=== PATIENT | female | born 1940 | race Caucasian/White ===

== ENCOUNTER 2017-05-27 09:51 | Outpatient (RCR) | payer MEDICARE, SELFPAY ==
[2017-05-27 10:50] LABS: Prothrombin Time (Protime)PT. 21.6 SECONDS (11.7-14.9)
== END 2017-05-27 09:52 | disposition home or self-care (01) ==
LOC: LAB 09:51
DX: Z79.01 Long term (current) use of anticoagulants (principal)
CPT/HCPCS: 36415; 85610

== ENCOUNTER 2017-06-16 11:47 | Outpatient (RCR) | payer MEDICARE, SELFPAY ==
[2017-06-16 12:47] LABS: International Normalized Ratio 1.9; Prothrombin Time (Protime)PT. 20.9 SECONDS (11.7-14.9)
== END 2017-06-16 15:00 | disposition home or self-care (01) ==
LOC: LAB 11:47
DX: Z79.01 Long term (current) use of anticoagulants (principal)
CPT/HCPCS: 36415; 85610

== ENCOUNTER → 2017-08-03 08:29 | Outpatient (CLI) | payer MEDICARE, SELFPAY ==
[2017-08-03 08:45] VITALS: BP 152/79; PULSE 92; RESP 16; TEMP 36.2; O2SAT 95; BMI 32.3
[2017-08-03] MEDS: Cosyntropin 0.25 MG Vial IV (08:55)
[2017-08-03 09:07] LABS: Hematocrit 39.6 % (37-47); Hemoglobin 12.1 g/dl (12.0-15.0); Mean Corp Hgb Conc 30.6 g/gl (32-36); Mean Corpuscular Hgb 30.3 pg (27.0-32.0); Mean Corpuscular Volume 99.2 fL (81-99); Mean Platelet Vol. 9.7 fl (6.2-12.0); Platelet Count 325 K/mm3 (150-450); RBC Distribution Width CV 14.8 % (11.6-14.6); RBC Distribution Width SD 52.5 fl (35.1-43.9); Red Blood Count 3.99 M/mm3 (4.2-5.4); White Blood Count 6.9 K/mm3 (4.4-11.0)
[2017-08-03 09:08] LABS: Scan Indicated on CBC? Y/N NO
[2017-08-03 09:31] LABS: Albumin, Serum 2.9 g/dL (3.2-5.0); BUN 25 mg/dL (7-18); BUN/Creat Ratio 15.8 RATIO (10-20); Calcium,Total 8.7 mg/dL (8.5-10.1); Chloride 102 mmol/L (98-107); Creatinine, Serum 1.58 mg/dL (0.55-1.02); EST Glomerular Filtration Rate 34 mL/min (>60); Est Glom Filt Rate - Afr Amer 41 mL/min (>60); Estimated Creatinine Clearance 33.62 ml/min; Glucose 102 mg/dL (74-106); Phosphorus 2.3 mg/dL (2.5-4.9); Potassium 3.6 mmol/L (3.5-5.1); Sodium Level 142 mmol/L (136-145)
[2017-08-03 09:56] LABS: Vitamin D,25 Hydroxy 61.7 ng/mL (29.95-100.01)
[2017-08-03 10:56] LABS: Protein, Urine (Random) 30.7 mg/dL (<11.9); Protein:Creat Ratio 98 mg/g CRE (0-200)
== END ==
PROVIDERS: Internal Medicine Nephrology; Visit Provider Internal Medicine Endocrinology, Diabetes & Metabolism
DX: E27.40 Unspecified adrenocortical insufficiency (principal); N18.3 Chronic kidney disease, stage 3 (moderate); E55.9 Vitamin D deficiency, unspecified
CPT/HCPCS: 96374; 80069; 82306; 82533; 82570; 83970; 84156; 85027; A4216; J0834

== ENCOUNTER 2017-08-24 07:53 | Emergency (ER) | payer MEDICARE, SELFPAY ==
[2017-08-24] VITALS (7 sets, daily range): BP systolic 130–167; BP diastolic 64–91; PULSE 128–134; RESP 17–30; TEMP 37.3–37.9; O2SAT 94–97; BMI 31.8
--- NOTE | 2017-08-24 08:22 | CT_ITS ---
STUDY: CT ABDOMEN AND PELVIS WITH CONTRAST REASON FOR EXAM: Female, 77 years old. Diffuse abdominal pain. RADIATION DOSAGE (If Supplied By Facility): CTDIvol = ( 11.92 ) mGy, DLP = ( 889.99 ) mGycm TECHNIQUE: Transaxial images were obtained from the dome of the diaphragm to the symphysis pubis without oral contrast. 80ML ml of Isovue 300 contrast was administered. Sagittal and coronal images were reconstructed. Individualized dose optimization techniques were used for this CT. COMPARISON: Comparison is made with prior study dated December 29, 2016. FINDINGS: Mild degree of increased markings at the lung bases suggestive of a bibasilar atelectasis. Coronary artery calcification. Normal liver. Normal gallbladder and extrahepatic biliary system. Normal spleen. 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 Normal pancreas. Normal bilateral adrenal glands. 3 mm nonobstructive calculus in the lower pole calyx of the right kidney. Normal left kidney. Normal visualized stomach. Normal small intestine. There is evidence of sigmoid diverticulosis. Small amount of free intraperitoneal air. There is also evidence of air in the subcutaneous tissues along the lower anterior abdominal wall. There is evidence of a 8 cm x 6.9 cm x 8 cm inhomogeneous collection of soft tissue density and air in the central pelvis. This is adjacent to the sigmoid colon. Perforated diverticulitis or carcinoma should be ruled out. The small amount of air is also seen within the anterior aspect of the urinary bladder. A colovesical fistula should be ruled out. The appendix is visualized and appears normal. There is diffuse atherosclerotic calcification of the abdominal aorta and its major visceral branches, without a demonstrated aneurysm. Normal inferior vena cava. Normal retroperitoneum. Normal urinary bladder. Normal abdominal wall. Prior right total hip replacement. Prior fusion at the L4-L5 level with multilevel disc space narrowing and degeneration. There is straightening of the normal lumbar lordosis. CT/Abdomen/Pelvis WITH Contrast IMPRESSION: Small amount of free air in the peritoneal cavity as well as within the deep subcutaneous tissues overlying the lower anterior abdominal wall. 8 cm x 6.9 cm x 8 cm inhomogeneous collection of soft tissue air in the central pelvis. Abscess from locally bowel perforation should be ruled out. A small amount of air is seen in the anterior aspect of the urinary bladder suggestive of a colovesical fistula. Electronically Signed: Adin Lara MD at 10:44 EDT Tel [phone], Service support ,
--- NOTE | 2017-08-24 08:24 | RAD_ITS ---
STUDY: X-RAY - LEFT FOOT CLINICAL: Female, 77 years old. Pain. TECHNIQUE: view(s) of the foot. COMPARISON: None. FINDINGS: There is an enthesophyte involving the posterior superior calcaneus at the site of insertion of the Achilles tendon. Small plantar spur. Normal visualized subtalar, talonavicular, calcaneocuboid, tarsal and tarsometatarsal articulations. Normal metatarsi. There is degenerative arthrosis of the metatarsophalangeal joint of the hallux with a hallux valgus deformity. There is a bipartite tibial sesamoid. Normal interphalangeal joint of the great toe. Normal phalanges of the great toe. Normal second through fifth metatarsophalangeal joints. Normal interphalangeal joints and phalanges of the lesser toes. The soft tissue structures are unremarkable. RAD/Foot min 3 Views IMPRESSION: Hallux valgus deformity. Electronically Signed: Adin Lara MD at 10:45 EDT Tel [phone], Service support ,
--- NOTE | 2017-08-24 08:24 | EKG12_ITS ---
Test Reason : ABD PAIN Blood Pressure : / mmHG Vent. Rate : 127 BPM Atrial Rate : 127 BPM P-R Int : 128 ms QRS Dur : 080 ms QT Int : 312 ms P-R-T Axes : 050 -43 061 degrees QTc Int : 453 ms Sinus tachycardia with occasional Premature ventricular complexes Left axis deviation Abnormal ECG Confirmed by CLAIRE MIN, JAYESH ([id number]), associate editor BALJINDER DAMON ([id number] on 08/26/2017 11:31:51 AM Referred By: DORIS Confirmed By:JAYESH RANGEL MD
--- NOTE | 2017-08-24 08:28 | ED.DCSUM_ITS ---
- ER Visit Summary Date of Service: 08/24/17 Chief Complaint: Multiple complaints History of Present Illness: The patient is a 77 F who presents with multiple complaints. She states she began with gout 5 days ago. She states that she also has a history of rheumatoid arthritis. She states that she had a sharp pain in the top of her left foot which radiated up her left leg. She began to have chills late that night. She then had a fever of 101 on Tuesday, 4 days ago. She also developed diffuse nonfocal abdominal pain. She reports nausea without vomiting. She denies diarrhea. She also complains of congestion and cough. She denies chest pain or shortness of breath. She has been taking Anacin for pain. She is also on warfarin. She is very concerned that she has internal bleeding. However she denies any hematemesis hematochezia bright red blood per rectum or melena. She is just concerned that this may be the cause of her pain given that she is on anticoagulation. She has a history of a hernia repair but no other abdominal surgeries. Physical Examination: Temperature 99.2 heart rate 128 afebrile Patient resting comfortably in no distress Moist mucous membranes Heart regular rhythm tachycardia I do not appreciate murmur gallop or rub Lungs are clear I do not appreciate rales rhonchi or wheezes The abdomen is soft nondistended but she does have diffuse abdominal tenderness no guarding no rebound Patient has tenderness of the left foot I do not appreciate any erythema there is no soft tissue swelling no physical findings suggestive of gout her calf is soft and nontender she has an easily palpable dorsalis pedis pulse with brisk capillary refill and normal sensation to light touch Test Results: KG shows sinus rhythm at a rate of 127. Laboratory studies notable for white blood cell count 15.9. Lactic acid is normal. Chest x-ray shows no acute process. Foot x-ray shows a hallux valgus deformity no acute abnormality. CT the abdomen and pelvis does show free air with subcutaneous air in the lower anterior abdominal wall as well as an 8 x 6.9 x 8 cm soft tissue collection with air possible abscess from local bowel perforation. There is also a small amount of air in the bladder which is concerning for possible colovesicular fistula. Emergency Department Course and Treatment: Was treated with IV fluids. She was given IV Phenergan. She did not want any opiate analgesics. On recheck she was having chills and repeat temperature was 100.3. The Zosyn was ordered. Although she reports Augmentin allergy her reaction was just nausea. She never had any rash breathing difficulty or waxes. She requested transfer to [place]. I spoke to [facility] transfer line and the patient will be transferred to that facility ER to ER for surgical evaluation Treatment Plan: [] Disposition: Transfer Impression: Intra-abdominal free air Possible intra-abdominal abscess Systemic inflammatory response syndrome This note was generated with [employer] dictation software. It may contain incorrect words, spelling, and punctuation that were not noted in review of the chart prior to signing ED Disposition - Plan for ED Patient: Chief Complaint: Abd Pain Referrals: [facility] Doctor,Out of [Primary Care Provider] -
[2017-08-24 08:32] LABS: Absolute Lymphocyte Count 1.23 X10^3/ul (0.83-4.51); Absolute Neutrophil Count 13.7 X10^3/uL (2.0-7.7); Basophil# 0.01 X10^3/uL; Basophil% 0.1 % (0-1); Eosinophil# 0.07 X10^3/uL; Eosinophils% 0.4 % (0-5); Hematocrit 36.8 % (37-47); Hemoglobin 11.2 g/dl (12.0-15.0); Lymphocyte # 1.23 X10^3/ul (4.0); Lymphocyte % 7.7 % (19-41); Mean Corp Hgb Conc 30.4 g/gl (32-36); Mean Corpuscular Volume 95.3 fL (81-99); Mean Platelet Vol. 9.3 fl (6.2-12.0); Monocyte% 5.6 % (0-10); Neutrophil # 13.69 X10^3/uL (2.7-7.7); POSITIVE COUNT NO; POSITIVE DIFFERENTIAL NO; POSITIVE MORPHOLOGY NO; Platelet Count 372 K/mm3 (150-450); RBC Distribution Width CV 15.3 % (11.6-14.6); RBC Distribution Width SD 53.3 fl (35.1-43.9); Red Blood Count 3.86 M/mm3 (4.2-5.4); White Blood Count 15.9 K/mm3 (4.4-11.0)
[2017-08-24 08:47] LABS: ALB/GLOB Ratio 0.4 RATIO (0.9-2.4); AST(SGOT) 31 U/L (15-37); Alanine Aminotransfer ALT/SGPT 49 U/L (13-56); Alkaline Phosphatase 173 U/L (45-117); Anion Gap 8 (5-15); BUN 34 mg/dL (7-18); BUN/Creat Ratio 23.6 RATIO (10-20); Calcium,Total 8.3 mg/dL (8.5-10.1); Chloride 106 mmol/L (98-107); Creatinine, Serum 1.44 mg/dL (0.55-1.02); EST Glomerular Filtration Rate 37 mL/min (>60); Est Glom Filt Rate - Afr Amer 45 mL/min (>60); Estimated Creatinine Clearance 36.43 ml/min; Globulin 4.6 g/dL (2.2-4.2); Glucose 91 mg/dL (74-106); Lipase 105 U/L (73-393); Potassium 3.3 mmol/L (3.5-5.1); Protein, Total 6.6 g/dL (6.4-8.2); Sodium Level 142 mmol/L (136-145)
[2017-08-24] MEDS: 0.9% Normal Saline 1,000 ML 1000 ML IV (09:10)
[2017-08-24] MEDS: proMETHazine 25 MG/ML Syringe 6.25 MG IV (09:11)
[2017-08-24 09:17] LABS: Lactic Acid 1.6 mmol/L (0.4-2.0)
--- NOTE | 2017-08-24 10:06 | CASEMGMT ---
Social Work Note SW in to complete initial assessment with the pt as she is a probable admission. Introduced self and role at [facility]. The pt reports to live alone in a one-story home with 1 step for entry out front and a ramp for entry from the garage. Denies access issues and DME consists of a walker, cane and wheel chair. Pt is independent with her ADL's and still drives. Denies having HHC. Denies substance abuse or mental health hx. States she does have a living will and HCPOA and that her son is her HCPOA. Son lives in [place]. Unable to bring in LW or HCPOA at this time. Denies anticipated needs at discharge. Pt made aware that RN CM will follow on floor if admitted. Jodi Mehta, MUSICAL STRING MAKER, SAP BW CONSULTANT
--- NOTE | 2017-08-24 10:26 | RAD_ITS ---
STUDY: X-RAY CHEST REASON FOR EXAM: Female, 77 years old. Cough. Abdominal pain. TECHNIQUE: AP and lateral views of the chest. COMPARISON: Comparison is made with prior study dated March 08, 2014. FINDINGS: Scattered calcified granulomas. There is no demonstrated pleural abnormality. Normal size heart. Normal mediastinum and kina. Normal visualized pulmonary arteries. There is atherosclerotic tortuosity of the aortic arch and descending thoracic aorta. Normal visualized thoracic spine. There is degenerative osteoarthritis of the bilateral shoulders. There is no demonstrated abnormality of the visualized soft tissue structures of the upper abdomen. RAD/Chest PA and Lateral IMPRESSION: No acute abnormality is seen. Electronically Signed: Adin Lara MD at 10:46 EDT Tel [phone], Service support ,
--- NOTE | 2017-08-24 11:06 | NURSING ---
CALLED [facility]
--- NOTE | 2017-08-24 11:18 | NURSING ---
[facility] ER REPORT [phone] CARMONA, SURGEON
[2017-08-24 11:21] LABS: International Normalized Ratio 2.3; Prothrombin Time (Protime)PT. 25.7 SECONDS (11.7-14.9)
[2017-08-24] MEDS: Ondansetron 4 MG/2 ML Vial IV (12:09)
--- NOTE | 2017-08-24 12:11 | NURSING ---
CALLED [facility] FOR TRANSORT
--- NOTE | 2017-08-24 12:38 | ED.RN ---
1230[facility] care here for transport to [facility]. Report given. Saran completed and care transferred to crew. NO change in patient status.
== END 2017-08-24 12:42 | disposition short-term general hospital (02) ==
PROVIDERS: Emergency Provider Emergency Medicine
DX: K66.8 Other specified disorders of peritoneum (principal); R65.10 Systemic inflammatory response syndrome (SIRS) of non-infectious origin without acute organ dysfunction; M06.9 Rheumatoid arthritis, unspecified; E27.40 Unspecified adrenocortical insufficiency; M20.12 Hallux valgus (acquired), left foot; R05 Cough; K21.9 Gastro-esophageal reflux disease without esophagitis; Z86.718 Personal history of other venous thrombosis and embolism; Z79.01 Long term (current) use of anticoagulants; Z79.899 Other long term (current) drug therapy
CPT/HCPCS: 36415; 71046; 73630; 74177; 80053; 83605; 83690; 85025; 85610; 87040; 93005; 96361; 96365; 96375; 99284; J7050; Q9967; A4216; J2405

== ENCOUNTER 2017-09-04 22:32 | Emergency (ER) | payer MEDICARE, SELFPAY ==
[2017-09-04 22:34] VITALS: BP 113/74; PULSE 144; RESP 14; TEMP 37; O2SAT 98; BMI 31.8
[2017-09-05] MEDS: 0.9% Normal Saline 1,000 ML 1000 ML IV (00:12)
[2017-09-05 00:13] LABS: Prothrombin Time (Protime)PT. 57.3 SECONDS (11.7-14.9)
[2017-09-05 00:15] LABS: Absolute Lymphocyte Count 1.54 X10^3/ul (0.83-4.51); Absolute Neutrophil Count 16.9 X10^3/uL (2.0-7.7); Basophil% 0.2 % (0-1); Eosinophil# 0.04 X10^3/uL; Eosinophils% 0.2 % (0-5); Hematocrit 30.3 % (37-47); Hemoglobin 9.5 g/dl (12.0-15.0); Lymphocyte # 1.54 X10^3/ul (4.0); Lymphocyte % 7.7 % (19-41); Mean Corp Hgb Conc 31.4 g/gl (32-36); Mean Corpuscular Hgb 30.1 pg (27.0-32.0); Mean Corpuscular Volume 95.9 fL (81-99); Mean Platelet Vol. 9.4 fl (6.2-12.0); Monocyte# 1.24 X10^3/uL; Monocyte% 6.2 % (0-10); Neutrophil # 16.92 X10^3/uL (2.7-7.7); Neutrophil % 85.1 % (47-70); POSITIVE COUNT NO; POSITIVE DIFFERENTIAL NO; POSITIVE MORPHOLOGY NO; Platelet Count 462 K/mm3 (150-450); RBC Distribution Width SD 52.8 fl (35.1-43.9); Red Blood Count 3.16 M/mm3 (4.2-5.4); White Blood Count 19.9 K/mm3 (4.4-11.0)
[2017-09-05 00:16] LABS: Basophil# 0.03 X10^3/uL
[2017-09-05] MEDS: morphine (oral solution) 10MG/0.5ML Syringe 10 MG PO ×2 (00:17→02:33)
[2017-09-05 00:18] LABS: International Normalized Ratio 6.5
--- NOTE | 2017-09-05 00:26 | ED.RN ---
Addendum entered by Cailin Hare 09/05/17 00:28: dr. garcia made aware. Original Note: lab called to report INR 6.5, Dr. Garcia.
[2017-09-05 00:29] LABS: ALB/GLOB Ratio 0.6 RATIO (0.9-2.4); AST(SGOT) 12 U/L (15-37); Alanine Aminotransfer ALT/SGPT 11 U/L (13-56); Albumin, Serum 1.8 g/dL (3.2-5.0); Alkaline Phosphatase 43 U/L (45-117); Anion Gap 11 (5-15); BUN 40 mg/dL (7-18); BUN/Creat Ratio 27.8 RATIO (10-20); Calcium,Total 7.8 mg/dL (8.5-10.1); Chloride 104 mmol/L (98-107); Creatinine, Serum 1.44 mg/dL (0.55-1.02); EST Glomerular Filtration Rate 37 mL/min (>60); Est Glom Filt Rate - Afr Amer 45 mL/min (>60); Estimated Creatinine Clearance 36.38 ml/min; Globulin 3.1 g/dL (2.2-4.2); Glucose 133 mg/dL (74-106); Protein, Total 4.9 g/dL (6.4-8.2); Sodium Level 142 mmol/L (136-145)
--- NOTE | 2017-09-05 00:45 | ED.VISSUMM ---
- ER Visit Summary Date of Service: 09/05/17 Chief Complaint: [] Upper and lower GI bleed History of Present Illness: The patient is a 77 F [] is a hospice patient who presents with upper and lower GI bleed. Hospice PLATE SHEAR OPERATOR is at the bedside reports that she was at the patient's residence when she had a significant bout of hematemesis measuring several 100 cc. This nurse also reports some lower GI bleeding. Patient reportedly had a bowel perforation approximately 10 days ago and patient refused surgery and was subsequently placed on hospice. She also reports at that time she was septic. Patient reportedly continues to take Coumadin despite previous suggestion from physicians to discontinue this. She was previously taking this for a history of CVA. She is refusing medical treatment other than vitamin K and analgesia. She is requesting vitamin K to reverse her Coumadin and she reports she wishes to discontinue Coumadin at this point in her life. She denies chest pain, shortness of breath, abdominal pain. Reports mild abdominal cramping. Physical Examination: [] She is hypotensive in the 90s systolic upon arrival. Heart rate was in the 140s. 77-year-old female no acute distress. Cardiovascular exam is tachycardic with regular rhythm. Lungs are clear to auscultation. Abdomen is soft and nontender. No lower extremity edema. Test Results: [] White blood cell count elevated 19.9. Hemoglobin 9.5. INR measured 6.5. BUN and creatinine measured 40 and 1.49, respectively. Patient refused further testing. Emergency Department Course and Treatment: [] Patient given a 1 L normal saline bolus which improved the heart rate from the 140s to the low 100s. Patient on serial exam did request oral morphine for which she takes at home and was provided 10 mg orally. With her INR measuring 6.5 and her desire to discontinue Coumadin indefinitely, I provided 10 mg of vitamin K intravenously. On final serial exam patient had improvement of symptoms and was requesting discharge and to remain under the care of hospice. Treatment Plan: [] Reverse elevated INR and discharge in the care of hospice. Disposition: [] Discharge, stable. Impression: [] Elevated INR Upper GI bleed Lower GI bleed Vomiting DNR-POSTPARTUM RN This note was generated with [employer] dictation software. It may contain incorrect words, spelling, and punctuation that were not noted in review of the chart prior to signing ED Disposition - Plan for ED Patient: Chief Complaint: GI Bleed Referrals: [facility] Doctor,Out of [Primary Care Provider] -
--- NOTE | 2017-09-05 00:50 | ED.DCSUM_ITS ---
- ER Visit Summary Date of Service: 09/05/17 Chief Complaint: [] Upper and lower GI bleed History of Present Illness: The patient is a 77 F [] is a hospice patient who presents with upper and lower GI bleed. Hospice FLUID DESIGNER is at the bedside reports that she was at the patient's residence when she had a significant bout of hematemesis measuring several 100 cc. This nurse also reports some lower GI bleeding. Patient reportedly had a bowel perforation approximately 10 days ago and patient refused surgery and was subsequently placed on hospice. She also reports at that time she was septic. Patient reportedly continues to take Coumadin despite previous suggestion from physicians to discontinue this. She was previously taking this for a history of CVA. She is refusing medical treatment other than vitamin K and analgesia. She is requesting vitamin K to reverse her Coumadin and she reports she wishes to discontinue Coumadin at this point in her life. She denies chest pain, shortness of breath, abdominal pain. Reports mild abdominal cramping. Physical Examination: [] She is hypotensive in the 90s systolic upon arrival. Heart rate was in the 140s. 77-year-old female no acute distress. Cardiovascular exam is tachycardic with regular rhythm. Lungs are clear to auscultation. Abdomen is soft and nontender. No lower extremity edema. Test Results: [] White blood cell count elevated 19.9. Hemoglobin 9.5. INR measured 6.5. BUN and creatinine measured 40 and 1.49, respectively. Patient refused further testing. Emergency Department Course and Treatment: [] Patient given a 1 L normal saline bolus which improved the heart rate from the 140s to the low 100s. Patient on serial exam did request oral morphine for which she takes at home and was provided 10 mg orally. With her INR measuring 6.5 and her desire to discontinue Coumadin indefinitely, I provided 10 mg of vitamin K intravenously. On final serial exam patient had improvement of symptoms and was requesting discharge and to remain under the care of hospice. Treatment Plan: [] Reverse elevated INR and discharge in the care of hospice. Disposition: [] Discharge, stable. Impression: [] Elevated INR Upper GI bleed Lower GI bleed Vomiting DNR-ENVIRONMENTAL PROTECTION SPECIALIST This note was generated with [employer] dictation software. It may contain incorrect words, spelling, and punctuation that were not noted in review of the chart prior to signing ED Disposition - Plan for ED Patient: Chief Complaint: GI Bleed Referrals: [facility] Doctor,Out of [Primary Care Provider] -
--- NOTE | 2017-09-05 01:43 | ED.DEP ---
ED Disposition - Plan for ED Patient: Disposition: Home or Assisted Living Chief Complaint: GI Bleed Instructions: ED Bleed UGI Stable, Taking?Coumadin Referrals: [facility] Doctor,Out of [Primary Care Provider] -
[2017-09-05 02:37] VITALS: BP 103/62; PULSE 120; RESP 17; O2SAT 95
--- NOTE | 2017-09-05 02:38 | ED.RN ---
DISCHARGE INSTRUCTIONS GIVEN TO AMBULANCE CREW. PT TO INPATIENT HOSPICE FACILITY VIA STRETCHER, IV LEFT INTACT PER NURSES REQUEST.
== END 2017-09-05 02:38 | disposition home or self-care (01) ==
PROVIDERS: Emergency Provider Emergency Medicine
DX: R79.1 Abnormal coagulation profile (principal); K92.2 Gastrointestinal hemorrhage, unspecified; K92.0 Hematemesis; K92.1 Melena; I95.9 Hypotension, unspecified; R19.7 Diarrhea, unspecified; I10 Essential (primary) hypertension; Z51.5 Encounter for palliative care; Z79.899 Other long term (current) drug therapy; Z79.01 Long term (current) use of anticoagulants; Z86.711 Personal history of pulmonary embolism; Z86.718 Personal history of other venous thrombosis and embolism; Z86.73 Personal history of transient ischemic attack (TIA), and cerebral infarction without residual deficits
CPT/HCPCS: 80053; 85025; 85610; 96361; 96365; 99285; J2405; J3490

== ENCOUNTER 2017-09-17 09:18 | Outpatient (CLI) | payer MEDICARE, SELFPAY ==
[2017-09-17] VITALS (7 sets, daily range): BP systolic 127–156; BP diastolic 69–86; PULSE 98–106; RESP 16–18; TEMP 36.6–37.2; O2SAT 98–100; BMI 31.8
[2017-09-17] MEDS: 0.9% NaCl Peripheral Flush Adult/Peds IV ×2 (11:26→13:41)
[2017-09-17] MEDS: Furosemide 20 MG/2 ML VIAL IV (13:41)
== END 2017-09-17 17:10 | disposition skilled nursing facility (03) ==
LOC: MEDOUTP 09:20 → PCU 09:20
PROVIDERS: Visit Provider Nurse Practitioner Adult Health
DX: D64.9 Anemia, unspecified (principal)
CPT/HCPCS: 86850; 86900; 86920; 86922; P9016; A4216; J1940

== ENCOUNTER 2017-09-18 17:33 | Inpatient (IN) | payer MEDICARE, SELFPAY ==
[2017-09-18] VITALS (9 sets, daily range): BP systolic 132–153; BP diastolic 78–92; PULSE 104–116; RESP 16–22; TEMP 36.9–37.1; O2SAT 97–99; BMI 31.8; BMI 30.6; BMI 31.9
--- NOTE | 2017-09-18 18:19 | EKG12_ITS ---
Test Reason : GENERALILLNESS Blood Pressure : / mmHG Vent. Rate : 109 BPM Atrial Rate : 109 BPM P-R Int : 116 ms QRS Dur : 076 ms QT Int : 334 ms P-R-T Axes : 001 -37 034 degrees QTc Int : 449 ms Sinus tachycardia Left axis deviation Abnormal ECG Confirmed by RICKY MIN, MARCK ([id number]), film and video editor BALJINDER DAMON ([id number]) on 09/21/2017 1:30:15 PM Referred By: MAXI Confirmed By:MARCK GARCÍA MD
--- NOTE | 2017-09-18 18:23 | ED.DCSUM_ITS ---
- ER Visit Summary Date of Service: 09/18/17 Chief Complaint: Bilateral lower extremity DVT History of Present Illness: The patient is a 77 F presented with bilateral lower extremity DVT. This was found on outpatient ultrasound today. She currently lives in assisted living in the nurse practitioner there ordered an ultrasound of her legs due to leg pain. She denies chest pain or shortness of breath. Ultrasound shows acute left lower extremity DVT involving the left common femoral through calf veins, acute right lower extremity DVT involving the right common, distal and profunda femoral, and popliteal veins. Patient has a history of previous DVT with PE. She was previously on Coumadin. On August 24 she sustained a perforated bowel and was septic. She was at [facility] at the time. She declined surgery and went home. 2 weeks later she developed an upper GI bleed. At that time she was in hospice and her Coumadin was stopped. She has been doing well and was discharged and is no longer in hospice. She received 2 units of blood yesterday secondary to generalized weakness. Physical Examination: Vitals are stable. Patient is afebrile. Alert no acute distress. HEENT exam is unremarkable. Neck is supple. Lungs are clear and equal bilaterally. Heart is regular and tachycardic Abdomen is soft nontender nondistended. Extremities symmetric edema, normal distal pulses Skin is warm and dry. No focal neurologic deficit. Remainder of exam is unremarkable. Emergency Department Course and Treatment: EKG is sinus tachycardia rate of 109. CBC shows a hemoglobin of 10.2. Chemistries show creatinine 1.28. INR is 1.2. Troponin is negative. She is given IV fluids. CTA chest shows acute segmental pulmonary emboli in the right upper and lower lobes. Acute subsegmental pulmonary emboli in the lingula and left lower lobe. She was started on a heparin drip. Discussed with the hospitalist for admission. Disposition: Admission Impression: Bilateral pulmonary embolism, bilateral lower extremity DVT This note was generated with [employer] dictation software. It may contain incorrect words, spelling, and punctuation that were not noted in review of the chart prior to signing ED Disposition - Plan for ED Patient: Chief Complaint: General Illness Referrals: [facility] Doctor,Out of [Primary Care Provider] -
[2017-09-18 18:54] LABS: Prothrombin Time (Protime)PT. 14.9 SECONDS (11.7-14.9)
[2017-09-18 19:03] LABS: Absolute Lymphocyte Count 0.58 X10^3/ul (0.83-4.51); Hematocrit 32.7 % (37-47); Hemoglobin 10.2 g/dl (12.0-15.0); Lymphocyte # 0.58 X10^3/ul (4.0); Lymphocyte % 6.2 % (19-41); Mean Corp Hgb Conc 31.2 g/gl (32-36); Mean Corpuscular Hgb 29.5 pg (27.0-32.0); Mean Corpuscular Volume 94.5 fL (81-99); Mean Platelet Vol. 8.8 fl (6.2-12.0); Monocyte# 0.71 X10^3/uL; Monocyte% 7.6 % (0-10); Neutrophil # 8.01 X10^3/uL (2.7-7.7); Neutrophil % 85.9 % (47-70); Platelet Count 230 K/mm3 (150-450); RBC Distribution Width CV 18.2 % (11.6-14.6); RBC Distribution Width SD 60.6 fl (35.1-43.9); Red Blood Count 3.46 M/mm3 (4.2-5.4); White Blood Count 9.3 K/mm3 (4.4-11.0)
[2017-09-18 19:13] LABS: Differential Indicated SCAN CRITERIA MET; POSITIVE COUNT NO; POSITIVE DIFFERENTIAL YES; POSITIVE MORPHOLOGY NO
[2017-09-18 19:14] LABS: Anion Gap 8 (5-15); BUN 15 mg/dL (7-18); BUN/Creat Ratio 11.7 RATIO (10-20); Calcium,Total 8.5 mg/dL (8.5-10.1); Chloride 107 mmol/L (98-107); Creatinine, Serum 1.28 mg/dL (0.55-1.02); EST Glomerular Filtration Rate 43 mL/min (>60); Est Glom Filt Rate - Afr Amer 52 mL/min (>60); Estimated Creatinine Clearance 40.98 ml/min; Glucose 116 mg/dL (74-106); Potassium 4.6 mmol/L (3.5-5.1); Sodium Level 143 mmol/L (136-145)
[2017-09-18 19:15] LABS: International Normalized Ratio 1.2
[2017-09-18 19:16] LABS: Partial Thromboplast Time 20.3 Seconds (24.1-36.2)
[2017-09-18 19:35] LABS: Differential Comment SCANNED
--- NOTE | 2017-09-18 19:40 | CT_ITS ---
STUDY: CTA CHEST REASON FOR EXAM: Female, 77 years old. DVT. Evaluate for pulmonary embolus. RADIATION DOSAGE (If Supplied By Facility): CTDIvol = ( 5.63 ) mGy, DLP = ( 194.22 ) mGycm TECHNIQUE: The examination was performed with the intravenous administration of 100 ml of Isovue 370 contrast material. Post-processing of the angiographic images was performed, with multiplanar reformation and 3D reconstruction. Individualized dose optimization techniques were used for this CT. COMPARISON: 01/05/2014 FINDINGS: There are no pulmonary infiltrates or pleural effusions. There is no pneumothorax. There are acute segmental pulmonary emboli in the right upper and lower lobes. There are subsegmental pulmonary emboli in the lingula and left lower lobe. There is no evidence of thoracic aortic aneurysm or dissection. The heart and pericardium are within normal limits. There is no thoracic lymphadenopathy. There are no destructive osseous lesions. CT/CTA Chest W/WO Contrast IMPRESSION: Acute segmental pulmonary emboli in the right upper and lower lobes Acute subsegmental pulmonary emboli in the lingula and left lower lobe. Clear lungs. N.B. : The above information has been verbally conveyed by Obey Davenport to Dr. Meme Echevarria, Referring Physician, on 09/18/2017 20:37:55 (ET). Electronically Signed: Obey Davenport, at 20:30 EDT Tel , Service support , N.B. : The above information has been verbally conveyed by Obey Davenport to Dr. Meme Echevarria, Referring Physician, on 09/18/2017 20:37:55 (ET).
[2017-09-18] MEDS: 0.9% Normal Saline 1,000 ML 999 ML IV (21:09)
[2017-09-18] MEDS: Enoxaparin 80 MG/0.8 ML Syringe 70 MG SC (21:36)
--- NOTE | 2017-09-18 21:40 | HP.PCM_ITS ---
Problem List (1) History of bowel perforation Status: Chronic (2) History of GI bleed Status: Chronic (3) History of pulmonary embolism Status: Chronic (4) Chronic anemia Status: Chronic (5) Stage III chronic kidney disease Status: Chronic (6) Addisons disease Status: Chronic History of Present Illness Date of Admission: 09/18/17 Chief Complaint: Bilateral leg pain/ache, dry cough. The patient is a 77 year old F with past medical history as mentioned above presented to the emergency room from the assisted living because she was found to have acute bilateral lower extremity DVT on venous Doppler that was done today for bilateral leg pain and ache. The patient mentioned that she has been having bilateral leg pain that has been going on for few days, described as constant ache, 3-4 out of 10 in severity, more on the right leg behind right knee, no aggravating or relieving factors and no associated symptoms. The patient is bedridden for the last month because she had recent history of bowel perforation for which she was sent to [facility] and she refused to go for surgery. During that admission, she had upper and lower GI bleed as she has been on Coumadin which was discontinued. Since that time, she has been bedridden most of her time and not ambulating. She had a history of pulmonary embolism 2 and half years ago and she has been on Coumadin since that time which was discontinued with few weeks ago because of upper and lower GI bleed. She never had upper endoscopy or colonoscopy for the GI bleed. Yesterday, she received blood transfusion 2 units and she felt better in terms of her strength and ambulation and she was able to ambulate with assistance. 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 She has history of arthritis and chronic back pain and she has been using diclofenac for arthritic pain. In the emergency department, she was tachycardic , afebrile, blood pressure was slightly elevated and her pulse ox was maintained on room air. Routine blood work is remarkable for hemoglobin of 10.2 g/dL, creatinine of 1.28. Her troponin is negative. Pro time and INR were normal. EKG revealed normal sinus rhythm without evidence of acute ischemic changes. CTA chest revealed right upper and lower lobe segmental pulmonary emboli, left lower lobe and lingula segmental luminary emboli as well. She is being admitted for acute bilateral lower extremity DVT and acute bilateral pulmonary emboli. Past Medical History Past Medical History (Chronic Problems): Chronic Problems History of bowel perforation (Chronic) History of GI bleed (Chronic) History of pulmonary embolism (Chronic) Chronic anemia (Chronic) Stage III chronic kidney disease (Chronic) Addisons disease (Chronic) Allergies amoxicillin trihydrate [From Augmentin] Adverse Reaction (Verified 08/24/17 07: 55) Upset Stomach diclofenac sodium [From Arthrotec] Adverse Reaction (Verified 08/24/17 07:55) Upset Stomach doxycycline Adverse Reaction (Verified 08/24/17 07:55) Upset Stomach erythromycin base Adverse Reaction (Verified 08/24/17 07:55) Upset Stomach etodolac [From Lodine] Adverse Reaction (Verified 08/24/17 07:55) Upset Stomach flurbiprofen [From Ansaid] Adverse Reaction (Verified 08/24/17 07:55) Upset Stomach misoprostol [From Arthrotec] Adverse Reaction (Verified 08/24/17 07:55) Upset Stomach NSAIDS (Non-Steroidal Anti-Inflamma Adverse Reaction (Verified 09/18/17 17:35) Other potassium clavulanate [From Augmentin] Adverse Reaction (Verified 08/24/17 07:55 ) Upset Stomach rofecoxib [From Vioxx] Adverse Reaction (Verified 08/24/17 07:55) Upset Stomach Home Medications: Ambulatory Orders Medication Instructions Recorded Fluticasone 0.05% [Flonase Nasal 1 spray NASAL DAILY 09/18/17 [place]] Loratadine [Claritin] 10 mg PO DAILY 09/18/17 Lorazepam [Ativan] 0.5 mg PO QHS 09/18/17 Omeprazole [Prilosec] 20 mg PO DAILY 09/18/17 Prednisone 5 mg PO BID 09/18/17 Surgical History: total knee arthroplasty, - - Back surgery. 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 Smoking Status: Never smoker Alcohol: None Drugs: None - *Family History Maternal History Items: No pertinent history Paternal History Items: No pertinent history Review of Systems Constitutional: Denies: Anorexia, Chills, Fever, Weakness Eyes: Denies: Blurred vision, Double vision, Drainage, Pain HEENT: Denies: Difficulty Hearing, Ear Pain, Eye Pain, Nasal Congestion, Sore Throat Cardiovascular: Reports: Edema. Denies: Chest Pain, Chest Pressure, Chest Tightness, Heaviness, Light Headedness, Orthopnea, Syncope Respiratory: Reports: Cough. Denies: Pleuritic Pain, Shortness of Breath, Sputum production, Wheezing Gastrointestinal: Denies: Abdominal Pain, Constipation, Diarrhea, Nausea, Vomiting Genitourinary: Denies: Dysuria, Frequency, Hematuria Musculoskeletal: Reports: Leg Pain. Denies: Arm Pain, Back Pain, Foot Pain Skin: Denies: Dryness, Rash Neurological: Denies: Balance problems, Double vision, Change in Speech, Slurred speech, Confusion, Focal weakness, Incoordination, Tingling Psychiatric: Denies: Anxiety, Depression Endocrine: Denies: Change in Body Habitus, Polydipsia VTE Information - Inpt Only VTE Present on Admission: No VTE Mechan Device Prophylaxis: None VTE Pharm Prophylaxis ordered?: No - Physical Exam General: Alert, Oriented x3, Cooperative, No apparent distress HEENT: Atraumatic, PERRLA, EOMI Oral: Moist Mucosa, No Gingival or Mucosal Lesions/ Ulcerations Neck: Supple, No JVD, Negative Carotid Bruits, Trachea Midline, Thyroid Normal Size and Texture Lungs: Clear to auscultation, No rhonchi, No wheeze, No rales, Diminished Cardiovascular: Regular rate, Regular Rhythm, Normal S1, Normal S2, No murmurs, PMI Normal, Tachycardic Abdomen: Bowel Sounds Present, Soft, Non Tender, Non-Distended, No Hepato- splenomegaly Extremities: No clubbing, No cyanosis, Edema - Nonpitting edema, stasis dermatitis. Skin: No rashes, No breakdown Lymphatic: No Cervical, Supraclavicular, or Inguinal Adenopathy Neurological: Cranial nerves II-XII grossly intact, Motor Exam 5/5 strength throughout Psych/Mental Status: Normal Affect, Appropriate, Alert and oriented to time, place, person, mood and affect Vital Signs Temp Pulse Resp BP Pulse Ox 98.8 F 110 H 22 H 153/81 H 98 09/18/17 17:36 09/18/17 21:21 09/18/17 21:21 09/18/17 21:21 09/18/17 21:21 Oxygen Delivery Method Room Air Weight: 158 lb Body Mass Index (BMI) 31.8 Laboratory Tests Past 24 Hrs 09/18/17 09/18/17 09/18/17 18:40 18:40 18:40 WBC 9.3 RBC 3.46 L Hgb 10.2 L Hct 32.7 L MCV 94.5 MCH 29.5 MCHC 31.2 L RDW 18.2 H RDW Differential 60.6 H Plt Count 230 MPV 8.8 Immature Gran % (Auto) 0.300 Neut % (Auto) 85.9 H Lymph % (Auto) 6.2 L [place] % (Auto) 7.6 Eos % (Auto) 0.0 Baso % (Auto) 0.0 Absolute Neuts (auto) 8.0 H Absolute Lymphs (auto) 0.58 L Total Counted Not Reportable Differential Comment SCANNED PT 14.9 INR 1.2 APTT 20.3 L Sodium 143 Potassium 4.6 Chloride 107 Carbon Dioxide 28.0 Anion Gap 8 BUN 15 Creatinine 1.28 H Estim Creat Clear Calc 40.98 Est GFR (MDRD) Af Amer 52 L Est GFR (MDRD) Non-Af 43 L BUN/Creatinine Ratio 11.7 Glucose 116 H Calcium 8.5 Troponin I < 0.02 Clinical Impression(s) from Imaging Studies Chest CTA 09/18/17 19:40 IMPRESSION: Acute segmental pulmonary emboli in the right upper and lower lobes Acute subsegmental pulmonary emboli in the lingula and left lower lobe. Clear lungs. N.B. : The above information has been verbally conveyed by Obey Davenport to Dr. Meme Echevarria, Referring Physician, on 09/18/2017 20:37:55 (ET). Electronically Signed: Obey Davenport, at 20:30 EDT Tel , Service support , N.B. : The above information has been verbally conveyed by Obey Davenport to Dr. Meme Echevarria, Referring Physician, on 09/18/2017 20:37:55 (ET). Assessment/Plan This is a 77 years old female patient who lives at the assisted living, found to have acute bilateral lower extremity DVT on venous Doppler that was done for bilateral leg pain and ache and also she was found to have acute bilateral pulmonary emboli on CTA chest that was done in the emergency department and she is being admitted for treatment. #1 acute bilateral lower extremity DVT: Venous Doppler that was done at the [facility] revealed extensive bilateral DVTs as reported by ER physician. Patient was on Coumadin for history of PE but was discontinued a few weeks ago because of recent history of upper and lower GI bleed. Her INR is 1.2. This is considered provoked DVT and PE secondary to sedentary life, patient has been nonambulatory for the last month. Plan: Admit to PCU, cardiac monitoring, start therapeutic Lovenox twice daily, IV fluids, Tylenol as needed, repeat CBC and BMP tomorrow morning. At this time, I think patient should continue on Lovenox treatment for PE and DVT rather started her back on Coumadin or starting her on the new anticoagulants such as Eliquis or Xarelto because of recent history of significant GI bleed. #2 acute bilateral segmental pulmonary emboli: CTA chest revealed acute segmental PEs in the right upper and lower lobes as well as acute subsegmental PEs in the lingula and left lower lobe. Plan to start her on Lovenox twice daily as above. She did have a history of PE 2 years ago and she was on Coumadin that was discontinued as mentioned above. #3 recent history of bowel perforation: This is happened 3 weeks ago, was sent to [facility] but patient refused surgery. She did follow some kind of Polish trial for spontaneous healing of bone perforation that she red on the Internet. She remained bedridden for the last 30 days with very minimal ambulation and she remained on clear liquids and later on soft mechanical diet. She started eating some amount of solid diet on the 2 days ago and today, she had normal brown bowel movement. She has no more abdominal pain, no nausea or vomiting. Abdominal examination is benign. #4 recent history of lower and upper GI bleed: According to the patient and her daughter, she had hematemesis and hematochezia which was attributed to Coumadin and her INR was elevated. Coumadin discontinued since that time. His INR is 1.2. She has been on prednisone for more than 20 years and also she has been using diclofenac for arthritis. This would make him at risk for peptic ulcer disease gastritis. Plan to avoid NSAIDs, Protonix twice daily. #5 Toombs's disease: Continue prednisone, she follows up with endocrinology as outpatient. #6 chronic anemia: She received 2 units of packed RBCs at the assisted living today. After transfusion, she feels better in terms of her strength and ambulation. Admission hemoglobin is 10.2 g/dL. No evidence of active bleeding. Plan to repeat CBC tomorrow morning. #7 stage III chronic kidney disease: Baseline creatinine is around 1.1 up to 1.5 mg. Admission creatinine is 1.28, stable at baseline. #8 history of PE: She will be on Lovenox twice daily as above. #9 DVT prophylaxis: She will be on therapeutic Lovenox twice daily. This note was generated with [employer] dictation software. It may contain incorrect words, spelling, and punctuation that were not noted in checking the note before signing. Code Visit Inpatient E&M: 22841 Init Hosp L3
[2017-09-18] MEDS: 0.9% Normal Saline 1,000 ML 75 ML IV (22:08)
[2017-09-18] MEDS: Pantoprazole Sodium 40 MG Tablet PO (22:39)
[2017-09-18] MEDS: LORazepam 0.5 MG Tablet PO (22:39)
[2017-09-19] VITALS (12 sets, daily range): BP systolic 137–159; BP diastolic 66–99; PULSE 100–126; RESP 18; TEMP 36.7–37.2; O2SAT 95–100
[2017-09-19] MEDS: Acetaminophen 325 MG Tablet 650 MG PO ×2 (01:56→23:42)
[2017-09-19] MEDS: BENZOCAINE/MENTHOL 1 LOZENGE 2 LOZENGE MUCOUS MEM ×2 (04:14→21:17)
[2017-09-19 06:04] LABS: Absolute Lymphocyte Count 1.43 X10^3/ul (0.83-4.51); Absolute Neutrophil Count 5.8 X10^3/uL (2.0-7.7); Basophil# 0.01 X10^3/uL; Basophil% 0.1 % (0-1); Eosinophil# 0.05 X10^3/uL; Eosinophils% 0.6 % (0-5); Hematocrit 28.7 % (37-47); Hemoglobin 8.9 g/dl (12.0-15.0); International Normalized Ratio 1.3; Lymphocyte # 1.43 X10^3/ul (4.0); Lymphocyte % 17.1 % (19-41); Mean Corpuscular Hgb 29.4 pg (27.0-32.0); Mean Corpuscular Volume 94.7 fL (81-99); Mean Platelet Vol. 8.9 fl (6.2-12.0); Monocyte# 0.96 X10^3/uL; Monocyte% 11.5 % (0-10); Neutrophil # 5.84 X10^3/uL (2.7-7.7); Neutrophil % 69.9 % (47-70); Platelet Count 219 K/mm3 (150-450); Prothrombin Time (Protime)PT. 15.7 SECONDS (11.7-14.9); RBC Distribution Width CV 18.4 % (11.6-14.6); RBC Distribution Width SD 60.6 fl (35.1-43.9); Red Blood Count 3.03 M/mm3 (4.2-5.4); White Blood Count 8.4 K/mm3 (4.4-11.0)
[2017-09-19 06:11] LABS: POSITIVE COUNT NO; POSITIVE DIFFERENTIAL NO; POSITIVE MORPHOLOGY NO
[2017-09-19 06:19] LABS: Anion Gap 10 (5-15); BUN 11 mg/dL (7-18); BUN/Creat Ratio 9.9 RATIO (10-20); Calcium,Total 7.5 mg/dL (8.5-10.1); Chloride 111 mmol/L (98-107); Creatinine, Serum 1.11 mg/dL (0.55-1.02); EST Glomerular Filtration Rate 51 mL/min (>60); Est Glom Filt Rate - Afr Amer 61 mL/min (>60); Glucose 82 mg/dL (74-106); Potassium 3.2 mmol/L (3.5-5.1); Sodium Level 146 mmol/L (136-145)
[2017-09-19] MEDS: predniSONE 5 MG Tablet PO ×2 (09:09→17:45)
[2017-09-19] MEDS: Loratadine 10 MG Tablet PO (09:09)
[2017-09-19] MEDS: Fluticasone 0.05% 1 SPRAY NASAL.SRY NASAL (09:09)
[2017-09-19] MEDS: Pantoprazole Sodium 40 MG Tablet PO ×2 (09:10→21:13)
[2017-09-19] MEDS: Enoxaparin 80 MG/0.8 ML Syringe 70 MG SC ×2 (09:10→21:13)
--- NOTE | 2017-09-19 10:40 | PCM.PN.HOSP ---
Subjective: Patient has mild sinus tachycardia, heart rate 100 215/min. No fever. Bilateral lower extremity edema, worse in the left lower extremity with diffuse DVT. Patient opted scare when she was discharged after a bowel perforation but now she is moving her bowel. Denies abdominal pain. No abdominal tenderness. Vitals/I&O's: Vital Signs Temp Pulse Resp BP Pulse Ox 98.1 F 108 H 18 137/66 H 100 09/19/17 09:00 09/19/17 09:00 09/19/17 09:00 09/19/17 09:00 09/19/17 09:00 Oxygen Delivery Method Room Air Weight: 151 lb 7.321 oz Body Mass Index (BMI) 30.6 Intake and Output for Last 24 Hours 09/17/17 09/18/17 09/19/17 23:59 23:59 23:59 Intake Total 885 / 885 Output Total 400 / 400 Balance 485 / 485 General: Alert, Oriented x3, Cooperative HEENT: Atraumatic, PERRLA, EOMI, Normocephalic Neck: Supple, No JVD, Negative Carotid Bruits Lungs: No rhonchi, No wheeze, Diminished Cardiovascular: Regular rate, Normal S1, Normal S2, No murmurs, Tachycardic Abdomen: Bowel Sounds Present, Soft, Non Tender, Non-Distended Extremities: Capillary Refill Less than 3 Seconds, Edema Skin: No rashes, No breakdown, - - Multiple scar of healed skin wounds both legs. Musculoskeletal: No Tenderness to Palpation of Joints or Extremities Neurological: Cranial nerves II-XII grossly intact Psych/Mental Status: Normal Affect, Appropriate Laboratory Results 09/19/17 05:05: Sodium 146 H, Potassium 3.2 L, Chloride 111 H, Carbon Dioxide 25.0, Anion Gap 10, BUN 11, Creatinine 1.11 H, Estim Creat Clear Calc 45.30, Est GFR (MDRD) Af Amer 61, Est GFR (MDRD) Non-Af 51 L, BUN/Creatinine Ratio 9.9 L, Glucose 82, Calcium 7.5 L 09/19/17 05:05: WBC 8.4, RBC 3.03 L, Hgb 8.9 L, Hct 28.7 L, MCV 94.7, MCH 29.4, MCHC 31.0 L, RDW 18.4 H, RDW Differential 60.6 H, Plt Count 219, MPV 8.9, Immature Gran % (Auto) 0.800, Neut % (Auto) 69.9, Lymph % (Auto) 17.1 L, [place] % (Auto) 11.5 H, Eos % (Auto) 0.6, Baso % (Auto) 0.1, Absolute Neuts (auto) 5.8, Absolute Lymphs (auto) 1.43, Total Counted Not Reportable 09/19/17 05:05: PT 15.7 H, INR 1.3 Current Medications Acetaminophen (Tylenol) 650 mg PO Q6H PRN PRN PRN Reason: Mild Pain (scale 0-3)/T>100.7 Last Admin: 09/19/17 01:56 Dose: 650 mg Enoxaparin Sodium (Lovenox) 70 mg 1 mg/kg (70 mg) SC Q12 [facility] Last Admin: 09/19/17 09:10 Dose: 70 mg Fluticasone Propionate (Flonase Nasal [place]) 1 spray NASAL DAILY [facility] Last Admin: 09/19/17 09:09 Dose: 1 spray Guaifenesin/Codeine Phosphate (Robitussin Ac) 10 ml PO Q6H PRN PRN PRN Reason: COUGH Sodium Chloride () 250 mls @ 15 mls/hr IV .[id number] PRN PRN Reason: SALINE FLUSH Sodium Chloride () 1,000 mls @ 75 mls/hr IV .[id number] [facility] Last Admin: 09/18/17 22:08 Dose: 75 mls/hr Loratadine (Claritin) 10 mg PO DAILY [facility] Last Admin: 09/19/17 09:09 Dose: 10 mg Lorazepam (Ativan) 0.5 mg PO QHS [facility] Last Admin: 09/18/17 22:39 Dose: 0.5 mg Magnesium Hydroxide (Milk Of Magnesia) 30 ml PO DAILY PRN PRN Reason: Constipation Nutritional Formula (Lactose Free) (Ensure Enlive) 120 ml PO 4X/DAY [facility] Last Admin: 09/19/17 09:09 Dose: 120 ml Ondansetron HCl (Zofran) 4 mg IV Q8H PRN PRN PRN Reason: Nausea Pantoprazole Sodium (Protonix) 40 mg PO BID [facility] Last Admin: 09/19/17 09:10 Dose: 40 mg Potassium Chloride (K-Dur) 40 meq PO BIDCM [facility] Stop: 09/20/17 08:01 [facility] () [facility] Last Admin: 09/19/17 09:09 Dose: 5 mg Sodium Chloride () 5 - 30 ml IV UD PRN PRN Reason: SALINE FLUSH Throat Lozenges (Cepacol Sore Throat Lozenge) 2 lozenge MUCOUS MEM Q4H PRN PRN PRN Reason: COUGH Last Admin: 09/19/17 04:14 Dose: 2 lozenge Medical Necessity - Tobacco Use Smoking Status: Never smoker Assessment/Plan This is a 77 years old female patient who lives at the assisted living, found to have acute bilateral lower extremity DVT on venous Doppler that was done for bilateral leg pain and ache and also she was found to have acute bilateral pulmonary emboli on CTA chest that was done in the emergency department and she is being admitted for treatment. #1 acute bilateral lower extremity DVT: Venous Doppler that was done at the [facility] revealed extensive bilateral DVTs as reported by ER physician. Patient was on Coumadin for history of PE but was discontinued a few weeks ago because of recent history of upper and lower GI bleed. Her INR was 1.2. This is considered provoked DVT and PE secondary to sedentary life and probably varicose vein and nonfunctioning or valvular incompetence of the deep veins, patient has been nonambulatory for the last month. The patient was admitted on the PCU. Started on therapeutic Lovenox. In the past, she was not able to tolerate Coumadin, Eliquis or Xarelto because of history of significant GI bleed. #2 acute bilateral segmental pulmonary emboli: CTA chest revealed acute segmental PEs in the right upper and lower lobes as well as acute subsegmental PEs in the lingula and left lower lobe. She did have a history of PE 2 years ago and she was on Coumadin that was discontinued as mentioned above. #3 recent history of bowel perforation: This is happened 3 weeks ago, was sent to [facility] but patient refused surgery. Abdominal examination is benign. I think, her bowel perforation had spontaneously and is moving her bowel. #4 recent history of lower and upper GI bleed: According to the patient and her daughter, she had hematemesis and hematochezia which was attributed to Coumadin and her INR was elevated. Coumadin discontinued since that time. She has been on prednisone for more than 20 years and also she has been using diclofenac for arthritis. Plan to avoid NSAIDs, Protonix twice daily. #5 Picher's disease: Continue prednisone, she follows up with endocrinology as outpatient. #6 chronic anemia: She received 2 units of packed RBCs at the assisted living today. After transfusion, she feels better in terms of her strength and ambulation. Admission hemoglobin is 10.2 g/dL. No evidence of active bleeding. Hemoglobin is 8.9 g percent. Monitor H&H daily. Denies any obvious external bleeding. #7 stage III chronic kidney disease: Baseline creatinine is around 1.1 up to 1.5 mg. Admission creatinine is 1.28, stable at baseline. #8 DVT prophylaxis: She will be on therapeutic Lovenox twice daily. Code Visit Inpatient E&M: 64102 [facility] Hosp L3
[2017-09-19] MEDS: 0.9% Normal Saline 1,000 ML 75 ML IV ×2 (10:52→23:40)
--- NOTE | 2017-09-19 12:34 | CASEMGMT ---
Reviewed chart and noted patient is from [facility]. RYAN spoke with Jessenia at [facility] and she said patient has only been there since . She is there self pay, intermediate level of care, as they are not yet contracted with [facility] for skilled care. RYAN spoke with patient per her request. She said she needs to go somewhere for rehab. She was asking if TCU would have a bed. She said her plan is to move into a 1 bedroom apt after rehab. She said her son is helping her apply for Medicaid. He has been working with a Medicaid energy attorney and he was told she was approved. RYAN told her RYAN will check with TCU to see if there are any beds and will let her know. RYAN called Dorothy in TCU and left her a message inquiring if they would have any available beds. Miya BAKER MSW
[2017-09-19 20:30] LABS: Hematocrit 29.6 % (37-47); Hemoglobin 9.1 g/dl (12.0-15.0)
[2017-09-19] MEDS: LORazepam 0.5 MG Tablet PO (21:13)
[2017-09-20] VITALS (11 sets, daily range): BP systolic 126–167; BP diastolic 80–91; PULSE 104–125; RESP 16–18; TEMP 36.9–37.1; O2SAT 95–98
[2017-09-20 06:08] LABS: Absolute Lymphocyte Count 0.98 X10^3/ul (0.83-4.51); Absolute Neutrophil Count 5.3 X10^3/uL (2.0-7.7); Basophil# 0.02 X10^3/uL; Basophil% 0.3 % (0-1); Eosinophil# 0.02 X10^3/uL; Eosinophils% 0.3 % (0-5); Hematocrit 28.2 % (37-47); Hemoglobin 8.7 g/dl (12.0-15.0); Lymphocyte # 0.98 X10^3/ul (4.0); Lymphocyte % 14.1 % (19-41); Mean Corp Hgb Conc 30.9 g/gl (32-36); Mean Corpuscular Hgb 30.4 pg (27.0-32.0); Mean Corpuscular Volume 98.6 fL (81-99); Monocyte# 0.57 X10^3/uL; Monocyte% 8.2 % (0-10); Neutrophil # 5.32 X10^3/uL (2.7-7.7); Neutrophil % 76.4 % (47-70); POSITIVE COUNT NO; POSITIVE DIFFERENTIAL NO; POSITIVE MORPHOLOGY NO; Platelet Count 256 K/mm3 (150-450); RBC Distribution Width CV 18.4 % (11.6-14.6); RBC Distribution Width SD 60.9 fl (35.1-43.9); Red Blood Count 2.86 M/mm3 (4.2-5.4)
[2017-09-20 06:09] LABS: Anion Gap 5 (5-15); BUN 10 mg/dL (7-18); BUN/Creat Ratio 8.8 RATIO (10-20); Calcium,Total 7.6 mg/dL (8.5-10.1); Chloride 117 mmol/L (98-107); Creatinine, Serum 1.13 mg/dL (0.55-1.02); EST Glomerular Filtration Rate 50 mL/min (>60); Est Glom Filt Rate - Afr Amer 60 mL/min (>60); Glucose 102 mg/dL (74-106); Potassium 5.2 mmol/L (3.5-5.1); Sodium Level 149 mmol/L (136-145)
[2017-09-20] MEDS: predniSONE 5 MG Tablet PO ×2 (07:33→17:09)
[2017-09-20] MEDS: Fluticasone 0.05% 1 SPRAY NASAL.SRY NASAL (09:11)
[2017-09-20] MEDS: Loratadine 10 MG Tablet PO (09:12)
[2017-09-20] MEDS: Enoxaparin 80 MG/0.8 ML Syringe 70 MG SC ×2 (09:12→21:03)
[2017-09-20] MEDS: Pantoprazole Sodium 40 MG Tablet PO ×2 (09:12→21:03)
--- NOTE | 2017-09-20 10:09 | CASEMGMT ---
RYAN spoke with Dorothy in TCU and she can take patient. She will start the pre-cert. RYAN told patient that TCU will have a bed for her and we will have to wait on insurance to give the approval. Plan: [facility] TCU Miya QUIÑONES
--- NOTE | 2017-09-20 12:58 | PCM.PROGNOTE ---
<Philippe Alfaro - Last Filed: 09/20/17 12:58> Subjective: Pt continues to have intermittent dry cough. No chest pain, she denies any shortness of breath. She has not been able to be completely weaned off oxygen yet. She is improving however. Swelling of her lower extremities still significant and unchanged. She had a bowel movement this morning and did not see anything black or bloody. She is watching carefully. She is requesting stool softeners. - Physical Exam General: Alert, Oriented x3, Cooperative HEENT: Atraumatic, PERRLA, EOMI, Normocephalic Neck: Supple, No JVD, Negative Carotid Bruits Lungs: Clear to auscultation, Normal air movement Cardiovascular: Regular rate, No murmurs Abdomen: Bowel Sounds Present, Soft, Non Tender Extremities: No edema, Capillary Refill Less than 3 Seconds Skin: No rashes, No breakdown Musculoskeletal: No Tenderness to Palpation of Joints or Extremities Neurological: Cranial nerves II-XII grossly intact Psych/Mental Status: Normal Affect, Appropriate, Alert and oriented to time, place, person, mood and affect Vital Signs Temp Pulse Resp BP Pulse Ox 98.4 F 125 H 16 126/80 H 98 09/20/17 09:09 09/20/17 11:03 09/20/17 09:09 09/20/17 09:09 09/20/17 09:09 Oxygen Delivery Method Room Air Weight: 68.7 kg Body Mass Index (BMI) 30.6 Intake and Output for Last 24 Hours 09/18/17 09/19/17 09/20/17 23:59 23:59 23:59 Intake Total 3165 / 3165 588 / 588 Output Total 1900 / 1900 400 / 400 Balance 1265 / 1265 188 / 188 Laboratory Tests Past 24 Hrs 09/19/17 09/20/17 09/20/17 20:04 05:10 05:10 WBC 7.0 RBC 2.86 L Hgb 9.1 L 8.7 L Hct 29.6 L 28.2 L MCV 98.6 MCH 30.4 MCHC 30.9 L RDW 18.4 H RDW Differential 60.9 H Plt Count 256 MPV 9.0 Immature Gran % (Auto) 0.700 Neut % (Auto) 76.4 H Lymph % (Auto) 14.1 L Fleming % (Auto) 8.2 Eos % (Auto) 0.3 Baso % (Auto) 0.3 Absolute Neuts (auto) 5.3 Absolute Lymphs (auto) 0.98 Total Counted Not Reportable Sodium 149 H Potassium 5.2 H Chloride 117 H Carbon Dioxide 27.0 Anion Gap 5 BUN 10 Creatinine 1.13 H Estim Creat Clear Calc 44.50 Est GFR (MDRD) Af Amer 60 Est GFR (MDRD) Non-Af 50 L BUN/Creatinine Ratio 8.8 L Glucose 102 Calcium 7.6 L Medical Necessity - Tobacco Use Smoking Status: Never smoker Assessment/Plan 1. Provoked DVT/Bilateral PEs - maintain on therapeutic lovenox. Had bleeding with warfarin in the past. Trop neg. See CTA. Still somewhat tachycardic. 2. Chronic Normocytic anemia with iron deficiency - will receive venofer today. Recheck in AM. Had 2 units PRBC at assisted living. 3. Hyperkalemia - mild. Will recheck in AM. Was low yesterday. 4. Hx Bowel perforation. Having normal BMs without bleeding and no abdominal pain. 5. CKD stage 3 - improved. DVT ppx: Therapeutic Lovenox DC planning: Patient will be discharged to halfway when accepted-TCU. This patient was seen by Philippe Alfaro PA-C under the supervision of Doctor Farhad. <Mansoor Llamas - Last Filed: 09/20/17 17:53> Subjective: Seen and examined. Patient did not had obvious external bleeding. She has history of iron deficiency anemia and required iron transfusion in the past. She might have slow oozing from GI tract on Lovenox. H&H did not show major drop. - Physical Exam Lungs: No rhonchi, No wheeze, No rales, Diminished Cardiovascular: Regular Rhythm, Normal S2 Extremities: Edema - Edema of both lower extremity left more than right Musculoskeletal: Arthritic Changes Vital Signs Temp Pulse Resp BP Pulse Ox 98.5 F 112 H 16 139/89 H 98 09/20/17 15:09 09/20/17 15:12 09/20/17 15:09 09/20/17 15:09 09/20/17 15:09 Oxygen Delivery Method Room Air Weight: 151 lb 7.321 oz Body Mass Index (BMI) 30.6 Intake and Output for Last 24 Hours 09/18/17 09/19/17 09/20/17 23:59 23:59 23:59 Intake Total 3165 / 3165 1284 / 1284 Output Total 1900 / 1900 400 / 400 Balance 1265 / 1265 884 / 884 Laboratory Tests Past 24 Hrs 09/19/17 09/20/17 09/20/17 20:04 05:10 05:10 WBC 7.0 RBC 2.86 L Hgb 9.1 L 8.7 L Hct 29.6 L 28.2 L MCV 98.6 MCH 30.4 MCHC 30.9 L RDW 18.4 H RDW Differential 60.9 H Plt Count 256 MPV 9.0 Immature Gran % (Auto) 0.700 Neut % (Auto) 76.4 H Lymph % (Auto) 14.1 L Fleming % (Auto) 8.2 Eos % (Auto) 0.3 Baso % (Auto) 0.3 Absolute Neuts (auto) 5.3 Absolute Lymphs (auto) 0.98 Total Counted Not Reportable Sodium 149 H Potassium 5.2 H Chloride 117 H Carbon Dioxide 27.0 Anion Gap 5 BUN 10 Creatinine 1.13 H Estim Creat Clear Calc 44.50 Est GFR (MDRD) Af Amer 60 Est GFR (MDRD) Non-Af 50 L BUN/Creatinine Ratio 8.8 L Glucose 102 Calcium 7.6 L Assessment/Plan This patient was seen in conjunction with Philippe DUNCAN. I have independently interviewed and examined the patient and reviewed pertinent history, examination findings, laboratory and plan of management. I have reviewed the note and agree with the documented findings with the few additional points. 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 On Lovenox. Patient is moving her bowel and most rarely had a spontaneous healing of bowel perforation about 3 weeks ago for which she was managed conservatively in [facility] and patient refused surgery I have discussed my assessment with Philippe DUNCAN and orders have been reviewed. Laboratory Results 09/19/17 20:04: Hgb 9.1 L, Hct 29.6 L 09/20/17 05:10: WBC 7.0, RBC 2.86 L, Hgb 8.7 L, Hct 28.2 L, MCV 98.6, MCH 30.4, MCHC 30.9 L, RDW 18.4 H, RDW Differential 60.9 H, Plt Count 256, MPV 9.0, Immature Gran % (Auto) 0.700, Neut % (Auto) 76.4 H, Lymph % (Auto) 14.1 L, Fleming % (Auto) 8.2, Eos % (Auto) 0.3, Baso % (Auto) 0.3, Absolute Neuts (auto) 5.3, Absolute Lymphs (auto) 0.98, Total Counted Not Reportable 09/20/17 05:10: Sodium 149 H, Potassium 5.2 H, Chloride 117 H, Carbon Dioxide 27.0, Anion Gap 5, BUN 10, Creatinine 1.13 H, Estim Creat Clear Calc 44.50, Est GFR (MDRD) Af Amer 60, Est GFR (MDRD) Non-Af 50 L, BUN/Creatinine Ratio 8.8 L, Glucose 102, Calcium 7.6 L Code Visit Inpatient E&M: 30508 Subs Hosp L3
[2017-09-20] MEDS: LORazepam 1 MG Tablet PO (21:03)
[2017-09-20] MEDS: 0.9% NaCl Peripheral Flush Adult/Peds IV (21:11)
[2017-09-20 21:17] LABS: Hematocrit 29.6 % (37-47)
[2017-09-20] MEDS: Acetaminophen 325 MG Tablet 650 MG PO (21:56)
[2017-09-20] MEDS: BENZOCAINE/MENTHOL 1 LOZENGE 2 LOZENGE MUCOUS MEM (22:05)
[2017-09-21] VITALS (9 sets, daily range): BP systolic 146–158; BP diastolic 74–87; PULSE 99–125; RESP 16–18; TEMP 36.7–37; O2SAT 95–97
[2017-09-21] MEDS: Acetaminophen 325 MG Tablet 650 MG PO (04:02)
[2017-09-21 06:05] LABS: Absolute Lymphocyte Count 1.32 X10^3/ul (0.83-4.51); Absolute Neutrophil Count 5.5 X10^3/uL (2.0-7.7); Basophil# 0.03 X10^3/uL; Basophil% 0.4 % (0-1); Eosinophil# 0.05 X10^3/uL; Eosinophils% 0.6 % (0-5); Lymphocyte # 1.32 X10^3/ul (4.0); Lymphocyte % 17.1 % (19-41); Mean Corpuscular Hgb 29.6 pg (27.0-32.0); Mean Corpuscular Volume 98.7 fL (81-99); Mean Platelet Vol. 8.9 fl (6.2-12.0); Monocyte# 0.66 X10^3/uL; Monocyte% 8.5 % (0-10); Neutrophil # 5.54 X10^3/uL (2.7-7.7); Neutrophil % 71.7 % (47-70); Platelet Count 266 K/mm3 (150-450); RBC Distribution Width CV 18.6 % (11.6-14.6); RBC Distribution Width SD 61.1 fl (35.1-43.9); Red Blood Count 3.04 M/mm3 (4.2-5.4); White Blood Count 7.7 K/mm3 (4.4-11.0)
[2017-09-21 06:10] LABS: Anion Gap 8 (5-15); BUN 10 mg/dL (7-18); BUN/Creat Ratio 10.2 RATIO (10-20); Calcium,Total 8.1 mg/dL (8.5-10.1); Chloride 113 mmol/L (98-107); Creatinine, Serum 0.98 mg/dL (0.55-1.02); EST Glomerular Filtration Rate 59 mL/min (>60); Est Glom Filt Rate - Afr Amer 71 mL/min (>60); Estimated Creatinine Clearance 51.31 ml/min; Glucose 90 mg/dL (74-106); Potassium 4.1 mmol/L (3.5-5.1); Sodium Level 148 mmol/L (136-145)
[2017-09-21 06:17] LABS: POSITIVE COUNT NO; POSITIVE DIFFERENTIAL NO; POSITIVE MORPHOLOGY NO
[2017-09-21] MEDS: Pantoprazole Sodium 40 MG Tablet PO (09:14)
[2017-09-21] MEDS: predniSONE 5 MG Tablet PO ×2 (09:14→16:31)
[2017-09-21] MEDS: Docusate Sodium 100 MG Capsule PO (09:14)
[2017-09-21] MEDS: Fluticasone 0.05% 1 SPRAY NASAL.SRY NASAL (09:14)
[2017-09-21] MEDS: Loratadine 10 MG Tablet PO (09:14)
[2017-09-21] MEDS: Enoxaparin 80 MG/0.8 ML Syringe 70 MG SC (09:15)
[2017-09-21] MEDS: Metoprolol Tartrate 25 MG Tablet 12.5 MG PO (09:52)
--- NOTE | 2017-09-21 14:23 | PN_ITS ---
<Philippe Alfaro - Last Filed: 09/21/17 14:20> Subjective: Patient resting comfortably in chair bedside. She still complains of feeling overall tired. She has no chest pain, shortness of breath. She has a mild dry cough. She continues have swelling of her lower extremities notes she has not been having compression on while she has been here. Agreed to order EMILIANO hoses for while she is here. She is waiting for preauth to go to TCU. - Physical Exam General: Alert, Oriented x3, Cooperative HEENT: Atraumatic, PERRLA, EOMI, Normocephalic Neck: Supple, No JVD, Negative Carotid Bruits Lungs: Clear to auscultation, Normal air movement Cardiovascular: Regular rate, No murmurs Abdomen: Bowel Sounds Present, Soft, Non Tender Extremities: Capillary Refill Less than 3 Seconds, Edema - 3+ bilateral lower extremity pitting edema. Skin: No rashes, No breakdown Musculoskeletal: No Tenderness to Palpation of Joints or Extremities Neurological: Cranial nerves II-XII grossly intact Psych/Mental Status: Normal Affect, Appropriate, Alert and oriented to time, place, person, mood and affect Vital Signs Temp Pulse Resp BP Pulse Ox 98.1 F 120 H 16 146/80 H 95 09/21/17 09:10 09/21/17 10:59 09/21/17 09:10 09/21/17 09:10 09/21/17 09:10 Oxygen Delivery Method Room Air Weight: 68.7 kg Body Mass Index (BMI) 30.6 Intake and Output for Last 24 Hours 09/19/17 09/20/17 09/21/17 23:59 23:59 23:59 Intake Total 3165 / 3165 1878 / 1878 600 / 600 Output Total 1900 / 1900 400 / 400 625 / 625 Balance 1265 / 1265 1478 / 1478 -25 / -25 Laboratory Tests Past 24 Hrs 09/20/17 09/20/17 09/21/17 20:50 20:50 05:30 WBC 7.7 RBC 3.04 L Hgb 9.0 L 9.0 L Hct 29.6 L 30.0 L MCV 98.7 MCH 29.6 MCHC 30.0 L RDW 18.6 H RDW Differential 61.1 H Plt Count 266 MPV 8.9 Immature Gran % (Auto) 1.700 H Neut % (Auto) 71.7 H Lymph % (Auto) 17.1 L Storey % (Auto) 8.5 Eos % (Auto) 0.6 Baso % (Auto) 0.4 Absolute Neuts (auto) 5.5 Absolute Lymphs (auto) 1.32 Total Counted Not Reportable Sodium Potassium Chloride Carbon Dioxide Anion Gap BUN Creatinine Estim Creat Clear Calc Est GFR (MDRD) Af Amer Est GFR (MDRD) Non-Af BUN/Creatinine Ratio Glucose Calcium Blood Type A POSITIVE Antibody Screen NEGATIVE Crossmatch See Detail 09/21/17 05:30 WBC RBC Hgb Hct MCV MCH MCHC RDW RDW Differential Plt Count MPV Immature Gran % (Auto) Neut % (Auto) Lymph % (Auto) Storey % (Auto) Eos % (Auto) Baso % (Auto) Absolute Neuts (auto) Absolute Lymphs (auto) Total Counted Sodium 148 H Potassium 4.1 Chloride 113 H Carbon Dioxide 27.0 Anion Gap 8 BUN 10 Creatinine 0.98 Estim Creat Clear Calc 51.31 Est GFR (MDRD) Af Amer 71 Est GFR (MDRD) Non-Af 59 L BUN/Creatinine Ratio 10.2 Glucose 90 Calcium 8.1 L Blood Type Antibody Screen Crossmatch Medical Necessity - Tobacco Use Smoking Status: Never smoker Assessment/Plan 1. Provoked DVT/Bilateral PEs - maintain on therapeutic lovenox. Had bleeding with warfarin in the past. Trop neg. See CTA. Still somewhat tachycardic. 2. Chronic Normocytic anemia with iron deficiency -stable. One more dose Venofer today. 3. Hyperkalemia -resolved.. 4. Hx Bowel perforation. Having normal BMs without bleeding and no abdominal pain. 5. CKD stage 3 - improved. DVT ppx: Therapeutic Lovenox DC planning: Patient will be discharged to group home when accepted-TCU. This patient was seen by Philippe Alfaro PA-C under the supervision of Doctor Farhad. <Mansoor Llamas - Last Filed: 09/21/17 14:47> Subjective: Seen and examined. Patient denies obvious external bleeding. H&H is stable on Lovenox therapeutic dose. Patient had iron infusion for acute on chronic iron deficiency anemia. Baseline H&H 11-12 g percent; currently 9 g percent - Physical Exam Lungs: Clear to auscultation, Normal air movement, Diminished Cardiovascular: Regular rate, Normal S1, Normal S2, No murmurs Extremities: Edema Musculoskeletal: Arthritic Changes, Muscle Wasting Neurological: Cranial nerves II-XII grossly intact, Neuro grossly intact Vital Signs Temp Pulse Resp BP Pulse Ox 98.1 F 120 H 16 146/80 H 95 09/21/17 09:10 09/21/17 10:59 09/21/17 09:10 09/21/17 09:10 09/21/17 09:10 Oxygen Delivery Method Room Air Weight: 151 lb 7.321 oz Body Mass Index (BMI) 30.6 Intake and Output for Last 24 Hours 09/19/17 09/20/17 09/21/17 23:59 23:59 23:59 Intake Total 3165 / 3165 1878 / 1878 600 / 600 Output Total 1900 / 1900 400 / 400 625 / 625 Balance 1265 / 1265 1478 / 1478 -25 / -25 Laboratory Tests Past 24 Hrs 09/20/17 09/20/17 09/21/17 20:50 20:50 05:30 WBC 7.7 RBC 3.04 L Hgb 9.0 L 9.0 L Hct 29.6 L 30.0 L MCV 98.7 MCH 29.6 MCHC 30.0 L RDW 18.6 H RDW Differential 61.1 H Plt Count 266 MPV 8.9 Immature Gran % (Auto) 1.700 H Neut % (Auto) 71.7 H Lymph % (Auto) 17.1 L Storey % (Auto) 8.5 Eos % (Auto) 0.6 Baso % (Auto) 0.4 Absolute Neuts (auto) 5.5 Absolute Lymphs (auto) 1.32 Total Counted Not Reportable Sodium Potassium Chloride Carbon Dioxide Anion Gap BUN Creatinine Estim Creat Clear Calc Est GFR (MDRD) Af Amer Est GFR (MDRD) Non-Af BUN/Creatinine Ratio Glucose Calcium Blood Type A POSITIVE Antibody Screen NEGATIVE Crossmatch See Detail 09/21/17 05:30 WBC RBC Hgb Hct MCV MCH MCHC RDW RDW Differential Plt Count MPV Immature Gran % (Auto) Neut % (Auto) Lymph % (Auto) Storey % (Auto) Eos % (Auto) Baso % (Auto) Absolute Neuts (auto) Absolute Lymphs (auto) Total Counted Sodium 148 H Potassium 4.1 Chloride 113 H Carbon Dioxide 27.0 Anion Gap 8 BUN 10 Creatinine 0.98 Estim Creat Clear Calc 51.31 Est GFR (MDRD) Af Amer 71 Est GFR (MDRD) Non-Af 59 L BUN/Creatinine Ratio 10.2 Glucose 90 Calcium 8.1 L Blood Type Antibody Screen Crossmatch Assessment/Plan This patient was seen in conjunction with Philippe DUNCAN. I have independently interviewed and examined the patient and reviewed pertinent history, examination findings, laboratory and plan of management. I have reviewed the note and agree with the documented findings with the few additional points. 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 On Lovenox. Patient is moving her bowel and most probably had a spontaneous healing of bowel perforation about 3 weeks ago for which she was managed conservatively in [facility] and patient refused surgery I have discussed my assessment with Philippe DUNCAN and orders have been reviewed. On Lovenox. Patient had iron infusion yesterday and 1 today for acute on chronic iron deficiency anemia; mainly from anticoagulant treatment. Baseline H&H 11- 12 g percent; currently 9 g percent Patient is moving her bowel and most rarely had a spontaneous healing of bowel perforation about 3 weeks ago for which she was managed conservatively in [facility] and patient refused surgery I have discussed my assessment with Philippe DUNCAN and orders have been reviewed. Code Visit Inpatient E&M: 82695 Subs Hosp L2
--- NOTE | 2017-09-21 15:23 | TREXTCAR_ITS ---
<Philippe Alfaro - Last Filed: 09/21/17 15:21> - Diet 09/18/17 21:10 Diet: Regular Diet Food consistency:: Regular Liquid Consistency:: Regular/Thin - Routine Orders/Code Status Suppository Type: Dulcolax 10mg Suppository Frequency: Daily PRN O2 Frequency: PRN Routine Lab Work: CBC, BMP Code Status: Full Code - Wound(s) RFA Skin tear Wound Type: Skin Tear - Therapies Physical Therapy: Eval and Treat Occupational Therapy: Eval and Treat - Problem/Diagnosis (1) Pulmonary emboli Status: Acute Current Visit: Yes (2) DVT (deep venous thrombosis) Status: Acute Current Visit: Yes (3) History of bowel perforation Status: Chronic Current Visit: Yes (4) History of GI bleed Status: Chronic Current Visit: Yes (5) History of pulmonary embolism Status: Chronic Current Visit: Yes (6) Chronic anemia Status: Chronic Current Visit: Yes (7) Stage III chronic kidney disease Status: Chronic Current Visit: Yes (8) Addisons disease Status: Chronic Current Visit: Yes - Allergies/Procedures Done in Hospital Allergies/Adverse Reactions: Allergies amoxicillin trihydrate [From Augmentin] Adverse Reaction (Verified 09/18/17 22: 10) Upset Stomach diclofenac sodium [From Arthrotec] Adverse Reaction (Verified 09/18/17 22:10) Upset Stomach doxycycline Adverse Reaction (Verified 09/18/17 22:10) Upset Stomach erythromycin base Adverse Reaction (Verified 09/18/17 22:10) Upset Stomach etodolac [From Lodine] Adverse Reaction (Verified 09/18/17 22:10) Upset Stomach flurbiprofen [From Ansaid] Adverse Reaction (Verified 09/18/17 22:10) Upset Stomach misoprostol [From Arthrotec] Adverse Reaction (Verified 09/18/17 22:10) Upset Stomach NSAIDS (Non-Steroidal Anti-Inflamma Adverse Reaction (Verified 09/18/17 22:10) Other potassium clavulanate [From Augmentin] Adverse Reaction (Verified 09/18/17 22:10 ) Upset Stomach rofecoxib [From Vioxx] Adverse Reaction (Verified 09/18/17 22:10) Upset Stomach Procedures: None - Type of Care/Length of Stay Estimated LOS: Convalescent Care Less Than 30 days Type of Care Needed: Skilled Rehab Potential: Fair Prognosis: Fair - Additional Orders/Day of Discharge Additional Orders: Apply compression stocking daily Day of Discharge: 09/21/17 - Dietary and Speech Recommendations Dietitian Recommendations/Changes: Recommend regular diet, low residue/low gastric stimulant. - Follow Up Care Primary Care Physician: Moreno Hook,Out of [Primary Care Provider] - Please follow up with your Primary Care Physician in: 2 weeks <Mansoor Llamas - Last Filed: 09/21/17 15:51> - Diet 09/18/17 21:10 Diet: Regular Diet Food consistency:: Regular Liquid Consistency:: Regular/Thin - Routine Orders/Code Status Suppository Type: Dulcolax 10mg Suppository Frequency: Daily PRN
--- NOTE | 2017-09-21 15:23 | PCM.DC.SUM ---
Discharge Date and Diagnosis - Problem List Patient Problems: Active and Suspected Problems Pulmonary emboli (Acute) DVT (deep venous thrombosis) (Acute) Date of Admission: 09/18/17 Date of Discharge: 09/21/17 - Primary Discharge Diagnosis Active and Suspected Problems Pulmonary emboli (Acute), bilateral, provoked DVT (deep venous thrombosis) (Acute) Chronic venous stasis Dooly Disease CKDIII Hx Bowel perforation and GI bleeding. - Secondary Discharge Diagnosis Chronic Problems History of bowel perforation (Chronic) History of GI bleed (Chronic) History of pulmonary embolism (Chronic) Chronic anemia (Chronic) Stage III chronic kidney disease (Chronic) Addisons disease (Chronic) Hospital Course and Treatment Imaging Results: CT/CTA Chest W/WO Contrast IMPRESSION: Acute segmental pulmonary emboli in the right upper and lower lobes Acute subsegmental pulmonary emboli in the lingula and left lower lobe. Clear lungs. Operations: None Procedures: None Summary of Care Provided: Physical exam on day of discharge: See daily progress note Hospital course: The patient is a 77 year old F with a history of PEs, history of GI bleed, bowel perforation, CKD stage III, Dooly's disease, chronic venous insufficiency, who presented to the emergency room with bilateral leg pain, and a dry cough. She had been bedridden for about a month because she had a recent bowel perforation and prior GI bleed. She used to be on Coumadin for PEs however was taken off of this because of the GI bleed. She reportedly had nearly in August however had recovered despite poor odds. She was found in the ER to have bilateral PEs and DVTs on imaging. She was tachycardic and required oxygen supplementation. She was admitted to the telemetry unit and started on therapeutic Lovenox. She did have significant anemia however this remained stable while she was here. She was given several doses of Venofer. Her symptoms improved and she was able to be weaned off of oxygen prior to discharge. She did remain somewhat tachycardic intermittently. The patient was physically debilitated as noted on presentation she basically immobile at home. He was advised that she go to senior living at this time. The patient remained in stable condition and was discharged to TCU when approved. She will continue therapeutic Lovenox as an outpatient. This patient was seen by Philippe Alfaro PA-C under the supervision of Doctor Llamas. [] Discharge Diet: No Restrictions Discharge Activity: Return to Normal Activity Home Medications: Medications to take at Discharge Fluticasone 0.05% [Flonase Nasal [place]] 1 spray NASAL PRN PRN 09/18/17 Omeprazole [Prilosec] 20 mg PO DAILY 09/18/17 Prednisone 5 mg PO BID 09/18/17 Acetaminophen [Tylenol Tablet] 650 mg PO Q6H PRN PRN tablet 09/21/17 Docusate Sodium [Colace] 100 mg PO DAILY capsule 09/21/17 Enoxaparin [Lovenox] 70 mg SC Q12 syringe 09/21/17 Ensure Enlive 120 ml PO 4X/DAY liquid 09/21/17 Loratadine [Claritin] 10 mg PO DAILY tablet 09/21/17 Lorazepam [Ativan] 0.5 mg PO QHS #5 tab 09/21/17 Magnesium Hydroxide [Milk Of Magnesia] 30 ml PO DAILY PRN udc 09/21/17 Metoprolol Tartrate [Lopressor (beta ab)] 12.5 mg PO BID tablet 09/21/17 Following Prescrptions Were Given to Patient: Lorazepam [Ativan] 0.5 mg PO QHS #5 tab Primary Care Physician: [facility] Doctor,Out of [Primary Care Provider] - Please follow up with your Primary Care Physician in: 2 weeks Additional Instructions: Apply compression socks BL daily. Disposition: Senior Care facility Minutes spent on discharge:: 35 Patient Condition:: Stable Medical Necessity - Tobacco Use Smoking Status: Never smoker Meaningful Use Info Meaningful Use Diagnoses (Choose all that apply): VTE - VTE Anticoag overlap given w/in hospital stay or rx'd at sd?: Yes Pt receive overlap for 5 days?: No Reason overlap not ordered, prescribed, or given for 5 days: Procedure Not Indicated
--- NOTE | 2017-09-21 15:25 | CASEMGMT ---
Received insurance approval for patient to go to TCU. SW notified patient. She became tearful. SW listened and provided emotional support. Patient is motivated and ready to start rehab. Plan: d/c to [facility] TCU under skilled level of care. Miya BAKER MSW
--- NOTE | 2017-09-21 15:29 | DS.PCM_ITS ---
Discharge Date and Diagnosis - Problem List Patient Problems: Active and Suspected Problems Pulmonary emboli (Acute) DVT (deep venous thrombosis) (Acute) Date of Admission: 09/18/17 Date of Discharge: 09/21/17 - Primary Discharge Diagnosis Active and Suspected Problems Pulmonary emboli (Acute), bilateral, provoked DVT (deep venous thrombosis) (Acute) Chronic venous stasis Adams Disease CKDIII Hx Bowel perforation and GI bleeding. - Secondary Discharge Diagnosis Chronic Problems History of bowel perforation (Chronic) History of GI bleed (Chronic) History of pulmonary embolism (Chronic) Chronic anemia (Chronic) Stage III chronic kidney disease (Chronic) Addisons disease (Chronic) Hospital Course and Treatment Imaging Results: CT/CTA Chest W/WO Contrast IMPRESSION: Acute segmental pulmonary emboli in the right upper and lower lobes Acute subsegmental pulmonary emboli in the lingula and left lower lobe. Clear lungs. Operations: None Procedures: None Summary of Care Provided: Physical exam on day of discharge: See daily progress note Hospital course: The patient is a 77 year old F with a history of PEs, history of GI bleed, bowel perforation, CKD stage III, Adams's disease, chronic venous insufficiency, who presented to the emergency room with bilateral leg pain, and a dry cough. She had been bedridden for about a month because she had a recent bowel perforation and prior GI bleed. She used to be on Coumadin for PEs however was taken off of this because of the GI bleed. She reportedly had nearly in August however had recovered despite poor odds. She was found in the ER to have bilateral PEs and DVTs on imaging. She was tachycardic and required oxygen supplementation. She was admitted to the telemetry unit and started on therapeutic Lovenox. She did have significant anemia however this remained stable while she was here. She was given several doses of Venofer. Her symptoms improved and she was able to be weaned off of oxygen prior to discharge. She did remain somewhat tachycardic intermittently. The patient was physically debilitated as noted on presentation she basically immobile at home. He was advised that she go to correction at this time. The patient remained in stable condition and was discharged to TCU when approved. She will continue therapeutic Lovenox as an outpatient. This patient was seen by Philippe Alfaro PA-C under the supervision of Doctor Llamas. [] Discharge Diet: No Restrictions Discharge Activity: Return to Normal Activity Home Medications: Medications to take at Discharge Fluticasone 0.05% [Flonase Nasal [place]] 1 spray NASAL PRN PRN 09/18/17 Omeprazole [Prilosec] 20 mg PO DAILY 09/18/17 Prednisone 5 mg PO BID 09/18/17 Acetaminophen [Tylenol Tablet] 650 mg PO Q6H PRN PRN tablet 09/21/17 Docusate Sodium [Colace] 100 mg PO DAILY capsule 09/21/17 Enoxaparin [Lovenox] 70 mg SC Q12 syringe 09/21/17 Ensure Enlive 120 ml PO 4X/DAY liquid 09/21/17 Loratadine [Claritin] 10 mg PO DAILY tablet 09/21/17 Lorazepam [Ativan] 0.5 mg PO QHS #5 tab 09/21/17 Magnesium Hydroxide [Milk Of Magnesia] 30 ml PO DAILY PRN udc 09/21/17 Metoprolol Tartrate [Lopressor (beta ab)] 12.5 mg PO BID tablet 09/21/17 Following Prescrptions Were Given to Patient: Lorazepam [Ativan] 0.5 mg PO QHS #5 tab Primary Care Physician: [facility] Doctor,Out of [Primary Care Provider] - Please follow up with your Primary Care Physician in: 2 weeks Additional Instructions: Apply compression socks BL daily. Disposition: Jail facility Minutes spent on discharge:: 35 Patient Condition:: Stable Medical Necessity - Tobacco Use Smoking Status: Never smoker Meaningful Use Info Meaningful Use Diagnoses (Choose all that apply): VTE - VTE Anticoag overlap given w/in hospital stay or rx'd at fl?: Yes Pt receive overlap for 5 days?: No Reason overlap not ordered, prescribed, or given for 5 days: Procedure Not Indicated
--- NOTE | 2017-09-21 15:56 | NURSING ---
Called report to Theodora GONZALES on TCU
== END 2017-09-21 16:49 | disposition skilled nursing facility (03) | DRG 299 ==
LOC: ED 18:24 → PCU 21:24
PROVIDERS: Admitting Provider Hospitalist; Emergency Provider Emergency Medicine; Visit Provider Internal Medicine
DX: I82.413 Acute embolism and thrombosis of femoral vein, bilateral (principal); I26.99 Other pulmonary embolism without acute cor pulmonale; E27.1 Primary adrenocortical insufficiency; I82.431 Acute embolism and thrombosis of right popliteal vein; N18.3 Chronic kidney disease, stage 3 (moderate); D50.9 Iron deficiency anemia, unspecified; E87.5 Hyperkalemia; M19.90 Unspecified osteoarthritis, unspecified site; M54.9 Dorsalgia, unspecified; G89.29 Other chronic pain; Z74.01 Bed confinement status; Z79.01 Long term (current) use of anticoagulants; Z79.52 Long term (current) use of systemic steroids; Z79.899 Other long term (current) drug therapy; Z86.718 Personal history of other venous thrombosis and embolism; Z86.711 Personal history of pulmonary embolism; Z87.19 Personal history of other diseases of the digestive system
CPT/HCPCS: 36415; 71275; 80048; 84484; 85014; 85018; 85025; 85610; 85730; 86850; 86900; 86920; 86922; 93005; 97162; 97166; 97530; 97535; 97802; 99285; J1756; J7030; P9016; Q9967; A4216; J1940

== ENCOUNTER 2017-09-21 16:55 | Inpatient (IN) | payer MEDICARE, SELFPAY ==
[2017-09-21 17:14] VITALS: BP 160/85; PULSE 108; RESP 20; TEMP 37.1; O2SAT 98; BMI 30.6; BMI 31.8
--- NOTE | 2017-09-21 17:14 | NURSING ---
PT ARRIVED FROM [facility] VIA AT [id number]
--- NOTE | 2017-09-21 20:56 | PCM.HP.STD ---
Problem List (1) Debility Status: Acute (2) Osteoarthritis Status: Chronic (3) Low back pain Status: Chronic (4) Allergic rhinitis Status: Chronic (5) Anxiety Status: Chronic (6) GERD (gastroesophageal reflux disease) Status: Chronic (7) Pulmonary emboli Status: Acute (8) DVT (deep venous thrombosis) Status: Acute (9) History of bowel perforation Status: Chronic (10) History of GI bleed Status: Chronic (11) Chronic anemia Status: Chronic (12) Stage III chronic kidney disease Status: Chronic (13) Addisons disease Status: Chronic History of Present Illness Date of Admission: 09/21/17 Chief Complaint: Here for rehabilitation, strengthening, prior to discharge home. The patient is a 77 year old Female with below past medical history presented to [facility] Emergency Department 09/18/2017 with bilateral lower extremity DVT. 09/18/2017 EKG sinus tachycardia, left axis deviation. Resident at [facility], CLAIM TECHNICIAN ordered doppler ultrasound of legs positive for bilateral lower extremity DVT. History of DVT, PE. Previously on coumadin, stopped 08/24/2017 due to bowel perforation, sepsis. Resident was at [facility] and refused surgery, she was referred to hospice. Patient graduated hospice when she did not of GI bleed. Transfused 2 units PRBC 1 day prior to [facility] Emergency Department, felt better after transfusion. Hemoglobin 10.2, Cr 1.28, INR 1.2, Troponin negative. IV fluids given. CTA chest showed multiple bilateral pulmonary emboli. Heparin drip started. 09/18/2017 Admit to Hospital. Lovenox twice daily for DVT/PE. Coumadin, NOAC avoided due to recent GI bleed. Protonix twice daily for GI bleed. IV venofer given for iron deficiency anemia. Oxygen weaned off. 09/21/2017 Admit to TCU for rehabilitation, strengthening, prior to discharge home. Past Medical History Past Medical History (Chronic Problems): Chronic Problems Osteoarthritis (Chronic) Low back pain (Chronic) Allergic rhinitis (Chronic) Anxiety (Chronic) GERD (gastroesophageal reflux disease) (Chronic) History of bowel perforation (Chronic) History of GI bleed (Chronic) History of pulmonary embolism (Chronic) Chronic anemia (Chronic) Stage III chronic kidney disease (Chronic) Addisons disease (Chronic) Allergies amoxicillin trihydrate [From Augmentin] Adverse Reaction (Verified 09/18/17 22:10) Upset Stomach diclofenac sodium [From Arthrotec] Adverse Reaction (Verified 09/18/17 22:10) Upset Stomach doxycycline Adverse Reaction (Verified 09/18/17 22:10) Upset Stomach erythromycin base Adverse Reaction (Verified 09/18/17 22:10) Upset Stomach etodolac [From Lodine] Adverse Reaction (Verified 09/18/17 22:10) Upset Stomach flurbiprofen [From Ansaid] Adverse Reaction (Verified 09/18/17 22:10) Upset Stomach misoprostol [From Arthrotec] Adverse Reaction (Verified 09/18/17 22:10) Upset Stomach NSAIDS (Non-Steroidal Anti-Inflamma Adverse Reaction (Verified 09/18/17 22:10) Other potassium clavulanate [From Augmentin] Adverse Reaction (Verified 09/18/17 22:10) Upset Stomach rofecoxib [From Vioxx] Adverse Reaction (Verified 09/18/17 22:10) Upset Stomach Home Medications: Ambulatory Orders Medication Instructions Recorded Fluticasone 0.05% [Flonase Nasal 1 spray NASAL PRN PRN 09/18/17 [place]] Omeprazole [Prilosec] 20 mg PO DAILY 09/18/17 Prednisone 5 mg PO BID 09/18/17 Acetaminophen [Tylenol Tablet] 650 mg PO Q6H PRN PRN tablet 09/21/17 Docusate Sodium [Colace] 100 mg PO DAILY 09/21/17 Enoxaparin [Lovenox] 70 mg SC Q12 09/21/17 Ensure Enlive 120 ml PO 4X/DAY 09/21/17 Loratadine [Claritin] 10 mg PO DAILY 09/21/17 Lorazepam [Ativan] 0.5 mg PO QHS #5 tab 09/21/17 Magnesium Hydroxide [Milk Of 30 ml PO DAILY PRN udc 09/21/17 Magnesia] Metoprolol Tartrate [Lopressor 12.5 mg PO BID 09/21/17 (beta ab)] Surgical History: total knee arthroplasty, - - Back surgery. Psychiatric History: No pertinent psych hx PARAPROFESSIONAL AIDE History: No pertinent PARAPROFESSIONAL AIDE history Lives: [facility] Smoking Status: Never smoker Tobacco Use: Non-smoker Alcohol: None Drugs: None - *Family History Maternal History Items: No pertinent history Paternal History Items: No pertinent history Review of Systems Constitutional: Reports: Weakness. Denies: Chills, Fever, Weight Change HEENT: Denies: Head Aches, Sinus Congestion, Sinus Drainage Cardiovascular: Denies: Chest Pain, Palpitations Respiratory: Denies: Cough, Shortness of breath at rest, Sputum production Gastrointestinal: Denies: Abdominal Pain, Nausea, Vomiting Genitourinary: Denies: Dysuria Musculoskeletal: Denies: Joint Pain, Joint Tenderness Skin: Denies: Rash, Wounds Neurological: Denies: Numbness, Tingling, Focal weakness Psychiatric: Denies: Anxiety, Depression, Homicidal Ideations, Suicidal Ideations Hematologic/ Lymphatic: Denies: Easy Bruising, Easy Bleeding VTE Information - Inpt Only VTE Present on Admission: No VTE Mechan Device Prophylaxis: Knee High EMILIANO Hose VTE Pharm Prophylaxis ordered?: No Reason prophylaxis not ordered:: Treatment Not Indicated Patient Problems: Active and Suspected Problems Debility (Acute) - Physical Exam General: Alert, Oriented x3, Cooperative HEENT: Atraumatic, PERRLA, EOMI, Normocephalic Neck: Supple, No JVD, Negative Carotid Bruits Lungs: Clear to auscultation, Normal air movement Cardiovascular: Regular rate, No murmurs Abdomen: Bowel Sounds Present, Soft, Non Tender Extremities: No edema, Capillary Refill Less than 3 Seconds Skin: No rashes, No breakdown Musculoskeletal: No Tenderness to Palpation of Joints or Extremities Neurological: Cranial nerves II-XII grossly intact Psych/Mental Status: Normal Affect, Appropriate Vital Signs Temp Pulse Resp BP Pulse Ox 98.7 F 108 H 20 H 160/85 H 98 09/21/17 17:14 09/21/17 17:14 09/21/17 17:14 09/21/17 17:14 09/21/17 17:14 Oxygen Delivery Method Room Air Weight: 71.5 kg Body Mass Index (BMI) 31.8 Intake and Output for Last 24 Hours 09/19/17 09/20/17 09/21/17 23:59 23:59 23:59 Intake Total 120 / 120 Balance 120 / 120 Assessment/Plan Active and Suspected Problems Debility (Acute) 77 year old female with below past medical history hospitalized for bilateral lower extremity DVT, bilateral pulmonary embolism, treated with LMWH, NOAC avoided due to recent GI bleed, Venofer given for iron deficiency anemia, admitted to TCU with debility, here for rehabilitation, strengthening, prior to discharge home. Debility - PT/OT. Pain - Tylenol 1000MG Q8H PRN mild pain. Bowel - Miralax 17GM daily, Senna/colace 1 tablet BID, Dulcolax 10MG [place] daily PRN. Pneumonia vaccination - Administer Prevnar 13 and/or Pneumovax 23 as necessary. DVT prophylaxis - Not necessary, already on Lovenox. Skin irritation - Eucerin BID bilateral lower extremities, Calmoseptine BID coccyx. DVT/PE - Lovenox 70MG SC Q12H indefinitely, change to NOAC once GI bleed resolved, she should be anticoagulated indefinitely. Nutrition - Ensure Enlive 120ML 4x/day. Allergic rhinitis - Loratadine 10MG daily, Flonase 1 spray PRN. Anxiety - Lorazepam 0.5MG QHS(Beer's List drug due to chronic [facility] use). Hypertension - Metoprolol 12.5MG BID. GERD - Pantoprazole 20MG daily. [place] - Prednisone 5MG BID.
--- NOTE | 2017-09-21 21:10 | HP.PCM_ITS ---
Problem List (1) Debility Status: Acute (2) Osteoarthritis Status: Chronic (3) Low back pain Status: Chronic (4) Allergic rhinitis Status: Chronic (5) Anxiety Status: Chronic (6) GERD (gastroesophageal reflux disease) Status: Chronic (7) Pulmonary emboli Status: Acute (8) DVT (deep venous thrombosis) Status: Acute (9) History of bowel perforation Status: Chronic (10) History of GI bleed Status: Chronic (11) Chronic anemia Status: Chronic (12) Stage III chronic kidney disease Status: Chronic (13) Addisons disease Status: Chronic History of Present Illness Date of Admission: 09/21/17 Chief Complaint: Here for rehabilitation, strengthening, prior to discharge home. The patient is a 77 year old Female with below past medical history presented to [facility] Emergency Department 09/18/2017 with bilateral lower extremity DVT. 09/18/2017 EKG sinus tachycardia, left axis deviation. Resident at [facility], PIE CUTTER ordered doppler ultrasound of legs positive for bilateral lower extremity DVT. History of DVT, PE. Previously on coumadin, stopped 08/24/2017 due to bowel perforation, sepsis. Resident was at [facility] and refused surgery, she was referred to hospice. Patient graduated hospice when she did not of GI bleed. Transfused 2 units PRBC 1 day prior to [facility] Emergency Department, felt better after transfusion. Hemoglobin 10.2, Cr 1.28, INR 1.2, Troponin negative. IV fluids given. CTA chest showed multiple bilateral pulmonary emboli. Heparin drip started. 09/18/2017 Admit to Hospital. Lovenox twice daily for DVT/PE. Coumadin, NOAC avoided due to recent GI bleed. Protonix twice daily for GI bleed. IV venofer given for iron deficiency anemia. Oxygen weaned off. 09/21/2017 Admit to TCU for rehabilitation, strengthening, prior to discharge home. Past Medical History Past Medical History (Chronic Problems): Chronic Problems Osteoarthritis (Chronic) Low back pain (Chronic) Allergic rhinitis (Chronic) Anxiety (Chronic) GERD (gastroesophageal reflux disease) (Chronic) History of bowel perforation (Chronic) History of GI bleed (Chronic) History of pulmonary embolism (Chronic) Chronic anemia (Chronic) Stage III chronic kidney disease (Chronic) Addisons disease (Chronic) Allergies amoxicillin trihydrate [From Augmentin] Adverse Reaction (Verified 09/18/17 22: 10) Upset Stomach diclofenac sodium [From Arthrotec] Adverse Reaction (Verified 09/18/17 22:10) Upset Stomach doxycycline Adverse Reaction (Verified 09/18/17 22:10) Upset Stomach erythromycin base Adverse Reaction (Verified 09/18/17 22:10) Upset Stomach etodolac [From Lodine] Adverse Reaction (Verified 09/18/17 22:10) Upset Stomach flurbiprofen [From Ansaid] Adverse Reaction (Verified 09/18/17 22:10) Upset Stomach misoprostol [From Arthrotec] Adverse Reaction (Verified 09/18/17 22:10) Upset Stomach NSAIDS (Non-Steroidal Anti-Inflamma Adverse Reaction (Verified 09/18/17 22:10) Other potassium clavulanate [From Augmentin] Adverse Reaction (Verified 09/18/17 22:10 ) Upset Stomach rofecoxib [From Vioxx] Adverse Reaction (Verified 09/18/17 22:10) Upset Stomach Home Medications: Ambulatory Orders Medication Instructions Recorded Fluticasone 0.05% [Flonase Nasal 1 spray NASAL PRN PRN 09/18/17 [place]] Omeprazole [Prilosec] 20 mg PO DAILY 09/18/17 Prednisone 5 mg PO BID 09/18/17 Acetaminophen [Tylenol Tablet] 650 mg PO Q6H PRN PRN tablet 09/21/17 Docusate Sodium [Colace] 100 mg PO DAILY 09/21/17 Enoxaparin [Lovenox] 70 mg SC Q12 09/21/17 Ensure Enlive 120 ml PO 4X/DAY 09/21/17 Loratadine [Claritin] 10 mg PO DAILY 09/21/17 Lorazepam [Ativan] 0.5 mg PO QHS #5 tab 09/21/17 Magnesium Hydroxide [Milk Of 30 ml PO DAILY PRN udc 09/21/17 Magnesia] Metoprolol Tartrate [Lopressor 12.5 mg PO BID 09/21/17 (beta ab)] Surgical History: total knee arthroplasty, - - Back surgery. 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 Denies: Chills, Fever, Weight Change HEENT: Denies: Head Aches, Sinus Congestion, Sinus Drainage Cardiovascular: Denies: Chest Pain, Palpitations Respiratory: Denies: Cough, Shortness of breath at rest, Sputum production Gastrointestinal: Denies: Abdominal Pain, Nausea, Vomiting Genitourinary: Denies: Dysuria Musculoskeletal: Denies: Joint Pain, Joint Tenderness Skin: Denies: Rash, Wounds Neurological: Denies: Numbness, Tingling, Focal weakness Psychiatric: Denies: Anxiety, Depression, Homicidal Ideations, Suicidal Ideations Hematologic/ Lymphatic: Denies: Easy Bruising, Easy Bleeding VTE Information - Inpt Only VTE Present on Admission: No VTE Mechan Device Prophylaxis: Knee High EMILIANO Hose VTE Pharm Prophylaxis ordered?: No Reason prophylaxis not ordered:: Treatment Not Indicated Patient Problems: Active and Suspected Problems Debility (Acute) - Physical Exam General: Alert, Oriented x3, Cooperative HEENT: Atraumatic, PERRLA, EOMI, Normocephalic Neck: Supple, No JVD, Negative Carotid Bruits Lungs: Clear to auscultation, Normal air movement Cardiovascular: Regular rate, No murmurs Abdomen: Bowel Sounds Present, Soft, Non Tender Extremities: No edema, Capillary Refill Less than 3 Seconds Skin: No rashes, No breakdown Musculoskeletal: No Tenderness to Palpation of Joints or Extremities Neurological: Cranial nerves II-XII grossly intact Psych/Mental Status: Normal Affect, Appropriate Vital Signs Temp Pulse Resp BP Pulse Ox 98.7 F 108 H 20 H 160/85 H 98 09/21/17 17:14 09/21/17 17:14 09/21/17 17:14 09/21/17 17:14 09/21/17 17:14 Oxygen Delivery Method Room Air Weight: 71.5 kg Body Mass Index (BMI) 31.8 Intake and Output for Last 24 Hours 09/19/17 09/20/17 09/21/17 23:59 23:59 23:59 Intake Total 120 / 120 Balance 120 / 120 Assessment/Plan Active and Suspected Problems Debility (Acute) 77 year old female with below past medical history hospitalized for bilateral lower extremity DVT, bilateral pulmonary embolism, treated with LMWH, NOAC avoided due to recent GI bleed, Venofer given for iron deficiency anemia, admitted to TCU with debility, here for rehabilitation, strengthening, prior to discharge home. * Debility - PT/OT. * Pain - Tylenol 1000MG Q8H PRN mild pain. * Bowel - Miralax 17GM daily, Senna/colace 1 tablet BID, Dulcolax 10MG [place] daily PRN. * Pneumonia vaccination - Administer Prevnar 13 and/or Pneumovax 23 as necessary. * DVT prophylaxis - Not necessary, already on Lovenox. * Skin irritation - Eucerin BID bilateral lower extremities, Calmoseptine BID coccyx. * DVT/PE - Lovenox 70MG SC Q12H indefinitely, change to NOAC once GI bleed resolved, she should be anticoagulated indefinitely. * Nutrition - Ensure Enlive 120ML 4x/day. * Allergic rhinitis - Loratadine 10MG daily, Flonase 1 spray PRN. * Anxiety - Lorazepam 0.5MG QHS(Beer's List drug due to chronic residential use). * Hypertension - Metoprolol 12.5MG BID. * GERD - Pantoprazole 20MG daily. * [place] - Prednisone 5MG BID.
[2017-09-21] MEDS: Enoxaparin 80 MG/0.8 ML Syringe 70 MG SC (21:15)
[2017-09-21] MEDS: LORazepam 0.5 MG Tablet PO (21:16)
[2017-09-21 21:17] VITALS: BP 160/85; PULSE 108
[2017-09-21] MEDS: Metoprolol Tartrate 25 MG Tablet 12.5 MG PO (21:17)
[2017-09-21] MEDS: Acetaminophen 325 MG Tablet 650 MG PO (21:21)
[2017-09-21] MEDS: Menthol/Lanolin/Calamine/Znox 113 GM Tube 1 APPLIC TOPICAL (21:23)
--- NOTE | 2017-09-21 23:10 | NURSING ---
Addendum entered by Kelsi Mix 09/22/17 06:43: Pt refusing spike wraps and/or compression hose. Original Note: Per Dr Ortega, pt can wear spike wraps while on TCU.
[2017-09-22] MEDS: predniSONE 5 MG Tablet PO ×2 (06:07→11:27)
[2017-09-22] MEDS: Menthol/Lanolin/Calamine/Znox 113 GM Tube 1 APPLIC TOPICAL ×2 (06:09→19:52)
[2017-09-22] MEDS: Polyethylene Glycol 3350 17 GM PACKET PO (06:09)
[2017-09-22] MEDS: Pantoprazole Sodium 20 MG Tablet PO (06:09)
[2017-09-22] MEDS: Loratadine 10 MG Tablet PO (06:09)
[2017-09-22] MEDS: Senna/Docusate Sodium 1 Tablet PO ×2 (06:09→17:42)
[2017-09-22 06:10] VITALS: BP 146/81; PULSE 102
[2017-09-22] MEDS: Enoxaparin 80 MG/0.8 ML Syringe 70 MG SC ×2 (06:10→17:42)
[2017-09-22] MEDS: Metoprolol Tartrate 25 MG Tablet 12.5 MG PO ×2 (06:10→17:41)
[2017-09-22 06:25] LABS: Differential Indicated MANUAL DIFF; Hematocrit 30.8 % (37-47); Hemoglobin 9.4 g/dl (12.0-15.0); Mean Corp Hgb Conc 30.5 g/gl (32-36); Mean Corpuscular Volume 98.4 fL (81-99); Mean Platelet Vol. 9.2 fl (6.2-12.0); POSITIVE COUNT YES; POSITIVE DIFFERENTIAL NO; POSITIVE MORPHOLOGY YES; Platelet Count 299 K/mm3 (150-450); RBC Distribution Width CV 18.7 % (11.6-14.6); Red Blood Count 3.13 M/mm3 (4.2-5.4); White Blood Count 8.4 K/mm3 (4.4-11.0)
[2017-09-22 06:28] LABS: Anion Gap 7 (5-15); BUN 12 mg/dL (7-18); Calcium,Total 8.1 mg/dL (8.5-10.1); Chloride 112 mmol/L (98-107); EST Glomerular Filtration Rate 57 mL/min (>60); Est Glom Filt Rate - Afr Amer 69 mL/min (>60); Estimated Creatinine Clearance 52.33 ml/min; Glucose 83 mg/dL (74-106); Potassium 3.5 mmol/L (3.5-5.1); Sodium Level 146 mmol/L (136-145)
--- NOTE | 2017-09-22 06:50 | NURSING ---
Discussed code status with patient, patient wishes to be a DNRCC-A.
[2017-09-22 07:20] LABS: Eosinophil 1 % (0-5); Lymphocyte 15 % (19-41); Metamyelocyte 1 % (0-1); Monocyte 4 % (0-10); Neutrophil-Band 1 % (0-5); Neutrophil-Segmented 78 % (47-70); Nucleated Red Bld Cells,Manual 1 % (0-5); Total Cells Counted 100 (MANUAL DIFF)
[2017-09-22 07:21] LABS: Anisocytosis 1+; Hypochromasia 1+; Platelet Estimate ADEQUATE (ADEQ); Polychromasia 1+
[2017-09-22 07:24] LABS: Absolute Lymphocyte Count 1.26 X10^3/ul (0.83-4.51); Absolute Neutrophil Count 6.6 X10^3/uL (2.0-7.7)
--- NOTE | 2017-09-22 10:50 | NURSING ---
Pt requesting prednisone be changed to home regimen, Dr. Ortega made aware, okay to change to home dose. Prednison 5mg BID at 0600 and 1200 and prednisone 2.5mg PO daily at 1700.
[2017-09-22] MEDS: Tuberculin,Purif.prot.deriv. 50 TU/ML Vial 5 ML ID (11:36)
--- NOTE | 2017-09-22 12:11 | NURSING ---
Patient had first TB test done at [place] on 09/16/17 with a negative result.
--- NOTE | 2017-09-22 12:19 | PCM.PN.RX ---
<Leighton Cantrell Samantha - Last Filed: 09/22/17 12:19> Progress Note - Pharmacy Subjective: TCU Admission Objective: Allergies amoxicillin trihydrate [From Augmentin] Adverse Reaction (Verified 09/18/17 22:10) Upset Stomach diclofenac sodium [From Arthrotec] Adverse Reaction (Verified 09/18/17 22:10) Upset Stomach doxycycline Adverse Reaction (Verified 09/18/17 22:10) Upset Stomach erythromycin base Adverse Reaction (Verified 09/18/17 22:10) Upset Stomach etodolac [From Lodine] Adverse Reaction (Verified 09/18/17 22:10) Upset Stomach flurbiprofen [From Ansaid] Adverse Reaction (Verified 09/18/17 22:10) Upset Stomach misoprostol [From Arthrotec] Adverse Reaction (Verified 09/18/17 22:10) Upset Stomach NSAIDS (Non-Steroidal Anti-Inflamma Adverse Reaction (Verified 09/18/17 22:10) Other potassium clavulanate [From Augmentin] Adverse Reaction (Verified 09/18/17 22:10) Upset Stomach rofecoxib [From Vioxx] Adverse Reaction (Verified 09/18/17 22:10) Upset Stomach Home Medications Medication Instructions Recorded Fluticasone 0.05% [Flonase Nasal 1 spray NASAL PRN PRN 09/18/17 [place]] Omeprazole [Prilosec] 20 mg PO DAILY 09/18/17 Prednisone 5 mg PO BID 09/18/17 Acetaminophen [Tylenol Tablet] 650 mg PO Q6H PRN PRN tablet 09/21/17 Docusate Sodium [Colace] 100 mg PO DAILY 09/21/17 Enoxaparin [Lovenox] 70 mg SC Q12 09/21/17 Ensure Enlive 120 ml PO 4X/DAY 09/21/17 Loratadine [Claritin] 10 mg PO DAILY 09/21/17 Lorazepam [Ativan] 0.5 mg PO QHS #5 tab 09/21/17 Magnesium Hydroxide [Milk Of 30 ml PO DAILY PRN udc 09/21/17 Magnesia] Metoprolol Tartrate [Lopressor 12.5 mg PO BID 09/21/17 (beta janny)] Current Medications Generic Name Dose Route Start Last Admin Trade Name Freq PRN Reason Stop Dose Admin Acetaminophen 1,000 mg 09/21/17 21:21 Tylenol PO Q8H PRN PRN MILD PAIN (1-3/10) Bisacodyl 10 mg 09/21/17 17:43 Dulcolax RECTAL DAILY PRN Constipation Calamine/Phenol 1 applic 09/21/17 22:00 09/22/17 06:09 Calmoseptine Ointment TOPICAL 1 applicatio 0600,2200 [facility] Administration Protocol Emollient Ointment 1 applic 09/21/17 22:00 09/22/17 06:10 Eucerin Intensive Repair TOPICAL 1 applicatio 0600,2200 [facility] Administration Protocol Enoxaparin Sodium 70 mg 09/21/17 21:00 09/22/17 06:10 Lovenox SC 70 mg Q12 DINO Administration Fluticasone Propionate 1 spray 09/21/17 17:52 Flonase Nasal [place] NASAL DAILY PRN PRN addisons Loratadine 10 mg 09/22/17 06:00 09/22/17 06:09 Claritin PO 10 mg DAILY DINO Administration Lorazepam 0.5 mg 09/21/17 22:00 09/21/17 21:16 Ativan PO 0.5 mg QHS DINO Administration Metoprolol Tartrate 12.5 mg 09/21/17 18:00 09/22/17 06:10 Lopressor (Beta Janny) PO 12.5 mg BID DINO Administration Nutritional Formula (Lactose Free) 120 ml 09/21/17 22:00 09/22/17 11:25 Ensure Enlive PO Not Given 4X/DAY [facility] Pantoprazole Sodium 20 mg 09/22/17 06:00 09/22/17 06:09 Protonix PO 20 mg DAILY DINO Administration Polyethylene Glycol 17 gm 09/22/17 06:00 09/22/17 06:09 Miralax PO 17 gm DAILY DINO Administration Polysaccharide Iron Complex 150 mg 09/22/17 09:30 09/22/17 11:26 Ferrex 150 PO Not Given DAILYCM [facility] Prednisone 5 mg 09/22/17 12:00 09/22/17 11:27 PO 5 mg 0800,1200 [facility] Administration Prednisone 2.5 mg 09/22/17 17:00 PO DAILY@1700 [facility] Senna/Docusate Sodium 1 tablet 09/22/17 06:00 09/22/17 06:09 Senokot-S, Zakiya-Colace PO 1 tablet BID DINO Administration Tuberculin PPD 5 tu 09/29/17 10:00 Tubersol, Aplisol, Ppd ID 09/29/17 10:01 X1 ONE Problem List Debility (Acute) Osteoarthritis (Chronic) Low back pain (Chronic) Allergic rhinitis (Chronic) Anxiety (Chronic) GERD (gastroesophageal reflux disease) (Chronic) Vital Signs Temp Pulse Resp BP Pulse Ox 98.7 F 102 H 20 H 146/81 H 98 09/21/17 17:14 09/22/17 06:10 09/21/17 17:14 09/22/17 06:10 09/21/17 17:14 Oxygen Delivery Method Room Air Weight: 71.5 kg Body Mass Index (BMI) 31.8 Sodium 146 mmol/L (136-145) H 09/22/17 05:10 Potassium 3.5 mmol/L (3.5-5.1) 09/22/17 05:10 Chloride 112 mmol/L (98-107) H 09/22/17 05:10 Carbon Dioxide 27.0 mmol/L (21.0-32.0) 09/22/17 05:10 Anion Gap 7 (5-15) 09/22/17 05:10 BUN 12 mg/dL (7-18) 09/22/17 05:10 Creatinine 1.00 mg/dL (0.55-1.02) 09/22/17 05:10 Est GFR (MDRD) Af Amer 69 mL/min (>60) 09/22/17 05:10 Est GFR (MDRD) Non-Af 57 mL/min (>60) L 09/22/17 05:10 BUN/Creatinine Ratio 12.0 RATIO (10-20) 09/22/17 05:10 Glucose 83 mg/dL (74-106) 09/22/17 05:10 Assessment/Plan: 1) Pain APAP for mild pain. Continue to monitor prn medication use, daily pain scores. 2) HTN Metoprolol twice daily. Avg BP/HR not at goal at this time. Continue to monitor BP/HR. 3) [place] Prednisone 3x daily. Continue to monitor clinically. 4) DVT Enoxaparin weight-based twice daily. CrCl > 30 mL/min. Hgb/Hct stable. Continue to monitor renal function, s/s bleeding/clot. 5) GI Pantoprazole daily. Continue to monitor s/s GI distress. 6) Nutrition Ensure, Fe. Continue to monitor clinically. 7) Derm Calmoseptine, emollient topically. Continue to monitor clinically. 8) Allergic Rhinitis Loratadine daily, prn fluticasone spray. Continue to monitor prn medication use, for allergy symptoms. Psychotropic Medications: 9) Anxiety Lorazepam at HS. care home use. Continue to monitor for anxiety. Unnecessary Medications: None Bowel Regimen: 10) Senna/s, PEG, prn bisacodyl. Continue to monitor prn medication use, constipation/diarrhea. Date of Note:: 09/22/17 - Provider Comments Provider responsibility: Provider responsible to enter orders to implement recommendations <Alejo Ortega Chi - Last Filed: 09/22/17 17:55> Progress Note - Pharmacy Subjective: [] Objective: Allergies amoxicillin trihydrate [From Augmentin] Adverse Reaction (Verified 09/18/17 22:10) Upset Stomach diclofenac sodium [From Arthrotec] Adverse Reaction (Verified 09/18/17 22:10) Upset Stomach doxycycline Adverse Reaction (Verified 09/18/17 22:10) Upset Stomach erythromycin base Adverse Reaction (Verified 09/18/17 22:10) Upset Stomach etodolac [From Lodine] Adverse Reaction (Verified 09/18/17 22:10) Upset Stomach flurbiprofen [From Ansaid] Adverse Reaction (Verified 09/18/17 22:10) Upset Stomach misoprostol [From Arthrotec] Adverse Reaction (Verified 09/18/17 22:10) Upset Stomach NSAIDS (Non-Steroidal Anti-Inflamma Adverse Reaction (Verified 09/18/17 22:10) Other potassium clavulanate [From Augmentin] Adverse Reaction (Verified 09/18/17 22:10) Upset Stomach rofecoxib [From Vioxx] Adverse Reaction (Verified 09/18/17 22:10) Upset Stomach Home Medications Medication Instructions Recorded Fluticasone 0.05% [Flonase Nasal 1 spray NASAL PRN PRN 09/18/17 [place]] Omeprazole [Prilosec] 20 mg PO DAILY 09/18/17 Prednisone 5 mg PO BID 09/18/17 Acetaminophen [Tylenol Tablet] 650 mg PO Q6H PRN PRN tablet 09/21/17 Docusate Sodium [Colace] 100 mg PO DAILY 09/21/17 Enoxaparin [Lovenox] 70 mg SC Q12 09/21/17 Ensure Enlive 120 ml PO 4X/DAY 09/21/17 Loratadine [Claritin] 10 mg PO DAILY 09/21/17 Lorazepam [Ativan] 0.5 mg PO QHS #5 tab 09/21/17 Magnesium Hydroxide [Milk Of 30 ml PO DAILY PRN udc 09/21/17 Magnesia] Metoprolol Tartrate [Lopressor 12.5 mg PO BID 09/21/17 (beta janny)] Current Medications Generic Name Dose Route Start Last Admin Trade Name Freq PRN Reason Stop Dose Admin Acetaminophen 1,000 mg 09/21/17 21:21 Tylenol PO Q8H PRN PRN MILD PAIN (1-3/10) Bisacodyl 10 mg 09/21/17 17:43 Dulcolax RECTAL DAILY PRN Constipation Calamine/Phenol 1 applic 09/21/17 22:00 09/22/17 06:09 Calmoseptine Ointment TOPICAL 1 applicatio 0600,2200 [facility] Administration Protocol Emollient Ointment 1 applic 09/21/17 22:00 09/22/17 06:10 Eucerin Intensive Repair TOPICAL 1 applicatio 0600,2200 [facility] Administration Protocol Enoxaparin Sodium 70 mg 09/21/17 21:00 09/22/17 17:42 Lovenox SC 70 mg Q12 DINO Administration Fluticasone Propionate 1 spray 09/21/17 17:52 Flonase Nasal [place] NASAL DAILY PRN PRN addisons Loratadine 10 mg 09/22/17 06:00 09/22/17 06:09 Claritin PO 10 mg DAILY DINO Administration Lorazepam 0.5 mg 09/21/17 22:00 09/21/17 21:16 Ativan PO 0.5 mg QHS DINO Administration Metoprolol Tartrate 12.5 mg 09/21/17 18:00 09/22/17 17:41 Lopressor (Beta Janny) PO 12.5 mg BID DINO Administration Pantoprazole Sodium 20 mg 09/22/17 06:00 09/22/17 06:09 Protonix PO 20 mg DAILY DINO Administration Polyethylene Glycol 17 gm 09/22/17 06:00 09/22/17 06:09 Miralax PO 17 gm DAILY DINO Administration Polysaccharide Iron Complex 150 mg 09/22/17 09:30 09/22/17 11:26 Ferrex 150 PO Not Given DAILYCM DINO Prednisone 5 mg 09/22/17 12:00 09/22/17 11:27 PO 5 mg 0800,1200 DINO Administration Prednisone 2.5 mg 09/22/17 17:00 09/22/17 17:41 PO 2.5 mg DAILY@1700 DINO Administration Senna/Docusate Sodium 1 tablet 09/22/17 06:00 09/22/17 17:42 Senokot-S, Zakiya-Colace PO 1 tablet BID DINO Administration Tuberculin PPD 5 tu 09/29/17 10:00 Tubersol, Aplisol, Ppd ID 09/29/17 10:01 X1 ONE Problem List Debility (Acute) Osteoarthritis (Chronic) Low back pain (Chronic) Allergic rhinitis (Chronic) Anxiety (Chronic) GERD (gastroesophageal reflux disease) (Chronic) Vital Signs Temp Pulse Resp BP Pulse Ox 97.9 F 114 H 18 138/82 H 95 09/22/17 15:11 09/22/17 17:41 09/22/17 15:11 09/22/17 17:41 09/22/17 15:11 Oxygen Delivery Method Room Air Weight: 71.5 kg Body Mass Index (BMI) 31.8 Sodium 146 mmol/L (136-145) H 09/22/17 05:10 Potassium 3.5 mmol/L (3.5-5.1) 09/22/17 05:10 Chloride 112 mmol/L (98-107) H 09/22/17 05:10 Carbon Dioxide 27.0 mmol/L (21.0-32.0) 09/22/17 05:10 Anion Gap 7 (5-15) 09/22/17 05:10 BUN 12 mg/dL (7-18) 09/22/17 05:10 Creatinine 1.00 mg/dL (0.55-1.02) 09/22/17 05:10 Est GFR (MDRD) Af Amer 69 mL/min (>60) 09/22/17 05:10 Est GFR (MDRD) Non-Af 57 mL/min (>60) L 09/22/17 05:10 BUN/Creatinine Ratio 12.0 RATIO (10-20) 09/22/17 05:10 Glucose 83 mg/dL (74-106) 09/22/17 05:10 Assessment/Plan: Psychotropic Medications: Unnecessary Medications: Bowel Regimen: - Provider Comments Provider responsibility: Provider responsible to enter orders to implement recommendations Provider Comments to Recommendations by Pharmacy: Agree
--- NOTE | 2017-09-22 12:25 | PHA.CONS_ITS ---
<Leighton Cantrell Samantha - Last Filed: 09/22/17 12:19> Progress Note - Pharmacy Subjective: TCU Admission Objective: Allergies amoxicillin trihydrate [From Augmentin] Adverse Reaction (Verified 09/18/17 22: 10) Upset Stomach diclofenac sodium [From Arthrotec] Adverse Reaction (Verified 09/18/17 22:10) Upset Stomach doxycycline Adverse Reaction (Verified 09/18/17 22:10) Upset Stomach erythromycin base Adverse Reaction (Verified 09/18/17 22:10) Upset Stomach etodolac [From Lodine] Adverse Reaction (Verified 09/18/17 22:10) Upset Stomach flurbiprofen [From Ansaid] Adverse Reaction (Verified 09/18/17 22:10) Upset Stomach misoprostol [From Arthrotec] Adverse Reaction (Verified 09/18/17 22:10) Upset Stomach NSAIDS (Non-Steroidal Anti-Inflamma Adverse Reaction (Verified 09/18/17 22:10) Other potassium clavulanate [From Augmentin] Adverse Reaction (Verified 09/18/17 22:10 ) Upset Stomach rofecoxib [From Vioxx] Adverse Reaction (Verified 09/18/17 22:10) Upset Stomach Home Medications Medication Instructions Recorded Fluticasone 0.05% [Flonase Nasal 1 spray NASAL PRN PRN 09/18/17 [place]] Omeprazole [Prilosec] 20 mg PO DAILY 09/18/17 Prednisone 5 mg PO BID 09/18/17 Acetaminophen [Tylenol Tablet] 650 mg PO Q6H PRN PRN tablet 09/21/17 Docusate Sodium [Colace] 100 mg PO DAILY 09/21/17 Enoxaparin [Lovenox] 70 mg SC Q12 09/21/17 Ensure Enlive 120 ml PO 4X/DAY 09/21/17 Loratadine [Claritin] 10 mg PO DAILY 09/21/17 Lorazepam [Ativan] 0.5 mg PO QHS #5 tab 09/21/17 Magnesium Hydroxide [Milk Of 30 ml PO DAILY PRN udc 09/21/17 Magnesia] Metoprolol Tartrate [Lopressor 12.5 mg PO BID 09/21/17 (beta janny)] Current Medications Generic Name Dose Route Start Last Admin Trade Name Freq PRN Reason Stop Dose Admin Acetaminophen 1,000 mg 09/21/17 21:21 Tylenol PO Q8H PRN PRN MILD PAIN (1-3/10) Bisacodyl 10 mg 09/21/17 17:43 Dulcolax RECTAL DAILY PRN Constipation Calamine/Phenol 1 applic 09/21/17 22:00 09/22/17 06:09 Calmoseptine Ointment TOPICAL 1 applicatio 0600,2200 [facility] Administration Protocol Emollient Ointment 1 applic 09/21/17 22:00 09/22/17 06:10 Eucerin Intensive Repair TOPICAL 1 applicatio 0600,2200 [facility] Administration Protocol Enoxaparin Sodium 70 mg 09/21/17 21:00 09/22/17 06:10 Lovenox SC 70 mg Q12 DINO Administration Fluticasone Propionate 1 spray 09/21/17 17:52 Flonase Nasal [place] NASAL DAILY PRN PRN addisons Loratadine 10 mg 09/22/17 06:00 09/22/17 06:09 Claritin PO 10 mg DAILY DINO Administration Lorazepam 0.5 mg 09/21/17 22:00 09/21/17 21:16 Ativan PO 0.5 mg QHS DINO Administration Metoprolol Tartrate 12.5 mg 09/21/17 18:00 09/22/17 06:10 Lopressor (Beta Janny) PO 12.5 mg BID DINO Administration Nutritional Formula (Lactose Free) 120 ml 09/21/17 22:00 09/22/17 11:25 Ensure Enlive PO Not Given 4X/DAY [facility] Pantoprazole Sodium 20 mg 09/22/17 06:00 09/22/17 06:09 Protonix PO 20 mg DAILY DINO Administration Polyethylene Glycol 17 gm 09/22/17 06:00 09/22/17 06:09 Miralax PO 17 gm DAILY DINO Administration Polysaccharide Iron Complex 150 mg 09/22/17 09:30 09/22/17 11:26 Ferrex 150 PO Not Given DAILYCM [facility] Prednisone 5 mg 09/22/17 12:00 09/22/17 11:27 PO 5 mg 0800,1200 [facility] Administration Prednisone 2.5 mg 09/22/17 17:00 PO DAILY@1700 [facility] Senna/Docusate Sodium 1 tablet 09/22/17 06:00 09/22/17 06:09 Senokot-S, [place]-Colace PO 1 tablet BID DINO Administration Tuberculin PPD 5 tu 09/29/17 10:00 Tubersol, Aplisol, Ppd ID 09/29/17 10:01 X1 ONE Problem List Debility (Acute) Osteoarthritis (Chronic) Low back pain (Chronic) Allergic rhinitis (Chronic) Anxiety (Chronic) GERD (gastroesophageal reflux disease) (Chronic) Vital Signs Temp Pulse Resp BP Pulse Ox 98.7 F 102 H 20 H 146/81 H 98 09/21/17 17:14 09/22/17 06:10 09/21/17 17:14 09/22/17 06:10 09/21/17 17:14 Oxygen Delivery Method Room Air Weight: 71.5 kg Body Mass Index (BMI) 31.8 Sodium 146 mmol/L (136-145) H 09/22/17 05:10 Potassium 3.5 mmol/L (3.5-5.1) 09/22/17 05:10 Chloride 112 mmol/L (98-107) H 09/22/17 05:10 Carbon Dioxide 27.0 mmol/L (21.0-32.0) 09/22/17 05:10 Anion Gap 7 (5-15) 09/22/17 05:10 BUN 12 mg/dL (7-18) 09/22/17 05:10 Creatinine 1.00 mg/dL (0.55-1.02) 09/22/17 05:10 Est GFR (MDRD) Af Amer 69 mL/min (>60) 09/22/17 05:10 Est GFR (MDRD) Non-Af 57 mL/min (>60) L 09/22/17 05:10 BUN/Creatinine Ratio 12.0 RATIO (10-20) 09/22/17 05:10 Glucose 83 mg/dL (74-106) 09/22/17 05:10 Assessment/Plan: 1) Pain APAP for mild pain. Continue to monitor prn medication use, daily pain scores. 2) HTN Metoprolol twice daily. Avg BP/HR not at goal at this time. Continue to monitor BP/HR. 3) [place] Prednisone 3x daily. Continue to monitor clinically. 4) DVT Enoxaparin weight-based twice daily. CrCl > 30 mL/min. Hgb/Hct stable. Continue to monitor renal function, s/s bleeding/clot. 5) GI Pantoprazole daily. Continue to monitor s/s GI distress. 6) Nutrition Ensure, Fe. Continue to monitor clinically. 7) Derm Calmoseptine, emollient topically. Continue to monitor clinically. 8) Allergic Rhinitis Loratadine daily, prn fluticasone spray. Continue to monitor prn medication use, for allergy symptoms. Psychotropic Medications: 9) Anxiety Lorazepam at HS. bed bug exterminator use. Continue to monitor for anxiety. Unnecessary Medications: None Bowel Regimen: 10) Senna/s, PEG, prn bisacodyl. Continue to monitor prn medication use, constipation/diarrhea. Date of Note:: 09/22/17 - Provider Comments Provider responsibility: Provider responsible to enter orders to implement recommendations <Alejo Ortega Chi - Last Filed: 09/22/17 17:55> Progress Note - Pharmacy Subjective: [] Objective: Allergies amoxicillin trihydrate [From Augmentin] Adverse Reaction (Verified 09/18/17 22: 10) Upset Stomach diclofenac sodium [From Arthrotec] Adverse Reaction (Verified 09/18/17 22:10) Upset Stomach doxycycline Adverse Reaction (Verified 09/18/17 22:10) Upset Stomach erythromycin base Adverse Reaction (Verified 09/18/17 22:10) Upset Stomach etodolac [From [place]] Adverse Reaction (Verified 09/18/17 22:10) Upset Stomach flurbiprofen [From Ansaid] Adverse Reaction (Verified 09/18/17 22:10) Upset Stomach misoprostol [From Arthrotec] Adverse Reaction (Verified 09/18/17 22:10) Upset Stomach NSAIDS (Non-Steroidal Anti-Inflamma Adverse Reaction (Verified 09/18/17 22:10) Other potassium clavulanate [From Augmentin] Adverse Reaction (Verified 09/18/17 22:10 ) Upset Stomach rofecoxib [From Vioxx] Adverse Reaction (Verified 09/18/17 22:10) Upset Stomach Home Medications Medication Instructions Recorded Fluticasone 0.05% [Flonase Nasal 1 spray NASAL PRN PRN 09/18/17 [place]] Omeprazole [Prilosec] 20 mg PO DAILY 09/18/17 Prednisone 5 mg PO BID 09/18/17 Acetaminophen [Tylenol Tablet] 650 mg PO Q6H PRN PRN tablet 09/21/17 Docusate Sodium [Colace] 100 mg PO DAILY 09/21/17 Enoxaparin [Lovenox] 70 mg SC Q12 09/21/17 Ensure Enlive 120 ml PO 4X/DAY 09/21/17 Loratadine [Claritin] 10 mg PO DAILY 09/21/17 Lorazepam [Ativan] 0.5 mg PO QHS #5 tab 09/21/17 Magnesium Hydroxide [Milk Of 30 ml PO DAILY PRN udc 09/21/17 [place]] Metoprolol Tartrate [Lopressor 12.5 mg PO BID 09/21/17 (beta janny)] Current Medications Generic Name Dose Route Start Last Admin Trade Name Freq PRN Reason Stop Dose Admin Acetaminophen 1,000 mg 09/21/17 21:21 Tylenol PO Q8H PRN PRN MILD PAIN (1-3/10) Bisacodyl 10 mg 09/21/17 17:43 Dulcolax RECTAL DAILY PRN Constipation Calamine/Phenol 1 applic 09/21/17 22:00 09/22/17 06:09 Calmoseptine Ointment TOPICAL 1 applicatio 0600,2200 [facility] Administration Protocol Emollient Ointment 1 applic 09/21/17 22:00 09/22/17 06:10 Eucerin Intensive Repair TOPICAL 1 applicatio 0600,2200 [facility] Administration Protocol Enoxaparin Sodium 70 mg 09/21/17 21:00 09/22/17 17:42 Lovenox SC 70 mg Q12 DINO Administration Fluticasone Propionate 1 spray 09/21/17 17:52 Flonase Nasal [place] NASAL DAILY PRN PRN addisons Loratadine 10 mg 09/22/17 06:00 09/22/17 06:09 Claritin PO 10 mg DAILY [facility]INO Administration Lorazepam 0.5 mg 09/21/17 22:00 09/21/17 21:16 Ativan PO 0.5 mg QHS DINO Administration Metoprolol Tartrate 12.5 mg 09/21/17 18:00 09/22/17 17:41 Lopressor (Beta Janny) PO 12.5 mg BID DINO Administration Pantoprazole Sodium 20 mg 09/22/17 06:00 09/22/17 06:09 Protonix PO 20 mg DAILY DINO Administration Polyethylene Glycol 17 gm 09/22/17 06:00 09/22/17 06:09 Miralax PO 17 gm DAILY DINO Administration Polysaccharide Iron Complex 150 mg 09/22/17 09:30 09/22/17 11:26 Ferrex 150 PO Not Given DAILYCM [facility] Prednisone 5 mg 09/22/17 12:00 09/22/17 11:27 PO 5 mg 0800,1200 [facility] Administration Prednisone 2.5 mg 09/22/17 17:00 09/22/17 17:41 PO 2.5 mg DAILY@1700 [facility] Administration Senna/Docusate Sodium 1 tablet 09/22/17 06:00 09/22/17 17:42 Senokot-S, Zakiya-Colace PO 1 tablet BID DINO Administration Tuberculin PPD 5 tu 09/29/17 10:00 Tubersol, Aplisol, Ppd ID 09/29/17 10:01 X1 ONE Problem List Debility (Acute) Osteoarthritis (Chronic) Low back pain (Chronic) Allergic rhinitis (Chronic) Anxiety (Chronic) GERD (gastroesophageal reflux disease) (Chronic) Vital Signs Temp Pulse Resp BP Pulse Ox 97.9 F 114 H 18 138/82 H 95 09/22/17 15:11 09/22/17 17:41 09/22/17 15:11 09/22/17 17:41 09/22/17 15:11 Oxygen Delivery Method Room Air Weight: 71.5 kg Body Mass Index (BMI) 31.8 Sodium 146 mmol/L (136-145) H 09/22/17 05:10 Potassium 3.5 mmol/L (3.5-5.1) 09/22/17 05:10 Chloride 112 mmol/L (98-107) H 09/22/17 05:10 Carbon Dioxide 27.0 mmol/L (21.0-32.0) 09/22/17 05:10 Anion Gap 7 (5-15) 09/22/17 05:10 BUN 12 mg/dL (7-18) 09/22/17 05:10 Creatinine 1.00 mg/dL (0.55-1.02) 09/22/17 05:10 Est GFR (MDRD) Af Amer 69 mL/min (>60) 09/22/17 05:10 Est GFR (MDRD) Non-Af 57 mL/min (>60) L 09/22/17 05:10 BUN/Creatinine Ratio 12.0 RATIO (10-20) 09/22/17 05:10 Glucose 83 mg/dL (74-106) 09/22/17 05:10 Assessment/Plan: Psychotropic Medications: Unnecessary Medications: Bowel Regimen: - Provider Comments Provider responsibility: Provider responsible to enter orders to implement recommendations Provider Comments to Recommendations by Pharmacy: Agree
[2017-09-22 12:39] LABS: Pathologist Review Reviewed
[2017-09-22 15:11] VITALS: BP 138/82; PULSE 114; RESP 18; TEMP 36.6; O2SAT 95
--- NOTE | 2017-09-22 16:05 | CHAPLAIN ---
Type of Pastoral Visit _x__ Initial Visit ___ Follow-up Visit ___ On-call Visit ___ General Patient Visit ___ Spiritual Assessment ___ Family Conference ___ Bereavement ___ Rapid Response ___ Code Blue ___ Other (describe below) Pastoral Care Referral From ___ Patient ___ Family ___ Nurse ___ Physician _x__ Loading Machine Operator ___ Cellophane Tester ___ Other (describe below) Sacrament/Intervention ___ Active listening ___ Anointing ___ Latter Day ___ Bereavement ___ Communion ___ Tatum exploration ___ ___ Life review ___ Prayer ___ Reconciliation ___ Sacrament of Sick _x__ Supportive presence ___ Wedding ___ Other (describe below) Pastoral Comments patient was introduced to library consultant services; pt said that she has had many visitors and people in room today; that along with therapy has left her tired and really wanting to rest/nap; offered to return at another time and pt agreed that would be better
[2017-09-22 17:41] VITALS: BP 138/82; PULSE 114
[2017-09-22] MEDS: predniSONE 5 MG Tablet 2.5 MG PO (17:41)
--- NOTE | 2017-09-22 17:47 | NURSING ---
Assisting pt to restroom, this nurse pulled table away and cell phone fell on the floor. This nurse apologized to pt, she stated, it's ok, no cracks or damage to phone noted. Pt attempted to use phone and stated it is working fine.
[2017-09-22] MEDS: LORazepam 0.5 MG Tablet PO (19:52)
[2017-09-22] MEDS: Acetaminophen 500 MG Tablet 1000 MG PO (19:54)
[2017-09-23] MEDS: Enoxaparin 80 MG/0.8 ML Syringe 70 MG SC ×2 (05:28→17:53)
[2017-09-23 05:29] VITALS: BP 145/78; PULSE 101; RESP 16; O2SAT 96
[2017-09-23] MEDS: Metoprolol Tartrate 25 MG Tablet 12.5 MG PO ×2 (05:29→17:55)
[2017-09-23] MEDS: Loratadine 10 MG Tablet PO (05:29)
[2017-09-23] MEDS: Pantoprazole Sodium 20 MG Tablet PO (05:30)
[2017-09-23] MEDS: Menthol/Lanolin/Calamine/Znox 113 GM Tube 1 APPLIC TOPICAL ×2 (05:30→21:02)
[2017-09-23] MEDS: predniSONE 5 MG Tablet PO ×2 (05:30→11:40)
[2017-09-23] MEDS: Iron Polysaccharide Complex 150 MG CAPSULE PO (08:22)
[2017-09-23 15:38] VITALS: BP 126/87; PULSE 113; RESP 20; TEMP 36.8; O2SAT 94
[2017-09-23 17:55] VITALS: BP 126/87; PULSE 113
[2017-09-23] MEDS: predniSONE 5 MG Tablet 2.5 MG PO (17:56)
[2017-09-23 21:00] VITALS: PULSE 88; RESP 18; O2SAT 96
[2017-09-23] MEDS: Acetaminophen 500 MG Tablet 1000 MG PO (21:01)
[2017-09-24] MEDS: Menthol/Lanolin/Calamine/Znox 113 GM Tube 1 APPLIC TOPICAL ×2 (05:41→20:24)
[2017-09-24] MEDS: Enoxaparin 80 MG/0.8 ML Syringe 70 MG SC ×2 (05:43→17:54)
[2017-09-24] MEDS: predniSONE 5 MG Tablet PO ×2 (05:43→11:22)
[2017-09-24] MEDS: Pantoprazole Sodium 20 MG Tablet PO (05:43)
[2017-09-24 05:44] VITALS: BP 145/92; PULSE 88
[2017-09-24] MEDS: Metoprolol Tartrate 25 MG Tablet 12.5 MG PO ×2 (05:44→17:52)
[2017-09-24] MEDS: Loratadine 10 MG Tablet PO (05:45)
[2017-09-24] MEDS: Senna/Docusate Sodium 1 Tablet PO (05:50)
--- NOTE | 2017-09-24 06:04 | NURSING ---
After sleeping with trend of bed up/legs elevated above head, pt said pain decreased and swelling was visibly improved. Pt had several questions regarding blood pressure/medications. Blood pressure reading high from monitor, pulse 100 taken apically. Pt stated I have never had high blood pressure or high pulse in my life could the toprol be causing the pain in my legs? Reviewed documented vitals after pt denied having history of 'ever' being tachycardic stating 'my heart is perfect' All documented pulse above 100. Explained action of toprol on heart rate/blood pressure and how everyone's baseline/normal is different. Pulse rate was normal rhythm, not bounding or thready. Explained vitals would be checked again later this morning, and that it was okay for pt to lie with legs elevated if it helped with pain and swelling, but reminded her to sit for a few moments prior to standing up, which she stated she understood. Pt was very appreciative of information reviewed and said several times thank you so much for taking the time to explain this to me' Repositioned for comfort, encouraged to call for staff assist when needed, agreeable to this. RN aware, continuing to monitor.
[2017-09-24 15:26] VITALS: BP 132/75; PULSE 108; RESP 18; TEMP 36.9; O2SAT 95
[2017-09-24 17:52] VITALS: BP 135/75; PULSE 108
[2017-09-24] MEDS: predniSONE 5 MG Tablet 2.5 MG PO (17:53)
[2017-09-24] MEDS: Acetaminophen 500 MG Tablet 1000 MG PO (20:29)
[2017-09-25] MEDS: Menthol/Lanolin/Calamine/Znox 113 GM Tube 1 APPLIC TOPICAL ×2 (06:47→20:18)
[2017-09-25 06:48] VITALS: BP 165/83; PULSE 84
[2017-09-25] MEDS: Metoprolol Tartrate 25 MG Tablet 12.5 MG PO ×2 (06:48→17:30)
[2017-09-25] MEDS: Pantoprazole Sodium 20 MG Tablet PO (06:48)
[2017-09-25] MEDS: Enoxaparin 80 MG/0.8 ML Syringe 70 MG SC ×2 (06:49→17:31)
[2017-09-25] MEDS: Loratadine 10 MG Tablet PO (06:49)
[2017-09-25] MEDS: predniSONE 5 MG Tablet PO ×2 (06:50→11:29)
[2017-09-25] MEDS: Senna/Docusate Sodium 1 Tablet PO ×2 (06:55→17:29)
[2017-09-25] MEDS: Iron Polysaccharide Complex 150 MG CAPSULE PO (08:02)
[2017-09-25 12:35] VITALS: PULSE 108; RESP 18; O2SAT 95
[2017-09-25 15:31] VITALS: BP 136/66; PULSE 109; RESP 18; TEMP 36.7; O2SAT 97
[2017-09-25 17:30] VITALS: BP 136/66; PULSE 109
--- NOTE | 2017-09-25 19:06 | NURSING ---
Pt refusing Ativan at HS at times. Order made PRN.
[2017-09-26] MEDS: Acetaminophen 500 MG Tablet 1000 MG PO (02:06)
[2017-09-26] MEDS: Menthol/Lanolin/Calamine/Znox 113 GM Tube 1 APPLIC TOPICAL ×2 (06:44→19:46)
[2017-09-26] MEDS: predniSONE 5 MG Tablet PO ×2 (06:45→11:32)
[2017-09-26] MEDS: Pantoprazole Sodium 20 MG Tablet PO (06:45)
[2017-09-26] MEDS: Loratadine 10 MG Tablet PO (06:45)
[2017-09-26 06:46] VITALS: BP 156/82; PULSE 72
[2017-09-26] MEDS: Senna/Docusate Sodium 1 Tablet PO ×2 (06:46→17:08)
[2017-09-26] MEDS: Enoxaparin 80 MG/0.8 ML Syringe 70 MG SC ×2 (06:47→17:06)
[2017-09-26] MEDS: Iron Polysaccharide Complex 150 MG CAPSULE PO (08:22)
[2017-09-26] MEDS: HYDROCHLOROTHIAZIDE 12.5 MG CAPSULE PO (09:58)
[2017-09-26 10:30] VITALS: BP 131/77; PULSE 137; RESP 24; TEMP 36.2; O2SAT 96
--- NOTE | 2017-09-26 10:34 | NURSING ---
Addendum entered by Jodi Balbuena 09/26/17 11:16: Vitals reassessed, WNL, pt resting in bed, states I feel much better. Original Note: PT CAME BACK FROM THERAPY AND STATED SHE FELT SICK TO STOMACH AND SWEATY . VITALS DONE, PT RESTING. REPORTED TO JANET MAIER
[2017-09-26 11:20] VITALS: BP 125/80; PULSE 102
[2017-09-26 15:42] VITALS: BP 141/94; PULSE 118; RESP 20; TEMP 36.7; O2SAT 97
--- NOTE | 2017-09-26 17:21 | NURSING ---
Dr. Ortega reviewed vitals, aware pt refused all cardiac meds today, educated on importance of medications. Updated on meds being discontinued.
[2017-09-26] MEDS: predniSONE 5 MG Tablet 2.5 MG PO (19:46)
[2017-09-26 21:12] VITALS: PULSE 104; RESP 20; O2SAT 96
--- NOTE | 2017-09-26 22:33 | NURSING ---
Pt very upset, tearful, working on ipad in room emailing someone regarding her dogs her family gave away upon admission to hospital. 1:1 effective at redirecting thoughts, assured pt she was not out of line for wanting to know what happened to her dogs, as her family has told her. Offered pt prn ativan, she refused saying it makes her hyper. Asked pt about insomnia or sleep issues before she was in the hospital d/t pt barely sleeping at all, stating it is causing her to be even more emotional/distressed. She said she has always had trouble sleeping at would take two benadryl when needed and it always helped. Explained benadryl is not a narcotic like ativan, it is over the counter and sometimes used as a sleep aid. Explained I would let the RN know, and we could ask the doctor for prn order. Pt very pleased with this, and very appreciative and thankful to staff for 1:1/listening to her. Assured her staff would do whatever they could that might help, reminded her to use call light. Agreeable to this. Given natalie carrillo per request. Continuing to monitor.
[2017-09-27] MEDS: Enoxaparin 80 MG/0.8 ML Syringe 70 MG SC ×2 (06:28→17:53)
[2017-09-27] MEDS: Loratadine 10 MG Tablet PO (06:28)
[2017-09-27] MEDS: Menthol/Lanolin/Calamine/Znox 113 GM Tube 1 APPLIC TOPICAL ×2 (06:28→20:49)
[2017-09-27] MEDS: Pantoprazole Sodium 20 MG Tablet PO (06:29)
[2017-09-27] MEDS: predniSONE 5 MG Tablet PO ×2 (06:29→12:45)
[2017-09-27] MEDS: Senna/Docusate Sodium 1 Tablet PO (06:30)
--- NOTE | 2017-09-27 10:30 | CASEMGMT ---
Insurance Clinical information faxed. Pending continued stay approval at this time. Auth#[id number] Joycelyn GARCIA, RAILROAD DISPATCHER
--- NOTE | 2017-09-27 11:19 | NURSING ---
Patient has c/o insomnia, Dr. Ortega made aware NO for melatonin 10mg QHS PRN. Patient aware.
--- NOTE | 2017-09-27 13:44 | CASEMGMT ---
Insurance Continued stay denied with last cover day being 09/29/17 and resident to discharge or financial responsibility to begin on 09/30/17. Auth#[id number] Joycelyn GARCIA, SENIOR STAFF PSYCHOLOGIST
--- NOTE | 2017-09-27 13:45 | CASEMGMT ---
Social Work Spoke with resident in room. This social insurance adviser communicating that continued stay has been denied by insurance with a last cover day of 09/29/17 and resident to discharge on or financial responsibility to begin on 09/30/17. Resident issued NOMNOC. Resident signing NOMNOC and agreeable to discharge on 09/30/17. Resident unsure of discharge location as resident home was sold while resident was under hospice care. Now resident is doing better and planning to discharge to the community. Resident reporting to have had an apartment set up for this weekend but the apartment has fallen through now. Resident looking into other apartment options and exploring possible stay in a hotel for a bit until resident is able to find an apartment. Resident family reporting to want to see resident discharge to a halfway. Resident is not open to halfway placement and therapy is not recommending halfway placement or even 24hr care. Resident family reporting to not be willing to assist resident in transportation to a hotel but plan to keep working with resident on finding an apartment. Resident also has a friend that is assisting. Will continue to follow. Proposed discharge date: 09/30/17 PLAN: Discharge disposition undetermined at this time. Joycelyn GARCIA, CARGOMAN
--- NOTE | 2017-09-27 14:01 | CASEMGMT ---
Brief interview for mental status (BIMS) and resident mood interview (PHQ-9) completed on this day. BIMS score 15. PHQ-9 score 06/11
--- NOTE | 2017-09-27 15:31 | CASEMGMT ---
Social Work Collaborating further with resident and team. Broached topic of respite stay at an assisted living facility. Resident open to option and requesting for this social sciences research scientist to make a referral to [facility] [facility]. Resident son, Luis not open to assisted living option at this time but aware that resident is able to make own choices. Resident reporting that daughter, Nayeli is agreeable to assisted living option. Support given. Telephone call to Dia at [facility]. Dia reporting to have openings and to be able come and meet with resident on this day. Telephone call from Becca at [facility]. Becca reporting that resident pending medicaid number is [id number], in the event that resident discharges to an extended care facility. Proposed discharge date: 09/30/17 PLAN: Possible discharge to assisted living under respite stay vs an extended care facility. - No finalized plan at this time. Will continue to follow. Joycelyn GARCIA, PARKING TECHNICIAN
[2017-09-27 19:06] VITALS: BP 139/81; PULSE 112; RESP 18; TEMP 36.6; O2SAT 95
[2017-09-27] MEDS: predniSONE 5 MG Tablet 2.5 MG PO (20:48)
[2017-09-27] MEDS: MELATONIN 10 MG TABLET PO (20:50)
--- NOTE | 2017-09-27 20:53 | NURSING ---
Pt in much better spirits this evening, said son called and told her she could move into [place], a newer neighborhood and she does not have to go to a prison which she is very grateful for. Accepted melatonin without issue, repositioned for comfort. Pt voiced she is hopeful for sleep tonight. Continuing to monitor.
--- NOTE | 2017-09-27 21:22 | PCM.DC ---
- Discharge Diagnoses Current Active Problems: Current Active and Chronic Problems Debility (Acute) Osteoarthritis (Chronic) Low back pain (Chronic) Allergic rhinitis (Chronic) Anxiety (Chronic) GERD (gastroesophageal reflux disease) (Chronic) You will use the following diet at home:: No restrictions, Regular Your food should be the consistency of: Regular Your liquids should be the consistency of: Regular/Thin Discharge Activity: Return to Normal Activity, May Shower, Use Walker Weight Bearing Status: Weight bearing as tolerated Call your doctor if you observe: Fever of 101 or Higher, Inability to urinate, Inability to have a bowel movement, Shortness of breath, Chest pain, Uncontrolled pain Allergies/Adverse Reactions: Allergies amoxicillin trihydrate [From Augmentin] Adverse Reaction (Verified 09/18/17 22:10) Upset Stomach diclofenac sodium [From Arthrotec] Adverse Reaction (Verified 09/18/17 22:10) Upset Stomach doxycycline Adverse Reaction (Verified 09/18/17 22:10) Upset Stomach erythromycin base Adverse Reaction (Verified 09/18/17 22:10) Upset Stomach etodolac [From Lodine] Adverse Reaction (Verified 09/18/17 22:10) Upset Stomach flurbiprofen [From Ansaid] Adverse Reaction (Verified 09/18/17 22:10) Upset Stomach misoprostol [From Arthrotec] Adverse Reaction (Verified 09/18/17 22:10) Upset Stomach NSAIDS (Non-Steroidal Anti-Inflamma Adverse Reaction (Verified 09/18/17 22:10) Other potassium clavulanate [From Augmentin] Adverse Reaction (Verified 09/18/17 22:10) Upset Stomach rofecoxib [From Vioxx] Adverse Reaction (Verified 09/18/17 22:10) Upset Stomach Medications to take at Discharge Fluticasone 0.05% [Flonase Nasal [place]] 1 spray NASAL PRN PRN 09/18/17 Omeprazole [Prilosec] 20 mg PO DAILY 09/18/17 Prednisone 5 mg PO BID 09/18/17 Loratadine [Claritin] 10 mg PO DAILY 09/21/17 Lorazepam [Ativan] 0.5 mg PO QHS #5 tab 09/21/17 Acetaminophen [Tylenol] 1,000 mg PO Q8H PRN PRN tablet 09/27/17 Enoxaparin [Lovenox] 70 mg SC Q12 #60 syringe 09/27/17 Guaifenesin Dm [Robitussin Dm] 10 ml PO Q6H PRN PRN udc 09/27/17 Iron Polysaccharide Complex [Ferrex 150] 150 mg PO DAILYCM #30 cap 09/27/17 Melatonin 10 mg PO QHS tablet 09/27/17 Menthol/Lanolin/Calamine/Znox [Calmoseptine Ointment] 1 applic TOPICAL 0600,2200 tube 09/27/17 The following prescriptions were given: Enoxaparin [Lovenox] 70 mg SC Q12 #60 syringe Iron Polysaccharide Complex [Ferrex 150] 150 mg PO DAILYCM #30 cap Primary Care Physician: Moreno Doctor,Out of [Primary Care Provider] - Please follow up with your Primary Care Physician in: 1 week. Proposed Discharge Date: 09/30/17
--- NOTE | 2017-09-27 21:25 | DCINST_ITS ---
- Discharge Diagnoses Current Active Problems: Current Active and Chronic Problems Debility (Acute) Osteoarthritis (Chronic) Low back pain (Chronic) Allergic rhinitis (Chronic) Anxiety (Chronic) GERD (gastroesophageal reflux disease) (Chronic) You will use the following diet at home:: No restrictions, Regular Your food should be the consistency of: Regular Your liquids should be the consistency of: Regular/Thin Discharge Activity: Return to Normal Activity, May Shower, Use Walker Weight Bearing Status: Weight bearing as tolerated Call your doctor if you observe: Fever of 101 or Higher, Inability to urinate, Inability to have a bowel movement, Shortness of breath, Chest pain, Uncontrolled pain Allergies/Adverse Reactions: Allergies amoxicillin trihydrate [From Augmentin] Adverse Reaction (Verified 09/18/17 22: 10) Upset Stomach diclofenac sodium [From Arthrotec] Adverse Reaction (Verified 09/18/17 22:10) Upset Stomach doxycycline Adverse Reaction (Verified 09/18/17 22:10) Upset Stomach erythromycin base Adverse Reaction (Verified 09/18/17 22:10) Upset Stomach etodolac [From Lodine] Adverse Reaction (Verified 09/18/17 22:10) Upset Stomach flurbiprofen [From Ansaid] Adverse Reaction (Verified 09/18/17 22:10) Upset Stomach misoprostol [From Arthrotec] Adverse Reaction (Verified 09/18/17 22:10) Upset Stomach NSAIDS (Non-Steroidal Anti-Inflamma Adverse Reaction (Verified 09/18/17 22:10) Other potassium clavulanate [From Augmentin] Adverse Reaction (Verified 09/18/17 22:10 ) Upset Stomach rofecoxib [From Vioxx] Adverse Reaction (Verified 09/18/17 22:10) Upset Stomach Medications to take at Discharge Fluticasone 0.05% [Flonase Nasal [place]] 1 spray NASAL PRN PRN 09/18/17 Omeprazole [Prilosec] 20 mg PO DAILY 09/18/17 Prednisone 5 mg PO BID 09/18/17 Loratadine [Claritin] 10 mg PO DAILY 09/21/17 Lorazepam [Ativan] 0.5 mg PO QHS #5 tab 09/21/17 Acetaminophen [Tylenol] 1,000 mg PO Q8H PRN PRN tablet 09/27/17 Enoxaparin [Lovenox] 70 mg SC Q12 #60 syringe 09/27/17 Guaifenesin Dm [Robitussin Dm] 10 ml PO Q6H PRN PRN udc 09/27/17 Iron Polysaccharide Complex [Ferrex 150] 150 mg PO DAILYCM #30 cap 09/27/17 Melatonin 10 mg PO QHS tablet 09/27/17 Menthol/Lanolin/Calamine/Znox [Calmoseptine Ointment] 1 applic TOPICAL 0600, 2200 tube 09/27/17 The following prescriptions were given: Enoxaparin [Lovenox] 70 mg SC Q12 #60 syringe Iron Polysaccharide Complex [Ferrex 150] 150 mg PO DAILYCM #30 cap Primary Care Physician: Moreno Doctor,Out of [Primary Care Provider] - Please follow up with your Primary Care Physician in: 1 week. Proposed Discharge Date: 09/30/17
--- NOTE | 2017-09-27 21:27 | DS.PCM_ITS ---
Discharge Date and Diagnosis - Problem List Patient Problems: Active and Suspected Problems Debility (Acute) Date of Admission: 09/21/17 Date of Discharge: 09/30/17 - Primary Discharge Diagnosis Active and Suspected Problems Debility (Acute) - Secondary Discharge Diagnosis Chronic Problems Osteoarthritis (Chronic) Low back pain (Chronic) Allergic rhinitis (Chronic) Anxiety (Chronic) GERD (gastroesophageal reflux disease) (Chronic) History of bowel perforation (Chronic) History of GI bleed (Chronic) History of pulmonary embolism (Chronic) Chronic anemia (Chronic) Stage III chronic kidney disease (Chronic) Addisons disease (Chronic) Hospital Course and Treatment Imaging Results: 09/22/17 06:17 Diet: Regular Diet Is pt able to select menu?: Yes Operations: None Procedures: None Summary of Care Provided: The patient is a 77 year old Female with below past medical history hospitalized for bilateral lower extremity DVT, bilateral pulmonary embolism, treated with LMWH, NOAC avoided due to recent GI bleed, Venofer given for iron deficiency anemia, admitted to TCU with debility, here for rehabilitation, strengthening, prior to discharge home. Discharge to [facility] living for respite stay, resident looking for an apartment to move to to live independently. Discharge Diet: No Restrictions Discharge Activity: Return to Normal Activity, May Shower, Use Walker Weight Bearing Status: Weight bearing as tolerated Call your doctor if you observe: Fever of 101 or Higher, Inability to urinate, Inability to have a bowel movement, Shortness of breath, Chest pain, Uncontrolled pain Home Medications: Medications to take at Discharge Fluticasone 0.05% [Flonase Nasal [place]] 1 spray NASAL PRN PRN 09/18/17 Omeprazole [Prilosec] 20 mg PO DAILY 09/18/17 Prednisone 5 mg PO BID 09/18/17 Loratadine [Claritin] 10 mg PO DAILY 09/21/17 Lorazepam [Ativan] 0.5 mg PO QHS #5 tab 09/21/17 Acetaminophen [Tylenol] 1,000 mg PO Q8H PRN PRN tablet 09/27/17 Enoxaparin [Lovenox] 70 mg SC Q12 #60 syringe 09/27/17 Guaifenesin Dm [Robitussin Dm] 10 ml PO Q6H PRN PRN udc 09/27/17 Iron Polysaccharide Complex [Ferrex 150] 150 mg PO DAILYCM #30 cap 09/27/17 Melatonin 10 mg PO QHS tablet 09/27/17 Menthol/Lanolin/Calamine/Znox [Calmoseptine Ointment] 1 applic TOPICAL 0600, 2200 tube 09/27/17 Following Prescrptions Were Given to Patient: Enoxaparin [Lovenox] 70 mg SC Q12 #60 syringe Iron Polysaccharide Complex [Ferrex 150] 150 mg PO DAILYCM #30 cap Primary Care Physician: Moreno Hook,Out of [Primary Care Provider] - Please follow up with your Primary Care Physician in: 1 week. Disposition: Asstd Living/Non-[facility]ill [facility] Minutes spent on discharge:: 30 Patient Condition:: Stable Medical Necessity - Tobacco Use Smoking Status: Never smoker Tobacco Use: Non-smoker Meaningful Use Info Meaningful Use Diagnoses (Choose all that apply): VTE - VTE Anticoag overlap given w/in hospital stay or rx'd at dc?: No Reason overlap not ordered, prescribed, or given for 5 days: Treatment Not Indicated
--- NOTE | 2017-09-27 21:50 | NURSING ---
Dressing to right upper arm changed, nothing on arm which was scabbed over, pt requested arm dressed and wrapped. Repositioned for comfort afterwards and encouraged sleep. Continuing to monitor.
[2017-09-28] MEDS: Senna/Docusate Sodium 1 Tablet PO ×2 (06:36→17:56)
[2017-09-28] MEDS: Menthol/Lanolin/Calamine/Znox 113 GM Tube 1 APPLIC TOPICAL (06:36)
[2017-09-28] MEDS: Enoxaparin 80 MG/0.8 ML Syringe 70 MG SC ×2 (06:37→17:56)
[2017-09-28] MEDS: Pantoprazole Sodium 20 MG Tablet PO (06:37)
[2017-09-28] MEDS: predniSONE 5 MG Tablet PO ×2 (06:37→11:44)
[2017-09-28] MEDS: Loratadine 10 MG Tablet PO (06:38)
--- NOTE | 2017-09-28 06:40 | NURSING ---
Pt stated she slept from 'about 12:30 on' until this nurse woke for biomedical manager at 0640. Pt pleased with this and stated she feels rested.
--- NOTE | 2017-09-28 13:10 | CASEMGMT ---
Plan of care meeting held. Resident present as well as resident daughter, Nayeli. Resident now reporting to be planning to discharge to an apartment and to want to cancel the referral with [facility]. Physical therapy recommending for resident to discharge home with continued therapy through outpatient services. Resident agreeable to recommendation and requesting for outpatient physical therapy to be set up through [facility]. Resident reporting to also need transportation set up through [facility]. Resident also voicing to need a walker at time of discharge. Resident does not have a preference of [facility], [facility] to be utilized. Resident daughter to provide transportation home for resident at time of discharge. Will contact [facility], when order obtained for walker. Will contact [facility] when order is obtained for outpatient physical therapy. Telephone call to Dia [place]. This case management social worker canceling referral. Proposed discharge date: 09/30/17 PLAN: Discharge to apartment at [place] with outpatient physical therapy. Joycelyn GARCIA, TOWN CLERK
[2017-09-28 15:28] VITALS: BP 121/77; PULSE 121; RESP 20; TEMP 36.7; O2SAT 97
--- NOTE | 2017-09-28 16:08 | CASEMGMT ---
Social Work Order for outpatient physical therapy faxed to [facility]. [facility] to contact this health social work professor with appointment time and date along with transportation information. Order for walker faxed to [facility]. [facility] to have walker delivered to resident room prior to resident discharge. Proposed discharge date: 09/30/17 PLAN: Discharge home alone with outpatient physical therapy. Joycelyn GARCIA, NON PROFIT DIRECTOR
[2017-09-28] MEDS: MELATONIN 10 MG TABLET PO (20:38)
[2017-09-28] MEDS: predniSONE 5 MG Tablet 2.5 MG PO (20:38)
[2017-09-28 22:14] VITALS: PULSE 72; RESP 16
[2017-09-28] MEDS: Acetaminophen 500 MG Tablet 1000 MG PO (23:05)
[2017-09-29 06:10] LABS: Absolute Lymphocyte Count 1.38 X10^3/ul (0.83-4.51); Basophil# 0.02 X10^3/uL; Basophil% 0.2 % (0-1); Eosinophil# 0.11 X10^3/uL; Eosinophils% 1.3 % (0-5); Hematocrit 32.9 % (37-47); Hemoglobin 9.8 g/dl (12.0-15.0); Lymphocyte # 1.38 X10^3/ul (4.0); Lymphocyte % 16.6 % (19-41); Mean Corp Hgb Conc 29.8 g/gl (32-36); Mean Corpuscular Hgb 30.3 pg (27.0-32.0); Mean Corpuscular Volume 101.9 fL (81-99); Mean Platelet Vol. 9.4 fl (6.2-12.0); Monocyte% 9.6 % (0-10); Neutrophil # 5.96 X10^3/uL (2.7-7.7); Neutrophil % 71.7 % (47-70); Platelet Count 378 K/mm3 (150-450); RBC Distribution Width CV 20.6 % (11.6-14.6); Red Blood Count 3.23 M/mm3 (4.2-5.4); White Blood Count 8.3 K/mm3 (4.4-11.0)
[2017-09-29 06:12] LABS: Differential Indicated SCAN CRITERIA MET; POSITIVE COUNT NO; POSITIVE DIFFERENTIAL NO; POSITIVE MORPHOLOGY YES
[2017-09-29] MEDS: Enoxaparin 80 MG/0.8 ML Syringe 70 MG SC ×2 (06:15→18:48)
[2017-09-29] MEDS: Pantoprazole Sodium 20 MG Tablet PO (06:16)
[2017-09-29] MEDS: predniSONE 5 MG Tablet PO ×2 (06:16→11:28)
[2017-09-29 06:20] LABS: Anion Gap 8 (5-15); BUN 23 mg/dL (7-18); BUN/Creat Ratio 20.4 RATIO (10-20); Calcium,Total 8.6 mg/dL (8.5-10.1); Chloride 109 mmol/L (98-107); Creatinine, Serum 1.13 mg/dL (0.55-1.02); EST Glomerular Filtration Rate 50 mL/min (>60); Est Glom Filt Rate - Afr Amer 60 mL/min (>60); Estimated Creatinine Clearance 43.19 ml/min; Glucose 89 mg/dL (74-106); Potassium 4.2 mmol/L (3.5-5.1); Sodium Level 144 mmol/L (136-145)
[2017-09-29 06:52] LABS: Anisocytosis 3+; Differential Comment SCANNED; Macrocytosis 2+
[2017-09-29 09:41] VITALS: PULSE 110; O2SAT 96
[2017-09-29 16:00] VITALS: BP 125/74; PULSE 110; RESP 18; TEMP 36.8; O2SAT 98
[2017-09-29] MEDS: Senna/Docusate Sodium 1 Tablet PO (19:45)
[2017-09-29] MEDS: predniSONE 5 MG Tablet 2.5 MG PO (19:45)
[2017-09-30] MEDS: Menthol/Lanolin/Calamine/Znox 113 GM Tube 1 APPLIC TOPICAL (06:48)
[2017-09-30] MEDS: Enoxaparin 80 MG/0.8 ML Syringe 70 MG SC (06:49)
[2017-09-30] MEDS: predniSONE 5 MG Tablet PO ×2 (06:49→12:03)
[2017-09-30] MEDS: Pantoprazole Sodium 20 MG Tablet PO (06:50)
[2017-09-30 15:16] VITALS: BP 131/80; PULSE 108; RESP 18; TEMP 36.4; O2SAT 97
[2017-09-30 17:41] VITALS: BP 138/75; PULSE 68; RESP 16; TEMP 36.9; O2SAT 95
--- NOTE | 2017-10-03 15:04 | CASEMGMT ---
Insurance Updated insurance taht pt was d/c on 09/30/17 with outpt therapy. Auth # [id number] RADHA Gibson
--- NOTE | 2017-10-04 09:39 | MDS.RN ---
Information for the mds was obtained from review of the clinical record, interview of resident, staff, and direct observation of resident's care.
== END 2017-09-30 17:30 | disposition home or self-care (01) | DRG 947 ==
PROVIDERS: Admitting Provider Family Medicine Geriatric Medicine; Visit Provider Family Medicine Geriatric Medicine
DX: R53.81 Other malaise (principal); I26.99 Other pulmonary embolism without acute cor pulmonale; E27.1 Primary adrenocortical insufficiency; I82.403 Acute embolism and thrombosis of unspecified deep veins of lower extremity, bilateral; K21.9 Gastro-esophageal reflux disease without esophagitis; F41.9 Anxiety disorder, unspecified; I12.9 Hypertensive chronic kidney disease with stage 1 through stage 4 chronic kidney disease, or unspecified chronic kidney disease; N18.3 Chronic kidney disease, stage 3 (moderate); M19.90 Unspecified osteoarthritis, unspecified site; Z79.899 Other long term (current) drug therapy; Z86.711 Personal history of pulmonary embolism; D50.9 Iron deficiency anemia, unspecified; Z86.718 Personal history of other venous thrombosis and embolism
CPT/HCPCS: 36415; 80048; 85025; 97110; 97116; 97162; 97166; 97530; 97535; 97802

== ENCOUNTER 2017-10-05 13:43 | Outpatient (RCR) | payer MEDICARE, SELFPAY ==
--- NOTE | 2017-10-05 14:49 | HP.PTEVAL_ITS ---
Patient's Visit Information SIDNEY MCCULLOUGH is a 77 year old F referred to Physical Therapy by Alejo Ortega with a diagnosis of weakness, debility. Date of Evaluation: 10/05/17 Physical Therapist: ANRDY RojasT, OC - Visit Plan Frequency: 3x /Week Duration: 4-6 Weeks Plan: 3x/week for 6 weeks:(Pt with clots in legs and lungs, frequent rests may be needed). 1. gastroc stretches. 2. LE, trunk, UE and functional strength, start HEP and work to gym,. 3. gait progression without AD adn balance. - Subjective Subjective: Perforated bowel August 24, ER sent to [facility]. Needed surgery and refused. Gave her three hours to live and was sent home to try to heal. Then had episode of dumping blood and went to ER and released to hospice Around august. Got better in hospice and went to [place]. Found clots in the legs and the lungs, sent to hospital on the 09/21 TCU and got out last Tuesday after about a week. Clots till there so she feels weak in the gut, legs and arms feel strong. Doctor sent her here to get stronger b/c she now has to use a walker and she did not need to prior. Worked out at in [place] prior to this incident. Live alone in one story house. Get in and out of bed shower and toilet I. Tires easily and has to lie down throughout day. Showers and meals wear her out. Watches TV all day and that is abnormal for her. 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 - Objective Pt walks slowly with wh walker 150 feet x 2 back to [facility] for rehab medicine room, tired but not SOB today. 12 bpm HR after walking.Legs are swollen and dark. can walk without AD but unsteady and slow with avoids heel strike and toe off and walks flat foot avoiding weight shift. Transfers are I with and without UE although confidence is low. Steps not tried today. LE aROM WFL except DF limited to -5 B adn very tight gastroc and soleus. Inv and ev WFL and 3+ strength. Knee aROM wFL and strength 3+. Hip AROM ext 0 degrees, abd 24, flexion 100, wekaness obvious in hips at 3/5. UE AROM WFL and 4- strength. reflexes 2/3 patella and achilels. Sensation LE WNL to gross light touch. - Balance Scores Functional Gait Assessment Score: 13 % Disability: 56.6700 - Goals Goal 1:: FGA to diminish fall risk. Goal Time Frame: 4-6 Weeks Goal 2:: Walk community without need AD Goal Time Frame: 4-6 Weeks Goal 3:: pt feel back 90% better adn redy to wrokout at [facility] I. Goal Time Frame: 4-6 Weeks Goal 4:: Patient have plan to get back out in garden Goal Time Frame: 4-6 Weeks - Rehabilitation Potential Physical Therapy Diagnosis: weakness and debility Rehabilitation Potential: Fair - Anticipated Interventions Patient/Client Instruction: Educate patient on: Condition, Plan of Care For the Purpose of:: To improve nutrient delivery to tissue, To increase oxygenation perfusion, To improve muscle performance and motor function Therapeutic Exercise to Include: Strength training, Balance training, Flexibilty training, Gait and locomotor training, Active ROM For the Purpose of:: To improve nutrient delivery to tissue, To increase oxygenation perfusion, To improve muscle performance and motor function, To improve ability to perform ADL's, To improve ability of physical actions for home/community/work/leisure Thank you for the opportunity to evaluate your patient. For Medicare and Medicare HMO plans, please review the plan of care and approve it. It will need to be FAXED BACK to us at [phone] for Medicare purposes. Please let me know if there are questions or concerns regarding this plan of care. Physician Signature: Date:
--- NOTE | 2017-12-22 12:38 | HP.PT.NRP ---
HP - Discharge Summary (1) - Patient Information SIDNEY MCCULLOUGH was seen in my office for initial evaluation on 10/05/17. The following Plan of Care was established for this patient: Initial Frequency: 3x /Week Initial Duration: 4-6 Weeks - Anticipated Interventions Patient/Client Instruction: Educate patient on: Condition, Plan of Care For the Purpose of:: To improve nutrient delivery to tissue, To increase oxygenation perfusion, To improve muscle performance and motor function Therapeutic Exercise to Include: Strength training, Balance training, Flexibilty training, Gait and locomotor training, Active ROM For the Purpose of:: To improve nutrient delivery to tissue, To increase oxygenation perfusion, To improve muscle performance and motor function, To improve ability to perform ADL's, To improve ability of physical actions for home/community/work/leisure This patient was last seen in our office 10/05/17. Pertinent comments regarding their Physical therapy will appear below: Pt seen one visit and plan of care established but patient never returned. Will disocntinue at this time due to nonattendance. At this point I will be discontinuing this patient from physical therapy. I would be happy to see this patient again in the future if found appropriate by the physician. Thank you! Al Cornell, DPT, OC
== END 2017-10-05 19:00 | disposition home or self-care (01) ==
LOC: PT 13:43
PROVIDERS: Family Provider Family Medicine; PCP Family Medicine; Visit Provider Family Medicine Geriatric Medicine
DX: M62.81 Muscle weakness (generalized) (principal); R26.2 Difficulty in walking, not elsewhere classified; R53.81 Other malaise
CPT/HCPCS: 97162

== ENCOUNTER 2017-10-08 03:12 | Emergency (ER) | payer MEDICARE, SELFPAY ==
[2017-10-08 03:13] VITALS: BP 165/100; PULSE 120; RESP 20; TEMP 36.4; O2SAT 98; BMI 33.5
[2017-10-08 03:35] LABS: International Normalized Ratio 1.1; Prothrombin Time (Protime)PT. 14.2 SECONDS (11.7-14.9)
[2017-10-08 03:36] LABS: Partial Thromboplast Time 37.8 Seconds (24.1-36.2)
[2017-10-08] MEDS: Ondansetron 4 MG/2 ML Vial IV (03:37)
[2017-10-08] MEDS: Morphine 4 MG/ML Syringe IV (03:37)
[2017-10-08 03:40] LABS: Absolute Lymphocyte Count 1.79 X10^3/ul (0.83-4.51); Absolute Neutrophil Count 9.4 X10^3/uL (2.0-7.7); Basophil# 0.04 X10^3/uL; Basophil% 0.3 % (0-1); Eosinophil# 0.03 X10^3/uL; Eosinophils% 0.2 % (0-5); Hematocrit 37.3 % (37-47); Hemoglobin 11.6 g/dl (12.0-15.0); Lymphocyte # 1.79 X10^3/ul (4.0); Lymphocyte % 14.5 % (19-41); Mean Corp Hgb Conc 31.1 g/gl (32-36); Mean Corpuscular Volume 102.8 fL (81-99); Mean Platelet Vol. 9.3 fl (6.2-12.0); Monocyte# 0.88 X10^3/uL; Monocyte% 7.1 % (0-10); Neutrophil # 9.42 X10^3/uL (2.7-7.7); Neutrophil % 76.4 % (47-70); Platelet Count 396 K/mm3 (150-450); RBC Distribution Width SD 72.8 fl (35.1-43.9); Red Blood Count 3.63 M/mm3 (4.2-5.4); White Blood Count 12.3 K/mm3 (4.4-11.0)
[2017-10-08 03:41] LABS: Differential Indicated SCAN CRITERIA MET; POSITIVE COUNT NO; POSITIVE DIFFERENTIAL NO; POSITIVE MORPHOLOGY YES
[2017-10-08 03:47] LABS: Anion Gap 9 (5-15); BUN 23 mg/dL (7-18); BUN/Creat Ratio 16.2 RATIO (10-20); Calcium,Total 8.8 mg/dL (8.5-10.1); Chloride 108 mmol/L (98-107); Creatinine, Serum 1.42 mg/dL (0.55-1.02); EST Glomerular Filtration Rate 38 mL/min (>60); Est Glom Filt Rate - Afr Amer 46 mL/min (>60); Estimated Creatinine Clearance 23.45 ml/min; Glucose 123 mg/dL (74-106); Sodium Level 143 mmol/L (136-145)
[2017-10-08 04:06] LABS: Anisocytosis 1+; Differential Comment SCAN; Macrocytosis 1+; Polychromasia 1+
--- NOTE | 2017-10-08 04:18 | ED.VISSUMM ---
- ER Visit Summary Date of Service: 10/08/17 Chief Complaint: Left lower extremity with large hematoma History of Present Illness: The patient is a 77 F who presents because of pain and large hematoma distal medial left leg. She states 4-5 hours prior to presentation a small black hematoma. It has grown significantly in size. She is presently administering 70 mg of Lovenox twice a day. She was diagnosed earlier this month with bilateral pulmonary medicine bilateral DVT. She denies fever, chills night sweats. She denies a ocular, auditory or visual symptoms. She denies any cardiac or respiratory symptoms. She denies hematemesis, black or maroon stool. She denies blood in her urine. She does report bruising easily. Per old records he has a history of end-stage renal disease. There is also past medical history of GI bleed, bowel perforation and Indianola's disease. Physical Examination: Patient appears uncomfortable. Blood pressure is elevated 165/100. Heart rate is 120. In my opinion her elevated blood pressure heart rate are in all likelihood secondary to pain. Head is atraumatic normocephalic. Pupils are equal round reactive. Extraocular muscles are intact. TMs are pearly white with landmarks noted. Nares patent with no drainage. Posterior pharynx without erythema or exudate. Uvula is midline. There is no dysphonia or dysphasia. Trachea is midline. There is no stridor with auscultation of the neck. Heart is regular without murmur, gallop or rub. Lungs clear to auscultation. Examination lower extremity reveals a large hematoma distal medial left leg. DP and PT pulses are palpable. Passive plantar and dorsiflexion of toes and foot does not cause pain. The hematoma is not taut and firm. Test Results: H&H 11.6 and 37.3. White count slightly elevated 12.3. BUN/creatinine 23 with creatinine 1.4 to a GFR of 38. INR is 1.1 and PTT is elevated 37.8. Patient's creatinine has increased since earlier this month. Emergency Department Course and Treatment: The hematoma spontaneously ruptured and drained itself. Consult with pharmacy regarding Lovenox dosing. In light of age GFR Lovenox dose should be 70 units once a day and not twice a day. Patient was informed she needs to decrease her dose and follow-up with her release specialist. Treatment Plan: Decrease dose of Lovenox, follow-up with PCP for wound check in 2 days and follow-up with release specialist. Disposition: Discharged to home in stable condition Impression: 1. Spontaneous hematoma left lower extremity with multiple bruises secondary to Lovenox induced coagulopathy secondary to renal insufficiency, acute 2. Chronic anemia 3. Acute renal insufficiency 4. Recent diagnosis of bilateral PE and DVT 5. History of Indianola's disease This note was generated with [employer] Insight[employer] software. It may contain incorrect words, spelling, and punctuation that were not noted in review of the chart prior to signing ED Disposition - Plan for ED Patient: Disposition: Home or Assisted Living Chief Complaint: Lower Extremity Injury Instructions: ED Hematoma Referrals: Jared Romero MD [Primary Care Provider] - 2 Days for wound check Additional Instructions: Decrease Lovenox to 1 injection a day. Follow-up with your primary care doctor for evaluation of hematoma in 2 days. Follow-up with your release specialist because of worsening kidney function, GFR
--- NOTE | 2017-10-08 04:25 | ED.DCSUM_ITS ---
- ER Visit Summary Date of Service: 10/08/17 Chief Complaint: Left lower extremity with large hematoma History of Present Illness: The patient is a 77 F who presents because of pain and large hematoma distal medial left leg. She states 4-5 hours prior to presentation a small black hematoma. It has grown significantly in size. She is presently administering 70 mg of Lovenox twice a day. She was diagnosed earlier this month with bilateral pulmonary medicine bilateral DVT. She denies fever, chills night sweats. She denies a ocular, auditory or visual symptoms. She denies any cardiac or respiratory symptoms. She denies hematemesis, black or maroon stool. She denies blood in her urine. She does report bruising easily. Per old records he has a history of end-stage renal disease. There is also past medical history of GI bleed, bowel perforation and Tippah's disease. Physical Examination: Patient appears uncomfortable. Blood pressure is elevated 165/100. Heart rate is 120. In my opinion her elevated blood pressure heart rate are in all likelihood secondary to pain. Head is atraumatic normocephalic. Pupils are equal round reactive. Extraocular muscles are intact. TMs are pearly white with landmarks noted. Nares patent with no drainage. Posterior pharynx without erythema or exudate. Uvula is midline. There is no dysphonia or dysphasia. Trachea is midline. There is no stridor with auscultation of the neck. Heart is regular without murmur, gallop or rub. Lungs clear to auscultation. Examination lower extremity reveals a large hematoma distal medial left leg. DP and PT pulses are palpable. Passive plantar and dorsiflexion of toes and foot does not cause pain. The hematoma is not taut and firm. Test Results: H&H 11.6 and 37.3. White count slightly elevated 12.3. BUN/ creatinine 23 with creatinine 1.4 to a GFR of 38. INR is 1.1 and PTT is elevated 37.8. Patient's creatinine has increased since earlier this month. Emergency Department Course and Treatment: The hematoma spontaneously ruptured and drained itself. Consult with pharmacy regarding Lovenox dosing. In light of age GFR Lovenox dose should be 70 units once a day and not twice a day. Patient was informed she needs to decrease her dose and follow-up with her electrical line mechanic. Treatment Plan: Decrease dose of Lovenox, follow-up with PCP for wound check in 2 days and follow-up with electrical line mechanic. Disposition: Discharged to home in stable condition Impression: 1. Spontaneous hematoma left lower extremity with multiple bruises secondary to Lovenox induced coagulopathy secondary to renal insufficiency, acute 2. Chronic anemia 3. Acute renal insufficiency 4. Recent diagnosis of bilateral PE and DVT 5. History of Tippah's disease This note was generated with [employer]iva[employer] software. It may contain incorrect words, spelling, and punctuation that were not noted in review of the chart prior to signing ED Disposition - Plan for ED Patient: Disposition: Home or Assisted Living Chief Complaint: Lower Extremity Injury Instructions: ED Hematoma Referrals: Jared Romero MD [Primary Care Provider] - 2 Days for wound check Additional Instructions: Decrease Lovenox to 1 injection a day. Follow-up with your primary care doctor for evaluation of hematoma in 2 days. Follow-up with your electrical line mechanic because of worsening kidney function, GFR
[2017-10-08 04:40] VITALS: BP 138/100; PULSE 110; RESP 18; O2SAT 99
== END 2017-10-08 04:41 | disposition home or self-care (01) ==
PROVIDERS: Emergency Provider Emergency Medicine; Family Provider Family Medicine; PCP Family Medicine
DX: D68.32 Hemorrhagic disorder due to extrinsic circulating anticoagulants (principal); R23.3 Spontaneous ecchymoses; T45.515A Adverse effect of anticoagulants, initial encounter; Y92.9 Unspecified place or not applicable; N18.6 End stage renal disease; D64.9 Anemia, unspecified; R03.0 Elevated blood-pressure reading, without diagnosis of hypertension; Z79.01 Long term (current) use of anticoagulants; Z79.52 Long term (current) use of systemic steroids; Z79.899 Other long term (current) drug therapy; Z86.718 Personal history of other venous thrombosis and embolism; Z86.711 Personal history of pulmonary embolism; Z87.19 Personal history of other diseases of the digestive system; Z87.891 Personal history of nicotine dependence
CPT/HCPCS: 80048; 85025; 85610; 85730; 96374; 96375; 99284; A4216; J2405

== ENCOUNTER 2017-10-08 13:31 | Emergency (ER) | payer MEDICARE, SELFPAY ==
[2017-10-08 13:36] VITALS: BP 112/79; PULSE 123; RESP 20; TEMP 36.8; O2SAT 100; BMI 29.3
--- NOTE | 2017-10-08 13:46 | PCA ---
OLD EKG GOTTEN
--- NOTE | 2017-10-08 13:55 | CT_ITS ---
STUDY: CT ABDOMEN AND PELVIS WITHOUT CONTRAST REASON FOR EXAM: Female, 77 years old. Abdominal pain. Bowel perforation RADIATION DOSAGE (If Supplied By Facility): CTDIvol = ( 7.83 ) mGy, DLP = ( 387.50 ) mGycm TECHNIQUE: Transaxial images were obtained from the dome of the diaphragm to the symphysis pubis without oral contrast, and without intravenous contrast. Sagittal and coronal images were reconstructed. Individualized dose optimization techniques were used for this CT. COMPARISON: August 24, 2017 CT abdomen pelvis FINDINGS: Lung bases demonstrate no evidence for consolidative process. Gallbladder slightly distended. Liver and pancreas are within normal limits of size. The spleen appears unremarkable. Adrenal glands appear unremarkable Bowel gas pattern is nonobstructive. Duodenal diverticulum seen along the third segment of the duodenum. Kidneys demonstrate no evidence for hydronephrosis Vascular calcifications of the abdominal aorta. Subcutaneous emphysema in the abdominal wall Significant interval decrease in free intraperitoneal air. Colonic diverticulosis with adjacent phlegmonous changes in the distal sigmoid colon noted with a ill-defined pockets of gas and fluid in the presacral region measuring approximately 4.4 cm x 5 cm likely an ill-defined fluid collection/abscess. Study lacks intravenous contrast for complete assessment. Urinary bladder is slightly distended. Degenerative changes in the sacroiliac joints as well as the lumbar spine. Diffuse osteopenia. Postsurgical changes in the lumbar spine also seen. Right-sided hip prosthesis IMPRESSION: Sigmoid colonic diverticulosis with adjacent inflammatory stranding likely related with sigmoid colonic diverticulitis with previously seen perforation and likely 5 cm x 4.4 cm ill-defined fluid collection with pockets of gas likely an abscess in the presacral space. Study lacks intravenous contrast for complete assessment. Colonic fistulas are not excluded. Subcutaneous emphysema in the abdominal wall Significant interval decrease in previously noted free air Electronically Signed: Mckay Faulkner, at 15:03 EDT Tel , Service support , CT/Abdomen/Pelvis without Cont
[2017-10-08] MEDS: Ondansetron 4 MG/2 ML Vial IV (14:18)
--- NOTE | 2017-10-08 14:21 | ED.DCSUM_ITS ---
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 the left leg she was seen in the emergency department labs were drawn they were unremarkable see those reports, she basically had resolution of the bleeding and the pain and felt stable and she felt stable and improved for discharge when she got home she noticed that the bleeding in the hematoma seemed to enlarged further bleeding she could not control she bled through the bandage and she was brought back for evaluation She and her son is with her now he indicates she is continued complaint of vague nonspecific abdominal discomfort and he wants her evaluated for that he further indicates she lives at home alone and she cannot manage a slight hematoma bleeding and feel she requires admission Physical Examination: [] Sitting comfortably in the bed her only complaint is the left leg head neck chest unremarkable the abdomen soft nontender, the left lower leg there is a large hematoma that basically involves most of the anterior soni region, it is oozing blood from a 2 cm break in the skin, there is no signs of active infection and there is no signs of pulsatile bleeding, she has a strong dorsalis pedis pulse she is able dorsi and plantarflex her foot the foot exams unremarkable the posterior calf exams unremarkable hematoma involves the anterior soni region her knee and thigh are unremarkable her backs unremarkable upper lower extremities are otherwise unremarkable, the son is concerned about her abdomen but her abdomen soft and nontender and she has no complaints of any abdominal issues The patient is quite adamant that she wants nothing done for the abdominal condition perforation abscess she will not consent to surgery in fact last time she actually went to hospice but improved with antibiotic therapy at this time she states she is eating well drinking well having normal bowel bladder habits and is only here for her leg Test Results: [] Emergency Department Course and Treatment: [] She had labs earlier in the day prior ER visit there unremarkable I have added some screening labs I have added based on son's concerns abdominal CT, and I have asked the hospital see her for admission given all the above and the fact she cannot be managed at home The white count is 20,[address] shows signs of an abscess in the left lower quadrant related to the prior sigmoid diverticulitis rupture In all this the patient her son the patient wants nothing done for that she is agreeing to have antibiotics only again she is only concerned about her leg she wants the leg managed I have explained all the above to the hospitalist came down and spoke with the patient her son he recommended that she be transferred to facility where she could have an interventional radiology drainage of the abscess which reportedly cannot be done at [facility], the son and daughter agreed to be transferred to [facility] where she had been admitted for to be evaluated for this possibility Start the patient on Rocephin, I did speak with [facility] transfer service and they are discussing the issue with their physicians and will arrange for transfer Treatment Plan: [] Disposition: [] Admit pending hospitalist evaluation versus transfer to [facility] Impression: [] Left lower extremity hematoma with bleeding, intermittent abdominal pain, left lower quadrant abscess related to prior sigmoid diverticular rupture which patient does not wish to have any surgical or aggressive therapy for, reported history for recent bowel perforation, history of DVT PE on Lovenox This note was generated with [employer] dictation software. It may contain incorrect words, spelling, and punctuation that were not noted in review of the chart prior to signing ED Disposition - Plan for ED Patient: Chief Complaint: Wound Referrals: Jared Romero MD [Primary Care Provider] -
[2017-10-08 14:27] LABS: Absolute Lymphocyte Count 1.03 X10^3/ul (0.83-4.51); Absolute Neutrophil Count 18.5 X10^3/uL (2.0-7.7); Basophil# 0.03 X10^3/uL; Basophil% 0.1 % (0-1); Hematocrit 32.2 % (37-47); Hemoglobin 9.8 g/dl (12.0-15.0); Lymphocyte # 1.03 X10^3/ul (4.0); Mean Corp Hgb Conc 30.4 g/gl (32-36); Mean Corpuscular Hgb 31.8 pg (27.0-32.0); Mean Corpuscular Volume 104.5 fL (81-99); Mean Platelet Vol. 9.7 fl (6.2-12.0); Monocyte# 0.87 X10^3/uL; Monocyte% 4.2 % (0-10); Neutrophil # 18.46 X10^3/uL (2.7-7.7); Neutrophil % 89.3 % (47-70); Platelet Count 371 K/mm3 (150-450); RBC Distribution Width CV 19.9 % (11.6-14.6); RBC Distribution Width SD 73.1 fl (35.1-43.9); Red Blood Count 3.08 M/mm3 (4.2-5.4); White Blood Count 20.7 K/mm3 (4.4-11.0)
[2017-10-08 14:28] LABS: Differential Indicated SCAN CRITERIA MET; POSITIVE COUNT NO; POSITIVE DIFFERENTIAL NO; POSITIVE MORPHOLOGY YES
[2017-10-08 14:30] LABS: International Normalized Ratio 1.1; Prothrombin Time (Protime)PT. 14.6 SECONDS (11.7-14.9)
[2017-10-08 14:40] LABS: AST(SGOT) 6 U/L (15-37); Alanine Aminotransfer ALT/SGPT 17 U/L (13-56); Albumin, Serum 2.7 g/dL (3.2-5.0); Alkaline Phosphatase 57 U/L (45-117); Anion Gap 11 (5-15); BUN 28 mg/dL (7-18); BUN/Creat Ratio 17.5 RATIO (10-20); Bilirubin, Direct 0.12 mg/dL (0.00-0.30); Calcium,Total 8.7 mg/dL (8.5-10.1); Chloride 106 mmol/L (98-107); EST Glomerular Filtration Rate 33 mL/min (>60); Est Glom Filt Rate - Afr Amer 40 mL/min (>60); Estimated Creatinine Clearance 20.81 ml/min; Globulin 3.4 g/dL (2.2-4.2); Glucose 158 mg/dL (74-106); Lipase 79 U/L (73-393); Potassium 4.2 mmol/L (3.5-5.1); Protein, Total 6.1 g/dL (6.4-8.2); Sodium Level 140 mmol/L (136-145)
[2017-10-08 14:57] LABS: Anisocytosis 1+; Hypochromasia 2+; Macrocytosis 1+
[2017-10-08 15:42] VITALS: BP 142/88; PULSE 118; RESP 161; O2SAT 100
--- NOTE | 2017-10-08 16:13 | CCHN_ITS ---
Hospitalist Note Patient was seen in the ED earlier for hematoma and bleeding from left lower leg from anticoagulation, which was started recently for pulmonary emboli. She was treated, but apparently bleeding was not controlled, returned to hospital. She was accompanied by her son, states that they would like to be evaluated for abdominal pain. She was seen on 08/24/17 in ED, found to have perforation of bowel. She was sent to [facility], however, had refused to have any surgery. She presents to hospital on 09/18, found to have bilateral DVT and PE. At that time, she was started on Lovenox. Per family request, CT of abd/pelvis was done with finding below. She has 5 cm fluid collection, consistent with abscess. This has to be treated with percutaneous drain. If she needs surgery, she may need IVC filter placement prior to procedure. We cannot consciously treat just hematoma and bleeding knowing she has fatal infection that can compromise her in any moment. She is afebrile, but WBC had increased to 20.7 which was just marginally elevated at 12.3 this morning. Blood pressure is normal, and she is awake, alert, and oriented. I discussed her current condition, prognosis, and possible treatment plan with her son and the patient. Apparently, they were declined to do any surgical intervention, but agreeable now after explaining her condition in detail. Unfortunately, we are unable to provide necessary care at this facility, recommended to transfer to tertiary care hospital. She is afebrile, and vss are stable, suitable for transfer at this time. STUDY: CT ABDOMEN AND PELVIS WITHOUT CONTRAST REASON FOR EXAM: Female, 77 years old. Abdominal pain. Bowel perforation RADIATION DOSAGE (If Supplied By Facility): CTDIvol = ( 7.83 ) mGy, DLP = ( 387.50 ) mGycm TECHNIQUE: Transaxial images were obtained from the dome of the diaphragm to the symphysis pubis without oral contrast, and without intravenous contrast. Sagittal and coronal images were reconstructed. Individualized dose optimization techniques were used for this CT. COMPARISON: August 24, 2017 CT abdomen pelvis FINDINGS: Lung bases demonstrate no evidence for consolidative process. Gallbladder slightly distended. Liver and pancreas are within normal limits of size. The spleen appears unremarkable. Adrenal glands appear unremarkable Bowel gas pattern is nonobstructive. Duodenal diverticulum seen along the third segment of the duodenum. Kidneys demonstrate no evidence for hydronephrosis Vascular calcifications of the abdominal aorta. Subcutaneous emphysema in the abdominal wall Significant interval decrease in free intraperitoneal air. Colonic diverticulosis with adjacent phlegmonous changes in the distal sigmoid colon noted with a ill-defined pockets of gas and fluid in the presacral region measuring approximately 4.4 cm x 5 cm likely an ill-defined fluid collection/abscess. Study lacks intravenous contrast for complete assessment. Urinary bladder is slightly distended. Degenerative changes in the sacroiliac joints as well as the lumbar spine. Diffuse osteopenia. Postsurgical changes in the lumbar spine also seen. Right-sided hip prosthesis IMPRESSION: Sigmoid colonic diverticulosis with adjacent inflammatory stranding likely related with sigmoid colonic diverticulitis with previously seen perforation and likely 5 cm x 4.4 cm ill-defined fluid collection with pockets of gas likely an abscess in the presacral space. Study lacks intravenous contrast for complete assessment. Colonic fistulas are not excluded. Subcutaneous emphysema in the abdominal wall Significant interval decrease in previously noted free air
--- NOTE | 2017-10-08 16:47 | ED.RN ---
DR GEORGE NOTIFIED PT PAIN RETURNING IN LEG
[2017-10-08] MEDS: Morphine 4 MG/ML Syringe IV (17:00)
[2017-10-08 17:05] VITALS: BP 133/76; PULSE 127; RESP 22; O2SAT 100
[2017-10-08 17:08] VITALS: BP 133/76; PULSE 127; RESP 22; O2SAT 100
[2017-10-08 17:26] VITALS: BP 133/76; PULSE 127; RESP 22; O2SAT 100
== END 2017-10-08 18:01 | disposition short-term general hospital (02) ==
PROVIDERS: Emergency Provider Emergency Medicine; Family Provider Family Medicine; PCP Family Medicine
DX: K57.20 Diverticulitis of large intestine with perforation and abscess without bleeding (principal); D68.32 Hemorrhagic disorder due to extrinsic circulating anticoagulants; R23.3 Spontaneous ecchymoses; T45.515A Adverse effect of anticoagulants, initial encounter; Y92.9 Unspecified place or not applicable; N18.6 End stage renal disease; D64.9 Anemia, unspecified; R03.0 Elevated blood-pressure reading, without diagnosis of hypertension; Z79.01 Long term (current) use of anticoagulants; Z79.52 Long term (current) use of systemic steroids; Z79.899 Other long term (current) drug therapy; Z86.718 Personal history of other venous thrombosis and embolism; Z86.711 Personal history of pulmonary embolism; Z87.19 Personal history of other diseases of the digestive system; Z87.891 Personal history of nicotine dependence
CPT/HCPCS: 74176; 80048; 80076; 83690; 85025; 85610; 85730; 96361; 96365; 96374; 96375; 99284; 99285; J7040; A4216; J0696; J2405

== ENCOUNTER 2017-10-18 14:30 | Inpatient (IN) | payer MEDICARE, SELFPAY ==
--- NOTE | 2017-10-18 14:30 | DT_ITS ---
This patient was seen during an EMR downtime October 17, 2017 - October 24, 2017. This patient may have a combination of paper and electronic documentation or all paper documentation. All documentation is viewable within the e-chart portion of [employer] for each patient visit.
[2017-10-18 17:00] VITALS: BMI 28.2
--- NOTE | 2017-10-21 00:34 | PCM.PN.RX ---
<Leighton Cantrell - Last Filed: 10/21/17 00:34> Progress Note - Pharmacy Subjective: [] Objective: Allergies amoxicillin trihydrate [From Augmentin] Adverse Reaction (Verified 10/08/17 03:17) Upset Stomach diclofenac sodium [From Arthrotec] Adverse Reaction (Verified 10/08/17 03:17) Upset Stomach doxycycline Adverse Reaction (Verified 10/08/17 03:17) Upset Stomach erythromycin base Adverse Reaction (Verified 10/08/17 03:17) Upset Stomach etodolac [From Lodine] Adverse Reaction (Verified 10/08/17 03:17) Upset Stomach flurbiprofen [From Ansaid] Adverse Reaction (Verified 10/08/17 03:17) Upset Stomach misoprostol [From Arthrotec] Adverse Reaction (Verified 10/08/17 03:17) Upset Stomach NSAIDS (Non-Steroidal Anti-Inflamma Adverse Reaction (Verified 10/08/17 03:17) Other potassium clavulanate [From Augmentin] Adverse Reaction (Verified 10/08/17 03:17) Upset Stomach rofecoxib [From Vioxx] Adverse Reaction (Verified 10/08/17 03:17) Upset Stomach Current Medications Generic Name Dose Route Start Last Admin Trade Name Freq PRN Reason Stop Dose Admin Acetaminophen 1,000 mg 10/18/17 16:11 Tylenol PO Q8H PRN PRN Hydrocodone Bitart/Acetaminophen 1 tablet 10/18/17 16:04 Simla 5mg-325mg PO 10/23/17 22:00 Q4H PRN PRN SEVERE PAIN (6-10/10) Amoxicillin/Clavulanate Potassium 875 mg 10/18/17 18:00 Augmentin Tablet PO BID [facility] Calamine/Phenol 1 applic 10/18/17 22:00 Calmoseptine Ointment TOPICAL BID@0600,2200 [facility] Ciprofloxacin HCl 500 mg 10/19/17 06:00 Cipro PO DAILY [facility] Enoxaparin Sodium 70 mg 10/19/17 06:00 Lovenox SC DAILY DINO Fluconazole 200 mg 10/19/17 06:00 Diflucan PO DAILY [facility] Guaifenesin 1,200 mg 10/19/17 06:00 Mucinex PO BID [facility] Magnesium Hydroxide 30 ml 10/18/17 16:19 Milk Of Magnesia PO DAILY PRN CONSTIPATION Metoprolol Tartrate 25 mg 10/18/17 18:00 Lopressor (Beta Janny) PO BID [facility] Ondansetron HCl 4 mg 10/18/17 16:06 Zofran Odt PO Q6H PRN PRN NAUSEA/VOMITING Pantoprazole Sodium 40 mg 10/19/17 06:00 Protonix PO DAILY [facility] Polyethylene Glycol 17 gm 10/19/17 06:00 Miralax PO DAILY [facility] Prednisone 5 mg 10/19/17 08:00 PO BID@0800,1200 [facility] Prednisone 2.5 mg 10/18/17 17:00 PO DAILY@1700 [facility] Tuberculin PPD 5 tu 10/26/17 10:00 Tubersol, Aplisol, Ppd ID 10/26/17 10:01 X1 ONE Warfarin Sodium 2.5 mg 10/21/17 17:00 Coumadin (Pbkc) PO DAILY@1700 [facility] Assessment/Plan: 1) Pain APAP prn for mild pain, hydrocodone/APAP for severe pain. Continue to monitor daily pain scores, prn medication use. 2) ID Amoxicillin/clavulanate, ciprofloxacin, fluconazole. Continue to monitor s/s infection. 3) Cardiac Metoprolol twice daily. Continue to monitor BP/HR. 4) GI Pantoprazole daily, ondansetron prn. Continue to monitor prn medication use, s/s GI distress. 5) Endocrine Prednisone 3x daily. Continue to monitor clinically. 6) Pulm Guaifenesin twice daily. Continue to monitor clinically. 7) Clot Enoxaparin daily, warfarin daily. Continue to monitor PT/INR until within range. 8) Derm Calmoseptine topically. Continue to monitor clinically. Psychotropic Medications: None Unnecessary Medications: None Bowel Regimen: 9) PEG daily, MgOH prn. Continue to monitor for constipation/diarrhea, prn medication use. Date of Note:: 10/21/17 - Provider Comments Provider responsibility: Provider responsible to enter orders to implement recommendations <Alejo Ortega Chi - Last Filed: 10/24/17 18:19> Progress Note - Pharmacy Subjective: [] Objective: Allergies amoxicillin trihydrate [From Augmentin] Adverse Reaction (Verified 10/08/17 03:17) Upset Stomach diclofenac sodium [From Arthrotec] Adverse Reaction (Verified 10/08/17 03:17) Upset Stomach doxycycline Adverse Reaction (Verified 10/08/17 03:17) Upset Stomach erythromycin base Adverse Reaction (Verified 10/08/17 03:17) Upset Stomach etodolac [From Lodine] Adverse Reaction (Verified 10/08/17 03:17) Upset Stomach flurbiprofen [From Ansaid] Adverse Reaction (Verified 10/08/17 03:17) Upset Stomach misoprostol [From Arthrotec] Adverse Reaction (Verified 10/08/17 03:17) Upset Stomach NSAIDS (Non-Steroidal Anti-Inflamma Adverse Reaction (Verified 10/08/17 03:17) Other potassium clavulanate [From Augmentin] Adverse Reaction (Verified 10/08/17 03:17) Upset Stomach rofecoxib [From Vioxx] Adverse Reaction (Verified 10/08/17 03:17) Upset Stomach Current Medications Generic Name Dose Route Start Last Admin Trade Name Freq PRN Reason Stop Dose Admin Acetaminophen 1,000 mg 10/18/17 16:11 Tylenol PO Q8H PRN PRN Amoxicillin/Clavulanate Potassium 875 mg 10/18/17 18:00 10/24/17 18:09 Augmentin Tablet PO 875 mg BID [facility] Administration Calamine/Phenol 1 applic 10/18/17 22:00 10/24/17 06:00 Calmoseptine Ointment TOPICAL 1 applicatio BID@0600,2200 DINO Administration Ciprofloxacin HCl 500 mg 10/19/17 06:00 10/24/17 09:00 Cipro PO 500 mg DAILY DINO Administration Fluconazole 200 mg 10/19/17 06:00 10/24/17 06:00 Diflucan PO 200 mg DAILY DINO Administration Guaifenesin 1,200 mg 10/19/17 06:00 10/24/17 18:10 Mucinex PO Not Given BID [facility] Magnesium Hydroxide 30 ml 10/18/17 16:19 Milk Of Magnesia PO DAILY PRN CONSTIPATION Metoprolol Tartrate 25 mg 10/18/17 18:00 10/24/17 18:11 Lopressor (Beta Janny) PO 25 mg BID DINO Administration Ondansetron HCl 4 mg 10/18/17 16:06 Zofran Odt PO Q6H PRN PRN NAUSEA/VOMITING Pantoprazole Sodium 40 mg 10/19/17 06:00 10/24/17 06:00 Protonix PO 40 mg DAILY [facility] Administration Polyethylene Glycol 17 gm 10/19/17 06:00 10/24/17 06:00 Miralax PO Not Given DAILY [facility] Polysaccharide Iron Complex 150 mg 10/25/17 08:00 Ferrex 150 PO DAILYCM [facility] Prednisone 5 mg 10/19/17 08:00 10/24/17 12:45 PO 5 mg BID@0800,1200 [facility] Administration Prednisone 2.5 mg 10/25/17 21:00 PO DAILY@2100 [facility] Tuberculin PPD 5 tu 10/26/17 10:00 Tubersol, Aplisol, Ppd ID 10/26/17 10:01 X1 ONE Warfarin Sodium 2 mg 10/22/17 17:00 10/24/17 18:10 Coumadin (Pbkc) PO 2 mg DAILY@1700 [facility] Administration Vital Signs Temp Pulse Resp BP Pulse Ox 97.2 F L 85 18 124/69 H 99 10/24/17 16:00 10/24/17 18:11 10/24/17 16:00 10/24/17 18:11 10/24/17 16:00 Oxygen Delivery Method Room Air Weight: 65.5 kg Body Mass Index (BMI) 28.2 Sodium 142 mmol/L (136-145) 10/19/17 Unknown Potassium 4.3 mmol/L (3.5-5.1) 10/19/17 Unknown Chloride 110 mmol/L (98-107) H 10/19/17 Unknown Carbon Dioxide 23.0 mmol/L (21.0-32.0) 10/19/17 Unknown Anion Gap 9 (5-15) 10/19/17 Unknown BUN 30 mg/dL (7-18) H 10/19/17 Unknown Creatinine 1.18 mg/dL (0.55-1.02) H 10/19/17 Unknown Est GFR (MDRD) Af Amer 57 mL/min (>60) L 10/19/17 Unknown Est GFR (MDRD) Non-Af 47 mL/min (>60) L 10/19/17 Unknown BUN/Creatinine Ratio 25.4 RATIO (10-20) H 10/19/17 Unknown Glucose 95 mg/dL (74-106) 10/19/17 Unknown Assessment/Plan: Psychotropic Medications: Unnecessary Medications: Bowel Regimen: - Provider Comments Provider responsibility: Provider responsible to enter orders to implement recommendations Provider Comments to Recommendations by Pharmacy: Agree
--- NOTE | 2017-10-21 00:40 | PHA.CONS_ITS ---
<Leighton Cantrell - Last Filed: 10/21/17 00:34> Progress Note - Pharmacy Subjective: [] Objective: Allergies amoxicillin trihydrate [From Augmentin] Adverse Reaction (Verified 10/08/17 03: 17) Upset Stomach diclofenac sodium [From Arthrotec] Adverse Reaction (Verified 10/08/17 03:17) Upset Stomach doxycycline Adverse Reaction (Verified 10/08/17 03:17) Upset Stomach erythromycin base Adverse Reaction (Verified 10/08/17 03:17) Upset Stomach etodolac [From Lodine] Adverse Reaction (Verified 10/08/17 03:17) Upset Stomach flurbiprofen [From Ansaid] Adverse Reaction (Verified 10/08/17 03:17) Upset Stomach misoprostol [From Arthrotec] Adverse Reaction (Verified 10/08/17 03:17) Upset Stomach NSAIDS (Non-Steroidal Anti-Inflamma Adverse Reaction (Verified 10/08/17 03:17) Other potassium clavulanate [From Augmentin] Adverse Reaction (Verified 10/08/17 03:17 ) Upset Stomach rofecoxib [From Vioxx] Adverse Reaction (Verified 10/08/17 03:17) Upset Stomach Current Medications Generic Name Dose Route Start Last Admin Trade Name Freq PRN Reason Stop Dose Admin Acetaminophen 1,000 mg 10/18/17 16:11 Tylenol PO Q8H PRN PRN Hydrocodone Bitart/Acetaminophen 1 tablet 10/18/17 16:04 Boody 5mg-325mg PO 10/23/17 22:00 Q4H PRN PRN SEVERE PAIN (6-10/10) Amoxicillin/Clavulanate Potassium 875 mg 10/18/17 18:00 Augmentin Tablet PO BID [facility] Calamine/Phenol 1 applic 10/18/17 22:00 Calmoseptine Ointment TOPICAL BID@0600,2200 [facility] Ciprofloxacin HCl 500 mg 10/19/17 06:00 Cipro PO DAILY [facility] Enoxaparin Sodium 70 mg 10/19/17 06:00 Lovenox SC DAILY DINO Fluconazole 200 mg 10/19/17 06:00 Diflucan PO DAILY [facility] Guaifenesin 1,200 mg 10/19/17 06:00 Mucinex PO BID [facility] Magnesium Hydroxide 30 ml 10/18/17 16:19 Milk Of Magnesia PO DAILY PRN CONSTIPATION Metoprolol Tartrate 25 mg 10/18/17 18:00 Lopressor (Beta Janny) PO BID [facility] Ondansetron HCl 4 mg 10/18/17 16:06 Zofran Odt PO Q6H PRN PRN NAUSEA/VOMITING Pantoprazole Sodium 40 mg 10/19/17 06:00 Protonix PO DAILY [facility] Polyethylene Glycol 17 gm 10/19/17 06:00 Miralax PO DAILY [facility] Prednisone 5 mg 10/19/17 08:00 PO BID@0800,1200 [facility] Prednisone 2.5 mg 10/18/17 17:00 PO DAILY@1700 [facility] Tuberculin PPD 5 tu 10/26/17 10:00 Tubersol, Aplisol, Ppd ID 10/26/17 10:01 X1 ONE Warfarin Sodium 2.5 mg 10/21/17 17:00 Coumadin (Pbkc) PO DAILY@1700 [facility] Assessment/Plan: 1) Pain APAP prn for mild pain, hydrocodone/APAP for severe pain. Continue to monitor daily pain scores, prn medication use. 2) ID Amoxicillin/clavulanate, ciprofloxacin, fluconazole. Continue to monitor s/s infection. 3) Cardiac Metoprolol twice daily. Continue to monitor BP/HR. 4) GI Pantoprazole daily, ondansetron prn. Continue to monitor prn medication use, s/s GI distress. 5) Endocrine Prednisone 3x daily. Continue to monitor clinically. 6) Pulm Guaifenesin twice daily. Continue to monitor clinically. 7) Clot Enoxaparin daily, warfarin daily. Continue to monitor PT/INR until within range. 8) Derm Calmoseptine topically. Continue to monitor clinically. Psychotropic Medications: None Unnecessary Medications: None Bowel Regimen: 9) PEG daily, MgOH prn. Continue to monitor for constipation/diarrhea, prn medication use. Date of Note:: 10/21/17 - Provider Comments Provider responsibility: Provider responsible to enter orders to implement recommendations <Alejo Ortega Chi - Last Filed: 10/24/17 18:19> Progress Note - Pharmacy Subjective: [] Objective: Allergies amoxicillin trihydrate [From Augmentin] Adverse Reaction (Verified 10/08/17 03: 17) Upset Stomach diclofenac sodium [From Arthrotec] Adverse Reaction (Verified 10/08/17 03:17) Upset Stomach doxycycline Adverse Reaction (Verified 10/08/17 03:17) Upset Stomach erythromycin base Adverse Reaction (Verified 10/08/17 03:17) Upset Stomach etodolac [From Lodine] Adverse Reaction (Verified 10/08/17 03:17) Upset Stomach flurbiprofen [From Ansaid] Adverse Reaction (Verified 10/08/17 03:17) Upset Stomach misoprostol [From Arthrotec] Adverse Reaction (Verified 10/08/17 03:17) Upset Stomach NSAIDS (Non-Steroidal Anti-Inflamma Adverse Reaction (Verified 10/08/17 03:17) Other potassium clavulanate [From Augmentin] Adverse Reaction (Verified 10/08/17 03:17 ) Upset Stomach rofecoxib [From Vioxx] Adverse Reaction (Verified 10/08/17 03:17) Upset Stomach Current Medications Generic Name Dose Route Start Last Admin Trade Name Freq PRN Reason Stop Dose Admin Acetaminophen 1,000 mg 10/18/17 16:11 Tylenol PO Q8H PRN PRN Amoxicillin/Clavulanate Potassium 875 mg 10/18/17 18:00 10/24/17 18:09 Augmentin Tablet PO 875 mg BID [facility] Administration Calamine/Phenol 1 applic 10/18/17 22:00 10/24/17 06:00 Calmoseptine Ointment TOPICAL 1 applicatio BID@0600,2200 DINO Administration Ciprofloxacin HCl 500 mg 10/19/17 06:00 10/24/17 09:00 Cipro PO 500 mg DAILY DINO Administration Fluconazole 200 mg 10/19/17 06:00 10/24/17 06:00 Diflucan PO 200 mg DAILY DINO Administration Guaifenesin 1,200 mg 10/19/17 06:00 10/24/17 18:10 Mucinex PO Not Given BID [facility] Magnesium Hydroxide 30 ml 10/18/17 16:19 Milk Of Magnesia PO DAILY PRN CONSTIPATION Metoprolol Tartrate 25 mg 10/18/17 18:00 10/24/17 18:11 Lopressor (Beta Janny) PO 25 mg BID DINO Administration Ondansetron HCl 4 mg 10/18/17 16:06 Zofran Odt PO Q6H PRN PRN NAUSEA/VOMITING Pantoprazole Sodium 40 mg 10/19/17 06:00 10/24/17 06:00 Protonix PO 40 mg DAILY [facility] Administration Polyethylene Glycol 17 gm 10/19/17 06:00 10/24/17 06:00 Miralax PO Not Given DAILY [facility] Polysaccharide Iron Complex 150 mg 10/25/17 08:00 Ferrex 150 PO DAILYCM [facility] Prednisone 5 mg 10/19/17 08:00 10/24/17 12:45 PO 5 mg BID@0800,1200 [facility] Administration Prednisone 2.5 mg 10/25/17 21:00 PO DAILY@2100 [facility] Tuberculin PPD 5 tu 10/26/17 10:00 Tubersol, Aplisol, Ppd ID 10/26/17 10:01 X1 ONE Warfarin Sodium 2 mg 10/22/17 17:00 10/24/17 18:10 Coumadin (Pbkc) PO 2 mg DAILY@1700 [facility] Administration Vital Signs Temp Pulse Resp BP Pulse Ox 97.2 F L 85 18 124/69 H 99 10/24/17 16:00 10/24/17 18:11 10/24/17 16:00 10/24/17 18:11 10/24/17 16:00 Oxygen Delivery Method Room Air Weight: 65.5 kg Body Mass Index (BMI) 28.2 Sodium 142 mmol/L (136-145) 10/19/17 Unknown Potassium 4.3 mmol/L (3.5-5.1) 10/19/17 Unknown Chloride 110 mmol/L (98-107) H 10/19/17 Unknown Carbon Dioxide 23.0 mmol/L (21.0-32.0) 10/19/17 Unknown Anion Gap 9 (5-15) 10/19/17 Unknown BUN 30 mg/dL (7-18) H 10/19/17 Unknown Creatinine 1.18 mg/dL (0.55-1.02) H 10/19/17 Unknown Est GFR (MDRD) Af Amer 57 mL/min (>60) L 10/19/17 Unknown Est GFR (MDRD) Non-Af 47 mL/min (>60) L 10/19/17 Unknown BUN/Creatinine Ratio 25.4 RATIO (10-20) H 10/19/17 Unknown Glucose 95 mg/dL (74-106) 10/19/17 Unknown Assessment/Plan: Psychotropic Medications: Unnecessary Medications: Bowel Regimen: - Provider Comments Provider responsibility: Provider responsible to enter orders to implement recommendations Provider Comments to Recommendations by Pharmacy: Agree
[2017-10-22 07:04] LABS: International Normalized Ratio 1.2; Prothrombin Time (Protime)PT. 15.2 SECONDS (11.7-14.9)
[2017-10-22 07:05] LABS: Absolute Lymphocyte Count 1.61 X10^3/ul (0.83-4.51); Absolute Neutrophil Count 8.4 X10^3/uL (2.0-7.7); Basophil% 0.1 % (0-1); Differential Indicated SCAN CRITERIA MET; Eosinophils% 0.6 % (0-5); Hematocrit 29.9 % (37-47); Hemoglobin 9.2 g/dl (12.0-15.0); Lymphocyte # 1.61 X10^3/ul (4.0); Lymphocyte % 14.8 % (19-41); Mean Corp Hgb Conc 30.8 g/gl (32-36); Mean Corpuscular Hgb 31.1 pg (27.0-32.0); Mean Platelet Vol. 9.3 fl (6.2-12.0); Monocyte# 0.74 X10^3/uL; Monocyte% 6.8 % (0-10); Neutrophil # 8.36 X10^3/uL (2.7-7.7); Neutrophil % 76.6 % (47-70); POSITIVE COUNT NO; POSITIVE DIFFERENTIAL NO; POSITIVE MORPHOLOGY YES; Platelet Count 440 K/mm3 (150-450); RBC Distribution Width CV 20.4 % (11.6-14.6); RBC Distribution Width SD 74.7 fl (35.1-43.9); Red Blood Count 2.96 M/mm3 (4.2-5.4); White Blood Count 10.9 K/mm3 (4.4-11.0)
[2017-10-22 07:06] LABS: Basophil# 0.01 X10^3/uL; Differential Comment SCANNED; Eosinophil# 0.06 X10^3/uL
[2017-10-22 07:34] LABS: Anion Gap 9 (5-15); BUN 30 mg/dL (7-18); BUN/Creat Ratio 25.4 RATIO (10-20); Calcium,Total 8.8 mg/dL (8.5-10.1); Chloride 110 mmol/L (98-107); Creatinine, Serum 1.18 mg/dL (0.55-1.02); EST Glomerular Filtration Rate 47 mL/min (>60); Est Glom Filt Rate - Afr Amer 57 mL/min (>60); Glucose 95 mg/dL (74-106); Potassium 4.3 mmol/L (3.5-5.1); Sodium Level 142 mmol/L (136-145)
[2017-10-22 15:20] LABS: International Normalized Ratio 1.3; Prothrombin Time (Protime)PT. 16.1 SECONDS (11.7-14.9)
[2017-10-24 06:00] VITALS: PULSE 86
[2017-10-24] MEDS: Pantoprazole Sodium 40 MG Tablet PO (06:00)
[2017-10-24] MEDS: Fluconazole 100 MG Tablet 200 MG PO (06:00)
[2017-10-24] MEDS: Metoprolol Tartrate 25 MG Tablet PO ×2 (06:00→18:11)
[2017-10-24] MEDS: Menthol/Lanolin/Calamine/Znox 113 GM Tube 1 APPLIC TOPICAL ×3 (06:00→20:05)
[2017-10-24 06:30] LABS: International Normalized Ratio 2.4; Prothrombin Time (Protime)PT. 26.2 SECONDS (11.7-14.9)
[2017-10-24] MEDS: predniSONE 5 MG Tablet PO ×2 (08:00→12:45)
[2017-10-24] MEDS: Ciprofloxacin 500 MG Tablet PO (09:00)
[2017-10-24] MEDS: Amox/Clavulanate 875 MG Tablet PO ×2 (09:00→18:09)
[2017-10-24 12:06] LABS: International Normalized Ratio 1.3; Prothrombin Time (Protime)PT. 16.1 SECONDS (11.7-14.9)
--- NOTE | 2017-10-24 15:26 | CHAPLAIN ---
Type of Pastoral Visit _x__ Initial Visit ___ Follow-up Visit ___ On-call Visit ___ General Patient Visit ___ Spiritual Assessment ___ Family Conference ___ Bereavement ___ Rapid Response ___ Code Blue ___ Other (describe below) Pastoral Care Referral From _x__ Patient ___ Family ___ Nurse ___ Physician ___ Nutritional Chemist ___ Tar Roofer ___ Other (describe below) Sacrament/Intervention _x__ Active listening ___ Anointing ___ Synagogue ___ Bereavement ___ Communion ___ Tatum exploration ___ ___ Life review ___ Prayer ___ Reconciliation ___ Sacrament of Sick _x__ Supportive presence ___ Wedding ___ Other (describe below) Pastoral Comments patient is watching TV and in bed; pt mentions that this has been a hard day; when asked about this statement, pt says that it is from the memories; pt becomes tearful; asking pt to talk about the memories, the pt says that she does not want to talk about them because it makes her sad and I have to not think about it and push on; this agent spa desk asked pt to consider that expressing herself may be helpful, pt says my daughter has lectured me about just moving on and I have to keep my focus and not think about it; offered support in future if she would like that; pt said that she hopes to have communion today but no one has come yet; offered to check on this if pt has been overlooked for communion from [employer] [facility]
[2017-10-24 16:00] VITALS: BP 124/69; PULSE 85; RESP 18; TEMP 36.2; O2SAT 99
--- NOTE | 2017-10-24 16:17 | CASEMGMT ---
Insurance Continued stay approved with next update due on 10/27/17 Auth#[id number] Joycelyn GARCIA, ENVIRONMENTAL ASSISTANT
[2017-10-24] MEDS: predniSONE 5 MG Tablet 2.5 MG PO (18:10)
[2017-10-24 18:11] VITALS: BP 124/69; PULSE 85
[2017-10-25 03:52] LABS: International Normalized Ratio 2.3
[2017-10-25 05:47] VITALS: PULSE 83
[2017-10-25] MEDS: Metoprolol Tartrate 25 MG Tablet PO ×2 (05:47→17:58)
[2017-10-25] MEDS: Pantoprazole Sodium 40 MG Tablet PO (05:47)
[2017-10-25] MEDS: Fluconazole 100 MG Tablet 200 MG PO (05:48)
[2017-10-25] MEDS: Menthol/Lanolin/Calamine/Znox 113 GM Tube 1 APPLIC TOPICAL ×2 (05:49→20:49)
[2017-10-25 06:13] LABS: Absolute Lymphocyte Count 1.65 X10^3/ul (0.83-4.51); Absolute Neutrophil Count 6.3 X10^3/uL (2.0-7.7); Basophil# 0.04 X10^3/uL; Basophil% 0.5 % (0-1); Eosinophil# 0.08 X10^3/uL; Eosinophils% 0.9 % (0-5); Hematocrit 33.2 % (37-47); Hemoglobin 10.1 g/dl (12.0-15.0); Lymphocyte # 1.65 X10^3/ul (4.0); Lymphocyte % 18.8 % (19-41); Mean Corp Hgb Conc 30.4 g/gl (32-36); Mean Corpuscular Hgb 31.3 pg (27.0-32.0); Mean Corpuscular Volume 102.8 fL (81-99); Mean Platelet Vol. 9.2 fl (6.2-12.0); Neutrophil # 6.25 X10^3/uL (2.7-7.7); Neutrophil % 71.3 % (47-70); Platelet Count 436 K/mm3 (150-450); RBC Distribution Width CV 18.8 % (11.6-14.6); RBC Distribution Width SD 68.4 fl (35.1-43.9); Red Blood Count 3.23 M/mm3 (4.2-5.4); White Blood Count 8.8 K/mm3 (4.4-11.0)
[2017-10-25 06:20] LABS: International Normalized Ratio 3.1; Prothrombin Time (Protime)PT. 31.9 SECONDS (11.7-14.9)
[2017-10-25 06:51] LABS: Differential Indicated SCAN CRITERIA MET; POSITIVE COUNT NO; POSITIVE DIFFERENTIAL NO; POSITIVE MORPHOLOGY YES
[2017-10-25 06:53] LABS: Anisocytosis 3+; Differential Comment SCANNED; Macrocytosis 2+; Target Cells 2+
[2017-10-25 07:05] LABS: Anion Gap 8 (5-15); BUN 20 mg/dL (7-18); BUN/Creat Ratio 20.1 RATIO (10-20); Calcium,Total 8.6 mg/dL (8.5-10.1); Chloride 109 mmol/L (98-107); Creatinine, Serum 0.99 mg/dL (0.55-1.02); EST Glomerular Filtration Rate 57 mL/min (>60); Est Glom Filt Rate - Afr Amer 69 mL/min (>60); Glucose 82 mg/dL (74-106); Potassium 4.5 mmol/L (3.5-5.1); Sodium Level 141 mmol/L (136-145)
[2017-10-25] MEDS: Amox/Clavulanate 875 MG Tablet PO ×2 (10:03→20:49)
[2017-10-25] MEDS: Iron Polysaccharide Complex 150 MG CAPSULE PO (10:03)
[2017-10-25] MEDS: Ciprofloxacin 500 MG Tablet PO (10:03)
[2017-10-25] MEDS: predniSONE 5 MG Tablet PO ×2 (10:03→12:08)
--- NOTE | 2017-10-25 10:36 | CASEMGMT ---
Brief interview for mental status (BIMS) and resident mood interview (PHQ-9) completed on this day. BIMS score 15. PHQ-9 score 07/12.
--- NOTE | 2017-10-25 11:21 | NURSING ---
Per ana Tena to d/c RUDI r/t hematoma of LLE.
--- NOTE | 2017-10-25 14:23 | NURSING ---
Nayeli Lock, to transport patient to Appt on , will arrive at 0830.
[2017-10-25 15:10] LABS: International Normalized Ratio 2.3
[2017-10-25 15:30] VITALS: BP 123/68; PULSE 100; RESP 18; TEMP 36.6; O2SAT 98
[2017-10-25 17:15] LABS: Prothrombin Time (Protime)PT. 22.8 SECONDS (11.7-14.9)
[2017-10-25 17:58] VITALS: BP 123/68; PULSE 100
--- NOTE | 2017-10-25 18:37 | NURSING ---
Pt requesting celexa be d/c'd, NO to DC per Dr. Ortega.
[2017-10-25] MEDS: predniSONE 5 MG Tablet 2.5 MG PO (20:49)
[2017-10-26 05:27] VITALS: BP 151/93; PULSE 86
[2017-10-26] MEDS: Fluconazole 100 MG Tablet 200 MG PO (05:27)
[2017-10-26] MEDS: Metoprolol Tartrate 25 MG Tablet PO ×2 (05:27→16:58)
[2017-10-26] MEDS: Pantoprazole Sodium 40 MG Tablet PO (05:28)
[2017-10-26] MEDS: Menthol/Lanolin/Calamine/Znox 113 GM Tube 1 APPLIC TOPICAL ×2 (05:30→20:44)
[2017-10-26 06:24] LABS: International Normalized Ratio 3.4; Prothrombin Time (Protime)PT. 34.6 SECONDS (11.7-14.9)
[2017-10-26] MEDS: Ciprofloxacin 500 MG Tablet PO (09:09)
[2017-10-26] MEDS: Iron Polysaccharide Complex 150 MG CAPSULE PO (09:09)
[2017-10-26] MEDS: Amox/Clavulanate 875 MG Tablet PO ×2 (09:09→20:49)
[2017-10-26] MEDS: predniSONE 5 MG Tablet PO ×2 (09:09→11:48)
--- NOTE | 2017-10-26 10:00 | CASEMGMT ---
Plan of care meeting held. Resident present as well as resident family. No discharge date set at this time. Resident with an insurance update due on 10/27/17, resident and resident family aware that continued stay approval is not guaranteed. Resident plans to discharge home alone at time of discharge. Resident to continue with further care and treatment on the Transitional Care Unit at this time. Support given. Will continue to follow. Joycelyn GARCIA, SUGAR PRESSER
[2017-10-26] MEDS: Tuberculin,Purif.prot.deriv. 50 TU/ML Vial 5 ML ID (11:14)
[2017-10-26 15:37] VITALS: PULSE 100
[2017-10-26] MEDS: 0.9% Saline Lock 10 ML Syringe IV ×2 (15:37→20:53)
[2017-10-26 15:56] VITALS: BP 124/74; PULSE 99; RESP 24; TEMP 36.7; O2SAT 99
[2017-10-26 16:58] VITALS: PULSE 99
--- NOTE | 2017-10-26 17:57 | NURSING ---
Resident refusing Mucinex. Orders from Dr ortega to stop medication. Resident requesting to stop Mirilax and try Senokot-S. Dr Ortega aware and orders new stool softener.
[2017-10-26] MEDS: Senna/Docusate Sodium 1 Tablet PO (18:34)
[2017-10-26] MEDS: predniSONE 5 MG Tablet 2.5 MG PO (20:50)
[2017-10-27] MEDS: Menthol/Lanolin/Calamine/Znox 113 GM Tube 1 APPLIC TOPICAL ×2 (05:11→20:03)
[2017-10-27] MEDS: Fluconazole 100 MG Tablet 200 MG PO (05:13)
[2017-10-27 05:14] VITALS: BP 142/77; PULSE 86
[2017-10-27] MEDS: Metoprolol Tartrate 25 MG Tablet PO ×2 (05:14→17:44)
[2017-10-27] MEDS: Pantoprazole Sodium 40 MG Tablet PO (05:14)
[2017-10-27] MEDS: Senna/Docusate Sodium 1 Tablet PO ×2 (05:17→17:44)
[2017-10-27 06:17] LABS: Prothrombin Time (Protime)PT. 36.2 SECONDS (11.7-14.9)
[2017-10-27 06:36] LABS: International Normalized Ratio 3.6
--- NOTE | 2017-10-27 07:02 | NURSING ---
Dr Ortega aware of INR 3.6 this AM. Order to hold Coumadin and recheck in AM. Will continue to monitor and asses.
[2017-10-27] MEDS: Ciprofloxacin 500 MG Tablet PO (08:04)
[2017-10-27] MEDS: predniSONE 5 MG Tablet PO ×3 (08:04→20:01)
[2017-10-27] MEDS: Amox/Clavulanate 875 MG Tablet PO ×2 (08:04→20:01)
--- NOTE | 2017-10-27 09:56 | NURSING ---
pt left unit 0820 via w/c for scheduled appt w/dr ford
--- NOTE | 2017-10-27 11:03 | CASEMGMT ---
Insurance Clinical information sent. Pending continued stay approval at this time. Auth#[id number] Joycelyn GARCIA, RUG MEASURER
--- NOTE | 2017-10-27 13:50 | NURSING ---
Pt returned from Dr. padgett, alert and oriented. New orders recieved.
[2017-10-27 15:28] VITALS: BP 114/64; PULSE 108; RESP 20; TEMP 36.8; O2SAT 98
[2017-10-27 17:44] VITALS: BP 114/64; PULSE 108
[2017-10-27 20:24] VITALS: PULSE 96; RESP 16; O2SAT 95
[2017-10-27] MEDS: predniSONE 5 MG Tablet 2.5 MG PO (21:54)
[2017-10-28 05:21] VITALS: BP 144/75; PULSE 84
[2017-10-28] MEDS: Metoprolol Tartrate 25 MG Tablet PO ×2 (05:21→17:00)
[2017-10-28] MEDS: Menthol/Lanolin/Calamine/Znox 113 GM Tube 1 APPLIC TOPICAL ×2 (05:21→21:00)
[2017-10-28] MEDS: Pantoprazole Sodium 40 MG Tablet PO (05:21)
[2017-10-28] MEDS: Fluconazole 100 MG Tablet 200 MG PO (05:22)
[2017-10-28] MEDS: Senna/Docusate Sodium 1 Tablet PO ×2 (05:23→17:00)
[2017-10-28 06:01] LABS: International Normalized Ratio 3.4; Prothrombin Time (Protime)PT. 34.5 SECONDS (11.7-14.9)
[2017-10-28] MEDS: Amox/Clavulanate 875 MG Tablet PO ×2 (08:53→20:58)
[2017-10-28] MEDS: Ciprofloxacin 500 MG Tablet PO (08:53)
[2017-10-28] MEDS: predniSONE 5 MG Tablet PO ×2 (08:54→12:00)
--- NOTE | 2017-10-28 10:28 | CASEMGMT ---
Insurance Continued stay denied with last cover day begin 10/30/17 with resident to discharge or financial responsibility to begin on 10/31/17. Auth#[id number] Joycelyn GARCIA, TILE MOLDER HAND
--- NOTE | 2017-10-28 10:29 | CASEMGMT ---
Social Work Spoke with resident in room. This drug abuse social worker communicating that continued stay has been denied by insurance with a last cover day of 10/30/17 and resident to discharge or financial responsibility to begin on 10/31/17. Resident choosing to discharge on 10/31/17 to home alone. This drug abuse social worker communicating to resident that physical and occupational therapy as well as nursing are recommending for resident to have continued services within the home. Resident is agreeable to recommendation and requesting for home health services to be set up through [facility] ([facility]). Nursing staff to also begin wound care teaching with resident. Resident is agreeable to teaching and planning to be able to manage wound within the home alone with [facility] through [facility]. Resident agreeable to this drug abuse social worker contacting resident daughter, Nayeli in regards to discharge date/information. Telephone call to Nayeli Tyler agreeable to all discharge planning and date. Nayeli plans to provide transportation home for resident at time of discharge. Support given. [facility] This drug abuse social worker making referral for physical and occupational therapy as well as [facility]. Order to be completed. Proposed discharge date: 10/31/17 PLAN: Discharge home alone with home health services. Joycelyn GARCIA, RECOVERY SPECIALIST
[2017-10-28 11:24] LABS: International Normalized Ratio 3.2; Prothrombin Time (Protime)PT. 33.2 SECONDS (11.7-14.9)
--- NOTE | 2017-10-28 13:48 | DCINST_ITS ---
You will use the following diet at home:: No restrictions, Regular Your food should be the consistency of: Regular Your liquids should be the consistency of: Regular/Thin Discharge Activity: Return to Normal Activity, May Shower, Use Walker Weight Bearing Status: Weight bearing as tolerated Call your doctor if you observe: Fever of 101 or Higher, Inability to urinate, Inability to have a bowel movement, Shortness of breath, Chest pain, Uncontrolled pain Allergies/Adverse Reactions: Allergies amoxicillin trihydrate [From Augmentin] Adverse Reaction (Verified 10/08/17 03: 17) Upset Stomach diclofenac sodium [From Arthrotec] Adverse Reaction (Verified 10/08/17 03:17) Upset Stomach doxycycline Adverse Reaction (Verified 10/08/17 03:17) Upset Stomach erythromycin base Adverse Reaction (Verified 10/08/17 03:17) Upset Stomach etodolac [From Lodine] Adverse Reaction (Verified 10/08/17 03:17) Upset Stomach flurbiprofen [From Ansaid] Adverse Reaction (Verified 10/08/17 03:17) Upset Stomach misoprostol [From Arthrotec] Adverse Reaction (Verified 10/08/17 03:17) Upset Stomach NSAIDS (Non-Steroidal Anti-Inflamma Adverse Reaction (Verified 10/08/17 03:17) Other potassium clavulanate [From Augmentin] Adverse Reaction (Verified 10/08/17 03:17 ) Upset Stomach rofecoxib [From Vioxx] Adverse Reaction (Verified 10/08/17 03:17) Upset Stomach Medications to take at Discharge Prednisone 5 mg PO DAILY 09/18/17 Acetaminophen [Tylenol] 1,000 mg PO Q8H PRN PRN tablet 10/28/17 Iron Polysaccharide Complex [Ferrex 150] 150 mg PO DAILYCM capsule 10/28/17 Menthol/Lanolin/Calamine/Znox [Calmoseptine Ointment] 1 applic TOPICAL BID@0600, 2200 tube 10/28/17 Metoprolol Tartrate [Lopressor (beta ab)] 25 mg PO BID #60 tab 10/28/17 Pantoprazole Sodium [Protonix] 40 mg PO DAILY #30 tab 10/28/17 The following prescriptions were given: Pantoprazole Sodium [Protonix] 40 mg PO DAILY #30 tab Metoprolol Tartrate [Lopressor (beta ab)] 25 mg PO BID #60 tab Orders to be completed after discharge: Prothrombin Time w/INR Time Frame: 1 Day, Location: Laboratory Primary Care Physician: Jared Romero MD [Primary Care Provider] - Please follow up with your Primary Care Physician in: 1 week. Please Follow Up With: Dr Ferro Please Follow Up With: Dr Islas When: 2 weeks. Proposed Discharge Date: 10/31/17
--- NOTE | 2017-10-28 13:48 | PCM.DC.SUM ---
Discharge Date and Diagnosis Date of Admission: 09/21/17 Date of Discharge: 10/31/17 - Secondary Discharge Diagnosis Chronic Problems Osteoarthritis (Chronic) Low back pain (Chronic) Allergic rhinitis (Chronic) Anxiety (Chronic) GERD (gastroesophageal reflux disease) (Chronic) History of bowel perforation (Chronic) History of GI bleed (Chronic) History of pulmonary embolism (Chronic) Chronic anemia (Chronic) Stage III chronic kidney disease (Chronic) Addisons disease (Chronic) Hospital Course and Treatment Imaging Results: 10/24/17 16:51 Diet: Regular Diet Food consistency:: Regular Liquid Consistency:: Regular/Thin Is pt able to select menu?: Yes Diet Comments: Cardiac, Low Sodium Labs (Last 48 Hours) 10/27/17 10/28/17 10/28/17 05:20 05:20 11:10 PT 36.2 H 34.5 H 33.2 H INR 3.6 H* 3.4 3.2 Consultations 10/24/17 Consult: Onc/Wound/hearing consultant Routine Comment: Reason for Consult:: lle hematoma Operations: None Procedures: None Summary of Care Provided: The patient is a 77 year old Female with below past medical history hospitalized for bilateral lower extremity DVT, bilateral pulmonary embolism, treated with LMWH, NOAC avoided due to recent GI bleed, Venofer given for iron deficiency anemia, then intrabdominal abscess, admitted to TCU with debility, here for rehabilitation, strengthening, prior to discharge home. On TCU, resident was on triple antibiotics for intraabdominal abscess, INR supratherapeutic, warfarin held, will defer to primary care doctor to resume warfarin for treatment of deep vein thrombosis, pulmonary embolism. Discharge home alone, with Home Health Services. Discharge Diet: No Restrictions Discharge Activity: Return to Normal Activity, May Shower, Use Walker Weight Bearing Status: Weight bearing as tolerated Call your doctor if you observe: Fever of 101 or Higher, Inability to urinate, Inability to have a bowel movement, Shortness of breath, Chest pain, Uncontrolled pain Home Medications: Medications to take at Discharge Prednisone 5 mg PO DAILY 09/18/17 Acetaminophen [Tylenol] 1,000 mg PO Q8H PRN PRN tablet 10/28/17 Iron Polysaccharide Complex [Ferrex 150] 150 mg PO DAILYCM capsule 10/28/17 Menthol/Lanolin/Calamine/Znox [Calmoseptine Ointment] 1 applic TOPICAL BID@0600,2200 tube 10/28/17 Metoprolol Tartrate [Lopressor (beta ab)] 25 mg PO BID #60 tab 10/28/17 Pantoprazole Sodium [Protonix] 40 mg PO DAILY #30 tab 10/28/17 Following Prescrptions Were Given to Patient: Pantoprazole Sodium [Protonix] 40 mg PO DAILY #30 tab Metoprolol Tartrate [Lopressor (beta ab)] 25 mg PO BID #60 tab Other Amb Orders: Prothrombin Time w/INR Time Frame: 1 Day, Location: Laboratory Primary Care Physician: Jared Romero MD [Primary Care Provider] - Please follow up with your Primary Care Physician in: 1 week. Please Follow Up With: Dr Ferro Please Follow Up With: Dr Islas When: 2 weeks. Disposition: Home with Home Health Minutes spent on discharge:: 35 Patient Condition:: Stable Medical Necessity - Tobacco Use Smoking Status: Never smoker Meaningful Use Info Meaningful Use Diagnoses (Choose all that apply): None applicable
--- NOTE | 2017-10-28 13:53 | DS.PCM_ITS ---
Discharge Date and Diagnosis Date of Admission: 09/21/17 Date of Discharge: 10/31/17 - Secondary Discharge Diagnosis Chronic Problems Osteoarthritis (Chronic) Low back pain (Chronic) Allergic rhinitis (Chronic) Anxiety (Chronic) GERD (gastroesophageal reflux disease) (Chronic) History of bowel perforation (Chronic) History of GI bleed (Chronic) History of pulmonary embolism (Chronic) Chronic anemia (Chronic) Stage III chronic kidney disease (Chronic) Addisons disease (Chronic) Hospital Course and Treatment Imaging Results: 10/24/17 16:51 Diet: Regular Diet Food consistency:: Regular Liquid Consistency:: Regular/Thin Is pt able to select menu?: Yes Diet Comments: Cardiac, Low Sodium Labs (Last 48 Hours) 10/27/17 10/28/17 10/28/17 05:20 05:20 11:10 PT 36.2 H 34.5 H 33.2 H INR 3.6 H* 3.4 3.2 Consultations 10/24/17 Consult: Onc/Wound/transportation security screener Routine Comment: Reason for Consult:: lle hematoma Operations: None Procedures: None Summary of Care Provided: The patient is a 77 year old Female with below past medical history hospitalized for bilateral lower extremity DVT, bilateral pulmonary embolism, treated with LMWH, NOAC avoided due to recent GI bleed, Venofer given for iron deficiency anemia, then intrabdominal abscess, admitted to TCU with debility, here for rehabilitation, strengthening, prior to discharge home. On TCU, resident was on triple antibiotics for intraabdominal abscess, INR supratherapeutic, warfarin held, will defer to primary care doctor to resume warfarin for treatment of deep vein thrombosis, pulmonary embolism. Discharge home alone, with Home Health Services. Discharge Diet: No Restrictions Discharge Activity: Return to Normal Activity, May Shower, Use Walker Weight Bearing Status: Weight bearing as tolerated Call your doctor if you observe: Fever of 101 or Higher, Inability to urinate, Inability to have a bowel movement, Shortness of breath, Chest pain, Uncontrolled pain Home Medications: Medications to take at Discharge Prednisone 5 mg PO DAILY 09/18/17 Acetaminophen [Tylenol] 1,000 mg PO Q8H PRN PRN tablet 10/28/17 Iron Polysaccharide Complex [Ferrex 150] 150 mg PO DAILYCM capsule 10/28/17 Menthol/Lanolin/Calamine/Znox [Calmoseptine Ointment] 1 applic TOPICAL BID@0600, 2200 tube 10/28/17 Metoprolol Tartrate [Lopressor (beta ab)] 25 mg PO BID #60 tab 10/28/17 Pantoprazole Sodium [Protonix] 40 mg PO DAILY #30 tab 10/28/17 Following Prescrptions Were Given to Patient: Pantoprazole Sodium [Protonix] 40 mg PO DAILY #30 tab Metoprolol Tartrate [Lopressor (beta ab)] 25 mg PO BID #60 tab Other Amb Orders: Prothrombin Time w/INR Time Frame: 1 Day, Location: Laboratory Primary Care Physician: Jared Romero MD [Primary Care Provider] - Please follow up with your Primary Care Physician in: 1 week. Please Follow Up With: Dr Ferro Please Follow Up With: Dr Islas When: 2 weeks. Disposition: Home with Home Health Minutes spent on discharge:: 35 Patient Condition:: Stable Medical Necessity - Tobacco Use Smoking Status: Never smoker Meaningful Use Info Meaningful Use Diagnoses (Choose all that apply): None applicable
--- NOTE | 2017-10-28 13:54 | HHNOTE_ITS ---
Home Health Note - Plan Overview of reason of hospitalization: The patient is a 77 year old Female with below past medical history hospitalized for bilateral lower extremity DVT, bilateral pulmonary embolism, treated with LMWH, NOAC avoided due to recent GI bleed, Venofer given for iron deficiency anemia, then intrabdominal abscess, admitted to TCU with debility, here for rehabilitation, strengthening, prior to discharge home. On TCU, resident was on triple antibiotics for intraabdominal abscess, INR supratherapeutic, warfarin held, will defer to primary care doctor to resume warfarin for treatment of deep vein thrombosis, pulmonary embolism. Discharge home alone, with Home Health Services. Problems: Complete List of Medical Problems Pulmonary emboli (Acute) DVT (deep venous thrombosis) (Acute) Debility (Acute) Osteoarthritis (Chronic) Low back pain (Chronic) Allergic rhinitis (Chronic) Anxiety (Chronic) GERD (gastroesophageal reflux disease) (Chronic) History of bowel perforation (Chronic) History of GI bleed (Chronic) History of pulmonary embolism (Chronic) Chronic anemia (Chronic) Stage III chronic kidney disease (Chronic) Addisons disease (Chronic) - Requirements and Reasons Disciplines Needed/Ordered: Alf, Physical Therapy Reason for Disciplines: Disease Specific Monitoring/education, Medication Management/Knowledge Deficit, Wound Care, Gait Training, Stair Training, Fall Prevention, Home Safety/Equipment Instruction, Balance and/or Posture Training, Transfer Training Related To: Limited/Poor Endurance, Shortness of Breath with Activity, Physical Impairments, Unsteady Gait/Balance, Fall Risk Patient is unable to leave the home: Without Aid of Supportive Devices (crutches , cane, wheelchair, walker), Without the assistance of another person - Additional Disciplines Additional Disciplines Needed/Ordered: Occupational Therapy
[2017-10-28 15:39] VITALS: BP 126/89; PULSE 62; RESP 16; TEMP 36.7; O2SAT 94
[2017-10-28 17:00] VITALS: PULSE 62
[2017-10-28] MEDS: predniSONE 5 MG Tablet 2.5 MG PO (20:59)
[2017-10-29 06:18] VITALS: BP 149/84; PULSE 83
[2017-10-29] MEDS: Senna/Docusate Sodium 1 Tablet PO ×2 (06:18→17:35)
[2017-10-29] MEDS: Fluconazole 100 MG Tablet 200 MG PO (06:18)
[2017-10-29] MEDS: Metoprolol Tartrate 25 MG Tablet PO ×2 (06:18→17:34)
[2017-10-29] MEDS: Pantoprazole Sodium 40 MG Tablet PO (06:18)
[2017-10-29] MEDS: Menthol/Lanolin/Calamine/Znox 113 GM Tube 1 APPLIC TOPICAL (06:19)
[2017-10-29 08:28] LABS: International Normalized Ratio 3.1; Prothrombin Time (Protime)PT. 32.4 SECONDS (11.7-14.9)
[2017-10-29] MEDS: predniSONE 5 MG Tablet PO ×2 (08:43→12:18)
[2017-10-29] MEDS: Ciprofloxacin 500 MG Tablet PO (08:43)
[2017-10-29] MEDS: Amox/Clavulanate 875 MG Tablet PO ×2 (08:43→21:03)
[2017-10-29 15:40] VITALS: BP 164/82; PULSE 87; RESP 18; TEMP 36.2; O2SAT 91
[2017-10-29 15:54] VITALS: BP 118/80; PULSE 97; RESP 18; TEMP 36.7; O2SAT 97
[2017-10-29 17:34] VITALS: PULSE 102
[2017-10-29] MEDS: predniSONE 5 MG Tablet 2.5 MG PO (21:03)
[2017-10-30 05:53] VITALS: BP 137/79; PULSE 90
[2017-10-30 05:55] VITALS: PULSE 90
[2017-10-30] MEDS: Metoprolol Tartrate 25 MG Tablet PO ×2 (05:55→17:13)
[2017-10-30] MEDS: Fluconazole 100 MG Tablet 200 MG PO (05:55)
[2017-10-30] MEDS: Pantoprazole Sodium 40 MG Tablet PO (05:56)
[2017-10-30] MEDS: Senna/Docusate Sodium 1 Tablet PO ×2 (05:56→17:15)
[2017-10-30 07:06] LABS: International Normalized Ratio 2.6; Prothrombin Time (Protime)PT. 27.6 SECONDS (11.7-14.9)
[2017-10-30] MEDS: Amox/Clavulanate 875 MG Tablet PO ×2 (07:53→19:41)
[2017-10-30] MEDS: Ciprofloxacin 500 MG Tablet PO (07:54)
[2017-10-30] MEDS: predniSONE 5 MG Tablet PO ×2 (07:54→11:48)
[2017-10-30 15:09] VITALS: BP 128/74; PULSE 100; RESP 18; TEMP 37.2; O2SAT 97
[2017-10-30 17:13] VITALS: BP 128/74; PULSE 100
[2017-10-30] MEDS: predniSONE 5 MG Tablet 2.5 MG PO (19:41)
[2017-10-31 06:15] LABS: International Normalized Ratio 2.2; Prothrombin Time (Protime)PT. 24.2 SECONDS (11.7-14.9)
[2017-10-31] MEDS: Fluconazole 100 MG Tablet 200 MG PO (06:25)
[2017-10-31] MEDS: Pantoprazole Sodium 40 MG Tablet PO (06:25)
[2017-10-31 06:26] VITALS: BP 136/76; PULSE 84
[2017-10-31] MEDS: Senna/Docusate Sodium 1 Tablet PO (06:26)
[2017-10-31] MEDS: Metoprolol Tartrate 25 MG Tablet PO (06:26)
[2017-10-31] MEDS: Amox/Clavulanate 875 MG Tablet PO (08:08)
[2017-10-31] MEDS: predniSONE 5 MG Tablet PO ×2 (08:08→11:09)
[2017-10-31] MEDS: Ciprofloxacin 500 MG Tablet PO (08:08)
--- NOTE | 2017-10-31 08:09 | NURSING ---
PT REFUSING FERREX, STATES IT CAUSING CONSTIPATION.
[2017-10-31 09:11] VITALS: BP 126/83; PULSE 71; RESP 18; TEMP 36.7; O2SAT 95
--- NOTE | 2017-10-31 09:27 | NURSING ---
Addendum entered by Theodora Hawk 10/31/17 11:14: PCP CALLED IN COUMADIN, DR VENCES DICTIONARY EDITOR, FAXED ORDER FOR PT TO CONTINUE ALL ATB'S CIPRO, AUGMENTIN, & DIFLUCAN FOR 10 MORE DAYS UNTIL 11/06/17. DR MEANS AWARE AND IS ESCRIPTING THEM TO [facility]NA ALLAN Original Note: Addendum entered by Theodora Hawk 10/31/17 10:31: SPOKE WITH DR DRAKE, PCP NURSE, THEY ARE AWARE PT GOING HOME W/OUT COUMADIN TONIGHT. THEY ARE AWARE THAT SHE IS GOING HOME WITH HOME HEALTH AND THEY WILL DRAW HER LAB TOMORROW. Original Note: PT STATES SHE HAS NO COUMADIN AT HOME THAT ALL MEDS WERE THROWN AWAY, DR MEANS NOTIFIED, WANTS PT TO F/U WITH ANOTHER INR AT HOME AND HAVE HER PCP ORDER HER COUMADIN DOSING D/T SUPRATHERAPUETIC INR FEW DAYS AGO. PT INR 2.2 TODAY. PT UPDATED ON ALL. PT DID PERFORM OWN DRSG CHANGE TO LLE. NO ISSUES OR CONCERNS. PT WRAPPED DARCY LIGHTLY OVER DRESSING ORDERED.
--- NOTE | 2017-10-31 15:26 | CASEMGMT ---
Insurance Notified insurance of resident discharge on 10/31/17 to home alone with home health services. Auth#[id number] Joycelyn GARCIA, BEET TOPPER
--- NOTE | 2017-11-04 19:49 | PCM.HP.STD ---
History of Present Illness Date of Admission: 10/24/17 PLEASE SEE H+P SCANNED UNDER OTHER FACILITY INFORMATION 11/02/2017. Past Medical History Past Medical History (Chronic Problems): Chronic Problems Osteoarthritis (Chronic) Low back pain (Chronic) Allergic rhinitis (Chronic) Anxiety (Chronic) GERD (gastroesophageal reflux disease) (Chronic) History of bowel perforation (Chronic) History of GI bleed (Chronic) History of pulmonary embolism (Chronic) Chronic anemia (Chronic) Stage III chronic kidney disease (Chronic) Addisons disease (Chronic) Allergies amoxicillin trihydrate [From Augmentin] Adverse Reaction (Verified 10/08/17 03:17) Upset Stomach diclofenac sodium [From Arthrotec] Adverse Reaction (Verified 10/08/17 03:17) Upset Stomach doxycycline Adverse Reaction (Verified 10/08/17 03:17) Upset Stomach erythromycin base Adverse Reaction (Verified 10/08/17 03:17) Upset Stomach etodolac [From Lodine] Adverse Reaction (Verified 10/08/17 03:17) Upset Stomach flurbiprofen [From Ansaid] Adverse Reaction (Verified 10/08/17 03:17) Upset Stomach misoprostol [From Arthrotec] Adverse Reaction (Verified 10/08/17 03:17) Upset Stomach NSAIDS (Non-Steroidal Anti-Inflamma Adverse Reaction (Verified 10/08/17 03:17) Other potassium clavulanate [From Augmentin] Adverse Reaction (Verified 10/08/17 03:17) Upset Stomach rofecoxib [From Vioxx] Adverse Reaction (Verified 10/08/17 03:17) Upset Stomach Home Medications: Ambulatory Orders Medication Instructions Recorded Prednisone 5 mg PO DAILY 09/18/17 Acetaminophen [Tylenol] 1,000 mg PO Q8H PRN PRN tablet 10/28/17 Iron Polysaccharide Complex 150 mg PO DAILYCM capsule 10/28/17 [Ferrex 150] Menthol/Lanolin/Calamine/Znox 1 applic TOPICAL BID@0600,2200 10/28/17 [Calmoseptine Ointment] tube Metoprolol Tartrate [Lopressor 25 mg PO BID #60 tab 10/28/17 (beta ab)] Pantoprazole Sodium [Protonix] 40 mg PO DAILY #30 tab 10/28/17 Surgical History: total knee arthroplasty, - - Back surgery. 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
--- NOTE | 2017-11-04 19:52 | HP.PCM_ITS ---
History of Present Illness Date of Admission: 10/24/17 PLEASE SEE H+P SCANNED UNDER OTHER FACILITY INFORMATION 11/02/2017. Past Medical History Past Medical History (Chronic Problems): Chronic Problems Osteoarthritis (Chronic) Low back pain (Chronic) Allergic rhinitis (Chronic) Anxiety (Chronic) GERD (gastroesophageal reflux disease) (Chronic) History of bowel perforation (Chronic) History of GI bleed (Chronic) History of pulmonary embolism (Chronic) Chronic anemia (Chronic) Stage III chronic kidney disease (Chronic) Addisons disease (Chronic) Allergies amoxicillin trihydrate [From Augmentin] Adverse Reaction (Verified 10/08/17 03: 17) Upset Stomach diclofenac sodium [From Arthrotec] Adverse Reaction (Verified 10/08/17 03:17) Upset Stomach doxycycline Adverse Reaction (Verified 10/08/17 03:17) Upset Stomach erythromycin base Adverse Reaction (Verified 10/08/17 03:17) Upset Stomach etodolac [From Lodine] Adverse Reaction (Verified 10/08/17 03:17) Upset Stomach flurbiprofen [From Ansaid] Adverse Reaction (Verified 10/08/17 03:17) Upset Stomach misoprostol [From Arthrotec] Adverse Reaction (Verified 10/08/17 03:17) Upset Stomach NSAIDS (Non-Steroidal Anti-Inflamma Adverse Reaction (Verified 10/08/17 03:17) Other potassium clavulanate [From Augmentin] Adverse Reaction (Verified 10/08/17 03:17 ) Upset Stomach rofecoxib [From Vioxx] Adverse Reaction (Verified 10/08/17 03:17) Upset Stomach Home Medications: Ambulatory Orders Medication Instructions Recorded Prednisone 5 mg PO DAILY 09/18/17 Acetaminophen [Tylenol] 1,000 mg PO Q8H PRN PRN tablet 10/28/17 Iron Polysaccharide Complex 150 mg PO DAILYCM capsule 10/28/17 [Ferrex 150] Menthol/Lanolin/Calamine/Znox 1 applic TOPICAL BID@0600,2200 10/28/17 [Calmoseptine Ointment] tube Metoprolol Tartrate [Lopressor 25 mg PO BID #60 tab 10/28/17 (beta ab)] Pantoprazole Sodium [Protonix] 40 mg PO DAILY #30 tab 10/28/17 Surgical History: total knee arthroplasty, - - Back surgery. 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
== END 2017-10-31 11:30 | disposition home health service (06) | DRG 947 ==
PROVIDERS: Nurse Practitioner Family; Admitting Provider Family Medicine Geriatric Medicine; Family Provider Family Medicine; PCP Family Medicine; Visit Provider Family Medicine Geriatric Medicine
DX: R53.81 Other malaise (principal); K65.1 Peritoneal abscess; I26.99 Other pulmonary embolism without acute cor pulmonale; E27.1 Primary adrenocortical insufficiency; I82.409 Acute embolism and thrombosis of unspecified deep veins of unspecified lower extremity; Z66 Do not resuscitate; I73.9 Peripheral vascular disease, unspecified; I12.9 Hypertensive chronic kidney disease with stage 1 through stage 4 chronic kidney disease, or unspecified chronic kidney disease; M19.90 Unspecified osteoarthritis, unspecified site; K21.9 Gastro-esophageal reflux disease without esophagitis; Z86.711 Personal history of pulmonary embolism; N18.3 Chronic kidney disease, stage 3 (moderate); F41.9 Anxiety disorder, unspecified; D50.9 Iron deficiency anemia, unspecified; Z86.718 Personal history of other venous thrombosis and embolism
CPT/HCPCS: 36415; 80048; 85025; 85610; 97110; 97116; 97162; 97166; 97530; 97535; A4216

== ENCOUNTER 2017-11-09 12:17 | Outpatient (RCR) | payer MEDICARE, SELFPAY ==
[2017-11-09 12:47] LABS: International Normalized Ratio 3.6; Prothrombin Time (Protime)PT. 36.1 SECONDS (11.7-14.9)
== END 2017-11-12 23:59 ==
LOC: HHLAB 12:17
PROVIDERS: Family Provider Family Medicine; PCP Family Medicine; Visit Provider Family Medicine
DX: M79.81 Nontraumatic hematoma of soft tissue (principal); I26.99 Other pulmonary embolism without acute cor pulmonale; I82.403 Acute embolism and thrombosis of unspecified deep veins of lower extremity, bilateral
CPT/HCPCS: 85610

== ENCOUNTER 2017-11-17 10:01 | Outpatient (RCR) | payer MEDICARE, SELFPAY | END 2017-12-13 23:59 | LOC: WC 10:01 | PROVIDERS: Family Provider Family Medicine; PCP Family Medicine; Visit Provider Internal Medicine | DX: Z09 Encounter for follow-up examination after completed treatment for conditions other than malignant neoplasm (principal) ==

== ENCOUNTER → 2017-11-24 11:12 | Outpatient (CLI) | payer MEDICARE, SELFPAY ==
[2017-11-24 12:22] LABS: Hematocrit 36.4 % (37-47); Hemoglobin 10.9 g/dl (12.0-15.0); Mean Corp Hgb Conc 29.9 g/gl (32-36); Mean Corpuscular Hgb 29.5 pg (27.0-32.0); Mean Corpuscular Volume 98.4 fL (81-99); Mean Platelet Vol. 8.9 fl (6.2-12.0); Platelet Count 412 K/mm3 (150-450); RBC Distribution Width CV 16.6 % (11.6-14.6); White Blood Count 11.5 K/mm3 (4.4-11.0)
[2017-11-24 12:29] LABS: Scan Indicated on CBC? Y/N NO
[2017-11-24 12:30] LABS: Albumin, Serum 2.9 g/dL (3.2-5.0); BUN 23 mg/dL (7-18); BUN/Creat Ratio 19.8 RATIO (10-20); Calcium,Total 8.9 mg/dL (8.5-10.1); Chloride 106 mmol/L (98-107); Creatinine, Serum 1.16 mg/dL (0.55-1.02); EST Glomerular Filtration Rate 48 mL/min (>60); Est Glom Filt Rate - Afr Amer 58 mL/min (>60); Glucose 92 mg/dL (74-106); Phosphorus 2.6 mg/dL (2.5-4.9); Potassium 3.1 mmol/L (3.5-5.1); Sodium Level 145 mmol/L (136-145)
[2017-11-24 12:47] LABS: Microalbumin,Random Urine 8.1 mg/L (NO RANGE EST.)
[2017-11-25 09:01] LABS: Vitamin D,25 Hydroxy 53.3 ng/mL (29.95-100.01)
[2017-11-25 09:04] LABS: PTHIN 47.6 pg/mL (18.4-80.1)
== END ==
PROVIDERS: Family Provider Family Medicine; PCP Family Medicine; Visit Provider Internal Medicine Nephrology
DX: N18.3 Chronic kidney disease, stage 3 (moderate) (principal); D64.9 Anemia, unspecified; E55.9 Vitamin D deficiency, unspecified
CPT/HCPCS: 36415; 80069; 82043; 82306; 82570; 83970; 85027

== ENCOUNTER → 2018-01-12 16:32 | Outpatient (CLI) | payer MEDICARE, SELFPAY ==
[2018-01-12 17:27] LABS: Absolute Lymphocyte Count 0.73 X10^3/ul (0.83-4.51); Absolute Neutrophil Count 8.1 X10^3/uL (2.0-7.7); Basophil# 0.01 X10^3/uL; Basophil% 0.1 % (0-1); Eosinophil# 0.03 X10^3/uL; Eosinophils% 0.3 % (0-5); Hemoglobin 10.5 g/dl (12.0-15.0); Lymphocyte # 0.73 X10^3/ul (4.0); Lymphocyte % 7.7 % (19-41); Mean Corp Hgb Conc 29.2 g/gl (32-36); Mean Platelet Vol. 9.3 fl (6.2-12.0); Monocyte# 0.57 X10^3/uL; Monocyte% 6.1 % (0-10); Neutrophil # 8.07 X10^3/uL (2.7-7.7); Neutrophil % 85.7 % (47-70); POSITIVE COUNT NO; POSITIVE DIFFERENTIAL NO; POSITIVE MORPHOLOGY NO; Platelet Count 388 K/mm3 (150-450); RBC Distribution Width CV 15.6 % (11.6-14.6); RBC Distribution Width SD 54.4 fl (35.1-43.9); Red Blood Count 3.75 M/mm3 (4.2-5.4); White Blood Count 9.4 K/mm3 (4.4-11.0)
[2018-01-12 18:10] LABS: Homocysteine 9.1 umol/L (3.2-10.7)
[2018-01-12 18:37] LABS: Anion Gap 11 (5-15); BUN 30 mg/dL (7-18); BUN/Creat Ratio 18.9 RATIO (10-20); Chloride 107 mmol/L (98-107); Creatinine, Serum 1.59 mg/dL (0.55-1.02); EST Glomerular Filtration Rate 33 mL/min (>60); Est Glom Filt Rate - Afr Amer 40 mL/min (>60); Ferritin 39 ng/mL (8-252); Glucose 133 mg/dL (74-106); Iron 26 ug/dL (50-170); Iron Binding Capacity,Total 362 ug/dL (250-450); Potassium 3.3 mmol/L (3.5-5.1); Sodium Level 145 mmol/L (136-145)
[2018-01-13 09:23] LABS: Vitamin B12 497 pg/mL (211-911)
== END ==
PROVIDERS: Family Provider Family Medicine; PCP Family Medicine; Visit Provider Family Medicine
DX: N18.3 Chronic kidney disease, stage 3 (moderate) (principal); D64.9 Anemia, unspecified; E72.11 Homocystinuria
CPT/HCPCS: 80048; 82607; 82728; 82746; 83090; 83540; 83550; 85025

== ENCOUNTER → 2018-01-20 14:39 | Outpatient (CLI) | payer MEDICARE, SELFPAY ==
[2018-01-20 16:11] LABS: Anion Gap 10 (5-15); BUN 29 mg/dL (7-18); BUN/Creat Ratio 21.5 RATIO (10-20); Calcium,Total 8.9 mg/dL (8.5-10.1); Chloride 107 mmol/L (98-107); Creatinine, Serum 1.35 mg/dL (0.55-1.02); EST Glomerular Filtration Rate 40 mL/min (>60); Est Glom Filt Rate - Afr Amer 49 mL/min (>60); Glucose 135 mg/dL (74-106); Sodium Level 142 mmol/L (136-145)
== END ==
PROVIDERS: Family Provider Family Medicine; PCP Family Medicine; Visit Provider Family Medicine
DX: E61.1 Iron deficiency (principal)
CPT/HCPCS: 36415; 80048

== ENCOUNTER → 2018-01-26 12:05 | Outpatient (CLI) | payer MEDICARE, SELFPAY ==
[2018-01-26 13:12] LABS: Absolute Lymphocyte Count 0.88 X10^3/ul (0.83-4.51); Absolute Neutrophil Count 8.9 X10^3/uL (2.0-7.7); Basophil# 0.04 X10^3/uL; Basophil% 0.4 % (0-1); Eosinophil# 0.03 X10^3/uL; Eosinophils% 0.3 % (0-5); Hemoglobin 11.4 g/dl (12.0-15.0); Lymphocyte # 0.88 X10^3/ul (4.0); Lymphocyte % 8.3 % (19-41); Mean Corp Hgb Conc 29.2 g/gl (32-36); Mean Corpuscular Hgb 27.9 pg (27.0-32.0); Mean Corpuscular Volume 95.4 fL (81-99); Mean Platelet Vol. 9.6 fl (6.2-12.0); Monocyte# 0.75 X10^3/uL; Monocyte% 7.1 % (0-10); Neutrophil # 8.85 X10^3/uL (2.7-7.7); Neutrophil % 83.5 % (47-70); Platelet Count 386 K/mm3 (150-450); RBC Distribution Width CV 16.1 % (11.6-14.6); RBC Distribution Width SD 55.6 fl (35.1-43.9); Red Blood Count 4.09 M/mm3 (4.2-5.4); White Blood Count 10.6 K/mm3 (4.4-11.0)
[2018-01-26 13:15] LABS: POSITIVE COUNT NO; POSITIVE DIFFERENTIAL NO; POSITIVE MORPHOLOGY NO
[2018-01-26 13:23] LABS: ALB/GLOB Ratio 0.6 RATIO (0.9-2.4); AST(SGOT) 8 U/L (15-37); Alanine Aminotransfer ALT/SGPT 23 U/L (13-56); Albumin, Serum 2.8 g/dL (3.2-5.0); Alkaline Phosphatase 60 U/L (45-117); Anion Gap 11 (5-15); BUN 25 mg/dL (7-18); BUN/Creat Ratio 17.9 RATIO (10-20); Calcium,Total 8.8 mg/dL (8.5-10.1); Chloride 108 mmol/L (98-107); EST Glomerular Filtration Rate 39 mL/min (>60); Est Glom Filt Rate - Afr Amer 47 mL/min (>60); Globulin 4.5 g/dL (2.2-4.2); Glucose 109 mg/dL (74-106); Potassium 3.9 mmol/L (3.5-5.1); Protein, Total 7.3 g/dL (6.4-8.2); Sodium Level 142 mmol/L (136-145)
== END ==
PROVIDERS: Family Provider Family Medicine; PCP Family Medicine; Visit Provider Family Medicine
DX: R82.90 Unspecified abnormal findings in urine (principal); R10.9 Unspecified abdominal pain
CPT/HCPCS: 36415; 80053; 85025; 87077; 87086; 87088; 87186

== ENCOUNTER → 2018-01-26 13:16 | Outpatient (CLI) | payer MEDICARE, SELFPAY ==
--- NOTE | 2018-01-26 13:30 | CT_ITS ---
STUDY: CT ABDOMEN AND PELVIS WITH CONTRAST REASON FOR EXAM: Female, 77 years old. Abdominal pain and nausea. History of bowel perforation and abscess. Prior lumbar surgery and umbilical hernia repair. RADIATION DOSAGE (If Supplied By Facility): CTDIvol = ( 10.98 ) mGy, DLP = ( 907.65 ) mGycm TECHNIQUE: Transaxial images were obtained from the dome of the diaphragm to the symphysis pubis with oral contrast. 100 ml of Isovue 300 contrast was administered. Sagittal and coronal images were reconstructed. Individualized dose optimization techniques were used for this CT. COMPARISON: Prior abdomen and pelvic CT exam of October 08, 2017 FINDINGS: Mild posterior bibasilar atelectatic changes. The visualized portions of the heart are within normal limits. Normal liver. Normal gallbladder and extrahepatic biliary system. Normal spleen. Normal pancreas. Normal bilateral adrenal glands. 5 mm nonobstructing stone in the lower pole of the right kidney without hydronephrosis or ureteral stones. Multiple subcentimeter cysts of the left kidney without hydronephrosis or stones. Normal visualized stomach. Large duodenal diverticulum of the third duodenum. Normal small intestine. The proximal colon through the proximal sigmoid colon is unremarkable other than occasional diverticulosis. There continues to be an irregular multiloculated appearing presacral collection appearing directly connected to the distal sigmoid/rectosigmoid junction reduced in size but still containing extraluminal air. To the right of midline there is a well defined air-filled fistula to a distal small bowel loop, possibly 2 loops. The overall size of the main chronic abscess is 5.8 x 2.5 x 4.6 cm. The appendix is visualized and appears normal. There is diffuse atherosclerotic calcification of the abdominal aorta, without a demonstrated aneurysm. Normal inferior vena cava. Normal retroperitoneum. Nondistended urinary bladder. Normal abdominal wall. There are diffuse degenerative changes of the visualized lumbar spine with a mild dextroscoliosis. Status post posterior spinal fusion of L3 and L4 with stable appearance of the hardware. Status post right hip replacement. 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 Otherwise normal proximal colon and appendix. Otherwise unremarkable small bowel and stomach. Large duodenal diverticulum. No additional acute findings or changes. 5 mm nonobstructing stone in the lower pole of the right kidney. Subcentimeter cysts of the left kidney. Atherosclerotic changes of the aorta. Electronically Signed: Kanwal Gutierrez MD at 16:39 EDT , Service support ,
== END ==
PROVIDERS: Family Provider Family Medicine; PCP Family Medicine; Visit Provider Family Medicine
DX: K65.1 Peritoneal abscess (principal); R11.10 Vomiting, unspecified; R82.90 Unspecified abnormal findings in urine
CPT/HCPCS: 74177; Q9967

== ENCOUNTER → 2018-02-22 13:44 | Outpatient (CLI) | payer MEDICARE, SELFPAY ==
--- NOTE | 2018-02-22 13:45 | ECHOD_ITS ---
Procedure This was a 2D Doppler, Color Flow transthoracic echocardiogram. Exam performed in department. Left Ventricle Normal LV size. Left ventricular systolic function is normal. The estimated ejection fraction is 55 %. Stage 1 diastolic dysfunction. No regional wall motion abnormalities noted. Right Ventricle Normal RV size. Normal systolic function. Atria Normal left atrium. Normal right atrium. Mitral Valve Normal mitral valve. Tricuspid Valve Normal tricuspid valve. Mild (1+) tricuspid valve insufficiency. Pulmonary artery systolic pressure is 25 mmHg. Aortic Valve Trisinus/trileaflet aortic valve. Mild focal aortic valve calcification. Mild aortic stenosis. Pulmonic Valve Normal pulmonic valve. Great Vessels Normal aortic root. The pulmonary artery is normal size. Normal inferior vena cava. Pericardium/Pleural No pericardial effusion. MMode/2D Measurements & Calculations LVIDd: 4.2 cm IVSd: 1.0 cm LVOT diam: 2.0 cm LVIDs: 2.7 cm LVPWd: 1.0 cm LVOT area: 3.0 cm2 RVDd: 2.6 cm FS: 34.1 % Ao root diam: 2.5 cm LAV(MOD-bp): 43.6 ml LA A4 area: 16.4 cm2 LA dimension: 3.3 cm LAV(MOD-bp) Indexed: 25.9 ml/m2 LAV(MOD-sp2): 36.9 ml LAV(MOD-sp4): 41.5 ml RA A4 area: 8.8 cm2 Doppler Measurements & Calculations MV E max ruben: 97.7 cm/sec Lat Peak E' Ruben: 5.9 cm/sec Med Peak E' Ruben: 3.8 cm/sec MV A max ruben: 131.5 cm/sec E/E' lat: 16.5 E/E' med: 25.7 MV E/A: 0.74 Ao V2 max: 256.2 cm/sec AI max ruben: 366.8 cm/sec LV V1 max: 113.1 cm/sec Ao max P.3 mmHg AI max P.8 mmHg LV V1 max P.1 mmHg Ao V2 mean: 183.5 cm/sec AI dec slope: 317.4 cm/sec2 LV V1 mean P.9 mmHg Ao mean P.6 mmHg AI P1/2t: 338.5 msec LV V1 mean: 81.7 cm/sec Ao V2 VTI: 52.7 cm LV V1 VTI: 23.6 cm LISBETH(I,D): 1.3 cm2 LISBETH(V,D): 1.3 cm2 SV(LVOT): 70.8 ml PA V2 max: 103.9 cm/sec TR max ruben: 231.9 cm/sec TR max P.7 mmHg Interpretation Summary Normal LV size. Left ventricular systolic function is normal. The estimated ejection fraction is 55 %. Stage 1 diastolic dysfunction. Mild aortic stenosis. Ordering Physician: Jackson Uriostegui Referring Physician: Jared Romero Performed By: Roxana Mckeon RDCS, RVT
== END ==
PROVIDERS: Family Provider Family Medicine; PCP Family Medicine; Referring Provider Internal Medicine Cardiovascular Disease; Visit Provider Internal Medicine Cardiovascular Disease
DX: I25.10 Atherosclerotic heart disease of native coronary artery without angina pectoris (principal)
CPT/HCPCS: 93306

== ENCOUNTER → 2018-03-02 12:14 | Outpatient (CLI) | payer MEDICARE, SELFPAY ==
--- NOTE | 2018-03-02 12:19 | RAD_ITS ---
STUDY: X-RAY CHEST REASON FOR EXAM: Female, 77 years old. Recent fall, chest pain TECHNIQUE: PA and lateral views of the chest. COMPARISON: 08/24/2017 FINDINGS: The lungs are clear and expanded. There is no demonstrated pleural abnormality. There is mild cardiac enlargement. Normal mediastinum and kina. Normal visualized pulmonary arteries. Normal visualized aortic arch and descending thoracic aorta. There are diffuse degenerative changes of the visualized thoracic spine. There is degenerative osteoarthritis of the bilateral shoulders. There is no demonstrated abnormality of the visualized soft tissue structures of the upper abdomen. RAD/Chest PA and Lateral IMPRESSION: No acute cardiopulmonary disease Electronically Signed: Derrell Burciaga DO at 12:55 EDT Tel , Service support ,
--- NOTE | 2018-03-02 12:19 | RAD_ITS ---
STUDY: X-RAY - THORACIC SPINE REASON FOR EXAM: Female, 77 years old. recent fall, chest pain TECHNIQUE: 2 view(s) of the thoracic spine were obtained. COMPARISON: January 26, 2018 FINDINGS: Normal kyphosis of the thoracic spine. There is no substantial scoliosis. There is multilevel endplate spondylosis of the thoracic vertebrae. There is multilevel disc space narrowing of the thoracic spine. There is a new fracture at 12. The soft tissue structures are unremarkable. RAD/Thoracic Spine 2 Views IMPRESSION: Acute T12 fracture. Further evaluation with CT can be obtained. Electronically Signed: Mike Heard MD at 12:54 EDT Tel , Service support ,
--- NOTE | 2018-03-02 12:19 | RAD_ITS ---
STUDY: X-RAY - LUMBAR SPINE REASON FOR EXAM: Female, 77 years old. recent fall, back pain TECHNIQUE: 5 view(s) of the lumbar spine were obtained. COMPARISON: None FINDINGS: There is straightening of the normal lumbar lordosis. There is a new compression at T12. Again noted is a posterior fusion at L3/L4. There is multilevel endplate spondylosis of the lumbar vertebrae. There is multi-level degenerative disc disease with multi-level disc space narrowing. There is atherosclerotic calcification of the abdominal aorta. RAD/L/S Spine Min 4 Views IMPRESSION: Acute T12 fracture. Degenerative changes of the spine. Electronically Signed: Mike Heard MD at 12:59 EDT Tel , Service support ,
== END ==
PROVIDERS: Family Provider Family Medicine; PCP Family Medicine; Referring Provider Family Medicine; Visit Provider Family Medicine
DX: R07.9 Chest pain, unspecified (principal); M54.9 Dorsalgia, unspecified; W01.0XXA Fall on same level from slipping, tripping and stumbling without subsequent striking against object, initial encounter
CPT/HCPCS: 71046; 72070; 72110

== ENCOUNTER → 2018-03-15 13:44 | Outpatient (CLI) | payer MEDICARE, SELFPAY ==
[2018-03-15 15:54] LABS: Albumin, Serum 2.4 g/dL (3.2-5.0); BUN 32 mg/dL (7-18); BUN/Creat Ratio 18.5 RATIO (10-20); Calcium,Total 8.8 mg/dL (8.5-10.1); Chloride 105 mmol/L (98-107); Creatinine, Serum 1.73 mg/dL (0.55-1.02); EST Glomerular Filtration Rate 30 mL/min (>60); Est Glom Filt Rate - Afr Amer 37 mL/min (>60); Glucose 97 mg/dL (74-106); Phosphorus 2.6 mg/dL (2.5-4.9); Potassium 3.8 mmol/L (3.5-5.1); Sodium Level 144 mmol/L (136-145)
[2018-03-15 15:56] LABS: Hemoglobin 8.5 g/dl (12.0-15.0); Mean Corp Hgb Conc 28.3 g/gl (32-36); Mean Corpuscular Hgb 27.5 pg (27.0-32.0); Mean Corpuscular Volume 97.1 fL (81-99); Mean Platelet Vol. 9.2 fl (6.2-12.0); Platelet Count 393 K/mm3 (150-450); RBC Distribution Width CV 18.1 % (11.6-14.6); RBC Distribution Width SD 64.1 fl (35.1-43.9); Red Blood Count 3.09 M/mm3 (4.2-5.4); White Blood Count 11.2 K/mm3 (4.4-11.0)
[2018-03-15 15:58] LABS: Scan Indicated on CBC? Y/N NO
[2018-03-15 15:59] LABS: Protein, Urine (Random) 18.4 mg/dL (<11.9); Protein:Creat Ratio 143 mg/g CRE (0-200)
[2018-03-15 16:03] LABS: Vitamin D,25 Hydroxy 44.4 ng/mL (29.95-100.01)
[2018-03-15 16:25] LABS: PTHIN 60.2 pg/mL (18.4-80.1)
== END ==
PROVIDERS: Family Provider Family Medicine; PCP Family Medicine; Visit Provider Internal Medicine Nephrology
DX: N18.3 Chronic kidney disease, stage 3 (moderate) (principal); D64.9 Anemia, unspecified; E55.9 Vitamin D deficiency, unspecified
CPT/HCPCS: 36415; 80069; 82306; 82570; 83970; 84156; 85027

== ENCOUNTER → 2018-03-28 14:30 | Outpatient (CLI) | payer MEDICARE, SELFPAY ==
[2018-03-28 16:00] LABS: Anion Gap 10 (5-15); BUN 34 mg/dL (7-18); BUN/Creat Ratio 18.2 RATIO (10-20); Calcium,Total 8.7 mg/dL (8.5-10.1); Chloride 103 mmol/L (98-107); Creatinine, Serum 1.87 mg/dL (0.55-1.02); EST Glomerular Filtration Rate 28 mL/min (>60); Est Glom Filt Rate - Afr Amer 33 mL/min (>60); Ferritin 32 ng/mL (8-252); Glucose 106 mg/dL (74-106); Iron 30 ug/dL (50-170); Iron Binding Capacity,Total 311 ug/dL (250-450); Potassium 3.9 mmol/L (3.5-5.1); Sodium Level 144 mmol/L (136-145)
[2018-03-28 16:15] LABS: Absolute Lymphocyte Count 0.53 X10^3/ul (0.83-4.51); Absolute Neutrophil Count 9.8 X10^3/uL (2.0-7.7); Basophil# 0.01 X10^3/uL; Basophil% 0.1 % (0-1); Eosinophil# 0.07 X10^3/uL; Eosinophils% 0.6 % (0-5); Hemoglobin 8.4 g/dl (12.0-15.0); Lymphocyte # 0.53 X10^3/ul (4.0); Lymphocyte % 4.8 % (19-41); Mean Corpuscular Hgb 27.4 pg (27.0-32.0); Mean Corpuscular Volume 97.7 fL (81-99); Monocyte# 0.46 X10^3/uL; Monocyte% 4.2 % (0-10); Neutrophil # 9.82 X10^3/uL (2.7-7.7); Neutrophil % 89.9 % (47-70); Platelet Count 490 K/mm3 (150-450); RBC Distribution Width CV 17.6 % (11.6-14.6); RBC Distribution Width SD 60.1 fl (35.1-43.9); Red Blood Count 3.07 M/mm3 (4.2-5.4); White Blood Count 10.9 K/mm3 (4.4-11.0)
[2018-03-28 16:18] LABS: Differential Indicated SCAN CRITERIA MET; POSITIVE COUNT NO; POSITIVE DIFFERENTIAL YES; POSITIVE MORPHOLOGY NO
[2018-03-28 16:38] LABS: Platelet Estimate SLT INC (ADEQ)
[2018-03-28 16:39] LABS: Anisocytosis RARE; Hypochromasia 1+; Macrocytosis RARE
[2018-03-31 10:01] LABS: Pathologist Review Reviewed
== END ==
PROVIDERS: Family Provider Family Medicine; PCP Family Medicine; Visit Provider Family Medicine
DX: N18.3 Chronic kidney disease, stage 3 (moderate) (principal); D64.9 Anemia, unspecified; E61.1 Iron deficiency
CPT/HCPCS: 36415; 80048; 82728; 83540; 83550; 85025

== ENCOUNTER → 2018-04-07 13:28 | Outpatient (CLI) | payer MEDICARE, SELFPAY ==
[2018-04-07 13:35] VITALS: BP 120/71; PULSE 107; RESP 18; TEMP 36; O2SAT 99; BMI 30.8
== END ==
PROVIDERS: Family Provider Family Medicine; PCP Family Medicine; Referring Provider Internal Medicine Nephrology; Visit Provider Internal Medicine Nephrology
DX: N18.3 Chronic kidney disease, stage 3 (moderate) (principal); D50.9 Iron deficiency anemia, unspecified
CPT/HCPCS: 96365; J1756; A4216

== ENCOUNTER → 2018-04-10 13:03 | Outpatient (CLI) | payer MEDICARE, SELFPAY ==
[2018-04-07 13:35] VITALS: BMI 30.8
[2018-04-10 13:29] VITALS: BP 123/59; PULSE 88; RESP 18; TEMP 36.7; O2SAT 99; BMI 30.8
== END ==
PROVIDERS: Family Provider Family Medicine; PCP Family Medicine; Referring Provider Internal Medicine Nephrology; Visit Provider Internal Medicine Nephrology
DX: N18.3 Chronic kidney disease, stage 3 (moderate) (principal); D50.9 Iron deficiency anemia, unspecified
CPT/HCPCS: 96365; J1756; J7050; A4216

== ENCOUNTER → 2018-04-13 10:54 | Outpatient (CLI) | payer MEDICARE, SELFPAY ==
[2018-04-07 13:35] VITALS: BMI 30.8
[2018-04-10 13:29] VITALS: BMI 30.8
[2018-04-13 11:03] VITALS: BP 148/77; PULSE 100; RESP 16; TEMP 37.3; O2SAT 100; BMI 30.8
--- OUTSIDE RECORDS SUMMARY | 2018-06-08 13:13 | XMS RPT_ITS ---
:1940 Author Organization [facility] Support Name Relationship Address Phone MATTER (POA), ROSELYN Unavailable [address] + [place] [address] LUIS MCCULLOUGH Unavailable Unavailable + R Unavailable Unavailable Unavailable MATTER (POA), ROSELYN Unavailable [address] + [place] [address] LUIS MCCULLOUGH Unavailable Unavailable + R Unavailable Unavailable Unavailable MATTER (POA), ROSELYN Unavailable [address] + [place] [address] LUIS MCCULLOUGH Unavailable Unavailable + R Unavailable Unavailable Unavailable MATTER (POA), ROSELYN Unavailable [address] + [place] [address] LUIS MCCULLOUGH Unavailable Unavailable + R Unavailable Unavailable Unavailable MATTER (POA), ROSELYN Unavailable [address] + [place] [address] LUIS MCCULLOUGH Unavailable Unavailable + R Unavailable Unavailable Unavailable MATTER (POA), ROSELYN Unavailable [address] + [place] [address] LUIS MCCULLOUGH Unavailable Unavailable + R Unavailable Unavailable Unavailable MATTER (POA), ROSELYN Unavailable [address] + [place] [address] LUIS MCCULLOUGH Unavailable Unavailable + R Unavailable Unavailable Unavailable MATTER (POA), ROSELYN Unavailable [address] + [place] [address] LUIS MCCULLOUGH Unavailable Unavailable + R Unavailable Unavailable Unavailable LUIS MCCULLOUGH Unavailable Unavailable + R Unavailable Unavailable Unavailable JAMEL, LUIS Unavailable Unavailable + R Unavailable Unavailable Unavailable JAMEL, LUIS Unavailable 1 + [place] [address] R Unavailable Unavailable Unavailable JAMEL, LUIS Unavailable 1 + [place] [address] R Unavailable Unavailable Unavailable R Unavailable Unavailable Unavailable GERHARD, MARIE Unavailable [address] + [place] [address] JAMEL, LUIS Unavailable [address] + [address] [place], [place] R Unavailable Unavailable Unavailable GERHARD, MARIE Unavailable [address] + [place] [address] JAMEL, LUIS Unavailable [address] + [address] [place], [place] R Unavailable Unavailable Unavailable GERHARD, MARIE Unavailable [address] + [place] [address] JAMEL, LUIS Unavailable [address] + [address] [place], [place] R Unavailable Unavailable Unavailable GERHARD, MARIE Unavailable [address] + [place] [address] JAMEL, LUIS Unavailable [address] + [address] [place], [place] R Unavailable Unavailable Unavailable GERHARD, MARIE Unavailable [address] + [place] [address] JAMEL, LUIS Unavailable [address] + [address] [place], [place] R Unavailable Unavailable Unavailable GERHARD, MARIE Unavailable [address] + [place] [address] JAMEL, LUIS Unavailable [address] + [address] [place] R Unavailable Unavailable Unavailable GERHARD, MARIE Unavailable [address] + [place] [address] JAMEL, LUIS Unavailable [address] + [address] [place] R Unavailable Unavailable Unavailable GERHARD, MARIE Unavailable [address] + [place] [address] JAMEL, LUIS Unavailable [address] + [address] [place], [place] R Unavailable Unavailable Unavailable GERHARD, MARIE Unavailable [address] + [place] [address] JAMEL, LUIS Unavailable [address] + [address] [place] R Unavailable Unavailable Unavailable GERHARD, MARIE Unavailable [address] + [place] [address] JAMEL, LUIS Unavailable [address] + [address] [place], [place] R Unavailable Unavailable Unavailable GERHARD, MARIE Unavailable [address] + [place] [address] JAMEL, LUIS Unavailable [address] + [address] [place], [place] R Unavailable Unavailable Unavailable GERHARD, MARIE Unavailable [address] + [place] [address] JAMEL, LUIS Unavailable [address] + [address] [place] R Unavailable Unavailable Unavailable GERHARD, MARIE Unavailable [address] + [place] [address] JAMEL, LUIS Unavailable [address] + [address] [place] R Unavailable Unavailable Unavailable GERHARD, MARIE Unavailable [address] + [place] [address] JAMEL, LUIS Unavailable [address] + [address] [place] R Unavailable Unavailable Unavailable GERHARD, MARIE Unavailable [address] + [place] [address] JAMEL, LUIS Unavailable [address] + [address] [place] R Unavailable Unavailable Unavailable GERHARD, MARIE Unavailable [address] + [place] [address] JAMEL, LUIS Unavailable [address] + [address] [place] R Unavailable Unavailable Unavailable GERHARD, MARIE Unavailable [address] + [place] [address] JAMEL, LUIS Unavailable [address] + [address] [place] R Unavailable Unavailable Unavailable RICHIE HENNESSYLIE Unavailable [address] + [place] [address] JAMEL, LUIS Unavailable [address] + [address] [place] R Unavailable Unavailable Unavailable LUIS, JAMEL Unavailable [address] + [address] samir VEGA LESLIE Unavailable [address] + [place] [address] R Unavailable Unavailable Unavailable LUIS, JAMEL Unavailable [address] + [address] sam[place] VEGA LESLIE Unavailable [address] + [place] [address] R Unavailable Unavailable Unavailable LUIS, JAMEL Unavailable [address] + [address] sam[place] VEGA LESLIE Unavailable [address] + [place] [address] R Unavailable Unavailable Unavailable LUIS, JAMEL Unavailable [address] + [address] samir VEGA LESLIE Unavailable [address] + [place] [address] R Unavailable Unavailable Unavailable LUIS, JAMEL Unavailable [address] + [address] samir VEGA LESLIE Unavailable [address] + [place] [address] R Unavailable Unavailable Unavailable LUIS, JAMEL Unavailable [address] + [address] sam[place] VEGA MARIE Unavailable [address] + [place] [address] R Unavailable Unavailable Unavailable GERHARD, MARIE Unavailable [address] + [place] [address] JAMEL, LUIS Unavailable [address] + [address] [place] R Unavailable Unavailable Unavailable LUIS, JAMEL Unavailable [address] + [address] [place] ALMANZAR MARIE Unavailable [address] + [place] [address] R Unavailable Unavailable Unavailable LUIS, JAMEL Unavailable [address] + [address] [place], RICHIE PerezLIE Unavailable [address] + [place] [address] R Unavailable Unavailable Unavailable JamelLuisDamion Unavailable Unavailable + Luis, Jamel Unavailable [address] + [address] [place], [place] GERHARD MARIE Unavailable [address] + [place] [address] R Unavailable Unavailable Unavailable Luis, Jamel Unavailable [address] + [address] [place] al[place]zar LESLIE Unavailable [address] + [place] [address] R Unavailable Unavailable Unavailable GERHARD MARIE Unavailable [address] + [place] [address] JAMEL, LUIS Unavailable [address] + [address] [place], [place] R Unavailable Unavailable Unavailable RICHIE HENNESSYLIE Unavailable [address] + [place] [address] JAMEL, LUIS Unavailable [address] + [place], [place] R Unavailable Unavailable Unavailable Care Team Providers Name Role Phone Candy Rivas Attending Unavailable PROVIDER, UNKNOWN Referring Unavailable MALLORIE WHEELER Primary Care Unavailable ADELA ETIENNE Referring Unavailable ADELA ETIENNE Primary Care Unavailable ADELA ETIENNE Attending Unavailable ADELA ETIENNE Attending Unavailable ADELA ETIENNE Primary Care Unavailable ADELA ETIENNE Referring Unavailable ADELA ETIENNE Attending Unavailable ADELA ETIENNE Primary Care Unavailable ADELA ETIENNE Attending Unavailable ADELA ETIENEN Primary Care Unavailable CANDY RIVAS Attending Unavailable CANDY RIVAS Referring Unavailable ADELA ETIENNE Primary Care Unavailable ADELA ETIENNE Primary Care Unavailable Artur Flores Attending Unavailable ADELA ETIENNE Primary Care Unavailable Julieth Garcia Attending Unavailable Zoraida Friend Attending Unavailable Ronna Zoraida Referring Unavailable ADELA ETIENNE Primary Care Unavailable ADELA ETIENNE Primary Care Unavailable Ashelfah, Ghasem Admitting Unavailable Farhad, Mansoor Attending Unavailable Ashelfah, Ghasem Admitting Unavailable Ashelfah, Ghasem Attending Unavailable ADELA ETIENNE Primary Care Unavailable Ashelfah, Ghasem Consulting Unavailable Ashelfah, Ghasem Admitting Unavailable Farhad, Mansoor Attending Unavailable ADELA ETIENNE Primary Care Unavailable Farhad, Mansoor Consulting Unavailable Ashelfah, Ghasem Admitting Unavailable ADELA ETIENNE Primary Care Unavailable Farhad, Mansoor Consulting Unavailable Farhad, Mansoor Attending Unavailable Ashelfah, Ghasem Admitting Unavailable ADELA ETIENNE Primary Care Unavailable Farhad, Mansoor Consulting Unavailable Farhad, Mansoor Attending Unavailable Jordan, Alejo Chi Admitting Unavailable Jordan, Alejo Chi Attending Unavailable Jordan, Alejo Chi Referring Unavailable ADELA ETIENNE Primary Care Unavailable Jordan, Alejo Chi Attending Unavailable Jordan, Alejo Chi Referring Unavailable SchJared valdez E Primary Care Unavailable SchJared valdez E Primary Care Unavailable Cali Bucio Attending Unavailable Jared Romero Primary Care Unavailable Ronn Marrero Attending Unavailable Jared Romero E Primary Care Unavailable Paloma Ansted Attending Unavailable Jordan, Alejo Chi Admitting Unavailable Jordan, Alejo Chi Attending Unavailable Jared Romero E Primary Care Unavailable Akira Cruz [employer] Consulting Unavailable Jared Romero Attending Unavailable Jared Romero E Referring Unavailable SchJared valdez E Primary Care Unavailable Jared Romero Attending Unavailable SchJared valdez E Referring Unavailable SchJared valdez E Primary Care Unavailable Garrett Jordan Attending Unavailable SchinJared tamayo E Primary Care Unavailable Nathalie Early Attending Unavailable SchinnerJared E Primary Care Unavailable Garrett Jordan Attending Unavailable SchinJared tamayo E Primary Care Unavailable Julieth Garcia Attending Unavailable SchinnerJared E Primary Care Unavailable SchinJared tamayo E Attending Unavailable SchinJared tamayo E Primary Care Unavailable SchinJared tamayo E Attending Unavailable SchinnerJared E Primary Care Unavailable SchJared valdez E Attending Unavailable SchinJared tamayo E Primary Care Unavailable SchJared valdez E Attending Unavailable SchJared valdez E Referring Unavailable SchinJared tamayo E Primary Care Unavailable Brianna Sidhu Attending Unavailable Brianna Sidhu Attending Unavailable Moody, Jackson Attending Unavailable Schinner, Jared E Referring Unavailable Obey Webb Attending Unavailable Schinner, Jared E Referring Unavailable Moody, Bethel Attending Unavailable Moody, Jackson Referring Unavailable Schinner, Jared E Primary Care Unavailable Moody, Bethel Attending Unavailable Moody, Jackson Referring Unavailable Schinner, Jared E Primary Care Unavailable Moody, [place] Consulting Unavailable Schinner, Jared E Attending Unavailable Schinner, Jared E Referring Unavailable Schinner, Jared E Primary Care Unavailable Sharath, Jayaprakash Attending Unavailable Schinner, Jared E Primary Care Unavailable Schinner, Jared E Attending Unavailable Schinner, Jared E Primary Care Unavailable Sharath, Jayaprakash Attending Unavailable Sharath, Jayaprakash Referring Unavailable Schinner, Jared E Primary Care Unavailable Sharath, Jayaprakash Attending Unavailable Sharath, Jayaprakash Referring Unavailable Schinner, Jared E Primary Care Unavailable Sharath, Jayaprakash Attending Unavailable Sharath, Jayaprakash Referring Unavailable Schinner, Jared E Primary Care Unavailable Sharath, Jayaprakash Attending Unavailable Sharath, Jayaprakash Referring Unavailable Schinner, Jared E Primary Care Unavailable Sharath, Jayaprakash Attending Unavailable Sharath, Jayaprakash Referring Unavailable Schinner, Jared E Primary Care Unavailable KENDRICK MARK Attending Unavailable ARCHINAL, MALLORIE Referring Unavailable KRISTINE ANTUNEZ Consulting Unavailable DENIS REYNA Attending Unavailable MANOHAR GALAN Admitting Unavailable ERIKA MCKEON Attending Unavailable JJ HOWELL Consulting Unavailable PHONG RUSH Referring Unavailable PHONG RUSH Admitting Unavailable PHONG RUSH Attending Unavailable LORY GARCES Referring Unavailable ELEUTERIO BRAY Attending Unavailable PHONG RUSH Admitting Unavailable PHONG RUSH Attending Unavailable PHONG RUSH Admitting Unavailable PHONG RUSH Attending Unavailable PHONG RUSH Admitting Unavailable PHONG RUSH Attending Unavailable ARCHINAL, KHRIS Referring Unavailable ARCHINAL, KHRIS Primary Care Unavailable KENDRICK MARK Attending Unavailable ARCHINAL, KHRIS Referring Unavailable ARCHINAL, KHRIS Primary Care Unavailable KENDRICK MARK Attending Unavailable ARCHINAL, KHRIS Primary Care Unavailable PHONG RUSH Attending Unavailable PHONG RUSH Admitting Unavailable ARCHINAL, KHRIS Primary Care Unavailable VICTOR MANUEL, PHONG R Admitting Unavailable VICTOR MANUEL, PHONG R Attending Unavailable ARCHINAL, KHRIS Primary Care Unavailable VICTOR MANUEL, PHONG R Admitting Unavailable VICTOR MANUEL, PHONG R Attending Unavailable ARCHINAL, KHRIS Primary Care Unavailable VICTOR MANUEL, PHONG R Admitting Unavailable VICTOR MANUEL, PHONG R Attending Unavailable ARCHINAL, KHRIS Primary Care Unavailable LORY GARCES Referring Unavailable ARCHINAL, KHRIS Primary Care Unavailable VICTOR MANUEL, PHONG R Referring Unavailable ERIKA MCKEON Attending Unavailable ARCHINAL, KHRIS Primary Care Unavailable MANOHAR GALAN Admitting Unavailable DAR SORENSEN Consulting Unavailable DUMFORD III, ZHANE Consulting Unavailable EDIE, ANTIONE Consulting Unavailable JJ HOWELL Consulting Unavailable ARCHINAL, KHRIS Primary Care Unavailable ARCHINAL, KHRIS Referring Unavailable KENDRICK MARK Attending Unavailable ANTIONE IRIZARRY Attending Unavailable ANTIONE IRIZARRY Referring Unavailable ANTIONE IRIZARRY Referring Unavailable ANTIONE IRIZARRY Attending Unavailable ARCHINAL, KHRIS Primary Care Unavailable ARCHINAL, KHRIS Referring Unavailable ARCHINAL, KHRIS Primary Care Unavailable KENDRICK MARK Attending Unavailable EDNIS REYNA Admitting Unavailable DENIS REYNA Attending Unavailable KRISTINE ANTUNEZ Consulting Unavailable ARCHINAL, KHRIS Primary Care Unavailable PROBLEMS PROBLEMS DATE TYPE CONDITION / CODE ATTENDING STATUS SOURCE Unknown W01.0XXA - Fall on same Jared Romero Active [place] 8 level from [facility] without subsequent Repository striking against object, initial encounter / W01.0XXA(ICD-10) Unknown 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, 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 / Repository I25.10(ICD-10) Unknown I26.99 - Other pulmonary Moody, Jackson Active [place] 8 embolism without acute Community cor pulmonale / Hospital I26.99(ICD-10) Repository Unknown E78.00 - Pure Moody, Jackson Active [place] 8 hypercholesterolemia, Community unspecified / Hospital E78.00(ICD-10) Repository Unknown E78.0 - Pure Moody, Bethel Active [place] 8 hypercholesterolemia / Community E78.0(ICD-10) Hospital Repository Active Abscess of intestine / PHONG RUSH Active [place] 8 K63.0(ICD-10) Clinic Other [place] Repository Unknown N18.3 - Chronic kidney Sharath, Active [place] 8 disease, stage 3 [facility] (moderate) / Hospital N18.3(ICD-10) Repository Unknown E55.9 - Vitamin D Sharath, Active [place] 8 deficiency, unspecified [facility] / E55.9(ICD-10) Hospital Repository Unknown D64.9 - Anemia, Sharath, Active [place] 8 unspecified / [facility] D64.9(ICD-10) Hospital Repository Unknown M79.81 - Nontraumatic Jared Romero Active [place] 8 hematoma of soft tissue E Community / M79.81(ICD-10) Hospital Repository Active Female pelvic PHONG RUSH Active [place] 8 inflammatory disease, Clinic Other unspecified / [place] N73.9(ICD-10) Repository Active Contusion of left lower ERIKA MCKEON Active [place] 8 leg, initial encounter / Clinic Other S80.12XA(ICD-10) [place] Repository Active Peritoneal abscess / ERIKA MCKEON [facility] 8 K65.1(ICD-10) Clinic Other [place] Repository Active Acute embolism and ERIKA MCKEON Active [place] [address] thrombosis of Clinic Other unspecified deep veins [place] of unspecified lower Repository extremity / I82.409(ICD-10) Active Other pulmonary embolism ERIKA MCKEON Active [place] [address] without acute cor Clinic Other pulmonale / [place] I26.99(ICD-10) Repository Admitting Unknown / UNK(Unknown) ERIKA MCKEON Active [address] [facility] Repository Unknown S80.12XA - Contusion of Jwayyed, Active [place] 8 left lower leg, initial [facility] encounter / Hospital S80.12XA(ICD-10) Repository Unknown M62.81 - Muscle weakness Jordan, Alejo Chi Active [place] 8 (generalized) / Community M62.81(ICD-10) Hospital Repository Unknown R53.81 - Other malaise / Jordan, Alejo Chi Active [place] 8 R53.81(ICD-10) [facility] Repository Unknown I82.4Z2 - Acute embolism Mansoor Llamas Active [place] 8 and thrombosis of Community unspecified deep veins Hospital of left distal lower Repository extremity / I82.4Z2(ICD-10) Active Perforation of intestine DENIS REYNA Active [place] 8 (nontraumatic) / Clinic Other K63.1(ICD-10) [place] Repository Active Unknown / UNK(Unknown) KENDRICK MARK Active [place] 8 [facility] Other [place] Repository Unknown Z79.01 - snf ADELA ETIENNE Active [place] 8 (current) use of [facility] anticoagulants / Hospital Z79.01(ICD-10) Repository Unknown E78.5 - Hyperlipidemia, ADELA ETIENNE Active [place] 7 unspecified / Community E78.5(ICD-10) Hospital Repository Unknown R73.03 - Prediabetes / ADELA ETIENNE Active [place] 7 R73.03(ICD-10) [facility] Repository PROCEDURES PROCEDURES No Procedure Records FoundRESULTS RESULTS BASIC METABOLIC Collected: 03/28/2018 Status: F Source: [place] PROFILE (BMP) 2:31 PM [facility] REPOSITORY TYPE CODE TESTS RESULT OUT OF RANGE REFERENCE UNITS LAB L501.0100 74-106 mg/dL Normal GLU 106 Result Comment: Fasting Glucose result from 100 to 125 mg/dL suggests IMPAIRED HOMEOSTASIS per A.D.A. criteria. Please note revised GLUCOSE reference range effective 2017. LAB L501.1000 7-18 mg/dL High BUN 34 LAB L501.1100 0.55-1.02 mg/dL High CREAT,SERUM 1.87 Result Comment: The validity of the calculated GFR AND GFRAA in patients over 70 years has not been determined. Clinical correlation is essential. LAB L501.1110 >60 mL/min Low EST GFR 28 Result Comment: Non- GFR Calc LAB L501.1115 >60 mL/min Low EST GFR - AA 33 Result Comment: GFR Calc LAB L501.1300 10-20 RATIO Normal BUN/CRE 18.2 LAB L501.2200 8.5-10.1 mg/dL CA Normal 8.7 LAB L501.5300 136-145 mmol/L NA Normal 144 LAB L501.5600 3.5-5.1 mmol/L K Normal 3.9 LAB L501.5900 98-107 mmol/L CL Normal 103 LAB L501.6100 21.0-32.0 mmol/L Normal CO2 31.0 LAB L501.6200 5-15 Normal GAP 10 Performed By: #### L500.2500, L503.6075, L503.6150, L503.6550, L100.0100 #### [facility] [address] [place], [address] IRON BINDING Collected: 03/28/2018 Status: F Source: [facility],TOTAL 2:31 PM [facility] REPOSITORY TYPE CODE TESTS RESULT OUT OF RANGE REFERENCE UNITS LAB L503.6075 250-450 ug/dL Normal TIBC 311 Performed By: #### L500.2500, L503.6075, L503.6150, L503.6550, L100.0100 #### [facility] [address] [place], [address] IRON Collected: 03/28/2018 Status: F Source: HOOD 2:31 PM [facility] REPOSITORY TYPE CODE TESTS RESULT OUT OF RANGE REFERENCE UNITS LAB L503.6150 50-170 ug/dL Low IRON 30 Performed By: #### L500.2500, L503.6075, L503.6150, L503.6550, L100.0100 #### [facility] [address] [place], [address] FERRITIN Collected: 03/28/2018 Status: F Source: [place] 2:31 PM [facility] REPOSITORY TYPE CODE TESTS RESULT OUT OF RANGE REFERENCE UNITS LAB L503.6550 8-252 ng/mL Normal FERRITIN 32 Performed By: #### L500.2500, L503.6075, L503.6150, L503.6550, L100.0100 #### [facility] [address] [place], [address] CBC W/DIFF, AUTOMATED Collected: 03/28/2018 Status: C Source: HOOD 2:31 PM [facility] REPOSITORY Order Comment: PLEASE DO A SMEAR FOR PATH REVIEW USE SPECIMEN NUMBER [id number] 03/28/18 PER TYPE CODE TESTS RESULT OUT OF RANGE REFERENCE UNITS LAB L100.1000 4.4-11.0 K/mm3 Normal WBC 10.9 LAB L100.1200 4.2-5.4 M/mm3 Low RBC 3.07 LAB L100.1300 12.0-15.0 g/dl Low HGB 8.4 LAB L100.1400 37-47 % Low HCT 30.0 LAB L100.1500 81-99 fL Normal MCV 97.7 LAB L100.1600 27.0-32.0 pg Normal MCH 27.4 LAB L100.1700 32-36 g/gl Low MCHC 28.0 LAB L100.1810 11.6-14.6 % High RDW CV 17.6 LAB L100.1820 35.1-43.9 fl High RDW SD 60.1 LAB L100.1900 150-450 K/mm3 High PLT 490 LAB L100.2000 6.2-12.0 fl Normal MPV 9.0 LAB L100.2100 47-70 % High NEUT% 89.9 LAB L100.2200 19-41 % Low LY% 4.8 LAB L100.2300 0-10 % Normal MONO% 4.2 LAB L100.2400 0-5 % Normal EO% 0.6 LAB L100.2500 0-1 % Normal BASO% 0.1 LAB L100.2550 0.0-0.9 % Normal IM GRAN % 0.400 Result Comment: IG% - Immature Granulocytes (promyelocytes, myelocytes and metamyelocytes) > 1% indicates that a LEFT SHIFT is Present. LAB L100.2620 2.0-7.7 X10 3/uL High Absolute Neut 9.8 LAB L100.2720 0.83-4.51 X10 3/ul Low Absolute Lymph 0.53 LAB L100.4500 Normal SMEAR COMMENT SEE COMMENT Result Comment: LYMPHOPENIA NOTED LAB L100.5500 ADEQ PLT EST Normal SLT INC LAB L100.7300 ANISO Normal RARE LAB L100.7600 HYPOCHROMASIA 1+ Normal LAB L100.7800 MACROCYTE Normal RARE LAB L100.9900 PATH REV Normal Reviewed Result Comment: Normocytic anemia. Thrombocytosis. Clinical correlation necessary. Sam Serrato M.D. 03/31/18 Pathologist comment added AMENDED REPORT 03/31/18 1000 PATH REV previously reported as: September alta Performed By: #### L500.2500, L503.6075, L503.6150, L503.6550, L100.0100 #### [facility] [address] [place], [place], [address] RENAL PROFILE Collected: 03/15/2018 Status: F Source: [place] 1:45 PM [facility] REPOSITORY TYPE CODE TESTS RESULT OUT OF RANGE REFERENCE UNITS LAB L501.0100 74-106 mg/dL Normal GLU 97 Result Comment: Please note revised GLUCOSE reference range effective 2017. LAB L501.1000 7-18 mg/dL High BUN 32 LAB L501.1100 0.55-1.02 mg/dL High CREAT,SERUM 1.73 Result Comment: The validity of the calculated GFR AND GFRAA in patients over 70 years has not been determined. Clinical correlation is essential. LAB L501.1110 >60 mL/min Low EST GFR 30 Result Comment: Non- GFR Calc LAB L501.1115 >60 mL/min Low EST GFR - AA 37 Result Comment: GFR Calc LAB L501.1300 10-20 RATIO Normal BUN/CRE 18.5 LAB L501.1800 3.2-5.0 g/dL Low ALB 2.4 LAB L501.2200 8.5-10.1 mg/dL CA Normal 8.8 LAB L501.2300 2.5-4.9 mg/dL Normal PHOS 2.6 LAB L501.5300 136-145 mmol/L NA Normal 144 LAB L501.5600 3.5-5.1 mmol/L K Normal 3.8 LAB L501.5900 98-107 mmol/L CL Normal 105 LAB L501.6100 21.0-32.0 mmol/L Normal CO2 26.0 Performed By: #### L500.3600 #### [facility] [address] [place], [address] CBC-COMPLETE BLOOD CNT Collected: 03/15/2018 Status: F Source: [place] NO DIFF 1:45 PM [facility] REPOSITORY TYPE CODE TESTS RESULT OUT OF RANGE REFERENCE UNITS LAB L100.1000 4.4-11.0 K/mm3 High WBC 11.2 LAB L100.1200 4.2-5.4 M/mm3 Low RBC 3.09 LAB L100.1300 12.0-15.0 g/dl Low HGB 8.5 LAB L100.1400 37-47 % Low HCT 30.0 LAB L100.1500 81-99 fL Normal MCV 97.1 LAB L100.1600 27.0-32.0 pg Normal MCH 27.5 LAB L100.1700 32-36 g/gl Low MCHC 28.3 LAB L100.1810 11.6-14.6 % High RDW CV 18.1 LAB L100.1820 35.1-43.9 fl High RDW SD 64.1 LAB L100.1900 150-450 K/mm3 Normal PLT 393 LAB L100.2000 6.2-12.0 fl Normal MPV 9.2 Performed By: #### L100.0500 #### [facility] [address] [place], [place], [address] PROTEIN+CREATININE Collected: Status: F Source: [place] RATIO,URINE 03/15/2018 1:45 PM [facility] REPOSITORY TYPE CODE TESTS RESULT OUT OF RANGE REFERENCE UNITS LAB L501.1200 NO RANGE EST. mg/dL Normal UR CREAT 129.00 LAB L501.1930 <11.9 mg/dL High 18.4 PROTEIN,UR.R AN. LAB L501.1940 0-200 mg/g CRE Normal PROT:CRE 143 RATIO Performed By: #### L501.0900 #### [facility] [address] [place], [place], [id number] VITAMIN D,25 HYDROXY Collected: 03/15/2018 Status: F Source: ANNMARIE 1:45 PM [facility] REPOSITORY TYPE CODE TESTS RESULT OUT OF RANGE REFERENCE UNITS LAB L506.1000 29.95-100.01 ng/mL Normal Vitamin D 44.4 25-OH Result Comment: Vitamin D 25(OH) Status Range Deficiency <20 ng/mL (50nmol/L) Insuffciency 20 - 30 ng/mL (50 - 75 nmol/L) Sufficiency 30 - 100 ng/mL (75 - 250 nmol/L) Toxicity >100 ng/mL (>250 nmol/L) Performed By: #### L506.1000 #### [facility] [address] [place], [address] PTHIN Collected: 03/15/2018 Status: F Source: HOOD 1:45 PM [facility] REPOSITORY TYPE CODE TESTS RESULT OUT OF RANGE REFERENCE UNITS LAB L509.1000 18.4-80.1 pg/mL Normal PTHIN 60.2 Performed By: #### L509.1000 #### [facility] [address] [place] [place], [address] CNCO Observed: 03/03/2018 Status: COMPLETED Source: ARVIN 12:00 AM CLINIC OTHER CAMPUS REPOSITORY Letter Text Kendrick Mark MD Cardiac, Thoracic [facility] [place], [place] [address] [email or web address] Dia Mccullough Page 1 of March 03, 2018 Dia Mccullough [address] [facility] [address] [facility] [id number] 1940 Dear Dia Mccullough, We missed seeing you for your scheduled appointment with Dr. Mark on 02/24/18. Our goal is to offer the best possible care to our patients, so we are concerned when you are unable to keep a scheduled appointment. Please call us at [phone] so that we can reschedule your appointment for a day and time that will work for you. If you find it difficult to keep your appointment, please notify our office at least 24 hours in advance so that we may reschedule your appointment. We are glad that you have chosen [facility] for your cardiovascular needs and hope to continue serving you in the future. Sincerely, Kendrick Mark MD (Signed electronically to expedite mailing) THORACIC SPINE 2 Observed: 03/02/2018 Status: F Source: ANNMARIE VIEWS 12:21 PM [facility] REPOSITORY [facility] Imaging Services [address] [place] [address] Thoracic Spine 2 Views MR#: [id number] Acct: [id number] Name: DIA MCCULLOUGH #: [id number] : 1940 F 77 From: Mike Heard PCP: Jared Romero MD Status: REG CLI Study: Thoracic Spine 2 Views Date of Exam: 03/02/18 Exam# [id number] Ordering Dr: Jared Romero MD STUDY: X-RAY - THORACIC SPINE REASON FOR EXAM: Female, 77 years old. recent fall, chest pain TECHNIQUE: 2 view(s) of the thoracic spine were obtained. COMPARISON: January 26, 2018 FINDINGS: Normal kyphosis of the thoracic spine. There is no substantial scoliosis. There is multilevel endplate spondylosis of the thoracic vertebrae. There is multilevel disc space narrowing of the thoracic spine. There is a new fracture at 12. The soft tissue structures are unremarkable. RAD/Thoracic Spine 2 Views IMPRESSION: Acute T12 fracture. Further evaluation with CT can be obtained. Electronically Signed: Mike Heard MD at 12:54 EDT Tel , Service support , CC: Jared Romero MD Fruit Pitter: Signed CHEST PA AND LATERAL Observed: 03/02/2018 Status: F Source: HOOD 12:21 PM [facility] REPOSITORY [facility] Imaging Services [address] [place] [address] Chest PA and Lateral MR#: [id number] Acct: [id number] Name: DIA MCCULLOUGH Rep #: [id number] : 1940 F 77 From: Derrell Burciaga DO PCP: Jared Romero MD Status: REG CLI Study: Chest PA and Lateral Date of Exam: 03/02/18 Exam# [id number] Ordering Dr: Jared Romero MD STUDY: X-RAY CHEST REASON FOR EXAM: Female, 77 years old. Recent fall, chest pain TECHNIQUE: PA and lateral views of the chest. COMPARISON: 08/24/2017 FINDINGS: The lungs are clear and expanded. There is no demonstrated pleural abnormality. There is mild cardiac enlargement. Normal mediastinum and kina. Normal visualized pulmonary arteries. Normal visualized aortic arch and descending thoracic aorta. There are diffuse degenerative changes of the visualized thoracic spine. There is degenerative osteoarthritis of the bilateral shoulders. There is no demonstrated abnormality of the visualized soft tissue structures of the upper abdomen. RAD/Chest PA and Lateral IMPRESSION: No acute cardiopulmonary disease Electronically Signed: Derrell Burciaga DO at 12:55 EDT Tel , Service support , CC: Jared Romero MD Fruit Pitter: Signed L/S SPINE MIN 4 Observed: 03/02/2018 Status: F Source: HOOD VIEWS 12:21 PM [facility] REPOSITORY [facility] Imaging Services [address] [place] [address] L/S Spine Min 4 Views MR#: [id number] Acct: [id number] Name: DIA MCCULLOUGH Rep #: [id number] : 1940 F 77 From: Mike Heard PCP: Jared Romero MD Status: REG CLI Study: L/S Spine Min 4 Views Date of Exam: 03/02/18 Exam# [id number] Ordering Dr: Jared Romero MD STUDY: X-RAY - LUMBAR SPINE REASON FOR EXAM: Female, 77 years old. recent fall, back pain TECHNIQUE: 5 view(s) of the lumbar spine were obtained. COMPARISON: None FINDINGS: There is straightening of the normal lumbar lordosis. There is a new compression at T12. Again noted is a posterior fusion at L3/L4. There is multilevel endplate spondylosis of the lumbar vertebrae. There is multi-level degenerative disc disease with multi-level disc space narrowing. There is atherosclerotic calcification of the abdominal aorta. RAD/L/S Spine Min 4 Views IMPRESSION: Acute T12 fracture. Degenerative changes of the spine. Electronically Signed: Mike Heard MD at 12:59 EDT Tel , Service support , CC: Jared Romero MD Fruit Pitter: Signed ECHOCARDIOGRAM COMPLETE Observed: 02/23/2018 Status: F Source: HOOD 7:22 AM [facility] REPOSITORY [facility] Cardiovascular Services [address] [place] [address] Echo Complete 02/22/18 1406 MR#: [id number] Acct: [id number] Name: DIA MCCULLOUGH Rep #: [id number] : 1940 77 From: Jackson Uriostegui MD Attending Dr: Jackson Uriostegui MD Status: REG CLI Ordering Dr: Jackson Uriostegui MD Date: 02/22/18 Location: [facility] Sex: F C Admitted: Procedure This was a 2D Doppler, Color Flow transthoracic echocardiogram. Exam performed in department. Left Ventricle Normal LV size. Left ventricular systolic function is normal. The estimated ejection fraction is 55 %. Stage 1 diastolic dysfunction. No regional wall motion abnormalities noted. Right Ventricle Normal RV size. Normal systolic function. Atria Normal left atrium. Normal right atrium. Mitral Valve Normal mitral valve. Tricuspid Valve Normal tricuspid valve. Mild (1+) tricuspid valve insufficiency. Pulmonary artery systolic pressure is 25 mmHg. Aortic Valve Trisinus/trileaflet aortic valve. Mild focal aortic valve calcification. Mild aortic stenosis. Pulmonic Valve Normal pulmonic valve. Great Vessels Normal aortic root. The pulmonary artery is normal size. Normal inferior vena cava. Pericardium/Pleural No pericardial effusion. MMode/2D Measurements AND Calculations LVIDd: 4.2 cm IVSd: 1.0 cm LVOT diam: 2.0 cm LVIDs: 2.7 cm LVPWd: 1.0 cm LVOT area: 3.0 cm2 RVDd: 2.6 cm FS: 34.1 % Ao root diam: 2.5 cm LAV(MOD-bp): 43.6 ml LA A4 area: 16.4 cm2 LA dimension: 3.3 cm LAV(MOD-bp) Indexed: 25.9 ml/m2 LAV(MOD-sp2): 36.9 ml LAV(MOD-sp4): 41.5 ml RA A4 area: 8.8 cm2 Doppler Measurements AND Calculations MV E max wilfredo: 97.7 cm/sec Lat Peak E' Wilfredo: 5.9 cm/sec Med Peak E' Wilfredo: 3.8 cm/sec MV A max wilfredo: 131.5 cm/sec E/E' lat: 16.5 E/E' med: 25.7 MV E/A: 0.74 Ao V2 max: 256.2 cm/sec AI max wilfredo: 366.8 cm/sec LV V1 max: 113.1 cm/sec Ao max P.3 mmHg AI max P.8 mmHg LV V1 max P.1 mmHg Ao V2 mean: 183.5 cm/sec AI dec slope: 317.4 cm/sec2 LV V1 mean P.9 mmHg Ao mean P.6 mmHg AI P1/2t: 338.5 msec LV V1 mean: 81.7 cm/sec Ao V2 VTI: 52.7 cm LV V1 VTI: 23.6 cm LISBETH(I,D): 1.3 cm2 LISBETH(V,D): 1.3 cm2 SV(LVOT): 70.8 ml PA V2 max: 103.9 cm/sec TR max wilfredo: 231.9 cm/sec TR max P.7 mmHg Interpretation Summary Normal LV size. Left ventricular systolic function is normal. The estimated ejection fraction is 55 %. Stage 1 diastolic dysfunction. Mild aortic stenosis. Ordering Physician: Jackson Uriostegui Referring Physician: Jared Romero Performed By: Roxana Mckeon, RDCS, RVT 02/23/18 0722 Date Jackson Uriostegui MD CC: Jackson Uriostegui MD; Jared Romero MD Date Dictated: 02/22/18 1406 Date Transcribed: 02/23/18 0722 Fruit Pitter: Signed URGENT CARE VISIT Observed: 02/16/2018 Status: F Source: ANNMARIE REPORT 6:00 PM [facility] REPOSITORY [facility] [address] [place] [address] 6 [place] [address] OFFICE VISIT Date of Service: 02/16/18 MR#: [id number] Acct: [id number] Name: DIA MCCULLOUGH Rep #: [id number] : 1940 Provider: Obey DUNCAN Age/Sex: 77/F Location: [facility] Status: Signed Intake Vital Signs02/16/18 Height 5 ft 02/16/18 Weight: 156 lb 02/16/18 Body Mass Index (BMI) 30.4 02/16/18 Blood Pressure 114/72 Intake Visit Reasons: LACERATION ON LEG Chief Complaint: Initial visit. Allergies Iodine and Iodide Containing Produc Allergy (Verified 02/16/18 17:48) Unknown amoxicillin trihydrate [From Augmentin] Adverse Reaction (Verified 02/16/18 17:48) Upset Stomach diclofenac sodium [From Arthrotec] Adverse Reaction (Verified 02/16/18 17:48) Upset Stomach doxycycline Adverse Reaction (Verified 02/16/18 17:48) Upset Stomach erythromycin base Adverse Reaction (Verified 02/16/18 17:48) Upset Stomach etodolac [From Lodine] Adverse Reaction (Verified 02/16/18 17:48) Upset Stomach flurbiprofen [From Ansaid] Adverse Reaction (Verified 02/16/18 17:48) Upset Stomach misoprostol [From Arthrotec] Adverse Reaction (Verified 02/16/18 17:48) Upset Stomach NSAIDS (Non-Steroidal Anti-Inflamma Adverse Reaction (Verified 02/16/18 17:48) Other potassium clavulanate [From Augmentin] Adverse Reaction (Verified 02/16/18 17:48) Upset Stomach rofecoxib [From Vioxx] Adverse Reaction (Verified 02/16/18 17:48) Upset Stomach Medications Prednisone 5 mg PO DAILY 09/18/17 [History Confirmed 02/16/18] Acetaminophen [Tylenol] 1,000 mg PO Q8H PRN PRN tab 10/28/17 [Rx Confirmed 02/16/18] apixaban 5 mg tablet 2.5 mg PO BID tab 02/14/18 [History Confirmed 02/16/18] hydrochlorothiazide 25 mg tablet 25 mg PO DAILY 02/14/18 [History Confirmed 02/16/18] metoprolol tartrate 25 mg tablet 12.5 mg PO BID tab 02/14/18 [History Confirmed 02/16/18] potassium chloride ER 10 mEq tablet,extended release 10 meq PO DAILY 02/14/18 [History Confirmed 02/16/18] ranitidine 150 mg tablet 150 mg PO DAILY 02/14/18 [History Confirmed 02/16/18] ciprofloxacin 500 mg tablet 500 mg PO BID 02/15/18 [History Confirmed 02/16/18] diclofenac sodium 50 mg tablet,delayed release 50 mg PO BID 02/15/18 [History Confirmed 02/16/18] [facility] Medical History Hypokalemia (Chronic) High blood pressure with chronic kidney disease (Chronic) Hypertensive nephropathy (Chronic) Hyperlipidemia (Chronic) Atherosclerosis of coronary artery of [place] heart without angina pectoris (Chronic) Bilateral pulmonary embolism (Chronic) DVT (deep venous thrombosis) (Chronic) Stage III chronic kidney disease (Chronic) Addisons disease (Chronic) Hematoma of left lower extremity (Acute) Allergic rhinitis (Chronic) Anxiety (Chronic) Chronic anemia (Chronic) Chronic back pain (Chronic) GERD (gastroesophageal reflux disease) (Chronic) Gout (Chronic) Hypothyroidism (Chronic) Obesity (Chronic) Osteoarthritis (Chronic) Polymyalgia rheumatica (Chronic) GI bleed (Resolved) Intra-abdominal abscess (Resolved) Perforated bowel (Resolved) Surgical History History of back surgery (Resolved) History of cataract surgery (Resolved) History of repair of hiatal hernia (Resolved) History of right hip replacement (Resolved) Family History Father Heart disease Mother CVA (cerebral vascular accident) Other CAD (coronary artery disease) Myocardial infarction Social History Smoking Status: Never smoker HPI HPI Chief Complaint: Initial visit. Details: DIA MCCULLOUGH, is a 77 F who presents to the office today for initial evaluation right lower extremity laceration. Patient states while at home her dog jumped up and with her nails tore the outer part of her skin along the lateral aspect of her right lower leg. She noted immediate pain bleeding and drainage from the same. She has a long-standing history of bilateral lower extremity extensive pitting edema. Immediately after the incident occurred patient put ABD dressing and Spike wrap to the same then reported to the [facility] approximately 2 hours later as she noticed the drainage would not stop. She notes no loss of sensation strength or function distal to the site. She notes no other complaints at this time. Incidentally, patient notes she has a follow-up with circular shear operator for a or bilateral lower extremity ultrasounds scheduled for February 22, 2018. ROS Const Constitutional: Positive for other (As noted above) Exam Const General: cooperative, healthy appearing, in distress (Due to right lower extremity discomfort), comfortable Nutritional Appearance: average body habitus Orientation: alert, awake, oriented x3 HENMT Head: normal to inspection Chest Chest palpation AND inspection: normal inspection of the chest Resp Effort AND Inspection: normal respiratory effort, able to speak in complete sentences, symmetric chest movement, no cough Cardio Rate: regular rate Pulses: posterior tibial pulses present, dorsalis pedis pulses present, radial pulses present GI Inspection: normal to inspection Musc Musculoskeletal: No joint tenderness, joint redness, joint warmth or decreased ROM Skin General: no rashes or lesions noted Trauma: laceration (See other below) Other: Skin tear approximately 15 cm in length C shaped and displaced through the epidermal and dermal layers no active bleeding no matter him a moderate amount of transudate drainage appreciated. Slight of skin tear was cleansed then realigned in appropriate anatomical positioning then bacitracin ointment applied and Adaptic over open sites then dressing was and Spike wrap applied thereafter. Patient noted tolerating procedure well. Neuro General: alert, awake, oriented x3, gait normal Cognition: normal cognition Speech: speech normal Gait: normal gait Motor: muscle tone normal throughout Sensory Exam: no sensory deficits noted Extrem General: full ROM, normal capillary refill, no joint enlargement, normal exam except as noted (+3 pitting edema bilateral lower extremities.) Other: Left lower extremity wound from approximately 2 weeks ago with appropriate granulation without compromise otherwise appreciated upon inspection Psych Appearance: grossly normal Mental Status: mental status grossly normal Mood: congruent mood Affect: normal affect Speech and Movement: speech and movement normal Attitude: cooperative Thought Process: normal Thought Content: normal Judgment: judgment good Assessment AND Plan Problems 1. Laceration of right lower extremity S81.811A Plan 2-3 times daily wound care as instructed today. Follow-up with PCP in 3-5 days should symptoms not improve, sooner should symptoms worsen or any other concerns develop. Continue Cipro as previously prescribed by private physician for other nonrelated health issue. Keep follow-up appointment with cardiology as previously scheduled for February 22, 2018. Patient states acknowledging understanding all the above. This note was generated with [employer]otokiation software. It may contain incorrect words, spelling, and punctuation that were not noted in checking the note before signing. Coding Level of Care Code Off vis,est,level 3 Diagnoses Laceration of right lower extremity S81.811A 02/16/18 1800 <Electronically signed by Obey DUNCAN> Date Obey DUNCAN Cosigner Signature: Date (if applicable) CC: CARDIOLOGY VISIT Observed: 02/15/2018 Status: F Source: HOOD REPORT 1:47 PM [facility] REPOSITORY [facility] [address] [place] [address]. [address] [place] [address] OFFICE VISIT Date of Service: 02/15/18 MR#: [id number] Acct: [id number] Name: DIA MCCULLOUGH Rep #: [id number] : 1940 Provider: Jackson Uriostegui MD Age/Sex: 77/F [place] [facility]: Signed HPI HPI Chief Complaint: Initial visit. Details: DIA MCCULLOUGH, is a 77 F who presents to the office today for an initial visit. She is a lady with a history of adrenal insufficiency hyperlipidemia previous deep vein thrombosis and pulmonary embolism in September 2017 as well as chronic kidney disease. She says that she was in the hospital in [place] a number of months ago and had complained of some dizziness and was noted to have some irregular heartbeat and they felt that she needed to see a circular shear operator. She has not had any sustained palpitations. She previously was treated for hypertension with a beta-ab which was increased. She has been compliant with all her medications. She apparently had an echocardiogram done in 2015 the results of which are not immediately available to us. She had been in [place] with sepsis secondary to bowel perforation was treated with antibiotics and has done well since. She has had no neck arm or jaw discomfort suggest angina. Her previous electrocardiogram from September of this year demonstrated normal sinus rhythm with no acute changes. Her physical exam today demonstrates clear lung perez regular rate and rhythm normal blood pressure and bilateral 3+ pitting and nonpitting edema. Intake Vital Signs02/15/18 Height 5 ft 02/15/18 Weight: 156 lb 02/15/18 Body Mass Index (BMI) 30.4 02/15/18 Blood Pressure 104/60 02/15/18 Respiratory Rate 18 02/15/18 Pulse Rate 98 Intake Visit Reasons: Dr Justin ref'd for HTN, edema Allergies Iodine and Iodide Containing Produc Allergy (Verified 02/15/18 12:28) Unknown amoxicillin trihydrate [From Augmentin] Adverse Reaction (Verified 02/15/18 12:28) Upset Stomach diclofenac sodium [From Arthrotec] Adverse Reaction (Verified 02/15/18 12:28) Upset Stomach doxycycline Adverse Reaction (Verified 02/15/18 12:28) Upset Stomach erythromycin base Adverse Reaction (Verified 02/15/18 12:28) Upset Stomach etodolac [From Lodine] Adverse Reaction (Verified 02/15/18 12:28) Upset Stomach flurbiprofen [From Ansaid] Adverse Reaction (Verified 02/15/18 12:28) Upset Stomach misoprostol [From Arthrotec] Adverse Reaction (Verified 02/15/18 12:28) Upset Stomach NSAIDS (Non-Steroidal Anti-Inflamma Adverse Reaction (Verified 02/15/18 12:28) Other potassium clavulanate [From Augmentin] Adverse Reaction (Verified 02/15/18 12:28) Upset Stomach rofecoxib [From Vioxx] Adverse Reaction (Verified 02/15/18 12:28) Upset Stomach Medications Prednisone 5 mg PO DAILY 09/18/17 [History Confirmed 02/15/18] Acetaminophen [Tylenol] 1,000 mg PO Q8H PRN PRN tab 10/28/17 [Rx Confirmed 02/15/18] apixaban 5 mg tablet 2.5 mg PO BID tab 02/14/18 [History Confirmed 02/15/18] hydrochlorothiazide 25 mg tablet 25 mg PO DAILY 02/14/18 [History Confirmed 02/15/18] metoprolol tartrate 25 mg tablet 12.5 mg PO BID tab 02/14/18 [History Confirmed 02/15/18] potassium chloride ER 10 mEq tablet,extended release 10 meq PO DAILY 02/14/18 [History Confirmed 02/15/18] ranitidine 150 mg tablet 150 mg PO DAILY 02/14/18 [History Confirmed 02/14/18] ciprofloxacin 500 mg tablet 500 mg PO BID 02/15/18 [History Confirmed 02/15/18] diclofenac sodium 50 mg tablet,delayed release 50 mg PO BID 02/15/18 [History Confirmed 02/15/18] [facility] Medical History Hypokalemia (Chronic) High blood pressure with chronic kidney disease (Chronic) Hypertensive nephropathy (Chronic) Hyperlipidemia (Chronic) Atherosclerosis of coronary artery of [place] heart without angina pectoris (Chronic) Bilateral pulmonary embolism (Chronic) DVT (deep venous thrombosis) (Chronic) Stage III chronic kidney disease (Chronic) Addisons disease (Chronic) Hematoma of left lower extremity (Acute) Allergic rhinitis (Chronic) Anxiety (Chronic) Chronic anemia (Chronic) Chronic back pain (Chronic) GERD (gastroesophageal reflux disease) (Chronic) Gout (Chronic) Hypothyroidism (Chronic) Obesity (Chronic) Osteoarthritis (Chronic) Polymyalgia rheumatica (Chronic) GI bleed (Resolved) Intra-abdominal abscess (Resolved) Perforated bowel (Resolved) Surgical History History of back surgery (Resolved) History of cataract surgery (Resolved) History of repair of hiatal hernia (Resolved) History of right hip replacement (Resolved) Family History Father Heart disease Mother CVA (cerebral vascular accident) Other CAD (coronary artery disease) Myocardial infarction Social History Smoking Status: Never smoker ROS Const Const: Negative for fatigue, weakness, difficulty sleeping, frequent falls, excessive sweating or headache(s) Eyes Eyes: Negative for loss of peripheral vision, transient loss of vision, blurry vision, tunnel vision or double vision ENT ENT: Negative for headache(s), dizziness, Nosebleed/epistaxis or balance problems Cardio Chest Pain: No Palpitations: No Edema: Bilateral (BLE edema for past 2 months. LLE hematoma resolved.) Muscle aches with walking: None Resp Respiratory: Negative for SOB with activity, SOB at rest, SOB orthopnea\SOB lying down, paroxysmal nocturnal dyspnea or Cough GI GI: Positive for other (Abdominal pain and tachycardia resolved with voltaren per patient); negative nausea, heartburn, black,tarry stools or vomiting : Negative for hematuria Musc Musc: Negative for balance problems, muscle aches/ myalgia, muscle weakness or joint pain Skin Skin: Negative non-healing lesions, unusual bruising or rash Neuro Neuro: Negative for weakness, frequent falls, headache(s), blurry vision, double vision, dizziness, lightheadedness, orthostatic symptoms, near syncope, syncope or lack of coordination [place] Hematologic/Lymphatic: Negative for easy bruising or easy bleeding Endo Endo: Negative for fatigue, excessive sweating or increased thirst/drinking Psych Psych: Negative for anxiety or depression Allergy Allergy/Immunology: Negative for hives, Negative for rash Cardiology Exam Const Appearance: cooperative, healthy appearing, well developed, well groomed and no acute distress Nutritional Appearance: well nourished and average body habitus Orientation: alert, awake and oriented x3 Head Head: normal to inspection, normocephalic and atraumatic Ears: hearing grossly normal bilaterally and external ears normal Nose: external nose normal, nasal mucous membranes and turbinates normal, nares normal, septum normal, no nasal discharge Face and Sinus: face symmetric Mouth: oral mucosae normal, tongue normal, oropharynx normal and moist mucous membranes Teeth and gingiva: dentition normal Throat: posterior oropharynx normal, tonsils normal and uvula midline Eyes General: appearance normal, both eyes and all related structures Eyelids: eyelids normal Conjunctivae: conjunctivae normal Pupils: PERRL, normal by confrontation and accommodation normal EOM: EOM intact bilaterally Neck Neck: normal visual inspection, trachea midline and no JVD JVD: +5 Carotids: normal carotid upstroke and bounding pulses Chest Chest inspection: normal inspection of the chest, symmetric chest movement and normal respiratory effort Auscultation: Bilateral: Clear to Auscultation Cardio Palpation: normal PMI Rate: regular rate Rhythm: regular rhythm Heart sounds: S1 normal, S2 normal and normal, physiologic split S2; negative rub, gallop or murmur GI GI: normal to inspection, soft, no hepatosplenomegaly and bowel sounds present Neuro General: alert, awake, oriented x3, no focal sensory deficit, gait normal and moves all extremities Skin Skin: no rashes or lesions noted Extremities Lower Extremity Edema: +3: Bilateral, Weeping: Bilateral Musculoskel Musculoskeletal: No joint tenderness Psych Psychological: normal affect Assessment AND Plan 1. Essential hypertension I10 Plan She does have a history of hypertension which appears to be well controlled on the current medical therapy she does have stage III kidney disease. She has not had a recent echocardiogram and my recommendation at this time will be for us to proceed with an echocardiogram to assess her left ventricular function and wall thickness. She will continue on her beta-ab at this time. Orders Orders: 2. Pure hypercholesterolemia E78.00; E78.0 Plan She does have a history of hyperlipidemia and will continue to observe the above carefully with diet. 3. Bilateral pulmonary embolism I26.99 Plan She has a history of bilateral pulmonary embolism and is on apixaban. An echocardiogram would be helpful to see what her pulmonary pressures are. This may be responsible for why some of her pedal edema occurs. Thank you for allowing me to participate in the care of your patient. Please don't hesitate to call if any issues arise Plan Detail Other Orders Orders: Follow Up 6 Months ([facility]) Coding Level of Care Code Off vis,new,level 4 Diagnoses Essential hypertension I10 Hypertension type: essential hypertension Pure hypercholesterolemia E78.00; E78.0 Hyperlipidemia type: pure hypercholesterolemia Bilateral pulmonary embolism I26.99 Coding Level of Care Code Off vis,new,level 4 Diagnoses Essential hypertension I10 Hypertension type: essential hypertension Pure hypercholesterolemia E78.00; E78.0 Hyperlipidemia type: pure hypercholesterolemia Bilateral pulmonary embolism I26.99 02/15/18 1347 <Electronically signed by Jackson Uriostegui MD> Date Jackson Uriostegui MD Cosigner Signature: Date (if applicable) CC: Nathalie Early M.D.; Jared Romero MD CT PELVIS W/O Observed: 02/09/2018 Status: F Source: [facility] CONTRAST 1:46 PM [facility] REPOSITORY Performed at [facility] APPROVED BY: Phong Rush MD EXAMINATION: CT PELVIS WITHOUT IV CONTRAST CLINICAL HISTORY: The patient is a 77-year-old female with previous pelvic diverticular abscess which was drained percutaneously. 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 And then on the last abscessogram with resolution of the connection. The abscess cavity was decompressed and the catheter was removed on November 10, 2017. The patient had a period of no abdominal symptoms but now recently has developed pelvic pain. White blood cell count is minimally elevated and shifted. The patient underwent outside CT scan on January 26, 2018 and this revealed some fluid and gas in the presacral space with some surrounding inflammation. TECHNIQUE: Non-IV contrast imaging of the pelvis was performed using standard technique, scanning from just above the dome of the diaphragm to the symphysis pubis. Unenhanced imaging is limited for the evaluation of some pelvic pathology. M: [id number] CT Radiation dose: Integrated Dose-length product (DLP) for this visit = 355.13 mGy*cm. CT Dose Reduction Employed: Automated exposure control (AEC) was used. COMPARISON: Outside CT scan from January 26, [address] scan from October 27, 2017. RESULT: GI Tract: No bowel dilation. There still are some scattered sigmoid diverticula. At the site of previous abscess drain there is a small amount of presacral soft tissue thickening. There appears to be less extraluminal gas and less fibrofatty inflammatory change in the adjacent fat. The gas is collecting just underneath the aortic bifurcation against the presacral region and between the common margaret c arteries. The rest of the visualized bowel is normal. An appendix is not identified. Lymph Nodes: No lymphadenopathy. Mesentery/peritoneum: No ascites. Retroperitoneum: No mass. Vasculature: No iliac artery aneurysm. Pelvis: No mass or ascites. The uterus is slightly eccentric to the left. Bones/Soft Tissues: There is a right total hip prosthesis. No other bony or soft tissue abnormalities are identified. IMPRESSION: Since January 26, 2018 there is decrease in the overall volume of soft tissue and inflammatory changes in the presacral region with some residual soft tissue present. There is reduction in pockets of gas that resides in the presacral region. An abscess drainage catheter was not placed. NURSING PROG Observed: 02/09/2018 Status: COMPLETED Source: ARVIN 12:17 PM [facility] REPOSITORY HNO ID: [id number] Author: Katia (Rn) JANET Miller Service: ASSESSMENT Author Type: Registered Nurse Type: Nursing Progress Note Filed: 02/09/2018 1:48 PM Note Text: 1 1215 patient admitted to [facility], pre procedure teaching at bedside. VSS Review of medications and moderate sedation with patient. 1350 patient return to [facility], procedure cancel No fluid to remove. HOSP Observed: 02/06/2018 Status: COMPLETED Source: ARVIN 12:00 AM [facility] REPOSITORY Patient:Dia Mccullough MRN: <[id number]> Height:4' 11(1.499 m) Weight:150 lb (68.04 kg) Outpatient Medications as of 02/09/18: folic acid-B6-B12 (FOLCAPS) 2.2-25-0.5 mg tab warfarin (COUMADIN) 2 mg tablet metoprolol tartrate, short acting, (LOPRESSOR) 25 mg tablet polyethylene glycol 3350 (MIRALAX, GLYCOLAX) 17 gram packet predniSONE (DELTASONE) 2.5 mg tablet Omeprazole 40 mg capsule predniSONE (DELTASONE) 5 mg tablet ondansetron orally disintegrating (ZOFRAN ODT) 4 mg disintegrating tablet Admission/Clinic Administered Medications as of 02/09/18: 0.9% NaCl 2-10 mL 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.4] Asthma [J45.909] Vitamin D deficiency [E55.9] Osteoarthrosis, unspecified whether generalized or localized, hand [M19.049] Osteoarthrosis, unspecified whether generalized or localized, ankle and foot [M19.079] Fibromyalgia [M79.7] Sicca 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.00] Acute thromboembolism of deep veins of lower extremity (HCC) [I82.409] Inflammatory polyarthritis (HCC) [M06.4] DVT (deep venous thrombosis) (HCC) [I82.409] Pulmonary embolism, bilateral (HCC) [I26.99] Pulmonary emboli (HCC) [I26.99] PMR (polymyalgia rheumatica) (HCC) [M35.3] Generalized osteoarthritis [M15.9] CKD (chronic kidney disease) stage 3, GFR 30-59 ml/min (HCC) [N18.3] Venous insufficiency (chronic) (peripheral) [I87.2] 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] Perforated bowel (HCC) [K63.1] 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] Intra-abdominal abscess (HCC) [K65.1] Traumatic hematoma of left lower leg [S80.12XA] Leg hematoma, left, initial encounter [S80.12XA] Pelvis, female abscess [N73.9] Allergies: Ansaid [Flurbiprofen] Arthrotec 50 [Diclofenac-Misoprostol] Augmentin [Amoxicillin-Pot Clavulanate] Doxycycline Erythromycin Grass Pollen Lodine [Etodolac] Nsaids (Non-Steroidal Anti-Inflammatory Drug) Poison Lisa Vioxx [Rofecoxib] Date Verified: 02/09/18 Lab Values No results within the last 30 days for the following basenames: K,HCT Progress Notes ([facility]OL[facility] AG AKYOHAN NEELY): Katarzynaamy Szymanski Sec 01/25/2018 11:35 AM Signed Patient called for refill of folic acid. She has been off since discharge. Her PCP ordered a homocysteine level. It was 9.1 on 01/19/18, but not fasting. Will you want the level repeated? She is still not feeling well, when do you want an office visit? ABDOMEN/PELVIS WITH Observed: 01/26/2018 Status: F Source: [facility] CONTRAST 1:30 PM [facility] Imaging Services [address] [place] [address] Abdomen/Pelvis WITH Contrast MR#: [id number] Acct: [id number] Name: DIA MCCULLOUGH Rep #: [id number] : 1940 F 77 From: Kanwal Gutierrez MD PCP: Jared Romero MD Status: REG CLI Study: Abdomen/Pelvis WITH Contrast Date of Exam: 01/26/18 Exam# [id number] Ordering Dr: Jared Romero MD STUDY: CT ABDOMEN AND PELVIS WITH CONTRAST REASON FOR EXAM: Female, 77 years old. Abdominal pain and nausea. History of bowel perforation and abscess. Prior lumbar surgery and umbilical hernia repair. RADIATION DOSAGE (If Supplied By Facility): CTDIvol = ( 10.98 ) mGy, DLP = ( 907.65 ) mGycm TECHNIQUE: Transaxial images were obtained from the dome of the diaphragm to the symphysis pubis with oral contrast. 100 ml of Isovue 300 contrast was administered. Sagittal and coronal images were reconstructed. Individualized dose optimization techniques were used for this CT. COMPARISON: Prior abdomen and pelvic CT exam of October 08, 2017 FINDINGS: Mild posterior bibasilar atelectatic changes. The visualized portions of the heart are within normal limits. Normal liver. Normal gallbladder and extrahepatic biliary system. Normal spleen. Normal pancreas. Normal bilateral adrenal glands. 5 mm nonobstructing stone in the lower pole of the right kidney without hydronephrosis or ureteral stones. Multiple subcentimeter cysts of the left kidney without hydronephrosis or stones. Normal visualized stomach. Large duodenal diverticulum of the third duodenum. Normal small intestine. The proximal colon through the proximal sigmoid colon is unremarkable other than occasional diverticulosis. There continues to be an irregular multiloculated appearing presacral collection appearing directly connected to the distal sigmoid/rectosigmoid junction reduced in size but still containing extraluminal air. To the right of midline there is a well defined air-filled fistula to a distal small bowel loop, possibly 2 loops. The overall size of the main chronic abscess is 5.8 x 2.5 x 4.6 cm. The appendix is visualized and appears normal. There is diffuse atherosclerotic calcification of the abdominal aorta, without a demonstrated aneurysm. Normal inferior vena cava. Normal retroperitoneum. Nondistended urinary bladder. Normal abdominal wall. There are diffuse degenerative changes of the visualized lumbar spine with a mild dextroscoliosis. Status post posterior spinal fusion of L3 and L4 with stable appearance of the hardware. Status post right hip replacement. 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 Otherwise normal proximal colon and appendix. Otherwise unremarkable small bowel and stomach. Large duodenal diverticulum. No additional acute findings or changes. 5 mm nonobstructing stone in the lower pole of the right kidney. Subcentimeter cysts of the left kidney. Atherosclerotic changes of the aorta. Electronically Signed: Kanwal Gutierrez MD at 16:39 EDT , Service support , CC: Jared Romero MD Fruit Pitter: Signed CBC W/DIFF, AUTOMATED Collected: 01/26/2018 Status: F Source: HOOD 12:06 PM [facility] REPOSITORY TYPE CODE TESTS RESULT OUT OF RANGE REFERENCE UNITS LAB L100.1000 4.4-11.0 K/mm3 Normal WBC 10.6 LAB L100.1200 4.2-5.4 M/mm3 Low RBC 4.09 LAB L100.1300 12.0-15.0 g/dl Low HGB 11.4 LAB L100.1400 37-47 % Normal HCT 39.0 LAB L100.1500 81-99 fL Normal MCV 95.4 LAB L100.1600 27.0-32.0 pg Normal MCH 27.9 LAB L100.1700 32-36 g/gl Low MCHC 29.2 LAB L100.1810 11.6-14.6 % High RDW CV 16.1 LAB L100.1820 35.1-43.9 fl High RDW SD 55.6 LAB L100.1900 150-450 K/mm3 Normal PLT 386 LAB L100.2000 6.2-12.0 fl Normal MPV 9.6 LAB L100.2100 47-70 % High NEUT% 83.5 LAB L100.2200 19-41 % Low LY% 8.3 LAB L100.2300 0-10 % Normal MONO% 7.1 LAB L100.2400 0-5 % Normal EO% 0.3 LAB L100.2500 0-1 % Normal BASO% 0.4 LAB L100.2550 0.0-0.9 % Normal IM GRAN % 0.400 Result Comment: IG% - Immature Granulocytes (promyelocytes, myelocytes and metamyelocytes) > 1% indicates that a LEFT SHIFT is Present. LAB L100.2620 2.0-7.7 X10 3/uL High Absolute Neut 8.9 LAB L100.2720 0.83-4.51 X10 3/ul Normal Absolute Lymph 0.88 Performed By: #### L100.0100 #### [facility] [address] [place], [place], [address] COMPREHENSIVE METABOLIC Collected: 01/26/2018 Status: F Source: [facility] 12:06 PM [facility] REPOSITORY TYPE CODE TESTS RESULT OUT OF RANGE REFERENCE UNITS LAB L501.0100 74-106 mg/dL High GLU 109 Result Comment: Fasting Glucose result from 100 to 125 mg/dL suggests IMPAIRED HOMEOSTASIS per A.D.A. criteria. Please note revised GLUCOSE reference range effective 2017. LAB L501.1000 7-18 mg/dL High BUN 25 LAB L501.1100 0.55-1.02 mg/dL High CREAT,SERUM 1.40 Result Comment: The validity of the calculated GFR AND GFRAA in patients over 70 years has not been determined. Clinical correlation is essential. LAB L501.1110 >60 mL/min Low EST GFR 39 Result Comment: Non- GFR Calc LAB L501.1115 >60 mL/min Low EST GFR - AA 47 Result Comment: GFR Calc LAB L501.1300 10-20 RATIO Normal BUN/CRE 17.9 LAB L501.1500 6.4-8.2 g/dL T Normal PROT 7.3 LAB L501.1800 3.2-5.0 g/dL Low ALB 2.8 LAB L501.1950 2.2-4.2 g/dL High GLOB 4.5 LAB L501.2000 0.9-2.4 RATIO Low A/G 0.6 LAB L501.2200 8.5-10.1 mg/dL CA Normal 8.8 LAB L501.4100 15-37 U/L Low AST 8 LAB L501.4305 45-117 U/L Normal ALK P 60 LAB L501.4405 13-56 U/L Normal ALT 23 LAB L501.4600 0.20-1.00 mg/dL T Normal BILI 0.30 LAB L501.5300 136-145 mmol/L NA Normal 142 LAB L501.5600 3.5-5.1 mmol/L K Normal 3.9 LAB L501.5900 98-107 mmol/L High CL 108 LAB L501.6100 21.0-32.0 mmol/L Normal CO2 23.0 LAB L501.6200 5-15 Normal GAP 11 Performed By: #### L500.4050 #### [facility] [place], [address] Observed: 01/26/2018 Status: F Source: [place] CULTURE, URINE 12:00 AM [facility] REPOSITORY Urine Culture ORGANISM 1: Klebsiella pneumoniae sp pneum [place] Count 25,000-50,000 ORGANISM 2: Proteus mirabilis [place] Count 50,000-80,000 Klebsiella pneumoniae sp pneum: REACTION Amoxacillin/Clavulanic Acid $ <=2 S Ampicillin $ 16 R Ampicillin/Sulbactam $ 4 S Cefazolin $ <=4 S Cefepime $ <=1 S Ceftriaxone $ <=1 S Ciprofloxacin $ <=0.25 S ESBL - Ertapenim $$$ <=0.5 S Gentamicin $ <=1 S Imipenem *NF <=0.25 S Levofloxacin $ <=0.12 S Nitrofurantoin $ <=16 S Piperacillin/Tazobactam $$ <=4 S Tobramycin $ <=1 S Trimethoprim/Sulfametho $ <=20 S (NF) indicates non-formulary drug at [facility]. Approval by Infectious Disease Specialist required before non-formulary drugs may be ordered and/or dispensed. Proteus mirabilis: REACTION Amoxacillin/Clavulanic Acid $ <=2 S Ampicillin $ <=2 S Ampicillin/Sulbactam $ <=2 S Cefazolin $ <=4 S Cefepime $ <=1 S Ceftriaxone $ <=1 S Ciprofloxacin $ <=0.25 S Ertapenim $$$ <=0.5 S Gentamicin $ <=1 S Levofloxacin $ <=0.12 S Nitrofurantoin $ 128 R Piperacillin/Tazobactam $$ <=4 S Tobramycin $ <=1 S Trimethoprim/Sulfametho $ <=20 S (NF) indicates non-formulary drug at [facility]. Approval by Infectious Disease Specialist required before non-formulary drugs may be ordered and/or dispensed. Performed By: #### M100.0650 #### [facility] [address] [place], [address] OBSOLETE Observed: 01/25/2018 Status: COMPLETED Source: ARVIN 12:00 AM CLINIC OTHER [facility]AMP[facility] REPOSITORY Refill (HEMAPOB) DIA MCCULLOUGH ([id number]) 1940 F DILIA Date Time Provider Department 01/25/18 ANTIONE IRIZARRY HEMAPOB During your visit today, we recorded the following information about you: Katarzynaamy Baumanman Sec 01/25/2018 11:35 AM Signed Patient called for refill of folic acid. She has been off since discharge. Her PCP ordered a homocysteine level. It was 9.1 on 01/19/18, but not fasting. Will you want the level repeated? She is still not feeling well, when do you want an office visit? Allergies As of Date: 01/25/2018 Noted Allergy Reaction ANSAID (FLURBIPROFEN) 12/22/2010 8 - GI Upset Comments: Ulcer ARTHROTEC 50 (DICLOFENAC-MISOPROS*06/24/2011 8 - GI Upset Comments: Cytotec upset stomach more than just the voltaren by itself AUGMENTIN (AMOXICILLIN-POT CLAVUL*08/31/2008 8 - GI Upset Comments: tolerates cephalexin DOXYCYCLINE 03/17/2005 8 - GI Upset ERYTHROMYCIN 03/17/2005 8 - GI Upset GRASS POLLEN 02/17/2006 LODINE (ETODOLAC) 03/17/2005 NSAIDS (NON-STEROIDAL ANTI-INFLAM*03/11/2017 16 - Unknown POISON LISA 03/17/2005 VIOXX (ROFECOXIB) 03/17/2005 8 - GI Upset Date Reviewed: 11/10/2017 Reviewed by: Phong Rush - Fully Assessed Reason for Visit: Refill Request [94] Order(s):folic acid-B6-B12 (FOLCAPS) 2.2-25-0.5 mg tabTake 1 tablet by mouth once daily.Disp: 90 tabletRfl: 3 Prescriptions as of 01/25/2018 Sig: FOLIC ACID-VIT B6-VIT B12 2.2* Take 1 tablet by mouth once d* WARFARIN 2 MG TABLET Take 2 mg by mouth daily as d* METOPROLOL TARTRATE 25 MG TAB* Take 1 tablet by mouth every * POLYETHYLENE GLYCOL 3350 17 G* Take 1 Packet by mouth once d* PREDNISONE 2.5 MG TABLET Take 2.5 mg by mouth daily be* OMEPRAZOLE 40 MG CAPSULE,CHRISTIANO* Take 40 mg by mouth once norma* PREDNISONE 5 MG TABLET Take 5 mg by mouth twice norma* ONDANSETRON 4 MG DISINTEGRATI* Take 1 tablet by mouth every * Problem List As Of Date 01/25/2018 Noted Resolved PURE HYPERCHOLESTEROLEM [E78.00] DERMATITIS NOS [L25.9] ENTHESOPATHY OF HIP [M76.899] GASTRITIS/DUODEN NOS W/O HEMORRH [K29.70, K29.9* Essential hypertension [I10] ADHESIVE CAPSULIT SHLDER [M75.00] INVALID FOR* ALLERGIC RHINITIS NOS [J30.9] INVALID FOR* Inflammatory Polyarthropathy [M06.4] INVALID FOR* Asthma [J45.909] Vitamin D deficiency [E55.9] INVALID FOR* Osteoarthrosis, unspecified whether generalized*INVALID FOR* Osteoarthrosis, unspecified whether generalized*INVALID FOR* Fibromyalgia [M79.7] INVALID FOR* 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 More... DVT (deep venous thrombosis) (HCC) [I82.409] INVALID FOR* More... Pulmonary embolism, bilateral (HCC) [I26.99] INVALID FOR* More... Pulmonary emboli (HCC) [I26.99] INVALID FOR* More... 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 Medications Discontinued During This Encounter folic acid-B6-B12 (FOLCAPS) 2.2-25-0* 90 t* 3 01/17/2018 01/25/2018 Sig: take 1 tablet by mouth once daily Disc: Reason for discontinue is not on file. Encounter Status:Closed by ANTIONE IRIZARRY MD on 01/25/18 BASIC METABOLIC Collected: 01/20/2018 Status: F Source: ANNMARIE PROFILE (BMP) 2:40 PM [facility] REPOSITORY Order Comment: Order Date: 01/17/18 Order Info: [id number] - BMP TYPE CODE TESTS RESULT OUT OF RANGE REFERENCE UNITS LAB L501.0100 74-106 mg/dL High GLU 135 Result Comment: Fasting Glucose result greater than or equal to 126 mg/dL suggests DIABETES MELLITUS per A.D.A. criteria. Please note revised GLUCOSE reference range effective 2017. LAB L501.1000 7-18 mg/dL High BUN 29 LAB L501.1100 0.55-1.02 mg/dL High CREAT,SERUM 1.35 Result Comment: The validity of the calculated GFR AND GFRAA in patients over 70 years has not been determined. Clinical correlation is essential. LAB L501.1110 >60 mL/min Low EST GFR 40 Result Comment: Non- GFR Calc LAB L501.1115 >60 mL/min Low EST GFR - AA 49 Result Comment: GFR Calc LAB L501.1300 10-20 RATIO High BUN/CRE 21.5 LAB L501.2200 8.5-10.1 mg/dL CA Normal 8.9 LAB L501.5300 136-145 mmol/L NA Normal 142 LAB L501.5600 3.5-5.1 mmol/L K Normal 4.0 LAB L501.5900 98-107 mmol/L CL Normal 107 LAB L501.6100 21.0-32.0 mmol/L Normal CO2 25.0 LAB L501.6200 5-15 Normal GAP 10 Performed By: #### L500.2500 #### [facility] [address] [place], [address] OBSOLETE Observed: 01/17/2018 Status: COMPLETED Source: [facility] 12:00 AM [facility] [place] REPOSITORY Refill (HEMAPOB) DIA MCCULLOUGH ([id number]) 1940 F DILIA Date Time Provider Department 01/17/18 ANTIONE IRIZARRY HEMAPOB During your visit today, we recorded the following information about you: Allergies As of Date: 01/17/2018 Noted Allergy Reaction ANSAID (FLURBIPROFEN) 12/22/2010 8 - GI Upset Comments: Ulcer ARTHROTEC 50 (DICLOFENAC-MISOPROS*06/24/2011 8 - GI Upset Comments: Cytotec upset stomach more than just the voltaren by itself AUGMENTIN (AMOXICILLIN-POT CLAVUL*08/31/2008 8 - GI Upset Comments: tolerates cephalexin DOXYCYCLINE 03/17/2005 8 - GI Upset ERYTHROMYCIN 03/17/2005 8 - GI Upset GRASS POLLEN 02/17/2006 LODINE (ETODOLAC) 03/17/2005 NSAIDS (NON-STEROIDAL ANTI-INFLAM*03/11/2017 16 - Unknown POISON LISA 03/17/2005 VIOXX (ROFECOXIB) 03/17/2005 8 - GI Upset Date Reviewed: 11/10/2017 Reviewed by: Phong Rush - Fully Assessed Reason for Visit: Refill Request [94] Order(s):folic acid-B6-B12 (FOLCAPS) 2.2-25-0.5 mg tabtake 1 tablet by mouth once dailyDisp: 90 tabletRfl: 3 Prescriptions as of 01/17/2018 Sig: FOLIC ACID-VIT B6-VIT B12 2.2* take 1 tablet by mouth once d* WARFARIN 2 MG TABLET Take 2 mg by mouth daily as d* METOPROLOL TARTRATE 25 MG TAB* Take 1 tablet by mouth every * POLYETHYLENE GLYCOL 3350 17 G* Take 1 Packet by mouth once d* PREDNISONE 2.5 MG TABLET Take 2.5 mg by mouth daily be* OMEPRAZOLE 40 MG CAPSULE,CHRISTIANO* Take 40 mg by mouth once norma* PREDNISONE 5 MG TABLET Take 5 mg by mouth twice norma* ONDANSETRON 4 MG DISINTEGRATI* Take 1 tablet by mouth every * Problem List As Of Date 01/17/2018 Noted Resolved PURE HYPERCHOLESTEROLEM [E78.00] DERMATITIS NOS [L25.9] ENTHESOPATHY OF HIP [M76.899] GASTRITIS/DUODEN NOS W/O HEMORRH [K29.70, K29.9* Essential hypertension [I10] ADHESIVE CAPSULIT SHLDER [M75.00] INVALID FOR* ALLERGIC RHINITIS NOS [J30.9] INVALID FOR* Inflammatory Polyarthropathy [M06.4] INVALID FOR* Asthma [J45.909] Vitamin D deficiency [E55.9] INVALID FOR* Osteoarthrosis, unspecified whether generalized*INVALID FOR* Osteoarthrosis, unspecified whether generalized*INVALID FOR* Fibromyalgia [M79.7] INVALID FOR* 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 More... DVT (deep venous thrombosis) (HCC) [I82.409] INVALID FOR* More... Pulmonary embolism, bilateral (HCC) [I26.99] INVALID FOR* More... Pulmonary emboli (HCC) [I26.99] INVALID FOR* More... 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] Intra-abdominal abscess (HCC) [K65.1] INVALID FOR* Traumatic hematoma of left lower leg [S80.12XA] INVALID FOR* Leg hematoma, left, initial encounter [S80.12XA]INVALID FOR* Pelvis, female abscess [N73.9] INVALID FOR* Prescriptions ordered this encounter Disp Refills Start End FOLIC ACID-VIT B6-VIT B12 2.2 MG-25 * 90 t* 3 01/17/2018 Sig: take 1 tablet by mouth once daily Encounter Status:Closed by ANTIONE IRIZARRY MD on 01/17/18 CBC W/DIFF, AUTOMATED Collected: 01/12/2018 Status: F Source: ANNMAIRE 4:34 PM [facility] REPOSITORY Order Comment: Order Date: 01/12/18 Order Info: [id number] - CBCD TYPE CODE TESTS RESULT OUT OF RANGE REFERENCE UNITS LAB L100.1000 4.4-11.0 K/mm3 Normal WBC 9.4 LAB L100.1200 4.2-5.4 M/mm3 Low RBC 3.75 LAB L100.1300 12.0-15.0 g/dl Low HGB 10.5 LAB L100.1400 37-47 % Low HCT 36.0 LAB L100.1500 81-99 fL Normal MCV 96.0 LAB L100.1600 27.0-32.0 pg Normal MCH 28.0 LAB L100.1700 32-36 g/gl Low MCHC 29.2 LAB L100.1810 11.6-14.6 % High RDW CV 15.6 LAB L100.1820 35.1-43.9 fl High RDW SD 54.4 LAB L100.1900 150-450 K/mm3 Normal PLT 388 LAB L100.2000 6.2-12.0 fl Normal MPV 9.3 LAB L100.2100 47-70 % High NEUT% 85.7 LAB L100.2200 19-41 % Low LY% 7.7 LAB L100.2300 0-10 % Normal MONO% 6.1 LAB L100.2400 0-5 % Normal EO% 0.3 LAB L100.2500 0-1 % Normal BASO% 0.1 LAB L100.2550 0.0-0.9 % Normal IM GRAN % 0.100 Result Comment: IG% - Immature Granulocytes (promyelocytes, myelocytes and metamyelocytes) > 1% indicates that a LEFT SHIFT is Present. LAB L100.2620 2.0-7.7 X10 3/uL High Absolute Neut 8.1 LAB L100.2720 0.83-4.51 X10 3/ul Low Absolute Lymph 0.73 Performed By: #### L100.0100, L500.2500, L503.6075, L503.6150, L503.6550, L506.0250, L503.0105 #### [facility] [address] [place], [address] BASIC METABOLIC Collected: 01/12/2018 Status: F Source: [place] PROFILE (BMP) 4:34 PM [facility] REPOSITORY Order Comment: Order Date: 01/12/18 Order Info: 0667-1 - BMP Order Info: 2500-7 - TIBC Order Info: 2498-4 - FE Order Info: 2276-4 - RITO Order Info: 2284-8 - FOLS Comments: homocysteine Is Patient Taking Vitamins or Folic Acid Supplements? Y TYPE CODE TESTS RESULT OUT OF RANGE REFERENCE UNITS LAB L501.0100 74-106 mg/dL High GLU 133 Result Comment: Fasting Glucose result greater than or equal to 126 mg/dL suggests DIABETES MELLITUS per A.D.A. criteria. Please note revised GLUCOSE reference range effective 2017. LAB L501.1000 7-18 mg/dL High BUN 30 LAB L501.1100 0.55-1.02 mg/dL High CREAT,SERUM 1.59 Result Comment: The validity of the calculated GFR AND GFRAA in patients over 70 years has not been determined. Clinical correlation is essential. LAB L501.1110 >60 mL/min Low EST GFR 33 Result Comment: Non- GFR Calc LAB L501.1115 >60 mL/min Low EST GFR - AA 40 Result Comment: GFR Calc LAB L501.1300 10-20 RATIO Normal BUN/CRE 18.9 LAB L501.2200 8.5-10.1 mg/dL CA Normal 9.0 LAB L501.5300 136-145 mmol/L NA Normal 145 LAB L501.5600 3.5-5.1 mmol/L Low K 3.3 LAB L501.5900 98-107 mmol/L CL Normal 107 LAB L501.6100 21.0-32.0 mmol/L Normal CO2 27.0 LAB L501.6200 5-15 Normal GAP 11 Performed By: #### L100.0100, L500.2500, L503.6075, L503.6150, L503.6550, L506.0250, L503.0105 #### [facility] [address] [place], [place], [address] IRON BINDING Collected: 01/12/2018 Status: F Source: [facility],TOTAL 4:34 PM [facility] REPOSITORY Order Comment: Order Date: 01/12/18 Order Info: 0667-1 - BMP Order Info: 2500-7 - TIBC Order Info: 2498-4 - FE Order Info: 2276-4 - RITO Order Info: 2284-8 - FOLS Comments: homocysteine Is Patient Taking Vitamins or Folic Acid Supplements? Y TYPE CODE TESTS RESULT OUT OF RANGE REFERENCE UNITS LAB L503.6075 250-450 ug/dL Normal TIBC 362 Performed By: #### L100.0100, L500.2500, L503.6075, L503.6150, L503.6550, L506.0250, L503.0105 #### [facility] [address] [place], [place], [address] (367) IRON Collected: 01/12/2018 Status: F Source: [place] 4:34 PM [facility] REPOSITORY Order Comment: Order Date: 01/12/18 Order Info: 666-05 - BMP Order Info: 7 - TIBC Order Info: 2497-08 - FE Order Info: 2275-08 - RITO Order Info: 2288 - FOLS Comments: homocysteine Is Patient Taking Vitamins or Folic Acid Supplements? Y TYPE CODE TESTS RESULT OUT OF RANGE REFERENCE UNITS LAB L503.6150 50-170 ug/dL Low IRON 26 Performed By: #### L100.0100, L500.2500, L503.6075, L503.6150, L503.6550, L506.0250, L503.0105 #### [facility] [address] [place], [place], [address] (832) FERRITIN Collected: 01/12/2018 Status: F Source: HOOD 4:34 PM [facility] REPOSITORY Order Comment: Order Date: 01/12/18 Order Info: 666-05 - BMP Order Info: 2499-11 - TIBC Order Info: 2497-08 - FE Order Info: 2275-08 - RITO Order Info: 2283-12 - FOLS Comments: homocysteine Is Patient Taking Vitamins or Folic Acid Supplements? Y TYPE CODE TESTS RESULT OUT OF RANGE REFERENCE UNITS LAB L503.6550 8-252 ng/mL Normal FERRITIN 39 Performed By: #### L100.0100, L500.2500, L503.6075, L503.6150, L503.6550, L506.0250, L503.0105 #### [facility] [address] [place], [place], [address] (863) FOLATES, (FOLIC ACID) Collected: 01/12/2018 Status: F Source: HOOD 4:34 PM [facility] REPOSITORY Order Comment: Order Date: 01/12/18 Order Info: 666-05 - BMP Order Info: 2499-11 - TIBC Order Info: 2497-08 - FE Order Info: 2275-08 - RITO Order Info: 2284-8 - FOLS Comments: homocysteine Is Patient Taking Vitamins or Folic Acid Supplements? Y TYPE CODE TESTS RESULT OUT OF RANGE REFERENCE UNITS LAB L506.0250 3.1-55.4 ng/mL Normal FOLATES 32.10 Performed By: #### L100.0100, L500.2500, L503.6075, L503.6150, L503.6550, L506.0250, L503.0105 #### [facility] [address] [place], [address] VITAMIN B12 Collected: 01/12/2018 Status: F Source: HOOD 4:34 PM [facility] REPOSITORY Order Comment: Order Date: 01/12/18 Order Info: 2132-9 - B12 TYPE CODE TESTS RESULT OUT OF RANGE REFERENCE UNITS LAB L503.0105 211-911 pg/mL Normal Vitamin B12 497 Performed By: #### L100.0100, L500.2500, L503.6075, L503.6150, L503.6550, L506.0250, L503.0105 #### [facility] [address] [place], [place], [address] HOMOCYSTEINE Collected: 01/12/2018 Status: F Source: [place] 4:34 PM [facility] REPOSITORY TYPE CODE TESTS RESULT OUT OF REFERENCE UNITS RANGE LAB L503.8001 3.2-10.7 umol/L HOMOCYSTEINE Normal 9.1 Performed By: #### L503.8001 #### [facility] [address] [place], [address] PROGRESS Observed: 12/09/2017 Status: COMPLETED Source: [place] 1:37 PM CLINIC OTHER CAMPUS REPOSITORY O ID: [id number] Author: Elizabeth Mixon Service: (none) Author Type: (none) Type: Progress Notes Filed: 12/09/2017 1:37 PM Note Text: The appointment was cancelled for this patient. Elizabeth Mixon CBC-COMPLETE BLOOD CNT Collected: 11/24/2017 Status: F Source: [place] NO DIFF 11:13 AM [facility] REPOSITORY TYPE CODE TESTS RESULT OUT OF RANGE REFERENCE UNITS LAB L100.1000 4.4-11.0 K/mm3 High WBC 11.5 LAB L100.1200 4.2-5.4 M/mm3 Low RBC 3.70 LAB L100.1300 12.0-15.0 g/dl Low HGB 10.9 LAB L100.1400 37-47 % Low HCT 36.4 LAB L100.1500 81-99 fL Normal MCV 98.4 LAB L100.1600 27.0-32.0 pg Normal MCH 29.5 LAB L100.1700 32-36 g/gl Low MCHC 29.9 LAB L100.1810 11.6-14.6 % High RDW CV 16.6 LAB L100.1820 35.1-43.9 fl High RDW SD 60.0 LAB L100.1900 150-450 K/mm3 Normal PLT 412 LAB L100.2000 6.2-12.0 fl Normal MPV 8.9 Performed By: #### L100.0500 #### [facility] [address] [place], [place], [address] RENAL PROFILE Collected: 11/24/2017 Status: F Source: HOOD 11:13 AM [facility] REPOSITORY TYPE CODE TESTS RESULT OUT OF RANGE REFERENCE UNITS LAB L501.0100 74-106 mg/dL Normal GLU 92 Result Comment: Please note revised GLUCOSE reference range effective 2017. LAB L501.1000 7-18 mg/dL High BUN 23 LAB L501.1100 0.55-1.02 mg/dL High CREAT,SERUM 1.16 Result Comment: The validity of the calculated GFR AND GFRAA in patients over 70 years has not been determined. Clinical correlation is essential. LAB L501.1110 >60 mL/min Low EST GFR 48 Result Comment: Non- GFR Calc LAB L501.1115 >60 mL/min Low EST GFR - AA 58 Result Comment: GFR Calc LAB L501.1300 10-20 RATIO Normal BUN/CRE 19.8 LAB L501.1800 3.2-5.0 g/dL Low ALB 2.9 LAB L501.2200 8.5-10.1 mg/dL CA Normal 8.9 LAB L501.2300 2.5-4.9 mg/dL Normal PHOS 2.6 LAB L501.5300 136-145 mmol/L NA Normal 145 LAB L501.5600 3.5-5.1 mmol/L Low K 3.1 LAB L501.5900 98-107 mmol/L CL Normal 106 LAB L501.6100 21.0-32.0 mmol/L Normal CO2 31.0 Performed By: #### L500.3600 #### [facility] [address] [place], [address] MICROALB:CREAT Collected: 11/24/2017 Status: F Source: [place]IE RATIO,RANDOM UR 11:13 AM [facility] REPOSITORY TYPE CODE TESTS RESULT OUT OF RANGE REFERENCE UNITS LAB L501.1200 NO RANGE EST. mg/dL Normal UR CREAT 80.70 LAB L502.0500 NO RANGE EST. mg/L Normal 8.1 MICROALBUMIN ,UR LAB L502.0600 <30 mg/g CRE mg/g CRE Normal 10.0 MALB:CREAT Performed By: #### L502.0250 #### [facility] [address] [place], [address] VITAMIN D,25 HYDROXY Collected: 11/24/2017 Status: F Source: [place] 11:13 AM [facility] REPOSITORY TYPE CODE TESTS RESULT OUT OF RANGE REFERENCE UNITS LAB L506.1000 29.95-100.01 ng/mL Normal Vitamin D 53.3 25-OH Result Comment: Vitamin D 25(OH) Status Range Deficiency <20 ng/mL (50nmol/L) Insuffciency 20 - 30 ng/mL (50 - 75 nmol/L) Sufficiency 30 - 100 ng/mL (75 - 250 nmol/L) Toxicity >100 ng/mL (>250 nmol/L) Performed By: #### L506.1000 #### [facility] [address] [place], [address] PTHIN Collected: 11/24/2017 Status: F Source: [place]ARIE 11:13 AM [facility] REPOSITORY TYPE CODE TESTS RESULT OUT OF RANGE REFERENCE UNITS LAB L509.1000 18.4-80.1 pg/mL Normal PTHIN 47.6 Performed By: #### L509.1000 #### [facility] [address] [place], [address] INJECTION FOR Observed: 11/10/2017 Status: F Source: [facility] [address] CATH 3:31 PM [facility] [address] REPOSITORY Performed at [facility] APPROVED BY: Phong Rush MD EXAM TITLE: ABSCESSOGRAM WITH REMOVAL OF DRAINAGE CATHETER DATE: 11/10/2017 15:17 COMPARISON: Previous abscessogram was from November 03 and 2017 CLINICAL INDICATION/HISTORY: The patient has a history of diverticulitis. The patient developed a diverticular abscess. The patient previously underwent CT-guided placement of a drainage catheter. The patient presents for evaluation of progress in resolution of the abscess. TECHNIQUE: Under fluoroscopic guidance contrast was injected through the abscess drain and after spot imaging as much of the contrast was removed as was possible. The catheter was cut and removed and a pressure dressing was applied to the skin entrance site. 0 minutes and 24 seconds of fluoroscopy time was utilized for the procedure. Cine fluoroscopic images were obtained. 1 cc of Omnipaque 300 was utilized for the study. Fluoroscopy Radiation dose: Integrated dose-area product (DAP) for this visit = 10 mGy*cm. FINDINGS: The abscess cavity is contracted around the pigtail of the catheter. With further injection contrast backs up along the catheter tract. There is no evidence of any communication with bowel. IMPRESSION: Successful decompression of abscess cavity. Technically successful removal of drainage catheter. BRIEF OP NOT Observed: 11/10/2017 Status: COMPLETED Source: [place] 3:20 PM [facility] OTHER CAMPUS REPOSITORY HNO ID: [id number] Author: Phong Rush Service: Radiology Author Type: Physician Type: Brief Op Note Filed: 11/10/2017 3:21 PM Note Text: INTERVENTIONAL RADIOLOGY POST PROCEDURE NOTE DATE: 11/10/17 NAME: Dia Mccullough LOG ID: [id number] Pre-Procedure Diagnosis: Pelvic abscess with fistula Cooker Meal: Surgeon(s) and Role: * Phong Rush - Primary Procedure: Abscessogram and drainage catheter removal Anesthesia: None Findings: No residual abscess cavity or fistulous connection to bowel. Estimated Blood Loss: 0 ml Specimen: None Complications: None Post-Op/Post-Procedure Diagnosis: Pelvic abscess with fistula PROTHROMBIN TIME W/INR Collected: 11/09/2017 Status: F Source: HOOD 11:30 AM [facility] REPOSITORY TYPE CODE TESTS RESULT OUT OF REFERENCE UNITS RANGE LAB L300.4150 11.7-14.9 SECONDS High PROTIME 36.1 LAB L300.4200 High alert INR 3.6 Performed By: #### L300.3900 #### [facility] [address] [place], [address] HISTORY AND PHYSICAL Observed: 11/04/2017 Status: F Source: HOOD EXAM 7:52 PM [facility] REPOSITORY [facility] Medical Records Department [address] [place] [address] History and Physical 11/04/171948 MR#: [id number] Acct: [id number] Name: DIA MCCULLOUGH Rep #: [id number] : 1940 77 From: Alejo Ortega MD PCP: Jared Romero MD Status: DIS IN Y Location: [place] [address] History of Present Illness Date of Admission: 10/24/17 PLEASE SEE H+P SCANNED UNDER OTHER FACILITY INFORMATION 11/02/2017. Past Medical History Past Medical History (Chronic Problems): Chronic Problems Osteoarthritis (Chronic) Low back pain (Chronic) Allergic rhinitis (Chronic) Anxiety (Chronic) GERD (gastroesophageal reflux disease) (Chronic) History of bowel perforation (Chronic) History of GI bleed (Chronic) History of pulmonary embolism (Chronic) Chronic anemia (Chronic) Stage III chronic kidney disease (Chronic) Addisons disease (Chronic) Allergies amoxicillin trihydrate [From Augmentin] Adverse Reaction (Verified 10/08/17 03:17) Upset Stomach diclofenac sodium [From Arthrotec] Adverse Reaction (Verified 10/08/17 03:17) Upset Stomach doxycycline Adverse Reaction (Verified 10/08/17 03:17) Upset Stomach erythromycin base Adverse Reaction (Verified 10/08/17 03:17) Upset Stomach etodolac [From Lodine] Adverse Reaction (Verified 10/08/17 03:17) Upset Stomach flurbiprofen [From Ansaid] Adverse Reaction (Verified 10/08/17 03:17) Upset Stomach misoprostol [From Arthrotec] Adverse Reaction (Verified 10/08/17 03:17) Upset Stomach NSAIDS (Non-Steroidal Anti-Inflamma Adverse Reaction (Verified 10/08/17 03:17) Other potassium clavulanate [From Augmentin] Adverse Reaction (Verified 10/08/17 03:17) Upset Stomach rofecoxib [From Vioxx] Adverse Reaction (Verified 10/08/17 03:17) Upset Stomach Home Medications: Ambulatory Orders Medication Instructions Recorded Prednisone 5 mg PO DAILY 09/18/17 Surgical History: total knee arthroplasty, - - Back surgery. 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 Smoking Status: Never smoker - *Family History Maternal History Items: No pertinent history Paternal History Items: No pertinent history VTE Information - Inpt Only VTE Present on Admission: No - Physical Exam Vital Signs Temp Pulse Resp BP Pulse Ox 98.1 F 71 18 126/83 H 95 10/31/17 09:11 10/31/17 09:11 10/31/17 09:11 10/31/17 09:11 10/31/17 09:11 Oxygen Delivery Method Room Air Weight: 65.09 kg Body Mass Index (BMI) 28.2 Assessment/Plan All Active Problems Pulmonary emboli (Acute) DVT (deep venous thrombosis) (Acute) Debility (Acute) 11/04/171951 <Electronically signed by Alejo Ortega MD> Date Alejo Ortega MD Cosigner Signature: Date (if applicable) CC: Jared Romero MD; Alejo Ortega MD Signed INJECTION FOR Observed: 11/03/2017 Status: F Source: [facility] 12:24 PM [facility] [address] REPOSITORY Performed at [facility] APPROVED BY: Nathaniel Betancur MD EXAM TITLE: ABSCESSOGRAM DATE: 11/03/2017 11:29 COMPARISON: ] 10/27/2017, 10/17/2017. CT of the pelvis dated 10/27/[address] of the abdomen and pelvis dated 10/08/2017. CLINICAL INDICATION/HISTORY: The patient has a history of diverticulitis. The patient developed a diverticular abscess. The patient previously underwent CT-guided placement of a drainage catheter. T he patient presents for evaluation of progress in resolution of the abscess. FINDINGS: The patient was placed in the supine position. The patient's catheter has been capped since there is evaluation. The patient has not been flushing the catheter. The patient denies any drainage around the catheter. Contrast was instilled through the indwelling catheter under fluoroscopic observation. This demonstrated a small residual abscess cavity adjacent to the distal tip of the catheter. This is slightly de creased in size. There appears to be a thin threadlike fistula from the inferior aspect of the residual abscess cavity to the adjacent bowel. Aspiration of fluid from the abscess yielded opaque cloudy yellowish fluid. Approximately 4 to 5 cc was obtained. The abscess was then irrigated with 30 cc of sterile normal saline. The catheter was then returned to grenade suction drainage. The site was dressed in a sterile manner. The patient tolerated the procedure well. No immediate complications were noted. Due to the presence of somewhat purulent fluid the drainage catheter was returned to grenade suction drainage. The pat ient is to continue to not flush the catheter. The patient is to have a follow- up abscessogram in approximately one week. IMPRESSION: 1. Slight interval decrease in the size of the abscess cavity. 2. The previously noted fistula is decreased to a threadlike fistula. 3. There appears to be some persistent purulent fluid within the abscess cavity. The catheter was returned to grenade suction drainage. Fluoroscopic Time: 1 minutes 0 seconds Radiation Exposure: 8 mGy Volume of Contrast: 10 cc of Omnipaque 300 Number of Images: 6 BRIEF OP NOT Observed: 11/03/2017 Status: COMPLETED Source: [place] 12:15 PM CLINIC OTHER CAMPUS REPOSITORY HNO ID: [id number] Author: Nathaniel Betancur Service: Interventional Radiology Author Type: Physician Type: Brief Op Note Filed: 11/03/2017 6:40 PM Note Text: BRIEF OPERATIVE / PROCEDURE NOTE LOG ID: [id number] Surgery/Procedure Date: 11/03/2017 Incision/Procedure Start Time: Incision Close/Procedure End Time: Surgeon(s)/Proceduralist(s) and Business Planner(s): Surgeon(s) and Role: * Phong Rush - Primary No Additional Staff Procedure(s): Abscessogram Anesthesia: None Findings: The patient's abscess drainage catheter has been capped. The patient denies leakage around the catheter. Abscessogram shows further interval decrease in size of the abscess cavity. There is a faint thread-like fistula wit the adjacent colon present. Aspiration of the abscess fluid yields opaque cloudy yellowish fluid. The abscess was irrigated with 30 cc of sterile normal saline. Rather than capping the catheter, the catheter was returned to grenade suction. The patient is instructed to not flush the catheter. The patient is to have a follow up abscessogram in 1 week. Estimated Blood Loss: 0 ml Specimens: None Complications: None Pre-Op/Pre-Procedure Diagnosis: diverticulitis with abscess Post-Op/Post-Procedure Diagnosis: same The full report is located under Imaging in the Radiology report for the procedure. SIGNATURE: Nathaniel Betancur MD PATIENT NAME: Dia Mccullough DATE: November 03, 2017 TIME: 6:21 PM PAGER/CONTACT #: [phone] HOSP Observed: 11/03/2017 Status: COMPLETED Source: [place] 12:00 AM CLINIC OTHER CAMPUS REPOSITORY Patient:Dia Mccullough MRN: <[id number]> Height:5' 0(1.524 m) Weight:No patient weight recorded within the last 30 days. Outpatient Medications as of 11/10/17: warfarin (COUMADIN) 2 mg tablet metoprolol tartrate, short acting, (LOPRESSOR) 25 mg tablet polyethylene glycol 3350 (MIRALAX, GLYCOLAX) 17 gram packet predniSONE (DELTASONE) 2.5 mg tablet Omeprazole 40 mg capsule predniSONE (DELTASONE) 5 mg tablet ondansetron orally disintegrating (ZOFRAN ODT) 4 mg disintegrating tablet Admission/Clinic Administered Medications as of 11/10/17: Patient has no admission medications. 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.4] Asthma [J45.909] Vitamin D deficiency [E55.9] Osteoarthrosis, unspecified whether generalized or localized, hand [M19.049] Osteoarthrosis, unspecified whether generalized or localized, ankle and foot [M19.079] Fibromyalgia [M79.7] Sicca 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.00] Acute thromboembolism of deep veins of lower extremity (HCC) [I82.409] Inflammatory polyarthritis (HCC) [M06.4] DVT (deep venous thrombosis) (HCC) [I82.409] Pulmonary embolism, bilateral (HCC) [I26.99] Pulmonary emboli (HCC) [I26.99] PMR (polymyalgia rheumatica) (HCC) [M35.3] Generalized osteoarthritis [M15.9] CKD (chronic kidney disease) stage 3, GFR 30-59 ml/min [N18.3] Venous insufficiency (chronic) (peripheral) [I87.2] 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] Perforated bowel (HCC) [K63.1] 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] Intra-abdominal abscess (HCC) [K65.1] Traumatic hematoma of left lower leg [S80.12XA] Leg hematoma, left, initial encounter [S80.12XA] Pelvis, female abscess [N73.9] Allergies: Ansaid [Flurbiprofen] Arthrotec 50 [Diclofenac-Misoprostol] Augmentin [Amoxicillin-Pot Clavulanate] Doxycycline Erythromycin Grass Pollen Lodine [Etodolac] Nsaids (Non-Steroidal Anti-Inflammatory Drug) Poison Lisa Vioxx [Rofecoxib] Date Verified: 11/10/17 Lab Values Lab Value Units Date High Low POTA* 4.3 mEq/L 10/17/2017 5.1 3.5 MOLINA* 29.3 % 10/17/2017 44.9 34.1 Progress Notes ([facility]): [place] 10/31/2017 9:21 AM [address] Mrs. Mccullough called to change her appointment from 11/15 to 11/23 due to transportation issues. She also says she is at rehab and they are telling her she can stop her antibiotics. She wanted to know how long she should be on these antibiotics. There is not a stop date that I can see on Dr. Wei's notes. She says the radiologist told her last week that the abscess was gone but there is a fissure and he left a drain in for another week. Advised her will check with one of the other physicians since Dr. Wei is out of the office and call her back. [place]. Gold Ramos MD 10/31/2017 10:21 AM Signed I wrote a prescription to continue all 3 oral antibiotics meaning the Augmentin Cipro and fluconazole through November 06, 2017. We tend to go 10 days beyond radiographic resolution of an abscess because they can only image so far down and is still can be microscopic foci of bacteria and he just. She decided to stop the antibiotic before this venue will have to handle any repercussions if this recurs to early. He can also check the next abscessogram when it comes out this week as well. [place] 10/31/2017 11:15 AM Signed Faxed written RX to transitional care unit at [facility] at [phone] and spoke to Alisa regarding this. Advised her to call back if any questions. Will scan written RX into [employer]. [place]. DOWNTIME REPORT Observed: 11/02/2017 Status: F Source: HOOD 1:47 PM [facility] Medical Records Department [address] [place] [address] Downtime Report MR#: [id number] Acct: [id number] Name: DIA MCCULLOUGH Rep #: [id number] : 1940 77 From: Philip Damon MD PCP: Jared Romero MD Status: DIS IN This patient was seen during an EMR downtime October 17, 2017 - October 24, 2017. This patient may have a combination of paper and electronic documentation or all paper documentation. All documentation is viewable within the e-chart portion of [facility] for each patient visit. HOME HEALTH PROGRESS Observed: 10/31/2017 Status: F Source: HOOD NOTE 7:54 AM [facility] Medical Records Department [address] [place] [address] Home Health Progress Note Qqvt-wi-Smic Encounter Encounter Date: 10/28/17 1353 MR#: [id number] Acct: [id number] Name: DIA MCCULLOUGH Rep #: [id number] : 1940 77 From: Alejo Ortega MD PCP: Jared Romero MD Status: ADM IN Location: [place] [id number] ADDENDUM by Alejo Ortega MD on 10/31/17 at 0753 Home Care Nurse to perform INR testing, send results to Dr. Jared Romero. 10/31/17 0754 <Electronically signed by Alejo Ortega MD> Date Alejo Ortega MD cc: * Signed Home Health Note - Plan Overview of reason of hospitalization: The patient is a 77 year old Female with below past medical history hospitalized for bilateral lower extremity DVT, bilateral pulmonary embolism, treated with LMWH, NOAC avoided due to recent GI bleed, Venofer given for iron deficiency anemia, then intrabdominal abscess, admitted to TCU with debility, here for rehabilitation, strengthening, prior to discharge home. On TCU, resident was on triple antibiotics for intraabdominal abscess, INR supratherapeutic, warfarin held, will defer to primary care doctor to resume warfarin for treatment of deep vein thrombosis, pulmonary embolism. Discharge home alone, with Home Health Services. Problems: Complete List of Medical Problems Pulmonary emboli (Acute) DVT (deep venous thrombosis) (Acute) Debility (Acute) Osteoarthritis (Chronic) Low back pain (Chronic) Allergic rhinitis (Chronic) Anxiety (Chronic) GERD (gastroesophageal reflux disease) (Chronic) History of bowel perforation (Chronic) History of GI bleed (Chronic) History of pulmonary embolism (Chronic) Chronic anemia (Chronic) Stage III chronic kidney disease (Chronic) Addisons disease (Chronic) - Requirements and Reasons Disciplines Needed/Ordered: Correction, Physical Therapy Reason for Disciplines: Disease Specific Monitoring/education, Medication Management/Knowledge Deficit, Wound Care, Gait Training, Stair Training, Fall Prevention, Home Safety/Equipment Instruction, Balance and/or Posture Training, Transfer Training Related To: Limited/Poor Endurance, Shortness of Breath with Activity, Physical Impairments, Unsteady Gait/Balance, Fall Risk Patient is unable to leave the home: Without Aid of Supportive Devices (crutches, cane, wheelchair, walker), Without the assistance of another person - Additional Disciplines Additional Disciplines Needed/Ordered: Occupational Therapy 10/28/17 1354 <Electronically signed by Alejo Ortega MD> Date Alejo Ortega MD Cosigner Signature (if indicated): Date CC: Signed PROTHROMBIN TIME W/INR Collected: 10/31/2017 Status: F Source: [place] 5:20 AM [facility] REPOSITORY TYPE CODE TESTS RESULT OUT OF RANGE REFERENCE UNITS LAB L300.4150 11.7-14.9 SECONDS High PROTIME 24.2 LAB L300.4200 Normal INR 2.2 Performed By: #### L300.3900 #### [facility] [address] [place], [place], [address] PROTHROMBIN TIME W/INR Collected: 10/30/2017 Status: F Source: HOOD 6:20 AM [facility] REPOSITORY TYPE CODE TESTS RESULT OUT OF RANGE REFERENCE UNITS LAB L300.4150 11.7-14.9 SECONDS High PROTIME 27.6 LAB L300.4200 Normal INR 2.6 Performed By: #### L300.3900 #### [facility] [address] [place], [address] PROTHROMBIN TIME W/INR Collected: 10/29/2017 Status: F Source: [place] 7:50 AM [facility] REPOSITORY TYPE CODE TESTS RESULT OUT OF RANGE REFERENCE UNITS LAB L300.4150 11.7-14.9 SECONDS High PROTIME 32.4 LAB L300.4200 Normal INR 3.1 Performed By: #### L300.3900 #### [facility] [address] [place], [address] DISCHARGE SUMMARY Observed: 10/28/2017 Status: F Source: HOOD 1:53 PM [facility] REPOSITORY [facility] Medical Records Department [address] [place] [address] Discharge Summary 10/28/17 1348 MR#: [id number] Acct: [id number] Name: DIA MCCULLOUGH Rep #: [id number] : 1940 77 From: Alejo Ortega MD PCP: Jared Romero MD Status: ADM IN Y Location: [place] [address] Discharge Date and Diagnosis Date of Admission: 09/21/17 Date of Discharge: 10/31/17 - Secondary Discharge Diagnosis Chronic Problems Osteoarthritis (Chronic) Low back pain (Chronic) Allergic rhinitis (Chronic) Anxiety (Chronic) GERD (gastroesophageal reflux disease) (Chronic) History of bowel perforation (Chronic) History of GI bleed (Chronic) History of pulmonary embolism (Chronic) Chronic anemia (Chronic) Stage III chronic kidney disease (Chronic) Addisons disease (Chronic) Hospital Course and Treatment Imaging Results: 10/24/17 16:51 Diet: Regular Diet Food consistency:: Regular Liquid Consistency:: Regular/Thin Is pt able to select menu?: Yes Diet Comments: Cardiac, Low Sodium Labs (Last 48 Hours) PT 36.2 H 34.5 H 33.2 H INR 3.6 H* 3.4 3.2 Consultations 10/24/17 Consult: Onc/Wound/video game engineer Routine Comment: Reason for Consult:: lle hematoma Operations: None Procedures: None Summary of Care Provided: The patient is a 77 year old Female with below past medical history hospitalized for bilateral lower extremity DVT, bilateral pulmonary embolism, treated with LMWH, NOAC avoided due to recent GI bleed, Venofer given for iron deficiency anemia, then intrabdominal abscess, admitted to TCU with debility, here for rehabilitation, strengthening, prior to discharge home. On TCU, resident was on triple antibiotics for intraabdominal abscess, INR supratherapeutic, warfarin held, will defer to primary care doctor to resume warfarin for treatment of deep vein thrombosis, pulmonary embolism. Discharge home alone, with Home Health Services. Discharge Diet: No Restrictions Discharge Activity: Return to Normal Activity, May Shower, Use Walker Weight Bearing Status: Weight bearing as tolerated Call your doctor if you observe: Fever of 101 or Higher, Inability to urinate, Inability to have a bowel movement, Shortness of breath, Chest pain, Uncontrolled pain Home Medications: Medications to take at Discharge Prednisone 5 mg PO DAILY 09/18/17 Acetaminophen [Tylenol] 1,000 mg PO Q8H PRN PRN tablet 10/28/17 Iron Polysaccharide Complex [Ferrex 150] 150 mg PO DAILYCM capsule 10/28/17 Menthol/Lanolin/Calamine/Znox [Calmoseptine Ointment] 1 applic TOPICAL BID@0600,2200 tube 10/28/17 Metoprolol Tartrate [Lopressor (beta ab)] 25 mg PO BID #60 tab 10/28/17 Pantoprazole Sodium [Protonix] 40 mg PO DAILY #30 tab 10/28/17 Following Prescrptions Were Given to Patient: Pantoprazole Sodium [Protonix] 40 mg PO DAILY #30 tab Metoprolol Tartrate [Lopressor (beta ab)] 25 mg PO BID #60 tab Other Amb Orders: Prothrombin Time w/INR Time Frame: 1 Day, Location: Laboratory Primary Care Physician: Jared Romero MD [Primary Care Provider] - Please follow up with your Primary Care Physician in: 1 week. Please Follow Up With: Dr Ferro Please Follow Up With: Dr Islas When: 2 weeks. Disposition: Home with Home Health Minutes spent on discharge:: 35 Patient Condition:: Stable Medical Necessity - Tobacco Use Smoking Status: Never smoker Meaningful Use Info Meaningful Use Diagnoses (Choose all that apply): None applicable 10/28/17 1353 <Electronically signed by Alejo Ortega MD> Date Alejo Ortega MD Cosigner Signature (if applicable): Date CC: Jared Romero MD; Alejo Ortega MD Signed DISCHARGE INSTRUCTION Observed: 10/28/2017 Status: F Source: ANNMARIE 1:48 PM [facility] REPOSITORY [facility] Medical Records Department [address] [place] [address] Instructions for Home/Discharge Instructions 10/28/17 1347 MR#: [id number] Acct: [id number] Name: DIA MCCULLOUGH Rep #: [id number] : 1940 77 From: Alejo Ortega MD PCP: Jared Romero MD Status: ADM IN You will use the following diet at home:: No restrictions, Regular Your food should be the consistency of: Regular Your liquids should be the consistency of: Regular/Thin Discharge Activity: Return to Normal Activity, May Shower, Use Walker Weight Bearing Status: Weight bearing as tolerated Call your doctor if you observe: Fever of 101 or Higher, Inability to urinate, Inability to have a bowel movement, Shortness of breath, Chest pain, Uncontrolled pain Allergies/Adverse Reactions: Allergies amoxicillin trihydrate [From Augmentin] Adverse Reaction (Verified 10/08/17 03:17) Upset Stomach diclofenac sodium [From Arthrotec] Adverse Reaction (Verified 10/08/17 03:17) Upset Stomach doxycycline Adverse Reaction (Verified 10/08/17 03:17) Upset Stomach erythromycin base Adverse Reaction (Verified 10/08/17 03:17) Upset Stomach etodolac [From Lodine] Adverse Reaction (Verified 10/08/17 03:17) Upset Stomach flurbiprofen [From Ansaid] Adverse Reaction (Verified 10/08/17 03:17) Upset Stomach misoprostol [From Arthrotec] Adverse Reaction (Verified 10/08/17 03:17) Upset Stomach NSAIDS (Non-Steroidal Anti-Inflamma Adverse Reaction (Verified 10/08/17 03:17) Other potassium clavulanate [From Augmentin] Adverse Reaction (Verified 10/08/17 03:17) Upset Stomach rofecoxib [From Vioxx] Adverse Reaction (Verified 10/08/17 03:17) Upset Stomach Medications to take at Discharge Prednisone 5 mg PO DAILY 09/18/17 Acetaminophen [Tylenol] 1,000 mg PO Q8H PRN PRN tablet 10/28/17 Iron Polysaccharide Complex [Ferrex 150] 150 mg PO DAILYCM capsule 10/28/17 Menthol/Lanolin/Calamine/Znox [Calmoseptine Ointment] 1 applic TOPICAL BID@0600,2200 tube 10/28/17 Metoprolol Tartrate [Lopressor (beta ab)] 25 mg PO BID #60 tab 10/28/17 Pantoprazole Sodium [Protonix] 40 mg PO DAILY #30 tab 10/28/17 The following prescriptions were given: Pantoprazole Sodium [Protonix] 40 mg PO DAILY #30 tab Metoprolol Tartrate [Lopressor (beta ab)] 25 mg PO BID #60 tab Orders to be completed after discharge: Prothrombin Time w/INR Time Frame: 1 Day, Location: Laboratory Primary Care Physician: Jared Romero MD [Primary Care Provider] - Please follow up with your Primary Care Physician in: 1 week. Please Follow Up With: Dr Frero Please Follow Up With: Dr Islas When: 2 weeks. Proposed Discharge Date: 10/31/17 10/28/17 1348 <Electronically signed by Alejo Ortega MD> Date Alejo Ortega MD CC: Jared Romero MD; Akira Cruz NP PROTHROMBIN TIME W/INR Collected: 10/28/2017 Status: F Source: HOOD 11:10 AM [facility] REPOSITORY Order Comment: MARLEY PABLO PT WAS IN THERAPY. TYPE CODE TESTS RESULT OUT OF RANGE REFERENCE UNITS LAB L300.4150 11.7-14.9 SECONDS High PROTIME 33.2 LAB L300.4200 Normal INR 3.2 Performed By: #### L300.3900 #### [facility] [address] [place], [address] PROTHROMBIN TIME W/INR Collected: 10/28/2017 Status: F Source: HOOD 5:20 AM [facility] REPOSITORY TYPE CODE TESTS RESULT OUT OF RANGE REFERENCE UNITS LAB L300.4150 11.7-14.9 SECONDS High PROTIME 34.5 LAB L300.4200 Normal INR 3.4 Performed By: #### L300.3900 #### [facility] [address] [place], [address] INJECTION FOR Observed: 10/27/2017 Status: F Source: [facility] DR[facility] CATH 12:59 PM [facility] [id number] REPOSITORY Performed at [facility] APPROVED BY: Phong Rush MD EXAM TITLE: ABSCESSOGRAM DATE: 10/27/2017 11:43 COMPARISON: CT scan of the pelvis earlier the same day and abscessogram from October 17, 2017 CLINICAL INDICATION/HISTORY: The patient is a 77-year-old female with diverticulitis and abscess formation who has been treated with percutaneous drainage catheter placement. Drainage has significantl y reduced with the patient only returning volumes equal to that of the flush. The patient is flushing twice a day. The patient's recent CT scan of the pelvis demonstrates complete decompression of the pelvic abscess. Fluoroscopy Radiation dose: Integrated dose-area product (DAP) for this visit = 22.5 mGy*cm. TECHNIQUE: Under fluoroscopic guidance contrast was injected through the abscess drain and after spot imaging as much of the contrast was removed as was possible. 5 cc of Omnipaque 300 was utilized fo r the study. 0 minutes and 36 seconds of fluoroscopy time was utilized for the procedure. Cine fluoroscopic images were obtained. FINDINGS: The abscess cavity is decompressed around the pigtail. There is a persistent fistulous communication directly to the sigmoid colon. IMPRESSION: There is further decompression of the pelvic abscess. There is a persistent fistulous connection to the sigmoid colon. The patient will stop flushing the catheter and continue to Toby- Sherwood suction bulb for one week and return for repeat abscessogram. BRIEF OP NOT Observed: 10/27/2017 Status: COMPLETED Source: [place] 12:01 PM [facility] OTHER [facility]AMPUS REPOSITORY HNO ID: [id number] Author: Phong Rush Service: Radiology Author Type: Physician Type: Brief Op Note Filed: 10/27/2017 12:05 PM Note Text: INTERVENTIONAL RADIOLOGY POST PROCEDURE NOTE DATE: 10/27/17 NAME: Dia Mccullough LOG ID: [id number] Pre-Procedure Diagnosis: Diverticular abscess Cooker Meal: Surgeon(s) and Role: * Phong Rush - Primary Procedure: Abscessogram Anesthesia: None Findings: Abscess decompressed. Fistulous connection to sigmoid colon. 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 Plan: Stop flushing. Repeat abscessogram in [address] PELVIS WITH Observed: 10/27/2017 Status: F Source: [facility] 10:46 AM [facility] REPOSITORY Performed at [facility] APPROVED BY: Phong Rush MD EXAM TITLE: CT PELVIS WITH CONTRAST DATE: 10/27/2017 10:30 CLINICAL HISTORY: The patient is a 77-year-old female with diverticular abscess treated with percutaneous drainage. TECHNIQUE: CT of the pelvis was performed using standard technique, scanning from just above the dome of the diaphragm to the iliac crest. MQ: [id number] Contrast: IV: 150 ml of Omnipaque 300 Oral: None CT Radiation dose: Integrated dose-length product (DLP) for this visit = 392.98 mGy*cm. CT Dose Reduction Employed: Automated exposure control (AEC) was used. COMPARISON: Outside CT scan from October 10, 2017 FINDINGS: The percutaneous drain is in place with the pigtail at the site of the previous bed of the abscess. The abscess cavity appears to be decompressed. It is in direct continuity with the sigmoi d colon. There is no significant fibrofatty inflammatory changes. The visualized bowel is normal. The uterus is slightly retroverted and slightly to the left of midline. There is no free fluid in th e cul-de-sac. There is a right total hip replacement and some posterior fixation hardware and decompressive laminectomy in the lower lumbar spine. No other abnormalities are identified. IMPRESSION: There is decompression of the pelvic abscess. No new abnormalities have developed in the pelvis. PROTHROMBIN TIME W/INR Collected: 10/27/2017 Status: F Source: [place] 5:20 AM [facility] REPOSITORY TYPE CODE TESTS RESULT OUT OF REFERENCE UNITS RANGE LAB L300.4150 11.7-14.9 SECONDS High PROTIME 36.2 LAB L300.4200 High alert INR 3.6 Result Comment: CRITICAL VALUE VERIFIED. CALLED TO ADELA MEYER 10/27/17 0636 Kristen Heredia. RESULTS READ BACK BY SAME . Performed By: #### L300.3900 #### [facility] [address] [place], [address] HOSP Observed: 10/27/2017 Status: COMPLETED Source: [place] 12:00 AM [facility]INIC OTHER CAMPUS REPOSITORY Patient:Dia Mccullough MRN: <[id number]> Height:5' 0(1.524 m) Weight:155 lb 13.8 oz (70.7 kg) Outpatient Medications as of 11/03/17: warfarin (COUMADIN) 2 mg tablet fluconazole (DIFLUCAN) 200 mg tablet metoprolol tartrate, short acting, (LOPRESSOR) 25 mg tablet polyethylene glycol 3350 (MIRALAX, GLYCOLAX) 17 gram packet amoxicillin-clavulanic acid (AUGMENTIN) 875-125 mg per tablet ciprofloxacin HCl (CIPRO) 500 mg tablet predniSONE (DELTASONE) 2.5 mg tablet Omeprazole 40 mg capsule predniSONE (DELTASONE) 5 mg tablet ondansetron orally disintegrating (ZOFRAN ODT) 4 mg disintegrating tablet Admission/Clinic Administered Medications as of 11/03/17: Patient has no admission medications. 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.4] Asthma [J45.909] Vitamin D deficiency [E55.9] Osteoarthrosis, unspecified whether generalized or localized, hand [M19.049] Osteoarthrosis, unspecified whether generalized or localized, ankle and foot [M19.079] Fibromyalgia [M79.7] Sicca 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.00] Acute thromboembolism of deep veins of lower extremity (HCC) [I82.409] Inflammatory polyarthritis (HCC) [M06.4] DVT (deep venous thrombosis) (HCC) [I82.409] Pulmonary embolism, bilateral (HCC) [I26.99] Pulmonary emboli (HCC) [I26.99] PMR (polymyalgia rheumatica) (HCC) [M35.3] Generalized osteoarthritis [M15.9] CKD (chronic kidney disease) stage 3, GFR 30-59 ml/min [N18.3] Venous insufficiency (chronic) (peripheral) [I87.2] 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] Perforated bowel (HCC) [K63.1] 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] Intra-abdominal abscess (HCC) [K65.1] Traumatic hematoma of left lower leg [S80.12XA] Leg hematoma, left, initial encounter [S80.12XA] Pelvis, female abscess [N73.9] Allergies: Ansaid [Flurbiprofen] Arthrotec 50 [Diclofenac-Misoprostol] Augmentin [Amoxicillin-Pot Clavulanate] Doxycycline Erythromycin Grass Pollen Lodine [Etodolac] Nsaids (Non-Steroidal Anti-Inflammatory Drug) Poison Lisa Vioxx [Rofecoxib] Date Verified: 11/03/17 Lab Values Lab Value Units Date High Low POTA* 4.3 mEq/L 10/17/2017 5.1 3.5 MOLINA* 29.3 % 10/17/2017 44.9 34.1 Progress Notes ([facility]): [place] 10/31/2017 9:21 AM Signed Mrs. Mccullough called to change her appointment from 11/15 to 11/23 due to transportation issues. She also says she is at rehab and they are telling her she can stop her antibiotics. She wanted to know how long she should be on these antibiotics. There is not a stop date that I can see on Dr. Wei's notes. She says the radiologist told her last week that the abscess was gone but there is a fissure and he left a drain in for another week. Advised her will check with one of the other physicians since Dr. Wei is out of the office and call her back. [place]. Gold Ramos MD 10/31/2017 10:21 AM Signed I wrote a prescription to continue all 3 oral antibiotics meaning the Augmentin Cipro and fluconazole through November 06, 2017. We tend to go 10 days beyond radiographic resolution of an abscess because they can only image so far down and is still can be microscopic foci of bacteria and he just. She decided to stop the antibiotic before this venue will have to handle any repercussions if this recurs to early. He can also check the next abscessogram when it comes out this week as well. [place] 10/31/2017 11:15 AM Signed Faxed written RX to transitional care unit at [facility] at [phone] and spoke to Alisa regarding this. Advised her to call back if any questions. Will scan written RX into EPIC. [place]. Progress Notes (): Gold Clemens MD 10/08/2017 11:51 PM Signed [facility]PARTMENT OF HOSPITAL MEDICINE [facility] HISTORY AND PHYSICAL EXAMINATION SERVICE DATE: 10/08/2017 10:57 PM PRIMARY CARE PHYSICIAN: Mallorie Wheeler MD Subjective CHIEF COMPLAINT: Left leg hematoma HPI: This is a 77 year old female who has a complicated recent medical history starting August 24 when she was diagnosed with diverticular abscess/perforation and septic shock. She was brought here for surgical eval from [place], but declined operative intervention and requested to go home with hospice on PO antibiotics. She took 2 weeks of antibiotics, had stabilization and improvement of her symptoms, but subsequently developed hematemesis due to anticoagulation and presumed PUD. She was admitted to inpatient hospice residence, but with stopping her anticoagulation, hematemesis stopped and she was discharged from inpatient hospice. She then had new DVT and PE developing off anticoagulation and was re-hospitalized, with initiation of Lovenox at full dose. She spent some time in the transitional care unit and was sent home 1 week ago on Lovenox. Yesterday she noted an area on her left foot/pretibial area of bruise/oozing blood, but it worsened and progressed to cover much of the pretibial area with more bleeding, and she went to the [place] ED this morning. She was discharged back home after wound evaluation and no finding of circulatory compromise. Her son then brought her back to the ED with a concern over abdominal pain and insistent on hospitalization per [place] ED notes. Eval included CT abdomen which showed a 5 cm abscess/phlegmon in the same area as the original perforation, and she was recommended to be transferred to have IR evaluation of percutaneous drainage. Patient denies any abdominal pain at any time recently, and has no fever/chills/nausea/vomiting. She is eating and drinking without difficulty and having relatively formed stools. Mild pain left leg. 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 - Inflammatory polyarthropathy - Normocytic anemia - PE (pulmonary thromboembolism) ([facility]) 01/05/14 Bilat, extensive - Pulmonary embolism without acute cor pulmonale - Pure hypercholesterolemia - Sicca syndrome - Unspecified essential hypertension - Unspecified gastritis and gastroduodenitis without mention of hemorrhage - Urinary tract infection, site not specified - Venous insufficiency (chronic) (peripheral) - Vitamin D deficiency PAST SURGICAL HISTORY Procedure Laterality Date - CATARACT EXTRACTION HX Right - PARTIAL HIP REPLACEMENT Right 04/2013 - PAST SURGICAL HISTORY OF hernia repair - PAST SURGICAL HISTORY OF 11/2012 L3-L4 laminectomy and fusion - PAST SURGICAL HISTORY OF 11/2012 Back fusion surgery - TOTAL HIP REPLACEMENT 05/10/2013 right hip replacement - VENOUS DUPLEX BOTH LOWER EXTREMITIES 05/12/2016 FAMILY HISTORY Problem Relation Age of Onset - Diabetes Mother - Heart Mother - Heart Father - Denies family history of malignancy or thromboembolism. [OTHER] Other Social History Substance Use Topics - Smoking status: Never Smoker - Smokeless tobacco: Never Used - Alcohol use No MEDICATIONS Please see reconciled medication list in [employer] for details on home medications. ALLERGIES Allergen Reactions - Ansaid [Flurbiprofe* GI Upset Ulcer - Arthrotec 50 [Diclo* GI Upset Cytotec upset stomach more than just the voltaren by itself - Augmentin [Amoxicil* GI Upset tolerates cephalexin - Doxycycline GI Upset - Erythromycin GI Upset - Grass Pollen - Lodine [Etodolac] - Nsaids (Non-Steroid* Unknown - Poison Lisa - Vioxx [Rofecoxib] GI Upset COMPLETE REVIEW OF SYSTEMS: PAIN ASSESSMENT: CURRENTLY HAVING PAIN; Left leg mild pain GENERAL: Fatigue HEENT: Negative for frequent or significant headaches, No changes in hearing or vision, no nose bleeds or other nasal problems NECK: Negative for lumps, goiter, pain and significant neck swelling RESPIRATORY: Negative for cough, hemoptysis, wheezing, COPD, dyspnea or shortness of breath CARDIOVASCULAR: Negative for chest pain, leg swelling, hypertension, CHF or palpitations GI: No nausea, vomiting, or diarrhea and Negative for abdominal discomfort, blood in stools or black stools, change in bowel habit, heart burn : No history of dysuria, frequency or incontinence MUSCULOSKELETAL: see HPI SKIN: See HPI PSYCH: Negative for sleep disturbance, mood disorder and recent psychosocial stressors HEMATOLOGY/LYMPHOLOGY: Positive for bruises easily ENDOCRINE: Negative for cold or heat intolerance, polyuria, polydipsia and goiter NEURO: No history of headaches, syncope, paralysis, seizures or tremors Objective PHYSICAL EXAM: GENERAL: Alert, no distress, cooperative SKIN: left leg dressing from knee to midfoot not disturbed at this time, no blood on bandages HEAD/SINUSES: No significant findings EYES: PERRLA, EOMI OROPHARYNX: Lips, mucosa, and tongue normal. Teeth and gums normal. Oropharynx normal. NECK: No jugulovenous distention, No carotid bruits, Carotid pulse normal contour, Supple LUNGS: Lungs clear to auscultation, Good diaphragmatic excursion CARDIAC: Normal S1 and S2; no rubs, murmurs, or gallops ABDOMEN: Abdomen soft, non-tender, BS normal, No masses or organomegaly EXTREMITIES: chronic lymphedema changes both legs NEURO: Grossly normal cognition, motor function, and cranial nerves III-XII PULSES: 2+ radial, 2+ dorsalis pedis, 2+ carotid, good cap refill in left foot Patient Vitals for the past 24 hrs: BP Temp Temp src Pulse Resp SpO2 Height Weight 10/08/171958 - - - 114 - - - - 10/08/171950 113/71 36.7 ?C (98.1 ?F) Temporal Art (!) 137 18 97 % 152.4 cm (5') 68 kg (150 lb) Body mass index is 29.29 kg/m?. Assessment/Plan Principal Problem: Intra-abdominal abscess (HCC) POA: Yes Assessment AND Plan: Patient survived sepsis from perforation with only oral antibiotics, finished course 4 weeks ago and has not had symptoms of sepsis/fever/chills or abdominal pain since then. The findings on CT scan are likely residual fluid collection but the clinical scenario does not suggest active infection, nor do I think that percutaneous drainage would offer any improvement to her situation since she is nontender to exam and is not having pain. No need for intervention Active Problems: DVT (deep venous thrombosis) (HCC) POA: Yes Assessment AND Plan: Currently on Lovenox and will continue but at a lower dose since having bleeding complications with left leg hematoma Pulmonary emboli (HCC) POA: Yes Assessment AND Plan: On lovenox, but will reduce dose as above CKD (chronic kidney disease) stage 3, GFR 30-59 ml/min POA: Yes Assessment AND Plan: stable Cr compared to previous values. Will continue IVF and check labs again in AM Venous insufficiency (chronic) (peripheral) POA: Yes Assessment AND Plan: chronic and stable Curry disease POA: Yes Assessment AND Plan: continue home prednisone routine TID dosing. Traumatic hematoma of left lower leg POA: Yes Assessment AND Plan: will have wound evaluation, but no signs compartment syndrome and not suspicious of infection at this time. Resolved Problems: * No resolved hospital problems. * Advanced Care Planning Purpose of Encounter: Advanced care planning in light of Intra-abdominal abscess (HCC) Parties in Attendance: Patient, Dr. Gold Clemens MD, Decisional Capacity: full Code Status: DNR-CCA Time Spent on Advance Care Plannin minutes Total time 50 minutes during this encounter, including chart review, discussion with nursing staff and/or other providers, documentation, work order detailer, and [id number] time with patient. Of this time, greater than 50% was spent counseling and coordinating care. Counseling elements include educating the patient about diagnosis, further testing, and care related to Intra-abdominal abscess (HCC). Plan of care discussed with: Patient and RN VTE Prophylaxis: Patient is already anti-coagulated. Diagnostic tests reviewed for today's visit: Most recent labs and imaging results. Most recent EKG TELEMETRY: [facility] Imaging Services [address] [place] [address] Abdomen/Pelvis without Cont MR#: [id number] Acct: [id number] Name: DIA MCCULLOUGH Rep #: [id number] : [id number] From: Mckay Faulkner MD PCP: Jared Romero MD Status: REG ER Study: Abdomen/Pelvis without Cont Date of Exam: 10/08/17 Exam# [id number] Ordering Dr: Ronn Marrero MD STUDY: CT ABDOMEN AND PELVIS WITHOUT CONTRAST REASON FOR EXAM: Female, 77 years old. Abdominal pain. Bowel perforation RADIATION DOSAGE (If Supplied By Facility): CTDIvol = ( 7.83 ) mGy, DLP = ( 387.50 ) mGycm TECHNIQUE: Transaxial images were obtained from the dome of the diaphragm to the symphysis pubis without oral contrast, and without intravenous contrast. Sagittal and coronal images were reconstructed. Individualized dose optimization techniques were used for this CT. COMPARISON: August 24, 2017 CT abdomen pelvis FINDINGS: Lung bases demonstrate no evidence for consolidative process. Gallbladder slightly distended. Liver and pancreas are within normal limits of size. The spleen appears unremarkable. Adrenal glands appear unremarkable Bowel gas pattern is nonobstructive. Duodenal diverticulum seen along the third segment of the duodenum. Kidneys demonstrate no evidence for hydronephrosis Vascular calcifications of the abdominal aorta. Subcutaneous emphysema in the abdominal wall Significant interval decrease in free intraperitoneal air. Colonic diverticulosis with adjacent phlegmonous changes in the distal sigmoid colon noted with a ill-defined pockets of gas and fluid in the presacral region measuring approximately 4.4 cm x 5 cm likely an ill-defined fluid collection/abscess. Study lacks intravenous contrast for complete assessment. Urinary bladder is slightly distended. Degenerative changes in the sacroiliac joints as well as the lumbar spine. Diffuse osteopenia. Postsurgical changes in the lumbar spine also seen. Right-sided hip prosthesis IMPRESSION: Sigmoid colonic diverticulosis with adjacent inflammatory stranding likely related with sigmoid colonic diverticulitis with previously seen perforation and likely 5 cm x 4.4 cm ill-defined fluid collection with pockets of gas likely an abscess in the presacral space. Study lacks intravenous contrast for complete assessment. Colonic fistulas are not excluded. Subcutaneous emphysema in the abdominal wall Significant interval decrease in previously noted free air SIGNATURE: Gold Clemens MD PATIENT NAME: Dia Mccullough DATE: October 08, 2017 TIME: 10:57 PM PAGER/CONTACT #: [phone] NIGHT AND WEEKEND COVERAGE: After 7pm please page [phone] Gold Clemens MD 10/09/2017 6:45 AM Signed Pulse > 150, tele showed SVT, EKG confirmed. Metoprolol PO given, will monitor response. No IV access at this time. Javier Wiley MD 10/17/2017 9:24 PM Signed CONSULT: General Surgery SERVICE SERVICE DATE: 10/09/2017 SERVICE TIME: 9:42 AM REASON FOR CONSULT: Intraabdominal abscess REQUESTING PHYSICIAN: Dr. Damon PRIMARY CARE PHYSICIAN: Mallorie Wheeler MD Subjective Ms. Mccullough is a 77 year old female recently admitted 08/24/17 from [place] for diverticular abscess/perforation and septic shock. After multiple discussion (with patient/family) regarding recommendations for surgery, patient was discharged to hospice at patient's request on po antibiotics. 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 Readmitted yesterday for CT findings. Denies prior bouts of diverticulitis. No prior colonoscopies. Denies abdominal pain, nausea, or vomiting. Tolerating po. Patient states last BM was 2 days ago and wnl. Tm 37.4 o/n. Tachycardic to 150s this am. No recent weight loss. Denies FMH of IBD or GI malignancy. CT A/P: subcutaneous emphysema in the abdominal wall. Significant decrease in free intraperitoneal air. Colonic diverticulosis wih adjacent phlegmonous changes in the distal sigmoid colon noted with an ill defined pocket of gas and fluid in the presacral region measuring approximately 4.4 x5 cm (likely an ill defined fluid collection/abscess). Colonic fistulas not excluded. 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 - Inflammatory polyarthropathy - Normocytic anemia - PE (pulmonary thromboembolism) (HCC) 01/05/14 Bilat, extensive - Pulmonary embolism without acute cor pulmonale - Pure hypercholesterolemia - Sicca syndrome - Unspecified essential hypertension - Unspecified gastritis and gastroduodenitis without mention of hemorrhage - Urinary tract infection, site not specified - Venous insufficiency (chronic) (peripheral) - Vitamin D deficiency PAST SURGICAL HISTORY Procedure Laterality Date - CATARACT EXTRACTION HX Right - PARTIAL HIP REPLACEMENT Right 04/2013 - PAST SURGICAL HISTORY OF hernia repair - PAST SURGICAL HISTORY OF 11/2012 L3-L4 laminectomy and fusion - PAST SURGICAL HISTORY OF 11/2012 Back fusion surgery - TOTAL HIP REPLACEMENT 05/10/2013 right hip replacement - VENOUS DUPLEX BOTH LOWER EXTREMITIES 05/12/2016 FAMILY HISTORY Problem Relation Age of Onset - Diabetes Mother - Heart Mother - Heart Father - Denies family history of malignancy or thromboembolism. [OTHER] Other Social History Substance Use Topics - Smoking status: Never Smoker - Smokeless tobacco: Never Used - Alcohol use No Prescriptions Prior to Admission: predniSONE (DELTASONE) 2.5 mg tablet Take 2.5 mg by mouth daily before dinner. Disp: Rfl: enoxaparin (LOVENOX) 80 mg/0.8 mL syrg Inject 80 mg subcutaneously q 12 HR. Disp: Rfl: Omeprazole 40 mg capsule Take 40 mg by mouth once daily. Disp: Rfl: predniSONE (DELTASONE) 5 mg tablet Take 5 mg by mouth twice daily. Disp: Rfl: ondansetron orally disintegrating (ZOFRAN ODT) 4 mg disintegrating tablet Take 1 tablet by mouth every 6 hours as needed for Nausea/Vomiting. Disp: 24 tablet Rfl: 0 Past Week at Unknown time hydrochlorothiazide (HYDRODIURIL, ESIDRIX) 25 mg tablet Take 1 tablet by mouth once daily. 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) Disp: Rfl: 10/07/2017 at Unknown time Current hospital medications: enoxaparin 70 mg injection (LOVENOX) 1 mg/kg/dose SUBCUTANEOUS DAILY metoprolol tartrate (short acting) 75 mg tab(s) (LOPRESSOR) 75 mg ORAL q 12 H magnesium sulfate in water 2 g in sterile water 50 ml 2 g INTRAVENOUS ONCE hydroCHLOROthiazide 25 mg tab(s) (HYDRODIURIL, ESIDRIX) 25 mg ORAL DAILY ondansetron orally disintegrating 4 mg tab(s) (ZOFRAN ODT) 4 mg ORAL q 6 H PRN predniSONE 5 mg tab(s) (DELTASONE) 5 mg ORAL BID PC predniSONE 2.5 mg tab(s) (DELTASONE) 2.5 mg ORAL DAILY wDINNER pantoprazole DR 40 mg tab(s) (PROTONIX) 40 mg ORAL DAILY (6 AM) saliva substitute combo no.9 15 mL (BIOTENE mouthwash) 15 mL MUCOUS MEMBRANE (TOPICAL MOUTH AND THROAT) 5X/DAY benzocaine-menthol 1 Lozenge (CEPACOL) 1 Lozenge MUCOUS MEMBRANE (TOPICAL MOUTH AND THROAT) q 2 H PRN 0.9% NaCl 3-5 mL 3-5 mL INTRAVENOUS q 12 H lactated ringers infusion 100 mL/hr INTRAVENOUS CONTINUOUS morphine 1-2 mg injection 1-2 mg INTRAVENOUS q 4 H PRN guaiFENesin 200 mg oral liquid (ROBITUSSIN) 200 mg ORAL QID Allergies As of Date: 10/08/2017 Allergen Noted Reaction ANSAID [FLURBIPROFEN] 12/22/2010 GI Upset ARTHROTEC 50 [DICLOFENAC-MISOPROS*06/24/2011 GI Upset AUGMENTIN [AMOXICILLIN-POT CLAVUL*08/31/2008 GI Upset DOXYCYCLINE 03/17/2005 GI Upset ERYTHROMYCIN 03/17/2005 GI Upset GRASS POLLEN 02/17/2006 LODINE [ETODOLAC] 03/17/2005 NSAIDS (NON-STEROIDAL ANTI-INFLAM*03/11/2017 Unknown POISON LISA 03/17/2005 VIOXX [ROFECOXIB] 03/17/2005 GI Upset Fully Assessed 10/08/2017 COMPLETE REVIEW OF SYSTEMS: See HPI for pertinent ROS Objective PHYSICAL EXAM: Physical Exam Performed: GENERAL: Alert, no distress, cooperative SKIN: Skin color, texture, turgor normal. No rashes or lesions. HEAD/SINUSES: No significant findings LUNGS: no respiratory distress on RA CARDIAC: tachycardic ABDOMEN: Soft, ND, NT, No R/G/BS, ecchymosis noted over LLQ BP 125/68 Pulse 150 Temp (Src) 99.3 (Temporal Artery) Resp 18 Ht 5' 0 (1.52m) Wt 150 lb (68.0kg) SpO2 96% BMI 29.30 kg/(m2). DATA: Diagnostic tests reviewed for today's visit: Most recent labs and imaging results. CBC, Coags, BMP, Mg, Phos Recent Labs 10/09/17 0630 WBC 15.73* HB 7.8* HCT 25.4* PLT 264 NA 138 K 3.5 CHLOR 105 CO2 24 BUN 32* CREAT 1.55* GLUC 116* CA 8.0* MG 1.4* P 3.6 10/08: WBC 20.7, HGB 9.8, Cr 1.6 Impression/Recommendations 77 yo F with diverticulitis c/b perforation/abscess -clinically benign exam, with improving leukocytosis (15.7 <- 20); abscess/phlegmon ill defined on current imaging -d/w transplant surgeon radiologist, developing abscess is located in a region that would be technically very difficult to drain percutaneously -given benign/improved exam, recommend continuing antibiotics per primary, no current plans for surgical intervention -will monitor exam for surgical needs. If exam changes or patient develops signs of worsening infection, will likely need surgical drainage (transrectal vs laparoscopic drain placement) -d/w Dr. Wiley Emergency General Surgery Service Pager: For questions or concerns Mon-Fri 6a-5p please page [phone]. After 5pm and on Weekends and Holidays, please page [phone] if in ICU or [phone] if on RNF. SIGNATURE: Lina Damico MD PATIENT NAME: Dia Mccullough DATE: October 09, 2017 TIME: 8:59 AM PAGER: [phone] Attending Note I evaluated the patient and personally participated in the canales components. I agree with the resident's findings and plan as documented and have discussed the case and management of the patient's care with the resident. Difficult to access and poorly defined abscess. Patient is amenable to IR drainage or laparoscopic assisted drainage, but does not wish full colectomy. Will proceed with trial of IV abx and symptoms management at this time. Patient was tolerating diet without difficulty on my exam. Javier Wiley MD Department of General Surgery Section of Trauma, Surgery Critical Care, and Acute Care Surgery Delayed entry Previous Version Jose Maria Mittal MD 10/09/2017 2:02 PM Addendum DEPARTMENT OF HOSPITAL MEDICINE PROGRESS NOTE SERVICE DATE: 10/09/2017 SERVICE TIME: 1:33 PM Hospital Medicine/Primary Attending: Jose Maria Mittal MD NIGHT AND WEEKEND COVERAGE: After 7pm please page [phone] CHIEF COMPLAINT: bleeding in left leg SUBJECTIVE: 6 weeks ago she had bowel perforation and was brought in here. She decided not to have surgery and was sent home on 2 weeks of oral abx. 2 weeks later she has hematemesis while on coumadin. She was treated with vit k at [facility] and was sent to hospice [facility]. She stablized and sent home. Then she developed DVT/ PE and was started on sc lovenox 1mg/kg BID (has CKD 3-4). She then developed bleeding and hematoma in left leg. She denies any abdominal pain, nausea or vomiting or black stool. Denies any chest pain, dyspnea or palpitation. OBJECTIVE: PHYSICAL EXAM: BP 113/88 Pulse 99 Temp (Src) 97.3 (Temporal Artery) Resp 18 Ht 5' 0 (1.52m) Wt 150 lb (68.0kg) SpO2 93% BMI 29.30 kg/(m2). GENERAL: Alert, no distress, cooperative, SKIN: Skin color, texture, turgor normal. No rashes or lesions. OROPHARYNX: Lips, mucosa, and tongue normal. Teeth and gums normal. Oropharynx normal. LUNGS: Lungs clear to auscultation, Air entry good, Unlabored breathing. CARDIAC: Normal S1 and S2; no rubs, murmurs, or gallops ABDOMEN: Abdomen soft, non-tender, non-distended, BS normal. Bruise in her belly EXTREMITIES: left leg: wrapped in dressing and Spike wrap. Foot warm with intact sensation. Right foot non bleeding echymosis NEURO: Grossly normal cognition, motor function, and cranial nerves III-XII MEDICATIONS: Current hospital medications: enoxaparin 70 mg injection (LOVENOX) 1 mg/kg/dose SUBCUTANEOUS DAILY metoprolol tartrate (short acting) 75 mg tab(s) (LOPRESSOR) 75 mg ORAL q 12 H hydroCHLOROthiazide 25 mg tab(s) (HYDRODIURIL, ESIDRIX) 25 mg ORAL DAILY ondansetron orally disintegrating 4 mg tab(s) (ZOFRAN ODT) 4 mg ORAL q 6 H PRN predniSONE 5 mg tab(s) (DELTASONE) 5 mg ORAL BID PC predniSONE 2.5 mg tab(s) (DELTASONE) 2.5 mg ORAL DAILY wDINNER pantoprazole DR 40 mg tab(s) (PROTONIX) 40 mg ORAL DAILY (6 AM) saliva substitute combo no.9 15 mL (BIOTENE mouthwash) 15 mL MUCOUS MEMBRANE (TOPICAL MOUTH AND THROAT) 5X/DAY benzocaine-menthol 1 Lozenge (CEPACOL) 1 Lozenge MUCOUS MEMBRANE (TOPICAL MOUTH AND THROAT) q 2 H PRN 0.9% NaCl 3-5 mL 3-5 mL INTRAVENOUS q 12 H lactated ringers infusion 100 mL/hr INTRAVENOUS CONTINUOUS morphine 1-2 mg injection 1-2 mg INTRAVENOUS q 4 H PRN guaiFENesin 200 mg oral liquid (ROBITUSSIN) 200 mg ORAL QID DATA: Diagnostic tests reviewed for today's visit: CBC, Coags, BMP, Mg, Phos Recent Labs 10/09/17 0630 WBC 15.73* HB 7.8* HCT 25.4* PLT 264 NA 138 K 3.5 CHLOR 105 CO2 24 BUN 32* CREAT 1.55* GLUC 116* CA 8.0* MG 1.4* P 3.6 Liver Function, Amylase, AND Lipase Cardiac Enzymes Heme: Recent Labs 10/09/17 0825 10/09/17 0630 ABSRETIC -- 0.095 RITO -- 181.50 FE 29* -- TIBC 186* -- Albumin/Creat Ratio (mg/g) Date Value 11/03/2013 3 Assessment/Plan Patient Active Hospital Problem List: Intra-abdominal abscess (HCC) (10/08/2017) DVT (deep venous thrombosis) (HCC) (01/08/2014) Pulmonary emboli (HCC) (01/30/2014) CKD (chronic kidney disease) stage 3, GFR 30-59 ml/min (11/28/2014) Venous insufficiency (chronic) (peripheral) () Curry disease () Traumatic hematoma of left lower leg (10/08/2017) Leg hematoma, left, initial encounter (10/08/2017) ASSESSMENT: 1. Sigmoid diverticulitis with pervious perforation with 5cm pelvic abscess: minimal symptoms. 2. Bowel perforation 08/24/17: she refused surgery at that time and was treated with abx. Survived. 3. 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 Used to be on coumadin which was stopped when she developed hematemesis. Since her last PE/PE, was placed on lovenox 1mg/kg BID 4. Left leg bleeding/ hematoma: probably due to higher dose of lovenox for CKD 3-4 Currently wrapped with dressing and SPIKE 5. Episode of hematemesis 5 weeks ago while on coumadin- managed with vitk. No scope done. 6. SVT this am: better with metoprolol. 7. Anemia: most likely due to bleed.? CKD and recent conditions contributing. 8. Addision's disease: 9. CKD3 PLAN: She is willing to get abx and drain for intraabdominal abscess. Still does not want surgery. Start meropenem. Consult ID and general surgery. Will need drainage of abscess. Continue to apply spike wrap pressure dressing to left leg. Continue lovenox at 1mg/kg daily dose. Consider eventual transition to coumadin (NOAC too expensive per patient) or IVC filter. Will get opinion of furrier apprentice- has seen Dr Irizarry in the past. Check ferritin, retic, vitamin b12 and folate. This was discussed with patient and later with son on the phone She is DNRCCA and no mechanical ventilation for respiratory distress either. VTE Prophylaxis: Patient is already anti-coagulated. Disposition: Home with [facility] Plan of care discussed with: Patient, Family/Other: son and RN SIGNATURE: Jose Maria Mittal MD PATIENT NAME: Dia Mccullough DATE: October 09, 2017 TIME: 1:33 PM PAGER/CONTACT #: [phone] Previous Version Shawna Henning MD 10/09/2017 2:43 PM Signed Patient seen and Heme issues discussed with patient and son. Consult dictated. 1. Patient doing well on Lovenox. 2. Keep current dose. 70 mg daily. 3. Hemostatic decisions will be based on surgeons decision in regard to surgery. Will facilitate the surgeons decision. Will follow. MD Philip Cody CHAPLAIN, Chaplain 10/09/2017 2:59 PM Signed SPIRITUALCARE Spiritual Care Visit- Brief Note Name: Dia Mccullough Date: October 09, 2017 Notes: As pile driving setter, made intro visit with pt. Listened empathetically to pt's concerns. Reminded pt of 06/12 SC. Paint Line Production Supervisor Signature: CHAPLAIN Wilbert To contact the [facility] Care Department: Please call [phone] or Page the On-Call Paint Line Production Supervisor at pager [phone] Thank you for the opportunity to be of service. This is an electronically created document. IF PRINTED, PLEASE DO NOT REMOVE FROM THE CHART OR MODIFY PRINTED COPY. Zhane Mcgovern III, MD 10/09/2017 8:19 PM Signed CONSULT: INFECTIOUS DISEASE SERVICE SERVICE DATE: 10/09/2017 SERVICE TIME: 4:02PM REASON FOR CONSULT: Abdominal abscess REQUESTING PHYSICIAN: Dr. Damon PRIMARY CARE PHYSICIAN: Mallorie Wheeler MD Subjective . 77 year old female who was in [facility] in August for perforated bowel Had refused surgery and actually went home on hospice and on oral antibiotics. Has been receiving blood thinner. Recently had hematoma of the left leg. Per HANDP, she was brought back to [place] ED for abdominal pain. There, it was found that she had a 5cm intra-abdominal abscess. She was transferred here for evaluaton for percutaneous drain which has been ordered. She actually denies any abdominal pain to me. Denies any fevers or chills. Currently on meropenem ALLERGIES Allergen Reactions - Ansaid [Flurbiprofe* GI Upset Ulcer - Arthrotec 50 [Diclo* GI Upset Cytotec upset stomach more than just the voltaren by itself - Augmentin [Amoxicil* GI Upset tolerates cephalexin - Doxycycline GI Upset - Erythromycin GI Upset - Grass Pollen - Lodine [Etodolac] - Nsaids (Non-Steroid* Unknown - Poison Lisa - Vioxx [Rofecoxib] GI Upset She also reports intolerance to flagyl. 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 - Inflammatory polyarthropathy - Normocytic anemia - PE (pulmonary thromboembolism) (HCC) 01/05/14 Bilat, extensive - Pulmonary embolism without acute cor pulmonale - Pure hypercholesterolemia - Sicca syndrome - Unspecified essential hypertension - Unspecified gastritis and gastroduodenitis without mention of hemorrhage - Urinary tract infection, site not specified - Venous insufficiency (chronic) (peripheral) - Vitamin D deficiency PAST SURGICAL HISTORY Procedure Laterality Date - CATARACT EXTRACTION HX Right - PARTIAL HIP REPLACEMENT Right 04/2013 - PAST SURGICAL HISTORY OF hernia repair - PAST SURGICAL HISTORY OF 11/2012 L3-L4 laminectomy and fusion - PAST SURGICAL HISTORY OF 11/2012 Back fusion surgery - TOTAL HIP REPLACEMENT 05/10/2013 right hip replacement - VENOUS DUPLEX BOTH LOWER EXTREMITIES 05/12/2016 FAMILY HISTORY Problem Relation Age of Onset - Diabetes Mother - Heart Mother - Heart Father - Denies family history of malignancy or thromboembolism. [OTHER] Other Social History Substance Use Topics - Smoking status: Never Smoker - Smokeless tobacco: Never Used - Alcohol use No Prescriptions Prior to Admission: predniSONE (DELTASONE) 2.5 mg tablet Take 2.5 mg by mouth daily before dinner. Disp: Rfl: enoxaparin (LOVENOX) 80 mg/0.8 mL syrg Inject 80 mg subcutaneously q 12 HR. Disp: Rfl: Omeprazole 40 mg capsule Take 40 mg by mouth once daily. Disp: Rfl: predniSONE (DELTASONE) 5 mg tablet Take 5 mg by mouth twice daily. Disp: Rfl: ondansetron orally disintegrating (ZOFRAN ODT) 4 mg disintegrating tablet Take 1 tablet by mouth every 6 hours as needed for Nausea/Vomiting. Disp: 24 tablet Rfl: 0 Past Week at Unknown time hydrochlorothiazide (HYDRODIURIL, ESIDRIX) 25 mg tablet Take 1 tablet by mouth once daily. 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) Disp: Rfl: 10/07/2017 at Unknown time Current hospital medications: enoxaparin 70 mg injection (LOVENOX) 1 mg/kg/dose SUBCUTANEOUS DAILY metoprolol tartrate (short acting) 75 mg tab(s) (LOPRESSOR) 75 mg ORAL q 12 H meropenem 1 g in NaCl 0.9% 100 mL MB+ (MERREM) 1 g INTRAVENOUS q 12 H hydroCHLOROthiazide 25 mg tab(s) (HYDRODIURIL, ESIDRIX) 25 mg ORAL DAILY ondansetron orally disintegrating 4 mg tab(s) (ZOFRAN ODT) 4 mg ORAL q 6 H PRN predniSONE 5 mg tab(s) (DELTASONE) 5 mg ORAL BID PC predniSONE 2.5 mg tab(s) (DELTASONE) 2.5 mg ORAL DAILY wDINNER pantoprazole DR 40 mg tab(s) (PROTONIX) 40 mg ORAL DAILY (6 AM) saliva substitute combo no.9 15 mL (BIOTENE mouthwash) 15 mL MUCOUS MEMBRANE (TOPICAL MOUTH AND THROAT) 5X/DAY benzocaine-menthol 1 Lozenge (CEPACOL) 1 Lozenge MUCOUS MEMBRANE (TOPICAL MOUTH AND THROAT) q 2 H PRN 0.9% NaCl 3-5 mL 3-5 mL INTRAVENOUS q 12 H lactated ringers infusion 100 mL/hr INTRAVENOUS CONTINUOUS morphine 1-2 mg injection 1-2 mg INTRAVENOUS q 4 H PRN guaiFENesin 200 mg oral liquid (ROBITUSSIN) 200 mg ORAL QID Allergies As of Date: 10/08/2017 Allergen Noted Reaction ANSAID [FLURBIPROFEN] 12/22/2010 GI Upset ARTHROTEC 50 [DICLOFENAC-MISOPROS*06/24/2011 GI Upset AUGMENTIN [AMOXICILLIN-POT CLAVUL*08/31/2008 GI Upset DOXYCYCLINE 03/17/2005 GI Upset ERYTHROMYCIN 03/17/2005 GI Upset GRASS POLLEN 02/17/2006 LODINE [ETODOLAC] 03/17/2005 NSAIDS (NON-STEROIDAL ANTI-INFLAM*03/11/2017 Unknown POISON LISA 03/17/2005 VIOXX [ROFECOXIB] 03/17/2005 GI Upset Fully Assessed 10/08/2017 COMPLETE REVIEW OF SYSTEMS: GENERAL: No weight loss, malaise or fevers HEENT: Negative for frequent or significant headaches, No changes in hearing or vision, no nose bleeds or other nasal problems RESPIRATORY: Negative for cough, hemoptysis, wheezing, COPD, dyspnea or shortness of breath CARDIOVASCULAR: no chest pain or palpitations GI: No nausea, vomiting, or diarrhea and denies any abdominal pain MUSCULOSKELETAL: Negative for joint pain or swelling, back pain or muscle pain SKIN: Negative for lesions, rash, and itching HEMATOLOGY/LYMPHOLOGY: Bruising/hematoma of left leg. NEURO: No focal weakness or numbness Objective PHYSICAL EXAM: Physical Exam Performed: GENERAL: Alert, no distress, cooperative SKIN: Skin color, texture, turgor normal. No rashes or lesions. OROPHARYNX: Lips, mucosa, and tongue normal. Teeth and gums normal. Oropharynx normal. LUNGS: Lungs clear to auscultation, Good diaphragmatic excursion CARDIAC: Normal S1 and S2; no rubs, murmurs, or gallops ABDOMEN: bowel sounds active. Abdomen soft. Very mild tenderness in right lower quadrant. EXTREMITIES: Left leg hematoma site bandaged. LYMPH: No cervical or axillary adenopathy BP 113/58 Pulse 87 Temp (Src) 97 (Temporal Artery) Resp 18 Ht 5' 0 (1.52m) Wt 150 lb (68.0kg) SpO2 98% BMI 29.30 kg/(m2). DATA: Diagnostic tests reviewed for today's visit: CT report from outside hospital reviewed Hemoglobin (g/dL) Date Value 08/05/2015 12.4 HGB (g/dL) Date Value 10/09/2017 7.8 Hematocrit (%) Date Value 10/09/2017 25.4 WBC (thou/cmm) Date Value 10/09/2017 15.73 Estimated Creatinine Clearance: 25.7 mL/min (A) (based on SCr of 1.55 mg/dL (H)). Impression/Recommendations 1) Intra-abdominal abscess 2) Sepsis with leukocytosis and prior tachycardia PLAN: 1) Continue meropenem 2) F/u surgical recommendations SIGNATURE: Zhane Mcgovern III, MD PATIENT NAME: Dia Mccullough DATE: October 09, 2017 TIME: 4:02 PM PAGER: [phone] Philip Koenig MD 10/10/2017 7:10 AM Attested Attestation signed by Khai Lira at 10/10/2017 12:36 PM I personally saw and examined the patient. I reviewed the resident's note. I agree with the resident's assessment and plan unless otherwise noted below. We will review imaging with interventional radiology to see if this is amenable to percutaneous or transrectal drainage to progress her forward. Currently looks nontoxic and very comfortable. She does not want to pursue surgery. Emergency General Surgery Progress Note SERVICE DATE: 10/10/2017 SUBJECTIVE: No acute events. Abdominal pain has nearly improved completely. She is having bowel function. She was started on regular diet last night. Tolerating diet DIET REGULAR OBJECTIVE: Vitals: Temp (24hrs), Av.2 ?C (97.2 ?F), Min:36.1 ?C (97 ?F), Max:36.3 ?C (97.3 ?F) BP 93/54 Pulse 89 Temp 36.2 ?C (97.2 ?F) (Temporal Artery) Resp 18 Ht 152.4 cm (5') Wt 68 kg (150 lb) SpO2 99% BMI 29.29 kg/m? O2 Therapy: Room Air IANDO: Date 10/09/17699 - 10/10/1765810/10/17699 - 10/11/17658 Shift 8807-6327 1525-1705 0249-3542 24 Hour Total 1933-8480 7848-4268 5765-7861 24 Hour Total I N T A K E PO 240 240 480 PO 240 240 480 IV 1000 1000 LR 1000 1000 Shift Total 1699 107 4181 O U T P U T Urine 4 2 6 Urine Not Saved 4 2 6 Shift Total 4 2 6 Weight (kg) 68 68 68 68 68 68 68 68 MEDICATIONS Current Facility-Administered Medications: HYDROcodone 5 mg - acetaminophen 325 mg tablet (NORCO) 1 tablet ORAL q 4 H PRN enoxaparin 70 mg injection (LOVENOX) 1 mg/kg/dose SUBCUTANEOUS DAILY metoprolol tartrate (short acting) 75 mg tab(s) (LOPRESSOR) 75 mg ORAL q 12 H meropenem 1 g in NaCl 0.9% 100 mL MB+ (MERREM) 1 g INTRAVENOUS q 12 H hydroCHLOROthiazide 25 mg tab(s) (HYDRODIURIL, ESIDRIX) 25 mg ORAL DAILY ondansetron orally disintegrating 4 mg tab(s) (ZOFRAN ODT) 4 mg ORAL q 6 H PRN predniSONE 5 mg tab(s) (DELTASONE) 5 mg ORAL BID PC predniSONE 2.5 mg tab(s) (DELTASONE) 2.5 mg ORAL DAILY wDINNER pantoprazole DR 40 mg tab(s) (PROTONIX) 40 mg ORAL DAILY (6 AM) saliva substitute combo no.9 15 mL (BIOTENE mouthwash) 15 mL MUCOUS MEMBRANE (TOPICAL MOUTH AND THROAT) 5X/DAY benzocaine-menthol 1 Lozenge (CEPACOL) 1 Lozenge MUCOUS MEMBRANE (TOPICAL MOUTH AND THROAT) q 2 H PRN 0.9% NaCl 3-5 mL 3-5 mL INTRAVENOUS q 12 H lactated ringers infusion 100 mL/hr INTRAVENOUS CONTINUOUS guaiFENesin 200 mg oral liquid (ROBITUSSIN) 200 mg ORAL QID Labs: Recent Labs 10/10/17 0357 10/09/17 0630 NA 142 138 K 3.3* 3.5 CHLOR 108* 105 CO2 28 24 BUN 34* 32* CREAT 1.63* 1.55* GLUC 97 116* ANION 9 13 CA 7.6* 8.0* MG -- 1.4* P -- 3.6 ALB 1.7* -- AST 5* -- ALT 12 -- ALKPHOS 40* -- TBILI 0.2 -- WBC -- 15.73* HB -- 7.8* HCT -- 25.4* PLT -- 264 Exam: GENERAL: No distress, Alert NEURO: AANDOx3, CN II-XII grossly intact HEENT: normocephalic, atraumatic LUNGS: Unlabored breathing CARDIAC: Regular rate and rhythm as above ABDOMEN: Soft, minimally tender LLQ, non-distended. No rebound or guarding. EXTREMITIES: MONGE, No deformities, No edema SKIN: Skin color, texture, turgor normal, No rashes or lesions ASSESSMENT AND PLAN: Active Hospital Problems Diagnosis Date Noted - Intra-abdominal abscess (HCC) 10/08/2017 - Traumatic hematoma of left lower leg 10/08/2017 - Leg hematoma, left, initial encounter 10/08/2017 - Curry disease Chronic - Venous insufficiency (chronic) (peripheral) - CKD (chronic kidney disease) stage 3, GFR 30-59 ml/min 11/28/2014 - Pulmonary emboli (HCC) 01/30/2014 Overview Note: clinically resolved - DVT (deep venous thrombosis) ([facility]) 01/08/2014 Overview Note: recurrent 77 year old female with diverticulitis and presacral fluid/gas collection. - diet as tolerated. Recommend holding diet if having pain. - WBC pending this AM. 15 yesterday. Has been downtrending. - On meropenem per primary. - fluid collection would be difficult to drain per radiology. - if she worsens, she may need to have a drain placed in fluid collection. - She is improving with conservative management. There is no indication for surgical intervention at this time. - she will need to have an outpatient colonoscopy in 6-8 weeks after discharge. SIGNATURE: Philip Koenig MD PATIENT NAME: Dia Mccullough DATE: October 10, 2017 TIME: 7:05 AM Pager: [phone] Jose Maria Mittal MD 10/10/2017 11:50 AM Signed DEPARTMENT OF HOSPITAL MEDICINE PROGRESS NOTE SERVICE DATE: 10/10/2017 SERVICE TIME: 11:27 AM Hospital Medicine/Primary Attending: Jose Maria Mittal MD NIGHT AND WEEKEND COVERAGE: After 7pm please page [phone] CHIEF COMPLAINT: left leg hematoma. SUBJECTIVE: No pain in abdomen. No nausea or vomiting. Eating well. No pain in left leg OBJECTIVE: PHYSICAL EXAM: BP 98/56 Pulse 87 Temp (Src) 97.5 (Temporal Artery) Resp 18 Ht 5' 0 (1.52m) Wt 150 lb (68.0kg) SpO2 100% BMI 29.30 kg/(m2). GENERAL: Alert, no distress, cooperative, SKIN: Skin color, texture, turgor normal. No rashes or lesions. OROPHARYNX: Lips, mucosa, and tongue normal. Teeth and gums normal. Oropharynx normal. LUNGS: Lungs clear to auscultation, Air entry good, Unlabored breathing. CARDIAC: Normal S1 and S2; no rubs, murmurs, or gallops ABDOMEN: Abdomen soft, non-tender, non-distended, BS normal EXTREMITIES: left leg- dressing opened. Large hematoma in left lower leg- no active bleed. No evidence of infection. Foot warm with intact sensation. NEURO: Grossly normal cognition, motor function, and cranial nerves III-XII MEDICATIONS: Current hospital medications: HYDROcodone 5 mg - acetaminophen 325 mg tablet (NORCO) 1 tablet ORAL q 4 H PRN polyethylene glycol 3350 17 g packet (MIRALAX, GLYCOLAX) 17 g ORAL DAILY enoxaparin 70 mg injection (LOVENOX) 1 mg/kg/dose SUBCUTANEOUS DAILY metoprolol tartrate (short acting) 75 mg tab(s) (LOPRESSOR) 75 mg ORAL q 12 H meropenem 1 g in NaCl 0.9% 100 mL MB+ (MERREM) 1 g INTRAVENOUS q 12 H hydroCHLOROthiazide 25 mg tab(s) (HYDRODIURIL, ESIDRIX) 25 mg ORAL DAILY ondansetron orally disintegrating 4 mg tab(s) (ZOFRAN ODT) 4 mg ORAL q 6 H PRN predniSONE 5 mg tab(s) (DELTASONE) 5 mg ORAL BID PC predniSONE 2.5 mg tab(s) (DELTASONE) 2.5 mg ORAL DAILY wDINNER pantoprazole DR 40 mg tab(s) (PROTONIX) 40 mg ORAL DAILY (6 AM) saliva substitute combo no.9 15 mL (BIOTENE mouthwash) 15 mL MUCOUS MEMBRANE (TOPICAL MOUTH AND THROAT) 5X/DAY benzocaine-menthol 1 Lozenge (CEPACOL) 1 Lozenge MUCOUS MEMBRANE (TOPICAL MOUTH AND THROAT) q 2 H PRN 0.9% NaCl 3-5 mL 3-5 mL INTRAVENOUS q 12 H lactated ringers infusion 100 mL/hr INTRAVENOUS CONTINUOUS guaiFENesin 200 mg oral liquid (ROBITUSSIN) 200 mg ORAL QID DATA: Diagnostic tests reviewed for today's visit: CBC, Coags, BMP, Mg, Phos Recent Labs 10/10/17 0830 10/10/17 0357 10/09/17 0630 WBC 8.61 -- 15.73* HB 6.1* -- 7.8* HCT 19.6* -- 25.4* PLT 195 -- 264 NA -- 142 138 K -- 3.3* 3.5 CHLOR -- 108* 105 CO2 -- 28 24 BUN -- 34* 32* CREAT -- 1.63* 1.55* GLUC -- 97 116* CA -- 7.6* 8.0* MG -- -- 1.4* P -- -- 3.6 Liver Function, Amylase, AND Lipase Recent Labs 10/10/17 0357 TPROT 4.3* ALB 1.7* ALT 12 AST 5* ALKPHOS 40* TBILI 0.2 Cardiac Enzymes Heme: Recent Labs 10/09/17 1530 ABSRETIC 0.081 RITO 176.00 FE 14* TIBC 182* Albumin/Creat Ratio (mg/g) Date Value 11/03/2013 3 Assessment/Plan Patient Active Hospital Problem List: Intra-abdominal abscess (HCC) (10/08/2017) DVT (deep venous thrombosis) (HCC) (01/08/2014) Pulmonary emboli (HCC) (01/30/2014) CKD (chronic kidney disease) stage 3, GFR 30-59 ml/min (11/28/2014) Venous insufficiency (chronic) (peripheral) () Curry disease () Traumatic hematoma of left lower leg (10/08/2017) Leg hematoma, left, initial encounter (10/08/2017) ASSESSMENT: 1. Sigmoid diverticulitis with with 5cm pelvic abscess: minimal symptoms. On Abx. Per surgeon who spoke with IR, difficult to drain percutaneously. Plan is to continue abx for now. If worse, drain surgically -transrectal or laparoscopically placed drain (if patient agrees). ? 2. Bowel perforation 08/24/17: she refused surgery at that time and was treated with abx. Survived. ? 3. 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 Used to be on coumadin which was stopped when she developed hematemesis. Since her last PE/PE, was placed on lovenox 1mg/kg BID- dose decreased to 1mg/kg daily. ? 4. Left leg bleeding/ hematoma: probably due to higher dose of lovenox for CKD 3-4 Currently wrapped with dressing and SPIKE. ? 5. Episode of hematemesis 5 weeks ago while on coumadin- managed with vitk. No scope done. ? 6. SVT this am: better with metoprolol. ? 7. Severe Anemia: due to bleed.? CKD and recent conditions contributing. No evidence of iron def. ? 8. Addision's disease: ? 9. CKD3 PLAN: Continue abx. Monitor Transfuse 1 unit of PRBC. Monitor hb Elevate left leg. Discussed with ortho regarding hematoma- mild compression dressing, leg elevation and NO evacuation. VTE Prophylaxis: Patient is already anti-coagulated. Disposition: Home Plan of care discussed with: Patient SIGNATURE: Jose Maria Mittal MD PATIENT NAME: Dia Mccullough DATE: October 10, 2017 TIME: 11:27 AM PAGER/CONTACT #: [phone] Zhane Mcgovern III, MD 10/10/2017 2:52 PM Signed CONSULT PROGRESS NOTE SERVICE DATE: 10/10/2017 SERVICE TIME: 1:30PM CONSULTING SERVICE: INFECTIOUS DISEASE Subjective INTERVAL HPI: F/u presacral abscess Surgery notes reviewed. Per son and RN- plan updated so that now patient will be getting CT in am and reassessing if drain possible. She feels ok. Has some pressure in the abdomen but she thinks that this is because she has to move her bowels No fevers or chills. Current hospital medications: HYDROcodone 5 mg - acetaminophen 325 mg tablet (NORCO) 1 tablet ORAL q 4 H PRN polyethylene glycol 3350 17 g packet (MIRALAX, GLYCOLAX) 17 g ORAL DAILY metoprolol tartrate (short acting) 25 mg tab(s) (LOPRESSOR) 25 mg ORAL q 12 H acetaminophen 650 mg tab(s) (TYLENOL) 650 mg ORAL q 6 H PRN enoxaparin 70 mg injection (LOVENOX) 1 mg/kg/dose SUBCUTANEOUS DAILY meropenem 1 g in NaCl 0.9% 100 mL MB+ (MERREM) 1 g INTRAVENOUS q 12 H ondansetron orally disintegrating 4 mg tab(s) (ZOFRAN ODT) 4 mg ORAL q 6 H PRN predniSONE 5 mg tab(s) (DELTASONE) 5 mg ORAL BID PC predniSONE 2.5 mg tab(s) (DELTASONE) 2.5 mg ORAL DAILY wDINNER pantoprazole DR 40 mg tab(s) (PROTONIX) 40 mg ORAL DAILY (6 AM) saliva substitute combo no.9 15 mL (BIOTENE mouthwash) 15 mL MUCOUS MEMBRANE (TOPICAL MOUTH AND THROAT) 5X/DAY benzocaine-menthol 1 Lozenge (CEPACOL) 1 Lozenge MUCOUS MEMBRANE (TOPICAL MOUTH AND THROAT) q 2 H PRN 0.9% NaCl 3-5 mL 3-5 mL INTRAVENOUS q 12 H lactated ringers infusion 100 mL/hr INTRAVENOUS CONTINUOUS guaiFENesin 200 mg oral liquid (ROBITUSSIN) 200 mg ORAL QID Objective PHYSICAL EXAM: Physical Exam Performed: General: NAD Abdomen: soft, nontender. Bowel sounds active Extremities: Left leg hematoma bandaged. BP 101/57 Pulse 101 Temp (Src) 98.2 (Temporal Artery) Resp 16 Ht 5' 0 (1.52m) Wt 150 lb (68.0kg) SpO2 100% BMI 29.30 kg/(m2). DATA: Diagnostic tests reviewed for today's visit: WBC Date Value Ref Range Status 10/10/2017 8.61 3.98 - 10.04 thou/cmm Final Impression/Recommendations 1) Intra-abdominal abscess- leukocytosis resolved with meropenem. Continue meropenem. Will follow-up tomorrow morning's CT scan- if drain placed then continue meropenem and narrow based on culture. If no drain placed then would change to oral cefdinir plus clindamycin with plan to treat for 2-3 weeks. SIGNATURE: Zhane Mcgovern III, MD PATIENT NAME: Dia Mccullough DATE: October 10, 2017 TIME: 2:48 PM PAGER: [phone] Teetee Mendez, RN, RN 10/10/2017 10:04 PM Addendum [facility] paged to notify that the patient is requesting something for anxiety. Ativan 0.25 mg ordered once by AMMY Figueroa. AMMY Figueroa of [facility] notified that the patient received half of the dose of meropenem and then refused the other half related to GI upset. Previous Version Kaycee Carolina, LANGUAGE ASST.ANESTHESIOLOGIST PHYSICIAN 10/11/2017 4:00 AM Signed [facility] NIGHT TEAM Called by general surgery resident regarding possible per drain in AM after ct complete. She discussed discontinuing lovenox and adding heparin gtt instead overnight. After procedure patient can be placed back on therapeutic lovenox. Discussed change with RN. Kaycee Figueroa ANESTHESIOLOGIST PHYSICIAN [phone] Shauna Pulido MD 10/11/2017 6:43 AM Attested Attestation signed by Khai Lira at 10/11/2017 1:39 PM I personally saw and examined the patient. I reviewed the resident's note. I agree with the resident's assessment and plan unless otherwise noted below. Discussed at length today the utility of again trying to have radiology assess for possible IR drainage as this may help progress her healing along. She did have several reservations but I went over all the details with her and her family member. They do want to proceed with at least repeat imaging and possible drainage today. Emergency General Surgery Progress Note SERVICE DATE: 10/11/2017 SUBJECTIVE: Patient denies abdominal pain, nausea and vomiting. Her main complaint is her LLE. She states that she has a Hematoma and that she cannot walk. She denies fevers, chills, chest pain, and shortness of breath. Tolerating diet DIET NPO OBJECTIVE: Vitals: Temp (24hrs), Av.6 ?C (97.8 ?F), Min:36.1 ?C (97 ?F), Max:36.8 ?C (98.2 ?F) BP 136/75 Pulse 92 Temp 36.8 ?C (98.2 ?F) (Oral) Resp 18 Ht 152.4 cm (5') Wt 70.7 kg (155 lb 13.8 oz) SpO2 99% BMI 30.44 kg/m? O2 Therapy: Room Air IANDO: Date 10/10/17 07 - 10/11/17 0659 10/11/17 07 - 10/12/17 0659 Shift 5045-9253 4868-6811 2503-1514 24 Hour Total 9281-8156 0105-2748 9264-3968 24 Hour Total I N T A K E PO 240 240 PO 240 240 IV 1000 1000 LR 1000 1000 Blood Products 301 301 PRBC Intake (mL) 300 300 Packed Red Blood Cells Number of Units 1 1 Shift Total 301 1240 1541 O U T P U T Urine 1 2 3 Urine Not Saved 1 2 3 # of BMs Number of BMs 2 x 1 x 3 x Shift Total 1 2 3 Weight (kg) 68 68 70.7 70.7 70.7 70.7 70.7 70.7 MEDICATIONS Current Facility-Administered Medications: heparin iv infusion (STANDARD NOMOGRAM) 25,000 units in NaCl 0.45% 250 mL PREMIX 0-3,000 Units/hr INTRAVENOUS CONTINUOUS And heparin RATE CHANGE bolus 1,000-10,000 Units for subtherapeutic aptt results 1,000-10,000 Units INTRAVENOUS PRN heparin nomogram - NO INITIAL BOLUS OTHER ONCE (heparin bolus) HYDROcodone 5 mg - acetaminophen 325 mg tablet (NORCO) 1 tablet ORAL q 4 H PRN polyethylene glycol 3350 17 g packet (MIRALAX, GLYCOLAX) 17 g ORAL DAILY metoprolol tartrate (short acting) 25 mg tab(s) (LOPRESSOR) 25 mg ORAL q 12 H acetaminophen 650 mg tab(s) (TYLENOL) 650 mg ORAL q 6 H PRN meropenem 1 g in NaCl 0.9% 100 mL MB+ (MERREM) 1 g INTRAVENOUS q 12 H ondansetron orally disintegrating 4 mg tab(s) (ZOFRAN ODT) 4 mg ORAL q 6 H PRN predniSONE 5 mg tab(s) (DELTASONE) 5 mg ORAL BID PC predniSONE 2.5 mg tab(s) (DELTASONE) 2.5 mg ORAL DAILY wDINNER pantoprazole DR 40 mg tab(s) (PROTONIX) 40 mg ORAL DAILY (6 AM) saliva substitute combo no.9 15 mL (BIOTENE mouthwash) 15 mL MUCOUS MEMBRANE (TOPICAL MOUTH AND THROAT) 5X/DAY benzocaine-menthol 1 Lozenge (CEPACOL) 1 Lozenge MUCOUS MEMBRANE (TOPICAL MOUTH AND THROAT) q 2 H PRN 0.9% NaCl 3-5 mL 3-5 mL INTRAVENOUS q 12 H lactated ringers infusion 100 mL/hr INTRAVENOUS CONTINUOUS guaiFENesin 200 mg oral liquid (ROBITUSSIN) 200 mg ORAL QID Labs: Recent Labs 10/11/17 0431 10/10/17 0830 10/10/17 0357 10/09/17 0630 NA 142 -- 142 138 K 4.1 -- 3.3* 3.5 CHLOR 109* -- 108* 105 CO2 29 -- 28 24 BUN 20* -- 34* 32* CREAT 0.94 -- 1.63* 1.55* GLUC 90 -- 97 116* ANION 8 -- 9 13 CA 8.0* -- 7.6* 8.0* MG -- -- -- 1.4* P -- -- -- 3.6 ALB -- -- 1.7* -- AST -- -- 5* -- ALT -- -- 12 -- ALKPHOS -- -- 40* -- TBILI -- -- 0.2 -- WBC 7.98 8.18 8.61 -- 15.73* HB 7.4* 7.4* 6.1* -- 7.8* HCT 23.4* 23.4* 19.6* -- 25.4* PLT 207 211 195 -- 264 INR 0.93 -- -- -- Exam: GENERAL: No distress, Alert NEURO: AANDOx3, CN II-XII grossly intact HEENT: normocephalic, atraumatic LUNGS: Unlabored breathing CARDIAC: Regular rate and rhythm as above ABDOMEN: Soft, Non-tendet, non-distended. No rebound or guarding. EXTREMITIES: LLE with chronic venous skin changes wrapped. Motion and sensation intact SKIN: Skin color, texture, turgor normal, No rashes or lesions ASSESSMENT AND PLAN: Active Hospital Problems Diagnosis Date Noted - Intra-abdominal abscess (HCC) 10/08/2017 - Traumatic hematoma of left lower leg 10/08/2017 - Leg hematoma, left, initial encounter 10/08/2017 - Curry disease Chronic - Venous insufficiency (chronic) (peripheral) - CKD (chronic kidney disease) stage 3, GFR 30-59 ml/min 11/28/2014 - Pulmonary emboli (HCC) 01/30/2014 Overview Note: clinically resolved - DVT (deep venous thrombosis) ([facility]) 01/08/2014 Overview Note: recurrent 77 year old female with diverticulitis and presacral fluid/gas collection. - Patient is currently NPO for possible drain placement. - Patient does not think that she wishes to proceed with placement of a drain into the pre-sacral collection. She would like to move forward with a repeat CT scan though so she can make an informed decision. - Leukocytosis improved - On meropenem per ID. Received only half of last dose. Patient requested to stop based on GI upset. - She is improving with conservative management. - she will need to have an outpatient colonoscopy in 6-8 weeks after discharge. Shauna Pulido MD General Surgery PGY-4 October 11, 2017 6:41 AM [facility] #: Pager: [phone] Previous Version Antione Irizarry MD 10/11/2017 11:43 AM Signed CONSULT PROGRESS NOTE SERVICE DATE: 10/11/2017 SERVICE TIME: 8 AM CONSULTING SERVICE: HemOnc Subjective INTERVAL HPI: Patient denies abdominal pain. No dyspnea. Some pain in left leg while standing. On heparin drip Current hospital medications: heparin iv infusion (STANDARD NOMOGRAM) 25,000 units in NaCl 0.45% 250 mL PREMIX 0-3,000 Units/hr INTRAVENOUS CONTINUOUS heparin RATE CHANGE bolus 1,000-10,000 Units for subtherapeutic aptt results 1,000-10,000 Units INTRAVENOUS PRN HYDROcodone 5 mg - acetaminophen 325 mg tablet (NORCO) 1 tablet ORAL q 4 H PRN polyethylene glycol 3350 17 g packet (MIRALAX, GLYCOLAX) 17 g ORAL DAILY metoprolol tartrate (short acting) 25 mg tab(s) (LOPRESSOR) 25 mg ORAL q 12 H acetaminophen 650 mg tab(s) (TYLENOL) 650 mg ORAL q 6 H PRN meropenem 1 g in NaCl 0.9% 100 mL MB+ (MERREM) 1 g INTRAVENOUS q 12 H ondansetron orally disintegrating 4 mg tab(s) (ZOFRAN ODT) 4 mg ORAL q 6 H PRN predniSONE 5 mg tab(s) (DELTASONE) 5 mg ORAL BID PC predniSONE 2.5 mg tab(s) (DELTASONE) 2.5 mg ORAL DAILY wDINNER pantoprazole DR 40 mg tab(s) (PROTONIX) 40 mg ORAL DAILY (6 AM) saliva substitute combo no.9 15 mL (BIOTENE mouthwash) 15 mL MUCOUS MEMBRANE (TOPICAL MOUTH AND THROAT) 5X/DAY benzocaine-menthol 1 Lozenge (CEPACOL) 1 Lozenge MUCOUS MEMBRANE (TOPICAL MOUTH AND THROAT) q 2 H PRN 0.9% NaCl 3-5 mL 3-5 mL INTRAVENOUS q 12 H lactated ringers infusion 100 mL/hr INTRAVENOUS CONTINUOUS guaiFENesin 200 mg oral liquid (ROBITUSSIN) 200 mg ORAL QID Objective PHYSICAL EXAM: Physical Exam Performed: BP 138/63 Pulse 96 Temp (Src) 98.2 (Temporal Artery) Resp 18 Ht 5' 0 (1.52m) Wt 155 lb 13.8 oz (70.7kg) SpO2 99% BMI 30.44 kg/(m2). GENERAL: Alert, no distress, cooperative, SKIN: Scattered bruising. HEENT: Anicteric. LUNGS: Lungs clear to auscultation. Unlabored breathing. CARDIAC: Normal S1 and S2; no rubs, murmurs, or gallops ABDOMEN: Abdomen soft, non-tender, non-distended, BS normal EXTREMITIES: left leg- wrapped in spike. + hematoma. NEURO: No focal deficit. DATA: Diagnostic tests reviewed for today's visit: CBC: Recent Labs 10/11/17 0431 10/10/17 0830 10/09/17 0630 WBC 7.98 8.18 8.61 15.73* HB 7.4* 7.4* 6.1* 7.8* HCT 23.4* 23.4* 19.6* 25.4* PLT 207 211 195 264 MCV 100.0* 99.6* 104.3* 105.4* COAG: Recent Labs 10/11/17 043 APTT 23.4 INR 0.93 BMP: Recent Labs 10/11/17 0431 10/10/17 0357 10/09/17 0630 GLUC 90 97 116* NA 142 142 138 K 4.1 3.3* 3.5 CHLOR 109* 108* 105 CO2 29 28 24 ANION 8 9 13 BUN 20* 34* 32* CREAT 0.94 1.63* 1.55* CHEM: Recent Labs 10/11/17 0431 10/10/17 0357 10/09/17 0630 ALB -- 1.7* -- TPROT -- 4.3* -- CA 8.0* 7.6* 8.0* MG -- -- 1.4* Impression/Recommendations 1. Sigmoid diverticulitis with 5cm pelvic abscess: - possible drain placement? Await a repeat CT scan to make further decision. - Continue ABX. ? 2. Bowel perforation 08/24/17:?she refused surgery at that time and was treated with ABX. ? 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 Used to be on coumadin which was stopped when she developed hematemesis in 08/2017. Developed DVT/PE while off Coumadin. Was placed on lovenox 1mg/kg BID- dose decreased to 1mg/kg daily. Now on iv heparin for possible procedure. - Antiphospholipid ab pending. - Once patient is stable, consider switching back to Coumadin. She is followed by PCP. She could not afford NOAC. ? 4. Severe Anemia: likey due to bleed. Stable now. SIGNATURE: Antione Irizarry MD PATIENT NAME: Dia Mccullough DATE: October 11, 2017 TIME: 8 AM PAGER: [phone] Jose Maria Mittal MD 10/11/2017 9:44 AM Addendum DEPARTMENT OF HOSPITAL MEDICINE PROGRESS NOTE SERVICE DATE: 10/11/2017 SERVICE TIME: 9:22 AM Hospital Medicine/Primary Attending: Jose Maria Mittal MD NIGHT AND WEEKEND COVERAGE: After 7pm please page [phone] CHIEF COMPLAINT: left leg hematoma. Intraabdominal abscess. SUBJECTIVE: no abdominal pain. Had 3 soft BM. No nausea. Pain in left leg when standing otherwise none while laying down. OBJECTIVE: PHYSICAL EXAM: BP 138/63 Pulse 96 Temp (Src) 98.2 (Temporal Artery) Resp 18 Ht 5' 0 (1.52m) Wt 155 lb 13.8 oz (70.7kg) SpO2 99% BMI 30.44 kg/(m2). GENERAL: Alert, no distress, cooperative, SKIN: Skin color, texture, turgor normal. No rashes or lesions. OROPHARYNX: Lips, mucosa, and tongue normal. Teeth and gums normal. Oropharynx normal. LUNGS: Lungs clear to auscultation, Air entry good, Unlabored breathing. CARDIAC: Normal S1 and S2; no rubs, murmurs, or gallops ABDOMEN: Abdomen soft, non-tender, non-distended, BS normal EXTREMITIES: left leg- wrapped in spike. Opened and examined yesterday- has large hematoma in lower leg anteriorly. Small tearing of skin over the hematoma- no active bleeding. Today foot warm. DP present. NEURO: Grossly normal cognition, motor function, and cranial nerves III-XII MEDICATIONS: Current hospital medications: heparin iv infusion (STANDARD NOMOGRAM) 25,000 units in NaCl 0.45% 250 mL PREMIX 0-3,000 Units/hr INTRAVENOUS CONTINUOUS heparin RATE CHANGE bolus 1,000-10,000 Units for subtherapeutic aptt results 1,000-10,000 Units INTRAVENOUS PRN HYDROcodone 5 mg - acetaminophen 325 mg tablet (NORCO) 1 tablet ORAL q 4 H PRN polyethylene glycol 3350 17 g packet (MIRALAX, GLYCOLAX) 17 g ORAL DAILY metoprolol tartrate (short acting) 25 mg tab(s) (LOPRESSOR) 25 mg ORAL q 12 H acetaminophen 650 mg tab(s) (TYLENOL) 650 mg ORAL q 6 H PRN meropenem 1 g in NaCl 0.9% 100 mL MB+ (MERREM) 1 g INTRAVENOUS q 12 H ondansetron orally disintegrating 4 mg tab(s) (ZOFRAN ODT) 4 mg ORAL q 6 H PRN predniSONE 5 mg tab(s) (DELTASONE) 5 mg ORAL BID PC predniSONE 2.5 mg tab(s) (DELTASONE) 2.5 mg ORAL DAILY wDINNER pantoprazole DR 40 mg tab(s) (PROTONIX) 40 mg ORAL DAILY (6 AM) saliva substitute combo no.9 15 mL (BIOTENE mouthwash) 15 mL MUCOUS MEMBRANE (TOPICAL MOUTH AND THROAT) 5X/DAY benzocaine-menthol 1 Lozenge (CEPACOL) 1 Lozenge MUCOUS MEMBRANE (TOPICAL MOUTH AND THROAT) q 2 H PRN 0.9% NaCl 3-5 mL 3-5 mL INTRAVENOUS q 12 H lactated ringers infusion 100 mL/hr INTRAVENOUS CONTINUOUS guaiFENesin 200 mg oral liquid (ROBITUSSIN) 200 mg ORAL QID DATA: Diagnostic tests reviewed for today's visit: CBC, Coags, BMP, Mg, Phos Recent Labs 10/11/17 0431 10/10/17 0830 10/10/17 0357 10/09/17 0630 WBC 7.98 8.18 8.61 -- 15.73* HB 7.4* 7.4* 6.1* -- 7.8* HCT 23.4* 23.4* 19.6* -- 25.4* PLT 207 211 195 -- 264 INR 0.93 -- -- -- APTT 23.4 -- -- -- NA 142 -- 142 138 K 4.1 -- 3.3* 3.5 CHLOR 109* -- 108* 105 CO2 29 -- 28 24 BUN 20* -- 34* 32* CREAT 0.94 -- 1.63* 1.55* GLUC 90 -- 97 116* CA 8.0* -- 7.6* 8.0* MG -- -- -- 1.4* P -- -- -- 3.6 Liver Function, Amylase, AND Lipase Recent Labs 10/10/17 0357 TPROT 4.3* ALB 1.7* ALT 12 AST 5* ALKPHOS 40* TBILI 0.2 Cardiac Enzymes Heme: No results for input(s): RETICP, ABSRETIC, LD, RITO, FE, TIBC, TRANSFERSAT in the last 24 hours. Albumin/Creat Ratio (mg/g) Date Value 11/03/2013 3 Assessment/Plan Patient Active Hospital Problem List: Intra-abdominal abscess (HCC) (10/08/2017) DVT (deep venous thrombosis) (HCC) (01/08/2014) Pulmonary emboli (HCC) (01/30/2014) CKD (chronic kidney disease) stage 3, GFR 30-59 ml/min (11/28/2014) Venous insufficiency (chronic) (peripheral) () Curry disease () Traumatic hematoma of left lower leg (10/08/2017) Leg hematoma, left, initial encounter (10/08/2017) ASSESSMENT: 1. Sigmoid diverticulitis with with 5cm pelvic abscess: minimal symptoms. On Abx- meropenem. Per surgeon who spoke with IR, difficult to drain percutaneously. Surgery team has considered to place drain surgically - ?transrectal or laparoscopically placed drain today. But patient is reluctant. I believe plan at this time would be to continue abx for now and follow up with imaging unless she becomes symptomatic- await surgery and ID to round. ? 2. Bowel perforation 08/24/17:?she refused surgery at that time and was treated with abx. Survived. ? 3. 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 Used to be on coumadin which was stopped when she developed hematemesis. Since her last PE/PE few weeks, was placed on lovenox 1mg/kg BID- dose decreased to 1mg/kg daily. Overnight lovenox was switched to iv heparin for possible procedure. Antiphospholipid ab pending. ? 4. Left leg bleeding/ hematoma: probably due to higher dose of lovenox for?CKD 3-4 Currently wrapped with dressing and SPIKE. ? 5. Episode of hematemesis 5 weeks ago while on coumadin-?managed with vitk. No scope done. ? 6. SVT this am: better with metoprolol. ? 7. Severe Anemia: due to bleed.? CKD and recent conditions contributing. No evidence of iron def. ? 8. Addision's disease: ? 9. CKD3 PLAN: Continue abx. Monitor for symptoms- nausea. Await further input from Surgery and ID. May switch back to lovenox if no procedure. Antiphospholipid ab pending- Hem/onc to decide on final anticoagulation treatment (coumadin). Cannot afford NOAC. VTE Prophylaxis: Patient is already anti-coagulated. Disposition: Home Plan of care discussed with: Patient SIGNATURE: Jose Maria Mittal MD PATIENT NAME: Dia Mccullough DATE: October 11, 2017 TIME: 9:22 AM PAGER/CONTACT #: [phone] Previous Version Chaplain Daley Chaplain 10/11/2017 12:05 PM Signed SPIRITUALCARE Spiritual Care Visit- Brief Note Name: Dia Mccullough Date: October 11, 2017 Notes: Per PT has multiple health issues and was scheduled for a test. She looked to be calm, took a prayer and was thankful for the [place] support. Paint Line Production Supervisor Signature: Chaplain Thuy To contact the Spiritual Care Department: Please call [phone] or Page the On-Call Paint Line Production Supervisor at pager [phone] Thank you for the opportunity to be of service. This is an electronically created document. IF PRINTED, PLEASE DO NOT REMOVE FROM THE CHART OR MODIFY PRINTED COPY. Chaplain Daley Chaplain 10/11/2017 12:06 PM Signed Spiritual Care Record ? Anointing/[place] PATIENT NAME: Dia Mccullough DATE: October 11, 2017 NOTE: Patient was anointed by Fr. ireland from [facility] on (date): 10/11/17. Signature: Chaplain Thuy Question? Please contact the Spiritual Care Department for assistance. This is an electronically created document. IF PRINTED, PLEASE DO NOT REMOVE FROM THE CHART OR MODIFY PRINTED COPY. Estrella Gómez RN, RN 10/11/2017 1:39 PM Signed [facility]O NURSE PROGRESS NOTE SERVICE DATE: 10/11/2017 SERVICE TIME: 12:55 PM REFERRED BY: Solange/Krista GONZALES VISIT WITH: Patient REASON FOR VISIT: Coping issues, Grief and loss, Lonliness, New diagnosis and Serious illness/trauma CONDITION: Surgical INTERVENTIONS: Emotional support, Prayer with patient, Stress booklets and Therapeutic listening TIME SPENT (minutes): 30 Patient receptive to visit. Patient talked freely about her past and present health issues. Patient states that she is just tired of it all and wished she could go home. Offered encouragement and reassurance. Offered some items to help with stress. Had prayer with patient. SIGNATURE: Estrella Gómez RN PATIENT NAME: Dia Mccullough DATE: October 11, 2017 TIME: 1:32 PM Laly Justice RN, RN 10/11/2017 3:18 PM Signed WOUND CARE NURSE CONSULT NOTE SERVICE DATE: 10/11/2017 SERVICE TIME: 1450 REASON FOR VISIT: Wound TIME SPENT (minutes): 30 Documentation from Wound Expert can be found in scanned documents. Patient seen by Carol Neal BUSINESS ADMINISTRATION PROGRAM CHAIR and lacey RN. Left lower leg hematoma with area of congealed blood and distal fluid filled area. Xeroform, dry gauze dressing, and SPIKE wrap daily. Plastic Surgery consulted for hematoma evacuation. Wound care to follow. SIGNATURE: Laly Justice RN PATIENT NAME: Dia Mccullough DATE: October 11, 2017 TIME: 3:13 PM CONTACT#: [id number] Misael Wei MD 10/11/2017 3:38 PM Signed INFECTIOUS DISEASE CONSULT PROGRESS NOTE SERVICE DATE: 10/11/2017 SERVICE TIME: 3:22 PM Subjective INTERVAL HISTORY / PERTINENT Review of Systems Constitutional: Negative for fever. Gastrointestinal: Negative for abdominal pain. Was constipated, given miralax, now having increased stool output but not watery and only 2 so far today. Pt thinks from antibiotic and refused it earlier. Going for repeat CT abd and possible drain placement. Current Facility-Administered Medications: heparin iv infusion (STANDARD NOMOGRAM) 25,000 units in NaCl 0.45% 250 mL PREMIX 0-3,000 Units/hr INTRAVENOUS CONTINUOUS And heparin RATE CHANGE bolus 1,000-10,000 Units for subtherapeutic aptt results 1,000-10,000 Units INTRAVENOUS PRN HYDROcodone 5 mg - acetaminophen 325 mg tablet (NORCO) 1 tablet ORAL q 4 H PRN polyethylene glycol 3350 17 g packet (MIRALAX, GLYCOLAX) 17 g ORAL DAILY metoprolol tartrate (short acting) 25 mg tab(s) (LOPRESSOR) 25 mg ORAL q 12 H acetaminophen 650 mg tab(s) (TYLENOL) 650 mg ORAL q 6 H PRN meropenem 1 g in NaCl 0.9% 100 mL MB+ (MERREM) 1 g INTRAVENOUS q 12 H ondansetron orally disintegrating 4 mg tab(s) (ZOFRAN ODT) 4 mg ORAL q 6 H PRN predniSONE 5 mg tab(s) (DELTASONE) 5 mg ORAL BID PC predniSONE 2.5 mg tab(s) (DELTASONE) 2.5 mg ORAL DAILY wDINNER pantoprazole DR 40 mg tab(s) (PROTONIX) 40 mg ORAL DAILY (6 AM) saliva substitute combo no.9 15 mL (BIOTENE mouthwash) 15 mL MUCOUS MEMBRANE (TOPICAL MOUTH AND THROAT) 5X/DAY benzocaine-menthol 1 Lozenge (CEPACOL) 1 Lozenge MUCOUS MEMBRANE (TOPICAL MOUTH AND THROAT) q 2 H PRN 0.9% NaCl 3-5 mL 3-5 mL INTRAVENOUS q 12 H lactated ringers infusion 100 mL/hr INTRAVENOUS CONTINUOUS guaiFENesin 200 mg oral liquid (ROBITUSSIN) 200 mg ORAL QID Objective PHYSICAL EXAM: Vital Signs: BP 138/63 Pulse 96 Temp 36.8 ?C (98.2 ?F) (Temporal Artery) Resp 18 Ht 152.4 cm (5') Wt 70.7 kg (155 lb 13.8 oz) SpO2 99% BMI 30.44 kg/m? Physical Exam Abdominal: Soft. She exhibits no distension. There is no tenderness. Musculoskeletal: Left leg dressing in place. Reviewed Wound Center photo- has subcu fluid collection, hematoma. Plastics to be consulted. Vitals reviewed. DATA: Diagnostic Tests Reviewed for Today's Visit: Most recent labs Micro: No data Recent Labs 10/11/17 0431 10/10/17 0830 10/10/17 0357 10/09/17 0630 WBC 7.98 8.18 8.61 -- 15.73* HB 7.4* 7.4* 6.1* -- 7.8* HCT 23.4* 23.4* 19.6* -- 25.4* PLT 207 211 195 -- 264 NEUTNUM 6.20* 6.63* -- 14.06* CREAT 0.94 -- 1.63* 1.55* No results found for: VANCORA Impression/Recommendations Principal Problem: Intra-abdominal abscess (HCC) POA: Yes Assessment AND Plan: await repeat ct, possible percutaneous drain. Sepsis- improving Traumatic hematoma of left lower leg POA: Yes Assessment AND Plan: watch for sign of infection. If debrided per Plastics, send culture. Loose stools likely related to miralax, possibly meropenem, but she needs to continue the antibiotic. I have discussed with her. Alternative therapy eg a cephalosporin would require addition of anaerobic coverage, since she is allergic to flagyl would need to give clindamycin or tigecycline, each of which have their own issues. Resolved Problems: * No resolved hospital problems. * SIGNATURE: Misael Wei MD PATIENT NAME: Dia Mccullough DATE: October 11, 2017 TIME: 3:22 PM PAGER/CONTACT #: [phone] Phong Rush MD 10/11/2017 3:56 PM Signed UPDATED HISTORY AND PHYSICAL EXAMINATION Date: 10/11/17 Name: Dia Mccullough PHYSICAL EXAM MUST BE COMPLETED ON ADMISSION The History and Physical (completed in the past 30 days) has been reviewed and the patient has been examined. The contents accurately reflect the patient's condition with the following additions or revisions since the HANDP was completed. Examination indicates no changes. This HANDP can be found in the Electronic Medical Record dated 10/08/2017 @ 11:51 PM. Phong Rush MD 10/11/2017 4:31 PM Signed INTERVENTIONAL RADIOLOGY POST PROCEDURE NOTE DATE: 10/11/17 NAME: Dia Mccullough LOG ID: [id number] Pre-Procedure Diagnosis: Pelvic abscess Cooker Meal: Surgeon(s) and Role: * Phong Rush - Primary Procedure: CT guided placement of abscess drainage catheter Anesthesia: Moderate sedation Findings: ~ 25 cc pus. 8 Fr 35 cm Skater APDL drain placed. Estimated Blood Loss: 0 ml Specimen: To microbiology Complications: None Post-Op/Post-Procedure Diagnosis: Pelvic abscess Plan: CT scan of pelvis and abscessogram in one week. Antione Irizarry MD 10/12/2017 8:33 AM Signed CONSULT PROGRESS NOTE SERVICE DATE: 10/12/2017 SERVICE TIME: 8 AM CONSULTING SERVICE: HemOnc Subjective INTERVAL HPI: CT guided placement of abscess drainage catheter on 10/11/17. Patient denies abdominal pain. No dyspnea. Some pain in left leg while standing. On Lovenox. Current hospital medications: acetaminophen 650 mg tab(s) (TYLENOL) 650 mg ORAL q 4 H PRN iv contrast (radiology procedure) INTRAVENOUS DIRECTED PRN enteric contrast (radiology procedure) ORAL DIRECTED PRN enoxaparin 70 mg injection (LOVENOX) 1 mg/kg/dose SUBCUTANEOUS q 24 HR HYDROcodone 5 mg - acetaminophen 325 mg tablet (NORCO) 1 tablet ORAL q 4 H PRN polyethylene glycol 3350 17 g packet (MIRALAX, GLYCOLAX) 17 g ORAL DAILY metoprolol tartrate (short acting) 25 mg tab(s) (LOPRESSOR) 25 mg ORAL q 12 H acetaminophen 650 mg tab(s) (TYLENOL) 650 mg ORAL q 6 H PRN meropenem 1 g in NaCl 0.9% 100 mL MB+ (MERREM) 1 g INTRAVENOUS q 12 H ondansetron orally disintegrating 4 mg tab(s) (ZOFRAN ODT) 4 mg ORAL q 6 H PRN predniSONE 5 mg tab(s) (DELTASONE) 5 mg ORAL BID PC predniSONE 2.5 mg tab(s) (DELTASONE) 2.5 mg ORAL DAILY wDINNER pantoprazole DR 40 mg tab(s) (PROTONIX) 40 mg ORAL DAILY (6 AM) saliva substitute combo no.9 15 mL (BIOTENE mouthwash) 15 mL MUCOUS MEMBRANE (TOPICAL MOUTH AND THROAT) 5X/DAY benzocaine-menthol 1 Lozenge (CEPACOL) 1 Lozenge MUCOUS MEMBRANE (TOPICAL MOUTH AND THROAT) q 2 H PRN 0.9% NaCl 3-5 mL 3-5 mL INTRAVENOUS q 12 H lactated ringers infusion 100 mL/hr INTRAVENOUS CONTINUOUS guaiFENesin 200 mg oral liquid (ROBITUSSIN) 200 mg ORAL QID Objective PHYSICAL EXAM: Physical Exam Performed: BP 150/77 Pulse 89 Temp (Src) 99 (Oral) Resp 18 Ht 5' 0 (1.52m) Wt 155 lb 13.8 oz (70.7kg) SpO2 99% BMI 30.44 kg/(m2). GENERAL: Alert, no distress, cooperative, SKIN: Scattered bruising. HEENT: Anicteric. LUNGS: Lungs clear to auscultation. Unlabored breathing. CARDIAC: Normal S1 and S2; no rubs, murmurs, or gallops ABDOMEN: Abdomen soft, non-tender, non-distended, BS normal EXTREMITIES: left leg- wrapped in spike. + hematoma. NEURO: No focal deficit. DATA: Diagnostic tests reviewed for today's visit: CBC: Recent Labs 10/12/17 0635 10/11/17 0431 10/10/17 0830 10/09/17 0630 WBC 7.81 8.18 7.98 8.61 15.73* HB 7.4* 7.4* 7.4* 6.1* 7.8* HCT 24.3* 23.4* 23.4* 19.6* 25.4* PLT 224 211 207 195 264 MCV 102.5* 99.6* 100.0* 104.3* 105.4* COAG: Recent Labs 10/11/17 1235 10/11/17430 APTT 73.5* 23.4 INR -- 0.93 BMP: Recent Labs 10/11/17 0431 10/10/17 0357 10/09/17 0630 GLUC 90 97 116* NA 142 142 138 K 4.1 3.3* 3.5 CHLOR 109* 108* 105 CO2 29 28 24 ANION 8 9 13 BUN 20* 34* 32* CREAT 0.94 1.63* 1.55* CHEM: Recent Labs 10/11/1743010/10/17 0357 10/09/17 0630 ALB -- 1.7* -- TPROT -- 4.3* -- CA 8.0* 7.6* 8.0* MG -- -- 1.4* Impression/Recommendations 1. Sigmoid diverticulitis with 5cm pelvic abscess: - s/p CT guided placement of abscess drainage catheter on 10/11/17 - Continue ABX. ? 2. Bowel perforation 08/24/17:?she refused surgery at that time and was treated with ABX. ? 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 Used to be on coumadin which was stopped when she developed hematemesis in 08/2017. Developed DVT/PE while off Coumadin. Was placed on lovenox 1mg/kg BID- dose decreased to 1mg/kg daily due to hematoma. - Antiphospholipid ab pending. - Once patient is stable, consider switching back to Coumadin. She is followed by PCP for INR monitoring. She could not afford NOAC. ? 4. Severe Anemia: likey secondary to bleed and myelosuppression from antibiotics. Stable now. SIGNATURE: Antione Irizarry MD PATIENT NAME: Dia Mccullough DATE: October 12, 2017 TIME: 8 AM PAGER: [phone] Shauna Pulido MD 10/12/2017 9:21 AM Attested Attestation signed by Khai Lira at 10/12/2017 1:22 PM I personally saw and examined the patient. I reviewed the resident's note. I agree with the resident's assessment and plan unless otherwise noted below. Emergency General Surgery Progress Note SERVICE DATE: 10/12/2017 SUBJECTIVE: Drain placed into pre-sacral fluid collection by IR yesterday. Patient complains of some tenderness at the drain entry site. Denies intra-abdominal pain. +BM. Denies nausea and vomiting. Tolerating diet DIET REGULAR OBJECTIVE: Vitals: Temp (24hrs), Av.8 ?C (98.2 ?F), Min:36.2 ?C (97.2 ?F), Max:37.2 ?C (99 ?F) BP 150/77 Pulse 89 Temp 37.2 ?C (99 ?F) (Oral) Resp 18 Ht 152.4 cm (5') Wt 70.7 kg (155 lb 13.8 oz) SpO2 99% BMI 30.44 kg/m? O2 Therapy: Room Air IANDO: Date 10/11/17699 - 10/12/1765810/12/17699 - 10/13/17 0659 Shift 7929-4737 5469-1955 8718-2438 24 Hour Total 3614-0870 8686-0868 0111-2442 24 Hour Total I N T A K E PO 360 120 480 PO 360 120 480 IV 1100 1100 1000 1000 LR 1000 1000 1000 1000 Meropenem (Merrem) 100 100 Irrigants 5 5 Irrigant/Flush Amount In (Drain/Tube 10/11/17 [facility] Left Lower Quadrant Abdomen Drain #1) 5 5 Shift Total 6010 317 3970 1000 1000 O U T P U T Urine 2 3 5 Urine Not Saved 2 3 5 Tubes 14 12.5 26.5 Drain/Tube Output (Drain/Tube 10/11/17 [facility]y Sherwood Left Lower Quadrant Abdomen Drain #1) 14 12.5 26.5 # of BMs Number of BMs 1 x 1 x Shift Total 16 15.5 31.5 Weight (kg) 70.7 70.7 70.7 70.7 70.7 70.7 70.7 70.7 MEDICATIONS Current Facility-Administered Medications: acetaminophen 650 mg tab(s) (TYLENOL) 650 mg ORAL q 4 H PRN iv contrast (radiology procedure) INTRAVENOUS DIRECTED PRN enteric contrast (radiology procedure) ORAL DIRECTED PRN enoxaparin 70 mg injection (LOVENOX) 1 mg/kg/dose SUBCUTANEOUS q 24 HR HYDROcodone 5 mg - acetaminophen 325 mg tablet (NORCO) 1 tablet ORAL q 4 H PRN polyethylene glycol 3350 17 g packet (MIRALAX, GLYCOLAX) 17 g ORAL DAILY metoprolol tartrate (short acting) 25 mg tab(s) (LOPRESSOR) 25 mg ORAL q 12 H acetaminophen 650 mg tab(s) (TYLENOL) 650 mg ORAL q 6 H PRN meropenem 1 g in NaCl 0.9% 100 mL MB+ (MERREM) 1 g INTRAVENOUS q 12 H ondansetron orally disintegrating 4 mg tab(s) (ZOFRAN ODT) 4 mg ORAL q 6 H PRN predniSONE 5 mg tab(s) (DELTASONE) 5 mg ORAL BID PC predniSONE 2.5 mg tab(s) (DELTASONE) 2.5 mg ORAL DAILY wDINNER pantoprazole DR 40 mg tab(s) (PROTONIX) 40 mg ORAL DAILY (6 AM) saliva substitute combo no.9 15 mL (BIOTENE mouthwash) 15 mL MUCOUS MEMBRANE (TOPICAL MOUTH AND THROAT) 5X/DAY benzocaine-menthol 1 Lozenge (CEPACOL) 1 Lozenge MUCOUS MEMBRANE (TOPICAL MOUTH AND THROAT) q 2 H PRN 0.9% NaCl 3-5 mL 3-5 mL INTRAVENOUS q 12 H lactated ringers infusion 100 mL/hr INTRAVENOUS CONTINUOUS guaiFENesin 200 mg oral liquid (ROBITUSSIN) 200 mg ORAL QID Labs: Recent Labs 10/12/17 0635 10/11/17 0431 10/10/17 0357 NA -- 142 -- 142 K -- 4.1 -- 3.3* CHLOR -- 109* -- 108* CO2 -- 29 -- 28 BUN -- 20* -- 34* CREAT -- 0.94 -- 1.63* GLUC -- 90 -- 97 ANION -- 8 -- 9 CA -- 8.0* -- 7.6* ALB -- -- -- 1.7* AST -- -- -- 5* ALT -- -- -- 12 ALKPHOS -- -- -- 40* TBILI -- -- -- 0.2 WBC 7.81 8.18 7.98 < > -- HB 7.4* 7.4* 7.4* < > -- HCT 24.3* 23.4* 23.4* < > -- PLT 224 211 207 < > -- INR -- 0.93 -- -- < > = values in this interval not displayed. Exam: GENERAL: No distress, Alert NEURO: AANDOx3, CN II-XII grossly intact HEENT: normocephalic, atraumatic LUNGS: Unlabored breathing CARDIAC: Regular rate and rhythm as above ABDOMEN: Soft, Non-tendet, non-distended. No rebound or guarding. TTP at LLQ drain site. EXTREMITIES: LLE with chronic venous skin changes wrapped. Motion and sensation intact SKIN: Skin color, texture, turgor normal, No rashes or lesions ASSESSMENT AND PLAN: Active Hospital Problems Diagnosis Date Noted - Intra-abdominal abscess (HCC) 10/08/2017 - Traumatic hematoma of left lower leg 10/08/2017 - Leg hematoma, left, initial encounter 10/08/2017 - Curry disease Chronic - Venous insufficiency (chronic) (peripheral) - CKD (chronic kidney disease) stage 3, GFR 30-59 ml/min 11/28/2014 - Pulmonary emboli (HCC) 01/30/2014 Overview Note: clinically resolved - DVT (deep venous thrombosis) ([facility]) 01/08/2014 Overview Note: recurrent 77 year old female with diverticulitis and presacral fluid/gas collection. -Regular diet - Continue ADRIÁN drain - Abx per ID - IR plans CT pelvis with abscessogram in 1 week. - Therapeutic lovenox per hematology - she will need to have an outpatient colonoscopy in 6-8 weeks after discharge. Shauna Puldio MD General Surgery PGY-4 October 12, 2017 9:21 AM [facility] #: Pager: [phone] Joan Masters, RN, RN 10/12/2017 10:02 AM Signed CARE MANAGEMENT: ASSESSMENT AND DISCHARGE PLAN SERVICE DATE: 10/12/2017 SERVICE TIME: 955 PRIMARY CARE PHYSICIAN: Mallorie Wheeler MD ADMISSION STATUS: Inpatient Needs Prior to Discharge: Wound Care;Home Care Order;OT/PT Evaluation MEDICAL: Patient/Charrer Stated Goals: To improve my functional status Health Insurance: [employer] MEDICARE PPO [employer] Medicare Health Issues Impacting Discharge Plan: None Last Admission Date: Previous admit date: 08/24/2017 Is this Within the Past 30 days? No Advance Directive: Health Literacy: 1. How often do you need to have someone help you when you read instructions, pamphlets, or other written material from your doctor or pharmacy? Never - 1 2. How confident are you filling out medical forms by yourself? Extremely - 1 If Patient scores > 3 on either question, the following interventions were put into place: Patient did not score > 3 FUNCTIONAL AND COGNITIVE/BEHAVIORAL PRIOR TO ADMISSION: Baseline Mental Status: Alert AND Oriented, Person, Place , Time and Situation Functional Status: Independent Does Patient Currently Receive Any Community Services or Home Care? None Equipment Prior to Admission: Walker Wheelchair Has the Patient Been in a Correction Facility in the Past 30 days? No SOCIAL: Living Arrangement: Home Lives With: Alone Financial Resources: Retired Primary Contact: Extended Emergency Contact Information Primary Emergency Contact: Luis Mccullough Relation: Son Supportive: Yes Other Important Patient Contacts: None Caregiver Assessment: Caregiver is ready, willing and able to meet the patient's needs as recommended by the inter-professional team? Yes Patient's transition needs and plan for meeting these needs: Family available to help as needed. Does the patient have an acute stroke diagnosis, or has the patient had a stroke during this admission? No Medication Adherence: I am convinced of the importance of my prescription medication: Agree completely - 0 I worry that my prescription medication will do more harm than good to me Disagree completely - 0 I feel financially burdened by my [id number] expenses for my prescription medication: Disagree mostly -0 Patient is categorized as low risk < 2 Are you interested in bedside delivery of your medications? Yes Food Concerns: In the Last Month, Have You had Trouble Getting Food? No trouble getting food During the Last Month, Have You Worried Whether Your Food Would Run Out Before You Had Enough Money to Buy More? No Is the Patient Psychosocially Complex? No ASSESSMENT AND PLAN: Medical Needs: Fall risk or frequent falls and Wound Care - active or potential Psychosocial Needs: None FREEDOM OF CHOICE EXPLAINED: Yes HHC POTENTIAL TRANSITION PLANS Home Home [facility]dc OT/PT Chart reviewed, spoke with RN. Spoke with pt at bedside who reports she is from a single story home alone, but has family support. Would like [facility] for wound care and would be agreeable to home PT/OT if needed. Await PT/OT eval (ordered) for further planning. SIGNATURE: Joan Masters RN PATIENT NAME: Dia Mccullough DATE: October 12, 2017 TIME: 9:56 AM PAGER/CONTACT #: [phone] Lacy Valdez MD 10/12/2017 8:12 PM Signed Plastic Surgery Consult Note: HPI: 77 y/o F who was admitted 10/11/17 for abdominal abscess/phlegmon found on CT at OSH. Patient has a complicated hospital course after being diagnosed with diverticulitis approx 4-5 weeks ago. She had spent some time in Hospice facility after declining operative intervention. She also has a history of DVT/PE with history of oral anticoagulation use. This was stopped and then subsequently restarted after a diagnosis of a new DVT of her lower extremities recently. Patient states that a couple of days ago she noticed bleeding and oozing from her LLE. She doesn't recall injuring it. It did begin draining and since then the pain has significantly reduced. Plastic surgery was evaluated for possible debridement of a LLE hematoma. 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 - Inflammatory polyarthropathy - Normocytic anemia - PE (pulmonary thromboembolism) (HCC) 01/05/14 Bilat, extensive - Pulmonary embolism without acute cor pulmonale - Pure hypercholesterolemia - Sicca syndrome - Unspecified essential hypertension - Unspecified gastritis and gastroduodenitis without mention of hemorrhage - Urinary tract infection, site not specified - Venous insufficiency (chronic) (peripheral) - Vitamin D deficiency PAST SURGICAL HISTORY Procedure Laterality Date - CATARACT EXTRACTION HX Right - PARTIAL HIP REPLACEMENT Right 04/2013 - PAST SURGICAL HISTORY OF hernia repair - PAST SURGICAL HISTORY OF 11/2012 L3-L4 laminectomy and fusion - PAST SURGICAL HISTORY OF 11/2012 Back fusion surgery - TOTAL HIP REPLACEMENT 05/10/2013 right hip replacement - VENOUS DUPLEX BOTH LOWER EXTREMITIES 05/12/2016 No current facility-administered medications on file prior to encounter. Current Outpatient Prescriptions on File Prior to Encounter: predniSONE (DELTASONE) 5 mg tablet Take 5 mg by mouth twice daily. ondansetron orally disintegrating (ZOFRAN ODT) 4 mg disintegrating tablet Take 1 tablet by mouth every 6 hours as needed for Nausea/Vomiting. hydrochlorothiazide (HYDRODIURIL, ESIDRIX) 25 mg tablet Take 1 tablet by mouth once daily. 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 [OTHER] Other PE: 10/12/17 0346 10/12/17 0755 10/12/17 1602 10/12/17 1943 BP: 160/87 150/77 140/66 147/74 Pulse: 98 89 102 107 Resp: Temp: 36.2 ?C (97.2 ?F) 37.2 ?C (99 ?F) 37 ?C (98.6 ?F) 36.7 ?C (98.1 ?F) TempSrc: Temporal Artery Oral Oral Oral SpO2: 99% 99% 100% 99% Weight: Height: Gen: Awake, alert, coherent. Lower extremities: Bilateral edema with signs of chronic venous insufficiency. LLE: ~15X20 cm area of hemorrhagic blister-partially open with extruding clot over pretibial area. No active bleeding. Surrounding skin with ecchymosis extending up midshaft and down through dorsum and plantar aspect of heel. Signs of chronic venous insufficiency and swelling. No signs of infection or erythema. A/P: 77 y/o F with LLE hematoma on anticoagulation -We discussed the options of both surgical and nonsurgical intervention for this wound. Patient has a large LLE hematoma that would possibly benefit from debridement in the OR. She would likely be left with a large LE wound/defect that would require wound care and possible skin grafting in the future. This would require holding her anticoagulation for the perioperative period. She also has poor donor site availability given her thin skin and steroid use. The benefit of debridement would be evacuation of clot, faster clot resorption, and excision of necrotic skin that could potentially be a nidus for infection. -At this time patient would like to proceed with nonsurgical treatment. She feels that debridement in the OR with plans for skin grafting in the future would still leave her with an open wound and a new donor site wound. Nonsurgical care would involve continued local wound care with planned follow up with the wound care center in [place] for close follow up. She understands this will likely take months to heal and she does run the risk of developing an infection of this leg. -Discussed with Dr. Casey. MD Misael Mireles MD 10/12/2017 1:50 PM Signed INFECTIOUS DISEASE CONSULT PROGRESS NOTE SERVICE DATE: 10/12/2017 SERVICE TIME: 1:46 PM Subjective INTERVAL HISTORY / PERTINENT Review of Systems Constitutional: Negative for fever (emp 37.2). Gastrointestinal: Positive for abdominal pain (after drain placed). Pt taking and tolerating meropenem. Current Facility-Administered Medications: acetaminophen 650 mg tab(s) (TYLENOL) 650 mg ORAL q 4 H PRN iv contrast (radiology procedure) INTRAVENOUS DIRECTED PRN enteric contrast (radiology procedure) ORAL DIRECTED PRN enoxaparin 70 mg injection (LOVENOX) 1 mg/kg/dose SUBCUTANEOUS q 24 HR HYDROcodone 5 mg - acetaminophen 325 mg tablet (NORCO) 1 tablet ORAL q 4 H PRN polyethylene glycol 3350 17 g packet (MIRALAX, GLYCOLAX) 17 g ORAL DAILY metoprolol tartrate (short acting) 25 mg tab(s) (LOPRESSOR) 25 mg ORAL q 12 H acetaminophen 650 mg tab(s) (TYLENOL) 650 mg ORAL q 6 H PRN meropenem 1 g in NaCl 0.9% 100 mL MB+ (MERREM) 1 g INTRAVENOUS q 12 H ondansetron orally disintegrating 4 mg tab(s) (ZOFRAN ODT) 4 mg ORAL q 6 H PRN predniSONE 5 mg tab(s) (DELTASONE) 5 mg ORAL BID PC predniSONE 2.5 mg tab(s) (DELTASONE) 2.5 mg ORAL DAILY wDINNER pantoprazole DR 40 mg tab(s) (PROTONIX) 40 mg ORAL DAILY (6 AM) saliva substitute combo no.9 15 mL (BIOTENE mouthwash) 15 mL MUCOUS MEMBRANE (TOPICAL MOUTH AND THROAT) 5X/DAY benzocaine-menthol 1 Lozenge (CEPACOL) 1 Lozenge MUCOUS MEMBRANE (TOPICAL MOUTH AND THROAT) q 2 H PRN 0.9% NaCl 3-5 mL 3-5 mL INTRAVENOUS q 12 H lactated ringers infusion 100 mL/hr INTRAVENOUS CONTINUOUS guaiFENesin 200 mg oral liquid (ROBITUSSIN) 200 mg ORAL QID Objective PHYSICAL EXAM: Vital Signs: BP 150/77 Pulse 89 Temp 37.2 ?C (99 ?F) (Oral) Resp 18 Ht 152.4 cm (5') Wt 70.7 kg (155 lb 13.8 oz) SpO2 99% BMI 30.44 kg/m? Physical Exam Abdominal: Soft. There is tenderness (around site of drain). Bloody purulent fluid in drain. Vitals reviewed. DATA: Diagnostic Tests Reviewed for Today's Visit: Most recent labs and imaging results. Micro: Abscess fluid cult pending, has GPC and GNB on gm stain Recent Labs 10/12/17 0635 10/11/17 0431 10/10/17 0830 10/10/17 0357 WBC 7.81 8.18 7.98 8.61 -- HB 7.4* 7.4* 7.4* 6.1* -- HCT 24.3* 23.4* 23.4* 19.6* -- PLT 224 211 207 195 -- NEUTNUM 5.87 6.20* 6.63* -- CREAT -- 0.94 -- 1.63* No results found for: VANCORA Impression/Recommendations Principal Problem: Intra-abdominal abscess (HCC) POA: Yes Assessment AND Plan: continue iv meropenem, await culture. CKD (chronic kidney disease) stage 3, GFR 30-59 ml/min POA: Yes Assessment AND Plan: Resolved Problems: * No resolved hospital problems. * SIGNATURE: Miasel Wei MD PATIENT NAME: Dia Mccullough DATE: October 12, 2017 TIME: 1:46 PM PAGER/CONTACT #: [phone] ROLDAN Medina/Marina 10/12/2017 2:52 PM Signed Occupational Therapy Evaluation SERVICE DATE: 10/12/2017 SERVICE TIME: 1336 to 1406 ROOM: [place] [address] Recommended Discharge Disposition: Subacute/SNF Recommended Discharge Disposition Comments: Pt is limited with her mobility and ADL participation due to the L LE hematoma and abdominal pain from her abdominal abcess/drain placement. Pt has been to [place] [facility] in the past and had a very good experince Justification For Post Acute Needs: Anticipate that patient will require daily (5x/wk) skilled therapy in a post-acute facility setting at the time of acute hospital discharge;Medically complex;Motivated;Willing to participate;Living the community premorbidly OT Recommendations to Nursing: With assist of 2 people;Transfer to Chair;ADL?s in chair;OOB for meals;Bedside Commode for Toileting Equipment: Wheeled Walker OT 6 Clicks Score: 14 Precautions/Activity Restrictions: Fall Risk Isolation Type: None ASSESSMENT: OT Evaluation Moderate Complexity: Occupational Profile - Extended review of patient's medical record completed including patient's physical, cognitive, and psycho-social history (please see current hospital course of evaluation). Occupational Performance - Pt presents with deficits in feeding, grooming, UE bathing/dressing, LE bathing/dressing, functional transfers, functional mobility, decreased safety awareness, decreased insight into deficits Complexity in Clinical Decision Making - The extent of clinical reasoning was moderate, several treatment options present for the patient, need for modification during the evaluation was minimal/moderate, comorbidities affecting occupational performance: Curry's, CKD, DVT/PE, fibromyalgia, HTN, R hip endo 2013 back sx Patient Disposition at Start of Session: Supine in Bed Patient Disposition at End of Session: OOB in Chair;Call Suggs in Reach Tolerance Limited By Pain (throbbing with L LE down) Occupational Therapy Problem List: Education Deficit;Safety Deficits;Impaired Self Care;Decreased Activity Tolerance;Decreased Strength;Functional Mobility Impairment;Balance Impaired Patient /Caregiver Goals: Go To Rehab Goals for Plan of Care: Grooming with: Minimal Assistance Upper Body Bathing with: Minimal Assistance Upper Body Dressing with: Minimal Assistance Lower Body Bathing with: Moderate Assistance Lower Body Dressing with: Moderate Assistance Toilet Hygiene with: Minimal Assistance Toilet Transfer with: Minimal Assistance (BSC) Tolerate (minutes of functional activity): 25 Functional Activity with: Minimal Assistance Additional Goal 1: Pt to demo static stand ADL for at least 4 min A Additional Goal 2: Pt to demo good safety with OOB ADLs Transfer: bed mobility with min A Rehab Potential: Good PLAN: Treatment Frequency (times per week): 3 (1-3) Current admission Treatment Interventions: Education;Self Care / Home Management;Functional Mobility Training;Strengthening Plan of Care developed with: Patient TREATMENT INTERVENTIONS: Therapy Diagnosis: Reduced mobility-other;Decreased activities of daily living (ADL);Muscle Weakness (generalized);Unsteadiness on feet Interventions Provided: Evaluation;Self Fdc Management (10130) $ Evaluation-Moderate (36927) Billed Units: 1 unit Self Fdc Management (15322) Treatment Minutes: 14 1 unit Skilled Intervention(s): Facilitated edge of bed ADLs of oral and facial hygiene at edge of bed with L LE propped up to increase ADL participation, increase activity tolerance in unsupported sitting. Provided assistance, cues, fall guarding assist, sequencing to safely complete ADLs. Facilitated safe transfer to chair using wheeled walker and pivoting on R LE/hopping on R LE. Elevated L LE with pillows/blankets due to pain/increased throbbing after movement. Edu pt and communicated on whiteboard mobility level 2 with 2 assist. Left wheeled walker in room due to floor not having any walkers available. Total Timed Code Treatment Minutes: 14 Total Treatment Time (minutes): 30 FUNCTIONAL G CODE: OT 6 Clicks Score: 14 (10/12/171335) Self Care Current Status (G8987): CK (10/12/171335) Self Care Goal Status (G8988): CJ (10/12/171335) Based on clinical assessment and the score on the 6 Clicks Functional Assessment Tool, the G code and corresponding severity modifiers are documented above. SUBJECTIVE: Current Hospital Course: Chart reviewed; This is a 77 year old female who has a complicated recent medical history starting August 24 when she was diagnosed with diverticular abscess/perforation and septic shock. She was brought here for surgical eval from [place], but declined operative intervention and requested to go home with hospice on PO antibiotics. She took 2 weeks of antibiotics, had stabilization and improvement of her symptoms, but subsequently developed hematemesis due to anticoagulation and presumed PUD. She was admitted to inpatient hospice residence, but with stopping her anticoagulation, hematemesis stopped and she was discharged from inpatient hospice. She then had new DVT and PE developing off anticoagulation and was re-hospitalized, with initiation of Lovenox at full dose. She spent some time in the transitional care unit and was sent home 1 week ago on Lovenox. Yesterday she noted an area on her left foot/pretibial area of bruise/oozing blood, but it worsened and progressed to cover much of the pretibial area with more bleeding, and she went to the [place] ED this morning. She was discharged back home after wound evaluation and no finding of circulatory compromise. Her son then brought her back to the ED with a concern over abdominal pain and insistent on hospitalization per [place] ED notes. Eval included CT abdomen which showed a 5 cm abscess/phlegmon in the same area as the original perforation, and she was recommended to be transferred to have IR evaluation of percutaneous drainage. 10/11 Procedure: CT guided placement of abscess drainage catheter 77 year old female with diverticulitis and presacral fluid/gas collection. 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 aHnsen - Inflammatory polyarthropathy - Normocytic anemia - PE (pulmonary thromboembolism) ([facility]) 01/05/14 Bilat, extensive - Pulmonary embolism without acute cor pulmonale - Pure hypercholesterolemia - Sicca syndrome - Unspecified essential hypertension - Unspecified gastritis and gastroduodenitis without mention of hemorrhage - Urinary tract infection, site not specified - Venous insufficiency (chronic) (peripheral) - Vitamin D deficiency PAST SURGICAL HISTORY Procedure Laterality Date - CATARACT EXTRACTION HX Right - PARTIAL HIP REPLACEMENT Right 04/2013 - PAST SURGICAL HISTORY OF hernia repair - PAST SURGICAL HISTORY OF 11/2012 L3-L4 laminectomy and fusion - PAST SURGICAL HISTORY OF 11/2012 Back fusion surgery - TOTAL HIP REPLACEMENT 05/10/2013 right hip replacement - VENOUS DUPLEX BOTH LOWER EXTREMITIES 05/12/2016 Reason for Occupational Therapy Consult: Post acute placement Relevant Past Medical History: Curry's, CKD, DVT/PE, fibromyalgia, HTN, R hip endo 2013 back sx, Patient Report: Pt in room cooperative and asking to get out of bed. Pain: 8/10 L LE after movement Home Environment Patient Lives With: Self/Alone Assistance Available: time study statistician (Dtr nearby) Entry To Home: No Stairs Tub/Shower Type: walk in shower with seat Laundry: on main floor Equipment Owned: Grab Bars-Shower;Wheeled Walker;Cane;Shower Chair (transport W/C?) Prior Functional Level: Required Assistance Assistance Required With: Laundry;Cleaning;Shopping;Transportation (Dtr assists with IADLs since return home for about 1 week) Prior Functional Level Comments: Pt was at hospice, get better, went to rehab and has been at home for a week. Now developed L LE hematoma. OBJECTIVE: Responsiveness: Alert;Awake Follows Commands: 2-step Commands Memory Deficits: Short Term (3/3 recall) Executive Function Deficits: Judgement;Safety Awareness Safety Awareness Deficit: Minimal impairment Judgement Deficit: Minimal impairment CURRENT FUNCTIONAL STATUS: Current Activities of Daily Living Assist Level Feeding Set Up Grooming Moderate Assistance Bathing Upper Body Moderate Assistance Bathing Lower Body Maximal Assistance Dressing Upper Body Moderate Assistance Dressing Lower Body Maximal Assistance Toileting Maximal Assistance Functional Mobility Assist Level Rolling Supine to Sit Moderate Assistance Sit to Supine Scooting Sit to Stand Moderate Assistance Stand to Sit Minimal Assistance Bed to Chair Moderate Assistance Wheeled Walker;Gait Belt Toilet/Commode Moderate Assistance (not formally assessed, sim to chair) Functional Mobility Hand Dominance: Right Range Of Motion: Within Functional Limits Strength: Within Functional Limits Except Location Strength Not WFL: Upper Extremity Left Upper Extremity Strength: 4/5 Right Upper Extremity Strength: 4/5 Edu pt on fall prevention / up with assistance. Pt left in room in chair with calllight within reach. Please see discipline specific clinical documentation flowsheet for complete details for this therapy evaluation/treatment. SIGNATURE: ROLDAN Medina/Marina PATIENT NAME: Dia Mccullough DATE: October 12, 2017 TIME: 2:45 PM PAGER: [phone] Karin Dow MD 10/12/2017 6:00 PM Signed DEPARTMENT OF HOSPITAL MEDICINE PROGRESS NOTE SERVICE DATE: 10/12/2017 SERVICE TIME: 3:16 PM Hospital Medicine/Primary Attending: Karin Dow MD NIGHT AND WEEKEND COVERAGE: From 7am - 7pm, please call [phone] After 7pm, please call cross cover pager #[phone] Subjective INTERVAL HPI: Patient seen and examined. Complains of pain in the ;left leg. Denies fever or chils or SOB. MEDICATIONS: Reviewed Objective PHYSICAL EXAM: BP 150/77 Pulse 89 Temp (Src) 99 (Oral) Resp 18 Ht 5' 0 (1.52m) Wt 155 lb 13.8 oz (70.7kg) SpO2 99% BMI 30.44 kg/(m2). Physical Exam Performed GENERAL: Alert, no distress, cooperative, SKIN: Skin color, texture, turgor normal. No rashes or lesions. OROPHARYNX: Lips, mucosa, and tongue normal. Teeth and gums normal. Oropharynx normal. LUNGS: Lungs clear to auscultation, Air entry good, Unlabored breathing. CARDIAC: Normal S1 and S2; 3/6 systolic murmurs ABDOMEN: Abdomen soft, non-tender, non-distended, BS normal EXTREMITIES: left leg- wrapped in spike. Opened and examined yesterday- has large hematoma in lower leg anteriorly. Small tearing of skin over the hematoma- serosanginous discharge, DP present Lines, Drains, and Airways Line Peripheral 10/09/17 0644 Left Wrist 22 Gauge 3 days Peripheral 10/11/17 0430 Short Left Antecubital 22 Gauge 1 day Drain Drain/Tube 10/11/17 Toby Sherwood Left Lower Quadrant Abdomen Drain #1 1 day Reviewed lines, drains, AND airways. Need to be continued peripheral lines DATA: Diagnostic tests reviewed for today's visit: Most recent labs and imaging results. Assessment/Plan 1. Sigmoid diverticulitis with pelvic abscess, improved, s/p abdominal drain with seropurulent discharge, on meropenem, ID following, H/o bowel perforation 08/24/17 ? 2. Recurrent DVT/PE, MTHFR heterozygous. Used to be on coumadin which was stopped when she developed hematemesis, remains on lovenox, Antiphospholipid ab negative 3. Left leg bleeding/ hematoma, s/p trauma, secondary to higher dose of lovenox for?CKD 3-4, continue with dressing and SPIKE. ? 5. Episode of hematemesis 5 weeks ago while on coumadin, managed with vitk. No scope done. ? 6. SVT, resolved ? 7. Severe Anemia, multifactorial, stable, Hb is 7.4. ? Medication and Non-Pharmacologic VTE Prophylaxis/Anticoagulants Anticoagulant AND Antiplatelet Medications Start Dose Route Frequency Ordered Stop 10/11/17 1800 enoxaparin 70 mg injection (LOVENOX) 1 mg/kg/dose SUBCUTANEOUS EVERY 24 HOURS 10/11/17 1736 -- 10/08/17 2300 vte non-pharmacologic prophylaxis - none indicated ([place]) 10/08/17 2300 vte current anticoag therapy ([place]) VTE Prophylaxis: VTE prophylaxis appropriate Disposition: SNF Plan of care discussed with: Patient SIGNATURE: Karin Dow MD PATIENT NAME: Dia Mccullough DATE: October 12, 2017 TIME: 3:16 PM PAGER/CONTACT #: [phone] [phone] Joan Masters RN, RN 10/12/2017 3:22 PM Signed CARE MANAGEMENT PROGRESS NOTE SERVICE DATE: 10/12/2017 SERVICE TIME: 1521 LOS: 1 day Needs Prior to Discharge: Accepting Facility;Bed Availability;Precertification;Discharge Transportation Spoke with Pt after PT/OT evwaldemar, pt agreeable to SNF at [facility]. Would like [facility] as first choice. Will need precert. SIGNATURE: Joan Masters RN PATIENT NAME: Dia Mccullough DATE: October 12, 2017 TIME: 3:21 PM PAGER/CONTACT #: [phone] Radha Aceves PT 10/12/2017 3:38 PM Signed Physical Therapy Evaluation SERVICE DATE: 10/12/2017 SERVICE TIME: 1455 to 1520 ROOM: [place] [address] Recommended Discharge Disposition: Subacute/SNF Justification For Post Acute Needs: Anticipate that patient will require daily (5x/wk) skilled therapy in a post-acute facility setting at the time of acute hospital discharge PT Recommendations to Nursing: Ambulate with device;Transfer to/from chair;OOB for Meals;With assist of 1 person Device: Wheeled Walker PT 6 Clicks Score: 17 Precautions/Activity Restrictions: Fall Risk Isolation Type: None ASSESSMENT : Patient presents with a medically stable condition with limited functional impairments which minimally impact safe mobility. The patient will require skilled therapy for PT problems that may include balance, gait safety with or without an assitive device and home safety education. Patient Disposition at Start of Session: OOB in Chair Patient Disposition at End of Session: Supine in Bed;Call Suggs in Reach Tolerance Limited By Pain Physical Therapy Problem List: Education Deficit;Safety Deficits;Decreased Activity Tolerance;Decreased Strength;Functional Mobility Impairment;Balance Impaired Patient /Caregiver Goals: Go Home Goals for Plan of Care: Transfer supine to/from sit with: Stand By Assistance Transfer sit to/from stand with: Stand By Assistance Ambulate with: Stand By Assistance Distance: 40 ft intervals Device: Wheeled Walker Goal: Complete 15x2 general LE strength exercises Rehab Potential: Good PLAN: Treatment Frequency (times per week): 5 (1-5) Current admission Treatment Interventions: Education;Strengthening;Functional Mobility Training;Balance Training Plan of Care developed with: Patient TREATMENT INTERVENTIONS: Therapy Diagnosis: Reduced mobility-other;Muscle Weakness (generalized);Unsteadiness on feet;Abnormalities of gait and mobility-other Interventions Provided: Evaluation;Therapeutic Activity (80100) $ Evaluation-Low (28419) Billed Units: 1 unit Therapeutic Activity (78022) Treatment Minutes: 9 1 unit Skilled Intervention(s): Instructed patient in sit to supine using safe, effective technique Instruction in sit to stand technique with proper hand placement and body positioning at edge of bed/chair Instruction in stand to sit technique with lower extremities touching chair/bed and reaching back for surface Education on hand and foot placement for stand pivot. Patient maintains NWB L lower extremity due to pain Education with safe wheeled walker usage including pacing, upright posture, sequencing, gait pattern and proper foot/body placement within the frame of the wheeled walker Education regarding importance of OOB, to chair, ambulate in room to regulate BP, improve lung function and overall blood flow, and to aid with bodily functions somewhat dependent on gravity. Total Timed Code Treatment Minutes: 9 Total Treatment Time (minutes): 25 FUNCTIONAL G CODE: PT 6 Clicks Score: 17 (10/12/17 1455) Mobility: Walking and Moving Around Current Status (G8978): CK (10/12/17 1455) Mobility: Walking and Moving Around Goal Status (G8979): CJ (10/12/17 1455) Based on clinical assessment and the score on the 6 Clicks Functional Assessment Tool, the G code and corresponding severity modifiers are documented above. SUBJECTIVE: Current Hospital Course: Chart reviewed; ? This is a 77 year old female who has a complicated recent medical history starting August 24 when she was diagnosed with diverticular abscess/perforation and septic shock. ?She was brought here for surgical eval from [place], but declined operative intervention and requested to go home with hospice on PO antibiotics. ?She took 2 weeks of antibiotics, had stabilization and improvement of her symptoms, but subsequently developed hematemesis due to anticoagulation and presumed PUD. ?She was admitted to inpatient hospice residence, but with stopping her anticoagulation, hematemesis stopped and she was discharged from inpatient hospice. ?She then had new DVT and PE developing off anticoagulation and was re-hospitalized, with initiation of Lovenox at full dose. ?She spent some time in the transitional care unit and was sent home 1 week ago on Lovenox. On 10/11 she noted an area on her left foot/pretibial area of bruise/oozing blood, but it worsened and progressed to cover much of the pretibial area with more bleeding, and she went to the [place] ED this morning. ?She was discharged back home after wound evaluation and no finding of circulatory compromise. ?Her son then brought her back to the ED with a concern over abdominal pain and insistent on hospitalization per [place] ED notes. ?Eval included CT abdomen which showed a 5 cm abscess/phlegmon in the same area as the original perforation, and she was recommended to be transferred to have IR evaluation of percutaneous drainage.??? 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 - Inflammatory polyarthropathy - Normocytic anemia - PE (pulmonary thromboembolism) ([facility]) 01/05/14 Bilat, extensive - Pulmonary embolism without acute cor pulmonale - Pure hypercholesterolemia - Sicca syndrome - Unspecified essential hypertension - Unspecified gastritis and gastroduodenitis without mention of hemorrhage - Urinary tract infection, site not specified - Venous insufficiency (chronic) (peripheral) - Vitamin D deficiency PAST SURGICAL HISTORY Procedure Laterality Date - CATARACT EXTRACTION HX Right - PARTIAL HIP REPLACEMENT Right 04/2013 - PAST SURGICAL HISTORY OF hernia repair - PAST SURGICAL HISTORY OF 11/2012 L3-L4 laminectomy and fusion - PAST SURGICAL HISTORY OF 11/2012 Back fusion surgery - TOTAL HIP REPLACEMENT 05/10/2013 right hip replacement - VENOUS DUPLEX BOTH LOWER EXTREMITIES 05/12/2016 Patient Report: 12/23 pain L lower extremity. Agreeable to PT. I know I cannot go back home like this Home Environment Patient Lives With: Self/Alone Assistance Available: time study statistician (Dtr nearby) Entry To Home: No Stairs Tub/Shower Type: walk in shower with seat Laundry: on main floor Equipment Owned: Grab Bars-Shower;Wheeled Walker;Cane;Shower Chair (transport W/C?) Prior Functional Level: Required Assistance Assistance Required With: Laundry;Cleaning;Shopping;Transportation (Dtr assists with IADLs since return home for about 1 week) Prior Functional Level Comments: Pt was at hospice, get better, went to rehab and has been at home for a week. Now developed L LE hematoma. OBJECTIVE: CURRENT FUNCTIONAL STATUS: Current Functional Mobility Assist Level Additional Information Rolling Supine to Sit Sit to Supine Minimal Assistance Scooting Sit to Stand Minimal Assistance Stand to Sit Minimal Assistance Bed to Chair Toilet/Commode Minimal Assistance Gait Minimal Assistance Gait Device: Wheeled Walker Gait Distance (feet): 4x2 Stairs Curb Step Car Transfer Gait Deviations Left Lower Extremity: Weight bearing decreased General Gait Deviations: Lauryn decreased;Flexed trunk posture;Shuffling Gait;Non-functional gait speed Range Of Motion: Within Functional Limits Strength: Within Functional Limits Except Location Strength Not WFL: Lower Extremity;Upper Extremity Left Upper Extremity Strength: 3+ Right Upper Extremity Strength: 3+ Left Lower Extremity Strength: 4- Right Lower Extremity Strength: 4- Please see discipline specific clinical documentation flowsheet for complete details for this therapy evaluation/treatment. SIGNATURE: Radha Aceves PT PATIENT NAME: Dia Mccullough DATE: October 12, 2017 TIME: 3:33 PM PAGER/CONTACT #: [phone] Summer Farias, Front Office Help 10/12/2017 3:45 PM Signed SNF referral sent to [facility] Debbie Hilton RN, RN 10/13/2017 11:09 AM Signed Received message through Joan Masters, Patient Access that [facility] will be able to accept pt at d/c Pt informaed. Lory Garces MD 10/13/2017 11:18 AM Signed INPATIENT PROGRESS NOTE SERVICE DATE: 10/13/2017 SERVICE TIME: 11:11 AM PRIMARY SERVICE: Sound Subjective CHIEF COMPLAINT: Intra-abdominal Abscess INTERVAL HPI: 3-4 loose BM. No CP/SOB/CALZADA Current hospital medications: acetaminophen 650 mg tab(s) (TYLENOL) 650 mg ORAL q 4 H PRN iv contrast (radiology procedure) INTRAVENOUS DIRECTED PRN enoxaparin 70 mg injection (LOVENOX) 1 mg/kg/dose SUBCUTANEOUS q 24 HR HYDROcodone 5 mg - acetaminophen 325 mg tablet (NORCO) 1 tablet ORAL q 4 H PRN polyethylene glycol 3350 17 g packet (MIRALAX, GLYCOLAX) 17 g ORAL DAILY metoprolol tartrate (short acting) 25 mg tab(s) (LOPRESSOR) 25 mg ORAL q 12 H acetaminophen 650 mg tab(s) (TYLENOL) 650 mg ORAL q 6 H PRN meropenem 1 g in NaCl 0.9% 100 mL MB+ (MERREM) 1 g INTRAVENOUS q 12 H ondansetron orally disintegrating 4 mg tab(s) (ZOFRAN ODT) 4 mg ORAL q 6 H PRN predniSONE 5 mg tab(s) (DELTASONE) 5 mg ORAL BID PC predniSONE 2.5 mg tab(s) (DELTASONE) 2.5 mg ORAL DAILY wDINNER pantoprazole DR 40 mg tab(s) (PROTONIX) 40 mg ORAL DAILY (6 AM) saliva substitute combo no.9 15 mL (BIOTENE mouthwash) 15 mL MUCOUS MEMBRANE (TOPICAL MOUTH AND THROAT) 5X/DAY benzocaine-menthol 1 Lozenge (CEPACOL) 1 Lozenge MUCOUS MEMBRANE (TOPICAL MOUTH AND THROAT) q 2 H PRN 0.9% NaCl 3-5 mL 3-5 mL INTRAVENOUS q 12 H lactated ringers infusion 100 mL/hr INTRAVENOUS CONTINUOUS guaiFENesin 200 mg oral liquid (ROBITUSSIN) 200 mg ORAL QID Objective PHYSICAL EXAM: BP 165/82 Pulse 89 Temp (Src) 98.2 (Oral) Resp 18 Ht 5' 0 (1.52m) Wt 155 lb 13.8 oz (70.7kg) SpO2 100% BMI 30.44 kg/(m2). Physical Exam Performed GENERAL: Alert, no distress, cooperative SKIN: Skin color, texture, turgor normal. Multiple ecchymoses. EYES: EOMI NECK: No jugulovenous distention, Supple LUNGS: Lungs clear to auscultation, Good diaphragmatic excursion CARDIAC: Normal S1 and S2; no rubs, murmurs, or gallops ABDOMEN: Abdomen soft, non-tender, BS normal, No masses or organomegaly. ADRIÁN drain c/d/i EXTREMITIES: Extensive bruising, LLE wrapped NEURO: Grossly normal cognition, motor function, and cranial nerves III-XII DATA: Diagnostic tests reviewed for today's visit: Most recent labs and imaging results. Assessment/Plan 1. Intra-abdominal Abscess 2/2 Complicated Diverticulitis - await ID/Sens, currently with ADRIÁN drain and on meropenem. Abscessogram next week per IR. 2. Acute LLE hematoma - large, evaluated by Plastics and non-operative mgmt being pursued. 3. Hypercoag State with Mult DVT/PE - currently on once daily therapeutic Lovenox 4. A/C Blood Loss Anemia - 2/2 #2. Stable H/H, follow. 5. CKF S3 6. Curry's Dz - prednisone 7. PMR/Inflammatory Polyarthritis Medication and Non-Pharmacologic VTE Prophylaxis/Anticoagulants Anticoagulant AND Antiplatelet Medications Start Dose Route Frequency Ordered Stop 10/11/17 1800 enoxaparin 70 mg injection (LOVENOX) 1 mg/kg/dose SUBCUTANEOUS EVERY 24 HOURS 10/11/17 1736 -- 10/08/17 2300 vte non-pharmacologic prophylaxis - none indicated (va,mo) 10/08/17 2300 vte current anticoag therapy (va,mo) VTE Prophylaxis: VTE prophylaxis appropriate SIGNATURE: Lory Garces MD PATIENT NAME: Dia Mccullough DATE: October 13, 2017 TIME: 11:11 AM PAGER: Vincent Hilton, RN, RN 10/13/2017 2:45 PM Signed Spoke with Allie Mcallister at [facility]. She will start precert for pt for transfer to her facillity. Misael Wei MD 10/13/2017 5:38 PM Signed October 13, 2017 5:37 PM Infectious Disease Afebrile, denies abdominal pain. Abscess cult- KE group GNB, Clostridium, Khadijah Recent Labs 10/12/17 0635 10/11/17 0431 WBC 7.81 8.18 7.98 HB 7.4* 7.4* 7.4* HCT 24.3* 23.4* 23.4* PLT 224 211 207 CREAT -- 0.94 NEUTNUM 5.87 6.20* LYMPHNUM 1.21 1.13* MONOCYT 0.52 0.46 EOSIN 0.02 0.01 Imp:Abdominal abscess Rec:Continue meropenem Add fluconazole. MD Misael Lyons MD 10/14/2017 12:25 PM Addendum INFECTIOUS DISEASE CONSULT PROGRESS NOTE SERVICE DATE: 10/14/2017 SERVICE TIME: 12:15 PM Subjective INTERVAL HISTORY / PERTINENT Review of Systems Constitutional: Negative for chills and fever. Gastrointestinal: Positive for abdominal pain (improving per pt, still mainly around drain). Current Facility-Administered Medications: fluconazole 400 mg in NaCl (iso-osmotic) 200 mL (DIFLUCAN) 400 mg INTRAVENOUS DAILY acetaminophen 650 mg tab(s) (TYLENOL) 650 mg ORAL q 4 H PRN iv contrast (radiology procedure) INTRAVENOUS DIRECTED PRN enoxaparin 70 mg injection (LOVENOX) 1 mg/kg/dose SUBCUTANEOUS q 24 HR HYDROcodone 5 mg - acetaminophen 325 mg tablet (NORCO) 1 tablet ORAL q 4 H PRN polyethylene glycol 3350 17 g packet (MIRALAX, GLYCOLAX) 17 g ORAL DAILY metoprolol tartrate (short acting) 25 mg tab(s) (LOPRESSOR) 25 mg ORAL q 12 H acetaminophen 650 mg tab(s) (TYLENOL) 650 mg ORAL q 6 H PRN meropenem 1 g in NaCl 0.9% 100 mL MB+ (MERREM) 1 g INTRAVENOUS q 12 H ondansetron orally disintegrating 4 mg tab(s) (ZOFRAN ODT) 4 mg ORAL q 6 H PRN predniSONE 5 mg tab(s) (DELTASONE) 5 mg ORAL BID PC predniSONE 2.5 mg tab(s) (DELTASONE) 2.5 mg ORAL DAILY wDINNER pantoprazole DR 40 mg tab(s) (PROTONIX) 40 mg ORAL DAILY (6 AM) saliva substitute combo no.9 15 mL (BIOTENE mouthwash) 15 mL MUCOUS MEMBRANE (TOPICAL MOUTH AND THROAT) 5X/DAY benzocaine-menthol 1 Lozenge (CEPACOL) 1 Lozenge MUCOUS MEMBRANE (TOPICAL MOUTH AND THROAT) q 2 H PRN 0.9% NaCl 3-5 mL 3-5 mL INTRAVENOUS q 12 H lactated ringers infusion 100 mL/hr INTRAVENOUS CONTINUOUS guaiFENesin 200 mg oral liquid (ROBITUSSIN) 200 mg ORAL QID Objective PHYSICAL EXAM: Vital Signs: BP 153/89 Pulse 98 Temp 37 ?C (98.6 ?F) (Oral) Resp 18 Ht 152.4 cm (5') Wt 70.7 kg (155 lb 13.8 oz) SpO2 99% BMI 30.44 kg/m? Physical Exam Abdominal: There is tenderness (left side). Dark doyle purulent fluid in abscess drain. DATA: Diagnostic Tests Reviewed for Today's Visit: Most recent labs Micro: Abscess culture- Klebsiella pneumoniae, C perfringens, and C albicans. Gm stain also shows GPC. Recent Labs 10/14/17 0510 10/12/17 0635 WBC 10.24* 7.81 HB 7.8* 7.4* HCT 25.3* 24.3* PLT 268 224 NEUTNUM 7.81* 5.87 CREAT 0.95 -- No results found for: VANCORA Impression/Recommendations Principal Problem: Intra-abdominal abscess (HCC) POA: Yes Assessment AND Plan: I recommend continued iv antibiotic therapy at ecf at least initially. Pt declines, wants to be treated with oral atbs. Discussed at length with her including risk of treatment failure. She understands. Will change to po augmentin, cipro, and fluconazole. Her augmentin reaction was upset stomach, no other allergic symptoms. Could go to ecf on these. Has follow up abscessogram in Radiology scheduled for 1 week per her report. Will need to stay on atbs until abscess resolved. If discharged, should have FU appt with me in about 4 weeks. D/W Sound IM. Resolved Problems: * No resolved hospital problems. * SIGNATURE: Misael Wei MD PATIENT NAME: Dia Mccullough DATE: October 14, 2017 TIME: 12:15 PM PAGER/CONTACT #: [phone] Previous Version Lory Garces MD 10/14/2017 12:52 PM Signed INPATIENT PROGRESS NOTE SERVICE DATE: 10/14/2017 SERVICE TIME: 12:49 PM PRIMARY SERVICE: Sound Subjective CHIEF COMPLAINT: Abd Pain INTERVAL HPI: No CALZADA/CP/SOB/Abd pain Current hospital medications: amoxicillin-clavulanic acid 875 mg tab(s) (AUGMENTIN) 875 mg ORAL q 12 H ciprofloxacin HCl 500 mg tab(s) (CIPRO) 500 mg ORAL q 12 H fluconazole 400 mg tab(s) (DIFLUCAN) 400 mg ORAL DAILY acetaminophen 650 mg tab(s) (TYLENOL) 650 mg ORAL q 4 H PRN iv contrast (radiology procedure) INTRAVENOUS DIRECTED PRN enoxaparin 70 mg injection (LOVENOX) 1 mg/kg/dose SUBCUTANEOUS q 24 HR HYDROcodone 5 mg - acetaminophen 325 mg tablet (NORCO) 1 tablet ORAL q 4 H PRN polyethylene glycol 3350 17 g packet (MIRALAX, GLYCOLAX) 17 g ORAL DAILY metoprolol tartrate (short acting) 25 mg tab(s) (LOPRESSOR) 25 mg ORAL q 12 H acetaminophen 650 mg tab(s) (TYLENOL) 650 mg ORAL q 6 H PRN ondansetron orally disintegrating 4 mg tab(s) (ZOFRAN ODT) 4 mg ORAL q 6 H PRN predniSONE 5 mg tab(s) (DELTASONE) 5 mg ORAL BID PC predniSONE 2.5 mg tab(s) (DELTASONE) 2.5 mg ORAL DAILY wDINNER pantoprazole DR 40 mg tab(s) (PROTONIX) 40 mg ORAL DAILY (6 AM) saliva substitute combo no.9 15 mL (BIOTENE mouthwash) 15 mL MUCOUS MEMBRANE (TOPICAL MOUTH AND THROAT) 5X/DAY benzocaine-menthol 1 Lozenge (CEPACOL) 1 Lozenge MUCOUS MEMBRANE (TOPICAL MOUTH AND THROAT) q 2 H PRN 0.9% NaCl 3-5 mL 3-5 mL INTRAVENOUS q 12 H lactated ringers infusion 100 mL/hr INTRAVENOUS CONTINUOUS guaiFENesin 200 mg oral liquid (ROBITUSSIN) 200 mg ORAL QID Objective PHYSICAL EXAM: BP 153/89 Pulse 98 Temp (Src) 98.6 (Oral) Resp 18 Ht 5' 0 (1.52m) Wt 155 lb 13.8 oz (70.7kg) SpO2 99% BMI 30.44 kg/(m2). Physical Exam Performed GENERAL: Alert, no distress, cooperative SKIN: Skin color, texture, turgor normal. Multiple ecchymoses. EYES: EOMI NECK: No jugulovenous distention, Supple LUNGS: Lungs clear to auscultation, Good diaphragmatic excursion CARDIAC: Normal S1 and S2; no rubs, murmurs, or gallops ABDOMEN: Abdomen soft, non-tender, BS normal, No masses or organomegaly. ADRIÁN drain c/d/i EXTREMITIES: Extensive bruising, LLE wrapped NEURO: Grossly normal cognition, motor function, and cranial nerves III-XII DATA: Diagnostic tests reviewed for today's visit: Most recent labs and imaging results. Assessment/Plan 1. Intra-abdominal Abscess 2/2 Complicated Diverticulitis - Rx with ADRIÁN drain and on meropenem in-house. Patient refuses PICC line and IV anti-biotics despite d/w me and ID. Cx growing Klebsiella, Clostridium, Yeast, and unknown GPC, and ID changed abx to Augmentin, Cipro, and Fluconazole. Rx for at least 4 weeks and through resolution of abscess. Abscessogram next week per IR. F/U with ID one month. ? 2. Acute LLE hematoma - large, evaluated by Plastics and non-operative mgmt being pursued. ? 3. Hypercoag State with Mult DVT/PE - currently on once daily therapeutic Lovenox ? 4. A/C Blood Loss Anemia - 2/2 #2. Stable H/H, follow. ? 5. CKF S3 ? 6. Baltazar's Dz - prednisone ? 7. PMR/Inflammatory Polyarthritis Medication and Non-Pharmacologic VTE Prophylaxis/Anticoagulants Anticoagulant AND Antiplatelet Medications Start Dose Route Frequency Ordered Stop 10/11/17 1800 enoxaparin 70 mg injection (LOVENOX) 1 mg/kg/dose SUBCUTANEOUS EVERY 24 HOURS 10/11/17 1736 -- 10/08/17 230 vte non-pharmacologic prophylaxis - none indicated (va,mo) 10/08/17 230 vte current anticoag therapy (va,mo) VTE Prophylaxis: VTE prophylaxis appropriate SIGNATURE: Lory Garces MD PATIENT NAME: Dia Mccullough DATE: October 14, 2017 TIME: 12:49 PM PAGER: Vincent Hilton RN, RN 10/14/2017 2:41 PM Signed Spoke with Allie Mcfadden [facility]. They cancelled precert for this patient thinking she would not come until next week. Asked that they get new precert. Lory Garces MD 10/14/2017 2:45 PM Signed DISCHARGE SUMMARY PATIENT NAME: Dia Mccullough Admission Information Admission Information ADMIT DATE: 10/08/2017 DISCHARGE DATE: 10/14/2017 MY DOCTORS AND MEDICAL TEAM: My Main Hospital Doctor: Lory Garces Primary Care Provider: Mallorie Wheeler MD My Medical Team Members: Treatment Team: Attending Provider: Lory Garces Primary Service: Julien Castano Consulting: Dar Sorensen Consulting: Zhane Mcgovern III Consulting: Antione Irizarry Consulting: Jj Howell MY CONDITION AT DISCHARGE: Stable REASON I WAS IN THE HOSPITAL: Abd Pain SUMMARY OF WHAT HAPPENED WHILE I WAS IN THE HOSPITAL: You were admitted for abdominal pain and an intra-abdominal abscess. A drain was placed and will stay until the abscess is resolved. Continue anti-biotics until told to stop by Infectious Disease. OTHER PROBLEMS/DIAGNOSIS: Principal Problem: Intra-abdominal abscess (HCC) Active Problems: DVT (deep venous thrombosis) (HCC) Pulmonary emboli (HCC) CKD (chronic kidney disease) stage 3, GFR 30-59 ml/min Venous insufficiency (chronic) (peripheral) Curry disease Traumatic hematoma of left lower leg Leg hematoma, left, initial encounter Resolved Problems: * No resolved hospital problems. * OPERATIONS PERFORMED WHILE IN THE HOSPITAL: None IMPORTANT TEST/PROCEDURES: No procedures performed TEST RESULTS NOT AVAILABLE AT THIS TIME: No pending results Discharge Disposition Discharge Disposition: Correction Facility - Greater than 30 Days Activity When You Leave the Hospital Resume pre-hospital activity Diet Instructions Resume your pre-hospital diet Follow Up Appointments Follow-Up Appointment When: In 4 weeks Misael Wei [phone] [facility] [id number] PCP Requested Referral Follow-Up Appointment When: In 1 week Mallorie Wheeler [phone] [id number] [facility] [id number] PCP Requested Referral Additional Provider to Provider Information: 1. ?Intra-abdominal Abscess 2/2 Complicated Diverticulitis - Rx with ADRIÁN drain and on meropenem in-house. ?Patient refuses PICC line and IV anti-biotics despite d/w me and ID. Cx growing Klebsiella, Clostridium, Yeast, and unknown GPC, and ID changed abx to Augmentin, Cipro, and Fluconazole. Rx for at least 4 weeks and through resolution of abscess. Abscessogram not able to be performed due to insurance reasons at [place], d/w patient, and she would prefer to still go to [place] and get CT scan only even though the study is not as good. F/U with ID one month. ? 2. ?Acute LLE hematoma - large, evaluated by Plastics and non-operative mgmt being pursued. ? 3. ?Hypercoag State with Mult DVT/PE - currently on once daily therapeutic Lovenox ? 4. ?A/C Blood Loss Anemia - / #2. ?Stable H/H, follow. ? 5. ?CKF S3 ? 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 7. ?PMR/Inflammatory Polyarthritis FOLLOW-UP APPOINTMENTS ALREADY SCHEDULED WITH A [facility] PROVIDER: No future appointments. DISCHARGE MEDICATION: Current Discharge Medication List START taking these medications fluconazole (DIFLUCAN) 400 mg Take 400 mg by mouth once daily. metoprolol tartrate (short acting) (LOPRESSOR) 25 mg Take 25 mg by mouth every 12 hours. polyethylene glycol 3350 (MIRALAX, GLYCOLAX) 17 g Take 17 g by mouth once daily. HYDROcodone-acetaminophen (NORCO) 1 tablet Take 1 tablet by mouth every 4 hours as needed. Earliest Fill Date: 10/14/17 Refills: 0 Associated Diagnoses:Leg hematoma, left, initial encounter; Intra-abdominal abscess (HCC) amoxicillin-clavulanic acid (AUGMENTIN) 875 mg Take 875 mg by mouth twice daily. ciprofloxacin HCl (CIPRO) 500 mg Take 500 mg by mouth twice daily. CONTINUE these medications which have CHANGED enoxaparin (LOVENOX) 70 mg Inject 70 mg subcutaneously q 24 HR. CONTINUE these medications which have NOT CHANGED !! predniSONE (DELTASONE) 2.5 mg Take 2.5 mg by mouth daily before dinner. Omeprazole 40 mg Take 40 mg by mouth once daily. !! predniSONE (DELTASONE) 5 mg Take 5 mg by mouth twice daily. ondansetron orally disintegrating (ZOFRAN ODT) 4 mg Take 4 mg by mouth every 6 hours as needed for Nausea/Vomiting. Qty: 24 tablet Refills: 0 !! - Potential duplicate medications found. Please discuss with provider. STOP taking these medications hydroCHLOROthiazide (HYDRODIURIL, ESIDRIX) 25 mg Comments: Reason for Stopping: TIME OF CARE: Discharge Management: I personally spent greater than 30 minutes involved in the discharge management of this patient. SIGNATURE: Lory Garces MD PAGER/CONTACT #: DATE: October 14, 2017 TIME: 2:43 PM Maty Aceves RN, RN 10/14/2017 6:23 PM Addendum 1822- [facility] has not called back stating if the patient has received precert. RN spoke with Joan body care manager and she states she has not heard anything back from [place]. Patient updated. 1630-Per body care manager Debbie Hilton patients precert is no longer active and states that [facility] is working towards new precert for later today. RN and body care manager updated patient on discharge situation. Previous Version Keya Robles RN, RN 10/15/2017 9:52 AM Signed CARE MANAGEMENT PROGRESS NOTE SERVICE DATE: 10/15/2017 SERVICE TIME:9:49 A.M. Spoke with Allie, staff member at [facility]. They do not have pre-cert at this time so patient is unable to come to them this weekend. The earliest would be Tuesday, if they can obtain if at that time. LOS: 4 days SIGNATURE: Keya Robles RN PATIENT NAME: Dia Mccullough DATE: October 15, 2017 TIME: 9:49 AM PAGER/CONTACT #: [phone] Patsy Kirby MD, 10/16/2017 5:52 AM Signed DEPARTMENT OF HOSPITAL MEDICINE PROGRESS NOTE SERVICE DATE: 10/15/2017 SERVICE TIME: 8:18 PM Hospital Medicine/Primary Attending: Patsy Kirby MD Subjective INTERVAL HPI: Pt doing fine, no fever,nausea or vomiting,abdominal pain better.looking forward to therapy at SNF. MEDICATIONS: Reviewed Current Facility-Administered Medications: amoxicillin-clavulanic acid 875 mg tab(s) (AUGMENTIN) 875 mg ORAL q 12 H Misael E Bollin 875 mg at 10/15/172007 ciprofloxacin HCl 500 mg tab(s) (CIPRO) 500 mg ORAL q 12 H Misael E Bollin 500 mg at 10/15/172007 fluconazole 400 mg tab(s) (DIFLUCAN) 400 mg ORAL DAILY Misael E Bollin 400 mg at 10/15/17 0859 acetaminophen 650 mg tab(s) (TYLENOL) 650 mg ORAL q 4 H PRN Phong Rush iv contrast (radiology procedure) INTRAVENOUS DIRECTED PRN Phong Rush enoxaparin 70 mg injection (LOVENOX) 1 mg/kg/dose SUBCUTANEOUS q 24 HR Jose Maria Kyrie 70 mg at 10/15/17 1810 HYDROcodone 5 mg - acetaminophen 325 mg tablet (NORCO) 1 tablet ORAL q 4 H PRN Kaycee (Forming Department Supervisor) [place] 1 tablet at 10/15/17 0857 polyethylene glycol 3350 17 g packet (MIRALAX, GLYCOLAX) 17 g ORAL DAILY Jose Maria Kyrie 17 g at 10/13/17 0828 metoprolol tartrate (short acting) 25 mg tab(s) (LOPRESSOR) 25 mg ORAL q 12 H Jose Maria Kyrie 25 mg at 10/15/172007 acetaminophen 650 mg tab(s) (TYLENOL) 650 mg ORAL q 6 H PRN Callie Castle ondansetron orally disintegrating 4 mg tab(s) (ZOFRAN ODT) 4 mg ORAL q 6 H PRN Gold Clemens predniSONE 5 mg tab(s) (DELTASONE) 5 mg ORAL BID PC Gold Clemens 5 mg at 10/15/17 1241 predniSONE 2.5 mg tab(s) (DELTASONE) 2.5 mg ORAL DAILY wDINNER Gold Clemens 2.5 mg at 10/15/[address] 40 mg tab(s) (PROTONIX) 40 mg ORAL DAILY (6 AM) Gold Clemens 40 mg at 10/15/17 0528 saliva substitute combo no.9 15 mL (BIOTENE mouthwash) 15 mL MUCOUS MEMBRANE (TOPICAL MOUTH AND THROAT) 5X/DAY Gold Clemens 15 mL at 10/14/17 0817 benzocaine-menthol 1 Lozenge (CEPACOL) 1 Lozenge MUCOUS MEMBRANE (TOPICAL MOUTH AND THROAT) q 2 H PRN Gold Clemens 0.9% NaCl 3-5 mL 3-5 mL INTRAVENOUS q 12 H Gold Clemens 3 mL at 10/15/172007 lactated ringers infusion 100 mL/hr INTRAVENOUS CONTINUOUS Gold Clemens Last Rate: 100 mL/hr at 10/15/17 0045 100 mL/hr at 10/15/17 0045 guaiFENesin 200 mg oral liquid (ROBITUSSIN) 200 mg ORAL QID Gold Richardsonnerson 200 mg at 10/15/17 0858 Objective PHYSICAL EXAM: BP 138/80 Pulse 108 Temp (Src) 98.4 (Oral) Resp 18 Ht 5' 0 (1.52m) Wt 155 lb 13.8 oz (70.7kg) SpO2 98% BMI 30.44 kg/(m2). Physical Exam Performed GENERAL: Alert, no acute distress, cooperative SKIN: Skin color, texture, turgor normal. Multiple ecchymoses over upper arms bilaterally noted EYES: EOMI NECK: No jugulovenous distention, Supple LUNGS: Lungs clear to auscultation, symmetrical expansion CARDIAC: Normal S1 and S2; no murmurs heard. ABDOMEN: Abdomen soft, non-tender, BS normal, No masses palpable ?ADRIÁN drain c/d/i EXTREMITIES: Extensive bruising, LLE wrapped NEURO: Grossly normal cognition, motor function, DATA: Diagnostic tests reviewed for today's visit: Most recent labs and imaging results. CBC, Coags, BMP, Mg, Phos Recent Labs 10/15/17 2236 10/14/17 0510 WBC 12.59* 10.24* HB 8.2* 7.8* HCT 27.0* 25.3* PLT 284 268 NA 139 139 K 5.0 4.3 CHLOR 107 108* CO2 29 27 BUN 21* 17 CREAT 1.36* 0.95 GLUC 132* 97 CA 8.7 8.5 Active Hospital Problems Diagnosis Date Noted - Intra-abdominal abscess (HCC) 10/08/2017 - Traumatic hematoma of left lower leg 10/08/2017 - Leg hematoma, left, initial encounter 10/08/2017 - Baltazar disease Chronic - Venous insufficiency (chronic) (peripheral) - CKD (chronic kidney disease) stage 3, GFR 30-59 ml/min 11/28/2014 - Pulmonary emboli (HCC) 01/30/2014 Overview Note: clinically resolved - DVT (deep venous thrombosis) (HCC) 01/08/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 ?Intra-abdominal Abscess 2/2 Complicated Diverticulitis - Rx?with ADRIÁN drain and on meropenem in-house. ?Patient refuses PICC line and IV anti-biotics despite d/w me and ID. ?Cx growing Klebsiella, Clostridium, Yeast, and unknown GPC, and ?ID changed abx to Augmentin, Cipro, and Fluconazole. ?Rx for at least 4 weeks and through resolution of abscess. ?Abscessogram not able to be performed due to insurance reasons at [place], d/w patient, and she would prefer to still go to [place] and get CT scan only even though the study is not as good. ?F/U with ID one month. ? 2. ?Acute LLE hematoma - large, evaluated by Plastics and non-operative mgmt being pursued. ? 3. ?Hypercoag State with Mult DVT/PE - currently on once daily therapeutic Lovenox ? 4. ?A/C Blood Loss Anemia - 2/ #2. ?Stable H/H, follow. ? 5. ?CKF S3 ? 6. ?Baltazar's Dz - prednisone ? ? 7. ?PMR/Inflammatory Polyarthritis Medication and Non-Pharmacologic VTE Prophylaxis/Anticoagulants Anticoagulant AND Antiplatelet Medications Start Dose Route Frequency Ordered Stop 10/14/17 0000 enoxaparin (LOVENOX) 80 mg/0.8 mL syrg 1 mg/kg/dose SUBCUTANEOUS EVERY 24 HOURS 10/14/17 1443 -- 10/11/17 1800 enoxaparin 70 mg injection (LOVENOX) 1 mg/kg/dose SUBCUTANEOUS EVERY 24 HOURS 10/11/17 1736 -- 10/08/17 2300 vte non-pharmacologic prophylaxis - none indicated (va,mo) 10/08/17 2300 vte current anticoag therapy ([place], [place]) Disposition: SNF,pending precert Plan of care discussed with: Patient and RN SIGNATURE: Patsy Kirby MD PATIENT NAME: Dia Mccullough DATE: October 15, 2017 TIME: 8:18 PM PAGER/CONTACT #: monica [email or web address] etx [phone] Patsy Kirby MD, MD 10/17/2017 3:57 AM Signed DEPARTMENT OF HOSPITAL MEDICINE PROGRESS NOTE SERVICE DATE: 10/16/2017 SERVICE TIME: 10:00 PM Hospital Medicine/Primary Attending: Patsy Kirby MD Subjective INTERVAL HPI: Doing fine, abdominal pain and leg pain is better,pt eager to participate in PT,no fever,chills,chest pain,sob MEDICATIONS: Reviewed Current Facility-Administered Medications: melatonin 3 mg tab(s) 3 mg ORAL AT BEDTIME Kaycee (Ammy) Carolina amoxicillin-clavulanic acid 875 mg tab(s) (AUGMENTIN) 875 mg ORAL q 12 H Misael E Bollin 875 mg at 10/16/172116 ciprofloxacin HCl 500 mg tab(s) (CIPRO) 500 mg ORAL q 12 H Misael E Bollin 500 mg at 10/16/172116 fluconazole 400 mg tab(s) (DIFLUCAN) 400 mg ORAL DAILY Misael E Bollin 400 mg at 10/16/17 0849 acetaminophen 650 mg tab(s) (TYLENOL) 650 mg ORAL q 4 H PRN Phong Rush iv contrast (radiology procedure) INTRAVENOUS DIRECTED PRN Phong Rush enoxaparin 70 mg injection (LOVENOX) 1 mg/kg/dose SUBCUTANEOUS q 24 HR Jose Maria Kyrie 70 mg at 10/16/17 1710 HYDROcodone 5 mg - acetaminophen 325 mg tablet (NORCO) 1 tablet ORAL q 4 H PRN Kaycee (Ammy) Carolina 1 tablet at 10/15/17 0857 polyethylene glycol 3350 17 g packet (MIRALAX, GLYCOLAX) 17 g ORAL DAILY Jose Maria Kyrie 17 g at 10/13/17 0828 metoprolol tartrate (short acting) 25 mg tab(s) (LOPRESSOR) 25 mg ORAL q 12 H Jose Maria Kyrie 25 mg at 10/16/17 2117 acetaminophen 650 mg tab(s) (TYLENOL) 650 mg ORAL q 6 H PRN Callie Castle ondansetron orally disintegrating 4 mg tab(s) (ZOFRAN ODT) 4 mg ORAL q 6 H PRN Gold Clemens predniSONE 5 mg tab(s) (DELTASONE) 5 mg ORAL BID SHELBIE Clemens 5 mg at 10/16/17 1235 predniSONE 2.5 mg tab(s) (DELTASONE) 2.5 mg ORAL DAILY wDINNER Gold Clemens 2.5 mg at 10/16/[address] 40 mg tab(s) (PROTONIX) 40 mg ORAL DAILY (6 AM) Gold Lyonon 40 mg at 10/16/17 0546 saliva substitute combo no.9 15 mL (BIOTENE mouthwash) 15 mL MUCOUS MEMBRANE (TOPICAL MOUTH AND THROAT) 5X/DAY Gold Lyonon 15 mL at 10/14/17 0817 benzocaine-menthol 1 Lozenge (CEPACOL) 1 Lozenge MUCOUS MEMBRANE (TOPICAL MOUTH AND THROAT) q 2 H PRN Gold Clemens 0.9% NaCl 3-5 mL 3-5 mL INTRAVENOUS q 12 H Gold Lyonon 3 mL at 10/16/17 2118 lactated ringers infusion 100 mL/hr INTRAVENOUS CONTINUOUS Gold Clemens Last Rate: 100 mL/hr at 10/15/17 0045 100 mL/hr at 10/15/17 0045 guaiFENesin 200 mg oral liquid (ROBITUSSIN) 200 mg ORAL QID Gold Clemens 200 mg at 10/16/17 0849 Objective PHYSICAL EXAM: BP 139/71 Pulse 113 Temp (Src) 98.1 (Oral) Resp 18 Ht 5' 0 (1.52m) Wt 155 lb 13.8 oz (70.7kg) SpO2 98% BMI 30.44 kg/(m2). Physical Exam Performed GENERAL: Alert, no acute distress, cooperative SKIN: Dry and normal. Multiple ecchymoses over upper arms bilaterally noted EYES: EOMI,anicteric sclerae NECK: No jugulovenous distention, Supple LUNGS: Lungs clear to auscultation, symmetrical expansion CARDIAC: Normal S1 and S2; no murmurs heard. ABDOMEN: Abdomen soft, non-tender, BS normal, No masses palpable ?ADRIÁN drain c/d/i EXTREMITIES: Extensive bruising, LLE wrapped NEURO: Grossly normal cognition, motor function, DATA: Diagnostic tests reviewed for today's visit: Most recent labs and imaging results. CBC, Coags, BMP, Mg, Phos Recent Labs 10/15/176 10/14/17 0510 WBC 12.59* 10.24* HB 8.2* 7.8* HCT 27.0* 25.3* PLT 284 268 NA 139 139 K 5.0 4.3 CHLOR 107 108* CO2 29 27 BUN 21* 17 CREAT 1.36* 0.95 GLUC 132* 97 CA 8.7 8.5 Assessment/Plan 1. ?Intra-abdominal Abscess 2/2 Complicated Diverticulitis - Rx?with ADRIÁN drain and on meropenem in-house. ?Patient refuses PICC line and IV anti-biotics despite d/w me and ID. ?Cx growing Klebsiella, Clostridium, Yeast, and unknown GPC, and ?ID changed abx to Augmentin, Cipro, and Fluconazole. ?Rx for at least 4 weeks and through resolution of abscess. ?Abscessogram not able to be performed due to insurance reasons at [place], d/w patient, and she would prefer to still go to [place] and get CT scan only even though the study is not as good. ?F/U with ID one month. ? 2. ?Acute LLE hematoma - large, evaluated by Plastics and non-operative mgmt being pursued. ? 3. ?Hypercoag State with Mult DVT/PE - currently on once daily therapeutic Lovenox ? 4. ?A/C Blood Loss Anemia - 2/2 #2. ?Stable H/H, follow. ? 5. ?CKD stage 3-stable 6.Deconditioning-PT,OT Medication and Non-Pharmacologic VTE Prophylaxis/Anticoagulants Anticoagulant AND Antiplatelet Medications Start Dose Route Frequency Ordered Stop 10/14/17 0000 enoxaparin (LOVENOX) 80 mg/0.8 mL syrg 1 mg/kg/dose SUBCUTANEOUS EVERY 24 HOURS 10/14/17 1443 -- 10/11/17 1800 enoxaparin 70 mg injection (LOVENOX) 1 mg/kg/dose SUBCUTANEOUS EVERY 24 HOURS 10/11/17 1736 -- 10/08/17 2300 vte non-pharmacologic prophylaxis - none indicated (va,mo) 10/08/17 2300 vte current anticoag therapy ([place], [place]) Disposition: SNF,pending precert Plan of care discussed with: Patient and RN SIGNATURE: Patsy Kirby MD PATIENT NAME: Dia Mccullough DATE: October 16, 2017 TIME: 10:00 PM PAGER/CONTACT #: monica castano etx [phone] Mal Zavala MD 10/17/2017 4:36 PM Signed INTERNAL MEDICINE PROGRESS NOTE SERVICE DATE: 10/17/2017 SERVICE TIME: 0957 Subjective Pt doing okay. Still has dry cough, since she was diagnosed with clots. Has been taking robitussin. Current Facility-Administered Medications: [JUL Hold due to Transfer] melatonin 3 mg tab(s) 3 mg ORAL AT BEDTIME [JUL Hold due to Transfer] amoxicillin-clavulanic acid 875 mg tab(s) (AUGMENTIN) 875 mg ORAL q 12 H [JUL Hold due to Transfer] ciprofloxacin HCl 500 mg tab(s) (CIPRO) 500 mg ORAL q 12 H [JUL Hold due to Transfer] fluconazole 400 mg tab(s) (DIFLUCAN) 400 mg ORAL DAILY [JUL Hold due to Transfer] acetaminophen 650 mg tab(s) (TYLENOL) 650 mg ORAL q 4 H PRN [JUL Hold due to Transfer] iv contrast (radiology procedure) INTRAVENOUS DIRECTED PRN [JUL Hold due to Transfer] enoxaparin 70 mg injection (LOVENOX) 1 mg/kg/dose SUBCUTANEOUS q 24 HR [JUL Hold due to Transfer] HYDROcodone 5 mg - acetaminophen 325 mg tablet (NORCO) 1 tablet ORAL q 4 H PRN [JUL Hold due to Transfer] polyethylene glycol 3350 17 g packet (MIRALAX, GLYCOLAX) 17 g ORAL DAILY [MAR Hold due to Transfer] metoprolol tartrate (short acting) 25 mg tab(s) (LOPRESSOR) 25 mg ORAL q 12 H [MAR Hold due to Transfer] acetaminophen 650 mg tab(s) (TYLENOL) 650 mg ORAL q 6 H PRN [JUL Hold due to Transfer] ondansetron orally disintegrating 4 mg tab(s) (ZOFRAN ODT) 4 mg ORAL q 6 H PRN [JUL Hold due to Transfer] predniSONE 5 mg tab(s) (DELTASONE) 5 mg ORAL BID PC [JUL Hold due to Transfer] predniSONE 2.5 mg tab(s) (DELTASONE) 2.5 mg ORAL DAILY wDINNER [JUL Hold due to Transfer] pantoprazole DR 40 mg tab(s) (PROTONIX) 40 mg ORAL DAILY (6 AM) [JUL Hold due to Transfer] saliva substitute combo no.9 15 mL (BIOTENE mouthwash) 15 mL MUCOUS MEMBRANE (TOPICAL MOUTH AND THROAT) 5X/DAY [JUL Hold due to Transfer] benzocaine-menthol 1 Lozenge (CEPACOL) 1 Lozenge MUCOUS MEMBRANE (TOPICAL MOUTH AND THROAT) q 2 H PRN [JUL Hold due to Transfer] 0.9% NaCl 3-5 mL 3-5 mL INTRAVENOUS q 12 H [MAR Hold due to Transfer] lactated ringers infusion 100 mL/hr INTRAVENOUS CONTINUOUS [MAR Hold due to Transfer] guaiFENesin 200 mg oral liquid (ROBITUSSIN) 200 mg ORAL QID Objective PHYSICAL EXAM: Patient Vitals for the past 24 hrs: BP Temp Temp src Pulse Resp SpO2 10/17/17 0813 147/81 36.9 ?C (98.4 ?F) Temporal Art 108 18 100 % 10/17/17 0324 160/77 36.3 ?C (97.3 ?F) Temporal Art 100 16 100 % 10/16/172004 139/71 36.7 ?C (98.1 ?F) Oral 113 18 98 % 10/16/17 1602 115/63 36.9 ?C (98.4 ?F) Oral 107 18 98 % Body mass index is 30.44 kg/m?. GENERAL: Alert, no distress, cooperative LUNGS: Lungs clear to auscultation. Good diaphragmatic excursion. CARDIAC: Normal S1 and S2; no rubs, murmurs, or gallops ABDOMEN: abd soft, adrián drain NEURO: Alert, oriented X 3 DATA: Diagnostic tests reviewed for today's visit: Component Latest Ref Rng AND Units 10/17/2017 WBC 3.98 - 10.04 thou/cmm 10.63 (H) RBC 3.93 - 5.22 mil/cmm 2.82 (L) HGB 11.2 - 15.7 g/dL 9.0 (L) Hematocrit 34.1 - 44.9 % 29.3 (L) MCV 79.4 - 94.8 fl 103.9 (H) MCH 25.6 - 32.2 pg 31.9 MCHC 31.6 - 34.8 % 30.7 (L) RDW 11.7 - 14.4 % 20.8 (H) RDW-SD 36.4 - 46.3 fl 78.7 (H) Platelet Count 182 - 369 thou/cmm 349 MPV 9.4 - 12.3 fl 9.3 (L) Seg Neutrophil % 76.8 Immature Grans % 2.60 Lymphocyte % 13.1 Monocyte % 6.5 Eosinophil % 0.8 Basophil % 0.2 Abs. Neut(Anc) 1.56 - 6.13 thou/cmm 8.16 (H) Immature Grans # 0.00 - 0.05 thou/cmm 0.28 (H) Abs. Lymph 1.18 - 3.74 thou/cmm 1.39 Abs. Greene 0.27 - 0.70 thou/cmm 0.69 Abs. Eosin 0.00 - 0.31 thou/cmm 0.09 Abs. Baso 0.01 - 0.08 thou/cmm 0.02 Sodium 136 - 145 mEq/L 140 Potassium 3.5 - 5.1 mEq/L 4.3 Chloride 98 - 107 mEq/L 108 (H) CO2 21 - 32 mEq/L 29 Glucose 70 - 99 mg/dL 114 (H) BUN 7 - 18 mg/dL 24 (H) Creatinine 0.51 - 0.95 mg/dL 1.23 (H) Calcium 8.5 - 10.1 mg/dL 8.8 Anion Gap 8 - 16 7 (L) eGFR >60mL/min/1.73m2 42.20 Culture smear 10/01/17 Component Performing Lab Cult AND Smr KATHLEEN AND AER (Abnormal) (Final) [facility] Moderate Mixed anaerobic lara. No further identification to follow. Plates will be held for 5 days. Smear Gram Stain (Final) [facility] Many WBC Few Gram negative bacilli Few Gram positive cocci Cult AND Smr KATHLEEN AND AER (Final) [facility] Klebsiella pneumoniae Few Cult AND Smr KATHLEEN AND AER (Final) [facility] Khadijah albicans Moderate Cult AND Smr KATHLEEN AND AER (Final) [facility] Clostridium perfringens Many Assessment/Plan Intra abd acess 2/2 complicated diverticulitis: -Pt refuses iv abx, picc -Per id recs: augmentin, cipo, fluconzole for 4 wk -s/p abscessogram this am with cathetor in place. Repeat in 1-2wk -Need outpt scope per surgery recs. 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 Will start today and inr check. Goal of 2--3. DIscussed can cause bleeeding. Pt is on 2mg at home, start at this dose. ANemia: -hgb stable, monitor CKD3: -stable, monitor Addisons: -cont prednisone [facility] [place] 4 wk of po abx. ID f/u in 4 wk. Cont to monitor cough, if fever or wbc check cxr. Consult: plastic, surgery, ID, heme onc, Mal Zavala MD October 17, 2017 4:36 PM SIGNATURE: Mal Zavala MD PATIENT NAME: Dia Mccullough DATE: October 17, 2017 TIME: 9:57 AM PAGER/CONTACT #: [phone] Rain Hung MD 10/17/2017 10:14 AM Signed INTERVENTIONAL RADIOLOGY POST PROCEDURE NOTE DATE: 10/17/17 NAME: Dia Mccullough LOG ID: [id number] Pre-Procedure Diagnosis: Pelvic abscess, likely 2/2 ruptured diverticulitis, s/p percutaneous drain placement Post Procedure Diagnosis: Same. Cooker Meal: Dr. Rain Hung Procedure: Fluoroscopic guided abscessogram Anesthesia: None Findings: Small residual abscess cavity with fistulous communication to sigmoid colon. Drainage catheter left in placed, plan for repeat abscessogram in 1-2 weeks. Estimated Blood Loss: Minimal (Less Than 25 mL). Specimen: None Complications: None Full report with procedural details to follow and will become available under Imaging Reports. Please contact for any questions or concerns. SIGNATURE: Rain Hung MD PATIENT NAME: Dia Mccullough DATE: October 17, 2017 TIME: 10:13 AM PAGER/CONTACT #: Becca Baptiste RN, RN 10/17/2017 11:00 AM Signed [facility] NURSE PROGRESS NOTE SERVICE DATE: 10/17/2017 SERVICE TIME: 10:58 AM REFERRED BY: Follow Up VISIT WITH: Patient REASON FOR VISIT: Coping issues and Serious illness/trauma CONDITION: Hematology/Oncology and Neuromuscular INTERVENTIONS: Emotional support and Therapeutic listening TIME SPENT (minutes): 30 Pt states she will go to ECF. Encouragement and reassurance Given. SIGNATURE: Becca Baptiste RN PATIENT NAME: Dia Mccullough DATE: October 17, 2017 TIME: 10:58 AM Kaelyn Hugo RN, RN 10/17/2017 11:06 AM Signed CARE MANAGEMENT PROGRESS NOTE SERVICE DATE: 10/17/2017 SERVICE TIME: 1105 LOS: 6 days Chart reviewed. [employer] requesting updated PT/OT evals for pre-cert approval. Paged PT - Khai, who states that Nadege will eval patient today. Anticipate d/c to [facility] once pre-cert approved. SIGNATURE: Kaelyn Hugo RN PATIENT NAME: Dia Mccullough DATE: October 17, 2017 TIME: 11:05 AM PAGER/CONTACT #: [phone] Kaelyn Hugo RN, RN 10/17/2017 11:21 AM Signed CARE MANAGEMENT PROGRESS NOTE SERVICE DATE: 10/17/2017 SERVICE TIME: 1118 LOS: 6 days Spoke with patient at bedside. Patient does not want to wait for insurance approval for long-term facility. She states that if insurance doesn't approve SNF today then she will just go home. Educated patient on importance of following physical therapy's recommendations for [facility] placement. Patient not agreeable to that plan. Requesting home physical therapy services. Referral sent to S. SIGNATURE: Kaelyn Hugo RN PATIENT NAME: Dia Mccullough DATE: October 17, 2017 TIME: 11:18 AM PAGER/CONTACT #: [phone] Misael Wei MD 10/17/2017 12:51 PM Signed INFECTIOUS DISEASE CONSULT PROGRESS NOTE SERVICE DATE: 10/17/2017 SERVICE TIME: 12:44 PM Subjective INTERVAL HISTORY / PERTINENT Review of Systems Constitutional: Negative for chills and fever. Gastrointestinal: Negative for abdominal pain, diarrhea and vomiting. Tolerating po atbs. Current Facility-Administered Medications: melatonin 3 mg tab(s) 3 mg ORAL AT BEDTIME HYDROcodone 5 mg - acetaminophen 325 mg tablet (NORCO) 1 tablet ORAL q 4 H PRN amoxicillin-clavulanic acid 875 mg tab(s) (AUGMENTIN) 875 mg ORAL q 12 H ciprofloxacin HCl 500 mg tab(s) (CIPRO) 500 mg ORAL q 12 H fluconazole 400 mg tab(s) (DIFLUCAN) 400 mg ORAL DAILY acetaminophen 650 mg tab(s) (TYLENOL) 650 mg ORAL q 4 H PRN iv contrast (radiology procedure) INTRAVENOUS DIRECTED PRN enoxaparin 70 mg injection (LOVENOX) 1 mg/kg/dose SUBCUTANEOUS q 24 HR polyethylene glycol 3350 17 g packet (MIRALAX, GLYCOLAX) 17 g ORAL DAILY metoprolol tartrate (short acting) 25 mg tab(s) (LOPRESSOR) 25 mg ORAL q 12 H ondansetron orally disintegrating 4 mg tab(s) (ZOFRAN ODT) 4 mg ORAL q 6 H PRN predniSONE 5 mg tab(s) (DELTASONE) 5 mg ORAL BID PC predniSONE 2.5 mg tab(s) (DELTASONE) 2.5 mg ORAL DAILY wDINNER pantoprazole DR 40 mg tab(s) (PROTONIX) 40 mg ORAL DAILY (6 AM) saliva substitute combo no.9 15 mL (BIOTENE mouthwash) 15 mL MUCOUS MEMBRANE (TOPICAL MOUTH AND THROAT) 5X/DAY benzocaine-menthol 1 Lozenge (CEPACOL) 1 Lozenge MUCOUS MEMBRANE (TOPICAL MOUTH AND THROAT) q 2 H PRN 0.9% NaCl 3-5 mL 3-5 mL INTRAVENOUS q 12 H lactated ringers infusion 100 mL/hr INTRAVENOUS CONTINUOUS guaiFENesin 200 mg oral liquid (ROBITUSSIN) 200 mg ORAL QID Objective PHYSICAL EXAM: Vital Signs: BP 147/81 Pulse 108 Temp 36.9 ?C (98.4 ?F) (Temporal Artery) Resp 18 Ht 152.4 cm (5') Wt 70.7 kg (155 lb 13.8 oz) SpO2 100% BMI 30.44 kg/m? Physical Exam Abdominal: There is tenderness (improving, now only mild around drain insertion site.). Doyle cloudy purulent fluid in drain. DATA: Diagnostic Tests Reviewed for Today's Visit: Most recent labs and imaging results. Abscessogram- size of abscess decreasing, communication with sigmoid colon identified. Micro: No new data Recent Labs 10/17/17 0336 10/15/17 2236 WBC 10.63* 12.59* HB 9.0* 8.2* HCT 29.3* 27.0* PLT 349 284 NEUTNUM 8.16* 10.40* CREAT 1.23* 1.36* No results found for: VANCORA Impression/Recommendations Principal Problem: Intra-abdominal abscess (HCC) POA: Yes Assessment AND Plan: Polymicrobial, from sigmoid perf. Informed pt, she was under the impression that communication with sigmoid is a good thing. I discussed potential complications of perforated sigmoid and ongoing leak with her. She is still not willing to discuss any surgical intervention. Continue current po atbs until abscess resolved. CKD (chronic kidney disease) stage 3, GFR 30-59 ml/min POA: Yes Assessment AND Plan: current atb doses ok. Resolved Problems: * No resolved hospital problems. * SIGNATURE: Misael Wei MD PATIENT NAME: Dia Mccullough DATE: October 17, 2017 TIME: 12:44 PM PAGER/CONTACT #: [phone] Nadege Hansen PTA 10/17/2017 3:33 PM Attested Attestation signed by Carlos Enrique SargentPt) Justin at 10/17/2017 3:59 PM I reviewed and agree with the documentation corresponding to this therapy visit. SIGNATURE: Carlos Enrique Anderson, PT DATE: October 17, 2017 TIME: 3:59 PM Physical Therapy Treatment SERVICE DATE: 10/17/2017 SERVICE TIME: 1445 to 1508 ROOM: [place] [address] Recommended Discharge Disposition: Subacute/SNF Justification For Post Acute Needs: Anticipate that patient will require daily (5x/wk) skilled therapy in a post-acute facility setting at the time of acute hospital discharge PT Recommendations to Nursing: Ambulate with device;Transfer to/from chair;OOB for Meals;With assist of 1 person Device: Wheeled Walker PT 6 Clicks Score: 16 Precautions/Activity Restrictions: Fall Risk Isolation Type: None ASSESSMENT :Patient Disposition at Start of Session: Supine in Bed Patient Disposition at End of Session: Supine in Bed;Call Suggs in Reach Tolerance Limited By Fatigue;Pain Patient making progress toward goals but still in need of assist to prevent fall risk with mobility. If adamant for discharge to home, will need assist with meals, bathing, and transfers. Physical Therapy Problem List: Education Deficit;Safety Deficits;Decreased Activity Tolerance;Decreased Strength;Functional Mobility Impairment;Balance Impaired Patient /Caregiver Goals: Go Home Goals for Plan of Care: Transfer supine to/from sit with: Stand By Assistance Transfer sit to/from stand with: Stand By Assistance Ambulate with: Stand By Assistance Distance: 40 ft intervals Device: Wheeled Walker Goal: Complete 15x2 general LE strength exercises Progress Toward Goals: Progressing as expected Rehab Potential: Good PLAN: Treatment Frequency (times per week): 5 (1-5) Current admission Treatment Interventions: Education;Strengthening;Functional Mobility Training;Balance Training Plan of Care developed with: Patient TREATMENT INTERVENTIONS: Therapy Diagnosis: Reduced mobility-other;Muscle Weakness (generalized);Unsteadiness on feet;Abnormalities of gait and mobility-other Interventions Provided: Therapeutic Exercise (05682);Therapeutic Activity (17253) Therapeutic Exercise (32304) Treatment Minutes: 13 1 unit Skilled Intervention(s): Instruction in General strenght program: ankle pump, quad set, glute set, adductor set, hip abduction/adduction, heel slide, short arc quad, long arc quad 2 x 10 reps with both legs. Verbal and tactile cuing provided for proper alignment and technique. Therapeutic Activity (96198) Treatment Minutes: 10 1 unit Skilled Intervention(s): Instructed patient in supine to and from sit pushing with upper extremities to sit up from flat bed. Patient using upper extremities to assist with legs. Instruction in sit to and from stand technique with proper hand placement and body positioning at edge of bed/chair. Patient completed 3 trials with cues for rocking method. Transfers, 1/2 stand pivot bed to/from bed side commode with min/contact guard assist. Stand pivot with wheel walker non weight bearing left leg with slow unsteady pace and decrease in foot clearance. Total Timed Code Treatment Minutes: 23 Total Treatment Time (minutes): 23 SUBJECTIVE: Current Hospital Course: Chart reviewed and no significant medical updates relevant to therapy were noted Reason for Physical Therapy Consult : weakness Relevant Past Medical History: Baltazar's, CKD, DVT/PE, fibromyalgia, HTN, R hip endo 2013 back sx, Patient Report: Has increase throbbing pain to left lower extremity when in dependent position. Home Environment Patient Lives With: Self/Alone Assistance Available: time study statistician (Dtr nearby) Entry To Home: No Stairs Tub/Shower Type: walk in shower with seat Laundry: on main floor Equipment Owned: [employer] Bars-Shower;Wheeled Walker;Cane;Shower Chair (transport W/C?) Prior Functional Level: Required Assistance Assistance Required With: Laundry;Cleaning;Shopping;Transportation (Dtr assists with IADLs since return home for about 1 week) Prior Functional Level Comments: Pt was at hospice, get better, went to rehab and has been at home for a week. Now developed L LE hematoma. OBJECTIVE: CURRENT FUNCTIONAL STATUS: Current Functional Mobility Assist Level Additional Information Rolling Supine to Sit Contact Guard Assistance Sit to Supine Contact Guard Assistance Scooting Contact Guard Assistance Sit to Stand Minimal Assistance Stand to Sit Minimal Assistance Bed to Chair Minimal Assistance Toilet/Commode Gait Minimal Assistance Gait Device: Wheeled Walker Gait Distance (feet): 2 x 3-4 Stairs Curb Step Car Transfer Gait Deviations Left Lower Extremity: Weight bearing decreased General Gait Deviations: Lauryn decreased;Step length decreased;Flexed trunk posture;Shuffling Gait Please see discipline specific clinical documentation flowsheet for complete details for this therapy evaluation/treatment. SIGNATURE: Nadege Hansen PTA PATIENT NAME: Dia Mccullough DATE: October 17, 2017 TIME: 3:16 PM PAGER/CONTACT #: [phone] Kaelyn Hugo RN, RN 10/17/2017 4:17 PM Signed CARE MANAGEMENT PROGRESS NOTE SERVICE DATE: 10/17/2017 SERVICE TIME: 1615 LOS: 6 days Spoke with patient and patient's son. Patient would now like to proceed with placement at SNF. Sent updated PT noted per [employer]'s request. Awaiting pre-cert approval. Anticipate approval tomorrow. SIGNATURE: Kaelyn Hugo RN PATIENT NAME: Dia Mccullough DATE: October 17, 2017 TIME: 4:16 PM PAGER/CONTACT #: [phone] Kaelyn Hugo RN, RN 10/18/2017 10:32 AM Signed CARE MANAGEMENT PROGRESS NOTE SERVICE DATE: 10/18/2017 SERVICE TIME: 1031 LOS: 7 days Chart reviewed. Received auth from [facility]. Transport arranged for 1 pm via [employer]. Patient and patient's son agreeable with plan. RN notified. SIGNATURE: Kaelyn Hugo RN PATIENT NAME: Dia Mccullough DATE: October 18, 2017 TIME: 10:31 AM PAGER/CONTACT #: [phone] Erika Mckeon MD, 10/18/2017 7:59 PM Signed DISCHARGE SUMMARY PATIENT NAME: Dia Mccullough ADMISSION DATE: 10/08/2017 DISCHARGE DATE: 10/18/2017 ATTENDING PHYSICIAN: No att. providers found REASON FOR HOSPITALIZATION: Intraabdominal abscess DISCHARGE DIAGNOSES 1. Intra abd abscess 2/2 complicated diverticulitis: 2. Sigmoid diverticulitis 3. Recent hx of DVT and PE 4. LLE Hematoma: ? 5. Anemia 6. CKD stage 3 7. Curry's disese CONSULTATION TEAMS DURING HOSPITALIZATION: ID, OPERATIONS DURING HOSPITALIZATION: None PROCEDURES DURING HOSPITALIZATION: No procedures performed HOSPITAL COURSE: 77 yrs old female who was admitted on 10/11/2017 for abd pain, N+/V+, she left leg hematoma, and intraabdominal abscess which is from acute sigmoid diverticulitis. She was started on broad spectrum antibiotics of Meropenum and ID, Surgery, Hemo/Oncology are consulted. She underwent abscessogram ADRIÁN catheter placed, her abdominal pain, nausea and vomiting symptoms are resolved, she refused PICC and iv antibiotics, so ID recommended po cipro+Augmentin; regarding DVT/PE, she used to be on coumadin,but developed hematoma, so she was switched to sq Lovenox; other chronic medical condition are stable, renal function at baseline. She will needs outpatient colonoscopy as per surgery recommendation. PT/OT evaluated her, she is to be discharged to SNF in stable improved condition. Discharge Physical Exam: VITAL SIGNS: BP 126/73 Pulse 98 Temp 36 ?C (96.8 ?F) (Temporal Artery) Resp 18 Ht 152.4 cm (5') Wt 70.7 kg (155 lb 13.8 oz) SpO2 99% BMI 30.44 kg/m? GENERAL: Alert, no distress, cooperative HEENT: PERRLA, EOMI LUNGS: Lungs clear to auscultation. Good diaphragmatic excursion. CARDIAC: Normal S1 and S2; no rubs, murmurs, or gallops ABDOMEN: abd soft, adrián drain NEURO: Alert, oriented X 3 ? PATIENT CONDITION @ Discharge: Fair DISCHARGE MEDICATIONS: Discharge Medication List as of 10/14/2017 2:43 PM START taking these medications fluconazole (DIFLUCAN) 200 mg tablet Take 2 tablets by mouth once daily.Med Update metoprolol tartrate, short acting, (LOPRESSOR) 25 mg tablet Take 1 tablet by mouth every 12 hours.Med Update, Long-term polyethylene glycol 3350 (MIRALAX, GLYCOLAX) 17 gram packet Take 1 Packet by mouth once daily.Med Update HYDROcodone-acetaminophen (NORCO) 5-325 mg per tablet Take 1 tablet by mouth every 4 hours as needed for up to 5 days.Med Update, R-0Dx: 1. Leg hematoma, left, initial encounter 2. Intra-abdominal abscess (HCC) amoxicillin-clavulanic acid (AUGMENTIN) 875-125 mg per tablet Take 1 tablet by mouth twice daily.Med Update ciprofloxacin HCl (CIPRO) 500 mg tablet Take 1 tablet by mouth twice daily.Med Update CONTINUE these medications which have CHANGED enoxaparin (LOVENOX) 80 mg/0.8 mL syrg Inject 0.7 mL subcutaneously q 24 HR.Med Update CONTINUE these medications which have NOT CHANGED !! predniSONE (DELTASONE) 2.5 mg tablet Take 2.5 mg by mouth daily before dinner.Historical Med Omeprazole 40 mg capsule Take 40 mg by mouth once daily.Historical Med !! predniSONE (DELTASONE) 5 mg tablet Take 5 mg by mouth twice daily. Historical Med ondansetron orally disintegrating (ZOFRAN ODT) 4 mg disintegrating tablet Take 1 tablet by mouth every 6 hours as needed for Nausea/Vomiting.Normal, Disp-24 tablet, R-0 !! - Potential duplicate medications found. Please discuss with provider. STOP taking these medications hydrochlorothiazide (HYDRODIURIL, ESIDRIX) 25 mg tablet Comments: Reason for Stopping: DISCHARGE DISPOSITION: [facility] FOLLOW-UP APPOINTMENTS ALREADY SCHEDULED WITH A [facility] PROVIDER No future appointments. TIME OF CARE: Discharge Management: I personally spent greater than 30 minutes involved in the discharge management of this patient. SIGNATURE: Erika Mckeon MD PAGER/CONTACT #: DATE: October 18, 2017 TIME: 7:36 PM PROTHROMBIN TIME W/INR Collected: 10/26/2017 Status: F Source: ANNMARIE 5:15 AM [facility] REPOSITORY TYPE CODE TESTS RESULT OUT OF RANGE REFERENCE UNITS LAB L300.4150 11.7-14.9 SECONDS High PROTIME 34.6 LAB L300.4200 Normal INR 3.4 Performed By: #### L300.3900 #### [facility] [address] [place], [address] PROTHROMBIN TIME W/INR Collected: 10/25/2017 Status: F Source: HOOD 5:50 AM [facility] REPOSITORY TYPE CODE TESTS RESULT OUT OF RANGE REFERENCE UNITS LAB L300.4150 11.7-14.9 SECONDS High PROTIME 31.9 LAB L300.4200 Normal INR 3.1 Performed By: #### L300.3900 #### [facility] [address] [place] [address] [place], [address] CBC W/DIFF, AUTOMATED Collected: 10/25/2017 Status: F Source: HOOD 5:50 AM [facility] REPOSITORY TYPE CODE TESTS RESULT OUT OF RANGE REFERENCE UNITS LAB L100.1000 4.4-11.0 K/mm3 Normal WBC 8.8 LAB L100.1200 4.2-5.4 M/mm3 Low RBC 3.23 LAB L100.1300 12.0-15.0 g/dl Low HGB 10.1 LAB L100.1400 37-47 % Low HCT 33.2 LAB L100.1500 81-99 fL High MCV 102.8 LAB L100.1600 27.0-32.0 pg Normal MCH 31.3 LAB L100.1700 32-36 g/gl Low MCHC 30.4 LAB L100.1810 11.6-14.6 % High RDW CV 18.8 LAB L100.1820 35.1-43.9 fl High RDW SD 68.4 LAB L100.1900 150-450 K/mm3 Normal PLT 436 LAB L100.2000 6.2-12.0 fl Normal MPV 9.2 LAB L100.2100 47-70 % High NEUT% 71.3 LAB L100.2200 19-41 % Low LY% 18.8 LAB L100.2300 0-10 % Normal MONO% 8.0 LAB L100.2400 0-5 % Normal EO% 0.9 LAB L100.2500 0-1 % Normal BASO% 0.5 LAB L100.2550 0.0-0.9 % Normal IM GRAN % 0.500 Result Comment: IG% - Immature Granulocytes (promyelocytes, myelocytes and metamyelocytes) > 1% indicates that a LEFT SHIFT is Present. LAB L100.2620 2.0-7.7 X10 3/uL Normal Absolute Neut 6.3 LAB L100.2720 0.83-4.51 X10 3/ul Normal Absolute Lymph 1.65 LAB L100.4500 SMEAR Normal COMMENT SCANNED LAB L100.7300 ANISO Normal 3+ LAB L100.7800 Normal MACROCYTE 2+ LAB L100.8600 Normal TARGET CELLS 2+ Performed By: #### L100.0100 #### [facility] [address] [place], [place], [address] BASIC METABOLIC Collected: 10/25/2017 Status: F Source: HOOD PROFILE (BMP) 5:50 AM [facility] REPOSITORY TYPE CODE TESTS RESULT OUT OF RANGE REFERENCE UNITS LAB L501.0100 74-106 mg/dL Normal GLU 82 Result Comment: Please note revised GLUCOSE reference range effective 2017. LAB L501.1000 7-18 mg/dL High BUN 20 LAB L501.1100 0.55-1.02 mg/dL Normal CREAT,SERUM 0.99 Result Comment: The validity of the calculated GFR AND GFRAA in patients over 70 years has not been determined. Clinical correlation is essential. LAB L501.1110 >60 mL/min Low EST GFR 57 Result Comment: Non- GFR Calc LAB L501.1115 >60 mL/min Normal EST GFR - AA 69 Result Comment: GFR Calc LAB L501.1300 10-20 RATIO High BUN/CRE 20.1 LAB L501.2200 8.5-10.1 mg/dL CA Normal 8.6 LAB L501.5300 136-145 mmol/L NA Normal 141 LAB L501.5600 3.5-5.1 mmol/L K Normal 4.5 LAB L501.5900 98-107 mmol/L High CL 109 LAB L501.6100 21.0-32.0 mmol/L Normal CO2 24.0 LAB L501.6200 5-15 Normal GAP 8 Performed By: #### L500.2500 #### [facility] [address] [place], [place], [address] PROTHROMBIN TIME W/INR Collected: 10/24/2017 Status: F Source: HOOD 5:10 AM [facility] REPOSITORY Order Comment: ORDERED FROM DT REQ TYPE CODE TESTS RESULT OUT OF RANGE REFERENCE UNITS LAB L300.4150 11.7-14.9 SECONDS High PROTIME 26.2 LAB L300.4200 Normal INR 2.4 Performed By: #### L300.3900 #### [facility] [address] [place], [place], [address] [phone] PROTHROMBIN TIME W/INR Collected: 10/23/2017 Status: F Source: HOOD 6:00 AM [facility] REPOSITORY Order Comment: ORDERED ON DOWNTIME TYPE CODE TESTS RESULT OUT OF RANGE REFERENCE UNITS LAB L300.4150 11.7-14.9 SECONDS High PROTIME 25.0 LAB L300.4200 Normal INR 2.3 Performed By: #### L300.3900 #### [facility] [address] [place], [place] [address]. [place], [address] PROTHROMBIN TIME W/INR Collected: 10/23/2017 Status: F Source: HOOD 5:55 AM [facility] REPOSITORY Order Comment: RESULT(S) PREVIOUSLY REPORTED ON MANUAL REQUISITION DURING DOWNTIME. TYPE CODE TESTS RESULT OUT OF RANGE REFERENCE UNITS LAB L300.4150 11.7-14.9 SECONDS High PROTIME 25.0 LAB L300.4200 Normal INR 2.3 Performed By: #### L300.3900 #### [facility] [address] [place] [address]. [place], [place], [address] PROTHROMBIN TIME W/INR Collected: 10/22/2017 Status: F Source: HOOD 12:00 AM [facility] REPOSITORY Order Comment: RESULT(S) PREVIOUSLY REPORTED ON MANUAL REQUISITION DURING DOWNTIME. TYPE CODE TESTS RESULT OUT OF RANGE REFERENCE UNITS LAB L300.4150 11.7-14.9 SECONDS High PROTIME 22.8 LAB L300.4200 Normal INR 2.0 Performed By: #### L300.3900 #### [facility] [place], [address] PROTHROMBIN TIME W/INR Collected: 10/21/2017 Status: F Source: HOOD 5:55 AM [facility] REPOSITORY Order Comment: RESULT(S) PREVIOUSLY REPORTED ON MANUAL REQUISITION DURING DOWNTIME. TYPE CODE TESTS RESULT OUT OF RANGE REFERENCE UNITS LAB L300.4150 11.7-14.9 SECONDS High PROTIME 16.1 LAB L300.4200 Normal INR 1.3 Performed By: #### L300.3900 #### [facility] [address] [place], [address] PROTHROMBIN TIME W/INR Collected: 10/20/2017 Status: F Source: HOOD 6:00 AM [facility] REPOSITORY Order Comment: RESULT(S) PREVIOUSLY REPORTED ON MANUAL REQUISITION DURING DOWNTIME. TYPE CODE TESTS RESULT OUT OF RANGE REFERENCE UNITS LAB L300.4150 11.7-14.9 SECONDS High PROTIME 16.1 LAB L300.4200 Normal INR 1.3 Performed By: #### L300.3900 #### [facility] [address] [place], [address] HOSP Observed: 10/20/2017 Status: COMPLETED Source: ARVIN 12:00 AM CLINIC OTHER CAMPUS REPOSITORY Patient:Dia Mccullough MRN: <[id number]> Height:5' 0(1.524 m) Weight:155 lb 13.8 oz (70.7 kg) Outpatient Medications as of 10/27/17: warfarin (COUMADIN) 2 mg tablet fluconazole (DIFLUCAN) 200 mg tablet metoprolol tartrate, short acting, (LOPRESSOR) 25 mg tablet polyethylene glycol 3350 (MIRALAX, GLYCOLAX) 17 gram packet amoxicillin-clavulanic acid (AUGMENTIN) 875-125 mg per tablet ciprofloxacin HCl (CIPRO) 500 mg tablet predniSONE (DELTASONE) 2.5 mg tablet Omeprazole 40 mg capsule predniSONE (DELTASONE) 5 mg tablet ondansetron orally disintegrating (ZOFRAN ODT) 4 mg disintegrating tablet Admission/Clinic Administered Medications as of 10/27/17: iv contrast (radiology procedure) 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.4] Asthma [J45.909] Vitamin D deficiency [E55.9] Osteoarthrosis, unspecified whether generalized or localized, hand [M19.049] Osteoarthrosis, unspecified whether generalized or localized, ankle and foot [M19.079] Fibromyalgia [M79.7] Sicca 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.00] Acute thromboembolism of deep veins of lower extremity (HCC) [I82.409] Inflammatory polyarthritis (HCC) [M06.4] DVT (deep venous thrombosis) (HCC) [I82.409] Pulmonary embolism, bilateral (HCC) [I26.99] Pulmonary emboli (HCC) [I26.99] PMR (polymyalgia rheumatica) (HCC) [M35.3] Generalized osteoarthritis [M15.9] CKD (chronic kidney disease) stage 3, GFR 30-59 ml/min [N18.3] Venous insufficiency (chronic) (peripheral) [I87.2] 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] Perforated bowel (HCC) [K63.1] 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] Intra-abdominal abscess (HCC) [K65.1] Traumatic hematoma of left lower leg [S80.12XA] Leg hematoma, left, initial encounter [S80.12XA] Pelvis, female abscess [N73.9] Allergies: Ansaid [Flurbiprofen] Arthrotec 50 [Diclofenac-Misoprostol] Augmentin [Amoxicillin-Pot Clavulanate] Doxycycline Erythromycin Grass Pollen Lodine [Etodolac] Nsaids (Non-Steroidal Anti-Inflammatory Drug) Poison Lisa Vioxx [Rofecoxib] Date Verified: 10/27/17 Lab Values Lab Value Units Date High Low POTA* 4.3 mEq/L 10/17/2017 5.1 3.5 MOLINA* 29.3 % 10/17/2017 44.9 34.1 Progress Notes (): Gold Clemens MD 10/08/2017 11:51 PM Signed [facility] HISTORY AND PHYSICAL EXAMINATION SERVICE DATE: 10/08/2017 10:57 PM PRIMARY CARE PHYSICIAN: Mallorie Wheeler MD Subjective CHIEF COMPLAINT: Left leg hematoma HPI: This is a 77 year old female who has a complicated recent medical history starting August 24 when she was diagnosed with diverticular abscess/perforation and septic shock. She was brought here for surgical eval from [place], but declined operative intervention and requested to go home with hospice on PO antibiotics. She took 2 weeks of antibiotics, had stabilization and improvement of her symptoms, but subsequently developed hematemesis due to anticoagulation and presumed PUD. She was admitted to inpatient hospice residence, but with stopping her anticoagulation, hematemesis stopped and she was discharged from inpatient hospice. She then had new DVT and PE developing off anticoagulation and was re-hospitalized, with initiation of Lovenox at full dose. She spent some time in the transitional care unit and was sent home 1 week ago on Lovenox. Yesterday she noted an area on her left foot/pretibial area of bruise/oozing blood, but it worsened and progressed to cover much of the pretibial area with more bleeding, and she went to the [place] ED this morning. She was discharged back home after wound evaluation and no finding of circulatory compromise. Her son then brought her back to the ED with a concern over abdominal pain and insistent on hospitalization per [place] ED notes. Eval included CT abdomen which showed a 5 cm abscess/phlegmon in the same area as the original perforation, and she was recommended to be transferred to have IR evaluation of percutaneous drainage. Patient denies any abdominal pain at any time recently, and has no fever/chills/nausea/vomiting. She is eating and drinking without difficulty and having relatively formed stools. Mild pain left leg. 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 - Inflammatory polyarthropathy - Normocytic anemia - PE (pulmonary thromboembolism) ([facility]) 01/05/14 Bilat, extensive - Pulmonary embolism without acute cor pulmonale - Pure hypercholesterolemia - Sicca syndrome - Unspecified essential hypertension - Unspecified gastritis and gastroduodenitis without mention of hemorrhage - Urinary tract infection, site not specified - Venous insufficiency (chronic) (peripheral) - Vitamin D deficiency PAST SURGICAL HISTORY Procedure Laterality Date - CATARACT EXTRACTION HX Right - PARTIAL HIP REPLACEMENT Right 04/2013 - PAST SURGICAL HISTORY OF hernia repair - PAST SURGICAL HISTORY OF 11/2012 L3-L4 laminectomy and fusion - PAST SURGICAL HISTORY OF 11/2012 Back fusion surgery - TOTAL HIP REPLACEMENT 05/10/2013 right hip replacement - VENOUS DUPLEX BOTH LOWER EXTREMITIES 05/12/2016 FAMILY HISTORY Problem Relation Age of Onset - Diabetes Mother - Heart Mother - Heart Father - Denies family history of malignancy or thromboembolism. [OTHER] Other Social History Substance Use Topics - Smoking status: Never Smoker - Smokeless tobacco: Never Used - Alcohol use No MEDICATIONS Please see reconciled medication list in Epic for details on home medications. ALLERGIES Allergen Reactions - Ansaid [Flurbiprofe* GI Upset Ulcer - Arthrotec 50 [Diclo* GI Upset Cytotec upset stomach more than just the voltaren by itself - Augmentin [Amoxicil* GI Upset tolerates cephalexin - Doxycycline GI Upset - Erythromycin GI Upset - Grass Pollen - Lodine [Etodolac] - Nsaids (Non-Steroid* Unknown - Poison Lisa - Vioxx [Rofecoxib] GI Upset COMPLETE REVIEW OF SYSTEMS: PAIN ASSESSMENT: CURRENTLY HAVING PAIN; Left leg mild pain GENERAL: Fatigue HEENT: Negative for frequent or significant headaches, No changes in hearing or vision, no nose bleeds or other nasal problems NECK: Negative for lumps, goiter, pain and significant neck swelling RESPIRATORY: Negative for cough, hemoptysis, wheezing, COPD, dyspnea or shortness of breath CARDIOVASCULAR: Negative for chest pain, leg swelling, hypertension, CHF or palpitations GI: No nausea, vomiting, or diarrhea and Negative for abdominal discomfort, blood in stools or black stools, change in bowel habit, heart burn : No history of dysuria, frequency or incontinence MUSCULOSKELETAL: see HPI SKIN: See HPI PSYCH: Negative for sleep disturbance, mood disorder and recent psychosocial stressors HEMATOLOGY/LYMPHOLOGY: Positive for bruises easily ENDOCRINE: Negative for cold or heat intolerance, polyuria, polydipsia and goiter NEURO: No history of headaches, syncope, paralysis, seizures or tremors Objective PHYSICAL EXAM: GENERAL: Alert, no distress, cooperative SKIN: left leg dressing from knee to midfoot not disturbed at this time, no blood on bandages HEAD/SINUSES: No significant findings EYES: PERRLA, EOMI OROPHARYNX: Lips, mucosa, and tongue normal. Teeth and gums normal. Oropharynx normal. NECK: No jugulovenous distention, No carotid bruits, Carotid pulse normal contour, Supple LUNGS: Lungs clear to auscultation, Good diaphragmatic excursion CARDIAC: Normal S1 and S2; no rubs, murmurs, or gallops ABDOMEN: Abdomen soft, non-tender, BS normal, No masses or organomegaly EXTREMITIES: chronic lymphedema changes both legs NEURO: Grossly normal cognition, motor function, and cranial nerves III-XII PULSES: 2+ radial, 2+ dorsalis pedis, 2+ carotid, good cap refill in left foot Patient Vitals for the past 24 hrs: BP Temp Temp src Pulse Resp SpO2 Height Weight 10/08/171958 - - - 114 - - - - 10/08/171950 113/71 36.7 ?C (98.1 ?F) Temporal Art (!) 137 18 97 % 152.4 cm (5') 68 kg (150 lb) Body mass index is 29.29 kg/m?. Assessment/Plan Principal Problem: Intra-abdominal abscess (HCC) POA: Yes Assessment AND Plan: Patient survived sepsis from perforation with only oral antibiotics, finished course 4 weeks ago and has not had symptoms of sepsis/fever/chills or abdominal pain since then. The findings on CT scan are likely residual fluid collection but the clinical scenario does not suggest active infection, nor do I think that percutaneous drainage would offer any improvement to her situation since she is nontender to exam and is not having pain. No need for intervention Active Problems: DVT (deep venous thrombosis) (HCC) POA: Yes Assessment AND Plan: Currently on Lovenox and will continue but at a lower dose since having bleeding complications with left leg hematoma Pulmonary emboli (HCC) POA: Yes Assessment AND Plan: On lovenox, but will reduce dose as above CKD (chronic kidney disease) stage 3, GFR 30-59 ml/min POA: Yes Assessment AND Plan: stable Cr compared to previous values. Will continue IVF and check labs again in AM Venous insufficiency (chronic) (peripheral) POA: Yes Assessment AND Plan: chronic and stable Curry disease POA: Yes Assessment AND Plan: continue home prednisone routine TID dosing. Traumatic hematoma of left lower leg POA: Yes Assessment AND Plan: will have wound evaluation, but no signs compartment syndrome and not suspicious of infection at this time. Resolved Problems: * No resolved hospital problems. * Advanced Care Planning Purpose of Encounter: Advanced care planning in light of Intra-abdominal abscess (HCC) Parties in Attendance: Patient, Dr. Gold Clemens MD, Decisional Capacity: full Code Status: DNR-CCA Time Spent on Advance Care Plannin minutes Total time 50 minutes during this encounter, including chart review, discussion with nursing staff and/or other providers, documentation, work order detailer, and [id number] time with patient. Of this time, greater than 50% was spent counseling and coordinating care. Counseling elements include educating the patient about diagnosis, further testing, and care related to Intra-abdominal abscess (HCC). Plan of care discussed with: Patient and RN VTE Prophylaxis: Patient is already anti-coagulated. Diagnostic tests reviewed for today's visit: Most recent labs and imaging results. Most recent EKG TELEMETRY: [facility] Imaging Services [address] [place] [address] Abdomen/Pelvis without Cont MR#: [id number] Acct: [id number] Name: DIA MCCULLOUGH Rep #: [id number] : [id number] F [id number] From: Mckay Faulkner MD PCP: Jared Romero MD Status: REG ER Study: Abdomen/Pelvis without Cont Date of Exam: 10/08/17 Exam# [id number] Ordering Dr: Ronn Marrero MD STUDY: CT ABDOMEN AND PELVIS WITHOUT CONTRAST REASON FOR EXAM: Female, 77 years old. Abdominal pain. Bowel perforation RADIATION DOSAGE (If Supplied By Facility): CTDIvol = ( 7.83 ) mGy, DLP = ( 387.50 ) mGycm TECHNIQUE: Transaxial images were obtained from the dome of the diaphragm to the symphysis pubis without oral contrast, and without intravenous contrast. Sagittal and coronal images were reconstructed. Individualized dose optimization techniques were used for this CT. COMPARISON: August 24, 2017 CT abdomen pelvis FINDINGS: Lung bases demonstrate no evidence for consolidative process. Gallbladder slightly distended. Liver and pancreas are within normal limits of size. The spleen appears unremarkable. Adrenal glands appear unremarkable Bowel gas pattern is nonobstructive. Duodenal diverticulum seen along the third segment of the duodenum. Kidneys demonstrate no evidence for hydronephrosis Vascular calcifications of the abdominal aorta. Subcutaneous emphysema in the abdominal wall Significant interval decrease in free intraperitoneal air. Colonic diverticulosis with adjacent phlegmonous changes in the distal sigmoid colon noted with a ill-defined pockets of gas and fluid in the presacral region measuring approximately 4.4 cm x 5 cm likely an ill-defined fluid collection/abscess. Study lacks intravenous contrast for complete assessment. Urinary bladder is slightly distended. Degenerative changes in the sacroiliac joints as well as the lumbar spine. Diffuse osteopenia. Postsurgical changes in the lumbar spine also seen. Right-sided hip prosthesis IMPRESSION: Sigmoid colonic diverticulosis with adjacent inflammatory stranding likely related with sigmoid colonic diverticulitis with previously seen perforation and likely 5 cm x 4.4 cm ill-defined fluid collection with pockets of gas likely an abscess in the presacral space. Study lacks intravenous contrast for complete assessment. Colonic fistulas are not excluded. Subcutaneous emphysema in the abdominal wall Significant interval decrease in previously noted free air SIGNATURE: Gold Clemens MD PATIENT NAME: Dia Mccullough DATE: October 08, 2017 TIME: 10:57 PM PAGER/CONTACT #: [phone] NIGHT AND WEEKEND COVERAGE: After 7pm please page [phone] Gold Clemens MD 10/09/2017 6:45 AM Signed Pulse > 150, tele showed SVT, EKG confirmed. Metoprolol PO given, will monitor response. No IV access at this time. Javier Wiley MD 10/17/2017 9:24 PM Signed CONSULT: General Surgery SERVICE SERVICE DATE: 10/09/2017 SERVICE TIME: 9:42 AM REASON FOR CONSULT: Intraabdominal abscess REQUESTING PHYSICIAN: Dr. Damon PRIMARY CARE PHYSICIAN: Mallorie Wheeler MD Subjective Ms. Mccullough is a 77 year old female recently admitted 08/24/17 from [place] for diverticular abscess/perforation and septic shock. After multiple discussion (with patient/family) regarding recommendations for surgery, patient was discharged to hospice at patient's request on po antibiotics. 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 Readmitted yesterday for CT findings. Denies prior bouts of diverticulitis. No prior colonoscopies. Denies abdominal pain, nausea, or vomiting. Tolerating po. Patient states last BM was 2 days ago and wnl. Tm 37.4 o/n. Tachycardic to 150s this am. No recent weight loss. Denies FMH of IBD or GI malignancy. CT A/P: subcutaneous emphysema in the abdominal wall. Significant decrease in free intraperitoneal air. Colonic diverticulosis wih adjacent phlegmonous changes in the distal sigmoid colon noted with an ill defined pocket of gas and fluid in the presacral region measuring approximately 4.4 x5 cm (likely an ill defined fluid collection/abscess). Colonic fistulas not excluded. 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 - Inflammatory polyarthropathy - Normocytic anemia - PE (pulmonary thromboembolism) (HCC) 01/05/14 Bilat, extensive - Pulmonary embolism without acute cor pulmonale - Pure hypercholesterolemia - Sicca syndrome - Unspecified essential hypertension - Unspecified gastritis and gastroduodenitis without mention of hemorrhage - Urinary tract infection, site not specified - Venous insufficiency (chronic) (peripheral) - Vitamin D deficiency PAST SURGICAL HISTORY Procedure Laterality Date - CATARACT EXTRACTION HX Right - PARTIAL HIP REPLACEMENT Right 04/2013 - PAST SURGICAL HISTORY OF hernia repair - PAST SURGICAL HISTORY OF 11/2012 L3-L4 laminectomy and fusion - PAST SURGICAL HISTORY OF 11/2012 Back fusion surgery - TOTAL HIP REPLACEMENT 05/10/2013 right hip replacement - VENOUS DUPLEX BOTH LOWER EXTREMITIES 05/12/2016 FAMILY HISTORY Problem Relation Age of Onset - Diabetes Mother - Heart Mother - Heart Father - Denies family history of malignancy or thromboembolism. [OTHER] Other Social History Substance Use Topics - Smoking status: Never Smoker - Smokeless tobacco: Never Used - Alcohol use No Prescriptions Prior to Admission: predniSONE (DELTASONE) 2.5 mg tablet Take 2.5 mg by mouth daily before dinner. Disp: Rfl: enoxaparin (LOVENOX) 80 mg/0.8 mL syrg Inject 80 mg subcutaneously q 12 HR. Disp: Rfl: Omeprazole 40 mg capsule Take 40 mg by mouth once daily. Disp: Rfl: predniSONE (DELTASONE) 5 mg tablet Take 5 mg by mouth twice daily. Disp: Rfl: ondansetron orally disintegrating (ZOFRAN ODT) 4 mg disintegrating tablet Take 1 tablet by mouth every 6 hours as needed for Nausea/Vomiting. Disp: 24 tablet Rfl: 0 Past Week at Unknown time hydrochlorothiazide (HYDRODIURIL, ESIDRIX) 25 mg tablet Take 1 tablet by mouth once daily. 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) Disp: Rfl: 10/07/2017 at Unknown time Current hospital medications: enoxaparin 70 mg injection (LOVENOX) 1 mg/kg/dose SUBCUTANEOUS DAILY metoprolol tartrate (short acting) 75 mg tab(s) (LOPRESSOR) 75 mg ORAL q 12 H magnesium sulfate in water 2 g in sterile water 50 ml 2 g INTRAVENOUS ONCE hydroCHLOROthiazide 25 mg tab(s) (HYDRODIURIL, ESIDRIX) 25 mg ORAL DAILY ondansetron orally disintegrating 4 mg tab(s) (ZOFRAN ODT) 4 mg ORAL q 6 H PRN predniSONE 5 mg tab(s) (DELTASONE) 5 mg ORAL BID PC predniSONE 2.5 mg tab(s) (DELTASONE) 2.5 mg ORAL DAILY wDINNER pantoprazole DR 40 mg tab(s) (PROTONIX) 40 mg ORAL DAILY (6 AM) saliva substitute combo no.9 15 mL (BIOTENE mouthwash) 15 mL MUCOUS MEMBRANE (TOPICAL MOUTH AND THROAT) 5X/DAY benzocaine-menthol 1 Lozenge (CEPACOL) 1 Lozenge MUCOUS MEMBRANE (TOPICAL MOUTH AND THROAT) q 2 H PRN 0.9% NaCl 3-5 mL 3-5 mL INTRAVENOUS q 12 H lactated ringers infusion 100 mL/hr INTRAVENOUS CONTINUOUS morphine 1-2 mg injection 1-2 mg INTRAVENOUS q 4 H PRN guaiFENesin 200 mg oral liquid (ROBITUSSIN) 200 mg ORAL QID Allergies As of Date: 10/08/2017 Allergen Noted Reaction ANSAID [FLURBIPROFEN] 12/22/2010 GI Upset ARTHROTEC 50 [DICLOFENAC-MISOPROS*06/24/2011 GI Upset AUGMENTIN [AMOXICILLIN-POT CLAVUL*08/31/2008 GI Upset DOXYCYCLINE 03/17/2005 GI Upset ERYTHROMYCIN 03/17/2005 GI Upset GRASS POLLEN 02/17/2006 LODINE [ETODOLAC] 03/17/2005 NSAIDS (NON-STEROIDAL ANTI-INFLAM*03/11/2017 Unknown POISON LISA 03/17/2005 VIOXX [ROFECOXIB] 03/17/2005 GI Upset Fully Assessed 10/08/2017 COMPLETE REVIEW OF SYSTEMS: See HPI for pertinent ROS Objective PHYSICAL EXAM: Physical Exam Performed: GENERAL: Alert, no distress, cooperative SKIN: Skin color, texture, turgor normal. No rashes or lesions. HEAD/SINUSES: No significant findings LUNGS: no respiratory distress on RA CARDIAC: tachycardic ABDOMEN: Soft, ND, NT, No R/G/BS, ecchymosis noted over LLQ BP 125/68 Pulse 150 Temp (Src) 99.3 (Temporal Artery) Resp 18 Ht 5' 0 (1.52m) Wt 150 lb (68.0kg) SpO2 96% BMI 29.30 kg/(m2). DATA: Diagnostic tests reviewed for today's visit: Most recent labs and imaging results. CBC, Coags, BMP, Mg, Phos Recent Labs 10/09/17 0630 WBC 15.73* HB 7.8* HCT 25.4* PLT 264 NA 138 K 3.5 CHLOR 105 CO2 24 BUN 32* CREAT 1.55* GLUC 116* CA 8.0* MG 1.4* P 3.6 10/08: WBC 20.7, HGB 9.8, Cr 1.6 Impression/Recommendations 77 yo F with diverticulitis c/b perforation/abscess -clinically benign exam, with improving leukocytosis (15.7 <- 20); abscess/phlegmon ill defined on current imaging -d/w transplant surgeon radiologist, developing abscess is located in a region that would be technically very difficult to drain percutaneously -given benign/improved exam, recommend continuing antibiotics per primary, no current plans for surgical intervention -will monitor exam for surgical needs. If exam changes or patient develops signs of worsening infection, will likely need surgical drainage (transrectal vs laparoscopic drain placement) -d/w Dr. Wiley Emergency General Surgery Service Pager: For questions or concerns Mon-Fri 6a-5p please page [phone]. After 5pm and on Weekends and Holidays, please page [phone] if in ICU or [phone] if on RNF. SIGNATURE: Lina Damico MD PATIENT NAME: Dia Mccullough DATE: October 09, 2017 TIME: 8:59 AM PAGER: [phone] Attending Note I evaluated the patient and personally participated in the canales components. I agree with the resident's findings and plan as documented and have discussed the case and management of the patient's care with the resident. Difficult to access and poorly defined abscess. Patient is amenable to IR drainage or laparoscopic assisted drainage, but does not wish full colectomy. Will proceed with trial of IV abx and symptoms management at this time. Patient was tolerating diet without difficulty on my exam. Javier Wiley MD Department of General Surgery Section of Trauma, Surgery Critical Care, and Acute Care Surgery Delayed entry Previous Version Jose Maria Mittal MD 10/09/2017 2:02 PM Addendum DEPARTMENT OF HOSPITAL MEDICINE PROGRESS NOTE SERVICE DATE: 10/09/2017 SERVICE TIME: 1:33 PM Hospital Medicine/Primary Attending: Jose Maria Mittal MD NIGHT AND WEEKEND COVERAGE: After 7pm please page [phone] CHIEF COMPLAINT: bleeding in left leg SUBJECTIVE: 6 weeks ago she had bowel perforation and was brought in here. She decided not to have surgery and was sent home on 2 weeks of oral abx. 2 weeks later she has hematemesis while on coumadin. She was treated with vit k at [facility] and was sent to hospice [facility]. She stablized and sent home. Then she developed DVT/ PE and was started on sc lovenox 1mg/kg BID (has CKD 3-4). She then developed bleeding and hematoma in left leg. She denies any abdominal pain, nausea or vomiting or black stool. Denies any chest pain, dyspnea or palpitation. OBJECTIVE: PHYSICAL EXAM: BP 113/88 Pulse 99 Temp (Src) 97.3 (Temporal Artery) Resp 18 Ht 5' 0 (1.52m) Wt 150 lb (68.0kg) SpO2 93% BMI 29.30 kg/(m2). GENERAL: Alert, no distress, cooperative, SKIN: Skin color, texture, turgor normal. No rashes or lesions. OROPHARYNX: Lips, mucosa, and tongue normal. Teeth and gums normal. Oropharynx normal. LUNGS: Lungs clear to auscultation, Air entry good, Unlabored breathing. CARDIAC: Normal S1 and S2; no rubs, murmurs, or gallops ABDOMEN: Abdomen soft, non-tender, non-distended, BS normal. Bruise in her belly EXTREMITIES: left leg: wrapped in dressing and Spike wrap. Foot warm with intact sensation. Right foot non bleeding echymosis NEURO: Grossly normal cognition, motor function, and cranial nerves III-XII MEDICATIONS: Current hospital medications: enoxaparin 70 mg injection (LOVENOX) 1 mg/kg/dose SUBCUTANEOUS DAILY metoprolol tartrate (short acting) 75 mg tab(s) (LOPRESSOR) 75 mg ORAL q 12 H hydroCHLOROthiazide 25 mg tab(s) (HYDRODIURIL, ESIDRIX) 25 mg ORAL DAILY ondansetron orally disintegrating 4 mg tab(s) (ZOFRAN ODT) 4 mg ORAL q 6 H PRN predniSONE 5 mg tab(s) (DELTASONE) 5 mg ORAL BID PC predniSONE 2.5 mg tab(s) (DELTASONE) 2.5 mg ORAL DAILY wDINNER pantoprazole DR 40 mg tab(s) (PROTONIX) 40 mg ORAL DAILY (6 AM) saliva substitute combo no.9 15 mL (BIOTENE mouthwash) 15 mL MUCOUS MEMBRANE (TOPICAL MOUTH AND THROAT) 5X/DAY benzocaine-menthol 1 Lozenge (CEPACOL) 1 Lozenge MUCOUS MEMBRANE (TOPICAL MOUTH AND THROAT) q 2 H PRN 0.9% NaCl 3-5 mL 3-5 mL INTRAVENOUS q 12 H lactated ringers infusion 100 mL/hr INTRAVENOUS CONTINUOUS morphine 1-2 mg injection 1-2 mg INTRAVENOUS q 4 H PRN guaiFENesin 200 mg oral liquid (ROBITUSSIN) 200 mg ORAL QID DATA: Diagnostic tests reviewed for today's visit: CBC, Coags, BMP, Mg, Phos Recent Labs 10/09/17 0630 WBC 15.73* HB 7.8* HCT 25.4* PLT 264 NA 138 K 3.5 CHLOR 105 CO2 24 BUN 32* CREAT 1.55* GLUC 116* CA 8.0* MG 1.4* P 3.6 Liver Function, Amylase, AND Lipase Cardiac Enzymes Heme: Recent Labs 10/09/17 0825 10/09/17 0630 ABSRETIC -- 0.095 RITO -- 181.50 FE 29* -- TIBC 186* -- Albumin/Creat Ratio (mg/g) Date Value 11/03/2013 3 Assessment/Plan Patient Active Hospital Problem List: Intra-abdominal abscess (HCC) (10/08/2017) DVT (deep venous thrombosis) (HCC) (01/08/2014) Pulmonary emboli (HCC) (01/30/2014) CKD (chronic kidney disease) stage 3, GFR 30-59 ml/min (11/28/2014) Venous insufficiency (chronic) (peripheral) () Curry disease () Traumatic hematoma of left lower leg (10/08/2017) Leg hematoma, left, initial encounter (10/08/2017) ASSESSMENT: 1. Sigmoid diverticulitis with pervious perforation with 5cm pelvic abscess: minimal symptoms. 2. Bowel perforation 08/24/17: she refused surgery at that time and was treated with abx. Survived. 3. 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 Used to be on coumadin which was stopped when she developed hematemesis. Since her last PE/PE, was placed on lovenox 1mg/kg BID 4. Left leg bleeding/ hematoma: probably due to higher dose of lovenox for CKD 3-4 Currently wrapped with dressing and SPIKE 5. Episode of hematemesis 5 weeks ago while on coumadin- managed with vitk. No scope done. 6. SVT this am: better with metoprolol. 7. Anemia: most likely due to bleed.? CKD and recent conditions contributing. 8. Addision's disease: 9. CKD3 PLAN: She is willing to get abx and drain for intraabdominal abscess. Still does not want surgery. Start meropenem. Consult ID and general surgery. Will need drainage of abscess. Continue to apply spike wrap pressure dressing to left leg. Continue lovenox at 1mg/kg daily dose. Consider eventual transition to coumadin (NOAC too expensive per patient) or IVC filter. Will get opinion of furrier apprentice- has seen Dr Irizarry in the past. Check ferritin, retic, vitamin b12 and folate. This was discussed with patient and later with son on the phone She is DNRCCA and no mechanical ventilation for respiratory distress either. VTE Prophylaxis: Patient is already anti-coagulated. Disposition: Home with [facility] Plan of care discussed with: Patient, Family/Other: son and RN SIGNATURE: Jose Maria Mittal MD PATIENT NAME: Dia Mccullough DATE: October 09, 2017 TIME: 1:33 PM PAGER/CONTACT #: [phone] Previous Version Shawna Henning MD 10/09/2017 2:43 PM Signed Patient seen and Heme issues discussed with patient and son. Consult dictated. 1. Patient doing well on Lovenox. 2. Keep current dose. 70 mg daily. 3. Hemostatic decisions will be based on surgeons decision in regard to surgery. Will facilitate the surgeons decision. Will follow. MD Philip Cody CHAPLAIN, Chaplain 10/09/2017 2:59 PM Signed SPIRITUALCARE Spiritual Care Visit- Brief Note Name: Dia Mccullough Date: October 09, 2017 Notes: As , made intro visit with pt. Listened empathetically to pt's concerns. Reminded pt of 06/12 SC. Paint Line Production Supervisor Signature: CHAPLAIN Wilbert To contact the [facility] Care Department: Please call [phone] or Page the On-Call Paint Line Production Supervisor at pager [phone] Thank you for the opportunity to be of service. This is an electronically created document. IF PRINTED, PLEASE DO NOT REMOVE FROM THE CHART OR MODIFY PRINTED COPY. Zhane Mcgovern III, MD 10/09/2017 8:19 PM Signed CONSULT: INFECTIOUS DISEASE SERVICE SERVICE DATE: 10/09/2017 SERVICE TIME: 4:02PM REASON FOR CONSULT: Abdominal abscess REQUESTING PHYSICIAN: Dr. Damon PRIMARY CARE PHYSICIAN: Mallorie Wheeler MD Subjective . 77 year old female who was in [facility] in August for perforated bowel Had refused surgery and actually went home on hospice and on oral antibiotics. Has been receiving blood thinner. Recently had hematoma of the left leg. Per HAND[facility], she was brought back to [place] ED for abdominal pain. There, it was found that she had a 5cm intra-abdominal abscess. She was transferred here for evaluaton for percutaneous drain which has been ordered. She actually denies any abdominal pain to me. Denies any fevers or chills. Currently on meropenem ALLERGIES Allergen Reactions - Ansaid [Flurbiprofe* GI Upset Ulcer - Arthrotec 50 [Diclo* GI Upset Cytotec upset stomach more than just the voltaren by itself - Augmentin [Amoxicil* GI Upset tolerates cephalexin - Doxycycline GI Upset - Erythromycin GI Upset - Grass Pollen - Lodine [Etodolac] - Nsaids (Non-Steroid* Unknown - Poison Lisa - Vioxx [Rofecoxib] GI Upset She also reports intolerance to flagyl. 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 - Inflammatory polyarthropathy - Normocytic anemia - PE (pulmonary thromboembolism) ([facility]) 01/05/14 Bilat, extensive - Pulmonary embolism without acute cor pulmonale - Pure hypercholesterolemia - Sicca syndrome - Unspecified essential hypertension - Unspecified gastritis and gastroduodenitis without mention of hemorrhage - Urinary tract infection, site not specified - Venous insufficiency (chronic) (peripheral) - Vitamin D deficiency PAST SURGICAL HISTORY Procedure Laterality Date - CATARACT EXTRACTION HX Right - PARTIAL HIP REPLACEMENT Right 04/2013 - PAST SURGICAL HISTORY OF hernia repair - PAST SURGICAL HISTORY OF 11/2012 L3-L4 laminectomy and fusion - PAST SURGICAL HISTORY OF 11/2012 Back fusion surgery - TOTAL HIP REPLACEMENT 05/10/2013 right hip replacement - VENOUS DUPLEX BOTH LOWER EXTREMITIES 05/12/2016 FAMILY HISTORY Problem Relation Age of Onset - Diabetes Mother - Heart Mother - Heart Father - Denies family history of malignancy or thromboembolism. [OTHER] Other Social History Substance Use Topics - Smoking status: Never Smoker - Smokeless tobacco: Never Used - Alcohol use No Prescriptions Prior to Admission: predniSONE (DELTASONE) 2.5 mg tablet Take 2.5 mg by mouth daily before dinner. Disp: Rfl: enoxaparin (LOVENOX) 80 mg/0.8 mL syrg Inject 80 mg subcutaneously q 12 HR. Disp: Rfl: Omeprazole 40 mg capsule Take 40 mg by mouth once daily. Disp: Rfl: predniSONE (DELTASONE) 5 mg tablet Take 5 mg by mouth twice daily. Disp: Rfl: ondansetron orally disintegrating (ZOFRAN ODT) 4 mg disintegrating tablet Take 1 tablet by mouth every 6 hours as needed for Nausea/Vomiting. Disp: 24 tablet Rfl: 0 Past Week at Unknown time hydrochlorothiazide (HYDRODIURIL, ESIDRIX) 25 mg tablet Take 1 tablet by mouth once daily. 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) Disp: Rfl: 10/07/2017 at Unknown time Current hospital medications: enoxaparin 70 mg injection (LOVENOX) 1 mg/kg/dose SUBCUTANEOUS DAILY metoprolol tartrate (short acting) 75 mg tab(s) (LOPRESSOR) 75 mg ORAL q 12 H meropenem 1 g in NaCl 0.9% 100 mL MB+ (MERREM) 1 g INTRAVENOUS q 12 H hydroCHLOROthiazide 25 mg tab(s) (HYDRODIURIL, ESIDRIX) 25 mg ORAL DAILY ondansetron orally disintegrating 4 mg tab(s) (ZOFRAN ODT) 4 mg ORAL q 6 H PRN predniSONE 5 mg tab(s) (DELTASONE) 5 mg ORAL BID PC predniSONE 2.5 mg tab(s) (DELTASONE) 2.5 mg ORAL DAILY wDINNER pantoprazole DR 40 mg tab(s) (PROTONIX) 40 mg ORAL DAILY (6 AM) saliva substitute combo no.9 15 mL (BIOTENE mouthwash) 15 mL MUCOUS MEMBRANE (TOPICAL MOUTH AND THROAT) 5X/DAY benzocaine-menthol 1 Lozenge (CEPACOL) 1 Lozenge MUCOUS MEMBRANE (TOPICAL MOUTH AND THROAT) q 2 H PRN 0.9% NaCl 3-5 mL 3-5 mL INTRAVENOUS q 12 H lactated ringers infusion 100 mL/hr INTRAVENOUS CONTINUOUS morphine 1-2 mg injection 1-2 mg INTRAVENOUS q 4 H PRN guaiFENesin 200 mg oral liquid (ROBITUSSIN) 200 mg ORAL QID Allergies As of Date: 10/08/2017 Allergen Noted Reaction ANSAID [FLURBIPROFEN] 12/22/2010 GI Upset ARTHROTEC 50 [DICLOFENAC-MISOPROS*06/24/2011 GI Upset AUGMENTIN [AMOXICILLIN-POT CLAVUL*08/31/2008 GI Upset DOXYCYCLINE 03/17/2005 GI Upset ERYTHROMYCIN 03/17/2005 GI Upset GRASS POLLEN 02/17/2006 LODINE [ETODOLAC] 03/17/2005 NSAIDS (NON-STEROIDAL ANTI-INFLAM*03/11/2017 Unknown POISON LISA 03/17/2005 VIOXX [ROFECOXIB] 03/17/2005 GI Upset Fully Assessed 10/08/2017 COMPLETE REVIEW OF SYSTEMS: GENERAL: No weight loss, malaise or fevers HEENT: Negative for frequent or significant headaches, No changes in hearing or vision, no nose bleeds or other nasal problems RESPIRATORY: Negative for cough, hemoptysis, wheezing, COPD, dyspnea or shortness of breath CARDIOVASCULAR: no chest pain or palpitations GI: No nausea, vomiting, or diarrhea and denies any abdominal pain MUSCULOSKELETAL: Negative for joint pain or swelling, back pain or muscle pain SKIN: Negative for lesions, rash, and itching HEMATOLOGY/LYMPHOLOGY: Bruising/hematoma of left leg. NEURO: No focal weakness or numbness Objective PHYSICAL EXAM: Physical Exam Performed: GENERAL: Alert, no distress, cooperative SKIN: Skin color, texture, turgor normal. No rashes or lesions. OROPHARYNX: Lips, mucosa, and tongue normal. Teeth and gums normal. Oropharynx normal. LUNGS: Lungs clear to auscultation, Good diaphragmatic excursion CARDIAC: Normal S1 and S2; no rubs, murmurs, or gallops ABDOMEN: bowel sounds active. Abdomen soft. Very mild tenderness in right lower quadrant. EXTREMITIES: Left leg hematoma site bandaged. LYMPH: No cervical or axillary adenopathy BP 113/58 Pulse 87 Temp (Src) 97 (Temporal Artery) Resp 18 Ht 5' 0 (1.52m) Wt 150 lb (68.0kg) SpO2 98% BMI 29.30 kg/(m2). DATA: Diagnostic tests reviewed for today's visit: CT report from outside hospital reviewed Hemoglobin (g/dL) Date Value 08/05/2015 12.4 HGB (g/dL) Date Value 10/09/2017 7.8 Hematocrit (%) Date Value 10/09/2017 25.4 WBC (thou/cmm) Date Value 10/09/2017 15.73 Estimated Creatinine Clearance: 25.7 mL/min (A) (based on SCr of 1.55 mg/dL (H)). Impression/Recommendations 1) Intra-abdominal abscess 2) Sepsis with leukocytosis and prior tachycardia PLAN: 1) Continue meropenem 2) F/u surgical recommendations SIGNATURE: Zhane Mcgovern III, MD PATIENT NAME: Dia Mccullough DATE: October 09, 2017 TIME: 4:02 PM PAGER: [phone] Philip Koenig MD 10/10/2017 7:10 AM Attested Attestation signed by Khai Lira at 10/10/2017 12:36 PM I personally saw and examined the patient. I reviewed the resident's note. I agree with the resident's assessment and plan unless otherwise noted below. We will review imaging with interventional radiology to see if this is amenable to percutaneous or transrectal drainage to progress her forward. Currently looks nontoxic and very comfortable. She does not want to pursue surgery. Emergency General Surgery Progress Note SERVICE DATE: 10/10/2017 SUBJECTIVE: No acute events. Abdominal pain has nearly improved completely. She is having bowel function. She was started on regular diet last night. Tolerating diet DIET REGULAR OBJECTIVE: Vitals: Temp (24hrs), Av.2 ?C (97.2 ?F), Min:36.1 ?C (97 ?F), Max:36.3 ?C (97.3 ?F) BP 93/54 Pulse 89 Temp 36.2 ?C (97.2 ?F) (Temporal Artery) Resp 18 Ht 152.4 cm (5') Wt 68 kg (150 lb) SpO2 99% BMI 29.29 kg/m? O2 Therapy: Room Air IANDO: Date 10/09/17 07 - 10/10/17 0659 10/10/17 07 - 10/11/17 0659 Shift 3212-8470 3802-9835 3550-5244 24 Hour Total 7266-1257 1676-6022 0498-0741 24 Hour Total I N T A K E PO 240 240 480 PO 240 240 480 IV 1000 1000 LR 1000 1000 Shift Total 2766 786 8232 O U T P U T Urine 4 2 6 Urine Not Saved 4 2 6 Shift Total 4 2 6 Weight (kg) 68 68 68 68 68 68 68 68 MEDICATIONS Current Facility-Administered Medications: HYDROcodone 5 mg - acetaminophen 325 mg tablet (NORCO) 1 tablet ORAL q 4 H PRN enoxaparin 70 mg injection (LOVENOX) 1 mg/kg/dose SUBCUTANEOUS DAILY metoprolol tartrate (short acting) 75 mg tab(s) (LOPRESSOR) 75 mg ORAL q 12 H meropenem 1 g in NaCl 0.9% 100 mL MB+ (MERREM) 1 g INTRAVENOUS q 12 H hydroCHLOROthiazide 25 mg tab(s) (HYDRODIURIL, ESIDRIX) 25 mg ORAL DAILY ondansetron orally disintegrating 4 mg tab(s) (ZOFRAN ODT) 4 mg ORAL q 6 H PRN predniSONE 5 mg tab(s) (DELTASONE) 5 mg ORAL BID PC predniSONE 2.5 mg tab(s) (DELTASONE) 2.5 mg ORAL DAILY wDINNER pantoprazole DR 40 mg tab(s) (PROTONIX) 40 mg ORAL DAILY (6 AM) saliva substitute combo no.9 15 mL (BIOTENE mouthwash) 15 mL MUCOUS MEMBRANE (TOPICAL MOUTH AND THROAT) 5X/DAY benzocaine-menthol 1 Lozenge (CEPACOL) 1 Lozenge MUCOUS MEMBRANE (TOPICAL MOUTH AND THROAT) q 2 H PRN 0.9% NaCl 3-5 mL 3-5 mL INTRAVENOUS q 12 H lactated ringers infusion 100 mL/hr INTRAVENOUS CONTINUOUS guaiFENesin 200 mg oral liquid (ROBITUSSIN) 200 mg ORAL QID Labs: Recent Labs 10/10/17 0357 10/09/17 0630 NA 142 138 K 3.3* 3.5 CHLOR 108* 105 CO2 28 24 BUN 34* 32* CREAT 1.63* 1.55* GLUC 97 116* ANION 9 13 CA 7.6* 8.0* MG -- 1.4* P -- 3.6 ALB 1.7* -- AST 5* -- ALT 12 -- ALKPHOS 40* -- TBILI 0.2 -- WBC -- 15.73* HB -- 7.8* HCT -- 25.4* PLT -- 264 Exam: GENERAL: No distress, Alert NEURO: AANDOx3, CN II-XII grossly intact HEENT: normocephalic, atraumatic LUNGS: Unlabored breathing CARDIAC: Regular rate and rhythm as above ABDOMEN: Soft, minimally tender LLQ, non-distended. No rebound or guarding. EXTREMITIES: MONGE, No deformities, No edema SKIN: Skin color, texture, turgor normal, No rashes or lesions ASSESSMENT AND PLAN: Active Hospital Problems Diagnosis Date Noted - Intra-abdominal abscess (HCC) 10/08/2017 - Traumatic hematoma of left lower leg 10/08/2017 - Leg hematoma, left, initial encounter 10/08/2017 - Baltazar disease Chronic - Venous insufficiency (chronic) (peripheral) - CKD (chronic kidney disease) stage 3, GFR 30-59 ml/min 11/28/2014 - Pulmonary emboli (HCC) 01/30/2014 Overview Note: clinically resolved - DVT (deep venous thrombosis) ([facility]) 01/08/2014 Overview Note: recurrent 77 year old female with diverticulitis and presacral fluid/gas collection. - diet as tolerated. Recommend holding diet if having pain. - WBC pending this AM. 15 yesterday. Has been downtrending. - On meropenem per primary. - fluid collection would be difficult to drain per radiology. - if she worsens, she may need to have a drain placed in fluid collection. - She is improving with conservative management. There is no indication for surgical intervention at this time. - she will need to have an outpatient colonoscopy in 6-8 weeks after discharge. SIGNATURE: Philip Koenig MD PATIENT NAME: Dia Mccullough DATE: October 10, 2017 TIME: 7:05 AM Pager: [phone] Jose Maria Mittal MD 10/10/2017 11:50 AM Signed DEPARTMENT OF HOSPITAL MEDICINE PROGRESS NOTE SERVICE DATE: 10/10/2017 SERVICE TIME: 11:27 AM Hospital Medicine/Primary Attending: Jose Maria Mittal MD NIGHT AND WEEKEND COVERAGE: After 7pm please page [phone] CHIEF COMPLAINT: left leg hematoma. SUBJECTIVE: No pain in abdomen. No nausea or vomiting. Eating well. No pain in left leg OBJECTIVE: PHYSICAL EXAM: BP 98/56 Pulse 87 Temp (Src) 97.5 (Temporal Artery) Resp 18 Ht 5' 0 (1.52m) Wt 150 lb (68.0kg) SpO2 100% BMI 29.30 kg/(m2). GENERAL: Alert, no distress, cooperative, SKIN: Skin color, texture, turgor normal. No rashes or lesions. OROPHARYNX: Lips, mucosa, and tongue normal. Teeth and gums normal. Oropharynx normal. LUNGS: Lungs clear to auscultation, Air entry good, Unlabored breathing. CARDIAC: Normal S1 and S2; no rubs, murmurs, or gallops ABDOMEN: Abdomen soft, non-tender, non-distended, BS normal EXTREMITIES: left leg- dressing opened. Large hematoma in left lower leg- no active bleed. No evidence of infection. Foot warm with intact sensation. NEURO: Grossly normal cognition, motor function, and cranial nerves III-XII MEDICATIONS: Current hospital medications: HYDROcodone 5 mg - acetaminophen 325 mg tablet (NORCO) 1 tablet ORAL q 4 H PRN polyethylene glycol 3350 17 g packet (MIRALAX, GLYCOLAX) 17 g ORAL DAILY enoxaparin 70 mg injection (LOVENOX) 1 mg/kg/dose SUBCUTANEOUS DAILY metoprolol tartrate (short acting) 75 mg tab(s) (LOPRESSOR) 75 mg ORAL q 12 H meropenem 1 g in NaCl 0.9% 100 mL MB+ (MERREM) 1 g INTRAVENOUS q 12 H hydroCHLOROthiazide 25 mg tab(s) (HYDRODIURIL, ESIDRIX) 25 mg ORAL DAILY ondansetron orally disintegrating 4 mg tab(s) (ZOFRAN ODT) 4 mg ORAL q 6 H PRN predniSONE 5 mg tab(s) (DELTASONE) 5 mg ORAL BID PC predniSONE 2.5 mg tab(s) (DELTASONE) 2.5 mg ORAL DAILY wDINNER pantoprazole DR 40 mg tab(s) (PROTONIX) 40 mg ORAL DAILY (6 AM) saliva substitute combo no.9 15 mL (BIOTENE mouthwash) 15 mL MUCOUS MEMBRANE (TOPICAL MOUTH AND THROAT) 5X/DAY benzocaine-menthol 1 Lozenge (CEPACOL) 1 Lozenge MUCOUS MEMBRANE (TOPICAL MOUTH AND THROAT) q 2 H PRN 0.9% NaCl 3-5 mL 3-5 mL INTRAVENOUS q 12 H lactated ringers infusion 100 mL/hr INTRAVENOUS CONTINUOUS guaiFENesin 200 mg oral liquid (ROBITUSSIN) 200 mg ORAL QID DATA: Diagnostic tests reviewed for today's visit: CBC, Coags, BMP, Mg, Phos Recent Labs 10/10/17 0830 10/10/17 0357 10/09/17 0630 WBC 8.61 -- 15.73* HB 6.1* -- 7.8* HCT 19.6* -- 25.4* PLT 195 -- 264 NA -- 142 138 K -- 3.3* 3.5 CHLOR -- 108* 105 CO2 -- 28 24 BUN -- 34* 32* CREAT -- 1.63* 1.55* GLUC -- 97 116* CA -- 7.6* 8.0* MG -- -- 1.4* P -- -- 3.6 Liver Function, Amylase, AND Lipase Recent Labs 10/10/17 0357 TPROT 4.3* ALB 1.7* ALT 12 AST 5* ALKPHOS 40* TBILI 0.2 Cardiac Enzymes Heme: Recent Labs 10/09/17 1530 ABSRETIC 0.081 RITO 176.00 FE 14* TIBC 182* Albumin/Creat Ratio (mg/g) Date Value 11/03/2013 3 Assessment/Plan Patient Active Hospital Problem List: Intra-abdominal abscess (HCC) (10/08/2017) DVT (deep venous thrombosis) (HCC) (01/08/2014) Pulmonary emboli (HCC) (01/30/2014) CKD (chronic kidney disease) stage 3, GFR 30-59 ml/min (11/28/2014) Venous insufficiency (chronic) (peripheral) () Curry disease () Traumatic hematoma of left lower leg (10/08/2017) Leg hematoma, left, initial encounter (10/08/2017) ASSESSMENT: 1. Sigmoid diverticulitis with with 5cm pelvic abscess: minimal symptoms. On Abx. Per surgeon who spoke with IR, difficult to drain percutaneously. Plan is to continue abx for now. If worse, drain surgically -transrectal or laparoscopically placed drain (if patient agrees). ? 2. Bowel perforation 08/24/17: she refused surgery at that time and was treated with abx. Survived. ? 3. 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 Used to be on coumadin which was stopped when she developed hematemesis. Since her last PE/PE, was placed on lovenox 1mg/kg BID- dose decreased to 1mg/kg daily. ? 4. Left leg bleeding/ hematoma: probably due to higher dose of lovenox for CKD 3-4 Currently wrapped with dressing and SPIKE. ? 5. Episode of hematemesis 5 weeks ago while on coumadin- managed with vitk. No scope done. ? 6. SVT this am: better with metoprolol. ? 7. Severe Anemia: due to bleed.? CKD and recent conditions contributing. No evidence of iron def. ? 8. Addision's disease: ? 9. CKD3 PLAN: Continue abx. Monitor Transfuse 1 unit of PRBC. Monitor hb Elevate left leg. Discussed with ortho regarding hematoma- mild compression dressing, leg elevation and NO evacuation. VTE Prophylaxis: Patient is already anti-coagulated. Disposition: Home Plan of care discussed with: Patient SIGNATURE: Jose Maria Mittal MD PATIENT NAME: Dia Mccullough DATE: October 10, 2017 TIME: 11:27 AM PAGER/CONTACT #: [phone] Zhane Mcgovern III, MD 10/10/2017 2:52 PM Signed CONSULT PROGRESS NOTE SERVICE DATE: 10/10/2017 SERVICE TIME: 1:30PM CONSULTING SERVICE: INFECTIOUS DISEASE Subjective INTERVAL HPI: F/u presacral abscess Surgery notes reviewed. Per son and RN- plan updated so that now patient will be getting CT in am and reassessing if drain possible. She feels ok. Has some pressure in the abdomen but she thinks that this is because she has to move her bowels No fevers or chills. Current hospital medications: HYDROcodone 5 mg - acetaminophen 325 mg tablet (NORCO) 1 tablet ORAL q 4 H PRN polyethylene glycol 3350 17 g packet (MIRALAX, GLYCOLAX) 17 g ORAL DAILY metoprolol tartrate (short acting) 25 mg tab(s) (LOPRESSOR) 25 mg ORAL q 12 H acetaminophen 650 mg tab(s) (TYLENOL) 650 mg ORAL q 6 H PRN enoxaparin 70 mg injection (LOVENOX) 1 mg/kg/dose SUBCUTANEOUS DAILY meropenem 1 g in NaCl 0.9% 100 mL MB+ (MERREM) 1 g INTRAVENOUS q 12 H ondansetron orally disintegrating 4 mg tab(s) (ZOFRAN ODT) 4 mg ORAL q 6 H PRN predniSONE 5 mg tab(s) (DELTASONE) 5 mg ORAL BID PC predniSONE 2.5 mg tab(s) (DELTASONE) 2.5 mg ORAL DAILY wDINNER pantoprazole DR 40 mg tab(s) (PROTONIX) 40 mg ORAL DAILY (6 AM) saliva substitute combo no.9 15 mL (BIOTENE mouthwash) 15 mL MUCOUS MEMBRANE (TOPICAL MOUTH AND THROAT) 5X/DAY benzocaine-menthol 1 Lozenge (CEPACOL) 1 Lozenge MUCOUS MEMBRANE (TOPICAL MOUTH AND THROAT) q 2 H PRN 0.9% NaCl 3-5 mL 3-5 mL INTRAVENOUS q 12 H lactated ringers infusion 100 mL/hr INTRAVENOUS CONTINUOUS guaiFENesin 200 mg oral liquid (ROBITUSSIN) 200 mg ORAL QID Objective PHYSICAL EXAM: Physical Exam Performed: General: NAD Abdomen: soft, nontender. Bowel sounds active Extremities: Left leg hematoma bandaged. BP 101/57 Pulse 101 Temp (Src) 98.2 (Temporal Artery) Resp 16 Ht 5' 0 (1.52m) Wt 150 lb (68.0kg) SpO2 100% BMI 29.30 kg/(m2). DATA: Diagnostic tests reviewed for today's visit: WBC Date Value Ref Range Status 10/10/2017 8.61 3.98 - 10.04 thou/cmm Final Impression/Recommendations 1) Intra-abdominal abscess- leukocytosis resolved with meropenem. Continue meropenem. Will follow-up tomorrow morning's CT scan- if drain placed then continue meropenem and narrow based on culture. If no drain placed then would change to oral cefdinir plus clindamycin with plan to treat for 2-3 weeks. SIGNATURE: Zhane Mcgovern III, MD PATIENT NAME: Dia Mccullough DATE: October 10, 2017 TIME: 2:48 PM PAGER: [phone] Teetee Mendez RN, RN 10/10/2017 10:04 PM Addendum Monica paged to notify that the patient is requesting something for anxiety. Ativan 0.25 mg ordered once by AMMY Figueroa. AMMY Figueroa of [facility] notified that the patient received half of the dose of meropenem and then refused the other half related to GI upset. Previous Version Kaycee Figueroa APRN.AMMY 10/11/2017 4:00 AM Signed IM [facility] NIGHT TEAM Called by general surgery resident regarding possible per drain in AM after ct complete. She discussed discontinuing lovenox and adding heparin gtt instead overnight. After procedure patient can be placed back on therapeutic lovenox. Discussed change with RN. Kaycee Figueroa ANESTHESIOLOGIST PHYSICIAN [id number] Shauna Pulido MD 10/11/2017 6:43 AM Attested Attestation signed by Khai Lira at 10/11/2017 1:39 PM I personally saw and examined the patient. I reviewed the resident's note. I agree with the resident's assessment and plan unless otherwise noted below. Discussed at length today the utility of again trying to have radiology assess for possible IR drainage as this may help progress her healing along. She did have several reservations but I went over all the details with her and her family member. They do want to proceed with at least repeat imaging and possible drainage today. Emergency General Surgery Progress Note SERVICE DATE: 10/11/2017 SUBJECTIVE: Patient denies abdominal pain, nausea and vomiting. Her main complaint is her LLE. She states that she has a Hematoma and that she cannot walk. She denies fevers, chills, chest pain, and shortness of breath. Tolerating diet DIET NPO OBJECTIVE: Vitals: Temp (24hrs), Av.6 ?C (97.8 ?F), Min:36.1 ?C (97 ?F), Max:36.8 ?C (98.2 ?F) BP 136/75 Pulse 92 Temp 36.8 ?C (98.2 ?F) (Oral) Resp 18 Ht 152.4 cm (5') Wt 70.7 kg (155 lb 13.8 oz) SpO2 99% BMI 30.44 kg/m? O2 Therapy: Room Air IANDO: Date 10/10/17699 - 10/11/17 0610/11/17699 - 10/12/17658 Shift 0010-7491 3090-8754 1328-4844 24 Hour Total 0714-6806 7908-5794 0042-0473 24 Hour Total I N T A K E PO 240 240 PO 240 240 IV 1000 1000 LR 1000 1000 Blood Products 301 301 PRBC Intake (mL) 300 300 Packed Red Blood Cells Number of Units 1 1 Shift Total 301 1240 1541 O U T P U T Urine 1 2 3 Urine Not Saved 1 2 3 # of BMs Number of BMs 2 x 1 x 3 x Shift Total 1 2 3 Weight (kg) 68 68 70.7 70.7 70.7 70.7 70.7 70.7 MEDICATIONS Current Facility-Administered Medications: heparin iv infusion (STANDARD NOMOGRAM) 25,000 units in NaCl 0.45% 250 mL PREMIX 0-3,000 Units/hr INTRAVENOUS CONTINUOUS And heparin RATE CHANGE bolus 1,000-10,000 Units for subtherapeutic aptt results 1,000-10,000 Units INTRAVENOUS PRN heparin nomogram - NO INITIAL BOLUS OTHER ONCE (heparin bolus) HYDROcodone 5 mg - acetaminophen 325 mg tablet (NORCO) 1 tablet ORAL q 4 H PRN polyethylene glycol 3350 17 g packet (MIRALAX, GLYCOLAX) 17 g ORAL DAILY metoprolol tartrate (short acting) 25 mg tab(s) (LOPRESSOR) 25 mg ORAL q 12 H acetaminophen 650 mg tab(s) (TYLENOL) 650 mg ORAL q 6 H PRN meropenem 1 g in NaCl 0.9% 100 mL MB+ (MERREM) 1 g INTRAVENOUS q 12 H ondansetron orally disintegrating 4 mg tab(s) (ZOFRAN ODT) 4 mg ORAL q 6 H PRN predniSONE 5 mg tab(s) (DELTASONE) 5 mg ORAL BID PC predniSONE 2.5 mg tab(s) (DELTASONE) 2.5 mg ORAL DAILY wDINNER pantoprazole DR 40 mg tab(s) (PROTONIX) 40 mg ORAL DAILY (6 AM) saliva substitute combo no.9 15 mL (BIOTENE mouthwash) 15 mL MUCOUS MEMBRANE (TOPICAL MOUTH AND THROAT) 5X/DAY benzocaine-menthol 1 Lozenge (CEPACOL) 1 Lozenge MUCOUS MEMBRANE (TOPICAL MOUTH AND THROAT) q 2 H PRN 0.9% NaCl 3-5 mL 3-5 mL INTRAVENOUS q 12 H lactated ringers infusion 100 mL/hr INTRAVENOUS CONTINUOUS guaiFENesin 200 mg oral liquid (ROBITUSSIN) 200 mg ORAL QID Labs: Recent Labs 10/11/17 0431 10/10/17 0830 10/10/17 0357 10/09/17 0630 NA 142 -- 142 138 K 4.1 -- 3.3* 3.5 CHLOR 109* -- 108* 105 CO2 29 -- 28 24 BUN 20* -- 34* 32* CREAT 0.94 -- 1.63* 1.55* GLUC 90 -- 97 116* ANION 8 -- 9 13 CA 8.0* -- 7.6* 8.0* MG -- -- -- 1.4* P -- -- -- 3.6 ALB -- -- 1.7* -- AST -- -- 5* -- ALT -- -- 12 -- ALKPHOS -- -- 40* -- TBILI -- -- 0.2 -- WBC 7.98 8.18 8.61 -- 15.73* HB 7.4* 7.4* 6.1* -- 7.8* HCT 23.4* 23.4* 19.6* -- 25.4* PLT 207 211 195 -- 264 INR 0.93 -- -- -- Exam: GENERAL: No distress, Alert NEURO: AANDOx3, CN II-XII grossly intact HEENT: normocephalic, atraumatic LUNGS: Unlabored breathing CARDIAC: Regular rate and rhythm as above ABDOMEN: Soft, Non-tendet, non-distended. No rebound or guarding. EXTREMITIES: LLE with chronic venous skin changes wrapped. Motion and sensation intact SKIN: Skin color, texture, turgor normal, No rashes or lesions ASSESSMENT AND PLAN: Active Hospital Problems Diagnosis Date Noted - Intra-abdominal abscess (HCC) 10/08/2017 - Traumatic hematoma of left lower leg 10/08/2017 - Leg hematoma, left, initial encounter 10/08/2017 - Curry disease Chronic - Venous insufficiency (chronic) (peripheral) - CKD (chronic kidney disease) stage 3, GFR 30-59 ml/min 11/28/2014 - Pulmonary emboli (HCC) 01/30/2014 Overview Note: clinically resolved - DVT (deep venous thrombosis) ([facility]) 01/08/2014 Overview Note: recurrent 77 year old female with diverticulitis and presacral fluid/gas collection. - Patient is currently NPO for possible drain placement. - Patient does not think that she wishes to proceed with placement of a drain into the pre-sacral collection. She would like to move forward with a repeat CT scan though so she can make an informed decision. - Leukocytosis improved - On meropenem per ID. Received only half of last dose. Patient requested to stop based on GI upset. - She is improving with conservative management. - she will need to have an outpatient colonoscopy in 6-8 weeks after discharge. Shauna Pulido MD General Surgery PGY-4 October 11, 2017 6:41 AM [facility] #: Pager: [phone] Previous Version Antione Irizarry MD 10/11/2017 11:43 AM Signed CONSULT PROGRESS NOTE SERVICE DATE: 10/11/2017 SERVICE TIME: 8 AM CONSULTING SERVICE: HemOnc Subjective INTERVAL HPI: Patient denies abdominal pain. No dyspnea. Some pain in left leg while standing. On heparin drip Current hospital medications: heparin iv infusion (STANDARD NOMOGRAM) 25,000 units in NaCl 0.45% 250 mL PREMIX 0-3,000 Units/hr INTRAVENOUS CONTINUOUS heparin RATE CHANGE bolus 1,000-10,000 Units for subtherapeutic aptt results 1,000-10,000 Units INTRAVENOUS PRN HYDROcodone 5 mg - acetaminophen 325 mg tablet (NORCO) 1 tablet ORAL q 4 H PRN polyethylene glycol 3350 17 g packet (MIRALAX, GLYCOLAX) 17 g ORAL DAILY metoprolol tartrate (short acting) 25 mg tab(s) (LOPRESSOR) 25 mg ORAL q 12 H acetaminophen 650 mg tab(s) (TYLENOL) 650 mg ORAL q 6 H PRN meropenem 1 g in NaCl 0.9% 100 mL MB+ (MERREM) 1 g INTRAVENOUS q 12 H ondansetron orally disintegrating 4 mg tab(s) (ZOFRAN ODT) 4 mg ORAL q 6 H PRN predniSONE 5 mg tab(s) (DELTASONE) 5 mg ORAL BID PC predniSONE 2.5 mg tab(s) (DELTASONE) 2.5 mg ORAL DAILY wDINNER pantoprazole DR 40 mg tab(s) (PROTONIX) 40 mg ORAL DAILY (6 AM) saliva substitute combo no.9 15 mL (BIOTENE mouthwash) 15 mL MUCOUS MEMBRANE (TOPICAL MOUTH AND THROAT) 5X/DAY benzocaine-menthol 1 Lozenge (CEPACOL) 1 Lozenge MUCOUS MEMBRANE (TOPICAL MOUTH AND THROAT) q 2 H PRN 0.9% NaCl 3-5 mL 3-5 mL INTRAVENOUS q 12 H lactated ringers infusion 100 mL/hr INTRAVENOUS CONTINUOUS guaiFENesin 200 mg oral liquid (ROBITUSSIN) 200 mg ORAL QID Objective PHYSICAL EXAM: Physical Exam Performed: BP 138/63 Pulse 96 Temp (Src) 98.2 (Temporal Artery) Resp 18 Ht 5' 0 (1.52m) Wt 155 lb 13.8 oz (70.7kg) SpO2 99% BMI 30.44 kg/(m2). GENERAL: Alert, no distress, cooperative, SKIN: Scattered bruising. HEENT: Anicteric. LUNGS: Lungs clear to auscultation. Unlabored breathing. CARDIAC: Normal S1 and S2; no rubs, murmurs, or gallops ABDOMEN: Abdomen soft, non-tender, non-distended, BS normal EXTREMITIES: left leg- wrapped in spike. + hematoma. NEURO: No focal deficit. DATA: Diagnostic tests reviewed for today's visit: CBC: Recent Labs 10/11/1743010/10/17 0830 10/09/17 0630 WBC 7.98 8.18 8.61 15.73* HB 7.4* 7.4* 6.1* 7.8* HCT 23.4* 23.4* 19.6* 25.4* PLT 207 211 195 264 MCV 100.0* 99.6* 104.3* 105.4* COAG: Recent Labs 10/11/17430 APTT 23.4 INR 0.93 BMP: Recent Labs 10/11/1743010/10/17 0357 10/09/17 0630 GLUC 90 97 116* NA 142 142 138 K 4.1 3.3* 3.5 CHLOR 109* 108* 105 CO2 29 28 24 ANION 8 9 13 BUN 20* 34* 32* CREAT 0.94 1.63* 1.55* CHEM: Recent Labs 10/11/1743010/10/17 0357 10/09/17 0630 ALB -- 1.7* -- TPROT -- 4.3* -- CA 8.0* 7.6* 8.0* MG -- -- 1.4* Impression/Recommendations 1. Sigmoid diverticulitis with 5cm pelvic abscess: - possible drain placement? Await a repeat CT scan to make further decision. - Continue ABX. ? 2. Bowel perforation 08/24/17:?she refused surgery at that time and was treated with ABX. ? 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 Used to be on coumadin which was stopped when she developed hematemesis in 08/2017. Developed DVT/PE while off Coumadin. Was placed on lovenox 1mg/kg BID- dose decreased to 1mg/kg daily. Now on iv heparin for possible procedure. - Antiphospholipid ab pending. - Once patient is stable, consider switching back to Coumadin. She is followed by PCP. She could not afford NOAC. ? 4. Severe Anemia: likey due to bleed. Stable now. SIGNATURE: Antione Irizarry MD PATIENT NAME: Dia Mccullough DATE: October 11, 2017 TIME: 8 AM PAGER: [phone] Jose Maria Mittal MD 10/11/2017 9:44 AM Addendum DEPARTMENT OF HOSPITAL MEDICINE PROGRESS NOTE SERVICE DATE: 10/11/2017 SERVICE TIME: 9:22 AM Hospital Medicine/Primary Attending: Jose Maria Mittal MD NIGHT AND WEEKEND COVERAGE: After 7pm please page [phone] CHIEF COMPLAINT: left leg hematoma. Intraabdominal abscess. SUBJECTIVE: no abdominal pain. Had 3 soft BM. No nausea. Pain in left leg when standing otherwise none while laying down. OBJECTIVE: PHYSICAL EXAM: BP 138/63 Pulse 96 Temp (Src) 98.2 (Temporal Artery) Resp 18 Ht 5' 0 (1.52m) Wt 155 lb 13.8 oz (70.7kg) SpO2 99% BMI 30.44 kg/(m2). GENERAL: Alert, no distress, cooperative, SKIN: Skin color, texture, turgor normal. No rashes or lesions. OROPHARYNX: Lips, mucosa, and tongue normal. Teeth and gums normal. Oropharynx normal. LUNGS: Lungs clear to auscultation, Air entry good, Unlabored breathing. CARDIAC: Normal S1 and S2; no rubs, murmurs, or gallops ABDOMEN: Abdomen soft, non-tender, non-distended, BS normal EXTREMITIES: left leg- wrapped in spike. Opened and examined yesterday- has large hematoma in lower leg anteriorly. Small tearing of skin over the hematoma- no active bleeding. Today foot warm. DP present. NEURO: Grossly normal cognition, motor function, and cranial nerves III-XII MEDICATIONS: Current hospital medications: heparin iv infusion (STANDARD NOMOGRAM) 25,000 units in NaCl 0.45% 250 mL PREMIX 0-3,000 Units/hr INTRAVENOUS CONTINUOUS heparin RATE CHANGE bolus 1,000-10,000 Units for subtherapeutic aptt results 1,000-10,000 Units INTRAVENOUS PRN HYDROcodone 5 mg - acetaminophen 325 mg tablet (NORCO) 1 tablet ORAL q 4 H PRN polyethylene glycol 3350 17 g packet (MIRALAX, GLYCOLAX) 17 g ORAL DAILY metoprolol tartrate (short acting) 25 mg tab(s) (LOPRESSOR) 25 mg ORAL q 12 H acetaminophen 650 mg tab(s) (TYLENOL) 650 mg ORAL q 6 H PRN meropenem 1 g in NaCl 0.9% 100 mL MB+ (MERREM) 1 g INTRAVENOUS q 12 H ondansetron orally disintegrating 4 mg tab(s) (ZOFRAN ODT) 4 mg ORAL q 6 H PRN predniSONE 5 mg tab(s) (DELTASONE) 5 mg ORAL BID PC predniSONE 2.5 mg tab(s) (DELTASONE) 2.5 mg ORAL DAILY wDINNER pantoprazole DR 40 mg tab(s) (PROTONIX) 40 mg ORAL DAILY (6 AM) saliva substitute combo no.9 15 mL (BIOTENE mouthwash) 15 mL MUCOUS MEMBRANE (TOPICAL MOUTH AND THROAT) 5X/DAY benzocaine-menthol 1 Lozenge (CEPACOL) 1 Lozenge MUCOUS MEMBRANE (TOPICAL MOUTH AND THROAT) q 2 H PRN 0.9% NaCl 3-5 mL 3-5 mL INTRAVENOUS q 12 H lactated ringers infusion 100 mL/hr INTRAVENOUS CONTINUOUS guaiFENesin 200 mg oral liquid (ROBITUSSIN) 200 mg ORAL QID DATA: Diagnostic tests reviewed for today's visit: CBC, Coags, BMP, Mg, Phos Recent Labs 10/11/17 0431 10/10/17 0830 10/10/17 0357 10/09/17 0630 WBC 7.98 8.18 8.61 -- 15.73* HB 7.4* 7.4* 6.1* -- 7.8* HCT 23.4* 23.4* 19.6* -- 25.4* PLT 207 211 195 -- 264 INR 0.93 -- -- -- APTT 23.4 -- -- -- NA 142 -- 142 138 K 4.1 -- 3.3* 3.5 CHLOR 109* -- 108* 105 CO2 29 -- 28 24 BUN 20* -- 34* 32* CREAT 0.94 -- 1.63* 1.55* GLUC 90 -- 97 116* CA 8.0* -- 7.6* 8.0* MG -- -- -- 1.4* P -- -- -- 3.6 Liver Function, Amylase, AND Lipase Recent Labs 10/10/17 0357 TPROT 4.3* ALB 1.7* ALT 12 AST 5* ALKPHOS 40* TBILI 0.2 Cardiac Enzymes Heme: No results for input(s): RETICP, ABSRETIC, LD, RITO, FE, TIBC, TRANSFERSAT in the last 24 hours. Albumin/Creat Ratio (mg/g) Date Value 11/03/2013 3 Assessment/Plan Patient Active Hospital Problem List: Intra-abdominal abscess (HCC) (10/08/2017) DVT (deep venous thrombosis) (HCC) (01/08/2014) Pulmonary emboli (HCC) (01/30/2014) CKD (chronic kidney disease) stage 3, GFR 30-59 ml/min (11/28/2014) Venous insufficiency (chronic) (peripheral) () Curry disease () Traumatic hematoma of left lower leg (10/08/2017) Leg hematoma, left, initial encounter (10/08/2017) ASSESSMENT: 1. Sigmoid diverticulitis with with 5cm pelvic abscess: minimal symptoms. On Abx- meropenem. Per surgeon who spoke with IR, difficult to drain percutaneously. Surgery team has considered to place drain surgically - ?transrectal or laparoscopically placed drain today. But patient is reluctant. I believe plan at this time would be to continue abx for now and follow up with imaging unless she becomes symptomatic- await surgery and ID to round. ? 2. Bowel perforation 08/24/17:?she refused surgery at that time and was treated with abx. Survived. ? 3. 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 Used to be on coumadin which was stopped when she developed hematemesis. Since her last PE/PE few weeks, was placed on lovenox 1mg/kg BID- dose decreased to 1mg/kg daily. Overnight lovenox was switched to iv heparin for possible procedure. Antiphospholipid ab pending. ? 4. Left leg bleeding/ hematoma: probably due to higher dose of lovenox for?CKD 3-4 Currently wrapped with dressing and SPIKE. ? 5. Episode of hematemesis 5 weeks ago while on coumadin-?managed with vitk. No scope done. ? 6. SVT this am: better with metoprolol. ? 7. Severe Anemia: due to bleed.? CKD and recent conditions contributing. No evidence of iron def. ? 8. Addision's disease: ? 9. CKD3 PLAN: Continue abx. Monitor for symptoms- nausea. Await further input from Surgery and ID. May switch back to lovenox if no procedure. Antiphospholipid ab pending- Hem/onc to decide on final anticoagulation treatment (coumadin). Cannot afford NOAC. VTE Prophylaxis: Patient is already anti-coagulated. Disposition: Home Plan of care discussed with: Patient SIGNATURE: Jose Maria Mittal MD PATIENT NAME: Dia Mccullough DATE: October 11, 2017 TIME: 9:22 AM PAGER/CONTACT #: [phone] Previous Version Chaplain Daley Chaplain 10/11/2017 12:05 PM Signed SPIRITUALCARE Spiritual Care Visit- Brief Note Name: Dia Mccullough Date: October 11, 2017 Notes: Per PT has multiple health issues and was scheduled for a test. She looked to be calm, took a prayer and was thankful for the [place] support. [employer] Line Production Supervisor Signature: Chaplain Thuy To contact the Spiritual Care Department: Please call [phone] or Page the On-Call Paint Line Production Supervisor at pager [phone] Thank you for the opportunity to be of service. This is an electronically created document. IF PRINTED, PLEASE DO NOT REMOVE FROM THE CHART OR MODIFY PRINTED COPY. Chaplain Daley Chaplain 10/11/2017 12:06 PM Signed Spiritual Care Record ? Anointing/[place] PATIENT NAME: Dia Mccullough DATE: October 11, 2017 NOTE: Patient was anointed by Fr. [place]land from [facility] on (date): 10/11/17. Signature: Chaplain Thuy Question? Please contact the Spiritual Care Department for assistance. This is an electronically created document. IF PRINTED, PLEASE DO NOT REMOVE FROM THE CHART OR MODIFY PRINTED COPY. Estrella Gómez RN, RN 10/11/2017 1:39 PM Signed [facility] NURSE PROGRESS NOTE SERVICE DATE: 10/11/2017 SERVICE TIME: 12:55 PM REFERRED BY: Solange/Krista GONZALES VISIT WITH: Patient REASON FOR VISIT: Coping issues, Grief and loss, Lonliness, New diagnosis and Serious illness/trauma CONDITION: Surgical INTERVENTIONS: Emotional support, Prayer with patient, Stress booklets and Therapeutic listening TIME SPENT (minutes): 30 Patient receptive to visit. Patient talked freely about her past and present health issues. Patient states that she is just tired of it all and wished she could go home. Offered encouragement and reassurance. Offered some items to help with stress. Had prayer with patient. SIGNATURE: Estrella Gómez RN PATIENT NAME: Dia Mccullough DATE: October 11, 2017 TIME: 1:32 PM Laly Justice RN, RN 10/11/2017 3:18 PM Signed WOUND CARE NURSE CONSULT NOTE SERVICE DATE: 10/11/2017 SERVICE TIME: 1450 REASON FOR VISIT: Wound TIME SPENT (minutes): 30 Documentation from Wound Expert can be found in scanned documents. Patient seen by Carol Neal BUSINESS ADMINISTRATION PROGRAM CHAIR and lacey RN. Left lower leg hematoma with area of congealed blood and distal fluid filled area. Xeroform, dry gauze dressing, and SPIKE wrap daily. Plastic Surgery consulted for hematoma evacuation. Wound care to follow. SIGNATURE: Laly Justice RN PATIENT NAME: Dia Mccullough DATE: October 11, 2017 TIME: 3:13 PM CONTACT#: [id number] Misael Wei MD 10/11/2017 3:38 PM Signed INFECTIOUS DISEASE CONSULT PROGRESS NOTE SERVICE DATE: 10/11/2017 SERVICE TIME: 3:22 PM Subjective INTERVAL HISTORY / PERTINENT Review of Systems Constitutional: Negative for fever. Gastrointestinal: Negative for abdominal pain. Was constipated, given miralax, now having increased stool output but not watery and only 2 so far today. Pt thinks from antibiotic and refused it earlier. Going for repeat CT abd and possible drain placement. Current Facility-Administered Medications: heparin iv infusion (STANDARD NOMOGRAM) 25,000 units in NaCl 0.45% 250 mL PREMIX 0-3,000 Units/hr INTRAVENOUS CONTINUOUS And heparin RATE CHANGE bolus 1,000-10,000 Units for subtherapeutic aptt results 1,000-10,000 Units INTRAVENOUS PRN HYDROcodone 5 mg - acetaminophen 325 mg tablet (NORCO) 1 tablet ORAL q 4 H PRN polyethylene glycol 3350 17 g packet (MIRALAX, GLYCOLAX) 17 g ORAL DAILY metoprolol tartrate (short acting) 25 mg tab(s) (LOPRESSOR) 25 mg ORAL q 12 H acetaminophen 650 mg tab(s) (TYLENOL) 650 mg ORAL q 6 H PRN meropenem 1 g in NaCl 0.9% 100 mL MB+ (MERREM) 1 g INTRAVENOUS q 12 H ondansetron orally disintegrating 4 mg tab(s) (ZOFRAN ODT) 4 mg ORAL q 6 H PRN predniSONE 5 mg tab(s) (DELTASONE) 5 mg ORAL BID PC predniSONE 2.5 mg tab(s) (DELTASONE) 2.5 mg ORAL DAILY wDINNER pantoprazole DR 40 mg tab(s) (PROTONIX) 40 mg ORAL DAILY (6 AM) saliva substitute combo no.9 15 mL (BIOTENE mouthwash) 15 mL MUCOUS MEMBRANE (TOPICAL MOUTH AND THROAT) 5X/DAY benzocaine-menthol 1 Lozenge (CEPACOL) 1 Lozenge MUCOUS MEMBRANE (TOPICAL MOUTH AND THROAT) q 2 H PRN 0.9% NaCl 3-5 mL 3-5 mL INTRAVENOUS q 12 H lactated ringers infusion 100 mL/hr INTRAVENOUS CONTINUOUS guaiFENesin 200 mg oral liquid (ROBITUSSIN) 200 mg ORAL QID Objective PHYSICAL EXAM: Vital Signs: BP 138/63 Pulse 96 Temp 36.8 ?C (98.2 ?F) (Temporal Artery) Resp 18 Ht 152.4 cm (5') Wt 70.7 kg (155 lb 13.8 oz) SpO2 99% BMI 30.44 kg/m? Physical Exam Abdominal: Soft. She exhibits no distension. There is no tenderness. Musculoskeletal: Left leg dressing in place. Reviewed Wound Center photo- has subcu fluid collection, hematoma. Plastics to be consulted. Vitals reviewed. DATA: Diagnostic Tests Reviewed for Today's Visit: Most recent labs Micro: No data Recent Labs 10/11/17 0431 10/10/17 0830 10/10/17 0357 10/09/17 0630 WBC 7.98 8.18 8.61 -- 15.73* HB 7.4* 7.4* 6.1* -- 7.8* HCT 23.4* 23.4* 19.6* -- 25.4* PLT 207 211 195 -- 264 NEUTNUM 6.20* 6.63* -- 14.06* CREAT 0.94 -- 1.63* 1.55* No results found for: VANCORA Impression/Recommendations Principal Problem: Intra-abdominal abscess (HCC) POA: Yes Assessment AND Plan: await repeat ct, possible percutaneous drain. Sepsis- improving Traumatic hematoma of left lower leg POA: Yes Assessment AND Plan: watch for sign of infection. If debrided per Plastics, send culture. Loose stools likely related to miralax, possibly meropenem, but she needs to continue the antibiotic. I have discussed with her. Alternative therapy eg a cephalosporin would require addition of anaerobic coverage, since she is allergic to flagyl would need to give clindamycin or tigecycline, each of which have their own issues. Resolved Problems: * No resolved hospital problems. * SIGNATURE: Misael Wei MD PATIENT NAME: Dia Mccullough DATE: October 11, 2017 TIME: 3:22 PM PAGER/CONTACT #: [phone] Phong Rush MD 10/11/2017 3:56 PM Signed UPDATED HISTORY AND PHYSICAL EXAMINATION Date: 10/11/17 Name: Dia Mccullough PHYSICAL EXAM MUST BE COMPLETED ON ADMISSION The History and Physical (completed in the past 30 days) has been reviewed and the patient has been examined. The contents accurately reflect the patient's condition with the following additions or revisions since the HANDP was completed. Examination indicates no changes. This HANDP can be found in the Electronic Medical Record dated 10/08/2017 @ 11:51 PM. Phong Rush MD 10/11/2017 4:31 PM Signed INTERVENTIONAL RADIOLOGY POST PROCEDURE NOTE DATE: 10/11/17 NAME: Dia Mccullough LOG ID: [id number] Pre-Procedure Diagnosis: Pelvic abscess Cooker Meal: Surgeon(s) and Role: * Phong Rush - Primary Procedure: CT guided placement of abscess drainage catheter Anesthesia: Moderate sedation Findings: ~ 25 cc pus. 8 Fr 35 cm Skater APDL drain placed. Estimated Blood Loss: 0 ml Specimen: To microbiology Complications: None Post-Op/Post-Procedure Diagnosis: Pelvic abscess Plan: CT scan of pelvis and abscessogram in one week. Antione Irizarry MD 10/12/2017 8:33 AM Signed CONSULT PROGRESS NOTE SERVICE DATE: 10/12/2017 SERVICE TIME: 8 AM CONSULTING SERVICE: HemOnc Subjective INTERVAL HPI: CT guided placement of abscess drainage catheter on 10/11/17. Patient denies abdominal pain. No dyspnea. Some pain in left leg while standing. On Lovenox. Current hospital medications: acetaminophen 650 mg tab(s) (TYLENOL) 650 mg ORAL q 4 H PRN iv contrast (radiology procedure) INTRAVENOUS DIRECTED PRN enteric contrast (radiology procedure) ORAL DIRECTED PRN enoxaparin 70 mg injection (LOVENOX) 1 mg/kg/dose SUBCUTANEOUS q 24 HR HYDROcodone 5 mg - acetaminophen 325 mg tablet (NORCO) 1 tablet ORAL q 4 H PRN polyethylene glycol 3350 17 g packet (MIRALAX, GLYCOLAX) 17 g ORAL DAILY metoprolol tartrate (short acting) 25 mg tab(s) (LOPRESSOR) 25 mg ORAL q 12 H acetaminophen 650 mg tab(s) (TYLENOL) 650 mg ORAL q 6 H PRN meropenem 1 g in NaCl 0.9% 100 mL MB+ (MERREM) 1 g INTRAVENOUS q 12 H ondansetron orally disintegrating 4 mg tab(s) (ZOFRAN ODT) 4 mg ORAL q 6 H PRN predniSONE 5 mg tab(s) (DELTASONE) 5 mg ORAL BID PC predniSONE 2.5 mg tab(s) (DELTASONE) 2.5 mg ORAL DAILY wDINNER pantoprazole DR 40 mg tab(s) (PROTONIX) 40 mg ORAL DAILY (6 AM) saliva substitute combo no.9 15 mL (BIOTENE mouthwash) 15 mL MUCOUS MEMBRANE (TOPICAL MOUTH AND THROAT) 5X/DAY benzocaine-menthol 1 Lozenge (CEPACOL) 1 Lozenge MUCOUS MEMBRANE (TOPICAL MOUTH AND THROAT) q 2 H PRN 0.9% NaCl 3-5 mL 3-5 mL INTRAVENOUS q 12 H lactated ringers infusion 100 mL/hr INTRAVENOUS CONTINUOUS guaiFENesin 200 mg oral liquid (ROBITUSSIN) 200 mg ORAL QID Objective PHYSICAL EXAM: Physical Exam Performed: BP 150/77 Pulse 89 Temp (Src) 99 (Oral) Resp 18 Ht 5' 0 (1.52m) Wt 155 lb 13.8 oz (70.7kg) SpO2 99% BMI 30.44 kg/(m2). GENERAL: Alert, no distress, cooperative, SKIN: Scattered bruising. HEENT: Anicteric. LUNGS: Lungs clear to auscultation. Unlabored breathing. CARDIAC: Normal S1 and S2; no rubs, murmurs, or gallops ABDOMEN: Abdomen soft, non-tender, non-distended, BS normal EXTREMITIES: left leg- wrapped in spike. + hematoma. NEURO: No focal deficit. DATA: Diagnostic tests reviewed for today's visit: CBC: Recent Labs 10/12/17 0635 10/11/17 0431 10/10/17 0830 10/09/17 0630 WBC 7.81 8.18 7.98 8.61 15.73* HB 7.4* 7.4* 7.4* 6.1* 7.8* HCT 24.3* 23.4* 23.4* 19.6* 25.4* PLT 224 211 207 195 264 MCV 102.5* 99.6* 100.0* 104.3* 105.4* COAG: Recent Labs 10/11/17 1235 10/11/17 0431 APTT 73.5* 23.4 INR -- 0.93 BMP: Recent Labs 10/11/17 0431 10/10/17 0357 10/09/17 0630 GLUC 90 97 116* NA 142 142 138 K 4.1 3.3* 3.5 CHLOR 109* 108* 105 CO2 29 28 24 ANION 8 9 13 BUN 20* 34* 32* CREAT 0.94 1.63* 1.55* CHEM: Recent Labs 10/11/17 0431 10/10/17 0357 10/09/17 0630 ALB -- 1.7* -- TPROT -- 4.3* -- CA 8.0* 7.6* 8.0* MG -- -- 1.4* Impression/Recommendations 1. Sigmoid diverticulitis with 5cm pelvic abscess: - s/p CT guided placement of abscess drainage catheter on 10/11/17 - Continue ABX. ? 2. Bowel perforation 08/24/17:?she refused surgery at that time and was treated with ABX. ? 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 Used to be on coumadin which was stopped when she developed hematemesis in 08/2017. Developed DVT/PE while off Coumadin. Was placed on lovenox 1mg/kg BID- dose decreased to 1mg/kg daily due to hematoma. - Antiphospholipid ab pending. - Once patient is stable, consider switching back to Coumadin. She is followed by PCP for INR monitoring. She could not afford NOAC. ? 4. Severe Anemia: likey secondary to bleed and myelosuppression from antibiotics. Stable now. SIGNATURE: Antione Irizarry MD PATIENT NAME: Dia Mccullough DATE: October 12, 2017 TIME: 8 AM PAGER: [phone] Shauna Pulido MD 10/12/2017 9:21 AM Attested Attestation signed by Khai Lira at 10/12/2017 1:22 PM I personally saw and examined the patient. I reviewed the resident's note. I agree with the resident's assessment and plan unless otherwise noted below. Emergency General Surgery Progress Note SERVICE DATE: 10/12/2017 SUBJECTIVE: Drain placed into pre-sacral fluid collection by IR yesterday. Patient complains of some tenderness at the drain entry site. Denies intra-abdominal pain. +BM. Denies nausea and vomiting. Tolerating diet DIET REGULAR OBJECTIVE: Vitals: Temp (24hrs), Av.8 ?C (98.2 ?F), Min:36.2 ?C (97.2 ?F), Max:37.2 ?C (99 ?F) BP 150/77 Pulse 89 Temp 37.2 ?C (99 ?F) (Oral) Resp 18 Ht 152.4 cm (5') Wt 70.7 kg (155 lb 13.8 oz) SpO2 99% BMI 30.44 kg/m? O2 Therapy: Room Air IANDO: Date 10/11/17699 - 10/12/1765810/12/17699 - 10/13/17 0659 Shift 7003-8065 3970-4229 3525-6936 24 Hour Total 3116-4077 4820-4817 5310-3096 24 Hour Total I N T A K E PO 360 120 480 PO 360 120 480 IV 1100 1100 1000 1000 LR 1000 1000 1000 1000 Meropenem (Merrem) 100 100 Irrigants 5 5 Irrigant/Flush Amount In (Drain/Tube 10/11/17 Toby Sherwood Left Lower Quadrant Abdomen Drain #1) 5 5 Shift Total 6179 029 9561 1000 1000 O U T P U T Urine 2 3 5 Urine Not Saved 2 3 5 Tubes 14 12.5 26.5 Drain/Tube Output (Drain/Tube 10/11/17 Toby Sherwood Left Lower Quadrant Abdomen Drain #1) 14 12.5 26.5 # of BMs Number of BMs 1 x 1 x Shift Total 16 15.5 31.5 Weight (kg) 70.7 70.7 70.7 70.7 70.7 70.7 70.7 70.7 MEDICATIONS Current Facility-Administered Medications: acetaminophen 650 mg tab(s) (TYLENOL) 650 mg ORAL q 4 H PRN iv contrast (radiology procedure) INTRAVENOUS DIRECTED PRN enteric contrast (radiology procedure) ORAL DIRECTED PRN enoxaparin 70 mg injection (LOVENOX) 1 mg/kg/dose SUBCUTANEOUS q 24 HR HYDROcodone 5 mg - acetaminophen 325 mg tablet (NORCO) 1 tablet ORAL q 4 H PRN polyethylene glycol 3350 17 g packet (MIRALAX, GLYCOLAX) 17 g ORAL DAILY metoprolol tartrate (short acting) 25 mg tab(s) (LOPRESSOR) 25 mg ORAL q 12 H acetaminophen 650 mg tab(s) (TYLENOL) 650 mg ORAL q 6 H PRN meropenem 1 g in NaCl 0.9% 100 mL MB+ (MERREM) 1 g INTRAVENOUS q 12 H ondansetron orally disintegrating 4 mg tab(s) (ZOFRAN ODT) 4 mg ORAL q 6 H PRN predniSONE 5 mg tab(s) (DELTASONE) 5 mg ORAL BID PC predniSONE 2.5 mg tab(s) (DELTASONE) 2.5 mg ORAL DAILY wDINNER pantoprazole DR 40 mg tab(s) (PROTONIX) 40 mg ORAL DAILY (6 AM) saliva substitute combo no.9 15 mL (BIOTENE mouthwash) 15 mL MUCOUS MEMBRANE (TOPICAL MOUTH AND THROAT) 5X/DAY benzocaine-menthol 1 Lozenge (CEPACOL) 1 Lozenge MUCOUS MEMBRANE (TOPICAL MOUTH AND THROAT) q 2 H PRN 0.9% NaCl 3-5 mL 3-5 mL INTRAVENOUS q 12 H lactated ringers infusion 100 mL/hr INTRAVENOUS CONTINUOUS guaiFENesin 200 mg oral liquid (ROBITUSSIN) 200 mg ORAL QID Labs: Recent Labs 10/12/17 0635 10/11/17 0431 10/10/17 0357 NA -- 142 -- 142 K -- 4.1 -- 3.3* CHLOR -- 109* -- 108* CO2 -- 29 -- 28 BUN -- 20* -- 34* CREAT -- 0.94 -- 1.63* GLUC -- 90 -- 97 ANION -- 8 -- 9 CA -- 8.0* -- 7.6* ALB -- -- -- 1.7* AST -- -- -- 5* ALT -- -- -- 12 ALKPHOS -- -- -- 40* TBILI -- -- -- 0.2 WBC 7.81 8.18 7.98 < > -- HB 7.4* 7.4* 7.4* < > -- HCT 24.3* 23.4* 23.4* < > -- PLT 224 211 207 < > -- INR -- 0.93 -- -- < > = values in this interval not displayed. Exam: GENERAL: No distress, Alert NEURO: AANDOx3, CN II-XII grossly intact HEENT: normocephalic, atraumatic LUNGS: Unlabored breathing CARDIAC: Regular rate and rhythm as above ABDOMEN: Soft, Non-tendet, non-distended. No rebound or guarding. TTP at LLQ drain site. EXTREMITIES: LLE with chronic venous skin changes wrapped. Motion and sensation intact SKIN: Skin color, texture, turgor normal, No rashes or lesions ASSESSMENT AND PLAN: Active Hospital Problems Diagnosis Date Noted - Intra-abdominal abscess (HCC) 10/08/2017 - Traumatic hematoma of left lower leg 10/08/2017 - Leg hematoma, left, initial encounter 10/08/2017 - Curry disease Chronic - Venous insufficiency (chronic) (peripheral) - CKD (chronic kidney disease) stage 3, GFR 30-59 ml/min 11/28/2014 - Pulmonary emboli (HCC) 01/30/2014 Overview Note: clinically resolved - DVT (deep venous thrombosis) ([facility]) 01/08/2014 Overview Note: recurrent 77 year old female with diverticulitis and presacral fluid/gas collection. -Regular diet - Continue ADRIÁN drain - Abx per ID - IR plans CT pelvis with abscessogram in 1 week. - Therapeutic lovenox per hematology - she will need to have an outpatient colonoscopy in 6-8 weeks after discharge. Shauna Pulido MD General Surgery PGY-4 October 12, 2017 9:21 AM [facility] #: Pager: [phone] Joan Masters, RN, RN 10/12/2017 10:02 AM Signed CARE MANAGEMENT: ASSESSMENT AND DISCHARGE PLAN SERVICE DATE: 10/12/2017 SERVICE TIME: 0956 PRIMARY CARE PHYSICIAN: Mallorie Wheeler MD ADMISSION STATUS: Inpatient Needs Prior to Discharge: Wound Care;Home Care Order;OT/PT Evaluation MEDICAL: Patient/Charrer Stated Goals: To improve my functional status Health Insurance: [employer] MEDICARE PPO A[employer]na Medicare Health Issues Impacting Discharge Plan: None Last Admission Date: Previous admit date: 08/24/2017 Is this Within the Past 30 days? No Advance Directive: Health Literacy: 1. How often do you need to have someone help you when you read instructions, pamphlets, or other written material from your doctor or pharmacy? Never - 1 2. How confident are you filling out medical forms by yourself? Extremely - 1 If Patient scores > 3 on either question, the following interventions were put into place: Patient did not score > 3 FUNCTIONAL AND COGNITIVE/BEHAVIORAL PRIOR TO ADMISSION: Baseline Mental Status: Alert AND Oriented, Person, Place , Time and Situation Functional Status: Independent Does Patient Currently Receive Any Community Services or Home Care? None Equipment Prior to Admission: Walker Wheelchair Has the Patient Been in a Correction Facility in the Past 30 days? No SOCIAL: Living Arrangement: Home Lives With: Alone Financial Resources: Retired Primary Contact: Extended Emergency Contact Information Primary Emergency Contact: Luis Mccullough Hi Relation: Son Supportive: Yes Other Important Patient Contacts: None Caregiver Assessment: Caregiver is ready, willing and able to meet the patient's needs as recommended by the inter-professional team? Yes Patient's transition needs and plan for meeting these needs: Family available to help as needed. Does the patient have an acute stroke diagnosis, or has the patient had a stroke during this admission? No Medication Adherence: I am convinced of the importance of my prescription medication: Agree completely - 0 I worry that my prescription medication will do more harm than good to me Disagree completely - 0 I feel financially burdened by my [id number] expenses for my prescription medication: Disagree mostly -0 Patient is categorized as low risk < 2 Are you interested in bedside delivery of your medications? Yes Food Concerns: In the Last Month, Have You had Trouble Getting Food? No trouble getting food During the Last Month, Have You Worried Whether Your Food Would Run Out Before You Had Enough Money to Buy More? No Is the Patient Psychosocially Complex? No ASSESSMENT AND PLAN: Medical Needs: Fall risk or frequent falls and Wound Care - active or potential Psychosocial Needs: None FREEDOM OF CHOICE EXPLAINED: Yes HHC POTENTIAL TRANSITION PLANS Home Home [facility]dc OT/PT Chart reviewed, spoke with RN. Spoke with pt at bedside who reports she is from a single story home alone, but has family support. Would like [facility] for wound care and would be agreeable to home PT/OT if needed. Await PT/OT eval (ordered) for further planning. SIGNATURE: Joan Masters RN PATIENT NAME: Dia Mccullough DATE: October 12, 2017 TIME: 9:56 AM PAGER/CONTACT #: [phone] Lacy Valdez MD 10/12/2017 8:12 PM Signed Plastic Surgery Consult Note: HPI: 77 y/o F who was admitted 10/11/17 for abdominal abscess/phlegmon found on CT at OSH. Patient has a complicated hospital course after being diagnosed with diverticulitis approx 4-5 weeks ago. She had spent some time in Hospice facility after declining operative intervention. She also has a history of DVT/PE with history of oral anticoagulation use. This was stopped and then subsequently restarted after a diagnosis of a new DVT of her lower extremities recently. Patient states that a couple of days ago she noticed bleeding and oozing from her LLE. She doesn't recall injuring it. It did begin draining and since then the pain has significantly reduced. Plastic surgery was evaluated for possible debridement of a LLE hematoma. 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 - Inflammatory polyarthropathy - Normocytic anemia - PE (pulmonary thromboembolism) (HCC) 01/05/14 Bilat, extensive - Pulmonary embolism without acute cor pulmonale - Pure hypercholesterolemia - Sicca syndrome - Unspecified essential hypertension - Unspecified gastritis and gastroduodenitis without mention of hemorrhage - Urinary tract infection, site not specified - Venous insufficiency (chronic) (peripheral) - Vitamin D deficiency PAST SURGICAL HISTORY Procedure Laterality Date - CATARACT EXTRACTION HX Right - PARTIAL HIP REPLACEMENT Right 04/2013 - PAST SURGICAL HISTORY OF hernia repair - PAST SURGICAL HISTORY OF 11/2012 L3-L4 laminectomy and fusion - PAST SURGICAL HISTORY OF 11/2012 Back fusion surgery - TOTAL HIP REPLACEMENT 05/10/2013 right hip replacement - VENOUS DUPLEX BOTH LOWER EXTREMITIES 05/12/2016 No current facility-administered medications on file prior to encounter. Current Outpatient Prescriptions on File Prior to Encounter: predniSONE (DELTASONE) 5 mg tablet Take 5 mg by mouth twice daily. ondansetron orally disintegrating (ZOFRAN ODT) 4 mg disintegrating tablet Take 1 tablet by mouth every 6 hours as needed for Nausea/Vomiting. hydrochlorothiazide (HYDRODIURIL, ESIDRIX) 25 mg tablet Take 1 tablet by mouth once daily. 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 [OTHER] Other PE: 10/12/17 0346 10/12/17 0755 10/12/17 1602 10/12/17 1943 BP: 160/87 150/77 140/66 147/74 Pulse: 98 89 102 107 Resp: Temp: 36.2 ?C (97.2 ?F) 37.2 ?C (99 ?F) 37 ?C (98.6 ?F) 36.7 ?C (98.1 ?F) TempSrc: Temporal Artery Oral Oral Oral SpO2: 99% 99% 100% 99% Weight: Height: Gen: Awake, alert, coherent. Lower extremities: Bilateral edema with signs of chronic venous insufficiency. LLE: ~15X20 cm area of hemorrhagic blister-partially open with extruding clot over pretibial area. No active bleeding. Surrounding skin with ecchymosis extending up midshaft and down through dorsum and plantar aspect of heel. Signs of chronic venous insufficiency and swelling. No signs of infection or erythema. A/P: 77 y/o F with LLE hematoma on anticoagulation -We discussed the options of both surgical and nonsurgical intervention for this wound. Patient has a large LLE hematoma that would possibly benefit from debridement in the OR. She would likely be left with a large LE wound/defect that would require wound care and possible skin grafting in the future. This would require holding her anticoagulation for the perioperative period. She also has poor donor site availability given her thin skin and steroid use. The benefit of debridement would be evacuation of clot, faster clot resorption, and excision of necrotic skin that could potentially be a nidus for infection. -At this time patient would like to proceed with nonsurgical treatment. She feels that debridement in the OR with plans for skin grafting in the future would still leave her with an open wound and a new donor site wound. Nonsurgical care would involve continued local wound care with planned follow up with the wound care center in [place] for close follow up. She understands this will likely take months to heal and she does run the risk of developing an infection of this leg. -Discussed with Dr. Casey. MD Misael Mireles MD 10/12/2017 1:50 PM Signed INFECTIOUS DISEASE CONSULT PROGRESS NOTE SERVICE DATE: 10/12/2017 SERVICE TIME: 1:46 PM Subjective INTERVAL HISTORY / PERTINENT Review of Systems Constitutional: Negative for fever (emp 37.2). Gastrointestinal: Positive for abdominal pain (after drain placed). Pt taking and tolerating meropenem. Current Facility-Administered Medications: acetaminophen 650 mg tab(s) (TYLENOL) 650 mg ORAL q 4 H PRN iv contrast (radiology procedure) INTRAVENOUS DIRECTED PRN enteric contrast (radiology procedure) ORAL DIRECTED PRN enoxaparin 70 mg injection (LOVENOX) 1 mg/kg/dose SUBCUTANEOUS q 24 HR HYDROcodone 5 mg - acetaminophen 325 mg tablet (NORCO) 1 tablet ORAL q 4 H PRN polyethylene glycol 3350 17 g packet (MIRALAX, GLYCOLAX) 17 g ORAL DAILY metoprolol tartrate (short acting) 25 mg tab(s) (LOPRESSOR) 25 mg ORAL q 12 H acetaminophen 650 mg tab(s) (TYLENOL) 650 mg ORAL q 6 H PRN meropenem 1 g in NaCl 0.9% 100 mL MB+ (MERREM) 1 g INTRAVENOUS q 12 H ondansetron orally disintegrating 4 mg tab(s) (ZOFRAN ODT) 4 mg ORAL q 6 H PRN predniSONE 5 mg tab(s) (DELTASONE) 5 mg ORAL BID PC predniSONE 2.5 mg tab(s) (DELTASONE) 2.5 mg ORAL DAILY wDINNER pantoprazole DR 40 mg tab(s) (PROTONIX) 40 mg ORAL DAILY (6 AM) saliva substitute combo no.9 15 mL (BIOTENE mouthwash) 15 mL MUCOUS MEMBRANE (TOPICAL MOUTH AND THROAT) 5X/DAY benzocaine-menthol 1 Lozenge (CEPACOL) 1 Lozenge MUCOUS MEMBRANE (TOPICAL MOUTH AND THROAT) q 2 H PRN 0.9% NaCl 3-5 mL 3-5 mL INTRAVENOUS q 12 H lactated ringers infusion 100 mL/hr INTRAVENOUS CONTINUOUS guaiFENesin 200 mg oral liquid (ROBITUSSIN) 200 mg ORAL QID Objective PHYSICAL EXAM: Vital Signs: BP 150/77 Pulse 89 Temp 37.2 ?C (99 ?F) (Oral) Resp 18 Ht 152.4 cm (5') Wt 70.7 kg (155 lb 13.8 oz) SpO2 99% BMI 30.44 kg/m? Physical Exam Abdominal: Soft. There is tenderness (around site of drain). Bloody purulent fluid in drain. Vitals reviewed. DATA: Diagnostic Tests Reviewed for Today's Visit: Most recent labs and imaging results. Micro: Abscess fluid cult pending, has GPC and GNB on gm stain Recent Labs 10/12/17 0635 10/11/17 0431 10/10/17 0830 10/10/17 0357 WBC 7.81 8.18 7.98 8.61 -- HB 7.4* 7.4* 7.4* 6.1* -- HCT 24.3* 23.4* 23.4* 19.6* -- PLT 224 211 207 195 -- NEUTNUM 5.87 6.20* 6.63* -- CREAT -- 0.94 -- 1.63* No results found for: VANCORA Impression/Recommendations Principal Problem: Intra-abdominal abscess (HCC) POA: Yes Assessment AND Plan: continue iv meropenem, await culture. CKD (chronic kidney disease) stage 3, GFR 30-59 ml/min POA: Yes Assessment AND Plan: Resolved Problems: * No resolved hospital problems. * SIGNATURE: Misael Wei MD PATIENT NAME: Dia Mccullough DATE: October 12, 2017 TIME: 1:46 PM PAGER/CONTACT #: [phone] [place] OTR/Marina 10/12/2017 2:52 PM Signed Occupational Therapy Evaluation SERVICE DATE: 10/12/2017 SERVICE TIME: 1336 to 1406 ROOM: [id number] Recommended Discharge Disposition: Subacute/SNF Recommended Discharge Disposition Comments: Pt is limited with her mobility and ADL participation due to the L LE hematoma and abdominal pain from her abdominal abcess/drain placement. Pt has been to [facility] in the past and had a very good experince Justification For Post Acute Needs: Anticipate that patient will require daily (5x/wk) skilled therapy in a post-acute facility setting at the time of acute hospital discharge;Medically complex;Motivated;Willing to participate;Living the community premorbidly OT Recommendations to Nursing: With assist of 2 people;Transfer to Chair;ADL?s in chair;OOB for meals;Bedside Commode for Toileting Equipment: Wheeled Walker OT 6 Clicks Score: 14 Precautions/Activity Restrictions: Fall Risk Isolation Type: None ASSESSMENT: OT Evaluation Moderate Complexity: Occupational Profile - Extended review of patient's medical record completed including patient's physical, cognitive, and psycho-social history (please see current hospital course of evaluation). Occupational Performance - Pt presents with deficits in feeding, grooming, UE bathing/dressing, LE bathing/dressing, functional transfers, functional mobility, decreased safety awareness, decreased insight into deficits Complexity in Clinical Decision Making - The extent of clinical reasoning was moderate, several treatment options present for the patient, need for modification during the evaluation was minimal/moderate, comorbidities affecting occupational performance: Curry's, CKD, DVT/PE, fibromyalgia, HTN, R hip endo 2013 back sx Patient Disposition at Start of Session: Supine in Bed Patient Disposition at End of Session: OOB in Chair;Call Suggs in Reach Tolerance Limited By Pain (throbbing with L LE down) Occupational Therapy Problem List: Education Deficit;Safety Deficits;Impaired Self Care;Decreased Activity Tolerance;Decreased Strength;Functional Mobility Impairment;Balance Impaired Patient /Caregiver Goals: Go To Rehab Goals for Plan of Care: Grooming with: Minimal Assistance Upper Body Bathing with: Minimal Assistance Upper Body Dressing with: Minimal Assistance Lower Body Bathing with: Moderate Assistance Lower Body Dressing with: Moderate Assistance Toilet Hygiene with: Minimal Assistance Toilet Transfer with: Minimal Assistance (BSC) Tolerate (minutes of functional activity): 25 Functional Activity with: Minimal Assistance Additional Goal 1: Pt to demo static stand ADL for at least 4 min A Additional Goal 2: Pt to demo good safety with OOB ADLs Transfer: bed mobility with min A Rehab Potential: Good PLAN: Treatment Frequency (times per week): 3 (1-3) Current admission Treatment Interventions: Education;Self Care / Home Management;Functional Mobility Training;Strengthening Plan of Care developed with: Patient TREATMENT INTERVENTIONS: Therapy Diagnosis: Reduced mobility-other;Decreased activities of daily living (ADL);Muscle Weakness (generalized);Unsteadiness on feet Interventions Provided: Evaluation;Self Fdc Management (25090) $ Evaluation-Moderate (75448) Billed Units: 1 unit Self Fdc Management (92031) Treatment Minutes: 14 1 unit Skilled Intervention(s): Facilitated edge of bed ADLs of oral and facial hygiene at edge of bed with L LE propped up to increase ADL participation, increase activity tolerance in unsupported sitting. Provided assistance, cues, fall guarding assist, sequencing to safely complete ADLs. Facilitated safe transfer to chair using wheeled walker and pivoting on R LE/hopping on R LE. Elevated L LE with pillows/blankets due to pain/increased throbbing after movement. Edu pt and communicated on whiteboard mobility level 2 with 2 assist. Left wheeled walker in room due to floor not having any walkers available. Total Timed Code Treatment Minutes: 14 Total Treatment Time (minutes): 30 FUNCTIONAL G CODE: OT 6 Clicks Score: 14 (10/12/171335) Self Care Current Status (G8987): CK (10/12/171335) Self Care Goal Status (G8988): CJ (10/12/171335) Based on clinical assessment and the score on the 6 Clicks Functional Assessment Tool, the G code and corresponding severity modifiers are documented above. SUBJECTIVE: Current Hospital Course: Chart reviewed; This is a 77 year old female who has a complicated recent medical history starting August 24 when she was diagnosed with diverticular abscess/perforation and septic shock. She was brought here for surgical eval from [place], but declined operative intervention and requested to go home with hospice on PO antibiotics. She took 2 weeks of antibiotics, had stabilization and improvement of her symptoms, but subsequently developed hematemesis due to anticoagulation and presumed PUD. She was admitted to inpatient hospice residence, but with stopping her anticoagulation, hematemesis stopped and she was discharged from inpatient hospice. She then had new DVT and PE developing off anticoagulation and was re-hospitalized, with initiation of Lovenox at full dose. She spent some time in the transitional care unit and was sent home 1 week ago on Lovenox. Yesterday she noted an area on her left foot/pretibial area of bruise/oozing blood, but it worsened and progressed to cover much of the pretibial area with more bleeding, and she went to the [place] ED this morning. She was discharged back home after wound evaluation and no finding of circulatory compromise. Her son then brought her back to the ED with a concern over abdominal pain and insistent on hospitalization per [place] ED notes. Eval included CT abdomen which showed a 5 cm abscess/phlegmon in the same area as the original perforation, and she was recommended to be transferred to have IR evaluation of percutaneous drainage. 10/11 Procedure: CT guided placement of abscess drainage catheter 77 year old female with diverticulitis and presacral fluid/gas collection. 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 Hansen - Inflammatory polyarthropathy - Normocytic anemia - PE (pulmonary thromboembolism) ([facility]) 01/05/14 Bilat, extensive - Pulmonary embolism without acute cor pulmonale - Pure hypercholesterolemia - Sicca syndrome - Unspecified essential hypertension - Unspecified gastritis and gastroduodenitis without mention of hemorrhage - Urinary tract infection, site not specified - Venous insufficiency (chronic) (peripheral) - Vitamin D deficiency PAST SURGICAL HISTORY Procedure Laterality Date - CATARACT EXTRACTION HX Right - PARTIAL HIP REPLACEMENT Right 04/2013 - PAST SURGICAL HISTORY OF hernia repair - PAST SURGICAL HISTORY OF 11/2012 L3-L4 laminectomy and fusion - PAST SURGICAL HISTORY OF 11/2012 Back fusion surgery - TOTAL HIP REPLACEMENT 05/10/2013 right hip replacement - VENOUS DUPLEX BOTH LOWER EXTREMITIES 05/12/2016 Reason for Occupational Therapy Consult: Post acute placement Relevant Past Medical History: Curry's, CKD, DVT/PE, fibromyalgia, HTN, R hip endo 2013 back sx, Patient Report: Pt in room cooperative and asking to get out of bed. Pain: 8/10 L LE after movement Home Environment Patient Lives With: Self/Alone Assistance Available: time study statistician (Dtr nearby) Entry To Home: No Stairs Tub/Shower Type: walk in shower with seat Laundry: on main floor Equipment Owned: Grab Bars-Shower;Wheeled Walker;Cane;Shower Chair (transport W/C?) Prior Functional Level: Required Assistance Assistance Required With: Laundry;Cleaning;Shopping;Transportation (Dtr assists with IADLs since return home for about 1 week) Prior Functional Level Comments: Pt was at hospice, get better, went to rehab and has been at home for a week. Now developed L LE hematoma. OBJECTIVE: Responsiveness: Alert;Awake Follows Commands: 2-step Commands Memory Deficits: Short Term (3/3 recall) Executive Function Deficits: Judgement;Safety Awareness Safety Awareness Deficit: Minimal impairment Judgement Deficit: Minimal impairment CURRENT FUNCTIONAL STATUS: Current Activities of Daily Living Assist Level Feeding Set Up Grooming Moderate Assistance Bathing Upper Body Moderate Assistance Bathing Lower Body Maximal Assistance Dressing Upper Body Moderate Assistance Dressing Lower Body Maximal Assistance Toileting Maximal Assistance Functional Mobility Assist Level Rolling Supine to Sit Moderate Assistance Sit to Supine Scooting Sit to Stand Moderate Assistance Stand to Sit Minimal Assistance Bed to Chair Moderate Assistance Wheeled Walker;Gait Belt Toilet/Commode Moderate Assistance (not formally assessed, sim to chair) Functional Mobility Hand Dominance: Right Range Of Motion: Within Functional Limits Strength: Within Functional Limits Except Location Strength Not WFL: Upper Extremity Left Upper Extremity Strength: 4/5 Right Upper Extremity Strength: 4/5 Edu pt on fall prevention / up with assistance. Pt left in room in chair with calllight within reach. Please see discipline specific clinical documentation flowsheet for complete details for this therapy evaluation/treatment. SIGNATURE: ROLDAN Medina/Marina PATIENT NAME: Dia Mccullough DATE: October 12, 2017 TIME: 2:45 PM PAGER: [phone] Karin Dow MD 10/12/2017 6:00 PM Signed DEPARTMENT OF HOSPITAL MEDICINE PROGRESS NOTE SERVICE DATE: 10/12/2017 SERVICE TIME: 3:16 PM Hospital Medicine/Primary Attending: Karin Dow MD NIGHT AND WEEKEND COVERAGE: From 7am - 7pm, please call [phone] After 7pm, please call cross cover pager #[phone] Subjective INTERVAL HPI: Patient seen and examined. Complains of pain in the ;left leg. Denies fever or chils or SOB. MEDICATIONS: Reviewed Objective PHYSICAL EXAM: BP 150/77 Pulse 89 Temp (Src) 99 (Oral) Resp 18 Ht 5' 0 (1.52m) Wt 155 lb 13.8 oz (70.7kg) SpO2 99% BMI 30.44 kg/(m2). Physical Exam Performed GENERAL: Alert, no distress, cooperative, SKIN: Skin color, texture, turgor normal. No rashes or lesions. OROPHARYNX: Lips, mucosa, and tongue normal. Teeth and gums normal. Oropharynx normal. LUNGS: Lungs clear to auscultation, Air entry good, Unlabored breathing. CARDIAC: Normal S1 and S2; 3/6 systolic murmurs ABDOMEN: Abdomen soft, non-tender, non-distended, BS normal EXTREMITIES: left leg- wrapped in spike. Opened and examined yesterday- has large hematoma in lower leg anteriorly. Small tearing of skin over the hematoma- serosanginous discharge, DP present Lines, Drains, and Airways Line Peripheral 10/09/17 0644 Left Wrist 22 Gauge 3 days Peripheral 10/11/17 0430 Short Left Antecubital 22 Gauge 1 day Drain Drain/Tube 10/11/17 Toby Sherwood Left Lower Quadrant Abdomen Drain #1 1 day Reviewed lines, drains, AND airways. Need to be continued peripheral lines DATA: Diagnostic tests reviewed for today's visit: Most recent labs and imaging results. Assessment/Plan 1. Sigmoid diverticulitis with pelvic abscess, improved, s/p abdominal drain with seropurulent discharge, on meropenem, ID following, H/o bowel perforation 08/24/17 ? 2. Recurrent DVT/PE, MTHFR heterozygous. Used to be on coumadin which was stopped when she developed hematemesis, remains on lovenox, Antiphospholipid ab negative 3. Left leg bleeding/ hematoma, s/p trauma, secondary to higher dose of lovenox for?CKD 3-4, continue with dressing and SPIKE. ? 5. Episode of hematemesis 5 weeks ago while on coumadin, managed with vitk. No scope done. ? 6. SVT, resolved ? 7. Severe Anemia, multifactorial, stable, Hb is 7.4. ? Medication and Non-Pharmacologic VTE Prophylaxis/Anticoagulants Anticoagulant AND Antiplatelet Medications Start Dose Route Frequency Ordered Stop 10/11/17 1800 enoxaparin 70 mg injection (LOVENOX) 1 mg/kg/dose SUBCUTANEOUS EVERY 24 HOURS 10/11/17 1736 -- 10/08/17 2300 vte non-pharmacologic prophylaxis - none indicated (va,mo) 10/08/17 230 vte current anticoag therapy (va,mo) VTE Prophylaxis: VTE prophylaxis appropriate Disposition: SNF Plan of care discussed with: Patient SIGNATURE: Karin Dow MD PATIENT NAME: Dia Mccullough DATE: October 12, 2017 TIME: 3:16 PM PAGER/CONTACT #: [phone] Joan Masters RN, RN 10/12/2017 3:22 PM Signed CARE MANAGEMENT PROGRESS NOTE SERVICE DATE: 10/12/2017 SERVICE TIME: 1521 LOS: 1 day Needs Prior to Discharge: Accepting Facility;Bed Availability;Precertification;Discharge Transportation Spoke with Pt after PT/OT eval, pt agreeable to SNF at [facility]. Would like [facility] as first choice. Will need precert. SIGNATURE: Joan Masters RN PATIENT NAME: Dia Mccullough DATE: October 12, 2017 TIME: 3:21 PM PAGER/CONTACT #: [phone] Radha Aceves, PT 10/12/2017 3:38 PM Signed Physical Therapy Evaluation SERVICE DATE: 10/12/2017 SERVICE TIME: 1455 to 1520 ROOM: [id number] Recommended Discharge Disposition: Subacute/SNF Justification For Post Acute Needs: Anticipate that patient will require daily (5x/wk) skilled therapy in a post-acute facility setting at the time of acute hospital discharge PT Recommendations to Nursing: Ambulate with device;Transfer to/from chair;OOB for Meals;With assist of 1 person Device: Wheeled Walker PT 6 Clicks Score: 17 Precautions/Activity Restrictions: Fall Risk Isolation Type: None ASSESSMENT : Patient presents with a medically stable condition with limited functional impairments which minimally impact safe mobility. The patient will require skilled therapy for PT problems that may include balance, gait safety with or without an assitive device and home safety education. Patient Disposition at Start of Session: OOB in Chair Patient Disposition at End of Session: Supine in Bed;Call Suggs in Reach Tolerance Limited By Pain Physical Therapy Problem List: Education Deficit;Safety Deficits;Decreased Activity Tolerance;Decreased Strength;Functional Mobility Impairment;Balance Impaired Patient /Caregiver Goals: Go Home Goals for Plan of Care: Transfer supine to/from sit with: Stand By Assistance Transfer sit to/from stand with: Stand By Assistance Ambulate with: Stand By Assistance Distance: 40 ft intervals Device: Wheeled Walker Goal: Complete 15x2 general LE strength exercises Rehab Potential: Good PLAN: Treatment Frequency (times per week): 5 (1-5) Current admission Treatment Interventions: Education;Strengthening;Functional Mobility Training;Balance Training Plan of Care developed with: Patient TREATMENT INTERVENTIONS: Therapy Diagnosis: Reduced mobility-other;Muscle Weakness (generalized);Unsteadiness on feet;Abnormalities of gait and mobility-other Interventions Provided: Evaluation;Therapeutic Activity (57631) $ Evaluation-Low (07642) Billed Units: 1 unit Therapeutic Activity (63820) Treatment Minutes: 9 1 unit Skilled Intervention(s): Instructed patient in sit to supine using safe, effective technique Instruction in sit to stand technique with proper hand placement and body positioning at edge of bed/chair Instruction in stand to sit technique with lower extremities touching chair/bed and reaching back for surface Education on hand and foot placement for stand pivot. Patient maintains NWB L lower extremity due to pain Education with safe wheeled walker usage including pacing, upright posture, sequencing, gait pattern and proper foot/body placement within the frame of the wheeled walker Education regarding importance of OOB, to chair, ambulate in room to regulate BP, improve lung function and overall blood flow, and to aid with bodily functions somewhat dependent on gravity. Total Timed Code Treatment Minutes: 9 Total Treatment Time (minutes): 25 FUNCTIONAL G CODE: PT 6 Clicks Score: 17 (10/12/17 145) Mobility: Walking and Moving Around Current Status (G8978): CK (10/12/17 145) Mobility: Walking and Moving Around Goal Status (G8979): CJ (10/12/171454) Based on clinical assessment and the score on the 6 Clicks Functional Assessment Tool, the G code and corresponding severity modifiers are documented above. SUBJECTIVE: Current Hospital Course: Chart reviewed; ? This is a 77 year old female who has a complicated recent medical history starting August 24 when she was diagnosed with diverticular abscess/perforation and septic shock. ?She was brought here for surgical eval from [place], but declined operative intervention and requested to go home with hospice on PO antibiotics. ?She took 2 weeks of antibiotics, had stabilization and improvement of her symptoms, but subsequently developed hematemesis due to anticoagulation and presumed PUD. ?She was admitted to inpatient hospice residence, but with stopping her anticoagulation, hematemesis stopped and she was discharged from inpatient hospice. ?She then had new DVT and PE developing off anticoagulation and was re-hospitalized, with initiation of Lovenox at full dose. ?She spent some time in the transitional care unit and was sent home 1 week ago on Lovenox. On 10/11 she noted an area on her left foot/pretibial area of bruise/oozing blood, but it worsened and progressed to cover much of the pretibial area with more bleeding, and she went to the [place] ED this morning. ?She was discharged back home after wound evaluation and no finding of circulatory compromise. ?Her son then brought her back to the ED with a concern over abdominal pain and insistent on hospitalization per [place] ED notes. ?Eval included CT abdomen which showed a 5 cm abscess/phlegmon in the same area as the original perforation, and she was recommended to be transferred to have IR evaluation of percutaneous drainage.??? 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 Hansen - Inflammatory polyarthropathy - Normocytic anemia - PE (pulmonary thromboembolism) ([facility]) 01/05/14 Bilat, extensive - Pulmonary embolism without acute cor pulmonale - Pure hypercholesterolemia - Sicca syndrome - Unspecified essential hypertension - Unspecified gastritis and gastroduodenitis without mention of hemorrhage - Urinary tract infection, site not specified - Venous insufficiency (chronic) (peripheral) - Vitamin D deficiency PAST SURGICAL HISTORY Procedure Laterality Date - CATARACT EXTRACTION HX Right - PARTIAL HIP REPLACEMENT Right 04/2013 - PAST SURGICAL HISTORY OF hernia repair - PAST SURGICAL HISTORY OF 11/2012 L3-L4 laminectomy and fusion - PAST SURGICAL HISTORY OF 11/2012 Back fusion surgery - TOTAL HIP REPLACEMENT 05/10/2013 right hip replacement - VENOUS DUPLEX BOTH LOWER EXTREMITIES 05/12/2016 Patient Report: 12/23 pain L lower extremity. Agreeable to PT. I know I cannot go back home like this Home Environment Patient Lives With: Self/Alone Assistance Available: time study statistician (Dtr nearby) Entry To Home: No Stairs Tub/Shower Type: walk in shower with seat Laundry: on main floor Equipment Owned: Grab Bars-Shower;Wheeled Walker;Cane;Shower Chair (transport W/C?) Prior Functional Level: Required Assistance Assistance Required With: Laundry;Cleaning;Shopping;Transportation (Dtr assists with IADLs since return home for about 1 week) Prior Functional Level Comments: Pt was at hospice, get better, went to rehab and has been at home for a week. Now developed L LE hematoma. OBJECTIVE: CURRENT FUNCTIONAL STATUS: Current Functional Mobility Assist Level Additional Information Rolling Supine to Sit Sit to Supine Minimal Assistance Scooting Sit to Stand Minimal Assistance Stand to Sit Minimal Assistance Bed to Chair Toilet/Commode Minimal Assistance Gait Minimal Assistance Gait Device: Wheeled Walker Gait Distance (feet): 4x2 Stairs Curb Step Car Transfer Gait Deviations Left Lower Extremity: Weight bearing decreased General Gait Deviations: Lauryn decreased;Flexed trunk posture;Shuffling Gait;Non-functional gait speed Range Of Motion: Within Functional Limits Strength: Within Functional Limits Except Location Strength Not WFL: Lower Extremity;Upper Extremity Left Upper Extremity Strength: 3+ Right Upper Extremity Strength: 3+ Left Lower Extremity Strength: 4- Right Lower Extremity Strength: 4- Please see discipline specific clinical documentation flowsheet for complete details for this therapy evaluation/treatment. SIGNATURE: Radha Aceves PT PATIENT NAME: Dia Mccullough DATE: October 12, 2017 TIME: 3:33 PM PAGER/CONTACT #: [phone] Summer Farias, Front Office Help 10/12/2017 3:45 PM Signed SNF referral sent to [facility] Debbie Hilton RN, RN 10/13/2017 11:09 AM Signed Received message through Joan Masters Patient Access that [facility] will be able to accept pt at d/c Pt informaed. Lory Garces MD 10/13/2017 11:18 AM Signed INPATIENT PROGRESS NOTE SERVICE DATE: 10/13/2017 SERVICE TIME: 11:11 AM PRIMARY SERVICE: Sound Subjective CHIEF COMPLAINT: Intra-abdominal Abscess INTERVAL HPI: 3-4 loose BM. No CP/SOB/CALZADA Current hospital medications: acetaminophen 650 mg tab(s) (TYLENOL) 650 mg ORAL q 4 H PRN iv contrast (radiology procedure) INTRAVENOUS DIRECTED PRN enoxaparin 70 mg injection (LOVENOX) 1 mg/kg/dose SUBCUTANEOUS q 24 HR HYDROcodone 5 mg - acetaminophen 325 mg tablet (NORCO) 1 tablet ORAL q 4 H PRN polyethylene glycol 3350 17 g packet (MIRALAX, GLYCOLAX) 17 g ORAL DAILY metoprolol tartrate (short acting) 25 mg tab(s) (LOPRESSOR) 25 mg ORAL q 12 H acetaminophen 650 mg tab(s) (TYLENOL) 650 mg ORAL q 6 H PRN meropenem 1 g in NaCl 0.9% 100 mL MB+ (MERREM) 1 g INTRAVENOUS q 12 H ondansetron orally disintegrating 4 mg tab(s) (ZOFRAN ODT) 4 mg ORAL q 6 H PRN predniSONE 5 mg tab(s) (DELTASONE) 5 mg ORAL BID PC predniSONE 2.5 mg tab(s) (DELTASONE) 2.5 mg ORAL DAILY wDINNER pantoprazole DR 40 mg tab(s) (PROTONIX) 40 mg ORAL DAILY (6 AM) saliva substitute combo no.9 15 mL (BIOTENE mouthwash) 15 mL MUCOUS MEMBRANE (TOPICAL MOUTH AND THROAT) 5X/DAY benzocaine-menthol 1 Lozenge (CEPACOL) 1 Lozenge MUCOUS MEMBRANE (TOPICAL MOUTH AND THROAT) q 2 H PRN 0.9% NaCl 3-5 mL 3-5 mL INTRAVENOUS q 12 H lactated ringers infusion 100 mL/hr INTRAVENOUS CONTINUOUS guaiFENesin 200 mg oral liquid (ROBITUSSIN) 200 mg ORAL QID Objective PHYSICAL EXAM: BP 165/82 Pulse 89 Temp (Src) 98.2 (Oral) Resp 18 Ht 5' 0 (1.52m) Wt 155 lb 13.8 oz (70.7kg) SpO2 100% BMI 30.44 kg/(m2). Physical Exam Performed GENERAL: Alert, no distress, cooperative SKIN: Skin color, texture, turgor normal. Multiple ecchymoses. EYES: EOMI NECK: No jugulovenous distention, Supple LUNGS: Lungs clear to auscultation, Good diaphragmatic excursion CARDIAC: Normal S1 and S2; no rubs, murmurs, or gallops ABDOMEN: Abdomen soft, non-tender, BS normal, No masses or organomegaly. ADRIÁN drain c/d/i EXTREMITIES: Extensive bruising, LLE wrapped NEURO: Grossly normal cognition, motor function, and cranial nerves III-XII DATA: Diagnostic tests reviewed for today's visit: Most recent labs and imaging results. Assessment/Plan 1. Intra-abdominal Abscess 2/2 Complicated Diverticulitis - await ID/Sens, currently with ADRIÁN drain and on meropenem. Abscessogram next week per IR. 2. Acute LLE hematoma - large, evaluated by Plastics and non-operative mgmt being pursued. 3. Hypercoag State with Mult DVT/PE - currently on once daily therapeutic Lovenox 4. A/C Blood Loss Anemia - 2/2 #2. Stable H/H, follow. 5. CKF S3 6. Curry's Dz - prednisone 7. PMR/Inflammatory Polyarthritis Medication and Non-Pharmacologic VTE Prophylaxis/Anticoagulants Anticoagulant AND Antiplatelet Medications Start Dose Route Frequency Ordered Stop 10/11/17 1800 enoxaparin 70 mg injection (LOVENOX) 1 mg/kg/dose SUBCUTANEOUS EVERY 24 HOURS 10/11/17 1736 -- 10/08/17 2300 vte non-pharmacologic prophylaxis - none indicated (va,mo) 10/08/17 230 vte current anticoag therapy ([place], [place]) VTE Prophylaxis: VTE prophylaxis appropriate SIGNATURE: Lory Garces MD PATIENT NAME: Dia Mccullough DATE: October 13, 2017 TIME: 11:11 AM PAGER: Vincent Hilton, RN, RN 10/13/2017 2:45 PM Signed Spoke with Allie Mcallister at [facility]. She will start precert for pt for transfer to her facillity. Misael Wei MD 10/13/2017 5:38 PM Signed October 13, 2017 5:37 PM Infectious Disease Afebrile, denies abdominal pain. Abscess cult- KE group GNB, Clostridium, Khadijah Recent Labs 10/12/17 0635 10/11/17 0431 WBC 7.81 8.18 7.98 HB 7.4* 7.4* 7.4* HCT 24.3* 23.4* 23.4* PLT 224 211 207 CREAT -- 0.94 NEUTNUM 5.87 6.20* LYMPHNUM 1.21 1.13* MONOCYT 0.52 0.46 EOSIN 0.02 0.01 Imp:Abdominal abscess Rec:Continue meropenem Add fluconazole. MD Misael Lyons MD 10/14/2017 12:25 PM Addendum INFECTIOUS DISEASE CONSULT PROGRESS NOTE SERVICE DATE: 10/14/2017 SERVICE TIME: 12:15 PM Subjective INTERVAL HISTORY / PERTINENT Review of Systems Constitutional: Negative for chills and fever. Gastrointestinal: Positive for abdominal pain (improving per pt, still mainly around drain). Current Facility-Administered Medications: fluconazole 400 mg in NaCl (iso-osmotic) 200 mL (DIFLUCAN) 400 mg INTRAVENOUS DAILY acetaminophen 650 mg tab(s) (TYLENOL) 650 mg ORAL q 4 H PRN iv contrast (radiology procedure) INTRAVENOUS DIRECTED PRN enoxaparin 70 mg injection (LOVENOX) 1 mg/kg/dose SUBCUTANEOUS q 24 HR HYDROcodone 5 mg - acetaminophen 325 mg tablet (NORCO) 1 tablet ORAL q 4 H PRN polyethylene glycol 3350 17 g packet (MIRALAX, GLYCOLAX) 17 g ORAL DAILY metoprolol tartrate (short acting) 25 mg tab(s) (LOPRESSOR) 25 mg ORAL q 12 H acetaminophen 650 mg tab(s) (TYLENOL) 650 mg ORAL q 6 H PRN meropenem 1 g in NaCl 0.9% 100 mL MB+ (MERREM) 1 g INTRAVENOUS q 12 H ondansetron orally disintegrating 4 mg tab(s) (ZOFRAN ODT) 4 mg ORAL q 6 H PRN predniSONE 5 mg tab(s) (DELTASONE) 5 mg ORAL BID PC predniSONE 2.5 mg tab(s) (DELTASONE) 2.5 mg ORAL DAILY wDINNER pantoprazole DR 40 mg tab(s) (PROTONIX) 40 mg ORAL DAILY (6 AM) saliva substitute combo no.9 15 mL (BIOTENE mouthwash) 15 mL MUCOUS MEMBRANE (TOPICAL MOUTH AND THROAT) 5X/DAY benzocaine-menthol 1 Lozenge (CEPACOL) 1 Lozenge MUCOUS MEMBRANE (TOPICAL MOUTH AND THROAT) q 2 H PRN 0.9% NaCl 3-5 mL 3-5 mL INTRAVENOUS q 12 H lactated ringers infusion 100 mL/hr INTRAVENOUS CONTINUOUS guaiFENesin 200 mg oral liquid (ROBITUSSIN) 200 mg ORAL QID Objective PHYSICAL EXAM: Vital Signs: BP 153/89 Pulse 98 Temp 37 ?C (98.6 ?F) (Oral) Resp 18 Ht 152.4 cm (5') Wt 70.7 kg (155 lb 13.8 oz) SpO2 99% BMI 30.44 kg/m? Physical Exam Abdominal: There is tenderness (left side). Dark doyle purulent fluid in abscess drain. DATA: Diagnostic Tests Reviewed for Today's Visit: Most recent labs Micro: Abscess culture- Klebsiella pneumoniae, C perfringens, and C albicans. Gm stain also shows GPC. Recent Labs 10/14/17 0510 10/12/17 0635 WBC 10.24* 7.81 HB 7.8* 7.4* HCT 25.3* 24.3* PLT 268 224 NEUTNUM 7.81* 5.87 CREAT 0.95 -- No results found for: VANCORA Impression/Recommendations Principal Problem: Intra-abdominal abscess (HCC) POA: Yes Assessment AND Plan: I recommend continued iv antibiotic therapy at [facility] at least initially. Pt declines, wants to be treated with oral atbs. Discussed at length with her including risk of treatment failure. She understands. Will change to po augmentin, cipro, and fluconazole. Her augmentin reaction was upset stomach, no other allergic symptoms. Could go to [facility] on these. Has follow up abscessogram in Radiology scheduled for 1 week per her report. Will need to stay on atbs until abscess resolved. If discharged, should have FU appt with me in about 4 weeks. D/W [facility] IM. Resolved Problems: * No resolved hospital problems. * SIGNATURE: Misael Wei MD PATIENT NAME: Dia Mccullough DATE: October 14, 2017 TIME: 12:15 PM PAGER/CONTACT #: [phone] Previous Version Lory Garces MD 10/14/2017 12:52 PM Signed INPATIENT PROGRESS NOTE SERVICE DATE: 10/14/2017 SERVICE TIME: 12:49 PM PRIMARY SERVICE: Sound Subjective CHIEF COMPLAINT: Abd Pain INTERVAL HPI: No CALZADA/CP/SOB/Abd pain Current hospital medications: amoxicillin-clavulanic acid 875 mg tab(s) (AUGMENTIN) 875 mg ORAL q 12 H ciprofloxacin HCl 500 mg tab(s) (CIPRO) 500 mg ORAL q 12 H fluconazole 400 mg tab(s) (DIFLUCAN) 400 mg ORAL DAILY acetaminophen 650 mg tab(s) (TYLENOL) 650 mg ORAL q 4 H PRN iv contrast (radiology procedure) INTRAVENOUS DIRECTED PRN enoxaparin 70 mg injection (LOVENOX) 1 mg/kg/dose SUBCUTANEOUS q 24 HR HYDROcodone 5 mg - acetaminophen 325 mg tablet (NORCO) 1 tablet ORAL q 4 H PRN polyethylene glycol 3350 17 g packet (MIRALAX, GLYCOLAX) 17 g ORAL DAILY metoprolol tartrate (short acting) 25 mg tab(s) (LOPRESSOR) 25 mg ORAL q 12 H acetaminophen 650 mg tab(s) (TYLENOL) 650 mg ORAL q 6 H PRN ondansetron orally disintegrating 4 mg tab(s) (ZOFRAN ODT) 4 mg ORAL q 6 H PRN predniSONE 5 mg tab(s) (DELTASONE) 5 mg ORAL BID PC predniSONE 2.5 mg tab(s) (DELTASONE) 2.5 mg ORAL DAILY wDINNER pantoprazole DR 40 mg tab(s) (PROTONIX) 40 mg ORAL DAILY (6 AM) saliva substitute combo no.9 15 mL (BIOTENE mouthwash) 15 mL MUCOUS MEMBRANE (TOPICAL MOUTH AND THROAT) 5X/DAY benzocaine-menthol 1 Lozenge (CEPACOL) 1 Lozenge MUCOUS MEMBRANE (TOPICAL MOUTH AND THROAT) q 2 H PRN 0.9% NaCl 3-5 mL 3-5 mL INTRAVENOUS q 12 H lactated ringers infusion 100 mL/hr INTRAVENOUS CONTINUOUS guaiFENesin 200 mg oral liquid (ROBITUSSIN) 200 mg ORAL QID Objective PHYSICAL EXAM: BP 153/89 Pulse 98 Temp (Src) 98.6 (Oral) Resp 18 Ht 5' 0 (1.52m) Wt 155 lb 13.8 oz (70.7kg) SpO2 99% BMI 30.44 kg/(m2). Physical Exam Performed GENERAL: Alert, no distress, cooperative SKIN: Skin color, texture, turgor normal. Multiple ecchymoses. EYES: EOMI NECK: No jugulovenous distention, Supple LUNGS: Lungs clear to auscultation, Good diaphragmatic excursion CARDIAC: Normal S1 and S2; no rubs, murmurs, or gallops ABDOMEN: Abdomen soft, non-tender, BS normal, No masses or organomegaly. ADRIÁN drain c/d/i EXTREMITIES: Extensive bruising, LLE wrapped NEURO: Grossly normal cognition, motor function, and cranial nerves III-XII DATA: Diagnostic tests reviewed for today's visit: Most recent labs and imaging results. Assessment/Plan 1. Intra-abdominal Abscess 2/2 Complicated Diverticulitis - Rx with ADRIÁN drain and on meropenem in-house. Patient refuses PICC line and IV anti-biotics despite d/w me and ID. Cx growing Klebsiella, Clostridium, Yeast, and unknown GPC, and ID changed abx to Augmentin, Cipro, and Fluconazole. Rx for at least 4 weeks and through resolution of abscess. Abscessogram next week per IR. F/U with ID one month. ? 2. Acute LLE hematoma - large, evaluated by Plastics and non-operative mgmt being pursued. ? 3. Hypercoag State with Mult DVT/PE - currently on once daily therapeutic Lovenox ? 4. A/C Blood Loss Anemia - 2/2 #2. Stable H/H, follow. ? 5. CKF S3 ? 6. Curry's Dz - prednisone ? 7. PMR/Inflammatory Polyarthritis Medication and Non-Pharmacologic VTE Prophylaxis/Anticoagulants Anticoagulant AND Antiplatelet Medications Start Dose Route Frequency Ordered Stop 10/11/17 1800 enoxaparin 70 mg injection (LOVENOX) 1 mg/kg/dose SUBCUTANEOUS EVERY 24 HOURS 10/11/17 1736 -- 10/08/17 2300 vte non-pharmacologic prophylaxis - none indicated (va,mo) 10/08/17 2300 vte current anticoag therapy ([place], [place]) VTE Prophylaxis: VTE prophylaxis appropriate SIGNATURE: Lory Garces MD PATIENT NAME: Dia Mccullough DATE: October 14, 2017 TIME: 12:49 PM PAGER: Vincent Hilton, RN, RN 10/14/2017 2:41 PM Signed Spoke with Allie @ [facility]. They cancelled precert for this patient thinking she would not come until next week. Asked that they get new precert. Lory Garces MD 10/14/2017 2:45 PM Signed DISCHARGE SUMMARY PATIENT NAME: Dia Mccullough Admission Information Admission Information ADMIT DATE: 10/08/2017 DISCHARGE DATE: 10/14/2017 MY DOCTORS AND MEDICAL TEAM: My Main Hospital Doctor: Lory Garces Primary Care Provider: Mallorie Wheeler MD My Medical Team Members: Treatment Team: Attending Provider: Lory Garces Primary Service: Julien Castano Consulting: Dar Sorensen Consulting: Zhane Mcgovern III Consulting: Antione Irizarry Consulting: Jj Howell MY CONDITION AT DISCHARGE: Stable REASON I WAS IN THE HOSPITAL: Abd Pain SUMMARY OF WHAT HAPPENED WHILE I WAS IN THE HOSPITAL: You were admitted for abdominal pain and an intra-abdominal abscess. A drain was placed and will stay until the abscess is resolved. Continue anti-biotics until told to stop by Infectious Disease. OTHER PROBLEMS/DIAGNOSIS: Principal Problem: Intra-abdominal abscess (HCC) Active Problems: DVT (deep venous thrombosis) (HCC) Pulmonary emboli (HCC) CKD (chronic kidney disease) stage 3, GFR 30-59 ml/min Venous insufficiency (chronic) (peripheral) Curry disease Traumatic hematoma of left lower leg Leg hematoma, left, initial encounter Resolved Problems: * No resolved hospital problems. * OPERATIONS PERFORMED WHILE IN THE HOSPITAL: None IMPORTANT TEST/PROCEDURES: No procedures performed TEST RESULTS NOT AVAILABLE AT THIS TIME: No pending results Discharge Disposition Discharge Disposition: Correction Facility - Greater than 30 Days Activity When You Leave the Hospital Resume pre-hospital activity Diet Instructions Resume your pre-hospital diet Follow Up Appointments Follow-Up Appointment When: In 4 weeks Misael Wei [phone] [facility] [address] [facility] [id number] PCP Requested Referral Follow-Up Appointment When: In 1 week Mallorie Wheeler [phone] [address] [facility] [address] PCP Requested Referral Additional Provider to Provider Information: 1. ?Intra-abdominal Abscess 2/2 Complicated Diverticulitis - Rx with ADRIÁN drain and on meropenem in-house. ?Patient refuses PICC line and IV anti-biotics despite d/w me and ID. Cx growing Klebsiella, Clostridium, Yeast, and unknown GPC, and ID changed abx to Augmentin, Cipro, and Fluconazole. Rx for at least 4 weeks and through resolution of abscess. Abscessogram not able to be performed due to insurance reasons at [place], d/w patient, and she would prefer to still go to [place] and get CT scan only even though the study is not as good. F/U with ID one month. ? 2. ?Acute LLE hematoma - large, evaluated by Plastics and non-operative mgmt being pursued. ? 3. ?Hypercoag State with Mult DVT/PE - currently on once daily therapeutic Lovenox ? 4. ?A/C Blood Loss Anemia - 2/ #2. ?Stable H/H, follow. ? 5. ?CKF S3 ? 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 7. ?PMR/Inflammatory Polyarthritis FOLLOW-UP APPOINTMENTS ALREADY SCHEDULED WITH A [facility] PROVIDER: No future appointments. DISCHARGE MEDICATION: Current Discharge Medication List START taking these medications fluconazole (DIFLUCAN) 400 mg Take 400 mg by mouth once daily. metoprolol tartrate (short acting) (LOPRESSOR) 25 mg Take 25 mg by mouth every 12 hours. polyethylene glycol 3350 (MIRALAX, GLYCOLAX) 17 g Take 17 g by mouth once daily. HYDROcodone-acetaminophen (NORCO) 1 tablet Take 1 tablet by mouth every 4 hours as needed. Earliest Fill Date: 10/14/17 Refills: 0 Associated Diagnoses:Leg hematoma, left, initial encounter; Intra-abdominal abscess (HCC) amoxicillin-clavulanic acid (AUGMENTIN) 875 mg Take 875 mg by mouth twice daily. ciprofloxacin HCl (CIPRO) 500 mg Take 500 mg by mouth twice daily. CONTINUE these medications which have CHANGED enoxaparin (LOVENOX) 70 mg Inject 70 mg subcutaneously q 24 HR. CONTINUE these medications which have NOT CHANGED !! predniSONE (DELTASONE) 2.5 mg Take 2.5 mg by mouth daily before dinner. Omeprazole 40 mg Take 40 mg by mouth once daily. !! predniSONE (DELTASONE) 5 mg Take 5 mg by mouth twice daily. ondansetron orally disintegrating (ZOFRAN ODT) 4 mg Take 4 mg by mouth every 6 hours as needed for Nausea/Vomiting. Qty: 24 tablet Refills: 0 !! - Potential duplicate medications found. Please discuss with provider. STOP taking these medications hydroCHLOROthiazide (HYDRODIURIL, ESIDRIX) 25 mg Comments: Reason for Stopping: TIME OF CARE: Discharge Management: I personally spent greater than 30 minutes involved in the discharge management of this patient. SIGNATURE: Lory Garces MD PAGER/CONTACT #: DATE: October 14, 2017 TIME: 2:43 PM Maty Aceves RN, RN 10/14/2017 6:23 PM Addendum 1822- [facility] has not called back stating if the patient has received precert. RN spoke with Joan body care manager and she states she has not heard anything back from [place]. Patient updated. 1630-Per body care manager Debbie Hilton patients precert is no longer active and states that [facility] is working towards new precert for later today. RN and body care manager updated patient on discharge situation. Previous Version Keya Robles RN, RN 10/15/2017 9:52 AM Signed CARE MANAGEMENT PROGRESS NOTE SERVICE DATE: 10/15/2017 SERVICE TIME:9:49 A.M. Spoke with Allie, staff member at [facility]. They do not have pre-cert at this time so patient is unable to come to them this weekend. The earliest would be Tuesday, if they can obtain if at that time. LOS: 4 days SIGNATURE: Keya Robles RN PATIENT NAME: Dia Mccullough DATE: October 15, 2017 TIME: 9:49 AM PAGER/CONTACT #: [phone] Patsy Kirby MD, MD 10/16/2017 5:52 AM Signed DEPARTMENT OF HOSPITAL MEDICINE PROGRESS NOTE SERVICE DATE: 10/15/2017 SERVICE TIME: 8:18 PM Hospital Medicine/Primary Attending: Patsy Kirby MD Subjective INTERVAL HPI: Pt doing fine, no fever,nausea or vomiting,abdominal pain better.looking forward to therapy at SNF. MEDICATIONS: Reviewed Current Facility-Administered Medications: amoxicillin-clavulanic acid 875 mg tab(s) (AUGMENTIN) 875 mg ORAL q 12 H Misael E Bollin 875 mg at 10/15/172007 ciprofloxacin HCl 500 mg tab(s) (CIPRO) 500 mg ORAL q 12 H Misael E Bollin 500 mg at 10/15/172007 fluconazole 400 mg tab(s) (DIFLUCAN) 400 mg ORAL DAILY Misael E Bollin 400 mg at 10/15/17 0859 acetaminophen 650 mg tab(s) (TYLENOL) 650 mg ORAL q 4 H PRN Phong Rush iv contrast (radiology procedure) INTRAVENOUS DIRECTED PRN Phong Rush enoxaparin 70 mg injection (LOVENOX) 1 mg/kg/dose SUBCUTANEOUS q 24 HR Jose Maria Kyrie 70 mg at 10/15/17 1810 HYDROcodone 5 mg - acetaminophen 325 mg tablet (NORCO) 1 tablet ORAL q 4 H PRN Kaycee (Shanel Figueroa 1 tablet at 10/15/17 0857 polyethylene glycol 3350 17 g packet (MIRALAX, GLYCOLAX) 17 g ORAL DAILY Jose Maria Kyrie 17 g at 10/13/17 0828 metoprolol tartrate (short acting) 25 mg tab(s) (LOPRESSOR) 25 mg ORAL q 12 H Jose Maria Kyrie 25 mg at 10/15/172007 acetaminophen 650 mg tab(s) (TYLENOL) 650 mg ORAL q 6 H PRN Callie Castle ondansetron orally disintegrating 4 mg tab(s) (ZOFRAN ODT) 4 mg ORAL q 6 H PRN Gold Clemens predniSONE 5 mg tab(s) (DELTASONE) 5 mg ORAL BID PC Gold Clemens 5 mg at 10/15/17 1241 predniSONE 2.5 mg tab(s) (DELTASONE) 2.5 mg ORAL DAILY wDINNER Gold Clemens 2.5 mg at 10/15/[address] 40 mg tab(s) (PROTONIX) 40 mg ORAL DAILY (6 AM) Gold Clemens 40 mg at 10/15/17 0528 saliva substitute combo no.9 15 mL (BIOTENE mouthwash) 15 mL MUCOUS MEMBRANE (TOPICAL MOUTH AND THROAT) 5X/DAY Gold Clemens 15 mL at 10/14/17 0817 benzocaine-menthol 1 Lozenge (CEPACOL) 1 Lozenge MUCOUS MEMBRANE (TOPICAL MOUTH AND THROAT) q 2 H PRN Gold Clemens 0.9% NaCl 3-5 mL 3-5 mL INTRAVENOUS q 12 H Gold Clemens 3 mL at 10/15/172007 lactated ringers infusion 100 mL/hr INTRAVENOUS CONTINUOUS Gold Clemens Last Rate: 100 mL/hr at 10/15/17 0045 100 mL/hr at 10/15/17 0045 guaiFENesin 200 mg oral liquid (ROBITUSSIN) 200 mg ORAL QID Gold Clemens 200 mg at 10/15/17 0858 Objective PHYSICAL EXAM: BP 138/80 Pulse 108 Temp (Src) 98.4 (Oral) Resp 18 Ht 5' 0 (1.52m) Wt 155 lb 13.8 oz (70.7kg) SpO2 98% BMI 30.44 kg/(m2). Physical Exam Performed GENERAL: Alert, no acute distress, cooperative SKIN: Skin color, texture, turgor normal. Multiple ecchymoses over upper arms bilaterally noted EYES: EOMI NECK: No jugulovenous distention, Supple LUNGS: Lungs clear to auscultation, symmetrical expansion CARDIAC: Normal S1 and S2; no murmurs heard. ABDOMEN: Abdomen soft, non-tender, BS normal, No masses palpable ?ADRIÁN drain c/d/i EXTREMITIES: Extensive bruising, LLE wrapped NEURO: Grossly normal cognition, motor function, DATA: Diagnostic tests reviewed for today's visit: Most recent labs and imaging results. CBC, Coags, BMP, Mg, Phos Recent Labs 10/15/17 2236 10/14/17 0510 WBC 12.59* 10.24* HB 8.2* 7.8* HCT 27.0* 25.3* PLT 284 268 NA 139 139 K 5.0 4.3 CHLOR 107 108* CO2 29 27 BUN 21* 17 CREAT 1.36* 0.95 GLUC 132* 97 CA 8.7 8.5 Active Hospital Problems Diagnosis Date Noted - Intra-abdominal abscess (HCC) 10/08/2017 - Traumatic hematoma of left lower leg 10/08/2017 - Leg hematoma, left, initial encounter 10/08/2017 - Baltazar disease Chronic - Venous insufficiency (chronic) (peripheral) - CKD (chronic kidney disease) stage 3, GFR 30-59 ml/min 11/28/2014 - Pulmonary emboli (HCC) 01/30/2014 Overview Note: clinically resolved - DVT (deep venous thrombosis) ([facility]) 01/08/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 ?Intra-abdominal Abscess 2/2 Complicated Diverticulitis - Rx?with ADRIÁN drain and on meropenem in-house. ?Patient refuses PICC line and IV anti-biotics despite d/w me and ID. ?Cx growing Klebsiella, Clostridium, Yeast, and unknown GPC, and ?ID changed abx to Augmentin, Cipro, and Fluconazole. ?Rx for at least 4 weeks and through resolution of abscess. ?Abscessogram not able to be performed due to insurance reasons at [place], d/w patient, and she would prefer to still go to [place] and get CT scan only even though the study is not as good. ?F/U with ID one month. ? 2. ?Acute LLE hematoma - large, evaluated by Plastics and non-operative mgmt being pursued. ? 3. ?Hypercoag State with Mult DVT/PE - currently on once daily therapeutic Lovenox ? 4. ?A/C Blood Loss Anemia - 2/2 #2. ?Stable H/H, follow. ? 5. ?CKF S3 ? 6. ?Baltazar's Dz - prednisone ? ? 7. ?PMR/Inflammatory Polyarthritis Medication and Non-Pharmacologic VTE Prophylaxis/Anticoagulants Anticoagulant AND Antiplatelet Medications Start Dose Route Frequency Ordered Stop 10/14/17 0000 enoxaparin (LOVENOX) 80 mg/0.8 mL syrg 1 mg/kg/dose SUBCUTANEOUS EVERY 24 HOURS 10/14/17 1443 -- 10/11/17 1800 enoxaparin 70 mg injection (LOVENOX) 1 mg/kg/dose SUBCUTANEOUS EVERY 24 HOURS 10/11/17 1736 -- 10/08/17 2300 vte non-pharmacologic prophylaxis - none indicated (va,oh) 10/08/17 2300 vte current anticoag therapy (va,mo) Disposition: SNF,pending precert Plan of care discussed with: Patient and RN SIGNATURE: Patsy Kirby MD PATIENT NAME: Dia Mccullough DATE: October 15, 2017 TIME: 8:18 PM PAGER/CONTACT #: monica castano etx [phone] Patsy Kirby MD, MD 10/17/2017 3:57 AM Signed DEPARTMENT OF HOSPITAL MEDICINE PROGRESS NOTE SERVICE DATE: 10/16/2017 SERVICE TIME: 10:00 PM Hospital Medicine/Primary Attending: Patsy Kirby MD Subjective INTERVAL HPI: Doing fine, abdominal pain and leg pain is better,pt eager to participate in PT,no fever,chills,chest pain,sob MEDICATIONS: Reviewed Current Facility-Administered Medications: melatonin 3 mg tab(s) 3 mg ORAL AT BEDTIME Kaycee Figueroa amoxicillin-clavulanic acid 875 mg tab(s) (AUGMENTIN) 875 mg ORAL q 12 H Misael Odell Bollin 875 mg at 10/16/172116 ciprofloxacin HCl 500 mg tab(s) (CIPRO) 500 mg ORAL q 12 H Misael E Bollin 500 mg at 10/16/172116 fluconazole 400 mg tab(s) (DIFLUCAN) 400 mg ORAL DAILY Misael E Bollin 400 mg at 10/16/17 0849 acetaminophen 650 mg tab(s) (TYLENOL) 650 mg ORAL q 4 H PRN Phong Rush iv contrast (radiology procedure) INTRAVENOUS DIRECTED PRN Phong Rush enoxaparin 70 mg injection (LOVENOX) 1 mg/kg/dose SUBCUTANEOUS q 24 HR Jose Maria Kyrie 70 mg at 10/16/17 1710 HYDROcodone 5 mg - acetaminophen 325 mg tablet (NORCO) 1 tablet ORAL q 4 H PRN Kaycee (Forming Department Supervisor) [place] 1 tablet at 10/15/17 0857 polyethylene glycol 3350 17 g packet (MIRALAX, GLYCOLAX) 17 g ORAL DAILY Jose Maria Kyrie 17 g at 10/13/17 0828 metoprolol tartrate (short acting) 25 mg tab(s) (LOPRESSOR) 25 mg ORAL q 12 H Jose Maria Kyrie 25 mg at 10/16/177 acetaminophen 650 mg tab(s) (TYLENOL) 650 mg ORAL q 6 H PRN Callie Castle ondansetron orally disintegrating 4 mg tab(s) (ZOFRAN ODT) 4 mg ORAL q 6 H PRN Gold Clemens predniSONE 5 mg tab(s) (DELTASONE) 5 mg ORAL BID SHELBIE Clemens 5 mg at 10/16/17 1235 predniSONE 2.5 mg tab(s) (DELTASONE) 2.5 mg ORAL DAILY wDINNER Gold Clemens 2.5 mg at 10/16/[address] 40 mg tab(s) (PROTONIX) 40 mg ORAL DAILY (6 AM) Gold Cleemns 40 mg at 10/16/17 0546 saliva substitute combo no.9 15 mL (BIOTENE mouthwash) 15 mL MUCOUS MEMBRANE (TOPICAL MOUTH AND THROAT) 5X/DAY Gold Clemens 15 mL at 10/14/17 0817 benzocaine-menthol 1 Lozenge (CEPACOL) 1 Lozenge MUCOUS MEMBRANE (TOPICAL MOUTH AND THROAT) q 2 H PRN Gold Clemens 0.9% NaCl 3-5 mL 3-5 mL INTRAVENOUS q 12 H Gold Lyonon 3 mL at 10/16/17 2118 lactated ringers infusion 100 mL/hr INTRAVENOUS CONTINUOUS Gold Clemens Last Rate: 100 mL/hr at 10/15/17 0045 100 mL/hr at 10/15/17 0045 guaiFENesin 200 mg oral liquid (ROBITUSSIN) 200 mg ORAL QID Gold Lyonon 200 mg at 10/16/17 0849 Objective PHYSICAL EXAM: BP 139/71 Pulse 113 Temp (Src) 98.1 (Oral) Resp 18 Ht 5' 0 (1.52m) Wt 155 lb 13.8 oz (70.7kg) SpO2 98% BMI 30.44 kg/(m2). Physical Exam Performed GENERAL: Alert, no acute distress, cooperative SKIN: Dry and normal. Multiple ecchymoses over upper arms bilaterally noted EYES: EOMI,anicteric sclerae NECK: No jugulovenous distention, Supple LUNGS: Lungs clear to auscultation, symmetrical expansion CARDIAC: Normal S1 and S2; no murmurs heard. ABDOMEN: Abdomen soft, non-tender, BS normal, No masses palpable ?ADRIÁN drain c/d/i EXTREMITIES: Extensive bruising, LLE wrapped NEURO: Grossly normal cognition, motor function, DATA: Diagnostic tests reviewed for today's visit: Most recent labs and imaging results. CBC, Coags, BMP, Mg, Phos Recent Labs 10/15/17 2236 10/14/17 0510 WBC 12.59* 10.24* HB 8.2* 7.8* HCT 27.0* 25.3* PLT 284 268 NA 139 139 K 5.0 4.3 CHLOR 107 108* CO2 29 27 BUN 21* 17 CREAT 1.36* 0.95 GLUC 132* 97 CA 8.7 8.5 Assessment/Plan 1. ?Intra-abdominal Abscess 2/2 Complicated Diverticulitis - Rx?with ADRIÁN drain and on meropenem in-house. ?Patient refuses PICC line and IV anti-biotics despite d/w me and ID. ?Cx growing Klebsiella, Clostridium, Yeast, and unknown GPC, and ?ID changed abx to Augmentin, Cipro, and Fluconazole. ?Rx for at least 4 weeks and through resolution of abscess. ?Abscessogram not able to be performed due to insurance reasons at [place], d/w patient, and she would prefer to still go to [place] and get CT scan only even though the study is not as good. ?F/U with ID one month. ? 2. ?Acute LLE hematoma - large, evaluated by Plastics and non-operative mgmt being pursued. ? 3. ?Hypercoag State with Mult DVT/PE - currently on once daily therapeutic Lovenox ? 4. ?A/C Blood Loss Anemia - 2/ #2. ?Stable H/H, follow. ? 5. ?CKD stage 3-stable 6.Deconditioning-PT,OT Medication and Non-Pharmacologic VTE Prophylaxis/Anticoagulants Anticoagulant AND Antiplatelet Medications Start Dose Route Frequency Ordered Stop 10/14/17 0000 enoxaparin (LOVENOX) 80 mg/0.8 mL syrg 1 mg/kg/dose SUBCUTANEOUS EVERY 24 HOURS 10/14/17 1443 -- 10/11/17 1800 enoxaparin 70 mg injection (LOVENOX) 1 mg/kg/dose SUBCUTANEOUS EVERY 24 HOURS 10/11/17 1736 -- 10/08/17 2300 vte non-pharmacologic prophylaxis - none indicated (va,mo) 10/08/17 2300 vte current anticoag therapy (va,mo) Disposition: SNF,pending precert Plan of care discussed with: Patient and RN SIGNATURE: Patsy Kirby MD PATIENT NAME: Dia Mccullough DATE: October 16, 2017 TIME: 10:00 PM PAGER/CONTACT #: monica castano [phone] Mal Zavala MD 10/17/2017 4:36 PM Signed INTERNAL MEDICINE PROGRESS NOTE SERVICE DATE: 10/17/2017 SERVICE TIME: 09 Subjective Pt doing okay. Still has dry cough, since she was diagnosed with clots. Has been taking robitussin. Current Facility-Administered Medications: [MAR Hold due to Transfer] melatonin 3 mg tab(s) 3 mg ORAL AT BEDTIME [MAR Hold due to Transfer] amoxicillin-clavulanic acid 875 mg tab(s) (AUGMENTIN) 875 mg ORAL q 12 H [MAR Hold due to Transfer] ciprofloxacin HCl 500 mg tab(s) (CIPRO) 500 mg ORAL q 12 H [MAR Hold due to Transfer] fluconazole 400 mg tab(s) (DIFLUCAN) 400 mg ORAL DAILY [MAR Hold due to Transfer] acetaminophen 650 mg tab(s) (TYLENOL) 650 mg ORAL q 4 H PRN [MAR Hold due to Transfer] iv contrast (radiology procedure) INTRAVENOUS DIRECTED PRN [JUL Hold due to Transfer] enoxaparin 70 mg injection (LOVENOX) 1 mg/kg/dose SUBCUTANEOUS q 24 HR [MAR Hold due to Transfer] HYDROcodone 5 mg - acetaminophen 325 mg tablet (NORCO) 1 tablet ORAL q 4 H PRN [MAR Hold due to Transfer] polyethylene glycol 3350 17 g packet (MIRALAX, GLYCOLAX) 17 g ORAL DAILY [MAR Hold due to Transfer] metoprolol tartrate (short acting) 25 mg tab(s) (LOPRESSOR) 25 mg ORAL q 12 H [MAR Hold due to Transfer] acetaminophen 650 mg tab(s) (TYLENOL) 650 mg ORAL q 6 H PRN [MAR Hold due to Transfer] ondansetron orally disintegrating 4 mg tab(s) (ZOFRAN ODT) 4 mg ORAL q 6 H PRN [MAR Hold due to Transfer] predniSONE 5 mg tab(s) (DELTASONE) 5 mg ORAL BID PC [MAR Hold due to Transfer] predniSONE 2.5 mg tab(s) (DELTASONE) 2.5 mg ORAL DAILY wDINNER [MAR Hold due to Transfer] pantoprazole DR 40 mg tab(s) (PROTONIX) 40 mg ORAL DAILY (6 AM) [MAR Hold due to Transfer] saliva substitute combo no.9 15 mL (BIOTENE mouthwash) 15 mL MUCOUS MEMBRANE (TOPICAL MOUTH AND THROAT) 5X/DAY [MAR Hold due to Transfer] benzocaine-menthol 1 Lozenge (CEPACOL) 1 Lozenge MUCOUS MEMBRANE (TOPICAL MOUTH AND THROAT) q 2 H PRN [MAR Hold due to Transfer] 0.9% NaCl 3-5 mL 3-5 mL INTRAVENOUS q 12 H [MAR Hold due to Transfer] lactated ringers infusion 100 mL/hr INTRAVENOUS CONTINUOUS [MAR Hold due to Transfer] guaiFENesin 200 mg oral liquid (ROBITUSSIN) 200 mg ORAL QID Objective PHYSICAL EXAM: Patient Vitals for the past 24 hrs: BP Temp Temp src Pulse Resp SpO2 10/17/17 0813 147/81 36.9 ?C (98.4 ?F) Temporal Art 108 18 100 % 10/17/17 0324 160/77 36.3 ?C (97.3 ?F) Temporal Art 100 16 100 % 10/16/172004 139/71 36.7 ?C (98.1 ?F) Oral 113 18 98 % 10/16/17 1602 115/63 36.9 ?C (98.4 ?F) Oral 107 18 98 % Body mass index is 30.44 kg/m?. GENERAL: Alert, no distress, cooperative LUNGS: Lungs clear to auscultation. Good diaphragmatic excursion. CARDIAC: Normal S1 and S2; no rubs, murmurs, or gallops ABDOMEN: abd soft, adrián drain NEURO: Alert, oriented X 3 DATA: Diagnostic tests reviewed for today's visit: Component Latest Ref Rng AND Units 10/17/2017 WBC 3.98 - 10.04 thou/cmm 10.63 (H) RBC 3.93 - 5.22 mil/cmm 2.82 (L) HGB 11.2 - 15.7 g/dL 9.0 (L) Hematocrit 34.1 - 44.9 % 29.3 (L) MCV 79.4 - 94.8 fl 103.9 (H) MCH 25.6 - 32.2 pg 31.9 MCHC 31.6 - 34.8 % 30.7 (L) RDW 11.7 - 14.4 % 20.8 (H) RDW-SD 36.4 - 46.3 fl 78.7 (H) Platelet Count 182 - 369 thou/cmm 349 MPV 9.4 - 12.3 fl 9.3 (L) Seg Neutrophil % 76.8 Immature Grans % 2.60 Lymphocyte % 13.1 Monocyte % 6.5 Eosinophil % 0.8 Basophil % 0.2 Abs. Neut(Anc) 1.56 - 6.13 thou/cmm 8.16 (H) Immature Grans # 0.00 - 0.05 thou/cmm 0.28 (H) Abs. Lymph 1.18 - 3.74 thou/cmm 1.39 Abs. Greene 0.27 - 0.70 thou/cmm 0.69 Abs. Eosin 0.00 - 0.31 thou/cmm 0.09 Abs. Baso 0.01 - 0.08 thou/cmm 0.02 Sodium 136 - 145 mEq/L 140 Potassium 3.5 - 5.1 mEq/L 4.3 Chloride 98 - 107 mEq/L 108 (H) CO2 21 - 32 mEq/L 29 Glucose 70 - 99 mg/dL 114 (H) BUN 7 - 18 mg/dL 24 (H) Creatinine 0.51 - 0.95 mg/dL 1.23 (H) Calcium 8.5 - 10.1 mg/dL 8.8 Anion Gap 8 - 16 7 (L) eGFR >60mL/min/1.73m2 42.20 Culture smear 10/01/17 Component Performing Lab Cult AND Smr KATHLEEN AND AER (Abnormal) (Final) [facility] Moderate Mixed anaerobic lara. No further identification to follow. Plates will be held for 5 days. Smear Gram Stain (Final) [facility] Many WBC Few Gram negative bacilli Few Gram positive cocci Cult AND Smr KAHTLEEN AND AER (Final) [facility] Klebsiella pneumoniae Few Cult AND Smr KATHLEEN AND AER (Final) [facility] Khadijah albicans Moderate Cult AND Smr KATHLEEN AND AER (Final) [facility] Clostridium perfringens Many Assessment/Plan Intra abd acess 2/2 complicated diverticulitis: -Pt refuses iv abx, picc -Per id recs: augmentin, cipo, fluconzole for 4 wk -s/p abscessogram this am with cathetor in place. Repeat in 1-2wk -Need outpt scope per surgery recs. 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 Will start today and inr check. Goal of 2--3. DIscussed can cause bleeeding. Pt is on 2mg at home, start at this dose. ANemia: -hgb stable, monitor CKD3: -stable, monitor Addisons: -cont prednisone To [facility] at [facility]. 4 wk of po abx. ID f/u in 4 wk. Cont to monitor cough, if fever or wbc check cxr. Consult: plastic, surgery, ID, heme onc, Mal Zavala MD October 17, 2017 4:36 PM SIGNATURE: Mal Zavala MD PATIENT NAME: Dia Mccullough DATE: October 17, 2017 TIME: 9:57 AM PAGER/CONTACT #: [phone] Rain Hung MD 10/17/2017 10:14 AM Signed INTERVENTIONAL RADIOLOGY POST PROCEDURE NOTE DATE: 10/17/17 NAME: Dia Mccullough LOG ID: [id number] Pre-Procedure Diagnosis: Pelvic abscess, likely 2/2 ruptured diverticulitis, s/p percutaneous drain placement Post Procedure Diagnosis: Same. Cooker Meal: Dr. Rain Hung Procedure: Fluoroscopic guided abscessogram Anesthesia: None Findings: Small residual abscess cavity with fistulous communication to sigmoid colon. Drainage catheter left in placed, plan for repeat abscessogram in 1-2 weeks. Estimated Blood Loss: Minimal (Less Than 25 mL). Specimen: None Complications: None Full report with procedural details to follow and will become available under Imaging Reports. Please contact for any questions or concerns. SIGNATURE: Rain Hung MD PATIENT NAME: Dia Mccullough DATE: October 17, 2017 TIME: 10:13 AM PAGER/CONTACT #: Becca Baptiste RN, RN 10/17/2017 11:00 AM Signed [facility] NURSE PROGRESS NOTE SERVICE DATE: 10/17/2017 SERVICE TIME: 10:58 AM REFERRED BY: Follow Up VISIT WITH: Patient REASON FOR VISIT: Coping issues and Serious illness/trauma CONDITION: Hematology/Oncology and Neuromuscular INTERVENTIONS: Emotional support and Therapeutic listening TIME SPENT (minutes): 30 Pt states she will go to ECF. Encouragement and reassurance Given. SIGNATURE: Becca Baptiste RN PATIENT NAME: Dia Mccullough DATE: October 17, 2017 TIME: 10:58 AM Kaelyn Hugo RN, RN 10/17/2017 11:06 AM Signed CARE MANAGEMENT PROGRESS NOTE SERVICE DATE: 10/17/2017 SERVICE TIME: 1105 LOS: 6 days Chart reviewed. [employer] requesting updated PT/OT evals for pre-cert approval. Paged PT - Khai who states that Nadege will eval patient today. Anticipate d/c to [facility] once pre-cert approved. SIGNATURE: Kaelyn Hugo RN PATIENT NAME: Dia Mccullough DATE: October 17, 2017 TIME: 11:05 AM PAGER/CONTACT #: [phone] Kaeyln Hugo RN, RN 10/17/2017 11:21 AM Signed CARE MANAGEMENT PROGRESS NOTE SERVICE DATE: 10/17/2017 SERVICE TIME: 1118 LOS: 6 days Spoke with patient at bedside. Patient does not want to wait for insurance approval for long-term facility. She states that if insurance doesn't approve SNF today then she will just go home. Educated patient on importance of following physical therapy's recommendations for [facility] placement. Patient not agreeable to that plan. Requesting home physical therapy services. Referral sent to S. SIGNATURE: Kaelyn Hugo RN PATIENT NAME: Dia Mccullough DATE: October 17, 2017 TIME: 11:18 AM PAGER/CONTACT #: [phone] Misael Wei MD 10/17/2017 12:51 PM Signed INFECTIOUS DISEASE CONSULT PROGRESS NOTE SERVICE DATE: 10/17/2017 SERVICE TIME: 12:44 PM Subjective INTERVAL HISTORY / PERTINENT Review of Systems Constitutional: Negative for chills and fever. Gastrointestinal: Negative for abdominal pain, diarrhea and vomiting. Tolerating po atbs. Current Facility-Administered Medications: melatonin 3 mg tab(s) 3 mg ORAL AT BEDTIME HYDROcodone 5 mg - acetaminophen 325 mg tablet (NORCO) 1 tablet ORAL q 4 H PRN amoxicillin-clavulanic acid 875 mg tab(s) (AUGMENTIN) 875 mg ORAL q 12 H ciprofloxacin HCl 500 mg tab(s) (CIPRO) 500 mg ORAL q 12 H fluconazole 400 mg tab(s) (DIFLUCAN) 400 mg ORAL DAILY acetaminophen 650 mg tab(s) (TYLENOL) 650 mg ORAL q 4 H PRN iv contrast (radiology procedure) INTRAVENOUS DIRECTED PRN enoxaparin 70 mg injection (LOVENOX) 1 mg/kg/dose SUBCUTANEOUS q 24 HR polyethylene glycol 3350 17 g packet (MIRALAX, GLYCOLAX) 17 g ORAL DAILY metoprolol tartrate (short acting) 25 mg tab(s) (LOPRESSOR) 25 mg ORAL q 12 H ondansetron orally disintegrating 4 mg tab(s) (ZOFRAN ODT) 4 mg ORAL q 6 H PRN predniSONE 5 mg tab(s) (DELTASONE) 5 mg ORAL BID PC predniSONE 2.5 mg tab(s) (DELTASONE) 2.5 mg ORAL DAILY wDINNER pantoprazole DR 40 mg tab(s) (PROTONIX) 40 mg ORAL DAILY (6 AM) saliva substitute combo no.9 15 mL (BIOTENE mouthwash) 15 mL MUCOUS MEMBRANE (TOPICAL MOUTH AND THROAT) 5X/DAY benzocaine-menthol 1 Lozenge (CEPACOL) 1 Lozenge MUCOUS MEMBRANE (TOPICAL MOUTH AND THROAT) q 2 H PRN 0.9% NaCl 3-5 mL 3-5 mL INTRAVENOUS q 12 H lactated ringers infusion 100 mL/hr INTRAVENOUS CONTINUOUS guaiFENesin 200 mg oral liquid (ROBITUSSIN) 200 mg ORAL QID Objective PHYSICAL EXAM: Vital Signs: BP 147/81 Pulse 108 Temp 36.9 ?C (98.4 ?F) (Temporal Artery) Resp 18 Ht 152.4 cm (5') Wt 70.7 kg (155 lb 13.8 oz) SpO2 100% BMI 30.44 kg/m? Physical Exam Abdominal: There is tenderness (improving, now only mild around drain insertion site.). Doyle cloudy purulent fluid in drain. DATA: Diagnostic Tests Reviewed for Today's Visit: Most recent labs and imaging results. Abscessogram- size of abscess decreasing, communication with sigmoid colon identified. Micro: No new data Recent Labs 10/17/17 0336 10/15/17 2236 WBC 10.63* 12.59* HB 9.0* 8.2* HCT 29.3* 27.0* PLT 349 284 NEUTNUM 8.16* 10.40* CREAT 1.23* 1.36* No results found for: GEOVANY Impression/Recommendations Principal Problem: Intra-abdominal abscess (HCC) POA: Yes Assessment AND Plan: Polymicrobial, from sigmoid perf. Informed pt, she was under the impression that communication with sigmoid is a good thing. I discussed potential complications of perforated sigmoid and ongoing leak with her. She is still not willing to discuss any surgical intervention. Continue current po atbs until abscess resolved. CKD (chronic kidney disease) stage 3, GFR 30-59 ml/min POA: Yes Assessment AND Plan: current atb doses ok. Resolved Problems: * No resolved hospital problems. * SIGNATURE: Misael Wei MD PATIENT NAME: Dia Mccullough DATE: October 17, 2017 TIME: 12:44 PM PAGER/CONTACT #: [phone] Nadege Hansen PTA 10/17/2017 3:33 PM Attested Attestation signed by Carlos Enrique (Pt) Justin at 10/17/2017 3:59 PM I reviewed and agree with the documentation corresponding to this therapy visit. SIGNATURE: Carlos Enrique Anderson, PT DATE: October 17, 2017 TIME: 3:59 PM Physical Therapy Treatment SERVICE DATE: 10/17/2017 SERVICE TIME: 1445 to 1508 ROOM: [id number] Recommended Discharge Disposition: Subacute/SNF Justification For Post Acute Needs: Anticipate that patient will require daily (5x/wk) skilled therapy in a post-acute facility setting at the time of acute hospital discharge PT Recommendations to Nursing: Ambulate with device;Transfer to/from chair;OOB for Meals;With assist of 1 person Device: Wheeled Walker PT 6 Clicks Score: 16 Precautions/Activity Restrictions: Fall Risk Isolation Type: None ASSESSMENT :Patient Disposition at Start of Session: Supine in Bed Patient Disposition at End of Session: Supine in Bed;Call Suggs in Reach Tolerance Limited By Fatigue;Pain Patient making progress toward goals but still in need of assist to prevent fall risk with mobility. If adamant for discharge to home, will need assist with meals, bathing, and transfers. Physical Therapy Problem List: Education Deficit;Safety Deficits;Decreased Activity Tolerance;Decreased Strength;Functional Mobility Impairment;Balance Impaired Patient /Caregiver Goals: Go Home Goals for Plan of Care: Transfer supine to/from sit with: Stand By Assistance Transfer sit to/from stand with: Stand By Assistance Ambulate with: Stand By Assistance Distance: 40 ft intervals Device: Wheeled Walker Goal: Complete 15x2 general LE strength exercises Progress Toward Goals: Progressing as expected Rehab Potential: Good PLAN: Treatment Frequency (times per week): 5 (1-5) Current admission Treatment Interventions: Education;Strengthening;Functional Mobility Training;Balance Training Plan of Care developed with: Patient TREATMENT INTERVENTIONS: Therapy Diagnosis: Reduced mobility-other;Muscle Weakness (generalized);Unsteadiness on feet;Abnormalities of gait and mobility-other Interventions Provided: Therapeutic Exercise (05437);Therapeutic Activity (37079) Therapeutic Exercise (42145) Treatment Minutes: 13 1 unit Skilled Intervention(s): Instruction in General strenght program: ankle pump, quad set, glute set, adductor set, hip abduction/adduction, heel slide, short arc quad, long arc quad 2 x 10 reps with both legs. Verbal and tactile cuing provided for proper alignment and technique. Therapeutic Activity (55104) Treatment Minutes: 10 1 unit Skilled Intervention(s): Instructed patient in supine to and from sit pushing with upper extremities to sit up from flat bed. Patient using upper extremities to assist with legs. Instruction in sit to and from stand technique with proper hand placement and body positioning at edge of bed/chair. Patient completed 3 trials with cues for rocking method. Transfers, 1/2 stand pivot bed to/from bed side commode with min/contact guard assist. Stand pivot with wheel walker non weight bearing left leg with slow unsteady pace and decrease in foot clearance. Total Timed Code Treatment Minutes: 23 Total Treatment Time (minutes): 23 SUBJECTIVE: Current Hospital Course: Chart reviewed and no significant medical updates relevant to therapy were noted Reason for Physical Therapy Consult : weakness Relevant Past Medical History: Curry's, CKD, DVT/PE, fibromyalgia, HTN, R hip endo 2013 back sx, Patient Report: Has increase throbbing pain to left lower extremity when in dependent position. Home Environment Patient Lives With: Self/Alone Assistance Available: time study statistician (Dtr nearby) Entry To Home: No Stairs Tub/Shower Type: walk in shower with seat Laundry: on main floor Equipment Owned: Grab Bars-Shower;Wheeled Walker;Cane;Shower Chair (transport W/C?) Prior Functional Level: Required Assistance Assistance Required With: Laundry;Cleaning;Shopping;Transportation (Dtr assists with IADLs since return home for about 1 week) Prior Functional Level Comments: Pt was at hospice, get better, went to rehab and has been at home for a week. Now developed L LE hematoma. OBJECTIVE: CURRENT FUNCTIONAL STATUS: Current Functional Mobility Assist Level Additional Information Rolling Supine to Sit Contact Guard Assistance Sit to Supine Contact Guard Assistance Scooting Contact Guard Assistance Sit to Stand Minimal Assistance Stand to Sit Minimal Assistance Bed to Chair Minimal Assistance Toilet/Commode Gait Minimal Assistance Gait Device: Wheeled Walker Gait Distance (feet): 2 x 3-4 Stairs Curb Step Car Transfer Gait Deviations Left Lower Extremity: Weight bearing decreased General Gait Deviations: Lauryn decreased;Step length decreased;Flexed trunk posture;Shuffling Gait Please see discipline specific clinical documentation flowsheet for complete details for this therapy evaluation/treatment. SIGNATURE: Nadege Hansen PTA PATIENT NAME: Dia Mccullough DATE: October 17, 2017 TIME: 3:16 PM PAGER/CONTACT #: [phone] Kaelny Hugo RN, RN 10/17/2017 4:17 PM Signed CARE MANAGEMENT PROGRESS NOTE SERVICE DATE: 10/17/2017 SERVICE TIME: 1615 LOS: 6 days Spoke with patient and patient's son. Patient would now like to proceed with placement at SNF. Sent updated PT noted per tna's request. Awaiting pre-cert approval. Anticipate approval tomorrow. SIGNATURE: Kaelyn Hugo RN PATIENT NAME: Dia Mccullough DATE: October 17, 2017 TIME: 4:16 PM PAGER/CONTACT #: [phone] Kaelyn Hugo RN, RN 10/18/2017 10:32 AM Signed CARE MANAGEMENT PROGRESS NOTE SERVICE DATE: 10/18/2017 SERVICE TIME: 1031 LOS: 7 days Chart reviewed. Received auth from [facility]. Transport arranged for 1 pm via [facility]. Patient and patient's son agreeable with plan. RN notified. SIGNATURE: Kaelyn Hugo RN PATIENT NAME: Dia Mccullough DATE: October 18, 2017 TIME: 10:31 AM PAGER/CONTACT #: [phone] Erika Mckeon MD, 10/18/2017 7:59 PM Signed DISCHARGE SUMMARY PATIENT NAME: Dia Mccullough ADMISSION DATE: 10/08/2017 DISCHARGE DATE: 10/18/2017 ATTENDING PHYSICIAN: No att. providers found REASON FOR HOSPITALIZATION: Intraabdominal abscess DISCHARGE DIAGNOSES 1. Intra abd abscess 2/2 complicated diverticulitis: 2. Sigmoid diverticulitis 3. Recent hx of DVT and PE 4. LLE Hematoma: ? 5. Anemia 6. CKD stage 3 7. Curry's disese CONSULTATION TEAMS DURING HOSPITALIZATION: ID, OPERATIONS DURING HOSPITALIZATION: None PROCEDURES DURING HOSPITALIZATION: No procedures performed HOSPITAL COURSE: 77 yrs old female who was admitted on 10/11/2017 for abd pain, N+/V+, she left leg hematoma, and intraabdominal abscess which is from acute sigmoid diverticulitis. She was started on broad spectrum antibiotics of Meropenum and ID, Surgery, Hemo/Oncology are consulted. She underwent abscessogram ADRIÁN catheter placed, her abdominal pain, nausea and vomiting symptoms are resolved, she refused PICC and iv antibiotics, so ID recommended po cipro+Augmentin; regarding DVT/PE, she used to be on coumadin,but developed hematoma, so she was switched to sq Lovenox; other chronic medical condition are stable, renal function at baseline. She will needs outpatient colonoscopy as per surgery recommendation. PT/OT evaluated her, she is to be discharged to SNF in stable improved condition. Discharge Physical Exam: VITAL SIGNS: BP 126/73 Pulse 98 Temp 36 ?C (96.8 ?F) (Temporal Artery) Resp 18 Ht 152.4 cm (5') Wt 70.7 kg (155 lb 13.8 oz) SpO2 99% BMI 30.44 kg/m? GENERAL: Alert, no distress, cooperative HEENT: PERRLA, EOMI LUNGS: Lungs clear to auscultation. Good diaphragmatic excursion. CARDIAC: Normal S1 and S2; no rubs, murmurs, or gallops ABDOMEN: abd soft, adrián drain NEURO: Alert, oriented X 3 ? PATIENT CONDITION @ Discharge: Fair DISCHARGE MEDICATIONS: Discharge Medication List as of 10/14/2017 2:43 PM START taking these medications fluconazole (DIFLUCAN) 200 mg tablet Take 2 tablets by mouth once daily.Med Update metoprolol tartrate, short acting, (LOPRESSOR) 25 mg tablet Take 1 tablet by mouth every 12 hours.Med Update, Long-term polyethylene glycol 3350 (MIRALAX, GLYCOLAX) 17 gram packet Take 1 Packet by mouth once daily.Med Update HYDROcodone-acetaminophen (NORCO) 5-325 mg per tablet Take 1 tablet by mouth every 4 hours as needed for up to 5 days.Med Update, R-0Dx: 1. Leg hematoma, left, initial encounter 2. Intra-abdominal abscess (HCC) amoxicillin-clavulanic acid (AUGMENTIN) 875-125 mg per tablet Take 1 tablet by mouth twice daily.Med Update ciprofloxacin HCl (CIPRO) 500 mg tablet Take 1 tablet by mouth twice daily.Med Update CONTINUE these medications which have CHANGED enoxaparin (LOVENOX) 80 mg/0.8 mL syrg Inject 0.7 mL subcutaneously q 24 HR.Med Update CONTINUE these medications which have NOT CHANGED !! predniSONE (DELTASONE) 2.5 mg tablet Take 2.5 mg by mouth daily before dinner.Historical Med Omeprazole 40 mg capsule Take 40 mg by mouth once daily.Historical Med !! predniSONE (DELTASONE) 5 mg tablet Take 5 mg by mouth twice daily. Historical Med ondansetron orally disintegrating (ZOFRAN ODT) 4 mg disintegrating tablet Take 1 tablet by mouth every 6 hours as needed for Nausea/Vomiting.Normal, Disp-24 tablet, R-0 !! - Potential duplicate medications found. Please discuss with provider. STOP taking these medications hydrochlorothiazide (HYDRODIURIL, ESIDRIX) 25 mg tablet Comments: Reason for Stopping: DISCHARGE DISPOSITION: [facility] FOLLOW-UP APPOINTMENTS ALREADY SCHEDULED WITH A [facility] PROVIDER No future appointments. TIME OF CARE: Discharge Management: I personally spent greater than 30 minutes involved in the discharge management of this patient. SIGNATURE: Erika Mckeon MD PAGER/CONTACT #: DATE: October 18, 2017 TIME: 7:36 PM CBC W/DIFF, AUTOMATED Collected: 10/19/2017 Status: F Source: [facility] 12:00 AM [facility] [place] REPOSITORY Order Comment: RESULT(S) PREVIOUSLY REPORTED ON MANUAL REQUISITION DURING DOWNTIME. TYPE CODE TESTS RESULT OUT OF RANGE REFERENCE UNITS LAB L100.1000 4.4-11.0 K/mm3 Normal WBC 10.9 LAB L100.1200 4.2-5.4 M/mm3 Low RBC 2.96 LAB L100.1300 12.0-15.0 g/dl Low HGB 9.2 LAB L100.1400 37-47 % Low HCT 29.9 LAB L100.1500 81-99 fL High MCV 101.0 LAB L100.1600 27.0-32.0 pg Normal MCH 31.1 LAB L100.1700 32-36 g/gl Low MCHC 30.8 LAB L100.1810 11.6-14.6 % High RDW CV 20.4 LAB L100.1820 35.1-43.9 fl High RDW SD 74.7 LAB L100.1900 150-450 K/mm3 Normal PLT 440 LAB L100.2000 6.2-12.0 fl Normal MPV 9.3 LAB L100.2100 47-70 % High NEUT% 76.6 LAB L100.2200 19-41 % Low LY% 14.8 LAB L100.2300 0-10 % Normal MONO% 6.8 LAB L100.2400 0-5 % Normal EO% 0.6 LAB L100.2500 0-1 % Normal BASO% 0.1 LAB L100.2550 0.0-0.9 % High IM GRAN % 1.100 Result Comment: IG% - Immature Granulocytes (promyelocytes, myelocytes and metamyelocytes) > 1% indicates that a LEFT SHIFT is Present. LAB L100.2620 2.0-7.7 X10 3/uL High Absolute Neut 8.4 LAB L100.2720 0.83-4.51 X10 3/ul Normal Absolute Lymph 1.61 LAB L100.4500 Normal SMEAR COMMENT SCANNED Result Comment: 1+ ANISOCYTOSIS RARE POLYCHROMASIA 1+ HYPOCHROMASIA Performed By: #### L100.0100 #### [facility] [address], [place], [id number] PROTHROMBIN TIME W/INR Collected: 10/19/2017 Status: F Source: ANNMARIE 12:00 AM [facility] REPOSITORY Order Comment: RESULT(S) PREVIOUSLY REPORTED ON MANUAL REQUISITION DURING DOWNTIME. TYPE CODE TESTS RESULT OUT OF RANGE REFERENCE UNITS LAB L300.4150 11.7-14.9 SECONDS High PROTIME 15.2 LAB L300.4200 Normal INR 1.2 Performed By: #### L300.3900 #### [facility] [address], [place], [address] BASIC METABOLIC Collected: 10/19/2017 Status: F Source: ANNMARIE PROFILE (BMP) 12:00 AM [facility] REPOSITORY Order Comment: RESULT(S) PREVIOUSLY REPORTED ON MANUAL REQUISITION DURING DOWNTIME. TYPE CODE TESTS RESULT OUT OF RANGE REFERENCE UNITS LAB L501.0100 74-106 mg/dL Normal GLU 95 Result Comment: Please note revised GLUCOSE reference range effective 2017. LAB L501.1000 7-18 mg/dL High BUN 30 LAB L501.1100 0.55-1.02 mg/dL High CREAT,SERUM 1.18 Result Comment: The validity of the calculated GFR AND GFRAA in patients over 70 years has not been determined. Clinical correlation is essential. LAB L501.1110 >60 mL/min Low EST GFR 47 LAB L501.1115 >60 mL/min Low EST GFR - AA 57 LAB L501.1300 10-20 RATIO High BUN/CRE 25.4 LAB L501.2200 8.5-10.1 mg/dL Normal CA 8.8 LAB L501.5300 136-145 mmol/L Normal NA 142 LAB L501.5600 3.5-5.1 mmol/L Normal K 4.3 LAB L501.5900 98-107 mmol/L High CL 110 LAB L501.6100 21.0-32.0 mmol/L Normal CO2 23.0 LAB L501.6200 5-15 Normal GAP 9 Performed By: #### L500.2500 #### [facility] [address] [place] [address]. [place], [place], [id number] CNDS Observed: 10/18/2017 Status: COMPLETED Source: ARVIN 1:30 PM CLINIC OTHER CAMPUS REPOSITORY HNO ID: [id number] Author: Erika Mckeon MD Service: Hospital Medicine Author Type: Physician Type: Discharge Summaries Filed: 10/18/2017 7:59 PM Note Text: DISCHARGE SUMMARY PATIENT NAME: Dia Mccullough ADMISSION DATE: 10/08/2017 DISCHARGE DATE: 10/18/2017 ATTENDING PHYSICIAN: No att. providers found REASON FOR HOSPITALIZATION: Intraabdominal abscess DISCHARGE DIAGNOSES 1. Intra abd abscess 2/2 complicated diverticulitis: 2. Sigmoid diverticulitis 3. Recent hx of DVT and PE 4. LLE Hematoma: ? 5. Anemia 6. CKD stage 3 7. Curry's disese CONSULTATION TEAMS DURING HOSPITALIZATION: ID, OPERATIONS DURING HOSPITALIZATION: None PROCEDURES DURING HOSPITALIZATION: No procedures performed HOSPITAL COURSE: 77 yrs old female who was admitted on 10/11/2017 for abd pain, N+/V+, she left leg hematoma, and intraabdominal abscess which is from acute sigmoid diverticulitis. She was started on broad spectrum antibiotics of Meropenum and ID, Surgery, Hemo/Oncology are consulted. She underwent abscessogram ADRIÁN catheter placed, her abdominal pain, nausea and vomiting symptoms are resolved, she refused PICC and iv antibiotics, so ID recommended po cipro+Augmentin; regarding DVT/PE, she used to be on coumadin,but developed hematoma, so she was switched to sq Lovenox; other chronic medical condition are stable, renal function at baseline. She will needs outpatient colonoscopy as per surgery recommendation. PT/OT evaluated her, she is to be discharged to SNF in stable improved condition. Discharge Physical Exam: VITAL SIGNS: BP 126/73 Pulse 98 Temp 36 ?C (96.8 ?F) (Temporal Artery) Resp 18 Ht 152.4 cm (5') Wt 70.7 kg (155 lb 13.8 oz) SpO2 99% BMI 30.44 kg/m? GENERAL: Alert, no distress, cooperative HEENT: PERRLA, EOMI LUNGS: Lungs clear to auscultation. Good diaphragmatic excursion. CARDIAC: Normal S1 and S2; no rubs, murmurs, or gallops ABDOMEN: abd soft, adrián drain NEURO: Alert, oriented X 3 ? PATIENT CONDITION @ Discharge: Fair DISCHARGE MEDICATIONS: Discharge Medication List as of 10/14/2017 2:43 PM START taking these medications fluconazole (DIFLUCAN) 200 mg tablet Take 2 tablets by mouth once daily.Med Update metoprolol tartrate, short acting, (LOPRESSOR) 25 mg tablet Take 1 tablet by mouth every 12 hours.Med Update, Long-term polyethylene glycol 3350 (MIRALAX, GLYCOLAX) 17 gram packet Take 1 Packet by mouth once daily.Med Update HYDROcodone-acetaminophen (NORCO) 5-325 mg per tablet Take 1 tablet by mouth every 4 hours as needed for up to 5 days.Med Update, R-0Dx: 1. Leg hematoma, left, initial encounter 2. Intra-abdominal abscess (HCC) amoxicillin-clavulanic acid (AUGMENTIN) 875-125 mg per tablet Take 1 tablet by mouth twice daily.Med Update ciprofloxacin HCl (CIPRO) 500 mg tablet Take 1 tablet by mouth twice daily.Med Update CONTINUE these medications which have CHANGED enoxaparin (LOVENOX) 80 mg/0.8 mL syrg Inject 0.7 mL subcutaneously q 24 HR.Med Update CONTINUE these medications which have NOT CHANGED !! predniSONE (DELTASONE) 2.5 mg tablet Take 2.5 mg by mouth daily before dinner.Historical Med Omeprazole 40 mg capsule Take 40 mg by mouth once daily.Historical Med !! predniSONE (DELTASONE) 5 mg tablet Take 5 mg by mouth twice daily. Historical Med ondansetron orally disintegrating (ZOFRAN ODT) 4 mg disintegrating tablet Take 1 tablet by mouth every 6 hours as needed for Nausea/Vomiting.Normal, Disp-24 tablet, R-0 !! - Potential duplicate medications found. Please discuss with provider. STOP taking these medications hydrochlorothiazide (HYDRODIURIL, ESIDRIX) 25 mg tablet Comments: Reason for Stopping: DISCHARGE DISPOSITION: [facility] FOLLOW-UP APPOINTMENTS ALREADY SCHEDULED WITH A [facility] PROVIDER No future appointments. TIME OF CARE: Discharge Management: I personally spent greater than 30 minutes involved in the discharge management of this patient. SIGNATURE: Erika Mckeon MD PAGER/CONTACT #: DATE: October 18, 2017 TIME: 7:36 PM CASE MANAGEM Observed: 10/18/2017 Status: COMPLETED Source: ARV[place] 10:31 AM CLINIC OTHER CAMPUS REPOSITORY HNO ID: [id number] Author: Kaelyn (Rn) JANET Hugo Service: Care Management Author Type: Registered Nurse Type: Care Mgt Progress Note Filed: 10/18/2017 10:32 AM Note Text: CARE MANAGEMENT PROGRESS NOTE SERVICE DATE: 10/18/2017 SERVICE TIME: 1031 LOS: 7 days Chart reviewed. Received auth from [facility]. Transport arranged for 1 pm via [facility]. Patient and patient's son agreeable with plan. RN notified. SIGNATURE: Kaelyn Hugo RN PATIENT NAME: Dia Mccullough DATE: October 18, 2017 TIME: 10:31 AM PAGER/CONTACT #: [phone] PROTIME Collected: 10/18/2017 Status: F Source: [facility] 6:20 AM HEALTH SYSTEM REPOSITORY TYPE CODE TESTS RESULT OUT OF REFERENCE UNITS RANGE LAB PTI(LOINC) 9.3-11.9 sec Prothrombin Time 10.4 LAB INR(LOINC) INR 0.98 Result Comment: Standard Therapy 2.0-3.0 High Dose 2.5-3.5 Performed By: #### PT #### [facility] [address] [address] CASE MANAGEM Observed: 10/17/2017 Status: COMPLETED Source: ARV[place] 4:16 PM [facility] REPOSITORY HNO ID: [id number] Author: Kaelyn Allen) JANET Hugo Service: Care Management Author Type: Registered Nurse Type: Care Mgt Progress Note Filed: 10/17/2017 4:17 PM Note Text: CARE MANAGEMENT PROGRESS NOTE SERVICE DATE: 10/17/2017 SERVICE TIME: 1615 LOS: 6 days Spoke with patient and patient's son. Patient would now like to proceed with placement at SNF. Sent updated PT noted per [employer]'s request. Awaiting pre-cert approval. Anticipate approval tomorrow. SIGNATURE: Kaelyn Hugo RN PATIENT NAME: Dia Mccullough DATE: October 17, 2017 TIME: 4:16 PM PAGER/CONTACT #: [phone] THERAPY NT Observed: 10/17/2017 Status: COMPLETED Source: [place] 3:15 PM [facility] REPOSITORY HNO ID: [id number] Author: Nadege Hansen Service: Physical Therapy Author Type: University Intern Type: Therapy (PT/OT/Speech/Resp) Filed: 10/17/2017 3:33 PM Note Text: Attestation signed by Carlos Enrique Briggs) Justin at 10/17/2017 3:59 PM I reviewed and agree with the documentation corresponding to this therapy visit. SIGNATURE: Carlos Enrique Anderson PT DATE: October 17, 2017 TIME: 3:59 PM Physical Therapy Treatment SERVICE DATE: 10/17/2017 SERVICE TIME: 1445 to 1508 ROOM: [id number] Recommended Discharge Disposition: Subacute/SNF Justification For Post Acute Needs: Anticipate that patient will require daily (5x/wk) skilled therapy in a post-acute facility setting at the time of acute hospital discharge PT Recommendations to Nursing: Ambulate with device;Transfer to/from chair;OOB for Meals;With assist of 1 person Device: Wheeled Walker PT 6 Clicks Score: 16 Precautions/Activity Restrictions: Fall Risk Isolation Type: None ASSESSMENT :Patient Disposition at Start of Session: Supine in Bed Patient Disposition at End of Session: Supine in Bed;Call Suggs in Reach Tolerance Limited By Fatigue;Pain Patient making progress toward goals but still in need of assist to prevent fall risk with mobility. If adamant for discharge to home, will need assist with meals, bathing, and transfers. Physical Therapy Problem List: Education Deficit;Safety Deficits;Decreased Activity Tolerance;Decreased Strength;Functional Mobility Impairment;Balance Impaired Patient /Caregiver Goals: Go Home Goals for Plan of Care: Transfer supine to/from sit with: Stand By Assistance Transfer sit to/from stand with: Stand By Assistance Ambulate with: Stand By Assistance Distance: 40 ft intervals Device: Wheeled Walker Goal: Complete 15x2 general LE strength exercises Progress Toward Goals: Progressing as expected Rehab Potential: Good PLAN: Treatment Frequency (times per week): 5 (1-5) Current admission Treatment Interventions: Education;Strengthening;Functional Mobility Training;Balance Training Plan of Care developed with: Patient TREATMENT INTERVENTIONS: Therapy Diagnosis: Reduced mobility-other;Muscle Weakness (generalized);Unsteadiness on feet;Abnormalities of gait and mobility-other Interventions Provided: Therapeutic Exercise (64556);Therapeutic Activity (42592) Therapeutic Exercise (53873) Treatment Minutes: 13 1 unit Skilled Intervention(s): Instruction in General strenght program: ankle pump, quad set, glute set, adductor set, hip abduction/adduction, heel slide, short arc quad, long arc quad 2 x 10 reps with both legs. Verbal and tactile cuing provided for proper alignment and technique. Therapeutic Activity (68348) Treatment Minutes: 10 1 unit Skilled Intervention(s): Instructed patient in supine to and from sit pushing with upper extremities to sit up from flat bed. Patient using upper extremities to assist with legs. Instruction in sit to and from stand technique with proper hand placement and body positioning at edge of bed/chair. Patient completed 3 trials with cues for rocking method. Transfers, 1/2 stand pivot bed to/from bed side commode with min/contact guard assist. Stand pivot with wheel walker non weight bearing left leg with slow unsteady pace and decrease in foot clearance. Total Timed Code Treatment Minutes: 23 Total Treatment Time (minutes): 23 SUBJECTIVE: Current Hospital Course: Chart reviewed and no significant medical updates relevant to therapy were noted Reason for Physical Therapy Consult : weakness Relevant Past Medical History: Curry's, CKD, DVT/PE, fibromyalgia, HTN, R hip endo 2013 back sx, Patient Report: Has increase throbbing pain to left lower extremity when in dependent position. Home Environment Patient Lives With: Self/Alone Assistance Available: time study statistician (Dtr nearby) Entry To Home: No Stairs Tub/Shower Type: walk in shower with seat Laundry: on main floor Equipment Owned: Grab Bars-Shower;Wheeled Walker;Cane;Shower Chair (transport W/C?) Prior Functional Level: Required Assistance Assistance Required With: Laundry;Cleaning;Shopping;Transportation (Dtr assists with IADLs since return home for about 1 week) Prior Functional Level Comments: Pt was at hospice, get better, went to rehab and has been at home for a week. Now developed L LE hematoma. OBJECTIVE: CURRENT FUNCTIONAL STATUS: Current Functional Mobility Assist Level Additional Information Rolling Supine to Sit Contact Guard Assistance Sit to Supine Contact Guard Assistance Scooting Contact Guard Assistance Sit to Stand Minimal Assistance Stand to Sit Minimal Assistance Bed to Chair Minimal Assistance Toilet/Commode Gait Minimal Assistance Gait Device: Wheeled Walker Gait Distance (feet): 2 x 3-4 Stairs Curb Step Car Transfer Gait Deviations Left Lower Extremity: Weight bearing decreased General Gait Deviations: Lauryn decreased;Step length decreased;Flexed trunk posture;Shuffling Gait Please see discipline specific clinical documentation flowsheet for complete details for this therapy evaluation/treatment. SIGNATURE: Nadege Hansen PTA PATIENT NAME: Dia Mccullough DATE: October 17, 2017 TIME: 3:16 PM PAGER/CONTACT #: [id number] CONSULT PROG Observed: 10/17/2017 Status: COMPLETED Source: ARV[place] 12:44 PM CLINIC OTHER CAMPUS REPOSITORY HNO ID: [id number] Author: Misael Wei Service: Infectious Disease Author Type: Physician Type: Consult Progress Note Filed: 10/17/2017 12:51 PM Note Text: INFECTIOUS DISEASE CONSULT PROGRESS NOTE SERVICE DATE: 10/17/2017 SERVICE TIME: 12:44 PM Subjective INTERVAL HISTORY / PERTINENT Review of Systems Constitutional: Negative for chills and fever. Gastrointestinal: Negative for abdominal pain, diarrhea and vomiting. Tolerating po atbs. Current Facility-Administered Medications: melatonin 3 mg tab(s) 3 mg ORAL AT BEDTIME HYDROcodone 5 mg - acetaminophen 325 mg tablet (NORCO) 1 tablet ORAL q 4 H PRN amoxicillin-clavulanic acid 875 mg tab(s) (AUGMENTIN) 875 mg ORAL q 12 H ciprofloxacin HCl 500 mg tab(s) (CIPRO) 500 mg ORAL q 12 H fluconazole 400 mg tab(s) (DIFLUCAN) 400 mg ORAL DAILY acetaminophen 650 mg tab(s) (TYLENOL) 650 mg ORAL q 4 H PRN iv contrast (radiology procedure) INTRAVENOUS DIRECTED PRN enoxaparin 70 mg injection (LOVENOX) 1 mg/kg/dose SUBCUTANEOUS q 24 HR polyethylene glycol 3350 17 g packet (MIRALAX, GLYCOLAX) 17 g ORAL DAILY metoprolol tartrate (short acting) 25 mg tab(s) (LOPRESSOR) 25 mg ORAL q 12 H ondansetron orally disintegrating 4 mg tab(s) (ZOFRAN ODT) 4 mg ORAL q 6 H PRN predniSONE 5 mg tab(s) (DELTASONE) 5 mg ORAL BID PC predniSONE 2.5 mg tab(s) (DELTASONE) 2.5 mg ORAL DAILY wDINNER pantoprazole DR 40 mg tab(s) (PROTONIX) 40 mg ORAL DAILY (6 AM) saliva substitute combo no.9 15 mL (BIOTENE mouthwash) 15 mL MUCOUS MEMBRANE (TOPICAL MOUTH AND THROAT) 5X/DAY benzocaine-menthol 1 Lozenge (CEPACOL) 1 Lozenge MUCOUS MEMBRANE (TOPICAL MOUTH AND THROAT) q 2 H PRN 0.9% NaCl 3-5 mL 3-5 mL INTRAVENOUS q 12 H lactated ringers infusion 100 mL/hr INTRAVENOUS CONTINUOUS guaiFENesin 200 mg oral liquid (ROBITUSSIN) 200 mg ORAL QID Objective PHYSICAL EXAM: Vital Signs: BP 147/81 Pulse 108 Temp 36.9 ?C (98.4 ?F) (Temporal Artery) Resp 18 Ht 152.4 cm (5') Wt 70.7 kg (155 lb 13.8 oz) SpO2 100% BMI 30.44 kg/m? Physical Exam Abdominal: There is tenderness (improving, now only mild around drain insertion site.). Doyle cloudy purulent fluid in drain. DATA: Diagnostic Tests Reviewed for Today's Visit: Most recent labs and imaging results. Abscessogram- size of abscess decreasing, communication with sigmoid colon identified. Micro: No new data Recent Labs 10/17/17 0336 10/15/17 2236 WBC 10.63* 12.59* HB 9.0* 8.2* HCT 29.3* 27.0* PLT 349 284 NEUTNUM 8.16* 10.40* CREAT 1.23* 1.36* No results found for: VANCORA Impression/Recommendations Principal Problem: Intra-abdominal abscess (HCC) POA: Yes Assessment AND Plan: Polymicrobial, from sigmoid perf. Informed pt, she was under the impression that communication with sigmoid is a good thing. I discussed potential complications of perforated sigmoid and ongoing leak with her. She is still not willing to discuss any surgical intervention. Continue current po atbs until abscess resolved. CKD (chronic kidney disease) stage 3, GFR 30-59 ml/min POA: Yes Assessment AND Plan: current atb doses ok. Resolved Problems: * No resolved hospital problems. * SIGNATURE: Misael Wei MD PATIENT NAME: Dia Mccullough DATE: October 17, 2017 TIME: 12:44 PM PAGER/CONTACT #: [phone] CASE MANAGEM Observed: 10/17/2017 Status: COMPLETED Source: [place] 11:18 AM CLINIC OTHER CAMPUS REPOSITORY HNO ID: [id number] Author: Kaelyn (Rn) JANET Hugo Service: Care Management Author Type: Registered Nurse Type: Care Mgt Progress Note Filed: 10/17/2017 11:21 AM Note Text: CARE MANAGEMENT PROGRESS NOTE SERVICE DATE: 10/17/2017 SERVICE TIME: 1118 LOS: 6 days Spoke with patient at bedside. Patient does not want to wait for insurance approval for long-term facility. She states that if insurance doesn't approve SNF today then she will just go home. Educated patient on importance of following physical therapy's recommendations for [facility] placement. Patient not agreeable to that plan. Requesting home physical therapy services. Referral sent to [facility]. SIGNATURE: Kaelyn Hugo RN PATIENT NAME: Dia Mccullough DATE: October 17, 2017 TIME: 11:18 AM PAGER/CONTACT #: [phone] CASE MANAGEM Observed: 10/17/2017 Status: COMPLETED Source: [place] 11:04 AM [facility] REPOSITORY HNO ID: [id number] Author: Kaelyn SargentRn) JANET Hugo Service: Care Management Author Type: Registered Nurse Type: Care Mgt Progress Note Filed: 10/17/2017 11:06 AM Note Text: CARE MANAGEMENT PROGRESS NOTE SERVICE DATE: 10/17/2017 SERVICE TIME: 1105 LOS: 6 days Chart reviewed. [employer] requesting updated PT/OT evals for pre-cert approval. Paged PT - Khai, who states that Nadege will eval patient today. Anticipate d/c to [facility] once pre-cert approved. SIGNATURE: Kaelyn Hugo RN PATIENT NAME: Dia Mccullough DATE: October 17, 2017 TIME: 11:05 AM PAGER/CONTACT #: [phone] ALLIED HEALTH Observed: 10/17/2017 Status: COMPLETED Source: [place] 10:57 AM [facility] REPOSITORY HNO ID: [id number] Author: Becca SargentRn) JANET Baptiste Service: Nursing Author Type: Registered Nurse Type: Allied Health Filed: 10/17/2017 11:00 AM Note Text: HALO NURSE PROGRESS NOTE SERVICE DATE: 10/17/2017 SERVICE TIME: 10:58 AM REFERRED BY: Follow Up VISIT WITH: Patient REASON FOR VISIT: Coping issues and Serious illness/trauma CONDITION: Hematology/Oncology and Neuromuscular INTERVENTIONS: Emotional support and Therapeutic listening TIME SPENT (minutes): 30 Pt states she will go to ECF. Encouragement and reassurance Given. SIGNATURE: Becca Baptiste RN PATIENT NAME: Dia Mccullough DATE: October 17, 2017 TIME: 10:58 AM BRIEF OP NOT Observed: 10/17/2017 Status: COMPLETED Source: [place] 10:13 AM [facility] REPOSITORY HNO ID: [id number] Author: Rain Hung Service: Radiology Author Type: Physician Type: Brief Op Note Filed: 10/17/2017 10:14 AM Note Text: INTERVENTIONAL RADIOLOGY POST PROCEDURE NOTE DATE: 10/17/17 NAME: Dia Mccullough LOG ID: [id number] Pre-Procedure Diagnosis: Pelvic abscess, likely 2/2 ruptured diverticulitis, s/p percutaneous drain placement Post Procedure Diagnosis: Same. Cooker Meal: Dr. Rain Hung Procedure: Fluoroscopic guided abscessogram Anesthesia: None Findings: Small residual abscess cavity with fistulous communication to sigmoid colon. Drainage catheter left in placed, plan for repeat abscessogram in 1-2 weeks. Estimated Blood Loss: Minimal (Less Than 25 mL). Specimen: None Complications: None Full report with procedural details to follow and will become available under Imaging Reports. Please contact for any questions or concerns. SIGNATURE: Rain Hung MD PATIENT NAME: Dia Mccullough DATE: October 17, 2017 TIME: 10:13 AM PAGER/CONTACT #: INJECTION FOR Observed: 10/17/2017 Status: F Source: [facility] CATH 10:02 AM [facility]ALTH [facility] [id number] REPOSITORY Performed at [facility] APPROVED BY: RAIN HUNG MD PROCEDURE: FLUOROSCOPIC GUIDED ABSCESSOGRAM DATE: 10/17/2017 09:54 INDICATION: Pelvic abscess, likely related to ruptured diverticulitis, requiring previous percutaneous drain placement. ENCOUNTER: Initial COMPARISON: Images from CT-guided percutaneous drain placement performed on 10/11/2017. TECHNIQUE: Patient was brought to the angiography suite and placed in supine position on the angiography table. The indwelling percutaneous drain was injected with water-soluble contrast and fluoroscopic images w ere saved and placed in the PACS system. No immediate complication was noted. Total Fluoroscopy Time: 24 seconds Fluoroscopy dose: 5 mGy FINDINGS: Small residual abscess cavity. There is narrow fistulous communication with the sigmoid colon. 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 Plan for follow-up abscessogram with possible drain removal in 1-2 weeks. PROGRESS Observed: 10/17/2017 Status: COMPLETED Source: [place] 9:57 AM CLINIC OTHER CAMPUS REPOSITORY HNO ID: [id number] Author: Mal Zavala Service: Hospital Medicine Author Type: Physician Type: Progress Notes Filed: 10/17/2017 4:36 PM Note Text: INTERNAL MEDICINE PROGRESS NOTE SERVICE DATE: 10/17/2017 SERVICE TIME: 0957 Subjective Pt doing okay. Still has dry cough, since she was diagnosed with clots. Has been taking robitussin. Current Facility-Administered Medications: [JUL Hold due to Transfer] melatonin 3 mg tab(s) 3 mg ORAL AT BEDTIME [JUL Hold due to Transfer] amoxicillin-clavulanic acid 875 mg tab(s) (AUGMENTIN) 875 mg ORAL q 12 H [JUL Hold due to Transfer] ciprofloxacin HCl 500 mg tab(s) (CIPRO) 500 mg ORAL q 12 H [JUL Hold due to Transfer] fluconazole 400 mg tab(s) (DIFLUCAN) 400 mg ORAL DAILY [JUL Hold due to Transfer] acetaminophen 650 mg tab(s) (TYLENOL) 650 mg ORAL q 4 H PRN [JUL Hold due to Transfer] iv contrast (radiology procedure) INTRAVENOUS DIRECTED PRN [JUL Hold due to Transfer] enoxaparin 70 mg injection (LOVENOX) 1 mg/kg/dose SUBCUTANEOUS q 24 HR [JUL Hold due to Transfer] HYDROcodone 5 mg - acetaminophen 325 mg tablet (NORCO) 1 tablet ORAL q 4 H PRN [MAR Hold due to Transfer] polyethylene glycol 3350 17 g packet (MIRALAX, GLYCOLAX) 17 g ORAL DAILY [JUL Hold due to Transfer] metoprolol tartrate (short acting) 25 mg tab(s) (LOPRESSOR) 25 mg ORAL q 12 H [JUL Hold due to Transfer] acetaminophen 650 mg tab(s) (TYLENOL) 650 mg ORAL q 6 H PRN [MAR Hold due to Transfer] ondansetron orally disintegrating 4 mg tab(s) (ZOFRAN ODT) 4 mg ORAL q 6 H PRN [MAR Hold due to Transfer] predniSONE 5 mg tab(s) (DELTASONE) 5 mg ORAL BID PC [MAR Hold due to Transfer] predniSONE 2.5 mg tab(s) (DELTASONE) 2.5 mg ORAL DAILY wDINNER [JUL Hold due to Transfer] pantoprazole DR 40 mg tab(s) (PROTONIX) 40 mg ORAL DAILY (6 AM) [JUL Hold due to Transfer] saliva substitute combo no.9 15 mL (BIOTENE mouthwash) 15 mL MUCOUS MEMBRANE (TOPICAL MOUTH AND THROAT) 5X/DAY [MAR Hold due to Transfer] benzocaine-menthol 1 Lozenge (CEPACOL) 1 Lozenge MUCOUS MEMBRANE (TOPICAL MOUTH AND THROAT) q 2 H PRN [MAR Hold due to Transfer] 0.9% NaCl 3-5 mL 3-5 mL INTRAVENOUS q 12 H [MAR Hold due to Transfer] lactated ringers infusion 100 mL/hr INTRAVENOUS CONTINUOUS [JUL Hold due to Transfer] guaiFENesin 200 mg oral liquid (ROBITUSSIN) 200 mg ORAL QID Objective PHYSICAL EXAM: Patient Vitals for the past 24 hrs: BP Temp Temp src Pulse Resp SpO2 10/17/17 0813 147/81 36.9 ?C (98.4 ?F) Temporal Art 108 18 100 % 10/17/17 0324 160/77 36.3 ?C (97.3 ?F) Temporal Art 100 16 100 % 10/16/172004 139/71 36.7 ?C (98.1 ?F) Oral 113 18 98 % 10/16/17 1602 115/63 36.9 ?C (98.4 ?F) Oral 107 18 98 % Body mass index is 30.44 kg/m?. GENERAL: Alert, no distress, cooperative LUNGS: Lungs clear to auscultation. Good diaphragmatic excursion. CARDIAC: Normal S1 and S2; no rubs, murmurs, or gallops ABDOMEN: abd soft, adrián drain NEURO: Alert, oriented X 3 DATA: Diagnostic tests reviewed for today's visit: Component Latest Ref Rng AND Units 10/17/2017 WBC 3.98 - 10.04 thou/cmm 10.63 (H) RBC 3.93 - 5.22 mil/cmm 2.82 (L) HGB 11.2 - 15.7 g/dL 9.0 (L) Hematocrit 34.1 - 44.9 % 29.3 (L) MCV 79.4 - 94.8 fl 103.9 (H) MCH 25.6 - 32.2 pg 31.9 MCHC 31.6 - 34.8 % 30.7 (L) RDW 11.7 - 14.4 % 20.8 (H) RDW-SD 36.4 - 46.3 fl 78.7 (H) Platelet Count 182 - 369 thou/cmm 349 MPV 9.4 - 12.3 fl 9.3 (L) Seg Neutrophil % 76.8 Immature Grans % 2.60 Lymphocyte % 13.1 Monocyte % 6.5 Eosinophil % 0.8 Basophil % 0.2 Abs. Neut(Anc) 1.56 - 6.13 thou/cmm 8.16 (H) Immature Grans # 0.00 - 0.05 thou/cmm 0.28 (H) Abs. Lymph 1.18 - 3.74 thou/cmm 1.39 Abs. Greene 0.27 - 0.70 thou/cmm 0.69 Abs. Eosin 0.00 - 0.31 thou/cmm 0.09 Abs. Baso 0.01 - 0.08 thou/cmm 0.02 Sodium 136 - 145 mEq/L 140 Potassium 3.5 - 5.1 mEq/L 4.3 Chloride 98 - 107 mEq/L 108 (H) CO2 21 - 32 mEq/L 29 Glucose 70 - 99 mg/dL 114 (H) BUN 7 - 18 mg/dL 24 (H) Creatinine 0.51 - 0.95 mg/dL 1.23 (H) Calcium 8.5 - 10.1 mg/dL 8.8 Anion Gap 8 - 16 7 (L) eGFR >60mL/min/1.73m2 42.20 Culture smear 10/01/17 Component Performing Lab Cult AND Smr KATHLEEN AND AER (Abnormal) (Final) [facility] Moderate Mixed anaerobic lara. No further identification to follow. Plates will be held for 5 days. Smear Gram Stain (Final) [facility] Many WBC Few Gram negative bacilli Few Gram positive cocci Cult AND Smr KATHLEEN AND AER (Final) [facility] Klebsiella pneumoniae Few Cult AND Smr KATHLEEN AND AER (Final) [facility] Khadijah albicans Moderate Cult AND Smr KATHLEEN AND AER (Final) [facility] Clostridium perfringens Many Assessment/Plan Intra abd acess 2/2 complicated diverticulitis: -Pt refuses iv abx, picc -Per id recs: augmentin, cipo, fluconzole for 4 wk -s/p abscessogram this am with cathetor in place. Repeat in 1-2wk -Need outpt scope per surgery recs. 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 Will start today and inr check. Goal of 2--3. DIscussed can cause bleeeding. Pt is on 2mg at home, start at this dose. ANemia: -hgb stable, monitor CKD3: -stable, monitor Addisons: -cont prednisone To [facility] at [place]. 4 wk of po abx. ID f/u in 4 wk. Cont to monitor cough, if fever or wbc check cxr. Consult: plastic, surgery, ID, heme onc, Mal Zavala MD October 17, 2017 4:36 PM SIGNATURE: Mal Zavala MD PATIENT NAME: Dia Mccullough DATE: October 17, 2017 TIME: 9:57 AM PAGER/CONTACT #: [phone] HEMOGRAM/DIFF Collected: 10/17/2017 Status: F Source: [facility] 3:36 AM HEALTH SYSTEM REPOSITORY TYPE CODE TESTS RESULT OUT OF REFERENCE UNITS RANGE LAB WBC(LOINC) 3.98-10.04 thou/cmm WBC High 10.63 LAB RBC(LOINC) 3.93-5.22 mil/cmm Low RBC 2.82 LAB HGB(LOINC) 11.2-15.7 g/dL Low Hgb 9.0 LAB HCT(LOINC) 34.1-44.9 % Low Hct 29.3 LAB MCV(LOINC) 79.4-94.8 fl MCV High 103.9 LAB MCH(LOINC) 25.6-32.2 pg MCH 31.9 LAB MCHC(LOINC 31.6-34.8 % ) Low MCHC 30.7 LAB RDW(LOINC) 11.7-14.4 % RDW High 20.8 LAB RDWSD(LOIN 36.4-46.3 fl C) RDW SD High 78.7 LAB PLT(LOINC) 182-369 thou/cmm Platelet 349 LAB MPV(LOINC) 9.4-12.3 fl Low MPV 9.3 LAB SEG(LOINC) % Seg Neutrophil 76.8 LAB IGRE(LOINC % ) Immature Grans 2.60 LAB LYMPH(LOIN % C) Lymphocyte 13.1 LAB MNO(LOINC) % Monocyte 6.5 LAB EOSIN(LOIN % C) Eosinophil 0.8 LAB BASO(LOINC % ) Basophil 0.2 LAB SEGN(LOINC 1.56-6.13 thou/cmm ) Abs. High Neut (ANC) 8.16 LAB IGAB(LOINC 0.00-0.05 thou/cmm ) Abs High Immature Grans 0.28 LAB LYMN(LOINC 1.18-3.74 thou/cmm ) Abs. Lymph 1.39 LAB MONON(LOIN 0.27-0.70 thou/cmm C) Abs. Greene 0.69 LAB EOSN(LOINC 0.00-0.31 thou/cmm ) Abs. Eosin 0.09 LAB BASON(LOIN 0.01-0.08 thou/cmm C) Abs. Baso 0.02 Performed By: #### CBCD1 #### [place] [address] BASIC PANEL Collected: 10/17/2017 Status: F Source: [facility] 3:36 AM HEALTH SYSTEM REPOSITORY TYPE CODE TESTS RESULT OUT OF REFERENCE UNITS RANGE LAB NA(LOINC) 136-145 mEq/L Sodium Blood 140 LAB K(LOINC) 3.5-5.1 mEq/L Potassium Blood 4.3 LAB CL(LOINC) 98-107 mEq/L Chloride High Blood 108 LAB CO2(LOINC) 21-32 mEq/L CO2 Blood 29 LAB GLU(LOINC) 70-99 mg/dL Glucose High Blood 114 LAB BUN(LOINC) 7-18 mg/dL BUN High Blood 24 LAB CREA(LOINC 0.51-0.95 mg/dL ) High Creatinine Blood 1.23 LAB CA(LOINC) 8.5-10.1 mg/dL Calcium Blood 8.8 LAB ANGAP(LOIN 8-16 C) Low Anion Gap 7 Performed By: #### P8 #### [place] [address] MDRD GFR Collected: 10/17/2017 Status: F Source: [facility] 3:36 AM HEALTH SYSTEM REPOSITORY TYPE CODE TESTS RESULT OUT OF RANGE REFERENCE UNITS LAB GFRFN(LOINC >60mL/min/1.73m ) 2 eGFR 42.20 Result Comment: If the patient is , multiply the result by 1.210. Performed By: #### GFR #### [place] [address] PROGRESS Observed: 10/16/2017 Status: COMPLETED Source: [facility] 9:57 PM CLINIC OTHER CAMPUS REPOSITORY HNO ID: [id number] Author: Patsy Kirby MD Service: Hospital Medicine Author Type: Physician Type: Progress Notes Filed: 10/17/2017 3:57 AM Note Text: DEPARTMENT OF HOSPITAL MEDICINE PROGRESS NOTE SERVICE DATE: 10/16/2017 SERVICE TIME: 10:00 PM Hospital Medicine/Primary Attending: Patsy Kirby MD Subjective INTERVAL HPI: Doing fine, abdominal pain and leg pain is better,pt eager to participate in PT,no fever,chills,chest pain,sob MEDICATIONS: Reviewed Current Facility-Administered Medications: melatonin 3 mg tab(s) 3 mg ORAL AT BEDTIME Kaycee (Ammy) Carolina amoxicillin-clavulanic acid 875 mg tab(s) (AUGMENTIN) 875 mg ORAL q 12 H Misael E Bollin 875 mg at 10/16/172116 ciprofloxacin HCl 500 mg tab(s) (CIPRO) 500 mg ORAL q 12 H Misael E Bollin 500 mg at 10/16/172116 fluconazole 400 mg tab(s) (DIFLUCAN) 400 mg ORAL DAILY Misael E Bollin 400 mg at 10/16/17 0849 acetaminophen 650 mg tab(s) (TYLENOL) 650 mg ORAL q 4 H PRN Phong Rush iv contrast (radiology procedure) INTRAVENOUS DIRECTED PRN Phong Rush enoxaparin 70 mg injection (LOVENOX) 1 mg/kg/dose SUBCUTANEOUS q 24 HR Jose Maria Kyrie 70 mg at 10/16/17 1710 HYDROcodone 5 mg - acetaminophen 325 mg tablet (NORCO) 1 tablet ORAL q 4 H PRN Kaycee Figueroa 1 tablet at 10/15/17 0857 polyethylene glycol 3350 17 g packet (MIRALAX, GLYCOLAX) 17 g ORAL DAILY Jose Maria Kyrie 17 g at 10/13/17 0828 metoprolol tartrate (short acting) 25 mg tab(s) (LOPRESSOR) 25 mg ORAL q 12 H Jose Maria Kyrie 25 mg at 10/16/17 2117 acetaminophen 650 mg tab(s) (TYLENOL) 650 mg ORAL q 6 H PRN Callie Castle ondansetron orally disintegrating 4 mg tab(s) (ZOFRAN ODT) 4 mg ORAL q 6 H PRN Gold Cleemns predniSONE 5 mg tab(s) (DELTASONE) 5 mg ORAL BID PC Gold Lyonon 5 mg at 10/16/17 1235 predniSONE 2.5 mg tab(s) (DELTASONE) 2.5 mg ORAL DAILY wDINNER Gold Lyonon 2.5 mg at 10/16/[address] 40 mg tab(s) (PROTONIX) 40 mg ORAL DAILY (6 AM) Gold Clemens 40 mg at 10/16/17 0546 saliva substitute combo no.9 15 mL (BIOTENE mouthwash) 15 mL MUCOUS MEMBRANE (TOPICAL MOUTH AND THROAT) 5X/DAY Gold Clemens 15 mL at 10/14/17 0817 benzocaine-menthol 1 Lozenge (CEPACOL) 1 Lozenge MUCOUS MEMBRANE (TOPICAL MOUTH AND THROAT) q 2 H PRN Gold Clemens 0.9% NaCl 3-5 mL 3-5 mL INTRAVENOUS q 12 H Gold Clemens 3 mL at 10/16/17 2118 lactated ringers infusion 100 mL/hr INTRAVENOUS CONTINUOUS Gold Clemens Last Rate: 100 mL/hr at 10/15/17 0045 100 mL/hr at 10/15/17 0045 guaiFENesin 200 mg oral liquid (ROBITUSSIN) 200 mg ORAL QID Gold Clemens 200 mg at 10/16/17 0849 Objective PHYSICAL EXAM: BP 139/71 Pulse 113 Temp (Src) 98.1 (Oral) Resp 18 Ht 5' 0 (1.52m) Wt 155 lb 13.8 oz (70.7kg) SpO2 98% BMI 30.44 kg/(m2). Physical Exam Performed GENERAL: Alert, no acute distress, cooperative SKIN: Dry and normal. Multiple ecchymoses over upper arms bilaterally noted EYES: EOMI,anicteric sclerae NECK: No jugulovenous distention, Supple LUNGS: Lungs clear to auscultation, symmetrical expansion CARDIAC: Normal S1 and S2; no murmurs heard. ABDOMEN: Abdomen soft, non-tender, BS normal, No masses palpable ?ADRIÁN drain c/d/i EXTREMITIES: Extensive bruising, LLE wrapped NEURO: Grossly normal cognition, motor function, DATA: Diagnostic tests reviewed for today's visit: Most recent labs and imaging results. CBC, Coags, BMP, Mg, Phos Recent Labs 10/15/17 2236 10/14/17 0510 WBC 12.59* 10.24* HB 8.2* 7.8* HCT 27.0* 25.3* PLT 284 268 NA 139 139 K 5.0 4.3 CHLOR 107 108* CO2 29 27 BUN 21* 17 CREAT 1.36* 0.95 GLUC 132* 97 CA 8.7 8.5 Assessment/Plan 1. ?Intra-abdominal Abscess 2/2 Complicated Diverticulitis - Rx?with ADRIÁN drain and on meropenem in-house. ?Patient refuses PICC line and IV anti-biotics despite d/w me and ID. ?Cx growing Klebsiella, Clostridium, Yeast, and unknown GPC, and ?ID changed abx to Augmentin, Cipro, and Fluconazole. ?Rx for at least 4 weeks and through resolution of abscess. ?Abscessogram not able to be performed due to insurance reasons at [place], d/w patient, and she would prefer to still go to [place] and get CT scan only even though the study is not as good. ?F/U with ID one month. ? 2. ?Acute LLE hematoma - large, evaluated by Plastics and non-operative mgmt being pursued. ? 3. ?Hypercoag State with Mult DVT/PE - currently on once daily therapeutic Lovenox ? 4. ?A/C Blood Loss Anemia - 2/2 #2. ?Stable H/H, follow. ? 5. ?CKD stage 3-stable 6.Deconditioning-PT,OT Medication and Non-Pharmacologic VTE Prophylaxis/Anticoagulants Anticoagulant AND Antiplatelet Medications Start Dose Route Frequency Ordered Stop 10/14/17 0000 enoxaparin (LOVENOX) 80 mg/0.8 mL syrg 1 mg/kg/dose SUBCUTANEOUS EVERY 24 HOURS 10/14/17 1443 -- 10/11/17 1800 enoxaparin 70 mg injection (LOVENOX) 1 mg/kg/dose SUBCUTANEOUS EVERY 24 HOURS 10/11/17 1736 -- 10/08/17 2300 vte non-pharmacologic prophylaxis - none indicated (va,oh) 10/08/17 2300 vte current anticoag therapy (va,mo) Disposition: SNF,pending precert Plan of care discussed with: Patient and RN SIGNATURE: Patsy Kirby MD PATIENT NAME: Dia Mccullough DATE: October 16, 2017 TIME: 10:00 PM PAGER/CONTACT #: monica castnao etx [phone] HEMOGRAM/DIFF Collected: 10/15/2017 Status: F Source: [facility] 10:36 PM HEALTH SYSTEM REPOSITORY TYPE CODE TESTS RESULT OUT OF REFERENCE UNITS RANGE LAB WBC(LOINC) 3.98-10.04 thou/cmm WBC High 12.59 LAB RBC(LOINC) 3.93-5.22 mil/cmm Low RBC 2.58 LAB HGB(LOINC) 11.2-15.7 g/dL Low Hgb 8.2 LAB HCT(LOINC) 34.1-44.9 % Low Hct 27.0 LAB MCV(LOINC) 79.4-94.8 fl MCV High 104.7 LAB MCH(LOINC) 25.6-32.2 pg MCH 31.8 LAB MCHC(LOINC 31.6-34.8 % ) Low MCHC 30.4 LAB RDW(LOINC) 11.7-14.4 % RDW High 20.9 LAB RDWSD(LOIN 36.4-46.3 fl C) RDW SD High 78.7 LAB PLT(LOINC) 182-369 thou/cmm Platelet 284 LAB MPV(LOINC) 9.4-12.3 fl MPV 9.5 LAB NRBCR(LOIN 0.0-0.2 % C) Nucleated RBC % 0.2 LAB NRBCA(LOIN 0.00-0.01 thou/cmm C) High Nucleated RBC 0.02 Absolute LAB SEG(LOINC) % Seg Neutrophil 82.6 LAB IGRE(LOINC % ) Immature Grans 3.40 LAB LYMPH(LOIN % C) Lymphocyte 8.4 LAB MNO(LOINC) % Monocyte 5.2 LAB EOSIN(LOIN % C) Eosinophil 0.2 LAB BASO(LOINC % ) Basophil 0.2 LAB SEGN(LOINC 1.56-6.13 thou/cmm ) Abs. High Neut (ANC) 10.40 LAB IGAB(LOINC 0.00-0.05 thou/cmm ) Abs High Immature Grans 0.43 LAB LYMN(LOINC 1.18-3.74 thou/cmm ) Low Abs. Lymph 1.06 LAB MONON(LOIN 0.27-0.70 thou/cmm C) Abs. Greene 0.65 LAB EOSN(LOINC 0.00-0.31 thou/cmm ) Abs. Eosin 0.03 LAB BASON(LOIN 0.01-0.08 thou/cmm C) Abs. Baso 0.03 Performed By: #### CBCD1 #### [facility] [address] [place] [address] BASIC PANEL Collected: 10/15/2017 Status: F Source: [facility] 10:36 PM HEALTH SYSTEM REPOSITORY TYPE CODE TESTS RESULT OUT OF REFERENCE UNITS RANGE LAB NA(LOINC) 136-145 mEq/L Sodium Blood 139 LAB K(LOINC) 3.5-5.1 mEq/L Potassium Blood 5.0 LAB CL(LOINC) 98-107 mEq/L Chloride Blood 107 LAB CO2(LOINC) 21-32 mEq/L CO2 Blood 29 LAB GLU(LOINC) 70-99 mg/dL Glucose High Blood 132 LAB BUN(LOINC) 7-18 mg/dL BUN High Blood 21 LAB CREA(LOINC 0.51-0.95 mg/dL ) High Creatinine Blood 1.36 LAB CA(LOINC) 8.5-10.1 mg/dL Calcium Blood 8.7 LAB ANGAP(LOIN 8-16 C) Anion Gap 8 Performed By: #### P8 #### [place] [address] MDRD GFR Collected: 10/15/2017 Status: F Source: [facility] 10:36 PM HEALTH SYSTEM REPOSITORY TYPE CODE TESTS RESULT OUT OF RANGE REFERENCE UNITS LAB GFRFN(LOINC >60mL/min/1.73m ) 2 eGFR 37.58 Result Comment: If the patient is , multiply the result by 1.210. Performed By: #### GFR #### [place] [address] PROGRESS Observed: 10/15/2017 Status: COMPLETED Source: [facility] 8:18 PM CLINIC OTHER CAMPUS REPOSITORY HNO ID: [id number] Author: Patsy Kirby MD Service: Hospital Medicine Author Type: Physician Type: Progress Notes Filed: 10/16/2017 5:52 AM Note Text: DEPARTMENT OF HOSPITAL MEDICINE PROGRESS NOTE SERVICE DATE: 10/15/2017 SERVICE TIME: 8:18 PM Hospital Medicine/Primary Attending: Patsy Kirby MD Subjective INTERVAL HPI: Pt doing fine, no fever,nausea or vomiting,abdominal pain better.looking forward to therapy at [facility]. MEDICATIONS: Reviewed Current Facility-Administered Medications: amoxicillin-clavulanic acid 875 mg tab(s) (AUGMENTIN) 875 mg ORAL q 12 H Misael E Bollin 875 mg at 10/15/172007 ciprofloxacin HCl 500 mg tab(s) (CIPRO) 500 mg ORAL q 12 H Misael E Bollin 500 mg at 10/15/172007 fluconazole 400 mg tab(s) (DIFLUCAN) 400 mg ORAL DAILY Misael E Bollin 400 mg at 10/15/17 0859 acetaminophen 650 mg tab(s) (TYLENOL) 650 mg ORAL q 4 H PRN Phong Rush iv contrast (radiology procedure) INTRAVENOUS DIRECTED PRN Phong Rush enoxaparin 70 mg injection (LOVENOX) 1 mg/kg/dose SUBCUTANEOUS q 24 HR Jose Maria Kyrie 70 mg at 10/15/17 1810 HYDROcodone 5 mg - acetaminophen 325 mg tablet (NORCO) 1 tablet ORAL q 4 H PRN Kaycee (Forming Department Supervisor) Carolina 1 tablet at 10/15/17 0857 polyethylene glycol 3350 17 g packet (MIRALAX, GLYCOLAX) 17 g ORAL DAILY Jose Maria Kyrie 17 g at 10/13/17 0828 metoprolol tartrate (short acting) 25 mg tab(s) (LOPRESSOR) 25 mg ORAL q 12 H Jose Maria Kyrie 25 mg at 10/15/172007 acetaminophen 650 mg tab(s) (TYLENOL) 650 mg ORAL q 6 H PRN Callie Castle ondansetron orally disintegrating 4 mg tab(s) (ZOFRAN ODT) 4 mg ORAL q 6 H PRN Gold Clemens predniSONE 5 mg tab(s) (DELTASONE) 5 mg ORAL BID PC Gold Clemens 5 mg at 10/15/17 1241 predniSONE 2.5 mg tab(s) (DELTASONE) 2.5 mg ORAL DAILY wDINNER Gold Clemens 2.5 mg at 10/15/[address] 40 mg tab(s) (PROTONIX) 40 mg ORAL DAILY (6 AM) Gold Lyonon 40 mg at 10/15/17 0528 saliva substitute combo no.9 15 mL (BIOTENE mouthwash) 15 mL MUCOUS MEMBRANE (TOPICAL MOUTH AND THROAT) 5X/DAY Gold Lyonon 15 mL at 10/14/17 0817 benzocaine-menthol 1 Lozenge (CEPACOL) 1 Lozenge MUCOUS MEMBRANE (TOPICAL MOUTH AND THROAT) q 2 H PRN Gold Clemens 0.9% NaCl 3-5 mL 3-5 mL INTRAVENOUS q 12 H Gold Lyonon 3 mL at 10/15/172007 lactated ringers infusion 100 mL/hr INTRAVENOUS CONTINUOUS Gold Clemens Last Rate: 100 mL/hr at 10/15/17 0045 100 mL/hr at 10/15/17 004 guaiFENesin 200 mg oral liquid (ROBITUSSIN) 200 mg ORAL QID Gold Clemens 200 mg at 10/15/17 0858 Objective PHYSICAL EXAM: BP 138/80 Pulse 108 Temp (Src) 98.4 (Oral) Resp 18 Ht 5' 0 (1.52m) Wt 155 lb 13.8 oz (70.7kg) SpO2 98% BMI 30.44 kg/(m2). Physical Exam Performed GENERAL: Alert, no acute distress, cooperative SKIN: Skin color, texture, turgor normal. Multiple ecchymoses over upper arms bilaterally noted EYES: EOMI NECK: No jugulovenous distention, Supple LUNGS: Lungs clear to auscultation, symmetrical expansion CARDIAC: Normal S1 and S2; no murmurs heard. ABDOMEN: Abdomen soft, non-tender, BS normal, No masses palpable ?ADRIÁN drain c/d/i EXTREMITIES: Extensive bruising, LLE wrapped NEURO: Grossly normal cognition, motor function, DATA: Diagnostic tests reviewed for today's visit: Most recent labs and imaging results. CBC, Coags, BMP, Mg, Phos Recent Labs 10/15/176 10/14/17 0510 WBC 12.59* 10.24* HB 8.2* 7.8* HCT 27.0* 25.3* PLT 284 268 NA 139 139 K 5.0 4.3 CHLOR 107 108* CO2 29 27 BUN 21* 17 CREAT 1.36* 0.95 GLUC 132* 97 CA 8.7 8.5 Active Hospital Problems Diagnosis Date Noted - Intra-abdominal abscess (HCC) 10/08/2017 - Traumatic hematoma of left lower leg 10/08/2017 - Leg hematoma, left, initial encounter 10/08/2017 - Baltazar disease Chronic - Venous insufficiency (chronic) (peripheral) - CKD (chronic kidney disease) stage 3, GFR 30-59 ml/min 11/28/2014 - Pulmonary emboli (HCC) 01/30/2014 Overview Note: clinically resolved - DVT (deep venous thrombosis) (HCC) 01/08/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 ?Intra-abdominal Abscess 2/2 Complicated Diverticulitis - Rx?with ADRIÁN drain and on meropenem in-house. ?Patient refuses PICC line and IV anti-biotics despite d/w me and ID. ?Cx growing Klebsiella, Clostridium, Yeast, and unknown GPC, and ?ID changed abx to Augmentin, Cipro, and Fluconazole. ?Rx for at least 4 weeks and through resolution of abscess. ?Abscessogram not able to be performed due to insurance reasons at [place], d/w patient, and she would prefer to still go to [place] and get CT scan only even though the study is not as good. ?F/U with ID one month. ? 2. ?Acute LLE hematoma - large, evaluated by Plastics and non-operative mgmt being pursued. ? 3. ?Hypercoag State with Mult DVT/PE - currently on once daily therapeutic Lovenox ? 4. ?A/C Blood Loss Anemia - 2/2 #2. ?Stable H/H, follow. ? 5. ?CKF S3 ? 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 ? 7. ?PMR/Inflammatory Polyarthritis Medication and Non-Pharmacologic VTE Prophylaxis/Anticoagulants Anticoagulant AND Antiplatelet Medications Start Dose Route Frequency Ordered Stop 10/14/17 0000 enoxaparin (LOVENOX) 80 mg/0.8 mL syrg 1 mg/kg/dose SUBCUTANEOUS EVERY 24 HOURS 10/14/17 1443 -- 10/11/17 1800 enoxaparin 70 mg injection (LOVENOX) 1 mg/kg/dose SUBCUTANEOUS EVERY 24 HOURS 10/11/17 1736 -- 10/08/17 2300 vte non-pharmacologic prophylaxis - none indicated (fl,oh) 10/08/17 2300 vte current anticoag therapy (va,oh) Disposition: SNF,pending precert Plan of care discussed with: Patient and RN SIGNATURE: Patsy Kirby MD PATIENT NAME: Dia Mccullough DATE: October 15, 2017 TIME: 8:18 PM PAGER/CONTACT #: sound red etx [phone] CASE MANAGEM Observed: 10/15/2017 Status: COMPLETED Source: [facility] 9:49 AM [facility] REPOSITORY HNO ID: [id number] Author: Keya (Rn) JANET Robles Service: Care Management Author Type: Registered Nurse Type: Care Mgt Progress Note Filed: 10/15/2017 9:52 AM Note Text: CARE MANAGEMENT PROGRESS NOTE SERVICE DATE: 10/15/2017 SERVICE TIME:9:49 A.M. Spoke with Allie, staff member at [facility]. They do not have pre-cert at this time so patient is unable to come to them this weekend. The earliest would be Tuesday, if they can obtain if at that time. LOS: 4 days SIGNATURE: Keya Robles RN PATIENT NAME: Dia Mccullough DATE: October 15, 2017 TIME: 9:49 AM PAGER/CONTACT #: [phone] NURSING PROG Observed: 10/14/2017 Status: COMPLETED Source: [place] 4:30 PM [facility] REPOSITORY HNO ID: [id number] Author: Maty SargentRn) JANET Aceves Service: Nursing Author Type: Registered Nurse Type: Nursing Progress Note Filed: 10/14/2017 6:23 PM Note Text: 2- [facility] has not called back stating if the patient has received precert. RN spoke with Joan body care manager and she states she has not heard anything back from [place]. Patient updated. 1630-Per body care manager Debbie Hilton patients precert is no longer active and states that [facility] is working towards new precert for later today. RN and body care manager updated patient on discharge situation. CNDS Observed: 10/14/2017 Status: COMPLETED Source: [facility] 2:43 PM [facility] REPOSITORY HNO ID: [id number] Author: Lory Garces Service: Hospital Medicine Author Type: Physician Type: Discharge Summaries Filed: 10/14/2017 2:45 PM Note Text: DISCHARGE SUMMARY PATIENT NAME: Dia Mccullough Admission Information Admission Information ADMIT DATE: 10/08/2017 DISCHARGE DATE: 10/14/2017 MY DOCTORS AND MEDICAL TEAM: My Main Hospital Doctor: Lory Garces Primary Care Provider: Mallorie Wheeler MD My Medical Team Members: Treatment Team: Attending Provider: Lory Garces Primary Service: Julien Castano Consulting: Dar Sorensen Consulting: Zhane Mcgovern III Consulting: Antione Irizarry Consulting: Jj Howell MY CONDITION AT DISCHARGE: Stable REASON I WAS IN THE HOSPITAL: Abd Pain SUMMARY OF WHAT HAPPENED WHILE I WAS IN THE HOSPITAL: You were admitted for abdominal pain and an intra-abdominal abscess. A drain was placed and will stay until the abscess is resolved. Continue anti-biotics until told to stop by Infectious Disease. OTHER PROBLEMS/DIAGNOSIS: Principal Problem: Intra-abdominal abscess (HCC) Active Problems: DVT (deep venous thrombosis) (HCC) Pulmonary emboli (HCC) CKD (chronic kidney disease) stage 3, GFR 30-59 ml/min Venous insufficiency (chronic) (peripheral) Curry disease Traumatic hematoma of left lower leg Leg hematoma, left, initial encounter Resolved Problems: * No resolved hospital problems. * OPERATIONS PERFORMED WHILE IN THE HOSPITAL: None IMPORTANT TEST/PROCEDURES: No procedures performed TEST RESULTS NOT AVAILABLE AT THIS TIME: No pending results Discharge Disposition Discharge Disposition: Correction Facility - Greater than 30 Days Activity When You Leave the Hospital Resume pre-hospital activity Diet Instructions Resume your pre-hospital diet Follow Up Appointments Follow-Up Appointment When: In 4 weeks Misael Wei [phone] [facility] [address] [facility] [id number] PCP Requested Referral Follow-Up Appointment When: In 1 week Mallorie Wheeler [phone] [address] [facility] [address] PCP Requested Referral Additional Provider to Provider Information: 1. ?Intra-abdominal Abscess 2/2 Complicated Diverticulitis - Rx with ADRIÁN drain and on meropenem in-house. ?Patient refuses PICC line and IV anti-biotics despite d/w me and ID. Cx growing Klebsiella, Clostridium, Yeast, and unknown GPC, and ID changed abx to Augmentin, Cipro, and Fluconazole. Rx for at least 4 weeks and through resolution of abscess. Abscessogram not able to be performed due to insurance reasons at [place], d/w patient, and she would prefer to still go to [place] and get CT scan only even though the study is not as good. F/U with ID one month. ? 2. ?Acute LLE hematoma - large, evaluated by Plastics and non-operative mgmt being pursued. ? 3. ?Hypercoag State with Mult DVT/PE - currently on once daily therapeutic Lovenox ? 4. ?A/C Blood Loss Anemia - 2/ #2. ?Stable H/H, follow. ? 5. ?CKF S3 ? 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 7. ?PMR/Inflammatory Polyarthritis FOLLOW-UP APPOINTMENTS ALREADY SCHEDULED WITH A [facility] PROVIDER: No future appointments. DISCHARGE MEDICATION: Current Discharge Medication List START taking these medications fluconazole (DIFLUCAN) 400 mg Take 400 mg by mouth once daily. metoprolol tartrate (short acting) (LOPRESSOR) 25 mg Take 25 mg by mouth every 12 hours. polyethylene glycol 3350 (MIRALAX, GLYCOLAX) 17 g Take 17 g by mouth once daily. HYDROcodone-acetaminophen (NORCO) 1 tablet Take 1 tablet by mouth every 4 hours as needed. Earliest Fill Date: 10/14/17 Refills: 0 Associated Diagnoses:Leg hematoma, left, initial encounter; Intra-abdominal abscess (HCC) amoxicillin-clavulanic acid (AUGMENTIN) 875 mg Take 875 mg by mouth twice daily. ciprofloxacin HCl (CIPRO) 500 mg Take 500 mg by mouth twice daily. CONTINUE these medications which have CHANGED enoxaparin (LOVENOX) 70 mg Inject 70 mg subcutaneously q 24 HR. CONTINUE these medications which have NOT CHANGED !! predniSONE (DELTASONE) 2.5 mg Take 2.5 mg by mouth daily before dinner. Omeprazole 40 mg Take 40 mg by mouth once daily. !! predniSONE (DELTASONE) 5 mg Take 5 mg by mouth twice daily. ondansetron orally disintegrating (ZOFRAN ODT) 4 mg Take 4 mg by mouth every 6 hours as needed for Nausea/Vomiting. Qty: 24 tablet Refills: 0 !! - Potential duplicate medications found. Please discuss with provider. STOP taking these medications hydroCHLOROthiazide (HYDRODIURIL, ESIDRIX) 25 mg Comments: Reason for Stopping: TIME OF CARE: Discharge Management: I personally spent greater than 30 minutes involved in the discharge management of this patient. SIGNATURE: Lory Garces MD PAGER/CONTACT #: DATE: October 14, 2017 TIME: 2:43 PM CASE MANAGEM Observed: 10/14/2017 Status: COMPLETED Source: [facility] 2:40 PM [facility]INIC OTHER [place] REPOSITORY HNO ID: [id number] Author: Debbie SargentRn) JANET Hilton Service: Care Management Author Type: Registered Nurse Type: Care Mgt Progress Note Filed: 10/14/2017 2:41 PM Note Text: Spoke with Allie @ [facility]. They cancelled precert for this patient thinking she would not come until next week. Asked that they get new precert. PROGRESS Observed: 10/14/2017 Status: COMPLETED Source: [facility] 12:49 PM [facility] REPOSITORY HNO ID: [id number] Author: Lory Garces Service: Hospital Medicine Author Type: Physician Type: Progress Notes Filed: 10/14/2017 12:52 PM Note Text: INPATIENT PROGRESS NOTE SERVICE DATE: 10/14/2017 SERVICE TIME: 12:49 PM PRIMARY SERVICE: Sound Subjective CHIEF COMPLAINT: Abd Pain INTERVAL HPI: No CALZADA/CP/SOB/Abd pain Current hospital medications: amoxicillin-clavulanic acid 875 mg tab(s) (AUGMENTIN) 875 mg ORAL q 12 H ciprofloxacin HCl 500 mg tab(s) (CIPRO) 500 mg ORAL q 12 H fluconazole 400 mg tab(s) (DIFLUCAN) 400 mg ORAL DAILY acetaminophen 650 mg tab(s) (TYLENOL) 650 mg ORAL q 4 H PRN iv contrast (radiology procedure) INTRAVENOUS DIRECTED PRN enoxaparin 70 mg injection (LOVENOX) 1 mg/kg/dose SUBCUTANEOUS q 24 HR HYDROcodone 5 mg - acetaminophen 325 mg tablet (NORCO) 1 tablet ORAL q 4 H PRN polyethylene glycol 3350 17 g packet (MIRALAX, GLYCOLAX) 17 g ORAL DAILY metoprolol tartrate (short acting) 25 mg tab(s) (LOPRESSOR) 25 mg ORAL q 12 H acetaminophen 650 mg tab(s) (TYLENOL) 650 mg ORAL q 6 H PRN ondansetron orally disintegrating 4 mg tab(s) (ZOFRAN ODT) 4 mg ORAL q 6 H PRN predniSONE 5 mg tab(s) (DELTASONE) 5 mg ORAL BID PC predniSONE 2.5 mg tab(s) (DELTASONE) 2.5 mg ORAL DAILY wDINNER pantoprazole DR 40 mg tab(s) (PROTONIX) 40 mg ORAL DAILY (6 AM) saliva substitute combo no.9 15 mL (BIOTENE mouthwash) 15 mL MUCOUS MEMBRANE (TOPICAL MOUTH AND THROAT) 5X/DAY benzocaine-menthol 1 Lozenge (CEPACOL) 1 Lozenge MUCOUS MEMBRANE (TOPICAL MOUTH AND THROAT) q 2 H PRN 0.9% NaCl 3-5 mL 3-5 mL INTRAVENOUS q 12 H lactated ringers infusion 100 mL/hr INTRAVENOUS CONTINUOUS guaiFENesin 200 mg oral liquid (ROBITUSSIN) 200 mg ORAL QID Objective PHYSICAL EXAM: BP 153/89 Pulse 98 Temp (Src) 98.6 (Oral) Resp 18 Ht 5' 0 (1.52m) Wt 155 lb 13.8 oz (70.7kg) SpO2 99% BMI 30.44 kg/(m2). Physical Exam Performed GENERAL: Alert, no distress, cooperative SKIN: Skin color, texture, turgor normal. Multiple ecchymoses. EYES: EOMI NECK: No jugulovenous distention, Supple LUNGS: Lungs clear to auscultation, Good diaphragmatic excursion CARDIAC: Normal S1 and S2; no rubs, murmurs, or gallops ABDOMEN: Abdomen soft, non-tender, BS normal, No masses or organomegaly. ADRIÁN drain c/d/i EXTREMITIES: Extensive bruising, LLE wrapped NEURO: Grossly normal cognition, motor function, and cranial nerves III-XII DATA: Diagnostic tests reviewed for today's visit: Most recent labs and imaging results. Assessment/Plan 1. Intra-abdominal Abscess 2/2 Complicated Diverticulitis - Rx with ADRIÁN drain and on meropenem in-house. Patient refuses PICC line and IV anti-biotics despite d/w me and ID. Cx growing Klebsiella, Clostridium, Yeast, and unknown GPC, and ID changed abx to Augmentin, Cipro, and Fluconazole. Rx for at least 4 weeks and through resolution of abscess. Abscessogram next week per IR. F/U with ID one month. ? 2. Acute LLE hematoma - large, evaluated by Plastics and non-operative mgmt being pursued. ? 3. Hypercoag State with Mult DVT/PE - currently on once daily therapeutic Lovenox ? 4. A/C Blood Loss Anemia - 2/2 #2. Stable H/H, follow. ? 5. CKF S3 ? 6. Baltazar's Dz - prednisone ? 7. PMR/Inflammatory Polyarthritis Medication and Non-Pharmacologic VTE Prophylaxis/Anticoagulants Anticoagulant AND Antiplatelet Medications Start Dose Route Frequency Ordered Stop 10/11/17 1800 enoxaparin 70 mg injection (LOVENOX) 1 mg/kg/dose SUBCUTANEOUS EVERY 24 HOURS 10/11/17 1736 -- 10/08/17 2300 vte non-pharmacologic prophylaxis - none indicated (va,mo) 10/08/17 2300 vte current anticoag therapy (va,mo) VTE Prophylaxis: VTE prophylaxis appropriate SIGNATURE: Lory Garces MD PATIENT NAME: Dia Mccullough DATE: October 14, 2017 TIME: 12:49 PM PAGER: Red CONSULT PROG Observed: 10/14/2017 Status: COMPLETED Source: [facility] 12:14 PM CLINIC OTHER CAMPUS REPOSITORY HNO ID: [id number] Author: Misael Wei Service: Infectious Disease Author Type: Physician Type: Consult Progress Note Filed: 10/14/2017 12:25 PM Note Text: INFECTIOUS DISEASE CONSULT PROGRESS NOTE SERVICE DATE: 10/14/2017 SERVICE TIME: 12:15 PM Subjective INTERVAL HISTORY / PERTINENT Review of Systems Constitutional: Negative for chills and fever. Gastrointestinal: Positive for abdominal pain (improving per pt, still mainly around drain). Current Facility-Administered Medications: fluconazole 400 mg in NaCl (iso-osmotic) 200 mL (DIFLUCAN) 400 mg INTRAVENOUS DAILY acetaminophen 650 mg tab(s) (TYLENOL) 650 mg ORAL q 4 H PRN iv contrast (radiology procedure) INTRAVENOUS DIRECTED PRN enoxaparin 70 mg injection (LOVENOX) 1 mg/kg/dose SUBCUTANEOUS q 24 HR HYDROcodone 5 mg - acetaminophen 325 mg tablet (NORCO) 1 tablet ORAL q 4 H PRN polyethylene glycol 3350 17 g packet (MIRALAX, GLYCOLAX) 17 g ORAL DAILY metoprolol tartrate (short acting) 25 mg tab(s) (LOPRESSOR) 25 mg ORAL q 12 H acetaminophen 650 mg tab(s) (TYLENOL) 650 mg ORAL q 6 H PRN meropenem 1 g in NaCl 0.9% 100 mL MB+ (MERREM) 1 g INTRAVENOUS q 12 H ondansetron orally disintegrating 4 mg tab(s) (ZOFRAN ODT) 4 mg ORAL q 6 H PRN predniSONE 5 mg tab(s) (DELTASONE) 5 mg ORAL BID PC predniSONE 2.5 mg tab(s) (DELTASONE) 2.5 mg ORAL DAILY wDINNER pantoprazole DR 40 mg tab(s) (PROTONIX) 40 mg ORAL DAILY (6 AM) saliva substitute combo no.9 15 mL (BIOTENE mouthwash) 15 mL MUCOUS MEMBRANE (TOPICAL MOUTH AND THROAT) 5X/DAY benzocaine-menthol 1 Lozenge (CEPACOL) 1 Lozenge MUCOUS MEMBRANE (TOPICAL MOUTH AND THROAT) q 2 H PRN 0.9% NaCl 3-5 mL 3-5 mL INTRAVENOUS q 12 H lactated ringers infusion 100 mL/hr INTRAVENOUS CONTINUOUS guaiFENesin 200 mg oral liquid (ROBITUSSIN) 200 mg ORAL QID Objective PHYSICAL EXAM: Vital Signs: BP 153/89 Pulse 98 Temp 37 ?C (98.6 ?F) (Oral) Resp 18 Ht 152.4 cm (5') Wt 70.7 kg (155 lb 13.8 oz) SpO2 99% BMI 30.44 kg/m? Physical Exam Abdominal: There is tenderness (left side). Dark doyle purulent fluid in abscess drain. DATA: Diagnostic Tests Reviewed for Today's Visit: Most recent labs Micro: Abscess culture- Klebsiella pneumoniae, C perfringens, and C albicans. Gm stain also shows GPC. Recent Labs 10/14/17 0510 10/12/17 0635 WBC 10.24* 7.81 HB 7.8* 7.4* HCT 25.3* 24.3* PLT 268 224 NEUTNUM 7.81* 5.87 CREAT 0.95 -- No results found for: VANCORA Impression/Recommendations Principal Problem: Intra-abdominal abscess (HCC) POA: Yes Assessment AND Plan: I recommend continued iv antibiotic therapy at [facility] at least initially. Pt declines, wants to be treated with oral atbs. Discussed at length with her including risk of treatment failure. She understands. Will change to po augmentin, cipro, and fluconazole. Her augmentin reaction was upset stomach, no other allergic symptoms. Could go to [facility] on these. Has follow up abscessogram in Radiology scheduled for 1 week per her report. Will need to stay on atbs until abscess resolved. If discharged, should have FU appt with me in about 4 weeks. D/W Sound IM. Resolved Problems: * No resolved hospital problems. * SIGNATURE: Misael Wei MD PATIENT NAME: Dia Mccullough DATE: October 14, 2017 TIME: 12:15 PM PAGER/CONTACT #: [phone] HEMOGRAM/DIFF Collected: 10/14/2017 Status: F Source: [facility] 5:10 AM HEALTH SYSTEM REPOSITORY TYPE CODE TESTS RESULT OUT OF REFERENCE UNITS RANGE LAB WBC(LOINC) 3.98-10.04 thou/cmm WBC High 10.24 LAB RBC(LOINC) 3.93-5.22 mil/cmm Low RBC 2.46 LAB HGB(LOINC) 11.2-15.7 g/dL Low Hgb 7.8 LAB HCT(LOINC) 34.1-44.9 % Low Hct 25.3 LAB MCV(LOINC) 79.4-94.8 fl MCV High 102.8 LAB MCH(LOINC) 25.6-32.2 pg MCH 31.7 LAB MCHC(LOINC 31.6-34.8 % ) Low MCHC 30.8 LAB RDW(LOINC) 11.7-14.4 % RDW High 21.1 LAB RDWSD(LOIN 36.4-46.3 fl C) RDW SD High 76.6 LAB PLT(LOINC) 182-369 thou/cmm Platelet 268 LAB MPV(LOINC) 9.4-12.3 fl MPV 9.6 LAB NRBCR(LOIN 0.0-0.2 % C) Nucleated RBC % 0.2 LAB NRBCA(LOIN 0.00-0.01 thou/cmm C) High Nucleated RBC 0.02 Absolute LAB SEG(LOINC) % Seg Neutrophil 76.3 LAB IGRE(LOINC % ) Immature Grans 2.60 LAB LYMPH(LOIN % C) Lymphocyte 14.4 LAB MNO(LOINC) % Monocyte 6.1 LAB EOSIN(LOIN % C) Eosinophil 0.4 LAB BASO(LOINC % ) Basophil 0.2 LAB SEGN(LOINC 1.56-6.13 thou/cmm ) Abs. High Neut (ANC) 7.81 LAB IGAB(LOINC 0.00-0.05 thou/cmm ) Abs High Immature Grans 0.27 LAB LYMN(LOINC 1.18-3.74 thou/cmm ) Abs. Lymph 1.47 LAB MONON(LOIN 0.27-0.70 thou/cmm C) Abs. Greene 0.62 LAB EOSN(LOINC 0.00-0.31 thou/cmm ) Abs. Eosin 0.04 LAB BASON(LOIN 0.01-0.08 thou/cmm C) Abs. Baso 0.02 Result Comment: Smear scanned; tech agrees with automated differential Performed By: #### [id number] #### [place] [address] BASIC PANEL Collected: 10/14/2017 Status: F Source: [facility] 5:10 AM HEALTH SYSTEM REPOSITORY TYPE CODE TESTS RESULT OUT OF REFERENCE UNITS RANGE LAB NA(LOINC) 136-145 mEq/L Sodium Blood 139 LAB K(LOINC) 3.5-5.1 mEq/L Potassium Blood 4.3 LAB CL(LOINC) 98-107 mEq/L Chloride High Blood 108 LAB CO2(LOINC) 21-32 mEq/L CO2 Blood 27 LAB GLU(LOINC) 70-99 mg/dL Glucose Blood 97 LAB BUN(LOINC) 7-18 mg/dL BUN Blood 17 LAB CREA(LOINC 0.51-0.95 mg/dL ) Creatinine Blood 0.95 LAB CA(LOINC) 8.5-10.1 mg/dL Calcium Blood 8.5 LAB ANGAP(LOIN 8-16 C) Anion Gap 8 Performed By: #### P8 #### [place] [address] MDRD GFR Collected: 10/14/2017 Status: F Source: [facility] 5:10 AM HEALTH SYSTEM REPOSITORY TYPE CODE TESTS RESULT OUT OF RANGE REFERENCE UNITS LAB GFRFN(LOINC >60mL/min/1.73m ) 2 eGFR 56.86 Result Comment: If the patient is , multiply the result by 1.210. Performed By: #### GFR #### [place] [address] CONSULT PROG Observed: 10/13/2017 Status: COMPLETED Source: [facility] 5:37 PM CLINIC OTHER CAMPUS REPOSITORY HNO ID: [id number] Author: Misael Wei Service: Infectious Disease Author Type: Physician Type: Consult Progress Note Filed: 10/13/2017 5:38 PM Note Text: October 13, 2017 5:37 PM Infectious Disease Afebrile, denies abdominal pain. Abscess cult- KE group GNB, Clostridium, Khadijah Recent Labs 10/12/17 0635 10/11/17 0431 WBC 7.81 8.18 7.98 HB 7.4* 7.4* 7.4* HCT 24.3* 23.4* 23.4* PLT 224 211 207 CREAT -- 0.94 NEUTNUM 5.87 6.20* LYMPHNUM 1.21 1.13* MONOCYT 0.52 0.46 EOSIN 0.02 0.01 Imp:Abdominal abscess Rec:Continue meropenem Add fluconazole. Misael Wei MD CASE MANAGEM Observed: 10/13/2017 Status: COMPLETED Source: [facility] 2:44 PM [facility] REPOSITORY HNO ID: [id number] Author: Debbie SargentRn) JANET Hilton Service: Care Management Author Type: Registered Nurse Type: Care Mgt Progress Note Filed: 10/13/2017 2:45 PM Note Text: Spoke with Allie Mcallister at [facility]. She will start precert for pt for transfer to her facillity. PROGRESS Observed: 10/13/2017 Status: COMPLETED Source: [facility] 11:11 AM [facility] REPOSITORY HNO ID: [id number] Author: Lory Garces Service: Hospital Medicine Author Type: Physician Type: Progress Notes Filed: 10/13/2017 11:18 AM Note Text: INPATIENT PROGRESS NOTE SERVICE DATE: 10/13/2017 SERVICE TIME: 11:11 AM PRIMARY SERVICE: Sound Subjective CHIEF COMPLAINT: Intra-abdominal Abscess INTERVAL HPI: 3-4 loose BM. No CP/SOB/CALZADA Current hospital medications: acetaminophen 650 mg tab(s) (TYLENOL) 650 mg ORAL q 4 H PRN iv contrast (radiology procedure) INTRAVENOUS DIRECTED PRN enoxaparin 70 mg injection (LOVENOX) 1 mg/kg/dose SUBCUTANEOUS q 24 HR HYDROcodone 5 mg - acetaminophen 325 mg tablet (NORCO) 1 tablet ORAL q 4 H PRN polyethylene glycol 3350 17 g packet (MIRALAX, GLYCOLAX) 17 g ORAL DAILY metoprolol tartrate (short acting) 25 mg tab(s) (LOPRESSOR) 25 mg ORAL q 12 H acetaminophen 650 mg tab(s) (TYLENOL) 650 mg ORAL q 6 H PRN meropenem 1 g in NaCl 0.9% 100 mL MB+ (MERREM) 1 g INTRAVENOUS q 12 H ondansetron orally disintegrating 4 mg tab(s) (ZOFRAN ODT) 4 mg ORAL q 6 H PRN predniSONE 5 mg tab(s) (DELTASONE) 5 mg ORAL BID PC predniSONE 2.5 mg tab(s) (DELTASONE) 2.5 mg ORAL DAILY wDINNER pantoprazole DR 40 mg tab(s) (PROTONIX) 40 mg ORAL DAILY (6 AM) saliva substitute combo no.9 15 mL (BIOTENE mouthwash) 15 mL MUCOUS MEMBRANE (TOPICAL MOUTH AND THROAT) 5X/DAY benzocaine-menthol 1 Lozenge (CEPACOL) 1 Lozenge MUCOUS MEMBRANE (TOPICAL MOUTH AND THROAT) q 2 H PRN 0.9% NaCl 3-5 mL 3-5 mL INTRAVENOUS q 12 H lactated ringers infusion 100 mL/hr INTRAVENOUS CONTINUOUS guaiFENesin 200 mg oral liquid (ROBITUSSIN) 200 mg ORAL QID Objective PHYSICAL EXAM: BP 165/82 Pulse 89 Temp (Src) 98.2 (Oral) Resp 18 Ht 5' 0 (1.52m) Wt 155 lb 13.8 oz (70.7kg) SpO2 100% BMI 30.44 kg/(m2). Physical Exam Performed GENERAL: Alert, no distress, cooperative SKIN: Skin color, texture, turgor normal. Multiple ecchymoses. EYES: EOMI NECK: No jugulovenous distention, Supple LUNGS: Lungs clear to auscultation, Good diaphragmatic excursion CARDIAC: Normal S1 and S2; no rubs, murmurs, or gallops ABDOMEN: Abdomen soft, non-tender, BS normal, No masses or organomegaly. ADRIÁN drain c/d/i EXTREMITIES: Extensive bruising, LLE wrapped NEURO: Grossly normal cognition, motor function, and cranial nerves III-XII DATA: Diagnostic tests reviewed for today's visit: Most recent labs and imaging results. Assessment/Plan 1. Intra-abdominal Abscess 2/2 Complicated Diverticulitis - await ID/Sens, currently with ADRIÁN drain and on meropenem. Abscessogram next week per IR. 2. Acute LLE hematoma - large, evaluated by Plastics and non-operative mgmt being pursued. 3. Hypercoag State with Mult DVT/PE - currently on once daily therapeutic Lovenox 4. A/C Blood Loss Anemia - 2/2 #2. Stable H/H, follow. 5. CKF S3 6. Curry's Dz - prednisone 7. PMR/Inflammatory Polyarthritis Medication and Non-Pharmacologic VTE Prophylaxis/Anticoagulants Anticoagulant AND Antiplatelet Medications Start Dose Route Frequency Ordered Stop 10/11/17 1800 enoxaparin 70 mg injection (LOVENOX) 1 mg/kg/dose SUBCUTANEOUS EVERY 24 HOURS 10/11/17 1736 -- 10/08/17 2300 vte non-pharmacologic prophylaxis - none indicated (va,mo) 10/08/17 230 vte current anticoag therapy ([place]) VTE Prophylaxis: VTE prophylaxis appropriate SIGNATURE: Lory Garces MD PATIENT NAME: Dia Mccullough DATE: October 13, 2017 TIME: 11:11 AM PAGER: Red CASE MANAGEM Observed: 10/13/2017 Status: COMPLETED Source: [facility] 11:08 AM [facility] REPOSITORY HNO ID: [id number] Author: Debbie SargentRn) JANET Hilton Service: Care Management Author Type: Registered Nurse Type: Care Mgt Progress Note Filed: 10/13/2017 11:09 AM Note Text: Received message through Joan Masters Patient Access that [facility] will be able to accept pt at d/c Pt informaed. CASE MANAGEM Observed: 10/12/2017 Status: COMPLETED Source: [facility] 3:45 PM [facility] REPOSITORY HNO ID: [id number] Author: Summer (Specialist) Dinora Service: (none) Author Type: (none) Type: Care Mgt Progress Note Filed: 10/12/2017 3:45 PM Note Text: SNF referral sent to [facility] THERAPY NT Observed: 10/12/2017 Status: COMPLETED Source: [facility] 3:33 PM [facility] REPOSITORY HNO ID: [id number] Author: Radha (Pt) Yola Service: Physical Therapy Author Type: Physical Therapist Type: Therapy (PT/OT/Speech/Resp) Filed: 10/12/2017 3:38 PM Note Text: Physical Therapy Evaluation SERVICE DATE: 10/12/2017 SERVICE TIME: 1455 to 1520 ROOM: [place] [address] Recommended Discharge Disposition: Subacute/SNF Justification For Post Acute Needs: Anticipate that patient will require daily (5x/wk) skilled therapy in a post-acute facility setting at the time of acute hospital discharge PT Recommendations to Nursing: Ambulate with device;Transfer to/from chair;OOB for Meals;With assist of 1 person Device: Wheeled Walker PT 6 Clicks Score: 17 Precautions/Activity Restrictions: Fall Risk Isolation Type: None ASSESSMENT : Patient presents with a medically stable condition with limited functional impairments which minimally impact safe mobility. The patient will require skilled therapy for PT problems that may include balance, gait safety with or without an assitive device and home safety education. Patient Disposition at Start of Session: OOB in Chair Patient Disposition at End of Session: Supine in Bed;Call Suggs in Reach Tolerance Limited By Pain Physical Therapy Problem List: Education Deficit;Safety Deficits;Decreased Activity Tolerance;Decreased Strength;Functional Mobility Impairment;Balance Impaired Patient /Caregiver Goals: Go Home Goals for Plan of Care: Transfer supine to/from sit with: Stand By Assistance Transfer sit to/from stand with: Stand By Assistance Ambulate with: Stand By Assistance Distance: 40 ft intervals Device: Wheeled Walker Goal: Complete 15x2 general LE strength exercises Rehab Potential: Good PLAN: Treatment Frequency (times per week): 5 (1-5) Current admission Treatment Interventions: Education;Strengthening;Functional Mobility Training;Balance Training Plan of Care developed with: Patient TREATMENT INTERVENTIONS: Therapy Diagnosis: Reduced mobility-other;Muscle Weakness (generalized);Unsteadiness on feet;Abnormalities of gait and mobility-other Interventions Provided: Evaluation;Therapeutic Activity (22212) $ Evaluation-Low (25872) Billed Units: 1 unit Therapeutic Activity (69672) Treatment Minutes: 9 1 unit Skilled Intervention(s): Instructed patient in sit to supine using safe, effective technique Instruction in sit to stand technique with proper hand placement and body positioning at edge of bed/chair Instruction in stand to sit technique with lower extremities touching chair/bed and reaching back for surface Education on hand and foot placement for stand pivot. Patient maintains NWB L lower extremity due to pain Education with safe wheeled walker usage including pacing, upright posture, sequencing, gait pattern and proper foot/body placement within the frame of the wheeled walker Education regarding importance of OOB, to chair, ambulate in room to regulate BP, improve lung function and overall blood flow, and to aid with bodily functions somewhat dependent on gravity. Total Timed Code Treatment Minutes: 9 Total Treatment Time (minutes): 25 FUNCTIONAL G CODE: PT 6 Clicks Score: 17 (10/12/17 145) Mobility: Walking and Moving Around Current Status (G8978): CK (10/12/17 145) Mobility: Walking and Moving Around Goal Status (G8979): CJ (10/12/171454) Based on clinical assessment and the score on the 6 Clicks Functional Assessment Tool, the G code and corresponding severity modifiers are documented above. SUBJECTIVE: Current Hospital Course: Chart reviewed; ? This is a 77 year old female who has a complicated recent medical history starting August 24 when she was diagnosed with diverticular abscess/perforation and septic shock. ?She was brought here for surgical eval from [place], but declined operative intervention and requested to go home with hospice on PO antibiotics. ?She took 2 weeks of antibiotics, had stabilization and improvement of her symptoms, but subsequently developed hematemesis due to anticoagulation and presumed PUD. ?She was admitted to inpatient hospice residence, but with stopping her anticoagulation, hematemesis stopped and she was discharged from inpatient hospice. ?She then had new DVT and PE developing off anticoagulation and was re-hospitalized, with initiation of Lovenox at full dose. ?She spent some time in the transitional care unit and was sent home 1 week ago on Lovenox. ? On 10/11 she noted an area on her left foot/pretibial area of bruise/oozing blood, but it worsened and progressed to cover much of the pretibial area with more bleeding, and she went to the [place] ED this morning. ?She was discharged back home after wound evaluation and no finding of circulatory compromise. ?Her son then brought her back to the ED with a concern over abdominal pain and insistent on hospitalization per [place] ED notes. ?Eval included CT abdomen which showed a 5 cm abscess/phlegmon in the same area as the original perforation, and she was recommended to be transferred to have IR evaluation of percutaneous drainage.??? 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 Hansen - Inflammatory polyarthropathy - Normocytic anemia - PE (pulmonary thromboembolism) ([facility]) 01/05/14 Bilat, extensive - Pulmonary embolism without acute cor pulmonale - Pure hypercholesterolemia - Sicca syndrome - Unspecified essential hypertension - Unspecified gastritis and gastroduodenitis without mention of hemorrhage - Urinary tract infection, site not specified - Venous insufficiency (chronic) (peripheral) - Vitamin D deficiency PAST SURGICAL HISTORY Procedure Laterality Date - CATARACT EXTRACTION HX Right - PARTIAL HIP REPLACEMENT Right 04/2013 - PAST SURGICAL HISTORY OF hernia repair - PAST SURGICAL HISTORY OF 11/2012 L3-L4 laminectomy and fusion - PAST SURGICAL HISTORY OF 11/2012 Back fusion surgery - TOTAL HIP REPLACEMENT 05/10/2013 right hip replacement - VENOUS DUPLEX BOTH LOWER EXTREMITIES 05/12/2016 Patient Report: 12/23 pain L lower extremity. Agreeable to PT. I know I cannot go back home like this Home Environment Patient Lives With: Self/Alone Assistance Available: time study statistician (Dtr nearby) Entry To Home: No Stairs Tub/Shower Type: walk in shower with seat Laundry: on main floor Equipment Owned: Grab Bars-Shower;Wheeled Walker;Cane;Shower Chair (transport W/C?) Prior Functional Level: Required Assistance Assistance Required With: Laundry;Cleaning;Shopping;Transportation (Dtr assists with IADLs since return home for about 1 week) Prior Functional Level Comments: Pt was at hospice, get better, went to rehab and has been at home for a week. Now developed L LE hematoma. OBJECTIVE: CURRENT FUNCTIONAL STATUS: Current Functional Mobility Assist Level Additional Information Rolling Supine to Sit Sit to Supine Minimal Assistance Scooting Sit to Stand Minimal Assistance Stand to Sit Minimal Assistance Bed to Chair Toilet/Commode Minimal Assistance Gait Minimal Assistance Gait Device: Wheeled Walker Gait Distance (feet): 4x2 Stairs Curb Step Car Transfer Gait Deviations Left Lower Extremity: Weight bearing decreased General Gait Deviations: Lauryn decreased;Flexed trunk posture;Shuffling Gait;Non-functional gait speed Range Of Motion: Within Functional Limits Strength: Within Functional Limits Except Location Strength Not WFL: Lower Extremity;Upper Extremity Left Upper Extremity Strength: 3+ Right Upper Extremity Strength: 3+ Left Lower Extremity Strength: 4- Right Lower Extremity Strength: 4- Please see discipline specific clinical documentation flowsheet for complete details for this therapy evaluation/treatment. SIGNATURE: Radha Aceves PT PATIENT NAME: Dia Mccullough DATE: October 12, 2017 TIME: 3:33 PM PAGER/CONTACT #: [phone] CASE MANAGEM Observed: 10/12/2017 Status: COMPLETED Source: [place] 3:21 PM [facility] OTHER [place] REPOSITORY HNO ID: [id number] Author: Joan (Rn) JANET Masters Service: Care Management Author Type: Registered Nurse Type: Care Mgt Progress Note Filed: 10/12/2017 3:22 PM Note Text: CARE MANAGEMENT PROGRESS NOTE SERVICE DATE: 10/12/2017 SERVICE TIME: 1521 LOS: 1 day Needs Prior to Discharge: Accepting Facility;Bed Availability;Precertification;Discharge Transportation Spoke with Pt after PT/OT eval, pt agreeable to SNF at [place]. Would like [facility] as first choice. Will need precert. SIGNATURE: Joan Masters RN PATIENT NAME: Dia Mccullough DATE: October 12, 2017 TIME: 3:21 PM PAGER/CONTACT #: [phone] PROGRESS Observed: 10/12/2017 Status: COMPLETED Source: [place] 3:16 PM [facility] OTHER [place] REPOSITORY HNO ID: [id number] Author: Krain Dow Service: Hospital Medicine Author Type: Physician Type: Progress Notes Filed: 10/12/2017 6:00 PM Note Text: DEPARTMENT OF HOSPITAL MEDICINE PROGRESS NOTE SERVICE DATE: 10/12/2017 SERVICE TIME: 3:16 PM Hospital Medicine/Primary Attending: Karin Dow MD NIGHT AND WEEKEND COVERAGE: From 7am - 7pm, please call [phone] After 7pm, please call cross cover pager #[phone] Subjective INTERVAL HPI: Patient seen and examined. Complains of pain in the ;left leg. Denies fever or chils or SOB. MEDICATIONS: Reviewed Objective PHYSICAL EXAM: BP 150/77 Pulse 89 Temp (Src) 99 (Oral) Resp 18 Ht 5' 0 (1.52m) Wt 155 lb 13.8 oz (70.7kg) SpO2 99% BMI 30.44 kg/(m2). Physical Exam Performed GENERAL: Alert, no distress, cooperative, SKIN: Skin color, texture, turgor normal. No rashes or lesions. OROPHARYNX: Lips, mucosa, and tongue normal. Teeth and gums normal. Oropharynx normal. LUNGS: Lungs clear to auscultation, Air entry good, Unlabored breathing. CARDIAC: Normal S1 and S2; 3/6 systolic murmurs ABDOMEN: Abdomen soft, non-tender, non-distended, BS normal EXTREMITIES: left leg- wrapped in spike. Opened and examined yesterday- has large hematoma in lower leg anteriorly. Small tearing of skin over the hematoma- serosanginous discharge, DP present Lines, Drains, and Airways Line Peripheral 10/09/17 0644 Left Wrist 22 Gauge 3 days Peripheral 10/11/17 0430 Short Left Antecubital 22 Gauge 1 day Drain Drain/Tube 10/11/17 Toby Sherwood Left Lower Quadrant Abdomen Drain #1 1 day Reviewed lines, drains, AND airways. Need to be continued peripheral lines DATA: Diagnostic tests reviewed for today's visit: Most recent labs and imaging results. Assessment/Plan 1. Sigmoid diverticulitis with pelvic abscess, improved, s/p abdominal drain with seropurulent discharge, on meropenem, ID following, H/o bowel perforation 08/24/17 ? 2. Recurrent DVT/PE, MTHFR heterozygous. Used to be on coumadin which was stopped when she developed hematemesis, remains on lovenox, Antiphospholipid ab negative 3. Left leg bleeding/ hematoma, s/p trauma, secondary to higher dose of lovenox for?CKD 3-4, continue with dressing and SPIKE. ? 5. Episode of hematemesis 5 weeks ago while on coumadin, managed with vitk. No scope done. ? 6. SVT, resolved ? 7. Severe Anemia, multifactorial, stable, Hb is 7.4. ? Medication and Non-Pharmacologic VTE Prophylaxis/Anticoagulants Anticoagulant AND Antiplatelet Medications Start Dose Route Frequency Ordered Stop 10/11/17 1800 enoxaparin 70 mg injection (LOVENOX) 1 mg/kg/dose SUBCUTANEOUS EVERY 24 HOURS 10/11/17 1736 -- 10/08/17 2300 vte non-pharmacologic prophylaxis - none indicated (va,mo) 10/08/17 230 vte current anticoag therapy ([place], [place]) VTE Prophylaxis: VTE prophylaxis appropriate Disposition: SNF Plan of care discussed with: Patient SIGNATURE: Karin Dow MD PATIENT NAME: Dia Mccullough DATE: October 12, 2017 TIME: 3:16 PM PAGER/CONTACT #: [phone] etx [phone] THERAPY NT Observed: 10/12/2017 Status: COMPLETED Source: [place] 2:45 PM CLINIC OTHER CAMPUS REPOSITORY HNO ID: [id number] Author: Hoa (Roldan/Emilie Paz Service: Occupational Therapy Author Type: Occupational Therapist Type: Therapy (PT/OT/Speech/Resp) Filed: 10/12/2017 2:52 PM Note Text: Occupational Therapy Evaluation SERVICE DATE: 10/12/2017 SERVICE TIME: 1336 to 1406 ROOM: [place] [address] Recommended Discharge Disposition: Subacute/SNF Recommended Discharge Disposition Comments: Pt is limited with her mobility and ADL participation due to the L LE hematoma and abdominal pain from her abdominal abcess/drain placement. Pt has been to [place] rehab in the past and had a very good experince Justification For Post Acute Needs: Anticipate that patient will require daily (5x/wk) skilled therapy in a post-acute facility setting at the time of acute hospital discharge;Medically complex;Motivated;Willing to participate;Living the community premorbidly OT Recommendations to Nursing: With assist of 2 people;Transfer to Chair;ADL?s in chair;OOB for meals;Bedside Commode for Toileting Equipment: Wheeled Walker OT 6 Clicks Score: 14 Precautions/Activity Restrictions: Fall Risk Isolation Type: None ASSESSMENT: OT Evaluation Moderate Complexity: Occupational Profile - Extended review of patient's medical record completed including patient's physical, cognitive, and psycho-social history (please see current hospital course of evaluation). Occupational Performance - Pt presents with deficits in feeding, grooming, UE bathing/dressing, LE bathing/dressing, functional transfers, functional mobility, decreased safety awareness, decreased insight into deficits Complexity in Clinical Decision Making - The extent of clinical reasoning was moderate, several treatment options present for the patient, need for modification during the evaluation was minimal/moderate, comorbidities affecting occupational performance: Curry's, CKD, DVT/PE, fibromyalgia, HTN, R hip endo 2013 back sx Patient Disposition at Start of Session: Supine in Bed Patient Disposition at End of Session: OOB in Chair;Call Suggs in Reach Tolerance Limited By Pain (throbbing with L LE down) Occupational Therapy Problem List: Education Deficit;Safety Deficits;Impaired Self Care;Decreased Activity Tolerance;Decreased Strength;Functional Mobility Impairment;Balance Impaired Patient /Caregiver Goals: Go To Rehab Goals for Plan of Care: Grooming with: Minimal Assistance Upper Body Bathing with: Minimal Assistance Upper Body Dressing with: Minimal Assistance Lower Body Bathing with: Moderate Assistance Lower Body Dressing with: Moderate Assistance Toilet Hygiene with: Minimal Assistance Toilet Transfer with: Minimal Assistance (BSC) Tolerate (minutes of functional activity): 25 Functional Activity with: Minimal Assistance Additional Goal 1: Pt to demo static stand ADL for at least 4 min A Additional Goal 2: Pt to demo good safety with OOB ADLs Transfer: bed mobility with min A Rehab Potential: Good PLAN: Treatment Frequency (times per week): 3 (1-3) Current admission Treatment Interventions: Education;Self Care / Home Management;Functional Mobility Training;Strengthening Plan of Care developed with: Patient TREATMENT INTERVENTIONS: Therapy Diagnosis: Reduced mobility-other;Decreased activities of daily living (ADL);Muscle Weakness (generalized);Unsteadiness on feet Interventions Provided: Evaluation;Self Fdc Management (63936) $ Evaluation-Moderate (66683) Billed Units: 1 unit Self Fdc Management (94575) Treatment Minutes: 14 1 unit Skilled Intervention(s): Facilitated edge of bed ADLs of oral and facial hygiene at edge of bed with L LE propped up to increase ADL participation, increase activity tolerance in unsupported sitting. Provided assistance, cues, fall guarding assist, sequencing to safely complete ADLs. Facilitated safe transfer to chair using wheeled walker and pivoting on R LE/hopping on R LE. Elevated L LE with pillows/blankets due to pain/increased throbbing after movement. Edu pt and communicated on whiteboard mobility level 2 with 2 assist. Left wheeled walker in room due to floor not having any walkers available. Total Timed Code Treatment Minutes: 14 Total Treatment Time (minutes): 30 FUNCTIONAL G CODE: OT 6 Clicks Score: 14 (10/12/171335) Self Care Current Status (G8987): CK (10/12/171335) Self Care Goal Status (G8988): CJ (10/12/171335) Based on clinical assessment and the score on the 6 Clicks Functional Assessment Tool, the G code and corresponding severity modifiers are documented above. SUBJECTIVE: Current Hospital Course: Chart reviewed; This is a 77 year old female who has a complicated recent medical history starting August 24 when she was diagnosed with diverticular abscess/perforation and septic shock. She was brought here for surgical eval from [place], but declined operative intervention and requested to go home with hospice on PO antibiotics. She took 2 weeks of antibiotics, had stabilization and improvement of her symptoms, but subsequently developed hematemesis due to anticoagulation and presumed PUD. She was admitted to inpatient hospice residence, but with stopping her anticoagulation, hematemesis stopped and she was discharged from inpatient hospice. She then had new DVT and PE developing off anticoagulation and was re-hospitalized, with initiation of Lovenox at full dose. She spent some time in the transitional care unit and was sent home 1 week ago on Lovenox. Yesterday she noted an area on her left foot/pretibial area of bruise/oozing blood, but it worsened and progressed to cover much of the pretibial area with more bleeding, and she went to the [place] ED this morning. She was discharged back home after wound evaluation and no finding of circulatory compromise. Her son then brought her back to the ED with a concern over abdominal pain and insistent on hospitalization per [facility] ED notes. Eval included CT abdomen which showed a 5 cm abscess/phlegmon in the same area as the original perforation, and she was recommended to be transferred to have IR evaluation of percutaneous drainage. 10/11 Procedure: CT guided placement of abscess drainage catheter 77 year old female with diverticulitis and presacral fluid/gas collection. 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 Hansen - Inflammatory polyarthropathy - Normocytic anemia - PE (pulmonary thromboembolism) ([facility]) 01/05/14 Bilat, extensive - Pulmonary embolism without acute cor pulmonale - Pure hypercholesterolemia - Sicca syndrome - Unspecified essential hypertension - Unspecified gastritis and gastroduodenitis without mention of hemorrhage - Urinary tract infection, site not specified - Venous insufficiency (chronic) (peripheral) - Vitamin D deficiency PAST SURGICAL HISTORY Procedure Laterality Date - CATARACT EXTRACTION HX Right - PARTIAL HIP REPLACEMENT Right 04/2013 - PAST SURGICAL HISTORY OF hernia repair - PAST SURGICAL HISTORY OF 11/2012 L3-L4 laminectomy and fusion - PAST SURGICAL HISTORY OF 11/2012 Back fusion surgery - TOTAL HIP REPLACEMENT 05/10/2013 right hip replacement - VENOUS DUPLEX BOTH LOWER EXTREMITIES 05/12/2016 Reason for Occupational Therapy Consult: Post acute placement Relevant Past Medical History: Curry's, CKD, DVT/PE, fibromyalgia, HTN, R hip endo 2013 back sx, Patient Report: Pt in room cooperative and asking to get out of bed. Pain: 8/10 L LE after movement Home Environment Patient Lives With: Self/Alone Assistance Available: time study statistician (Dtr nearby) Entry To Home: No Stairs Tub/Shower Type: walk in shower with seat Laundry: on main floor Equipment Owned: Grab Bars-Shower;Wheeled Walker;Cane;Shower Chair (transport W/C?) Prior Functional Level: Required Assistance Assistance Required With: Laundry;Cleaning;Shopping;Transportation (Dtr assists with IADLs since return home for about 1 week) Prior Functional Level Comments: Pt was at hospice, get better, went to rehab and has been at home for a week. Now developed L LE hematoma. OBJECTIVE: Responsiveness: Alert;Awake Follows Commands: 2-step Commands Memory Deficits: Short Term (3/3 recall) Executive Function Deficits: Judgement;Safety Awareness Safety Awareness Deficit: Minimal impairment Judgement Deficit: Minimal impairment CURRENT FUNCTIONAL STATUS: Current Activities of Daily Living Assist Level Feeding Set Up Grooming Moderate Assistance Bathing Upper Body Moderate Assistance Bathing Lower Body Maximal Assistance Dressing Upper Body Moderate Assistance Dressing Lower Body Maximal Assistance Toileting Maximal Assistance Functional Mobility Assist Level Rolling Supine to Sit Moderate Assistance Sit to Supine Scooting Sit to Stand Moderate Assistance Stand to Sit Minimal Assistance Bed to Chair Moderate Assistance Wheeled Walker;Gait Belt Toilet/Commode Moderate Assistance (not formally assessed, sim to chair) Functional Mobility Hand Dominance: Right Range Of Motion: Within Functional Limits Strength: Within Functional Limits Except Location Strength Not WFL: Upper Extremity Left Upper Extremity Strength: 4/5 Right Upper Extremity Strength: 4/5 Edu pt on fall prevention / up with assistance. Pt left in room in chair with calllight within reach. Please see discipline specific clinical documentation flowsheet for complete details for this therapy evaluation/treatment. SIGNATURE: ROLDAN Medina/Marina PATIENT NAME: Dia Mccullough DATE: October 12, 2017 TIME: 2:45 PM PAGER: [phone] CONSULT PROG Observed: 10/12/2017 Status: COMPLETED Source: [place] 1:46 PM CLINIC OTHER CAMPUS REPOSITORY HNO ID: [id number] Author: Misael Wei Service: Infectious Disease Author Type: Physician Type: Consult Progress Note Filed: 10/12/2017 1:50 PM Note Text: INFECTIOUS DISEASE CONSULT PROGRESS NOTE SERVICE DATE: 10/12/2017 SERVICE TIME: 1:46 PM Subjective INTERVAL HISTORY / PERTINENT Review of Systems Constitutional: Negative for fever (emp 37.2). Gastrointestinal: Positive for abdominal pain (after drain placed). Pt taking and tolerating meropenem. Current Facility-Administered Medications: acetaminophen 650 mg tab(s) (TYLENOL) 650 mg ORAL q 4 H PRN iv contrast (radiology procedure) INTRAVENOUS DIRECTED PRN enteric contrast (radiology procedure) ORAL DIRECTED PRN enoxaparin 70 mg injection (LOVENOX) 1 mg/kg/dose SUBCUTANEOUS q 24 HR HYDROcodone 5 mg - acetaminophen 325 mg tablet (NORCO) 1 tablet ORAL q 4 H PRN polyethylene glycol 3350 17 g packet (MIRALAX, GLYCOLAX) 17 g ORAL DAILY metoprolol tartrate (short acting) 25 mg tab(s) (LOPRESSOR) 25 mg ORAL q 12 H acetaminophen 650 mg tab(s) (TYLENOL) 650 mg ORAL q 6 H PRN meropenem 1 g in NaCl 0.9% 100 mL MB+ (MERREM) 1 g INTRAVENOUS q 12 H ondansetron orally disintegrating 4 mg tab(s) (ZOFRAN ODT) 4 mg ORAL q 6 H PRN predniSONE 5 mg tab(s) (DELTASONE) 5 mg ORAL BID PC predniSONE 2.5 mg tab(s) (DELTASONE) 2.5 mg ORAL DAILY wDINNER pantoprazole DR 40 mg tab(s) (PROTONIX) 40 mg ORAL DAILY (6 AM) saliva substitute combo no.9 15 mL (BIOTENE mouthwash) 15 mL MUCOUS MEMBRANE (TOPICAL MOUTH AND THROAT) 5X/DAY benzocaine-menthol 1 Lozenge (CEPACOL) 1 Lozenge MUCOUS MEMBRANE (TOPICAL MOUTH AND THROAT) q 2 H PRN 0.9% NaCl 3-5 mL 3-5 mL INTRAVENOUS q 12 H lactated ringers infusion 100 mL/hr INTRAVENOUS CONTINUOUS guaiFENesin 200 mg oral liquid (ROBITUSSIN) 200 mg ORAL QID Objective PHYSICAL EXAM: Vital Signs: BP 150/77 Pulse 89 Temp 37.2 ?C (99 ?F) (Oral) Resp 18 Ht 152.4 cm (5') Wt 70.7 kg (155 lb 13.8 oz) SpO2 99% BMI 30.44 kg/m? Physical Exam Abdominal: Soft. There is tenderness (around site of drain). Bloody purulent fluid in drain. Vitals reviewed. DATA: Diagnostic Tests Reviewed for Today's Visit: Most recent labs and imaging results. Micro: Abscess fluid cult pending, has GPC and GNB on gm stain Recent Labs 10/12/17 0635 10/11/17 0431 10/10/17 0830 10/10/17 0357 WBC 7.81 8.18 7.98 8.61 -- HB 7.4* 7.4* 7.4* 6.1* -- HCT 24.3* 23.4* 23.4* 19.6* -- PLT 224 211 207 195 -- NEUTNUM 5.87 6.20* 6.63* -- CREAT -- 0.94 -- 1.63* No results found for: VANCORA Impression/Recommendations Principal Problem: Intra-abdominal abscess (HCC) POA: Yes Assessment AND Plan: continue iv meropenem, await culture. CKD (chronic kidney disease) stage 3, GFR 30-59 ml/min POA: Yes Assessment AND Plan: Resolved Problems: * No resolved hospital problems. * SIGNATURE: Misael Wei MD PATIENT NAME: Dia Mccullough DATE: October 12, 2017 TIME: 1:46 PM PAGER/CONTACT #: [phone] CONSULT Observed: 10/12/2017 Status: COMPLETED Source: [place] 11:39 AM CLINIC OTHER CAMPUS REPOSITORY HNO ID: [id number] Author: Lacy Valdez Service: Plastic Surgery Author Type: Resident Type: Consults Filed: 10/12/2017 8:12 PM Note Text: Plastic Surgery Consult Note: HPI: 77 y/o F who was admitted 10/11/17 for abdominal abscess/phlegmon found on CT at OSH. Patient has a complicated hospital course after being diagnosed with diverticulitis approx 4-5 weeks ago. She had spent some time in Hospice facility after declining operative intervention. She also has a history of DVT/PE with history of oral anticoagulation use. This was stopped and then subsequently restarted after a diagnosis of a new DVT of her lower extremities recently. Patient states that a couple of days ago she noticed bleeding and oozing from her LLE. She doesn't recall injuring it. It did begin draining and since then the pain has significantly reduced. Plastic surgery was evaluated for possible debridement of a LLE hematoma. 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 Hansen - Inflammatory polyarthropathy - Normocytic anemia - PE (pulmonary thromboembolism) ([facility]) 01/05/14 Bilat, extensive - Pulmonary embolism without acute cor pulmonale - Pure hypercholesterolemia - Sicca syndrome - Unspecified essential hypertension - Unspecified gastritis and gastroduodenitis without mention of hemorrhage - Urinary tract infection, site not specified - Venous insufficiency (chronic) (peripheral) - Vitamin D deficiency PAST SURGICAL HISTORY Procedure Laterality Date - CATARACT EXTRACTION HX Right - PARTIAL HIP REPLACEMENT Right 04/2013 - PAST SURGICAL HISTORY OF hernia repair - PAST SURGICAL HISTORY OF 11/2012 L3-L4 laminectomy and fusion - PAST SURGICAL HISTORY OF 11/2012 Back fusion surgery - TOTAL HIP REPLACEMENT 05/10/2013 right hip replacement - VENOUS DUPLEX BOTH LOWER EXTREMITIES 05/12/2016 No current facility-administered medications on file prior to encounter. Current Outpatient Prescriptions on File Prior to Encounter: predniSONE (DELTASONE) 5 mg tablet Take 5 mg by mouth twice daily. ondansetron orally disintegrating (ZOFRAN ODT) 4 mg disintegrating tablet Take 1 tablet by mouth every 6 hours as needed for Nausea/Vomiting. hydrochlorothiazide (HYDRODIURIL, ESIDRIX) 25 mg tablet Take 1 tablet by mouth once daily. 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 [OTHER] Other PE: 10/12/17 0346 10/12/17 0755 10/12/17 1602 10/12/17 1943 BP: 160/87 150/77 140/66 147/74 Pulse: 98 89 102 107 Resp: Temp: 36.2 ?C (97.2 ?F) 37.2 ?C (99 ?F) 37 ?C (98.6 ?F) 36.7 ?C (98.1 ?F) TempSrc: Temporal Artery Oral Oral Oral SpO2: 99% 99% 100% 99% Weight: Height: Gen: Awake, alert, coherent. Lower extremities: Bilateral edema with signs of chronic venous insufficiency. LLE: ~15X20 cm area of hemorrhagic blister-partially open with extruding clot over pretibial area. No active bleeding. Surrounding skin with ecchymosis extending up midshaft and down through dorsum and plantar aspect of heel. Signs of chronic venous insufficiency and swelling. No signs of infection or erythema. A/P: 77 y/o F with LLE hematoma on anticoagulation -We discussed the options of both surgical and nonsurgical intervention for this wound. Patient has a large LLE hematoma that would possibly benefit from debridement in the OR. She would likely be left with a large LE wound/defect that would require wound care and possible skin grafting in the future. This would require holding her anticoagulation for the perioperative period. She also has poor donor site availability given her thin skin and steroid use. The benefit of debridement would be evacuation of clot, faster clot resorption, and excision of necrotic skin that could potentially be a nidus for infection. -At this time patient would like to proceed with nonsurgical treatment. She feels that debridement in the OR with plans for skin grafting in the future would still leave her with an open wound and a new donor site wound. Nonsurgical care would involve continued local wound care with planned follow up with the wound care center in [place] for close follow up. She understands this will likely take months to heal and she does run the risk of developing an infection of this leg. -Discussed with Dr. Casey. Lacy Valdez MD CASE MGT INIT Observed: 10/12/2017 Status: COMPLETED Source: [facility] 9:55 AM CLINIC OTHER CAMPUS REPOSITORY HNO ID: [id number] Author: Joan (Rn) JANET Masters Service: Care Management Author Type: Registered Nurse Type: Care Mgt Initial Assessment Filed: 10/12/2017 10:02 AM Note Text: CARE MANAGEMENT: ASSESSMENT AND DISCHARGE PLAN SERVICE DATE: 10/12/2017 SERVICE TIME: 955 PRIMARY CARE PHYSICIAN: Mallorie Wheeler MD ADMISSION STATUS: Inpatient Needs Prior to Discharge: Wound Care;Home Care Order;OT/PT Evaluation MEDICAL: Patient/Charrer Stated Goals: To improve my functional status Health Insurance: [employer] MEDICARE PPO A[employer]na Medicare Health Issues Impacting Discharge Plan: None Last Admission Date: Previous admit date: 08/24/2017 Is this Within the Past 30 days? No Advance Directive: Health Literacy: 1. How often do you need to have someone help you when you read instructions, pamphlets, or other written material from your doctor or pharmacy? Never - 1 2. How confident are you filling out medical forms by yourself? Extremely - 1 If Patient scores > 3 on either question, the following interventions were put into place: Patient did not score > 3 FUNCTIONAL AND COGNITIVE/BEHAVIORAL PRIOR TO ADMISSION: Baseline Mental Status: Alert AND Oriented, Person, Place , Time and Situation Functional Status: Independent Does Patient Currently Receive Any Community Services or Home Care? None Equipment Prior to Admission: Walker Wheelchair Has the Patient Been in a Correction Facility in the Past 30 days? No SOCIAL: Living Arrangement: Home Lives With: Alone Financial Resources: Retired Primary Contact: Extended Emergency Contact Information Primary Emergency Contact: Luis Mccullough Relation: Son Supportive: Yes Other Important Patient Contacts: None Caregiver Assessment: Caregiver is ready, willing and able to meet the patient's needs as recommended by the inter-professional team? Yes Patient's transition needs and plan for meeting these needs: Family available to help as needed. Does the patient have an acute stroke diagnosis, or has the patient had a stroke during this admission? No Medication Adherence: I am convinced of the importance of my prescription medication: Agree completely - 0 I worry that my prescription medication will do more harm than good to me Disagree completely - 0 I feel financially burdened by my [id number] expenses for my prescription medication: Disagree mostly -0 Patient is categorized as low risk < 2 Are you interested in bedside delivery of your medications? Yes Food Concerns: In the Last Month, Have You had Trouble Getting Food? No trouble getting food During the Last Month, Have You Worried Whether Your Food Would Run Out Before You Had Enough Money to Buy More? No Is the Patient Psychosocially Complex? No ASSESSMENT AND PLAN: Medical Needs: Fall risk or frequent falls and Wound Care - active or potential Psychosocial Needs: None FREEDOM OF CHOICE EXPLAINED: Yes HHC POTENTIAL TRANSITION PLANS Home Home [facility]dc OT/PT Chart reviewed, spoke with RN. Spoke with pt at bedside who reports she is from a single story home alone, but has family support. Would like [facility] for wound care and would be agreeable to home PT/OT if needed. Await PT/OT eval (ordered) for further planning. SIGNATURE: Joan Masters RN PATIENT NAME: Dia Mccullough DATE: October 12, 2017 TIME: 9:56 AM PAGER/CONTACT #: [phone] CONSULT PROG Observed: 10/12/2017 Status: COMPLETED Source: [place] 9:18 AM CLINIC OTHER CAMPUS REPOSITORY O ID: [id number] Author: Shauna Pulido Service: General Surgery Author Type: Resident Type: Consult Progress Note Filed: 10/12/2017 9:21 AM Note Text: Attestation signed by Khai Lria at 10/12/2017 1:22 PM I personally saw and examined the patient. I reviewed the resident's note. I agree with the resident's assessment and plan unless otherwise noted below. Emergency General Surgery Progress Note SERVICE DATE: 10/12/2017 SUBJECTIVE: Drain placed into pre-sacral fluid collection by IR yesterday. Patient complains of some tenderness at the drain entry site. Denies intra-abdominal pain. +BM. Denies nausea and vomiting. Tolerating diet DIET REGULAR OBJECTIVE: Vitals: Temp (24hrs), Av.8 ?C (98.2 ?F), Min:36.2 ?C (97.2 ?F), Max:37.2 ?C (99 ?F) BP 150/77 Pulse 89 Temp 37.2 ?C (99 ?F) (Oral) Resp 18 Ht 152.4 cm (5') Wt 70.7 kg (155 lb 13.8 oz) SpO2 99% BMI 30.44 kg/m? O2 Therapy: Room Air IANDO: Date 10/11/17 07 - 10/12/1759 10/12/17 07 - 10/13/17 0659 Shift 9087-8360 0121-8394 2887-7265 24 Hour Total 5057-2910 2164-5956 3654-1830 24 Hour Total I N T A K E PO 360 120 480 PO 360 120 480 IV 1100 1100 1000 1000 LR 1000 1000 1000 1000 Meropenem (Merrem) 100 100 Irrigants 5 5 Irrigant/Flush Amount In (Drain/Tube 10/11/17 Toby Sherwood Left Lower Quadrant Abdomen Drain #1) 5 5 Shift Total 1389 817 9489 1000 1000 O U T P U T Urine 2 3 5 Urine Not Saved 2 3 5 Tubes 14 12.5 26.5 Drain/Tube Output (Drain/Tube 10/11/17 Toby Sherwood Left Lower Quadrant Abdomen Drain #1) 14 12.5 26.5 # of BMs Number of BMs 1 x 1 x Shift Total 16 15.5 31.5 Weight (kg) 70.7 70.7 70.7 70.7 70.7 70.7 70.7 70.7 MEDICATIONS Current Facility-Administered Medications: acetaminophen 650 mg tab(s) (TYLENOL) 650 mg ORAL q 4 H PRN iv contrast (radiology procedure) INTRAVENOUS DIRECTED PRN enteric contrast (radiology procedure) ORAL DIRECTED PRN enoxaparin 70 mg injection (LOVENOX) 1 mg/kg/dose SUBCUTANEOUS q 24 HR HYDROcodone 5 mg - acetaminophen 325 mg tablet (NORCO) 1 tablet ORAL q 4 H PRN polyethylene glycol 3350 17 g packet (MIRALAX, GLYCOLAX) 17 g ORAL DAILY metoprolol tartrate (short acting) 25 mg tab(s) (LOPRESSOR) 25 mg ORAL q 12 H acetaminophen 650 mg tab(s) (TYLENOL) 650 mg ORAL q 6 H PRN meropenem 1 g in NaCl 0.9% 100 mL MB+ (MERREM) 1 g INTRAVENOUS q 12 H ondansetron orally disintegrating 4 mg tab(s) (ZOFRAN ODT) 4 mg ORAL q 6 H PRN predniSONE 5 mg tab(s) (DELTASONE) 5 mg ORAL BID PC predniSONE 2.5 mg tab(s) (DELTASONE) 2.5 mg ORAL DAILY wDINNER pantoprazole DR 40 mg tab(s) (PROTONIX) 40 mg ORAL DAILY (6 AM) saliva substitute combo no.9 15 mL (BIOTENE mouthwash) 15 mL MUCOUS MEMBRANE (TOPICAL MOUTH AND THROAT) 5X/DAY benzocaine-menthol 1 Lozenge (CEPACOL) 1 Lozenge MUCOUS MEMBRANE (TOPICAL MOUTH AND THROAT) q 2 H PRN 0.9% NaCl 3-5 mL 3-5 mL INTRAVENOUS q 12 H lactated ringers infusion 100 mL/hr INTRAVENOUS CONTINUOUS guaiFENesin 200 mg oral liquid (ROBITUSSIN) 200 mg ORAL QID Labs: Recent Labs 10/12/17 0635 10/11/17 0431 10/10/17 0357 NA -- 142 -- 142 K -- 4.1 -- 3.3* CHLOR -- 109* -- 108* CO2 -- 29 -- 28 BUN -- 20* -- 34* CREAT -- 0.94 -- 1.63* GLUC -- 90 -- 97 ANION -- 8 -- 9 CA -- 8.0* -- 7.6* ALB -- -- -- 1.7* AST -- -- -- 5* ALT -- -- -- 12 ALKPHOS -- -- -- 40* TBILI -- -- -- 0.2 WBC 7.81 8.18 7.98 < > -- HB 7.4* 7.4* 7.4* < > -- HCT 24.3* 23.4* 23.4* < > -- PLT 224 211 207 < > -- INR -- 0.93 -- -- < > = values in this interval not displayed. Exam: GENERAL: No distress, Alert NEURO: AANDOx3, CN II-XII grossly intact HEENT: normocephalic, atraumatic LUNGS: Unlabored breathing CARDIAC: Regular rate and rhythm as above ABDOMEN: Soft, Non-tendet, non-distended. No rebound or guarding. TTP at LLQ drain site. EXTREMITIES: LLE with chronic venous skin changes wrapped. Motion and sensation intact SKIN: Skin color, texture, turgor normal, No rashes or lesions ASSESSMENT AND PLAN: Active Hospital Problems Diagnosis Date Noted - Intra-abdominal abscess (HCC) 10/08/2017 - Traumatic hematoma of left lower leg 10/08/2017 - Leg hematoma, left, initial encounter 10/08/2017 - Curry disease Chronic - Venous insufficiency (chronic) (peripheral) - CKD (chronic kidney disease) stage 3, GFR 30-59 ml/min 11/28/2014 - Pulmonary emboli (HCC) 01/30/2014 Overview Note: clinically resolved - DVT (deep venous thrombosis) (HCC) 01/08/2014 Overview Note: recurrent 77 year old female with diverticulitis and presacral fluid/gas collection. -Regular diet - Continue ADRIÁN drain - Abx per ID - IR plans CT pelvis with abscessogram in 1 week. - Therapeutic lovenox per hematology - she will need to have an outpatient colonoscopy in 6-8 weeks after discharge. Shauna Pulido MD General Surgery PGY-4 October 12, 2017 9:21 AM [facility] #: Pager: [phone] CONSULT PROG Observed: 10/12/2017 Status: COMPLETED Source: [place] 8:00 AM [facility] OTHER CAMPUS REPOSITORY HNO ID: [id number] Author: Antione Irizarry Service: Hematology/Oncology Author Type: Physician Type: Consult Progress Note Filed: 10/12/2017 8:33 AM Note Text: CONSULT PROGRESS NOTE SERVICE DATE: 10/12/2017 SERVICE TIME: 8 AM CONSULTING SERVICE: HemOnc Subjective INTERVAL HPI: CT guided placement of abscess drainage catheter on 10/11/17. Patient denies abdominal pain. No dyspnea. Some pain in left leg while standing. On Lovenox. Current hospital medications: acetaminophen 650 mg tab(s) (TYLENOL) 650 mg ORAL q 4 H PRN iv contrast (radiology procedure) INTRAVENOUS DIRECTED PRN enteric contrast (radiology procedure) ORAL DIRECTED PRN enoxaparin 70 mg injection (LOVENOX) 1 mg/kg/dose SUBCUTANEOUS q 24 HR HYDROcodone 5 mg - acetaminophen 325 mg tablet (NORCO) 1 tablet ORAL q 4 H PRN polyethylene glycol 3350 17 g packet (MIRALAX, GLYCOLAX) 17 g ORAL DAILY metoprolol tartrate (short acting) 25 mg tab(s) (LOPRESSOR) 25 mg ORAL q 12 H acetaminophen 650 mg tab(s) (TYLENOL) 650 mg ORAL q 6 H PRN meropenem 1 g in NaCl 0.9% 100 mL MB+ (MERREM) 1 g INTRAVENOUS q 12 H ondansetron orally disintegrating 4 mg tab(s) (ZOFRAN ODT) 4 mg ORAL q 6 H PRN predniSONE 5 mg tab(s) (DELTASONE) 5 mg ORAL BID PC predniSONE 2.5 mg tab(s) (DELTASONE) 2.5 mg ORAL DAILY wDINNER pantoprazole DR 40 mg tab(s) (PROTONIX) 40 mg ORAL DAILY (6 AM) saliva substitute combo no.9 15 mL (BIOTENE mouthwash) 15 mL MUCOUS MEMBRANE (TOPICAL MOUTH AND THROAT) 5X/DAY benzocaine-menthol 1 Lozenge (CEPACOL) 1 Lozenge MUCOUS MEMBRANE (TOPICAL MOUTH AND THROAT) q 2 H PRN 0.9% NaCl 3-5 mL 3-5 mL INTRAVENOUS q 12 H lactated ringers infusion 100 mL/hr INTRAVENOUS CONTINUOUS guaiFENesin 200 mg oral liquid (ROBITUSSIN) 200 mg ORAL QID Objective PHYSICAL EXAM: Physical Exam Performed: BP 150/77 Pulse 89 Temp (Src) 99 (Oral) Resp 18 Ht 5' 0 (1.52m) Wt 155 lb 13.8 oz (70.7kg) SpO2 99% BMI 30.44 kg/(m2). GENERAL: Alert, no distress, cooperative, SKIN: Scattered bruising. HEENT: Anicteric. LUNGS: Lungs clear to auscultation. Unlabored breathing. CARDIAC: Normal S1 and S2; no rubs, murmurs, or gallops ABDOMEN: Abdomen soft, non-tender, non-distended, BS normal EXTREMITIES: left leg- wrapped in spike. + hematoma. NEURO: No focal deficit. DATA: Diagnostic tests reviewed for today's visit: CBC: Recent Labs 10/12/17 0635 10/11/17 0431 10/10/17 0830 10/09/17 0630 WBC 7.81 8.18 7.98 8.61 15.73* HB 7.4* 7.4* 7.4* 6.1* 7.8* HCT 24.3* 23.4* 23.4* 19.6* 25.4* PLT 224 211 207 195 264 MCV 102.5* 99.6* 100.0* 104.3* 105.4* COAG: Recent Labs 10/11/17 1235 10/11/17430 APTT 73.5* 23.4 INR -- 0.93 BMP: Recent Labs 10/11/17 04310/10/17 0357 10/09/17 0630 GLUC 90 97 116* NA 142 142 138 K 4.1 3.3* 3.5 CHLOR 109* 108* 105 CO2 29 28 24 ANION 8 9 13 BUN 20* 34* 32* CREAT 0.94 1.63* 1.55* CHEM: Recent Labs 10/11/17 04310/10/17 0357 10/09/17 0630 ALB -- 1.7* -- TPROT -- 4.3* -- CA 8.0* 7.6* 8.0* MG -- -- 1.4* Impression/Recommendations 1. Sigmoid diverticulitis with 5cm pelvic abscess: - s/p CT guided placement of abscess drainage catheter on 10/11/17 - Continue ABX. ? 2. Bowel perforation 08/24/17:?she refused surgery at that time and was treated with ABX. ? 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 Used to be on coumadin which was stopped when she developed hematemesis in 08/2017. Developed DVT/PE while off Coumadin. Was placed on lovenox 1mg/kg BID- dose decreased to 1mg/kg daily due to hematoma. - Antiphospholipid ab pending. - Once patient is stable, consider switching back to Coumadin. She is followed by PCP for INR monitoring. She could not afford NOAC. ? 4. Severe Anemia: likey secondary to bleed and myelosuppression from antibiotics. Stable now. SIGNATURE: Antione Irizarry MD PATIENT NAME: Dia Mccullough DATE: October 12, 2017 TIME: 8 AM PAGER: [phone] HEMOGRAM/DIFF Collected: 10/12/2017 Status: F Source: [facility] 6:35 AM HEALTH SYSTEM REPOSITORY TYPE CODE TESTS RESULT OUT OF REFERENCE UNITS RANGE LAB WBC(LOINC) 3.98-10.04 thou/cmm WBC 7.81 LAB RBC(LOINC) 3.93-5.22 mil/cmm Low RBC 2.37 LAB HGB(LOINC) 11.2-15.7 g/dL Low Hgb 7.4 LAB HCT(LOINC) 34.1-44.9 % Low Hct 24.3 LAB MCV(LOINC) 79.4-94.8 fl MCV High 102.5 LAB MCH(LOINC) 25.6-32.2 pg MCH 31.2 LAB MCHC(LOINC 31.6-34.8 % ) Low MCHC 30.5 LAB RDW(LOINC) 11.7-14.4 % RDW High 21.8 LAB RDWSD(LOIN 36.4-46.3 fl C) RDW SD High 79.5 LAB PLT(LOINC) 182-369 thou/cmm Platelet 224 LAB MPV(LOINC) 9.4-12.3 fl MPV 9.9 LAB SEG(LOINC) % Seg Neutrophil 75.2 LAB IGRE(LOINC % ) Immature Grans 2.00 LAB LYMPH(LOIN % C) Lymphocyte 15.5 LAB MNO(LOINC) % Monocyte 6.7 LAB EOSIN(LOIN % C) Eosinophil 0.3 LAB BASO(LOINC % ) Basophil 0.3 LAB SEGN(LOINC 1.56-6.13 thou/cmm ) Abs. Neut (ANC) 5.87 LAB IGAB(LOINC 0.00-0.05 thou/cmm ) Abs High Immature Grans 0.16 LAB LYMN(LOINC 1.18-3.74 thou/cmm ) Abs. Lymph 1.21 LAB MONON(LOIN 0.27-0.70 thou/cmm C) Abs. Greene 0.52 LAB EOSN(LOINC 0.00-0.31 thou/cmm ) Abs. Eosin 0.02 LAB BASON(LOIN 0.01-0.08 thou/cmm C) Abs. Baso 0.02 Performed By: #### [id number] #### [facility] [id number] IMAGE-GUIDED DRAINAGE Observed: 10/11/2017 Status: F Source: [facility] [place] [id number] 4:34 PM HEALTH SYSTEM REPOSITORY Performed at [facility] APPROVED BY: Phong Rush MD EXAM TITLE: CT GUIDED DRAINAGE OF PELVIC FLUID COLLECTION DATE: 10/11/2017 15:48 COMPARISON: Outside CT scan from October 08, 2017. CLINICAL INDICATION/HISTORY: The patient is a 77-year-old female with pelvic abscess adjacent to the sigmoid colon.. CT Radiation dose: Integrated dose-length product (DLP) for this visit = 382.83 mGy*cm. CT Dose Reduction Employed: Automated exposure control (AEC) was used. TECHNIQUE: Informed consent was obtained from the patient. The risks, benefits, and alternatives to the procedure were explained. The patient agrees to the procedure. The patient was evaluated for th e safety and appropriateness of conscious sedation and the Moderate Sedation Record was completed. The patient was sedated with intravenous Fentanyl and Versed administered by the trained independent radiology nurse observer. The patient's vital signs were monitored during the procedure by the trained independent radiology nurse observer. Total intra-service work encounter time was approximately 0 hours and 15 minutes. The patient was placed in a supine position and with CT guidance an appropriate skin entrance site was identified, prepped, and anesthetized. A trocar needle was passed into the lesion. A tiny amount of fluid was extracted from the fluid collection and then with guidewire exchange and Seldinger technique a 8-Sinhala Skater APDL drainage catheter was deployed and locked in place. Aspiration specimens were sent to microbiology. The drainage catheter was secured to the skin and hooked to a Toby-Sherwood suction bulb. There were no apparent complications. The patient was discharged from the radiology department and returned to the floor. FINDINGS: There is an abnormal fluid collection anterior to the sacrum and adjacent to the sigmoid colon. Approximately 25 cc of purulent material was aspirated. IMPRESSION: Technically successful CT-guided drainage of pelvic fluid collection as described in the body of the report. CT IMAGING GUIDANCE Observed: 10/11/2017 Status: F Source: [facility] 4:34 PM HEALTH SYSTEM PERITONEAL REPOSITORY Performed at [facility] APPROVED BY: Phong Rush MD EXAM TITLE: CT GUIDED DRAINAGE OF PELVIC FLUID COLLECTION DATE: 10/11/2017 15:48 COMPARISON: Outside CT scan from October 08, 2017. CLINICAL INDICATION/HISTORY: The patient is a 77-year-old female with pelvic abscess adjacent to the sigmoid colon.. CT Radiation dose: Integrated dose-length product (DLP) for this visit = 382.83 mGy*cm. CT Dose Reduction Employed: Automated exposure control (AEC) was used. TECHNIQUE: Informed consent was obtained from the patient. The risks, benefits, and alternatives to the procedure were explained. The patient agrees to the procedure. The patient was evaluated for th e safety and appropriateness of conscious sedation and the Moderate Sedation Record was completed. The patient was sedated with intravenous Fentanyl and Versed administered by the trained independent radiology nurse observer. The patient's vital signs were monitored during the procedure by the trained independent radiology nurse observer. Total intra-service work encounter time was approximately 0 hours and 15 minutes. The patient was placed in a supine position and with CT guidance an appropriate skin entrance site was identified, prepped, and anesthetized. A trocar needle was passed into the lesion. A tiny amount of fluid was extracted from the fluid collection and then with guidewire exchange and Seldinger technique a 8-Sinhala Skater APDL drainage catheter was deployed and locked in place. Aspiration specimens were sent to microbiology. The drainage catheter was secured to the skin and hooked to a Toby-Sherwood suction bulb. There were no apparent complications. The patient was discharged from the radiology department and returned to the floor. FINDINGS: There is an abnormal fluid collection anterior to the sacrum and adjacent to the sigmoid colon. Approximately 25 cc of purulent material was aspirated. IMPRESSION: Technically successful CT-guided drainage of pelvic fluid collection as described in the body of the report. BRIEF OP NOT Observed: 10/11/2017 Status: COMPLETED Source: [facility] 4:27 PM CLINIC OTHER CAMPUS REPOSITORY HNO ID: [id number] Author: Phong Rush Service: Radiology Author Type: Physician Type: Brief Op Note Filed: 10/11/2017 4:31 PM Note Text: INTERVENTIONAL RADIOLOGY POST PROCEDURE NOTE DATE: 10/11/17 NAME: Dia Mccullough LOG ID: [id number] Pre-Procedure Diagnosis: Pelvic abscess Cooker Meal: Surgeon(s) and Role: * Phong Rush - Primary Procedure: CT guided placement of abscess drainage catheter Anesthesia: Moderate sedation Findings: ~ 25 cc pus. 8 Fr 35 cm Skater APDL drain placed. Estimated Blood Loss: 0 ml Specimen: To microbiology Complications: None Post-Op/Post-Procedure Diagnosis: Pelvic abscess Plan: CT scan of pelvis and abscessogram in one week. Observed: 10/11/2017 Status: F Source: [facility] 4:10 PM HEALTH SYSTEM AND AER REPOSITORY Test performed at [facility] Moderate Mixed anaerobic lara. No further identification to follow. Plates will be held for 5 days. Many WBC Few Gram negative bacilli Few Gram positive cocci ORGANISM: Klebsiella pneumoniae (ID: 1) Few ORGANISM: Khadijah albicans (ID: 2) Moderate ORGANISM: Clostridium perfringens (ID: 3) Many Performed By: #### C_ANA #### [place] [address] HISTORY PHYSICAL Observed: 10/11/2017 Status: COMPLETED Source: [place] 3:55 PM [facility] OTHER [place] REPOSITORY HNO ID: [id number] Author: Phong Rush Service: Radiology Author Type: Physician Type: HANDP Filed: 10/11/2017 3:56 PM Note Text: UPDATED HISTORY AND PHYSICAL EXAMINATION Date: 10/11/17 Name: Dia Mccullough PHYSICAL EXAM MUST BE COMPLETED ON ADMISSION The History and Physical (completed in the past 30 days) has been reviewed and the patient has been examined. The contents accurately reflect the patient's condition with the following additions or revisions since the HANDP was completed. Examination indicates no changes. This HANDP can be found in the Electronic Medical Record dated 10/08/2017 @ 11:51 PM. CONSULT PROG Observed: 10/11/2017 Status: COMPLETED Source: [place] 3:22 PM [facility] OTHER CAMPUS REPOSITORY HNO ID: [id number] Author: Misael Wei Service: Infectious Disease Author Type: Physician Type: Consult Progress Note Filed: 10/11/2017 3:38 PM Note Text: INFECTIOUS DISEASE CONSULT PROGRESS NOTE SERVICE DATE: 10/11/2017 SERVICE TIME: 3:22 PM Subjective INTERVAL HISTORY / PERTINENT Review of Systems Constitutional: Negative for fever. Gastrointestinal: Negative for abdominal pain. Was constipated, given miralax, now having increased stool output but not watery and only 2 so far today. Pt thinks from antibiotic and refused it earlier. Going for repeat CT abd and possible drain placement. Current Facility-Administered Medications: heparin iv infusion (STANDARD NOMOGRAM) 25,000 units in NaCl 0.45% 250 mL PREMIX 0-3,000 Units/hr INTRAVENOUS CONTINUOUS And heparin RATE CHANGE bolus 1,000-10,000 Units for subtherapeutic aptt results 1,000-10,000 Units INTRAVENOUS PRN HYDROcodone 5 mg - acetaminophen 325 mg tablet (NORCO) 1 tablet ORAL q 4 H PRN polyethylene glycol 3350 17 g packet (MIRALAX, GLYCOLAX) 17 g ORAL DAILY metoprolol tartrate (short acting) 25 mg tab(s) (LOPRESSOR) 25 mg ORAL q 12 H acetaminophen 650 mg tab(s) (TYLENOL) 650 mg ORAL q 6 H PRN meropenem 1 g in NaCl 0.9% 100 mL MB+ (MERREM) 1 g INTRAVENOUS q 12 H ondansetron orally disintegrating 4 mg tab(s) (ZOFRAN ODT) 4 mg ORAL q 6 H PRN predniSONE 5 mg tab(s) (DELTASONE) 5 mg ORAL BID PC predniSONE 2.5 mg tab(s) (DELTASONE) 2.5 mg ORAL DAILY wDINNER pantoprazole DR 40 mg tab(s) (PROTONIX) 40 mg ORAL DAILY (6 AM) saliva substitute combo no.9 15 mL (BIOTENE mouthwash) 15 mL MUCOUS MEMBRANE (TOPICAL MOUTH AND THROAT) 5X/DAY benzocaine-menthol 1 Lozenge (CEPACOL) 1 Lozenge MUCOUS MEMBRANE (TOPICAL MOUTH AND THROAT) q 2 H PRN 0.9% NaCl 3-5 mL 3-5 mL INTRAVENOUS q 12 H lactated ringers infusion 100 mL/hr INTRAVENOUS CONTINUOUS guaiFENesin 200 mg oral liquid (ROBITUSSIN) 200 mg ORAL QID Objective PHYSICAL EXAM: Vital Signs: BP 138/63 Pulse 96 Temp 36.8 ?C (98.2 ?F) (Temporal Artery) Resp 18 Ht 152.4 cm (5') Wt 70.7 kg (155 lb 13.8 oz) SpO2 99% BMI 30.44 kg/m? Physical Exam Abdominal: Soft. She exhibits no distension. There is no tenderness. Musculoskeletal: Left leg dressing in place. Reviewed Wound Center photo- has subcu fluid collection, hematoma. Plastics to be consulted. Vitals reviewed. DATA: Diagnostic Tests Reviewed for Today's Visit: Most recent labs Micro: No data Recent Labs 10/11/17 0431 10/10/17 0830 10/10/17 0357 10/09/17 0630 WBC 7.98 8.18 8.61 -- 15.73* HB 7.4* 7.4* 6.1* -- 7.8* HCT 23.4* 23.4* 19.6* -- 25.4* PLT 207 211 195 -- 264 NEUTNUM 6.20* 6.63* -- 14.06* CREAT 0.94 -- 1.63* 1.55* No results found for: VANCORA Impression/Recommendations Principal Problem: Intra-abdominal abscess (HCC) POA: Yes Assessment AND Plan: await repeat ct, possible percutaneous drain. Sepsis- improving Traumatic hematoma of left lower leg POA: Yes Assessment AND Plan: watch for sign of infection. If debrided per Plastics, send culture. Loose stools likely related to miralax, possibly meropenem, but she needs to continue the antibiotic. I have discussed with her. Alternative therapy eg a cephalosporin would require addition of anaerobic coverage, since she is allergic to flagyl would need to give clindamycin or tigecycline, each of which have their own issues. Resolved Problems: * No resolved hospital problems. * SIGNATURE: Misael Wei MD PATIENT NAME: Dia Mccullough DATE: October 11, 2017 TIME: 3:22 PM PAGER/CONTACT #: [phone] CONSULT PROG Observed: 10/11/2017 Status: COMPLETED Source: [facility] 3:13 PM CLINIC OTHER CAMPUS REPOSITORY HNO ID: [id number] Author: Laly Allen) JANET Justice Service: Wound/Ostomy Author Type: Registered Nurse Type: Consult Progress Note Filed: 10/11/2017 3:18 PM Note Text: WOUND CARE NURSE CONSULT NOTE SERVICE DATE: 10/11/2017 SERVICE TIME: 1450 REASON FOR VISIT: Wound TIME SPENT (minutes): 30 Documentation from Wound Expert can be found in scanned documents. Patient seen by Carol Neal BUSINESS ADMINISTRATION PROGRAM CHAIR and lacey RN. Left lower leg hematoma with area of congealed blood and distal fluid filled area. Xeroform, dry gauze dressing, and SPIKE wrap daily. Plastic Surgery consulted for hematoma evacuation. Wound care to follow. SIGNATURE: Laly Justice RN PATIENT NAME: Dia Mccullough DATE: October 11, 2017 TIME: 3:13 PM CONTACT#: [id number] ACTIVATED PTT Collected: 10/11/2017 Status: F Source: [facility] 12:35 PM HEALTH SYSTEM REPOSITORY TYPE CODE TESTS RESULT OUT OF REFERENCE UNITS RANGE LAB APTT(LOINC 22.0-34.0 sec ) High Activated PTT 73.5 Performed By: #### APTT #### [place] [address] ALLIED HEALTH Observed: 10/11/2017 Status: COMPLETED Source: [place] 12:05 PM [facility] OTHER CAMPUS REPOSITORY HNO ID: [id number] Author: Chaplain Daley (Chaplain) Service: Spiritual Care Author Type: Paint Line Production Supervisor Type: Allied Health Filed: 10/11/2017 12:06 PM Note Text: Spiritual Care Record ? Anointing/[place] PATIENT NAME: Dia Mccullough DATE: October 11, 2017 NOTE: Patient was anointed by Fr. ireland from [facility] on (date): 10/11/17. Signature: Chaplain Thuy Question? Please contact the Spiritual Care Department for assistance. This is an electronically created document. IF PRINTED, PLEASE DO NOT REMOVE FROM THE CHART OR MODIFY PRINTED COPY. ALLIED HEALTH Observed: 10/11/2017 Status: COMPLETED Source: [place] 11:47 AM [facility] OTHER CAMPUS REPOSITORY HNO ID: [id number] Author: Chaplain Daley (Chaplain) Service: Spiritual Care Author Type: Paint Line Production Supervisor Type: Allied Health Filed: 10/11/2017 12:05 PM Note Text: SPIRITUALCARE Spiritual Care Visit- Brief Note Name: Dia Mccullough Date: October 11, 2017 Notes: Per PT has multiple health issues and was scheduled for a test. She looked to be calm, took a prayer and was thankful for the [place] support. Paint Line Production Supervisor Signature: Chaplain Thuy To contact the Spiritual Care Department: Please call [phone] or Page the On-Call Paint Line Production Supervisor at pager [phone] Thank you for the opportunity to be of service. This is an electronically created document. IF PRINTED, PLEASE DO NOT REMOVE FROM THE CHART OR MODIFY PRINTED COPY. PROGRESS Observed: 10/11/2017 Status: COMPLETED Source: [place] 9:22 AM [facility] OTHER CAMPUS REPOSITORY HNO ID: [id number] Author: Jose Maria Mittal Service: Hospital Medicine Author Type: Physician Type: Progress Notes Filed: 10/11/2017 9:44 AM Note Text: DEPARTMENT OF HOSPITAL MEDICINE PROGRESS NOTE SERVICE DATE: 10/11/2017 SERVICE TIME: 9:22 AM Hospital Medicine/Primary Attending: Jose Maria Mittal MD NIGHT AND WEEKEND COVERAGE: After 7pm please page [phone] CHIEF COMPLAINT: left leg hematoma. Intraabdominal abscess. SUBJECTIVE: no abdominal pain. Had 3 soft BM. No nausea. Pain in left leg when standing otherwise none while laying down. OBJECTIVE: PHYSICAL EXAM: BP 138/63 Pulse 96 Temp (Src) 98.2 (Temporal Artery) Resp 18 Ht 5' 0 (1.52m) Wt 155 lb 13.8 oz (70.7kg) SpO2 99% BMI 30.44 kg/(m2). GENERAL: Alert, no distress, cooperative, SKIN: Skin color, texture, turgor normal. No rashes or lesions. OROPHARYNX: Lips, mucosa, and tongue normal. Teeth and gums normal. Oropharynx normal. LUNGS: Lungs clear to auscultation, Air entry good, Unlabored breathing. CARDIAC: Normal S1 and S2; no rubs, murmurs, or gallops ABDOMEN: Abdomen soft, non-tender, non-distended, BS normal EXTREMITIES: left leg- wrapped in spike. Opened and examined yesterday- has large hematoma in lower leg anteriorly. Small tearing of skin over the hematoma- no active bleeding. Today foot warm. DP present. NEURO: Grossly normal cognition, motor function, and cranial nerves III-XII MEDICATIONS: Current hospital medications: heparin iv infusion (STANDARD NOMOGRAM) 25,000 units in NaCl 0.45% 250 mL PREMIX 0-3,000 Units/hr INTRAVENOUS CONTINUOUS heparin RATE CHANGE bolus 1,000-10,000 Units for subtherapeutic aptt results 1,000-10,000 Units INTRAVENOUS PRN HYDROcodone 5 mg - acetaminophen 325 mg tablet (NORCO) 1 tablet ORAL q 4 H PRN polyethylene glycol 3350 17 g packet (MIRALAX, GLYCOLAX) 17 g ORAL DAILY metoprolol tartrate (short acting) 25 mg tab(s) (LOPRESSOR) 25 mg ORAL q 12 H acetaminophen 650 mg tab(s) (TYLENOL) 650 mg ORAL q 6 H PRN meropenem 1 g in NaCl 0.9% 100 mL MB+ (MERREM) 1 g INTRAVENOUS q 12 H ondansetron orally disintegrating 4 mg tab(s) (ZOFRAN ODT) 4 mg ORAL q 6 H PRN predniSONE 5 mg tab(s) (DELTASONE) 5 mg ORAL BID PC predniSONE 2.5 mg tab(s) (DELTASONE) 2.5 mg ORAL DAILY wDINNER pantoprazole DR 40 mg tab(s) (PROTONIX) 40 mg ORAL DAILY (6 AM) saliva substitute combo no.9 15 mL (BIOTENE mouthwash) 15 mL MUCOUS MEMBRANE (TOPICAL MOUTH AND THROAT) 5X/DAY benzocaine-menthol 1 Lozenge (CEPACOL) 1 Lozenge MUCOUS MEMBRANE (TOPICAL MOUTH AND THROAT) q 2 H PRN 0.9% NaCl 3-5 mL 3-5 mL INTRAVENOUS q 12 H lactated ringers infusion 100 mL/hr INTRAVENOUS CONTINUOUS guaiFENesin 200 mg oral liquid (ROBITUSSIN) 200 mg ORAL QID DATA: Diagnostic tests reviewed for today's visit: CBC, Coags, BMP, Mg, Phos Recent Labs 10/11/17 0431 10/10/17 0830 10/10/17 0357 10/09/17 0630 WBC 7.98 8.18 8.61 -- 15.73* HB 7.4* 7.4* 6.1* -- 7.8* HCT 23.4* 23.4* 19.6* -- 25.4* PLT 207 211 195 -- 264 INR 0.93 -- -- -- APTT 23.4 -- -- -- NA 142 -- 142 138 K 4.1 -- 3.3* 3.5 CHLOR 109* -- 108* 105 CO2 29 -- 28 24 BUN 20* -- 34* 32* CREAT 0.94 -- 1.63* 1.55* GLUC 90 -- 97 116* CA 8.0* -- 7.6* 8.0* MG -- -- -- 1.4* P -- -- -- 3.6 Liver Function, Amylase, AND Lipase Recent Labs 10/10/17 0357 TPROT 4.3* ALB 1.7* ALT 12 AST 5* ALKPHOS 40* TBILI 0.2 Cardiac Enzymes Heme: No results for input(s): RETICP, ABSRETIC, LD, RITO, FE, TIBC, TRANSFERSAT in the last 24 hours. 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 Sigmoid diverticulitis with with 5cm pelvic abscess: minimal symptoms. On Abx- meropenem. Per surgeon who spoke with IR, difficult to drain percutaneously. Surgery team has considered to place drain surgically - ?transrectal or laparoscopically placed drain today. But patient is reluctant. I believe plan at this time would be to continue abx for now and follow up with imaging unless she becomes symptomatic- await surgery and ID to round. ? 2. Bowel perforation 08/24/17:?she refused surgery at that time and was treated with abx. Survived. ? 3. 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 Used to be on coumadin which was stopped when she developed hematemesis. Since her last PE/PE few weeks, was placed on lovenox 1mg/kg BID- dose decreased to 1mg/kg daily. Overnight lovenox was switched to iv heparin for possible procedure. Antiphospholipid ab pending. ? 4. Left leg bleeding/ hematoma: probably due to higher dose of lovenox for?CKD 3-4 Currently wrapped with dressing and SPIKE. ? 5. Episode of hematemesis 5 weeks ago while on coumadin-?managed with vitk. No scope done. ? 6. SVT this am: better with metoprolol. ? 7. Severe Anemia: due to bleed.? CKD and recent conditions contributing. No evidence of iron def. ? 8. Addision's disease: ? 9. CKD3 PLAN: Continue abx. Monitor for symptoms- nausea. Await further input from Surgery and ID. May switch back to lovenox if no procedure. Antiphospholipid ab pending- Hem/onc to decide on final anticoagulation treatment (coumadin). Cannot afford NOAC. VTE Prophylaxis: Patient is already anti-coagulated. Disposition: Home Plan of care discussed with: Patient SIGNATURE: Jose Maria Mittal MD PATIENT NAME: Dia Mccullough DATE: October 11, 2017 TIME: 9:22 AM PAGER/CONTACT #: [phone] INITAL EVALUATION (1) Observed: 10/11/2017 Status: F Source: [place] - PT 9:03 AM [facility] REPOSITORY [facility] Physical [facility] [address] [place], [place] [address] Fax REHABILITATION SERVICES INITIAL EVALUATION MR#: [id number] Acct: [id number] Name: DIA MCCULLOUGH Rep #: [id number] : 1940 77 From: Al WILDET, OCS, CSCS Referring Dr.: Alejo Ortega MD Status: REG RCR Insurance: [facility] [employer] Patient's Visit Information DIA MCCULLOUGH is a 77 year old F referred to Physical Therapy by Alejo Ortega with a diagnosis of weakness, debility. Date of Evaluation: 10/05/17 Physical Therapist: Al Cornell DPT, OC - Visit Plan Frequency: 3x /Week Duration: 4-6 Weeks Plan: 3x/week for 6 weeks:(Pt with clots in legs and lungs, frequent rests may be needed). 1. gastroc stretches. 2. LE, trunk, UE and functional strength, start HEP and work to gym,. 3. gait progression without AD adn balance. - Subjective Subjective: Perforated bowel August 24, ER sent to [facility]. Needed surgery and refused. Gave her three hours to live and was sent home to try to heal. Then had episode of dumping blood and went to ER and released to hospice Around august. Got better in hospice and went to [place]. Found clots in the legs and the lungs, sent to hospital on the 09/21 TCU and got out last Tuesday after about a week. Clots till there so she feels weak in the gut, legs and arms feel strong. Doctor sent her here to get stronger b/c she now has to use a walker and she did not need to prior. Worked out at in pool prior to this incident. Live alone in one story house. Get in and out of bed shower and toilet I. Tires easily and has to lie down throughout day. Showers and meals wear her out. Watches TV all day and that is abnormal for her. 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 - Objective Pt walks slowly with wh walker 150 feet x 2 [facility], tired but not SOB today. 12 bpm HR after walking.Legs are swollen and dark. can walk without AD but unsteady and slow with avoids heel strike and toe off and walks flat foot avoiding weight shift. Transfers are I with and without UE although confidence is low. Steps not tried today. LE aROM WFL except DF limited to -5 B adn very tight gastroc and soleus. Inv and ev WFL and 3+ strength. Knee aROM wFL and strength 3+. Hip AROM ext 0 degrees, abd 24, flexion 100, wekaness obvious in hips at 3/5. UE AROM WFL and 4- strength. reflexes 2/3 patella and achilels. Sensation LE WNL to gross light touch. - Balance Scores Functional Gait Assessment Score: 13 % Disability: 56.6700 - Goals Goal 1:: FGA to diminish fall risk. Goal Time Frame: 4-6 Weeks Goal 2:: Walk community without need AD Goal Time Frame: 4-6 Weeks Goal 3:: pt feel back 90% better adn redy to wrokout at [facility] I. Goal Time Frame: 4-6 Weeks Goal 4:: Patient have plan to get back out in garden Goal Time Frame: 4-6 Weeks - Rehabilitation Potential Physical Therapy Diagnosis: weakness and debility Rehabilitation Potential: Fair - Anticipated Interventions Patient/Client Instruction: Educate patient on: Condition, Plan of Care For the Purpose of:: To improve nutrient delivery to tissue, To increase oxygenation perfusion, To improve muscle performance and motor function Therapeutic Exercise to Include: Strength training, Balance training, Flexibilty training, Gait and locomotor training, Active ROM For the Purpose of:: To improve nutrient delivery to tissue, To increase oxygenation perfusion, To improve muscle performance and motor function, To improve ability to perform ADL's, To improve ability of physical actions for home/community/work/leisure Thank you for the opportunity to evaluate your patient. For Medicare and Medicare HMO plans, please review the plan of care and approve it. It will need to be FAXED BACK to us at [phone] for Medicare purposes. Please let me know if there are questions or concerns regarding this plan of care. Physician Signature: Date: <Electronically signed by Al Cornell DPT, OCS, CSCS> 10/11/17 0903 CC: Jared Romero MD; Alejo Ortega MD EBG Signed For Medicare only, by signing this I certify the plan of care. Physicians Signature Date CONSULT PROG Observed: 10/11/2017 Status: COMPLETED Source: [place] 8:30 AM CLINIC OTHER CAMPUS REPOSITORY HNO ID: [id number] Author: Antione Irizarry Service: Hematology/Oncology Author Type: Physician Type: Consult Progress Note Filed: 10/11/2017 11:43 AM Note Text: CONSULT PROGRESS NOTE SERVICE DATE: 10/11/2017 SERVICE TIME: 8 AM CONSULTING SERVICE: HemOnc Subjective INTERVAL HPI: Patient denies abdominal pain. No dyspnea. Some pain in left leg while standing. On heparin drip Current hospital medications: heparin iv infusion (STANDARD NOMOGRAM) 25,000 units in NaCl 0.45% 250 mL PREMIX 0-3,000 Units/hr INTRAVENOUS CONTINUOUS heparin RATE CHANGE bolus 1,000-10,000 Units for subtherapeutic aptt results 1,000-10,000 Units INTRAVENOUS PRN HYDROcodone 5 mg - acetaminophen 325 mg tablet (NORCO) 1 tablet ORAL q 4 H PRN polyethylene glycol 3350 17 g packet (MIRALAX, GLYCOLAX) 17 g ORAL DAILY metoprolol tartrate (short acting) 25 mg tab(s) (LOPRESSOR) 25 mg ORAL q 12 H acetaminophen 650 mg tab(s) (TYLENOL) 650 mg ORAL q 6 H PRN meropenem 1 g in NaCl 0.9% 100 mL MB+ (MERREM) 1 g INTRAVENOUS q 12 H ondansetron orally disintegrating 4 mg tab(s) (ZOFRAN ODT) 4 mg ORAL q 6 H PRN predniSONE 5 mg tab(s) (DELTASONE) 5 mg ORAL BID PC predniSONE 2.5 mg tab(s) (DELTASONE) 2.5 mg ORAL DAILY wDINNER pantoprazole DR 40 mg tab(s) (PROTONIX) 40 mg ORAL DAILY (6 AM) saliva substitute combo no.9 15 mL (BIOTENE mouthwash) 15 mL MUCOUS MEMBRANE (TOPICAL MOUTH AND THROAT) 5X/DAY benzocaine-menthol 1 Lozenge (CEPACOL) 1 Lozenge MUCOUS MEMBRANE (TOPICAL MOUTH AND THROAT) q 2 H PRN 0.9% NaCl 3-5 mL 3-5 mL INTRAVENOUS q 12 H lactated ringers infusion 100 mL/hr INTRAVENOUS CONTINUOUS guaiFENesin 200 mg oral liquid (ROBITUSSIN) 200 mg ORAL QID Objective PHYSICAL EXAM: Physical Exam Performed: BP 138/63 Pulse 96 Temp (Src) 98.2 (Temporal Artery) Resp 18 Ht 5' 0 (1.52m) Wt 155 lb 13.8 oz (70.7kg) SpO2 99% BMI 30.44 kg/(m2). GENERAL: Alert, no distress, cooperative, SKIN: Scattered bruising. HEENT: Anicteric. LUNGS: Lungs clear to auscultation. Unlabored breathing. CARDIAC: Normal S1 and S2; no rubs, murmurs, or gallops ABDOMEN: Abdomen soft, non-tender, non-distended, BS normal EXTREMITIES: left leg- wrapped in spike. + hematoma. NEURO: No focal deficit. DATA: Diagnostic tests reviewed for today's visit: CBC: Recent Labs 10/11/1743010/10/17 0830 10/09/17 0630 WBC 7.98 8.18 8.61 15.73* HB 7.4* 7.4* 6.1* 7.8* HCT 23.4* 23.4* 19.6* 25.4* PLT 207 211 195 264 MCV 100.0* 99.6* 104.3* 105.4* COAG: Recent Labs 10/11/17430 APTT 23.4 INR 0.93 BMP: Recent Labs 10/11/1743010/10/1735610/09/17 0630 GLUC 90 97 116* NA 142 142 138 K 4.1 3.3* 3.5 CHLOR 109* 108* 105 CO2 29 28 24 ANION 8 9 13 BUN 20* 34* 32* CREAT 0.94 1.63* 1.55* CHEM: Recent Labs 10/11/1743010/10/1735610/09/17 0630 ALB -- 1.7* -- TPROT -- 4.3* -- CA 8.0* 7.6* 8.0* MG -- -- 1.4* Impression/Recommendations 1. Sigmoid diverticulitis with 5cm pelvic abscess: - possible drain placement? Await a repeat CT scan to make further decision. - Continue ABX. ? 2. Bowel perforation 08/24/17:?she refused surgery at that time and was treated with ABX. ? 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 Used to be on coumadin which was stopped when she developed hematemesis in 08/2017. Developed DVT/PE while off Coumadin. Was placed on lovenox 1mg/kg BID- dose decreased to 1mg/kg daily. Now on iv heparin for possible procedure. - Antiphospholipid ab pending. - Once patient is stable, consider switching back to Coumadin. She is followed by PCP. She could not afford NOAC. ? 4. Severe Anemia: likey due to bleed. Stable now. SIGNATURE: Antione Irizarry MD PATIENT NAME: Dia Mccullough DATE: October 11, 2017 TIME: 8 AM PAGER: [phone] CONSULT PROG Observed: 10/11/2017 Status: COMPLETED Source: [place] 6:35 AM CLINIC OTHER CAMPUS REPOSITORY HNO ID: [id number] Author: Shauna Pulido Service: General Surgery Author Type: Resident Type: Consult Progress Note Filed: 10/11/2017 6:43 AM Note Text: Attestation signed by Khai Lira at 10/11/2017 1:39 PM I personally saw and examined the patient. I reviewed the resident's note. I agree with the resident's assessment and plan unless otherwise noted below. Discussed at length today the utility of again trying to have radiology assess for possible IR drainage as this may help progress her healing along. She did have several reservations but I went over all the details with her and her family member. They do want to proceed with at least repeat imaging and possible drainage today. Emergency General Surgery Progress Note SERVICE DATE: 10/11/2017 SUBJECTIVE: Patient denies abdominal pain, nausea and vomiting. Her main complaint is her LLE. She states that she has a Hematoma and that she cannot walk. She denies fevers, chills, chest pain, and shortness of breath. Tolerating diet DIET NPO OBJECTIVE: Vitals: Temp (24hrs), Av.6 ?C (97.8 ?F), Min:36.1 ?C (97 ?F), Max:36.8 ?C (98.2 ?F) BP 136/75 Pulse 92 Temp 36.8 ?C (98.2 ?F) (Oral) Resp 18 Ht 152.4 cm (5') Wt 70.7 kg (155 lb 13.8 oz) SpO2 99% BMI 30.44 kg/m? O2 Therapy: Room Air IANDO: Date 10/10/17 07 - 10/11/17 0659 10/11/17 07 - 10/12/17 0659 Shift 5173-6149 4605-1566 4472-9895 24 Hour Total 7235-9501 6551-4716 5650-8034 24 Hour Total I N T A K E PO 240 240 PO 240 240 IV 1000 1000 LR 1000 1000 Blood Products 301 301 PRBC Intake (mL) 300 300 Packed Red Blood Cells Number of Units 1 1 Shift Total 301 1240 1541 O U T P U T Urine 1 2 3 Urine Not Saved 1 2 3 # of BMs Number of BMs 2 x 1 x 3 x Shift Total 1 2 3 Weight (kg) 68 68 70.7 70.7 70.7 70.7 70.7 70.7 MEDICATIONS Current Facility-Administered Medications: heparin iv infusion (STANDARD NOMOGRAM) 25,000 units in NaCl 0.45% 250 mL PREMIX 0-3,000 Units/hr INTRAVENOUS CONTINUOUS And heparin RATE CHANGE bolus 1,000-10,000 Units for subtherapeutic aptt results 1,000-10,000 Units INTRAVENOUS PRN heparin nomogram - NO INITIAL BOLUS OTHER ONCE (heparin bolus) HYDROcodone 5 mg - acetaminophen 325 mg tablet (NORCO) 1 tablet ORAL q 4 H PRN polyethylene glycol 3350 17 g packet (MIRALAX, GLYCOLAX) 17 g ORAL DAILY metoprolol tartrate (short acting) 25 mg tab(s) (LOPRESSOR) 25 mg ORAL q 12 H acetaminophen 650 mg tab(s) (TYLENOL) 650 mg ORAL q 6 H PRN meropenem 1 g in NaCl 0.9% 100 mL MB+ (MERREM) 1 g INTRAVENOUS q 12 H ondansetron orally disintegrating 4 mg tab(s) (ZOFRAN ODT) 4 mg ORAL q 6 H PRN predniSONE 5 mg tab(s) (DELTASONE) 5 mg ORAL BID PC predniSONE 2.5 mg tab(s) (DELTASONE) 2.5 mg ORAL DAILY wDINNER pantoprazole DR 40 mg tab(s) (PROTONIX) 40 mg ORAL DAILY (6 AM) saliva substitute combo no.9 15 mL (BIOTENE mouthwash) 15 mL MUCOUS MEMBRANE (TOPICAL MOUTH AND THROAT) 5X/DAY benzocaine-menthol 1 Lozenge (CEPACOL) 1 Lozenge MUCOUS MEMBRANE (TOPICAL MOUTH AND THROAT) q 2 H PRN 0.9% NaCl 3-5 mL 3-5 mL INTRAVENOUS q 12 H lactated ringers infusion 100 mL/hr INTRAVENOUS CONTINUOUS guaiFENesin 200 mg oral liquid (ROBITUSSIN) 200 mg ORAL QID Labs: Recent Labs 10/11/17 0431 10/10/17 0830 10/10/17 0357 10/09/17 0630 NA 142 -- 142 138 K 4.1 -- 3.3* 3.5 CHLOR 109* -- 108* 105 CO2 29 -- 28 24 BUN 20* -- 34* 32* CREAT 0.94 -- 1.63* 1.55* GLUC 90 -- 97 116* ANION 8 -- 9 13 CA 8.0* -- 7.6* 8.0* MG -- -- -- 1.4* P -- -- -- 3.6 ALB -- -- 1.7* -- AST -- -- 5* -- ALT -- -- 12 -- ALKPHOS -- -- 40* -- TBILI -- -- 0.2 -- WBC 7.98 8.18 8.61 -- 15.73* HB 7.4* 7.4* 6.1* -- 7.8* HCT 23.4* 23.4* 19.6* -- 25.4* PLT 207 211 195 -- 264 INR 0.93 -- -- -- Exam: GENERAL: No distress, Alert NEURO: AANDOx3, CN II-XII grossly intact HEENT: normocephalic, atraumatic LUNGS: Unlabored breathing CARDIAC: Regular rate and rhythm as above ABDOMEN: Soft, Non-tendet, non-distended. No rebound or guarding. EXTREMITIES: LLE with chronic venous skin changes wrapped. Motion and sensation intact SKIN: Skin color, texture, turgor normal, No rashes or lesions ASSESSMENT AND PLAN: Active Hospital Problems Diagnosis Date Noted - Intra-abdominal abscess (HCC) 10/08/2017 - Traumatic hematoma of left lower leg 10/08/2017 - Leg hematoma, left, initial encounter 10/08/2017 - Curry disease Chronic - Venous insufficiency (chronic) (peripheral) - CKD (chronic kidney disease) stage 3, GFR 30-59 ml/min 11/28/2014 - Pulmonary emboli (HCC) 01/30/2014 Overview Note: clinically resolved - DVT (deep venous thrombosis) ([facility]) 01/08/2014 Overview Note: recurrent 77 year old female with diverticulitis and presacral fluid/gas collection. - Patient is currently NPO for possible drain placement. - Patient does not think that she wishes to proceed with placement of a drain into the pre-sacral collection. She would like to move forward with a repeat CT scan though so she can make an informed decision. - Leukocytosis improved - On meropenem per ID. Received only half of last dose. Patient requested to stop based on GI upset. - She is improving with conservative management. - she will need to have an outpatient colonoscopy in 6-8 weeks after discharge. Shauna Pulido MD General Surgery PGY-4 October 11, 2017 6:41 AM [facility] #: Pager: [phone] HEMOGRAM Collected: 10/11/2017 Status: F Source: [facility] 4:31 AM [facility] REPOSITORY TYPE CODE TESTS RESULT OUT OF REFERENCE UNITS RANGE LAB WBC(LOINC) 3.98-10.04 thou/cmm WBC 8.18 LAB RBC(LOINC) 3.93-5.22 mil/cmm Low RBC 2.35 LAB HGB(LOINC) 11.2-15.7 g/dL Low Hgb 7.4 LAB HCT(LOINC) 34.1-44.9 % Low Hct 23.4 LAB MCV(LOINC) 79.4-94.8 fl MCV High 99.6 LAB MCH(LOINC) 25.6-32.2 pg MCH 31.5 LAB MCHC(LOINC 31.6-34.8 % ) MCHC 31.6 LAB RDW(LOINC) 11.7-14.4 % RDW High 22.9 LAB RDWSD(LOIN 36.4-46.3 fl C) RDW High SD 80.6 LAB PLT(LOINC) 182-369 thou/cmm Platelet 211 LAB MPV(LOINC) 9.4-12.3 fl MPV 9.7 LAB NRBCR(LOIN 0.0-0.2 % C) High Nucleated RBC % 0.6 LAB NRBCA(LOIN 0.00-0.01 thou/cmm C) High Nucleated RBC 0.05 Absolute Performed By: #### CBC1 #### [facility] [address] [place] [address] ACTIVATED PTT Collected: 10/11/2017 Status: F Source: [address] SYSTEM REPOSITORY TYPE CODE TESTS RESULT OUT OF REFERENCE UNITS RANGE LAB APTT(LOINC 22.0-34.0 sec ) Activated PTT 23.4 Performed By: #### APTT #### [place] [address] PROTIME Collected: 10/11/2017 Status: F Source: [address] SYSTEM REPOSITORY TYPE CODE TESTS RESULT OUT OF REFERENCE UNITS RANGE LAB PTI(LOINC) 9.3-11.9 sec Prothrombin Time 10.0 LAB INR(LOINC) INR 0.93 Result Comment: Standard Therapy 2.0-3.0 High Dose 2.5-3.5 Performed By: #### PT #### [place] [address] HEMOGRAM/DIFF Collected: 10/11/2017 Status: F Source: [address] SYSTEM REPOSITORY TYPE CODE TESTS RESULT OUT OF REFERENCE UNITS RANGE LAB WBC(LOINC) 3.98-10.04 thou/cmm WBC 7.98 LAB RBC(LOINC) 3.93-5.22 mil/cmm Low RBC 2.34 LAB HGB(LOINC) 11.2-15.7 g/dL Low Hgb 7.4 LAB HCT(LOINC) 34.1-44.9 % Low Hct 23.4 LAB MCV(LOINC) 79.4-94.8 fl MCV High 100.0 LAB MCH(LOINC) 25.6-32.2 pg MCH 31.6 LAB MCHC(LOINC 31.6-34.8 % ) MCHC 31.6 LAB RDW(LOINC) 11.7-14.4 % RDW High 22.9 LAB RDWSD(LOIN 36.4-46.3 fl C) RDW SD High 80.7 LAB PLT(LOINC) 182-369 thou/cmm Platelet 207 LAB MPV(LOINC) 9.4-12.3 fl MPV 9.9 LAB NRBCR(LOIN 0.0-0.2 % C) High Nucleated RBC % 0.4 LAB NRBCA(LOIN 0.00-0.01 thou/cmm C) High Nucleated RBC 0.03 Absolute LAB SEG(LOINC) % Seg Neutrophil 77.7 LAB IGRE(LOINC % ) Immature Grans 2.10 LAB LYMPH(LOIN % C) Lymphocyte 14.2 LAB MNO(LOINC) % Monocyte 5.8 LAB EOSIN(LOIN % C) Eosinophil 0.1 LAB BASO(LOINC % ) Basophil 0.1 LAB SEGN(LOINC 1.56-6.13 thou/cmm ) Abs. High Neut (ANC) 6.20 LAB IGAB(LOINC 0.00-0.05 thou/cmm ) Abs High Immature Grans 0.17 LAB LYMN(LOINC 1.18-3.74 thou/cmm ) Low Abs. Lymph 1.13 LAB MONON(LOIN 0.27-0.70 thou/cmm C) Abs. Greene 0.46 LAB EOSN(LOINC 0.00-0.31 thou/cmm ) Abs. Eosin 0.01 LAB BASON(LOIN 0.01-0.08 thou/cmm C) Abs. Baso 0.01 Performed By: #### CBCD1 #### [facility] [address] [place] [id number] BASIC PANEL Collected: 10/11/2017 Status: F Source: [facility] 4:31 AM HEALTH SYSTEM REPOSITORY TYPE CODE TESTS RESULT OUT OF REFERENCE UNITS RANGE LAB NA(LOINC) 136-145 mEq/L Sodium Blood 142 LAB K(LOINC) 3.5-5.1 mEq/L Potassium Blood 4.1 LAB CL(LOINC) 98-107 mEq/L Chloride High Blood 109 LAB CO2(LOINC) 21-32 mEq/L CO2 Blood 29 LAB GLU(LOINC) 70-99 mg/dL Glucose Blood 90 LAB BUN(LOINC) 7-18 mg/dL BUN High Blood 20 LAB CREA(LOINC 0.51-0.95 mg/dL ) Creatinine Blood 0.94 LAB CA(LOINC) 8.5-10.1 mg/dL Low Calcium Blood 8.0 LAB ANGAP(LOIN 8-16 C) Anion Gap 8 Performed By: #### P8 #### [facility] [address] [place] [address] MDRD GFR Collected: 10/11/2017 Status: F Source: [facility] 4:31 AM HEALTH SYSTEM REPOSITORY TYPE CODE TESTS RESULT OUT OF RANGE REFERENCE UNITS LAB GFRFN(LOINC >60mL/min/1.73m ) 2 eGFR 57.56 Result Comment: If the patient is , multiply the result by 1.210. Performed By: #### GFR #### [place] [address] PROGRESS Observed: 10/11/2017 Status: COMPLETED Source: [place] 3:55 AM [facility] REPOSITORY HNO ID: [id number] Author: Kaycee Figueroa Service: Hospital Medicine Author Type: Nurse Practitioner Type: Progress Notes Filed: 10/11/2017 4:00 AM Note Text: MONICA NIGHT TEAM Called by general surgery resident regarding possible per drain in AM after ct complete. She discussed discontinuing lovenox and adding heparin gtt instead overnight. After procedure patient can be placed back on therapeutic lovenox. Discussed change with RN. Kaycee Figueroa [facility] 1871 NURSING PROG Observed: 10/10/2017 Status: COMPLETED Source: [place] 8:35 PM [facility] REPOSITORY HNO ID: [id number] Author: Teetee Allen) JANET Mendez Service: (none) Author Type: Registered Nurse Type: Nursing Progress Note Filed: 10/10/2017 10:04 PM Note Text: Sound paged to notify that the patient is requesting something for anxiety. Ativan 0.25 mg ordered once by AMMY Figueroa. AMMY Figueroa of [facility] notified that the patient received half of the dose of meropenem and then refused the other half related to GI upset. PROGRESS Observed: 10/10/2017 Status: COMPLETED Source: [facility] 2:48 PM CLINIC OTHER CAMPUS REPOSITORY O ID: [id number] Author: Zhane Mcgovern III Service: Infectious Disease Author Type: Physician Type: Progress Notes Filed: 10/10/2017 2:52 PM Note Text: CONSULT PROGRESS NOTE SERVICE DATE: 10/10/2017 SERVICE TIME: 1:30PM CONSULTING SERVICE: INFECTIOUS DISEASE Subjective INTERVAL HPI: F/u presacral abscess Surgery notes reviewed. Per son and RN- plan updated so that now patient will be getting CT in am and reassessing if drain possible. She feels ok. Has some pressure in the abdomen but she thinks that this is because she has to move her bowels No fevers or chills. Current hospital medications: HYDROcodone 5 mg - acetaminophen 325 mg tablet (NORCO) 1 tablet ORAL q 4 H PRN polyethylene glycol 3350 17 g packet (MIRALAX, GLYCOLAX) 17 g ORAL DAILY metoprolol tartrate (short acting) 25 mg tab(s) (LOPRESSOR) 25 mg ORAL q 12 H acetaminophen 650 mg tab(s) (TYLENOL) 650 mg ORAL q 6 H PRN enoxaparin 70 mg injection (LOVENOX) 1 mg/kg/dose SUBCUTANEOUS DAILY meropenem 1 g in NaCl 0.9% 100 mL MB+ (MERREM) 1 g INTRAVENOUS q 12 H ondansetron orally disintegrating 4 mg tab(s) (ZOFRAN ODT) 4 mg ORAL q 6 H PRN predniSONE 5 mg tab(s) (DELTASONE) 5 mg ORAL BID PC predniSONE 2.5 mg tab(s) (DELTASONE) 2.5 mg ORAL DAILY wDINNER pantoprazole DR 40 mg tab(s) (PROTONIX) 40 mg ORAL DAILY (6 AM) saliva substitute combo no.9 15 mL (BIOTENE mouthwash) 15 mL MUCOUS MEMBRANE (TOPICAL MOUTH AND THROAT) 5X/DAY benzocaine-menthol 1 Lozenge (CEPACOL) 1 Lozenge MUCOUS MEMBRANE (TOPICAL MOUTH AND THROAT) q 2 H PRN 0.9% NaCl 3-5 mL 3-5 mL INTRAVENOUS q 12 H lactated ringers infusion 100 mL/hr INTRAVENOUS CONTINUOUS guaiFENesin 200 mg oral liquid (ROBITUSSIN) 200 mg ORAL QID Objective PHYSICAL EXAM: Physical Exam Performed: General: NAD Abdomen: soft, nontender. Bowel sounds active Extremities: Left leg hematoma bandaged. BP 101/57 Pulse 101 Temp (Src) 98.2 (Temporal Artery) Resp 16 Ht 5' 0 (1.52m) Wt 150 lb (68.0kg) SpO2 100% BMI 29.30 kg/(m2). DATA: Diagnostic tests reviewed for today's visit: WBC Date Value Ref Range Status 10/10/2017 8.61 3.98 - 10.04 thou/cmm Final Impression/Recommendations 1) Intra-abdominal abscess- leukocytosis resolved with meropenem. Continue meropenem. Will follow-up tomorrow morning's CT scan- if drain placed then continue meropenem and narrow based on culture. If no drain placed then would change to oral cefdinir plus clindamycin with plan to treat for 2-3 weeks. SIGNATURE: Zhane Mcgovern III, MD PATIENT NAME: Dia Mccullough DATE: October 10, 2017 TIME: 2:48 PM PAGER: [phone] PROGRESS Observed: 10/10/2017 Status: COMPLETED Source: [facility] 11:27 AM CLINIC OTHER CAMPUS REPOSITORY O ID: [id number] Author: Jose Maria Mittal Service: Hospital Medicine Author Type: Physician Type: Progress Notes Filed: 10/10/2017 11:50 AM Note Text: DEPARTMENT OF HOSPITAL MEDICINE PROGRESS NOTE SERVICE DATE: 10/10/2017 SERVICE TIME: 11:27 AM Hospital Medicine/Primary Attending: Jose Maria Mittal MD NIGHT AND WEEKEND COVERAGE: After 7pm please page [phone] CHIEF COMPLAINT: left leg hematoma. SUBJECTIVE: No pain in abdomen. No nausea or vomiting. Eating well. No pain in left leg OBJECTIVE: PHYSICAL EXAM: BP 98/56 Pulse 87 Temp (Src) 97.5 (Temporal Artery) Resp 18 Ht 5' 0 (1.52m) Wt 150 lb (68.0kg) SpO2 100% BMI 29.30 kg/(m2). GENERAL: Alert, no distress, cooperative, SKIN: Skin color, texture, turgor normal. No rashes or lesions. OROPHARYNX: Lips, mucosa, and tongue normal. Teeth and gums normal. Oropharynx normal. LUNGS: Lungs clear to auscultation, Air entry good, Unlabored breathing. CARDIAC: Normal S1 and S2; no rubs, murmurs, or gallops ABDOMEN: Abdomen soft, non-tender, non-distended, BS normal EXTREMITIES: left leg- dressing opened. Large hematoma in left lower leg- no active bleed. No evidence of infection. Foot warm with intact sensation. NEURO: Grossly normal cognition, motor function, and cranial nerves III-XII MEDICATIONS: Current hospital medications: HYDROcodone 5 mg - acetaminophen 325 mg tablet (NORCO) 1 tablet ORAL q 4 H PRN polyethylene glycol 3350 17 g packet (MIRALAX, GLYCOLAX) 17 g ORAL DAILY enoxaparin 70 mg injection (LOVENOX) 1 mg/kg/dose SUBCUTANEOUS DAILY metoprolol tartrate (short acting) 75 mg tab(s) (LOPRESSOR) 75 mg ORAL q 12 H meropenem 1 g in NaCl 0.9% 100 mL MB+ (MERREM) 1 g INTRAVENOUS q 12 H hydroCHLOROthiazide 25 mg tab(s) (HYDRODIURIL, ESIDRIX) 25 mg ORAL DAILY ondansetron orally disintegrating 4 mg tab(s) (ZOFRAN ODT) 4 mg ORAL q 6 H PRN predniSONE 5 mg tab(s) (DELTASONE) 5 mg ORAL BID PC predniSONE 2.5 mg tab(s) (DELTASONE) 2.5 mg ORAL DAILY wDINNER pantoprazole DR 40 mg tab(s) (PROTONIX) 40 mg ORAL DAILY (6 AM) saliva substitute combo no.9 15 mL (BIOTENE mouthwash) 15 mL MUCOUS MEMBRANE (TOPICAL MOUTH AND THROAT) 5X/DAY benzocaine-menthol 1 Lozenge (CEPACOL) 1 Lozenge MUCOUS MEMBRANE (TOPICAL MOUTH AND THROAT) q 2 H PRN 0.9% NaCl 3-5 mL 3-5 mL INTRAVENOUS q 12 H lactated ringers infusion 100 mL/hr INTRAVENOUS CONTINUOUS guaiFENesin 200 mg oral liquid (ROBITUSSIN) 200 mg ORAL QID DATA: Diagnostic tests reviewed for today's visit: CBC, Coags, BMP, Mg, Phos Recent Labs 10/10/17 0830 10/10/17 0357 10/09/17 0630 WBC 8.61 -- 15.73* HB 6.1* -- 7.8* HCT 19.6* -- 25.4* PLT 195 -- 264 NA -- 142 138 K -- 3.3* 3.5 CHLOR -- 108* 105 CO2 -- 28 24 BUN -- 34* 32* CREAT -- 1.63* 1.55* GLUC -- 97 116* CA -- 7.6* 8.0* MG -- -- 1.4* P -- -- 3.6 Liver Function, Amylase, AND Lipase Recent Labs 10/10/17 0357 TPROT 4.3* ALB 1.7* ALT 12 AST 5* ALKPHOS 40* TBILI 0.2 Cardiac Enzymes Heme: Recent Labs 10/09/17 1530 ABSRETIC 0.081 RITO 176.00 FE 14* TIBC 182* Albumin/Creat Ratio (mg/g) Date Value 11/03/2013 3 Assessment/Plan Patient Active Hospital Problem List: Intra-abdominal abscess (HCC) (10/08/2017) DVT (deep venous thrombosis) (HCC) (01/08/2014) Pulmonary emboli (HCC) (01/30/2014) CKD (chronic kidney disease) stage 3, GFR 30-59 ml/min (11/28/2014) Venous insufficiency (chronic) (peripheral) () Curry disease () Traumatic hematoma of left lower leg (10/08/2017) Leg hematoma, left, initial encounter (10/08/2017) ASSESSMENT: 1. Sigmoid diverticulitis with with 5cm pelvic abscess: minimal symptoms. On Abx. Per surgeon who spoke with IR, difficult to drain percutaneously. Plan is to continue abx for now. If worse, drain surgically -transrectal or laparoscopically placed drain (if patient agrees). ? 2. Bowel perforation 08/24/17: she refused surgery at that time and was treated with abx. Survived. ? 3. 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 Used to be on coumadin which was stopped when she developed hematemesis. Since her last PE/PE, was placed on lovenox 1mg/kg BID- dose decreased to 1mg/kg daily. ? 4. Left leg bleeding/ hematoma: probably due to higher dose of lovenox for CKD 3-4 Currently wrapped with dressing and SPIKE. ? 5. Episode of hematemesis 5 weeks ago while on coumadin- managed with vitk. No scope done. ? 6. SVT this am: better with metoprolol. ? 7. Severe Anemia: due to bleed.? CKD and recent conditions contributing. No evidence of iron def. ? 8. Addision's disease: ? 9. CKD3 PLAN: Continue abx. Monitor Transfuse 1 unit of PRBC. Monitor hb Elevate left leg. Discussed with ortho regarding hematoma- mild compression dressing, leg elevation and NO evacuation. VTE Prophylaxis: Patient is already anti-coagulated. Disposition: Home Plan of care discussed with: Patient SIGNATURE: Jose Maria Mittal MD PATIENT NAME: Dia Mccullough DATE: October 10, 2017 TIME: 11:27 AM PAGER/CONTACT #: [phone] TYPE AND SCREEN Collected: 10/10/2017 Status: F Source: [facility] 10:20 AM HEALTH SYSTEM REPOSITORY TYPE CODE TESTS RESULT OUT OF REFERENCE UNITS RANGE LAB ABO(LOINC) A ABO Group LAB LEAD NEURODIAGNOSTIC TECHNOLOGIST(LOINC ) RH Type Positive LAB ABSCR(LOIN C) Antibody NEGATIVE Screen LAB BBCMT(LOIN C) Comment See Below Result Comment: Screen &/or Xmatch expires in 3 days at 12 midnight. Redraw patient at that time. Performed By: #### T&S #### [place] [address] RBC PRODUCTS Collected: 10/10/2017 Status: F Source: [facility] 10:20 AM HEALTH SYSTEM REPOSITORY TYPE CODE TESTS RESULT OUT OF REFERENCE UNITS RANGE LAB UNIT1(LOINC ) Xmatch Unit 1 see below Result Comment: Compatible Performed By: #### RBCPS #### [place] [address] HEMOGRAM/DIFF Collected: 10/10/2017 Status: F Source: [facility] 8:30 AM HEALTH SYSTEM REPOSITORY TYPE CODE TESTS RESULT OUT OF REFERENCE UNITS RANGE LAB WBC(LOINC) 3.98-10.04 thou/cmm WBC 8.61 LAB RBC(LOINC) 3.93-5.22 mil/cmm Low RBC 1.88 LAB HGB(LOINC) 11.2-15.7 g/dL Low Hgb alert 6.1 LAB HCT(LOINC) 34.1-44.9 % Low Hct alert 19.6 LAB MCV(LOINC) 79.4-94.8 fl MCV High 104.3 LAB MCH(LOINC) 25.6-32.2 pg MCH High 32.4 LAB MCHC(LOINC 31.6-34.8 % ) Low MCHC 31.1 LAB RDW(LOINC) 11.7-14.4 % RDW High 20.2 LAB RDWSD(LOIN 36.4-46.3 fl C) RDW SD High 76.3 LAB PLT(LOINC) 182-369 thou/cmm Platelet 195 LAB MPV(LOINC) 9.4-12.3 fl MPV 9.4 LAB NRBCR(LOIN 0.0-0.2 % C) High Nucleated RBC % 0.3 LAB SEG(LOINC) % Seg Neutrophil 77.0 LAB IGRE(LOINC % ) Immature Grans 1.20 LAB LYMPH(LOIN % C) Lymphocyte 17.8 LAB MNO(LOINC) % Monocyte 3.6 LAB EOSIN(LOIN % C) Eosinophil 0.3 LAB BASO(LOINC % ) Basophil 0.1 LAB NRBCA(LOIN 0.00-0.01 thou/cmm C) High Nucleated RBC 0.03 Absolute LAB SEGN(LOINC 1.56-6.13 thou/cmm ) Abs. High Neut (ANC) 6.63 LAB IGAB(LOINC 0.00-0.05 thou/cmm ) Abs High Immature Grans 0.10 LAB LYMN(LOINC 1.18-3.74 thou/cmm ) Abs. Lymph 1.53 LAB MONON(LOIN 0.27-0.70 thou/cmm C) Abs. Greene 0.31 LAB EOSN(LOINC 0.00-0.31 thou/cmm ) Abs. Eosin 0.03 LAB BASON(LOIN 0.01-0.08 thou/cmm C) Abs. Baso 0.01 Performed By: #### CBCD1 #### [place] [id number] CONSULT PROG Observed: 10/10/2017 Status: COMPLETED Source: [facility] 7:05 AM CLINIC OTHER CAMPUS REPOSITORY HNO ID: [id number] Author: Philip Ledbetter Service: General Surgery Author Type: Resident Type: Consult Progress Note Filed: 10/10/2017 7:10 AM Note Text: Attestation signed by Khai Lira at 10/10/2017 12:36 PM I personally saw and examined the patient. I reviewed the resident's note. I agree with the resident's assessment and plan unless otherwise noted below. We will review imaging with interventional radiology to see if this is amenable to percutaneous or transrectal drainage to progress her forward. Currently looks nontoxic and very comfortable. She does not want to pursue surgery. Emergency General Surgery Progress Note SERVICE DATE: 10/10/2017 SUBJECTIVE: No acute events. Abdominal pain has nearly improved completely. She is having bowel function. She was started on regular diet last night. Tolerating diet DIET REGULAR OBJECTIVE: Vitals: Temp (24hrs), Av.2 ?C (97.2 ?F), Min:36.1 ?C (97 ?F), Max:36.3 ?C (97.3 ?F) BP 93/54 Pulse 89 Temp 36.2 ?C (97.2 ?F) (Temporal Artery) Resp 18 Ht 152.4 cm (5') Wt 68 kg (150 lb) SpO2 99% BMI 29.29 kg/m? O2 Therapy: Room Air IANDO: Date 10/09/17 07 - 10/10/17 0659 10/10/17 07 - 10/11/17 0659 Shift 4442-8355 7349-3703 9060-4498 24 Hour Total 0077-1240 5547-8928 1829-0199 24 Hour Total I N T A K E PO 240 240 480 PO 240 240 480 IV 1000 1000 LR 1000 1000 Shift Total 3666 428 9250 O U T P U T Urine 4 2 6 Urine Not Saved 4 2 6 Shift Total 4 2 6 Weight (kg) 68 68 68 68 68 68 68 68 MEDICATIONS Current Facility-Administered Medications: HYDROcodone 5 mg - acetaminophen 325 mg tablet (NORCO) 1 tablet ORAL q 4 H PRN enoxaparin 70 mg injection (LOVENOX) 1 mg/kg/dose SUBCUTANEOUS DAILY metoprolol tartrate (short acting) 75 mg tab(s) (LOPRESSOR) 75 mg ORAL q 12 H meropenem 1 g in NaCl 0.9% 100 mL MB+ (MERREM) 1 g INTRAVENOUS q 12 H hydroCHLOROthiazide 25 mg tab(s) (HYDRODIURIL, ESIDRIX) 25 mg ORAL DAILY ondansetron orally disintegrating 4 mg tab(s) (ZOFRAN ODT) 4 mg ORAL q 6 H PRN predniSONE 5 mg tab(s) (DELTASONE) 5 mg ORAL BID PC predniSONE 2.5 mg tab(s) (DELTASONE) 2.5 mg ORAL DAILY wDINNER pantoprazole DR 40 mg tab(s) (PROTONIX) 40 mg ORAL DAILY (6 AM) saliva substitute combo no.9 15 mL (BIOTENE mouthwash) 15 mL MUCOUS MEMBRANE (TOPICAL MOUTH AND THROAT) 5X/DAY benzocaine-menthol 1 Lozenge (CEPACOL) 1 Lozenge MUCOUS MEMBRANE (TOPICAL MOUTH AND THROAT) q 2 H PRN 0.9% NaCl 3-5 mL 3-5 mL INTRAVENOUS q 12 H lactated ringers infusion 100 mL/hr INTRAVENOUS CONTINUOUS guaiFENesin 200 mg oral liquid (ROBITUSSIN) 200 mg ORAL QID Labs: Recent Labs 10/10/17 0357 10/09/17 0630 NA 142 138 K 3.3* 3.5 CHLOR 108* 105 CO2 28 24 BUN 34* 32* CREAT 1.63* 1.55* GLUC 97 116* ANION 9 13 CA 7.6* 8.0* MG -- 1.4* P -- 3.6 ALB 1.7* -- AST 5* -- ALT 12 -- ALKPHOS 40* -- TBILI 0.2 -- WBC -- 15.73* HB -- 7.8* HCT -- 25.4* PLT -- 264 Exam: GENERAL: No distress, Alert NEURO: AANDOx3, CN II-XII grossly intact HEENT: normocephalic, atraumatic LUNGS: Unlabored breathing CARDIAC: Regular rate and rhythm as above ABDOMEN: Soft, minimally tender LLQ, non-distended. No rebound or guarding. EXTREMITIES: MONGE, No deformities, No edema SKIN: Skin color, texture, turgor normal, No rashes or lesions ASSESSMENT AND PLAN: Active Hospital Problems Diagnosis Date Noted - Intra-abdominal abscess (HCC) 10/08/2017 - Traumatic hematoma of left lower leg 10/08/2017 - Leg hematoma, left, initial encounter 10/08/2017 - Curry disease Chronic - Venous insufficiency (chronic) (peripheral) - CKD (chronic kidney disease) stage 3, GFR 30-59 ml/min 11/28/2014 - Pulmonary emboli ([facility]) 01/30/2014 Overview Note: clinically resolved - DVT (deep venous thrombosis) ([facility]) 01/08/2014 Overview Note: recurrent 77 year old female with diverticulitis and presacral fluid/gas collection. - diet as tolerated. Recommend holding diet if having pain. - WBC pending this AM. 15 yesterday. Has been downtrending. - On meropenem per primary. - fluid collection would be difficult to drain per radiology. - if she worsens, she may need to have a drain placed in fluid collection. - She is improving with conservative management. There is no indication for surgical intervention at this time. - she will need to have an outpatient colonoscopy in 6-8 weeks after discharge. SIGNATURE: Philip Koenig MD PATIENT NAME: Dia Mccullough DATE: October 10, 2017 TIME: 7:05 AM Pager: [phone] COMPREHENSIVE PANEL Collected: 10/10/2017 Status: F Source: [facility] 3:57 AM HEALTH SYSTEM REPOSITORY TYPE CODE TESTS RESULT OUT OF REFERENCE UNITS RANGE LAB NA(LOINC) 136-145 mEq/L Sodium Blood 142 LAB K(LOINC) 3.5-5.1 mEq/L Low Potassium Blood 3.3 LAB CL(LOINC) 98-107 mEq/L Chloride High Blood 108 LAB CO2(LOINC) 21-32 mEq/L CO2 Blood 28 LAB GLU(LOINC) 70-99 mg/dL Glucose Blood 97 LAB BUN(LOINC) 7-18 mg/dL BUN Blood High 34 LAB CREA(LOINC 0.51-0.95 mg/dL ) Creatinine High Blood 1.63 LAB CA(LOINC) 8.5-10.1 mg/dL Low Calcium Blood 7.6 LAB ALB(LOINC) 3.4-5.0 g/dL Low Albumin Blood 1.7 LAB TP(LOINC) 6.4-8.2 g/dL Low Total Protein 4.3 LAB AST(LOINC) 9-37 U/L Low AST-SGOT Blood 5 LAB ALT(LOINC) 12-78 U/L ALT-SGPT Blood 12 LAB ALKP(LOINC 46-116 U/L ) Low Alk Phosphatase 40 LAB BILIT(LOIN 0.2-1.0 mg/dL C) Total Bilirubin 0.2 LAB ANGAP(LOIN 8-16 C) Anion Gap 9 Performed By: #### P14 #### [place] [address] MDRD GFR Collected: 10/10/2017 Status: F Source: [facility] 3:57 AM HEALTH SYSTEM REPOSITORY TYPE CODE TESTS RESULT OUT OF RANGE REFERENCE UNITS LAB GFRFN(LOINC >60mL/min/1.73m ) 2 eGFR 30.50 Result Comment: If the patient is , multiply the result by 1.210. Performed By: #### GFR #### [place] [address] CONSULT Observed: 10/09/2017 Status: COMPLETED Source: [facility] 4:02 PM CLINIC OTHER CAMPUS REPOSITORY HNO ID: [id number] Author: Zhane Mcgovern III Service: Infectious Disease Author Type: Physician Type: Consults Filed: 10/09/2017 8:19 PM Note Text: CONSULT: INFECTIOUS DISEASE SERVICE SERVICE DATE: 10/09/2017 SERVICE TIME: 4:02PM REASON FOR CONSULT: Abdominal abscess REQUESTING PHYSICIAN: Dr. Damon PRIMARY CARE PHYSICIAN: Mallorie Wheeler MD Subjective . 77 year old female who was in [facility] in August for perforated bowel Had refused surgery and actually went home on hospice and on oral antibiotics. Has been receiving blood thinner. Recently had hematoma of the left leg. Per [facility], she was brought back to [place] ED for abdominal pain. There, it was found that she had a 5cm intra-abdominal abscess. She was transferred here for evaluaton for percutaneous drain which has been ordered. She actually denies any abdominal pain to me. Denies any fevers or chills. Currently on meropenem ALLERGIES Allergen Reactions - Ansaid [Flurbiprofe* GI Upset Ulcer - Arthrotec 50 [Diclo* GI Upset Cytotec upset stomach more than just the voltaren by itself - Augmentin [Amoxicil* GI Upset tolerates cephalexin - Doxycycline GI Upset - Erythromycin GI Upset - Grass Pollen - Lodine [Etodolac] - Nsaids (Non-Steroid* Unknown - Poison Lisa - Vioxx [Rofecoxib] GI Upset She also reports intolerance to flagyl. 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 - Inflammatory polyarthropathy - Normocytic anemia - PE (pulmonary thromboembolism) ([facility]) 01/05/14 Bilat, extensive - Pulmonary embolism without acute cor pulmonale - Pure hypercholesterolemia - Sicca syndrome - Unspecified essential hypertension - Unspecified gastritis and gastroduodenitis without mention of hemorrhage - Urinary tract infection, site not specified - Venous insufficiency (chronic) (peripheral) - Vitamin D deficiency PAST SURGICAL HISTORY Procedure Laterality Date - CATARACT EXTRACTION HX Right - PARTIAL HIP REPLACEMENT Right 04/2013 - PAST SURGICAL HISTORY OF hernia repair - PAST SURGICAL HISTORY OF 11/2012 L3-L4 laminectomy and fusion - PAST SURGICAL HISTORY OF 11/2012 Back fusion surgery - TOTAL HIP REPLACEMENT 05/10/2013 right hip replacement - VENOUS DUPLEX BOTH LOWER EXTREMITIES 05/12/2016 FAMILY HISTORY Problem Relation Age of Onset - Diabetes Mother - Heart Mother - Heart Father - Denies family history of malignancy or thromboembolism. [OTHER] Other Social History Substance Use Topics - Smoking status: Never Smoker - Smokeless tobacco: Never Used - Alcohol use No Prescriptions Prior to Admission: predniSONE (DELTASONE) 2.5 mg tablet Take 2.5 mg by mouth daily before dinner. Disp: Rfl: enoxaparin (LOVENOX) 80 mg/0.8 mL syrg Inject 80 mg subcutaneously q 12 HR. Disp: Rfl: Omeprazole 40 mg capsule Take 40 mg by mouth once daily. Disp: Rfl: predniSONE (DELTASONE) 5 mg tablet Take 5 mg by mouth twice daily. Disp: Rfl: ondansetron orally disintegrating (ZOFRAN ODT) 4 mg disintegrating tablet Take 1 tablet by mouth every 6 hours as needed for Nausea/Vomiting. Disp: 24 tablet Rfl: 0 Past Week at Unknown time hydrochlorothiazide (HYDRODIURIL, ESIDRIX) 25 mg tablet Take 1 tablet by mouth once daily. 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) Disp: Rfl: 10/07/2017 at Unknown time Current hospital medications: enoxaparin 70 mg injection (LOVENOX) 1 mg/kg/dose SUBCUTANEOUS DAILY metoprolol tartrate (short acting) 75 mg tab(s) (LOPRESSOR) 75 mg ORAL q 12 H meropenem 1 g in NaCl 0.9% 100 mL MB+ (MERREM) 1 g INTRAVENOUS q 12 H hydroCHLOROthiazide 25 mg tab(s) (HYDRODIURIL, ESIDRIX) 25 mg ORAL DAILY ondansetron orally disintegrating 4 mg tab(s) (ZOFRAN ODT) 4 mg ORAL q 6 H PRN predniSONE 5 mg tab(s) (DELTASONE) 5 mg ORAL BID PC predniSONE 2.5 mg tab(s) (DELTASONE) 2.5 mg ORAL DAILY wDINNER pantoprazole DR 40 mg tab(s) (PROTONIX) 40 mg ORAL DAILY (6 AM) saliva substitute combo no.9 15 mL (BIOTENE mouthwash) 15 mL MUCOUS MEMBRANE (TOPICAL MOUTH AND THROAT) 5X/DAY benzocaine-menthol 1 Lozenge (CEPACOL) 1 Lozenge MUCOUS MEMBRANE (TOPICAL MOUTH AND THROAT) q 2 H PRN 0.9% NaCl 3-5 mL 3-5 mL INTRAVENOUS q 12 H lactated ringers infusion 100 mL/hr INTRAVENOUS CONTINUOUS morphine 1-2 mg injection 1-2 mg INTRAVENOUS q 4 H PRN guaiFENesin 200 mg oral liquid (ROBITUSSIN) 200 mg ORAL QID Allergies As of Date: 10/08/2017 Allergen Noted Reaction ANSAID [FLURBIPROFEN] 12/22/2010 GI Upset ARTHROTEC 50 [DICLOFENAC-MISOPROS*06/24/2011 GI Upset AUGMENTIN [AMOXICILLIN-POT CLAVUL*08/31/2008 GI Upset DOXYCYCLINE 03/17/2005 GI Upset ERYTHROMYCIN 03/17/2005 GI Upset GRASS POLLEN 02/17/2006 LODINE [ETODOLAC] 03/17/2005 NSAIDS (NON-STEROIDAL ANTI-INFLAM*03/11/2017 Unknown POISON LISA 03/17/2005 VIOXX [ROFECOXIB] 03/17/2005 GI Upset Fully Assessed 10/08/2017 COMPLETE REVIEW OF SYSTEMS: GENERAL: No weight loss, malaise or fevers HEENT: Negative for frequent or significant headaches, No changes in hearing or vision, no nose bleeds or other nasal problems RESPIRATORY: Negative for cough, hemoptysis, wheezing, COPD, dyspnea or shortness of breath CARDIOVASCULAR: no chest pain or palpitations GI: No nausea, vomiting, or diarrhea and denies any abdominal pain MUSCULOSKELETAL: Negative for joint pain or swelling, back pain or muscle pain SKIN: Negative for lesions, rash, and itching HEMATOLOGY/LYMPHOLOGY: Bruising/hematoma of left leg. NEURO: No focal weakness or numbness Objective PHYSICAL EXAM: Physical Exam Performed: GENERAL: Alert, no distress, cooperative SKIN: Skin color, texture, turgor normal. No rashes or lesions. OROPHARYNX: Lips, mucosa, and tongue normal. Teeth and gums normal. Oropharynx normal. LUNGS: Lungs clear to auscultation, Good diaphragmatic excursion CARDIAC: Normal S1 and S2; no rubs, murmurs, or gallops ABDOMEN: bowel sounds active. Abdomen soft. Very mild tenderness in right lower quadrant. EXTREMITIES: Left leg hematoma site bandaged. LYMPH: No cervical or axillary adenopathy BP 113/58 Pulse 87 Temp (Src) 97 (Temporal Artery) Resp 18 Ht 5' 0 (1.52m) Wt 150 lb (68.0kg) SpO2 98% BMI 29.30 kg/(m2). DATA: Diagnostic tests reviewed for today's visit: CT report from outside hospital reviewed Hemoglobin (g/dL) Date Value 08/05/2015 12.4 HGB (g/dL) Date Value 10/09/2017 7.8 Hematocrit (%) Date Value 10/09/2017 25.4 WBC (thou/cmm) Date Value 10/09/2017 15.73 Estimated Creatinine Clearance: 25.7 mL/min (A) (based on SCr of 1.55 mg/dL (H)). Impression/Recommendations 1) Intra-abdominal abscess 2) Sepsis with leukocytosis and prior tachycardia PLAN: 1) Continue meropenem 2) F/u surgical recommendations SIGNATURE: Zhane Mcgovern III, MD PATIENT NAME: Dia Mccullough DATE: October 09, 2017 TIME: 4:02 PM PAGER: [phone] RETICULOCYTE COUNT Collected: 10/09/2017 Status: F Source: [facility] 3:30 HEALTH SYSTEM REPOSITORY TYPE CODE TESTS RESULT OUT OF REFERENCE UNITS RANGE LAB RETCT(LOIN 1.0-2.1 % C) Reticulocyte High Ct 3.8 LAB RETAS(LOIN 0.038-0.095 mil/cmm C) Absolute Reticulocyte 0.081 LAB IRF(LOINC) 3.0-15.9 % Immature Retic High Fractions 32.5 LAB RETHE(LOIN 27.9-38.4 pg C) Retic Hemoglobin 35.6 Equivalent Performed By: #### RETC1 #### [address] [address] IRON % SATURATION Collected: 10/09/2017 Status: F Source: [facility] 3:30 HEALTH SYSTEM REPOSITORY TYPE CODE TESTS RESULT OUT OF REFERENCE UNITS RANGE LAB IRON(LOINC 50-170 ug/dL ) Low Iron Serum 14 LAB IBC(LOINC) 250-450 ug/dL Low Iron Binding Cap. 182 LAB IRON%(LOIN 20-55 % C) Low Iron % Saturation 8 Performed By: #### IRONS #### [address] [address] FERRITIN Collected: 10/09/2017 Status: F Source: [facility] 3:30 HEALTH SYSTEM REPOSITORY TYPE CODE TESTS RESULT OUT OF REFERENCE UNITS RANGE LAB FERR(LOINC) 8.00-252.00 ng/mL Ferritin 176.00 Performed By: #### FERR #### [facility] [address] [place] [address] VITAMIN B12 Collected: 10/09/2017 Status: F Source: [facility] 3:30 PM HEALTH SYSTEM REPOSITORY TYPE CODE TESTS RESULT OUT OF REFERENCE UNITS RANGE LAB B12(LOINC) 193-986 pg/mL Vitamin B12 682 Performed By: #### B12 #### [facility] [address] [place] [address] FOLATE Collected: 10/09/2017 Status: F Source: [facility] 3:30 PM [facility] SYSTEM REPOSITORY TYPE CODE TESTS RESULT OUT OF REFERENCE UNITS RANGE LAB FOL(LOINC) 3.10-17.50 ng/mL High Folate 19.80 Performed By: #### FOL #### [facility] [address] [place] [address] ANTIPHOSPHOLIPID EVAL PANEL Collected: 10/09/2017 Status: F Source: [place] 3:30 PM [facility] REPOSITORY TYPE CODE TESTS RESULT OUT OF RANGE REFERENCE UNITS LAB B2GX(LOINC) B 2 -GPI SEE BELOW IgG & IgM Result Comment: Beta2 Glycoprot IgG <9 <20 SGU < 20 SGU Negative 20-80 SGU Low Positive > 80 SGU High Positive These results were obtained with the [employer] QUANTA Lite B2 GPI IgG CRISSY. B2 GPI IgG values obtained with different manufacturers' assay methods may not be used interchangeably. The magnitude of the reported IgG levels cannot be correlated to an endpoint titer. Beta2 Glycoprot IgM <9 <20 SMU < 20 SMU Negative 20-80 SMU Low Positive > 80 SMU High Positive These results were obtained with the [employer] QUANTA Lite B2 GPI IgM CRISSY. B2 GPI IgM values obtained with different manufacturers' assay methods may not be used interchangeably. The magnitude of the reported IgM levels cannot be correlated to an endpoint titer. Performing Laboratory: [facility] [address] [place] [address] LAB CARDX(LOINC) Cardiolipin Antibody SEE BELOW Result Comment: IgG Cardiolipin Ab. <9 0-9 GPL <10 GPL Negative 10-40 GPL Equivocal >40 GPL Positive The following results were obtained with the [employer] QUANTA Lite MAX IgG III CRISSY. Cardiolipin IgG values obtained with the different manufacturers' assay methods may not be used interchangeably. The magnitude of the reported IgG levels cannot be correlated to an endpoint titer. IgM Cardiolipin Ab. <9 0-11 MPL <12 MPL Negative 12-40 MPL Equivocal >40 MPL Positive The following results were obtained with the [employer] QUANTA Lite MAX IgM III CRISSY. Cardiolipin IgM values obtained with different manufacturers' assay methods may not be used interchangeably. The magnitude of the reported IgM levels cannot be correlated to an endpoint titer. IgA Cardiolipin Ab. <9 0-11 APL <12 APL Negative 12-40 APL Equivocal >40 APL Positive The following results were obtained with an [employer] QUANTA Lite MAX IgA III CRISSY. Cardiolipin IgA values obtained with different manufacturers' assay methods may not be used interchangeably. The magnitude of the reported IgA levels cannot be correlated to an endpoint titer. Performing Laboratory: [facility] [employer] [place] [id number] LAB LUPUX(LOINC) Lupus Anticoag (DRVVT) SEE BELOW Result Comment: DRVVT Screen SEE BELOW 32.7-46.7 sec The heparin activity could not be neutralized completely. This can be seen with some types of low molecular weight heparin or fondaparinux therapy. Suggest repeating the lupus anticoagulant evaluation when the patient is no longer receiving heparin. Reviewed by Deirdre Malloy M.D.,Ph.D ([id number]) DRVVT Confirm Ratio SEE BELOW <1.21 The heparin activity could not be neutralized completely. This can be seen with some types of low molecular weight heparin or fondaparinux therapy. Suggest repeating the lupus anticoagulant evaluation when the patient is no longer receiving heparin. DRVVT 1:1 Mix SEE BELOW 32.7-46.7 sec The heparin activity could not be neutralized completely. This can be seen with some types of low molecular weight heparin or fondaparinux therapy. Suggest repeating the lupus anticoagulant evaluation when the patient is no longer receiving heparin. Performing Laboratory: [facility] [place] [address] Performed By: #### PHOX #### [place] [address] ALLIED HEALTH Observed: 10/09/2017 Status: COMPLETED Source: [place] 2:58 PM CLINIC OTHER CAMPUS REPOSITORY HNO ID: [id number] Author: Philip () Chaplain Adiel Service: Spiritual Care Author Type: Paint Line Production Supervisor Type: Allied Health Filed: 10/09/2017 2:59 PM Note Text: SPIRITUALCARE Spiritual Care Visit- Brief Note Name: Dia Mccullough Date: October 09, 2017 Notes: As pile driving setter, made intro visit with pt. Listened empathetically to pt's concerns. Reminded pt of 06/12 SC. Paint Line Production Supervisor Signature: CHAPLAIN Wilbert To contact the Spiritual Care Department: Please call [phone] or Page the On-Call Paint Line Production Supervisor at pager [phone] Thank you for the opportunity to be of service. This is an electronically created document. IF PRINTED, PLEASE DO NOT REMOVE FROM THE CHART OR MODIFY PRINTED COPY. CONSULT PROG Observed: 10/09/2017 Status: COMPLETED Source: [place] 2:39 PM [facility] REPOSITORY HNO ID: [id number] Author: Good Henning Service: Hematology/Oncology Author Type: Physician Type: Consult Progress Note Filed: 10/09/2017 2:43 PM Note Text: Patient seen and Heme issues discussed with patient and son. Consult dictated. 1. Patient doing well on Lovenox. 2. Keep current dose. 70 mg daily. 3. Hemostatic decisions will be based on surgeons decision in regard to surgery. Will facilitate the surgeons decision. Will follow. Shawna Henning MD PROGRESS Observed: 10/09/2017 Status: COMPLETED Source: [place] 1:32 PM [facility] OTHER [place] REPOSITORY HNO ID: [id number] Author: Jose Maria Mittal Service: Hospital Medicine Author Type: Physician Type: Progress Notes Filed: 10/09/2017 2:02 PM Note Text: DEPARTMENT OF HOSPITAL MEDICINE PROGRESS NOTE SERVICE DATE: 10/09/2017 SERVICE TIME: 1:33 PM Hospital Medicine/Primary Attending: Jose Maria Mittal MD NIGHT AND WEEKEND COVERAGE: After 7pm please page [phone] CHIEF COMPLAINT: bleeding in left leg SUBJECTIVE: 6 weeks ago she had bowel perforation and was brought in here. She decided not to have surgery and was sent home on 2 weeks of oral abx. 2 weeks later she has hematemesis while on coumadin. She was treated with vit k at [facility] and was sent to hospice [facility]. She stablized and sent home. Then she developed DVT/ PE and was started on sc lovenox 1mg/kg BID (has CKD 3-4). She then developed bleeding and hematoma in left leg. She denies any abdominal pain, nausea or vomiting or black stool. Denies any chest pain, dyspnea or palpitation. OBJECTIVE: PHYSICAL EXAM: BP 113/88 Pulse 99 Temp (Src) 97.3 (Temporal Artery) Resp 18 Ht 5' 0 (1.52m) Wt 150 lb (68.0kg) SpO2 93% BMI 29.30 kg/(m2). GENERAL: Alert, no distress, cooperative, SKIN: Skin color, texture, turgor normal. No rashes or lesions. OROPHARYNX: Lips, mucosa, and tongue normal. Teeth and gums normal. Oropharynx normal. LUNGS: Lungs clear to auscultation, Air entry good, Unlabored breathing. CARDIAC: Normal S1 and S2; no rubs, murmurs, or gallops ABDOMEN: Abdomen soft, non-tender, non-distended, BS normal. Bruise in her belly EXTREMITIES: left leg: wrapped in dressing and Spike wrap. Foot warm with intact sensation. Right foot non bleeding echymosis NEURO: Grossly normal cognition, motor function, and cranial nerves III-XII MEDICATIONS: Current hospital medications: enoxaparin 70 mg injection (LOVENOX) 1 mg/kg/dose SUBCUTANEOUS DAILY metoprolol tartrate (short acting) 75 mg tab(s) (LOPRESSOR) 75 mg ORAL q 12 H hydroCHLOROthiazide 25 mg tab(s) (HYDRODIURIL, ESIDRIX) 25 mg ORAL DAILY ondansetron orally disintegrating 4 mg tab(s) (ZOFRAN ODT) 4 mg ORAL q 6 H PRN predniSONE 5 mg tab(s) (DELTASONE) 5 mg ORAL BID PC predniSONE 2.5 mg tab(s) (DELTASONE) 2.5 mg ORAL DAILY wDINNER pantoprazole DR 40 mg tab(s) (PROTONIX) 40 mg ORAL DAILY (6 AM) saliva substitute combo no.9 15 mL (BIOTENE mouthwash) 15 mL MUCOUS MEMBRANE (TOPICAL MOUTH AND THROAT) 5X/DAY benzocaine-menthol 1 Lozenge (CEPACOL) 1 Lozenge MUCOUS MEMBRANE (TOPICAL MOUTH AND THROAT) q 2 H PRN 0.9% NaCl 3-5 mL 3-5 mL INTRAVENOUS q 12 H lactated ringers infusion 100 mL/hr INTRAVENOUS CONTINUOUS morphine 1-2 mg injection 1-2 mg INTRAVENOUS q 4 H PRN guaiFENesin 200 mg oral liquid (ROBITUSSIN) 200 mg ORAL QID DATA: Diagnostic tests reviewed for today's visit: CBC, Coags, BMP, Mg, Phos Recent Labs 10/09/17 0630 WBC 15.73* HB 7.8* HCT 25.4* PLT 264 NA 138 K 3.5 CHLOR 105 CO2 24 BUN 32* CREAT 1.55* GLUC 116* CA 8.0* MG 1.4* P 3.6 Liver Function, Amylase, AND Lipase Cardiac Enzymes Heme: Recent Labs 10/09/17 0825 10/09/17 0630 ABSRETIC -- 0.095 RITO -- 181.50 FE 29* -- TIBC 186* -- Albumin/Creat Ratio (mg/g) Date Value 11/03/2013 3 Assessment/Plan Patient Active Hospital Problem List: Intra-abdominal abscess (HCC) (10/08/2017) DVT (deep venous thrombosis) (HCC) (01/08/2014) Pulmonary emboli (HCC) (01/30/2014) CKD (chronic kidney disease) stage 3, GFR 30-59 ml/min (11/28/2014) Venous insufficiency (chronic) (peripheral) () Curry disease () Traumatic hematoma of left lower leg (10/08/2017) Leg hematoma, left, initial encounter (10/08/2017) ASSESSMENT: 1. Sigmoid diverticulitis with pervious perforation with 5cm pelvic abscess: minimal symptoms. 2. Bowel perforation 08/24/17: she refused surgery at that time and was treated with abx. Survived. 3. 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 Used to be on coumadin which was stopped when she developed hematemesis. Since her last PE/PE, was placed on lovenox 1mg/kg BID 4. Left leg bleeding/ hematoma: probably due to higher dose of lovenox for CKD 3-4 Currently wrapped with dressing and SPIKE 5. Episode of hematemesis 5 weeks ago while on coumadin- managed with vitk. No scope done. 6. SVT this am: better with metoprolol. 7. Anemia: most likely due to bleed.? CKD and recent conditions contributing. 8. Addision's disease: 9. CKD3 PLAN: She is willing to get abx and drain for intraabdominal abscess. Still does not want surgery. Start meropenem. Consult ID and general surgery. Will need drainage of abscess. Continue to apply spike wrap pressure dressing to left leg. Continue lovenox at 1mg/kg daily dose. Consider eventual transition to coumadin (NOAC too expensive per patient) or IVC filter. Will get opinion of furrier apprentice- has seen Dr Irizarry in the past. Check ferritin, retic, vitamin b12 and folate. This was discussed with patient and later with son on the phone She is DNRCCA and no mechanical ventilation for respiratory distress either. VTE Prophylaxis: Patient is already anti-coagulated. Disposition: Home with [facility] Plan of care discussed with: Patient, Family/Other: son and RN SIGNATURE: Jose Maria Mittal MD PATIENT NAME: Dia Mccullough DATE: October 09, 2017 TIME: 1:33 PM PAGER/CONTACT #: [phone] CONSULT Observed: 10/09/2017 Status: COMPLETED Source: [place] 8:57 AM CLINIC OTHER CAMPUS REPOSITORY O ID: [id number] Author: Javier Wiley Service: General Surgery Author Type: Physician Type: Consults Filed: 10/17/2017 9:24 PM Note Text: CONSULT: General Surgery SERVICE SERVICE DATE: 10/09/2017 SERVICE TIME: 9:42 AM REASON FOR CONSULT: Intraabdominal abscess REQUESTING PHYSICIAN: Dr. Damon PRIMARY CARE PHYSICIAN: Mallorie Wheeler MD Subjective Ms. Mccullough is a 77 year old female recently admitted 08/24/17 from [place] for diverticular abscess/perforation and septic shock. After multiple discussion (with patient/family) regarding recommendations for surgery, patient was discharged to hospice at patient's request on po antibiotics. 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 Readmitted yesterday for CT findings. Denies prior bouts of diverticulitis. No prior colonoscopies. Denies abdominal pain, nausea, or vomiting. Tolerating po. Patient states last BM was 2 days ago and wnl. Tm 37.4 o/n. Tachycardic to 150s this am. No recent weight loss. Denies FMH of IBD or GI malignancy. CT A/P: subcutaneous emphysema in the abdominal wall. Significant decrease in free intraperitoneal air. Colonic diverticulosis wih adjacent phlegmonous changes in the distal sigmoid colon noted with an ill defined pocket of gas and fluid in the presacral region measuring approximately 4.4 x5 cm (likely an ill defined fluid collection/abscess). Colonic fistulas not excluded. 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 - Inflammatory polyarthropathy - Normocytic anemia - PE (pulmonary thromboembolism) (HCC) 01/05/14 Bilat, extensive - Pulmonary embolism without acute cor pulmonale - Pure hypercholesterolemia - Sicca syndrome - Unspecified essential hypertension - Unspecified gastritis and gastroduodenitis without mention of hemorrhage - Urinary tract infection, site not specified - Venous insufficiency (chronic) (peripheral) - Vitamin D deficiency PAST SURGICAL HISTORY Procedure Laterality Date - CATARACT EXTRACTION HX Right - PARTIAL HIP REPLACEMENT Right 04/2013 - PAST SURGICAL HISTORY OF hernia repair - PAST SURGICAL HISTORY OF 11/2012 L3-L4 laminectomy and fusion - PAST SURGICAL HISTORY OF 11/2012 Back fusion surgery - TOTAL HIP REPLACEMENT 05/10/2013 right hip replacement - VENOUS DUPLEX BOTH LOWER EXTREMITIES 05/12/2016 FAMILY HISTORY Problem Relation Age of Onset - Diabetes Mother - Heart Mother - Heart Father - Denies family history of malignancy or thromboembolism. [OTHER] Other Social History Substance Use Topics - Smoking status: Never Smoker - Smokeless tobacco: Never Used - Alcohol use No Prescriptions Prior to Admission: predniSONE (DELTASONE) 2.5 mg tablet Take 2.5 mg by mouth daily before dinner. Disp: Rfl: enoxaparin (LOVENOX) 80 mg/0.8 mL syrg Inject 80 mg subcutaneously q 12 HR. Disp: Rfl: Omeprazole 40 mg capsule Take 40 mg by mouth once daily. Disp: Rfl: predniSONE (DELTASONE) 5 mg tablet Take 5 mg by mouth twice daily. Disp: Rfl: ondansetron orally disintegrating (ZOFRAN ODT) 4 mg disintegrating tablet Take 1 tablet by mouth every 6 hours as needed for Nausea/Vomiting. Disp: 24 tablet Rfl: 0 Past Week at Unknown time hydrochlorothiazide (HYDRODIURIL, ESIDRIX) 25 mg tablet Take 1 tablet by mouth once daily. 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) Disp: Rfl: 10/07/2017 at Unknown time Current hospital medications: enoxaparin 70 mg injection (LOVENOX) 1 mg/kg/dose SUBCUTANEOUS DAILY metoprolol tartrate (short acting) 75 mg tab(s) (LOPRESSOR) 75 mg ORAL q 12 H magnesium sulfate in water 2 g in sterile water 50 ml 2 g INTRAVENOUS ONCE hydroCHLOROthiazide 25 mg tab(s) (HYDRODIURIL, ESIDRIX) 25 mg ORAL DAILY ondansetron orally disintegrating 4 mg tab(s) (ZOFRAN ODT) 4 mg ORAL q 6 H PRN predniSONE 5 mg tab(s) (DELTASONE) 5 mg ORAL BID PC predniSONE 2.5 mg tab(s) (DELTASONE) 2.5 mg ORAL DAILY wDINNER pantoprazole DR 40 mg tab(s) (PROTONIX) 40 mg ORAL DAILY (6 AM) saliva substitute combo no.9 15 mL (BIOTENE mouthwash) 15 mL MUCOUS MEMBRANE (TOPICAL MOUTH AND THROAT) 5X/DAY benzocaine-menthol 1 Lozenge (CEPACOL) 1 Lozenge MUCOUS MEMBRANE (TOPICAL MOUTH AND THROAT) q 2 H PRN 0.9% NaCl 3-5 mL 3-5 mL INTRAVENOUS q 12 H lactated ringers infusion 100 mL/hr INTRAVENOUS CONTINUOUS morphine 1-2 mg injection 1-2 mg INTRAVENOUS q 4 H PRN guaiFENesin 200 mg oral liquid (ROBITUSSIN) 200 mg ORAL QID Allergies As of Date: 10/08/2017 Allergen Noted Reaction ANSAID [FLURBIPROFEN] 12/22/2010 GI Upset ARTHROTEC 50 [DICLOFENAC-MISOPROS*06/24/2011 GI Upset AUGMENTIN [AMOXICILLIN-POT CLAVUL*08/31/2008 GI Upset DOXYCYCLINE 03/17/2005 GI Upset ERYTHROMYCIN 03/17/2005 GI Upset GRASS POLLEN 02/17/2006 LODINE [ETODOLAC] 03/17/2005 NSAIDS (NON-STEROIDAL ANTI-INFLAM*03/11/2017 Unknown POISON LISA 03/17/2005 VIOXX [ROFECOXIB] 03/17/2005 GI Upset Fully Assessed 10/08/2017 COMPLETE REVIEW OF SYSTEMS: See HPI for pertinent ROS Objective PHYSICAL EXAM: Physical Exam Performed: GENERAL: Alert, no distress, cooperative SKIN: Skin color, texture, turgor normal. No rashes or lesions. HEAD/SINUSES: No significant findings LUNGS: no respiratory distress on RA CARDIAC: tachycardic ABDOMEN: Soft, ND, NT, No R/G/BS, ecchymosis noted over LLQ BP 125/68 Pulse 150 Temp (Src) 99.3 (Temporal Artery) Resp 18 Ht 5' 0 (1.52m) Wt 150 lb (68.0kg) SpO2 96% BMI 29.30 kg/(m2). DATA: Diagnostic tests reviewed for today's visit: Most recent labs and imaging results. CBC, Coags, BMP, Mg, Phos Recent Labs 10/09/17 0630 WBC 15.73* HB 7.8* HCT 25.4* PLT 264 NA 138 K 3.5 CHLOR 105 CO2 24 BUN 32* CREAT 1.55* GLUC 116* CA 8.0* MG 1.4* P 3.6 10/08: WBC 20.7, HGB 9.8, Cr 1.6 Impression/Recommendations 77 yo F with diverticulitis c/b perforation/abscess -clinically benign exam, with improving leukocytosis (15.7 <- 20); abscess/phlegmon ill defined on current imaging -d/w transplant surgeon radiologist, developing abscess is located in a region that would be technically very difficult to drain percutaneously -given benign/improved exam, recommend continuing antibiotics per primary, no current plans for surgical intervention -will monitor exam for surgical needs. If exam changes or patient develops signs of worsening infection, will likely need surgical drainage (transrectal vs laparoscopic drain placement) -d/w Dr. Wiley Emergency General Surgery Service Pager: For questions or concerns Mon-Fri 6a-5p please page [phone]. After 5pm and on Weekends and Holidays, please page [phone] if in ICU or [phone] if on RNF. SIGNATURE: Lina Damico MD PATIENT NAME: Dia Mccullough DATE: October 09, 2017 TIME: 8:59 AM PAGER: [phone] Attending Note I evaluated the patient and personally participated in the canales components. I agree with the resident's findings and plan as documented and have discussed the case and management of the patient's care with the resident. Difficult to access and poorly defined abscess. Patient is amenable to IR drainage or laparoscopic assisted drainage, but does not wish full colectomy. Will proceed with trial of IV abx and symptoms management at this time. Patient was tolerating diet without difficulty on my exam. Javier Wiley MD Department of General Surgery Section of Trauma, Surgery Critical Care, and Acute Care Surgery Delayed entry IRON % SATURATION Collected: 10/09/2017 Status: F Source: [employer] [facility] 8:25 AM [employer] SYSTEM REPOSITORY TYPE CODE TESTS RESULT OUT OF REFERENCE UNITS RANGE LAB IRON(LOINC 50-170 ug/dL ) Low Iron Serum 29 LAB IBC(LOINC) 250-450 ug/dL Low Iron Binding Cap. 186 LAB IRON%(LOIN 20-55 % C) Low Iron % Saturation 16 Performed By: #### IRONS #### [place] [address] PROGRESS Observed: 10/09/2017 Status: COMPLETED Source: [place] 6:44 AM CLINIC OTHER CAMPUS REPOSITORY HNO ID: [id number] Author: Gold Clemens Service: Hospital Medicine Author Type: Physician Type: Progress Notes Filed: 10/09/2017 6:45 AM Note Text: Pulse > 150, tele showed SVT, EKG confirmed. Metoprolol PO given, will monitor response. No IV access at this time. HEMOGRAM/DIFF Collected: 10/09/2017 Status: F Source: [employer] [facility] 6:30 AM HEALTH SYSTEM REPOSITORY TYPE CODE TESTS RESULT OUT OF REFERENCE UNITS RANGE LAB WBC(LOINC) 3.98-10.04 thou/cmm WBC High 15.73 LAB RBC(LOINC) 3.93-5.22 mil/cmm Low RBC 2.41 LAB HGB(LOINC) 11.2-15.7 g/dL Low Hgb 7.8 LAB HCT(LOINC) 34.1-44.9 % Low Hct 25.4 LAB MCV(LOINC) 79.4-94.8 fl MCV High 105.4 LAB MCH(LOINC) 25.6-32.2 pg MCH High 32.4 LAB MCHC(LOINC 31.6-34.8 % ) Low MCHC 30.7 LAB RDW(LOINC) 11.7-14.4 % RDW High 20.2 LAB RDWSD(LOIN 36.4-46.3 fl C) RDW SD High 77.7 LAB PLT(LOINC) 182-369 thou/cmm Platelet 264 LAB MPV(LOINC) 9.4-12.3 fl MPV 9.7 LAB NRBCR(LOIN 0.0-0.2 % C) Nucleated RBC % 0.2 LAB NRBCA(LOIN 0.00-0.01 thou/cmm C) High Nucleated RBC 0.03 Absolute LAB SEG(LOINC) % Seg Neutrophil 89.4 LAB IGRE(LOINC % ) Immature Grans 1.20 LAB LYMPH(LOIN % C) Lymphocyte 6.2 LAB MNO(LOINC) % Monocyte 2.8 LAB EOSIN(LOIN % C) Eosinophil 0.2 LAB BASO(LOINC % ) Basophil 0.2 LAB SEGN(LOINC 1.56-6.13 thou/cmm ) Abs. High Neut (ANC) 14.06 LAB IGAB(LOINC 0.00-0.05 thou/cmm ) Abs High Immature Grans 0.19 LAB LYMN(LOINC 1.18-3.74 thou/cmm ) Low Abs. Lymph 0.98 LAB MONON(LOIN 0.27-0.70 thou/cmm C) Abs. Greene 0.44 LAB EOSN(LOINC 0.00-0.31 thou/cmm ) Abs. Eosin 0.03 LAB BASON(LOIN 0.01-0.08 thou/cmm C) Abs. Baso 0.03 Result Comment: Smear scanned; tech agrees with automated differential Performed By: #### [id number] #### [place] [address] BASIC PANEL Collected: 10/09/2017 Status: F Source: [facility] 6:30 AM HEALTH SYSTEM REPOSITORY TYPE CODE TESTS RESULT OUT OF REFERENCE UNITS RANGE LAB NA(LOINC) 136-145 mEq/L Sodium Blood 138 LAB K(LOINC) 3.5-5.1 mEq/L Potassium Blood 3.5 LAB CL(LOINC) 98-107 mEq/L Chloride Blood 105 LAB CO2(LOINC) 21-32 mEq/L CO2 Blood 24 LAB GLU(LOINC) 70-99 mg/dL Glucose High Blood 116 LAB BUN(LOINC) 7-18 mg/dL BUN High Blood 32 LAB CREA(LOINC 0.51-0.95 mg/dL ) High Creatinine Blood 1.55 LAB CA(LOINC) 8.5-10.1 mg/dL Low Calcium Blood 8.0 LAB ANGAP(LOIN 8-16 C) Anion Gap 13 Performed By: #### P8 #### [place] [address] MAGNESIUM BLOOD Collected: 10/09/2017 Status: F Source: [facility] 6:30 [facility] SYSTEM REPOSITORY TYPE CODE TESTS RESULT OUT OF REFERENCE UNITS RANGE LAB MAG(LOINC) 1.6-2.6 mg/dL Low Magnesium Blood 1.4 Performed By: #### MAG #### [place] [address] PHOSPHORUS BLOOD Collected: 10/09/2017 Status: F Source: [facility] 6:30 [facility] SYSTEM REPOSITORY TYPE CODE TESTS RESULT OUT OF REFERENCE UNITS RANGE LAB PHOS(LOINC 2.5-4.9 mg/dL ) Phosphorus Blood 3.6 Performed By: #### PHOS #### [place] [address] TROPONIN I Collected: 10/09/2017 Status: F Source: [facility] 6:30 AM HEALTH SYSTEM REPOSITORY TYPE CODE TESTS RESULT OUT OF REFERENCE UNITS RANGE LAB TROP(LOINC) 0.015-0.045 ng/ml Troponin I < 0.015 Performed By: #### TROP #### [place] [address] MDRD GFR Collected: 10/09/2017 Status: F Source: [facility] 6:30 AM HEALTH SYSTEM REPOSITORY TYPE CODE TESTS RESULT OUT OF RANGE REFERENCE UNITS LAB GFRFN(LOINC >60mL/min/1.73m ) 2 eGFR 32.32 Result Comment: If the patient is , multiply the result by 1.210. Performed By: #### GFR #### [place] [address] RETICULOCYTE COUNT Collected: 10/09/2017 Status: F Source: [facility] 6:30 AM HEALTH SYSTEM REPOSITORY TYPE CODE TESTS RESULT OUT OF REFERENCE UNITS RANGE LAB RETCT(LOIN 1.0-2.1 % C) Reticulocyte High Ct 3.9 LAB RETAS(LOIN 0.038-0.095 mil/cmm C) Absolute Reticulocyte 0.095 LAB IRF(LOINC) 3.0-15.9 % Immature Retic High Fractions 40.9 LAB RETHE(LOIN 27.9-38.4 pg C) Retic Hemoglobin 37.3 Equivalent Performed By: #### RETC1 #### [place] [address] FERRITIN Collected: 10/09/2017 Status: F Source: [facility] 6:30 AM HEALTH SYSTEM REPOSITORY TYPE CODE TESTS RESULT OUT OF REFERENCE UNITS RANGE LAB FERR(LOINC) 8.00-252.00 ng/mL Ferritin 181.50 Performed By: #### FERR #### [place] [address] VITAMIN B12 Collected: 10/09/2017 Status: F Source: [facility] 6:30 AM HEALTH SYSTEM REPOSITORY TYPE CODE TESTS RESULT OUT OF REFERENCE UNITS RANGE LAB B12(LOINC) 193-986 pg/mL Vitamin B12 619 Performed By: #### B12 #### [place] [address] FOLATE Collected: 10/09/2017 Status: F Source: [facility] 6:30 AM [facility] SYSTEM REPOSITORY TYPE CODE TESTS RESULT OUT OF REFERENCE UNITS RANGE LAB FOL(LOINC) 3.10-17.50 ng/mL High Folate 20.80 Performed By: #### FOL #### [place] [address] EKG (AK,AV,EU,FV,HL,EDIE,MM,SP) Observed: Status: F Source: [place] 10/09/2017 6:17 AM CLINIC OTHER CAMPUS REPOSITORY NAME : DIA MCCULLOUGH PID : [id number] : 1940 Gender : Female Race : ORD : [id number] Procedure Date : Oct 09 2017 06:17 Edit Date : Oct 11 2017 08:10 Diagnosis: POOR DATA QUALITY, INTERPRETATION MAY BE ADVERSELY AFFECTED SUPRAVENTRICULAR TACHYCARDIA PROBABLE SINUS TACCHYCARDIA. LEFT ANTERIOR FASCICULAR BLOCK NONSPECIFIC ST AND T WAVE ABNORMALITY ABNORMAL ECG WHEN COMPARED WITH ECG OF 24-AUG-2017 13:40, NO SIGNIFICANT CHANGE WAS FOUND Confirmed by MD GRIFFITH G (2) on 10/11/2017 8:09:58 AM Ventricular Rate : 164 BPM Atrial Rate : 156 BPM QRS Duration : 70 ms Q-T Interval : 280 ms QTC Calculation(Bezet) : 462 ms R Acampo : -51 degrees T Acampo : 64 degrees Test Reason : Arrhythmia Location : 51 : 5100 510 Overread By : MD GRIFFITH G Editted By : MD GRIFFITH G Referred By : GOLD CLEMENS Acquired by : Renae Bartlett HISTORY PHYSICAL Observed: 10/08/2017 Status: COMPLETED Source: [place] 10:57 PM [facility] OTHER [place] REPOSITORY HNO ID: [id number] Author: Gold Clemens Service: Hospital Medicine Author Type: Physician Type: HANDP Filed: 10/08/2017 11:51 PM Note Text: DEPARTMENT OF HOSPITAL MEDICINE [facility] HISTORY AND PHYSICAL EXAMINATION SERVICE DATE: 10/08/2017 10:57 PM PRIMARY CARE PHYSICIAN: Mallorie Wheeler MD Subjective CHIEF COMPLAINT: Left leg hematoma HPI: This is a 77 year old female who has a complicated recent medical history starting August 24 when she was diagnosed with diverticular abscess/perforation and septic shock. She was brought here for surgical eval from [place], but declined operative intervention and requested to go home with hospice on PO antibiotics. She took 2 weeks of antibiotics, had stabilization and improvement of her symptoms, but subsequently developed hematemesis due to anticoagulation and presumed PUD. She was admitted to inpatient hospice residence, but with stopping her anticoagulation, hematemesis stopped and she was discharged from inpatient hospice. She then had new DVT and PE developing off anticoagulation and was re-hospitalized, with initiation of Lovenox at full dose. She spent some time in the transitional care unit and was sent home 1 week ago on Lovenox. Yesterday she noted an area on her left foot/pretibial area of bruise/oozing blood, but it worsened and progressed to cover much of the pretibial area with more bleeding, and she went to the [place] ED this morning. She was discharged back home after wound evaluation and no finding of circulatory compromise. Her son then brought her back to the ED with a concern over abdominal pain and insistent on hospitalization per [place] ED notes. Eval included CT abdomen which showed a 5 cm abscess/phlegmon in the same area as the original perforation, and she was recommended to be transferred to have IR evaluation of percutaneous drainage. Patient denies any abdominal pain at any time recently, and has no fever/chills/nausea/vomiting. She is eating and drinking without difficulty and having relatively formed stools. Mild pain left leg. 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 - Inflammatory polyarthropathy - Normocytic anemia - PE (pulmonary thromboembolism) ([facility]) 01/05/14 Bilat, extensive - Pulmonary embolism without acute cor pulmonale - Pure hypercholesterolemia - Sicca syndrome - Unspecified essential hypertension - Unspecified gastritis and gastroduodenitis without mention of hemorrhage - Urinary tract infection, site not specified - Venous insufficiency (chronic) (peripheral) - Vitamin D deficiency PAST SURGICAL HISTORY Procedure Laterality Date - CATARACT EXTRACTION HX Right - PARTIAL HIP REPLACEMENT Right 04/2013 - PAST SURGICAL HISTORY OF hernia repair - PAST SURGICAL HISTORY OF 11/2012 L3-L4 laminectomy and fusion - PAST SURGICAL HISTORY OF 11/2012 Back fusion surgery - TOTAL HIP REPLACEMENT 05/10/2013 right hip replacement - VENOUS DUPLEX BOTH LOWER EXTREMITIES 05/12/2016 FAMILY HISTORY Problem Relation Age of Onset - Diabetes Mother - Heart Mother - Heart Father - Denies family history of malignancy or thromboembolism. [OTHER] Other Social History Substance Use Topics - Smoking status: Never Smoker - Smokeless tobacco: Never Used - Alcohol use No MEDICATIONS Please see reconciled medication list in Epic for details on home medications. ALLERGIES Allergen Reactions - Ansaid [Flurbiprofe* GI Upset Ulcer - Arthrotec 50 [Diclo* GI Upset Cytotec upset stomach more than just the voltaren by itself - Augmentin [Amoxicil* GI Upset tolerates cephalexin - Doxycycline GI Upset - Erythromycin GI Upset - Grass Pollen - Lodine [Etodolac] - Nsaids (Non-Steroid* Unknown - Poison Lisa - Vioxx [Rofecoxib] GI Upset COMPLETE REVIEW OF SYSTEMS: PAIN ASSESSMENT: CURRENTLY HAVING PAIN; Left leg mild pain GENERAL: Fatigue HEENT: Negative for frequent or significant headaches, No changes in hearing or vision, no nose bleeds or other nasal problems NECK: Negative for lumps, goiter, pain and significant neck swelling RESPIRATORY: Negative for cough, hemoptysis, wheezing, COPD, dyspnea or shortness of breath CARDIOVASCULAR: Negative for chest pain, leg swelling, hypertension, CHF or palpitations GI: No nausea, vomiting, or diarrhea and Negative for abdominal discomfort, blood in stools or black stools, change in bowel habit, heart burn : No history of dysuria, frequency or incontinence MUSCULOSKELETAL: see HPI SKIN: See HPI PSYCH: Negative for sleep disturbance, mood disorder and recent psychosocial stressors HEMATOLOGY/LYMPHOLOGY: Positive for bruises easily ENDOCRINE: Negative for cold or heat intolerance, polyuria, polydipsia and goiter NEURO: No history of headaches, syncope, paralysis, seizures or tremors Objective PHYSICAL EXAM: GENERAL: Alert, no distress, cooperative SKIN: left leg dressing from knee to midfoot not disturbed at this time, no blood on bandages HEAD/SINUSES: No significant findings EYES: PERRLA, EOMI OROPHARYNX: Lips, mucosa, and tongue normal. Teeth and gums normal. Oropharynx normal. NECK: No jugulovenous distention, No carotid bruits, Carotid pulse normal contour, Supple LUNGS: Lungs clear to auscultation, Good diaphragmatic excursion CARDIAC: Normal S1 and S2; no rubs, murmurs, or gallops ABDOMEN: Abdomen soft, non-tender, BS normal, No masses or organomegaly EXTREMITIES: chronic lymphedema changes both legs NEURO: Grossly normal cognition, motor function, and cranial nerves III-XII PULSES: 2+ radial, 2+ dorsalis pedis, 2+ carotid, good cap refill in left foot Patient Vitals for the past 24 hrs: BP Temp Temp src Pulse Resp SpO2 Height Weight 10/08/171958 - - - 114 - - - - 10/08/171950 113/71 36.7 ?C (98.1 ?F) Temporal Art (!) 137 18 97 % 152.4 cm (5') 68 kg (150 lb) Body mass index is 29.29 kg/m?. Assessment/Plan Principal Problem: Intra-abdominal abscess (HCC) POA: Yes Assessment AND Plan: Patient survived sepsis from perforation with only oral antibiotics, finished course 4 weeks ago and has not had symptoms of sepsis/fever/chills or abdominal pain since then. The findings on CT scan are likely residual fluid collection but the clinical scenario does not suggest active infection, nor do I think that percutaneous drainage would offer any improvement to her situation since she is nontender to exam and is not having pain. No need for intervention Active Problems: DVT (deep venous thrombosis) (HCC) POA: Yes Assessment AND Plan: Currently on Lovenox and will continue but at a lower dose since having bleeding complications with left leg hematoma Pulmonary emboli (HCC) POA: Yes Assessment AND Plan: On lovenox, but will reduce dose as above CKD (chronic kidney disease) stage 3, GFR 30-59 ml/min POA: Yes Assessment AND Plan: stable Cr compared to previous values. Will continue IVF and check labs again in AM Venous insufficiency (chronic) (peripheral) POA: Yes Assessment AND Plan: chronic and stable Baltazar disease POA: Yes Assessment AND Plan: continue home prednisone routine TID dosing. Traumatic hematoma of left lower leg POA: Yes Assessment AND Plan: will have wound evaluation, but no signs compartment syndrome and not suspicious of infection at this time. Resolved Problems: * No resolved hospital problems. * Advanced Care Planning Purpose of Encounter: Advanced care planning in light of Intra-abdominal abscess (HCC) Parties in Attendance: Patient, Dr. Gold Clemens MD, Decisional Capacity: full Code Status: DNR-CCA Time Spent on Advance Care Plannin minutes Total time 50 minutes during this encounter, including chart review, discussion with nursing staff and/or other providers, documentation, work order detailer, and [id number] time with patient. Of this time, greater than 50% was spent counseling and coordinating care. Counseling elements include educating the patient about diagnosis, further testing, and care related to Intra-abdominal abscess (HCC). Plan of care discussed with: Patient and RN VTE Prophylaxis: Patient is already anti-coagulated. Diagnostic tests reviewed for today's visit: Most recent labs and imaging results. Most recent EKG TELEMETRY: [facility] Imaging Services [address] [place] [address] Abdomen/Pelvis without Cont MR#: [id number] Acct: [id number] Name: DIA MCCULLOUGH Rep #: [id number] : 1940 F 77 From: Mckay Faulkner MD PCP: Jared Romero MD Status: [facility] ER Study: Abdomen/Pelvis without Cont Date of Exam: 10/08/17 Exam# [id number] Ordering Dr: Ronn Marrero MD STUDY: CT ABDOMEN AND PELVIS WITHOUT CONTRAST REASON FOR EXAM: Female, 77 years old. Abdominal pain. Bowel perforation RADIATION DOSAGE (If Supplied By Facility): CTDIvol = ( 7.83 ) mGy, DLP = ( 387.50 ) mGycm TECHNIQUE: Transaxial images were obtained from the dome of the diaphragm to the symphysis pubis without oral contrast, and without intravenous contrast. Sagittal and coronal images were reconstructed. Individualized dose optimization techniques were used for this CT. COMPARISON: August 24, 2017 CT abdomen pelvis FINDINGS: Lung bases demonstrate no evidence for consolidative process. Gallbladder slightly distended. Liver and pancreas are within normal limits of size. The spleen appears unremarkable. Adrenal glands appear unremarkable Bowel gas pattern is nonobstructive. Duodenal diverticulum seen along the third segment of the duodenum. Kidneys demonstrate no evidence for hydronephrosis Vascular calcifications of the abdominal aorta. Subcutaneous emphysema in the abdominal wall Significant interval decrease in free intraperitoneal air. Colonic diverticulosis with adjacent phlegmonous changes in the distal sigmoid colon noted with a ill-defined pockets of gas and fluid in the presacral region measuring approximately 4.4 cm x 5 cm likely an ill-defined fluid collection/abscess. Study lacks intravenous contrast for complete assessment. Urinary bladder is slightly distended. Degenerative changes in the sacroiliac joints as well as the lumbar spine. Diffuse osteopenia. Postsurgical changes in the lumbar spine also seen. Right-sided hip prosthesis IMPRESSION: Sigmoid colonic diverticulosis with adjacent inflammatory stranding likely related with sigmoid colonic diverticulitis with previously seen perforation and likely 5 cm x 4.4 cm ill-defined fluid collection with pockets of gas likely an abscess in the presacral space. Study lacks intravenous contrast for complete assessment. Colonic fistulas are not excluded. Subcutaneous emphysema in the abdominal wall Significant interval decrease in previously noted free air SIGNATURE: Gold Clemens MD PATIENT NAME: Dia Mccullough DATE: October 08, 2017 TIME: 10:57 PM PAGER/CONTACT #: [phone] NIGHT AND WEEKEND COVERAGE: After 7pm please page [phone] EMERGENCY DEPARTMENT Observed: 10/08/2017 Status: F Source: HOOD SUMMARY 4:06 PM [facility] REPOSITORY [facility] Medical Records Department [address] [place] [address] Emergency Department Summary 10/08/17 1419 MR#: [id number] Acct: [id number] Name: DIA MCCULLOUGH Rep #: [id number] : 1940 77 From: Ronn Marrero MD PCP: Jared Romero MD Status: REG ER - ER Visit Summary Date of Service: 10/08/17 Chief Complaint: [] Bleeding from left lower leg hematoma History of Present Illness: The patient is a 77 F [] history of DVT and PEs diagnosed recently during apparently an admission per son for some type of bowel perforation for which the patient refused surgery she was treated nonsurgically, found to have the DVT PE is started on Lovenox, last night high scaler she developed what sounds like a small hematoma the left leg she was seen in the emergency department labs were drawn they were unremarkable see those reports, she basically had resolution of the bleeding and the pain and felt stable and she felt stable and improved for discharge when she got home she noticed that the bleeding in the hematoma seemed to enlarged further bleeding she could not control she bled through the bandage and she was brought back for evaluation She and her son is with her now he indicates she is continued complaint of vague nonspecific abdominal discomfort and he wants her evaluated for that he further indicates she lives at home alone and she cannot manage a slight hematoma bleeding and feel she requires admission Physical Examination: [] Sitting comfortably in the bed her only complaint is the left leg head neck chest unremarkable the abdomen soft nontender, the left lower leg there is a large hematoma that basically involves most of the anterior soni region, it is oozing blood from a 2 cm break in the skin, there is no signs of active infection and there is no signs of pulsatile bleeding, she has a strong dorsalis pedis pulse she is able dorsi and plantarflex her foot the foot exams unremarkable the posterior calf exams unremarkable hematoma involves the anterior soni region her knee and thigh are unremarkable her backs unremarkable upper lower extremities are otherwise unremarkable, the son is concerned about her abdomen but her abdomen soft and nontender and she has no complaints of any abdominal issues The patient is quite adamant that she wants nothing done for the abdominal condition perforation abscess she will not consent to surgery in fact last time she actually went to hospice but improved with antibiotic therapy at this time she states she is eating well drinking well having normal bowel bladder habits and is only here for her leg Test Results: [] Emergency Department Course and Treatment: [] She had labs earlier in the day prior ER visit there unremarkable I have added some screening labs I have added based on son's concerns abdominal CT, and I have asked the hospital see her for admission given all the above and the fact she cannot be managed at home The white count is 20,[address] shows signs of an abscess in the left lower quadrant related to the prior sigmoid diverticulitis rupture In all this the patient her son the patient wants nothing done for that she is agreeing to have antibiotics only again she is only concerned about her leg she wants the leg managed I have explained all the above to the hospitalist came down and spoke with the patient her son he recommended that she be transferred to facility where she could have an interventional radiology drainage of the abscess which reportedly cannot be done at [facility], the son and daughter agreed to be transferred to [facility] where she had been admitted for to be evaluated for this possibility Start the patient on Rocephin, I did speak with [facility] transfer service and they are discussing the issue with their physicians and will arrange for transfer Treatment Plan: [] Disposition: [] Admit pending hospitalist evaluation versus transfer to [facility] Impression: [] Left lower extremity hematoma with bleeding, intermittent abdominal pain, left lower quadrant abscess related to prior sigmoid diverticular rupture which patient does not wish to have any surgical or aggressive therapy for, reported history for recent bowel perforation, history of DVT PE on Lovenox This note was generated with Druidly dictation software. It may contain incorrect words, spelling, and punctuation that were not noted in review of the chart prior to signing ED Disposition - Plan for ED Patient: Chief Complaint: Wound Referrals: Jared Romero MD [Primary Care Provider] - What to do if you have Problems For any increased pain, shortness of breath, bleeding, nausea or vomiting, chest pain, or any unexpected problems, contact your Primary Care Provider. Call [facility] ([phone]) or report to the closest Emergency Room. Call 911 if necessary. 10/08/17 1606 <Electronically signed by Ronn Marrero MD> Date Ronn Marrero MD Cosigner Signature (If Indicated): Date CC: Jared Romero MD CBC W/DIFF, AUTOMATED Collected: 10/08/2017 Status: F Source: HOOD 2:15 PM [facility] REPOSITORY TYPE CODE TESTS RESULT OUT OF RANGE REFERENCE UNITS LAB L100.1000 4.4-11.0 K/mm3 High WBC 20.7 LAB L100.1200 4.2-5.4 M/mm3 Low RBC 3.08 LAB L100.1300 12.0-15.0 g/dl Low HGB 9.8 LAB L100.1400 37-47 % Low HCT 32.2 LAB L100.1500 81-99 fL High MCV 104.5 LAB L100.1600 27.0-32.0 pg Normal MCH 31.8 LAB L100.1700 32-36 g/gl Low MCHC 30.4 LAB L100.1810 11.6-14.6 % High RDW CV 19.9 LAB L100.1820 35.1-43.9 fl High RDW SD 73.1 LAB L100.1900 150-450 K/mm3 Normal PLT 371 LAB L100.2000 6.2-12.0 fl Normal MPV 9.7 LAB L100.2100 47-70 % High NEUT% 89.3 LAB L100.2200 19-41 % Low LY% 5.0 LAB L100.2300 0-10 % Normal MONO% 4.2 LAB L100.2400 0-5 % Normal EO% 0.0 LAB L100.2500 0-1 % Normal BASO% 0.1 LAB L100.2550 0.0-0.9 % High IM GRAN % 1.400 Result Comment: IG% - Immature Granulocytes (promyelocytes, myelocytes and metamyelocytes) > 1% indicates that a LEFT SHIFT is Present. LAB L100.2620 2.0-7.7 X10 3/uL Absolute Neut High 18.5 LAB L100.2720 0.83-4.51 X10 3/ul Absolute Lymph Normal 1.03 LAB L100.7300 ANISO Normal 1+ LAB L100.7600 HYPOCHROMASIA Normal 2+ LAB L100.7800 MACROCYTE Normal 1+ Performed By: #### L100.0100 #### [facility] [address] [place], [address] PROTHROMBIN TIME W/INR Collected: 10/08/2017 Status: F Source: HOOD 2:15 PM [facility] REPOSITORY TYPE CODE TESTS RESULT OUT OF RANGE REFERENCE UNITS LAB L300.4150 11.7-14.9 SECONDS Normal PROTIME 14.6 LAB L300.4200 Normal INR 1.1 Performed By: #### L300.3900 #### [facility] [address] [place], [place], [address] BASIC METABOLIC Collected: 10/08/2017 Status: F Source: ANNMARIE PROFILE (BMP) 2:15 PM [facility] REPOSITORY TYPE CODE TESTS RESULT OUT OF RANGE REFERENCE UNITS LAB L501.0100 74-106 mg/dL High GLU 158 Result Comment: Fasting Glucose result greater than or equal to 126 mg/dL suggests DIABETES MELLITUS per A.D.A. criteria. Please note revised GLUCOSE reference range effective 2017. LAB L501.1000 7-18 mg/dL High BUN 28 LAB L501.1100 0.55-1.02 mg/dL High CREAT,SERUM 1.60 Result Comment: The validity of the calculated GFR AND GFRAA in patients over 70 years has not been determined. Clinical correlation is essential. LAB L501.1110 >60 mL/min Low EST GFR 33 Result Comment: Non- GFR Calc LAB L501.1115 >60 mL/min Low EST GFR - AA 40 Result Comment: GFR Calc LAB L501.1255 ml/min Normal Estimated CRCL 20.81 LAB L501.1300 10-20 RATIO Normal BUN/CRE 17.5 LAB L501.2200 8.5-10 mg/dL Normal .1 CA 8.7 LAB L501.5300 136-14 mmol/L Normal 5 NA 140 LAB L501.5600 3.5-5. mmol/L Normal 1 K 4.2 LAB L501.5900 98-107 mmol/L Normal CL 106 LAB L501.6100 21.0-3 mmol/L Normal 2.0 CO2 23.0 LAB L501.6200 5-15 Normal GAP 11 Performed By: #### L500.2500, L500.3400, L501.2450 #### [facility] [address] [place], [place], [id number] LIVER PROFILE Collected: 10/08/2017 Status: F Source: HOOD 2:15 PM [facility] REPOSITORY TYPE CODE TESTS RESULT OUT OF RANGE REFERENCE UNITS LAB L501.1500 6.4-8.2 g/dL Low T PROT 6.1 LAB L501.1800 3.2-5.0 g/dL Low ALB 2.7 LAB L501.1950 2.2-4.2 g/dL Normal GLOB 3.4 LAB L501.4100 15-37 U/L Low AST 6 LAB L501.4305 45-117 U/L Normal ALK P 57 LAB L501.4405 13-56 U/L Normal ALT 17 LAB L501.4600 0.20-1.00 mg/dL Normal T BILI 0.40 LAB L501.4700 0.00-0.30 mg/dL Normal D BILI 0.12 Performed By: #### L500.2500, L500.3400, L501.2450 #### [facility] [address] [place], [address] LIPASE Collected: 10/08/2017 Status: F Source: HOOD 2:15 PM [facility] REPOSITORY TYPE CODE TESTS RESULT OUT OF RANGE REFERENCE UNITS LAB L501.2450 73-393 U/L Normal LIPASE 79 Performed By: #### L500.2500, L500.3400, L501.2450 #### [facility] [address] [place], [address] ABDOMEN/PELVIS WITHOUT Observed: 10/08/2017 Status: F Source: HOOD CONT 1:56 PM [facility] REPOSITORY [facility] Imaging Services [address] [address] Abdomen/Pelvis without Cont MR#: [id number] Acct: [id number] Name: DIA MCCULLOUGH Rep #: [id number] : 1940 F 77 From: Mckay Faulkner MD PCP: Jared Romero MD Status: REG ER Study: Abdomen/Pelvis without Cont Date of Exam: 10/08/17 Exam# [id number] Ordering Dr: Ronn Marrero MD STUDY: CT ABDOMEN AND PELVIS WITHOUT CONTRAST REASON FOR EXAM: Female, 77 years old. Abdominal pain. Bowel perforation RADIATION DOSAGE (If Supplied By Facility): CTDIvol = ( 7.83 ) mGy, DLP = ( 387.50 ) mGycm TECHNIQUE: Transaxial images were obtained from the dome of the diaphragm to the symphysis pubis without oral contrast, and without intravenous contrast. Sagittal and coronal images were reconstructed. Individualized dose optimization techniques were used for this CT. COMPARISON: August 24, 2017 CT abdomen pelvis FINDINGS: Lung bases demonstrate no evidence for consolidative process. Gallbladder slightly distended. Liver and pancreas are within normal limits of size. The spleen appears unremarkable. Adrenal glands appear unremarkable Bowel gas pattern is nonobstructive. Duodenal diverticulum seen along the third segment of the duodenum. Kidneys demonstrate no evidence for hydronephrosis Vascular calcifications of the abdominal aorta. Subcutaneous emphysema in the abdominal wall Significant interval decrease in free intraperitoneal air. Colonic diverticulosis with adjacent phlegmonous changes in the distal sigmoid colon noted with a ill-defined pockets of gas and fluid in the presacral region measuring approximately 4.4 cm x 5 cm likely an ill- defined fluid collection/abscess. Study lacks intravenous contrast for complete assessment. Urinary bladder is slightly distended. Degenerative changes in the sacroiliac joints as well as the lumbar spine. Diffuse osteopenia. Postsurgical changes in the lumbar spine also seen. Right-sided hip prosthesis IMPRESSION: Sigmoid colonic diverticulosis with adjacent inflammatory stranding likely related with sigmoid colonic diverticulitis with previously seen perforation and likely 5 cm x 4.4 cm ill-defined fluid collection with pockets of gas likely an abscess in the presacral space. Study lacks intravenous contrast for complete assessment. Colonic fistulas are not excluded. Subcutaneous emphysema in the abdominal wall Significant interval decrease in previously noted free air Electronically Signed: Mckay Faulkner, at 15:03 EDT Tel , Service support , CT/Abdomen/Pelvis without Cont CC: MD Brian Marrero; Jared Romero MD Fruit Pitter: Signed EMERGENCY DEPARTMENT Observed: 10/08/2017 Status: F Source: HOOD SUMMARY 4:25 AM [facility] REPOSITORY [facility] Medical Records Department [address] [place] [address] Emergency Department Summary 10/08/17 0418 MR#: [id number] Acct: [id number] Name: DIA MCCULLOUGH Rep #: [id number] : 1940 77 From: Cali Bucio MD PCP: Jared Romero MD Status: REG ER - ER Visit Summary Date of Service: 10/08/17 Chief Complaint: Left lower extremity with large hematoma History of Present Illness: The patient is a 77 F who presents because of pain and large hematoma distal medial left leg. She states 4-5 hours prior to presentation a small black hematoma. It has grown significantly in size. She is presently administering 70 mg of Lovenox twice a day. She was diagnosed earlier this month with bilateral pulmonary medicine bilateral DVT. She denies fever, chills night sweats. She denies a ocular, auditory or visual symptoms. She denies any cardiac or respiratory symptoms. She denies hematemesis, black or maroon stool. She denies blood in her urine. She does report bruising easily. Per old records he has a history of end-stage renal disease. There is also past medical history of GI bleed, bowel perforation and Curry's disease. Physical Examination: Patient appears uncomfortable. Blood pressure is elevated 165/100. Heart rate is 120. In my opinion her elevated blood pressure heart rate are in all likelihood secondary to pain. Head is atraumatic normocephalic. Pupils are equal round reactive. Extraocular muscles are intact. TMs are pearly white with landmarks noted. Nares patent with no drainage. Posterior pharynx without erythema or exudate. Uvula is midline. There is no dysphonia or dysphasia. Trachea is midline. There is no stridor with auscultation of the neck. Heart is regular without murmur, gallop or rub. Lungs clear to auscultation. Examination lower extremity reveals a large hematoma distal medial left leg. DP and PT pulses are palpable. Passive plantar and dorsiflexion of toes and foot does not cause pain. The hematoma is not taut and firm. Test Results: H AND H 11.6 and 37.3. White count slightly elevated 12.3. BUN/creatinine 23 with creatinine 1.4 to a GFR of 38. INR is 1.1 and PTT is elevated 37.8. Patient's creatinine has increased since earlier this month. Emergency Department Course and Treatment: The hematoma spontaneously ruptured and drained itself. Consult with pharmacy regarding Lovenox dosing. In light of age GFR Lovenox dose should be 70 units once a day and not twice a day. Patient was informed she needs to decrease her dose and follow-up with her cook mayonnaise. Treatment Plan: Decrease dose of Lovenox, follow-up with PCP for wound check in 2 days and follow-up with cook mayonnaise. Disposition: Discharged to home in stable condition Impression: 1. Spontaneous hematoma left lower extremity with multiple bruises secondary to Lovenox induced coagulopathy secondary to renal insufficiency, acute 2. Chronic anemia 3. Acute renal insufficiency 4. Recent diagnosis of bilateral PE and DVT 5. History of Curry's disease This note was generated with Robotok[employer] software. It may contain incorrect words, spelling, and punctuation that were not noted in review of the chart prior to signing ED Disposition - Plan for ED Patient: Disposition: Home or Assisted Living Chief Complaint: Lower Extremity Injury Instructions: ED Hematoma Referrals: Jared Romero MD [Primary Care Provider] - 2 Days for wound check Additional Instructions: Decrease Lovenox to 1 injection a day. Follow-up with your primary care doctor for evaluation of hematoma in 2 days. Follow-up with your cook mayonnaise because of worsening kidney function, GFR What to do if you have Problems For any increased pain, shortness of breath, bleeding, nausea or vomiting, chest pain, or any unexpected problems, contact your Primary Care Provider. Call [facility] ([phone]) or report to the closest Emergency Room. Call 911 if necessary. 10/08/17 0425 <Electronically signed by Cali Bucio MD> Date Cali Bucio MD Cosigner Signature (If Indicated): Date CC: Jared Romero MD CBC W/DIFF, AUTOMATED Collected: 10/08/2017 Status: F Source: HOOD 3:24 AM [facility] REPOSITORY TYPE CODE TESTS RESULT OUT OF RANGE REFERENCE UNITS LAB L100.1000 4.4-11.0 K/mm3 High WBC 12.3 LAB L100.1200 4.2-5.4 M/mm3 Low RBC 3.63 LAB L100.1300 12.0-15.0 g/dl Low HGB 11.6 LAB L100.1400 37-47 % Normal HCT 37.3 LAB L100.1500 81-99 fL High MCV 102.8 LAB L100.1600 27.0-32.0 pg Normal MCH 32.0 LAB L100.1700 32-36 g/gl Low MCHC 31.1 LAB L100.1810 11.6-14.6 % High RDW CV 20.0 LAB L100.1820 35.1-43.9 fl High RDW SD 72.8 LAB L100.1900 150-450 K/mm3 Normal PLT 396 LAB L100.2000 6.2-12.0 fl Normal MPV 9.3 LAB L100.2100 47-70 % High NEUT% 76.4 LAB L100.2200 19-41 % Low LY% 14.5 LAB L100.2300 0-10 % Normal MONO% 7.1 LAB L100.2400 0-5 % Normal EO% 0.2 LAB L100.2500 0-1 % Normal BASO% 0.3 LAB L100.2550 0.0-0.9 % High IM GRAN % 1.500 Result Comment: IG% - Immature Granulocytes (promyelocytes, myelocytes and metamyelocytes) > 1% indicates that a LEFT SHIFT is Present. LAB L100.2620 2.0-7.7 X10 3/uL Absolute Neut High 9.4 LAB L100.2720 0.83-4.51 X10 3/ul Absolute Lymph Normal 1.79 LAB L100.4500 SMEAR COMMENT Normal SCAN LAB L100.7300 ANISO Normal 1+ LAB L100.7500 POLYCHROMASIA Normal 1+ LAB L100.7800 MACROCYTE Normal 1+ Performed By: #### L100.0100 #### [facility] [address] [place], [address] BASIC METABOLIC Collected: 10/08/2017 Status: F Source: ANNMARIE PROFILE (BMP) 3:24 AM [facility] REPOSITORY TYPE CODE TESTS RESULT OUT OF RANGE REFERENCE UNITS LAB L501.0100 74-106 mg/dL High GLU 123 Result Comment: Fasting Glucose result from 100 to 125 mg/dL suggests IMPAIRED HOMEOSTASIS per A.D.A. criteria. Please note revised GLUCOSE reference range effective 2017. LAB L501.1000 7-18 mg/dL High BUN 23 LAB L501.1100 0.55-1.02 mg/dL High CREAT,SERUM 1.42 Result Comment: The validity of the calculated GFR AND GFRAA in patients over 70 years has not been determined. Clinical correlation is essential. LAB L501.1110 >60 mL/min Low EST GFR 38 Result Comment: Non- GFR Calc LAB L501.1115 >60 mL/min Low EST GFR - AA 46 Result Comment: GFR Calc LAB L501.1255 ml/min Normal Estimated CRCL 23.45 LAB L501.1300 10-20 RATIO Normal BUN/CRE 16.2 LAB L501.2200 8.5-10 mg/dL Normal .1 CA 8.8 LAB L501.5300 136-14 mmol/L Normal 5 NA 143 LAB L501.5600 3.5-5. mmol/L Normal 1 K 4.0 LAB L501.5900 98-107 mmol/L High CL 108 LAB L501.6100 21.0-3 mmol/L Normal 2.0 CO2 26.0 LAB L501.6200 5-15 Normal GAP 9 Performed By: #### L500.2500 #### [facility] [address] [place], [address] PROTHROMBIN TIME W/INR Collected: 10/08/2017 Status: F Source: ANNMARIE 3:24 AM [facility] REPOSITORY TYPE CODE TESTS RESULT OUT OF RANGE REFERENCE UNITS LAB L300.4150 11.7-14.9 SECONDS Normal PROTIME 14.2 LAB L300.4200 Normal INR 1.1 Performed By: #### L300.3900, L300.4310 #### [facility] [address] [place], [address] PARTIAL THROMBOPLAST Collected: 10/08/2017 Status: F Source: HOOD TIME 3:24 AM [facility] REPOSITORY TYPE CODE TESTS RESULT OUT OF REFERENCE UNITS RANGE LAB L300.4310 24.1-36.2 Seconds High PTT 37.8 Performed By: #### L300.3900, L300.4310 #### [place] [facility] [address] [place], [address] HOSP Observed: 10/08/2017 Status: COMPLETED Source: ARVIN 12:00 AM CLINIC OTHER CAMPUS REPOSITORY Patient:Dia Mccullough MRN: <[id number]> Height:5' 0(1.524 m) Weight:155 lb 13.8 oz (70.7 kg) Outpatient Medications as of 10/17/17: fluconazole (DIFLUCAN) 200 mg tablet metoprolol tartrate, short acting, (LOPRESSOR) 25 mg tablet enoxaparin (LOVENOX) 80 mg/0.8 mL syrg polyethylene glycol 3350 (MIRALAX, GLYCOLAX) 17 gram packet HYDROcodone-acetaminophen (NORCO) 5-325 mg per tablet amoxicillin-clavulanic acid (AUGMENTIN) 875-125 mg per tablet ciprofloxacin HCl (CIPRO) 500 mg tablet predniSONE (DELTASONE) 2.5 mg tablet Omeprazole 40 mg capsule predniSONE (DELTASONE) 5 mg tablet ondansetron orally disintegrating (ZOFRAN ODT) 4 mg disintegrating tablet Admission/Clinic Administered Medications as of 10/17/17: melatonin 3 mg tab(s) amoxicillin-clavulanic acid 875 mg tab(s) (AUGMENTIN) ciprofloxacin HCl 500 mg tab(s) (CIPRO) fluconazole 400 mg tab(s) (DIFLUCAN) acetaminophen 650 mg tab(s) (TYLENOL) iv contrast (radiology procedure) enoxaparin 70 mg injection (LOVENOX) HYDROcodone 5 mg - acetaminophen 325 mg tablet (NORCO) polyethylene glycol 3350 17 g packet (MIRALAX, GLYCOLAX) metoprolol tartrate (short acting) 25 mg tab(s) (LOPRESSOR) acetaminophen 650 mg tab(s) (TYLENOL) ondansetron orally disintegrating 4 mg tab(s) (ZOFRAN ODT) predniSONE 5 mg tab(s) (DELTASONE) predniSONE 2.5 mg tab(s) (DELTASONE) pantoprazole DR 40 mg tab(s) (PROTONIX) saliva substitute combo no.9 15 mL (BIOTENE mouthwash) benzocaine-menthol 1 Lozenge (CEPACOL) 0.9% NaCl 3-5 mL lactated ringers infusion guaiFENesin 200 mg oral liquid (ROBITUSSIN) 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.4] Asthma [J45.909] Vitamin D deficiency [E55.9] Osteoarthrosis, unspecified whether generalized or localized, hand [M19.049] Osteoarthrosis, unspecified whether generalized or localized, ankle and foot [M19.079] Fibromyalgia [M79.7] Sicca 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.00] Acute thromboembolism of deep veins of lower extremity (HCC) [I82.409] Inflammatory polyarthritis (HCC) [M06.4] DVT (deep venous thrombosis) (HCC) [I82.409] Pulmonary embolism, bilateral (HCC) [I26.99] Pulmonary emboli (HCC) [I26.99] PMR (polymyalgia rheumatica) (HCC) [M35.3] Generalized osteoarthritis [M15.9] CKD (chronic kidney disease) stage 3, GFR 30-59 ml/min [N18.3] Venous insufficiency (chronic) (peripheral) [I87.2] 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] Perforated bowel (HCC) [K63.1] 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] Intra-abdominal abscess (HCC) [K65.1] Traumatic hematoma of left lower leg [S80.12XA] Leg hematoma, left, initial encounter [S80.12XA] Allergies: Ansaid [Flurbiprofen] Arthrotec 50 [Diclofenac-Misoprostol] Augmentin [Amoxicillin-Pot Clavulanate] Doxycycline Erythromycin Grass Pollen Lodine [Etodolac] Nsaids (Non-Steroidal Anti-Inflammatory Drug) Poison Lisa Vioxx [Rofecoxib] Date Verified: 10/14/17 Lab Values Lab Value Units Date High Low POTA* 4.3 mEq/L 10/17/2017 5.1 3.5 MOLINA* 29.3 % 10/17/2017 44.9 34.1 Progress Notes (): Gold Clemens MD 10/08/2017 11:51 PM Signed DEPARTMENT OF HOSPITAL MEDICINE [facility] HISTORY AND PHYSICAL EXAMINATION SERVICE DATE: 10/08/2017 10:57 PM PRIMARY CARE PHYSICIAN: Mallorie Wheeler MD Subjective CHIEF COMPLAINT: Left leg hematoma HPI: This is a 77 year old female who has a complicated recent medical history starting August 24 when she was diagnosed with diverticular abscess/perforation and septic shock. She was brought here for surgical eval from [place], but declined operative intervention and requested to go home with hospice on PO antibiotics. She took 2 weeks of antibiotics, had stabilization and improvement of her symptoms, but subsequently developed hematemesis due to anticoagulation and presumed PUD. She was admitted to inpatient hospice residence, but with stopping her anticoagulation, hematemesis stopped and she was discharged from inpatient hospice. She then had new DVT and PE developing off anticoagulation and was re-hospitalized, with initiation of Lovenox at full dose. She spent some time in the transitional care unit and was sent home 1 week ago on Lovenox. Yesterday she noted an area on her left foot/pretibial area of bruise/oozing blood, but it worsened and progressed to cover much of the pretibial area with more bleeding, and she went to the [place] ED this morning. She was discharged back home after wound evaluation and no finding of circulatory compromise. Her son then brought her back to the ED with a concern over abdominal pain and insistent on hospitalization per [place] ED notes. Eval included CT abdomen which showed a 5 cm abscess/phlegmon in the same area as the original perforation, and she was recommended to be transferred to have IR evaluation of percutaneous drainage. Patient denies any abdominal pain at any time recently, and has no fever/chills/nausea/vomiting. She is eating and drinking without difficulty and having relatively formed stools. Mild pain left leg. 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 Hansen - Inflammatory polyarthropathy - Normocytic anemia - PE (pulmonary thromboembolism) ([facility]) 01/05/14 Bilat, extensive - Pulmonary embolism without acute cor pulmonale - Pure hypercholesterolemia - Sicca syndrome - Unspecified essential hypertension - Unspecified gastritis and gastroduodenitis without mention of hemorrhage - Urinary tract infection, site not specified - Venous insufficiency (chronic) (peripheral) - Vitamin D deficiency PAST SURGICAL HISTORY Procedure Laterality Date - CATARACT EXTRACTION HX Right - PARTIAL HIP REPLACEMENT Right 04/2013 - PAST SURGICAL HISTORY OF hernia repair - PAST SURGICAL HISTORY OF 11/2012 L3-L4 laminectomy and fusion - PAST SURGICAL HISTORY OF 11/2012 Back fusion surgery - TOTAL HIP REPLACEMENT 05/10/2013 right hip replacement - VENOUS DUPLEX BOTH LOWER EXTREMITIES 05/12/2016 FAMILY HISTORY Problem Relation Age of Onset - Diabetes Mother - Heart Mother - Heart Father - Denies family history of malignancy or thromboembolism. [OTHER] Other Social History Substance Use Topics - Smoking status: Never Smoker - Smokeless tobacco: Never Used - Alcohol use No MEDICATIONS Please see reconciled medication list in [facility] for details on home medications. ALLERGIES Allergen Reactions - Ansaid [Flurbiprofe* GI Upset Ulcer - Arthrotec 50 [Diclo* GI Upset Cytotec upset stomach more than just the voltaren by itself - Augmentin [Amoxicil* GI Upset tolerates cephalexin - Doxycycline GI Upset - Erythromycin GI Upset - Grass Pollen - Lodine [Etodolac] - Nsaids (Non-Steroid* Unknown - Poison Lisa - Vioxx [Rofecoxib] GI Upset COMPLETE REVIEW OF SYSTEMS: PAIN ASSESSMENT: CURRENTLY HAVING PAIN; Left leg mild pain GENERAL: Fatigue HEENT: Negative for frequent or significant headaches, No changes in hearing or vision, no nose bleeds or other nasal problems NECK: Negative for lumps, goiter, pain and significant neck swelling RESPIRATORY: Negative for cough, hemoptysis, wheezing, COPD, dyspnea or shortness of breath CARDIOVASCULAR: Negative for chest pain, leg swelling, hypertension, CHF or palpitations GI: No nausea, vomiting, or diarrhea and Negative for abdominal discomfort, blood in stools or black stools, change in bowel habit, heart burn : No history of dysuria, frequency or incontinence MUSCULOSKELETAL: see HPI SKIN: See HPI PSYCH: Negative for sleep disturbance, mood disorder and recent psychosocial stressors HEMATOLOGY/LYMPHOLOGY: Positive for bruises easily ENDOCRINE: Negative for cold or heat intolerance, polyuria, polydipsia and goiter NEURO: No history of headaches, syncope, paralysis, seizures or tremors Objective PHYSICAL EXAM: GENERAL: Alert, no distress, cooperative SKIN: left leg dressing from knee to midfoot not disturbed at this time, no blood on bandages HEAD/SINUSES: No significant findings EYES: PERRLA, EOMI OROPHARYNX: Lips, mucosa, and tongue normal. Teeth and gums normal. Oropharynx normal. NECK: No jugulovenous distention, No carotid bruits, Carotid pulse normal contour, Supple LUNGS: Lungs clear to auscultation, Good diaphragmatic excursion CARDIAC: Normal S1 and S2; no rubs, murmurs, or gallops ABDOMEN: Abdomen soft, non-tender, BS normal, No masses or organomegaly EXTREMITIES: chronic lymphedema changes both legs NEURO: Grossly normal cognition, motor function, and cranial nerves III-XII PULSES: 2+ radial, 2+ dorsalis pedis, 2+ carotid, good cap refill in left foot Patient Vitals for the past 24 hrs: BP Temp Temp src Pulse Resp SpO2 Height Weight 10/08/171958 - - - 114 - - - - 10/08/171950 113/71 36.7 ?C (98.1 ?F) Temporal Art (!) 137 18 97 % 152.4 cm (5') 68 kg (150 lb) Body mass index is 29.29 kg/m?. Assessment/Plan Principal Problem: Intra-abdominal abscess (HCC) POA: Yes Assessment AND Plan: Patient survived sepsis from perforation with only oral antibiotics, finished course 4 weeks ago and has not had symptoms of sepsis/fever/chills or abdominal pain since then. The findings on CT scan are likely residual fluid collection but the clinical scenario does not suggest active infection, nor do I think that percutaneous drainage would offer any improvement to her situation since she is nontender to exam and is not having pain. No need for intervention Active Problems: DVT (deep venous thrombosis) (HCC) POA: Yes Assessment AND Plan: Currently on Lovenox and will continue but at a lower dose since having bleeding complications with left leg hematoma Pulmonary emboli (HCC) POA: Yes Assessment AND Plan: On lovenox, but will reduce dose as above CKD (chronic kidney disease) stage 3, GFR 30-59 ml/min POA: Yes Assessment AND Plan: stable Cr compared to previous values. Will continue IVF and check labs again in AM Venous insufficiency (chronic) (peripheral) POA: Yes Assessment AND Plan: chronic and stable Baltazar disease POA: Yes Assessment AND Plan: continue home prednisone routine TID dosing. Traumatic hematoma of left lower leg POA: Yes Assessment AND Plan: will have wound evaluation, but no signs compartment syndrome and not suspicious of infection at this time. Resolved Problems: * No resolved hospital problems. * Advanced Care Planning Purpose of Encounter: Advanced care planning in light of Intra-abdominal abscess (HCC) Parties in Attendance: Patient, Dr. Gold Clemens MD, Decisional Capacity: full Code Status: DNR-CCA Time Spent on Advance Care Plannin minutes Total time 50 minutes during this encounter, including chart review, discussion with nursing staff and/or other providers, documentation, work order detailer, and [id number] time with patient. Of this time, greater than 50% was spent counseling and coordinating care. Counseling elements include educating the patient about diagnosis, further testing, and care related to Intra-abdominal abscess (HCC). Plan of care discussed with: Patient and RN VTE Prophylaxis: Patient is already anti-coagulated. Diagnostic tests reviewed for today's visit: Most recent labs and imaging results. Most recent EKG TELEMETRY: [facility] Imaging Services [address] [place] [address] Abdomen/Pelvis without Cont MR#: [id number] Acct: [id number] Name: DIA MCCULLOUGH Rep #: [id number] : [id number] F [id number] From: Mckay Faulkner MD PCP: Jared Romero MD Status: REG ER Study: Abdomen/Pelvis without Cont Date of Exam: 10/08/17 Exam# [id number] Ordering Dr: Ronn Marrero MD STUDY: CT ABDOMEN AND PELVIS WITHOUT CONTRAST REASON FOR EXAM: Female, 77 years old. Abdominal pain. Bowel perforation RADIATION DOSAGE (If Supplied By Facility): CTDIvol = ( 7.83 ) mGy, DLP = ( 387.50 ) mGycm TECHNIQUE: Transaxial images were obtained from the dome of the diaphragm to the symphysis pubis without oral contrast, and without intravenous contrast. Sagittal and coronal images were reconstructed. Individualized dose optimization techniques were used for this CT. COMPARISON: August 24, 2017 CT abdomen pelvis FINDINGS: Lung bases demonstrate no evidence for consolidative process. Gallbladder slightly distended. Liver and pancreas are within normal limits of size. The spleen appears unremarkable. Adrenal glands appear unremarkable Bowel gas pattern is nonobstructive. Duodenal diverticulum seen along the third segment of the duodenum. Kidneys demonstrate no evidence for hydronephrosis Vascular calcifications of the abdominal aorta. Subcutaneous emphysema in the abdominal wall Significant interval decrease in free intraperitoneal air. Colonic diverticulosis with adjacent phlegmonous changes in the distal sigmoid colon noted with a ill-defined pockets of gas and fluid in the presacral region measuring approximately 4.4 cm x 5 cm likely an ill-defined fluid collection/abscess. Study lacks intravenous contrast for complete assessment. Urinary bladder is slightly distended. Degenerative changes in the sacroiliac joints as well as the lumbar spine. Diffuse osteopenia. Postsurgical changes in the lumbar spine also seen. Right-sided hip prosthesis IMPRESSION: Sigmoid colonic diverticulosis with adjacent inflammatory stranding likely related with sigmoid colonic diverticulitis with previously seen perforation and likely 5 cm x 4.4 cm ill-defined fluid collection with pockets of gas likely an abscess in the presacral space. Study lacks intravenous contrast for complete assessment. Colonic fistulas are not excluded. Subcutaneous emphysema in the abdominal wall Significant interval decrease in previously noted free air SIGNATURE: Gold Clemens MD PATIENT NAME: Dia Mccullough DATE: October 08, 2017 TIME: 10:57 PM PAGER/CONTACT #: [phone] NIGHT AND WEEKEND COVERAGE: After 7pm please page [phone] Gold Clemens MD 10/09/2017 6:45 AM Signed Pulse > 150, tele showed SVT, EKG confirmed. Metoprolol PO given, will monitor response. No IV access at this time. Lina Damico MD 10/09/2017 5:33 PM Cosign Needed CONSULT: General Surgery SERVICE SERVICE DATE: 10/09/2017 SERVICE TIME: 9:42 AM REASON FOR CONSULT: Intraabdominal abscess REQUESTING PHYSICIAN: Dr. Damon PRIMARY CARE PHYSICIAN: Mallorie Wheeler MD Subjective Ms. Mccullough is a 77 year old female recently admitted 08/24/17 from [place] for diverticular abscess/perforation and septic shock. After multiple discussion (with patient/family) regarding recommendations for surgery, patient was discharged to hospice at patient's request on po antibiotics. 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 Readmitted yesterday for CT findings. Denies prior bouts of diverticulitis. No prior colonoscopies. Denies abdominal pain, nausea, or vomiting. Tolerating po. Patient states last BM was 2 days ago and wnl. Tm 37.4 o/n. Tachycardic to 150s this am. No recent weight loss. Denies FMH of IBD or GI malignancy. CT A/P: subcutaneous emphysema in the abdominal wall. Significant decrease in free intraperitoneal air. Colonic diverticulosis wih adjacent phlegmonous changes in the distal sigmoid colon noted with an ill defined pocket of gas and fluid in the presacral region measuring approximately 4.4 x5 cm (likely an ill defined fluid collection/abscess). Colonic fistulas not excluded. 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 Hansen - Inflammatory polyarthropathy - Normocytic anemia - PE (pulmonary thromboembolism) ([facility]) 01/05/14 Bilat, extensive - Pulmonary embolism without acute cor pulmonale - Pure hypercholesterolemia - Sicca syndrome - Unspecified essential hypertension - Unspecified gastritis and gastroduodenitis without mention of hemorrhage - Urinary tract infection, site not specified - Venous insufficiency (chronic) (peripheral) - Vitamin D deficiency PAST SURGICAL HISTORY Procedure Laterality Date - CATARACT EXTRACTION HX Right - PARTIAL HIP REPLACEMENT Right 04/2013 - PAST SURGICAL HISTORY OF hernia repair - PAST SURGICAL HISTORY OF 11/2012 L3-L4 laminectomy and fusion - PAST SURGICAL HISTORY OF 11/2012 Back fusion surgery - TOTAL HIP REPLACEMENT 05/10/2013 right hip replacement - VENOUS DUPLEX BOTH LOWER EXTREMITIES 05/12/2016 FAMILY HISTORY Problem Relation Age of Onset - Diabetes Mother - Heart Mother - Heart Father - Denies family history of malignancy or thromboembolism. [OTHER] Other Social History Substance Use Topics - Smoking status: Never Smoker - Smokeless tobacco: Never Used - Alcohol use No Prescriptions Prior to Admission: predniSONE (DELTASONE) 2.5 mg tablet Take 2.5 mg by mouth daily before dinner. Disp: Rfl: enoxaparin (LOVENOX) 80 mg/0.8 mL syrg Inject 80 mg subcutaneously q 12 HR. Disp: Rfl: Omeprazole 40 mg capsule Take 40 mg by mouth once daily. Disp: Rfl: predniSONE (DELTASONE) 5 mg tablet Take 5 mg by mouth twice daily. Disp: Rfl: ondansetron orally disintegrating (ZOFRAN ODT) 4 mg disintegrating tablet Take 1 tablet by mouth every 6 hours as needed for Nausea/Vomiting. Disp: 24 tablet Rfl: 0 Past Week at Unknown time hydrochlorothiazide (HYDRODIURIL, ESIDRIX) 25 mg tablet Take 1 tablet by mouth once daily. 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) Disp: Rfl: 10/07/2017 at Unknown time Current hospital medications: enoxaparin 70 mg injection (LOVENOX) 1 mg/kg/dose SUBCUTANEOUS DAILY metoprolol tartrate (short acting) 75 mg tab(s) (LOPRESSOR) 75 mg ORAL q 12 H magnesium sulfate in water 2 g in sterile water 50 ml 2 g INTRAVENOUS ONCE hydroCHLOROthiazide 25 mg tab(s) (HYDRODIURIL, ESIDRIX) 25 mg ORAL DAILY ondansetron orally disintegrating 4 mg tab(s) (ZOFRAN ODT) 4 mg ORAL q 6 H PRN predniSONE 5 mg tab(s) (DELTASONE) 5 mg ORAL BID PC predniSONE 2.5 mg tab(s) (DELTASONE) 2.5 mg ORAL DAILY wDINNER pantoprazole DR 40 mg tab(s) (PROTONIX) 40 mg ORAL DAILY (6 AM) saliva substitute combo no.9 15 mL (BIOTENE mouthwash) 15 mL MUCOUS MEMBRANE (TOPICAL MOUTH AND THROAT) 5X/DAY benzocaine-menthol 1 Lozenge (CEPACOL) 1 Lozenge MUCOUS MEMBRANE (TOPICAL MOUTH AND THROAT) q 2 H PRN 0.9% NaCl 3-5 mL 3-5 mL INTRAVENOUS q 12 H lactated ringers infusion 100 mL/hr INTRAVENOUS CONTINUOUS morphine 1-2 mg injection 1-2 mg INTRAVENOUS q 4 H PRN guaiFENesin 200 mg oral liquid (ROBITUSSIN) 200 mg ORAL QID Allergies As of Date: 10/08/2017 Allergen Noted Reaction ANSAID [FLURBIPROFEN] 12/22/2010 GI Upset ARTHROTEC 50 [DICLOFENAC-MISOPROS*06/24/2011 GI Upset AUGMENTIN [AMOXICILLIN-POT CLAVUL*08/31/2008 GI Upset DOXYCYCLINE 03/17/2005 GI Upset ERYTHROMYCIN 03/17/2005 GI Upset GRASS POLLEN 02/17/2006 LODINE [ETODOLAC] 03/17/2005 NSAIDS (NON-STEROIDAL ANTI-INFLAM*03/11/2017 Unknown POISON LISA 03/17/2005 VIOXX [ROFECOXIB] 03/17/2005 GI Upset Fully Assessed 10/08/2017 COMPLETE REVIEW OF SYSTEMS: See HPI for pertinent ROS Objective PHYSICAL EXAM: Physical Exam Performed: GENERAL: Alert, no distress, cooperative SKIN: Skin color, texture, turgor normal. No rashes or lesions. HEAD/SINUSES: No significant findings LUNGS: no respiratory distress on RA CARDIAC: tachycardic ABDOMEN: Soft, ND, NT, No R/G/BS, ecchymosis noted over LLQ BP 125/68 Pulse 150 Temp (Src) 99.3 (Temporal Artery) Resp 18 Ht 5' 0 (1.52m) Wt 150 lb (68.0kg) SpO2 96% BMI 29.30 kg/(m2). DATA: Diagnostic tests reviewed for today's visit: Most recent labs and imaging results. CBC, Coags, BMP, Mg, Phos Recent Labs 10/09/17 0630 WBC 15.73* HB 7.8* HCT 25.4* PLT 264 NA 138 K 3.5 CHLOR 105 CO2 24 BUN 32* CREAT 1.55* GLUC 116* CA 8.0* MG 1.4* P 3.6 10/08: WBC 20.7, HGB 9.8, Cr 1.6 Impression/Recommendations 77 yo F with diverticulitis c/b perforation/abscess -clinically benign exam, with improving leukocytosis (15.7 <- 20); abscess/phlegmon ill defined on current imaging -d/w transplant surgeon radiologist, developing abscess is located in a region that would be technically very difficult to drain percutaneously -given benign/improved exam, recommend continuing antibiotics per primary, no current plans for surgical intervention -will monitor exam for surgical needs. If exam changes or patient develops signs of worsening infection, will likely need surgical drainage (transrectal vs laparoscopic drain placement) -d/w Dr. Wiley Emergency General Surgery Service Pager: For questions or concerns Mon-Fri 6a-5p please page [phone]. After 5pm and on Weekends and Holidays, please page [phone] if in ICU or [phone] if on RNF. SIGNATURE: Lina Damico MD PATIENT NAME: Dia Mccullough DATE: October 09, 2017 TIME: 8:59 AM PAGER: [phone] Jose Maria Mittal MD 10/09/2017 2:02 PM Addendum DEPARTMENT OF HOSPITAL MEDICINE PROGRESS NOTE SERVICE DATE: 10/09/2017 SERVICE TIME: 1:33 PM Hospital Medicine/Primary Attending: Jose Maria Mittal MD NIGHT AND WEEKEND COVERAGE: After 7pm please page [phone] CHIEF COMPLAINT: bleeding in left leg SUBJECTIVE: 6 weeks ago she had bowel perforation and was brought in here. She decided not to have surgery and was sent home on 2 weeks of oral abx. 2 weeks later she has hematemesis while on coumadin. She was treated with vit k at [facility] and was sent to hospice [facility]. She stablized and sent home. Then she developed DVT/ PE and was started on sc lovenox 1mg/kg BID (has CKD 3-4). She then developed bleeding and hematoma in left leg. She denies any abdominal pain, nausea or vomiting or black stool. Denies any chest pain, dyspnea or palpitation. OBJECTIVE: PHYSICAL EXAM: BP 113/88 Pulse 99 Temp (Src) 97.3 (Temporal Artery) Resp 18 Ht 5' 0 (1.52m) Wt 150 lb (68.0kg) SpO2 93% BMI 29.30 kg/(m2). GENERAL: Alert, no distress, cooperative, SKIN: Skin color, texture, turgor normal. No rashes or lesions. OROPHARYNX: Lips, mucosa, and tongue normal. Teeth and gums normal. Oropharynx normal. LUNGS: Lungs clear to auscultation, Air entry good, Unlabored breathing. CARDIAC: Normal S1 and S2; no rubs, murmurs, or gallops ABDOMEN: Abdomen soft, non-tender, non-distended, BS normal. Bruise in her belly EXTREMITIES: left leg: wrapped in dressing and Spike wrap. Foot warm with intact sensation. Right foot non bleeding echymosis NEURO: Grossly normal cognition, motor function, and cranial nerves III-XII MEDICATIONS: Current hospital medications: enoxaparin 70 mg injection (LOVENOX) 1 mg/kg/dose SUBCUTANEOUS DAILY metoprolol tartrate (short acting) 75 mg tab(s) (LOPRESSOR) 75 mg ORAL q 12 H hydroCHLOROthiazide 25 mg tab(s) (HYDRODIURIL, ESIDRIX) 25 mg ORAL DAILY ondansetron orally disintegrating 4 mg tab(s) (ZOFRAN ODT) 4 mg ORAL q 6 H PRN predniSONE 5 mg tab(s) (DELTASONE) 5 mg ORAL BID PC predniSONE 2.5 mg tab(s) (DELTASONE) 2.5 mg ORAL DAILY wDINNER pantoprazole DR 40 mg tab(s) (PROTONIX) 40 mg ORAL DAILY (6 AM) saliva substitute combo no.9 15 mL (BIOTENE mouthwash) 15 mL MUCOUS MEMBRANE (TOPICAL MOUTH AND THROAT) 5X/DAY benzocaine-menthol 1 Lozenge (CEPACOL) 1 Lozenge MUCOUS MEMBRANE (TOPICAL MOUTH AND THROAT) q 2 H PRN 0.9% NaCl 3-5 mL 3-5 mL INTRAVENOUS q 12 H lactated ringers infusion 100 mL/hr INTRAVENOUS CONTINUOUS morphine 1-2 mg injection 1-2 mg INTRAVENOUS q 4 H PRN guaiFENesin 200 mg oral liquid (ROBITUSSIN) 200 mg ORAL QID DATA: Diagnostic tests reviewed for today's visit: CBC, Coags, BMP, Mg, Phos Recent Labs 10/09/17 0630 WBC 15.73* HB 7.8* HCT 25.4* PLT 264 NA 138 K 3.5 CHLOR 105 CO2 24 BUN 32* CREAT 1.55* GLUC 116* CA 8.0* MG 1.4* P 3.6 Liver Function, Amylase, AND Lipase Cardiac Enzymes Heme: Recent Labs 10/09/17 0825 10/09/17 0630 ABSRETIC -- 0.095 RITO -- 181.50 FE 29* -- TIBC 186* -- Albumin/Creat Ratio (mg/g) Date Value 11/03/2013 3 Assessment/Plan Patient Active Hospital Problem List: Intra-abdominal abscess (HCC) (10/08/2017) DVT (deep venous thrombosis) (HCC) (01/08/2014) Pulmonary emboli (HCC) (01/30/2014) CKD (chronic kidney disease) stage 3, GFR 30-59 ml/min (11/28/2014) Venous insufficiency (chronic) (peripheral) () Curry disease () Traumatic hematoma of left lower leg (10/08/2017) Leg hematoma, left, initial encounter (10/08/2017) ASSESSMENT: 1. Sigmoid diverticulitis with pervious perforation with 5cm pelvic abscess: minimal symptoms. 2. Bowel perforation 08/24/17: she refused surgery at that time and was treated with abx. Survived. 3. 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 Used to be on coumadin which was stopped when she developed hematemesis. Since her last PE/PE, was placed on lovenox 1mg/kg BID 4. Left leg bleeding/ hematoma: probably due to higher dose of lovenox for CKD 3-4 Currently wrapped with dressing and SPIKE 5. Episode of hematemesis 5 weeks ago while on coumadin- managed with vitk. No scope done. 6. SVT this am: better with metoprolol. 7. Anemia: most likely due to bleed.? CKD and recent conditions contributing. 8. Addision's disease: 9. CKD3 PLAN: She is willing to get abx and drain for intraabdominal abscess. Still does not want surgery. Start meropenem. Consult ID and general surgery. Will need drainage of abscess. Continue to apply spike wrap pressure dressing to left leg. Continue lovenox at 1mg/kg daily dose. Consider eventual transition to coumadin (NOAC too expensive per patient) or IVC filter. Will get opinion of furrier apprentice- has seen Dr Irizarry in the past. Check ferritin, retic, vitamin b12 and folate. This was discussed with patient and later with son on the phone She is DNRCCA and no mechanical ventilation for respiratory distress either. VTE Prophylaxis: Patient is already anti-coagulated. Disposition: Home with [facility] Plan of care discussed with: Patient, Family/Other: son and RN SIGNATURE: Jose Maria Mittal MD PATIENT NAME: Dia Mccullough DATE: October 09, 2017 TIME: 1:33 PM PAGER/CONTACT #: [phone] Previous Version Shawna Henning MD 10/09/2017 2:43 PM Signed Patient seen and Heme issues discussed with patient and son. Consult dictated. 1. Patient doing well on Lovenox. 2. Keep current dose. 70 mg daily. 3. Hemostatic decisions will be based on surgeons decision in regard to surgery. Will facilitate the surgeons decision. Will follow. MD Philip Cody CHAPLAIN, Chaplain 10/09/2017 2:59 PM Signed SPIRITUALCARE Spiritual Care Visit- Brief Note Name: Dia Mccullough Date: October 09, 2017 Notes: As pile driving setter, made intro visit with pt. Listened empathetically to pt's concerns. Reminded pt of 06/12 SC. Paint Line Production Supervisor Signature: CHAPLAIN Wilbert To contact the [facility] Care Department: Please call [phone] or Page the On-Call Paint Line Production Supervisor at pager [phone] Thank you for the opportunity to be of service. This is an electronically created document. IF PRINTED, PLEASE DO NOT REMOVE FROM THE CHART OR MODIFY PRINTED COPY. Zhane Mcgovern III, MD 10/09/2017 8:19 PM Signed CONSULT: INFECTIOUS DISEASE SERVICE SERVICE DATE: 10/09/2017 SERVICE TIME: 4:02PM REASON FOR CONSULT: Abdominal abscess REQUESTING PHYSICIAN: Dr. Damon PRIMARY CARE PHYSICIAN: Mlalorie Wheeler MD Subjective . 77 year old female who was in [facility] in August for perforated bowel Had refused surgery and actually went home on hospice and on oral antibiotics. Has been receiving blood thinner. Recently had hematoma of the left leg. Per [facility], she was brought back to [place] ED for abdominal pain. There, it was found that she had a 5cm intra-abdominal abscess. She was transferred here for evaluaton for percutaneous drain which has been ordered. She actually denies any abdominal pain to me. Denies any fevers or chills. Currently on meropenem ALLERGIES Allergen Reactions - Ansaid [Flurbiprofe* GI Upset Ulcer - Arthrotec 50 [Diclo* GI Upset Cytotec upset stomach more than just the voltaren by itself - Augmentin [Amoxicil* GI Upset tolerates cephalexin - Doxycycline GI Upset - Erythromycin GI Upset - Grass Pollen - Lodine [Etodolac] - Nsaids (Non-Steroid* Unknown - Poison Lisa - Vioxx [Rofecoxib] GI Upset She also reports intolerance to flagyl. 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 - Inflammatory polyarthropathy - Normocytic anemia - PE (pulmonary thromboembolism) (HCC) 01/05/14 Bilat, extensive - Pulmonary embolism without acute cor pulmonale - Pure hypercholesterolemia - Sicca syndrome - Unspecified essential hypertension - Unspecified gastritis and gastroduodenitis without mention of hemorrhage - Urinary tract infection, site not specified - Venous insufficiency (chronic) (peripheral) - Vitamin D deficiency PAST SURGICAL HISTORY Procedure Laterality Date - CATARACT EXTRACTION HX Right - PARTIAL HIP REPLACEMENT Right 04/2013 - PAST SURGICAL HISTORY OF hernia repair - PAST SURGICAL HISTORY OF 11/2012 L3-L4 laminectomy and fusion - PAST SURGICAL HISTORY OF 11/2012 Back fusion surgery - TOTAL HIP REPLACEMENT 05/10/2013 right hip replacement - VENOUS DUPLEX BOTH LOWER EXTREMITIES 05/12/2016 FAMILY HISTORY Problem Relation Age of Onset - Diabetes Mother - Heart Mother - Heart Father - Denies family history of malignancy or thromboembolism. [OTHER] Other Social History Substance Use Topics - Smoking status: Never Smoker - Smokeless tobacco: Never Used - Alcohol use No Prescriptions Prior to Admission: predniSONE (DELTASONE) 2.5 mg tablet Take 2.5 mg by mouth daily before dinner. Disp: Rfl: enoxaparin (LOVENOX) 80 mg/0.8 mL syrg Inject 80 mg subcutaneously q 12 HR. Disp: Rfl: Omeprazole 40 mg capsule Take 40 mg by mouth once daily. Disp: Rfl: predniSONE (DELTASONE) 5 mg tablet Take 5 mg by mouth twice daily. Disp: Rfl: ondansetron orally disintegrating (ZOFRAN ODT) 4 mg disintegrating tablet Take 1 tablet by mouth every 6 hours as needed for Nausea/Vomiting. Disp: 24 tablet Rfl: 0 Past Week at Unknown time hydrochlorothiazide (HYDRODIURIL, ESIDRIX) 25 mg tablet Take 1 tablet by mouth once daily. 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) Disp: Rfl: 10/07/2017 at Unknown time Current hospital medications: enoxaparin 70 mg injection (LOVENOX) 1 mg/kg/dose SUBCUTANEOUS DAILY metoprolol tartrate (short acting) 75 mg tab(s) (LOPRESSOR) 75 mg ORAL q 12 H meropenem 1 g in NaCl 0.9% 100 mL MB+ (MERREM) 1 g INTRAVENOUS q 12 H hydroCHLOROthiazide 25 mg tab(s) (HYDRODIURIL, ESIDRIX) 25 mg ORAL DAILY ondansetron orally disintegrating 4 mg tab(s) (ZOFRAN ODT) 4 mg ORAL q 6 H PRN predniSONE 5 mg tab(s) (DELTASONE) 5 mg ORAL BID PC predniSONE 2.5 mg tab(s) (DELTASONE) 2.5 mg ORAL DAILY wDINNER pantoprazole DR 40 mg tab(s) (PROTONIX) 40 mg ORAL DAILY (6 AM) saliva substitute combo no.9 15 mL (BIOTENE mouthwash) 15 mL MUCOUS MEMBRANE (TOPICAL MOUTH AND THROAT) 5X/DAY benzocaine-menthol 1 Lozenge (CEPACOL) 1 Lozenge MUCOUS MEMBRANE (TOPICAL MOUTH AND THROAT) q 2 H PRN 0.9% NaCl 3-5 mL 3-5 mL INTRAVENOUS q 12 H lactated ringers infusion 100 mL/hr INTRAVENOUS CONTINUOUS morphine 1-2 mg injection 1-2 mg INTRAVENOUS q 4 H PRN guaiFENesin 200 mg oral liquid (ROBITUSSIN) 200 mg ORAL QID Allergies As of Date: 10/08/2017 Allergen Noted Reaction ANSAID [FLURBIPROFEN] 12/22/2010 GI Upset ARTHROTEC 50 [DICLOFENAC-MISOPROS*06/24/2011 GI Upset AUGMENTIN [AMOXICILLIN-POT CLAVUL*08/31/2008 GI Upset DOXYCYCLINE 03/17/2005 GI Upset ERYTHROMYCIN 03/17/2005 GI Upset GRASS POLLEN 02/17/2006 LODINE [ETODOLAC] 03/17/2005 NSAIDS (NON-STEROIDAL ANTI-INFLAM*03/11/2017 Unknown POISON LISA 03/17/2005 VIOXX [ROFECOXIB] 03/17/2005 GI Upset Fully Assessed 10/08/2017 COMPLETE REVIEW OF SYSTEMS: GENERAL: No weight loss, malaise or fevers HEENT: Negative for frequent or significant headaches, No changes in hearing or vision, no nose bleeds or other nasal problems RESPIRATORY: Negative for cough, hemoptysis, wheezing, COPD, dyspnea or shortness of breath CARDIOVASCULAR: no chest pain or palpitations GI: No nausea, vomiting, or diarrhea and denies any abdominal pain MUSCULOSKELETAL: Negative for joint pain or swelling, back pain or muscle pain SKIN: Negative for lesions, rash, and itching HEMATOLOGY/LYMPHOLOGY: Bruising/hematoma of left leg. NEURO: No focal weakness or numbness Objective PHYSICAL EXAM: Physical Exam Performed: GENERAL: Alert, no distress, cooperative SKIN: Skin color, texture, turgor normal. No rashes or lesions. OROPHARYNX: Lips, mucosa, and tongue normal. Teeth and gums normal. Oropharynx normal. LUNGS: Lungs clear to auscultation, Good diaphragmatic excursion CARDIAC: Normal S1 and S2; no rubs, murmurs, or gallops ABDOMEN: bowel sounds active. Abdomen soft. Very mild tenderness in right lower quadrant. EXTREMITIES: Left leg hematoma site bandaged. LYMPH: No cervical or axillary adenopathy BP 113/58 Pulse 87 Temp (Src) 97 (Temporal Artery) Resp 18 Ht 5' 0 (1.52m) Wt 150 lb (68.0kg) SpO2 98% BMI 29.30 kg/(m2). DATA: Diagnostic tests reviewed for today's visit: CT report from outside hospital reviewed Hemoglobin (g/dL) Date Value 08/05/2015 12.4 HGB (g/dL) Date Value 10/09/2017 7.8 Hematocrit (%) Date Value 10/09/2017 25.4 WBC (thou/cmm) Date Value 10/09/2017 15.73 Estimated Creatinine Clearance: 25.7 mL/min (A) (based on SCr of 1.55 mg/dL (H)). Impression/Recommendations 1) Intra-abdominal abscess 2) Sepsis with leukocytosis and prior tachycardia PLAN: 1) Continue meropenem 2) F/u surgical recommendations SIGNATURE: Zhane Mcgovern III, MD PATIENT NAME: Dia Mccullough DATE: October 09, 2017 TIME: 4:02 PM PAGER: [phone] Philip Koenig MD 10/10/2017 7:10 AM Attested Attestation signed by Khai Lira at 10/10/2017 12:36 PM I personally saw and examined the patient. I reviewed the resident's note. I agree with the resident's assessment and plan unless otherwise noted below. We will review imaging with interventional radiology to see if this is amenable to percutaneous or transrectal drainage to progress her forward. Currently looks nontoxic and very comfortable. She does not want to pursue surgery. Emergency General Surgery Progress Note SERVICE DATE: 10/10/2017 SUBJECTIVE: No acute events. Abdominal pain has nearly improved completely. She is having bowel function. She was started on regular diet last night. Tolerating diet DIET REGULAR OBJECTIVE: Vitals: Temp (24hrs), Av.2 ?C (97.2 ?F), Min:36.1 ?C (97 ?F), Max:36.3 ?C (97.3 ?F) BP 93/54 Pulse 89 Temp 36.2 ?C (97.2 ?F) (Temporal Artery) Resp 18 Ht 152.4 cm (5') Wt 68 kg (150 lb) SpO2 99% BMI 29.29 kg/m? O2 Therapy: Room Air IANDO: Date 10/09/17699 - 10/10/1765810/10/17699 - 10/11/17 0659 Shift 1120-1305 6141-6588 3619-3961 24 Hour Total 6659-0919 3224-3536 6734-0585 24 Hour Total I N T A K E PO 240 240 480 PO 240 240 480 IV 1000 1000 LR 1000 1000 Shift Total 3635 789 8006 O U T P U T Urine 4 2 6 Urine Not Saved 4 2 6 Shift Total 4 2 6 Weight (kg) 68 68 68 68 68 68 68 68 MEDICATIONS Current Facility-Administered Medications: HYDROcodone 5 mg - acetaminophen 325 mg tablet (NORCO) 1 tablet ORAL q 4 H PRN enoxaparin 70 mg injection (LOVENOX) 1 mg/kg/dose SUBCUTANEOUS DAILY metoprolol tartrate (short acting) 75 mg tab(s) (LOPRESSOR) 75 mg ORAL q 12 H meropenem 1 g in NaCl 0.9% 100 mL MB+ (MERREM) 1 g INTRAVENOUS q 12 H hydroCHLOROthiazide 25 mg tab(s) (HYDRODIURIL, ESIDRIX) 25 mg ORAL DAILY ondansetron orally disintegrating 4 mg tab(s) (ZOFRAN ODT) 4 mg ORAL q 6 H PRN predniSONE 5 mg tab(s) (DELTASONE) 5 mg ORAL BID PC predniSONE 2.5 mg tab(s) (DELTASONE) 2.5 mg ORAL DAILY wDINNER pantoprazole DR 40 mg tab(s) (PROTONIX) 40 mg ORAL DAILY (6 AM) saliva substitute combo no.9 15 mL (BIOTENE mouthwash) 15 mL MUCOUS MEMBRANE (TOPICAL MOUTH AND THROAT) 5X/DAY benzocaine-menthol 1 Lozenge (CEPACOL) 1 Lozenge MUCOUS MEMBRANE (TOPICAL MOUTH AND THROAT) q 2 H PRN 0.9% NaCl 3-5 mL 3-5 mL INTRAVENOUS q 12 H lactated ringers infusion 100 mL/hr INTRAVENOUS CONTINUOUS guaiFENesin 200 mg oral liquid (ROBITUSSIN) 200 mg ORAL QID Labs: Recent Labs 10/10/17 0357 10/09/17 0630 NA 142 138 K 3.3* 3.5 CHLOR 108* 105 CO2 28 24 BUN 34* 32* CREAT 1.63* 1.55* GLUC 97 116* ANION 9 13 CA 7.6* 8.0* MG -- 1.4* P -- 3.6 ALB 1.7* -- AST 5* -- ALT 12 -- ALKPHOS 40* -- TBILI 0.2 -- WBC -- 15.73* HB -- 7.8* HCT -- 25.4* PLT -- 264 Exam: GENERAL: No distress, Alert NEURO: AANDOx3, CN II-XII grossly intact HEENT: normocephalic, atraumatic LUNGS: Unlabored breathing CARDIAC: Regular rate and rhythm as above ABDOMEN: Soft, minimally tender LLQ, non-distended. No rebound or guarding. EXTREMITIES: MONGE, No deformities, No edema SKIN: Skin color, texture, turgor normal, No rashes or lesions ASSESSMENT AND PLAN: Active Hospital Problems Diagnosis Date Noted - Intra-abdominal abscess (HCC) 10/08/2017 - Traumatic hematoma of left lower leg 10/08/2017 - Leg hematoma, left, initial encounter 10/08/2017 - Baltazar disease Chronic - Venous insufficiency (chronic) (peripheral) - CKD (chronic kidney disease) stage 3, GFR 30-59 ml/min 11/28/2014 - Pulmonary emboli (HCC) 01/30/2014 Overview Note: clinically resolved - DVT (deep venous thrombosis) ([facility]) 01/08/2014 Overview Note: recurrent 77 year old female with diverticulitis and presacral fluid/gas collection. - diet as tolerated. Recommend holding diet if having pain. - WBC pending this AM. 15 yesterday. Has been downtrending. - On meropenem per primary. - fluid collection would be difficult to drain per radiology. - if she worsens, she may need to have a drain placed in fluid collection. - She is improving with conservative management. There is no indication for surgical intervention at this time. - she will need to have an outpatient colonoscopy in 6-8 weeks after discharge. SIGNATURE: Philip Koenig MD PATIENT NAME: Dia Mccullough DATE: October 10, 2017 TIME: 7:05 AM Pager: [phone] Jose Maria Mittal MD 10/10/2017 11:50 AM Signed DEPARTMENT OF HOSPITAL MEDICINE PROGRESS NOTE SERVICE DATE: 10/10/2017 SERVICE TIME: 11:27 AM Hospital Medicine/Primary Attending: Jose Maria Mittal MD NIGHT AND WEEKEND COVERAGE: After 7pm please page [phone] CHIEF COMPLAINT: left leg hematoma. SUBJECTIVE: No pain in abdomen. No nausea or vomiting. Eating well. No pain in left leg OBJECTIVE: PHYSICAL EXAM: BP 98/56 Pulse 87 Temp (Src) 97.5 (Temporal Artery) Resp 18 Ht 5' 0 (1.52m) Wt 150 lb (68.0kg) SpO2 100% BMI 29.30 kg/(m2). GENERAL: Alert, no distress, cooperative, SKIN: Skin color, texture, turgor normal. No rashes or lesions. OROPHARYNX: Lips, mucosa, and tongue normal. Teeth and gums normal. Oropharynx normal. LUNGS: Lungs clear to auscultation, Air entry good, Unlabored breathing. CARDIAC: Normal S1 and S2; no rubs, murmurs, or gallops ABDOMEN: Abdomen soft, non-tender, non-distended, BS normal EXTREMITIES: left leg- dressing opened. Large hematoma in left lower leg- no active bleed. No evidence of infection. Foot warm with intact sensation. NEURO: Grossly normal cognition, motor function, and cranial nerves III-XII MEDICATIONS: Current hospital medications: HYDROcodone 5 mg - acetaminophen 325 mg tablet (NORCO) 1 tablet ORAL q 4 H PRN polyethylene glycol 3350 17 g packet (MIRALAX, GLYCOLAX) 17 g ORAL DAILY enoxaparin 70 mg injection (LOVENOX) 1 mg/kg/dose SUBCUTANEOUS DAILY metoprolol tartrate (short acting) 75 mg tab(s) (LOPRESSOR) 75 mg ORAL q 12 H meropenem 1 g in NaCl 0.9% 100 mL MB+ (MERREM) 1 g INTRAVENOUS q 12 H hydroCHLOROthiazide 25 mg tab(s) (HYDRODIURIL, ESIDRIX) 25 mg ORAL DAILY ondansetron orally disintegrating 4 mg tab(s) (ZOFRAN ODT) 4 mg ORAL q 6 H PRN predniSONE 5 mg tab(s) (DELTASONE) 5 mg ORAL BID PC predniSONE 2.5 mg tab(s) (DELTASONE) 2.5 mg ORAL DAILY wDINNER pantoprazole DR 40 mg tab(s) (PROTONIX) 40 mg ORAL DAILY (6 AM) saliva substitute combo no.9 15 mL (BIOTENE mouthwash) 15 mL MUCOUS MEMBRANE (TOPICAL MOUTH AND THROAT) 5X/DAY benzocaine-menthol 1 Lozenge (CEPACOL) 1 Lozenge MUCOUS MEMBRANE (TOPICAL MOUTH AND THROAT) q 2 H PRN 0.9% NaCl 3-5 mL 3-5 mL INTRAVENOUS q 12 H lactated ringers infusion 100 mL/hr INTRAVENOUS CONTINUOUS guaiFENesin 200 mg oral liquid (ROBITUSSIN) 200 mg ORAL QID DATA: Diagnostic tests reviewed for today's visit: CBC, Coags, BMP, Mg, Phos Recent Labs 10/10/17 0830 10/10/17 0357 10/09/17 0630 WBC 8.61 -- 15.73* HB 6.1* -- 7.8* HCT 19.6* -- 25.4* PLT 195 -- 264 NA -- 142 138 K -- 3.3* 3.5 CHLOR -- 108* 105 CO2 -- 28 24 BUN -- 34* 32* CREAT -- 1.63* 1.55* GLUC -- 97 116* CA -- 7.6* 8.0* MG -- -- 1.4* P -- -- 3.6 Liver Function, Amylase, AND Lipase Recent Labs 10/10/17 0357 TPROT 4.3* ALB 1.7* ALT 12 AST 5* ALKPHOS 40* TBILI 0.2 Cardiac Enzymes Heme: Recent Labs 10/09/17 1530 ABSRETIC 0.081 RITO 176.00 FE 14* TIBC 182* Albumin/Creat Ratio (mg/g) Date Value 11/03/2013 3 Assessment/Plan Patient Active Hospital Problem List: Intra-abdominal abscess (HCC) (10/08/2017) DVT (deep venous thrombosis) (HCC) (01/08/2014) Pulmonary emboli (HCC) (01/30/2014) CKD (chronic kidney disease) stage 3, GFR 30-59 ml/min (11/28/2014) Venous insufficiency (chronic) (peripheral) () Curry disease () Traumatic hematoma of left lower leg (10/08/2017) Leg hematoma, left, initial encounter (10/08/2017) ASSESSMENT: 1. Sigmoid diverticulitis with with 5cm pelvic abscess: minimal symptoms. On Abx. Per surgeon who spoke with IR, difficult to drain percutaneously. Plan is to continue abx for now. If worse, drain surgically -transrectal or laparoscopically placed drain (if patient agrees). ? 2. Bowel perforation 08/24/17: she refused surgery at that time and was treated with abx. Survived. ? 3. 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 Used to be on coumadin which was stopped when she developed hematemesis. Since her last PE/PE, was placed on lovenox 1mg/kg BID- dose decreased to 1mg/kg daily. ? 4. Left leg bleeding/ hematoma: probably due to higher dose of lovenox for CKD 3-4 Currently wrapped with dressing and SPIKE. ? 5. Episode of hematemesis 5 weeks ago while on coumadin- managed with vitk. No scope done. ? 6. SVT this am: better with metoprolol. ? 7. Severe Anemia: due to bleed.? CKD and recent conditions contributing. No evidence of iron def. ? 8. Addision's disease: ? 9. CKD3 PLAN: Continue abx. Monitor Transfuse 1 unit of PRBC. Monitor hb Elevate left leg. Discussed with ortho regarding hematoma- mild compression dressing, leg elevation and NO evacuation. VTE Prophylaxis: Patient is already anti-coagulated. Disposition: Home Plan of care discussed with: Patient SIGNATURE: Jose Maria Mittal MD PATIENT NAME: Dia Mccullough DATE: October 10, 2017 TIME: 11:27 AM PAGER/CONTACT #: [phone] Zhane Mcgovern III, MD 10/10/2017 2:52 PM Signed CONSULT PROGRESS NOTE SERVICE DATE: 10/10/2017 SERVICE TIME: 1:30PM CONSULTING SERVICE: INFECTIOUS DISEASE Subjective INTERVAL HPI: F/u presacral abscess Surgery notes reviewed. Per son and RN- plan updated so that now patient will be getting CT in am and reassessing if drain possible. She feels ok. Has some pressure in the abdomen but she thinks that this is because she has to move her bowels No fevers or chills. Current hospital medications: HYDROcodone 5 mg - acetaminophen 325 mg tablet (NORCO) 1 tablet ORAL q 4 H PRN polyethylene glycol 3350 17 g packet (MIRALAX, GLYCOLAX) 17 g ORAL DAILY metoprolol tartrate (short acting) 25 mg tab(s) (LOPRESSOR) 25 mg ORAL q 12 H acetaminophen 650 mg tab(s) (TYLENOL) 650 mg ORAL q 6 H PRN enoxaparin 70 mg injection (LOVENOX) 1 mg/kg/dose SUBCUTANEOUS DAILY meropenem 1 g in NaCl 0.9% 100 mL MB+ (MERREM) 1 g INTRAVENOUS q 12 H ondansetron orally disintegrating 4 mg tab(s) (ZOFRAN ODT) 4 mg ORAL q 6 H PRN predniSONE 5 mg tab(s) (DELTASONE) 5 mg ORAL BID PC predniSONE 2.5 mg tab(s) (DELTASONE) 2.5 mg ORAL DAILY wDINNER pantoprazole DR 40 mg tab(s) (PROTONIX) 40 mg ORAL DAILY (6 AM) saliva substitute combo no.9 15 mL (BIOTENE mouthwash) 15 mL MUCOUS MEMBRANE (TOPICAL MOUTH AND THROAT) 5X/DAY benzocaine-menthol 1 Lozenge (CEPACOL) 1 Lozenge MUCOUS MEMBRANE (TOPICAL MOUTH AND THROAT) q 2 H PRN 0.9% NaCl 3-5 mL 3-5 mL INTRAVENOUS q 12 H lactated ringers infusion 100 mL/hr INTRAVENOUS CONTINUOUS guaiFENesin 200 mg oral liquid (ROBITUSSIN) 200 mg ORAL QID Objective PHYSICAL EXAM: Physical Exam Performed: General: NAD Abdomen: soft, nontender. Bowel sounds active Extremities: Left leg hematoma bandaged. BP 101/57 Pulse 101 Temp (Src) 98.2 (Temporal Artery) Resp 16 Ht 5' 0 (1.52m) Wt 150 lb (68.0kg) SpO2 100% BMI 29.30 kg/(m2). DATA: Diagnostic tests reviewed for today's visit: WBC Date Value Ref Range Status 10/10/2017 8.61 3.98 - 10.04 thou/cmm Final Impression/Recommendations 1) Intra-abdominal abscess- leukocytosis resolved with meropenem. Continue meropenem. Will follow-up tomorrow morning's CT scan- if drain placed then continue meropenem and narrow based on culture. If no drain placed then would change to oral cefdinir plus clindamycin with plan to treat for 2-3 weeks. SIGNATURE: Zhane Mcgovern III, MD PATIENT NAME: Dia Mccullough DATE: October 10, 2017 TIME: 2:48 PM PAGER: [phone] Teetee Mendez, RN, RN 10/10/2017 10:04 PM Addendum [facility] paged to notify that the patient is requesting something for anxiety. Ativan 0.25 mg ordered once by AMMY Figueroa. AMMY Figueroa of [facility] notified that the patient received half of the dose of meropenem and then refused the other half related to GI upset. Previous Version Kaycee Figueroa APRN.AMMY 10/11/2017 4:00 AM Signed IM [facility] NIGHT TEAM Called by general surgery resident regarding possible per drain in AM after ct complete. She discussed discontinuing lovenox and adding heparin gtt instead overnight. After procedure patient can be placed back on therapeutic lovenox. Discussed change with JANET. Kaycee Figueroa ANESTHESIOLOGIST PHYSICIAN 187 Shauna Pulido MD 10/11/2017 6:43 AM Attested Attestation signed by Khai Lira at 10/11/2017 1:39 PM I personally saw and examined the patient. I reviewed the resident's note. I agree with the resident's assessment and plan unless otherwise noted below. Discussed at length today the utility of again trying to have radiology assess for possible IR drainage as this may help progress her healing along. She did have several reservations but I went over all the details with her and her family member. They do want to proceed with at least repeat imaging and possible drainage today. Emergency General Surgery Progress Note SERVICE DATE: 10/11/2017 SUBJECTIVE: Patient denies abdominal pain, nausea and vomiting. Her main complaint is her LLE. She states that she has a Hematoma and that she cannot walk. She denies fevers, chills, chest pain, and shortness of breath. Tolerating diet DIET NPO OBJECTIVE: Vitals: Temp (24hrs), Av.6 ?C (97.8 ?F), Min:36.1 ?C (97 ?F), Max:36.8 ?C (98.2 ?F) BP 136/75 Pulse 92 Temp 36.8 ?C (98.2 ?F) (Oral) Resp 18 Ht 152.4 cm (5') Wt 70.7 kg (155 lb 13.8 oz) SpO2 99% BMI 30.44 kg/m? O2 Therapy: Room Air IANDO: Date 10/10/17 07 - 10/11/17 0659 10/11/17 07 - 10/12/17 0659 Shift 4376-3503 8297-3757 8774-3778 24 Hour Total 8339-7169 3066-9133 8898-8463 24 Hour Total I N T A K E PO 240 240 PO 240 240 IV 1000 1000 LR 1000 1000 Blood Products 301 301 PRBC Intake (mL) 300 300 Packed Red Blood Cells Number of Units 1 1 Shift Total 301 1240 1541 O U T P U T Urine 1 2 3 Urine Not Saved 1 2 3 # of BMs Number of BMs 2 x 1 x 3 x Shift Total 1 2 3 Weight (kg) 68 68 70.7 70.7 70.7 70.7 70.7 70.7 MEDICATIONS Current Facility-Administered Medications: heparin iv infusion (STANDARD NOMOGRAM) 25,000 units in NaCl 0.45% 250 mL PREMIX 0-3,000 Units/hr INTRAVENOUS CONTINUOUS And heparin RATE CHANGE bolus 1,000-10,000 Units for subtherapeutic aptt results 1,000-10,000 Units INTRAVENOUS PRN heparin nomogram - NO INITIAL BOLUS OTHER ONCE (heparin bolus) HYDROcodone 5 mg - acetaminophen 325 mg tablet (NORCO) 1 tablet ORAL q 4 H PRN polyethylene glycol 3350 17 g packet (MIRALAX, GLYCOLAX) 17 g ORAL DAILY metoprolol tartrate (short acting) 25 mg tab(s) (LOPRESSOR) 25 mg ORAL q 12 H acetaminophen 650 mg tab(s) (TYLENOL) 650 mg ORAL q 6 H PRN meropenem 1 g in NaCl 0.9% 100 mL MB+ (MERREM) 1 g INTRAVENOUS q 12 H ondansetron orally disintegrating 4 mg tab(s) (ZOFRAN ODT) 4 mg ORAL q 6 H PRN predniSONE 5 mg tab(s) (DELTASONE) 5 mg ORAL BID PC predniSONE 2.5 mg tab(s) (DELTASONE) 2.5 mg ORAL DAILY wDINNER pantoprazole DR 40 mg tab(s) (PROTONIX) 40 mg ORAL DAILY (6 AM) saliva substitute combo no.9 15 mL (BIOTENE mouthwash) 15 mL MUCOUS MEMBRANE (TOPICAL MOUTH AND THROAT) 5X/DAY benzocaine-menthol 1 Lozenge (CEPACOL) 1 Lozenge MUCOUS MEMBRANE (TOPICAL MOUTH AND THROAT) q 2 H PRN 0.9% NaCl 3-5 mL 3-5 mL INTRAVENOUS q 12 H lactated ringers infusion 100 mL/hr INTRAVENOUS CONTINUOUS guaiFENesin 200 mg oral liquid (ROBITUSSIN) 200 mg ORAL QID Labs: Recent Labs 10/11/17 0431 10/10/17 0830 10/10/17 0357 10/09/17 0630 NA 142 -- 142 138 K 4.1 -- 3.3* 3.5 CHLOR 109* -- 108* 105 CO2 29 -- 28 24 BUN 20* -- 34* 32* CREAT 0.94 -- 1.63* 1.55* GLUC 90 -- 97 116* ANION 8 -- 9 13 CA 8.0* -- 7.6* 8.0* MG -- -- -- 1.4* P -- -- -- 3.6 ALB -- -- 1.7* -- AST -- -- 5* -- ALT -- -- 12 -- ALKPHOS -- -- 40* -- TBILI -- -- 0.2 -- WBC 7.98 8.18 8.61 -- 15.73* HB 7.4* 7.4* 6.1* -- 7.8* HCT 23.4* 23.4* 19.6* -- 25.4* PLT 207 211 195 -- 264 INR 0.93 -- -- -- Exam: GENERAL: No distress, Alert NEURO: AANDOx3, CN II-XII grossly intact HEENT: normocephalic, atraumatic LUNGS: Unlabored breathing CARDIAC: Regular rate and rhythm as above ABDOMEN: Soft, Non-tendet, non-distended. No rebound or guarding. EXTREMITIES: LLE with chronic venous skin changes wrapped. Motion and sensation intact SKIN: Skin color, texture, turgor normal, No rashes or lesions ASSESSMENT AND PLAN: Active Hospital Problems Diagnosis Date Noted - Intra-abdominal abscess (HCC) 10/08/2017 - Traumatic hematoma of left lower leg 10/08/2017 - Leg hematoma, left, initial encounter 10/08/2017 - Curry disease Chronic - Venous insufficiency (chronic) (peripheral) - CKD (chronic kidney disease) stage 3, GFR 30-59 ml/min 11/28/2014 - Pulmonary emboli (HCC) 01/30/2014 Overview Note: clinically resolved - DVT (deep venous thrombosis) ([facility]) 01/08/2014 Overview Note: recurrent 77 year old female with diverticulitis and presacral fluid/gas collection. - Patient is currently NPO for possible drain placement. - Patient does not think that she wishes to proceed with placement of a drain into the pre-sacral collection. She would like to move forward with a repeat CT scan though so she can make an informed decision. - Leukocytosis improved - On meropenem per ID. Received only half of last dose. Patient requested to stop based on GI upset. - She is improving with conservative management. - she will need to have an outpatient colonoscopy in 6-8 weeks after discharge. Shauna Pulido MD General Surgery PGY-4 October 11, 2017 6:41 AM [facility] #: Pager: [phone] Previous Version Antione Irizarry MD 10/11/2017 11:43 AM Signed CONSULT PROGRESS NOTE SERVICE DATE: 10/11/2017 SERVICE TIME: 8 AM CONSULTING SERVICE: HemOnc Subjective INTERVAL HPI: Patient denies abdominal pain. No dyspnea. Some pain in left leg while standing. On heparin drip Current hospital medications: heparin iv infusion (STANDARD NOMOGRAM) 25,000 units in NaCl 0.45% 250 mL PREMIX 0-3,000 Units/hr INTRAVENOUS CONTINUOUS heparin RATE CHANGE bolus 1,000-10,000 Units for subtherapeutic aptt results 1,000-10,000 Units INTRAVENOUS PRN HYDROcodone 5 mg - acetaminophen 325 mg tablet (NORCO) 1 tablet ORAL q 4 H PRN polyethylene glycol 3350 17 g packet (MIRALAX, GLYCOLAX) 17 g ORAL DAILY metoprolol tartrate (short acting) 25 mg tab(s) (LOPRESSOR) 25 mg ORAL q 12 H acetaminophen 650 mg tab(s) (TYLENOL) 650 mg ORAL q 6 H PRN meropenem 1 g in NaCl 0.9% 100 mL MB+ (MERREM) 1 g INTRAVENOUS q 12 H ondansetron orally disintegrating 4 mg tab(s) (ZOFRAN ODT) 4 mg ORAL q 6 H PRN predniSONE 5 mg tab(s) (DELTASONE) 5 mg ORAL BID PC predniSONE 2.5 mg tab(s) (DELTASONE) 2.5 mg ORAL DAILY wDINNER pantoprazole DR 40 mg tab(s) (PROTONIX) 40 mg ORAL DAILY (6 AM) saliva substitute combo no.9 15 mL (BIOTENE mouthwash) 15 mL MUCOUS MEMBRANE (TOPICAL MOUTH AND THROAT) 5X/DAY benzocaine-menthol 1 Lozenge (CEPACOL) 1 Lozenge MUCOUS MEMBRANE (TOPICAL MOUTH AND THROAT) q 2 H PRN 0.9% NaCl 3-5 mL 3-5 mL INTRAVENOUS q 12 H lactated ringers infusion 100 mL/hr INTRAVENOUS CONTINUOUS guaiFENesin 200 mg oral liquid (ROBITUSSIN) 200 mg ORAL QID Objective PHYSICAL EXAM: Physical Exam Performed: BP 138/63 Pulse 96 Temp (Src) 98.2 (Temporal Artery) Resp 18 Ht 5' 0 (1.52m) Wt 155 lb 13.8 oz (70.7kg) SpO2 99% BMI 30.44 kg/(m2). GENERAL: Alert, no distress, cooperative, SKIN: Scattered bruising. HEENT: Anicteric. LUNGS: Lungs clear to auscultation. Unlabored breathing. CARDIAC: Normal S1 and S2; no rubs, murmurs, or gallops ABDOMEN: Abdomen soft, non-tender, non-distended, BS normal EXTREMITIES: left leg- wrapped in spike. + hematoma. NEURO: No focal deficit. DATA: Diagnostic tests reviewed for today's visit: CBC: Recent Labs 10/11/1743010/10/17 0830 10/09/17 0630 WBC 7.98 8.18 8.61 15.73* HB 7.4* 7.4* 6.1* 7.8* HCT 23.4* 23.4* 19.6* 25.4* PLT 207 211 195 264 MCV 100.0* 99.6* 104.3* 105.4* COAG: Recent Labs 10/11/17430 APTT 23.4 INR 0.93 BMP: Recent Labs 10/11/171 10/10/17 0357 10/09/17 0630 GLUC 90 97 116* NA 142 142 138 K 4.1 3.3* 3.5 CHLOR 109* 108* 105 CO2 29 28 24 ANION 8 9 13 BUN 20* 34* 32* CREAT 0.94 1.63* 1.55* CHEM: Recent Labs 10/11/17 0431 10/10/17 0357 10/09/17 0630 ALB -- 1.7* -- TPROT -- 4.3* -- CA 8.0* 7.6* 8.0* MG -- -- 1.4* Impression/Recommendations 1. Sigmoid diverticulitis with 5cm pelvic abscess: - possible drain placement? Await a repeat CT scan to make further decision. - Continue ABX. ? 2. Bowel perforation 08/24/17:?she refused surgery at that time and was treated with ABX. ? 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 Used to be on coumadin which was stopped when she developed hematemesis in 08/2017. Developed DVT/PE while off Coumadin. Was placed on lovenox 1mg/kg BID- dose decreased to 1mg/kg daily. Now on iv heparin for possible procedure. - Antiphospholipid ab pending. - Once patient is stable, consider switching back to Coumadin. She is followed by PCP. She could not afford NOAC. ? 4. Severe Anemia: likey due to bleed. Stable now. SIGNATURE: Antione Irizarry MD PATIENT NAME: Dia Mccullough DATE: October 11, 2017 TIME: 8 AM PAGER: [phone] Jose Maria Mittal MD 10/11/2017 9:44 AM Addendum DEPARTMENT OF HOSPITAL MEDICINE PROGRESS NOTE SERVICE DATE: 10/11/2017 SERVICE TIME: 9:22 AM Hospital Medicine/Primary Attending: Jose Maria Mittal MD NIGHT AND WEEKEND COVERAGE: After 7pm please page [phone] CHIEF COMPLAINT: left leg hematoma. Intraabdominal abscess. SUBJECTIVE: no abdominal pain. Had 3 soft BM. No nausea. Pain in left leg when standing otherwise none while laying down. OBJECTIVE: PHYSICAL EXAM: BP 138/63 Pulse 96 Temp (Src) 98.2 (Temporal Artery) Resp 18 Ht 5' 0 (1.52m) Wt 155 lb 13.8 oz (70.7kg) SpO2 99% BMI 30.44 kg/(m2). GENERAL: Alert, no distress, cooperative, SKIN: Skin color, texture, turgor normal. No rashes or lesions. OROPHARYNX: Lips, mucosa, and tongue normal. Teeth and gums normal. Oropharynx normal. LUNGS: Lungs clear to auscultation, Air entry good, Unlabored breathing. CARDIAC: Normal S1 and S2; no rubs, murmurs, or gallops ABDOMEN: Abdomen soft, non-tender, non-distended, BS normal EXTREMITIES: left leg- wrapped in spike. Opened and examined yesterday- has large hematoma in lower leg anteriorly. Small tearing of skin over the hematoma- no active bleeding. Today foot warm. DP present. NEURO: Grossly normal cognition, motor function, and cranial nerves III-XII MEDICATIONS: Current hospital medications: heparin iv infusion (STANDARD NOMOGRAM) 25,000 units in NaCl 0.45% 250 mL PREMIX 0-3,000 Units/hr INTRAVENOUS CONTINUOUS heparin RATE CHANGE bolus 1,000-10,000 Units for subtherapeutic aptt results 1,000-10,000 Units INTRAVENOUS PRN HYDROcodone 5 mg - acetaminophen 325 mg tablet (NORCO) 1 tablet ORAL q 4 H PRN polyethylene glycol 3350 17 g packet (MIRALAX, GLYCOLAX) 17 g ORAL DAILY metoprolol tartrate (short acting) 25 mg tab(s) (LOPRESSOR) 25 mg ORAL q 12 H acetaminophen 650 mg tab(s) (TYLENOL) 650 mg ORAL q 6 H PRN meropenem 1 g in NaCl 0.9% 100 mL MB+ (MERREM) 1 g INTRAVENOUS q 12 H ondansetron orally disintegrating 4 mg tab(s) (ZOFRAN ODT) 4 mg ORAL q 6 H PRN predniSONE 5 mg tab(s) (DELTASONE) 5 mg ORAL BID PC predniSONE 2.5 mg tab(s) (DELTASONE) 2.5 mg ORAL DAILY wDINNER pantoprazole DR 40 mg tab(s) (PROTONIX) 40 mg ORAL DAILY (6 AM) saliva substitute combo no.9 15 mL (BIOTENE mouthwash) 15 mL MUCOUS MEMBRANE (TOPICAL MOUTH AND THROAT) 5X/DAY benzocaine-menthol 1 Lozenge (CEPACOL) 1 Lozenge MUCOUS MEMBRANE (TOPICAL MOUTH AND THROAT) q 2 H PRN 0.9% NaCl 3-5 mL 3-5 mL INTRAVENOUS q 12 H lactated ringers infusion 100 mL/hr INTRAVENOUS CONTINUOUS guaiFENesin 200 mg oral liquid (ROBITUSSIN) 200 mg ORAL QID DATA: Diagnostic tests reviewed for today's visit: CBC, Coags, BMP, Mg, Phos Recent Labs 10/11/17 0431 10/10/17 0830 10/10/17 0357 10/09/17 0630 WBC 7.98 8.18 8.61 -- 15.73* HB 7.4* 7.4* 6.1* -- 7.8* HCT 23.4* 23.4* 19.6* -- 25.4* PLT 207 211 195 -- 264 INR 0.93 -- -- -- APTT 23.4 -- -- -- NA 142 -- 142 138 K 4.1 -- 3.3* 3.5 CHLOR 109* -- 108* 105 CO2 29 -- 28 24 BUN 20* -- 34* 32* CREAT 0.94 -- 1.63* 1.55* GLUC 90 -- 97 116* CA 8.0* -- 7.6* 8.0* MG -- -- -- 1.4* P -- -- -- 3.6 Liver Function, Amylase, AND Lipase Recent Labs 10/10/17 0357 TPROT 4.3* ALB 1.7* ALT 12 AST 5* ALKPHOS 40* TBILI 0.2 Cardiac Enzymes Heme: No results for input(s): RETICP, ABSRETIC, LD, RITO, FE, TIBC, TRANSFERSAT in the last 24 hours. Albumin/Creat Ratio (mg/g) Date Value 11/03/2013 3 Assessment/Plan Patient Active Hospital Problem List: Intra-abdominal abscess (HCC) (10/08/2017) DVT (deep venous thrombosis) (HCC) (01/08/2014) Pulmonary emboli (HCC) (01/30/2014) CKD (chronic kidney disease) stage 3, GFR 30-59 ml/min (11/28/2014) Venous insufficiency (chronic) (peripheral) () Curry disease () Traumatic hematoma of left lower leg (10/08/2017) Leg hematoma, left, initial encounter (10/08/2017) ASSESSMENT: 1. Sigmoid diverticulitis with with 5cm pelvic abscess: minimal symptoms. On Abx- meropenem. Per surgeon who spoke with IR, difficult to drain percutaneously. Surgery team has considered to place drain surgically - ?transrectal or laparoscopically placed drain today. But patient is reluctant. I believe plan at this time would be to continue abx for now and follow up with imaging unless she becomes symptomatic- await surgery and ID to round. ? 2. Bowel perforation 08/24/17:?she refused surgery at that time and was treated with abx. Survived. ? 3. 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 Used to be on coumadin which was stopped when she developed hematemesis. Since her last PE/PE few weeks, was placed on lovenox 1mg/kg BID- dose decreased to 1mg/kg daily. Overnight lovenox was switched to iv heparin for possible procedure. Antiphospholipid ab pending. ? 4. Left leg bleeding/ hematoma: probably due to higher dose of lovenox for?CKD 3-4 Currently wrapped with dressing and SPIKE. ? 5. Episode of hematemesis 5 weeks ago while on coumadin-?managed with vitk. No scope done. ? 6. SVT this am: better with metoprolol. ? 7. Severe Anemia: due to bleed.? CKD and recent conditions contributing. No evidence of iron def. ? 8. Addision's disease: ? 9. CKD3 PLAN: Continue abx. Monitor for symptoms- nausea. Await further input from Surgery and ID. May switch back to lovenox if no procedure. Antiphospholipid ab pending- Hem/onc to decide on final anticoagulation treatment (coumadin). Cannot afford NOAC. VTE Prophylaxis: Patient is already anti-coagulated. Disposition: Home Plan of care discussed with: Patient SIGNATURE: Jose Maria Mittal MD PATIENT NAME: Dia Mccullough DATE: October 11, 2017 TIME: 9:22 AM PAGER/CONTACT #: [phone] Previous Version Chaplain Daley Chaplain 10/11/2017 12:05 PM Signed SPIRITUALCARE Spiritual Care Visit- Brief Note Name: Dia Mccullough Date: October 11, 2017 Notes: Per PT has multiple health issues and was scheduled for a test. She looked to be calm, took a prayer and was thankful for the [place] support. Paint Line Production Supervisor Signature: Chaplain Thuy To contact the Spiritual Care Department: Please call [phone] or Page the On-Call Paint Line Production Supervisor at pager [phone] Thank you for the opportunity to be of service. This is an electronically created document. IF PRINTED, PLEASE DO NOT REMOVE FROM THE CHART OR MODIFY PRINTED COPY. Chaplain Daley Chaplain 10/11/2017 12:06 PM Signed Spiritual Care Record ? Anointing/[place] PATIENT NAME: Dia Mccullough DATE: October 11, 2017 NOTE: Patient was anointed by Fr. ireland from [facility] on (date): 10/11/17. Signature: Chaplain Thuy Question? Please contact the Spiritual Care Department for assistance. This is an electronically created document. IF PRINTED, PLEASE DO NOT REMOVE FROM THE CHART OR MODIFY PRINTED COPY. Estrella Gómez RN, RN 10/11/2017 1:39 PM Signed [facility] NURSE PROGRESS NOTE SERVICE DATE: 10/11/2017 SERVICE TIME: 12:55 PM REFERRED BY: Solange/Krista GONZALES VISIT WITH: Patient REASON FOR VISIT: Coping issues, Grief and loss, Lonliness, New diagnosis and Serious illness/trauma CONDITION: Surgical INTERVENTIONS: Emotional support, Prayer with patient, Stress booklets and Therapeutic listening TIME SPENT (minutes): 30 Patient receptive to visit. Patient talked freely about her past and present health issues. Patient states that she is just tired of it all and wished she could go home. Offered encouragement and reassurance. Offered some items to help with stress. Had prayer with patient. SIGNATURE: Estrella Gómez RN PATIENT NAME: Dia Mccullough DATE: October 11, 2017 TIME: 1:32 PM Laly Justice RN, RN 10/11/2017 3:18 PM Signed WOUND CARE NURSE CONSULT NOTE SERVICE DATE: 10/11/2017 SERVICE TIME: 1450 REASON FOR VISIT: Wound TIME SPENT (minutes): 30 Documentation from Wound Expert can be found in scanned documents. Patient seen by Carol Neal BUSINESS ADMINISTRATION PROGRAM CHAIR and lacey RN. Left lower leg hematoma with area of congealed blood and distal fluid filled area. Xeroform, dry gauze dressing, and SPIKE wrap daily. Plastic Surgery consulted for hematoma evacuation. Wound care to follow. SIGNATURE: Laly Justice RN PATIENT NAME: Dia Mccullough DATE: October 11, 2017 TIME: 3:13 PM CONTACT#: [id number] Misael Wei MD 10/11/2017 3:38 PM Signed INFECTIOUS DISEASE CONSULT PROGRESS NOTE SERVICE DATE: 10/11/2017 SERVICE TIME: 3:22 PM Subjective INTERVAL HISTORY / PERTINENT Review of Systems Constitutional: Negative for fever. Gastrointestinal: Negative for abdominal pain. Was constipated, given miralax, now having increased stool output but not watery and only 2 so far today. Pt thinks from antibiotic and refused it earlier. Going for repeat CT abd and possible drain placement. Current Facility-Administered Medications: heparin iv infusion (STANDARD NOMOGRAM) 25,000 units in NaCl 0.45% 250 mL PREMIX 0-3,000 Units/hr INTRAVENOUS CONTINUOUS And heparin RATE CHANGE bolus 1,000-10,000 Units for subtherapeutic aptt results 1,000-10,000 Units INTRAVENOUS PRN HYDROcodone 5 mg - acetaminophen 325 mg tablet (NORCO) 1 tablet ORAL q 4 H PRN polyethylene glycol 3350 17 g packet (MIRALAX, GLYCOLAX) 17 g ORAL DAILY metoprolol tartrate (short acting) 25 mg tab(s) (LOPRESSOR) 25 mg ORAL q 12 H acetaminophen 650 mg tab(s) (TYLENOL) 650 mg ORAL q 6 H PRN meropenem 1 g in NaCl 0.9% 100 mL MB+ (MERREM) 1 g INTRAVENOUS q 12 H ondansetron orally disintegrating 4 mg tab(s) (ZOFRAN ODT) 4 mg ORAL q 6 H PRN predniSONE 5 mg tab(s) (DELTASONE) 5 mg ORAL BID PC predniSONE 2.5 mg tab(s) (DELTASONE) 2.5 mg ORAL DAILY wDINNER pantoprazole DR 40 mg tab(s) (PROTONIX) 40 mg ORAL DAILY (6 AM) saliva substitute combo no.9 15 mL (BIOTENE mouthwash) 15 mL MUCOUS MEMBRANE (TOPICAL MOUTH AND THROAT) 5X/DAY benzocaine-menthol 1 Lozenge (CEPACOL) 1 Lozenge MUCOUS MEMBRANE (TOPICAL MOUTH AND THROAT) q 2 H PRN 0.9% NaCl 3-5 mL 3-5 mL INTRAVENOUS q 12 H lactated ringers infusion 100 mL/hr INTRAVENOUS CONTINUOUS guaiFENesin 200 mg oral liquid (ROBITUSSIN) 200 mg ORAL QID Objective PHYSICAL EXAM: Vital Signs: BP 138/63 Pulse 96 Temp 36.8 ?C (98.2 ?F) (Temporal Artery) Resp 18 Ht 152.4 cm (5') Wt 70.7 kg (155 lb 13.8 oz) SpO2 99% BMI 30.44 kg/m? Physical Exam Abdominal: Soft. She exhibits no distension. There is no tenderness. Musculoskeletal: Left leg dressing in place. Reviewed [facility] photo- has subcu fluid collection, hematoma. Plastics to be consulted. Vitals reviewed. DATA: Diagnostic Tests Reviewed for Today's Visit: Most recent labs Micro: No data Recent Labs 10/11/17 0431 10/10/17 0830 10/10/17 0357 10/09/17 0630 WBC 7.98 8.18 8.61 -- 15.73* HB 7.4* 7.4* 6.1* -- 7.8* HCT 23.4* 23.4* 19.6* -- 25.4* PLT 207 211 195 -- 264 NEUTNUM 6.20* 6.63* -- 14.06* CREAT 0.94 -- 1.63* 1.55* No results found for: VANCORA Impression/Recommendations Principal Problem: Intra-abdominal abscess (HCC) POA: Yes Assessment AND Plan: await repeat ct, possible percutaneous drain. Sepsis- improving Traumatic hematoma of left lower leg POA: Yes Assessment AND Plan: watch for sign of infection. If debrided per Plastics, send culture. Loose stools likely related to miralax, possibly meropenem, but she needs to continue the antibiotic. I have discussed with her. Alternative therapy eg a cephalosporin would require addition of anaerobic coverage, since she is allergic to flagyl would need to give clindamycin or tigecycline, each of which have their own issues. Resolved Problems: * No resolved hospital problems. * SIGNATURE: Misael Wei MD PATIENT NAME: Dia Mccullough DATE: October 11, 2017 TIME: 3:22 PM PAGER/CONTACT #: [phone] Phong Rush MD 10/11/2017 3:56 PM Signed UPDATED HISTORY AND PHYSICAL EXAMINATION Date: 10/11/17 Name: Dia Mccullough PHYSICAL EXAM MUST BE COMPLETED ON ADMISSION The History and Physical (completed in the past 30 days) has been reviewed and the patient has been examined. The contents accurately reflect the patient's condition with the following additions or revisions since the HANDP was completed. Examination indicates no changes. This HANDP can be found in the Electronic Medical Record dated 10/08/2017 @ 11:51 PM. Phong Rush MD 10/11/2017 4:31 PM Signed INTERVENTIONAL RADIOLOGY POST PROCEDURE NOTE DATE: 10/11/17 NAME: Dia Mccullough LOG ID: [id number] Pre-Procedure Diagnosis: Pelvic abscess Cooker Meal: Surgeon(s) and Role: * Phong Rush - Primary Procedure: CT guided placement of abscess drainage catheter Anesthesia: Moderate sedation Findings: ~ 25 cc pus. 8 Fr 35 cm Skater APDL drain placed. Estimated Blood Loss: 0 ml Specimen: To microbiology Complications: None Post-Op/Post-Procedure Diagnosis: Pelvic abscess Plan: CT scan of pelvis and abscessogram in one week. Antione Irizarry MD 10/12/2017 8:33 AM Signed CONSULT PROGRESS NOTE SERVICE DATE: 10/12/2017 SERVICE TIME: 8 AM CONSULTING SERVICE: HemOnc Subjective INTERVAL HPI: CT guided placement of abscess drainage catheter on 10/11/17. Patient denies abdominal pain. No dyspnea. Some pain in left leg while standing. On Lovenox. Current hospital medications: acetaminophen 650 mg tab(s) (TYLENOL) 650 mg ORAL q 4 H PRN iv contrast (radiology procedure) INTRAVENOUS DIRECTED PRN enteric contrast (radiology procedure) ORAL DIRECTED PRN enoxaparin 70 mg injection (LOVENOX) 1 mg/kg/dose SUBCUTANEOUS q 24 HR HYDROcodone 5 mg - acetaminophen 325 mg tablet (NORCO) 1 tablet ORAL q 4 H PRN polyethylene glycol 3350 17 g packet (MIRALAX, GLYCOLAX) 17 g ORAL DAILY metoprolol tartrate (short acting) 25 mg tab(s) (LOPRESSOR) 25 mg ORAL q 12 H acetaminophen 650 mg tab(s) (TYLENOL) 650 mg ORAL q 6 H PRN meropenem 1 g in NaCl 0.9% 100 mL MB+ (MERREM) 1 g INTRAVENOUS q 12 H ondansetron orally disintegrating 4 mg tab(s) (ZOFRAN ODT) 4 mg ORAL q 6 H PRN predniSONE 5 mg tab(s) (DELTASONE) 5 mg ORAL BID PC predniSONE 2.5 mg tab(s) (DELTASONE) 2.5 mg ORAL DAILY wDINNER pantoprazole DR 40 mg tab(s) (PROTONIX) 40 mg ORAL DAILY (6 AM) saliva substitute combo no.9 15 mL (BIOTENE mouthwash) 15 mL MUCOUS MEMBRANE (TOPICAL MOUTH AND THROAT) 5X/DAY benzocaine-menthol 1 Lozenge (CEPACOL) 1 Lozenge MUCOUS MEMBRANE (TOPICAL MOUTH AND THROAT) q 2 H PRN 0.9% NaCl 3-5 mL 3-5 mL INTRAVENOUS q 12 H lactated ringers infusion 100 mL/hr INTRAVENOUS CONTINUOUS guaiFENesin 200 mg oral liquid (ROBITUSSIN) 200 mg ORAL QID Objective PHYSICAL EXAM: Physical Exam Performed: BP 150/77 Pulse 89 Temp (Src) 99 (Oral) Resp 18 Ht 5' 0 (1.52m) Wt 155 lb 13.8 oz (70.7kg) SpO2 99% BMI 30.44 kg/(m2). GENERAL: Alert, no distress, cooperative, SKIN: Scattered bruising. HEENT: Anicteric. LUNGS: Lungs clear to auscultation. Unlabored breathing. CARDIAC: Normal S1 and S2; no rubs, murmurs, or gallops ABDOMEN: Abdomen soft, non-tender, non-distended, BS normal EXTREMITIES: left leg- wrapped in spike. + hematoma. NEURO: No focal deficit. DATA: Diagnostic tests reviewed for today's visit: CBC: Recent Labs 10/12/17 0635 10/11/17 0431 10/10/17 0830 10/09/17 0630 WBC 7.81 8.18 7.98 8.61 15.73* HB 7.4* 7.4* 7.4* 6.1* 7.8* HCT 24.3* 23.4* 23.4* 19.6* 25.4* PLT 224 211 207 195 264 MCV 102.5* 99.6* 100.0* 104.3* 105.4* COAG: Recent Labs 10/11/17 1235 10/11/17 0431 APTT 73.5* 23.4 INR -- 0.93 BMP: Recent Labs 10/11/17 0431 10/10/17 0357 10/09/17 0630 GLUC 90 97 116* NA 142 142 138 K 4.1 3.3* 3.5 CHLOR 109* 108* 105 CO2 29 28 24 ANION 8 9 13 BUN 20* 34* 32* CREAT 0.94 1.63* 1.55* CHEM: Recent Labs 10/11/17 0431 10/10/17 0357 10/09/17 0630 ALB -- 1.7* -- TPROT -- 4.3* -- CA 8.0* 7.6* 8.0* MG -- -- 1.4* Impression/Recommendations 1. Sigmoid diverticulitis with 5cm pelvic abscess: - s/p CT guided placement of abscess drainage catheter on 10/11/17 - Continue ABX. ? 2. Bowel perforation 08/24/17:?she refused surgery at that time and was treated with ABX. ? 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 Used to be on coumadin which was stopped when she developed hematemesis in 08/2017. Developed DVT/PE while off Coumadin. Was placed on lovenox 1mg/kg BID- dose decreased to 1mg/kg daily due to hematoma. - Antiphospholipid ab pending. - Once patient is stable, consider switching back to Coumadin. She is followed by PCP for INR monitoring. She could not afford NOAC. ? 4. Severe Anemia: likey secondary to bleed and myelosuppression from antibiotics. Stable now. SIGNATURE: Antione Irizarry MD PATIENT NAME: Dia Mccullough DATE: October 12, 2017 TIME: 8 AM PAGER: [phone] Shauna Pulido MD 10/12/2017 9:21 AM Attested Attestation signed by Khai Lira at 10/12/2017 1:22 PM I personally saw and examined the patient. I reviewed the resident's note. I agree with the resident's assessment and plan unless otherwise noted below. Emergency General Surgery Progress Note SERVICE DATE: 10/12/2017 SUBJECTIVE: Drain placed into pre-sacral fluid collection by IR yesterday. Patient complains of some tenderness at the drain entry site. Denies intra-abdominal pain. +BM. Denies nausea and vomiting. Tolerating diet DIET REGULAR OBJECTIVE: Vitals: Temp (24hrs), Av.8 ?C (98.2 ?F), Min:36.2 ?C (97.2 ?F), Max:37.2 ?C (99 ?F) BP 150/77 Pulse 89 Temp 37.2 ?C (99 ?F) (Oral) Resp 18 Ht 152.4 cm (5') Wt 70.7 kg (155 lb 13.8 oz) SpO2 99% BMI 30.44 kg/m? O2 Therapy: Room Air IANDO: Date 10/11/17699 - 10/12/1765810/12/17699 - 10/13/17 0659 Shift 6247-1183 8854-8290 9849-1837 24 Hour Total 0522-6223 2402-2035 8171-3798 24 Hour Total I N T A K E PO 360 120 480 PO 360 120 480 IV 1100 1100 1000 1000 LR 1000 1000 1000 1000 Meropenem (Merrem) 100 100 Irrigants 5 5 Irrigant/Flush Amount In (Drain/Tube 10/11/17 Toby Sherwood Left Lower Quadrant Abdomen Drain #1) 5 5 Shift Total 2136 615 1867 1000 1000 O U T P U T Urine 2 3 5 Urine Not Saved 2 3 5 Tubes 14 12.5 26.5 Drain/Tube Output (Drain/Tube 10/11/17 Toby Sherwood Left Lower Quadrant Abdomen Drain #1) 14 12.5 26.5 # of BMs Number of BMs 1 x 1 x Shift Total 16 15.5 31.5 Weight (kg) 70.7 70.7 70.7 70.7 70.7 70.7 70.7 70.7 MEDICATIONS Current Facility-Administered Medications: acetaminophen 650 mg tab(s) (TYLENOL) 650 mg ORAL q 4 H PRN iv contrast (radiology procedure) INTRAVENOUS DIRECTED PRN enteric contrast (radiology procedure) ORAL DIRECTED PRN enoxaparin 70 mg injection (LOVENOX) 1 mg/kg/dose SUBCUTANEOUS q 24 HR HYDROcodone 5 mg - acetaminophen 325 mg tablet (NORCO) 1 tablet ORAL q 4 H PRN polyethylene glycol 3350 17 g packet (MIRALAX, GLYCOLAX) 17 g ORAL DAILY metoprolol tartrate (short acting) 25 mg tab(s) (LOPRESSOR) 25 mg ORAL q 12 H acetaminophen 650 mg tab(s) (TYLENOL) 650 mg ORAL q 6 H PRN meropenem 1 g in NaCl 0.9% 100 mL MB+ (MERREM) 1 g INTRAVENOUS q 12 H ondansetron orally disintegrating 4 mg tab(s) (ZOFRAN ODT) 4 mg ORAL q 6 H PRN predniSONE 5 mg tab(s) (DELTASONE) 5 mg ORAL BID PC predniSONE 2.5 mg tab(s) (DELTASONE) 2.5 mg ORAL DAILY wDINNER pantoprazole DR 40 mg tab(s) (PROTONIX) 40 mg ORAL DAILY (6 AM) saliva substitute combo no.9 15 mL (BIOTENE mouthwash) 15 mL MUCOUS MEMBRANE (TOPICAL MOUTH AND THROAT) 5X/DAY benzocaine-menthol 1 Lozenge (CEPACOL) 1 Lozenge MUCOUS MEMBRANE (TOPICAL MOUTH AND THROAT) q 2 H PRN 0.9% NaCl 3-5 mL 3-5 mL INTRAVENOUS q 12 H lactated ringers infusion 100 mL/hr INTRAVENOUS CONTINUOUS guaiFENesin 200 mg oral liquid (ROBITUSSIN) 200 mg ORAL QID Labs: Recent Labs 10/12/17 0635 10/11/17 0431 10/10/17 0357 NA -- 142 -- 142 K -- 4.1 -- 3.3* CHLOR -- 109* -- 108* CO2 -- 29 -- 28 BUN -- 20* -- 34* CREAT -- 0.94 -- 1.63* GLUC -- 90 -- 97 ANION -- 8 -- 9 CA -- 8.0* -- 7.6* ALB -- -- -- 1.7* AST -- -- -- 5* ALT -- -- -- 12 ALKPHOS -- -- -- 40* TBILI -- -- -- 0.2 WBC 7.81 8.18 7.98 < > -- HB 7.4* 7.4* 7.4* < > -- HCT 24.3* 23.4* 23.4* < > -- PLT 224 211 207 < > -- INR -- 0.93 -- -- < > = values in this interval not displayed. Exam: GENERAL: No distress, Alert NEURO: AANDOx3, CN II-XII grossly intact HEENT: normocephalic, atraumatic LUNGS: Unlabored breathing CARDIAC: Regular rate and rhythm as above ABDOMEN: Soft, Non-tendet, non-distended. No rebound or guarding. TTP at LLQ drain site. EXTREMITIES: LLE with chronic venous skin changes wrapped. Motion and sensation intact SKIN: Skin color, texture, turgor normal, No rashes or lesions ASSESSMENT AND PLAN: Active Hospital Problems Diagnosis Date Noted - Intra-abdominal abscess (HCC) 10/08/2017 - Traumatic hematoma of left lower leg 10/08/2017 - Leg hematoma, left, initial encounter 10/08/2017 - Baltazar disease Chronic - Venous insufficiency (chronic) (peripheral) - CKD (chronic kidney disease) stage 3, GFR 30-59 ml/min 11/28/2014 - Pulmonary emboli (HCC) 01/30/2014 Overview Note: clinically resolved - DVT (deep venous thrombosis) ([facility]) 01/08/2014 Overview Note: recurrent 77 year old female with diverticulitis and presacral fluid/gas collection. -Regular diet - Continue ADRIÁN drain - Abx per ID - IR plans CT pelvis with abscessogram in 1 week. - Therapeutic lovenox per hematology - she will need to have an outpatient colonoscopy in 6-8 weeks after discharge. Shauna Pulido MD General Surgery PGY-4 October 12, 2017 9:21 AM [facility] #: Pager: [phone] Joan Masters RN, RN 10/12/2017 10:02 AM Signed CARE MANAGEMENT: ASSESSMENT AND DISCHARGE PLAN SERVICE DATE: 10/12/2017 SERVICE TIME: 955 PRIMARY CARE PHYSICIAN: Mallorie Wheeler MD ADMISSION STATUS: Inpatient Needs Prior to Discharge: Wound Care;Home Care Order;OT/PT Evaluation MEDICAL: Patient/Charrer Stated Goals: To improve my functional status Health Insurance: AET MEDICARE PPO [employer] Medicare Health Issues Impacting Discharge Plan: None Last Admission Date: Previous admit date: 08/24/2017 Is this Within the Past 30 days? No Advance Directive: Health Literacy: 1. How often do you need to have someone help you when you read instructions, pamphlets, or other written material from your doctor or pharmacy? Never - 1 2. How confident are you filling out medical forms by yourself? Extremely - 1 If Patient scores > 3 on either question, the following interventions were put into place: Patient did not score > 3 FUNCTIONAL AND COGNITIVE/BEHAVIORAL PRIOR TO ADMISSION: Baseline Mental Status: Alert AND Oriented, Person, Place , Time and Situation Functional Status: Independent Does Patient Currently Receive Any Community Services or Home Care? None Equipment Prior to Admission: Walker Wheelchair Has the Patient Been in a Correction Facility in the Past 30 days? No SOCIAL: Living Arrangement: Home Lives With: Alone Financial Resources: Retired Primary Contact: Extended Emergency Contact Information Primary Emergency Contact: Luis Mccullough Hi Relation: Son Supportive: Yes Other Important Patient Contacts: None Caregiver Assessment: Caregiver is ready, willing and able to meet the patient's needs as recommended by the inter-professional team? Yes Patient's transition needs and plan for meeting these needs: Family available to help as needed. Does the patient have an acute stroke diagnosis, or has the patient had a stroke during this admission? No Medication Adherence: I am convinced of the importance of my prescription medication: Agree completely - 0 I worry that my prescription medication will do more harm than good to me Disagree completely - 0 I feel financially burdened by my [id number] expenses for my prescription medication: Disagree mostly -0 Patient is categorized as low risk < 2 Are you interested in bedside delivery of your medications? Yes Food Concerns: In the Last Month, Have You had Trouble Getting Food? No trouble getting food During the Last Month, Have You Worried Whether Your Food Would Run Out Before You Had Enough Money to Buy More? No Is the Patient Psychosocially Complex? No ASSESSMENT AND PLAN: Medical Needs: Fall risk or frequent falls and Wound Care - active or potential Psychosocial Needs: None FREEDOM OF CHOICE EXPLAINED: Yes HHC POTENTIAL TRANSITION PLANS Home Home Fdc OT/PT Chart reviewed, spoke with RN. Spoke with pt at bedside who reports she is from a single story home alone, but has family support. Would like [facility] for wound care and would be agreeable to home PT/OT if needed. Await PT/OT eval (ordered) for further planning. SIGNATURE: Joan Masters RN PATIENT NAME: Dia Mccullough DATE: October 12, 2017 TIME: 9:56 AM PAGER/CONTACT #: [phone] Lacy Valdez MD 10/12/2017 8:12 PM Cosign Needed Plastic Surgery Consult Note: HPI: 77 y/o F who was admitted 10/11/17 for abdominal abscess/phlegmon found on CT at OSH. Patient has a complicated hospital course after being diagnosed with diverticulitis approx 4-5 weeks ago. She had spent some time in Hospice facility after declining operative intervention. She also has a history of DVT/PE with history of oral anticoagulation use. This was stopped and then subsequently restarted after a diagnosis of a new DVT of her lower extremities recently. Patient states that a couple of days ago she noticed bleeding and oozing from her LLE. She doesn't recall injuring it. It did begin draining and since then the pain has significantly reduced. Plastic surgery was evaluated for possible debridement of a LLE hematoma. 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 - Inflammatory polyarthropathy - Normocytic anemia - PE (pulmonary thromboembolism) (HCC) 01/05/14 Bilat, extensive - Pulmonary embolism without acute cor pulmonale - Pure hypercholesterolemia - Sicca syndrome - Unspecified essential hypertension - Unspecified gastritis and gastroduodenitis without mention of hemorrhage - Urinary tract infection, site not specified - Venous insufficiency (chronic) (peripheral) - Vitamin D deficiency PAST SURGICAL HISTORY Procedure Laterality Date - CATARACT EXTRACTION HX Right - PARTIAL HIP REPLACEMENT Right 04/2013 - PAST SURGICAL HISTORY OF hernia repair - PAST SURGICAL HISTORY OF 11/2012 L3-L4 laminectomy and fusion - PAST SURGICAL HISTORY OF 11/2012 Back fusion surgery - TOTAL HIP REPLACEMENT 05/10/2013 right hip replacement - VENOUS DUPLEX BOTH LOWER EXTREMITIES 05/12/2016 No current facility-administered medications on file prior to encounter. Current Outpatient Prescriptions on File Prior to Encounter: predniSONE (DELTASONE) 5 mg tablet Take 5 mg by mouth twice daily. ondansetron orally disintegrating (ZOFRAN ODT) 4 mg disintegrating tablet Take 1 tablet by mouth every 6 hours as needed for Nausea/Vomiting. hydrochlorothiazide (HYDRODIURIL, ESIDRIX) 25 mg tablet Take 1 tablet by mouth once daily. 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 [OTHER] Other PE: 10/12/17 0346 10/12/17 0755 10/12/17 1602 10/12/17 1943 BP: 160/87 150/77 140/66 147/74 Pulse: 98 89 102 107 Resp: Temp: 36.2 ?C (97.2 ?F) 37.2 ?C (99 ?F) 37 ?C (98.6 ?F) 36.7 ?C (98.1 ?F) TempSrc: Temporal Artery Oral Oral Oral SpO2: 99% 99% 100% 99% Weight: Height: Gen: Awake, alert, coherent. Lower extremities: Bilateral edema with signs of chronic venous insufficiency. LLE: ~15X20 cm area of hemorrhagic blister-partially open with extruding clot over pretibial area. No active bleeding. Surrounding skin with ecchymosis extending up midshaft and down through dorsum and plantar aspect of heel. Signs of chronic venous insufficiency and swelling. No signs of infection or erythema. A/P: 77 y/o F with LLE hematoma on anticoagulation -We discussed the options of both surgical and nonsurgical intervention for this wound. Patient has a large LLE hematoma that would possibly benefit from debridement in the OR. She would likely be left with a large LE wound/defect that would require wound care and possible skin grafting in the future. This would require holding her anticoagulation for the perioperative period. She also has poor donor site availability given her thin skin and steroid use. The benefit of debridement would be evacuation of clot, faster clot resorption, and excision of necrotic skin that could potentially be a nidus for infection. -At this time patient would like to proceed with nonsurgical treatment. She feels that debridement in the OR with plans for skin grafting in the future would still leave her with an open wound and a new donor site wound. Nonsurgical care would involve continued local wound care with planned follow up with the wound care center in [place] for close follow up. She understands this will likely take months to heal and she does run the risk of developing an infection of this leg. -Discussed with Dr. Casey. MD Misael Mireles MD 10/12/2017 1:50 PM Signed INFECTIOUS DISEASE CONSULT PROGRESS NOTE SERVICE DATE: 10/12/2017 SERVICE TIME: 1:46 PM Subjective INTERVAL HISTORY / PERTINENT Review of Systems Constitutional: Negative for fever (emp 37.2). Gastrointestinal: Positive for abdominal pain (after drain placed). Pt taking and tolerating meropenem. Current Facility-Administered Medications: acetaminophen 650 mg tab(s) (TYLENOL) 650 mg ORAL q 4 H PRN iv contrast (radiology procedure) INTRAVENOUS DIRECTED PRN enteric contrast (radiology procedure) ORAL DIRECTED PRN enoxaparin 70 mg injection (LOVENOX) 1 mg/kg/dose SUBCUTANEOUS q 24 HR HYDROcodone 5 mg - acetaminophen 325 mg tablet (NORCO) 1 tablet ORAL q 4 H PRN polyethylene glycol 3350 17 g packet (MIRALAX, GLYCOLAX) 17 g ORAL DAILY metoprolol tartrate (short acting) 25 mg tab(s) (LOPRESSOR) 25 mg ORAL q 12 H acetaminophen 650 mg tab(s) (TYLENOL) 650 mg ORAL q 6 H PRN meropenem 1 g in NaCl 0.9% 100 mL MB+ (MERREM) 1 g INTRAVENOUS q 12 H ondansetron orally disintegrating 4 mg tab(s) (ZOFRAN ODT) 4 mg ORAL q 6 H PRN predniSONE 5 mg tab(s) (DELTASONE) 5 mg ORAL BID PC predniSONE 2.5 mg tab(s) (DELTASONE) 2.5 mg ORAL DAILY wDINNER pantoprazole DR 40 mg tab(s) (PROTONIX) 40 mg ORAL DAILY (6 AM) saliva substitute combo no.9 15 mL (BIOTENE mouthwash) 15 mL MUCOUS MEMBRANE (TOPICAL MOUTH AND THROAT) 5X/DAY benzocaine-menthol 1 Lozenge (CEPACOL) 1 Lozenge MUCOUS MEMBRANE (TOPICAL MOUTH AND THROAT) q 2 H PRN 0.9% NaCl 3-5 mL 3-5 mL INTRAVENOUS q 12 H lactated ringers infusion 100 mL/hr INTRAVENOUS CONTINUOUS guaiFENesin 200 mg oral liquid (ROBITUSSIN) 200 mg ORAL QID Objective PHYSICAL EXAM: Vital Signs: BP 150/77 Pulse 89 Temp 37.2 ?C (99 ?F) (Oral) Resp 18 Ht 152.4 cm (5') Wt 70.7 kg (155 lb 13.8 oz) SpO2 99% BMI 30.44 kg/m? Physical Exam Abdominal: Soft. There is tenderness (around site of drain). Bloody purulent fluid in drain. Vitals reviewed. DATA: Diagnostic Tests Reviewed for Today's Visit: Most recent labs and imaging results. Micro: Abscess fluid cult pending, has GPC and GNB on gm stain Recent Labs 10/12/17 0635 10/11/17 0431 10/10/17 0830 10/10/17 0357 WBC 7.81 8.18 7.98 8.61 -- HB 7.4* 7.4* 7.4* 6.1* -- HCT 24.3* 23.4* 23.4* 19.6* -- PLT 224 211 207 195 -- NEUTNUM 5.87 6.20* 6.63* -- CREAT -- 0.94 -- 1.63* No results found for: VANCORA Impression/Recommendations Principal Problem: Intra-abdominal abscess (HCC) POA: Yes Assessment AND Plan: continue iv meropenem, await culture. CKD (chronic kidney disease) stage 3, GFR 30-59 ml/min POA: Yes Assessment AND Plan: Resolved Problems: * No resolved hospital problems. * SIGNATURE: Misael Wei MD PATIENT NAME: Dia Mccullough DATE: October 12, 2017 TIME: 1:46 PM PAGER/CONTACT #: [phone] ROLDAN Medina/Marina 10/12/2017 2:52 PM Signed Occupational Therapy Evaluation SERVICE DATE: 10/12/2017 SERVICE TIME: 1336 to 1406 ROOM: [id number] Recommended Discharge Disposition: Subacute/SNF Recommended Discharge Disposition Comments: Pt is limited with her mobility and ADL participation due to the L LE hematoma and abdominal pain from her abdominal abcess/drain placement. Pt has been to [place] rehab in the past and had a very good experince Justification For Post Acute Needs: Anticipate that patient will require daily (5x/wk) skilled therapy in a post-acute facility setting at the time of acute hospital discharge;Medically complex;Motivated;Willing to participate;Living the community premorbidly OT Recommendations to Nursing: With assist of 2 people;Transfer to Chair;ADL?s in chair;OOB for meals;Bedside Commode for Toileting Equipment: Wheeled Walker OT 6 Clicks Score: 14 Precautions/Activity Restrictions: Fall Risk Isolation Type: None ASSESSMENT: OT Evaluation Moderate Complexity: Occupational Profile - Extended review of patient's medical record completed including patient's physical, cognitive, and psycho-social history (please see current hospital course of evaluation). Occupational Performance - Pt presents with deficits in feeding, grooming, UE bathing/dressing, LE bathing/dressing, functional transfers, functional mobility, decreased safety awareness, decreased insight into deficits Complexity in Clinical Decision Making - The extent of clinical reasoning was moderate, several treatment options present for the patient, need for modification during the evaluation was minimal/moderate, comorbidities affecting occupational performance: Baltazar's, CKD, DVT/PE, fibromyalgia, HTN, R hip endo 2013 back sx Patient Disposition at Start of Session: Supine in Bed Patient Disposition at End of Session: OOB in Chair;Call Suggs in Reach Tolerance Limited By Pain (throbbing with L LE down) Occupational Therapy Problem List: Education Deficit;Safety Deficits;Impaired Self Care;Decreased Activity Tolerance;Decreased Strength;Functional Mobility Impairment;Balance Impaired Patient /Caregiver Goals: Go To Rehab Goals for Plan of Care: Grooming with: Minimal Assistance Upper Body Bathing with: Minimal Assistance Upper Body Dressing with: Minimal Assistance Lower Body Bathing with: Moderate Assistance Lower Body Dressing with: Moderate Assistance Toilet Hygiene with: Minimal Assistance Toilet Transfer with: Minimal Assistance (BSC) Tolerate (minutes of functional activity): 25 Functional Activity with: Minimal Assistance Additional Goal 1: Pt to demo static stand ADL for at least 4 min A Additional Goal 2: Pt to demo good safety with OOB ADLs Transfer: bed mobility with min A Rehab Potential: Good PLAN: Treatment Frequency (times per week): 3 (1-3) Current admission Treatment Interventions: Education;Self Care / Home Management;Functional Mobility Training;Strengthening Plan of Care developed with: Patient TREATMENT INTERVENTIONS: Therapy Diagnosis: Reduced mobility-other;Decreased activities of daily living (ADL);Muscle Weakness (generalized);Unsteadiness on feet Interventions Provided: Evaluation;Self Fdc Management (19337) $ Evaluation-Moderate (06825) Billed Units: 1 unit Self Fdc Management (92733) Treatment Minutes: 14 1 unit Skilled Intervention(s): Facilitated edge of bed ADLs of oral and facial hygiene at edge of bed with L LE propped up to increase ADL participation, increase activity tolerance in unsupported sitting. Provided assistance, cues, fall guarding assist, sequencing to safely complete ADLs. Facilitated safe transfer to chair using wheeled walker and pivoting on R LE/hopping on R LE. Elevated L LE with pillows/blankets due to pain/increased throbbing after movement. Edu pt and communicated on whiteboard mobility level 2 with 2 assist. Left wheeled walker in room due to floor not having any walkers available. Total Timed Code Treatment Minutes: 14 Total Treatment Time (minutes): 30 FUNCTIONAL G CODE: OT 6 Clicks Score: 14 (10/12/17 133) Self Care Current Status (G8987): CK (10/12/171335) Self Care Goal Status (G8988): CJ (10/12/171335) Based on clinical assessment and the score on the 6 Clicks Functional Assessment Tool, the G code and corresponding severity modifiers are documented above. SUBJECTIVE: Current Hospital Course: Chart reviewed; This is a 77 year old female who has a complicated recent medical history starting August 24 when she was diagnosed with diverticular abscess/perforation and septic shock. She was brought here for surgical eval from [place], but declined operative intervention and requested to go home with hospice on PO antibiotics. She took 2 weeks of antibiotics, had stabilization and improvement of her symptoms, but subsequently developed hematemesis due to anticoagulation and presumed PUD. She was admitted to inpatient hospice residence, but with stopping her anticoagulation, hematemesis stopped and she was discharged from inpatient hospice. She then had new DVT and PE developing off anticoagulation and was re-hospitalized, with initiation of Lovenox at full dose. She spent some time in the transitional care unit and was sent home 1 week ago on Lovenox. Yesterday she noted an area on her left foot/pretibial area of bruise/oozing blood, but it worsened and progressed to cover much of the pretibial area with more bleeding, and she went to the [place] ED this morning. She was discharged back home after wound evaluation and no finding of circulatory compromise. Her son then brought her back to the ED with a concern over abdominal pain and insistent on hospitalization per [place] ED notes. Eval included CT abdomen which showed a 5 cm abscess/phlegmon in the same area as the original perforation, and she was recommended to be transferred to have IR evaluation of percutaneous drainage. 10/11 Procedure: CT guided placement of abscess drainage catheter 77 year old female with diverticulitis and presacral fluid/gas collection. 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 Hansen - Inflammatory polyarthropathy - Normocytic anemia - PE (pulmonary thromboembolism) ([facility]) 01/05/14 Bilat, extensive - Pulmonary embolism without acute cor pulmonale - Pure hypercholesterolemia - Sicca syndrome - Unspecified essential hypertension - Unspecified gastritis and gastroduodenitis without mention of hemorrhage - Urinary tract infection, site not specified - Venous insufficiency (chronic) (peripheral) - Vitamin D deficiency PAST SURGICAL HISTORY Procedure Laterality Date - CATARACT EXTRACTION HX Right - PARTIAL HIP REPLACEMENT Right 04/2013 - PAST SURGICAL HISTORY OF hernia repair - PAST SURGICAL HISTORY OF 11/2012 L3-L4 laminectomy and fusion - PAST SURGICAL HISTORY OF 11/2012 Back fusion surgery - TOTAL HIP REPLACEMENT 05/10/2013 right hip replacement - VENOUS DUPLEX BOTH LOWER EXTREMITIES 05/12/2016 Reason for Occupational Therapy Consult: Post acute placement Relevant Past Medical History: Curry's, CKD, DVT/PE, fibromyalgia, HTN, R hip endo 2013 back sx, Patient Report: Pt in room cooperative and asking to get out of bed. Pain: 8/10 L LE after movement Home Environment Patient Lives With: Self/Alone Assistance Available: time study statistician (Dtr nearby) Entry To Home: No Stairs Tub/Shower Type: walk in shower with seat Laundry: on main floor Equipment Owned: Grab Bars-Shower;Wheeled Walker;Cane;Shower Chair (transport W/C?) Prior Functional Level: Required Assistance Assistance Required With: Laundry;Cleaning;Shopping;Transportation (Dtr assists with IADLs since return home for about 1 week) Prior Functional Level Comments: Pt was at hospice, get better, went to rehab and has been at home for a week. Now developed L LE hematoma. OBJECTIVE: Responsiveness: Alert;Awake Follows Commands: 2-step Commands Memory Deficits: Short Term (3/3 recall) Executive Function Deficits: Judgement;Safety Awareness Safety Awareness Deficit: Minimal impairment Judgement Deficit: Minimal impairment CURRENT FUNCTIONAL STATUS: Current Activities of Daily Living Assist Level Feeding Set Up Grooming Moderate Assistance Bathing Upper Body Moderate Assistance Bathing Lower Body Maximal Assistance Dressing Upper Body Moderate Assistance Dressing Lower Body Maximal Assistance Toileting Maximal Assistance Functional Mobility Assist Level Rolling Supine to Sit Moderate Assistance Sit to Supine Scooting Sit to Stand Moderate Assistance Stand to Sit Minimal Assistance Bed to Chair Moderate Assistance Wheeled Walker;Gait Belt Toilet/Commode Moderate Assistance (not formally assessed, sim to chair) Functional Mobility Hand Dominance: Right Range Of Motion: Within Functional Limits Strength: Within Functional Limits Except Location Strength Not WFL: Upper Extremity Left Upper Extremity Strength: 4/5 Right Upper Extremity Strength: 4/5 Edu pt on fall prevention / up with assistance. Pt left in room in chair with calllight within reach. Please see discipline specific clinical documentation flowsheet for complete details for this therapy evaluation/treatment. SIGNATURE: ROLDAN Medina/Marina PATIENT NAME: Dia Mccullough DATE: October 12, 2017 TIME: 2:45 PM PAGER: [phone] Karin Dow MD 10/12/2017 6:00 PM Signed DEPARTMENT OF HOSPITAL MEDICINE PROGRESS NOTE SERVICE DATE: 10/12/2017 SERVICE TIME: 3:16 PM Hospital Medicine/Primary Attending: Karin Dow MD NIGHT AND WEEKEND COVERAGE: From 7am - 7pm, please call [phone] After 7pm, please call cross cover pager #[phone] Subjective INTERVAL HPI: Patient seen and examined. Complains of pain in the ;left leg. Denies fever or chils or SOB. MEDICATIONS: Reviewed Objective PHYSICAL EXAM: BP 150/77 Pulse 89 Temp (Src) 99 (Oral) Resp 18 Ht 5' 0 (1.52m) Wt 155 lb 13.8 oz (70.7kg) SpO2 99% BMI 30.44 kg/(m2). Physical Exam Performed GENERAL: Alert, no distress, cooperative, SKIN: Skin color, texture, turgor normal. No rashes or lesions. OROPHARYNX: Lips, mucosa, and tongue normal. Teeth and gums normal. Oropharynx normal. LUNGS: Lungs clear to auscultation, Air entry good, Unlabored breathing. CARDIAC: Normal S1 and S2; 3/6 systolic murmurs ABDOMEN: Abdomen soft, non-tender, non-distended, BS normal EXTREMITIES: left leg- wrapped in spike. Opened and examined yesterday- has large hematoma in lower leg anteriorly. Small tearing of skin over the hematoma- serosanginous discharge, DP present Lines, Drains, and Airways Line Peripheral 10/09/17 0644 Left Wrist 22 Gauge 3 days Peripheral 10/11/17 0430 Short Left Antecubital 22 Gauge 1 day Drain Drain/Tube 10/11/17 Toby Sherwood Left Lower Quadrant Abdomen Drain #1 1 day Reviewed lines, drains, AND airways. Need to be continued peripheral lines DATA: Diagnostic tests reviewed for today's visit: Most recent labs and imaging results. Assessment/Plan 1. Sigmoid diverticulitis with pelvic abscess, improved, s/p abdominal drain with seropurulent discharge, on meropenem, ID following, H/o bowel perforation 08/24/17 ? 2. Recurrent DVT/PE, MTHFR heterozygous. Used to be on coumadin which was stopped when she developed hematemesis, remains on lovenox, Antiphospholipid ab negative 3. Left leg bleeding/ hematoma, s/p trauma, secondary to higher dose of lovenox for?CKD 3-4, continue with dressing and SPIKE. ? 5. Episode of hematemesis 5 weeks ago while on coumadin, managed with vitk. No scope done. ? 6. SVT, resolved ? 7. Severe Anemia, multifactorial, stable, Hb is 7.4. ? Medication and Non-Pharmacologic VTE Prophylaxis/Anticoagulants Anticoagulant AND Antiplatelet Medications Start Dose Route Frequency Ordered Stop 10/11/17 1800 enoxaparin 70 mg injection (LOVENOX) 1 mg/kg/dose SUBCUTANEOUS EVERY 24 HOURS 10/11/17 1736 -- 10/08/172299 vte non-pharmacologic prophylaxis - none indicated (va,mo) 10/08/17 230 vte current anticoag therapy (va,mo) VTE Prophylaxis: VTE prophylaxis appropriate Disposition: SNF Plan of care discussed with: Patient SIGNATURE: Karin Dow MD PATIENT NAME: Dia Mccullough DATE: October 12, 2017 TIME: 3:16 PM PAGER/CONTACT #: [phone] etx [phone] Joan Masters RN, RN 10/12/2017 3:22 PM Signed CARE MANAGEMENT PROGRESS NOTE SERVICE DATE: 10/12/2017 SERVICE TIME: 1521 LOS: 1 day Needs Prior to Discharge: Accepting Facility;Bed Availability;Precertification;Discharge Transportation Spoke with Pt after PT/OT eval, pt agreeable to SNF at [facility]. Would like [facility] as first choice. Will need precert. SIGNATURE: Joan Masters RN PATIENT NAME: Dia Mccullough DATE: October 12, 2017 TIME: 3:21 PM PAGER/CONTACT #: [phone] Radha Aceves PT 10/12/2017 3:38 PM Signed Physical Therapy Evaluation SERVICE DATE: 10/12/2017 SERVICE TIME: 1455 to 1520 ROOM: [place] [address] Recommended Discharge Disposition: Subacute/SNF Justification For Post Acute Needs: Anticipate that patient will require daily (5x/wk) skilled therapy in a post-acute facility setting at the time of acute hospital discharge PT Recommendations to Nursing: Ambulate with device;Transfer to/from chair;OOB for Meals;With assist of 1 person Device: Wheeled Walker PT 6 Clicks Score: 17 Precautions/Activity Restrictions: Fall Risk Isolation Type: None ASSESSMENT : Patient presents with a medically stable condition with limited functional impairments which minimally impact safe mobility. The patient will require skilled therapy for PT problems that may include balance, gait safety with or without an assitive device and home safety education. Patient Disposition at Start of Session: OOB in Chair Patient Disposition at End of Session: Supine in Bed;Call Suggs in Reach Tolerance Limited By Pain Physical Therapy Problem List: Education Deficit;Safety Deficits;Decreased Activity Tolerance;Decreased Strength;Functional Mobility Impairment;Balance Impaired Patient /Caregiver Goals: Go Home Goals for Plan of Care: Transfer supine to/from sit with: Stand By Assistance Transfer sit to/from stand with: Stand By Assistance Ambulate with: Stand By Assistance Distance: 40 ft intervals Device: Wheeled Walker Goal: Complete 15x2 general LE strength exercises Rehab Potential: Good PLAN: Treatment Frequency (times per week): 5 (1-5) Current admission Treatment Interventions: Education;Strengthening;Functional Mobility Training;Balance Training Plan of Care developed with: Patient TREATMENT INTERVENTIONS: Therapy Diagnosis: Reduced mobility-other;Muscle Weakness (generalized);Unsteadiness on feet;Abnormalities of gait and mobility-other Interventions Provided: Evaluation;Therapeutic Activity (74623) $ Evaluation-Low (48829) Billed Units: 1 unit Therapeutic Activity (01591) Treatment Minutes: 9 1 unit Skilled Intervention(s): Instructed patient in sit to supine using safe, effective technique Instruction in sit to stand technique with proper hand placement and body positioning at edge of bed/chair Instruction in stand to sit technique with lower extremities touching chair/bed and reaching back for surface Education on hand and foot placement for stand pivot. Patient maintains NWB L lower extremity due to pain Education with safe wheeled walker usage including pacing, upright posture, sequencing, gait pattern and proper foot/body placement within the frame of the wheeled walker Education regarding importance of OOB, to chair, ambulate in room to regulate BP, improve lung function and overall blood flow, and to aid with bodily functions somewhat dependent on gravity. Total Timed Code Treatment Minutes: 9 Total Treatment Time (minutes): 25 FUNCTIONAL G CODE: PT 6 Clicks Score: 17 (10/12/17 145) Mobility: Walking and Moving Around Current Status (G8978): CK (10/12/17 1455) Mobility: Walking and Moving Around Goal Status (G8979): CJ (10/12/17 145) Based on clinical assessment and the score on the 6 Clicks Functional Assessment Tool, the G code and corresponding severity modifiers are documented above. SUBJECTIVE: Current Hospital Course: Chart reviewed; ? This is a 77 year old female who has a complicated recent medical history starting August 24 when she was diagnosed with diverticular abscess/perforation and septic shock. ?She was brought here for surgical eval from [place], but declined operative intervention and requested to go home with hospice on PO antibiotics. ?She took 2 weeks of antibiotics, had stabilization and improvement of her symptoms, but subsequently developed hematemesis due to anticoagulation and presumed PUD. ?She was admitted to inpatient hospice residence, but with stopping her anticoagulation, hematemesis stopped and she was discharged from inpatient hospice. ?She then had new DVT and PE developing off anticoagulation and was re-hospitalized, with initiation of Lovenox at full dose. ?She spent some time in the transitional care unit and was sent home 1 week ago on Lovenox. On 10/11 she noted an area on her left foot/pretibial area of bruise/oozing blood, but it worsened and progressed to cover much of the pretibial area with more bleeding, and she went to the [place] ED this morning. ?She was discharged back home after wound evaluation and no finding of circulatory compromise. ?Her son then brought her back to the ED with a concern over abdominal pain and insistent on hospitalization per [place] ED notes. ?Eval included CT abdomen which showed a 5 cm abscess/phlegmon in the same area as the original perforation, and she was recommended to be transferred to have IR evaluation of percutaneous drainage.??? Reason for Physical Therapy Consult : weakness Relevant Past Medical History: Curry's, CKD, DVT/PE, fibromyalgia, HTN, R hip endo 2012 back sx, Active Hospital Problems Diagnosis - Intra-abdominal abscess (HCC) - Traumatic hematoma of left lower leg - Leg hematoma, left, initial encounter - Curry disease - Venous insufficiency (chronic) (peripheral) - CKD (chronic kidney disease) stage 3, GFR 30-59 ml/min - Pulmonary emboli (HCC) clinically resolved - DVT (deep venous thrombosis) (HCC) recurrent 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 - Inflammatory polyarthropathy - Normocytic anemia - PE (pulmonary thromboembolism) (HCC) 01/05/14 Bilat, extensive - Pulmonary embolism without acute cor pulmonale - Pure hypercholesterolemia - Sicca syndrome - Unspecified essential hypertension - Unspecified gastritis and gastroduodenitis without mention of hemorrhage - Urinary tract infection, site not specified - Venous insufficiency (chronic) (peripheral) - Vitamin D deficiency PAST SURGICAL HISTORY Procedure Laterality Date - CATARACT EXTRACTION HX Right - PARTIAL HIP REPLACEMENT Right 04/2013 - PAST SURGICAL HISTORY OF hernia repair - PAST SURGICAL HISTORY OF 11/2012 L3-L4 laminectomy and fusion - PAST SURGICAL HISTORY OF 11/2012 Back fusion surgery - TOTAL HIP REPLACEMENT 05/10/2013 right hip replacement - VENOUS DUPLEX BOTH LOWER EXTREMITIES 05/12/2016 Patient Report: 12/23 pain L lower extremity. Agreeable to PT. I know I cannot go back home like this Home Environment Patient Lives With: Self/Alone Assistance Available: time study statistician (Dtr nearby) Entry To Home: No Stairs Tub/Shower Type: walk in shower with seat Laundry: on main floor Equipment Owned: Grab Bars-Shower;Wheeled Walker;Cane;Shower Chair (transport W/C?) Prior Functional Level: Required Assistance Assistance Required With: Laundry;Cleaning;Shopping;Transportation (Dtr assists with IADLs since return home for about 1 week) Prior Functional Level Comments: Pt was at hospice, get better, went to rehab and has been at home for a week. Now developed L LE hematoma. OBJECTIVE: CURRENT FUNCTIONAL STATUS: Current Functional Mobility Assist Level Additional Information Rolling Supine to Sit Sit to Supine Minimal Assistance Scooting Sit to Stand Minimal Assistance Stand to Sit Minimal Assistance Bed to Chair Toilet/Commode Minimal Assistance Gait Minimal Assistance Gait Device: Wheeled Walker Gait Distance (feet): 4x2 Stairs Curb Step Car Transfer Gait Deviations Left Lower Extremity: Weight bearing decreased General Gait Deviations: Lauryn decreased;Flexed trunk posture;Shuffling Gait;Non-functional gait speed Range Of Motion: Within Functional Limits Strength: Within Functional Limits Except Location Strength Not WFL: Lower Extremity;Upper Extremity Left Upper Extremity Strength: 3+ Right Upper Extremity Strength: 3+ Left Lower Extremity Strength: 4- Right Lower Extremity Strength: 4- Please see discipline specific clinical documentation flowsheet for complete details for this therapy evaluation/treatment. SIGNATURE: Radha Aceves PT PATIENT NAME: Dia Mccullough DATE: October 12, 2017 TIME: 3:33 PM PAGER/CONTACT #: [phone] Summer Farias, Front Office Help 10/12/2017 3:45 PM Signed SNF referral sent to [facility] Debbie Hilton, RN, RN 10/13/2017 11:09 AM Signed Received message through Joan Masters, Patient Access that [facility] will be able to accept pt at d/c Pt informaed. Lory Garces MD 10/13/2017 11:18 AM Signed INPATIENT PROGRESS NOTE SERVICE DATE: 10/13/2017 SERVICE TIME: 11:11 AM PRIMARY SERVICE: Sound Subjective CHIEF COMPLAINT: Intra-abdominal Abscess INTERVAL HPI: 3-4 loose BM. No CP/SOB/CALZADA Current hospital medications: acetaminophen 650 mg tab(s) (TYLENOL) 650 mg ORAL q 4 H PRN iv contrast (radiology procedure) INTRAVENOUS DIRECTED PRN enoxaparin 70 mg injection (LOVENOX) 1 mg/kg/dose SUBCUTANEOUS q 24 HR HYDROcodone 5 mg - acetaminophen 325 mg tablet (NORCO) 1 tablet ORAL q 4 H PRN polyethylene glycol 3350 17 g packet (MIRALAX, GLYCOLAX) 17 g ORAL DAILY metoprolol tartrate (short acting) 25 mg tab(s) (LOPRESSOR) 25 mg ORAL q 12 H acetaminophen 650 mg tab(s) (TYLENOL) 650 mg ORAL q 6 H PRN meropenem 1 g in NaCl 0.9% 100 mL MB+ (MERREM) 1 g INTRAVENOUS q 12 H ondansetron orally disintegrating 4 mg tab(s) (ZOFRAN ODT) 4 mg ORAL q 6 H PRN predniSONE 5 mg tab(s) (DELTASONE) 5 mg ORAL BID PC predniSONE 2.5 mg tab(s) (DELTASONE) 2.5 mg ORAL DAILY wDINNER pantoprazole DR 40 mg tab(s) (PROTONIX) 40 mg ORAL DAILY (6 AM) saliva substitute combo no.9 15 mL (BIOTENE mouthwash) 15 mL MUCOUS MEMBRANE (TOPICAL MOUTH AND THROAT) 5X/DAY benzocaine-menthol 1 Lozenge (CEPACOL) 1 Lozenge MUCOUS MEMBRANE (TOPICAL MOUTH AND THROAT) q 2 H PRN 0.9% NaCl 3-5 mL 3-5 mL INTRAVENOUS q 12 H lactated ringers infusion 100 mL/hr INTRAVENOUS CONTINUOUS guaiFENesin 200 mg oral liquid (ROBITUSSIN) 200 mg ORAL QID Objective PHYSICAL EXAM: BP 165/82 Pulse 89 Temp (Src) 98.2 (Oral) Resp 18 Ht 5' 0 (1.52m) Wt 155 lb 13.8 oz (70.7kg) SpO2 100% BMI 30.44 kg/(m2). Physical Exam Performed GENERAL: Alert, no distress, cooperative SKIN: Skin color, texture, turgor normal. Multiple ecchymoses. EYES: EOMI NECK: No jugulovenous distention, Supple LUNGS: Lungs clear to auscultation, Good diaphragmatic excursion CARDIAC: Normal S1 and S2; no rubs, murmurs, or gallops ABDOMEN: Abdomen soft, non-tender, BS normal, No masses or organomegaly. ADRIÁN drain c/d/i EXTREMITIES: Extensive bruising, LLE wrapped NEURO: Grossly normal cognition, motor function, and cranial nerves III-XII DATA: Diagnostic tests reviewed for today's visit: Most recent labs and imaging results. Assessment/Plan 1. Intra-abdominal Abscess 2/2 Complicated Diverticulitis - await ID/Sens, currently with ADRIÁN drain and on meropenem. Abscessogram next week per IR. 2. Acute LLE hematoma - large, evaluated by Plastics and non-operative mgmt being pursued. 3. Hypercoag State with Mult DVT/PE - currently on once daily therapeutic Lovenox 4. A/C Blood Loss Anemia - 2/2 #2. Stable H/H, follow. 5. CKF S3 6. Curry's Dz - prednisone 7. PMR/Inflammatory Polyarthritis Medication and Non-Pharmacologic VTE Prophylaxis/Anticoagulants Anticoagulant AND Antiplatelet Medications Start Dose Route Frequency Ordered Stop 10/11/17 1800 enoxaparin 70 mg injection (LOVENOX) 1 mg/kg/dose SUBCUTANEOUS EVERY 24 HOURS 10/11/17 1736 -- 10/08/17 2300 vte non-pharmacologic prophylaxis - none indicated (va,mo) 10/08/17 2300 vte current anticoag therapy ([place]) VTE Prophylaxis: VTE prophylaxis appropriate SIGNATURE: Lory Garces MD PATIENT NAME: Dia Mccullough DATE: October 13, 2017 TIME: 11:11 AM PAGER: Vincent Hilton, RN, RN 10/13/2017 2:45 PM Signed Spoke with Allie Mcallister at [facility]. She will start precert for pt for transfer to her facillity. Misael Wei MD 10/13/2017 5:38 PM Signed October 13, 2017 5:37 PM Infectious Disease Afebrile, denies abdominal pain. Abscess cult- KE group GNB, Clostridium, Khadijah Recent Labs 10/12/17 0635 10/11/17 0431 WBC 7.81 8.18 7.98 HB 7.4* 7.4* 7.4* HCT 24.3* 23.4* 23.4* PLT 224 211 207 CREAT -- 0.94 NEUTNUM 5.87 6.20* LYMPHNUM 1.21 1.13* MONOCYT 0.52 0.46 EOSIN 0.02 0.01 Imp:Abdominal abscess Rec:Continue meropenem Add fluconazole. MD Misael Lyons MD 10/14/2017 12:25 PM Addendum INFECTIOUS DISEASE CONSULT PROGRESS NOTE SERVICE DATE: 10/14/2017 SERVICE TIME: 12:15 PM Subjective INTERVAL HISTORY / PERTINENT Review of Systems Constitutional: Negative for chills and fever. Gastrointestinal: Positive for abdominal pain (improving per pt, still mainly around drain). Current Facility-Administered Medications: fluconazole 400 mg in NaCl (iso-osmotic) 200 mL (DIFLUCAN) 400 mg INTRAVENOUS DAILY acetaminophen 650 mg tab(s) (TYLENOL) 650 mg ORAL q 4 H PRN iv contrast (radiology procedure) INTRAVENOUS DIRECTED PRN enoxaparin 70 mg injection (LOVENOX) 1 mg/kg/dose SUBCUTANEOUS q 24 HR HYDROcodone 5 mg - acetaminophen 325 mg tablet (NORCO) 1 tablet ORAL q 4 H PRN polyethylene glycol 3350 17 g packet (MIRALAX, GLYCOLAX) 17 g ORAL DAILY metoprolol tartrate (short acting) 25 mg tab(s) (LOPRESSOR) 25 mg ORAL q 12 H acetaminophen 650 mg tab(s) (TYLENOL) 650 mg ORAL q 6 H PRN meropenem 1 g in NaCl 0.9% 100 mL MB+ (MERREM) 1 g INTRAVENOUS q 12 H ondansetron orally disintegrating 4 mg tab(s) (ZOFRAN ODT) 4 mg ORAL q 6 H PRN predniSONE 5 mg tab(s) (DELTASONE) 5 mg ORAL BID PC predniSONE 2.5 mg tab(s) (DELTASONE) 2.5 mg ORAL DAILY wDINNER pantoprazole DR 40 mg tab(s) (PROTONIX) 40 mg ORAL DAILY (6 AM) saliva substitute combo no.9 15 mL (BIOTENE mouthwash) 15 mL MUCOUS MEMBRANE (TOPICAL MOUTH AND THROAT) 5X/DAY benzocaine-menthol 1 Lozenge (CEPACOL) 1 Lozenge MUCOUS MEMBRANE (TOPICAL MOUTH AND THROAT) q 2 H PRN 0.9% NaCl 3-5 mL 3-5 mL INTRAVENOUS q 12 H lactated ringers infusion 100 mL/hr INTRAVENOUS CONTINUOUS guaiFENesin 200 mg oral liquid (ROBITUSSIN) 200 mg ORAL QID Objective PHYSICAL EXAM: Vital Signs: BP 153/89 Pulse 98 Temp 37 ?C (98.6 ?F) (Oral) Resp 18 Ht 152.4 cm (5') Wt 70.7 kg (155 lb 13.8 oz) SpO2 99% BMI 30.44 kg/m? Physical Exam Abdominal: There is tenderness (left side). Dark doyle purulent fluid in abscess drain. DATA: Diagnostic Tests Reviewed for Today's Visit: Most recent labs Micro: Abscess culture- Klebsiella pneumoniae, C perfringens, and C albicans. Gm stain also shows GPC. Recent Labs 10/14/17 0510 10/12/17 0635 WBC 10.24* 7.81 HB 7.8* 7.4* HCT 25.3* 24.3* PLT 268 224 NEUTNUM 7.81* 5.87 CREAT 0.95 -- No results found for: VANCORA Impression/Recommendations Principal Problem: Intra-abdominal abscess (HCC) POA: Yes Assessment AND Plan: I recommend continued iv antibiotic therapy at [facility] at least initially. Pt declines, wants to be treated with oral atbs. Discussed at length with her including risk of treatment failure. She understands. Will change to po augmentin, cipro, and fluconazole. Her augmentin reaction was upset stomach, no other allergic symptoms. Could go to [facility] on these. Has follow up abscessogram in Radiology scheduled for 1 week per her report. Will need to stay on atbs until abscess resolved. If discharged, should have FU appt with me in about 4 weeks. D/W [facility]. Resolved Problems: * No resolved hospital problems. * SIGNATURE: Misael Wei MD PATIENT NAME: Dia Mccullough DATE: October 14, 2017 TIME: 12:15 PM PAGER/CONTACT #: [phone] Previous Version Lory Garces MD 10/14/2017 12:52 PM Signed INPATIENT PROGRESS NOTE SERVICE DATE: 10/14/2017 SERVICE TIME: 12:49 PM PRIMARY SERVICE: Sound Subjective CHIEF COMPLAINT: Abd Pain INTERVAL HPI: No CALZADA/CP/SOB/Abd pain Current hospital medications: amoxicillin-clavulanic acid 875 mg tab(s) (AUGMENTIN) 875 mg ORAL q 12 H ciprofloxacin HCl 500 mg tab(s) (CIPRO) 500 mg ORAL q 12 H fluconazole 400 mg tab(s) (DIFLUCAN) 400 mg ORAL DAILY acetaminophen 650 mg tab(s) (TYLENOL) 650 mg ORAL q 4 H PRN iv contrast (radiology procedure) INTRAVENOUS DIRECTED PRN enoxaparin 70 mg injection (LOVENOX) 1 mg/kg/dose SUBCUTANEOUS q 24 HR HYDROcodone 5 mg - acetaminophen 325 mg tablet (NORCO) 1 tablet ORAL q 4 H PRN polyethylene glycol 3350 17 g packet (MIRALAX, GLYCOLAX) 17 g ORAL DAILY metoprolol tartrate (short acting) 25 mg tab(s) (LOPRESSOR) 25 mg ORAL q 12 H acetaminophen 650 mg tab(s) (TYLENOL) 650 mg ORAL q 6 H PRN ondansetron orally disintegrating 4 mg tab(s) (ZOFRAN ODT) 4 mg ORAL q 6 H PRN predniSONE 5 mg tab(s) (DELTASONE) 5 mg ORAL BID PC predniSONE 2.5 mg tab(s) (DELTASONE) 2.5 mg ORAL DAILY wDINNER pantoprazole DR 40 mg tab(s) (PROTONIX) 40 mg ORAL DAILY (6 AM) saliva substitute combo no.9 15 mL (BIOTENE mouthwash) 15 mL MUCOUS MEMBRANE (TOPICAL MOUTH AND THROAT) 5X/DAY benzocaine-menthol 1 Lozenge (CEPACOL) 1 Lozenge MUCOUS MEMBRANE (TOPICAL MOUTH AND THROAT) q 2 H PRN 0.9% NaCl 3-5 mL 3-5 mL INTRAVENOUS q 12 H lactated ringers infusion 100 mL/hr INTRAVENOUS CONTINUOUS guaiFENesin 200 mg oral liquid (ROBITUSSIN) 200 mg ORAL QID Objective PHYSICAL EXAM: BP 153/89 Pulse 98 Temp (Src) 98.6 (Oral) Resp 18 Ht 5' 0 (1.52m) Wt 155 lb 13.8 oz (70.7kg) SpO2 99% BMI 30.44 kg/(m2). Physical Exam Performed GENERAL: Alert, no distress, cooperative SKIN: Skin color, texture, turgor normal. Multiple ecchymoses. EYES: EOMI NECK: No jugulovenous distention, Supple LUNGS: Lungs clear to auscultation, Good diaphragmatic excursion CARDIAC: Normal S1 and S2; no rubs, murmurs, or gallops ABDOMEN: Abdomen soft, non-tender, BS normal, No masses or organomegaly. ADRIÁN drain c/d/i EXTREMITIES: Extensive bruising, LLE wrapped NEURO: Grossly normal cognition, motor function, and cranial nerves III-XII DATA: Diagnostic tests reviewed for today's visit: Most recent labs and imaging results. Assessment/Plan 1. Intra-abdominal Abscess 2/2 Complicated Diverticulitis - Rx with ADRIÁN drain and on meropenem in-house. Patient refuses PICC line and IV anti-biotics despite d/w me and ID. Cx growing Klebsiella, Clostridium, Yeast, and unknown GPC, and ID changed abx to Augmentin, Cipro, and Fluconazole. Rx for at least 4 weeks and through resolution of abscess. Abscessogram next week per IR. F/U with ID one month. ? 2. Acute LLE hematoma - large, evaluated by Plastics and non-operative mgmt being pursued. ? 3. Hypercoag State with Mult DVT/PE - currently on once daily therapeutic Lovenox ? 4. A/C Blood Loss Anemia - 2/2 #2. Stable H/H, follow. ? 5. CKF S3 ? 6. Curry's Dz - prednisone ? 7. PMR/Inflammatory Polyarthritis Medication and Non-Pharmacologic VTE Prophylaxis/Anticoagulants Anticoagulant AND Antiplatelet Medications Start Dose Route Frequency Ordered Stop 10/11/17 1800 enoxaparin 70 mg injection (LOVENOX) 1 mg/kg/dose SUBCUTANEOUS EVERY 24 HOURS 10/11/17 1736 -- 10/08/17 2300 vte non-pharmacologic prophylaxis - none indicated (va,oh) 10/08/17 2300 vte current anticoag therapy (va,mo) VTE Prophylaxis: VTE prophylaxis appropriate SIGNATURE: Lory Garces MD PATIENT NAME: Dia Mccullough DATE: October 14, 2017 TIME: 12:49 PM PAGER: Vincent Hilton, RN, RN 10/14/2017 2:41 PM Signed Spoke with Allie @ [facility]. They cancelled precert for this patient thinking she would not come until next week. Asked that they get new precert. Lory Garces MD 10/14/2017 2:45 PM Signed DISCHARGE SUMMARY PATIENT NAME: Dia Mccullough Admission Information Admission Information ADMIT DATE: 10/08/2017 DISCHARGE DATE: 10/14/2017 MY DOCTORS AND MEDICAL TEAM: My Main Hospital Doctor: Lory Garces Primary Care Provider: Mallorie Wheeler MD My Medical Team Members: Treatment Team: Attending Provider: Lory Garces Primary Service: Julien Castano Consulting: Dar Sorensen Consulting: Zhane Mcgovern III Consulting: Antione Irizarry Consulting: Jj Howell MY CONDITION AT DISCHARGE: Stable REASON I WAS IN THE HOSPITAL: Abd Pain SUMMARY OF WHAT HAPPENED WHILE I WAS IN THE HOSPITAL: You were admitted for abdominal pain and an intra-abdominal abscess. A drain was placed and will stay until the abscess is resolved. Continue anti-biotics until told to stop by Infectious Disease. OTHER PROBLEMS/DIAGNOSIS: Principal Problem: Intra-abdominal abscess (HCC) Active Problems: DVT (deep venous thrombosis) (HCC) Pulmonary emboli (HCC) CKD (chronic kidney disease) stage 3, GFR 30-59 ml/min Venous insufficiency (chronic) (peripheral) Curry disease Traumatic hematoma of left lower leg Leg hematoma, left, initial encounter Resolved Problems: * No resolved hospital problems. * OPERATIONS PERFORMED WHILE IN THE HOSPITAL: None IMPORTANT TEST/PROCEDURES: No procedures performed TEST RESULTS NOT AVAILABLE AT THIS TIME: No pending results Discharge Disposition Discharge Disposition: Correction Facility - Greater than 30 Days Activity When You Leave the Hospital Resume pre-hospital activity Diet Instructions Resume your pre-hospital diet Follow Up Appointments Follow-Up Appointment When: In 4 weeks Misael Wei [phone] [facility] [address] [facility] [id number] PCP Requested Referral Follow-Up Appointment When: In 1 week Mallorie Wheeler [phone] [address] [facility] [id number] PCP Requested Referral Additional Provider to Provider Information: 1. ?Intra-abdominal Abscess 2/2 Complicated Diverticulitis - Rx with ADRIÁN drain and on meropenem in-house. ?Patient refuses PICC line and IV anti-biotics despite d/w me and ID. Cx growing Klebsiella, Clostridium, Yeast, and unknown GPC, and ID changed abx to Augmentin, Cipro, and Fluconazole. Rx for at least 4 weeks and through resolution of abscess. Abscessogram not able to be performed due to insurance reasons at [place], d/w patient, and she would prefer to still go to [place] and get CT scan only even though the study is not as good. F/U with ID one month. ? 2. ?Acute LLE hematoma - large, evaluated by Plastics and non-operative mgmt being pursued. ? 3. ?Hypercoag State with Mult DVT/PE - currently on once daily therapeutic Lovenox ? 4. ?A/C Blood Loss Anemia - 2/2 #2. ?Stable H/H, follow. ? 5. ?CKF S3 ? 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 7. ?PMR/Inflammatory Polyarthritis FOLLOW-UP APPOINTMENTS ALREADY SCHEDULED WITH A [facility] PROVIDER: No future appointments. DISCHARGE MEDICATION: Current Discharge Medication List START taking these medications fluconazole (DIFLUCAN) 400 mg Take 400 mg by mouth once daily. metoprolol tartrate (short acting) (LOPRESSOR) 25 mg Take 25 mg by mouth every 12 hours. polyethylene glycol 3350 (MIRALAX, GLYCOLAX) 17 g Take 17 g by mouth once daily. HYDROcodone-acetaminophen (NORCO) 1 tablet Take 1 tablet by mouth every 4 hours as needed. Earliest Fill Date: 10/14/17 Refills: 0 Associated Diagnoses:Leg hematoma, left, initial encounter; Intra-abdominal abscess (HCC) amoxicillin-clavulanic acid (AUGMENTIN) 875 mg Take 875 mg by mouth twice daily. ciprofloxacin HCl (CIPRO) 500 mg Take 500 mg by mouth twice daily. CONTINUE these medications which have CHANGED enoxaparin (LOVENOX) 70 mg Inject 70 mg subcutaneously q 24 HR. CONTINUE these medications which have NOT CHANGED !! predniSONE (DELTASONE) 2.5 mg Take 2.5 mg by mouth daily before dinner. Omeprazole 40 mg Take 40 mg by mouth once daily. !! predniSONE (DELTASONE) 5 mg Take 5 mg by mouth twice daily. ondansetron orally disintegrating (ZOFRAN ODT) 4 mg Take 4 mg by mouth every 6 hours as needed for Nausea/Vomiting. Qty: 24 tablet Refills: 0 !! - Potential duplicate medications found. Please discuss with provider. STOP taking these medications hydroCHLOROthiazide (HYDRODIURIL, ESIDRIX) 25 mg Comments: Reason for Stopping: TIME OF CARE: Discharge Management: I personally spent greater than 30 minutes involved in the discharge management of this patient. SIGNATURE: Lory Garces MD PAGER/CONTACT #: DATE: October 14, 2017 TIME: 2:43 PM Maty Aceves RN, RN 10/14/2017 6:23 PM Addendum 1822- [facility] has not called back stating if the patient has received precert. RN spoke with Joan body care manager and she states she has not heard anything back from [place]. Patient updated. 1630-Per body care manager Debbie Hilton patients precert is no longer active and states that [facility] is working towards new precert for later today. RN and body care manager updated patient on discharge situation. Previous Version Keya Robles RN, RN 10/15/2017 9:52 AM Signed CARE MANAGEMENT PROGRESS NOTE SERVICE DATE: 10/15/2017 SERVICE TIME:9:49 A.M. Spoke with Allie, staff member at [facility]. They do not have pre-cert at this time so patient is unable to come to them this weekend. The earliest would be Tuesday, if they can obtain if at that time. LOS: 4 days SIGNATURE: Keya Robles RN PATIENT NAME: Dia Mccullough DATE: October 15, 2017 TIME: 9:49 AM PAGER/CONTACT #: [phone] Patsy Kirby MD, MD 10/16/2017 5:52 AM Signed DEPARTMENT OF HOSPITAL MEDICINE PROGRESS NOTE SERVICE DATE: 10/15/2017 SERVICE TIME: 8:18 PM Hospital Medicine/Primary Attending: Patsy Kirby MD Subjective INTERVAL HPI: Pt doing fine, no fever,nausea or vomiting,abdominal pain better.looking forward to therapy at SNF. MEDICATIONS: Reviewed Current Facility-Administered Medications: amoxicillin-clavulanic acid 875 mg tab(s) (AUGMENTIN) 875 mg ORAL q 12 H Misael E Bollin 875 mg at 10/15/172007 ciprofloxacin HCl 500 mg tab(s) (CIPRO) 500 mg ORAL q 12 H Misael E Bollin 500 mg at 10/15/172007 fluconazole 400 mg tab(s) (DIFLUCAN) 400 mg ORAL DAILY Misael E Bollin 400 mg at 10/15/17 0859 acetaminophen 650 mg tab(s) (TYLENOL) 650 mg ORAL q 4 H PRN Phong Rush iv contrast (radiology procedure) INTRAVENOUS DIRECTED PRN Phong Rush enoxaparin 70 mg injection (LOVENOX) 1 mg/kg/dose SUBCUTANEOUS q 24 HR Jose Maria Kyrie 70 mg at 10/15/17 181 HYDROcodone 5 mg - acetaminophen 325 mg tablet (NORCO) 1 tablet ORAL q 4 H PRN Kaycee ([employer]ing Department Supervisor) [place] 1 tablet at 10/15/17 0857 polyethylene glycol 3350 17 g packet (MIRALAX, GLYCOLAX) 17 g ORAL DAILY Jose Maria Kyrie 17 g at 10/13/17 0828 metoprolol tartrate (short acting) 25 mg tab(s) (LOPRESSOR) 25 mg ORAL q 12 H Jose Maria Kyrie 25 mg at 10/15/172007 acetaminophen 650 mg tab(s) (TYLENOL) 650 mg ORAL q 6 H PRN Callie Castle ondansetron orally disintegrating 4 mg tab(s) (ZOFRAN ODT) 4 mg ORAL q 6 H PRN Gold Clemens predniSONE 5 mg tab(s) (DELTASONE) 5 mg ORAL BID PC Gold Lyonon 5 mg at 10/15/17 1241 predniSONE 2.5 mg tab(s) (DELTASONE) 2.5 mg ORAL DAILY wDINNER Gold Clemens 2.5 mg at 10/15/[address] 40 mg tab(s) (PROTONIX) 40 mg ORAL DAILY (6 AM) Gold Clemens 40 mg at 10/15/17 0528 saliva substitute combo no.9 15 mL (BIOTENE mouthwash) 15 mL MUCOUS MEMBRANE (TOPICAL MOUTH AND THROAT) 5X/DAY Gold Clemens 15 mL at 10/14/17 0817 benzocaine-menthol 1 Lozenge (CEPACOL) 1 Lozenge MUCOUS MEMBRANE (TOPICAL MOUTH AND THROAT) q 2 H PRN Gold Clemens 0.9% NaCl 3-5 mL 3-5 mL INTRAVENOUS q 12 H Gold Clemens 3 mL at 10/15/172007 lactated ringers infusion 100 mL/hr INTRAVENOUS CONTINUOUS Gold Clemens Last Rate: 100 mL/hr at 10/15/17 0045 100 mL/hr at 10/15/17 004 guaiFENesin 200 mg oral liquid (ROBITUSSIN) 200 mg ORAL QID Gold Clemens 200 mg at 10/15/17 0858 Objective PHYSICAL EXAM: BP 138/80 Pulse 108 Temp (Src) 98.4 (Oral) Resp 18 Ht 5' 0 (1.52m) Wt 155 lb 13.8 oz (70.7kg) SpO2 98% BMI 30.44 kg/(m2). Physical Exam Performed GENERAL: Alert, no acute distress, cooperative SKIN: Skin color, texture, turgor normal. Multiple ecchymoses over upper arms bilaterally noted EYES: EOMI NECK: No jugulovenous distention, Supple LUNGS: Lungs clear to auscultation, symmetrical expansion CARDIAC: Normal S1 and S2; no murmurs heard. ABDOMEN: Abdomen soft, non-tender, BS normal, No masses palpable ?ADRIÁN drain c/d/i EXTREMITIES: Extensive bruising, LLE wrapped NEURO: Grossly normal cognition, motor function, DATA: Diagnostic tests reviewed for today's visit: Most recent labs and imaging results. CBC, Coags, BMP, Mg, Phos Recent Labs 10/15/17 2236 10/14/17 0510 WBC 12.59* 10.24* HB 8.2* 7.8* HCT 27.0* 25.3* PLT 284 268 NA 139 139 K 5.0 4.3 CHLOR 107 108* CO2 29 27 BUN 21* 17 CREAT 1.36* 0.95 GLUC 132* 97 CA 8.7 8.5 Active Hospital Problems Diagnosis Date Noted - Intra-abdominal abscess (HCC) 10/08/2017 - Traumatic hematoma of left lower leg 10/08/2017 - Leg hematoma, left, initial encounter 10/08/2017 - Curry disease Chronic - Venous insufficiency (chronic) (peripheral) - CKD (chronic kidney disease) stage 3, GFR 30-59 ml/min 11/28/2014 - Pulmonary emboli (HCC) 01/30/2014 Overview Note: clinically resolved - DVT (deep venous thrombosis) ([facility]) 01/08/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 ?Intra-abdominal Abscess 2/2 Complicated Diverticulitis - Rx?with ADRIÁN drain and on meropenem in-house. ?Patient refuses PICC line and IV anti-biotics despite d/w me and ID. ?Cx growing Klebsiella, Clostridium, Yeast, and unknown GPC, and ?ID changed abx to Augmentin, Cipro, and Fluconazole. ?Rx for at least 4 weeks and through resolution of abscess. ?Abscessogram not able to be performed due to insurance reasons at [place], d/w patient, and she would prefer to still go to [place] and get CT scan only even though the study is not as good. ?F/U with ID one month. ? 2. ?Acute LLE hematoma - large, evaluated by Plastics and non-operative mgmt being pursued. ? 3. ?Hypercoag State with Mult DVT/PE - currently on once daily therapeutic Lovenox ? 4. ?A/C Blood Loss Anemia - 06/17 #2. ?Stable H/H, follow. ? 5. ?CKF S3 ? 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 ? 7. ?PMR/Inflammatory Polyarthritis Medication and Non-Pharmacologic VTE Prophylaxis/Anticoagulants Anticoagulant AND Antiplatelet Medications Start Dose Route Frequency Ordered Stop 10/14/17 0000 enoxaparin (LOVENOX) 80 mg/0.8 mL syrg 1 mg/kg/dose SUBCUTANEOUS EVERY 24 HOURS 10/14/17 1443 -- 10/11/17 1800 enoxaparin 70 mg injection (LOVENOX) 1 mg/kg/dose SUBCUTANEOUS EVERY 24 HOURS 10/11/17 1736 -- 10/08/17 2300 vte non-pharmacologic prophylaxis - none indicated (va,mo) 10/08/17 2300 vte current anticoag therapy ([place]) Disposition: SNF,pending precert Plan of care discussed with: Patient and RN SIGNATURE: Patsy Kirby MD PATIENT NAME: Dia Mccullough DATE: October 15, 2017 TIME: 8:18 PM PAGER/CONTACT #: monica castano etx [phone] Patsy Kirby MD, MD 10/17/2017 3:57 AM Signed DEPARTMENT OF HOSPITAL MEDICINE PROGRESS NOTE SERVICE DATE: 10/16/2017 SERVICE TIME: 10:00 PM Hospital Medicine/Primary Attending: Patsy Kirby MD Subjective INTERVAL HPI: Doing fine, abdominal pain and leg pain is better,pt eager to participate in PT,no fever,chills,chest pain,sob MEDICATIONS: Reviewed Current Facility-Administered Medications: melatonin 3 mg tab(s) 3 mg ORAL AT BEDTIME Kaycee ([facility]) [place] amoxicillin-clavulanic acid 875 mg tab(s) (AUGMENTIN) 875 mg ORAL q 12 H Misael E Bollin 875 mg at 10/16/172116 ciprofloxacin HCl 500 mg tab(s) (CIPRO) 500 mg ORAL q 12 H Misael E Bollin 500 mg at 10/16/172116 fluconazole 400 mg tab(s) (DIFLUCAN) 400 mg ORAL DAILY Misael E Bollin 400 mg at 10/16/17 0849 acetaminophen 650 mg tab(s) (TYLENOL) 650 mg ORAL q 4 H PRN Phong Rush iv contrast (radiology procedure) INTRAVENOUS DIRECTED PRN Phong Rush enoxaparin 70 mg injection (LOVENOX) 1 mg/kg/dose SUBCUTANEOUS q 24 HR Jose Maria Kyrie 70 mg at 10/16/17 1710 HYDROcodone 5 mg - acetaminophen 325 mg tablet (NORCO) 1 tablet ORAL q 4 H PRN Kaycee ([facility]) [place] 1 tablet at 10/15/17 0857 polyethylene glycol 3350 17 g packet (MIRALAX, GLYCOLAX) 17 g ORAL DAILY Jose Maria Kyrie 17 g at 10/13/17 0828 metoprolol tartrate (short acting) 25 mg tab(s) (LOPRESSOR) 25 mg ORAL q 12 H Jose Maria Kyrie 25 mg at 10/16/17 2117 acetaminophen 650 mg tab(s) (TYLENOL) 650 mg ORAL q 6 H PRN Callie Castle ondansetron orally disintegrating 4 mg tab(s) (ZOFRAN ODT) 4 mg ORAL q 6 H PRN Gold Clemens predniSONE 5 mg tab(s) (DELTASONE) 5 mg ORAL BID PC Gold Clemens 5 mg at 10/16/17 1235 predniSONE 2.5 mg tab(s) (DELTASONE) 2.5 mg ORAL DAILY wDINNER Gold Clemens 2.5 mg at 10/16/[address] 40 mg tab(s) (PROTONIX) 40 mg ORAL DAILY (6 AM) Gold Clemens 40 mg at 10/16/17 0546 saliva substitute combo no.9 15 mL (BIOTENE mouthwash) 15 mL MUCOUS MEMBRANE (TOPICAL MOUTH AND THROAT) 5X/DAY Gold Clemens 15 mL at 10/14/17 0817 benzocaine-menthol 1 Lozenge (CEPACOL) 1 Lozenge MUCOUS MEMBRANE (TOPICAL MOUTH AND THROAT) q 2 H PRN Gold Clemens 0.9% NaCl 3-5 mL 3-5 mL INTRAVENOUS q 12 H Gold Clemens 3 mL at 10/16/17 2118 lactated ringers infusion 100 mL/hr INTRAVENOUS CONTINUOUS Gold Clemens Last Rate: 100 mL/hr at 10/15/17 0045 100 mL/hr at 10/15/17 0045 guaiFENesin 200 mg oral liquid (ROBITUSSIN) 200 mg ORAL QID Gold Clemens 200 mg at 10/16/17 0849 Objective PHYSICAL EXAM: BP 139/71 Pulse 113 Temp (Src) 98.1 (Oral) Resp 18 Ht 5' 0 (1.52m) Wt 155 lb 13.8 oz (70.7kg) SpO2 98% BMI 30.44 kg/(m2). Physical Exam Performed GENERAL: Alert, no acute distress, cooperative SKIN: Dry and normal. Multiple ecchymoses over upper arms bilaterally noted EYES: EOMI,anicteric sclerae NECK: No jugulovenous distention, Supple LUNGS: Lungs clear to auscultation, symmetrical expansion CARDIAC: Normal S1 and S2; no murmurs heard. ABDOMEN: Abdomen soft, non-tender, BS normal, No masses palpable ?ADRIÁN drain c/d/i EXTREMITIES: Extensive bruising, LLE wrapped NEURO: Grossly normal cognition, motor function, DATA: Diagnostic tests reviewed for today's visit: Most recent labs and imaging results. CBC, Coags, BMP, Mg, Phos Recent Labs 10/15/17 2236 10/14/17 0510 WBC 12.59* 10.24* HB 8.2* 7.8* HCT 27.0* 25.3* PLT 284 268 NA 139 139 K 5.0 4.3 CHLOR 107 108* CO2 29 27 BUN 21* 17 CREAT 1.36* 0.95 GLUC 132* 97 CA 8.7 8.5 Assessment/Plan 1. ?Intra-abdominal Abscess 2/2 Complicated Diverticulitis - Rx?with ADRIÁN drain and on meropenem in-house. ?Patient refuses PICC line and IV anti-biotics despite d/w me and ID. ?Cx growing Klebsiella, Clostridium, Yeast, and unknown GPC, and ?ID changed abx to Augmentin, Cipro, and Fluconazole. ?Rx for at least 4 weeks and through resolution of abscess. ?Abscessogram not able to be performed due to insurance reasons at [place], d/w patient, and she would prefer to still go to [place] and get CT scan only even though the study is not as good. ?F/U with ID one month. ? 2. ?Acute LLE hematoma - large, evaluated by Plastics and non-operative mgmt being pursued. ? 3. ?Hypercoag State with Mult DVT/PE - currently on once daily therapeutic Lovenox ? 4. ?A/C Blood Loss Anemia - 2/2 #2. ?Stable H/H, follow. ? 5. ?CKD stage 3-stable 6.Deconditioning-PT,OT Medication and Non-Pharmacologic VTE Prophylaxis/Anticoagulants Anticoagulant AND Antiplatelet Medications Start Dose Route Frequency Ordered Stop 10/14/17 0000 enoxaparin (LOVENOX) 80 mg/0.8 mL syrg 1 mg/kg/dose SUBCUTANEOUS EVERY 24 HOURS 10/14/17 1443 -- 10/11/17 1800 enoxaparin 70 mg injection (LOVENOX) 1 mg/kg/dose SUBCUTANEOUS EVERY 24 HOURS 10/11/17 1736 -- 10/08/17 2300 vte non-pharmacologic prophylaxis - none indicated (va,mo) 10/08/17 2300 vte current anticoag therapy ([place], [place]) Disposition: SNF,pending precert Plan of care discussed with: Patient and RN SIGNATURE: Patsy Kirby MD PATIENT NAME: Dia cMcullough DATE: October 16, 2017 TIME: 10:00 PM PAGER/CONTACT #: monica castano etx [id number] CBC W/DIFF, AUTOMATED Collected: 09/29/2017 Status: F Source: HOOD 5:05 AM [facility] REPOSITORY TYPE CODE TESTS RESULT OUT OF RANGE REFERENCE UNITS LAB L100.1000 4.4-11.0 K/mm3 Normal WBC 8.3 LAB L100.1200 4.2-5.4 M/mm3 Low RBC 3.23 LAB L100.1300 12.0-15.0 g/dl Low HGB 9.8 LAB L100.1400 37-47 % Low HCT 32.9 LAB L100.1500 81-99 fL High MCV 101.9 LAB L100.1600 27.0-32.0 pg Normal MCH 30.3 LAB L100.1700 32-36 g/gl Low MCHC 29.8 LAB L100.1810 11.6-14.6 % High RDW CV 20.6 LAB L100.1820 35.1-43.9 fl High RDW SD 76.0 LAB L100.1900 150-450 K/mm3 Normal PLT 378 LAB L100.2000 6.2-12.0 fl Normal MPV 9.4 LAB L100.2100 47-70 % High NEUT% 71.7 LAB L100.2200 19-41 % Low LY% 16.6 LAB L100.2300 0-10 % Normal MONO% 9.6 LAB L100.2400 0-5 % Normal EO% 1.3 LAB L100.2500 0-1 % Normal BASO% 0.2 LAB L100.2550 0.0-0.9 % Normal IM GRAN % 0.600 Result Comment: IG% - Immature Granulocytes (promyelocytes, myelocytes and metamyelocytes) > 1% indicates that a LEFT SHIFT is Present. LAB L100.2620 2.0-7.7 X10 3/uL Normal Absolute Neut 6.0 LAB L100.2720 0.83-4.51 X10 3/ul Normal Absolute Lymph 1.38 LAB L100.4500 SMEAR Normal COMMENT SCANNED LAB L100.7300 ANISO Normal 3+ LAB L100.7800 Normal MACROCYTE 2+ Performed By: #### L100.0100 #### [facility] [address] [place], [address] BASIC METABOLIC Collected: 09/29/2017 Status: F Source: HOOD PROFILE ([facility]) 5:05 AM [facility] REPOSITORY TYPE CODE TESTS RESULT OUT OF RANGE REFERENCE UNITS LAB L501.0100 74-106 mg/dL Normal GLU 89 Result Comment: Please note revised GLUCOSE reference range effective 2017. LAB L501.1000 7-18 mg/dL High BUN 23 LAB L501.1100 0.55-1.02 mg/dL High CREAT,SERUM 1.13 Result Comment: The validity of the calculated GFR AND GFRAA in patients over 70 years has not been determined. Clinical correlation is essential. LAB L501.1110 >60 mL/min Low EST GFR 50 Result Comment: Non- GFR Calc LAB L501.1115 >60 mL/min Normal EST GFR - AA 60 Result Comment: GFR Calc LAB L501.1255 ml/min Normal Estimated CRCL 43.19 LAB L501.1300 10-20 RATIO High BUN/CRE 20.4 LAB L501.2200 8.5-10 mg/dL Normal .1 CA 8.6 LAB L501.5300 136-14 mmol/L Normal 5 NA 144 LAB L501.5600 3.5-5. mmol/L Normal 1 K 4.2 Result Comment: Slight Hemolysis, Result may be falsely increased. LAB L501.5900 98-107 mmol/L High CL 109 LAB L501.6100 21.0-32.0 mmol/L Normal CO2 27.0 LAB L501.6200 5-15 Normal 8 GAP Performed By: #### L500.2500 #### [facility] [address], [address] DISCHARGE SUMMARY Observed: 09/27/2017 Status: F Source: HOOD 9:27 PM [facility] REPOSITORY [facility] Medical Records Department [address] [place] [address] Discharge Summary 09/27/172124 MR#: [id number] Acct: [id number] Name: DIA MCCULLOUGH Rep #: [id number] : 1940 77 From: Alejo Ortega MD PCP: OUT OF TOWN DOCTOR Status: ADM IN Y [facility] Discharge Date and Diagnosis - Problem List Patient Problems: Active and Suspected Problems Debility (Acute) Date of Admission: 09/21/17 Date of Discharge: 09/30/17 - Primary Discharge Diagnosis Active and Suspected Problems Debility (Acute) - Secondary Discharge Diagnosis Chronic Problems Osteoarthritis (Chronic) Low back pain (Chronic) Allergic rhinitis (Chronic) Anxiety (Chronic) GERD (gastroesophageal reflux disease) (Chronic) History of bowel perforation (Chronic) History of GI bleed (Chronic) History of pulmonary embolism (Chronic) Chronic anemia (Chronic) Stage III chronic kidney disease (Chronic) Addisons disease (Chronic) Hospital Course and Treatment Imaging Results: 09/22/17 06:17 Diet: Regular Diet Is pt able to select menu?: Yes Operations: None Procedures: None Summary of Care Provided: The patient is a 77 year old Female with below past medical history hospitalized for bilateral lower extremity DVT, bilateral pulmonary embolism, treated with LMWH, NOAC avoided due to recent GI bleed, Venofer given for iron deficiency anemia, admitted to TCU with debility, here for rehabilitation, strengthening, prior to discharge home. Discharge to [facility] living for respite stay, resident looking for an apartment to move to to live independently. Discharge Diet: No Restrictions Discharge Activity: Return to Normal Activity, May Shower, Use Walker Weight Bearing Status: Weight bearing as tolerated Call your doctor if you observe: Fever of 101 or Higher, Inability to urinate, Inability to have a bowel movement, Shortness of breath, Chest pain, Uncontrolled pain Home Medications: Medications to take at Discharge Fluticasone 0.05% [Flonase Nasal Coleman] 1 spray NASAL PRN PRN 09/18/17 Omeprazole [Prilosec] 20 mg PO DAILY 09/18/17 Prednisone 5 mg PO BID 09/18/17 Loratadine [Claritin] 10 mg PO DAILY 09/21/17 Lorazepam [Ativan] 0.5 mg PO QHS #5 tab 09/21/17 Acetaminophen [Tylenol] 1,000 mg PO Q8H PRN PRN tablet 09/27/17 Enoxaparin [Lovenox] 70 mg SC Q12 #60 syringe 09/27/17 Guaifenesin Dm [Robitussin Dm] 10 ml PO Q6H PRN PRN udc 09/27/17 Iron Polysaccharide Complex [Ferrex 150] 150 mg PO DAILYCM #30 cap 09/27/17 Melatonin 10 mg PO QHS tablet 09/27/17 Menthol/Lanolin/Calamine/Znox [Calmoseptine Ointment] 1 applic TOPICAL 0600,2200 tube 09/27/17 Following Prescrptions Were Given to Patient: Enoxaparin [Lovenox] 70 mg SC Q12 #60 syringe Iron Polysaccharide Complex [Ferrex 150] 150 mg PO DAILYCM #30 cap Primary Care Physician: Moreno Hook,Out of [Primary Care Provider] - Please follow up with your Primary Care Physician in: 1 week. Disposition: Asstd Living/Non-Skill NH Minutes spent on discharge:: 30 Patient Condition:: Stable Medical Necessity - Tobacco Use Smoking Status: Never smoker Tobacco Use: Non-smoker Meaningful Use Info Meaningful Use Diagnoses (Choose all that apply): VTE - VTE Anticoag overlap given w/in hospital stay or rx'd at dc?: No Reason overlap not ordered, prescribed, or given for 5 days: Treatment Not Indicated 09/27/172126 <Electronically signed by Alejo Ortega MD> Date Alejo Ortega MD Cosigner Signature (if applicable): Date CC: OUT OF TOWN DOCTOR; Alejo Ortega MD Signed DISCHARGE INSTRUCTION Observed: 09/27/2017 Status: F Source: HOOD 9:25 PM [facility] REPOSITORY [facility] Medical Records Department [address] [place] [address] Instructions for Home/Discharge Instructions 09/27/172121 MR#: [id number] Acct: [id number] Name: DIA MCCULLOUGH Rep #: [id number] : 1940 77 From: Alejo Ortega MD PCP: OUT OF TOWN DOCTOR Status: ADM IN - Discharge Diagnoses Current Active Problems: Current Active and Chronic Problems Debility (Acute) Osteoarthritis (Chronic) Low back pain (Chronic) Allergic rhinitis (Chronic) Anxiety (Chronic) GERD (gastroesophageal reflux disease) (Chronic) You will use the following diet at home:: No restrictions, Regular Your food should be the consistency of: Regular Your liquids should be the consistency of: Regular/Thin Discharge Activity: Return to Normal Activity, May Shower, Use Walker Weight Bearing Status: Weight bearing as tolerated Call your doctor if you observe: Fever of 101 or Higher, Inability to urinate, Inability to have a bowel movement, Shortness of breath, Chest pain, Uncontrolled pain Allergies/Adverse Reactions: Allergies amoxicillin trihydrate [From Augmentin] Adverse Reaction (Verified 09/18/17 22:10) Upset Stomach diclofenac sodium [From Arthrotec] Adverse Reaction (Verified 09/18/17 22:10) Upset Stomach doxycycline Adverse Reaction (Verified 09/18/17 22:10) Upset Stomach erythromycin base Adverse Reaction (Verified 09/18/17 22:10) Upset Stomach etodolac [From Lodine] Adverse Reaction (Verified 09/18/17 22:10) Upset Stomach flurbiprofen [From Ansaid] Adverse Reaction (Verified 09/18/17 22:10) Upset Stomach misoprostol [From Arthrotec] Adverse Reaction (Verified 09/18/17 22:10) Upset Stomach NSAIDS (Non-Steroidal Anti-Inflamma Adverse Reaction (Verified 09/18/17 22:10) Other potassium clavulanate [From Augmentin] Adverse Reaction (Verified 09/18/17 22:10) Upset Stomach rofecoxib [From Vioxx] Adverse Reaction (Verified 09/18/17 22:10) Upset Stomach Medications to take at Discharge Fluticasone 0.05% [Flonase Nasal Coleman] 1 spray NASAL PRN PRN 09/18/17 Omeprazole [Prilosec] 20 mg PO DAILY 09/18/17 Prednisone 5 mg PO BID 09/18/17 Loratadine [Claritin] 10 mg PO DAILY 09/21/17 Lorazepam [Ativan] 0.5 mg PO QHS #5 tab 09/21/17 Acetaminophen [Tylenol] 1,000 mg PO Q8H PRN PRN tablet 09/27/17 Enoxaparin [Lovenox] 70 mg SC Q12 #60 syringe 09/27/17 Guaifenesin Dm [Robitussin Dm] 10 ml PO Q6H PRN PRN udc 09/27/17 Iron Polysaccharide Complex [Ferrex 150] 150 mg PO DAILYCM #30 cap 09/27/17 Melatonin 10 mg PO QHS tablet 09/27/17 Menthol/Lanolin/Calamine/Znox [Calmoseptine Ointment] 1 applic TOPICAL 0600,2200 tube 09/27/17 The following prescriptions were given: Enoxaparin [Lovenox] 70 mg SC Q12 #60 syringe Iron Polysaccharide Complex [Ferrex 150] 150 mg PO DAILYCM #30 cap Primary Care Physician: [facility] Doctor,Out of [Primary Care Provider] - Please follow up with your Primary Care Physician in: 1 week. Proposed Discharge Date: 09/30/17 09/27/172124 <Electronically signed by Alejo Ortega MD> Date Alejo Ortega MD CC: OUT OF [facility] DOCTOR CBC W/DIFF, AUTOMATED Collected: 09/22/2017 Status: C Source: ANNMARIE 5:10 AM [facility] REPOSITORY TYPE CODE TESTS RESULT OUT OF REFERENCE UNITS RANGE LAB L100.1000 4.4-11.0 K/mm3 WBC Normal 8.4 LAB L100.1200 4.2-5.4 M/mm3 Low RBC 3.13 LAB L100.1300 12.0-15.0 g/dl Low HGB 9.4 LAB L100.1400 37-47 % Low HCT 30.8 LAB L100.1500 81-99 fL MCV Normal 98.4 LAB L100.1600 27.0-32.0 pg MCH Normal 30.0 LAB L100.1700 32-36 g/gl Low MCHC 30.5 LAB L100.1810 11.6-14.6 % RDW CV High 18.7 LAB L100.1820 35.1-43.9 fl RDW SD High 63.0 LAB L100.1900 150-450 K/mm3 PLT Normal 299 LAB L100.2000 6.2-12.0 fl MPV Normal 9.2 LAB L100.3100 MANUAL DIFF CELLS COUNTED Normal 100 LAB L100.3200 47-70 % SEGS High 78 LAB L100.3300 0-5 % BAND Normal 1 LAB L100.3400 0-1 % META Normal 1 LAB L100.3800 19-41 % Low LYMPH 15 LAB L100.3900 0-10 % MONOCYTE Normal 4 LAB L100.4000 0-5 % EOS Normal 1 LAB L100.4400 0-5 % NRBC,MANUAL CT Normal 1 LAB L100.5500 ADEQ PLT EST Normal ADEQUATE LAB L100.7300 ANISO Normal 1+ LAB L100.7500 POLYCHROMASIA Normal 1+ LAB L100.7600 HYPOCHROMASIA Normal 1+ LAB L100.2620 2.0-7.7 X10 3/uL Absolute Neut Normal 6.6 LAB L100.2720 0.83-4.51 X10 3/ul Absolute Lymph Normal 1.26 LAB L100.9900 PATH REV Normal Reviewed Result Comment: Normocytic anemia. Clinical correlation suggested. Sergey Santizo D.O. 09/22/17 AMENDED REPORT 09/22/17 1239 PATH REV previously reported as: September atla Performed By: #### L100.0100 #### [facility] [address] [place], [address] BASIC METABOLIC Collected: 09/22/2017 Status: F Source: HOOD PROFILE (BMP) 5:10 AM [facility] REPOSITORY TYPE CODE TESTS RESULT OUT OF RANGE REFERENCE UNITS LAB L501.0100 74-106 mg/dL Normal GLU 83 Result Comment: Please note revised GLUCOSE reference range effective 2017. LAB L501.1000 7-18 mg/dL Normal BUN 12 LAB L501.1100 0.55-1.02 mg/dL Normal CREAT,SERUM 1.00 Result Comment: The validity of the calculated GFR AND GFRAA in patients over 70 years has not been determined. Clinical correlation is essential. LAB L501.1110 >60 mL/min Low EST GFR 57 Result Comment: Non- GFR Calc LAB L501.1115 >60 mL/min Normal EST GFR - AA 69 Result Comment: GFR Calc LAB L501.1255 ml/min Normal Estimated CRCL 52.33 LAB L501.1300 10-20 RATIO Normal BUN/CRE 12.0 LAB L501.2200 8.5-10 mg/dL Low .1 CA 8.1 LAB L501.5300 136-14 mmol/L High 5 NA 146 LAB L501.5600 3.5-5. mmol/L Normal 1 K 3.5 LAB L501.5900 98-107 mmol/L High CL 112 LAB L501.6100 21.0-3 mmol/L Normal 2.0 CO2 27.0 LAB L501.6200 5-15 Normal GAP 7 Performed By: #### L500.2500 #### [facility] [address] [place], [address] HISTORY AND PHYSICAL Observed: 09/21/2017 Status: F Source: HOOD EXAM 9:20 PM [facility] REPOSITORY [facility] Medical Records Department [address] [place] [address] History and Physical 09/21/172055 MR#: [id number] Acct: [id number] Name: DIA MCCULLOUGH Rep #: [id number] : 1940 77 From: Alejo Ortega MD PCP: OUT OF TOWN DOCTOR Status: ADM IN Y Location: [place] [address] Problem List (1) Debility Status: Acute (2) Osteoarthritis Status: Chronic (3) Low back pain Status: Chronic (4) Allergic rhinitis Status: Chronic (5) Anxiety Status: Chronic (6) GERD (gastroesophageal reflux disease) Status: Chronic (7) Pulmonary emboli Status: Acute (8) DVT (deep venous thrombosis) Status: Acute (9) History of bowel perforation Status: Chronic (10) History of GI bleed Status: Chronic (11) Chronic anemia Status: Chronic (12) Stage III chronic kidney disease Status: Chronic (13) Addisons disease Status: Chronic History of Present Illness Date of Admission: 09/21/17 Chief Complaint: Here for rehabilitation, strengthening, prior to discharge home. The patient is a 77 year old Female with below past medical history presented to [facility] Emergency Department 09/18/2017 with bilateral lower extremity DVT. 09/18/2017 EKG sinus tachycardia, left axis deviation. Resident at [facility], BUSINESS [employer]AIR ordered doppler ultrasound of legs positive for bilateral lower extremity DVT. History of DVT, PE. Previously on coumadin, stopped 08/24/2017 due to bowel perforation, sepsis. Resident was at [facility] and refused surgery, she was referred to hospice. Patient graduated hospice when she did not of GI bleed. Transfused 2 units PRBC 1 day prior to [facility] Emergency Department, felt better after transfusion. Hemoglobin 10.2, Cr 1.28, INR 1.2, Troponin negative. IV fluids given. CTA chest showed multiple bilateral pulmonary emboli. Heparin drip started. 09/18/2017 Admit to Hospital. Lovenox twice daily for DVT/PE. Coumadin, NOAC avoided due to recent GI bleed. Protonix twice daily for GI bleed. IV venofer given for iron deficiency anemia. Oxygen weaned off. 09/21/2017 Admit to TCU for rehabilitation, strengthening, prior to discharge home. Past Medical History Past Medical History (Chronic Problems): Chronic Problems Osteoarthritis (Chronic) Low back pain (Chronic) Allergic rhinitis (Chronic) Anxiety (Chronic) GERD (gastroesophageal reflux disease) (Chronic) History of bowel perforation (Chronic) History of GI bleed (Chronic) History of pulmonary embolism (Chronic) Chronic anemia (Chronic) Stage III chronic kidney disease (Chronic) Addisons disease (Chronic) Allergies amoxicillin trihydrate [From Augmentin] Adverse Reaction (Verified 09/18/17 22:10) Upset Stomach diclofenac sodium [From Arthrotec] Adverse Reaction (Verified 09/18/17 22:10) Upset Stomach doxycycline Adverse Reaction (Verified 09/18/17 22:10) Upset Stomach erythromycin base Adverse Reaction (Verified 09/18/17 22:10) Upset Stomach etodolac [From Lodine] Adverse Reaction (Verified 09/18/17 22:10) Upset Stomach flurbiprofen [From Ansaid] Adverse Reaction (Verified 09/18/17 22:10) Upset Stomach misoprostol [From Arthrotec] Adverse Reaction (Verified 09/18/17 22:10) Upset Stomach NSAIDS (Non-Steroidal Anti-Inflamma Adverse Reaction (Verified 09/18/17 22:10) Other potassium clavulanate [From Augmentin] Adverse Reaction (Verified 09/18/17 22:10) Upset Stomach rofecoxib [From Vioxx] Adverse Reaction (Verified 09/18/17 22:10) Upset Stomach Home Medications: Ambulatory Orders Medication Instructions Recorded Fluticasone 0.05% [Flonase Nasal 1 spray NASAL PRN PRN 09/18/17 Surgical History: total knee arthroplasty, - - Back surgery. 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 Denies: Chills, Fever, Weight Change HEENT: Denies: Head Aches, Sinus Congestion, Sinus Drainage Cardiovascular: Denies: Chest Pain, Palpitations Respiratory: Denies: Cough, Shortness of breath at rest, Sputum production Gastrointestinal: Denies: Abdominal Pain, Nausea, Vomiting Genitourinary: Denies: Dysuria Musculoskeletal: Denies: Joint Pain, Joint Tenderness Skin: Denies: Rash, Wounds Neurological: Denies: Numbness, Tingling, Focal weakness Psychiatric: Denies: Anxiety, Depression, Homicidal Ideations, Suicidal Ideations Hematologic/ Lymphatic: Denies: Easy Bruising, Easy Bleeding VTE Information - Inpt Only VTE Present on Admission: No VTE Mechan Device Prophylaxis: Knee High EMILIANO Hose VTE Pharm Prophylaxis ordered?: No Reason prophylaxis not ordered:: Treatment Not Indicated Patient Problems: Active and Suspected Problems Debility (Acute) - Physical Exam General: Alert, Oriented x3, Cooperative HEENT: Atraumatic, PERRLA, EOMI, Normocephalic Neck: Supple, No JVD, Negative Carotid Bruits Lungs: Clear to auscultation, Normal air movement Cardiovascular: Regular rate, No murmurs Abdomen: Bowel Sounds Present, Soft, Non Tender Extremities: No edema, Capillary Refill Less than 3 Seconds Skin: No rashes, No breakdown Musculoskeletal: No Tenderness to Palpation of Joints or Extremities Neurological: Cranial nerves II-XII grossly intact Psych/Mental Status: Normal Affect, Appropriate Vital Signs Temp Pulse Resp BP Pulse Ox 98.7 F 108 H 20 H 160/85 H 98 09/21/17 17:14 09/21/17 17:14 09/21/17 17:14 09/21/17 17:14 09/21/17 17:14 Oxygen Delivery Method Room Air Weight: 71.5 kg Body Mass Index (BMI) 31.8 Intake and Output for Last 24 Hours Intake Total 120 / 120 Balance 120 / 120 Assessment/Plan Active and Suspected Problems Debility (Acute) 77 year old female with below past medical history hospitalized for bilateral lower extremity DVT, bilateral pulmonary embolism, treated with LMWH, NOAC avoided due to recent GI bleed, Venofer given for iron deficiency anemia, admitted to TCU with debility, here for rehabilitation, strengthening, prior to discharge home. * Debility - PT/OT. * Pain - Tylenol 1000MG Q8H PRN mild pain. * Bowel - Miralax 17GM daily, Senna/colace 1 tablet BID, Dulcolax 10MG GA daily PRN. * Pneumonia vaccination - Administer Prevnar 13 and/or Pneumovax 23 as necessary. * DVT prophylaxis - Not necessary, already on Lovenox. * Skin irritation - Eucerin BID bilateral lower extremities, Calmoseptine BID coccyx. * DVT/PE - Lovenox 70MG SC Q12H indefinitely, change to NOAC once GI bleed resolved, she should be anticoagulated indefinitely. * Nutrition - Ensure Enlive 120ML 4x/day. * Allergic rhinitis - Loratadine 10MG daily, Flonase 1 spray PRN. 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 * Hypertension - Metoprolol 12.5MG BID. * GERD - Pantoprazole 20MG daily. * Curry - Prednisone 5MG BID. 09/21/172119 <Electronically signed by Alejo Ortega MD> Date Alejo Ortega MD Cosigner Signature: Date (if applicable) CC: OUT OF TOWN DOCTOR; Alejo Ortega MD Signed DISCHARGE SUMMARY Observed: 09/21/2017 Status: F Source: HOOD 4:00 PM [facility] REPOSITORY [facility] Medical Records Department [address] [place] [address] Discharge Summary 09/21/17 1523 MR#: [id number] Acct: [id number] Name: DIA MCCULLOUGH Rep #: [id number] : 1940 77 From: Philippe DUNCAN PCP: OUT OF TOWN DOCTOR Status: ADM IN Y [id number] ADDENDUM by Mansoor Llamas MD on 09/21/17 at 1559 Code Visit This patient was seen in conjunction with Philippe DUNCAN. I have independently interviewed and examined the patient and reviewed pertinent history, examination findings, laboratory and plan of management. I have reviewed the note and agree with the documented findings with the few additional points. Patient was seen and examined today. Please see progress note. Discharge medication reconciliation done. Patient is discharged on Lovenox. Follow-up CBC every third day to see drop in H AND H we have GI bleed and severe anemia but needs anticoagulation as far she can tolerate with history of recurrent DVT and PE Total time spent, exact 35 minutes on discharge meds reconciliation, examination, review of imaging and blood test and discussion with the patient on follow-up instructions. I have discussed my assessment with Philippe DUNCAN and orders have been reviewed. Inpatient E AND M: [id number] Disch Hosp 09/21/17 1600 <Electronically signed by Mansoor Llamas MD> Date Mansoor Llamas MD cc: DAKOTA Alfaro; OUT OF TOWN DOCTOR; Mansoor Llamas MD * Signed Discharge Date and Diagnosis - Problem List Patient Problems: Active and Suspected Problems Pulmonary emboli (Acute) DVT (deep venous thrombosis) (Acute) Date of Admission: 09/18/17 Date of Discharge: 09/21/17 - Primary Discharge Diagnosis Active and Suspected Problems Pulmonary emboli (Acute), bilateral, provoked DVT (deep venous thrombosis) (Acute) Chronic venous stasis Curry Disease CKDIII Hx Bowel perforation and GI bleeding. - Secondary Discharge Diagnosis Chronic Problems History of bowel perforation (Chronic) History of GI bleed (Chronic) History of pulmonary embolism (Chronic) Chronic anemia (Chronic) Stage III chronic kidney disease (Chronic) Addisons disease (Chronic) Hospital Course and Treatment Imaging Results: CT/CTA Chest W/WO Contrast IMPRESSION: Acute segmental pulmonary emboli in the right upper and lower lobes Acute subsegmental pulmonary emboli in the lingula and left lower lobe. Clear lungs. Operations: None Procedures: None Summary of Care Provided: Physical exam on day of discharge: See daily progress note Hospital course: The patient is a 77 year old F with a history of PEs, history of GI bleed, bowel perforation, CKD stage III, Curry's disease, chronic venous insufficiency, who presented to the emergency room with bilateral leg pain, and a dry cough. She had been bedridden for about a month because she had a recent bowel perforation and prior GI bleed. She used to be on Coumadin for PEs however was taken off of this because of the GI bleed. She reportedly had nearly in August however had recovered despite poor odds. She was found in the ER to have bilateral PEs and DVTs on imaging. She was tachycardic and required oxygen supplementation. She was admitted to the telemetry unit and started on therapeutic Lovenox. She did have significant anemia however this remained stable while she was here. She was given several doses of Venofer. Her symptoms improved and she was able to be weaned off of oxygen prior to discharge. She did remain somewhat tachycardic intermittently. The patient was physically debilitated as noted on presentation she basically immobile at home. He was advised that she go to long-term at this time. The patient remained in stable condition and was discharged to TCU when approved. She will continue therapeutic Lovenox as an outpatient. This patient was seen by Philippe Alfaro PA-C under the supervision of Doctor Llamas. [] Discharge Diet: No Restrictions Discharge Activity: Return to Normal Activity Home Medications: Medications to take at Discharge Fluticasone 0.05% [Flonase Nasal Coleman] 1 spray NASAL PRN PRN 09/18/17 Omeprazole [Prilosec] 20 mg PO DAILY 09/18/17 Prednisone 5 mg PO BID 09/18/17 Acetaminophen [Tylenol Tablet] 650 mg PO Q6H PRN PRN tablet 09/21/17 Docusate Sodium [Colace] 100 mg PO DAILY capsule 09/21/17 Enoxaparin [Lovenox] 70 mg SC Q12 syringe 09/21/17 Ensure Enlive 120 ml PO 4X/DAY liquid 09/21/17 Loratadine [Claritin] 10 mg PO DAILY tablet 09/21/17 Lorazepam [Ativan] 0.5 mg PO QHS #5 tab 09/21/17 Magnesium Hydroxide [Milk Of Magnesia] 30 ml PO DAILY PRN udc 09/21/17 Metoprolol Tartrate [Lopressor (beta ab)] 12.5 mg PO BID tablet 09/21/17 Following Prescrptions Were Given to Patient: Lorazepam [Ativan] 0.5 mg PO QHS #5 tab Primary Care Physician: [facility] Doctor,Out of [Primary Care Provider] - Please follow up with your Primary Care Physician in: 2 weeks Additional Instructions: Apply compression socks BL daily. Disposition: [facility] facility Minutes spent on discharge:: 35 Patient Condition:: Stable Medical Necessity - Tobacco Use Smoking Status: Never smoker Meaningful Use Info Meaningful Use Diagnoses (Choose all that apply): VTE - VTE Anticoag overlap given w/in hospital stay or rx'd at dc?: Yes Pt receive overlap for 5 days?: No Reason overlap not ordered, prescribed, or given for 5 days: Procedure Not Indicated 09/21/17 1529 <Electronically signed by Philippe DUNCAN> Date Philippe DUNCAN 09/21/17 1556<Electronically signed by Mansoor Llamas MD> Cosigner Signature (if applicable): Date Mansoor Llamas MD CC: DAKOTA Alfaro; OUT OF TOWN DOCTOR; Mansoor Llamas MD Signed TRANSFER TO [facility] Observed: 09/21/2017 Status: F Source: [facility] 3:56 PM [facility] REPOSITORY [facility] Medical Records Department [address] [place] [address] Transfer to [facility] MR#: [id number] Acct: [id number] Name: DIA MCCULLOUGH Rep #: [id number] : 1940 77 From: Philippe DUNCAN PCP: OUT OF TOWN DOCTOR Status: ADM IN DIA MCCULLOUGH Mauro (Patient) (Health Ins. Claim No.) (Day of Discharge to Facility) Certification of patient admission REQUIRED AT TIME OF ADMISSION. I CERTIFY THAT POST-HOSPITAL F SERVICES ARE REQUIRED TO BE GIVEN ON AN IN-PATIENT BASIS BECAUSE OF THE ABOVE NAMED PATIENT'S NEED FOR FPC CARE ON A CONTINUING BASIS FOR THE CONDITION(S) FOR WHICH HE/SHE WAS RECEIVING IN-PATIENT HOSPITAL SERVICES PRIOR TO HIS/HER TRANSFER TO THE [facility]. 09/21/17 1523 <Electronically signed by Philippe DUNCAN> Date Philippe DUNCAN <Philippe Alfaro - Last Filed: 09/21/17 15:21> - Diet 09/18/17 21:10 Diet: Regular Diet Food consistency:: Regular Liquid Consistency:: Regular/Thin - Routine Orders/Code Status Suppository Type: Dulcolax 10mg Suppository Frequency: Daily PRN O2 Frequency: PRN Routine Lab Work: CBC, BMP Code Status: Full Code - Wound(s) RFA Skin tear Wound Type: Skin Tear - Therapies Physical Therapy: Eval and Treat Occupational Therapy: Eval and Treat - Problem/Diagnosis (1) Pulmonary emboli Status: Acute Current Visit: Yes (2) DVT (deep venous thrombosis) Status: Acute Current Visit: Yes (3) History of bowel perforation Status: Chronic Current Visit: Yes (4) History of GI bleed Status: Chronic Current Visit: Yes (5) History of pulmonary embolism Status: Chronic Current Visit: Yes (6) Chronic anemia Status: Chronic Current Visit: Yes (7) Stage III chronic kidney disease Status: Chronic Current Visit: Yes (8) Addisons disease Status: Chronic Current Visit: Yes - Allergies/Procedures Done in Hospital Allergies/Adverse Reactions: Allergies amoxicillin trihydrate [From Augmentin] Adverse Reaction (Verified 09/18/17 22:10) Upset Stomach diclofenac sodium [From Arthrotec] Adverse Reaction (Verified 09/18/17 22:10) Upset Stomach doxycycline Adverse Reaction (Verified 09/18/17 22:10) Upset Stomach erythromycin base Adverse Reaction (Verified 09/18/17 22:10) Upset Stomach etodolac [From Lodine] Adverse Reaction (Verified 09/18/17 22:10) Upset Stomach flurbiprofen [From Ansaid] Adverse Reaction (Verified 09/18/17 22:10) Upset Stomach misoprostol [From Arthrotec] Adverse Reaction (Verified 09/18/17 22:10) Upset Stomach NSAIDS (Non-Steroidal Anti-Inflamma Adverse Reaction (Verified 09/18/17 22:10) Other potassium clavulanate [From Augmentin] Adverse Reaction (Verified 09/18/17 22:10) Upset Stomach rofecoxib [From Vioxx] Adverse Reaction (Verified 09/18/17 22:10) Upset Stomach Procedures: None - Type of Care/Length of Stay Estimated LOS: Convalescent Care Less Than 30 days Type of Care Needed: Skilled Rehab Potential: Fair Prognosis: Fair - Additional Orders/Day of Discharge Additional Orders: Apply compression stocking daily Day of Discharge: 09/21/17 - Dietary and Speech Recommendations Dietitian Recommendations/Changes: Recommend regular diet, low residue/low gastric stimulant. - Follow Up Care Primary Care Physician: [facility] Doctor,Out of [Primary Care Provider] - Please follow up with your Primary Care Physician in: 2 weeks <Mansoor Llamas - Last Filed: 09/21/17 15:51> - Diet 09/18/17 21:10 Diet: Regular Diet Food consistency:: Regular Liquid Consistency:: Regular/Thin - Routine Orders/Code Status Suppository Type: Dulcolax 10mg Suppository Frequency: Daily PRN 09/21/17 1523 <Electronically signed by Philippe DUNCAN> Date Philippe DUNCAN CC: OUT OF [facility] DOCTOR Signed 12 LEAD ELECTROCARDIOGRAM Observed: 09/21/2017 Status: F Source: HOOD 1:30 PM [facility] REPOSITORY [facility] Cardiovascular Services [address] [id number] 12 Lead EKG 09/18/17 1828 MR#: [id number] Acct: [id number] Name: DIA MCCULLOUGH Rep #: [id number] : 1940 77 From: Shaq Thomas MD Attending Dr: Mansoor Llamas MD Status: ADM IN Ordering Dr: Meme Echevarria MD Date: 09/18/17 Location: [facility] Sex: F C Admitted: 09/18/17 Test Reason : GENERALILLNESS Blood Pressure : / mmHG Vent. Rate : 109 BPM Atrial Rate : 109 BPM P-R Int : 116 ms QRS Dur : 076 ms QT Int : 334 ms P-R-T Axes : 001 -37 034 degrees QTc Int : 449 ms Sinus tachycardia Left axis deviation Abnormal ECG Confirmed by RICKY MIN, SHAQ ([id number]), scientific publications editor BALJINDER DAMON ([id number]) on 09/21/2017 1:30:15 PM Referred By: MAXI Confirmed By:SHAQ THOMAS MD 09/21/17 1330 Date Shaq Thomas MD CC: Meme Echevarria MD; OUT OF TOWN DOCTOR; Mansoor Llamas MD Signed BASIC METABOLIC Collected: 09/21/2017 Status: F Source: HOOD PROFILE ([facility]) 5:30 AM [facility] REPOSITORY TYPE CODE TESTS RESULT OUT OF RANGE REFERENCE UNITS LAB L501.0100 74-106 mg/dL Normal GLU 90 Result Comment: Please note revised GLUCOSE reference range effective 2017. LAB L501.1000 7-18 mg/dL Normal BUN 10 LAB L501.1100 0.55-1.02 mg/dL Normal CREAT,SERUM 0.98 Result Comment: The validity of the calculated GFR AND GFRAA in patients over 70 years has not been determined. Clinical correlation is essential. LAB L501.1110 >60 mL/min Low EST GFR 59 Result Comment: Non- GFR Calc LAB L501.1115 >60 mL/min Normal EST GFR - AA 71 Result Comment: GFR Calc LAB L501.1255 ml/min Normal Estimated CRCL 51.31 LAB L501.1300 10-20 RATIO Normal BUN/CRE 10.2 LAB L501.2200 8.5-10 mg/dL Low .1 CA 8.1 LAB L501.5300 136-14 mmol/L High 5 NA 148 LAB L501.5600 3.5-5. mmol/L Normal 1 K 4.1 LAB L501.5900 98-107 mmol/L High CL 113 LAB L501.6100 21.0-3 mmol/L Normal 2.0 CO2 27.0 LAB L501.6200 5-15 Normal GAP 8 Performed By: #### L500.2500 #### [facility] [address] [place], [place], [address] CBC W/DIFF, AUTOMATED Collected: 09/21/2017 Status: F Source: ANNMARIE 5:30 AM [facility] REPOSITORY TYPE CODE TESTS RESULT OUT OF RANGE REFERENCE UNITS LAB L100.1000 4.4-11.0 K/mm3 Normal WBC 7.7 LAB L100.1200 4.2-5.4 M/mm3 Low RBC 3.04 LAB L100.1300 12.0-15.0 g/dl Low HGB 9.0 LAB L100.1400 37-47 % Low HCT 30.0 LAB L100.1500 81-99 fL Normal MCV 98.7 LAB L100.1600 27.0-32.0 pg Normal MCH 29.6 LAB L100.1700 32-36 g/gl Low MCHC 30.0 LAB L100.1810 11.6-14.6 % High RDW CV 18.6 LAB L100.1820 35.1-43.9 fl High RDW SD 61.1 LAB L100.1900 150-450 K/mm3 Normal PLT 266 LAB L100.2000 6.2-12.0 fl Normal MPV 8.9 LAB L100.2100 47-70 % High NEUT% 71.7 LAB L100.2200 19-41 % Low LY% 17.1 LAB L100.2300 0-10 % Normal MONO% 8.5 LAB L100.2400 0-5 % Normal EO% 0.6 LAB L100.2500 0-1 % Normal BASO% 0.4 LAB L100.2550 0.0-0.9 % High IM GRAN % 1.700 Result Comment: IG% - Immature Granulocytes (promyelocytes, myelocytes and metamyelocytes) > 1% indicates that a LEFT SHIFT is Present. LAB L100.2620 2.0-7.7 X10 3/uL Normal Absolute Neut 5.5 LAB L100.2720 0.83-4.51 X10 3/ul Normal Absolute Lymph 1.32 Performed By: #### L100.0100 #### [facility] [address] [place], [address] HH, HEMOGLOBIN AND Collected: 09/20/2017 Status: F Source: ANNMARIE HEMATOCRIT 8:50 PM [facility] REPOSITORY TYPE CODE TESTS RESULT OUT OF RANGE REFERENCE UNITS LAB L100.1300 12.0-15.0 g/dl Low HGB 9.0 LAB L100.1400 37-47 % Low HCT 29.6 Performed By: #### L100.0600 #### [facility] [address] [place], [address] TYPE AND SCREEN Collected: 09/20/2017 Status: F Source: HOOD 8:50 PM [facility] REPOSITORY Order Comment: CMV NEG? N Number of units to transfuse: 2 Reason for Ordering Blood: Acute Are the blood/blood products to be transfused? N Is the patient having/had surgery? N Give When? Type AND Hold Irradiated? N Leukodepleted? Y TYPE CODE TESTS RESULT OUT OF RANGE REFERENCE UNITS LAB B10.0800 A Normal BLOOD TYPE GEL POSITIVE LAB B100.4000 Normal Antibody NEGATIVE Screen Performed By: #### B101.7450 #### [facility] [address] [place], [address] CBC W/DIFF, AUTOMATED Collected: 09/20/2017 Status: F Source: HOOD 5:10 AM [facility] REPOSITORY TYPE CODE TESTS RESULT OUT OF RANGE REFERENCE UNITS LAB L100.1000 4.4-11.0 K/mm3 Normal WBC 7.0 LAB L100.1200 4.2-5.4 M/mm3 Low RBC 2.86 LAB L100.1300 12.0-15.0 g/dl Low HGB 8.7 LAB L100.1400 37-47 % Low HCT 28.2 LAB L100.1500 81-99 fL Normal MCV 98.6 LAB L100.1600 27.0-32.0 pg Normal MCH 30.4 LAB L100.1700 32-36 g/gl Low MCHC 30.9 LAB L100.1810 11.6-14.6 % High RDW CV 18.4 LAB L100.1820 35.1-43.9 fl High RDW SD 60.9 LAB L100.1900 150-450 K/mm3 Normal PLT 256 LAB L100.2000 6.2-12.0 fl Normal MPV 9.0 LAB L100.2100 47-70 % High NEUT% 76.4 LAB L100.2200 19-41 % Low LY% 14.1 LAB L100.2300 0-10 % Normal MONO% 8.2 LAB L100.2400 0-5 % Normal EO% 0.3 LAB L100.2500 0-1 % Normal BASO% 0.3 LAB L100.2550 0.0-0.9 % Normal IM GRAN % 0.700 Result Comment: IG% - Immature Granulocytes (promyelocytes, myelocytes and metamyelocytes) > 1% indicates that a LEFT SHIFT is Present. LAB L100.2620 2.0-7.7 X10 3/uL Normal Absolute Neut 5.3 LAB L100.2720 0.83-4.51 X10 3/ul Normal Absolute Lymph 0.98 Performed By: #### L100.0100 #### [facility] [address] [place], [address] BASIC METABOLIC Collected: 09/20/2017 Status: F Source: HOOD PROFILE ([facility]) 5:10 AM [facility] REPOSITORY TYPE CODE TESTS RESULT OUT OF RANGE REFERENCE UNITS LAB L501.0100 74-106 mg/dL Normal GLU 102 Result Comment: Fasting Glucose result from 100 to 125 mg/dL suggests IMPAIRED HOMEOSTASIS per A.D.A. criteria. Please note revised GLUCOSE reference range effective 2017. LAB L501.1000 7-18 mg/dL Normal BUN 10 LAB L501.1100 0.55-1.02 mg/dL High CREAT,SERUM 1.13 Result Comment: The validity of the calculated GFR AND GFRAA in patients over 70 years has not been determined. Clinical correlation is essential. LAB L501.1110 >60 mL/min Low EST GFR 50 Result Comment: Non- GFR Calc LAB L501.1115 >60 mL/min Normal EST GFR - AA 60 Result Comment: GFR Calc LAB L501.1255 ml/min Normal Estimated CRCL 44.50 LAB L501.1300 10-20 RATIO Low BUN/CRE 8.8 LAB L501.2200 8.5-10 mg/dL Low .1 CA 7.6 LAB L501.5300 136-14 mmol/L High 5 NA 149 LAB L501.5600 3.5-5. mmol/L High 1 K 5.2 Result Comment: Slight Hemolysis, Result may be falsely increased. LAB L501.5900 98-107 mmol/L High CL 117 LAB L501.6100 21.0-32.0 mmol/L Normal CO2 27.0 LAB L501.6200 5-15 Normal 5 GAP Performed By: #### L500.2500 #### [facility] [address], [address] HH, HEMOGLOBIN AND Collected: 09/19/2017 Status: F Source: HOOD HEMATOCRIT 8:04 PM [facility] REPOSITORY TYPE CODE TESTS RESULT OUT OF RANGE REFERENCE UNITS LAB L100.1300 12.0-15.0 g/dl Low HGB 9.1 LAB L100.1400 37-47 % Low HCT 29.6 Performed By: #### L100.0600 #### [facility] [address] [place], [address] CBC W/DIFF, AUTOMATED Collected: 09/19/2017 Status: F Source: HOOD 5:05 AM [facility] REPOSITORY TYPE CODE TESTS RESULT OUT OF RANGE REFERENCE UNITS LAB L100.1000 4.4-11.0 K/mm3 Normal WBC 8.4 LAB L100.1200 4.2-5.4 M/mm3 Low RBC 3.03 LAB L100.1300 12.0-15.0 g/dl Low HGB 8.9 LAB L100.1400 37-47 % Low HCT 28.7 LAB L100.1500 81-99 fL Normal MCV 94.7 LAB L100.1600 27.0-32.0 pg Normal MCH 29.4 LAB L100.1700 32-36 g/gl Low MCHC 31.0 LAB L100.1810 11.6-14.6 % High RDW CV 18.4 LAB L100.1820 35.1-43.9 fl High RDW SD 60.6 LAB L100.1900 150-450 K/mm3 Normal PLT 219 LAB L100.2000 6.2-12.0 fl Normal MPV 8.9 LAB L100.2100 47-70 % Normal NEUT% 69.9 LAB L100.2200 19-41 % Low LY% 17.1 LAB L100.2300 0-10 % High MONO% 11.5 LAB L100.2400 0-5 % Normal EO% 0.6 LAB L100.2500 0-1 % Normal BASO% 0.1 LAB L100.2550 0.0-0.9 % Normal IM GRAN % 0.800 Result Comment: IG% - Immature Granulocytes (promyelocytes, myelocytes and metamyelocytes) > 1% indicates that a LEFT SHIFT is Present. LAB L100.2620 2.0-7.7 X10 3/uL Normal Absolute Neut 5.8 LAB L100.2720 0.83-4.51 X10 3/ul Normal Absolute Lymph 1.43 Performed By: #### L100.0100 #### [facility] [address] [place], [place], [address] PROTHROMBIN TIME W/INR Collected: 09/19/2017 Status: F Source: HOOD 5:05 AM [facility] REPOSITORY TYPE CODE TESTS RESULT OUT OF RANGE REFERENCE UNITS LAB L300.4150 11.7-14.9 SECONDS High PROTIME 15.7 LAB L300.4200 Normal INR 1.3 Performed By: #### L300.3900 #### [facility] [address] [place], [address] BASIC METABOLIC Collected: 09/19/2017 Status: F Source: ANNMARIE PROFILE (BMP) 5:05 AM [facility] REPOSITORY TYPE CODE TESTS RESULT OUT OF RANGE REFERENCE UNITS LAB L501.0100 74-106 mg/dL Normal GLU 82 Result Comment: Please note revised GLUCOSE reference range effective 2017. LAB L501.1000 7-18 mg/dL Normal BUN 11 LAB L501.1100 0.55-1.02 mg/dL High CREAT,SERUM 1.11 Result Comment: The validity of the calculated GFR AND GFRAA in patients over 70 years has not been determined. Clinical correlation is essential. LAB L501.1110 >60 mL/min Low EST GFR 51 Result Comment: Non- GFR Calc LAB L501.1115 >60 mL/min Normal EST GFR - AA 61 Result Comment: GFR Calc LAB L501.1255 ml/min Normal Estimated CRCL 45.30 LAB L501.1300 10-20 RATIO Low BUN/CRE 9.9 LAB L501.2200 8.5-10 mg/dL Low .1 CA 7.5 LAB L501.5300 136-14 mmol/L High 5 NA 146 LAB L501.5600 3.5-5. mmol/L Low 1 K 3.2 LAB L501.5900 98-107 mmol/L High CL 111 LAB L501.6100 21.0-3 mmol/L Normal 2.0 CO2 25.0 LAB L501.6200 5-15 Normal GAP 10 Performed By: #### L500.2500 #### [facility] [address] [place], [address] HISTORY AND PHYSICAL Observed: 09/18/2017 Status: F Source: HOOD EXAM 10:03 PM [facility] REPOSITORY [facility] Medical Records Department [address] [place] [address] History and Physical 09/18/172138 MR#: [id number] Acct: [id number] Name: DIA MCCULLOUGH Rep #: [id number] : 1940 77 From: Fredo Houser MD PCP: OUT OF TOWN DOCTOR Status: ADM IN Y Location: [place] [address] Problem List (1) History of bowel perforation Status: Chronic (2) History of GI bleed Status: Chronic (3) History of pulmonary embolism Status: Chronic (4) Chronic anemia Status: Chronic (5) Stage III chronic kidney disease Status: Chronic (6) Addisons disease Status: Chronic History of Present Illness Date of Admission: 09/18/17 Chief Complaint: Bilateral leg pain/ache, dry cough. The patient is a 77 year old F with past medical history as mentioned above presented to the emergency room from the assisted living because she was found to have acute bilateral lower extremity DVT on venous Doppler that was done today for bilateral leg pain and ache. The patient mentioned that she has been having bilateral leg pain that has been going on for few days, described as constant ache, 3-4 out of 10 in severity, more on the right leg behind right knee, no aggravating or relieving factors and no associated symptoms. The patient is bedridden for the last month because she had recent history of bowel perforation for which she was sent to [facility] and she refused to go for surgery. During that admission, she had upper and lower GI bleed as she has been on Coumadin which was discontinued. Since that time, she has been bedridden most of her time and not ambulating. She had a history of pulmonary embolism 2 and half years ago and she has been on Coumadin since that time which was discontinued with few weeks ago because of upper and lower GI bleed. She never had upper endoscopy or colonoscopy for the GI bleed. Yesterday, she received blood transfusion 2 units and she felt better in terms of her strength and ambulation and she was able to ambulate with assistance. 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 She has history of arthritis and chronic back pain and she has been using diclofenac for arthritic pain. In the emergency department, she was tachycardic, afebrile, blood pressure was slightly elevated and her pulse ox was maintained on room air. Routine blood work is remarkable for hemoglobin of 10.2 g/dL, creatinine of 1.28. Her troponin is negative. Pro time and INR were normal. EKG revealed normal sinus rhythm without evidence of acute ischemic changes. CTA chest revealed right upper and lower lobe segmental pulmonary emboli, left lower lobe and lingula segmental luminary emboli as well. She is being admitted for acute bilateral lower extremity DVT and acute bilateral pulmonary emboli. Past Medical History Past Medical History (Chronic Problems): Chronic Problems History of bowel perforation (Chronic) History of GI bleed (Chronic) History of pulmonary embolism (Chronic) Chronic anemia (Chronic) Stage III chronic kidney disease (Chronic) Addisons disease (Chronic) Allergies amoxicillin trihydrate [From Augmentin] Adverse Reaction (Verified 08/24/17 07:55) Upset Stomach diclofenac sodium [From Arthrotec] Adverse Reaction (Verified 08/24/17 07:55) Upset Stomach doxycycline Adverse Reaction (Verified 08/24/17 07:55) Upset Stomach erythromycin base Adverse Reaction (Verified 08/24/17 07:55) Upset Stomach etodolac [From Lodine] Adverse Reaction (Verified 08/24/17 07:55) Upset Stomach flurbiprofen [From Ansaid] Adverse Reaction (Verified 08/24/17 07:55) Upset Stomach misoprostol [From Arthrotec] Adverse Reaction (Verified 08/24/17 07:55) Upset Stomach NSAIDS (Non-Steroidal Anti-Inflamma Adverse Reaction (Verified 09/18/17 17:35) Other potassium clavulanate [From Augmentin] Adverse Reaction (Verified 08/24/17 07:55) Upset Stomach rofecoxib [From Vioxx] Adverse Reaction (Verified 08/24/17 07:55) Upset Stomach Home Medications: Ambulatory Orders Medication Instructions Recorded Fluticasone 0.05% [Flonase Nasal 1 spray NASAL DAILY 09/18/17 Surgical History: total knee arthroplasty, - - Back surgery. 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 Lives: - - Assisted living. Smoking Status: Never smoker Alcohol: None Drugs: None - *Family History Maternal History Items: No pertinent history Paternal History Items: No pertinent history Review of Systems Constitutional: Denies: Anorexia, Chills, Fever, Weakness Eyes: Denies: Blurred vision, Double vision, Drainage, Pain HEENT: Denies: Difficulty Hearing, Ear Pain, Eye Pain, Nasal Congestion, Sore Throat Cardiovascular: Reports: Edema. Denies: Chest Pain, Chest Pressure, Chest Tightness, Heaviness, Light Headedness, Orthopnea, Syncope Respiratory: Reports: Cough. Denies: Pleuritic Pain, Shortness of Breath, Sputum production, Wheezing Gastrointestinal: Denies: Abdominal Pain, Constipation, Diarrhea, Nausea, Vomiting Genitourinary: Denies: Dysuria, Frequency, Hematuria Musculoskeletal: Reports: Leg Pain. Denies: Arm Pain, Back Pain, Foot Pain Skin: Denies: Dryness, Rash Neurological: Denies: Balance problems, Double vision, Change in Speech, Slurred speech, Confusion, Focal weakness, Incoordination, Tingling Psychiatric: Denies: Anxiety, Depression Endocrine: Denies: Change in Body Habitus, Polydipsia VTE Information - Inpt Only VTE Present on Admission: No VTE Mechan Device Prophylaxis: None VTE Pharm Prophylaxis ordered?: No - Physical Exam General: Alert, Oriented x3, Cooperative, No apparent distress HEENT: Atraumatic, PERRLA, EOMI Oral: Moist Mucosa, No Gingival or Mucosal Lesions/ Ulcerations Neck: Supple, No JVD, Negative Carotid Bruits, Trachea Midline, Thyroid Normal Size and Texture Lungs: Clear to auscultation, No rhonchi, No wheeze, No rales, Diminished Cardiovascular: Regular rate, Regular Rhythm, Normal S1, Normal S2, No murmurs, PMI Normal, Tachycardic Abdomen: Bowel Sounds Present, Soft, Non Tender, Non-Distended, No Hepato-splenomegaly Extremities: No clubbing, No cyanosis, Edema - Nonpitting edema, stasis dermatitis. Skin: No rashes, No breakdown Lymphatic: No Cervical, Supraclavicular, or Inguinal Adenopathy Neurological: Cranial nerves II-XII grossly intact, Motor Exam 5/5 strength throughout Psych/Mental Status: Normal Affect, Appropriate, Alert and oriented to time, place, person, mood and affect Vital Signs Temp Pulse Resp BP Pulse Ox 98.8 F 110 H 22 H 153/81 H 98 09/18/17 17:36 09/18/17 21:21 09/18/17 21:21 09/18/17 21:21 09/18/17 21:21 Oxygen Delivery Method Room Air Weight: 158 lb Body Mass Index (BMI) 31.8 Laboratory Tests Past 24 Hrs WBC 9.3 RBC 3.46 L Hgb 10.2 L Clinical Impression(s) from Imaging Studies Chest CTA 09/18/17 19:40 IMPRESSION: Acute segmental pulmonary emboli in the right upper and lower lobes Acute subsegmental pulmonary emboli in the lingula and left lower lobe. Clear lungs. N.B. : The above information has been verbally conveyed by Obey Davenport to Dr. Meme Echevarria, Referring Physician, on 09/18/2017 20:37:55 (ET). Electronically Signed: Obey Davenport, at 20:30 EDT Tel , Service support , N.B. : The above information has been verbally conveyed by Obey Davenport to Dr. Meme Echevarria, Referring Physician, on 09/18/2017 20:37:55 (ET). Assessment/Plan This is a 77 years old female patient who lives at the assisted living, found to have acute bilateral lower extremity DVT on venous Doppler that was done for bilateral leg pain and ache and also she was found to have acute bilateral pulmonary emboli on CTA chest that was done in the emergency department and she is being admitted for treatment. #1 acute bilateral lower extremity DVT: Venous Doppler that was done at the assisted living revealed extensive bilateral DVTs as reported by ER physician. Patient was on Coumadin for history of PE but was discontinued a few weeks ago because of recent history of upper and lower GI bleed. Her INR is 1.2. This is considered provoked DVT and PE secondary to sedentary life, patient has been nonambulatory for the last month. Plan: Admit to PCU, cardiac monitoring, start therapeutic Lovenox twice daily, IV fluids, Tylenol as needed, repeat CBC and BMP tomorrow morning. At this time, I think patient should continue on Lovenox treatment for PE and DVT rather started her back on Coumadin or starting her on the new anticoagulants such as Eliquis or Xarelto because of recent history of significant GI bleed. #2 acute bilateral segmental pulmonary emboli: CTA chest revealed acute segmental PEs in the right upper and lower lobes as well as acute subsegmental PEs in the lingula and left lower lobe. Plan to start her on Lovenox twice daily as above. She did have a history of PE 2 years ago and she was on Coumadin that was discontinued as mentioned above. #3 recent history of bowel perforation: This is happened 3 weeks ago, was sent to [facility] but patient refused surgery. She did follow some kind of [place] trial for spontaneous healing of bone perforation that she red on the Internet. She remained bedridden for the last 30 days with very minimal ambulation and she remained on clear liquids and later on soft mechanical diet. She started eating some amount of solid diet on the 2 days ago and today, she had normal brown bowel movement. She has no more abdominal pain, no nausea or vomiting. Abdominal examination is benign. #4 recent history of lower and upper GI bleed: According to the patient and her daughter, she had hematemesis and hematochezia which was attributed to Coumadin and her INR was elevated. Coumadin discontinued since that time. His INR is 1.2. She has been on prednisone for more than 20 years and also she has been using diclofenac for arthritis. This would make him at risk for peptic ulcer disease gastritis. Plan to avoid NSAIDs, Protonix twice daily. #5 Curry's disease: Continue prednisone, she follows up with endocrinology as outpatient. #6 chronic anemia: She received 2 units of packed RBCs at the assisted living today. After transfusion, she feels better in terms of her strength and ambulation. Admission hemoglobin is 10.2 g/dL. No evidence of active bleeding. Plan to repeat CBC tomorrow morning. #7 stage III chronic kidney disease: Baseline creatinine is around 1.1 up to 1.5 mg. Admission creatinine is 1.28, stable at baseline. #8 history of PE: She will be on Lovenox twice daily as above. #9 DVT prophylaxis: She will be on therapeutic Lovenox twice daily. This note was generated with Robotokiation software. It may contain incorrect words, spelling, and punctuation that were not noted in checking the note before signing. Code Visit Inpatient E AND M: 11800 Init Hosp L3 09/18/172202 <Electronically signed by Fredo Houser MD> Date Fredo Houser MD Cosigner Signature: Date (if applicable) CC: Fredo Houser; OUT OF TOWN DOCTOR Signed EMERGENCY DEPARTMENT Observed: 09/18/2017 Status: F Source: HOOD SUMMARY 9:11 PM [facility] REPOSITORY [facility] Medical Records Department [address] [place] [address] Emergency Department Summary 09/18/17 1820 MR#: [id number] Acct: [id number] Name: DIA MCCULLOUGH Rep #: [id number] : 1940 77 From: Meme Echevarria MD PCP: OUT OF TOWN DOCTOR Status: REG ER - ER Visit Summary Date of Service: 09/18/17 Chief Complaint: Bilateral lower extremity DVT History of Present Illness: The patient is a 77 F presented with bilateral lower extremity DVT. This was found on outpatient ultrasound today. She currently lives in assisted living in the nurse practitioner there ordered an ultrasound of her legs due to leg pain. She denies chest pain or shortness of breath. Ultrasound shows acute left lower extremity DVT involving the left common femoral through calf veins, acute right lower extremity DVT involving the right common, distal and profunda femoral, and popliteal veins. Patient has a history of previous DVT with PE. She was previously on Coumadin. On August 24 she sustained a perforated bowel and was septic. She was at [facility] at the time. She declined surgery and went home. 2 weeks later she developed an upper GI bleed. At that time she was in hospice and her Coumadin was stopped. She has been doing well and was discharged and is no longer in hospice. She received 2 units of blood yesterday secondary to generalized weakness. Physical Examination: Vitals are stable. Patient is afebrile. Alert no acute distress. HEENT exam is unremarkable. Neck is supple. Lungs are clear and equal bilaterally. Heart is regular and tachycardic Abdomen is soft nontender nondistended. Extremities symmetric edema, normal distal pulses Skin is warm and dry. No focal neurologic deficit. Remainder of exam is unremarkable. Emergency Department Course and Treatment: EKG is sinus tachycardia rate of 109. CBC shows a hemoglobin of 10.2. Chemistries show creatinine 1.28. INR is 1.2. Troponin is negative. She is given IV fluids. CTA chest shows acute segmental pulmonary emboli in the right upper and lower lobes. Acute subsegmental pulmonary emboli in the lingula and left lower lobe. She was started on a heparin drip. Discussed with the hospitalist for admission. Disposition: Admission Impression: Bilateral pulmonary embolism, bilateral lower extremity DVT This note was generated with Druidly dictation software. It may contain incorrect words, spelling, and punctuation that were not noted in review of the chart prior to signing ED Disposition - Plan for ED Patient: Chief Complaint: General Illness Referrals: [facility] Doctor,Out of [Primary Care Provider] - What to do if you have Problems For any increased pain, shortness of breath, bleeding, nausea or vomiting, chest pain, or any unexpected problems, contact your Primary Care Provider. Call [facility] ([phone]) or report to the closest Emergency Room. Call 911 if necessary. 09/18/171 <Electronically signed by Meme Echevarria MD> Date Meme Echevarria MD Cosigner Signature (If Indicated): Date CC: OUT OF TOWN DOCTOR CTA CHEST W/WO Observed: 09/18/2017 Status: F Source: ANNMARIE CONTRAST 7:41 PM [facility] REPOSITORY [facility] Imaging Services [address] [place] [address] CTA Chest W/WO Contrast MR#: [id number] Acct: [id number] Name: DIA MCCULLOUGH Rep #: [id number] : 1940 F 77 From: Obey Davenport MD PCP: OUT OF TOWN DOCTOR Status: REG ER Study: CTA Chest W/WO Contrast Date of Exam: 09/18/17 Exam# [id number] Ordering Dr: Meme Echevarria MD STUDY: CTA CHEST REASON FOR EXAM: Female, 77 years old. DVT. Evaluate for pulmonary embolus. RADIATION DOSAGE (If Supplied By Facility): CTDIvol = ( 5.63 ) mGy, DLP = ( 194.22 ) mGycm TECHNIQUE: The examination was performed with the intravenous administration of 100 ml of Isovue 370 contrast material. Post-processing of the angiographic images was performed, with multiplanar reformation and 3D reconstruction. Individualized dose optimization techniques were used for this CT. COMPARISON: 01/05/2014 FINDINGS: There are no pulmonary infiltrates or pleural effusions. There is no pneumothorax. There are acute segmental pulmonary emboli in the right upper and lower lobes. There are subsegmental pulmonary emboli in the lingula and left lower lobe. There is no evidence of thoracic aortic aneurysm or dissection. The heart and pericardium are within normal limits. There is no thoracic lymphadenopathy. There are no destructive osseous lesions. CT/CTA Chest W/WO Contrast IMPRESSION: Acute segmental pulmonary emboli in the right upper and lower lobes Acute subsegmental pulmonary emboli in the lingula and left lower lobe. Clear lungs. N.B. : The above information has been verbally conveyed by Obey Davenport to Dr. Meme Echevarria, Referring Physician, on 09/18/2017 20:37:55 (ET). Electronically Signed: Obey Davenport, at 20:30 EDT Tel , Service support , N.B. : The above information has been verbally conveyed by Obey Davenport to Dr. Meme Echevarria, Referring Physician, on 09/18/2017 20:37:55 (ET). CC: Meme Echevarria MD; OUT OF TOWN DOCTOR Fruit Pitter: Signed CBC W/DIFF, AUTOMATED Collected: 09/18/2017 Status: F Source: ANNMARIE 6:40 PM [facility] REPOSITORY TYPE CODE TESTS RESULT OUT OF RANGE REFERENCE UNITS LAB L100.1000 4.4-11.0 K/mm3 Normal WBC 9.3 LAB L100.1200 4.2-5.4 M/mm3 Low RBC 3.46 LAB L100.1300 12.0-15.0 g/dl Low HGB 10.2 LAB L100.1400 37-47 % Low HCT 32.7 LAB L100.1500 81-99 fL Normal MCV 94.5 LAB L100.1600 27.0-32.0 pg Normal MCH 29.5 LAB L100.1700 32-36 g/gl Low MCHC 31.2 LAB L100.1810 11.6-14.6 % High RDW CV 18.2 LAB L100.1820 35.1-43.9 fl High RDW SD 60.6 LAB L100.1900 150-450 K/mm3 Normal PLT 230 LAB L100.2000 6.2-12.0 fl Normal MPV 8.8 LAB L100.2100 47-70 % High NEUT% 85.9 LAB L100.2200 19-41 % Low LY% 6.2 LAB L100.2300 0-10 % Normal MONO% 7.6 LAB L100.2400 0-5 % Normal EO% 0.0 LAB L100.2500 0-1 % Normal BASO% 0.0 LAB L100.2550 0.0-0.9 % Normal IM GRAN % 0.300 Result Comment: IG% - Immature Granulocytes (promyelocytes, myelocytes and metamyelocytes) > 1% indicates that a LEFT SHIFT is Present. LAB L100.2620 2.0-7.7 X10 3/uL High Absolute Neut 8.0 LAB L100.2720 0.83-4.51 X10 3/ul Low Absolute Lymph 0.58 LAB L100.4500 Normal SMEAR COMMENT SCANNED Result Comment: LYMPHOPENIA NOTED Performed By: #### L100.0100 #### [facility] [place], [address] BASIC METABOLIC Collected: 09/18/2017 Status: F Source: HOOD PROFILE (BMP) 6:40 PM [facility] REPOSITORY Order Comment: 'TROP' Serial specimen #1, #2, #3, or #4: 1 TYPE CODE TESTS RESULT OUT OF RANGE REFERENCE UNITS LAB L501.0100 74-106 mg/dL High GLU 116 Result Comment: Fasting Glucose result from 100 to 125 mg/dL suggests IMPAIRED HOMEOSTASIS per A.D.A. criteria. Please note revised GLUCOSE reference range effective 2017. LAB L501.1000 7-18 mg/dL Normal BUN 15 LAB L501.1100 0.55-1.02 mg/dL High CREAT,SERUM 1.28 Result Comment: The validity of the calculated GFR AND GFRAA in patients over 70 years has not been determined. Clinical correlation is essential. LAB L501.1110 >60 mL/min Low EST GFR 43 Result Comment: Non- GFR Calc LAB L501.1115 >60 mL/min Low EST GFR - AA 52 Result Comment: GFR Calc LAB L501.1255 ml/min Normal Estimated CRCL 40.98 LAB L501.1300 10-20 RATIO Normal BUN/CRE 11.7 LAB L501.2200 8.5-10 mg/dL Normal .1 CA 8.5 LAB L501.5300 136-14 mmol/L Normal 5 NA 143 LAB L501.5600 3.5-5. mmol/L Normal 1 K 4.6 LAB L501.5900 98-107 mmol/L Normal CL 107 LAB L501.6100 21.0-3 mmol/L Normal 2.0 CO2 28.0 LAB L501.6200 5-15 Normal GAP 8 Performed By: #### L500.2500, L501.4010 #### [facility] [address] [place], [address] TROPONIN-I Collected: 09/18/2017 Status: F Source: HOOD 6:40 PM [facility] REPOSITORY Order Comment: 'TROP' Serial specimen #1, #2, #3, or #4: 1 TYPE CODE TESTS RESULT OUT OF RANGE REFERENCE UNITS LAB L501.4010 <0.06 ng/mL Normal < 0.02 TROPONIN-I Result Comment: TROPONIN-I EXPECTED VALUES <0.05 NEGATIVE 0.06 - 0.59 AT RISK OF IL > OR = 0.60 SUGGEST IL Performed By: #### L500.2500, L501.4010 #### [facility] [address] [place], [address] PROTHROMBIN TIME W/INR Collected: 09/18/2017 Status: F Source: HOOD 6:40 PM [facility] REPOSITORY TYPE CODE TESTS RESULT OUT OF RANGE REFERENCE UNITS LAB L300.4150 11.7-14.9 SECONDS Normal PROTIME 14.9 LAB L300.4200 Normal INR 1.2 Performed By: #### L300.3900, L300.4310 #### [facility] [address] [place], [address] PARTIAL THROMBOPLAST Collected: 09/18/2017 Status: F Source: HOOD TIME 6:40 PM [facility] REPOSITORY TYPE CODE TESTS RESULT OUT OF REFERENCE UNITS RANGE LAB L300.4310 24.1-36.2 Seconds Low PTT 20.3 Performed By: #### L300.3900, L300.4310 #### [facility] [address] [place], [address] TYPE AND SCREEN Collected: 09/16/2017 Status: F Source: HOOD 5:17 PM [facility] REPOSITORY Order Comment: PRETRANSFUSION HGB = 7.2 HCT = 23.4 PERFORMED AT [facility] CMV NEG?* N Give When? T+1 Irradiated? N Leukodepleted? Y Reason for Type AND Screen/Red Cells: ANEMIA TYPE CODE TESTS RESULT OUT OF RANGE REFERENCE UNITS LAB B10.0800 A Normal BLOOD TYPE GEL POSITIVE LAB B100.4000 Normal Antibody NEGATIVE Screen Performed By: #### B101.7450 #### [facility] [address] [place], [address] Collected: 09/16/2017 Status: F Source: ANNMARIE 5:17 PM [facility] REPOSITORY TYPE CODE TESTS RESULT OUT OF REFERENCE UNITS RANGE LAB U100.0000 [id number] TRANSFUSED PRODUCT: T AND S with Crossmatch, Red Cells COUNT: 2 Performed By: #### U100.0000 #### Non-[facility] - refer to report for specific site DISCHARGE INSTRUCTION Observed: 09/05/2017 Status: F Source: ANNMARIE 1:44 AM [facility] REPOSITORY [facility] Medical Records Department [address] [place] [address] Discharge Instruction 09/05/17142 MR#: [id number] Acct: [id number] Name: DIA MCCULLOUGH Rep #: [id number] : 1940 77 From: Julieth Garcia DO PCP: OUT OF TOWN DOCTOR Status: REG ER ED Disposition - Plan for ED Patient: Disposition: Home or Assisted Living Chief Complaint: GI Bleed Instructions: ED Bleed UGI Stable, Taking Coumadin Referrals: [facility] Doctor,Out of [Primary Care Provider] - What to do if you have Problems For any increased pain, shortness of breath, bleeding, nausea or vomiting, chest pain, or any unexpected problems, contact your Primary Care Provider. Call [facility] ([phone]) or report to the closest Emergency Room. Call 911 if necessary. 09/05/17143 <Electronically signed by Julieth Garcia DO> Date Julieth Garcia DO Cosigner Signature (If Indicated): Date CC: OUT OF TOWN DOCTOR EMERGENCY DEPARTMENT Observed: 09/05/2017 Status: F Source: HOOD SUMMARY 1:43 AM [facility] REPOSITORY [facility] Medical Records Department [address] [place] [address] Emergency Department Summary 09/05/17 0045 MR#: [id number] Acct: [id number] Name: DIA MCCULLOUGH Rep #: [id number] : 1940 77 From: Julieth Garcia DO PCP: OUT OF TOWN DOCTOR Status: REG ER - ER Visit Summary Date of Service: 09/05/17 Chief Complaint: [] Upper and lower GI bleed History of Present Illness: The patient is a 77 F [] is a hospice patient who presents with upper and lower GI bleed. Hospice DIRECTOR OF PROFESSIONAL SERVICES is at the bedside reports that she was at the patient's residence when she had a significant bout of hematemesis measuring several 100 cc. This nurse also reports some lower GI bleeding. Patient reportedly had a bowel perforation approximately 10 days ago and patient refused surgery and was subsequently placed on hospice. She also reports at that time she was septic. Patient reportedly continues to take Coumadin despite previous suggestion from physicians to discontinue this. She was previously taking this for a history of CVA. She is refusing medical treatment other than vitamin K and analgesia. She is requesting vitamin K to reverse her Coumadin and she reports she wishes to discontinue Coumadin at this point in her life. She denies chest pain, shortness of breath, abdominal pain. Reports mild abdominal cramping. Physical Examination: [] She is hypotensive in the 90s systolic upon arrival. Heart rate was in the 140s. 77-year-old female no acute distress. Cardiovascular exam is tachycardic with regular rhythm. Lungs are clear to auscultation. Abdomen is soft and nontender. No lower extremity edema. Test Results: [] White blood cell count elevated 19.9. Hemoglobin 9.5. INR measured 6.5. BUN and creatinine measured 40 and 1.49, respectively. Patient refused further testing. Emergency Department Course and Treatment: [] Patient given a 1 L normal saline bolus which improved the heart rate from the 140s to the low 100s. Patient on serial exam did request oral morphine for which she takes at home and was provided 10 mg orally. With her INR measuring 6.5 and her desire to discontinue Coumadin indefinitely, I provided 10 mg of vitamin K intravenously. On final serial exam patient had improvement of symptoms and was requesting discharge and to remain under the care of hospice. Treatment Plan: [] Reverse elevated INR and discharge in the care of hospice. Disposition: [] Discharge, stable. Impression: [] Elevated INR Upper GI bleed Lower GI bleed Vomiting DNR-PLANNING COORDINATOR This note was generated with Druidly dictation software. It may contain incorrect words, spelling, and punctuation that were not noted in review of the chart prior to signing ED Disposition - Plan for ED Patient: Chief Complaint: GI Bleed Referrals: [facility] Doctor,Out of [Primary Care Provider] - What to do if you have Problems For any increased pain, shortness of breath, bleeding, nausea or vomiting, chest pain, or any unexpected problems, contact your Primary Care Provider. Call [facility] ([phone]) or report to the closest Emergency Room. Call 911 if necessary. 09/05/17 0143 <Electronically signed by Julieth Garcia DO> Date Julieth Garcia DO Cosigner Signature (If Indicated): Date CC: OUT OF [facility] DOCTOR CBC W/DIFF, AUTOMATED Collected: 09/04/2017 Status: F Source: ANNMARIE 11:52 PM [facility] REPOSITORY TYPE CODE TESTS RESULT OUT OF RANGE REFERENCE UNITS LAB L100.1000 4.4-11.0 K/mm3 High WBC 19.9 LAB L100.1200 4.2-5.4 M/mm3 Low RBC 3.16 LAB L100.1300 12.0-15.0 g/dl Low HGB 9.5 LAB L100.1400 37-47 % Low HCT 30.3 LAB L100.1500 81-99 fL Normal MCV 95.9 LAB L100.1600 27.0-32.0 pg Normal MCH 30.1 LAB L100.1700 32-36 g/gl Low MCHC 31.4 LAB L100.1810 11.6-14.6 % High RDW CV 16.0 LAB L100.1820 35.1-43.9 fl High RDW SD 52.8 LAB L100.1900 150-450 K/mm3 High PLT 462 LAB L100.2000 6.2-12.0 fl Normal MPV 9.4 LAB L100.2100 47-70 % High NEUT% 85.1 LAB L100.2200 19-41 % Low LY% 7.7 LAB L100.2300 0-10 % Normal MONO% 6.2 LAB L100.2400 0-5 % Normal EO% 0.2 LAB L100.2500 0-1 % Normal BASO% 0.2 LAB L100.2550 0.0-0.9 % Normal IM GRAN % 0.600 Result Comment: IG% - Immature Granulocytes (promyelocytes, myelocytes and metamyelocytes) > 1% indicates that a LEFT SHIFT is Present. LAB L100.2620 2.0-7.7 X10 3/uL High Absolute Neut 16.9 LAB L100.2720 0.83-4.51 X10 3/ul Normal Absolute Lymph 1.54 Performed By: #### L100.0100 #### [facility] [address] [place], [place], [address] PROTHROMBIN TIME W/INR Collected: 09/04/2017 Status: F Source: HOOD 11:52 PM [facility] REPOSITORY TYPE CODE TESTS RESULT OUT OF REFERENCE UNITS RANGE LAB L300.4150 11.7-14.9 SECONDS High PROTIME 57.3 LAB L300.4200 High alert INR 6.5 Result Comment: CRITICAL VALUE VERIFIED. CALLED TO [facility] ED 09/05/17 0018 Latisha Regan. RESULTS READ BACK BY SAME . Performed By: #### L300.3900 #### [facility] [address] [place], [place], [address] COMPREHENSIVE METABOLIC Collected: 09/04/2017 Status: F Source: [facility] 11:52 PM [facility] REPOSITORY TYPE CODE TESTS RESULT OUT OF RANGE REFERENCE UNITS LAB L501.0100 74-106 mg/dL High GLU 133 Result Comment: Fasting Glucose result greater than or equal to 126 mg/dL suggests DIABETES MELLITUS per A.D.A. criteria. Please note revised GLUCOSE reference range effective 2017. LAB L501.1000 7-18 mg/dL High BUN 40 LAB L501.1100 0.55-1.02 mg/dL High CREAT,SERUM 1.44 Result Comment: The validity of the calculated GFR AND GFRAA in patients over 70 years has not been determined. Clinical correlation is essential. LAB L501.1110 >60 mL/min Low EST GFR 37 Result Comment: Non- GFR Calc LAB L501.1115 >60 mL/min Low EST GFR - AA 45 Result Comment: GFR Calc LAB L501.1255 ml/min Normal Estimated CRCL 36.38 LAB L501.1300 10-20 RATIO High BUN/CRE 27.8 LAB L501.1500 6.4-8. g/dL Low 2 T PROT 4.9 LAB L501.1800 3.2-5. g/dL Low 0 ALB 1.8 LAB L501.1950 2.2-4. g/dL Normal 2 GLOB 3.1 LAB L501.2000 0.9-2. RATIO Low 4 A/G 0.6 LAB L501.2200 8.5-10 mg/dL Low .1 CA 7.8 LAB L501.4100 15-37 U/L Low AST 12 LAB L501.4305 45-117 U/L Low ALK P 43 LAB L501.4405 13-56 U/L Low ALT 11 LAB L501.4600 0.20-1 mg/dL Normal .00 T BILI 0.40 LAB L501.5300 136-14 mmol/L Normal 5 NA 142 LAB L501.5600 3.5-5. mmol/L Normal 1 K 4.0 LAB L501.5900 98-107 mmol/L Normal CL 104 LAB L501.6100 21.0-3 mmol/L Normal 2.0 CO2 27.0 LAB L501.6200 5-15 Normal GAP 11 Performed By: #### L500.4050 #### [facility] [address] [place], [address] 12 LEAD ELECTROCARDIOGRAM Observed: 08/26/2017 Status: F Source: HOOD 11:32 AM [facility] REPOSITORY [facility] Cardiovascular Services [address] [place] [address] 12 Lead EKG 08/24/17 0841 MR#: [id number] Acct: [id number] Name: DIA MCCULLOUGH Rep #: [id number] : 1940 77 From: Jackson Uriostegui MD Attending Dr: Status: DEP ER Ordering Dr: Artur Flores MD Date: 08/24/17 Location: ED Sex: F C Admitted: Test Reason : ABD PAIN Blood Pressure : / mmHG Vent. Rate : 127 BPM Atrial Rate : 127 BPM P-R Int : 128 ms QRS Dur : 080 ms QT Int : 312 ms P-R-T Axes : 050 -43 061 degrees QTc Int : 453 ms Sinus tachycardia with occasional Premature ventricular complexes Left axis deviation Abnormal ECG Confirmed by MOODY MIN, JACK[place] ([id number]), scientific publications editor BALJINDER DAMON ([id number]) on 08/26/2017 11:31:51 AM Referred By: DORIS Confirmed By:JACKSON URIOSTEGUI MD 08/26/17 113 Date Jackson Uriostegui MD CC: Artur Flores MD; OUT OF TOWN DOCTOR Signed ED NOTE Observed: 08/24/2017 Status: COMPLETED Source: ARVIN 11:34 PM [facility] REPOSITORY HNO ID: [id number] Author: Tiny SargentRn) JANET Moore Service: Emergency Medicine Author Type: Registered Nurse Type: ED Notes Filed: 08/24/2017 11:36 PM Note Text: Pt discharged with scripts x4 by HUMA Stanley hot stamp operator. Pt left via w/c with family. ED NOTE Observed: 08/24/2017 Status: COMPLETED Source: [facility]V[place] 10:28 PM [facility] OTHER [facility] REPOSITORY HNO ID: [id number] Author: Coty Rajan (Sw) Service: Social Work Author Type: Extrusion Die Repairer Type: ED Notes Filed: 08/24/2017 10:31 PM Note Text: SOCIAL WORK PROGRESS NOTE SERVICE DATE: 08/24/2017 SERVICE TIME: 21:30 LOS: 0 days Received consult from bedside RN re: Pt's family has questions regarding hospice Met with pt's dtr, son and granddaughter; answered questions regarding hospice in the home, which pt (per family) has agreed on. Pt's dtr requested contact information for [facility] hospice; provided same. Pt's dtr states she will contact [facility] after hours tonight. Provided on-going support and validation to pt's family. Time Spent (minutes): 45 SIGNATURE: SAMUEL Cazares PATIENT NAME: Dia Mccullough DATE: August 24, 2017 TIME: 10:28 PM PAGER/CONTACT #: [phone] ED NOTE Observed: 08/24/2017 Status: COMPLETED Source: [place] 10:03 PM [facility] REPOSITORY HNO ID: [id number] Author: Ana Allen) JANET Carlson Service: Nursing Author Type: Registered Nurse Type: ED Notes Filed: 08/24/2017 10:06 PM Note Text: Patient states she has to go to the bathroom and is refusing the bedpan. Patient requesting to use the bathroom. Dr Thibodeaux notified and said she can go to the bathroom if patient is not dizzy. RN got patient to the wheelchair and the bathroom, patient denies dizziness/lightheadedness. Patient tolerated well. Dr Thibodeaux also notified of heart rate in the 120s. Will continue to monitor. ED NOTE Observed: 08/24/2017 Status: COMPLETED Source: [place] 9:42 PM [facility] REPOSITORY HNO ID: [id number] Author: Ana Carlson RN Service: Nursing Author Type: Registered Nurse Type: ED Notes Filed: 08/24/2017 9:43 PM Note Text: Notified Dr Thibodeaux that patient is requesting zofran for nausea, Dr said ok to give. CNDS Observed: 08/24/2017 Status: COMPLETED Source: [place] 9:37 PM [facility] REPOSITORY HNO ID: [id number] Author: Gold Thibodeaux Service: General Surgery Author Type: Resident Type: Discharge Summaries Filed: 08/24/2017 9:45 PM Note Text: DISCHARGE NOTE (Patient Admitted Less than 48 Hours) SERVICE DATE: 08/24/2017 SERVICE TIME: 9:37 PM ADMISSION DATE: 08/24/2017 Ms Mccullough presented to the ED as a transfer from [place]. She had gone there with an acute worsening of her baseline abdominal pain, and had been found to have large amounts of retroperitoneal air. She was transferred here with a diagnosis of perforated bowel. She was septic on arrival with tachycardia to 130s, fever to 38.3, blood pressure was WNL. From the beginning she was adverse to the idea of surgery, and after multiple long discussions with multiple members of the surgical team (including Dr Reyna personally at bedside) decided to pursue antibiotic treatment, and not have any sort of surgical intervention. A few hours later she decided that she would like to pursue home hospice, requested to leave, and her wishes were honored. DISCHARGE DISPOSITION: Home with Hospice DIET: Regular ACTIVITY AFTER DISCHARGE: Resume pre-hospital activity FOLLOW UP CARE REQUIRED: Please call home hospice tomorrow to set up care. DISCHARGE MEDICATIONS: Current Discharge Medication List START taking these medications !! ondansetron orally disintegrating (ZOFRAN ODT) 4 mg Take 4 mg by mouth every 6 hours as needed for Nausea/Vomiting. Qty: 30 tablet Refills: 1 ciprofloxacin HCl (CIPRO) 500 mg Take 500 mg by mouth twice daily. Qty: 28 tablet Refills: 0 Associated Diagnoses:Bowel perforation (HCC) metroNIDAZOLE (FLAGYL) 500 mg Take 500 mg by mouth three times daily. Qty: 42 tablet Refills: 0 Associated Diagnoses:Bowel perforation (HCC) !! - Potential duplicate medications found. Please discuss with provider. CONTINUE these medications which have CHANGED traMADol (ULTRAM) 50 mg Take 50 mg by mouth every 6 hours as needed. Qty: 15 tablet Refills: 0 Associated Diagnoses:Bowel perforation (HCC) CONTINUE these medications which have NOT CHANGED !! predniSONE (DELTASONE) 5-10 mg Take 5-10 mg by mouth once daily. !! diclofenac (EC) (VOLTAREN) 50 mg Take 50 mg by mouth every other day. Alternating with Voltaren 75 mg folic acid-B6-B12 (FOLCAPS) 1 tablet Take 1 tablet by mouth once daily. !! diclofenac (EC) (VOLTAREN) 75 mg Take 75 mg by mouth every other day. Alternating with Voltaren 50 mg furosemide (LASIX) 20 mg 20 mg once daily. As needed for swelling mupirocin (BACTROBAN) 2 % ointment polyethylene glycol 3350 (MIRALAX, GLYCOLAX) 17 gram/dose powder !! predniSONE (DELTASONE) 20 mg tablet !! warfarin (COUMADIN) 2 mg Take 2 mg by mouth every other day. Alternating with Warfarin 2.5 mg !! warfarin (COUMADIN) 2.5 mg Take 2.5 mg by mouth once daily. !! ondansetron orally disintegrating (ZOFRAN ODT) 4 mg Take 4 mg by mouth every 6 hours as needed for Nausea/Vomiting. Qty: 24 tablet Refills: 0 hydroCHLOROthiazide (HYDRODIURIL, ESIDRIX) 25 mg Take 25 mg by mouth once daily. 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) ranitidine (ZANTAC) 150 mg Take 150 mg by mouth twice daily. Diclofenac Sodium (VOLTAREN) 1 % gel Apply to affected area four times daily as needed. 4 grams for joints in lower extremties. 2 grams for upper extremities. No more than 32 grams per day. Patient does not tolerate oral NSAIDS, h/o gastric ulcer. Qty: 1 Tube Refills: 5 Associated Diagnoses:Arthritis albuterol HFA (PROVENTIL HFA, VENTOLIN HFA) 2 Puffs Inhale 2 Puffs as instructed every 4 hours as needed. Qty: 1 Inhaler Refills: 1 folic acid 2.2 mg Take 2.2 mg by mouth once daily. Refills: 0 levothyroxine (SYNTHROID) 50 mcg Take 50 mcg by mouth once daily. potassium chloride (K-TAB) 10 mEq Take 10 mEq by mouth twice daily. As directed Qty: 60 tablet Refills: 11 !! - Potential duplicate medications found. Please discuss with provider. STOP taking these medications cephALEXin (KEFLEX) 500 mg capsule Comments: Reason for Stopping: ferrous sulfate 325 mg Comments: Reason for Stopping: cholecalciferol, Vitamin D3, (VITAMIN D3) 50,000 unit cap capsule Comments: Reason for Stopping: FINAL DIAGNOSIS: Perforated bowel SIGNATURE: Gold Thibodeaux MD PATIENT NAME: Dia Mccullough DATE: August 24, 2017 TIME: 9:37 PM PAGER: [phone] NURSING PROG Observed: 08/24/2017 Status: COMPLETED Source: [facility] 7:25 PM CLINIC OTHER CAMPUS REPOSITORY HNO ID: [id number] Author: Jaden Allen) JANET Martinez Service: (none) Author Type: Registered Nurse Type: Nursing Progress Note Filed: 08/24/2017 11:29 PM Note Text: Nursing Progress Note Patient Name: Dia Mccullough Patient Location: [id number] 1920: Assumed care of patient, assessment completed and patient is refusing to wear monitoring equipment. Does not want them to be reapplied. Wants to receive ordered dose of vancomycin and leave. Will continue to monitor. 2039: Spoke with Dr. Thibodeaux regarding patients wishes in her care. Notified that patient does not want timmons placed. 2054: Dr. Thibodeaux speaking with family regarding patients wishes and route of care. 2324: Discharge instructions and written perscriptions given to patient and reviewed with patient and family members. This note was completed by: Jaden Martinez RN ED NOTE Observed: 08/24/2017 Status: COMPLETED Source: [facility] 6:50 PM [facility] REPOSITORY HNO ID: [id number] Author: Jalen Barrios RN Service: Emergency Medicine Author Type: Registered Nurse Type: ED Notes Filed: 08/24/2017 7:01 PM Note Text: Pt upset that she's not receiving antibiotics IV. Attempt to explain to pt that she is on a schedule and that it wasn't yet time. Pt sts that no one is able to tell when she will then she want to go home. Dr Delacruz was called to bedside. After conversation with Dr Delacruz pt still insisting that she could get care at [place] ED, continues to insist on leaving. Pt is now agreeable to stay and receive antibiotic tx but still wants to go home. ED NOTE Observed: 08/24/2017 Status: COMPLETED Source: [facility] 5:00 PM [facility] REPOSITORY HNO ID: [id number] Author: Jalen Barrios RN Service: Emergency Medicine Author Type: Registered Nurse Type: ED Notes Filed: 08/24/2017 5:26 PM Note Text: Blood cultures drawn and sent. 2nd set lac. Observed: 08/24/2017 Status: F Source: [facility] BLOOD 5:00 PM HE[facility] SYSTEM REPOSITORY Test performed at [facility] No growth Performed By: #### C_BLO #### [facility] [address] [address] PLAN OF CARE Observed: 08/24/2017 Status: COMPLETED Source: [facility] 4:51 PM CLINIC OTHER CAMPUS REPOSITORY HNO ID: [id number] Author: Aly Mills Metal Casting Trades Worker) Service: (none) Author Type: Porcelain Finish Sprayer Type: Plan of Care Filed: 08/24/2017 4:51 PM Note Text: MEDICATION HISTORY Patient Name:Ivana Mccullough : 1940 Source of history:Patient: Reliability of source: Appears reliable, clearly identified: Medication name Medication Nonadherence Identified: No barriers noted The above information represents the best possible medication history: Yes Additional comments: N/A Allergies: ALLERGIES Allergen Reactions - Ansaid [Flurbiprofe* GI Upset Ulcer - Arthrotec 50 [Diclo* GI Upset Cytotec upset stomach more than just the voltaren by itself - Augmentin [Amoxicil* GI Upset tolerates cephalexin - Doxycycline GI Upset - Erythromycin GI Upset - Grass Pollen - Lodine [Etodolac] - Nsaids (Non-Steroid* Unknown - Poison Lisa - Vioxx [Rofecoxib] GI Upset [facility] Current LINEN ROOM CUSTODIAN Medications: Prior to Admission medications as of 08/24/17 1650 Medication Sig Last Dose Taking predniSONE (DELTASONE) 5 mg tablet Take 5-10 mg by mouth once daily. Yes diclofenac, EC, (VOLTAREN) 50 mg EC tablet Take 50 mg by mouth every other day. Alternating with Voltaren 75 mg Yes folic acid-B6-B12 (FOLCAPS) 2.2-25-0.5 mg tab Take 1 tablet by mouth once daily. 08/23/2017 Yes cephALEXin (KEFLEX) 500 mg capsule 08/23/2017 Yes diclofenac, EC, (VOLTAREN) 75 mg EC tablet Take 75 mg by mouth every other day. Alternating with Voltaren 50 mg 08/23/2017 Yes furosemide (LASIX) 20 mg tablet 20 mg once daily. As needed for swelling 08/23/2017 Yes mupirocin (BACTROBAN) 2 % ointment 08/23/2017 Yes polyethylene glycol 3350 (MIRALAX, GLYCOLAX) 17 gram/dose powder 08/23/2017 Yes predniSONE (DELTASONE) 20 mg tablet 08/23/2017 Yes warfarin (COUMADIN) 2 mg tablet Take 2 mg by mouth every other day. Alternating with Warfarin 2.5 mg 08/23/2017 Yes warfarin (COUMADIN) 2.5 mg tablet Take 2.5 mg by mouth once daily. 08/23/2017 Yes ondansetron orally disintegrating (ZOFRAN ODT) 4 mg disintegrating tablet Take 1 tablet by mouth every 6 hours as needed for Nausea/Vomiting. 08/23/2017 Yes traMADol (ULTRAM) 50 mg tablet Take 1 tablet by mouth once daily. Patient taking differently: Take 50 mg by mouth every 6 hours as needed for Pain. 08/23/2017 Yes cholecalciferol, Vitamin D3, (VITAMIN D3) 50,000 unit cap capsule Take 1 capsule every 3 weeks 08/23/2017 Yes hydrochlorothiazide (HYDRODIURIL, ESIDRIX) 25 mg tablet Take 1 tablet by mouth once daily. 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) 08/23/2017 Yes ranitidine (ZANTAC) 150 mg tablet Take 1 tablet by mouth twice daily. 08/23/2017 Yes Diclofenac Sodium (VOLTAREN) 1 % gel Apply to affected area four times daily as needed. 4 grams for joints in lower extremties. 2 grams for upper extremities. No more than 32 grams per day. Patient does not tolerate oral NSAIDS, h/o gastric ulcer. 08/23/2017 Yes albuterol HFA (VENTOLIN HFA) 90 mcg/actuation inhaler Inhale 2 Puffs as instructed every 4 hours as needed. 08/23/2017 Yes folic acid 1 mg tablet Take 2.2 mg by mouth once daily. 08/23/2017 Yes levothyroxine (SYNTHROID) 50 mcg tablet Take 50 mcg by mouth once daily. ferrous sulfate 325 mg (65 mg iron) tablet Take 325 mg by mouth daily with breakfast. potassium chloride (K-TAB) 10 mEq tablet Take 1 tablet by mouth twice daily. As directed Aly Mills Metal Casting Trades Worker pager [phone] August 24, 2017 4:51 PM [facility] Observed: 08/24/2017 Status: COMPLETED Source: [facility] 4:32 PM [facility] OTHER [facility] REPOSITORY HNO ID: [id number] Author: Chaplain Mccollum (Chaplain) Service: (none) Author Type: Type: Allied Health Filed: 08/24/2017 4:33 PM Note Text: SPIRITUALCARE Spiritual Care Visit- Brief Note Name: Dia Mccullough Date: August 24, 2017 Notes: As responded to page requesting visit. Pt would like a visit from a coating machine operator. Sat with pt for a bit, will ask Fr to follow up. Paint Line Production Supervisor Signature: CHAPLAIN Veda To contact the Spiritual Care Department: Please call [phone] or Page the On-Call Paint Line Production Supervisor at pager [phone] Thank you for the opportunity to be of service. This is an electronically created document. IF PRINTED, PLEASE DO NOT REMOVE FROM THE CHART OR MODIFY PRINTED COPY. HISTORY PHYSICAL Observed: 08/24/2017 Status: COMPLETED Source: [facility] 4:21 PM [facility] REPOSITORY HNO ID: [id number] Author: Gold Thibodeaux Service: General Surgery Author Type: Resident Type: HANDP Filed: 08/24/2017 4:35 PM Note Text: Attestation signed by Denis Reyna at 08/24/2017 9:30 PM Attending Note I personally saw and examined the patient. I reviewed the resident's note. I agree with the resident's assessment and plan with the following revisions and/or additions: Pt with septic shock from intra-abominal source. Likely perforated diverticulitis versus perforated stercoral ulcer. I had a long discussion with the patient and she is refusing admission and all surgical intervention. She understands the risks of no interventions including and she wishes to go home. I told her that if she changes her mind she can come back to the hospital any time. Signature: Denis Reyna MD Date: 08/24/2017 Time: 9:28 PM HISTORY AND PHYSICAL EXAMINATION SERVICE DATE: 08/24/2017 SERVICE TIME: 4:21 PM PRIMARY CARE PHYSICIAN: Mallorie Wheeler MD Subjective CHIEF COMPLAINT: Abdominal pain HPI: This is a 77 year old female who reports acute worsening of her chronic abdominal pain, initially saying pain worsened this AM, but then saying it worsened 2 days ago. She has also had fever, lightheadedness, and abdominal pain for 3 days. She presented to [place] ED where they did a CT scan showing extensive air in the retroperitoneum, and her WBC was 16 there. She was then sent here for eval, where she was initially febrile and tachycardic to 130s, trended down with fluids and then has been uptrending. She also reports a nonproductive cough, normal bowel movements, denies CP/SOB, baseline back pain, denies pneumaturia. After an extensive discussion of surgery, its risks and benefits, patient ultimately refused surgery. She reports she is much more focused on quality of life and is not interested in a potential long ICU stay, colostomy, and possible despite intervention. She currently is only interested in antibiotic therapy. 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 - Inflammatory polyarthropathy - Normocytic anemia - PE (pulmonary thromboembolism) (HCC) 01/05/14 Bilat, extensive - Pulmonary embolism without acute cor pulmonale - Pure hypercholesterolemia - Sicca syndrome - Unspecified essential hypertension - Unspecified gastritis and gastroduodenitis without mention of hemorrhage - Urinary tract infection, site not specified - Venous insufficiency (chronic) (peripheral) - Vitamin D deficiency PAST SURGICAL HISTORY Procedure Laterality Date - CATARACT EXTRACTION HX Right - PARTIAL HIP REPLACEMENT Right 04/2013 - PAST SURGICAL HISTORY OF hernia repair - PAST SURGICAL HISTORY OF 11/2012 L3-L4 laminectomy and fusion - PAST SURGICAL HISTORY OF 11/2012 Back fusion surgery - TOTAL HIP REPLACEMENT 05/10/2013 right hip replacement - VENOUS DUPLEX BOTH LOWER EXTREMITIES 05/12/2016 FAMILY HISTORY Problem Relation Age of Onset - Diabetes Mother - Heart Mother - Heart Father - Denies family history of malignancy or thromboembolism. [OTHER] Other Social History Substance Use Topics - Smoking status: Never Smoker - Smokeless tobacco: Never Used - Alcohol use No (Not in a hospital admission) ALLERGIES Allergen Reactions - Ansaid [Flurbiprofe* GI Upset Ulcer - Arthrotec 50 [Diclo* GI Upset Cytotec upset stomach more than just the voltaren by itself - Augmentin [Amoxicil* GI Upset tolerates cephalexin - Doxycycline GI Upset - Erythromycin GI Upset - Grass Pollen - Lodine [Etodolac] - Nsaids (Non-Steroid* Unknown - Poison Lisa - Vioxx [Rofecoxib] GI Upset COMPLETE REVIEW OF SYSTEMS: See HPI Objective PHYSICAL EXAM: Physical Exam Performed: NAD AANDOx3 NL resp Tachycardic, regular rhythm Abdomen soft, diffusely tender with rebound, obese. No crepitus to my exam Bilateral LE chronic venous changes BP 137/76 Pulse 133 Temp (Src) 100.8 (Oral) Resp 20 Ht 4' 11 (1.50m) Wt 158 lb (71.7kg) SpO2 98% BMI 31.89 kg/(m2). DATA: Diagnostic tests reviewed for today's visit: OSH labs: WBC 15.9, Hb 11.2, Plt 372, INR 2.3, LA 1.6, Albumin 2.0, Cr 1.44 CT Abdomen/Pelvis from [place]: Small amount of free air in the peritoneal cavity as well as within deep SubQ tissues overlying the lower anterior abdominal wall. 8x6.9x8cm inhomogenous collection of soft tissue air in central pelvis. Abscess from locally bowel perforation should be ruled out. Small amount air in anterior aspect of urinary bladder suggestive of colovesical fistula Assessment/Plan 77 year old F w/ likely retroperitoneal perforation of stercoral ulcer Discussed with Dr Reyna Neuro: Pain control Nausea control Pulm: Duoneb PRN O2 PRN CV: Fluid resuscitate : MIVF at 100/hr Hold home diuretics Trend Cr, suspect prerental contribution but does have history of CKD III GI: NPO except meds PPI FEN: MIVF 100cc/hr LR Hypokalemic, replace ID: [id number]/zosyn Trend WBC Trend fever curve Fluids Follow up blood cultures Heme: Trend INR Hold coumadin Attempted to consent for FFP but patient refused No Vit K for now Endo: Continue prednisone 10 PO daily Home synthroid Prophylaxis: Initiate chemoprophylaxis once INR in normal range PPI SCD T/L/D: PIVs Start timmons Consults: SICU Dispo: To SICU SIGNATURE: Gold Thibodeaux MD PATIENT NAME: Dia Mccullough DATE: August 24, 2017 TIME: 4:21 PM PAGER/CONTACT #: [phone] PROGRESS Observed: 08/24/2017 Status: COMPLETED Source: [facility] 4:19 PM [facility] OTHER [place] REPOSITORY HNO ID: [id number] Author: Gold Thibodeaux Service: General Surgery Author Type: Resident Type: Progress Notes Filed: 08/24/2017 4:21 PM Note Text: Attempted to consent patient for FFP. She currently refuses FFP administration, she is concerned about developing blood clots. She is also not interested in surgery and so does not want the risk of FFP administration. I discussed with her the risks and benefits of FFP administration, and stressed that not giving it will delay surgery if she later decides she does want it. She persisted in refusing FFP. Gold Thibodeaux MD 08/24/2017 4:21 PM ED PROV NOTE Observed: 08/24/2017 Status: COMPLETED Source: [facility] 2:06 PM [facility] OTHER CAMPUS REPOSITORY HNO ID: [id number] Author: Elizabeth Nolasco MD Service: Emergency Medicine Author Type: Physician Type: ED Provider Notes Filed: 08/25/2017 6:45 PM Note Text: ED Provider Note Patient Name: Dia Mccullough SERVICE DATE: 08/24/17 History Patient presents with: Abdominal Pain HPI This patient presents for evaluation of abdominal pain. She is sent to this ED as a consultation for a perforated viscous, the patient states she's had abdominal pain every where since Tuesday, a CT of the abdomen was done that had showed free air and there was some concern for possible abscess, as a result she was sent here for surgical consultation, she was started on zosyn. She has been febrile and tachycardic since being at [place] ED. She endorses nausea but no vomiting. 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 Hansen - Inflammatory polyarthropathy - Normocytic anemia - PE (pulmonary thromboembolism) ([facility]) 01/05/14 Bilat, extensive - Pulmonary embolism without acute cor pulmonale - Pure hypercholesterolemia - Sicca syndrome - Unspecified essential hypertension - Unspecified gastritis and gastroduodenitis without mention of hemorrhage - Urinary tract infection, site not specified - Venous insufficiency (chronic) (peripheral) - Vitamin D deficiency PAST SURGICAL HISTORY Procedure Laterality Date - CATARACT EXTRACTION HX Right - PARTIAL HIP REPLACEMENT Right 04/2013 - PAST SURGICAL HISTORY OF hernia repair - PAST SURGICAL HISTORY OF 11/2012 L3-L4 laminectomy and fusion - PAST SURGICAL HISTORY OF 11/2012 Back fusion surgery - TOTAL HIP REPLACEMENT 05/10/2013 right hip replacement - VENOUS DUPLEX BOTH LOWER EXTREMITIES 05/12/2016 FAMILY HISTORY Problem Relation Age of Onset - Diabetes Mother - Heart Mother - Heart Father - Denies family history of malignancy or thromboembolism. [OTHER] Other Social History Social History Main Topics - Smoking status: Never Smoker - Smokeless tobacco: Never Used - Alcohol use No - Drug use: Not on file - Sexual activity: Not on file ALLERGIES Allergen Reactions - Ansaid [Flurbiprofe* GI Upset Ulcer - Arthrotec 50 [Diclo* GI Upset Cytotec upset stomach more than just the voltaren by itself - Augmentin [Amoxicil* GI Upset tolerates cephalexin - Doxycycline GI Upset - Erythromycin GI Upset - Grass Pollen - Lodine [Etodolac] - Nsaids (Non-Steroid* Unknown - Poison Lisa - Vioxx [Rofecoxib] GI Upset Review of Systems Constitutional: Negative for chills and fever. HENT: Negative for ear pain and sore throat. Eyes: Negative for pain and redness. Respiratory: Negative for cough and shortness of breath. Cardiovascular: Negative for chest pain and palpitations. Gastrointestinal: Positive for abdominal pain and nausea. Negative for blood in stool, constipation, diarrhea and vomiting. Genitourinary: Negative for dysuria and flank pain. Musculoskeletal: Negative for myalgias and neck stiffness. Skin: Negative for color change and rash. Neurological: Negative for seizures and weakness. Psychiatric/Behavioral: Negative for agitation and hallucinations. Physical Exam BP 137/76 Pulse 133 Temp (Src) 100.8 (Oral) Resp 20 Ht 4' 11 (1.50m) Wt 158 lb (71.7kg) SpO2 98% BMI 31.89 kg/(m2). Physical Exam Constitutional: She is oriented to person, place, and time. She appears well-developed. No distress. Febrile HENT: Head: Normocephalic and atraumatic. Eyes: Pupils are equal, round, and reactive to light. Left eye exhibits no discharge. Neck: Normal range of motion. No tracheal deviation present. Cardiovascular: Regular rhythm and normal heart sounds. No murmur heard. Tachycardic Pulmonary/Chest: She has no wheezes. She exhibits no tenderness. Abdominal: Soft. She exhibits no distension. There is tenderness. There is no rebound and no guarding. Tenderness throughout Musculoskeletal: She exhibits no edema or deformity. Neurological: She is alert and oriented to person, place, and time. No cranial nerve deficit. Skin: Skin is warm. No erythema. Diagnostic Testing ED Labs Ordered and Reviewed TYPE + SCREEN (AK,AV,EU,FV,HL,EDIE,MM,SP) BLOOD CULTURE DRAW (AV,EU,FV,HL,EDIE,MM,SP) BLOOD CULTURE DRAW (AV,EU,FV,HL,EDIE,MM,SP) Procedures Medical Decision Making / ED Course ED Course Others' Documentation Comment By Time Assumed care at 3pm. Patient with perforated viscous sent from [facility] for surgery. Patient seen by surgery and declines surgery. She also now declines antibiotics and wants to leave to go home. Son at bedside the entire time and witnessed all these discussions. Patient is competent and to understand the risks. She did write a note to that effect which we will include in the chart. After much discussion, patient agrees to another round of antibiotics. Son will try to convince her to stay. Cosme Torres MD 08/24 1856 Patient now agrees to another round of antibiotics. Son at bedside. Nursing geophysical laboratory supervisor aware. Cosme Torres MD 08/24 2012 Daughter, granddaughter and son at bedside. Patient still competent, declines admission. Daughter will take patient home and try to arrange further care. Family aware they can return any time for treatment. Cosme Torres MD 08/25 2119 Encounter Diagnosis ICD-10-CM 1. Bowel perforation (HCC) K63.1 Plan The patient was found to be tachycardic she is also febrile and septic she did get a dose of Zosyn. On arrival she was given another bolus of fluids. She'll be given vitamin K here as well as 2 units of FFP she was consented for blood products she will be admitted to the surgical ICU service. The Patient was Admitted to the SICU Condition at time of disposition: stable The patient was still requesting to be discharged home, she stated that she wanted to go home and as her grandparents had and as her parents. She states she did not want to do surgery and therefore there was something for there to be done in the hospital. Dr. Reyna was present for the conversation as well as the son. The patient does recognize that if she goes home she will likely considering critical condition. She states that she wants this to happen. She was informed that a home is likely to be exceedingly painful but no less she wants to go home. She does exhibit competency, she is able to restate to me the consequences of not getting surgery. She was provided the option of being admitted for home hospice placement but she did not want to have this done either. She provided a signed affidavit. SIGNATURE: MD Liv Nieves (Res) MD Jayme Resident 08/24/17 1539 Liv (Res) MD Jayme Resident 08/24/17 1903 I have personally seen and examined this patient. I have fully participated in the care of this patient with the resident. I have reviewed all pertinent clinical information, including history, physical exam and plan I was present for the significant portion of the procedure/(s) Physical exam: HEENT: Normocephalic, atraumatic, pupils equal round reactive to light, EOMI Neck: Supple no lymphadenopathy cardiac: Regular rate and rhythm, normal S1-S2, no murmurs rubs or gallops lungs: Clear to auscultation bilaterally, no wheezes, rales, rhonchi abdomen: Soft, generalized abdominal tenderness to palpation, nondistended, normoactive bowel sounds, no peritoneal signs extremities: No cyanosis, no edema neuro: Cranial nerves II through XII grossly intact, moving all extremities equally, no focal deficits, gait is normal, 5 over 5 strength in upper and lower extremities, sensation intact bilateral upper and lower extremities, no cerebellar signs Elizabeth Nolasco MD 08/25/17 1845 ED NOTE Observed: 08/24/2017 Status: COMPLETED Source: [place] 2:05 PM CLINIC OTHER [place] REPOSITORY HNO ID: [id number] Author: Jalen Allen) JANET Barrios Service: Emergency Medicine Author Type: Registered Nurse Type: ED Notes Filed: 08/24/2017 5:24 PM Note Text: Blood cultures drawn and sent. 1st set with IV start LAC. Observed: 08/24/2017 Status: F Source: [facility] BLOOD 2:05 PM HEALTH SYSTEM REPOSITORY Test performed at [facility] No growth Performed By: #### C_BLO #### [facility] [address] [address] ED NOTE Observed: 08/24/2017 Status: COMPLETED Source: [place] 1:45 PM CLINIC OTHER CAMPUS REPOSITORY HNO ID: [id number] Author: Jalen Allen) JANET Barrios Service: Emergency Medicine Author Type: Registered Nurse Type: ED Notes Filed: 08/24/2017 1:49 PM Note Text: Pt c/o diffuse abd pain since Tuesday getting progressively worse. Sts she feels nauseated but no vomiting. Pt seen by [place] ED dx with perforated bowel and sent here for surgery consult. TYPE AND SCREEN Collected: 08/24/2017 Status: F Source: [facility] 1:45 PM HEALTH SYSTEM REPOSITORY TYPE CODE TESTS RESULT OUT OF REFERENCE UNITS RANGE LAB ABO(LOINC) A ABO Group LAB LEAD NEURODIAGNOSTIC TECHNOLOGIST(LOINC ) RH Type Positive LAB ABSCR(LOIN C) Antibody NEGATIVE Screen LAB BBCMT(LOIN C) Comment See Below Result Comment: Screen &/or Xmatch expires in 3 days at 12 midnight. Redraw patient at that time. Performed By: #### T&S #### [facility] [address] [address] ED NOTE Observed: 08/24/2017 Status: COMPLETED Source: [place] 1:39 PM CLINIC OTHER CAMPUS REPOSITORY HNO ID: [id number] Author: Elizabeth (Rn) JANET Johnson Service: (none) Author Type: Registered Nurse Type: ED Notes Filed: 08/24/2017 1:39 PM Note Text: Bed: ED-03 Expected date: Expected time: Means of arrival: Comments: Surgery Consult EMERGENCY DEPARTMENT Observed: 08/24/2017 Status: F Source: [facility] SUMMARY 11:25 AM [facility] REPOSITORY [facility] Medical Records Department [address] [place] [address] Emergency Department Summary 08/24/17 0825 MR#: [id number] Acct: [id number] Name: DIA MCCULLOUGH Rep #: [id number] : 1940 77 From: Artur Flores MD PCP: OUT OF TOWN DOCTOR Status: REG ER - ER Visit Summary Date of Service: 08/24/17 Chief Complaint: Multiple complaints History of Present Illness: The patient is a 77 F who presents with multiple complaints. She states she began with gout 5 days ago. She states that she also has a history of rheumatoid arthritis. She states that she had a sharp pain in the top of her left foot which radiated up her left leg. She began to have chills late that night. She then had a fever of 101 on Tuesday, 4 days ago. She also developed diffuse nonfocal abdominal pain. She reports nausea without vomiting. She denies diarrhea. She also complains of congestion and cough. She denies chest pain or shortness of breath. She has been taking Anacin for pain. She is also on warfarin. She is very concerned that she has internal bleeding. However she denies any hematemesis hematochezia bright red blood per rectum or melena. She is just concerned that this may be the cause of her pain given that she is on anticoagulation. She has a history of a hernia repair but no other abdominal surgeries. Physical Examination: Temperature 99.2 heart rate 128 afebrile Patient resting comfortably in no distress Moist mucous membranes Heart regular rhythm tachycardia I do not appreciate murmur gallop or rub Lungs are clear I do not appreciate rales rhonchi or wheezes The abdomen is soft nondistended but she does have diffuse abdominal tenderness no guarding no rebound Patient has tenderness of the left foot I do not appreciate any erythema there is no soft tissue swelling no physical findings suggestive of gout her calf is soft and nontender she has an easily palpable dorsalis pedis pulse with brisk capillary refill and normal sensation to light touch Test Results: KG shows sinus rhythm at a rate of 127. Laboratory studies notable for white blood cell count 15.9. Lactic acid is normal. Chest x-ray shows no acute process. Foot x-ray shows a hallux valgus deformity no acute abnormality. CT the abdomen and pelvis does show free air with subcutaneous air in the lower anterior abdominal wall as well as an 8 x 6.9 x 8 cm soft tissue collection with air possible abscess from local bowel perforation. There is also a small amount of air in the bladder which is concerning for possible colovesicular fistula. Emergency Department Course and Treatment: Was treated with IV fluids. She was given IV Phenergan. She did not want any opiate analgesics. On recheck she was having chills and repeat temperature was 100.3. The Zosyn was ordered. Although she reports Augmentin allergy her reaction was just nausea. She never had any rash breathing difficulty or waxes. She requested transfer to [place]. I spoke to [facility] transfer line and the patient will be transferred to that facility ER to ER for surgical evaluation Treatment Plan: [] Disposition: Transfer Impression: Intra-abdominal free air Possible intra-abdominal abscess Systemic inflammatory response syndrome This note was generated with Druidly dictation software. It may contain incorrect words, spelling, and punctuation that were not noted in review of the chart prior to signing ED Disposition - Plan for ED Patient: Chief Complaint: Abd Pain Referrals: [facility] Doctor,Out of [Primary Care Provider] - What to do if you have Problems For any increased pain, shortness of breath, bleeding, nausea or vomiting, chest pain, or any unexpected problems, contact your Primary Care Provider. Call [facility] ([phone]) or report to the closest Emergency Room. Call 911 if necessary. 08/24/17 1125 <Electronically signed by Artur Flores MD> Date Artur Flores MD Cosigner Signature (If Indicated): Date CC: OUT OF TOWN DOCTOR LACTIC ACID Collected: 08/24/2017 Status: F Source: [place] 8:40 AM [facility] REPOSITORY Order Comment: Yes/No query for Sepsis Lactate Rule Y TYPE CODE TESTS RESULT OUT OF RANGE REFERENCE UNITS LAB L503.6005 0.4-2.0 mmol/L Normal LACTIC ACID 1.6 Performed By: #### L503.6005 #### [facility] [facility]. [place], [place], [id number] Observed: 08/24/2017 Status: F Source: [place] CULTURE, BLOOD (WB) 8:40 AM [facility] REPOSITORY BC No growth in 5 days. Performed By: #### M200.1000 #### [facility] [address] [facility]. [place], [place], [id number] ABDOMEN/PELVIS WITH Observed: 08/24/2017 Status: F Source: [place] CONTRAST 8:25 AM [facility] REPOSITORY [facility] Imaging Services [address] [facility] [place] [address] Abdomen/Pelvis WITH Contrast MR#: [id number] Acct: [id number] Name: DIA MCCULLOUGH Rep #: [id number] : 1940 F 77 From: Adin Lara MD PCP: OUT OF TOWN DOCTOR Status: REG ER Study: Abdomen/Pelvis WITH Contrast Date of Exam: 08/24/17 Exam# [id number] Ordering Dr: Artur Flores MD STUDY: CT ABDOMEN AND PELVIS WITH CONTRAST REASON FOR EXAM: Female, 77 years old. Diffuse abdominal pain. RADIATION DOSAGE (If Supplied By Facility): CTDIvol = ( 11.92 ) mGy, DLP = ( 889.99 ) mGycm TECHNIQUE: Transaxial images were obtained from the dome of the diaphragm to the symphysis pubis without oral contrast. 80ML ml of Isovue 300 contrast was administered. Sagittal and coronal images were reconstructed. Individualized dose optimization techniques were used for this CT. COMPARISON: Comparison is made with prior study dated December 29, 2016. FINDINGS: Mild degree of increased markings at the lung bases suggestive of a bibasilar atelectasis. Coronary artery calcification. Normal liver. Normal gallbladder and extrahepatic biliary system. Normal spleen. 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 Normal pancreas. Normal bilateral adrenal glands. 3 mm nonobstructive calculus in the lower pole calyx of the right kidney. Normal left kidney. Normal visualized stomach. Normal small intestine. There is evidence of sigmoid diverticulosis. Small amount of free intraperitoneal air. There is also evidence of air in the subcutaneous tissues along the lower anterior abdominal wall. There is evidence of a 8 cm x 6.9 cm x 8 cm inhomogeneous collection of soft tissue density and air in the central pelvis. This is adjacent to the sigmoid colon. Perforated diverticulitis or carcinoma should be ruled out. The small amount of air is also seen within the anterior aspect of the urinary bladder. A colovesical fistula should be ruled out. The appendix is visualized and appears normal. There is diffuse atherosclerotic calcification of the abdominal aorta and its major visceral branches, without a demonstrated aneurysm. Normal inferior vena cava. Normal retroperitoneum. Normal urinary bladder. Normal abdominal wall. Prior right total hip replacement. Prior fusion at the L4-L5 level with multilevel disc space narrowing and degeneration. There is straightening of the normal lumbar lordosis. CT/Abdomen/Pelvis WITH Contrast IMPRESSION: Small amount of free air in the peritoneal cavity as well as within the deep subcutaneous tissues overlying the lower anterior abdominal wall. 8 cm x 6.9 cm x 8 cm inhomogeneous collection of soft tissue air in the central pelvis. Abscess from locally bowel perforation should be ruled out. A small amount of air is seen in the anterior aspect of the urinary bladder suggestive of a colovesical fistula. Electronically Signed: Adin Lara MD at 10:44 EDT Tel [phone], Service support , CC: Artur Flores MD; OUT OF TOWN DOCTOR Fruit Pitter: Signed FOOT MIN 3 VIEWS Observed: 08/24/2017 Status: F Source: [place] 8:25 AM [facility] REPOSITORY [facility] Imaging Services [address] [place] [address] Foot min 3 Views MR#: [id number] Acct: [id number] Name: DIA MCCULLOUGH Rep #: [id number] : 1940 F 77 From: Adin Lara MD PCP: OUT OF [facility] DOCTOR Status: REG ER Study: Foot min 3 Views Date of Exam: 08/24/17 Exam# [id number] Ordering Dr: Artur Flores MD STUDY: X-RAY - LEFT FOOT CLINICAL: Female, 77 years old. Pain. TECHNIQUE: view(s) of the foot. COMPARISON: None. FINDINGS: There is an enthesophyte involving the posterior superior calcaneus at the site of insertion of the Achilles tendon. Small plantar spur. Normal visualized subtalar, talonavicular, calcaneocuboid, tarsal and tarsometatarsal articulations. Normal metatarsi. There is degenerative arthrosis of the metatarsophalangeal joint of the hallux with a hallux valgus deformity. There is a bipartite tibial sesamoid. Normal interphalangeal joint of the great toe. Normal phalanges of the great toe. Normal second through fifth metatarsophalangeal joints. Normal interphalangeal joints and phalanges of the lesser toes. The soft tissue structures are unremarkable. RAD/Foot min 3 Views IMPRESSION: Hallux valgus deformity. Electronically Signed: Adin Lara MD at 10:45 EDT Tel [phone], Service support , CC: Artur Flores MD; OUT OF TOWN DOCTOR Fruit Pitter: Signed CHEST PA AND LATERAL Observed: 08/24/2017 Status: F Source: [place] 8:25 AM [facility] REPOSITORY [facility] Imaging Services [address] [place] [address] Chest PA and Lateral MR#: [id number] Acct: [id number] Name: DIA MCCULLOUGH Rep #: [id number] : 1940 F 77 From: Adin Lara MD PCP: OUT OF TOWN DOCTOR Status: REG ER Study: Chest PA and Lateral Date of Exam: 08/24/17 Exam# [id number] Ordering Dr: Artur Flores MD STUDY: X-RAY CHEST REASON FOR EXAM: Female, 77 years old. Cough. Abdominal pain. TECHNIQUE: AP and lateral views of the chest. COMPARISON: Comparison is made with prior study dated March 08, 2014. FINDINGS: Scattered calcified granulomas. There is no demonstrated pleural abnormality. Normal size heart. Normal mediastinum and kina. Normal visualized pulmonary arteries. There is atherosclerotic tortuosity of the aortic arch and descending thoracic aorta. Normal visualized thoracic spine. There is degenerative osteoarthritis of the bilateral shoulders. There is no demonstrated abnormality of the visualized soft tissue structures of the upper abdomen. RAD/Chest PA and Lateral IMPRESSION: No acute abnormality is seen. Electronically Signed: Adin Lara MD at 10:46 EDT Tel [phone], Service support , CC: Artur Flores MD; OUT OF TOWN DOCTOR Fruit Pitter: Signed PROTHROMBIN TIME W/INR Collected: 08/24/2017 Status: F Source: [place] 8:25 AM [facility] REPOSITORY TYPE CODE TESTS RESULT OUT OF RANGE REFERENCE UNITS LAB L300.4150 11.7-14.9 SECONDS High PROTIME 25.7 LAB L300.4200 Normal INR 2.3 Performed By: #### L300.3900 #### [facility] [address] [place], [address] CBC W/DIFF, AUTOMATED Collected: 08/24/2017 Status: F Source: [place] 8:18 AM [facility] REPOSITORY TYPE CODE TESTS RESULT OUT OF RANGE REFERENCE UNITS LAB L100.1000 4.4-11.0 K/mm3 High WBC 15.9 LAB L100.1200 4.2-5.4 M/mm3 Low RBC 3.86 LAB L100.1300 12.0-15.0 g/dl Low HGB 11.2 LAB L100.1400 37-47 % Low HCT 36.8 LAB L100.1500 81-99 fL Normal MCV 95.3 LAB L100.1600 27.0-32.0 pg Normal MCH 29.0 LAB L100.1700 32-36 g/gl Low MCHC 30.4 LAB L100.1810 11.6-14.6 % High RDW CV 15.3 LAB L100.1820 35.1-43.9 fl High RDW SD 53.3 LAB L100.1900 150-450 K/mm3 Normal PLT 372 LAB L100.2000 6.2-12.0 fl Normal MPV 9.3 LAB L100.2100 47-70 % High NEUT% 86.0 LAB L100.2200 19-41 % Low LY% 7.7 LAB L100.2300 0-10 % Normal MONO% 5.6 LAB L100.2400 0-5 % Normal EO% 0.4 LAB L100.2500 0-1 % Normal BASO% 0.1 LAB L100.2550 0.0-0.9 % Normal IM GRAN % 0.200 Result Comment: IG% - Immature Granulocytes (promyelocytes, myelocytes and metamyelocytes) > 1% indicates that a LEFT SHIFT is Present. LAB L100.2620 2.0-7.7 X10 3/uL High Absolute Neut 13.7 LAB L100.2720 0.83-4.51 X10 3/ul Normal Absolute Lymph 1.23 Performed By: #### L100.0100 #### [facility] [address] [place], [place], [address] COMPREHENSIVE METABOLIC Collected: 08/24/2017 Status: F Source: [place] [facility] 8:18 AM [facility] REPOSITORY TYPE CODE TESTS RESULT OUT OF RANGE REFERENCE UNITS LAB L501.0100 74-106 mg/dL Normal GLU 91 Result Comment: Please note revised GLUCOSE reference range effective 2017. LAB L501.1000 7-18 mg/dL High BUN 34 LAB L501.1100 0.55-1.02 mg/dL High CREAT,SERUM 1.44 Result Comment: The validity of the calculated GFR AND GFRAA in patients over 70 years has not been determined. Clinical correlation is essential. LAB L501.1110 >60 mL/min Low EST GFR 37 Result Comment: Non- GFR Calc LAB L501.1115 >60 mL/min Low EST GFR - AA 45 Result Comment: GFR Calc LAB L501.1255 ml/min Normal Estimated CRCL 36.43 LAB L501.1300 10-20 RATIO High BUN/CRE 23.6 LAB L501.1500 6.4-8. g/dL Normal 2 T PROT 6.6 LAB L501.1800 3.2-5. g/dL Low 0 ALB 2.0 LAB L501.1950 2.2-4. g/dL High 2 GLOB 4.6 LAB L501.2000 0.9-2. RATIO Low 4 A/G 0.4 LAB L501.2200 8.5-10 mg/dL Low .1 CA 8.3 LAB L501.4100 15-37 U/L Normal AST 31 LAB L501.4305 45-117 U/L High ALK P 173 LAB L501.4405 13-56 U/L Normal ALT 49 Result Comment: Please note revised ALT reference range effective 2017. LAB L501.4600 0.20-1.00 mg/dL Normal T BILI 0.60 LAB L501.5300 136-145 mmol/L Normal NA 142 LAB L501.5600 3.5-5.1 mmol/L Low K 3.3 LAB L501.5900 98-107 mmol/L Normal CL 106 LAB L501.6100 21.0-32.0 mmol/L Normal CO2 28.0 LAB L501.6200 5-15 Normal GAP 8 Performed By: #### L500.4050, L501.2450 #### [facility] [address] [facility] [place], [address] LIPASE Collected: 08/24/2017 Status: F Source: [place] 8:18 AM [facility] REPOSITORY TYPE CODE TESTS RESULT OUT OF RANGE REFERENCE UNITS LAB L501.2450 73-393 U/L Normal LIPASE 105 Performed By: #### L500.4050, L501.2450 #### [facility] [address] [facility] [place], [address] PROTEIN+CREATININE Collected: Status: F Source: [place] RATIO,URINE 08/03/2017 10:15 AM [facility] REPOSITORY TYPE CODE TESTS RESULT OUT OF RANGE REFERENCE UNITS LAB L501.1200 NO RANGE EST. mg/dL Normal UR CREAT 314.00 LAB L501.1930 <11.9 mg/dL High 30.7 PROTEIN,UR.R AN. LAB L501.1940 0-200 mg/g CRE Normal PROT:CRE 98 RATIO Performed By: #### L501.0900 #### [facility] [address] [facility] [place], [address] CORTISOL SERUM Collected: 08/03/2017 Status: F Source: [place] 10:05 AM [facility] REPOSITORY Order Comment: BASELINE OR POST MEDICATION STIMULATION?: 60 Min Post MED Stimulati Time Medication Given: 0900 TYPE CODE TESTS RESULT OUT OF RANGE REFERENCE UNITS LAB L509.6000 3.09-22.40 ug/dL Normal CORTISOL 18.80 Result Comment: Adult (AM) 4.30 - 22.40 ug/dL Adult (PM) 3.09 - 16.66 ug/dL Performed By: #### L509.6000 #### [facility] [address] [place], [place], [address] CBC-COMPLETE BLOOD CNT Collected: 08/03/2017 Status: F Source: [place] NO DIFF 8:35 AM [facility] REPOSITORY TYPE CODE TESTS RESULT OUT OF RANGE REFERENCE UNITS LAB L100.1000 4.4-11.0 K/mm3 Normal WBC 6.9 LAB L100.1200 4.2-5.4 M/mm3 Low RBC 3.99 LAB L100.1300 12.0-15.0 g/dl Normal HGB 12.1 LAB L100.1400 37-47 % Normal HCT 39.6 LAB L100.1500 81-99 fL High MCV 99.2 LAB L100.1600 27.0-32.0 pg Normal MCH 30.3 LAB L100.1700 32-36 g/gl Low MCHC 30.6 LAB L100.1810 11.6-14.6 % High RDW CV 14.8 LAB L100.1820 35.1-43.9 fl High RDW SD 52.5 LAB L100.1900 150-450 K/mm3 Normal PLT 325 LAB L100.2000 6.2-12.0 fl Normal MPV 9.7 Performed By: #### L100.0500 #### [facility] [address] [facility] [place], [place], [address] RENAL PROFILE Collected: 08/03/2017 Status: F Source: [place] 8:35 AM [facility] REPOSITORY TYPE CODE TESTS RESULT OUT OF RANGE REFERENCE UNITS LAB L501.0100 74-106 mg/dL Normal GLU 102 Result Comment: Fasting Glucose result from 100 to 125 mg/dL suggests IMPAIRED HOMEOSTASIS per A.D.A. criteria. Please note revised GLUCOSE reference range effective 2017. LAB L501.1000 7-18 mg/dL High BUN 25 LAB L501.1100 0.55-1.02 mg/dL High CREAT,SERUM 1.58 Result Comment: The validity of the calculated GFR AND GFRAA in patients over 70 years has not been determined. Clinical correlation is essential. LAB L501.1110 >60 mL/min Low EST GFR 34 Result Comment: Non- GFR Calc LAB L501.1115 >60 mL/min Low EST GFR - AA 41 Result Comment: GFR Calc LAB L501.1255 ml/min Normal Estimated CRCL 33.62 LAB L501.1300 10-20 RATIO Normal BUN/CRE 15.8 LAB L501.1800 3.2-5. g/dL Low 0 ALB 2.9 LAB L501.2200 8.5-10 mg/dL Normal .1 CA 8.7 LAB L501.2300 2.5-4. mg/dL Low 9 PHOS 2.3 LAB L501.5300 136-14 mmol/L Normal 5 NA 142 LAB L501.5600 3.5-5. mmol/L Normal 1 K 3.6 LAB L501.5900 98-107 mmol/L Normal CL 102 LAB L501.6100 21.0-3 mmol/L High 2.0 CO2 34.0 Performed By: #### L500.3600 #### [facility] [address] [place], [place], [address] VITAMIN D,25 HYDROXY Collected: 08/03/2017 Status: F Source: [place] 8:35 AM [facility] REPOSITORY TYPE CODE TESTS RESULT OUT OF RANGE REFERENCE UNITS LAB L506.1000 29.95-100.01 ng/mL Normal Vitamin D 61.7 25-OH Result Comment: Vitamin D 25(OH) Status Range Deficiency <20 ng/mL (50nmol/L) Insuffciency 20 - 30 ng/mL (50 - 75 nmol/L) Sufficiency 30 - 100 ng/mL (75 - 250 nmol/L) Toxicity >100 ng/mL (>250 nmol/L) Performed By: #### L506.1000 #### [facility] [address] [place], [address] PTHIN Collected: 08/03/2017 Status: F Source: [place] 8:35 AM [facility] REPOSITORY TYPE CODE TESTS RESULT OUT OF RANGE REFERENCE UNITS LAB L509.1000 18.4-80.1 pg/mL High PTHIN 86.0 Result Comment: Please Note: PTH INTACT METHOD AND REFERENCE RANGE CHANGE Effective 05/04/2017. Performed By: #### L509.1000 #### [place] [facility] [address] [place], [address] CORTISOL SERUM Collected: 08/03/2017 Status: F Source: [place] 8:35 AM [facility] REPOSITORY Order Comment: BASELINE OR POST MEDICATION STIMULATION?: Baseline TYPE CODE TESTS RESULT OUT OF RANGE REFERENCE UNITS LAB L509.6000 3.09-22.40 ug/dL Normal CORTISOL 6.40 Result Comment: Adult (AM) 4.30 - 22.40 ug/dL Adult (PM) 3.09 - 16.66 ug/dL Performed By: #### L509.6000 #### [place] [facility] [address] [place], [address] PROGRESS Observed: 06/18/2017 Status: COMPLETED Source: [place] 11:52 AM CLINIC OTHER CAMPUS REPOSITORY HNO ID: [id number] Author: Kendrick Mark Service: (none) Author Type: Physician Type: Progress Notes Filed: 06/18/2017 11:54 AM Note Text: This patient is seen back today in assessment evaluation of her chronic venous insufficiency and some ulceration that she's had on her left leg. The ulcer on the left leg is healing albeit quite slowly this is not to be unexpected in the face of the severe chronic venous insufficiency that this patient faces. She continues to wear her compression rather religiously and at this point in time is not much else we can do here. I reexamine the patient today and find that her tissues are soft and not really woody in nature. She has good dorsal pedal pulses bilaterally and there is no evidence of arterial insufficiency contributing to her ulcer nonhealing. Her venous testing is really not shown anything that we would treat that would do anything other than decrease ulcer recurrence and would not necessarily help with ulcer healing. At this point in time ongoing wound care management is appropriate. She does have a couple new bruises and skin tears on the right lower extremity that do not appear to be as significant as he ulcerated lesion on the left. Overall the patient is stable and I tell him that I will see her back in a couple months for reassessment to see if she is completely healed up. Unfortunately we really don't have much else to offer this patient other than compression for treatment of her venous insufficiency.I spent 15 minutes in the visit, with more than 50% of the total rssj-ic-jdns time of the visit in counseling / coordination of care. MARIBELL Observed: 06/17/2017 Status: COMPLETED Source: [place] 9:45 AM CLINIC OTHER CAMPUS REPOSITORY Office Visit (AGMIL) DIA MCCULLOUGH ([id number]) 1940 F [facility] Date Time Provider Department 06/17/17 9:45 AM KENDRICK MARK During your visit today, we recorded the following information about you: Respiration Blood pressure Weight Height 18/minute 124/70 72.6 kg 1.499 m Kendrick Mark MD 06/18/2017 11:54 AM Signed This patient is seen back today in assessment evaluation of her chronic venous insufficiency and some ulceration that she's had on her left leg. The ulcer on the left leg is healing albeit quite slowly this is not to be unexpected in the face of the severe chronic venous insufficiency that this patient faces. She continues to wear her compression rather religiously and at this point in time is not much else we can do here. I reexamine the patient today and find that her tissues are soft and not really woody in nature. She has good dorsal pedal pulses bilaterally and there is no evidence of arterial insufficiency contributing to her ulcer nonhealing. Her venous testing is really not shown anything that we would treat that would do anything other than decrease ulcer recurrence and would not necessarily help with ulcer healing. At this point in time ongoing wound care management is appropriate. She does have a couple new bruises and skin tears on the right lower extremity that do not appear to be as significant as he ulcerated lesion on the left. Overall the patient is stable and I tell him that I will see her back in a couple months for reassessment to see if she is completely healed up. Unfortunately we really don't have much else to offer this patient other than compression for treatment of her venous insufficiency.I spent 15 minutes in the visit, with more than 50% of the total ggkk-je-kqkb time of the visit in counseling / coordination of care. Referring Provider: MALLORIE WHEELER [[id number]] Allergies As of Date: 06/17/2017 Noted Allergy Reaction ANSAID (FLURBIPROFEN) 12/22/2010 8 - GI Upset Comments: Ulcer ARTHROTEC 50 (DICLOFENAC-MISOPROS*06/24/2011 8 - GI Upset Comments: Cytotec upset stomach more than just the voltaren by itself AUGMENTIN (AMOXICILLIN-POT CLAVUL*08/31/2008 8 - GI Upset Comments: tolerates cephalexin DOXYCYCLINE 03/17/2005 8 - GI Upset ERYTHROMYCIN 03/17/2005 8 - GI Upset GRASS POLLEN 02/17/2006 LODINE (ETODOLAC) 03/17/2005 NSAIDS (NON-STEROIDAL ANTI-INFLAM*03/11/2017 16 - Unknown POISON LISA 03/17/2005 VIOXX (ROFECOXIB) 03/17/2005 8 - GI Upset Date Reviewed: 06/17/2017 Reviewed by: Stephen Toledo LPN - Fully Assessed Reason for Visit: Venous Insufficiency [609] Cmt: iDa is here for follow up. 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 As needed f* LEVOTHYROXINE 50 MCG TABLET Take 50 mcg by mouth once rick* MUPIROCIN 2 % TOPICAL OINTMENT POLYETHYLENE GLYCOL 3350 17 G* PREDNISONE 20 MG TABLET WARFARIN 2 MG TABLET WARFARIN 2.5 MG TABLET ONDANSETRON 4 MG DISINTEGRATI* Take 1 tablet by mouth every * TRAMADOL 50 MG TABLET Take 1 tablet by mouth once d* CHOLECALCIFEROL (VITAMIN D3) * Take 1 capsule every 3 weeks POTASSIUM CHLORIDE ER 10 MEQ * Take 1 tablet by mouth twice * HYDROCHLOROTHIAZIDE 25 MG TAB* Take 1 tablet by mouth once d* RANITIDINE 150 MG TABLET Take 1 tablet by mouth twice * DICLOFENAC 1 % TOPICAL GEL Apply to affected area four t* ALBUTEROL SULFATE HFA 90 MCG/* Inhale 2 Puffs as instructed * FOLIC ACID 1 MG TABLET Take 2.2 mg by mouth once rick* CEPHALEXIN 500 MG CAPSULE DICLOFENAC SODIUM 75 MG TABLE* FERROUS SULFATE 325 MG (65 MG* Take 325 mg by mouth daily wi* Medication notes this encounter CEPHALEXIN 500 MG CAPSULE >> Stephen Toledo LPN 06/17/2017 10:57 AM >> STEPHEN TOLEDO LPN TueJun 17, 2017 10:57 AM Not taking DICLOFENAC SODIUM 75 MG TABLET,DELAYED RELEASE >> Stephen Toledo LPN 06/17/2017 10:57 AM >> STEPHEN TOLEDO LPN TueJun 17, 2017 10:57 AM Not taking Problem List As Of Date 06/17/2017 Noted Resolved PURE HYPERCHOLESTEROLEM [E78.00] DERMATITIS NOS [L25.9] ENTHESOPATHY OF HIP [M76.899] GASTRITIS/DUODEN NOS W/O HEMORRH [K29.70, K29.9* Essential hypertension [I10] ADHESIVE CAPSULIT SHLDER [M75.00] INVALID FOR* ALLERGIC RHINITIS NOS [J30.9] INVALID FOR* Inflammatory Polyarthropathy [M06.4] INVALID FOR* Asthma [J45.909] Vitamin D deficiency [E55.9] INVALID FOR* Osteoarthrosis, unspecified whether generalized*INVALID FOR* Osteoarthrosis, unspecified whether generalized*INVALID FOR* Fibromyalgia [M79.7] INVALID FOR* 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 More... DVT (deep venous thrombosis) (HCC) [I82.409] INVALID FOR* More... Pulmonary embolism, bilateral (HCC) [I26.99] INVALID FOR* More... Pulmonary emboli (HCC) [I26.99] INVALID FOR* More... 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 Follow-up and Disposition History Recorded Letter Text Encounter Status:Closed by KENDRICK MARK MD on 06/18/17 PROTHROMBIN TIME W/INR Collected: 06/16/2017 Status: F Source: [place] 11:54 AM [facility] REPOSITORY TYPE CODE TESTS RESULT OUT OF RANGE REFERENCE UNITS LAB L300.4150 11.7-14.9 SECONDS High PROTIME 20.9 LAB L300.4200 Normal INR 1.9 Performed By: #### L300.3900 #### [facility] [address] [place], [place], [address] PROTHROMBIN TIME W/INR Collected: 05/27/2017 Status: F Source: [place] 10:04 AM [facility] REPOSITORY TYPE CODE TESTS RESULT OUT OF RANGE REFERENCE UNITS LAB L300.4150 11.7-14.9 SECONDS High PROTIME 21.6 LAB L300.4200 Normal INR 2.0 Performed By: #### L300.3900 #### [facility] [address] [place], [address] CBC W/DIFF, AUTOMATED Collected: 05/11/2017 Status: F Source: [place] 10:11 AM [facility] REPOSITORY TYPE CODE TESTS RESULT OUT OF RANGE REFERENCE UNITS LAB L100.1000 4.4-11.0 K/mm3 Normal WBC 7.2 LAB L100.1200 4.2-5.4 M/mm3 Low RBC 3.84 LAB L100.1300 12.0-15.0 g/dl Low HGB 11.8 LAB L100.1400 37-47 % Normal HCT 38.8 LAB L100.1500 81-99 fL High MCV 101.0 LAB L100.1600 27.0-32.0 pg Normal MCH 30.7 LAB L100.1700 32-36 g/gl Low MCHC 30.4 LAB L100.1810 11.6-14.6 % High RDW CV 15.6 LAB L100.1820 35.1-43.9 fl High RDW SD 57.3 LAB L100.1900 150-450 K/mm3 Normal PLT 332 LAB L100.2000 6.2-12.0 fl Normal MPV 10.1 LAB L100.2100 47-70 % Normal NEUT% 62.3 LAB L100.2200 19-41 % Normal LY% 27.6 LAB L100.2300 0-10 % Normal MONO% 8.1 LAB L100.2400 0-5 % Normal EO% 1.5 LAB L100.2500 0-1 % Normal BASO% 0.4 LAB L100.2550 0.0-0.9 % Normal IM GRAN % 0.100 Result Comment: IG% - Immature Granulocytes (promyelocytes, myelocytes and metamyelocytes) > 1% indicates that a LEFT SHIFT is Present. LAB L100.2620 2.0-7.7 X10 3/uL Normal Absolute Neut 4.5 LAB L100.2720 0.83-4.51 X10 3/ul Normal Absolute Lymph 1.98 Performed By: #### L100.0100, L101.9900 #### [facility] [address] [place], [place], [id number] (486) ERYTHROCYTE SED RATE Collected: 05/11/2017 Status: F Source: HOOD 10:11 AM [facility] REPOSITORY TYPE CODE TESTS RESULT OUT OF RANGE REFERENCE UNITS LAB L102.0000 0-30 mm/hr Normal SED RATE 23 Performed By: #### L100.0100, L101.9900 #### [facility] [address] [place], [place], [address] PROTHROMBIN TIME W/INR Collected: 05/11/2017 Status: F Source: HOOD 10:11 AM [facility] REPOSITORY TYPE CODE TESTS RESULT OUT OF RANGE REFERENCE UNITS LAB L300.4150 11.7-14.9 SECONDS High PROTIME 30.4 LAB L300.4200 Normal INR 3.1 Performed By: #### L300.3900 #### [facility] [address] [place], [place], [address] HEMOGLOBIN A1C Collected: 05/11/2017 Status: F Source: HOOD 10:11 AM [facility] REPOSITORY TYPE CODE TESTS RESULT OUT OF RANGE REFERENCE UNITS LAB L501.9985 4.2-6.3 % Normal HGB A1C 6.0 Performed By: #### L501.9985 #### [facility] [address] [place], [address] VITAMIN D,25 HYDROXY Collected: 05/11/2017 Status: F Source: [place] 10:11 AM [facility] REPOSITORY TYPE CODE TESTS RESULT OUT OF RANGE REFERENCE UNITS LAB L506.1000 ng/mL Normal Vitamin D 61.3 25-OH Result Comment: Vitamin D 25(OH) Status Range Deficiency <20 ng/mL (50nmol/L) Insuffciency 20 - 30 ng/mL (50 - 75 nmol/L) Sufficiency 30 - 100 ng/mL (75 - 250 nmol/L) Toxicity >100 ng/mL (>250 nmol/L) Performed By: #### L506.1000 #### [facility] [address] [place], [address] COMPREHENSIVE METABOLIC Collected: 05/11/2017 Status: F Source: [place] [facility] 10:11 AM [facility] REPOSITORY TYPE CODE TESTS RESULT OUT OF RANGE REFERENCE UNITS LAB L501.0100 70-110 mg/dL Normal GLU 85 LAB L501.1000 7-18 mg/dL High BUN 27 LAB L501.1100 0.55-1.02 mg/dL High 1.33 CREAT,SERUM Result Comment: The validity of the calculated GFR AND GFRAA in patients over 70 years has not been determined. Clinical correlation is essential. LAB L501.1110 >60 mL/min Low EST GFR 41 Result Comment: Non- GFR Calc LAB L501.1115 >60 mL/min Low EST GFR - AA 50 Result Comment: GFR Calc LAB L501.1300 10-20 RATIO High BUN/CRE 20.3 LAB L501.1500 6.4-8.2 g/dL T Normal PROT 6.4 LAB L501.1800 3.4-5.0 g/dL Low ALB 3.0 Result Comment: Please note revised Albumin AND Globulin reference range effective 2017. LAB L501.1950 2.2-4.2 g/dL Normal GLOB 3.4 LAB L501.2000 0.9-2.4 RATIO Normal A/G 0.9 LAB L501.2200 8.5-10.1 mg/dL Low CA 8.4 LAB L501.4100 15-37 U/L Low AST 13 LAB L501.4305 45-117 U/L Low ALK P 44 LAB L501.4405 12-78 U/L Normal ALT 22 LAB L501.4600 0.20-1.00 mg/dL Normal T BILI 0.40 LAB L501.5300 136-145 mmol/L Normal NA 144 LAB L501.5600 3.5-5.1 mmol/L Low K 3.4 LAB L501.5900 98-107 mmol/L Normal CL 105 LAB L501.6100 21.0-32.0 mmol/L Normal CO2 32.0 LAB L501.6200 5-15 Normal GAP 7 Performed By: #### L500.4050, L500.4100, L501.9520 #### [facility] [address] [place], [place], [address] LIPID PROFILE Collected: 05/11/2017 Status: F Source: [place] 10:11 AM [facility] REPOSITORY TYPE CODE TESTS RESULT OUT OF RANGE REFERENCE UNITS LAB L501.4900 200 mg/dL High CHOL 243 Result Comment: <200 mg/dL Desirable 200-240 mg/dL Borderline >240 mg/dL High Risk LAB L501.5000 mg/dL Normal TRIG 135 Result Comment: The drugs N-Acetylcysteine and Metamizole may falsely depress this assay. Serum Triglycerides Reference Interval Normal <150 mg/dL Borderline high 150 - 199 mg/dL High 200 - 499 mg/dL Very High > or = 500 mg/dL LAB L501.6400 mg/dL Normal HDL 80 Result Comment: The drugs N-Acetylcysteine and Metamizole may falsely depress this assay. Reference Range HDL <40 mg/dL Low HDL Cholesterol HDL >or= 60 mg/dL High HDL Cholesterol LAB L501.6500 0-130 mg/dL High LDL 136 LAB L501.6600 5-40 mg/dL Normal VLDL 27 Performed By: #### L500.4050, L500.4100, L501.9520 #### [facility] [address] [place], [place], [id number] THYROID STIM HORMONE Collected: 05/11/2017 Status: F Source: [place] (TSH) 10:11 AM [facility] REPOSITORY TYPE CODE TESTS RESULT OUT OF RANGE REFERENCE UNITS LAB L501.9520 0.358-3.74 uIU/mL Normal TSH 1.24 Performed By: #### L500.4050, L500.4100, L501.9520 #### [facility] [address] [place], [address] CNOV Observed: 12/13/2016 Status: COMPLETED Source: [place] 1:45 PM CLINIC OTHER CAMPUS REPOSITORY Office Visit (AGGASTACC) DIA MCCULLOUGH ([id number]) 1940 F [facility] Date Time Provider Department 12/13/16 1:45 PM ELEUTERIO BRAY AGGASTACC During your visit today, we recorded the following information about you: Pulse Blood pressure Weight Height 110/minute 181/96 73.8 kg 1.524 m Elizabeth Mixon 12/09/2017 1:37 PM Signed The appointment was cancelled for this patient. Elizabeth Mixon Allergies As of Date: 12/13/2016 Noted Allergy Reaction ANSAID (FLURBIPROFEN) 12/22/2010 8 - GI Upset Comments: Ulcer ARTHROTEC 50 (DICLOFENAC-MISOPROS*06/24/2011 8 - GI Upset Comments: Cytotec upset stomach more than just the voltaren by itself AUGMENTIN (AMOXICILLIN-POT CLAVUL*08/31/2008 8 - GI Upset Comments: tolerates cephalexin DOXYCYCLINE 03/17/2005 8 - GI Upset ERYTHROMYCIN 03/17/2005 8 - GI Upset GRASS POLLEN 02/17/2006 LODINE (ETODOLAC) 03/17/2005 POISON LISA 03/17/2005 VIOXX (ROFECOXIB) 03/17/2005 8 - GI Upset Date Reviewed: 12/13/2016 Reviewed by: Arpita Goodman - Fully Assessed Reason for Visit: Consult [502] Cmt: WEAKNESS IN THE ABD AREA Appointment Cancelled [1023] Reason For Visit History Recorded Primary Visit Diagnosis:APPOINTMENT CANCELLED Prescriptions as of 12/13/2016 Sig: X FERROUS SULFATE 325 MG (65 MG* Take 325 mg by mouth daily wi* X WARFARIN 3 MG TABLET Take 4.5mg Wed and 3mg other * ONDANSETRON 4 MG DISINTEGRATI* Take 1 tablet by mouth every * X TRAMADOL 50 MG TABLET Take 1 tablet by mouth once d* Patient taking differently: Take 50 mg by mouth every 6 h* X CHOLECALCIFEROL (VITAMIN D3) * Take 1 capsule every 3 weeks X POTASSIUM CHLORIDE ER 10 MEQ * Take 1 tablet by mouth twice * X HYDROCHLOROTHIAZIDE 25 MG TAB* Take 1 tablet by mouth once d* X PREDNISONE 5 MG TABLET Taking 10 mg in the morning a* X RANITIDINE 150 MG TABLET Take 1 tablet by mouth twice * X DICLOFENAC 1 % TOPICAL GEL Apply to affected area four t* X ALBUTEROL SULFATE HFA 90 MCG/* Inhale 2 Puffs as instructed * X FOLIC ACID 1 MG TABLET Take 2.2 mg by mouth once rick* X HYDROCODONE 5 MG-ACETAMINOPHE* Take 0.5-1 tablets by mouth o* X SODIUM CHLORIDE 0.9 % INTRAVE* Inject 200 mL/hr intravenousl* X COMPOUNDED PRESCRIPTION START IV X HYDROXYCHLOROQUINE 200 MG TAB* Take 1 tablet by mouth twice * X COLLAGENASE CLOSTRIDIUM HISTO* Apply 1 application to affect* Problem List As Of Date 12/13/2016 Noted Resolved PURE HYPERCHOLESTEROLEM [E78.00] DERMATITIS NOS [L25.9] ENTHESOPATHY OF HIP [M76.899] GASTRITIS/DUODEN NOS W/O HEMORRH [K29.70, K29.9* Essential hypertension [I10] ADHESIVE CAPSULIT SHLDER [M75.00] INVALID FOR* ALLERGIC RHINITIS NOS [J30.9] INVALID FOR* Inflammatory Polyarthropathy [M06.4] INVALID FOR* Asthma [J45.909] Vitamin D deficiency [E55.9] INVALID FOR* Osteoarthrosis, unspecified whether generalized*INVALID FOR* Osteoarthrosis, unspecified whether generalized*INVALID FOR* Fibromyalgia [M79.7] INVALID FOR* Sicca syndrome [M35.00] INVALID FOR* DVT, Left Leg [I82.409] INVALID FOR* Inflammatory polyarthritis (HCC) [M06.4] More... More... DVT (deep venous thrombosis) (HCC) [I82.409] INVALID FOR* More... Pulmonary embolism, bilateral (HCC) [I26.99] INVALID FOR* More... Pulmonary emboli (HCC) [I26.99] INVALID FOR* More... PMR (polymyalgia rheumatica) (HCC) [M35.3] INVALID FOR* Generalized osteoarthritis [M15.9] CKD (chronic kidney disease) stage 3, GFR 30-59*INVALID FOR* Venous insufficiency (chronic) (peripheral) [I8* Encounter Status:Closed by ELIZABETH MIXON on 12/09/17 ALLERGIES ALLERGIES DATE TYPE / CODE NAME / CODE REACTION SEVERITY SOURCE 02/16/2018 Drug diclofenac Upset Stomach Unknown [place] Allergy/416 sodium/[id number](R [facility] 969592[facility] 02/16/2018 Drug amoxicillin Upset Stomach Unknown [place] Allergy/416 trihydrate/[id number] Community 726702([facility] 07([facility] Repository 02/16/2018 Drug potassium Upset Stomach Unknown [place] Allergy/416 clavulanate/M520115 Community 788431([facility] 02/16/2018 Drug NSAIDS Other Unknown [place] Allergy/416 (Non-Steroidal Community 798106([facility] Anti-Inflamma/F0010 [facility] [place] [address](RXNORM) Repository 02/16/2018 Drug misoprostol/M357845 Upset Stomach Unknown [place] Allergy/416 133(RXNORM) Community 803767([facility] ED CT) Repository 02/16/2018 Drug flurbiprofen/J53801 Upset Stomach Unknown [place] Allergy/416 2382(RXNORM) Community 556085([facility] ED CT) Repository 02/16/2018 Drug doxycycline/O558578 Upset Stomach Unknown [place] Allergy/416 748(RXNORM) Community 519035([facility] ED CT) Repository 02/16/2018 Drug erythromycin Upset Stomach Unknown [place] Allergy/416 base/[id number](RXN Community 775239([facility] 02/16/2018 Drug etodolac/[id number] Upset Stomach Unknown [place] Allergy/416 (RXNORM) Community 553049([facility] ED CT) Repository 02/16/2018 Drug rofecoxib/[id number] Upset Stomach Unknown [place] Allergy/416 7(RXNORM) Community 317479([facility] ED CT) Repository 02/16/2018 Drug Iodine and Iodide Unknown Unknown [place] Allergy/416 Containing Community 480088([facility] Produc/[id number]([facility] ED CT) XNORM) Repository 03/11/2017 Drug NSAIDS UNKNOWN [facility] Class/25323 (NON-STEROIDAL Other [place] 1003(SNOMED ANTI-INFLAMMATORY Repository CT) DRUG) 06/24/2011 DRUG/770051 DICLOFENAC-MISOPROS GI UPSET [facility] 003(SNOMED MARIAJOSE Other [place] CT) Repository 12/22/2010 DRUG FLURBIPROFEN GI UPSET [facility] INGREDI/419 Other [place] 412870(SNOM Repository ED CT) 08/31/2008 DRUG/519583 AMOXICILLIN-POT GI UPSET [facility] 003(SNOMED CLAVULANATE Other [place] CT) Repository 02/17/2006 DRUG GRASS POLLEN [facility] INGREDI/419 Other [place] 223620(SNOM Repository ED CT) 03/17/2005 DRUG DOXYCYCLINE GI UPSET [facility] INGREDI/419 Other [place] 564720(SNOM Repository ED CT) 03/17/2005 DRUG/826578 ERYTHROMYCIN GI UPSET [facility] 003(SNOMED Other [place] CT) Repository 03/17/2005 DRUG ETODOLAC [facility] INGREDI/419 Other [place] 749777(SNOM Repository ED CT) 03/17/2005 Environ/420 POISON LISA [facility] 080069(SNOM Other [place] ED CT) Repository 03/17/2005 DRUG ROFECOXIB GI UPSET [facility] INGREDI/419 Other [place] 444336(SNOM Repository ED CT) NG/77944150 FLURBIPROFEN [facility] 6(SNOMED Health System CT) Repository NG/41503244 DICLOFENAC-MISOPROS [facility] 6(SNOMED MARIAJOSE Health System CT) Repository NG/29266008 AMOXICILLIN-POT [facility] 6(SNOMED CLAVULANATE Health System CT) Repository NG/50884680 DOXYCYCLINE [facility] 6(SNOMED Health System CT) Repository NG/26884098 ERYTHROMYCIN [facility] 6(SNOMED Health System CT) Repository NG/50145115 GRASS POLLEN [facility] 6(SNOMED Health System CT) Repository NG/53164088 ETODOLAC [facility] 6(SNOMED Health System CT) Repository NG/41340935 NSAIDS [facility] 6(SNOMED (NON-STEROIDAL Health System CT) ANTI-INFLAMMATORY Repository DRUG) NG/63737393 POISON LISA [facility] 6(SNOMED Health System CT) Repository NG/15830393 ROFECOXIB [facility] 6(beatlab System CT) Repository ENCOUNTERS ENCOUNTERS ADMIT/DISCHARGE ACCOUNT NUMBER ADMITTING ENCOUNTER LOCATION SOURCE CLASS 04/21/2018 [id number] Ambulatory [facility] ding:MEDOUTP Repository 04/21/2018 [id number] Ambulatory [facility] MEDICAL Repository CENTERBuildi ng:AGWM 04/17/2018 [id number] [facility] ding:MEDOUTP Repository 04/13/2018 [id number] Ambulatory [facility] ding:MEDOUTP Repository 04/10/2018 [id number] Ambulatory [facility] ding:MEDOUTP Repository 04/07/2018 [id number] Ambulatory [facility] ding:MEDOUTP Repository 03/31/2018 [id number] Ambulatory [facility] MEDICAL Repository CENTERBuildi ng:HEOB 03/28/2018 [id number] Ambulatory [facility] ding:MFPLAB Repository 03/15/2018 [id number] Ambulatory [facility] ding:MFPLAB Repository 03/02/2018 [id number] Ambulatory [facility] ding:MTRAD Repository 02/22/2018 [id number] Ambulatory BMSBuilding: [place] BMS.CF.[facility] Repository 02/22/2018 [id number] Ambulatory [facility] ding:CVS Repository 02/16/2018/02/17/20 [id number] Ambulatory BMSBuilding: [place] 18 BMS.NOW [facility] Repository 02/15/2018/02/16/20 [id number] Ambulatory BMSBuilding: [place] 18 BMS.[facility] Repository 02/15/2018 [id number] Ambulatory BMSBuilding: [place] BMS.[facility] Repository 02/14/2018 [id number] Ambulatory BMSBuilding: [place] BMS.[facility] Repository 02/09/2018/02/10/20 [id number] [facility], Ambulatory [address] Repository 02/09/2018/02/10/20 [id number] [facility], Inpatient [address] MEDICAL Repository CENTERBuildi ng:CCLERoom: POOLBed: 01/26/2018 [id number] Ambulatory [facility] ding:CT Repository 01/26/2018 [id number] Ambulatory [facility] ding:MFPLAB Repository 01/20/2018 [id number] Ambulatory [facility] ding:MFPLAB Repository 01/12/2018 [id number] Ambulatory [facility] ding:MFPLAB Repository 12/30/2017 [id number] Ambulatory [facility] MEDICAL Repository CENTERBuildi ng:AGWM 12/24/2017 [id number] Ambulatory [facility] ding:WC Repository 11/24/2017 [id number] Ambulatory [facility] ding:MFPLAB Repository 11/23/2017 [id number] Ambulatory [facility] ding:HHLAB Repository 11/17/2017/12/14/19 [id number] Ambulatory [address] ding:WC Repository 11/10/2017/11/11/19 [id number] [facility], Ambulatory [address] Repository 11/10/2017/11/11/19 [id number] [facility], Inpatient [address] MEDICAL Repository CENTERBuildi ng:AKIRRoom: POOLBed: 11/09/2017/11/13/19 [id number] Ambulatory [address] ding:HHLAB Repository 11/03/2017/11/04/19 [id number] [facility], Ambulatory [address] Other [place] Repository 11/03/2017/11/04/19 [id number] [facility], Inpatient AK[facility] MEDICAL Repository TOLEDOBuild ng:AKIRRoom: POOLBed: 10/27/2017 [id number] Ambulatory [facility] Repository 10/27/2017/10/28/19 [id number] Ambulatory [place] [address] MEDICAL Repository TOLEDOBuildi ng:AKXRCT 10/27/2017 [id number] Ambulatory [facility] Repository 10/27/2017/10/28/19 [id number] [facility], Ambulatory [address] Repository 10/27/2017/10/28/19 [id number] [facility], Inpatient [place] [facility] [address] [facility] MEDICAL Repository TOLEDOBuild ng:AKIRRoom: POOLBed: 10/27/2017/10/28/19 [id number] Ambulatory [place] [address] MEDICAL Repository TOLEDOBuildi ng:AKXRCT 10/18/2017/11/01/19 [id number] JordanAlejo Inpatient [place] 18 [facility] ding:TCURoom Repository : HXA85Ohp: 10/08/2017/10/19/19 [id number] GAL[place], Inpatient [place] [address] MANOHAR A [facility] Repository 10/08/2017/10/19/19 [id number] GALAN, Inpatient AKRON [place] [facility] 18 [facility] MEDICAL [facility]ository [facility] 5108Bed: 10/08/2017/10/09/19 [id number] Emergency [place] 18 [facility] ding:ED Repository 10/08/2017 [id number] Ambulatory BMSBuilding[facility] [place] [facility] 10/08/2017/10/09/19 [id number] Emergency [place] 18 [facility] ding:ED Repository 10/05/2017/10/06/19 [id number] Ambulatory [place] 18 [facility] ding:PT Repository 09/21/2017/10/01/19 [id number] Alejo Ortega Inpatient [place] 18 [place] Encounter [facility] ding:TCURoom Repository : WVN82Nnv: 1 09/18/2017/09/22/19 [id number] [place], Inpatient [place] 18 [facility] Encounter [facility] ding:PCURoom Repository : [id number]: 1 09/18/2017 [id number] [place], Ambulatory BMSBuilding: Annmarie Ghasem BMS.[facility] Repository 09/18/2017 [id number] [place], Ambulatory BMSBuilding: Annmarie Ghasem BMS.[facility] Repository 09/18/2017 [id number] [place], Ambulatory BMSBuilding: Ossineke Ghasem BMS.[facility] Repository 09/18/2017 [id number] [place], Ambulatory BMSBuilding: Annmarie Ghasem BMS.[facility] Repository 09/17/2017/09/18/19 [id number] Ambulatory [address] ding:[facility] Repository Room: [facility] 09/15/2017 [id number] Ambulatory [facility] MEDICAL [facility] 09/05/2017 [id number] Ambulatory [facility] MEDICAL [facility]AG[facility] 09/04/2017/09/06/19 [id number] Emergency [address] ding:ED Repository 09/04/2017 [id number] Ambulatory [facility] ding:ED Repository 08/24/2017/08/25/19 [id number] Inpatient [place] 18 Encounter Clinic Other [place] Repository 08/24/2017/08/25/19 [id number] DENIS REYNA Inpatient [address] MEDICAL [facility]AKEDRoom: EDBed: 03 08/24/2017/08/25/19 [id number] Emergency [address] ding:ED Repository 08/03/2017 [id number] Ambulatory [facility] ding:MEDOUTP Repository 08/02/2017 [id number] Ambulatory [facility] Repository 07/15/2017 [id number] Ambulatory [facility] ding:LAB Repository 06/17/2017/06/17/19 [id number] Ambulatory [address] Other [place] Repository 06/17/2017/06/17/19 [id number] Ambulatory AKRON Silvia [address] MEDICAL Repository CENTERBuildi ng:AGWM 06/16/2017/06/16/19 [id number] Ambulatory [address] ding:LAB Repository 05/27/2017/05/27/19 [id number] Ambulatory [address] ding:LAB Repository 05/11/2017 [id number] [facility] ding:LAB Repository 12/13/2016 [id number] Ambulatory [facility] Repository PAYERS PAYERS ENCOUNTER GUARANTOR PAYER SUBSCRIBER SOURCE 04/21/2018 DIA A Primary DIA Mcfadden [id number] Insurance:AETNA [facility]: [facility] Number: [id number] [id number] Repository [address]Hpr: 330) Date:9570-32-24MV [phone] () [place] [address]NS: 04/21/2018 Secondary NOT GIVENUNK Annmarie Insurance:SELF PAY [facility] Number: Effective Repository Date:2018-04-07 04/21/2018 DIA A Primary [facility] [place] [facility]ETNA [facility] [id number] MEDICARE PPOPolicy [id number] [facility] Number: DRIVEUNIT [id number] [address] Date: [address]Enq: () 04/17/2018 DIA A Primary DIA Mauro Annmarie [id number] Insurance:AETNA PEACOCKDOB: Community NANCY MCRPolicy Number: [id number] [id number] Repository [address]Jiy: (330) Date:0031-97-94XB [phone] () 762360[place] [address]EL: 04/17/2018 Secondary NOT GIVENUNK Annmarie Insurance:SELF PAY [facility] Number: Effective Repository Date:2018-04-07 04/13/2018 DIA A Primary DIA A Annmarie [id number] Insurance:AETNA PEACOCKDOB: Community NANCY MCRPolicy Number: [id number]BD4WPVEffective Repository [address]Zvo: (486) Date:7313-96-44YG [phone] () 753341[place] [address]BW: 04/13/2018 Secondary NOT GIVENUNK [place]ineke Insurance:SELF PAY [facility] Number: Effective Repository Date:2018-04-07 04/10/2018 DIA A Primary DIA A [place] [id number] Insurance:AETNA PEACOCKDOB: Community NANCY [facility]Policy Number: [id number] [address] StreetBD4WPVEffective Repository [address]Mfw: (330) Date:2134-63-93OM [phone] () 902406[place] [address]TN: 04/10/2018 Secondary NOT GIVENUNK Annmarie Insurance:SELF PAY [facility] Number: Effective Repository Date:2018-04-07 04/07/2018 DIA A Primary DIA A [place] [id number] Insurance:AETNA PEACOCKDOB: Community NANCY [facility]Policy Number: [id number] [id number] Repository [address]Eyn: (330) Date:2066-38-92NY [phone] () 340286[place] [address]HI: 04/07/2018 Secondary NOT GIVENUNK Annmarie Insurance:SELF PAY [facility] Number: Effective Repository Date:2018-04-03 03/31/2018 DIA A Primary DIA A [facility] PEACOCKDOB: Insurance:AETNA [facility] MEDICARE PPOPolicy [id number] Repository [place] Number: DRIVEUNIT [id number] [address] Date: [address]Gnq: () 03/28/2018 DIA A Primary DIA A [place] [id number] Insurance:AETNA PEACOCKDOB: [facility] Number: [id number] [id number] Repository [address]Waf: (274) Date:4458-73-59OL [phone] () 764206EFS[place] [address]WR: 03/28/2018 Secondary NOT GIVENUNK [place] Insurance:SELF PAY [facility] Number: Effective Repository Date:2018-03-28 03/15/2018 DIA A Primary DIA A Annmarie [id number] Insurance:AETNA PEACOCKDOB: [facility] Number: [id number] [id number] Repository [address]Grl: (691) Date:8070-47-22JP [phone] () 499876[place] [address]VW: 03/15/2018 Secondary NOT GIVENUNK [place] Insurance:SELF PAY [facility] Number: Effective Repository Date:2018-03-15 03/02/2018 DIA A Primary DIA A Annmarie [id number] Insurance:AETNA PEACOCKDOB: [facility] Number: [id number] [id number] Repository [address]Yxx: (330) Date:0982-11-50KE [phone] (HP) [id number] [place] [address]FV: 03/02/2018 Secondary NOT GIVENUNK [place] Insurance:SELF PAY [facility] Number: Effective Repository Date:2018-03-02 02/22/2018 DIA A Primary DIA A Annmarie [id number] Insurance:AETNA PEACOCKDOB: Community NANCY [facility] CENTERPolicy Number: [id number] [id number] Repository [address]Zen: (330) Date:2506-81-17BY [phone] (HP) [id number] [place] [address]XF: 02/22/2018 Secondary NOT GIVENUNK [place] Insurance:SELF PAY [facility] Number: Effective Repository Date:2018-02-22 02/22/2018 DIA A Primary DIA A [place] [id number] Insurance:AETNA PEACOCKDOB: Community NANCY [facility] CENTERPolicy Number: [id number]BD4WPVEffective Repository [address]Arn: (330) Date:8035-95-37RE [phone] () [id number] [place] [address]GG: 02/22/2018 Secondary NOT GIVENUNK [place] Insurance:SELF PAY [facility] Number: Effective Repository Date:2018-02-15 02/16/2018 DIA A Primary DIA A Annmarie [id number] Insurance:AETNA PEACOCKDOB: Community NANCY [facility] CENTERPolicy Number: [id number] [id number] Repository [address]Tmo: (330) Date:7183-49-90IP [phone] (HP) [id number] [place] [address]YN: 02/16/2018 Secondary NOT GIVENUNK Annmarie Insurance:SELF PAY [facility] Number: Effective Repository Date:2018-02-16 02/15/2018 DIA A Primary DIA A Annmarie [id number] Insurance:AETNA PEACOCKDOB: Community NANCY [facility]ENTERPolicy Number: [id number] [id number] Repository 120[address]Hol: (330) Date:5231-67-78DR [phone] () [id number] [place] [address]GE: 02/15/2018 Secondary NOT GIVENUNK [place] Insurance:SELF PAY [facility] Number: Effective Repository Date:2018-02-15 02/15/2018 DIA A Primary DIA A Annmarie [id number] Insurance:AETNA PEACOCKDOB: [facility] Number: [id number] [id number] Repository [address]Wyr: (330) Date:3266-90-99RX [phone] () [id number] [place] [address]SX: 02/15/2018 Secondary NOT GIVENUNK Annmarie Insurance:SELF PAY [facility] Number: Effective Repository Date:2018-02-15 02/14/2018 DIA A Primary DIA A [place] [id number] Insurance:AETNA PEACOCKDOB: [facility] NANCY [facility]Policy Number: [id number] [id number] Repository [address]Dkf: (330) Date:0754-92-17EM [phone] () [id number] [place] [address]PD: 02/14/2018 Secondary NOT GIVENUNK [place] Insurance:SELF PAY [facility] Number: Effective Repository Date:2018-02-14 02/09/2018 DIA A Primary DIA A [facility] PEACOCKDOB: Insurance:AETNA PEACOCKDOB: Health System MEDICARE PPOPolicy [id number] Repository NANCY Number: DENNY [id number] [address] Date: [address]Rjh: () 01/26/2018 DIA A Primary DIA A Annmarie [id number] Insurance:AETNA PEACOCKDOB: Community NANCY [facility] Number: [id number] [id number] Repository [address]Dpo: (330) Date:6098-90-29QZ [phone] () [id number] [place] [address]KA: 01/26/2018 Secondary NOT GIVENUNK [place] Insurance:SELF PAY [facility] Number: Effective Repository Date:2018-01-26 01/26/2018 Dia A Primary Dia A [place] [id number] Insurance:AETNA PeacockDOB: [facility] Number: [id number] [id number] Repository [address]Oza: (330) Date:9191-85-50UT [phone] () [id number] [place] [address]HC: 01/26/2018 Secondary NOT GIVENUNK [place] Insurance:SELF PAY [facility] Number: Effective Repository Date:2018-01-26 01/20/2018 Dia A Primary Dia A [place] [id number] Insurance:AETNA PeacockDOB: Community NANCY [facility]Policy Number: [id number] [id number] Repository [address]Ock: (330) Date:2218-40-09CP [phone] () 544235[place] [address]IX: 01/20/2018 Secondary NOT GIVENUNK Annmarie Insurance:SELF PAY [facility] Number: Effective Repository Date:2018-01-20 01/12/2018 Dia A Primary Dia A Annmarie [id number] Insurance:AETNA PeacockDOB: [facility] Number: [id number] [id number] Repository 35[address]Znp: (330) Date:2553-15-87UL [phone] () 341159DAS[place] [address]WP: 01/12/2018 Secondary NOT GIVENUNK Annmarie Insurance:SELF PAY [facility] Number: Effective Repository Date:2018-01-12 12/24/2017 Dia A Primary Dia A [place] [id number] Insurance:AETNA PeacockDOB: [facility] Number: [id number] [id number] Repository [address]Kem: (330) Date:3587-13-04OU [phone] () 721466LVS[place] [address]YZ: 12/24/2017 Secondary NOT GIVENUNK [place] Insurance:SELF PAY [facility] Number: Effective Repository Date:2017-12-14 11/24/2017 Dia A Primary Dia A [place] [id number] Insurance:AETNA PeacockDOB: [facility] Number: [id number] [id number] Repository [address]Dde: (330) Date:9669-76-21OB [phone] () 908829GGS[place] [address]DD: 11/24/2017 Secondary NOT GIVENUNK Annmarie Insurance:SELF PAY [facility] Number: Effective Repository Date:2017-11-24 11/23/2017 Dia A Primary Dia A [place] [id number] Insurance:AETNA PeacockDOB: [facility] Number: [id number] [id number] Repository 58[address]Imn: (330) Date:2337-71-04WI [phone] () [id number] [place] [address]FN: 11/23/2017 Secondary NOT GIVENUNK Annmarie Insurance:SELF PAY [facility] Number: Effective Repository Date:2017-11-13 11/17/2017 Dia A Primary Dia A Annmarie [id number] Insurance:AETNA PeacockDOB: [facility] NANCY [facility] Number: [id number] [id number] Repository [address]Pvt: (330) Date:2602-53-20GG [phone] () [id number] [place] [address]GD: 11/17/2017 Secondary NOT GIVENUNK Annmarie Insurance:SELF PAY [facility] Number: Effective Repository Date:2017-11-17 11/10/2017 DIA A Primary DIA A [facility] PEACOCKDOB: Insurance:AETNA PEACOCKDOB: [facility] System [id number] MEDICARE PPOPolicy [id number] [facility] Center Number: [place]6SKHSUDWROCHESTER, [place] [id number] [address]Xeq: (330) Date: [phone] () 11/09/2017 Dia A Primary Dia A [place] [id number] Insurance:AETNA PeacockDOB: [facility] NANCY [facility] Number: [id number] [address]WOOS[place] [id number] Repository [address]Qol: (330) Date:3550-90-04JH [phone] () [id number] [place] [address]AC: 11/09/2017 Secondary NOT GIVENUNK Annmarie Insurance:SELF PAY [facility] Number: Effective Repository Date:2017-11-09 11/03/2017 DIA A Primary DIA A [facility] PEACOCKDOB: Insurance:AETNA PEACOCKDOB: [facility] MEDICARE PPOPolicy [id number] Repository [place] Number: DRWSAMIR PUENTES [id number] 34[address]Vyx: (330) Date: [phone] () 10/27/2017 DIA A Primary DIA A [facility] PEACOCKDOB: Insurance:AETNA PEACOCKDOB: [facility] MEDICARE PPOPolicy [id number] Repository NANCY Number: DENNY [id number] X0TZDKTBD, [place] Date: [address]Xmi: () 10/27/2017 DIA A Primary DIA A [facility] PEACOCKDOB: Insurance:AETNA PEACOCKDOB: [facility] MEDICARE PPOPolicy [id number] Repository [place] Number: DRWDELORIS [place] [id number] [address]Gon: (330) Date: [phone] () 10/27/2017 DIA A Primary DIA A [facility] PEACOCKDOB: Insurance:AETNA PEACOCKDOB: [facility] MEDICARE PPOPolicy [id number] Repository NANCY Number: DRIVETRACYIT [id number], [place] Date: [address]Mrz: () 10/18/2017 Dia A Primary Dia A Annmarie [id number] Insurance:AETNA PeacockDOB: [facility] Number: [id number] [facility] Center7WDELORIS mo [id number] Repository [address]Pwf: (330) Date:3017-30-57WS [phone] () [id number] SPRINGER [address]WS: 10/18/2017 Secondary NOT GIVENUNK Annmarie Insurance:SELF PAY [facility] Number: Effective Repository Date:2017-10-18 10/08/2017 DIA A Primary DIA A [facility] PEACOCKDOB: Insurance:MEDICARE A PEACTCKB: Health System [id number] AND [facility] Number: [id number] Defiance Indian Hospital NANCY [id number] DRIVEUNIT Date: [address] [address]Kga: () 10/08/2017 Dia A Primary Dia A [place] [id number] Insurance:AETNA PeacockDOB: [facility]Y [facility] Number: [id number] [id number] Repository 618[address]Mhy: (330) Date:4842-83-21MX [phone] () [id number] [place] [address]PD: 10/08/2017 Secondary NOT GIVENUNK Annmarie Insurance:SELF PAY [facility] Number: Effective Repository Date:2017-10-08 10/08/2017 Dia A Primary Dia A [place] [id number] Insurance:AETNA JilliancockDOB: [facility] NANCY [facility] Number: [id number]BD4WPVEffective Repository [address]Ykd: (330) Date:8267-76-75BH [phone] () [id number] [place] [address]IL: 10/08/2017 Secondary NOT GIVENUNK [place] Insurance:SELF PAY [facility] Number: Effective Repository Date:2017-10-08 10/08/2017 Dia A Primary Dia A Annmarie [id number] Insurance:AETNA PeacockDOB: [facility] NANCY [facility] Number: [id number] [id number] Repository [address]Tap: (330) Date:2922-13-30JI [phone] () 120256VP [place] [address]YI: 10/08/2017 Secondary NOT GIVENUNK [place] Insurance:SELF PAY [facility] Number: Effective Repository Date:2017-10-08 10/05/2017 Dia Wade Primary Dia Mcfadden [id number] Insurance:MEDICARE PeacockDOB: Community NANCY PART A [facility] [id number] Number: Repository [address]Hae: 330 [id number] [phone] () Date:2017-09-29 10/05/2017 Secondary NOT GIVENUNK [place] Insurance:SELF PAY [facility] Number: Effective Repository Date:2017-09-29 09/21/2017 Dia A Primary Dia Mcfadden [id number] Insurance:MEDICARE PeacockDOB: Community NANCY PART A [facility] [id number] Number: Repository [address]Cmb: 330 [id number] [phone] () Date:2017-09-21 09/21/2017 Secondary NOT GIVENUNK Annmarie Insurance:SELF PAY [facility] Number: Effective Repository Date:2017-09-21 09/18/2017 Dia A Primary Dia Mcfadden [id number] Insurance:MEDICARE PeacockDOB: Community NANCY PART A [facility] [id number] Number: Repository [address]Xpm: 330 [id number] [phone] () Date:2017-09-18 09/18/2017 Secondary NOT GIVENUNK Annmarie Insurance:SELF PAY [facility] Number: Effective Repository Date:2017-09-18 09/18/2017 Dia Primary Dia [place] [id number] Insurance:AETNA PeacockDOB: [facility] Number: [id number], [place] [id number] Repository [address]Xwu: 330) Date:2866-66-87EI [phone] () [id number] [place] [address]ZD: 09/18/2017 Secondary NOT GIVENUNK Annmarie Insurance:SELF PAY [facility] Number: Effective Repository Date:2017-09-18 09/18/2017 Dia A Primary Dia A [place] [id number] Insurance:AETNA PeacockDOB: [facility] Number: [id number], [place] [id number] Repository [address]Gua: (330) Date:5804-42-63GB [phone] () 197385[place] [address]CK: 09/18/2017 Secondary NOT GIVENUNK [place] Insurance:SELF PAY [facility] Number: Effective Repository Date:2017-09-18 09/18/2017 Dia A Primary Dia A Annmarie [id number] Insurance:AETNA PeacockDOB: [facility] Number: [id number], [place] [id number] Repository [address]Rcr: (330) Date:2228-28-58FT [phone] () [id number] [address]GE: 09/18/2017 Secondary NOT GIVENUNK [place] Insurance:SELF PAY [facility] Number: Effective Repository Date:2017-09-18 09/18/2017 Dia A Primary Dia A Annmarie [id number] Insurance:AETNA PeacockDOB: [facility] Number: [id number], [place] [id number] Repository [address]Ilk: (330) Date:9432-96-81ZG [phone] () 495747UOSAND [place] [address]FF: 09/18/2017 Secondary NOT GIVENUNK Annmarie Insurance:SELF PAY [facility] Number: Effective Repository Date:2017-09-18 09/17/2017 Dia Primary Dia [place] [id number] Insurance:AETNA PeacockDOB: [facility] Number: [id number], [place] [id number] Repository [address]Raj: (330) Date:0042-20-31LV [phone] (HP) 109201VU [place] [address]YZ: 09/17/2017 Secondary NOT GIVENUNK [place] Insurance:SELF PAY [facility] Number: Effective Repository Date:2017-09-16 09/15/2017 DIA A Primary DIA A [facility] PEACOCKDOB: Insurance:AETNA PEACOCKDOB: [facility] [id number] MEDICARE PPOPolicy [id number] Area Medical Center Number: [place] [id number] [address]Poh: (330) Date: [phone] (HP) 09/05/2017 DIA A Primary DIA A [facility] PEACOCKDOB: Insurance:AETNA PEACOCKDOB: [facility] [id number] MEDICARE OPolicy [id number] Repository [place] Number: [facility] [id number] [address] Date: [address]Eyv: (HP) 09/04/2017 Dia Primary Dia [place] [id number] Insurance:AETNA PeacockDOB: [facility] Number: [id number], [place] [id number] Repository [address]Zmk: (330) Date:5729-78-88ZJ [phone] (HP) 099581VN [place] [address]UH: 09/04/2017 Secondary NOT GIVENUNK [place] Insurance:SELF PAY [facility] Number: Effective Repository Date:2017-09-04 09/04/2017 Dia A Primary NOT GIVENUNK Annmarie [id number] Insurance:SELF PAY [facility]7WOOSTPlattsm[place], [place] Number: Effective Repository [address]Fya: (330) Date:2017-09-04 [phone] () 08/24/2017 DIA A Primary DIA A [facility] PEACOCKDOB: Insurance:AETNA PEACOCKDOB: [facility] MEDICARE PPOPolicy [id number] [facility] Number: [place] [id number] [address]Vpc: (330) Date: [phone] () 08/24/2017 Dia Primary Dia Annmarie [id number] Insurance:AETNA PeacockDOB: [facility] Number: [id number] Hospitaljavier mo [id number] Repository [address]Iqt: (330) Date:1651-39-70DC [phone] () 251062[place] [address]ZM: 08/24/2017 Secondary NOT GIVENUNK [place] Insurance:SELF PAY [facility] Number: Effective Repository Date:2017-08-24 08/03/2017 Dia Primary Dia Annmarie [id number] Insurance:AETNA [facility]: [facility] Number: [id number] Hospitalcollege [place], [place] [id number] Repository [address]Fof: (330) Date:8899-84-12NO [phone] () 514794IRSAND [place] [address]EB: 08/03/2017 Secondary NOT GIVENUNK [place] Insurance:SELF PAY [facility] Number: Effective Repository Date:2017-08-02 08/02/2017 Dia A Primary Dia A [facility] PeacockDOB: Insurance:AetRohany PeacockDOB: System Number: Effective [id number] Repository [facility] Date: [place] [address]Krg: () 07/15/2017 Dia Primary Dia Annmarie [id number] Insurance:AETNA PeacockDOB: [facility] Number: [id number], [place] [id number] Repository [address]Enq: (330) Date:2959-43-29IG [phone] () 137300ERS[place] [address]RK: 07/15/2017 Secondary NOT GIVENUNK Annmarie Insurance:SELF PAY [facility] Number: Effective Repository Date:2017-07-15 06/17/2017 DIA A Primary DIA A [facility] PEACOCKDOB: Insurance:AETNA PEACOCKDOB: Health System MEDICARE PPOPolicy [id number] Area Medical Center Number: [place], [place] [id number] [address]Wug: (474) Date: [phone] (HP) 06/16/2017 Dia Primary Dia [place] [id number] Insurance:AETNA PeacockDOB: [facility] Number: [id number], [place] [id number] Repository [address]Jaa: (330) Date:7387-38-36EC [phone] () 918732KJSAND [place] [address]JH: 06/16/2017 Secondary NOT GIVENUNK Annmarie Insurance:SELF PAY [facility] Number: Effective Repository Date:2017-06-16 05/27/2017 Dia A Primary Dia A Annmarie [id number] Insurance:AETNA PeacockDOB: [facility] Number: [id number] [id number] Repository [address]Sqa: ([phone]) Date:[id number] [phone] () [id number] [address]UL: 05/27/2017 Secondary NOT GIVENUNK Annmarie Insurance:SELF PAY [facility] Number: Effective Repository Date:2017-04-17 05/11/2017 Dia Primary Dia Ossineke [id number] Insurance:CINDY GloriaB: [facility] Number: [id number] [id number] Repository [id number]: [phone]) Date:[id number] [phone] (FB) [id number] [id number]: 05/11/2017 Secondary NOT GIVENAGUS Mcfadden Insurance:SELF PAY [facility] Number: Effective Repository Date:2017-05-11
== END ==
PROVIDERS: Family Provider Family Medicine; PCP Family Medicine; Referring Provider Internal Medicine Nephrology; Visit Provider Internal Medicine Nephrology
DX: N18.3 Chronic kidney disease, stage 3 (moderate) (principal); D50.9 Iron deficiency anemia, unspecified
CPT/HCPCS: 96365; J1756; J7050; A4216

== ENCOUNTER → 2018-04-17 13:01 | Outpatient (CLI) | payer MEDICARE, SELFPAY ==
[2018-04-07 13:35] VITALS: BMI 30.8
[2018-04-13 11:03] VITALS: BMI 30.8
[2018-04-17 13:47] VITALS: BP 129/65; PULSE 79; RESP 18; TEMP 36.7; O2SAT 97; BMI 30.8
--- OUTSIDE RECORDS SUMMARY | 2018-06-10 20:32 | XMS RPT_ITS ---
:1940 Author Organization [facility] Support Name Relationship Address Phone MATTER (POA), ROSELYN Unavailable [address] + [place] [address] LUIS MCCULLOUGH Unavailable Unavailable + R Unavailable Unavailable Unavailable MATTER (POA), ROSELYN Unavailable [address] + [place] [address] LUIS MCCULLOUGH Unavailable Unavailable + R Unavailable Unavailable Unavailable MATTER (POA), ROSELYN Unavailable [address] + [place] [address] LUIS MCCULLOUGH Unavailable Unavailable + R Unavailable Unavailable Unavailable MATTER (POA), ROSELYN Unavailable [address] + [place] [address] LUIS MCCULLOUGH Unavailable Unavailable + R Unavailable Unavailable Unavailable MATTER (POA), ROSELYN Unavailable [address] + [place] [address] LUIS MCCULLOUGH Unavailable Unavailable + R Unavailable Unavailable Unavailable MATTER (POA), ROSELYN Unavailable [address] + [place] [address] LUIS MCCULLOUGH Unavailable Unavailable + R Unavailable Unavailable Unavailable MATTER (POA), ROSELYN Unavailable [address] + [place] [address] LUIS MCCULLOUGH Unavailable // + //, [place] // R Unavailable Unavailable Unavailable MATTER (POA), ROSELYN Unavailable [address] + [place] [address] LUIS MCCULLOUGH Unavailable Unavailable + R Unavailable Unavailable Unavailable MATTER (POA), ROSELYN Unavailable [address] + [place] [address] LUIS MCCULLOUGH Unavailable Unavailable + R Unavailable Unavailable Unavailable MATTER (POA), ROSELYN Unavailable [address] + [place] [address] LUIS MCCULLOUGH Unavailable Unavailable + R Unavailable Unavailable Unavailable MATTER (POA), ROSELYN Unavailable [address] + [place] [address] LUIS MCCULLOUGH Unavailable Unavailable + R Unavailable Unavailable Unavailable MATTER (POA), ROSELYN Unavailable [address] + [place] [address] LUIS MCCULLOUGH Unavailable Unavailable + R Unavailable Unavailable Unavailable MATTER (POA), ROSELYN Unavailable [address] + [place] [address] LUIS MCCULLOUGH Unavailable Unavailable + R Unavailable Unavailable Unavailable MATTER (POA), ROSELYN Unavailable [address] + [place] [address] LUIS MCCULLOUGH Unavailable Unavailable + R Unavailable Unavailable Unavailable MATTER (POA), ROSELYN Unavailable [address] + [place] [address] LUIS MCCULLOUGH Unavailable Unavailable + R Unavailable Unavailable Unavailable JAMELLUIS Unavailable Unavailable + R Unavailable Unavailable Unavailable JAMEL, LUIS Unavailable Unavailable + R Unavailable Unavailable Unavailable JAMEL, LUIS Unavailable 1 + [place] [address] R Unavailable Unavailable Unavailable JAMEL, LUIS Unavailable 1 + [place] [address] R Unavailable Unavailable Unavailable R Unavailable Unavailable Unavailable MARIE HENNESSY Unavailable [address] + [place] [address] LUIS MCCULLOUGH Unavailable [address] + [address] [place], [place] R Unavailable Unavailable Unavailable MARIE HENNESSY Unavailable [address] + [place] [address] LUIS MCCULLOUGH Unavailable [address] + [address] [place], [place] R Unavailable Unavailable Unavailable GERHARD, MARIE Unavailable [address] + [place] [address] JAMEL, LUIS Unavailable [address] + [address] [place], [place] R Unavailable Unavailable Unavailable GERHARD, MARIE Unavailable [address] + [place] [address] JAMEL, LUIS Unavailable [address] + [address] [place], [place] R Unavailable Unavailable Unavailable GERHARD, MARIE Unavailable [address] + [place] [address] JAMEL, LUIS Unavailable [address] + [address] [place], [place] R Unavailable Unavailable Unavailable GERHARD, MARIE Unavailable [address] + [place] [address] JAMEL, LUIS Unavailable [address] + [address] [place], [place] R Unavailable Unavailable Unavailable GERHARD, MARIE Unavailable [address] + [place] [address] JAMEL, LUIS Unavailable [address] + [address] [place], [place] R Unavailable Unavailable Unavailable GERHARD, MARIE Unavailable [address] + [place] [address] JAMEL, LUIS Unavailable [address] + [address] [place], [place] R Unavailable Unavailable Unavailable GERHARD, MARIE Unavailable [address] + [place] [address] JAMEL, LUIS Unavailable [address] + [address] [place], [place] R Unavailable Unavailable Unavailable GERHARD, MARIE Unavailable [address] + [place] [address] JAMEL, LUIS Unavailable [address] + [address] [place], [place] R Unavailable Unavailable Unavailable GERHARD, MARIE Unavailable [address] + [place] [address] JAMEL, LUIS Unavailable [address] + [address] [place], [place] R Unavailable Unavailable Unavailable GERHARD, MARIE Unavailable [address] + [place] [address] JAMEL, LUIS Unavailable [address] + [address] [place], [place] R Unavailable Unavailable Unavailable GERHARD, MARIE Unavailable [address] + [place] [address] JAMEL, LUIS Unavailable [address] + [address] [place], [place] R Unavailable Unavailable Unavailable GERHARD, MARIE Unavailable [address] + [place] [address] JAMEL, LUIS Unavailable [address] + [address] [place], [place] R Unavailable Unavailable Unavailable GERHARD, MARIE Unavailable [address] + [place] [address] JAMEL, LUIS Unavailable [address] + [address] [place], [place] R Unavailable Unavailable Unavailable GERHARD, MARIE Unavailable [address] + [place] [address] JAMEL, LUIS Unavailable [address] + [address] [place], [place] R Unavailable Unavailable Unavailable GERHARD, MARIE Unavailable [address] + [place] [address] JAMEL LUIS Unavailable [address] + [address] [place], [place] R Unavailable Unavailable Unavailable GERHARD, MARIE Unavailable [address] + [place] [address] JAMEL LUIS Unavailable [address] + [address] [place], [place] R Unavailable Unavailable Unavailable LUIS JAMEL Unavailable [address] + [address] [place] GERHARD, MARIE Unavailable [address] + [place] [address] R Unavailable Unavailable Unavailable LUIS JAMEL Unavailable [address] + [address] ravi VEGA LESLIE Unavailable [address] + [place] [address] R Unavailable Unavailable Unavailable LUIS, JAMEL Unavailable [address] + [address] [place] VE[place] LESLIE Unavailable [address] + [place] [address] R Unavailable Unavailable Unavailable LUIS, JAMEL Unavailable [address] + [address] [place] VE[place] LESLIE Unavailable [address] + [place] [address] R Unavailable Unavailable Unavailable LUIS, JAMEL Unavailable [address] + [address] [place] VE[place] LESLIE Unavailable [address] + [place] [address] R Unavailable Unavailable Unavailable LUIS, JAMEL Unavailable [address] + [address] [place] LESLIE Unavailable [address] + [place] [address] R Unavailable Unavailable Unavailable MARIE HENNESSY Unavailable [address] + [place] [address] LUIS MCCULLOUGH Unavailable [address] + [address] [place] Unavailable Unavailable Unavailable LUIS, JAMEL Unavailable [address] + [address] [place] LESLIE Unavailable [address] + [place] [address] R Unavailable Unavailable Unavailable LUIS, JAMEL Unavailable [address] + [address] [place] VEGA LESLIE Unavailable [address] + [place] [address] R Unavailable Unavailable Unavailable JamelDamion Unavailable Unavailable + Luis, Jamel Unavailable [address] + [address] [place] Vega LESLIE Unavailable [address] + [place] [address] R Unavailable Unavailable Unavailable Luis, Jamel Unavailable [address] + [address] ra[place] Vega LESLIE Unavailable [address] + [place] [address] R Unavailable Unavailable Unavailable Care Team Providers Name Role Phone ANTIONE IRIZARRY Attending Unavailable ANTIONE IRIZARRY Referring Unavailable KENDRICK MARK Attending Unavailable ARCHINAL, KHRIS Referring Unavailable ARCHINAL, KHRIS Primary Care Unavailable KENDRICK MARK Attending Unavailable ARCHINAL, KHRIS Referring Unavailable ARCHINAL, KHRIS Primary Care Unavailable ARCHINAL, KHRIS Primary Care Unavailable KRISTINE ANTUNEZ F Consulting Unavailable ALI, NOAMAN S Attending Unavailable ALI, NOAMAN S Admitting Unavailable GALAN, MANOHAR A Admitting Unavailable ERIKA MCKEON Attending Unavailable ARCHINAL, KHRIS Primary Care Unavailable DAR SORENSEN Consulting Unavailable ZHANE MCGOVERN III Consulting Unavailable ANTIONE IRIZARRY Consulting Unavailable JJ HOWELL Consulting Unavailable TIMOTHY RUSH Referring Unavailable ARCHINAL, KHRIS Primary Care Unavailable LORY GARCES Referring Unavailable ARCHINAL, KHRIS Primary Care Unavailable TIMOTHY RUSH Admitting Unavailable TIMOTHY RUSH Attending Unavailable ARCHINAL, KHRIS Primary Care Unavailable VICTOR MANUELTIMOTHY R Admitting Unavailable VICTOR MANUELTIMOTHY Attending Unavailable ARCHINAL, KHRIS Primary Care Unavailable VICTOR MANUELTIMOTHY R Admitting Unavailable VICTOR MANUELTIMOTHY Attending Unavailable ARCHINAL, KHRIS Primary Care Unavailable ANTIONE IRIZARRY Attending Unavailable ANTIONE IRIZARRY Referring Unavailable ARCHINAL, KHRIS Primary Care Unavailable VICTOR MANUELTIMOTHY R Admitting Unavailable VICTOR MANUELTIMOTHY Attending Unavailable ARCHINAL, KHRIS Primary Care Unavailable KENDRICK MARK Attending Unavailable ARCHINAL, KHRIS Referring Unavailable ARCHINAL, KHRIS Primary Care Unavailable KENDRICK MARK Attending Unavailable ARCHINAL, KHRIS Referring Unavailable ARCHINAL, KHRIS Primary Care Unavailable KENDRICK MARK Attending Unavailable ARCHINAL, KHRIS Referring Unavailable ARCHINAL, KHRIS Primary Care Unavailable ARCHINAL, KHRIS Primary Care Unavailable Magda KOLB Admitting Unavailable Magda KOLB Attending Unavailable Magda WEI Consulting Unavailable GOLD LARSEN Consulting Unavailable KENDRICK MARK Attending Unavailable ARCHINAL, RIKA Referring Unavailable KRISTINE ANTUNEZ Consulting Unavailable BALJINDER REYNA Attending Unavailable ADAMA, MANOHAR A Admitting Unavailable ERIKA MCKEON Attending Unavailable JJ HOWELL Consulting Unavailable TIMOTHY RUSH Referring Unavailable VICTOR MANUEL, TIMOTHY Admitting Unavailable VICTOR MANUEL, TIMOTHY Attending Unavailable LORY GARCES Referring Unavailable VICTOR MANUEL, TIMOTHY Admitting Unavailable VICTOR MANUEL, TIMOTHY Attending Unavailable VICTOR MANUEL, TIMOTHY Admitting Unavailable VICTOR MANUEL, TIMOTHY Attending Unavailable VICTOR MANUEL, TIMOTHY Admitting Unavailable VICTOR MANUEL, TIMOTHY Attending Unavailable CORTES, RANDI H Admitting Unavailable CORTES, RANDI H Attending Unavailable ELEUTERIO BRAY Attending Unavailable Brimley, Candy Attending Unavailable PROVIDER, UNKNOWN Referring Unavailable RIKA WHEELER Primary Care Unavailable Obey Webb Attending Unavailable Schinner, Jared E Referring Unavailable Schinner, Jared E Primary Care Unavailable Tereletsky, Akira Admitting Unavailable Farhad, Mansoor Attending Unavailable Tereletsky, Akira Admitting Unavailable Schinner, Jared E Primary Care Unavailable Tereletsky, Akira Consulting Unavailable Tereletsky, Akira Attending Unavailable Tereletsky, Akira Admitting Unavailable Schinner, Jared E Primary Care Unavailable Farhad, Mansoor Consulting Unavailable Farhad, Mansoor Attending Unavailable Schinner, Jared E Attending Unavailable Schinner, Jared E Primary Care Unavailable Schinner, Jared E Attending Unavailable Schinner, Jared E Primary Care Unavailable Schinner, Jared E Primary Care Unavailable Meme Echevarria Attending Unavailable ADELA ETIENNE Attending Unavailable ADELA ETIENNE Primary Care Unavailable ADELA ETIENNE Attending Unavailable ADELA ETIENNE Primary Care Unavailable MARY KAYM, CANDY Attending Unavailable MARY KAYM, CANDY Referring Unavailable ADELA ETIENNE Primary Care Unavailable ADELA ETIENNE Primary Care Unavailable Artur Flores Attending Unavailable ADELA ETIENNE Primary Care Unavailable Julieth Garcia Attending Unavailable Tickton, Zoraida Attending Unavailable Tickton, Zoraida Referring Unavailable ADELA ETIENNE Primary Care [...] Attending Unavailable Jordan, Alejo Chi Referring Unavailable SchinnerJared E Primary Care Unavailable Schinner, Jared E Primary Care Unavailable Cali Bucio Attending Unavailable SchinJared tamayo E Primary Care Unavailable Ronn Marrero Attending Unavailable SchinJared tamayo E Primary Care Unavailable Paloma Chemung Attending Unavailable Jordan, Alejo Chi Admitting Unavailable Jordan, Alejo Chi Attending Unavailable SchinnerJared E Primary Care Unavailable Akira Cruz NP-C Consulting Unavailable SchinnerJared E Attending Unavailable SchinJared tamayo E Referring Unavailable SchinnerJared E Primary Care Unavailable SchJared valdez E Attending Unavailable SchinnerJared E Referring Unavailable SchinnerJared E Primary Care Unavailable Garrett Jordan Attending Unavailable Schinroni Jared E Primary Care Unavailable Sharath, Nathalie Attending Unavailable SchinnerJared E Primary Care Unavailable Garrett Jordan Attending Unavailable SchinJared tamayo E Primary Care Unavailable Julieth Garcia Attending Unavailable Schinroni, Jared E Primary Care Unavailable SchJared valdez E Attending Unavailable SchinJared tamayo E Primary Care Unavailable SchJared valdez E Attending Unavailable SchinJared tamayo E Primary Care Unavailable SchinJared tamayo E Attending Unavailable SchinnerJared E Primary Care Unavailable SchJared valdez E Attending Unavailable SchinJared tamayo E Referring Unavailable SchinJared tamayo E Primary Care Unavailable Brianna Sidhu Attending Unavailable Brianna Sidhu Attending Unavailable Moody, Jackson Attending Unavailable SchinJared tamayo E Referring Unavailable Obey Webb Attending Unavailable SchinJared tamayo E Referring Unavailable Moody, Jackson Attending Unavailable Moody, Jackson Referring Unavailable Schinroni Jared E Primary Care Unavailable Moody, [place] Attending Unavailable Moody, Jackson Referring Unavailable SchinnerJared E Primary Care Unavailable Moody, [place] Consulting Unavailable SchJared valdez E Attending Unavailable SchinJared tamayo E Referring Unavailable Schinroni Jared E Primary Care Unavailable Sharath, Jayaprakash Attending Unavailable Jared Romero Primary Care Unavailable SchJared valdez Attending Unavailable Jared Romero Primary Care Unavailable Sharath, Jayaprakash Attending Unavailable Sharath, Jayaprakash Referring Unavailable Jared Romero Primary Care Unavailable Sharath, Jayaprakash Attending Unavailable Sharath, Jayaprakash Referring Unavailable Jared Romero Primary Care Unavailable Sharath, Jayaprakash Attending Unavailable Sharath, Jayaprakash Referring Unavailable SchJared valdez Primary Care Unavailable Sharath, Jayaprakash Attending Unavailable Sharath, Jayaprakash Referring Unavailable SchJared valdez Primary Care Unavailable Sharath, Jayaprakash Attending Unavailable Sharath, Jayaprakash Referring Unavailable Jared Romero Primary Care Unavailable PROBLEMS PROBLEMS DATE TYPE CONDITION / CODE ATTENDING STATUS SOURCE Active Other specified RANDI KOLB [facility] 9 disorders of peritoneum H Clinic Other / K66.8(ICD-10) [place] Repository Unknown 280.9 - Iron deficiency Emmagibsonroni Jared Active [place] 9 anemia, unspecified / E Community 280.9(ICD-9) Hospital Repository Unknown E61.1 - Iron deficiency Nick Jared Active [place] 9 / E61.1(ICD-10) E [facility] Hospital Repository Unknown 008.45 - Intestinal NickJared Active [place] 9 infection due to E Community Clostridium difficile / Hospital 008.45(ICD-9) Repository Unknown A04.72 - Enterocolitis EmmaJared valdze Active [place] 9 due to Clostridium E Community difficile, not specified Hospital as recurrent / Repository A04.72(ICD-10) Unknown W01.0XXA - Fall on same Jared Romero [place] 8 level from [facility], [facility] and [facility] without subsequent Repository striking against object, initial encounter / W01.0XXA(ICD-10) Unknown 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, [place] Active [place] 8 heart disease of [place] Community coronary artery without Hospital angina pectoris / Repository I25.10(ICD-10) Unknown I26.99 - Other pulmonary Moody, [place] Active [place] 8 embolism without acute Community cor pulmonale / Hospital I26.99(ICD-10) Repository Unknown E78.00 - Pure Moody, [place] Active [place] 8 hypercholesterolemia, Community unspecified / Hospital E78.00(ICD-10) Repository Unknown E78.0 - Pure Moody, [place] Active [place] 8 hypercholesterolemia / Community E78.0(ICD-10) Hospital Repository Active Abscess of intestine / TIMOTHY RUSH Active [place] 8 K63.0(ICD-10) Clinic Other [place] Repository Unknown E55.9 - Vitamin D Sharath, Active [place] 8 deficiency, unspecified [facility] / E55.9(ICD-10) Hospital Repository Unknown D64.9 - Anemia, Sharath, Active [place] 8 unspecified / [facility] D64.9(ICD-10) Hospital Repository Unknown N18.3 - Chronic kidney Sharath, Active [place] 8 disease, stage 3 [facility] (moderate) / Hospital N18.3(ICD-10) Repository Unknown M79.81 - Nontraumatic Jared Romero Active [place] 8 hematoma of soft tissue E Community / M79.81(ICD-10) Hospital Repository Active Female pelvic VICTOR MANUELTIMOTHY Active [place] 8 inflammatory disease, Clinic Other unspecified / [place] N73.9(ICD-10) Repository Admitting Unknown / UNK(Unknown) ERIKA MCKEON Active [place] [address] diagnosis [facility] Repository Active Contusion of left lower ERIKA MCKEON Active [place] 8 leg, initial encounter / Clinic Other S80.12XA(ICD-10) [facility] Repository Active Peritoneal abscess / ERIKA MCKEON Active [place] 8 K65.1(ICD-10) Clinic Other [place] Repository Active Acute embolism and ERIKA MCKEON Active [place] 8 thrombosis of Clinic Other unspecified deep veins [place] of unspecified lower Repository extremity / I82.409(ICD-10) Active Other pulmonary embolism ERIKA MCKEON Active [place] 8 without acute cor Clinic Other pulmonale / [place] I26.99(ICD-10) Repository Unknown S80.12XA - Contusion of Jwayyed, Active [place] 8 left lower leg, initial [place] Community encounter / Hospital S80.12XA(ICD-10) Repository Unknown M62.81 - Muscle weakness Jordan, Alejo Chi Active [place] 8 (generalized) / Community M62.81(ICD-10) Hospital Repository Unknown R53.81 - Other malaise / Jordan, Alejo Chi Active [place] 8 R53.81(ICD-10) Community Hospital Repository Unknown I82.4Z2 - Acute embolism Farhad, Mansoor Active [place] 8 and thrombosis of Community unspecified deep veins Hospital of left distal lower Repository extremity / I82.4Z2(ICD-10) Active Perforation of intestine ALI, NOAMAN Active [place] 8 (nontraumatic) / Clinic Other K63.1(ICD-10) [facility] Repository Active Unknown / UNK(Unknown) KENDRICK MARK Active [place] 8 [facility] Repository Unknown 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 [place] 8 (current) use of Community anticoagulants / Hospital Z79.01(ICD-10) Repository PROCEDURES PROCEDURES No Procedure Records FoundRESULTS RESULTS NURSING PROG Observed: 06/06/2018 Status: COMPLETED Source: [place] 9:27 PM [facility] OTHER [place] REPOSITORY HNO ID: [id number] Author: Miya (Rn) GAURANG Yusuf Service: Nursing Author Type: Registered Nurse Type: Nursing Progress Note Filed: 06/06/2018 9:30 PM Note Text: Nursing Progress Note Patient Name: Dia Mccullough [id number] RN spoke with Dr new regarding sbp 176, After 25mg metoprolol, BP reads 181/97. New orders received for scheduled Clonidine. RN will continue to monitor. This note was completed by: Miya Yusuf RN PROGRESS Observed: 06/06/2018 Status: COMPLETED Source: [place] 7:13 PM CLINIC OTHER CAMPUS REPOSITORY HNO ID: [id number] Author: Becca Rivera Service: Hospital Medicine Author Type: Physician Type: Progress Notes Filed: 06/06/2018 8:54 PM Note Text: INTERNAL MEDICINE PROGRESS NOTE SERVICE DATE: 06/06/2018 SERVICE TIME: 7:13 PM ADMITTING PHYSICIAN: Randi Kolb Subjective CHIEF COMPLAINT: f/u medical issues listed below Current Facility-Administered Medications: miconazole 2 % (MONISTAT-DERM,DORA) TOPICAL BID metoprolol tartrate (short acting) 25 mg tab(s) (LOPRESSOR) 25 mg ORAL q 12 H ondansetron (PF) 4 mg injection (ZOFRAN) 4 mg INTRAVENOUS q [address] 40 mg tab(s) (PROTONIX) 40 mg ORAL DAILY (6 AM) heparin 5,000 Units injection 5,000 Units SUBCUTANEOUS q 8 H NaCl 0.9% iv infusion 75 mL/hr INTRAVENOUS CONTINUOUS morphine 2 mg injection 2 mg INTRAVENOUS q 3 H PRN hydrocortisone sodium succinate (PF) 50 mg injection (Solu- CORTEF) 50 mg INTRAVENOUS q 8 H vancomycin 125 mg oral liquid (VANCOCIN) 125 mg ORAL BID ciprofloxacin 400 mg in D5W 200 mL (CIPRO) 400 mg INTRAVENOUS q 24 HR ampicillin-sulbactam 3 g in NaCl 0.9% 100 mL MB+/ADD-Jackson (UNASYN) 3 g INTRAVENOUS q 8 H benzocaine-menthol 1 Lozenge (CEPACOL) 1 Lozenge MUCOUS MEMBRANE (TOPICAL MOUTH AND THROAT) q 2 H PRN melatonin 3 mg tab(s) 3 mg ORAL DAILY (8 PM) INTERVAL HISTORY OF PRESENT ILLNESS: abd pressure- L hip pain- Tolerating clear liquids- Diarrhea in mornings per pt Objective PHYSICAL EXAM: Patient Vitals for the past 24 hrs: BP Temp Temp src Pulse Resp SpO2 06/06/18 1531 170/83 37.2 ?C (99 ?F) Temporal Art 89 18 99 % 06/06/18 0811 160/80 37 ?C (98.6 ?F) Oral 101 18 96 % 06/06/18 0350 155/84 36.7 ?C (98.1 ?F) Oral 94 18 97 % 06/05/182021 146/78 37 ?C (98.6 ?F) Oral 96 18 97 % Body mass index is 28.98 kg/m?. GENERAL: Alert, no distress, cooperative LUNGS: Lungs clear. CARDIAC: Normal S1 and S2; no rubs, murmurs, or gallops ABDOMEN: Abdomen soft, non-tender, BS normal, EXTREMITIES: swelling in arms and legs noted DATA: Diagnostic tests reviewed for today's visit: Significant findings were Assessment/Plan Today c/o: abd pressure- L hip pain- Tolerating clear liquids- Diarrhea in mornings per pt Diverticulosis CT A/P on 06/04/18 with free air within pelvis concern for rectal perf. ?abscess On abx per ID Surgery following. plan for repeat CT th06/08 Hx HTN- HPL- Hx PE- Hx DVT- Hypothyroid- Hx Polymyalgia rheumatica- Pima's disease- Hx CKD 3- CAD- SIGNATURE: Becca Rivera DO PATIENT NAME: Dia Mccullough DATE: June 06, 2018 TIME: 7:13 PM PAGER/CONTACT #: NURSING PROG Observed: 06/06/2018 Status: COMPLETED Source: [place] 6:15 PM CLINIC OTHER CAMPUS REPOSITORY HNO ID: [id number] Author: Valentín (Rn) GAURANG Lama Service: (none) Author Type: Registered Nurse Type: Nursing Progress Note Filed: 06/06/2018 6:29 PM Note Text: Nursing Progress Note Patient Name: Dia Mccullough Patient Location[place] [address] [address] Daily Note: Spoke to Lyndsay Amaya NP regarding need for a wound care consult for IAD, new orders received. Spoke to Lyndsay Amaya LAUNDERER HAND regarding Bp of 170/83, no new orders received, will continue to monitor. Spoke to Dr. New regarding pt request oral pain medication and 2 IVs. Going bad within an hour of starting, no new orders received, will continue to monitor. This note was completed by: Valentín Lama RN CONSULT PROG Observed: 06/06/2018 Status: COMPLETED Source: [place] 1:55 PM CLINIC OTHER CAMPUS REPOSITORY HNO ID: [id number] Author: Maggie Blanco) Lisa Service: Wound Care Team Author Type: Nurse Specialist Type: Consult Progress Note Filed: 06/06/2018 2:00 PM Note Text: Wound Care Consult Team Assessment Note: PATIENT NAME: Dia Mccullough Reason for Assessment: Eval buttocks/groin/ RLE wound Requested by: Lyndsay Mcintosh Assessment: Buttocks/groin w/ dermatitis/denuded skin, slight fungal appearance. RLE w/ partial thickness wound which measures 2.8x2.5x0.1cm. BLE w/ hemosideran staining. Wound Evaluation: Initial eval of skin Goals: Wound will not worsen Recommendations: Dora w/ miconazole bid to buttocks/groin x 7 days, allevyn to coccyx, waffle seat cushion, xeroform, 4x4 and conform daily to RLE wound. Encouraged pt to turn/reposition. Electronically Signed By: Maggie Gonzalez APRN.RAYNA TRIPP 12 LEAD ELECTROCARDIOGRAM Observed: 06/06/2018 Status: F Source: [place] 1:07 PM [facility] REPOSITORY [facility] Cardiovascular Services [address] [place] [address] 12 Lead EKG 06/04/18 1823 MR#: [id number] Acct: [id number] Name: DIA MCCULLOUGH Rep #: [id number] : 1940 77 From: [place] Uriostegui MD Attending Dr: Status: DEP ER Ordering Dr: Meme Echevarria MD Date: 06/04/18 Location: ED Sex: F C Admitted: Test Reason : TACHYCARDIA Blood Pressure : / mmHG Vent. Rate : 125 BPM Atrial Rate : 125 BPM P-R Int : 138 ms QRS Dur : 072 ms QT Int : 312 ms P-R-T Axes : -16 -44 061 degrees QTc Int : 450 ms Sinus tachycardia Left axis deviation Moderate voltage criteria for LVH, may be normal variant Nonspecific ST abnormality Abnormal ECG Confirmed by JACKSON URIOSTEGUI MD ([id number]), editor magazine [place] MARTINEZ ([id number]) on 06/06/2018 1:07:26 PM Referred By: Confirmed By:JACKSON URIOSTEGUI MD 06/06/18 1307 Date Jackson Uriostegui MD CC: Meme Echevarria MD; Jared Romero MD Signed 12 LEAD ELECTROCARDIOGRAM Observed: 06/06/2018 Status: F Source: [place] 1:07 PM [facility] REPOSITORY [facility] Cardiovascular Services [address] [place] [address] 12 Lead EKG 06/04/182058 MR#: [id number] Acct: [id number] Name: DIA MCCULLOUGH Rep #: [id number] : 1940 77 From: Jackson Uriostegui MD Attending Dr: Status: DEP ER Ordering Dr: Meme Echevarria MD Date: 06/04/18 Location: ED Sex: F C Admitted: Test Reason : REPEAT Blood Pressure : / mmHG Vent. Rate : 180 BPM Atrial Rate : 174 BPM P-R Int : 000 ms QRS Dur : 070 ms QT Int : 232 ms P-R-T Axes : 000 -33 165 degrees QTc Int : 401 ms Atrial fibrillation with rapid ventricular response with premature ventricular or aberrantly conducted complexes Left axis deviation Minimal voltage criteria for LVH, may be normal variant Marked ST abnormality, possible inferior subendocardial injury Abnormal ECG Confirmed by JACKSON URIOSTEGUI MD ([id number]), editor magazine [place] MARTINEZ ([id number]) on 06/06/2018 1:07:43 PM Referred By: MAXI Confirmed By:JACKSON URIOSTEGUI MD 06/06/18 5397 Date Jackson Uriostegui MD CC: Meme Echevarria MD; Jared Romero MD Signed CONSULT PROG Observed: 06/06/2018 Status: COMPLETED Source: [place] 12:40 PM CLINIC OTHER CAMPUS REPOSITORY HNO ID: [id number] Author: Misael Wei Service: Infectious Disease Author Type: Physician Type: Consult Progress Note Filed: 06/06/2018 1:01 PM Note Text: INFECTIOUS DISEASE CONSULT PROGRESS NOTE SERVICE DATE: 06/06/2018 SERVICE TIME: 12:40 PM Subjective INTERVAL HISTORY / PERTINENT Review of Systems Constitutional: Negative for chills and fever. Gastrointestinal: Positive for blood in stool and diarrhea. Negative for nausea and vomiting. Has anterior abdominal pressure and some pain in left posterior pelvis region. Current Facility-Administered Medications: potassium chloride iv piggyback 20 mEq/100 mL 20 mEq INTRAVENOUS q 2 H metoprolol tartrate (short acting) 25 mg tab(s) (LOPRESSOR) 25 mg ORAL q 12 H ondansetron (PF) 4 mg injection (ZOFRAN) 4 mg INTRAVENOUS q [address] 40 mg tab(s) (PROTONIX) 40 mg ORAL DAILY (6 AM) heparin 5,000 Units injection 5,000 Units SUBCUTANEOUS q 8 H NaCl 0.9% iv infusion 75 mL/hr INTRAVENOUS CONTINUOUS morphine 2 mg injection 2 mg INTRAVENOUS q 3 H PRN hydrocortisone sodium succinate (PF) 50 mg injection (Solu- CORTEF) 50 mg INTRAVENOUS q 8 H vancomycin 125 mg oral liquid (VANCOCIN) 125 mg ORAL BID ciprofloxacin 400 mg in D5W 200 mL (CIPRO) 400 mg INTRAVENOUS q 24 HR ampicillin-sulbactam 3 g in NaCl 0.9% 100 mL MB+/ADD-Jackson (UNASYN) 3 g INTRAVENOUS q 8 H benzocaine-menthol 1 Lozenge (CEPACOL) 1 Lozenge MUCOUS MEMBRANE (TOPICAL MOUTH AND THROAT) q 2 H PRN Objective PHYSICAL EXAM: Vital Signs: BP 160/80 Pulse 101 Temp 37 ?C (98.6 ?F) (Oral) Resp 18 Ht 152.4 cm (5') Wt 67.3 kg (148 lb 6.4 oz) SpO2 96% BMI 28.98 kg/m? Physical Exam HENT: Mouth/Throat: Oropharynx is clear and moist. No oropharyngeal exudate. Abdominal: Soft. Bowel sounds are normal. She exhibits no mass. There is tenderness (more pressure than tenderness anterior central abd.). There is no guarding. Tender left posterior pelvis and lower back region. Vitals reviewed. DATA: Diagnostic Tests Reviewed for Today's Visit: Most recent labs and imaging results. Micro: C diff negative Recent Labs 06/06/18 0350 06/05/18 0344 WBC 6.07 8.33 HB 7.5* 8.7* HCT 25.5* 29.6* PLT 141* 158* NEUTNUM 5.39 7.21* CREAT 1.44* 1.58* No results found for: VANCORA Impression/Recommendations Active Problems: Diarrhea POA: Yes Assessment AND Plan: C diff negative. May be related to rectal perforation and associated rectal/colonic inflammation. Could also be due to ongoing lower GI bleeding. Remains on preventive po vanco 125 mg bid while on iv atbs due to risk of relapsing C diff from the systemic rx, but does not need to stay in Contact Precautions. Presumed rectal perf, associated peritonitis. History of perforated diverticulitis last year. Continue unasyn/cipro, follow response. If she improves, could use po augmentin and cipro at home after DC. Lower GI bleeding continues per pt. Slight drop in Hgb. Needs continued monitoring and if bleeding continues would need additional evaluation during current hospitalization instead of after discharge. Resolved Problems: * No resolved hospital problems. * SIGNATURE: Misael Wei MD PATIENT NAME: Dia Mccullough DATE: June 06, 2018 TIME: 12:40 PM PAGER/CONTACT #: [phone] CASE MANAGEM Observed: 06/06/2018 Status: COMPLETED Source: [place] 10:35 AM CLINIC OTHER CAMPUS REPOSITORY HNO ID: [id number] Author: Monique Limon (Sw) Service: Social Work Author Type: Access Assoc Type: Care Mgt Progress Note Filed: 06/06/2018 10:38 AM Note Text: CARE MANAGEMENT PROGRESS NOTE SERVICE DATE: 06/06/2018 SERVICE TIME: 10:36 AM LOS: 1 day Advance Directive Per CM request, met with pt and discussed Advance Directive. Pt expressed understanding of purpose and use of documents. Completed Living Will and DPOAHC. Will place copy in chart and take copy to Registration . SIGNATURE: SAMUEL Jimenez PATIENT NAME: Dia Mccullough DATE: June 06, 2018 TIME: 10:35 AM PAGER/CONTACT #: [phone] MDRD GFR Collected: 06/06/2018 Status: F Source: [facility] 3:50 AM HEALTH SYSTEM REPOSITORY TYPE CODE TESTS RESULT OUT OF RANGE REFERENCE UNITS LAB GFRFN(LOINC >60mL/min/1.73m ) 2 eGFR 35.13 Result Comment: If the patient is , multiply the result by 1.210. Performed By: #### GFR #### [facility] [address] [id number] HEMOGRAM/DIFF Collected: 06/06/2018 Status: F Source: [facility] 3:50 AM HEALTH SYSTEM REPOSITORY TYPE CODE TESTS RESULT OUT OF REFERENCE UNITS RANGE LAB WBC(LOINC) 3.98-10.04 thou/cmm WBC 6.07 LAB RBC(LOINC) 3.93-5.22 mil/cmm Low RBC 2.42 LAB HGB(LOINC) 11.2-15.7 g/dL Low Hgb 7.5 LAB HCT(LOINC) 34.1-44.9 % Low Hct 25.5 LAB MCV(LOINC) 79.4-94.8 fl MCV High 105.4 LAB MCH(LOINC) 25.6-32.2 pg MCH 31.0 LAB MCHC(LOINC 31.6-34.8 % ) Low MCHC 29.4 LAB RDW(LOINC) 11.7-14.4 % RDW High 21.2 LAB RDWSD(LOIN 36.4-46.3 fl C) RDW SD High 81.7 LAB PLT(LOINC) 182-369 thou/cmm Low Platelet 141 LAB MPV(LOINC) 9.4-12.3 fl MPV 10.0 LAB SEG(LOINC) % Seg Neutrophil 88.8 LAB IGRE(LOINC % ) Immature Grans 1.00 LAB LYMPH(LOIN % C) Lymphocyte 5.8 LAB MNO(LOINC) % Monocyte 4.4 LAB EOSIN(LOIN % C) Eosinophil 0.0 LAB BASO(LOINC % ) Basophil 0.0 LAB SEGN(LOINC 1.56-6.13 thou/cmm ) Abs. Neut (ANC) 5.39 LAB IGAB(LOINC 0.00-0.05 thou/cmm ) Abs High Immature Grans 0.06 LAB LYMN(LOINC 1.18-3.74 thou/cmm ) Low Abs. Lymph 0.35 LAB MONON(LOIN 0.27-0.70 thou/cmm C) Abs. [place] 0.27 LAB EOSN(LOINC 0.00-0.31 thou/cmm ) Abs. Eosin 0.00 LAB BASON(LOIN 0.01-0.08 thou/cmm C) Low Abs. Baso 0.00 Performed By: #### CBCD1 #### [facility] [address] [id number] BASIC PANEL Collected: 06/06/2018 Status: F Source: [facility] 3:50 AM HEALTH SYSTEM REPOSITORY TYPE CODE TESTS RESULT OUT OF REFERENCE UNITS RANGE LAB NA(LOINC) 136-145 mEq/L Sodium High Blood 147 LAB K(LOINC) 3.5-5.1 mEq/L Low Potassium Blood 3.3 LAB CL(LOINC) 98-107 mEq/L Chloride High Blood 115 LAB CO2(LOINC) 21-32 mEq/L CO2 Blood 23 LAB GLU(LOINC) 70-99 mg/dL Glucose High Blood 105 LAB BUN(LOINC) 7-18 mg/dL BUN High Blood 24 LAB CREA(LOINC 0.51-0.95 mg/dL ) High Creatinine Blood 1.44 LAB CA(LOINC) 8.5-10.1 mg/dL Low Calcium Blood 7.2 LAB ANGAP(LOIN 8-16 C) Anion Gap 12 Performed By: #### P8 #### [place] [id number] PROGRESS Observed: 06/05/2018 Status: COMPLETED Source: [place] 4:36 PM CLINIC OTHER CAMPUS REPOSITORY HNO ID: [id number] Author: Josh New Service: General Surgery Author Type: Resident Type: Progress Notes Filed: 06/05/2018 4:38 PM Note Text: PM Rounds: Patient reports that her abdominal pain is improved from earlier today. Patient feels more comfortable in bed. Denies any nausea, vomiting, fever, or chills. PE: ABD - soft, non-tender, no rebound TTP appreciated Plan: - will re-assess in AM - cont CLD - please page if patient's clinical picture worsens Josh New, DO Urology, PGY-1 [id number] CONSULT Observed: 06/05/2018 Status: COMPLETED Source: [place] 3:30 PM CLINIC OTHER CAMPUS REPOSITORY HNO ID: [id number] Author: Gold Ramos Service: Infectious Disease Author Type: Physician Type: Consults Filed: 06/05/2018 3:47 PM Note Text: INFECTIOUS DISEASE CONSULT SERVICE DATE: 06/05/2018 SERVICE TIME: 1355 Subjective INTERVAL HISTORY: 77-year-old white female who were consulted on for antibiotic management for appears to be rectal perforation with gas bubbles outside the [place] pneumoperitoneum but no discrete abscess currently at the moment. She apparently last September had diverticulitis with abscess that was drainable and then later at another time had problems where no drain was able to be placed. Last September, she went home on Cipro and Augmentin to finish off that particular abscess which actually had multiple anaerobes including Clostridium perfringens, Klebsiella pneumoniae only resistant to amoxicillin, Khadijah albicans. It apparently got better she decided not to do follow-up for colonoscopy because of her anticoagulation medicines. It's a little larson but she might have been on Cipro in March for recurrent diverticulitis but no abscess that could be drained, but I don't know whether that was taken care of because there are no notes in our chart review. She went into [place] [facility] and was sent here yesterday very early in the morning to get surgical evaluation here. She's been on Zosyn since. She had nausea and left flank pain but no bad abdominal pain just a vague discomfort. Denied fevers or chills. Apparently sometime at the end of 2017 she was treated for C. difficile colitis and had oral vancomycin. At [facility] she had atrial fibrillation with RVR they gave her medication and she went to sinus. Today she is feeling okay except for the left flank pain. I saw patient with the surgeon Dr. Cadena. PERTINENT ROS: No fever, chills, myalgias, shortness of breath, cough, genitourinary symptoms, acute joint changes, skin rashes in spite of listed penicillin allergy and patient on Zosyn Positive?atrial fibrillation which converted, some diarrhea which now resolved, left flank pain PMH? - Pima disease ? - Asthma ? - CKD (chronic kidney disease) stage 3, GFR 30-59 ml/min ([facility] 11/28/2014 - Contact dermatitis and other eczema, due to unspecified cause ? - DVT/EMBLSM Lower ext NOS ? - Enthesopathy of hip ? - Enthesopathy of hip region ? - Fibromyalgia ? - Gastritis ? - Generalized osteoarthrosis, unspecified site ? - Hearing loss ? 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 - History of diverticular abscess ? - Homocystinuria ? - HTN (hypertension) ? - Hypercholesterolemia ? - Inflammatory polyarthritis (HCC) ? ? Dr. Hansen - Inflammatory polyarthropathy ? - Normocytic anemia ? - PE (pulmonary thromboembolism) (HCC) 01/05/14 ? Bilat, extensive - Pulmonary embolism without acute cor pulmonale ? - Pure hypercholesterolemia ? - Sicca syndrome ? - Unspecified essential hypertension ? - Unspecified gastritis and gastroduodenitis without mention of hemorrhage ? - Urinary tract infection, site not specified ? - Venous insufficiency (chronic) (peripheral) ? - Vitamin D deficiency ? ? PAST SURGICAL HISTORY PAST SURGICAL HISTORY Procedure Laterality Date - CATARACT EXTRACTION HX Right ? - PARTIAL HIP REPLACEMENT Right 04/2013 - PAST SURGICAL HISTORY OF ? ? ? hernia repair - PAST SURGICAL HISTORY OF ? 11/2012 ? L3-L4 laminectomy and fusion - PAST SURGICAL HISTORY OF ? 11/2012 ? Back fusion surgery - TOTAL HIP REPLACEMENT ? 05/10/2013 ? right hip replacement - VENOUS DUPLEX BOTH LOWER Never Smoker ATB allergies? Amoxicillin but it turns out to be GI upset although she must tolerated Augmentin last May. Doxycycline also GI upset. She is on Zosyn without problems Current Facility-Administered Medications: metoprolol tartrate (short acting) 25 mg tab(s) (LOPRESSOR) 25 mg ORAL q 12 H ondansetron (PF) 4 mg injection (ZOFRAN) 4 mg INTRAVENOUS q [address] 40 mg tab(s) (PROTONIX) 40 mg ORAL DAILY (6 AM) heparin 5,000 Units injection 5,000 Units SUBCUTANEOUS q 8 H NaCl 0.9% iv infusion 75 mL/hr INTRAVENOUS CONTINUOUS morphine 2 mg injection 2 mg INTRAVENOUS q 3 H PRN hydrocortisone sodium succinate (PF) 50 mg injection (Solu- CORTEF) 50 mg INTRAVENOUS q 8 H vancomycin 125 mg oral liquid (VANCOCIN) 125 mg ORAL BID ciprofloxacin 400 mg in D5W 200 mL (CIPRO) 400 mg INTRAVENOUS q 24 HR ampicillin-sulbactam 3 g in NaCl 0.9% 100 mL MB+/ADD-Jackson (UNASYN) 3 g INTRAVENOUS q 8 H Date 1?Zosyn Objective PHYSICAL EXAM: Vital Signs: BP 144/69 Pulse 119 Temp 36.9 ?C (98.4 ?F) (Oral) Resp 18 Ht 152.4 cm (5') Wt 67.3 kg (148 lb 6.4 oz) SpO2 100% BMI 28.98 kg/m? 06/05/18 0035 06/05/18 0335 06/05/18 1500 Temp: 37 ?C (98.6 ?F) 36.9 ?C (98.4 ?F) 37.1 ?C (98.8 ?F) Gen.?NAD; a and O ?3; nontoxic looks; VSS but has been tachycardic; HEENT?unremarkable externally Tongue without thrush Neck supple Heart regular and no murmurs heard Lungs?clear Abdomen?obese soft and nontender and even the left flank is nontender but that's where she complains of pain Joints?no acute change Skin?no antibiotic rash IV site?unremarkable Neurologic?cranial nerves II through XII in general extremity motor activity intact DATA: Diagnostic Tests Reviewed for Today's Visit: Lab Results Component Value Date WBC 8.33 06/05/2018 WBC 10.63 (H) 10/17/2017 WBC 12.59 (H) 10/15/2017 WBC 10.24 (H) 10/14/2017 WBC 7.81 10/12/2017 WBC 7.98 10/11/2017 WBC 8.18 10/11/2017 Creatinine Date Value Ref Range Status 06/05/2018 1.58 (H) 0.51 - 0.95 mg/dL Final 10/17/2017 1.23 (H) 0.51 - 0.95 mg/dL Final 10/15/2017 1.36 (H) 0.51 - 0.95 mg/dL Final 10/14/2017 0.95 0.51 - 0.95 mg/dL Final Estimated Creatinine Clearance: 25.1 mL/min (A) (based on SCr of 1.58 mg/dL (H)). No cultures; stool C. difficile June 05 negative I can't find the posterior CT report but surgery says is a rectal progress with some gas in the local area and no well defined abscess. Gas may be going up the left flank Impression/Recommendations #1?rectal perforation with early peritoneal infection and no discrete abscess yet. To minimize risk of a large schedule bowel resection, plan is to treat with antibiotics keep diet to liquids and to recheck a CAT scan in a few days to see what is happening. In the meantime if patient is clinically where she'll go to urgent surgery. If she does well we will see if there is something drainable and then consider long-term antibiotics with multiple CTs to the process resolves. #2?presumptive infections include strep, gram-negative rods, anaerobes and enterococci #3?leukocytosis with a decrease today #4?C. difficile patient no latter half at 2018?suggest suppressive vancomycin 125 mg orally twice a day and surgery residence Road for this #5?presumptive antibiotics Zosyn is perfectly fine except the closest oral his Augmentin and Cipro or Levaquin. Therefore we'll put her on something like this to see if she does well. If she fails this then we know she will even need home IV Zosyn or some other type of antibiotic. She is being changed to Unasyn and Cipro #6?renal failure antibiotic dosing currently 25 creatinine clearance #7?discussed with surgery and patient SIGNATURE: Gold Ramos MD PATIENT NAME: Dia Mccullough DATE: June 05, 2018 TIME: 3:30 PM PAGER/CONTACT #: [phone] NUTRITION Observed: 06/05/2018 Status: COMPLETED Source: [place] 1:23 PM CLINIC OTHER CAMPUS REPOSITORY O ID: [id number] Author: Yazmin Sherwood Service: Nutrition Therapy Author Type: Registered Dietitian Type: Nutrition Filed: 06/05/2018 3:12 PM Note Text: NUTRITION THERAPY INITIAL ASSESSMENT SERVICE DATE: 06/05/2018 SERVICE TIME: 11:15 RECOMMENDED MALNUTRITION DIAGNOSIS: MILD PROTEIN-CALORIE MALNUTRITION In the context of Acute Illness or Injury based on: Insufficient Energy Intake: <75% for >7 days NUTRITION CARE PLAN: Problem, Etiology and Signs/Symptoms: Suboptimal protein/energy intake related to GI symptoms as evidenced by patient report Intervention: 1. Advance diet to heart healthy as able. 2. Order gandhi Ensure Clear BID - provides 240 kcal and 8 grams protein per serving Coordination of Care: Recommend swallow evaluation per Speech Language Pathologist Monitor and Evaluation: Goal: Meet >75% of estimated needs Monitor fluid/electrolyte balance Monitor labs, I/Os, vital signs, weight Discharge Nutrition Recommendations: Diet: Heart Healthy Supplements: TBD Reason for Assessment: Malnutrition Screening Tool - 2 Per HPI: Ms. Mccullough is a 77 year old female with hx of Collin disease, DVT/PE, CKD stage 3, asthma, hypertension, chronic peripheral venous insufficiency, left leg hematoma, an intra-abdominal abscess 2/2 sigmoid diverticulitis, and recent C diff colitis. In September 2017, she was admitted for treatment of the intraabdominal abscess, which included drainage and antibiotics. Today she came to the [place] ER complaining of diarrhea for the past week. A CT there showed rectal perforation with pneumoperitoneum. She was transferred here for surgical evaluation. She was noted to be in atrial fib with RVR and was given Cardizem, which converted her to NSR. She denies fever, chills, chest pain, SOB, nausea, vomiting, or urinary symptoms. She did endorse pain in her left buttock. She was started on IV Zosyn, Cardiology was consulted for a fib, ID was consulted for abx recommendations with pt recently on Basilia Orozco for C diff. Our medical hospitalist service has been consulted to assist with the management of this patient's steroids and her CKD. ACTIVE PROBLEM LIST Pure Hypercholesterolemia Contact Dermatitis and Other Eczema, Due to Unspecified Cause Enthesopathy of Hip Region Unspecified Gastritis and Gastroduodenitis Without Mention of Hemorrhage Essential Hypertension Adhesive Capsulitis of Shoulder Allergic Rhinitis, Cause Unspecified Inflammatory Polyarthropathy (Hcc) Asthma Vitamin D Deficiency Osteoarthrosis, Unspecified Whether Generalized Or Localized, Hand Osteoarthrosis, Unspecified Whether Generalized Or Localized, Ankle and Foot Fibromyalgia Sicca Syndrome (Hcc) Acute Thromboembolism of Deep Veins of Lower Extremity (Hcc) Inflammatory Polyarthritis (Hcc) Dvt (Deep Venous Thrombosis) (Hcc) Pulmonary Embolism, Bilateral (Hcc) Pulmonary Emboli (Hcc) Pmr (Polymyalgia Rheumatica) ([facility]) Generalized Osteoarthritis Ckd (Chronic Kidney Disease) Stage 3, Gfr 30-59 Ml/Min ([facility]) Venous Insufficiency (Chronic) (Peripheral) Homocystinuria Perforated Bowel (Hcc) Pima disease Intra-Abdominal Abscess ([facility]) Traumatic Hematoma of Left Lower Leg Leg Hematoma, Left, Initial Encounter Pelvis, Female Abscess Diarrhea PAST MEDICAL HISTORY Diagnosis Date - Pima disease - Asthma - CKD (chronic kidney disease) stage 3, GFR 30-59 ml/min ([facility]) 11/28/2014 - Contact dermatitis and other eczema, due to unspecified cause - DVT/EMBLSM Lower ext NOS - Enthesopathy of hip - Enthesopathy of hip region - Fibromyalgia - Gastritis - Generalized osteoarthrosis, unspecified site - Hearing loss - 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 Hansen - Inflammatory polyarthropathy - Normocytic anemia - PE (pulmonary thromboembolism) ([facility]) 01/05/14 Bilat, extensive - Pulmonary [...] - VENOUS DUPLEX BOTH LOWER EXTREMITIES 05/12/2016 Current Diet Order DIET LIQUID Order Specific Question: Liquid Diet Answer: CLEAR LIQUID Lines and Drains: Peripheral 06/04/181999 Admission to Hospital Short Left Antecubital 20 Gauge (Active) Nutritional Intake Prior to Admission: <75% estimated energy needs over the past 1 week(s) Met with patient who reported not eating much for the last week since diarrhea started. She said that prior to this she was eating well. She did endorse weight loss. She also mentioned new difficulty swallowing, especially hot and cold beverages. She reported that she has had to be careful about chewing foods up well. Pt was hesitant to receive nutrition supplements, but did agree to receive ensure clear while on liquid diet. GI symptoms: diarrhea Nutrition Abdominal Exam: not assessed ANTHROPOMETRICS Height: 152.4 cm (5') Admission Weight: 72.6 kg (160 lb) Current Weight: 67.3 kg (148 lb 6.4 oz) Body mass index is 28.98 kg/m?. overweight Weight has decreased by 5.3 kg over 1 years representing 7.3 % weight change - potentially clinically significant but does not meet criteria to support a malnutrition diagnosis Last Wt 06/05/18 : 67.3 kg (148 lb 6.4 oz) 02/09/18 : 68 kg (150 lb) 10/11/17 : 70.7 kg (155 lb 13.8 oz) 08/24/17 : 71.7 kg (158 lb) 06/17/17 : 72.6 kg (160 lb) 04/22/17 : 73.5 kg (162 lb) 03/17/17 : 73.1 kg (161 lb 3.2 oz) 12/13/16 : 73.8 kg (162 lb 12.8 oz) 11/05/16 : 72.1 kg (159 lb) 04/23/16 : 73.5 kg (162 lb) 10/17/15 : 75.6 kg (166 lb 9.6 oz) 08/19/15 : 75.8 kg (167 lb) 08/05/15 : 76.7 kg (169 lb) 07/14/15 : 76.7 kg (169 lb) 07/11/15 : 76.7 kg (169 lb) 05/08/15 : 75.8 kg (167 lb) 02/10/15 : 76.2 kg (168 lb) 12/23/14 : 73.6 kg (162 lb 3.2 oz) 11/05/14 : 71.7 kg (158 lb) 07/26/14 : 73 kg (161 lb) Usual Body Weight: 70.5kg [place] Body Weight: 45.5kg Resting Metabolic Rate: 1080 Estimated kilocalorie needs: 8029-7047 kilocalories determined by 25-30 kcal/kg [place] weight Estimated protein needs: 55-68 grams determined by 1.2-1.5 g/kg [place] weight Estimated fluid needs: 1300 milliliters based on 1 mL per kcal NUTRITION FOCUSED PHYSICAL EXAM: Subcutaneous Fat Loss Orbital No fat loss Triceps Mild Mid-axillary at the iliac crest Unable to determine at this time Muscle Loss Locations: Temporalis No muscle loss Pectoralis No muscle loss Deltoids No muscle loss Interosseous Mild Latissimus dorsi, trapezius Unable to determine at this time Quadriceps No muscle loss Gastrocnemius No muscle loss Potential micronutrient deficiency revealed in: Skin - dry and poor turgor Edema: Yes Upper extremities Moderate 2+ and Lower extremities Severe 3 - 4 Ascites: No Assessment of Functional Status: Unable to determine at this time Temperature Max in 24 hours: Temp (24hrs), Av.9 ?C (98.5 ?F), Min:36.9 ?C (98.4 ?F), Max:37 ?C (98.6 ?F) BP 144/69 Pulse 119 Temp 36.9 ?C (98.4 ?F) (Oral) Resp 18 Ht 152.4 cm (5') Wt 67.3 kg (148 lb 6.4 oz) SpO2 100% BMI 28.98 kg/m? Recent Labs 06/05/18 0344 GLUC 83 BUN 37* CREAT 1.58* NA 148* K 3.7 CHLOR 116* CO2 25 HB 8.7* HCT 29.6* WBC 8.33 Potential Signs of Inflammation: ID consulted for antibiotic recommendations. ALLERGIES Allergen Reactions - Ansaid [Flurbiprofe* GI Upset Ulcer - Arthrotec 50 [Diclo* GI Upset Cytotec upset stomach more than just the voltaren by itself - Augmentin [Amoxicil* GI Upset tolerates cephalexin - Doxycycline GI Upset - Erythromycin GI Upset - Grass Pollen - Lodine [Etodolac] - Nsaids (Non-Steroid* Unknown - Poison Lisa - Vioxx [Rofecoxib] GI Upset Current Facility-Administered Medications: metoprolol tartrate (short acting) 25 mg tab(s) (LOPRESSOR) 25 mg ORAL q 12 H ondansetron (PF) 4 mg injection (ZOFRAN) 4 mg INTRAVENOUS q [address] 40 mg tab(s) (PROTONIX) 40 mg ORAL DAILY (6 AM) heparin 5,000 Units injection 5,000 Units SUBCUTANEOUS q 8 H NaCl 0.9% iv infusion 75 mL/hr INTRAVENOUS CONTINUOUS morphine 2 mg injection 2 mg INTRAVENOUS q 3 H PRN hydrocortisone sodium succinate (PF) 50 mg injection (Solu- CORTEF) 50 mg INTRAVENOUS q 8 H piperacillin-tazobactam iv piggyback 3.375 g in dextrose (iso- osmotic) 50 mL (ZOSYN) 3.375 g INTRAVENOUS q 12 H Date 06/04/18 0700 - 06/05/18 0659(Not Admitted) 06/05/18 07 - 06/06/18 0659 Shift 5350-4629 9259-9102 7758-7018 24 Hour Total 8562-3731 0877-2151 0550-8829 24 Hour Total I N T A K E IV 768 768 NS 0.9% 718 718 Zosyn IV 50 50 Shift Total 768 768 O U T P U T Urine 250 250 Void (ml) 250 250 Urine Incontinence/Not Saved 1 x 1 x # of BMs Stool Incontinence 1 x 1 x Number of BMs 3 x 3 x Shift Total 250 250 Weight (kg) 67.3 67.3 67.3 67.3 67.3 67.3 Vitamin and Mineral Labs in the past year: Recent Labs 10/09/17 1530 B12 682 TIBC 182* FE 14* RITO 176.00 MNT Billing Type: Initial Assess/15 min 4 units SIGNATURE: Yazmin Sherwood RD PATIENT NAME: Dia Mccullough DATE: June 05, 2018 TIME: 1:23 PM PAGER: [phone] CONSULT Observed: 06/05/2018 Status: COMPLETED Source: [place] 10:35 AM CLINIC OTHER CAMPUS REPOSITORY O ID: [id number] Author: Duncan Martínez Service: Cardiovascular Medicine Author Type: Physician Type: Consults Filed: 06/05/2018 10:42 AM Note Text: CONSULT: CARDIOLOGY SERVICE SERVICE DATE: 06/05/2018 SERVICE TIME: 10:30 AM CONSULTING PHYSICIAN: Duncan Martínez MD PCP: Rika Wheeler MD ATTENDING: Randi Kolb REASON FOR CONSULT: Arrhythmias Subjective CHIEF COMPLAINT: Perforation of rectum (HCC) [K63.1] HISTORY OF PRESENT ILLNESS: Ms. Mccullough is a 77 year old female who presents for diarrhea and low back pain for the last one week. Patient was initially admitted to [facility] where she was found to have a rectal perforation with pneumoperitoneum. She was transferred here for surgical evaluation. During her hospitalization administer she became tachycardic. A twelve-lead EKG found her to be in atrial fibrillation with RVR. She received one dose of IV Cardizem and she converted to sinus rhythm. Since hospitalization here she has been in sinus rhythm. Patient was minimally symptomatic when she was in atrial fibrillation. She said she felt her carotids going fast. She denies any chest pain shortness of breath. She is not aware of this diagnosis of atrial fibrillation from before. She does have a history of pulmonary embolism 3 years back for which she has been on Eliquis. She said she saw her sales executive Dr. Uriostegui at [place] recently. She said she had an echocardiogram done during that time and was told that it was normal. She denies any lightheadedness syncope orthopnea PND or leg edema. 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 Hansen - Inflammatory polyarthropathy - Normocytic anemia - PE (pulmonary thromboembolism) ([facility]) 01/05/14 Bilat, extensive - Pulmonary [...] - Heart Mother - Heart Father - other (Denies family history of malignancy or thromboembolism.) Other Social History Substance Use Topics - Smoking status: Never Smoker - Smokeless tobacco: Never Used - Alcohol use No Prior to Admission Medications Prescriptions Last Dose Informant Patient Reported? Taking? Omeprazole 40 mg capsule Yes Yes Sig: Take 40 mg by mouth once daily. apixaban (ELIQUIS) 2.5 mg tab tab(s) Yes Yes Sig: Take 2.5 mg by mouth twice daily. folic acid-B6-B12 (FOLCAPS) 2.2-25-0.5 mg tab No Yes Sig: Take 1 tablet by mouth once daily. metoprolol tartrate, short acting, (LOPRESSOR) 25 mg tablet No Yes Sig: Take 1 tablet by mouth every 12 hours. ondansetron orally disintegrating (ZOFRAN ODT) 4 mg disintegrating tablet No No Sig: Take 1 tablet by mouth every 6 hours as needed for Nausea/Vomiting. polyethylene glycol 3350 (MIRALAX, GLYCOLAX) 17 gram packet No Yes Sig: Take 1 Packet by mouth once daily. predniSONE (DELTASONE) 2.5 mg tablet Yes Yes Sig: Take 2.5 mg by mouth daily before dinner. predniSONE (DELTASONE) 5 mg tablet Yes Yes Sig: Take 5 mg by mouth twice daily. warfarin (COUMADIN) 2 mg tablet Yes No Sig: Take 2 mg by mouth daily as directed. Facility-Administered Medications: None Current hospital medications: metoprolol tartrate (short acting) 25 mg tab(s) (LOPRESSOR) 25 mg ORAL q 12 H ondansetron (PF) 4 mg injection (ZOFRAN) 4 mg INTRAVENOUS q [address] 40 mg tab(s) (PROTONIX) 40 mg ORAL DAILY (6 AM) heparin 5,000 Units injection 5,000 Units SUBCUTANEOUS q 8 H NaCl 0.9% iv infusion 75 mL/hr INTRAVENOUS CONTINUOUS morphine 2 mg injection 2 mg INTRAVENOUS q 3 H PRN hydrocortisone sodium succinate (PF) 50 mg injection (Solu- CORTEF) 50 mg INTRAVENOUS q 8 H piperacillin-tazobactam iv piggyback 3.375 g in dextrose (iso- osmotic) 50 mL (ZOSYN) 3.375 g INTRAVENOUS q 12 H ALLERGIES Allergen Reactions - Ansaid [Flurbiprofe* GI Upset Ulcer - Arthrotec 50 [Diclo* GI Upset Cytotec upset stomach more than just the voltaren by itself - Augmentin [Amoxicil* GI Upset tolerates cephalexin - Doxycycline GI Upset - Erythromycin GI Upset - Grass Pollen - Lodine [Etodolac] - Nsaids (Non-Steroid* Unknown - Poison Lisa - Vioxx [Rofecoxib] GI Upset CARDIAC STATUS: Chest Pain: Denies Dyspnea: Negative Ankle Edema: Negative Arrhythmia: Palpitations Present when she was tachycardic.. REVIEW OF SYSTEMS: The following systems were reviewed with the patient, and are unremarkable other than as described below. SYSTEMIC: No fever, chills, or change in weight or appetite HEENT: No recent change in vision or hearing. CARDIOVASCULAR: No murmur, gallop. Denies chest pain or palpitations. GI: No recent nausea, vomiting or diarrhea. : No recent hematuria or dysuria. SKIN: No recent itching or eruption. PSYCH: No recent active anxiety or depression. HEMATOLOGY/ONCOLOGY: No recent diagnosis of bleeding or cancer. ENDOCRINE: No recent polyuria or heat intolerance. NEURO: No recent TIA, stroke or seizures. RHEUMATOLOGY: No recent active connective tissue disease. Objective PHYSICAL EXAM: Pleasant, comfortable, not in acute distress. Awake, alert, oriented times 3. Moves all extremities. SKIN: No rash or lumps. HEENT: Normocephalic, face symmetrical. NECK: Supple, no JVD, no carotid bruit, no thyromegaly. LUNGS: Clear to auscultation bilaterally. CARDIAC: PMI present, RRR, S1 and S2, no S3 or S4, no additional heart sounds or murmurs. ABDOMEN: Soft, nontender, bowel sounds present. EXTREMITIES: No edema. PULSES: Peripheral pulses present. Body mass index is 28.98 kg/m?. O2 Therapy: Room Air No Data Recorded Patient Vitals for the past 48 hrs: BP Temp Temp src Pulse Resp SpO2 Height Weight 06/05/18 0335 144/69 36.9 ?C (98.4 ?F) Oral 119 18 100 % - - 06/05/18 0332 - - - - - - 152.4 cm (5') 67.3 kg (148 lb 6.4 oz) 06/05/18 0248 144/69 - - (!) 107 18 97 % - - 06/05/18 0130 - - - (!) 112 22 99 % - - 06/05/18 0100 158/85 - - (!) 116 21 99 % - - 06/05/18 0035 140/100 37 ?C (98.6 ?F) Oral (!) 130 18 99 % - 72.6 kg (160 lb) DATA: Diagnostic tests reviewed for today's visit: Most recent labs and imaging results. Most recent EKG Past 72 Hour Labs: Recent Labs 06/05/18 0344 WBC 8.33 RBC 2.77* HB 8.7* HCT 29.6* MCV 106.9* MCH 31.4 MCHC 29.4* PLT 158* MPV 10.0 GLUC 83 BUN 37* CREAT 1.58* NA 148* K 3.7 CHLOR 116* CO2 25 CA 7.2* Last Lab Drawn: TSH 4.300 05/15/2015 Triglyceride 138 11/03/2013 HDL Cholesterol 63 11/03/2013 LDL Chol, Annmarie 157 11/03/2013 Cholesterol, Total 248 11/03/2013 Prior Cardiac Workup: Last Echo: 2016: Normal LV function. No significant valvular abnormalities. EKG done on admission to our hospital shows sinus tachycardia. EKG done at [facility] shows sinus tachycardia. Subsequent EKG shows atrial fibrillation at 180 bpm. Impression/Recommendations 1. Paroxysmal atrial fibrillation Patient says she does not have any prior diagnosis of atrial fibrillation. She was in sinus tachycardia on admission but subsequently went into atrial fibrillation with rapid ventricular rate at [facility]. She was given a dose of IV Cardizem and she converted on her own back to sinus rhythm. It's unclear from review of medical records as to how long she was in this rhythm. Upon review of her telemetry here she has been in sinus rhythm/sinus tachycardia. No recurrences of atrial fibrillation. As per the patient she has had a recent echocardiogram which showed normal LV function. We'll try and obtain the copy of that report. She is to continue metoprolol 25 mg by mouth twice a day which she has been taking at home as well. She also has been taking Eliquis at home for pulmonary embolism. This can also be continued once cleared by the surgeon. Her atrial fibrillation was likely triggered by underlying surgical issues. No further cardiac recommendations and will sign off. Patient can follow-up with her sales executive Dr. Uriostegui upon discharge. SIGNATURE: Duncan Martínez MD PATIENT NAME: Dia Mccullough DATE: June 05, 2018 TIME: 10:35 AM PAGER/CONTACT #: CASE [phone] INIT Observed: 06/05/2018 Status: COMPLETED Source: [place] 10:20 AM CLINIC OTHER CAMPUS REPOSITORY HNO ID: [id number] Author: Rosy (Rn) GAURANG Carreno Service: Care Management Author Type: Registered Nurse Type: Care Mgt Initial Assessment Filed: 06/05/2018 10:32 AM Note Text: CARE MANAGEMENT: ASSESSMENT AND DISCHARGE PLAN SERVICE DATE: 06/05/2018 SERVICE TIME: 10:20 AM PRIMARY CARE PHYSICIAN: Dr. Romero ADMISSION STATUS: Inpatient Needs Prior to Discharge: To Be Determined;Pharmacy Bedside Delivery MEDICAL: Patient/Program Services Assistant Stated Goals: To return home to life as it was Health Insurance: [employer] MEDICARE PPO Medicare - Primary per patient +Rx coverage Health Issues Impacting Discharge Plan: Rectal perforation with pneumoperitoneum in the setting of hx of diverticulitis, recent treatment for C diff with current diarrhea Last Admission Date: Previous admit date: 10/08/2017 Is this Within the Past 30 days? No Advance Directive: Current Advance Directive: None Striker Off Attempted to Assist with AD Completion: Yes Action: Education Provided (Social work consulted) Health Literacy: 1. How often do you [...] Status: Alert AND Oriented, Person, Place , Time, Situation and Age Appropriate Functional Status: Independent Does Patient Currently Receive Any Community Services or Home Care? None Equipment Prior to Admission: Walker Wheelchair Has the Patient Been in a [facility] Facility in the Past 30 days? No SOCIAL: Living Arrangement: Home (1 level) Lives With: Alone Financial Resources: Retired Primary Contact: Extended Emergency Contact Information Primary Emergency Contact: Luis Mccullough Hi Relation: Son Supportive: Yes Other Important Patient Contacts: None Caregiver Assessment: Caregiver is ready, willing and able to meet the patient's needs as recommended by the inter-professional team? Yes Patient's transition needs and plan for meeting these needs: Patient states her family/ friends are willing/ able to care for her as needed including providing transportation at [place]. Will follow. Does the patient have an acute stroke diagnosis, or has the patient had a stroke during this admission? No Medication Adherence: I am convinced of the importance of my prescription medication: Agree completely - 0 I worry that my prescription medication will do more harm than good to me Disagree completely - 0 I feel financially burdened by my [id number] expenses for my prescription medication: Disagree completely - 0 Patient is categorized as low risk < [...] Complex? No ASSESSMENT AND PLAN: Medical Needs: 2 or more chronic diseases Psychosocial Needs: None FREEDOM OF CHOICE EXPLAINED: Financial Disclosure Provided Preference: [facility] POTENTIAL TRANSITION PLANS Home Home Care Patient independent at home alone prior to admission. Patient hopeful to return home at discharge. Patient requesting skilled HHC services. Patient's HHC choice is [facility]. [facility] notified. Will follow clinical course for further DC planning needs. SIGNATURE: Rosy Carreno RN PATIENT NAME: Dia Mccullough DATE: June 05, 2018 TIME: 10:20 AM PAGER/CONTACT #: [phone] HEMOGRAM/DIFF Collected: 06/05/2018 Status: F Source: [facility] 3:44 AM HEALTH SYSTEM REPOSITORY TYPE CODE TESTS RESULT OUT OF REFERENCE UNITS RANGE LAB WBC(LOINC) 3.98-10.04 thou/cmm WBC 8.33 LAB RBC(LOINC) 3.93-5.22 mil/cmm Low RBC 2.77 LAB HGB(LOINC) 11.2-15.7 g/dL Low Hgb 8.7 LAB HCT(LOINC) 34.1-44.9 % Low Hct 29.6 LAB MCV(LOINC) 79.4-94.8 fl MCV High 106.9 LAB MCH(LOINC) 25.6-32.2 pg MCH 31.4 LAB MCHC(LOINC 31.6-34.8 % ) Low MCHC 29.4 LAB RDW(LOINC) 11.7-14.4 % RDW High 21.5 LAB RDWSD(LOIN 36.4-46.3 fl C) RDW SD High 84.7 LAB PLT(LOINC) 182-369 thou/cmm Low Platelet 158 LAB MPV(LOINC) 9.4-12.3 fl MPV 10.0 LAB SEG(LOINC) % Seg Neutrophil 86.6 LAB IGRE(LOINC % ) Immature Grans 0.80 LAB LYMPH(LOIN % C) Lymphocyte 8.5 LAB MNO(LOINC) % Monocyte 3.6 LAB EOSIN(LOIN % C) Eosinophil 0.4 LAB BASO(LOINC % ) Basophil 0.1 LAB SEGN(LOINC 1.56-6.13 thou/cmm ) Abs. High Neut (ANC) 7.21 LAB IGAB(LOINC 0.00-0.05 thou/cmm ) Abs High Immature Grans 0.07 LAB LYMN(LOINC 1.18-3.74 thou/cmm ) Low Abs. Lymph 0.71 LAB MONON(LOIN 0.27-0.70 thou/cmm C) Abs. [place] 0.30 LAB EOSN(LOINC 0.00-0.31 thou/cmm ) Abs. Eosin 0.03 LAB BASON(LOIN 0.01-0.08 thou/cmm C) Abs. Baso 0.01 Performed By: #### CBCD1 #### [facility] [address] [id number] BASIC PANEL Collected: 06/05/2018 Status: F Source: [facility] 3:44 AM HEALTH SYSTEM REPOSITORY TYPE CODE TESTS RESULT OUT OF REFERENCE UNITS RANGE LAB NA(LOINC) 136-145 mEq/L Sodium High Blood 148 LAB K(LOINC) 3.5-5.1 mEq/L Potassium Blood 3.7 LAB CL(LOINC) 98-107 mEq/L Chloride High Blood 116 LAB CO2(LOINC) 21-32 mEq/L CO2 Blood 25 LAB GLU(LOINC) 70-99 mg/dL Glucose Blood 83 LAB BUN(LOINC) 7-18 mg/dL BUN High Blood 37 LAB CREA(LOINC 0.51-0.95 mg/dL ) High Creatinine Blood 1.58 LAB CA(LOINC) 8.5-10.1 mg/dL Low Calcium Blood 7.2 LAB ANGAP(LOIN 8-16 C) Anion Gap 11 Performed By: #### P8 #### [facility] [address] [id number] HISTORY PHYSICAL Observed: 06/05/2018 Status: COMPLETED Source: [place] 3:27 AM CLINIC OTHER CAMPUS REPOSITORY HNO ID: [id number] Author: Julio C Mcneal Service: General Internal Medicine Author Type: Physician Type: HANDP Filed: 06/05/2018 5:15 AM Note Text: CONSULT: MEDICAL HOSPITALIST SERVICE SERVICE DATE: 06/05/2018 SERVICE TIME: 3:27 AM REASON FOR CONSULT: Collin's disease, CKD REQUESTING PHYSICIAN: Cortes PRIMARY CARE PHYSICIAN: Rika Wheeler MD Subjective Ms. Mccullough is a 77 year old female with hx of Pima disease, DVT/PE, CKD stage 3, asthma, hypertension, chronic peripheral venous insufficiency, left leg hematoma, an intra-abdominal abscess 2/2 sigmoid diverticulitis, and recent C diff colitis. In September 2017, she was admitted for treatment of the intraabdominal abscess, which included drainage and antibiotics. Today she came to the [place] ER complaining of diarrhea for the past week. A CT there showed rectal perforation with pneumoperitoneum. She was transferred here for surgical evaluation. She was noted to be in atrial fib with RVR and was given Cardizem, which converted her to NSR. She denies fever, chills, chest pain, SOB, nausea, vomiting, or urinary symptoms. She did endorse pain in her left buttock. She was started on IV Zosyn, Cardiology was consulted for a fib, ID was consulted for abx recommendations with pt recently on Cipro, Vanco for C diff. Our medical hospitalist service has been consulted to assist with the management of this patient's steroids and her CKD. In the ER, the patient was afebrile and tachycardic. She was 97-100% on RA. Labs are pending. 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 Hansen - Inflammatory polyarthropathy - Normocytic anemia - PE (pulmonary thromboembolism) ([facility]) 01/05/14 Bilat, extensive - Pulmonary [...] - Heart Mother - Heart Father - other (Denies family history of malignancy or thromboembolism.) Other Social History Substance Use Topics - Smoking status: Never Smoker - Smokeless tobacco: Never Used - Alcohol use No Prescriptions Prior to Admission: apixaban (ELIQUIS) 2.5 mg tab tab(s) Take 2.5 mg by mouth twice daily. Disp: Rfl: folic acid-B6-B12 (FOLCAPS) 2.2-25-0.5 mg tab Take 1 tablet by mouth once daily. Disp: 90 tablet Rfl: 3 Unknown at Unknown time metoprolol tartrate, short acting, (LOPRESSOR) 25 mg tablet Take 1 tablet by mouth every 12 hours. Disp: Rfl: 02/09/2018 at 0800 polyethylene glycol 3350 (MIRALAX, GLYCOLAX) 17 gram packet Take 1 Packet by mouth once daily. Disp: Rfl: Unknown at Unknown time predniSONE (DELTASONE) 2.5 mg tablet Take 2.5 mg by mouth daily before dinner. Disp: Rfl: 02/08/2018 at Unknown time Omeprazole 40 mg capsule Take 40 mg by mouth once daily. Disp: Rfl: 02/08/2018 at Unknown time predniSONE (DELTASONE) 5 mg tablet Take 5 mg by mouth twice daily. Disp: Rfl: 02/09/2018 at 0800 warfarin (COUMADIN) 2 mg tablet Take 2 mg by mouth daily as directed. Disp: Rfl: 02/07/2018 ondansetron orally disintegrating (ZOFRAN ODT) 4 mg disintegrating tablet Take 1 tablet by mouth every 6 hours as needed for Nausea/Vomiting. Disp: 24 tablet Rfl: 0 Past Week at Unknown time Current hospital medications: piperacillin-tazobactam iv piggyback 3.375 g in dextrose (iso- osmotic) 50 mL (ZOSYN) 3.375 g INTRAVENOUS q 6 H NaCl 0.9% 1,000 mL iv bolus 1,000 mL INTRAVENOUS ONCE metoprolol tartrate (short acting) 25 mg tab(s) (LOPRESSOR) 25 mg ORAL q 12 H ondansetron (PF) 4 mg injection (ZOFRAN) 4 mg INTRAVENOUS q [address] 40 mg tab(s) (PROTONIX) 40 mg ORAL DAILY (6 AM) heparin 5,000 Units injection 5,000 Units SUBCUTANEOUS q 8 H NaCl 0.9% iv infusion 75 mL/hr INTRAVENOUS CONTINUOUS morphine 2 mg injection 2 mg INTRAVENOUS q 3 H PRN Allergies As of Date: 06/05/2018 Allergen Noted Reaction ANSAID [FLURBIPROFEN] 12/22/2010 GI Upset ARTHROTEC 50 [DICLOFENAC-MISOPROS*06/24/2011 GI Upset AUGMENTIN [AMOXICILLIN-POT CLAVUL*08/31/2008 GI Upset DOXYCYCLINE 03/17/2005 GI Upset ERYTHROMYCIN 03/17/2005 GI Upset GRASS POLLEN 02/17/2006 LODINE [ETODOLAC] 03/17/2005 NSAIDS (NON-STEROIDAL ANTI-INFLAM*03/11/2017 Unknown POISON LISA 03/17/2005 VIOXX [ROFECOXIB] 03/17/2005 GI Upset Fully Assessed 06/05/2018 COMPLETE REVIEW OF SYSTEMS: ROS reviewed by me and are negative unless otherwise noted in the HANDP above Objective PHYSICAL EXAM: Physical Exam Performed: BP 144/69 Pulse 107 Temp (Src) 98.6 (Oral) Resp 18 Wt 160 lb (72.6kg) SpO2 97% General: Calm, A+Ox3, speaking clearly Skin: Diffuse ecchymoses HEENT: NCAT, EOMI, mucosa moist Lungs: CTA bilat, no wheezes or rhonchi, no use of accessory muscles noted COR: irreg irreg, tachycardia Abd: BS +, mild/mod distention, nontender, no peritoneal signs noted Extremties: 3+ bilat LE edema, chronic wounds to both LEs Neuro: corporate events director grossly intact, symmetrical, nonfocal DATA: Diagnostic tests reviewed for today's visit: Most recent labs Most recent imaging Most recent EKG Impression/Recommendations Active Problems: 1. Rectal perforation with pneumoperitoneum in the setting of hx of diverticulitis, recent treatment for C diff with current diarrhea -- Management of rectal perf with pneumoperitoneum by Surgery -- Management of C diff with recent treatment with cipro, vanco; ID consulted 2. Collin's disease -- Will increase steroid coverage perioperatively -- IV hydrocortisone 50 mg q 8 hours, will plan to taper back to pt's baseline daily dose as indicated. Hold home prednisone doses for now 3. CKD III -- Will obtain renal panel and make recommendations accordingly 4. Atrial fibrillation with RVR -- Cardiology consulted -- Metoprolol 25 mg q 12 hours -- Clarify whether patient takes Eliquis or Warfarin 5. Anticoagulation -- Will be managed by Surgical team SIGNATURE: Julio C Mcneal MD PATIENT NAME: Dia Mccullough DATE: June 05, 2018 TIME: 3:27 AM PAGER: [facility] ED PROV NOTE Observed: 06/05/2018 Status: COMPLETED Source: [place] 1:51 AM CLINIC OTHER CAMPUS REPOSITORY O ID: [id number] Author: Candy Bronson DO Service: Emergency Medicine Author Type: Physician Type: ED Provider Notes Filed: 06/05/2018 1:55 AM Note Text: Attending Note I evaluated the patient and personally participated in the canales components. I agree with the resident's findings and plan as documented and have discussed the case and management of the patient's care with the resident. 77-year-old female presents from [place] ED for surgical consultation due to pneumoperitoneum from a rectal perforation and abscess found on CT scan. Patient states that she's having back pain but denies any current abdominal pain. She denies any nausea or vomiting. Recently treated for C. difficile with antibiotics. She denies chest pain or shortness of breath. She has no other complaints at this time. On exam, vital signs reviewed. Patient is afebrile and nontoxic appearing. Alert and oriented ?3 answering questions appropriately. Skin is warm and dry with no rash or diaphoresis. No jaundice or scleral icterus. Neck supple no JVD. Trachea midline. Head atraumatic and normocephalic. PERRLA, EOMI. Heart tachycardic but regular with no murmurs rubs or gallops. Lungs clear bilaterally with no wheezing rales or rhonchi. Abdomen soft nontender no palpable masses or peritoneal signs. Bowel sounds present. Distal pulses intact and symmetric in all 4 extremities. No lower extremity edema. No unilateral leg swelling. Cranial nerves II through XII intact. Medical decision-makin-year-old female presenting for surgical consultation from outside ED. She is not having any abdominal pain at this time. She denies any nausea or vomiting and actually has an appetite. She was found to be in atrial fibrillation with RVR at the outside ED and treated with Cardizem. Currently she appears to be in sinus rhythm but is tachycardic. She states that earlier she is having some palpitations although this is now resolved after the treatment. She is on Eliquis for history of PE. However, she states that she believes her doctor may have torn the past that she had A. fib but is not exactly sure. However she states that this does sound familiar to her and that she was seen by sales executive but states that she was told she could follow up in [address] report and lab work from outside ED. president & ceo has evaluated the patient. Currently awaiting the recommendations. The patient was given Zosyn at the outside ED as well. Candy Bronson DO 06/05/18 0155 ED NOTE Observed: 06/05/2018 Status: COMPLETED Source: [place] 1:00 AM [facility] OTHER CAMPUS REPOSITORY O ID: [id number] Author: Bj (Rn) GAURANG Eid Service: Emergency Medicine Author Type: Registered Nurse Type: ED Notes Filed: 06/05/2018 1:00 AM Note Text: Patient's identity verified by patient stating name, Patient's identity verified by patient stating date, Patient's identity verified by hospital ID bracelet. Patient placed on cardiac monitor technician, patient placed on non-invasive blood pressure monitor, patient placed on continuous pulse oximetry. Alarms set and on, patient tolerating monitoring. C. Observed: 06/05/2018 Status: F Source: [facility] DIFFICILE BY PCR 1:00 AM HEALTH SYSTEM REPOSITORY Test performed at [facility] NEGATIVE for Toxigenic C. difficile Performed By: #### CDIFX #### [facility] [address] [address] ED NOTE Observed: 06/05/2018 Status: COMPLETED Source: [place] 12:58 AM [facility] OTHER CAMPUS REPOSITORY HNO ID: [id number] Author: Maggie (Rn) GAURANG Mcneill Service: Emergency Medicine Author Type: Registered Nurse Type: ED Notes Filed: 06/05/2018 12:58 AM Note Text: Radiology disc tubed to 110 station EKG Observed: 06/05/2018 Status: F Source: [place] 12:33 AM [facility] OTHER [place] REPOSITORY NAME : DIA MCCULLOUGH PID : [id number] : 1940 Gender : Female Race : ORD : Procedure Date : Jun 05 2018 00:33:53 Edit Date : Jun 05 2018 03:08:43 Diagnosis:SINUS TACHYCARDIA WITH SHORT [place] WITH PREMATURE SUPRAVENTRICULAR COMPLEXES LEFT AXIS DEVIATION ABNORMAL ECG WHEN COMPARED WITH ECG OF 09-OCT-2017 06:17, PREMATURE SUPRAVENTRICULAR COMPLEXES ARE NOW PRESENT NONSPECIFIC T WAVE ABNORMALITY HAS REPLACED INVERTED T WAVES IN LATERAL LEADS Confirmed by DO BRONSON JAMES P ([id number]) on 06/05/2018 3:08:39 AM Ventricular Rate : 121 BPM Atrial Rate : 121 BPM P-R Interval : 110 ms QRS Duration : 70 ms Q-T Interval : 330 ms QTC Calculation(Bezet) : 468 ms P Marshall : 16 degrees R Marshall : -42 degrees T Marshall : 52 degrees Test Reason : Location : 4 : [facility] 9 Overread By : DO BRONSON JAMES P Edited By : DO BRONSON JAMES P Referred By : , Acquired by : [id number], HISTORY PHYSICAL Observed: 06/05/2018 Status: COMPLETED Source: [place] 12:30 AM [facility] OTHER CAMPUS REPOSITORY HNO ID: [id number] Author: Mono Deutsch Service: General Surgery Author Type: Resident Type: HANDP Filed: 06/05/2018 2:15 AM Note Text: Attestation signed by Randi Kolb at 06/05/2018 4:27 PM Discussed with the resident and agree with resident's findings and plan as documented in the resident's note. 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 Pt states that the diarrhea has been ongoing for the past week. There is occasionally BRBPR. Also reports nausea, decreased appetite, 5lb weight loss over the past week, nighttime chills. Pt denies abdominal pain. She has been on multiple antibiotics recently including cipro and vanc, and she reports having c.diff in the recent past. She presented to [facility] earlier this evening where labs were drawn, CT A/P w/ PO contrast obtained showed free air in pelvis c/f rectal perforation. AVSS except tachycardia (afib). Blood cx were sent. Given zosyn and transferred to [facility] Pt Has no prior abdominal surgeries and has never had a colonoscopy. Pt has been seen multiple times in the past year for abdominal pain/septic shock from intraabdominal source in August 2017 (refused surgery, left AMA), and diverticulitis with perforation/abscess (September 2017, treated nonoperatively with abx). She does report left buttocks pain, which has been documented on prior visits (10/11/17) FUNCTIONAL STATUS: Independent PAST MEDICAL HISTORY Diagnosis Date - Collin disease - Asthma - CKD (chronic kidney [...] HTN (hypertension) - Hypercholesterolemia - Inflammatory polyarthritis ([facility] Dr. Hansen - Inflammatory polyarthropathy - Normocytic anemia - PE (pulmonary thromboembolism) ([facility]) 01/05/14 Bilat, extensive - Pulmonary [...] - Heart Mother - Heart Father - other (Denies family history of malignancy or thromboembolism.) Other Social History Substance Use Topics - [...] Upset COMPLETE REVIEW OF SYSTEMS: PAIN ASSESSMENT: chronic back pain GENERAL: 5lb weight loss in past week, nighttime chills, no fevers HEENT: Negative for frequent or significant headaches, No changes in hearing or vision, no nose bleeds or other nasal problems RESPIRATORY: Negative for cough, hemoptysis, wheezing, COPD, dyspnea or shortness of breath CARDIOVASCULAR: leg swelling. Denies chest pain, palpitations GI: see HPI. Positive for diarrhea, nausea, BRBPR, decreased appetite. Negative for emesis : No history of dysuria, frequency or incontinence MUSCULOSKELETAL: back pain and known T12 compression fx after fall in shower weeks ago HEMATOLOGY/LYMPHOLOGY: eliquis, hx of DVT/PE NEURO: negative for headaches, lightheadedness, dizziness Objective PHYSICAL EXAM: Physical Exam Performed: GENERAL: Alert, no distress, cooperative SKIN: diffuse ecchymoses of varying age HEENT: NCAT, EOMI BACK: TTP lower thoracic spine. No stepoffs or deformities LUNGS: unlabored resp on room air CARDIAC: irreg irreg rhythm, tachycardia ABDOMEN: Abdomen soft, mild/moderate distention (though pt says this is normal habitus), non-tender with deep palpation, no rebound or guarding, no peritoneal signs RECTAL: dark brown liquid stool, no gross blood, normal tone EXTREMITIES: 3+ BLE edema, chronic wounds to BLE covering most of bilateral shins NEURO: Grossly normal cognition, motor function, and cranial nerves III-XII BP 158/85 Pulse 112 Temp (Src) 98.6 (Oral) Resp 22 Wt 160 lb (72.6kg) SpO2 99% DATA: Diagnostic tests reviewed for today's visit: Outside chart from [place] reviewed. WBC: 15.2 Hgb 10.8 K+ 4.2 Creatinine 2.[address] Abdomen/Pelvis: FINDINGS: The visualized lung bases are unremarkable. There are coronary artery calcifications present. Please note the lack of intravenous contrast limits evaluation of solid visceral organs. Normal liver. Normal gallbladder and extrahepatic biliary system. Normal spleen. Normal pancreas. Normal bilateral adrenal glands. There is a nonobstructing 5.9 mm right renal calculus. There is a too small to characterize high attenuation rounded focus within the right kidney that likely reflects a proteinaceous cysts. There are grossly stable left renal cysts. Normal visualized stomach. Normal small intestine. There are diverticula throughout the colon sigmoid colon. There is perirectal free air. Within the mesorectal fat right of midline there is a new 1.8 x 2.4 cm round focus that contains air. There is associated free air within the pelvis most pronounced along the left pelvic sidewall and tracking into the left inguinal region. There is persistent soft tissue fullness within the presacral region that contains air. There is non-visualization of the appendix. There is diffuse atherosclerotic calcification of the abdominal aorta, without a demonstrated aneurysm. Normal inferior vena cava. There is free air within the retroperitoneum left of midline. Normal urinary bladder. Normal abdominal wall. There are diffuse degenerative changes of the visualized lumbar spine. There are postsurgical changes throughout the lumbar spine. There is a new T12 compression deformity with approximately 95% height loss within the mid vertebra. There is a retropulsed bony segment extending into the canal by 4.[address]/Abdomen/Pel W ORAL Cont Only IMPRESSION: Free air within the pelvis, with an appearance concerning for rectal perforation. There is associated soft tissue within the right mesorectal fat and presacral region that contain foci of air concerning for underlying abscesses. New T12 compression deformity since the CT dated January 26, 2018, cannot exclude an underlying pathologic fracture. Colonic diverticulosis. Atherosclerosis. Assessment/Plan 77 yo female here with diarrhea, found to have diverticulosis, pericolonic free air. No acute abdominal pain prior to presentation, and clinically benign exam - admit to regular nursing floor - clear liquid diet w/ low rate MIVF - continue zosyn - c. Diff pending - DVT ppx: SQH, SCDs - daily labs - telemetry - pain/nausea control - monitor abdominal exam - consult cardio for afib - consult medicine for CKD, collin's on prednisone - consult ID for abx recs, reportedly recent cipro, vanc, and c. Diff - will likely need follow up CT abdomen pelvis in a few days D/w senior resident loss prevention guard and attending, Dr Kolb Emergency General Surgery Service Pager: For questions or concerns Mon-Fri 6a-5p please page [phone]. After 5pm and on Weekends and Holidays, please page [phone] if in ICU or [phone] if on RNF. SIGNATURE: Mono Deutsch MD PATIENT NAME: Dia Mccullough DATE: June 05, 2018 TIME: 12:30 AM PAGER/CONTACT #: [id number] ED NOTE Observed: 06/05/2018 Status: COMPLETED Source: [place] 12:24 AM CLINIC OTHER CAMPUS REPOSITORY HNO ID: [id number] Author: Verito (Rn) GAURANG Barboza Service: (none) Author Type: Registered Nurse Type: ED Notes Filed: 06/05/2018 12:24 AM Note Text: Bed: 09-ED Expected date: 06/04/18 Expected time: 11:25 PM Means of arrival: Comments: [place] transfer URINALYSIS, COMPLETE Collected: 06/04/2018 Status: F Source: [place] 10:53 PM [facility] REPOSITORY Order Comment: How was Urine Obtained? REVENUE CYCLE SPECIALIST TO SPECIFY TYPE CODE TESTS RESULT OUT OF RANGE REFERENCE UNITS LAB L400.3000 Yellow COLOR Normal Yellow LAB L400.3050 Clear Normal CLARITY Clear LAB L400.3200 Normal mg/dl Normal GLUCOSE, UR Normal LAB L400.3300 Negative mg/dL Normal BILIRUBIN URINE Negative LAB L400.3400 Negative mg/dl High 5 KETONE UR LAB L400.3465 1.002-1.030 Normal SP.GR. DIPSTX 1.025 LAB L400.3550 5.0 - 8.0 pH UR Normal 5.0 LAB L400.3600 Negative mg/dl High PROT 15 DIPSTX LAB L400.3700 Normal mg/dl Normal UROBILI Normal LAB L400.3750 Negative Normal NITRITE UR Negative LAB L400.3780 Negative /ul High 50 OCCULT BLOOD-UR LAB L400.3800 Negative /ul High LEUK ESTERASE 100 LAB L400.4050 0-5 /hpf WBC Normal 0-5 SEEN LAB L400.4100 0-5 /hpf Normal RBC-UA 0-5 SEEN LAB L400.4150 5-10 /hpf SQUAM 0 Normal EPI SEEN LAB L400.4300 None Seen /hpf Normal BACTERIA RARE LAB L400.4350 <or=2+ /hpf Normal MUCUS, URINE RARE LAB L400.4400 0-5 /lpf Normal HYALINE CAST 0-5 SEEN Performed By: #### L400.0001 #### [facility] [address] [place], [address] TROPONIN-I Collected: 06/04/2018 Status: F Source: [place] 10:35 PM [facility] REPOSITORY TYPE CODE TESTS RESULT OUT OF RANGE REFERENCE UNITS LAB L501.4010 <0.045 ng/mL High 0.064 TROPONIN-I Result Comment: TROPONIN-I EXPECTED VALUES <0.045 Negative 0.045 - 0.590 Consistent with Cardiac Damage > OR = 0.600 Critical Value Not every elevated troponin is indicative of MS. These values should be used with clinical judgement in examining the patient's clinical picture for diagnosis. To establish a diagnosis of MS versus myocardial injury, there must be a demonstrated rise and/or fall in the troponin values, in addition to ischemic symptoms, EKG changes, new regional wall motion abnormality, and/or angiographical evidence. PLEASE NOTE: REFERENCE RANGES EDITED 17 Performed By: #### L501.4010 #### [facility] [address] [place], [address] EMERGENCY DEPARTMENT Observed: 06/04/2018 Status: F Source: [place] SUMMARY 10:19 PM [facility] REPOSITORY [facility] Medical Records Department [address] [place] [address] Emergency Department Summary 06/04/18 1825 MR#: [id number] Acct: [id number] Name: DIA MCCULLOUGH Rep #: [id number] : 1940 77 From: Meme Echevarria MD PCP: Jared Romero MD Status: REG ER - ER Visit Summary Date of Service: 06/04/18 Chief Complaint: Diarrhea History of Present Illness: The patient is a 77 F presenting with diarrhea. Patient states that she was on Cipro approximately 5 weeks ago for an infection in her colon. She states following that she developed C. difficile. She finished a course of vancomycin. She continues to have diarrhea. Today she was concerned of bright red blood per rectum. She believes this is irritation secondary to diarrhea. She is on Eliquis for history of previous PE/DVT. She is on prednisone for history of Pima's disease. She denies abdominal pain. Physical Examination: Vitals are stable. Heart rate 135. patient is afebrile. Alert no acute distress. HEENT exam is unremarkable. Neck is supple. Lungs are clear and equal bilaterally. Heart is regular and tachycardic Abdomen is soft nontender nondistended. No guarding or rebound. Rectal erythema and excoriation Extremities are unremarkable. Skin is warm and dry. No focal neurologic deficit. Remainder of exam is unremarkable. Emergency Department Course and Treatment: EKG is sinus tachycardia rate of 125. Patient was given IV fluids, Zofran. CBC shows white count 15.2, hemoglobin 10.8. Chemistries show sodium 146, glucose 153, BUN 49, creatinine 2.21. Chest x-ray shows no acute process. Repeat EKG shows A. fib with RVR rate of 180. She is given Cardizem IV with improvement of her heart rate to 105. CT abdomen pelvis with p.o. contrast shows free air within the pelvis, with an appearance concerning for rectal perforation. There is associated soft tissue within the right mesorectal fat and presacral region that contain foci of air concerning for underlying abscesses. New T12 compression deformity since the CT dated January 26, 2018, cannot exclude an underlying pathologic fracture. Colonic diverticulosis. Atherosclerosis. Blood cultures were sent. She was given Zosyn IV. She remained hemodynamically stable. She requests [facility] for transfer. Discussed with [facility]. Disposition: Transfer [facility] Impression: Pneumoperitoneum, rectal perforation, rectal abscess, acute on chronic kidney injury, new onset A. fib with RVR This note was generated with ModeWalk dictation software. It may contain incorrect words, spelling, and punctuation that were not noted in review of the chart prior to signing ED Disposition - Plan for ED Patient: Chief Complaint: Diarrhea Referrals: Jared Romero MD [Primary Care Provider] - What to do if you have Problems For any increased pain, shortness of breath, bleeding, nausea or vomiting, chest pain, or any unexpected problems, contact your Primary Care Provider. Call [facility] ([phone]) or report to the closest Emergency Room. Call 911 if necessary. 06/04/18 [id number] <Electronically signed by Meme Echevarria MD> Date Meme Echevarria MD Cosigner Signature (If Indicated): Date CC: Jared Romero MD ABDOMEN/PEL W ORAL CONT Observed: 06/04/2018 Status: F Source: [place] 6:54 PM [facility] REPOSITORY [facility] Imaging Services [address] [place] [address] Abdomen/Pel W ORAL Cont Only MR#: [id number] Acct: [id number] Name: DIA MCCULLOUGH Rep #: [id number] : 1940 F 77 From: Amy Little MD PCP: Jared Romero MD Status: REG ER Study: Abdomen/Pel W ORAL Cont Only Date of Exam: 06/04/18 Exam# [id number] Ordering Dr: Meme Echevarria MD []STUDY: CT ABDOMEN AND PELVIS WITHOUT CONTRAST REASON FOR EXAM: Female, 77 years old. Diarrhea with rectal bleeding. RADIATION DOSAGE (If Supplied By Facility): CTDIvol = ( 17.94 ) mGy, DLP = ( 851.52 ) mGycm TECHNIQUE: Transaxial images were obtained from the dome of the diaphragm to the symphysis pubis with oral contrast, and without intravenous contrast. Sagittal and coronal images were reconstructed. Individualized dose optimization techniques were used for this CT. COMPARISON: January 26, 2018 FINDINGS: The visualized lung bases are unremarkable. There are coronary artery calcifications present. Please note the lack of intravenous contrast limits evaluation of solid visceral organs. Normal liver. Normal gallbladder and extrahepatic biliary system. Normal spleen. Normal pancreas. Normal bilateral adrenal glands. There is a nonobstructing 5.9 mm right renal calculus. There is a too small to characterize high attenuation rounded focus within the right kidney that likely reflects a proteinaceous cysts. There are grossly stable left renal cysts. Normal visualized stomach. Normal small intestine. There are diverticula throughout the colon sigmoid colon. There is perirectal free air. Within the mesorectal fat right of midline there is a new 1.8 x 2.4 cm round focus that contains air. There is associated free air within the pelvis most pronounced along the left pelvic sidewall and tracking into the left inguinal region. There is persistent soft tissue fullness within the presacral region that contains air. There is non-visualization of the appendix. There is diffuse atherosclerotic calcification of the abdominal aorta, without a demonstrated aneurysm. Normal inferior vena cava. There is free air within the retroperitoneum left of midline. Normal urinary bladder. Normal abdominal wall. There are diffuse degenerative changes of the visualized lumbar spine. There are postsurgical changes throughout the lumbar spine. There is a new T12 compression deformity with approximately 95% height loss within the mid vertebra. There is a retropulsed bony segment extending into the canal by 4.[address]/Abdomen/Pel W ORAL Cont Only IMPRESSION: Free air within the pelvis, with an appearance concerning for rectal perforation. There is associated soft tissue within the right mesorectal fat and presacral region that contain foci of air concerning for underlying abscesses. New T12 compression deformity since the CT dated January 26, 2018, cannot exclude an underlying pathologic fracture. Colonic diverticulosis. Atherosclerosis. N.B. : The above information has been verbally conveyed by Amy Little MD to Meme Echevarria MD, AA, on 06/04/2018 21:26:12 (ET). Electronically Signed: Amy Little MD at 21:27 EST Tel , Service support , CC: Meme Echevarria MD; Jared Romero MD Turntable Worker: Signed BASIC METABOLIC Collected: 06/04/2018 Status: F Source: [place] PROFILE (BMP) 6:35 PM [facility] REPOSITORY TYPE CODE TESTS RESULT OUT OF RANGE REFERENCE UNITS LAB L501.0100 74-106 mg/dL High GLU 153 Result Comment: Fasting Glucose result greater than or equal to 126 mg/dL suggests DIABETES MELLITUS per A.D.A. criteria. Please note revised GLUCOSE reference range effective 2017. LAB L501.1000 7-18 mg/dL High BUN 49 LAB L501.1100 0.55-1.02 mg/dL High CREAT,SERUM 2.21 Result Comment: The validity of the calculated GFR AND GFRAA in patients over 70 years has not been determined. Clinical correlation is essential. LAB L501.1110 >60 mL/min Low EST GFR 23 Result Comment: Non- GFR Calc LAB L501.1115 >60 mL/min Low EST GFR - AA 28 Result Comment: GFR Calc LAB L501.1255 ml/min Normal Estimated CRCL 15.07 LAB L501.1300 10-20 RATIO High BUN/CRE 22.2 LAB L501.2200 8.5-10 mg/dL Low .1 CA 8.4 LAB L501.5300 136-14 mmol/L High 5 NA 146 LAB L501.5600 3.5-5. mmol/L Normal 1 K 4.2 LAB L501.5900 98-107 mmol/L High CL 109 LAB L501.6100 21.0-3 mmol/L Normal 2.0 CO2 27.0 LAB L501.6200 5-15 Normal GAP 10 Performed By: #### L500.2500 #### [facility] [address] [place], [place] [address], [address] CBC W/DIFF, AUTOMATED Collected: 06/04/2018 Status: F Source: [place] 6:35 PM [facility] REPOSITORY TYPE CODE TESTS RESULT OUT OF RANGE REFERENCE UNITS LAB L100.1000 4.4-11.0 K/mm3 High WBC 15.2 LAB L100.1200 4.2-5.4 M/mm3 Low RBC 3.49 LAB L100.1300 12.0-15.0 g/dl Low HGB 10.8 LAB L100.1400 37-47 % Low HCT 36.5 LAB L100.1500 81-99 fL High MCV 104.6 LAB L100.1600 27.0-32.0 pg Normal MCH 30.9 LAB L100.1700 32-36 g/gl Low MCHC 29.6 LAB L100.1810 11.6-14.6 % High RDW CV 21.8 LAB L100.1820 35.1-43.9 fl High RDW SD 82.3 LAB L100.1900 150-450 K/mm3 Normal PLT 177 LAB L100.2000 6.2-12.0 fl Normal MPV 9.3 LAB L100.2100 47-70 % High NEUT% 94.8 LAB L100.2200 19-41 % Low LY% 2.8 LAB L100.2300 0-10 % Normal MONO% 1.9 LAB L100.2400 0-5 % Normal EO% 0.0 LAB L100.2500 0-1 % Normal BASO% 0.0 LAB L100.2550 0.0-0.9 % Normal IM GRAN % 0.500 Result Comment: IG% - Immature Granulocytes (promyelocytes, myelocytes and metamyelocytes) > 1% indicates that a LEFT SHIFT is Present. LAB L100.2620 2.0-7.7 X10 3/uL High Absolute Neut 14.4 LAB L100.2720 0.83-4.51 X10 3/ul Low Absolute Lymph 0.43 LAB L100.4500 Normal SMEAR COMMENT Result Comment: LYMPHOPENIA NOTED 1+ ANISOCYTOSIS Performed By: #### L100.0100 #### [facility] [address] [facility] [place], [address] CHEST 1 VIEW Observed: 06/04/2018 Status: F Source: [place] (PORTABLE) 6:19 PM [facility] REPOSITORY [facility] Imaging Services [address] [place] [address] Chest 1 View (Portable) MR#: [id number] Acct: [id number] Name: DIA MCCULLOUGH Rep #: [id number] : 1940 F 77 From: Amy Little MD PCP: Jared Romero MD Status: REG ER Study: Chest 1 View (Portable) Date of Exam: 06/04/18 Exam# [id number] Ordering Dr: Meme Echevarria MD STUDY: X-RAY CHEST REASON FOR EXAM: Female, 77 years old. Rectal bleeding TECHNIQUE: Single frontal view of the chest. COMPARISON: May 06, 2018 FINDINGS: There is no new focal consolidation. Normal size heart. Normal mediastinum and kina. Normal visualized pulmonary arteries. There is atherosclerotic calcification of the aortic arch with tortuosity. Normal visualized thoracic spine. Normal visualized ribs, clavicles, and shoulders. There are pedicle screws within the visualized lower lumbar spine. There is no demonstrated abnormality of the visualized soft tissue structures of the upper abdomen. RAD/Chest 1 View (Portable) IMPRESSION: No acute cardiopulmonary process. Electronically Signed: Amy Little MD at 19:37 EST Tel , Service support , CC: Meme Echevarria MD; Jared Romero MD Turntable Worker: Signed CBC W/DIFF, AUTOMATED Collected: 05/23/2018 Status: F Source: [place] 3:09 PM [facility] REPOSITORY TYPE CODE TESTS RESULT OUT OF RANGE REFERENCE UNITS LAB L100.1000 4.4-11.0 K/mm3 High WBC 11.6 LAB L100.1200 4.2-5.4 M/mm3 Low RBC 3.84 LAB L100.1300 12.0-15.0 g/dl Low HGB 11.5 LAB L100.1400 37-47 % Normal HCT 40.3 LAB L100.1500 81-99 fL High MCV 104.9 LAB L100.1600 27.0-32.0 pg Normal MCH 29.9 LAB L100.1700 32-36 g/gl Low MCHC 28.5 LAB L100.1810 11.6-14.6 % High RDW CV 21.5 LAB L100.1820 35.1-43.9 fl High RDW SD 82.5 LAB L100.1900 150-450 K/mm3 Normal PLT 396 LAB L100.2000 6.2-12.0 fl Normal MPV 9.8 LAB L100.2100 47-70 % High NEUT% 87.4 LAB L100.2200 19-41 % Low LY% 5.4 LAB L100.2300 0-10 % Normal MONO% 6.6 LAB L100.2400 0-5 % Normal EO% 0.1 LAB L100.2500 0-1 % Normal BASO% 0.1 LAB L100.2550 0.0-0.9 % Normal IM GRAN % 0.400 Result Comment: IG% - Immature Granulocytes (promyelocytes, myelocytes and metamyelocytes) > 1% indicates that a LEFT SHIFT is Present. LAB L100.2620 2.0-7.7 X10 3/uL High Absolute Neut 10.1 LAB L100.2720 0.83-4.51 X10 3/ul Low Absolute Lymph 0.63 LAB L100.4500 Normal SMEAR COMMENT SCANNED LAB L100.7300 Normal ANISO 2+ Performed By: #### L100.0100, L503.6075, L503.6150, L503.6550 #### [facility] [address] [place], [place], [address] IRON BINDING Collected: 05/23/2018 Status: F Source: [facility],[place] 3:09 PM [facility] REPOSITORY TYPE CODE TESTS RESULT OUT OF RANGE REFERENCE UNITS LAB L503.6075 250-450 ug/dL Normal TIBC 265 Performed By: #### L100.0100, L503.6075, L503.6150, L503.6550 #### [facility] [address] [place], [place], [address] IRON Collected: 05/23/2018 Status: F Source: [place] 3:09 PM [facility] REPOSITORY TYPE CODE TESTS RESULT OUT OF RANGE REFERENCE UNITS LAB L503.6150 50-170 ug/dL Normal IRON 50 Performed By: #### L100.0100, L503.6075, L503.6150, L503.6550 #### [facility] [address] [place], [place], [address] FERRITIN Collected: 05/23/2018 Status: F Source: [place] 3:09 PM [facility]POSITORY TYPE CODE TESTS RESULT OUT OF RANGE REFERENCE UNITS LAB L503.6550 8-252 ng/mL Normal FERRITIN 205 Performed By: #### L100.0100, L503.6075, L503.6150, L503.6550 #### [facility] [address] [place], [place], [address] COMPREHENSIVE METABOLIC Collected: 05/23/2018 Status: F Source: ANNMARIE PROFIL 3:09 PM [facility] REPOSITORY TYPE CODE TESTS RESULT OUT OF RANGE REFERENCE UNITS LAB L501.0100 74-106 mg/dL Normal GLU 90 Result Comment: Please note revised GLUCOSE reference range effective 2017. LAB L501.1000 7-18 mg/dL High BUN 22 LAB L501.1100 0.55-1.02 mg/dL High CREAT,SERUM 1.36 Result Comment: The validity of the calculated GFR AND GFRAA in patients over 70 years has not been determined. Clinical correlation is essential. LAB L501.1110 >60 mL/min Low EST GFR 40 Result Comment: Non- GFR Calc LAB L501.1115 >60 mL/min Low EST GFR - AA 48 Result Comment: GFR Calc LAB L501.1300 10-20 RATIO Normal BUN/CRE 16.2 LAB L501.1500 6.4-8.2 g/dL Low T PROT 6.0 LAB L501.1800 3.2-5.0 g/dL Low ALB 2.8 LAB L501.1950 2.2-4.2 g/dL Normal GLOB 3.2 LAB L501.2000 0.9-2.4 RATIO Normal A/G 0.9 LAB L501.2200 8.5-10.1 mg/dL CA Normal 8.8 LAB L501.4100 15-37 U/L Low AST 12 LAB L501.4305 45-117 U/L Normal ALK P 71 LAB L501.4405 13-56 U/L Normal ALT 34 LAB L501.4600 0.20-1.00 mg/dL T Normal BILI 0.40 LAB L501.5300 136-145 mmol/L High NA 146 LAB L501.5600 3.5-5.1 mmol/L K Normal 4.3 LAB L501.5900 98-107 mmol/L CL Normal 106 LAB L501.6100 21.0-32.0 mmol/L Normal CO2 28.0 LAB L501.6200 5-15 Normal GAP 12 Performed By: #### L500.4050 #### [facility] [address] [place], [address] BASIC METABOLIC Collected: 05/10/2018 Status: F Source: ANNMARIE PROFILE (BMP) 1:59 PM [facility] REPOSITORY TYPE CODE TESTS RESULT OUT OF RANGE REFERENCE UNITS LAB L501.0100 74-106 mg/dL High GLU 117 Result Comment: Fasting Glucose result from 100 to 125 mg/dL suggests IMPAIRED HOMEOSTASIS per A.D.A. criteria. Please note revised GLUCOSE reference range effective 2017. LAB L501.1000 7-18 mg/dL High BUN 20 LAB L501.1100 0.55-1.02 mg/dL High CREAT,SERUM 1.49 Result Comment: The validity of the calculated GFR AND GFRAA in patients over 70 years has not been determined. Clinical correlation is essential. LAB L501.1110 >60 mL/min Low EST GFR 36 Result Comment: Non- GFR Calc LAB L501.1115 >60 mL/min Low EST GFR - AA 43 Result Comment: GFR Calc LAB L501.1300 10-20 RATIO Normal BUN/CRE 13.4 LAB L501.2200 8.5-10.1 mg/dL CA Normal 8.9 LAB L501.5300 136-145 mmol/L NA Normal 145 LAB L501.5600 3.5-5.1 mmol/L K Normal 4.1 LAB L501.5900 98-107 mmol/L CL Normal 107 LAB L501.6100 21.0-32.0 mmol/L Normal CO2 27.0 LAB L501.6200 5-15 Normal GAP 11 Performed By: #### L500.2500, L501.5200 #### [facility] [address] [place], [address] MAGNESIUM Collected: 05/10/2018 Status: F Source: ALANSON 1:59 PM [facility] REPOSITORY TYPE CODE TESTS RESULT OUT OF RANGE REFERENCE UNITS LAB L501.5200 1.6-2.6 mg/dL Normal MG 1.9 Performed By: #### L500.2500, L501.5200 #### [facility] [address] [place], [address] EMERGENCY DEPARTMENT Observed: 05/08/2018 Status: F Source: ANNMARIE SUMMARY 7:03 AM [facility] REPOSITORY [facility] Medical Records Department [address] [place] [address] Emergency Department Summary 05/06/18 1618 MR#: [id number] Acct: [id number] Name: DIA MCCULLOUGH Rep #: [id number] : 1940 77 From: Bj Chan DO PCP: Jared Romero MD Status: DIS ARIANA - ER Visit Summary Date of Service: 05/06/18 Chief Complaint: Cough History of Present Illness: The patient is a 77 F who states that for the past 7 days she has been ill. She notes a cough with some sputum production chills a slight sore throat nausea and some loose stools. She notes generalized body aches. She states on she went to urgent care and was given a prescription for Levaquin. She states she has not been eating and drinking well. She has history of Interceed no cyst chronic kidney disease prior DVT and PE retention and hypercholesterolemia as well as Pima's disease. Physical Examination: Temperature 99.8 orally heart rate 137 respirations are 105 pulse ox is 99% on room air blood pressure 163/90 Gen: Well-nourished well-developed Head: Normocephalic atraumatic Eyes: Perrl EOMI ENT: TMs clear no rhinorrhea moist mucous membranes Neck: Supple no lymphadenopathy no JVD nontender CVS: Regular rate tachycardic rhythm 2 out of 6 systolic murmur Respiratory: No distress patient has rhonchorous lung sounds that improved with cough chest nontender Abdomen: Soft nontender nondistended normal bowel sounds no masses Back: Nontender Extremity: Nontender no edema Skin: Normal color no rash Neuro: alert orientated 3 CN II-XII intact normal strength sensation reflexes Psych: Normal affect normal mood Test Results: EKG shows a sinus tachycardia at a rate of 134. White count 7.2 with hemoglobin 10.6. Influenza is negative. Creatinine 1.48. Lactic acid troponin negative. Chest x-ray shows no infiltrates. Emergency Department Course and Treatment: Patient has received IV fluids. Patient also received aerosols. While here in the emergency room the patient had a mucousy stool with red streaks. This was sent for stool studies. Patient also received a dose of Solu-Cortef. Plan will be admission into the hospital. Impression: 1. Acute bronchitis 2. Sinus tachycardia 3. Dehydration This note was generated with 20:20 Mobileation software. It may contain incorrect words, spelling, and punctuation that were not noted in review of the chart prior to signing ED Disposition - Plan for ED Patient: Chief Complaint: Cold Sx Referrals: Jared Romero MD [Primary Care Provider] - What to do if you have Problems For any increased pain, shortness of breath, bleeding, nausea or vomiting, chest pain, or any unexpected problems, contact your Primary Care Provider. Call [facility] ([phone]) or report to the closest Emergency Room. Call 911 if necessary. 05/08/18 0703 <Electronically signed by Bj Chan DO> Date Bj Chan DO Cosigner Signature (If Indicated): Date CC: Jared Romero MD DISCHARGE SUMMARY Observed: 05/07/2018 Status: F Source: ALANSON 6:04 PM [facility] REPOSITORY [facility] Medical Records Department [address] [place] [address] Discharge Summary 05/07/18 1400 MR#: [id number] Acct: [id number] Name: DIA MCCULLOUGH Rep #: [id number] : 1940 77 From: Jodi Holden LAUNDERER HAND-C PCP: Jared Romero MD Status: DIS ARIANA Y Location: [place] [address] <Jodi Holden - Last Filed: 05/07/18 14:09> Discharge Date and Diagnosis Date of Admission: 05/06/18 Date of Discharge: 05/07/18 - Primary Discharge Diagnosis 1. Acute bronchitis secondary to RSV A 2. Acute C. difficile 3. Staph + urine culture, suspect contamination 4. Sinus tachycardia 5. Chronic iron deficiency anemia with occult blood positive stool 6. Chronic venous insufficiency with right lower extremity venous stasis dermatitis/wound to right lateral calf, present on admission - Secondary Discharge Diagnosis Chronic Problems (Last Reviewed 05/04/18 @ 12:51 by Desi Garcia) Non-rheumatic aortic stenosis (Chronic) Hypertensive nephropathy (Chronic) Hyperlipidemia (Chronic) Atherosclerosis of coronary artery of [place] heart without angina pectoris (Chronic) Bilateral pulmonary embolism (Chronic) DVT (deep venous thrombosis) (Chronic) Stage III chronic kidney disease (Chronic) Addisons disease (Chronic) Hospital Course and Treatment Imaging Results: Diagnostic Data Chest X-Ray 05/06/18 14:45 IMPRESSION: No airspace consolidation or pleural effusion. Stable exam since 03/02/2018 Electronically Signed: Misael Jiménez MD at 15:23 EST , Service support , Consultations 05/06/18 19:55 Consult: Onc/Wound/hand meat salter Routine Comment: Reason for Consult:: Right lower leg ulcer Operations: None Procedures: None Summary of Care Provided: The patient is a 77 year old F admitted 05/06/2018 due to cough, fever, diarrhea, weakness. She has a past medical history of chronic kidney disease stage III, history of DVT in 2012 and PE in September 2017, Pima's disease, hypertension, hyperlipidemia, history of bowel perforation, iron deficiency anemia, chronic venous insufficiency. 1. Acute bronchitis, secondary to acute RSV A, initially treated as outpatient with Levaquin-chest x-ray on admission without acute process. Patient will continue prednisone 20 mg twice daily for 5 days. She will then resume prior prednisone regimen which includes 10 mg in the morning and 5 mg at night which she takes chronically for adrenal insufficiency. Patient was given albuterol inhaler for as needed use for shortness of breath/wheezing. Breathing and cough improved. Follow-up with primary care physician in 1 week. 2. Acute C. difficile-diarrhea improved. Discharged on vancomycin 125 mg p.o. 4 times daily for 10 days. 3. Sinus tachycardia-unclear etiology. Increase home metoprolol regimen to 25 mg twice daily. Patient had echo February 2018 which showed an EF of 55%, stage I diastolic dysfunction, mild aortic stenosis. EKG showed sinus tachycardia. Heart rate well controlled on increase metoprolol regimen. Patient follows with Dr. Uriostegui, continue outpatient follow-up. 4. Chronic iron deficiency anemia-stool positive for occult blood. Hemoglobin stable. Baseline hemoglobin 8-10. Hemoglobin on admission 10.6. Follow-up with primary care physician in 1 week with further workup as found appropriate. 5. Chronic venous insufficiency, with right lower venous stasis dermatitis wound right lateral calf, present on admission-cleanse with normal saline daily. Apply Adaptic to right lower extremity. Darcy wraps bilateral lower extremities. Wound does not appear infected, no drainage noted. 6. Chronic kidney disease stage III-at baseline. 7. 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 9. Hypertension-stable, home metoprolol regimen increased to 25 mg twice daily. 10. Hyperlipidemia-not on statin. 11. History of bowel perforation/intra-abdominal abscess/history of GI bleed-continue PPI General: Alert, Oriented x3, Cooperative HEENT: Atraumatic, PERRLA, EOMI, Normocephalic Oral: Dry Mucosa Neck: Supple, No JVD, Negative Carotid Bruits Lungs: Diminished, Rhonchi Cardiovascular: Regular Rhythm, Normal S1, Normal S2, Murmur, Tachycardic Abdomen: Bowel Sounds Present, Soft, Non Tender, Non-Distended Extremities: No clubbing, No cyanosis, Capillary Refill Less than 3 Seconds, Edema - BLLE Skin: - - Right lateral calf open area, not infected appearing. No drainage. Chronic bilateral lower extremity stasis dermatitis. Musculoskeletal: No Tenderness to Palpation of Joints or Extremities Neurological: Cranial nerves II-XII grossly intact, Neuro grossly intact Psych/Mental Status: Normal Affect, Appropriate Patient seen and examined prior to discharge. Physical assessment as noted above. Patient is stable for discharge with follow up recommendations as noted above. This patient was seen by KATHY Beltran under the supervision of Dr. Llamas. - Physical Exam Vital Signs Temp Pulse Resp BP Pulse Ox 98.1 F 95 16 148/71 H 96 05/07/18 12:41 05/07/18 12:41 05/07/18 12:41 05/07/18 12:41 05/07/18 12:41 Oxygen Flow Rate (L/min) 2 Oxygen Delivery Method Room Air Weight: 150 lb 2.157 oz Body Mass Index (BMI) 29.3 Intake and Output for Last 24 Hours Intake Total 712 / 712 1818 / 1818 Balance 712 / 712 1818 / 1818 Microbiology Past 72 Hours 05/06/18 16:23 Urine Culture - Preliminary Urine, Clean Catch Staphylococcus species 05/06/18 20:10 Respiratory Panel (PCR) - Final Mucosa - Nasopharyngeal RSV A Laboratory Tests Past 24 Hrs WBC RBC Discharge Diet: Low fat/ Low Cholesterol Discharge Activity: Return to Normal Activity Call your doctor if you observe: Fever of 101 or Higher, Shortness of breath, Dizziness, Fainting spells, Chest pain Home Medications: Medications to take at Discharge Prednisone 5 mg PO LUNCH 09/18/17 Acetaminophen [Tylenol] 1,000 mg PO Q8H PRN PRN tab 10/28/17 apixaban 5 mg tablet 2.5 mg PO BID tab 02/14/18 potassium chloride ER 10 mEq tablet,extended release 10 meq PO DAILY 02/14/18 B12/Levomefolate Calcium/B-6 [Folbic Rf Tablet] 1 ea PO DAILY 04/07/18 Omeprazole [Prilosec] 10 mg PO DAILY 04/07/18 Prednisone 10 mg PO BREAKFAST 04/07/18 traMADol [Ultram] 25 mg PO BID 04/07/18 Albuterol Inhaler [Ventolin Hfa] 1 - 2 puff INHALATION Q4H PRN PRN #1 inhaler 05/07/18 Menthol/Lanolin/Calamine/Znox [Calmoseptine Ointment] 1 applic TOPICAL BID tube 05/07/18 Metoprolol Tartrate [Lopressor (beta ab)] 25 mg PO BID #60 tablet 05/07/18 Vancomycin [Vancocin] 125 mg PO Q6H 10 Days #40 capsule 05/07/18 predniSONE tablet 20 mg PO BIDCM #10 tablet 05/07/18 Following Prescrptions Were Given to Patient: Albuterol Inhaler [Ventolin Hfa] 1 - 2 puff INHALATION Q4H PRN PRN #1 inhaler PRN Reason: Shortness Of Breath Metoprolol Tartrate [Lopressor (beta ab)] 25 mg PO BID #60 tablet predniSONE tablet 20 mg PO BIDCM #10 tablet Vancomycin [Vancocin] 125 mg PO Q6H 10 Days #40 capsule Primary Care Physician: Jared Romero MD [Primary Care Provider] - Please follow up with your Primary Care Physician in: 1 Week Disposition: Home Minutes spent on discharge:: 35 Patient Condition:: Stable Medical Necessity - Tobacco Use Smoking Status: Never smoker Meaningful Use Info Meaningful Use Diagnoses (Choose all that apply): None applicable <Mansoor Llamas Last Filed: 05/07/18 18:04> Discharge Date and Diagnosis - Secondary Discharge Diagnosis Chronic Problems (Last Reviewed 05/04/18 @ 12:51 by Desi Garcia) Non-rheumatic aortic stenosis (Chronic) Hypertensive nephropathy (Chronic) Hyperlipidemia (Chronic) Atherosclerosis of coronary artery of [place] heart without angina pectoris (Chronic) Bilateral pulmonary embolism (Chronic) DVT (deep venous thrombosis) (Chronic) Stage III chronic kidney disease (Chronic) Addisons disease (Chronic) Hospital Course and Treatment Consultations 05/06/18 19:55 Consult: Onc/Wound/hand meat salter Routine Comment: Reason for Consult:: Right lower leg ulcer Summary of Care Provided: This patient was seen in conjunction with Jodi LILLY. I have independently interviewed and examined the patient and reviewed pertinent history, examination findings, laboratory and plan of management. I have reviewed the note and agree with the documented findings with the few additional points. In brief, patient is admitted for acute bronchitis secondary to RSV and acute C. difficile colitis secondary to recent Levaquin. Patient does not need antibiotic. Patient is discharged on vancomycin 125 mg p.o. 4 times daily for 10 more days. Patient is on conservative management for chronic venous insufficiency. Patient also advised to follow vascular surgeon for chronic venous insufficiency and venous valve incompetence. I have discussed my assessment with Jodi LILLY and orders have been reviewed. [] Discharge medication reconciliation done. Discharge follow- up instructions completed. Discharge process discussed with the patient. Subjective: Seen and examined. Patient had about 2-3 loose bowel movement yesterday and today she had one semisolid bowel movement. No blood in the stool noticed. Patient recently had Cipro and most probably colitis C. difficile after Cipro. Patient also has viral bronchitis. - Physical Exam General: Alert, Oriented x3, Cooperative HEENT: Atraumatic, PERRLA, EOMI, Normocephalic, - - Hard of hearing Neck: Supple, No JVD, Negative Carotid Bruits Lungs: Diminished - Air entry diminished., Rhonchi Cardiovascular: Regular rate, Regular Rhythm, Normal S1, Normal S2, No murmurs Abdomen: Bowel Sounds Present, Soft, Non Tender Extremities: Capillary Refill Less than 3 Seconds, Edema - Edema of both lower extremities. Patient has history of DVT and PE and venous incompetence of valves of deep veins of lower extremities secondary to chronic venous thrombosis. Follows vascular surgeon. Skin: No rashes, No breakdown Musculoskeletal: No Tenderness to Palpation of Joints or Extremities, Arthritic Changes, Muscle Wasting Neurological: Cranial nerves II-XII grossly intact Psych/Mental Status: Normal Affect, Appropriate Vital Signs Temp Pulse Resp BP Pulse Ox 98.1 F 104 H 20 H 148/71 H 96 05/07/18 12:41 05/07/18 14:01 05/07/18 14:01 05/07/18 12:41 05/07/18 12:41 Oxygen Flow Rate (L/min) 2 Oxygen Delivery Method Room Air Weight: 150 lb 2.157 oz Body Mass Index (BMI) 29.3 Intake and Output for Last 24 Hours Intake Total 712 / 712 1818 / 1818 Balance 712 / 712 181 / 181 Microbiology Past 72 Hours 05/06/18 16:23 Urine Culture - Preliminary Urine, Clean Catch Staphylococcus species 05/06/18 20:10 Respiratory Panel (PCR) - Final Mucosa - Nasopharyngeal RSV A Code Visit OBSV E AND M: [id number] Observation care discharge 05/07/18 1410 <Electronically signed by Jodi CORNELIUSC> Date Jodi CORNELIUSC 05/07/18 1804<Electronically signed by Mansoor Llamas MD> Cosigner Signature (if applicable): Date Mansoor Llamas MD CC: LAUNDERER HAND-Amada Holden; Jared Romero MD; Mansoor Llamas MD Signed DISCHARGE INSTRUCTION Observed: 05/07/2018 Status: F Source: ANNMARIE 2:00 PM [facility] REPOSITORY [facility] Medical Records Department [address] [place] [address] Instructions for Home/Discharge Instructions 05/07/18 1356 MR#: [id number] Acct: [id number] Name: JAMELDIA Wade Rep #: [id number] : 1940 77 From: Jodi Holden LAUNDERER HAND-C PCP: Jared Romero MD Status: ADM ARIANA You will use the following diet at home:: Cardiac Discharge Activity: Return to Normal Activity Call your doctor if you observe: Fever of 101 or Higher, Shortness of breath, Dizziness, Fainting spells, Chest pain Additional Instructions: Your home metoprolol regimen was increased to 25mg twice daily for better control of your heart rate. You were prescribed increased dose of prednisone for bronchitits. You will take prednisone 20mg twice daily for 5 days and then resume previous regimen of 10mg in the morning and 5mg at night. Allergies/Adverse Reactions: Allergies Iodine and Iodide Containing Produc Allergy (Verified 05/06/18 12:46) Unknown amoxicillin trihydrate [From Augmentin] Adverse Reaction (Verified 05/06/18 12:46) Upset Stomach diclofenac sodium [From Arthrotec] Adverse Reaction (Verified 05/06/18 12:46) Upset Stomach doxycycline Adverse Reaction (Verified 05/06/18 12:46) Upset Stomach erythromycin base Adverse Reaction (Verified 05/06/18 12:46) Upset Stomach etodolac [From Lodine] Adverse Reaction (Verified 05/06/18 12:46) Upset Stomach flurbiprofen [From Ansaid] Adverse Reaction (Verified 05/06/18 12:46) Upset Stomach misoprostol [From Arthrotec] Adverse Reaction (Verified 05/06/18 12:46) Upset Stomach NSAIDS (Non-Steroidal Anti-Inflamma Adverse Reaction (Verified 05/06/18 12:46) Other potassium clavulanate [From Augmentin] Adverse Reaction (Verified 05/06/18 12:46) Upset Stomach rofecoxib [From Vioxx] Adverse Reaction (Verified 05/06/18 12:46) Upset Stomach Medications to take at Discharge Prednisone 5 mg PO LUNCH 09/18/17 Acetaminophen [Tylenol] 1,000 mg PO Q8H PRN PRN tab 10/28/17 apixaban 5 mg tablet 2.5 mg PO BID tab 02/14/18 potassium chloride ER 10 mEq tablet,extended release 10 meq PO DAILY 02/14/18 B12/Levomefolate Calcium/B-6 [Folbic Rf Tablet] 1 ea PO DAILY 04/07/18 Omeprazole [Prilosec] 10 mg PO DAILY 04/07/18 Prednisone 10 mg PO BREAKFAST 04/07/18 traMADol [Ultram] 25 mg PO BID 04/07/18 Albuterol Inhaler [Ventolin Hfa] 1 - 2 puff INHALATION Q4H PRN PRN #1 inhaler 05/07/18 Menthol/Lanolin/Calamine/Znox [Calmoseptine Ointment] 1 applic TOPICAL BID tube 05/07/18 Metoprolol Tartrate [Lopressor (beta ab)] 25 mg PO BID #60 tablet 05/07/18 Vancomycin [Vancocin] 125 mg PO Q6H 10 Days #40 capsule 05/07/18 predniSONE tablet 20 mg PO BIDCM #10 tablet 05/07/18 The following prescriptions were given: Albuterol Inhaler [Ventolin Hfa] 1 - 2 puff INHALATION Q4H PRN PRN #1 inhaler PRN Reason: Shortness Of Breath Metoprolol Tartrate [Lopressor (beta ab)] 25 mg PO BID #60 tablet predniSONE tablet 20 mg PO BIDCM #10 tablet Vancomycin [Vancocin] 125 mg PO Q6H 10 Days #40 capsule Primary Care Physician: Jared Romero MD [Primary Care Provider] - Please follow up with your Primary Care Physician in: 1 Week Test Results: Test results from this visit will be discussed in further detail at your follow-up appointment, if applicable. Proposed Discharge Date: 05/07/18 05/07/18 1400 <Electronically signed by Jodi CHAVEZ> Date Jodi CHAVEZ CC: Jared Romero MD Signed HISTORY AND PHYSICAL Observed: 05/06/2018 Status: F Source: ALANSON EXAM 8:17 PM [facility] REPOSITORY [facility] Medical Records Department [address] [place] [address] History and Physical 05/06/18 1707 MR#: [id number] Acct: [id number] Name: DIA MCCULLOUGH Mauro Rep #: [id number] : 1940 77 From: Jodi Holden LAUNDERER HAND-C PCP: Jared Romero MD Status: ADM ARIANA Y Location: [place] [address]-1 ADDENDUM by Akira Adams DO on 05/06/18 at 2017 Code Visit Patient was seen and examined in the emergency room at [facility] independently of Jodi Holden today, she came to the emergency room today with complaints of cough and generalized weakness. During the time she was in the emergency room, patient had a foul-smelling diarrheal bowel movement. Patient had been seen 3 days ago with complaints of cough and was diagnosed with a URI and placed on Levaquin. She complains of nausea today. Workup in the emergency room included a CBC which was unremarkable except for a hemoglobin of 10.6, patient's chemistry profile revealed an elevated creatinine at 1.48, chest x-ray showed no airspace consolidation or pleural effusion, EKG showed a sinus tachycardia at 134 without evidence of ischemic changes. Physical exam: On examination she appeared in good health and spirits. Vital signs as documented. Skin warm and dry and without overt rashes. Neck without JVD. Lungs clear. Heart exam notable for regular rhythm, heart rate is tachycardic, normal heart sounds are present, there is a 2/6 systolic murmur noted at the left sternal border and apex. Abdomen unremarkable and without evidence of organomegaly, masses, or abdominal aortic enlargement. Extremities-there is evidence of chronic edematous changes to both lower legs, there is some breakdown of the patient's skin on the lateral aspect of her right lower leg, no purulent discharge is noted in the area however. Stasis dermatitis changes of both lower legs are noted to be present. Neuro: Cranial nerves II through XII were intact, no focal motor deficits were noted. Psych: Patient is alert and oriented x3, she does not appear to be depressed or anxious Patient states that she has not taken her metoprolol today, she has old EKGs in her medical record that I have reviewed all of which show a tachycardia but not to the extent that she is tachycardic today. Patient will be placed and observation status on PCU, aerosol treatments will be continued for her bronchitis, she will be placed on oral Zithromax for her bronchitis, stool culture will be obtained for enteric pathogens and C. difficile. Patient will be restarted on her metoprolol, I will use a higher dose at 25 mg twice daily. Patient received a dose of Solu-Medrol in the emergency room, I have elected to place her on prednisone 20 mg twice daily for now, she has a history of Collin's disease. I have reviewed Jodi Holden's history and physical including her assessment and medical plan of care and endorse it. OBSV E AND M: [id number] Initial observation care L3 05/06/18 2017 <Electronically signed by Akira Adams DO> Date Akira Adams DO cc: LAUNDERER HAND-C Jodi Holden; Jared Romero MD; Akira Adams DO * Signed Problem List (1) Bronchitis Status: Acute (2) Non-rheumatic aortic stenosis Status: Chronic (3) Hypertensive nephropathy Status: Chronic (4) Hyperlipidemia Status: Chronic Qualifiers: Hyperlipidemia type: pure hypercholesterolemia Qualified Code(s): E78.00 - Pure hypercholesterolemia, unspecified; E78.0 - Pure hypercholesterolemia (5) Atherosclerosis of coronary artery of [place] heart without angina pectoris Status: Chronic (6) Bilateral pulmonary embolism Status: Chronic (7) DVT (deep venous thrombosis) Status: Chronic (8) Stage III chronic kidney disease Status: Chronic (9) Addisons disease Status: Chronic History of Present Illness Date of Admission: 05/06/18 Chief Complaint: Cough, fever, diarrhea, weakness. The patient is a 77 year old F who presents to the emergency room due to cough, fever, diarrhea and fatigue. Patient states this is been ongoing for approximately 7 days. Patient presented to urgent care on 05/04/2018 and was prescribed Levaquin for bronchitis. She notes diarrhea developed following taking antibiotic. Denies abdominal pain. Denies blood in stool. Her respiratory symptoms have not improved on antibiotic. Patient noted to be tachycardiac in ER. She has seen Dr. Uriostegui in the past for irregular heartbeat. She reports she is on metoprolol which she did not take this morning. She denies palpitations, chest pain. She has a past medical history of chronic kidney disease stage III, history of DVT in 2012 and PE in September 2017, Collin's disease, hypertension, hyperlipidemia, history of bowel perforation, iron deficiency anemia, chronic venous insufficiency. Patient has right lower extremity wound which she states she has been placing Adaptic. She states she previously had wound on the left lower extremity which is now healed. She reports chronic swelling of bilateral lower extremities. Past Medical History Past Medical History (Chronic Problems): Chronic Problems (Last Reviewed 05/04/18 @ 12:51 by Desi Garcia) Non-rheumatic aortic stenosis (Chronic) Hypertensive nephropathy (Chronic) Hyperlipidemia (Chronic) Atherosclerosis of coronary artery of [place] heart without angina pectoris (Chronic) Bilateral pulmonary embolism (Chronic) DVT (deep venous thrombosis) (Chronic) Stage III chronic kidney disease (Chronic) Addisons disease (Chronic) Medical History: Medical History (Last Reviewed 05/04/18 @ 12:51 by Desi Garcia) Non-rheumatic aortic stenosis (Chronic) I35.0 Hypokalemia (Chronic) E87.6 High blood pressure with chronic kidney disease (Chronic) I12.9 Hypertensive nephropathy (Chronic) I12.9 Hyperlipidemia (Chronic) E78.5 Atherosclerosis of coronary artery of [place] heart without angina pectoris (Chronic) I25.10 Bilateral pulmonary embolism (Chronic) I26.99 DVT (deep venous thrombosis) (Chronic) I82.409 Stage III chronic kidney disease (Chronic) N18.3 Addisons disease (Chronic) E27.1 Hematoma of left lower extremity S80.12XA Allergic rhinitis J30.9 Anxiety F41.9 Chronic anemia D64.9 Chronic back pain M54.9, G89.29 GERD (gastroesophageal reflux disease) K21.9 Gout M10.9 Hypothyroidism E03.9 Obesity E66.9 Osteoarthritis M19.90 Polymyalgia rheumatica M35.3 GI bleed K92.2 Intra-abdominal abscess K65.1 Perforated bowel K63.1 Allergies Iodine and Iodide Containing Produc Allergy (Verified 05/06/18 12:46) Unknown amoxicillin trihydrate [From Augmentin] Adverse Reaction (Verified 05/06/18 12:46) Upset Stomach diclofenac sodium [From Arthrotec] Adverse Reaction (Verified 05/06/18 12:46) Upset Stomach doxycycline Adverse Reaction (Verified 05/06/18 12:46) Upset Stomach erythromycin base Adverse Reaction (Verified 05/06/18 12:46) Upset Stomach etodolac [From Lodine] Adverse Reaction (Verified 05/06/18 12:46) Upset Stomach flurbiprofen [From Ansaid] Adverse Reaction (Verified 05/06/18 12:46) Upset Stomach misoprostol [From Arthrotec] Adverse Reaction (Verified 05/06/18 12:46) Upset Stomach NSAIDS (Non-Steroidal Anti-Inflamma Adverse Reaction (Verified 05/06/18 12:46) Other potassium clavulanate [From Augmentin] Adverse Reaction (Verified 05/06/18 12:46) Upset Stomach rofecoxib [From Vioxx] Adverse Reaction (Verified 05/06/18 12:46) Upset Stomach Home Medications: Ambulatory Orders Medication Instructions Recorded Surgical History: Surgical History (Last Reviewed 05/06/18 @ 17:07 by KATHY Beltran) History of back surgery Z98.890 History of cataract surgery Z98.49 History of repair of hiatal hernia Z98.890, Z87.19 History of right hip replacement Z96.641 Surgical History: total knee arthroplasty, - - Back surgery. 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 Lives: Alone Smoking Status: Never smoker Alcohol: None Drugs: None - *Family History Maternal Family History: Family History (Last Reviewed 05/06/18 @ 17:08 by KATHY Beltran) Father Heart disease Mother CVA (cerebral vascular accident) Other CAD (coronary artery disease) Myocardial infarction Paternal Family History: Family History (Last Reviewed 05/06/18 @ 17:08 by KATHY Beltran) Father Heart disease Mother CVA (cerebral vascular accident) Other CAD (coronary artery disease) Myocardial infarction Review of Systems Constitutional: Reports: Chills, Fever, Malaise HEENT: Denies: Head Aches, Sinus Congestion, Sinus Drainage Cardiovascular: Reports: Edema - Chronic BLLE. Denies: Chest Pain, Palpitations, Syncope Respiratory: Reports: Cough, Shortness of Breath, Sputum production Gastrointestinal: Reports: Diarrhea. Denies: Abdominal Pain, Nausea, Vomiting Genitourinary: Denies: Dysuria Musculoskeletal: Denies: Joint Pain, Joint Tenderness Skin: Reports: Wounds - R lateral calf, - - Chronic skin changes BLLE Neurological: Denies: Numbness, Tingling, Focal weakness Psychiatric: Denies: Anxiety, Depression, Homicidal Ideations, Suicidal Ideations Hematologic/ Lymphatic: Denies: Easy Bruising, Easy Bleeding VTE Information - Inpt Only VTE Present on Admission: No VTE Mechan Device Prophylaxis: None VTE Pharm Prophylaxis ordered?: Yes - Physical Exam General: Alert, Oriented x3, Cooperative HEENT: Atraumatic, PERRLA, EOMI, Normocephalic Oral: Dry Mucosa Neck: Supple, No JVD, Negative Carotid Bruits Lungs: Diminished, Rhonchi Cardiovascular: Regular Rhythm, Normal S1, Normal S2, Murmur, Tachycardic Abdomen: Bowel Sounds Present, Soft, Non Tender, Non-Distended Extremities: No clubbing, No cyanosis, Capillary Refill Less than 3 Seconds, Edema - BLLE Skin: - - Right lateral calf open area, not infected appearing. No drainage. Chronic bilateral lower extremity stasis dermatitis. Musculoskeletal: No Tenderness to Palpation of Joints or Extremities Neurological: Cranial nerves II-XII grossly intact, Neuro grossly intact Psych/Mental Status: Normal Affect, Appropriate Vital Signs Temp Pulse Resp BP Pulse Ox 98.5 F 141 H 27 H 146/88 H 100 05/06/18 17:04 05/06/18 17:04 05/06/18 17:04 05/06/18 17:04 05/06/18 17:04 Oxygen Flow Rate (L/min) 2 Oxygen Delivery Method Nasal Cannula Weight: 158 lb Body Mass Index (BMI) 30.8 Microbiology Past 72 Hours 05/06/18 14:35 Influenza Types A,B Direct FA (CANDE) - Final Mucosa - Nose Laboratory Tests Past 24 Hrs WBC RBC Assessment/Plan All Active Problems (Last Reviewed 05/04/18 @ 12:51 by Desi Garcia) Bronchitis (Acute) 1. Acute bronchitis, failed outpatient therapy with levaquin- chest x-ray on admission without acute process. Patient received Solu-Cortef and breathing treatments in ER. Negative for influenza. Suspect viral URI. Albuterol and DuoNeb aerosols. Prednisone 20 mg twice daily. 2. Diarrhea-stool for C. difficile, enteric bacteriology pending. Lactoferrin positive. 3. Sinus tachycardia-unclear etiology. Increase home metoprolol regimen to 25 mg twice daily. Continue to monitor. Patient had echo February 2018 which showed an EF of 55%, stage I diastolic dysfunction, mild aortic stenosis. EKG showed sinus tachycardia. 4. Chronic iron deficiency anemia-stool positive for occult blood. Hemoglobin stable. Baseline hemoglobin 8-10. Hemoglobin on admission 10.6. Trend CBC. Prior iron studies with iron deficiency. Recommend iron supplementation. 5. Chronic venous insufficiency, with right lower venous stasis dermatitis wound right lateral calf, present on admission-cleanse with normal saline daily. Apply Adaptic to right lower extremity. Darcy wraps bilateral lower extremities. Wound does not appear infected, no drainage noted. 6. Chronic kidney disease stage III-at baseline. 7. 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 9. Hypertension-stable, home metoprolol regimen increased to 25 mg twice daily. 10. Hyperlipidemia-not on statin. 11. History of bowel perforation/intra-abdominal abscess/history of GI bleed-continue PPI DVT prophylaxis- Eliquis. This patient was seen by KATHY Beltran under the supervision of Dr. Adams. 05/06/18 174 <Electronically signed by Jodi CORNELIUSC> Date Jodi CHAVEZ 05/06/182009<Electronically signed by Akira Adams DO> Cosigner Signature: Date (if applicable) Akira Adams DO CC: KATHY Holden; Jared Romero MD; Akira Adams DO Signed Observed: 05/06/2018 Status: F Source: [place]NMAR[facility] RESPIRATORY PANEL 8:10 PM [facility] MOLECULAR REPOSITORY RP PANEL Normal Reference Range = Not Detected Copy of report sent to Infection Control Printer [id number] 05/06/18 2633 JACK. RESULTS CALLED TO GAURNAG VAZQUEZ 05/06/18 4535 Jodi Jacobo. REPORT READ BACK BY SAME. ADENOVIRUS Not Detected HUMAN METAPHNEUMO Not Detected INFLUENZA A Not Detected INFLUENZA A (SUBTYPE H1) Not Detected INFLUENZA A (SUBTYPE H3) Not Detected INFLUENZA B Not Detected PARAINFLUENZA 1 Not Detected PARAINFLUENZA 2 Not Detected PARAINFLUENZA 3 Not Detected PARAINFLUENZA 4 Not Detected RHINOVIRUS Not Detected RSV A Positive for RSV A by NAAT technology RSV B Not Detected NAAT METHOD Testing was performed using nucleic acid amplification ORGANISM 1: RSV A Performed By: #### M100.638 #### [facility] [address] [place] [place], [address] STOOL Observed: 05/06/2018 Status: F Source: [place] LACTOFERRIN/WBC 4:42 PM [facility] REPOSITORY Order Date: 05/06/18 Stool Lacto/WBC Normal Reference Range = Negative Fecal WBC Lactoferrin Positive: Fecal WBC Lactoferrin present Performed By: #### M100.0605 #### [facility] [address] [facility] [facility] [address] Observed: 05/06/2018 Status: F Source: [place] STOOL OCCULT BLOOD 4:42 PM [facility] IFOB REPOSITORY Order Date: 05/06/18 STOB iFOB Occult Blood Positive ORGANISM 1: OCCULT BLOOD POSITIVE Performed By: #### M100.7900 #### [facility] [address] [facility] [place], [address] Observed: 05/06/2018 Status: C Source: [place] CDIFF (MOLECULAR) 4:42 PM [facility] REPOSITORY Is the patient receiving laxatives? N New/unexplained onset of 3 or more stools in past 24 hrs? Y Order Date: 05/06/18 Cdiff-Molecular Normal Reference Range = Negative RESULTS CALLED TO GAURANG JAMES 05/06/189 Jodi Jacobo. REPORT READ BACK BY SAME. Copy of report sent to Infection Control Printer [id number] 05/06/18 8760 JACK. C. Diff DNA Positive-Toxigenic C. Difficile DNA Detected NAAT METHOD Testing was performed using nucleic acid amplification ORGANISM 1: Toxigenic C. difficile DNA Performed By: #### M100.6796 #### [facility] [address] [facility] [facility] [address] Observed: 05/06/2018 Status: F Source: [place] ENTERIC PATHOGEN 4:42 PM [facility] PANEL STOOL REPOSITORY Order Date: 05/06/18 EP PANEL STOOL Normal Reference Range = Not Detected Not detected for Campylobacter group, Salmonella species, Shigella species, Vibrio Group, Yersinia enterocolitica, EHEC (Shiga Toxin 1, Shiga Toxin 2), Norovirus Gl/Gll, and Rotavirus A. Other common stool pathogens are not detected on this panel include: Aeromonas/Plesiomonas or parasites. Order testing for these organisms separately if suspected. This is an amplified DNA test which makes it both specific and sensitive. CAMPYLOBACTER Not Detected Salmonella Not Detected Shigella sp. Not Detected Shiga Toxin Not Detected Yersinia Not Detected VIBRIO Not Detected Norovirus Not Detected Rotavirus Not Detected Performed By: #### M100.637 #### [facility] [address] [place], [address] URINALYSIS, COMPLETE Collected: 05/06/2018 Status: F Source: ANNMARIE 4:23 PM [facility] REPOSITORY Order Comment: How was Urine Obtained? REVENUE CYCLE SPECIALIST TO SPECIFY TYPE CODE TESTS RESULT OUT OF RANGE REFERENCE UNITS LAB L400.3000 Yellow COLOR Normal Yellow LAB L400.3050 Clear Normal CLARITY Cloudy LAB L400.3200 Normal mg/dl Normal GLUCOSE, UR Normal LAB L400.3300 Negative mg/dL Normal BILIRUBIN URINE Negative LAB L400.3400 Negative mg/dl Normal KETONE UR Negative LAB L400.3465 1.002-1.030 Normal SP.GR. DIPSTX 1.015 LAB L400.3550 5.0 - 8.0 pH UR Normal 8.0 LAB L400.3600 Negative mg/dl PROT Normal DIPSTX Negative LAB L400.3700 Normal mg/dl Normal UROBILI Normal LAB L400.3750 Negative Normal NITRITE UR Negative LAB L400.3780 Negative /ul Normal OCCULT BLOOD-UR Negative LAB L400.3800 Negative /ul High LEUK 25 ESTERASE LAB L400.4050 0-5 /hpf WBC 0 Normal SEEN LAB L400.4100 0-5 /hpf 0 Normal RBC-UA SEEN LAB L400.4150 5-10 /hpf SQUAM Normal EPI 0-5 SEEN LAB L400.4300 None Seen /hpf 1+ Normal BACTERIA LAB L400.4350 <or=2+ /hpf 0 Normal MUCUS, URINE SEEN LAB L400.4900 2+ Normal AMORPHOUS Performed By: #### L400.0001 #### [facility] [address] [place], [place], [address] Observed: 05/06/2018 Status: F Source: [place] CULTURE, URINE 4:23 PM [facility] REPOSITORY Urine Culture ORGANISM 1: Staphylococcus epidermidis Christiana Count >100,000 Staphylococcus epidermidis: REACTION Benzylpenicillin NF >=0.5 R Cefoxitin *NF + Inducable Clindamycin [place] + Gentamicin $ <=0.5 S Levofloxacin $ >=8 R Linezolid $$$$ 1 S Nitrofurantoin $ <=16 S Oxacillin NF >=4 R Rifampin $$ <=0.5 S Tetracycline NF 2 S Vancomycin $ 1 S (NF) indicates non-formulary drug at [facility]. Approval by Infectious Disease Specialist required before non-formulary drugs may be ordered and/or dispensed. * CLSI guidelines does not recommend testing of cephalosporins. This interpretation is deduced from Beta-lactam/penicillin results. Performed By: #### M100.0650 #### [facility] [address] [place] [address]. [place], [place], [id number] Observed: 05/06/2018 Status: F Source: [place] INFLUENZA A+B (RAPID 2:35 PM [facility] GARIMA) REPOSITORY FLU A/B Rapid Negative test results should be confirmed with FLU PANEL MOLECULAR if indicated. Influenza Ag, Direct Presumptive NEGATIVE for Influenza A/B Antigen (See Note) Performed By: #### M101.0101 #### [facility] [facility] [place], [place], [id number] CBC W/DIFF, AUTOMATED Collected: 05/06/2018 Status: F Source: ALANSON 2:19 PM [facility] REPOSITORY TYPE CODE TESTS RESULT OUT OF RANGE REFERENCE UNITS LAB L100.1000 4.4-11.0 K/mm3 Normal WBC 7.2 LAB L100.1200 4.2-5.4 M/mm3 Low RBC 3.52 LAB L100.1300 12.0-15.0 g/dl Low HGB 10.6 LAB L100.1400 37-47 % Low HCT 35.6 LAB L100.1500 81-99 fL High MCV 101.1 LAB L100.1600 27.0-32.0 pg Normal MCH 30.1 LAB L100.1700 32-36 g/gl Low MCHC 29.8 LAB L100.1810 11.6-14.6 % High RDW CV 23.0 LAB L100.1820 35.1-43.9 fl High RDW SD 85.2 LAB L100.1900 150-450 K/mm3 Normal PLT 267 LAB L100.2000 6.2-12.0 fl Normal MPV 8.6 LAB L100.2100 47-70 % High NEUT% 89.4 LAB L100.2200 19-41 % Low LY% 5.9 LAB L100.2300 0-10 % Normal MONO% 4.3 LAB L100.2400 0-5 % Normal EO% 0.0 LAB L100.2500 0-1 % Normal BASO% 0.3 LAB L100.2550 0.0-0.9 % Normal IM GRAN % 0.100 Result Comment: IG% - Immature Granulocytes (promyelocytes, myelocytes and metamyelocytes) > 1% indicates that a LEFT SHIFT is Present. LAB L100.2620 2.0-7.7 X10 3/uL Normal Absolute Neut 6.5 LAB L100.2720 0.83-4.51 X10 3/ul Low Absolute Lymph 0.43 LAB L100.4500 SMEAR Normal COMMENT Result Comment: ANISOCYTOSIS 1+ Performed By: #### L100.0100 #### [facility] [address] [place], [place], [id number] PROTHROMBIN TIME W/INR Collected: 05/06/2018 Status: F Source: AL[place] 2:19 PM [facility] REPOSITORY TYPE CODE TESTS RESULT OUT OF RANGE REFERENCE UNITS LAB L300.4150 11.7-14.9 SECONDS High PROTIME 15.1 LAB L300.4200 Normal INR 1.2 Performed By: #### L300.3900, L300.4310 #### [facility] [address] [place], [address] PARTIAL THROMBOPLAST Collected: 05/06/2018 Status: F Source: ANNMARIE TIME 2:19 PM [facility] REPOSITORY TYPE CODE TESTS RESULT OUT OF RANGE REFERENCE UNITS LAB L300.4310 24.1-36.2 Seconds Normal PTT 30.0 Performed By: #### L300.3900, L300.4310 #### [facility] [address] [place], [address] COMPREHENSIVE METABOLIC Collected: 05/06/2018 Status: F Source: ANNMARIE PROFIL 2:19 PM [facility] REPOSITORY TYPE CODE TESTS RESULT OUT OF RANGE REFERENCE UNITS LAB L501.0100 74-106 mg/dL Normal GLU 102 Result Comment: Fasting Glucose result from 100 to 125 mg/dL suggests IMPAIRED HOMEOSTASIS per A.D.A. criteria. Please note revised GLUCOSE reference range effective 2017. LAB L501.1000 7-18 mg/dL Normal BUN 17 LAB L501.1100 0.55-1.02 mg/dL High CREAT,SERUM 1.48 Result Comment: The validity of the calculated GFR AND GFRAA in patients over 70 years has not been determined. Clinical correlation is essential. LAB L501.1110 >60 mL/min Low EST GFR 36 Result Comment: Non- GFR Calc LAB L501.1115 >60 mL/min Low EST GFR - AA 44 Result Comment: GFR Calc LAB L501.1255 ml/min Normal Estimated CRCL 22.50 LAB L501.1300 10-20 RATIO Normal BUN/CRE 11.5 LAB L501.1500 6.4-8. g/dL Low 2 T PROT 6.2 LAB L501.1800 3.2-5. g/dL Low 0 ALB 2.5 LAB L501.1950 2.2-4. g/dL Normal 2 GLOB 3.7 LAB L501.2000 0.9-2. RATIO Low 4 A/G 0.7 LAB L501.2200 8.5-10 mg/dL Low .1 CA 8.4 LAB L501.4100 15-37 U/L Low AST 10 LAB L501.4305 45-117 U/L Normal ALK P 73 LAB L501.4405 13-56 U/L Normal ALT 18 LAB L501.4600 0.20-1 mg/dL Normal .00 T BILI 0.30 LAB L501.5300 136-14 mmol/L Normal 5 NA 143 LAB L501.5600 3.5-5. mmol/L Normal 1 K 3.8 LAB L501.5900 98-107 mmol/L Normal CL 106 LAB L501.6100 21.0-3 mmol/L Normal 2.0 CO2 30.0 LAB L501.6200 5-15 Normal GAP 7 Performed By: #### L500.4050, L501.4010 #### [facility] [address] [place], [place], [address] TROPONIN-I Collected: 05/06/2018 Status: F Source: [place] 2:19 PM [facility] REPOSITORY TYPE CODE TESTS RESULT OUT OF RANGE REFERENCE UNITS LAB L501.4010 <0.045 ng/mL Normal < 0.015 TROPONIN-I Result Comment: TROPONIN-I EXPECTED VALUES <0.045 Negative 0.045 - 0.590 Consistent with Cardiac Damage > OR = 0.600 Critical Value Not every elevated troponin is indicative of MS. These values should be used with clinical judgement in examining the patient's clinical picture for diagnosis. To establish a diagnosis of MS versus myocardial injury, there must be a demonstrated rise and/or fall in the troponin values, in addition to ischemic symptoms, EKG changes, new regional wall motion abnormality, and/or angiographical evidence. PLEASE NOTE: REFERENCE RANGES EDITED 17 Performed By: #### L500.4050, L501.4010 #### [facility] [address] [place], [place], [address] LACTIC ACID Collected: 05/06/2018 Status: F Source: [place] 2:19 PM [facility] REPOSITORY Order Comment: Yes/No query for Sepsis Lactate Rule Y TYPE CODE TESTS RESULT OUT OF RANGE REFERENCE UNITS LAB L503.6005 0.4-2.0 mmol/L Normal LACTIC ACID 1.5 Performed By: #### L503.6005 #### [facility] [address] [place], [address] Observed: 05/06/2018 Status: F Source: [place] CULTURE, BLOOD (WB) 2:19 PM [facility] REPOSITORY No growth in 5 days. Performed By: #### M200.1000 #### [facility] [address] [place], [place], [address] Observed: 05/06/2018 Status: F Source: ANNMARIE CULTURE, BLOOD (WB) 2:19 PM [facility] REPOSITORY BC No growth in 5 days. Performed By: #### M200.1000 #### [facility] [address] [place], [place], [address] CHEST PA AND LATERAL Observed: 05/06/2018 Status: F Source: ANNMARIE 1:52 PM [facility] REPOSITORY [facility] [address] [place] [address] Chest PA and Lateral MR#: [id number] Acct: [id number] Name: DIA MCCULLOUGH Rep #: [id number] : 1940 F 77 From: Misael Jiménez MD PCP: Jared Romero MD Status: REG ER Study: Chest PA and Lateral Date of Exam: 05/06/18 Exam# [id number] Ordering Dr: Bj Chan DO STUDY: X-RAY CHEST REASON FOR EXAM: Female, 77 years old. Cough, fever, flulike symptoms TECHNIQUE: PA and lateral views of the chest. COMPARISON: 03/02/2018 FINDINGS: EKG leads project over the chest. Coarsened interstitial lung markings without focal infiltrate or pleural effusion. There is no demonstrated pleural abnormality. Normal size heart. Normal mediastinum and kina. Normal visualized pulmonary arteries. There is atherosclerotic calcification of the aortic arch with tortuosity. There is demineralization of the osseous structures. Fusion hardware of the lumbar spine partially visualized. There are degenerative changes of the thoracolumbar spine. There is no demonstrated abnormality of the visualized soft tissue structures of the upper abdomen. RAD/Chest PA and Lateral IMPRESSION: No airspace consolidation or pleural effusion. 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 URGENT CARE VISIT Observed: 05/04/2018 Status: F Source: [place] REPORT 1:21 PM [facility] REPOSITORY [facility] [address] [place] [address] [address] [place] [address] OFFICE VISIT Date of Service: 05/04/18 MR#: [id number] Acct: [id number] Name: DIA MCCULLOUGH Rep #: [id number] : 1940 Provider: Obey DUNCAN Age/Sex: 77/F Location: [facility] Status: Signed Intake Vital Signs05/04/18 Body Mass Index (BMI) 30.8 05/04/18 Height 5 ft 05/04/18 Weight: 158 lb 05/04/18 Body Mass Index (BMI) 30.8 05/04/18 Blood Pressure 114/78 05/04/18 Respiratory Rate 14 Intake Visit Reasons: THINKS SHE HAS THE FLU Chief Complaint: Productive cough 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 Accompanied by: SELF Is patient in pain?: No Allergies Iodine and Iodide Containing Produc Allergy (Verified 05/04/18 12:51) Unknown amoxicillin trihydrate [From Augmentin] Adverse Reaction (Verified 05/04/18 12:51) Upset Stomach diclofenac sodium [From Arthrotec] Adverse Reaction (Verified 05/04/18 12:51) Upset Stomach doxycycline Adverse Reaction (Verified 05/04/18 12:51) Upset Stomach erythromycin base Adverse Reaction (Verified 05/04/18 12:51) Upset Stomach etodolac [From Lodine] Adverse Reaction (Verified 05/04/18 12:51) Upset Stomach flurbiprofen [From Ansaid] Adverse Reaction (Verified 05/04/18 12:51) Upset Stomach misoprostol [From Arthrotec] Adverse Reaction (Verified 05/04/18 12:51) Upset Stomach NSAIDS (Non-Steroidal Anti-Inflamma Adverse Reaction (Verified 05/04/18 12:51) Other potassium clavulanate [From Augmentin] Adverse Reaction (Verified 05/04/18 12:51) Upset Stomach rofecoxib [From Vioxx] Adverse Reaction (Verified 05/04/18 12:51) Upset Stomach Medications Prednisone 2.5 mg PO QHS 09/18/17 [History Confirmed 05/04/18] Acetaminophen [Tylenol] 1,000 mg PO Q8H PRN PRN tab 10/28/17 [Rx Confirmed 05/04/18] apixaban 5 mg tablet 2.5 mg PO BID tab 02/14/18 [History Confirmed 05/04/18] metoprolol tartrate 25 mg tablet 12.5 mg PO BID tab 02/14/18 [History Confirmed 05/04/18] potassium chloride ER 10 mEq tablet,extended release 10 meq PO DAILY 02/14/18 [History Confirmed 05/04/18] ciprofloxacin 500 mg tablet 500 mg PO BID 02/15/18 [History Confirmed 05/04/18] B12/Levomefolate Calcium/B-6 [Folbic Rf Tablet] 1 ea PO DAILY 04/07/18 [History Confirmed 05/04/18] Omeprazole [Prilosec] 10 mg PO DAILY 04/07/18 [History Confirmed 05/04/18] Prednisone 10 mg PO BREAKFAST 04/07/18 [History Confirmed 05/04/18] traMADol [Ultram (G)] 25 mg PO BID 04/07/18 [History Confirmed 05/04/18] levofloxacin 500 mg tablet 500 mg PO DAILY #7 tab 05/04/18 [Rx Confirmed 05/04/18] [facility] [facility] Medical History Non-rheumatic aortic stenosis (Chronic) Hypokalemia (Chronic) High blood pressure with chronic kidney disease (Chronic) Hypertensive nephropathy (Chronic) Hyperlipidemia (Chronic) Atherosclerosis of coronary artery of [place] heart without angina pectoris (Chronic) Bilateral pulmonary [...] Status: Never smoker HPI HPI Chief Complaint: Productive cough Details: DIA MCCULLOUGH, is a 77 F who presents to the office today for initial evaluation 4-day history of productive purulent cough and congestion and chills. No complaints of sweats, fatigue, chest pain/shortness of breath. Patient is a non- smoker noting no other members in household with similar complaints. She has taken no tksg-pld-ldfopsc products to assist with her symptom. She notes no other associated symptoms and no other alleviating or aggravating factors. ROS Const Constitutional: No other (ROS negative x10 other than as noted above) Exam Const General: cooperative, healthy appearing, no acute distress, uncomfortable Nutritional Appearance: average body habitus Orientation: alert, awake, oriented x3 HENMT Head: normal to inspection Ears: hearing grossly normal bilaterally, external ears normal, TM's normal bilaterally, EAC's normal Nose: external nose normal, nares normal, septum normal, no nasal discharge Face and sinus: normal facial exam, face symmetric, sinuses nontender Mouth: oral mucosae normal, lip normal, tongue normal Teeth and gingiva: gingiva normal, dentition normal Throat: uvula midline, tonsils normal, posterior oropharynx normal, no postnasal drainage Eyes General: appearance normal, both eyes and all related structures Neck Neck: normal visual inspection, full ROM, no meningeal signs, supple, lymphadenopathy (Bilateral anterior cervical node swelling and tender to palpation) Neck mass: No Thyroid: thyroid normal Chest Chest palpation AND inspection: normal inspection of the chest Resp Effort AND Inspection: normal respiratory effort, able to speak in complete sentences, symmetric chest movement, cough Quality of cough: wet (Nonproductive in office today) Auscultation: Bilateral: Clear to Auscultation Cardio Palpation: normal PMI Rate: regular rate Rhythm: regular rhythm Heart Sounds: S1 normal, S2 normal Pulses: radial pulses present GI Inspection: normal to inspection Palpation: soft, no hepatosplenomegaly Skin General: no rashes or lesions noted Neuro General: alert, awake, oriented x3, gait normal Cognition: normal cognition Speech: speech normal Gait: normal gait Motor: muscle tone normal throughout Sensory Exam: no sensory deficits noted Psych Appearance: grossly normal Mental Status: mental status grossly normal Mood: congruent mood Affect: normal affect Speech and Movement: speech and movement normal Attitude: cooperative Thought Process: normal Thought Content: normal Judgment: judgment good Assessment AND Plan Plan Levofloxacin as prescribed today. Clear fluids, rest, Tylenol as needed for symptomatic relief. Follow-up with PCP in 3-5 days should symptoms not improve, sooner should symptoms worsen or any other concerns develop. Patient states acknowledging understanding all the above. This note was generated with 20:20 Mobileation software. It may contain incorrect words, spelling, and punctuation that were not noted in checking the note before signing. Medications New: Coding Level of Care Code Off vis,est,level 3 05/04/18 1321 <Electronically signed by Obey DUNCAN> Date Obey DUNCAN Cosigner Signature: Date (if applicable) CC: BASIC METABOLIC Collected: 03/28/2018 Status: F Source: [place] PROFILE ([facility]) 2:31 PM [facility] REPOSITORY TYPE CODE TESTS RESULT OUT OF [...] #### [facility] [address] [facility] [place], [place], [id number] IRON BINDING Collected: 03/28/2018 Status: F Source: [place] CAPACITY,TOTAL 2:31 PM [facility] REPOSITORY TYPE CODE TESTS RESULT OUT OF RANGE REFERENCE UNITS LAB L503.6075 250-450 ug/dL Normal TIBC 311 Performed By: #### L500.2500, L503.6075, L503.6150, L503.6550, L100.0100 #### [facility] [address] [place], [address] IRON Collected: 03/28/2018 Status: F Source: [place] 2:31 PM [facility] REPOSITORY TYPE CODE TESTS RESULT OUT OF RANGE REFERENCE UNITS LAB L503.6150 50-170 ug/dL Low IRON 30 Performed By: #### L500.2500, L503.6075, L503.6150, L503.6550, L100.0100 #### [facility] [address] [place], [address] FERRITIN Collected: 03/28/2018 Status: F Source: [place] 2:31 PM [facility] REPOSITORY TYPE CODE TESTS RESULT OUT OF RANGE REFERENCE UNITS LAB L503.6550 8-252 ng/mL Normal FERRITIN 32 Performed By: #### L500.2500, L503.6075, L503.6150, L503.6550, L100.0100 #### [facility] [address] [place], [address] CBC W/DIFF, AUTOMATED Collected: 03/28/2018 Status: C Source: [place] 2:31 PM [facility] REPOSITORY Order Comment: PLEASE DO A SMEAR [...] 03/31/18 1000 PATH REV previously reported as: Laly holm Performed By: #### L500.2500, L503.6075, L503.6150, L503.6550, L100.0100 #### [facility] [address] [place], [address] RENAL PROFILE Collected: 03/15/2018 Status: F Source: [place] 1:45 PM [facility] REPOSITORY TYPE CODE TESTS RESULT OUT OF [...] #### [facility] [address] [place], [place], [id number] CBC-COMPLETE BLOOD CNT Collected: 03/15/2018 Status: F Source: [place] NO DIFF 1:45 PM [facility] REPOSITORY TYPE CODE TESTS RESULT OUT OF [...] #### [facility] [address] [place], [place], [id number] PROTEIN+CREATININE Collected: Status: F Source: [place] RATIO,URINE 03/15/2018 1:45 PM [facility] REPOSITORY TYPE CODE TESTS RESULT OUT OF RANGE REFERENCE UNITS LAB L501.1200 NO RANGE EST. mg/dL Normal UR CREAT 129.00 LAB L501.1930 <11.9 mg/dL High 18.4 PROTEIN,UR.R AN. LAB L501.1940 0-200 mg/g CRE Normal PROT:CRE 143 RATIO Performed By: #### L501.0900 #### [facility] [address] [place], [address] VITAMIN D,25 HYDROXY Collected: 03/15/2018 Status: F Source: [place] 1:45 PM [facility] REPOSITORY TYPE CODE TESTS RESULT OUT OF [...] #### [facility] [address] [place], [address] PTHIN Collected: 03/15/2018 Status: F Source: [place] 1:45 PM [facility] REPOSITORY TYPE CODE TESTS RESULT OUT OF RANGE REFERENCE UNITS LAB L509.1000 18.4-80.1 pg/mL Normal PTHIN 60.2 Performed By: #### L509.1000 #### [facility] [address] [place], [address] CNCO Observed: 03/03/2018 Status: COMPLETED Source: [place] 12:00 AM CLINIC OTHER CAMPUS REPOSITORY Letter Text Kendrick Mark MD Cardiac, Thoracic AND Wet Process [facility] [place], [place] [address] [email or web address] Dia Mccullough Page 1 of March 03, 2018 Dia Mccullough [address] [facility] [address] [place] [address] 1940 Dear Dia Mccullough, We missed seeing you for your scheduled appointment with Dr. Mark on 02/24/18. Our goal is to offer the best possible care to our patients, so we are concerned when you are unable to keep a scheduled appointment. Please call us at [phone] so that we can reschedule your appointment for a day and time that will work for you. If you find it difficult to keep your appointment, please notify our office at least 24 hours in advance so that we may reschedule your appointment. We are glad that you have chosen [facility] for your cardiovascular needs and hope to continue serving you in the future. Sincerely, Kendrick Mark MD (Signed electronically to expedite mailing) THORACIC SPINE 2 Observed: 03/02/2018 Status: F Source: [place] VIEWS 12:21 PM [facility]IT[facility] Imaging Services [address] [place] [address] Thoracic Spine 2 Views MR#: [id number] Acct: [id number] Name: DIA MCCULLOUGH Rep #: [id number] : 1940 F 77 From: Mike Heard PCP: Jared Romero MD Status: REG CLI Study: Thoracic Spine 2 Views Date of Exam: 03/02/18 Exam# [id number] Ordering Dr: Jared Romero MD STUDY: X-RAY [...] Service support , CC: Jared Romero MD Turntable Worker: Signed CHEST PA AND LATERAL Observed: 03/02/2018 Status: F Source: [place] 12:21 PM [facility] REPOSITORY [facility] Imaging Services [address] [place] [address] Chest PA and Lateral MR#: [id number] Acct: [id number] Name: DIA MCCULLOUGH Rep #: [id number] : 1940 F 77 From: Derrell Burciaga DO PCP: Jared Romero MD Status: REG CLI Study: Chest PA and Lateral Date of Exam: 03/02/18 Exam# [id number] Ordering Dr: Jared Romero MD STUDY: X-RAY [...] Service support , CC: Jared Romero MD Turntable Worker: Signed L/S SPINE MIN 4 Observed: 03/02/2018 Status: F Source: [place] VIEWS 12:21 PM [facility] REPOSITORY [facility] Imaging Services [address] [place] [address] L/S Spine Min 4 Views MR#: [id number] Acct: [id number] Name: DIA MCCULLOUGH Rep #: [id number] : 1940 F 77 From: Mike Heard PCP: Jared Romero MD Status: REG CLI Study: L/S Spine Min 4 Views Date of Exam: 03/02/18 Exam# [id number] Ordering Dr: Jared Romero MD STUDY: X-RAY [...] Service support , CC: Jared Romero MD Turntable Worker: Signed ECHOCARDIOGRAM COMPLETE Observed: 02/23/2018 Status: F Source: [place] 7:22 AM [facility] REPOSITORY [facility] Cardiovascular Services [address] [place] [address] Echo Complete 02/22/18 1406 MR#: [id number] Acct: [id number] Name: DIA MCCULLOUGH Rep #: [id number] : 1940 77 From: Jackson Uriostegui MD Attending Dr: Jackson Uriostegui MD Status: REG CLI Ordering Dr: Jackson Uriostegui MD Date: 02/22/18 Location: [facility] Sex: F C Admitted: Procedure This was [...] Romero Performed By: Roxana Mckeon, RDCS, RVT 02/23/18721 Date Jackson Uriostegui MD CC: Jackson Uriostegui MD; Jared Romero MD Date Dictated: 02/22/18 1406 Date Transcribed: 02/23/18721 Turntable Worker: Signed URGENT CARE VISIT Observed: 02/16/2018 Status: F Source: [place] REPORT 6:[address] [facility] Now [address] [address] OFFICE VISIT Date of Service: 02/16/18 MR#: [id number] Acct: [id number] Name: DIA MCCULLOUGH Rep #: [id number] : 1940 Provider: Obey DUNCAN Age/Sex: 77/F Location: [facility] Status: Signed Intake Vital Signs02/16/18 Height 5 [...] mg PO BID 02/15/18 [History Confirmed 02/16/18] [facility] Medical History Hypokalemia (Chronic) High blood pressure with chronic kidney disease (Chronic) Hypertensive nephropathy (Chronic) Hyperlipidemia (Chronic) Atherosclerosis of coronary artery of [place] heart without angina pectoris (Chronic) Bilateral pulmonary [...] incident occurred patient put ABD dressing and Darcy wrap to the same then reported to the now clinic approximately 2 hours later as she noticed the drainage would not stop. She notes no loss of sensation strength or function distal to the site. She notes no other complaints at this time. Incidentally, patient notes she has a follow-up with sales executive for a or bilateral lower extremity ultrasounds [...] over open sites then dressing was and Darcy wrap applied thereafter. Patient noted tolerating procedure [...] the above. This note was generated with [employer]Walk dictation software. It may contain incorrect words, spelling, and punctuation that were not noted in checking the note before signing. Coding Level of Care Code Off vis,est,level 3 Diagnoses Laceration of right lower extremity S81.811A 02/16/18 1800 <Electronically signed by Obey DUNCAN> Date Obey DUNCAN Cosigner Signature: Date (if applicable) CC: CARDIOLOGY VISIT Observed: 02/15/2018 Status: F Source: [place] REPORT 1:47 PM [facility] REPOSITORY [facility] [address] [place], [place] [address] [address] [place] [address] OFFICE VISIT Date of Service: 02/15/18 MR#: [id number] Acct: [id number] Name: JAMELDIA Mauro Rep #: [id number] : 1940 Provider: Jackson Uriostegui MD Age/Sex: 77/F Location: [facility] Status: Signed HPI HPI Chief Complaint: Initial visit. Details: DIA MCCULLOUGH, is a 77 F who presents to the office today for an initial visit. She is a lady with a history of adrenal insufficiency hyperlipidemia previous deep vein thrombosis and pulmonary embolism in September 2017 as well as chronic kidney disease. She says that she was in the hospital in [place] a number of months ago and had complained of some dizziness and was noted to have some irregular heartbeat and they felt that she needed to see a sales executive. She has not had any sustained palpitations. She previously was treated for hypertension with a beta-ab which was increased. She has been compliant with all her medications. She apparently had an echocardiogram done in 2015 the results of which are not immediately available to us. She had been in [place] with sepsis secondary to bowel perforation was [...] mg PO BID 02/15/18 [History Confirmed 02/15/18] [facility] Medical History Hypokalemia (Chronic) High blood pressure with chronic kidney disease (Chronic) Hypertensive nephropathy (Chronic) Hyperlipidemia (Chronic) Atherosclerosis of coronary artery of [place] heart without angina pectoris (Chronic) Bilateral pulmonary [...] Orders Orders: Follow Up 6 Months ([facility]) Coding Level of Care Code Off vis,new,level [...] PELVIS W/O Observed: 02/09/2018 Status: F Source: [facility] CONTRAST 1:46 PM HEALTH SYSTEM REPOSITORY Performed at [facility] APPROVED BY: Timothy Rush MD EXAMINATION: CT PELVIS WITHOUT IV [...] NURSING PROG Observed: 02/09/2018 Status: COMPLETED Source: [place] 12:17 PM [facility] REPOSITORY HNO ID: [id number] Author: Katia (Rn) GAURANG [place] Service: ASSESSMENT Author Type: Registered Nurse Type: Nursing Progress Note Filed: 02/09/2018 1:48 PM Note Text: 1 1215 patient admitted to [facility], pre procedure teaching at bedside. VSS Review of medications and moderate sedation with patient. 1350 patient return to [facility], procedure cancel No fluid to remove. 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 She has been off since discharge. Her PCP ordered a homocysteine level. It was 9.1 on 01/19/18, but not fasting. Will you want the level repeated? She is still not feeling well, when do you want an office visit? ABDOMEN/PELVIS WITH Observed: 01/26/2018 Status: F Source: [place] CONTRAST 1:30 PM [facility] REPOSITORY [facility] Imaging Services [address] [place] [address] Abdomen/Pelvis WITH Contrast MR#: [id number] Acct: [id number] Name: DIA MCCULLOUGH Rep #: [id number] : 1940 F 77 From: Kanwal Gutierrez MD PCP: Jared Romero MD Status: REG CLI Study: Abdomen/Pelvis WITH Contrast Date of Exam: 01/26/18 Exam# [id number] Ordering Dr: Jared Romero MD STUDY: CT [...] Service support , CC: Jared Romero MD Turntable Worker: Signed CBC W/DIFF, AUTOMATED Collected: 01/26/2018 Status: F Source: [place] 12:06 PM [facility] REPOSITORY TYPE CODE TESTS RESULT OUT OF [...] [facility] [address] [place], [place], [address] COMPREHENSIVE METABOLIC Collected: 01/26/2018 Status: F Source: [facility] 12:06 PM [facility] REPOSITORY TYPE CODE TESTS RESULT OUT OF [...] L500.4050 #### [facility] [place], [address] Observed: 01/26/2018 Status: F Source: [place] CULTURE, URINE 12:00 AM [facility] REPOSITORY Urine Culture ORGANISM 1: Klebsiella pneumoniae sp pneum [place] Count 25,000-50,000 ORGANISM 2: Proteus mirabilis [place]a Count 50,000-80,000 Klebsiella pneumoniae sp pneum: REACTION [...] M100.0650 #### [facility] [place], [address] OBSOLETE Observed: 01/25/2018 Status: COMPLETED Source: [place] 12:00 AM [facility] OTHER [place] REPOSITORY Refill ([facility]) DIA MCCULLOUGH ([id number]) 1940 F DILIA Date Time Provider Department 01/25/18 ANTIONE IRIZARRY During your visit today, we recorded the following information about you: Katarzyna Szymanski Sec 01/25/2018 11:35 AM Signed Patient [...] GI Upset Date Reviewed: 11/10/2017 Reviewed by: Timothy Rush - Fully Assessed Reason for Visit: [...] [E72.11] Perforated bowel (HCC) [K63.1] INVALID FOR* Collin disease [E27.1] Intra-abdominal abscess (HCC) [K65.1] INVALID [...] F Source: [place] PROFILE (BMP) 2:40 PM [facility] REPOSITORY Order Comment: Order Date: 01/17/18 Order [...] [facility] 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, [address] BASIC METABOLIC Collected: 01/12/2018 Status: F Source: [place] PROFILE (BMP) 4:34 PM [facility] REPOSITORY Order Comment: Order Date: 01/12/18 Order [...] L503.0105 #### [facility] [address], [address] IRON BINDING Collected: 01/12/2018 Status: F Source: [place] CAPACITY,TOTAL 4:34 PM [facility] Order Comment: Order Date: 01/12/18 Order Info: 666-05 - BMP Order Info: 2499-11 - TIBC Order Info: 2497-08 - FE Order Info: 2275-08 RITO Order Info: 2283-12 - FOLS Comments: homocysteine Is Patient Taking Vitamins or Folic Acid Supplements? Y TYPE CODE TESTS RESULT OUT OF RANGE REFERENCE UNITS LAB L503.6075 250-450 ug/dL Normal TIBC 362 Performed By: #### L100.0100, L500.2500, L503.6075, L503.6150, L503.6550, L506.0250, L503.0105 #### [facility] [address] [place], [place], [address] IRON Collected: 01/12/2018 Status: F Source: [place] 4:34 PM [facility] REPOSITORY Order Comment: Order Date: 01/12/18 Order Info: 666-05 - BMP Order Info: 2499-11 - TIBC Order Info: 2497-08 FE Order Info: 2275-08 - RITO Order Info: 2283-12 - FOLS Comments: homocysteine Is Patient Taking Vitamins or Folic Acid Supplements? Y TYPE CODE TESTS RESULT OUT OF RANGE REFERENCE UNITS LAB L503.6150 50-170 ug/dL Low IRON 26 Performed By: #### L100.0100, L500.2500, L503.6075, L503.6150, L503.6550, L506.0250, L503.0105 #### [facility] [address] [place], [place], [address] FERRITIN Collected: 01/12/2018 Status: F Source: [place] 4:34 PM [facility] REPOSITORY Order Comment: Order Date: 01/12/18 Order [...] [facility] [address] [place], [place], [address] FOLATES, (FOLIC ACID) Collected: 01/12/2018 Status: F Source: [place] 4:34 PM [facility] REPOSITORY Order Comment: Order Date: 01/12/18 Order [...] [facility] [address] [place], [address] VITAMIN B12 Collected: 01/12/2018 Status: F Source: [place] 4:34 PM [facility] REPOSITORY Order Comment: Order Date: 01/12/18 Order Info: 2132-9 - B12 TYPE CODE TESTS RESULT OUT OF RANGE REFERENCE UNITS LAB L503.0105 211-911 pg/mL Normal Vitamin B12 497 Performed By: #### L100.0100, L500.2500, L503.6075, L503.6150, L503.6550, L506.0250, L503.0105 #### [facility] [address] [place], [address] HOMOCYSTEINE Collected: 01/12/2018 Status: F Source: [place] 4:34 PM [facility] REPOSITORY TYPE CODE TESTS RESULT OUT OF REFERENCE UNITS RANGE LAB L503.8001 3.2-10.7 umol/L HOMOCYSTEINE Normal 9.1 Performed By: #### L503.8001 #### [facility] [address] [place], [place], [address] PROGRESS Observed: 12/09/2017 Status: COMPLETED Source: [place] 1:37 PM CLINIC OTHER CAMPUS REPOSITORY HNO ID: [id number] Author: Elizabeth Mixon Service: (none) Author Type: (none) Type: Progress Notes Filed: 12/09/2017 1:37 PM Note Text: The appointment was cancelled for this patient. Elizabeth Mixon CBC-COMPLETE BLOOD CNT Collected: 11/24/2017 Status: F Source: [place] NO DIFF 11:13 AM [facility] REPOSITORY TYPE CODE TESTS RESULT OUT OF [...] L100.0500 #### [facility] [address] [place], [address] RENAL PROFILE Collected: 11/24/2017 Status: F Source: [place] 11:13 AM [facility] REPOSITORY TYPE CODE TESTS RESULT OUT OF [...] #### [facility] [address] [place], [address] MICROALB:CREAT Collected: 11/24/2017 Status: F Source: [place] RATIO,RANDOM UR 11:13 AM [facility] REPOSITORY TYPE CODE TESTS RESULT OUT OF RANGE REFERENCE UNITS LAB L501.1200 NO RANGE EST. mg/dL Normal UR CREAT 80.70 LAB L502.0500 NO RANGE EST. mg/L Normal 8.1 MICROALBUMIN ,UR LAB L502.0600 <30 mg/g CRE mg/g CRE Normal 10.0 MALB:CREAT Performed By: #### L502.0250 #### [facility] [address] [place], [address] VITAMIN D,25 HYDROXY Collected: 11/24/2017 Status: F Source: [place] 11:13 AM [facility] REPOSITORY TYPE CODE TESTS RESULT OUT OF [...] [facility] [address] [place], [address] PTHIN Collected: 11/24/2017 Status: F Source: [place] 11:13 AM [facility] REPOSITORY TYPE CODE TESTS RESULT OUT OF RANGE REFERENCE UNITS LAB L509.1000 18.4-80.1 pg/mL Normal PTHIN 47.6 Performed By: #### L509.1000 #### [facility] [address] [place], [address] INJECTION FOR Observed: 11/10/2017 Status: F Source: [facility] CATH 3:31 PM [facility] [id number] REPOSITORY Performed at [facility] APPROVED BY: Timothy Rush MD EXAM TITLE: ABSCESSOGRAM WITH REMOVAL [...] OP NOT Observed: 11/10/2017 Status: COMPLETED Source: [place] 3:20 PM CLINIC OTHER CAMPUS REPOSITORY HNO ID: [id number] Author: Timothy Rush Service: Radiology Author Type: Physician Type: Brief Op Note Filed: 11/10/2017 3:21 PM Note Text: INTERVENTIONAL RADIOLOGY POST PROCEDURE NOTE DATE: 11/10/17 NAME: Dia Mccullough LOG ID: [id number] Pre-Procedure Diagnosis: Pelvic abscess with fistula Logistics Planner: Surgeon(s) and Role: * Timothy Rush - Primary Procedure: Abscessogram and drainage catheter removal Anesthesia: None Findings: No residual abscess cavity or fistulous connection to bowel. Estimated Blood Loss: 0 ml Specimen: None Complications: None Post-Op/Post-Procedure Diagnosis: Pelvic abscess with fistula PROTHROMBIN TIME W/INR Collected: 11/09/2017 Status: F Source: [place] 11:30 AM [facility] REPOSITORY TYPE CODE TESTS RESULT OUT OF REFERENCE UNITS RANGE LAB L300.4150 11.7-14.9 SECONDS High PROTIME 36.1 LAB L300.4200 High alert INR 3.6 Performed By: #### L300.3900 #### [facility] [address] [place], [address] HISTORY AND PHYSICAL Observed: 11/04/2017 Status: F Source: [place] EXAM 7:52 PM [facility] REPOSITORY [facility] Medical Records Department [address] [place] [address] History and Physical 11/04/171948 MR#: [id number] Acct: [id number] Name: DIA MCCULLOUGH Rep #: [id number] : 1940 77 From: Alejo Ortega MD PCP: Jared Romero MD Status: DIS IN Y Location: [place] [address] History of Present Illness Date of Admission: [...] surgery. 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 Smoking Status: Never smoker - *Family [...] INJECTION FOR Observed: 11/03/2017 Status: F Source: [facility] ASSESSMENT DRNG CATH 12:24 PM [facility] [address] REPOSITORY Performed at [facility] APPROVED BY: Nathaniel Betancur MD EXAM TITLE: [...] OP NOT Observed: 11/03/2017 Status: COMPLETED Source: [place] 12:15 PM [facility] REPOSITORY HNO ID: [id number] Author: Nathaniel Betancur Service: Interventional Radiology Author Type: Physician Type: Brief Op Note Filed: 11/03/2017 6:40 PM Note Text: BRIEF OPERATIVE / PROCEDURE NOTE LOG ID: [id number] Surgery/Procedure Date: 11/03/2017 Incision/Procedure Start Time: Incision Close/Procedure End Time: Surgeon(s)/Proceduralist(s) and Pathology Supervisor(s): Surgeon(s) and Role: * Timothy Rush Jori No Additional Staff Procedure(s): Abscessogram Anesthesia: None [...] 03, 2017 TIME: 6:21 PM PAGER/CONTACT #: [phone] HOSP Observed: 11/03/2017 Status: COMPLETED Source: [place] 12:00 AM [facility] REPOSITORY Patient:Dia Mccullough MRN: <[id number]> Height:5' 0(1.524 m) Weight:No patient weight recorded [...] [I87.2] 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 [place] 10/31/2017 11:15 AM Signed Faxed written RX to transitional care unit at [facility] at [phone] and spoke to Alisa regarding this. Advised her to call back if any questions. Will scan written RX into [employer]. [place]. DOWNTIME REPORT Observed: 11/02/2017 Status: F Source: [place] 1:47 PM [facility] REPOSITORY [facility] Medical Records Department [address] [place] [address] Downtime Report MR#: [id number] Acct: [id number] Name: DIA MCCULLOUGH Rep #: [id number] : 1940 77 From: Randi Damon MD PCP: Jared Romero MD Status: DIS IN This patient was seen during an EMR downtime October 17, 2017 - October 24, 2017. This patient may have a combination of paper and electronic documentation or all paper documentation. All documentation is viewable within the e-chart portion of [employer] for each patient visit. HOME HEALTH PROGRESS Observed: 10/31/2017 Status: F Source: [place] NOTE 7:54 AM [facility] REPOSITORY [facility] Medical Records Department [address] [place] [address] Home Health Progress Note [id number] Encounter Encounter Date: 10/28/17 1353 MR#: [id number] Acct: [id number] Name: DIA MCCULLOUGH Rep #: [id number] : 1940 77 From: Alejo Ortega MD PCP: Jared Romero MD Status: ADM IN Location: [place] [address] ADDENDUM by Alejo Ortega MD on 10/31/17 [...] (Chronic) - Requirements and Reasons Disciplines Needed/Ordered: Mcc, Physical Therapy Reason for Disciplines: Disease Specific [...] 10/31/2017 Status: F Source: [place] 5:20 AM [facility] REPOSITORY TYPE CODE TESTS RESULT OUT OF RANGE REFERENCE UNITS LAB L300.4150 11.7-14.9 SECONDS High PROTIME 24.2 LAB L300.4200 Normal INR 2.2 Performed By: #### L300.3900 #### [facility] [address] [facility] [place], [place], [address] PROTHROMBIN TIME W/INR Collected: 10/30/2017 Status: F Source: [place] 6:20 AM [facility] REPOSITORY TYPE CODE TESTS RESULT OUT OF RANGE REFERENCE UNITS LAB L300.4150 11.7-14.9 SECONDS High PROTIME 27.6 LAB L300.4200 Normal INR 2.6 Performed By: #### L300.3900 #### [facility] [address] [place], [address] PROTHROMBIN TIME W/INR Collected: 10/29/2017 Status: F Source: [place] 7:50 AM [facility] REPOSITORY TYPE CODE TESTS RESULT OUT OF RANGE REFERENCE UNITS LAB L300.4150 11.7-14.9 SECONDS High PROTIME 32.4 LAB L300.4200 Normal INR 3.1 Performed By: #### L300.3900 #### [facility] [address] [place], [address] DISCHARGE SUMMARY Observed: 10/28/2017 Status: F Source: [place] 1:53 PM [facility] REPOSITORY [facility] Medical Records Department [address] [place] [address] Discharge Summary 10/28/17 1348 MR#: [id number] Acct: [id number] Name: DIA MCCULLOUGH Rep #: [id number] : 1940 77 From: Alejo Ortega MD PCP: Jared Romero MD Status: ADM IN Location: [place] [id number]- Discharge Date and Diagnosis Date of Admission: [...] 3.6 H* 3.4 3.2 Consultations 10/24/17 Consult: Onc/Wound/hand meat salter Routine Comment: Reason for Consult:: lle hematoma [...] (Choose all that apply): None applicable 10/28/17 9098 <Electronically signed by Alejo Ortega MD> Date Alejo Ortega MD Cosigner Signature (if applicable): Date CC: Jared Romero MD; Alejo Ortega MD Signed DISCHARGE INSTRUCTION Observed: 10/28/2017 Status: F Source: [place] 1:48 PM [facility] REPOSITORY [facility] Medical Records Department [address] [place] [address] Instructions for Home/Discharge Instructions 10/28/17 1347 MR#: [id number] Acct: [id number] Name: DIA MCCULLOUGH Rep #: [id number] : 1940 77 From: Alejo Ortega MD [...] TIME W/INR Collected: 10/28/2017 Status: F Source: [place] 11:10 AM [facility] REPOSITORY Order Comment: PER BEV PT WAS IN THERAPY. TYPE CODE TESTS RESULT OUT OF RANGE REFERENCE UNITS LAB L300.4150 11.7-14.9 SECONDS High PROTIME 33.2 LAB L300.4200 Normal INR 3.2 Performed By: #### L300.3900 #### [facility] [address] [place], [address] PROTHROMBIN TIME W/INR Collected: 10/28/2017 Status: F Source: [place] 5:20 AM [facility] REPOSITORY TYPE CODE TESTS RESULT OUT OF RANGE REFERENCE UNITS LAB L300.4150 11.7-14.9 SECONDS High PROTIME 34.5 LAB L300.4200 Normal INR 3.4 Performed By: #### L300.3900 #### [facility] [address] [place], [address] INJECTION FOR Observed: 10/27/2017 Status: F Source: [facility] DRNG CATH 12:59 PM [facility]ALTH SYSTEM [address] REPOSITORY Performed at [facility] APPROVED BY: Timothy Rush MD EXAM TITLE: ABSCESSOGRAM DATE: 10/27/2017 [...] OP NOT Observed: 10/27/2017 Status: COMPLETED Source: [place] 12:01 PM CLINIC OTHER CAMPUS REPOSITORY HNO ID: [id number] Author: Timothy Rush Service: Radiology Author Type: Physician Type: Brief Op Note Filed: 10/27/2017 12:05 PM Note Text: INTERVENTIONAL RADIOLOGY POST PROCEDURE NOTE DATE: 10/27/17 NAME: Dia Mccullough LOG ID: [id number] Pre-Procedure Diagnosis: Diverticular abscess Logistics Planner: Surgeon(s) and Role: * Timothy Rush - Primary Procedure: Abscessogram Anesthesia: None Findings: Abscess decompressed. Fistulous connection to sigmoid colon. 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 Plan: Stop flushing. Repeat abscessogram in [address] PELVIS WITH Observed: 10/27/2017 Status: F Source: [facility] [employer] [facility] CONTRAST 10:46 AM HEALTH SYSTEM REPOSITORY Performed at [facility] APPROVED BY: Timothy Rush MD EXAM TITLE: CT PELVIS WITH [...] TIME W/INR Collected: 10/27/2017 Status: F Source: [place] 5:20 AM [facility] REPOSITORY TYPE CODE TESTS RESULT OUT OF REFERENCE UNITS RANGE LAB L300.4150 11.7-14.9 SECONDS High PROTIME 36.2 LAB L300.4200 High alert INR 3.6 Result Comment: CRITICAL VALUE VERIFIED. CALLED TO ADELA MEYER 10/27/17 0636 Kristen Heredia. RESULTS READ BACK BY SAME . Performed By: #### L300.3900 #### [facility] [address] 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 Advised her to call back if any questions. Will scan written RX into [employer]. [place]. Progress Notes (): Gold Clemens MD 10/08/2017 11:51 PM Signed DEPARTMENT OF HOSPITAL MEDICINE [facility] EMERGENCY DEPARTMENT PHYSICIANS HISTORY AND PHYSICAL EXAMINATION SERVICE DATE: 10/08/2017 10:57 PM PRIMARY CARE PHYSICIAN: Rika Wheeler MD Subjective CHIEF COMPLAINT: Left leg hematoma HPI: This is a 77 year old female who has a complicated recent medical history starting August 24 when she was diagnosed with diverticular abscess/perforation and septic shock. She was brought here for surgical eval from [place], but declined operative intervention and requested to [...] more bleeding, and she went to the [place] ED this morning. She was discharged back home after wound evaluation and no finding of circulatory compromise. Her son then brought her back to the ED with a concern over abdominal pain and insistent on hospitalization per [place] ED notes. Eval included CT abdomen which [...] dependent PAST MEDICAL HISTORY Diagnosis Date - Pima disease - Asthma - CKD (chronic kidney [...] HTN (hypertension) - Hypercholesterolemia - Inflammatory polyarthritis ([facility] Dr. Hansen - Inflammatory polyarthropathy - Normocytic anemia - PE (pulmonary thromboembolism) ([facility]) 01/05/14 Bilat, extensive - Pulmonary [...] MEDICATIONS Please see reconciled medication list in [facility] for details on home medications. ALLERGIES Allergen [...] Yes Assessment AND Plan: chronic and stable Pima disease POA: Yes Assessment AND Plan: continue [...] with nursing staff and/or other providers, documentation, mail order clerk, and [id number] time with patient. Of this time, greater than 50% was spent counseling and coordinating care. Counseling elements include educating the patient about diagnosis, further testing, and care related to Intra-abdominal abscess (HCC). Plan of care discussed with: Patient and RN VTE Prophylaxis: Patient is already anti-coagulated. Diagnostic tests reviewed for today's visit: Most recent labs and imaging results. Most recent EKG TELEMETRY: [facility] Imaging Services [address] [place] [address] Abdomen/Pelvis without Cont MR#: [id number] Acct: [id number] Name: DIA MCCULLOUGH Rep #: [id number] : 1940 F 77 From: Mckay Faulkner MD PCP: Jared Romero MD Status: REG ER Study: Abdomen/Pelvis without Cont Date of Exam: 10/08/17 Exam# [id number] Ordering Dr: Ronn Marrero MD STUDY: CT [...] AND WEEKEND COVERAGE: After 7pm please page [phone] Gold Clemens MD 10/09/2017 6:45 AM Signed Pulse > 150, tele showed SVT, EKG confirmed. Metoprolol PO given, will monitor response. No IV access at this time. Javier Wiley MD 10/17/2017 9:24 PM Signed CONSULT: General Surgery SERVICE SERVICE DATE: 10/09/2017 SERVICE TIME: 9:42 AM REASON FOR CONSULT: Intraabdominal abscess REQUESTING PHYSICIAN: Dr. Damon PRIMARY CARE PHYSICIAN: Rika Wheeler MD Subjective Ms. Mccullough is a 77 year old female recently admitted 08/24/17 from [place] for diverticular abscess/perforation and septic shock. After multiple discussion (with patient/family) regarding recommendations for surgery, patient was discharged to hospice at patient's request on po antibiotics. 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 Readmitted yesterday for CT [...] excluded. PAST MEDICAL HISTORY Diagnosis Date - Pima disease - Asthma - CKD (chronic kidney [...] HTN (hypertension) - Hypercholesterolemia - Inflammatory polyarthritis ([facility]) Dr. Hansen - Inflammatory polyarthropathy - Normocytic anemia - PE (pulmonary thromboembolism) ([facility]) 01/05/14 Bilat, extensive - Pulmonary [...] Take 1 tablet by mouth once daily. (Chief Controller) Disp: Rfl: 10/07/2017 at Unknown time Current [...] abscess/phlegmon ill defined on current imaging -d/w loss prevention guard radiologist, developing abscess is located in a [...] questions or concerns Mon-Fri 6a-5p please page [phone]. After 5pm and on Weekends and Holidays, please page [phone] if in ICU or [phone] if on RNF. SIGNATURE: Lina Damico MD PATIENT NAME: Dia Mccullough DATE: October 09, 2017 TIME: 8:59 AM PAGER: [phone] Attending Note I evaluated the patient and [...] AND WEEKEND COVERAGE: After 7pm please page [phone] CHIEF COMPLAINT: bleeding in left leg SUBJECTIVE: 6 weeks ago she had bowel perforation and was brought in here. She decided not to have surgery and was sent home on 2 weeks of oral abx. 2 weeks later she has hematemesis while on coumadin. She was treated with vit k at [facility] and was sent to hospice IPU. She [...] EXTREMITIES: left leg: wrapped in dressing and Darcy wrap. Foot warm with intact sensation. Right [...] ml/min (11/28/2014) Venous insufficiency (chronic) (peripheral) () Collin disease () Traumatic hematoma of left lower [...] CKD 3-4 Currently wrapped with dressing and DARCY 5. Episode of hematemesis 5 weeks ago [...] need drainage of abscess. Continue to apply darcy wrap pressure dressing to left leg. Continue lovenox at 1mg/kg daily dose. Consider eventual transition to coumadin (NOAC too expensive per patient) or IVC filter. Will get opinion of president & ceo- has seen Dr Irizarry in the past. Check ferritin, retic, vitamin b12 and folate. This was discussed with patient and later with son on the phone She is DNRCCA and no mechanical ventilation for respiratory distress either. VTE Prophylaxis: Patient is already anti-coagulated. Disposition: Home with [facility] Plan of care discussed with: Patient, Family/Other: son and RN SIGNATURE: Jose Maria Mittal MD PATIENT NAME: Dia Mccullough DATE: October 09, 2017 TIME: 1:33 PM PAGER/CONTACT #: [phone] Previous Version Shawna Henning MD 10/09/2017 2:43 PM Signed Patient seen and Heme issues discussed with patient and son. Consult dictated. 1. Patient doing well on Lovenox. 2. Keep current dose. 70 mg daily. 3. Hemostatic decisions will be based on surgeons decision in regard to surgery. Will facilitate the surgeons decision. Will follow. MD Randi Cody CHAPLAIN, Chaplain 10/09/2017 2:59 PM Signed SPIRITUALCARE Spiritual Care Visit- Brief Note Name: Dia Mccullough Date: October 09, 2017 Notes: As toddler guide, made intro visit with pt. Listened empathetically to pt's concerns. Reminded pt of 06/12 SC. Ict Developer Signature: CHAPLAIN Wilbert To contact the Spiritual Care Department: Please call [phone] or Page the On-Call Ict Developer at pager [phone] Thank you for the opportunity to be of service. This is an electronically created document. IF PRINTED, PLEASE DO NOT REMOVE FROM THE CHART OR MODIFY PRINTED COPY. Zhane Mcgovern III, MD 10/09/2017 8:19 PM Signed CONSULT: INFECTIOUS DISEASE SERVICE SERVICE DATE: 10/09/2017 SERVICE TIME: 4:02PM REASON FOR CONSULT: Abdominal abscess REQUESTING PHYSICIAN: Dr. Damon PRIMARY CARE PHYSICIAN: Rika Wheeler MD Subjective . 77 year old female who was in [facility] in August for perforated bowel Had refused surgery and actually went home on hospice and on oral antibiotics. Has been receiving blood thinner. Recently had hematoma of the left leg. Per HANDP, she was brought back to [place] ED for abdominal pain. There, it was [...] flagyl. PAST MEDICAL HISTORY Diagnosis Date - Pima disease - Asthma - CKD (chronic kidney [...] HTN (hypertension) - Hypercholesterolemia - Inflammatory polyarthritis ([facility]) Dr. Hansen - Inflammatory polyarthropathy - Normocytic anemia - PE (pulmonary thromboembolism) ([facility]) 01/05/14 Bilat, extensive - Pulmonary [...] Take 1 tablet by mouth once daily. (Chief Controller) Disp: Rfl: 10/07/2017 at Unknown time Current [...] October 09, 2017 TIME: 4:02 PM PAGER: [phone] Randi Koenig MD 10/10/2017 7:10 AM Attested Attestation [...] 0659 10/10/17 07 - 10/11/17 0659 Shift 1041-4385 0843-4640 1287-1461 24 Hour Total 0486-4212 8042-7847 2540-8859 24 Hour Total I N T A K E PO 240 240 480 PO 240 240 480 IV 1000 1000 LR 1000 1000 Shift Total 2055 376 6867 O U T P U T Urine [...] Leg hematoma, left, initial encounter 10/08/2017 - Collin disease Chronic - Venous insufficiency (chronic) (peripheral) - CKD (chronic kidney disease) stage 3, GFR 30-59 ml/min 11/28/2014 - Pulmonary emboli (HCC) 01/30/2014 Overview Note: clinically resolved - DVT (deep venous thrombosis) ([facility]) 01/08/2014 Overview Note: recurrent 77 [...] colonoscopy in 6-8 weeks after discharge. SIGNATURE: Randi Koenig MD PATIENT NAME: Dia Mccullough DATE: October 10, 2017 TIME: 7:05 AM Pager: [phone] Jose Maria Mittal MD 10/10/2017 11:50 AM Signed [facility] PROGRESS NOTE SERVICE DATE: 10/10/2017 SERVICE TIME: 11:27 AM Hospital Medicine/Primary Attending: Jose Maria Mittal MD NIGHT AND WEEKEND COVERAGE: After 7pm please page [phone] CHIEF COMPLAINT: left leg hematoma. SUBJECTIVE: No [...] ml/min (11/28/2014) Venous insufficiency (chronic) (peripheral) () Collin disease () Traumatic hematoma of left lower [...] CKD 3-4 Currently wrapped with dressing and DARCY. ? 5. Episode of hematemesis 5 weeks [...] 10, 2017 TIME: 11:27 AM PAGER/CONTACT #: [phone] Zhane Mcgovern III, MD 10/10/2017 2:52 PM [...] October 10, 2017 TIME: 2:48 PM PAGER: [phone] Teetee Mendez, RN, RN 10/10/2017 10:04 PM Addendum Monica paged to notify that the patient is requesting something for anxiety. Ativan 0.25 mg ordered once by AMMY Figueroa. AMMY Figueroa of [facility] notified that the patient received half of the dose of meropenem and then refused the other half related to GI upset. Previous Version Kaycee Figueroa, JON.AMMY 10/11/2017 4:00 AM Signed IM [facility] EMERGENCY DEPARTMENT NIGHT TEAM Called by general surgery resident regarding possible per drain in AM after ct complete. She discussed discontinuing lovenox and adding heparin gtt instead overnight. After procedure patient can be placed back on therapeutic lovenox. Discussed change with RN. Kaycee Figueroa CREDIT AND COLLECTION MANAGER 9000 Shauna Pulido MD 10/11/2017 6:43 AM Attested [...] O2 Therapy: Room Air IANDO: Date 10/10/17 0700 - 10/11/17 0659 10/11/17 07 - 10/12/17 0659 Shift 3549-5286 5792-8105 4908-1619 24 Hour Total 7491-8628 3251-0038 2899-8629 24 Hour Total I N T A [...] Leg hematoma, left, initial encounter 10/08/2017 - Pima disease Chronic - Venous insufficiency (chronic) (peripheral) - CKD (chronic kidney disease) stage 3, GFR 30-59 ml/min 11/28/2014 - Pulmonary emboli ([facility]) 01/30/2014 Overview Note: clinically resolved - DVT (deep venous thrombosis) ([facility]) 01/08/2014 Overview Note: recurrent 77 [...] 11, 2017 6:41 AM [facility] #: Pager: [phone] Previous Version Antione Irizarry MD 10/11/2017 11:43 [...] BS normal EXTREMITIES: left leg- wrapped in darcy. + hematoma. NEURO: No focal deficit. DATA: [...] October 11, 2017 TIME: 8 AM PAGER: [phone] Jose Maria Mittal MD 10/11/2017 9:44 AM Addendum DEPARTMENT OF HOSPITAL MEDICINE PROGRESS NOTE SERVICE DATE: 10/11/2017 SERVICE TIME: 9:22 AM Hospital Medicine/Primary Attending: Jose Maria Mittal MD NIGHT AND WEEKEND COVERAGE: After 7pm please page [phone] CHIEF COMPLAINT: left leg hematoma. Intraabdominal abscess. [...] BS normal EXTREMITIES: left leg- wrapped in darcy. Opened and examined yesterday- has large hematoma [...] 3.5 CHLOR 109* -- 108* 105 CO2 -- 28 24 BUN 20* -- 34* [...] ml/min (11/28/2014) Venous insufficiency (chronic) (peripheral) () Collin disease () Traumatic hematoma of left lower [...] for?CKD 3-4 Currently wrapped with dressing and DARCY. ? 5. Episode of hematemesis 5 weeks [...] 11, 2017 TIME: 9:22 AM PAGER/CONTACT #: [phone] Previous Version Chaplain Daley Chaplain 10/11/2017 12:05 PM Signed SPIRITUALCARE Spiritual Care Visit- Brief Note Name: Dia Mccullough Date: October 11, 2017 Notes: Per PT has multiple health issues and was scheduled for a test. She looked to be calm, took a prayer and was thankful for the [place] support. Ict Developer Signature: Chaplain Thuy To contact the Spiritual Care Department: Please call [phone] or Page the On-Call at pager [phone] Thank you for the opportunity to be of service. This is an electronically created document. IF PRINTED, PLEASE DO NOT REMOVE FROM THE CHART OR MODIFY PRINTED COPY. Chaplain Daley Chaplain 10/11/2017 12:06 PM Signed Spiritual Care Record ? Anointing/[place] PATIENT NAME: Dia Mccullough DATE: October 11, 2017 NOTE: Patient was anointed by Fr. ireland from [facility] on (date): 10/11/17. Signature: Chaplain Thuy Question? Please contact the Spiritual Care Department for assistance. This is an electronically created document. IF PRINTED, PLEASE DO NOT REMOVE FROM THE CHART OR MODIFY PRINTED COPY. Estrella Gómez RN, RN 10/11/2017 1:39 PM Signed ALIVIA LEYVA PROGRESS NOTE SERVICE DATE: 10/11/2017 SERVICE TIME: [...] scanned documents. Patient seen by Carol Neal LAUNDERER HAND and lacey RN. Left lower leg hematoma with area of congealed blood and distal fluid filled area. Xeroform, dry gauze dressing, and DARCY wrap daily. Plastic Surgery consulted for hematoma evacuation. Wound care to follow. SIGNATURE: Laly Justice RN PATIENT NAME: Dia Mccullough DATE: October 11, 2017 TIME: 3:13 PM CONTACT#: [id number] Misael Wei MD 10/11/2017 3:38 PM Signed [...] No resolved hospital problems. * SIGNATURE: Misael eWi MD PATIENT NAME: Dia Mccullough DATE: October 11, 2017 TIME: 3:22 PM PAGER/CONTACT #: [phone] Timothy Rush MD 10/11/2017 3:56 PM Signed UPDATED [...] Medical Record dated 10/08/2017 @ 11:51 PM. Timothy Rush MD 10/11/2017 4:31 PM Signed INTERVENTIONAL RADIOLOGY POST PROCEDURE NOTE DATE: 10/11/17 NAME: Dai Mccullough LOG ID: [id number] Pre-Procedure Diagnosis: Pelvic abscess Logistics Planner: Surgeon(s) and Role: * Timothy Rush - Primary Procedure: CT guided placement [...] BS normal EXTREMITIES: left leg- wrapped in darcy. + hematoma. NEURO: No focal deficit. DATA: [...] October 12, 2017 TIME: 8 AM PAGER: [phone] Shauna Pulido MD 10/12/2017 9:21 AM Attested [...] Room Air IANDO: Date 10/11/17 07 - 10/12/17 0659 10/12/17 07 - 10/13/17 0659 Shift 6834-5877 9103-0211 7185-3463 24 Hour Total 0328-3405 5986-4774 8855-9787 24 Hour Total I N T A K E PO 360 120 480 PO 360 120 480 IV 1100 1100 1000 1000 LR 1000 1000 1000 1000 Meropenem (Merrem) 100 100 Irrigants 5 5 Irrigant/Flush Amount In (Drain/Tube 10/11/17 Toby Sherwood Left Lower Quadrant Abdomen Drain #1) 5 5 Shift Total 3879 302 5525 1000 1000 O U T P U [...] Leg hematoma, left, initial encounter 10/08/2017 - Pima disease Chronic - Venous insufficiency (chronic) (peripheral) - CKD (chronic kidney disease) stage 3, GFR 30-59 ml/min 11/28/2014 - Pulmonary emboli (HCC) 01/30/2014 Overview Note: clinically resolved - DVT (deep venous thrombosis) ([facility] [facility]) 01/08/2014 Overview Note: recurrent 77 year old female with diverticulitis and presacral fluid/gas collection. -Regular diet - Continue SOFIA drain - Abx per ID - IR plans CT pelvis with abscessogram in 1 week. - Therapeutic lovenox per hematology - she will need to have an outpatient colonoscopy in 6-8 weeks after discharge. Shauna Pulido MD General Surgery PGY-4 October 12, 2017 9:21 AM [facility] #: Pager: [phone] Joan Masters RN, RN 10/12/2017 10:02 AM Signed CARE MANAGEMENT: ASSESSMENT AND DISCHARGE PLAN SERVICE DATE: 10/12/2017 SERVICE TIME: 955 PRIMARY CARE PHYSICIAN: Rika Wheeler MD ADMISSION STATUS: Inpatient Needs Prior to Discharge: Wound Care;Home Care Order;OT/PT Evaluation MEDICAL: Patient/Program Services Assistant Stated Goals: To improve my functional status [...] Wheelchair Has the Patient Been in a [facility] in the Past 30 days? No [...] 0 I feel financially burdened by my [id number] expenses for my prescription medication: Disagree mostly [...] Needs: None FREEDOM OF CHOICE EXPLAINED: Yes C POTENTIAL TRANSITION PLANS [facility] OT/PT Chart reviewed, spoke with RN. Spoke with pt at bedside who reports she is from a single story home alone, but has family support. Would like [facility] for wound care and would be agreeable to home PT/OT if needed. Await PT/OT eval (ordered) for further planning. SIGNATURE: Joan Masters RN PATIENT NAME: Dia Mccullough DATE: October 12, 2017 TIME: 9:56 AM PAGER/CONTACT #: [phone] Lacy Valdez MD 10/12/2017 8:12 PM Signed [...] hematoma. PAST MEDICAL HISTORY Diagnosis Date - Collin disease - Asthma - CKD (chronic kidney [...] HTN (hypertension) - Hypercholesterolemia - Inflammatory polyarthritis ([facility]) Dr. Hansen - Inflammatory polyarthropathy - Normocytic anemia - PE (pulmonary thromboembolism) ([facility]) 01/05/14 Bilat, extensive - Pulmonary [...] Take 1 tablet by mouth once daily. 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 She understands this [...] 2017 TIME: 1:46 PM PAGER/CONTACT #: [phone] JUJU Medina 10/12/2017 2:52 PM Signed Occupational Therapy Evaluation SERVICE DATE: 10/12/2017 SERVICE TIME: 1336 to 1406 ROOM: [place] [address] Recommended Discharge Disposition: Subacute/SNF Recommended Discharge Disposition Comments: Pt is limited with her mobility and ADL participation due to the L LE hematoma and abdominal pain from her abdominal abcess/drain placement. Pt has been to [place] re[facility] in the past and had a [...] evaluation was minimal/moderate, comorbidities affecting occupational performance: Collin's, CKD, DVT/PE, fibromyalgia, HTN, R hip endo [...] Weakness (generalized);Unsteadiness on feet Interventions Provided: Evaluation;Self Prison Management (95257) $ Evaluation-Moderate (26532) Billed Units: 1 unit Self Prison Management (73351) Treatment Minutes: 14 1 unit Skilled Intervention(s): [...] was brought here for surgical eval from [place], but declined operative intervention and requested to [...] more bleeding, and she went to the [place] ED this morning. She was discharged back home after wound evaluation and no finding of circulatory compromise. Her son then brought her back to the ED with a concern over abdominal pain and insistent on hospitalization per [place] ED notes. Eval included CT abdomen which showed a 5 cm abscess/phlegmon in the same area as the original perforation, and she was recommended to be transferred to have IR evaluation of percutaneous drainage. 10/11 Procedure: CT guided placement of abscess drainage catheter 77 year old female with diverticulitis and presacral fluid/gas collection. 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 Hansen - Inflammatory polyarthropathy - Normocytic anemia - PE (pulmonary thromboembolism) ([facility]) 01/05/14 Bilat, extensive - Pulmonary [...] Post acute placement Relevant Past Medical History: Pima's, CKD, DVT/PE, fibromyalgia, HTN, R hip endo 2013 back sx, Patient Report: Pt in room cooperative and asking to get out of bed. Pain: 8/10 L LE after movement Home Environment Patient Lives With: Self/Alone Assistance Available: multimedia services manager (Dtr nearby) Entry To Home: No Stairs [...] complete details for this therapy evaluation/treatment. SIGNATURE: ASHLEY Medina/Marina PATIENT NAME: Dia Mccullough DATE: October 12, 2017 TIME: 2:45 PM PAGER: [phone] Karin Dow MD 10/12/2017 6:00 PM Signed DEPARTMENT OF HOSPITAL MEDICINE PROGRESS NOTE SERVICE DATE: 10/12/2017 SERVICE TIME: 3:16 PM Hospital Medicine/Primary Attending: Karin Dow MD NIGHT AND WEEKEND COVERAGE: From 7am - 7pm, please call [phone] After 7pm, please call cross cover pager #[phone] Subjective INTERVAL HPI: Patient seen and examined. [...] BS normal EXTREMITIES: left leg- wrapped in darcy. Opened and examined yesterday- has large hematoma [...] lovenox for?CKD 3-4, continue with dressing and DARCY. ? 5. Episode of hematemesis 5 weeks [...] 2300 vte non-pharmacologic prophylaxis - none indicated (hi,oh) 10/08/17 230 vte current anticoag therapy ([place]) VTE Prophylaxis: VTE prophylaxis appropriate Disposition: SNF Plan of care discussed with: Patient SIGNATURE: Karin Dow MD PATIENT NAME: Dia Mccullough DATE: October 12, 2017 TIME: 3:16 PM PAGER/CONTACT #: [phone] etx [phone] Joan Masters RN, RN 10/12/2017 3:22 PM Signed CARE MANAGEMENT PROGRESS NOTE SERVICE DATE: 10/12/2017 SERVICE TIME: 1521 LOS: 1 day Needs Prior to Discharge: Accepting Facility;Bed Availability;Precertification;Discharge Transportation Spoke with Pt after PT/JED jones, pt agreeable to SNF at [place]. Would like [facility] [facility] as first choice. Will need precert. SIGNATURE: Joan Masters RN PATIENT NAME: Dia Mccullough DATE: October 12, 2017 TIME: 3:21 PM PAGER/CONTACT #: [phone] Radha Aceves PT 10/12/2017 3:38 PM Signed Physical Therapy Evaluation SERVICE DATE: 10/12/2017 SERVICE TIME: 1455 to 1520 ROOM: [place] [address] Recommended Discharge Disposition: Subacute/SNF Justification For Post [...] gait and mobility-other Interventions Provided: Evaluation;Therapeutic Activity (33968) $ Evaluation-Low (85037) Billed Units: 1 unit Therapeutic Activity (31637) Treatment Minutes: 9 1 unit Skilled Intervention(s): [...] CODE: PT 6 Clicks Score: 17 (10/12/17 0323) Mobility: Walking and Moving Around Current Status (G8978): CK (10/12/17 2234) Mobility: Walking and Moving Around Goal Status (G8979): CJ (10/12/17 3699) Based on clinical assessment and the score [...] was brought here for surgical eval from [place], but declined operative intervention and requested to [...] more bleeding, and she went to the [place] ED this morning. ?She was discharged back home after wound evaluation and no finding of circulatory compromise. ?Her son then brought her back to the ED with a concern over abdominal pain and insistent on hospitalization per [place] ED notes. ?Eval included CT abdomen which showed a 5 cm abscess/phlegmon in the same area as the original perforation, and she was recommended to be transferred to have IR evaluation of percutaneous drainage.??? Reason for Physical Therapy Consult : weakness Relevant Past Medical History: Pima's, CKD, DVT/PE, fibromyalgia, HTN, R hip endo 2013 back sx, Active Hospital Problems Diagnosis - Intra-abdominal abscess (HCC) - Traumatic hematoma of left lower leg - Leg hematoma, left, initial encounter - Pima disease - Venous insufficiency (chronic) (peripheral) - CKD (chronic kidney disease) stage 3, GFR 30-59 ml/min - Pulmonary emboli (HCC) clinically resolved - DVT (deep venous thrombosis) (HCC) recurrent PAST MEDICAL HISTORY Diagnosis Date - Pima disease - Asthma - CKD (chronic kidney [...] Environment Patient Lives With: Self/Alone Assistance Available: multimedia services manager (Dtr nearby) Entry To Home: No Stairs [...] 12, 2017 TIME: 3:33 PM PAGER/CONTACT #: [phone] Summer Farias, Dockworker 10/12/2017 3:45 PM Signed SNF referral sent to [facility] Debbie Hilton, RN, RN 10/13/2017 11:09 AM Signed Received message through Joan Masters, Striker Off that [facility] will be able to accept pt at [...] non-tender, BS normal, No masses or organomegaly. SOFIA drain c/d/i EXTREMITIES: Extensive bruising, LLE wrapped NEURO: Grossly normal cognition, motor function, and cranial nerves III-XII DATA: Diagnostic tests reviewed for today's visit: Most recent labs and imaging results. Assessment/Plan 1. Intra-abdominal Abscess 2/2 Complicated Diverticulitis - await ID/Sens, currently with SOFIA drain and on meropenem. Abscessogram next week per IR. 2. Acute LLE hematoma - large, evaluated by Plastics and non-operative mgmt being pursued. 3. Hypercoag State with Mult DVT/PE - currently on once daily therapeutic Lovenox 4. A/C Blood Loss Anemia - 2/2 #2. Stable H/H, follow. 5. CKF S3 6. Pima's Dz - prednisone 7. PMR/Inflammatory Polyarthritis Medication and Non-Pharmacologic VTE Prophylaxis/Anticoagulants Anticoagulant AND Antiplatelet Medications Start Dose Route Frequency Ordered Stop 10/11/17 1800 enoxaparin 70 mg injection (LOVENOX) 1 mg/kg/dose SUBCUTANEOUS EVERY 24 HOURS 10/11/17 1736 -- 05/26/18 2300 vte non-pharmacologic prophylaxis - none indicated (hi,oh) 10/08/172299 vte current anticoag therapy (hi,pr) VTE Prophylaxis: VTE prophylaxis appropriate SIGNATURE: Lory Garces MD PATIENT NAME: Dia Mccullough DATE: October 13, 2017 TIME: 11:11 AM PAGER: Vincent Hilton, RN, RN 10/13/2017 2:45 PM Signed [facility]. She will start precert for pt for [...] 14, 2017 TIME: 12:15 PM PAGER/CONTACT #: [phone] Previous Version Lory Garces MD 10/14/2017 12:52 [...] non-tender, BS normal, No masses or organomegaly. SOFIA drain c/d/i EXTREMITIES: Extensive bruising, LLE wrapped NEURO: Grossly normal cognition, motor function, and cranial nerves III-XII DATA: Diagnostic tests reviewed for today's visit: Most recent labs and imaging results. Assessment/Plan 1. Intra-abdominal Abscess 2/2 Complicated Diverticulitis - Rx with SOFIA drain and on meropenem in-house. Patient refuses [...] follow. ? 5. CKF S3 ? 6. Pima's Dz - prednisone ? 7. PMR/Inflammatory Polyarthritis Medication and Non-Pharmacologic VTE Prophylaxis/Anticoagulants Anticoagulant AND Antiplatelet Medications Start Dose Route Frequency Ordered Stop 10/11/17 1800 enoxaparin 70 mg injection (LOVENOX) 1 mg/kg/dose SUBCUTANEOUS EVERY 24 HOURS 10/11/17 1736 -- 10/08/17 230 vte non-pharmacologic prophylaxis - none indicated (hi,oh) 10/08/17 230 vte current anticoag therapy (hi,pr) VTE Prophylaxis: VTE prophylaxis appropriate SIGNATURE: Lory Garces MD PATIENT NAME: Dia Mccullough DATE: October 14, 2017 TIME: 12:49 PM PAGER: Vincent Hilton, RN, RN 10/14/2017 2:41 PM Signed Spoke with Allie @ [facility]. They cancelled precert for this patient thinking she would not come until next week. Asked that they get new precert. Lory Garces MD 10/14/2017 2:45 PM Signed DISCHARGE SUMMARY PATIENT NAME: Dia Mccullough Admission Information Admission Information ADMIT DATE: 10/08/2017 DISCHARGE DATE: 10/14/2017 MY DOCTORS AND MEDICAL TEAM: My Main Hospital Doctor: Lory Garces Primary Care Provider: Rika Wheeler MD My Medical Team Members: Treatment [...] GFR 30-59 ml/min Venous insufficiency (chronic) (peripheral) Pima disease Traumatic hematoma of left lower leg Leg hematoma, left, initial encounter Resolved Problems: * No resolved hospital problems. * OPERATIONS PERFORMED WHILE IN THE HOSPITAL: None IMPORTANT TEST/PROCEDURES: No procedures performed TEST RESULTS NOT AVAILABLE AT THIS TIME: No pending results Discharge Disposition Discharge Disposition: [facility] Facility - Greater than 30 Days Activity When You Leave the Hospital Resume pre-hospital activity Diet Instructions Resume your pre-hospital diet Follow Up Appointments Follow-Up Appointment When: In 4 weeks Misael Odell Sanjuana [phone] [place] [address] [facility] [address] PCP Requested Referral Follow-Up Appointment When: In 1 week Rika Rogerlydia [phone] [facility] [address] PCP Requested Referral Additional Provider to Provider Information: 1. ?Intra-abdominal Abscess 2/2 Complicated Diverticulitis - Rx with SOFIA drain and on meropenem in-house. ?Patient refuses PICC line and IV anti-biotics despite d/w me and ID. Cx growing Klebsiella, Clostridium, Yeast, and unknown GPC, and ID changed abx to Augmentin, Cipro, and Fluconazole. Rx for at least 4 weeks and through resolution of abscess. Abscessogram not able to be performed due to insurance reasons at [place], d/w patient, and she would prefer to still go to [place] and get CT scan only even though [...] follow. ? 5. ?CKF S3 ? 6. ?Pima's Dz - prednisone ? 7. ?PMR/Inflammatory Polyarthritis FOLLOW-UP APPOINTMENTS ALREADY SCHEDULED WITH A [facility] PROVIDER: No future appointments. DISCHARGE MEDICATION: Current [...] RN, RN 10/14/2017 6:23 PM Addendum 1822- [facility] has not called back stating if the patient has received precert. RN spoke with Joan medicare contact specialist and she states she has not heard anything back from [place]. Patient updated. 1630-Per medicare contact specialist Debbie Hilton patients precert is no longer active and states that [facility] is working towards new precert for later today. RN and medicare contact specialist updated patient on discharge situation. Previous Version Keya Robles RN, RN 10/15/2017 9:52 AM Signed CARE MANAGEMENT PROGRESS NOTE SERVICE DATE: 10/15/2017 SERVICE TIME:9:49 A.M. Spoke with Allie, staff member at [facility]. They do not have pre-cert at this time so patient is unable to come to them this weekend. The earliest would be Tuesday, if they can obtain if at that time. LOS: 4 days SIGNATURE: Keya Robles RN PATIENT NAME: Dia Mccullough DATE: October 15, 2017 TIME: 9:49 AM PAGER/CONTACT #: [phone] Patsy Kirby MD, MD 10/16/2017 5:52 AM Signed DEPARTMENT OF HOSPITAL MEDICINE PROGRESS NOTE SERVICE DATE: 10/15/2017 SERVICE TIME: 8:18 PM Hospital Medicine/Primary Attending: Patsy Kirby MD Subjective INTERVAL HPI: Pt doing fine, no fever,nausea or vomiting,abdominal pain better.looking forward to therapy at [facility]. MEDICATIONS: Reviewed Current Facility-Administered Medications: amoxicillin-clavulanic acid [...] 650 mg ORAL q 4 H PRN Timothy Rush iv contrast (radiology procedure) INTRAVENOUS DIRECTED PRN Timothy Rush enoxaparin 70 mg injection (LOVENOX) 1 mg/kg/dose SUBCUTANEOUS q 24 HR Jose Maria Kyrie 70 mg at 10/15/17 1810 HYDROcodone 5 mg - acetaminophen 325 mg tablet (NORCO) 1 tablet ORAL q 4 H PRN Kaycee (Slip Operator) Carolina 1 tablet at 10/15/17 0857 polyethylene [...] soft, non-tender, BS normal, No masses palpable ?SOFIA drain c/d/i EXTREMITIES: Extensive bruising, LLE wrapped [...] Leg hematoma, left, initial encounter 10/08/2017 - Pima disease Chronic - Venous insufficiency (chronic) (peripheral) - CKD (chronic kidney disease) stage 3, GFR 30-59 ml/min 11/28/2014 - Pulmonary emboli (HCC) 01/30/2014 Overview Note: clinically resolved - DVT (deep venous thrombosis) (HCC) 01/08/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 ?Intra-abdominal Abscess 2/2 Complicated Diverticulitis - Rx?with SOFIA drain and on meropenem in-house. ?Patient refuses PICC line and IV anti-biotics despite d/w me and ID. ?Cx growing Klebsiella, Clostridium, Yeast, and unknown GPC, and ?ID changed abx to Augmentin, Cipro, and Fluconazole. ?Rx for at least 4 weeks and through resolution of abscess. ?Abscessogram not able to be performed due to insurance reasons at [place], d/w patient, and she would prefer to still go to [place] and get CT scan only even though [...] follow. ? 5. ?CKF S3 ? 6. ?Pima's Dz - prednisone ? ? 7. ?PMR/Inflammatory [...] 2300 vte non-pharmacologic prophylaxis - none indicated (hi,oh) 10/08/17 2300 vte current anticoag therapy (fl,oh) Disposition: SNF,pending precert Plan of care discussed with: Patient and RN SIGNATURE: Patsy Kirby MD PATIENT NAME: Dia Mccullough DATE: October 15, 2017 TIME: 8:18 PM PAGER/CONTACT #: monica sparksx [phone] Patsy Kirby MD, MD 10/17/2017 3:57 AM [...] 650 mg ORAL q 4 H PRN Timothy Rush iv contrast (radiology procedure) INTRAVENOUS DIRECTED PRN Timothy Rush enoxaparin 70 mg injection (LOVENOX) 1 mg/kg/dose SUBCUTANEOUS q 24 HR Jose Maria Kyrie 70 mg at 10/16/17 1710 HYDROcodone 5 mg - acetaminophen 325 mg tablet (NORCO) 1 tablet ORAL q 4 H PRN Kaycee (Slip Operator) Carolina 1 tablet at 10/15/17 0857 polyethylene [...] mg ORAL q 6 H PRN Gold Richardsontelmabrian predniSONE 5 mg tab(s) (DELTASONE) 5 mg ORAL BID PC Gold Lyonon 5 mg at 10/16/17 1235 predniSONE 2.5 mg tab(s) (DELTASONE) 2.5 mg ORAL DAILY wDINNER Gold Lyonon 2.5 mg at 10/16/[address] 40 mg tab(s) (PROTONIX) 40 mg ORAL DAILY (6 AM) Gold Richardsontelmabrian 40 mg at 10/16/17 0546 saliva substitute combo no.9 15 mL (BIOTENE mouthwash) 15 mL MUCOUS MEMBRANE (TOPICAL MOUTH AND THROAT) 5X/DAY Gold Richardsontelmabrian 15 mL at 10/14/17 0817 benzocaine-menthol 1 Lozenge (CEPACOL) 1 Lozenge MUCOUS MEMBRANE (TOPICAL MOUTH AND THROAT) q 2 H PRN Gold Roger Richardsontelmabrian 0.9% NaCl 3-5 mL 3-5 mL INTRAVENOUS q 12 H Gold Roger Richardsontelmabrian 3 mL at 10/16/17 2118 lactated ringers [...] soft, non-tender, BS normal, No masses palpable ?SOFIA drain c/d/i EXTREMITIES: Extensive bruising, LLE wrapped [...] ?Intra-abdominal Abscess 2/2 Complicated Diverticulitis - Rx?with SOFIA drain and on meropenem in-house. ?Patient refuses PICC line and IV anti-biotics despite d/w me and ID. ?Cx growing Klebsiella, Clostridium, Yeast, and unknown GPC, and ?ID changed abx to Augmentin, Cipro, and Fluconazole. ?Rx for at least 4 weeks and through resolution of abscess. ?Abscessogram not able to be performed due to insurance reasons at [place], d/w patient, and she would prefer to still go to [place] and get CT scan only even though [...] 2300 vte non-pharmacologic prophylaxis - none indicated (hi,oh) 10/08/17 2300 vte current anticoag therapy (fl,oh) Disposition: SNF,pending precert Plan of care discussed with: Patient and RN SIGNATURE: Patsy Kirby MD PATIENT NAME: Dia Mccullough DATE: October 16, 2017 TIME: 10:00 PM PAGER/CONTACT #: monica castano etx [phone] Mal Zavala MD 10/17/2017 4:36 PM Signed [...] ?F) Temporal Art 100 16 100 % 10/16/17 2005 139/71 36.7 ?C (98.1 ?F) Oral 113 18 98 % 10/16/17 1602 115/63 36.9 ?C (98.4 ?F) Oral 107 18 98 % Body mass index is 30.44 kg/m?. GENERAL: Alert, no distress, cooperative LUNGS: Lungs clear to auscultation. Good diaphragmatic excursion. CARDIAC: Normal S1 and S2; no rubs, murmurs, or gallops ABDOMEN: abd soft, sofia drain NEURO: Alert, oriented X 3 DATA: [...] Lymph 1.18 - 3.74 thou/cmm 1.39 Abs. Austin 0.27 - 0.70 thou/cmm 0.69 Abs. Eosin [...] Addisons: -cont prednisone [facility] [place] 4 wk of po abx. ID f/u [...] DATE: 10/17/17 NAME: Dia Mccullough LOG ID: [id number] Pre-Procedure Diagnosis: Pelvic abscess, likely 2/2 ruptured diverticulitis, s/p percutaneous drain placement Post Procedure Diagnosis: Same. Logistics Planner: Dr. Rain Hung Procedure: Fluoroscopic guided abscessogram [...] will eval patient today. Anticipate d/c to [facility] once pre-cert approved. SIGNATURE: Kaelyn Hugo RN PATIENT NAME: Dia Mccullough DATE: October 17, 2017 TIME: 11:05 AM PAGER/CONTACT #: [phone] Kaelyn Hugo RN, RN 10/17/2017 11:21 AM Signed CARE MANAGEMENT PROGRESS NOTE SERVICE DATE: 10/17/2017 SERVICE TIME: 1118 LOS: 6 days Spoke with patient at bedside. Patient does not want to wait for insurance approval for [facility] facility. She states that if insurance doesn't approve SNF today then she will just go home. Educated patient on importance of following physical therapy's recommendations for [facility] placement. Patient not agreeable to that plan. Requesting home physical therapy services. Referral sent to [facility]. SIGNATURE: Kaelyn Hugo RN PATIENT NAME: Dia Mccullough DATE: October 17, 2017 TIME: 11:18 AM PAGER/CONTACT #: [phone] Misael Wei MD 10/17/2017 12:51 PM Signed [...] 17, 2017 TIME: 12:44 PM PAGER/CONTACT #: [phone] Nadege CHRISTIAN Hansen 10/17/2017 3:33 PM Attested Attestation signed by Carlos Enrique Briggs) Justin at 10/17/2017 3:59 PM I reviewed and agree with the documentation corresponding to this therapy visit. SIGNATURE: Carlos Enrique Anderson PT DATE: October 17, 2017 TIME: 3:59 PM Physical Therapy Treatment SERVICE DATE: 10/17/2017 SERVICE TIME: 1445 to 1508 ROOM: [id number] Recommended Discharge Disposition: Subacute/SNF Justification For Post [...] gait and mobility-other Interventions Provided: Therapeutic Exercise (86665);Therapeutic Activity (05613) Therapeutic Exercise (63468) Treatment Minutes: 13 1 unit Skilled Intervention(s): Instruction in General strenght program: ankle pump, quad set, glute set, adductor set, hip abduction/adduction, heel slide, short arc quad, long arc quad 2 x 10 reps with both legs. Verbal and tactile cuing provided for proper alignment and technique. Therapeutic Activity (74509) Treatment Minutes: 10 1 unit Skilled Intervention(s): [...] Consult : weakness Relevant Past Medical History: Collin's, CKD, DVT/PE, fibromyalgia, HTN, R hip endo 2013 back sx, Patient Report: Has increase throbbing pain to left lower extremity when in dependent position. Home Environment Patient Lives With: Self/Alone Assistance Available: multimedia services manager (Dtr nearby) Entry To Home: No Stairs [...] 17, 2017 TIME: 3:16 PM PAGER/CONTACT #: [phone] Kaelyn Hugo RN, RN 10/17/2017 4:17 PM [...] 17, 2017 TIME: 4:16 PM PAGER/CONTACT #: [phone] Kaelyn Hugo RN, RN 10/18/2017 10:32 AM Signed CARE MANAGEMENT PROGRESS NOTE SERVICE DATE: 10/18/2017 SERVICE TIME: 1031 LOS: 7 days Chart reviewed. Received auth from [facility]. Transport arranged for 1 pm via [facility]. Patient and patient's son agreeable with plan. RN notified. SIGNATURE: Kaelyn Hugo RN PATIENT NAME: Dia Mccullough DATE: October 18, 2017 TIME: 10:31 AM PAGER/CONTACT #: [phone] Erika Mckeon MD, MD 10/18/2017 7:59 PM Signed DISCHARGE SUMMARY PATIENT NAME: Dia Mccullough ADMISSION DATE: 10/08/2017 DISCHARGE DATE: 10/18/2017 ATTENDING PHYSICIAN: Ramonita att. providers found REASON FOR HOSPITALIZATION: Intraabdominal abscess DISCHARGE DIAGNOSES 1. Intra abd abscess 2/2 complicated diverticulitis: 2. Sigmoid diverticulitis 3. Recent hx of DVT and PE 4. LLE Hematoma: ? 5. Anemia 6. CKD stage 3 7. Pima's disese CONSULTATION TEAMS DURING HOSPITALIZATION: ID, OPERATIONS DURING HOSPITALIZATION: None PROCEDURES DURING HOSPITALIZATION: No procedures performed HOSPITAL COURSE: 77 yrs old female who was admitted on 10/11/2017 for abd pain, N+/V+, she left leg hematoma, and intraabdominal abscess which is from acute sigmoid diverticulitis. She was started on broad spectrum antibiotics of Meropenum and ID, Surgery, Hemo/Oncology are consulted. She underwent abscessogram SOFIA catheter placed, her abdominal pain, nausea and [...] rubs, murmurs, or gallops ABDOMEN: abd soft, sofia drain NEURO: Alert, oriented X 3 ? [...] tablet Comments: Reason for Stopping: DISCHARGE DISPOSITION: [facility] FOLLOW-UP APPOINTMENTS ALREADY SCHEDULED WITH A [facility] PROVIDER No future appointments. TIME OF CARE: Discharge Management: I personally spent greater than 30 minutes involved in the discharge management of this patient. SIGNATURE: Erika Mckeon MD PAGER/CONTACT #: DATE: October 18, 2017 TIME: 7:36 PM PROTHROMBIN TIME W/INR Collected: 10/26/2017 Status: F Source: [place]AR[place] 5:15 AM [facility] REPOSITORY TYPE CODE TESTS RESULT OUT OF RANGE REFERENCE UNITS LAB L300.4150 11.7-14.9 SECONDS High PROTIME 34.6 LAB L300.4200 Normal INR 3.4 Performed By: #### L300.3900 #### [facility] [address] [place], [place], [address] PROTHROMBIN TIME W/INR Collected: 10/25/2017 Status: F Source: ALANSON 5:50 AM [facility] REPOSITORY TYPE CODE TESTS RESULT OUT OF RANGE REFERENCE UNITS LAB L300.4150 11.7-14.9 SECONDS High PROTIME 31.9 LAB L300.4200 Normal INR 3.1 Performed By: #### L300.3900 #### [facility] [address] [place], [address] CBC W/DIFF, AUTOMATED Collected: 10/25/2017 Status: F Source: [place] 5:50 AM [facility] REPOSITORY TYPE CODE TESTS RESULT OUT OF [...] [facility] [address] [place], [address] BASIC METABOLIC Collected: 10/25/2017 Status: F Source: [place] PROFILE ([facility]) 5:50 AM [facility] REPOSITORY TYPE CODE TESTS RESULT OUT OF [...] #### [facility] [address] [facility] [place], [place], [address] PROTHROMBIN TIME W/INR Collected: 10/24/2017 Status: F Source: [place] 5:10 AM [facility] REPOSITORY Order Comment: ORDERED FROM DT REQ TYPE CODE TESTS RESULT OUT OF RANGE REFERENCE UNITS LAB L300.4150 11.7-14.9 SECONDS High PROTIME 26.2 LAB L300.4200 Normal INR 2.4 Performed By: #### L300.3900 #### [facility] [facility] [place], [place], [address] PROTHROMBIN TIME W/INR Collected: 10/23/2017 Status: F Source: [place] 6:00 AM [facility] REPOSITORY Order Comment: ORDERED ON DOWNTIME TYPE CODE TESTS RESULT OUT OF RANGE REFERENCE UNITS LAB L300.4150 11.7-14.9 SECONDS High PROTIME 25.0 LAB L300.4200 Normal INR 2.3 Performed By: #### L300.3900 #### [facility] [place], [place], [address] PROTHROMBIN TIME W/INR Collected: 10/23/2017 Status: F Source: [place] 5:55 AM [facility] REPOSITORY Order Comment: RESULT(S) PREVIOUSLY REPORTED ON MANUAL REQUISITION DURING DOWNTIME. TYPE CODE TESTS RESULT OUT OF RANGE REFERENCE UNITS LAB L300.4150 11.7-14.9 SECONDS High PROTIME 25.0 LAB L300.4200 Normal INR 2.3 Performed By: #### L300.3900 #### [facility] [address] [facility] [place], [address] PROTHROMBIN TIME W/INR Collected: 10/22/2017 Status: F Source: [place] 12:00 AM [facility] REPOSITORY Order Comment: RESULT(S) PREVIOUSLY REPORTED ON MANUAL REQUISITION DURING DOWNTIME. TYPE CODE TESTS RESULT OUT OF RANGE REFERENCE UNITS LAB L300.4150 11.7-14.9 SECONDS High PROTIME 22.8 LAB L300.4200 Normal INR 2.0 Performed By: #### L300.3900 #### [facility] [address] [facility] [place], [address] PROTHROMBIN TIME W/INR Collected: 10/21/2017 Status: F Source: [place] 5:55 AM [facility] REPOSITORY Order Comment: RESULT(S) PREVIOUSLY REPORTED ON MANUAL REQUISITION DURING DOWNTIME. TYPE CODE TESTS RESULT OUT OF RANGE REFERENCE UNITS LAB L300.4150 11.7-14.9 SECONDS High PROTIME 16.1 LAB L300.4200 Normal INR 1.3 Performed By: #### L300.3900 #### [facility] [address] [facility] [place], [address] PROTHROMBIN TIME W/INR Collected: 10/20/2017 Status: F Source: [place] 6:00 AM [facility] REPOSITORY Order Comment: RESULT(S) PREVIOUSLY REPORTED ON MANUAL REQUISITION DURING DOWNTIME. TYPE CODE TESTS RESULT OUT OF RANGE REFERENCE UNITS LAB L300.4150 11.7-14.9 SECONDS High PROTIME 16.1 LAB L300.4200 Normal INR 1.3 Performed By: #### L300.3900 #### [facility] [address] [facility] 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 She was brought here for surgical eval from [place], but declined operative intervention and requested to [...] more bleeding, and she went to the [place] ED this morning. She was discharged back home after wound evaluation and no finding of circulatory compromise. Her son then brought her back to the ED with a concern over abdominal pain and insistent on hospitalization per [place] ED notes. Eval included CT abdomen which [...] dependent PAST MEDICAL HISTORY Diagnosis Date - Pima disease - Asthma - CKD (chronic kidney [...] HTN (hypertension) - Hypercholesterolemia - Inflammatory polyarthritis ([facility]) Dr. Hansen - Inflammatory polyarthropathy - Normocytic anemia - PE (pulmonary thromboembolism) ([facility]) 01/05/14 Bilat, extensive - Pulmonary [...] MEDICATIONS Please see reconciled medication list in [facility] for details on home medications. ALLERGIES Allergen [...] Yes Assessment AND Plan: chronic and stable Pima disease POA: Yes Assessment AND Plan: continue [...] with nursing staff and/or other providers, documentation, mail order clerk, and [id number] time with patient. Of this time, greater than 50% was spent counseling and coordinating care. Counseling elements include educating the patient about diagnosis, further testing, and care related to Intra-abdominal abscess (HCC). Plan of care discussed with: Patient and RN VTE Prophylaxis: Patient is already anti-coagulated. Diagnostic tests reviewed for today's visit: Most recent labs and imaging results. Most recent EKG TELEMETRY: [facility] Imaging Services [address] [place] [address] Abdomen/Pelvis without Cont MR#: [id number] Acct: [id number] Name: DIA MCCULLOUGH Rep #: [id number] : [id number] F [id number] From: Mckay Faulkner MD PCP: Jared Romero MD Status: REG ER Study: Abdomen/Pelvis without Cont Date of Exam: 10/08/17 Exam# [id number] Ordering Dr: Ronn Marrero MD STUDY: CT [...] AND WEEKEND COVERAGE: After 7pm please page [phone] Gold Clemens MD 10/09/2017 6:45 AM Signed Pulse > 150, tele showed SVT, EKG confirmed. Metoprolol PO given, will monitor response. No IV access at this time. Javier Wiley MD 10/17/2017 9:24 PM Signed CONSULT: General Surgery SERVICE SERVICE DATE: 10/09/2017 SERVICE TIME: 9:42 AM REASON FOR CONSULT: Intraabdominal abscess REQUESTING PHYSICIAN: Dr. Damon PRIMARY CARE PHYSICIAN: Rika Wheeler MD Subjective Ms. Mccullough is a 77 year old female recently admitted 08/24/17 from [place] for diverticular abscess/perforation and septic shock. After multiple discussion (with patient/family) regarding recommendations for surgery, patient was discharged to hospice at patient's request on po antibiotics. 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 Readmitted yesterday for CT [...] excluded. PAST MEDICAL HISTORY Diagnosis Date - Pima disease - Asthma - CKD (chronic kidney [...] HTN (hypertension) - Hypercholesterolemia - Inflammatory polyarthritis ([facility]) Dr. Hansen - Inflammatory polyarthropathy - Normocytic anemia - PE (pulmonary thromboembolism) ([facility]) 01/05/14 Bilat, extensive - Pulmonary [...] Take 1 tablet by mouth once daily. (Chief Controller) Disp: Rfl: 10/07/2017 at Unknown time Current [...] abscess/phlegmon ill defined on current imaging -d/w loss prevention guard radiologist, developing abscess is located in a [...] questions or concerns Mon-Fri 6a-5p please page [phone]. After 5pm and on Weekends and Holidays, please page [phone] if in ICU or [phone] if on RNF. SIGNATURE: Lina Damico MD PATIENT NAME: Dia Mccullough DATE: October 09, 2017 TIME: 8:59 AM PAGER: [phone] Attending Note I evaluated the patient and [...] MD 10/09/2017 2:02 PM Addendum [facility] MEDIC[facility] PROGRESS NOTE SERVICE DATE: 10/09/2017 SERVICE TIME: 1:33 PM Hospital Medicine/Primary Attending: Jose Maria Mittal MD NIGHT AND WEEKEND COVERAGE: After 7pm please page [phone] CHIEF COMPLAINT: bleeding in left leg SUBJECTIVE: 6 weeks ago she had bowel perforation and was brought in here. She decided not to have surgery and was sent home on 2 weeks of oral abx. 2 weeks later she has hematemesis while on coumadin. She was treated with vit k at [place] and was sent to hospice IPU. She [...] EXTREMITIES: left leg: wrapped in dressing and Darcy wrap. Foot warm with intact sensation. Right [...] ml/min (11/28/2014) Venous insufficiency (chronic) (peripheral) () Collin disease () Traumatic hematoma of left lower [...] CKD 3-4 Currently wrapped with dressing and DARCY 5. Episode of hematemesis 5 weeks ago [...] need drainage of abscess. Continue to apply darcy wrap pressure dressing to left leg. Continue lovenox at 1mg/kg daily dose. Consider eventual transition to coumadin (NOAC too expensive per patient) or IVC filter. Will get opinion of president & ceo- has seen Dr Irizarry in the past. Check ferritin, retic, vitamin b12 and folate. This was discussed with patient and later with son on the phone She is DNRCCA and no mechanical ventilation for respiratory distress either. VTE Prophylaxis: Patient is already anti-coagulated. Disposition: Home with [facility] Plan of care discussed with: Patient, Family/Other: son and RN SIGNATURE: Jose Maria Mittal MD PATIENT NAME: Dia Mccullough DATE: October 09, 2017 TIME: 1:33 PM PAGER/CONTACT #: [phone] Previous Version Shawna Henning MD 10/09/2017 2:43 PM Signed Patient seen and Heme issues discussed with patient and son. Consult dictated. 1. Patient doing well on Lovenox. 2. Keep current dose. 70 mg daily. 3. Hemostatic decisions will be based on surgeons decision in regard to surgery. Will facilitate the surgeons decision. Will follow. MD Randi Cody CHAPLAIN, Chaplain 10/09/2017 2:59 PM Signed SPIRITUALCARE Spiritual Care Visit- Brief Note Name: Dia Mccullough Date: October 09, 2017 Notes: As toddler guide, made intro visit with pt. Listened empathetically to pt's concerns. Reminded pt of 06/12 SC. Ict Developer Signature: CHAPLAIN Wilbert To contact the Spiritual Care Department: Please call [phone] or Page the On-Call Ict Developer at pager [phone] Thank you for the opportunity to be of service. This is an electronically created document. IF PRINTED, PLEASE DO NOT REMOVE FROM THE CHART OR MODIFY PRINTED COPY. Zhane Mcgovern III, MD 10/09/2017 8:19 PM Signed CONSULT: INFECTIOUS DISEASE SERVICE SERVICE DATE: 10/09/2017 SERVICE TIME: 4:02PM REASON FOR CONSULT: Abdominal abscess REQUESTING PHYSICIAN: Dr. Damon PRIMARY CARE PHYSICIAN: Rika Wheeler MD Subjective . 77 year old female who was in [facility] in August for perforated bowel Had refused surgery and actually went home on hospice and on oral antibiotics. Has been receiving blood thinner. Recently had hematoma of the left leg. Per HANDP, she was brought back to [place] ED for abdominal pain. There, it was [...] flagyl. PAST MEDICAL HISTORY Diagnosis Date - Pima disease - Asthma - CKD (chronic kidney [...] HTN (hypertension) - Hypercholesterolemia - Inflammatory polyarthritis ([facility]) Dr. Hansen - Inflammatory polyarthropathy - Normocytic anemia - PE (pulmonary thromboembolism) ([facility]) 01/05/14 Bilat, extensive - Pulmonary [...] Take 1 tablet by mouth once daily. (Chief Controller) Disp: Rfl: 10/07/2017 at Unknown time Current [...] October 09, 2017 TIME: 4:02 PM PAGER: [phone] Randi Koenig MD 10/10/2017 7:10 AM Attested Attestation [...] IANDO: Date 10/09/17 07 - 10/10/17 0659 10/10/17699 - 10/11/17 0659 Shift 3810-7057 8504-9667 5162-6349 24 Hour Total 7523-4857 9139-5093 9262-7332 24 Hour Total I N T A K E PO 240 240 480 PO 240 240 480 IV 1000 1000 LR 1000 1000 Shift Total 5932 375 3855 O U T P U T Urine [...] Leg hematoma, left, initial encounter 10/08/2017 - Pima disease Chronic - Venous insufficiency (chronic) (peripheral) - CKD (chronic kidney disease) stage 3, GFR 30-59 ml/min 11/28/2014 - Pulmonary emboli (HCC) 01/30/2014 Overview Note: clinically resolved - DVT (deep venous thrombosis) ([facility]) 01/08/2014 Overview Note: recurrent 77 [...] colonoscopy in 6-8 weeks after discharge. SIGNATURE: Randi Koenig MD PATIENT NAME: Dia Mccullough DATE: October 10, 2017 TIME: 7:05 AM Pager: [phone] Jose Maria Mittal MD 10/10/2017 11:50 AM Signed DEPARTMENT OF HOSPITAL MEDICINE PROGRESS NOTE SERVICE DATE: 10/10/2017 SERVICE TIME: 11:27 AM Hospital Medicine/Primary Attending: Jose Maria Mittal MD NIGHT AND WEEKEND COVERAGE: After 7pm please page [phone] CHIEF COMPLAINT: left leg hematoma. SUBJECTIVE: No [...] ml/min (11/28/2014) Venous insufficiency (chronic) (peripheral) () Collni disease () Traumatic hematoma of left lower [...] CKD 3-4 Currently wrapped with dressing and DARCY. ? 5. Episode of hematemesis 5 weeks [...] 10, 2017 TIME: 11:27 AM PAGER/CONTACT #: [phone] Zhane Mcgovern III, MD 10/10/2017 2:52 PM [...] October 10, 2017 TIME: 2:48 PM PAGER: [phone] Teetee Mendez RN, RN 10/10/2017 10:04 PM Addendum Sound paged to notify that the patient is requesting something for anxiety. Ativan 0.25 mg ordered once by AMMY Figueroa. AMMY Figueroa of [facility] notified that the patient received half of the dose of meropenem and then refused the other half related to GI upset. Previous Version Kaycee Figueroa APRN.AMMY 10/11/2017 4:00 AM Signed IM [facility] EMERGENCY DEPARTMENT NIGHT TEAM Called by general surgery resident regarding possible per drain in AM after ct complete. She discussed discontinuing lovenox and adding heparin gtt instead overnight. After procedure patient can be placed back on therapeutic lovenox. Discussed change with GAURANG. Kaycee Figueroa CREDIT AND COLLECTION MANAGER [phone] Shauna Pulido MD 10/11/2017 6:43 AM Attested [...] Room Air IANDO: Date 10/10/17699 - 10/11/17 0659 10/11/17699 - 10/12/17 0659 Shift 3929-4860 1120-8262 3347-6180 24 Hour Total 1811-5682 6739-9392 8346-1356 24 Hour Total I N T A [...] Leg hematoma, left, initial encounter 10/08/2017 - Pima disease Chronic - Venous insufficiency (chronic) (peripheral) - CKD (chronic kidney disease) stage 3, GFR 30-59 ml/min 11/28/2014 - Pulmonary emboli ([facility]) 01/30/2014 Overview Note: clinically resolved - DVT (deep venous thrombosis) ([facility]) 01/08/2014 Overview Note: recurrent 77 [...] 11, 2017 6:41 AM [facility] #: Pager: [phone] Previous Version Antione Irizarry MD 10/11/2017 11:43 [...] BS normal EXTREMITIES: left leg- wrapped in darcy. + hematoma. NEURO: No focal deficit. DATA: [...] October 11, 2017 TIME: 8 AM PAGER: [phone] Jose Maria Mittal MD 10/11/2017 9:44 AM Addendum DEPARTMENT OF HOSPITAL MEDICINE PROGRESS NOTE SERVICE DATE: 10/11/2017 SERVICE TIME: 9:22 AM Hospital Medicine/Primary Attending: Jose Maria Mittal MD NIGHT AND WEEKEND COVERAGE: After 7pm please page [phone] CHIEF COMPLAINT: left leg hematoma. Intraabdominal abscess. [...] BS normal EXTREMITIES: left leg- wrapped in darcy. Opened and examined yesterday- has large hematoma [...] ml/min (11/28/2014) Venous insufficiency (chronic) (peripheral) () Collin disease () Traumatic hematoma of left lower [...] for?CKD 3-4 Currently wrapped with dressing and DARCY. ? 5. Episode of hematemesis 5 weeks [...] 11, 2017 TIME: 9:22 AM PAGER/CONTACT #: [phone] Previous Version Chaplain Daley Chaplain 10/11/2017 12:05 PM Signed [facility] Spiritual Care Visit- Brief Note Name: Dia Mccullough Date: October 11, 2017 Notes: Per PT has multiple health issues and was scheduled for a test. She looked to be calm, took a prayer and was thankful for the [place] support. Ict Developer Signature: Chaplain Thuy To contact the Spiritual Care Department: Please call [phone] or Page the On-Call Ict Developer at pager [phone] Thank you for the opportunity to be of service. This is an electronically created document. IF PRINTED, PLEASE DO NOT REMOVE FROM THE CHART OR MODIFY PRINTED COPY. Chaplain Daley Chaplain 10/11/2017 12:06 PM Signed Spiritual Care Record ? Anointing/[place] PATIENT NAME: Dia Mccullough DATE: October 11, 2017 NOTE: Patient was anointed by Fr. ireland from [facility] on (date): 10/11/17. Signature: Chaplain Thuy Question? Please contact the Spiritual Care Department for assistance. This is an electronically created document. IF PRINTED, PLEASE DO NOT REMOVE FROM THE CHART OR MODIFY PRINTED COPY. Estrella Gómez RN, RN 10/11/2017 1:39 PM Signed [facility] NURSE PROGRESS NOTE SERVICE DATE: 10/11/2017 SERVICE [...] scanned documents. Patient seen by Carol Neal LAUNDERER HAND and lacey RN. Left lower leg hematoma with area of congealed blood and distal fluid filled area. Xeroform, dry gauze dressing, and DARCY wrap daily. Plastic Surgery consulted for hematoma evacuation. Wound care to follow. SIGNATURE: Laly Justice RN PATIENT NAME: Dia Mccullough DATE: October 11, 2017 TIME: 3:13 PM CONTACT#: [id number] Misael Wei MD 10/11/2017 3:38 PM Signed [...] 2017 TIME: 3:22 PM PAGER/CONTACT #: [phone] Timothy Rush MD 10/11/2017 3:56 PM Signed UPDATED [...] Medical Record dated 10/08/2017 @ 11:51 PM. Timothy Rush MD 10/11/2017 4:31 PM Signed INTERVENTIONAL RADIOLOGY POST PROCEDURE NOTE DATE: 10/11/17 NAME: Dia Mccullough LOG ID: [id number] Pre-Procedure Diagnosis: Pelvic abscess Logistics Planner: Surgeon(s) and Role: * Timothy Rush - Primary Procedure: CT guided placement [...] BS normal EXTREMITIES: left leg- wrapped in darcy. + hematoma. NEURO: No focal deficit. DATA: [...] October 12, 2017 TIME: 8 AM PAGER: [phone] Shauna Pulido MD 10/12/2017 9:21 AM Attested [...] Air IANDO: Date 10/11/17699 - 10/12/1765810/12/17699 - 10/13/1759 Shift 2667-5755 9354-9230 4980-4740 24 Hour Total 8298-0307 4557-4930 6186-1984 24 Hour Total I N T A K E PO 360 120 480 PO 360 120 480 IV 1100 1100 1000 1000 LR 1000 1000 1000 1000 Meropenem (Merrem) 100 100 Irrigants 5 5 Irrigant/Flush Amount In (Drain/Tube 10/11/17 Toby Sherwood Left Lower Quadrant Abdomen Drain #1) 5 5 Shift Total 1301 248 2168 1000 1000 O U T P U [...] Leg hematoma, left, initial encounter 10/08/2017 - Pima disease Chronic - Venous insufficiency (chronic) (peripheral) - CKD (chronic kidney disease) stage 3, GFR 30-59 ml/min 11/28/2014 - Pulmonary emboli (HCC) 01/30/2014 Overview Note: clinically resolved - DVT (deep venous thrombosis) (HCC) 01/08/2014 Overview Note: recurrent 77 year old female with diverticulitis and presacral fluid/gas collection. -Regular diet - Continue SOFIA drain - Abx per ID - IR plans CT pelvis with abscessogram in 1 week. - Therapeutic lovenox per hematology - she will need to have an outpatient colonoscopy in 6-8 weeks after discharge. Shauna Pulido MD General Surgery PGY-4 October 12, 2017 9:21 AM [facility] #: Pager: [phone] Joan Masters RN, RN 10/12/2017 10:02 AM Signed CARE MANAGEMENT: ASSESSMENT AND DISCHARGE PLAN SERVICE DATE: 10/12/2017 SERVICE TIME: 955 PRIMARY CARE PHYSICIAN: Rika Wheeler MD ADMISSION STATUS: Inpatient Needs Prior to Discharge: Wound Care;Home Care Order;OT/PT Evaluation MEDICAL: Patient/Program Services Assistant Stated Goals: To improve my functional status [...] Wheelchair Has the Patient Been in a [facility] Facility in the Past 30 days? No [...] 0 I feel financially burdened by my [id number] expenses for my prescription medication: Disagree mostly [...] Yes HHC POTENTIAL TRANSITION PLANS Home Home Prison OT/PT Chart reviewed, spoke with RN. Spoke with pt at bedside who reports she is from a single story home alone, but has family support. Would like [facility] for wound care and would be agreeable to home PT/OT if needed. Await PT/OT eval (ordered) for further planning. SIGNATURE: Joan Masters RN PATIENT NAME: Dia Mccullough DATE: October 12, 2017 TIME: 9:56 AM PAGER/CONTACT #: [phone] Lacy Valdez MD 10/12/2017 8:12 PM Signed [...] hematoma. PAST MEDICAL HISTORY Diagnosis Date - Pima disease - Asthma - CKD (chronic kidney [...] - Normocytic anemia - PE (pulmonary thromboembolism) ([facility]) 01/05/14 Bilat, extensive - Pulmonary [...] Take 1 tablet by mouth once daily. 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 She understands this [...] 2017 TIME: 1:46 PM PAGER/CONTACT #: [phone] ASHLEY Medina/Marina 10/12/2017 2:52 PM Signed Occupational Therapy Evaluation SERVICE DATE: 10/12/2017 SERVICE TIME: 1336 to 1406 ROOM: [id number] Recommended Discharge Disposition: Subacute/SNF Recommended Discharge Disposition [...] evaluation was minimal/moderate, comorbidities affecting occupational performance: Collin's, CKD, DVT/PE, fibromyalgia, HTN, R hip endo [...] Weakness (generalized);Unsteadiness on feet Interventions Provided: Evaluation;Self Prison Management (27677) $ Evaluation-Moderate (32065) Billed Units: 1 unit Self Prison Management (47787) Treatment Minutes: 14 1 unit Skilled Intervention(s): [...] was brought here for surgical eval from [place], but declined operative intervention and requested to [...] more bleeding, and she went to the [place] ED this morning. She was discharged back home after wound evaluation and no finding of circulatory compromise. Her son then brought her back to the ED with a concern over abdominal pain and insistent on hospitalization per [place] ED notes. Eval included CT abdomen which showed a 5 cm abscess/phlegmon in the same area as the original perforation, and she was recommended to be transferred to have IR evaluation of percutaneous drainage. 10/11 Procedure: CT guided placement of abscess drainage catheter 77 year old female with diverticulitis and presacral fluid/gas collection. Continues SOFIA drain Active Hospital Problems Diagnosis - Intra-abdominal abscess (HCC) - Traumatic hematoma of left lower leg - Leg hematoma, left, initial encounter - Collin disease - Venous insufficiency (chronic) (peripheral) - CKD (chronic kidney disease) stage 3, GFR 30-59 ml/min - Pulmonary emboli (HCC) clinically resolved - DVT (deep venous thrombosis) (HCC) recurrent PAST MEDICAL HISTORY Diagnosis Date - Pima disease - Asthma - CKD (chronic kidney [...] HTN (hypertension) - Hypercholesterolemia - Inflammatory polyarthritis ([facility]) Dr. Hansen - Inflammatory polyarthropathy - Normocytic anemia - PE (pulmonary thromboembolism) ([facility]) 01/05/14 Bilat, extensive - Pulmonary [...] Post acute placement Relevant Past Medical History: Pima's, CKD, DVT/PE, fibromyalgia, HTN, R hip endo 2013 back sx, Patient Report: Pt in room cooperative and asking to get out of bed. Pain: 8/10 L LE after movement Home Environment Patient Lives With: Self/Alone Assistance Available: multimedia services manager (Dtr nearby) Entry To Home: No Stairs [...] complete details for this therapy evaluation/treatment. SIGNATURE: ASHLEY Medina/Marina PATIENT NAME: Dia Mccullough DATE: October 12, 2017 TIME: 2:45 PM PAGER: [phone] Karin Dow MD 10/12/2017 6:00 PM Signed DEPARTMENT OF HOSPITAL MEDICINE PROGRESS NOTE SERVICE DATE: 10/12/2017 SERVICE TIME: 3:16 PM Hospital Medicine/Primary Attending: Karin Dow MD NIGHT AND WEEKEND COVERAGE: From 7am - 7pm, please call [phone] After 7pm, please call cross cover pager #[phone] Subjective INTERVAL HPI: Patient seen and examined. [...] BS normal EXTREMITIES: left leg- wrapped in darcy. Opened and examined yesterday- has large hematoma [...] lovenox for?CKD 3-4, continue with dressing and DARCY. ? 5. Episode of hematemesis 5 weeks [...] 10/08/172299 vte non-pharmacologic prophylaxis - none indicated (hi,pr) 10/08/172299 vte current anticoag therapy (hi,pr) VTE Prophylaxis: VTE prophylaxis appropriate Disposition: SNF Plan of care discussed with: Patient SIGNATURE: Karin Dow MD PATIENT NAME: Dia Mccullough DATE: October 12, 2017 TIME: 3:16 PM PAGER/CONTACT #: [phone] etx [phone] Joan Masters, RN, RN 10/12/2017 3:22 PM Signed CARE MANAGEMENT PROGRESS NOTE SERVICE DATE: 10/12/2017 SERVICE TIME: 1521 LOS: 1 day Needs Prior to Discharge: Accepting Facility;Bed Availability;Precertification;Discharge Transportation Spoke with Pt after PT/OT eval, pt agreeable to SNF at [facility]. Would like [facility] as first choice. Will need precert. SIGNATURE: Joan Masters RN PATIENT NAME: Dia Mccullough DATE: October 12, 2017 TIME: 3:21 PM PAGER/CONTACT #: [phone] Radha Aceves, PT 10/12/2017 3:38 PM Signed Physical Therapy Evaluation SERVICE DATE: 10/12/2017 SERVICE TIME: 1455 to 1520 ROOM: [id number] Recommended Discharge Disposition: Subacute/SNF Justification For [...] gait and mobility-other Interventions Provided: Evaluation;Therapeutic Activity (32514) $ Evaluation-Low (06456) Billed Units: 1 unit Therapeutic Activity (36162) Treatment Minutes: 9 1 unit Skilled Intervention(s): [...] CODE: PT 6 Clicks Score: 17 (10/12/17 061) Mobility: Walking and Moving Around Current Status [...] was brought here for surgical eval from [facility], but declined operative intervention and requested to [...] more bleeding, and she went to the [facility] ED this morning. ?She was discharged back home after wound evaluation and no finding of circulatory compromise. ?Her son then brought her back to the ED with a concern over abdominal pain and insistent on hospitalization per [facility] ED notes. ?Eval included CT abdomen which showed a 5 cm abscess/phlegmon in the same area as the original perforation, and she was recommended to be transferred to have IR evaluation of percutaneous drainage.??? Reason for Physical Therapy Consult : weakness Relevant Past Medical History: Collin's, CKD, DVT/PE, fibromyalgia, HTN, R hip endo 2013 back sx, Active Hospital Problems Diagnosis - Intra-abdominal abscess (HCC) - Traumatic hematoma of left lower leg - Leg hematoma, left, initial encounter - Collin disease - Venous insufficiency (chronic) (peripheral) - CKD (chronic kidney disease) stage 3, GFR 30-59 ml/min - Pulmonary emboli (HCC) clinically resolved - DVT (deep venous thrombosis) (HCC) recurrent PAST MEDICAL HISTORY Diagnosis Date - Pima disease - Asthma - CKD (chronic kidney [...] - Normocytic anemia - PE [facility]pulmonary thromboembolism) [facility] 01/05/14 Bilat, extensive - Pulmonary [...] Environment Patient Lives With: Self/Alone Assistance Available: multimedia services manager (Dtr nearby) Entry To Home: No Stairs [...] 12, 2017 TIME: 3:33 PM PAGER/CONTACT #: [phone] Summer Farias, Dockworker 10/12/2017 3:45 PM Signed SNF referral sent to [facility] Debbie Hilton RN, RN 10/13/2017 11:09 AM Signed Received message through Joan Masters, Striker Off that [facility] will be able to accept pt at [...] non-tender, BS normal, No masses or organomegaly. SOFIA drain c/d/i EXTREMITIES: Extensive bruising, LLE wrapped NEURO: Grossly normal cognition, motor function, and cranial nerves III-XII DATA: Diagnostic tests reviewed for today's visit: Most recent labs and imaging results. Assessment/Plan 1. Intra-abdominal Abscess 2/2 Complicated Diverticulitis - await ID/Sens, currently with SOFIA drain and on meropenem. Abscessogram next week per IR. 2. Acute LLE hematoma - large, evaluated by Plastics and non-operative mgmt being pursued. 3. Hypercoag State with Mult DVT/PE - currently on once daily therapeutic Lovenox 4. A/C Blood Loss Anemia - 2/2 #2. Stable H/H, follow. 5. CKF S3 6. Collin's Dz - prednisone 7. PMR/Inflammatory Polyarthritis Medication and Non-Pharmacologic VTE Prophylaxis/Anticoagulants Anticoagulant AND Antiplatelet Medications Start Dose Route Frequency Ordered Stop 10/11/17 1800 enoxaparin 70 mg injection (LOVENOX) 1 mg/kg/dose SUBCUTANEOUS EVERY 24 HOURS 10/11/17 1736 -- 10/08/17 2300 vte non-pharmacologic prophylaxis - none indicated (hi,pr) 10/08/17 230 vte current anticoag therapy (hi,pr) VTE Prophylaxis: VTE prophylaxis appropriate SIGNATURE: Lory Garces MD PATIENT NAME: Dia Mccullough DATE: October 13, 2017 TIME: 11:11 AM PAGER: Vincent Hilton, RN, RN 10/13/2017 2:45 PM Signed Spoke with Allie Mcallister at [facility]. She will start precert for pt for [...] I recommend continued iv antibiotic therapy at [facility] at least initially. Pt declines, wants to be treated with oral atbs. Discussed at length with her including risk of treatment failure. She understands. Will change to po augmentin, cipro, and fluconazole. Her augmentin reaction was upset stomach, no other allergic symptoms. Could go to [facility] on these. Has follow up abscessogram in Radiology scheduled for 1 week per her report. Will need to stay on atbs until abscess resolved. If discharged, should have FU appt with me in about 4 weeks. D/W [facility]. Resolved Problems: * No resolved hospital problems. * SIGNATURE: Misael eWi MD PATIENT NAME: Dia Mccullough DATE: October 14, 2017 TIME: 12:15 PM PAGER/CONTACT #: [phone] Previous Version Lory Garces MD 10/14/2017 12:52 [...] non-tender, BS normal, No masses or organomegaly. SOFIA drain c/d/i EXTREMITIES: Extensive bruising, LLE wrapped NEURO: Grossly normal cognition, motor function, and cranial nerves III-XII DATA: Diagnostic tests reviewed for today's visit: Most recent labs and imaging results. Assessment/Plan 1. Intra-abdominal Abscess 2/2 Complicated Diverticulitis - Rx with SOFIA drain and on meropenem in-house. Patient refuses [...] follow. ? 5. CKF S3 ? 6. Pima's Dz - prednisone ? 7. PMR/Inflammatory Polyarthritis Medication and Non-Pharmacologic VTE Prophylaxis/Anticoagulants Anticoagulant AND Antiplatelet Medications Start Dose Route Frequency Ordered Stop 10/11/17 1800 enoxaparin 70 mg injection (LOVENOX) 1 mg/kg/dose SUBCUTANEOUS EVERY 24 HOURS 10/11/17 1736 -- 10/08/172299 vte non-pharmacologic prophylaxis - none indicated (hi,oh) 10/08/17 230 vte current anticoag therapy (hi,pr) VTE Prophylaxis: VTE prophylaxis appropriate SIGNATURE: Lory Garces MD PATIENT NAME: Dia Mccullough DATE: October 14, 2017 TIME: 12:49 PM PAGER: Vincent Hilton, RN, RN 10/14/2017 2:41 PM Signed Spoke with Allie @ [facility]. They cancelled precert for this patient thinking she would not come until next week. Asked that they get new precert. Lory Garces MD 10/14/2017 2:45 PM Signed DISCHARGE SUMMARY PATIENT NAME: Dia Mccullough Admission Information Admission Information ADMIT DATE: 10/08/2017 DISCHARGE DATE: 10/14/2017 MY DOCTORS AND MEDICAL TEAM: My Main Hospital Doctor: Lory Garces Primary Care Provider: Rika Wheeler MD My Medical Team Members: Treatment [...] GFR 30-59 ml/min Venous insufficiency (chronic) (peripheral) Pima disease Traumatic hematoma of left lower leg Leg hematoma, left, initial encounter Resolved Problems: * No resolved hospital problems. * OPERATIONS PERFORMED WHILE IN THE HOSPITAL: None IMPORTANT TEST/PROCEDURES: No procedures performed TEST RESULTS NOT AVAILABLE AT THIS TIME: No pending results Discharge Disposition Discharge Disposition: [facility] Facility - Greater than 30 Days Activity When You Leave the Hospital Resume pre-hospital activity Diet Instructions Resume your pre-hospital diet Follow Up Appointments Follow-Up Appointment When: In 4 weeks Misael Wei [phone] [place] [address] [facility] [address] PCP Requested Referral Follow-Up Appointment When: In 1 week Rika Wheeler [phone] [address] [facility] [address] PCP Requested Referral Additional Provider to Provider Information: 1. ?Intra-abdominal Abscess 2/2 Complicated Diverticulitis - Rx with SOFIA drain and on meropenem in-house. ?Patient refuses PICC line and IV anti-biotics despite d/w me and ID. Cx growing Klebsiella, Clostridium, Yeast, and unknown GPC, and ID changed abx to Augmentin, Cipro, and Fluconazole. Rx for at least 4 weeks and through resolution of abscess. Abscessogram not able to be performed due to insurance reasons at [facility], d/w patient, and she would prefer to still go to [facility] and get CT scan only even though [...] follow. ? 5. ?CKF S3 ? 6. ?Pima's Dz - prednisone ? 7. ?PMR/Inflammatory Polyarthritis FOLLOW-UP APPOINTMENTS ALREADY SCHEDULED WITH A [facility] PROVIDER: No future appointments. DISCHARGE MEDICATION: Current [...] October 14, 2017 TIME: 2:43 PM Maty Aceves, RN, RN 10/14/2017 6:23 PM Addendum 1822- [facility] has not called back stating if the patient has received precert. RN spoke with Joan medicare contact specialist and she states she has not heard anything back from [facility]. Patient updated. 1630-Per medicare contact specialist Debbie Hilton patients precert is no longer active and states that [facility] is working towards new precert for later today. RN and medicare contact specialist updated patient on discharge situation. Previous Version Keya Robles RN, RN 10/15/2017 9:52 AM Signed CARE MANAGEMENT PROGRESS NOTE SERVICE DATE: 10/15/2017 SERVICE TIME:9:49 A.M. Spoke with Allie, staff member at [facility]. They do not have pre-cert at this time so patient is unable to come to them this weekend. The earliest would be Tuesday, if they can obtain if at that time. LOS: 4 days SIGNATURE: Keya Robles RN PATIENT NAME: Dia Mccullough DATE: October 15, 2017 TIME: 9:49 AM PAGER/CONTACT #: [phone] Patsy Kirby MD, MD 10/16/2017 5:52 AM Signed DEPARTMENT OF HOSPITAL MEDICINE PROGRESS NOTE SERVICE DATE: 10/15/2017 SERVICE TIME: 8:18 PM Hospital Medicine/Primary Attending: Patsy Kirby MD Subjective INTERVAL HPI: Pt doing fine, no fever,nausea or vomiting,abdominal pain better.looking forward to therapy at SNF. MEDICATIONS: Reviewed Current Facility-Administered Medications: amoxicillin-clavulanic acid 875 mg tab(s) (AUGMENTIN) 875 mg ORAL q 12 H Misael Wei 875 mg at 10/15/172007 ciprofloxacin HCl 500 mg tab(s) (CIPRO) 500 mg ORAL q 12 H Misael E Bollin 500 mg at 10/15/172007 fluconazole 400 mg tab(s) (DIFLUCAN) 400 mg ORAL DAILY Misael E Bollin 400 mg at 10/15/17 0859 acetaminophen 650 mg tab(s) (TYLENOL) 650 mg ORAL q 4 H PRN Timothy Rush iv contrast (radiology procedure) INTRAVENOUS DIRECTED PRN Timothy Rush enoxaparin 70 mg injection (LOVENOX) 1 mg/kg/dose SUBCUTANEOUS q 24 HR Jose Maria Kyrie 70 mg at 10/15/17 1810 HYDROcodone 5 mg - acetaminophen 325 mg tablet (NORCO) 1 tablet ORAL q 4 H PRN Kaycee (Slip Operator) Carolina 1 tablet at 10/15/17 0857 polyethylene [...] ORAL QID Gold Lyonon 200 mg at 10/15/17 0858 Objective PHYSICAL [...] soft, non-tender, BS normal, No masses palpable ?SOFIA drain c/d/i EXTREMITIES: Extensive bruising, LLE wrapped [...] Leg hematoma, left, initial encounter 10/08/2017 - Pima disease Chronic - Venous insufficiency (chronic) (peripheral) - CKD (chronic kidney disease) stage 3, GFR 30-59 ml/min 11/28/2014 - Pulmonary emboli (HCC) 01/30/2014 Overview Note: clinically resolved - DVT (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 ?Intra-abdominal Abscess 2/2 Complicated Diverticulitis - Rx?with SOFIA drain and on meropenem in-house. ?Patient refuses PICC line and IV anti-biotics despite d/w me and ID. ?Cx growing Klebsiella, Clostridium, Yeast, and unknown GPC, and ?ID changed abx to Augmentin, Cipro, and Fluconazole. ?Rx for at least 4 weeks and through resolution of abscess. ?Abscessogram not able to be performed due to insurance reasons at [facility], d/w patient, and she would prefer to still go to [facility] and get CT scan only even though [...] follow. ? 5. ?CKF S3 ? 6. ?Pima's Dz - prednisone ? ? 7. ?PMR/Inflammatory [...] 2300 vte non-pharmacologic prophylaxis - none indicated (hi,oh) 10/08/17 2300 vte current anticoag therapy (hi,pr) Disposition: SNF,pending precert Plan of care discussed with: Patient and RN SIGNATURE: Patsy Kirby MD PATIENT NAME: Dia Mccullough DATE: October 15, 2017 TIME: 8:18 PM PAGER/CONTACT #: monica castano etx [phone] Patsy Kirby MD, 10/17/2017 3:57 AM Signed DEPARTMENT OF HOSPITAL [...] 650 mg ORAL q 4 H PRN Timothy Rush iv contrast (radiology procedure) INTRAVENOUS DIRECTED PRN Timothy Rush enoxaparin 70 mg injection (LOVENOX) 1 [...] mg tab(s) (DELTASONE) 2.5 mg ORAL DAILY Manuel Gold Clemens 2.5 mg at 10/16/17 1707 [...] soft, non-tender, BS normal, No masses palpable ?SOFIA drain c/d/i EXTREMITIES: Extensive bruising, LLE wrapped [...] ?Intra-abdominal Abscess 2/2 Complicated Diverticulitis - Rx?with SOFIA drain and on meropenem in-house. ?Patient refuses PICC line and IV anti-biotics despite d/w me and ID. ?Cx growing Klebsiella, Clostridium, Yeast, and unknown GPC, and ?ID changed abx to Augmentin, Cipro, and Fluconazole. ?Rx for at least 4 weeks and through resolution of abscess. ?Abscessogram not able to be performed due to insurance reasons at [facility], d/w patient, and she would prefer to still go to [facility] and get CT scan only even though [...] 2300 vte non-pharmacologic prophylaxis - none indicated (hi,oh) 10/08/17 2300 vte current anticoag therapy (hi,pr) Disposition: SNF,pending precert Plan of care discussed with: Patient and RN SIGNATURE: Patsy Kirby MD PATIENT NAME: Dia Mccullough DATE: October 16, 2017 TIME: 10:00 PM PAGER/CONTACT #: monica castano etx [phone] Mal Zavala MD 10/17/2017 4:36 PM Signed [...] rubs, murmurs, or gallops ABDOMEN: abd soft, sofia drain NEURO: Alert, oriented X 3 DATA: [...] Lymph 1.18 - 3.74 thou/cmm 1.39 Abs. Austin 0.27 - 0.70 thou/cmm 0.69 Abs. Eosin [...] Addisons: -cont prednisone [facility] 4 wk of po abx. ID f/u [...] DATE: 10/17/17 NAME: Dia Mccullough LOG ID: [id number] Pre-Procedure Diagnosis: Pelvic abscess, likely 2/2 ruptured diverticulitis, s/p percutaneous drain placement Post Procedure Diagnosis: Same. Logistics Planner: Dr. Rain Hung Procedure: Fluoroscopic guided abscessogram [...] will eval patient today. Anticipate d/c to [facility] once pre-cert approved. SIGNATURE: Kaelyn Hugo RN PATIENT NAME: Dia Mccullough DATE: October 17, 2017 TIME: 11:05 AM PAGER/CONTACT #: [phone] Kaelyn Hugo RN, RN 10/17/2017 11:21 AM Signed CARE MANAGEMENT PROGRESS NOTE SERVICE DATE: 10/17/2017 SERVICE TIME: 1118 LOS: 6 days Spoke with patient at bedside. Patient does not want to wait for insurance approval for [facility] facility. She states that if insurance doesn't approve SNF today then she will just go home. Educated patient on importance of following physical therapy's recommendations for [facility] placement. Patient not agreeable to that plan. Requesting home physical therapy services. Referral sent to [facility]. SIGNATURE: Kaelyn Hugo RN PATIENT NAME: Dia Mccullough DATE: October 17, 2017 TIME: 11:18 AM PAGER/CONTACT #: [phone] Misael Wei MD 10/17/2017 12:51 PM Signed [...] 17, 2017 TIME: 12:44 PM PAGER/CONTACT #: [phone] Nadege Hansen PTA 10/17/2017 3:33 PM Attested Attestation signed by Carlos Enrique (Pt) Justin at 10/17/2017 3:59 PM I reviewed and agree with the documentation corresponding to this therapy visit. SIGNATURE: Carlos Enrique Anderson, PT DATE: October 17, 2017 TIME: 3:59 PM Physical Therapy Treatment SERVICE DATE: 10/17/2017 SERVICE TIME: 1445 to 1508 ROOM: [id number] Recommended Discharge Disposition: Subacute/SNF Justification For Post [...] gait and mobility-other Interventions Provided: Therapeutic Exercise (18747);Therapeutic Activity (79978) Therapeutic Exercise (71297) Treatment Minutes: 13 1 unit Skilled Intervention(s): Instruction in General strenght program: ankle pump, quad set, glute set, adductor set, hip abduction/adduction, heel slide, short arc quad, long arc quad 2 x 10 reps with both legs. Verbal and tactile cuing provided for proper alignment and technique. Therapeutic Activity (81341) Treatment Minutes: 10 1 unit Skilled Intervention(s): [...] Consult : weakness Relevant Past Medical History: Pima's, CKD, DVT/PE, fibromyalgia, HTN, R hip endo 2013 back sx, Patient Report: Has increase throbbing pain to left lower extremity when in dependent position. Home Environment Patient Lives With: Self/Alone Assistance Available: multimedia services manager (Dtr nearby) Entry To Home: No Stairs [...] 17, 2017 TIME: 3:16 PM PAGER/CONTACT #: [phone] Kaelyn Hugo RN, RN 10/17/2017 4:17 PM [...] 17, 2017 TIME: 4:16 PM PAGER/CONTACT #: [phone] Kaelyn Hugo RN, RN 10/18/2017 10:32 AM Signed CARE MANAGEMENT PROGRESS NOTE SERVICE DATE: 10/18/2017 SERVICE TIME: 1031 LOS: 7 days Chart reviewed. Received auth from [facility]. Transport arranged for 1 pm via [employer]. Patient and patient's son agreeable with plan. RN notified. SIGNATURE: Kaelyn Hugo RN PATIENT NAME: Dia Mccullough DATE: October 18, 2017 TIME: 10:31 AM PAGER/CONTACT #: [phone] Erika Mckeon MD, 10/18/2017 7:59 PM Signed DISCHARGE SUMMARY PATIENT NAME: Dia Mccullough ADMISSION DATE: 10/08/2017 DISCHARGE DATE: 10/18/2017 ATTENDING PHYSICIAN: No att. providers found REASON FOR HOSPITALIZATION: Intraabdominal abscess DISCHARGE DIAGNOSES 1. Intra abd abscess 2/2 complicated diverticulitis: 2. Sigmoid diverticulitis 3. Recent hx of DVT and PE 4. LLE Hematoma: ? 5. Anemia 6. CKD stage 3 7. Pima's disese CONSULTATION TEAMS DURING HOSPITALIZATION: ID, OPERATIONS DURING HOSPITALIZATION: None PROCEDURES DURING HOSPITALIZATION: No procedures performed HOSPITAL COURSE: 77 yrs old female who was admitted on 10/11/2017 for abd pain, N+/V+, she left leg hematoma, and intraabdominal abscess which is from acute sigmoid diverticulitis. She was started on broad spectrum antibiotics of Meropenum and ID, Surgery, Hemo/Oncology are consulted. She underwent abscessogram SOFIA catheter placed, her abdominal pain, nausea and [...] rubs, murmurs, or gallops ABDOMEN: abd soft, sofia drain NEURO: Alert, oriented X 3 ? [...] tablet Comments: Reason for Stopping: DISCHARGE DISPOSITION: [facility] FOLLOW-UP APPOINTMENTS ALREADY SCHEDULED WITH A [facility] PROVIDER No future appointments. TIME OF CARE: Discharge Management: I personally spent greater than 30 minutes involved in the discharge management of this patient. SIGNATURE: Erika Mckeon MD PAGER/CONTACT #: DATE: October 18, 2017 TIME: 7:36 PM CBC W/DIFF, AUTOMATED Collected: 10/19/2017 Status: F Source: [facility] 12:00 AM [facility] REPOSITORY Order Comment: RESULT(S) PREVIOUSLY REPORTED ON [...] [facility] [address] [place], [address] PROTHROMBIN TIME W/INR Collected: 10/19/2017 Status: F Source: [facility] 12:00 AM [facility] REPOSITORY Order Comment: RESULT(S) PREVIOUSLY REPORTED ON MANUAL REQUISITION DURING DOWNTIME. TYPE CODE TESTS RESULT OUT OF RANGE REFERENCE UNITS LAB L300.4150 11.7-14.9 SECONDS High PROTIME 15.2 LAB L300.4200 Normal INR 1.2 Performed By: #### L300.3900 #### [facility] [address] [place], [address] BASIC METABOLIC Collected: 10/19/2017 Status: F Source: [facility] PROFILE (BMP) 12:00 AM [facility] REPOSITORY Order Comment: RESULT(S) PREVIOUSLY REPORTED ON [...] #### [facility] [address] [place] [place], [address] CNDS Observed: 10/18/2017 Status: COMPLETED Source: [facility] 1:30 PM [facility] OTHER [facility] REPOSITORY HNO ID: [id number] Author: Erika Mckeon MD Service: Hospital Medicine Author Type: Physician Type: Discharge Summaries Filed: 10/18/2017 7:59 PM Note Text: DISCHARGE SUMMARY PATIENT NAME: Dia A Jamel ADMISSION DATE: 10/08/2017 DISCHARGE DATE: 10/18/2017 ATTENDING PHYSICIAN: No att. providers found REASON FOR HOSPITALIZATION: Intraabdominal abscess DISCHARGE DIAGNOSES 1. Intra abd abscess 2/2 complicated diverticulitis: 2. Sigmoid diverticulitis 3. Recent hx of DVT and PE 4. LLE Hematoma: ? 5. Anemia 6. CKD stage 3 7. Collin's disese CONSULTATION TEAMS DURING HOSPITALIZATION: ID, OPERATIONS DURING HOSPITALIZATION: None PROCEDURES DURING HOSPITALIZATION: No procedures performed HOSPITAL COURSE: 77 yrs old female who was admitted on 10/11/2017 for abd pain, N+/V+, she left leg hematoma, and intraabdominal abscess which is from acute sigmoid diverticulitis. She was started on broad spectrum antibiotics of Meropenum and ID, Surgery, Hemo/Oncology are consulted. She underwent abscessogram SOFIA catheter placed, her abdominal pain, nausea and [...] rubs, murmurs, or gallops ABDOMEN: abd soft, sofia drain NEURO: Alert, oriented X 3 ? [...] tablet Comments: Reason for Stopping: DISCHARGE DISPOSITION: [facility] FOLLOW-UP APPOINTMENTS ALREADY SCHEDULED WITH A [facility] PROVIDER No future appointments. TIME OF CARE: Discharge Management: I personally spent greater than 30 minutes involved in the discharge management of this patient. SIGNATURE: Erika Mckeon MD PAGER/CONTACT #: DATE: October 18, 2017 TIME: 7:36 PM CASE MANAGEM Observed: 10/18/2017 Status: COMPLETED Source: [place] 10:31 AM CLINIC OTHER CAMPUS REPOSITORY O ID: [id number] Author: Kaelyn (Gaurang) GAURANG Hugo Service: Care Management Author Type: Registered Nurse Type: Care Mgt Progress Note Filed: 10/18/2017 10:32 AM Note Text: CARE MANAGEMENT PROGRESS NOTE SERVICE DATE: 10/18/2017 SERVICE TIME: 1031 LOS: 7 days Chart reviewed. Received auth from [facility]. Transport arranged for 1 pm via [employer]. Patient and patient's son agreeable with plan. RN notified. SIGNATURE: Kaelyn Hugo RN PATIENT NAME: Dia Mccullough DATE: October 18, 2017 TIME: 10:31 AM PAGER/CONTACT #: [phone] PROTIME Collected: 10/18/2017 Status: F Source: [facility] 6:20 AM [facility] REPOSITORY TYPE CODE TESTS RESULT OUT OF REFERENCE UNITS RANGE LAB PTI(LOINC) 9.3-11.9 sec Prothrombin Time 10.4 LAB INR(LOINC) INR 0.98 Result Comment: Standard Therapy 2.0-3.0 High Dose 2.5-3.5 Performed By: #### PT #### [facility] [address] [id number] CASE MANAGEM Observed: 10/17/2017 Status: COMPLETED Source: [place] 4:16 PM [facility] REPOSITORY HNO ID: [id number] Author: Kaelyn Hugo RN Service: Care Management Author Type: Registered Nurse [...] 17, 2017 TIME: 4:16 PM PAGER/CONTACT #: [phone] THERAPY NT Observed: 10/17/2017 Status: COMPLETED Source: [facility] 3:15 PM [facility] REPOSITORY HNO ID: [id number] Author: Nadege Hansen Service: Physical Therapy Author Type: Revenue Cycle Specialist Type: Therapy (PT/OT/Speech/Resp) Filed: 10/17/2017 3:33 PM Note Text: Attestation signed by Carlos Enrique (Pt) Justin at 10/17/2017 3:59 PM I reviewed and agree with the documentation corresponding to this therapy visit. SIGNATURE: Carlos Enrique Anderson PT DATE: October 17, 2017 TIME: 3:59 PM Physical Therapy Treatment SERVICE DATE: 10/17/2017 SERVICE TIME: 1445 to 1508 ROOM: [id number] Recommended Discharge Disposition: Subacute/SNF Justification For [...] gait and mobility-other Interventions Provided: Therapeutic Exercise (41461);Therapeutic Activity (76194) Therapeutic Exercise (37046) Treatment Minutes: 13 1 unit Skilled Intervention(s): Instruction in General strenght program: ankle pump, quad set, glute set, adductor set, hip abduction/adduction, heel slide, short arc quad, long arc quad 2 x 10 reps with both legs. Verbal and tactile cuing provided for proper alignment and technique. Therapeutic Activity (95672) Treatment Minutes: 10 1 unit Skilled Intervention(s): [...] Consult : weakness Relevant Past Medical History: Collin's, CKD, DVT/PE, fibromyalgia, HTN, R hip endo 2013 back sx, Patient Report: Has increase throbbing pain to left lower extremity when in dependent position. Home Environment Patient Lives With: Self/Alone Assistance Available: multimedia services manager (Dtr nearby) Entry To Home: No Stairs [...] 17, 2017 TIME: 3:16 PM PAGER/CONTACT #: [phone] CONSULT PROG Observed: 10/17/2017 Status: COMPLETED Source: [place] 12:44 PM CLINIC OTHER CAMPUS REPOSITORY HNO ID: [id number] Author: Misael Wei Service: Infectious Disease Author [...] CREAT 1.23* 1.36* No results found for: [facility] Impression/Recommendations Principal Problem: Intra-abdominal abscess (HCC) POA: [...] 17, 2017 TIME: 12:44 PM PAGER/CONTACT #: [phone] CASE MANAGEM Observed: 10/17/2017 Status: COMPLETED Source: [place] 11:18 AM [facility] REPOSITORY HNO ID: [id number] Author: Kaelyn SargentRn) GAURANG Hugo Service: Care Management Author Type: Registered Nurse Type: Care Mgt Progress Note Filed: 10/17/2017 11:21 AM Note Text: CARE MANAGEMENT PROGRESS NOTE SERVICE DATE: 10/17/2017 SERVICE TIME: 1118 LOS: 6 days Spoke with patient at bedside. Patient does not want to wait for insurance approval for jail facility. She states that if insurance doesn't approve SNF today then she will just go home. Educated patient on importance of following physical therapy's recommendations for [facility] placement. Patient not agreeable to that plan. Requesting home physical therapy services. Referral sent to S. SIGNATURE: Kaelyn Hugo RN PATIENT NAME: Dia Mccullough DATE: October 17, 2017 TIME: 11:18 AM PAGER/CONTACT #: [phone] CASE MANAGEM Observed: 10/17/2017 Status: COMPLETED Source: [place] 11:04 AM [facility] REPOSITORY HNO ID: [id number] Author: Kaelyn Hugo RN Service: Care Management Author Type: Registered Nurse Type: Care Mgt Progress Note Filed: 10/17/2017 11:06 AM Note Text: CARE MANAGEMENT PROGRESS NOTE SERVICE DATE: 10/17/2017 SERVICE TIME: 1105 LOS: 6 days Chart reviewed. [employer] requesting updated PT/OT evals for pre-cert approval. Paged PT - Khai, who states that [facility] will eval patient today. [facility] once pre-cert approved. SIGNATURE: Kaelyn Hugo RN PATIENT NAME: Dia Mccullough DATE: October 17, 2017 TIME: 11:05 AM PAGER/CONTACT #: [phone] [facility] Observed: 10/17/2017 Status: COMPLETED Source: [place] 10:57 AM [facility] REPOSITORY HNO ID: [id number] Author: Becca Baptiste RN Service: Nursing Author Type: Registered Nurse [...] OP NOT Observed: 10/17/2017 Status: COMPLETED Source: [place] 10:13 AM CLINIC OTHER CAMPUS REPOSITORY HNO ID: [id number] Author: Rain Hung Service: Radiology Author Type: Physician Type: Brief Op Note Filed: 10/17/2017 10:14 AM Note Text: INTERVENTIONAL RADIOLOGY POST PROCEDURE NOTE DATE: 10/17/17 NAME: Dia Mccullough LOG ID: [id number] Pre-Procedure Diagnosis: Pelvic abscess, likely 2/2 ruptured diverticulitis, s/p percutaneous drain placement Post Procedure Diagnosis: Same. Logistics Planner: Dr. Rain Hung Procedure: Fluoroscopic guided abscessogram [...] INJECTION FOR Observed: 10/17/2017 Status: F Source: [facility] [address] CATH 10:02 AM HEALTH SYSTEM [id number] REPOSITORY Performed at [facility] APPROVED BY: RAIN HUNG MD PROCEDURE: FLUOROSCOPIC [...] weeks. PROGRESS Observed: 10/17/2017 Status: COMPLETED Source: [place] 9:57 AM CLINIC OTHER CAMPUS REPOSITORY HNO ID: [id number] Author: Mal Zavala Service: Hospital Medicine Author [...] iv contrast (radiology procedure) INTRAVENOUS DIRECTED PRN [MAR Hold due to Transfer] enoxaparin 70 mg [...] ?F) Temporal Art 100 16 100 % 10/16/17 2005 139/71 36.7 ?C (98.1 ?F) Oral 113 18 98 % 10/16/17 1602 115/63 36.9 ?C (98.4 ?F) Oral 107 18 98 % Body mass index is 30.44 kg/m?. GENERAL: Alert, no distress, cooperative LUNGS: Lungs clear to auscultation. Good diaphragmatic excursion. CARDIAC: Normal S1 and S2; no rubs, murmurs, or gallops ABDOMEN: abd soft, sofia drain NEURO: Alert, oriented X 3 DATA: [...] Lymph 1.18 - 3.74 thou/cmm 1.39 Abs. Austin 0.27 - 0.70 thou/cmm 0.69 Abs. Eosin [...] Addisons: -cont prednisone [facility] [place] of po abx. ID f/u in 4 wk. Cont to monitor cough, if fever or wbc check cxr. Consult: plastic, surgery, ID, heme onc, Mal Zavala MD October 17, 2017 4:36 PM SIGNATURE: Mal Zavala MD PATIENT NAME: Dia Mccullough DATE: October 17, 2017 TIME: 9:57 AM PAGER/CONTACT #: [phone] HEMOGRAM/DIFF Collected: 10/17/2017 Status: F Source: [facility] 3:36 AM HEALTH SYSTEM REPOSITORY TYPE CODE [...] 1.39 LAB MONON(LOIN 0.27-0.70 thou/cmm C) Abs. Austin 0.69 LAB EOSN(LOINC 0.00-0.31 thou/cmm ) Abs. Eosin 0.09 LAB BASON(LOIN 0.01-0.08 thou/cmm C) Abs. Baso 0.02 Performed By: #### CBCD1 #### [address] [address] BASIC PANEL Collected: 10/17/2017 Status: F Source: [facility] 3:36 AM HEALTH SYSTEM REPOSITORY TYPE CODE [...] Gap 7 Performed By: #### P8 #### [facility] [address] [place], [place] [address] MDRD GFR Collected: 10/17/2017 Status: F Source: [facility] 3:36 AM HEALTH SYSTEM REPOSITORY TYPE CODE TESTS RESULT OUT OF RANGE REFERENCE UNITS LAB GFRFN(LOINC >60mL/min/1.73m ) 2 eGFR 42.20 Result Comment: If the patient is , multiply the result by 1.210. Performed By: #### GFR #### [address] [address] PROGRESS Observed: 10/16/2017 Status: COMPLETED Source: [place] 9:57 PM CLINIC OTHER CAMPUS REPOSITORY HNO ID: [id number] Author: Patsy Kirby MD Service: Hospital Medicine [...] H Misael E Bollin 875 mg at 10/16/17 2117 ciprofloxacin HCl 500 mg tab(s) (CIPRO) 500 mg ORAL q 12 H Misael E Bollin 500 mg at 10/16/17 2117 fluconazole 400 mg tab(s) (DIFLUCAN) 400 mg ORAL DAILY Misael E Bollin 400 mg at 10/16/17 0849 acetaminophen 650 mg tab(s) (TYLENOL) 650 mg ORAL q 4 H PRN Timothy Rush iv contrast (radiology procedure) INTRAVENOUS DIRECTED PRN Timothy Rush enoxaparin 70 mg injection (LOVENOX) 1 mg/kg/dose SUBCUTANEOUS q 24 HR Jose Maria Kyrie 70 mg at 10/16/17 1710 HYDROcodone 5 mg - acetaminophen 325 mg tablet (NORCO) 1 tablet ORAL q 4 H PRN Kaycee Zamora) Carolina 1 tablet at 10/15/17 0857 polyethylene glycol 3350 17 g packet (MIRALAX, GLYCOLAX) 17 g ORAL DAILY Jose Maria Magdalenoudhary 17 g at 10/13/17 0828 metoprolol tartrate (short acting) 25 mg tab(s) (LOPRESSOR) 25 mg ORAL q 12 H Jose Maria Kyrie 25 mg at 10/16/17 2117 acetaminophen 650 mg tab(s) (TYLENOL) 650 mg ORAL q 6 H PRN Callie Castle ondansetron orally disintegrating 4 mg tab(s) (ZOFRAN ODT) 4 mg ORAL q 6 H PRN Glod Clemens predniSONE 5 mg tab(s) (DELTASONE) 5 [...] soft, non-tender, BS normal, No masses palpable ?SOFIA drain c/d/i EXTREMITIES: Extensive bruising, LLE wrapped [...] ?Intra-abdominal Abscess 2/2 Complicated Diverticulitis - Rx?with SOFIA drain and on meropenem in-house. ?Patient refuses PICC line and IV anti-biotics despite d/w me and ID. ?Cx growing Klebsiella, Clostridium, Yeast, and unknown GPC, and ?ID changed abx to Augmentin, Cipro, and Fluconazole. ?Rx for at least 4 weeks and through resolution of abscess. ?Abscessogram not able to be performed due to insurance reasons at [place], d/w patient, and she would prefer to still go to [place] and get CT scan only even though [...] non-pharmacologic prophylaxis - none indicated ([place]) 10/08/17 230 vte current anticoag therapy ([place]) Disposition: SNF,pending precert Plan of care discussed with: Patient and RN SIGNATURE: Patsy Kirby MD PATIENT NAME: Dia Mccullough DATE: October 16, 2017 TIME: 10:00 PM PAGER/CONTACT #: monica castano etx [phone] HEMOGRAM/DIFF Collected: 10/15/2017 Status: F Source: [facility] 10:36 PM HEALTH SYSTEM REPOSITORY TYPE CODE [...] 1.06 LAB MONON(LOIN 0.27-0.70 thou/cmm C) Abs. Austin 0.65 LAB EOSN(LOINC 0.00-0.31 thou/cmm ) Abs. Eosin 0.03 LAB BASON(LOIN 0.01-0.08 thou/cmm C) Abs. Baso 0.03 Performed By: #### CBCD1 #### [place] [address] BASIC PANEL Collected: 10/15/2017 Status: F Source: [facility] 10:36 PM HEALTH SYSTEM REPOSITORY TYPE CODE [...] Gap 8 Performed By: #### P8 #### [place] [address] MDRD GFR Collected: 10/15/2017 Status: F Source: [facility] 10:36 PM HEALTH SYSTEM REPOSITORY TYPE CODE TESTS RESULT OUT OF RANGE REFERENCE UNITS LAB GFRFN(LOINC >60mL/min/1.73m ) 2 eGFR 37.58 Result Comment: If the patient is , multiply the result by 1.210. Performed By: #### GFR #### [facility] [address] [place] [address] PROGRESS Observed: 10/15/2017 Status: COMPLETED Source: [place] 8:18 PM CLINIC OTHER CAMPUS REPOSITORY HNO ID: [id number] Author: Patsy Kirby MD Service: Hospital Medicine Author Type: Physician Type: Progress Notes Filed: 10/16/2017 5:52 AM Note Text: DEPARTMENT OF HOSPITAL MEDICINE PROGRESS NOTE SERVICE DATE: 10/15/2017 SERVICE TIME: 8:18 PM Hospital Medicine/Primary Attending: Patsy Kirby MD Subjective INTERVAL HPI: Pt doing fine, no fever,nausea or vomiting,abdominal pain better.looking forward to therapy at [facility]. MEDICATIONS: Reviewed Current Facility-Administered Medications: amoxicillin-clavulanic acid [...] 650 mg ORAL q 4 H PRN Timothy Rush iv contrast (radiology procedure) INTRAVENOUS DIRECTED PRN Timothy Rush enoxaparin 70 mg injection (LOVENOX) 1 mg/kg/dose SUBCUTANEOUS q 24 HR Jose Maria Kyrie 70 mg at 10/15/17 1810 HYDROcodone 5 mg - acetaminophen 325 mg tablet (NORCO) 1 tablet ORAL q 4 H PRN Kaycee (Slip Operator) Carolina 1 tablet at 10/15/17 0857 polyethylene glycol 3350 17 g packet (MIRALAX, GLYCOLAX) 17 g ORAL DAILY Jose Maria Kyrie 17 g at 10/13/17 0828 metoprolol tartrate (short acting) 25 mg tab(s) (LOPRESSOR) 25 mg ORAL q 12 H Jose Maria Kyrie 25 mg at 10/15/172007 acetaminophen 650 mg tab(s) (TYLENOL) 650 mg ORAL q 6 H PRN Callie Tetyuk ondansetron orally disintegrating 4 mg tab(s) (ZOFRAN ODT) 4 mg ORAL q 6 H PRN Gold Richardsontelmabrian predniSONE 5 mg tab(s) (DELTASONE) 5 mg ORAL BID PC Gold Lyonon 5 mg at 10/15/17 1241 predniSONE 2.5 mg tab(s) (DELTASONE) 2.5 mg ORAL DAILY wDINNER Gold Lyonon 2.5 mg at 10/15/[address] 40 mg tab(s) (PROTONIX) 40 mg ORAL DAILY (6 AM) Gold Clemens 40 mg at 10/15/17 0528 saliva substitute combo no.9 15 mL (BIOTENE mouthwash) 15 mL MUCOUS MEMBRANE (TOPICAL MOUTH AND THROAT) 5X/DAY Gold Richardsontelmabrian 15 mL at 10/14/17 0817 benzocaine-menthol 1 Lozenge (CEPACOL) 1 Lozenge MUCOUS MEMBRANE (TOPICAL MOUTH AND THROAT) q 2 H PRN Gold Roger Richardsontelmabrian 0.9% NaCl 3-5 mL 3-5 mL INTRAVENOUS q 12 H Gold Roger Richardsontelmabrian 3 mL at 10/15/172007 lactated ringers infusion [...] soft, non-tender, BS normal, No masses palpable ?SOFIA drain c/d/i EXTREMITIES: Extensive bruising, LLE wrapped [...] Leg hematoma, left, initial encounter 10/08/2017 - Pima disease Chronic - Venous insufficiency (chronic) (peripheral) - CKD (chronic kidney disease) stage 3, GFR 30-59 ml/min 11/28/2014 - Pulmonary emboli (HCC) 01/30/2014 Overview Note: clinically resolved - DVT (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 ?Intra-abdominal Abscess 2/2 Complicated Diverticulitis - Rx?with SOFIA drain and on meropenem in-house. ?Patient refuses PICC line and IV anti-biotics despite d/w me and ID. ?Cx growing Klebsiella, Clostridium, Yeast, and unknown GPC, and ?ID changed abx to Augmentin, Cipro, and Fluconazole. ?Rx for at least 4 weeks and through resolution of abscess. ?Abscessogram not able to be performed due to insurance reasons at [place], d/w patient, and she would prefer to still go to [place] and get CT scan only even though [...] follow. ? 5. ?CKF S3 ? 6. ?Pima's Dz - prednisone ? ? 7. ?PMR/Inflammatory [...] 2300 vte non-pharmacologic prophylaxis - none indicated (hi,pr) 10/08/17 2300 vte current anticoag therapy (hi,pr) Disposition: SNF,pending precert Plan of care discussed with: Patient and RN SIGNATURE: Patsy Kirby MD PATIENT NAME: Dia Mccullough DATE: October 15, 2017 TIME: 8:18 PM PAGER/CONTACT #: monica red etx [phone] CASE MANAGEM Observed: 10/15/2017 Status: COMPLETED Source: [place] 9:49 AM [facility] REPOSITORY HNO ID: [id number] Author: Keya SargentRn) GAURANG Robles Service: Care Management Author Type: Registered Nurse Type: Care Mgt Progress Note Filed: 10/15/2017 9:52 AM Note Text: CARE MANAGEMENT PROGRESS NOTE SERVICE DATE: 10/15/2017 SERVICE TIME:9:49 A.M. Spoke with Allie, staff member at [facility]. They do not have pre-cert at this time so patient is unable to come to them this weekend. The earliest would be Tuesday, if they can obtain if at that time. LOS: 4 days SIGNATURE: Keya Robles RN PATIENT NAME: Dia Mccullough DATE: October 15, 2017 TIME: 9:49 AM PAGER/CONTACT #: [phone] NURSING PROG Observed: 10/14/2017 Status: COMPLETED Source: [place] 4:30 PM [facility] OTHER [place] REPOSITORY HNO ID: [id number] Author: Maty SargentRn) GAURANG Aceevs Service: Nursing Author Type: Registered Nurse Type: Nursing Progress Note Filed: 10/14/2017 6:23 PM Note Text: 182- [facility] has not called back stating if the patient has received precert. RN spoke with Joan medicare contact specialist and she states she has not heard anything back from [place]. Patient updated. 1630-Per medicare contact specialist Debbie Hilton patients precert is no longer active and states that [facility] is working towards new precert for later today. RN and medicare contact specialist updated patient on discharge situation. CNDS Observed: 10/14/2017 Status: COMPLETED Source: [place] 2:43 PM CLINIC OTHER CAMPUS REPOSITORY HNO ID: [id number] Author: Lory Garces Service: Hospital Medicine Author Type: Physician Type: Discharge Summaries Filed: 10/14/2017 2:45 PM Note Text: DISCHARGE SUMMARY PATIENT NAME: Dia Mccullough Admission Information Admission Information ADMIT DATE: 10/08/2017 DISCHARGE DATE: 10/14/2017 MY DOCTORS AND MEDICAL TEAM: My Main Hospital Doctor: Lory Garces Primary Care Provider: Rika Wheeler MD My Medical Team Members: Treatment [...] GFR 30-59 ml/min Venous insufficiency (chronic) (peripheral) Pima disease Traumatic hematoma of left lower leg Leg hematoma, left, initial encounter Resolved Problems: * No resolved hospital problems. * OPERATIONS PERFORMED WHILE IN THE HOSPITAL: None IMPORTANT TEST/PROCEDURES: No procedures performed TEST RESULTS NOT AVAILABLE AT THIS TIME: No pending results Discharge Disposition Discharge Disposition: [facility] - Greater than 30 Days Activity When You Leave the Hospital Resume pre-hospital activity Diet Instructions Resume your pre-hospital diet Follow Up Appointments Follow-Up Appointment When: In 4 weeks Misael Wei [phone] [address] [facility] [address] [facility] [id number] PCP Requested Referral Follow-Up Appointment When: In 1 week Rika Wheeler [phone] [address] [place] [address] PCP Requested Referral Additional Provider to Provider Information: 1. ?Intra-abdominal Abscess 2/2 Complicated Diverticulitis - Rx with SOFIA drain and on meropenem in-house. ?Patient refuses PICC line and IV anti-biotics despite d/w me and ID. Cx growing Klebsiella, Clostridium, Yeast, and unknown GPC, and ID changed abx to Augmentin, Cipro, and Fluconazole. Rx for at least 4 weeks and through resolution of abscess. Abscessogram not able to be performed due to insurance reasons at [place], d/w patient, and she would prefer to still go to [place] and get CT scan only even though [...] follow. ? 5. ?CKF S3 ? 6. ?Collin's Dz - prednisone ? 7. ?PMR/Inflammatory Polyarthritis FOLLOW-UP APPOINTMENTS ALREADY SCHEDULED WITH A [facility] PROVIDER: No future appointments. DISCHARGE MEDICATION: Current [...] CASE MANAGEM Observed: 10/14/2017 Status: COMPLETED Source: [place] 2:40 PM [facility] REPOSITORY HNO ID: [id number] Author: Debbie SargentRn) GAURANG Hilton Service: Care Management Author Type: Registered Nurse Type: Care Mgt Progress Note Filed: 10/14/2017 2:41 PM Note Text: Spoke with Allie @ [facility]. They cancelled precert for this patient thinking she would not come until next week. Asked that they get new precert. PROGRESS Observed: 10/14/2017 Status: COMPLETED Source: [place] 12:49 PM [facility] REPOSITORY HNO ID: [id number] Author: Lory Garces Service: Hospital Medicine Author [...] non-tender, BS normal, No masses or organomegaly. SOFIA drain c/d/i EXTREMITIES: Extensive bruising, LLE wrapped NEURO: Grossly normal cognition, motor function, and cranial nerves III-XII DATA: Diagnostic tests reviewed for today's visit: Most recent labs and imaging results. Assessment/Plan 1. Intra-abdominal Abscess 2/2 Complicated Diverticulitis - Rx with SOFIA drain and on meropenem in-house. Patient refuses [...] ? 4. A/C Blood Loss Anemia - 06/17 #2. Stable H/H, follow. ? 5. CKF S3 ? 6. Pima's Dz - prednisone ? 7. PMR/Inflammatory Polyarthritis Medication and Non-Pharmacologic VTE Prophylaxis/Anticoagulants Anticoagulant AND Antiplatelet Medications Start Dose Route Frequency Ordered Stop 10/11/17 1800 enoxaparin 70 mg injection (LOVENOX) 1 mg/kg/dose SUBCUTANEOUS EVERY 24 HOURS 10/11/17 1736 -- 10/08/17 2300 vte non-pharmacologic prophylaxis - none indicated (hi,pr) 10/08/17 2300 vte current anticoag therapy ([place], [place]) VTE Prophylaxis: VTE prophylaxis appropriate SIGNATURE: Lory Garces MD PATIENT NAME: Dia Mccullough DATE: October 14, 2017 TIME: 12:49 PM PAGER: Red CONSULT PROG Observed: 10/14/2017 Status: COMPLETED Source: [place] 12:14 PM CLINIC OTHER CAMPUS REPOSITORY O ID: [id number] Author: Misael Wei Service: Infectious Disease Author [...] I recommend continued iv antibiotic therapy at [facility] at least initially. Pt declines, wants to [...] 1230 HEMOGRAM/DIFF Collected: 10/14/2017 Status: F Source: [facility] 5:10 AM HEALTH SYSTEM REPOSITORY TYPE CODE [...] 1.47 LAB MONON(LOIN 0.27-0.70 thou/cmm C) Abs. Austin 0.62 LAB EOSN(LOINC 0.00-0.31 thou/cmm ) Abs. Eosin 0.04 LAB BASON(LOIN 0.01-0.08 thou/cmm C) Abs. Baso 0.02 Result Comment: Smear scanned; tech agrees with automated differential Performed By: #### CBCD1 #### [place] [address] BASIC PANEL Collected: 10/14/2017 Status: F Source: [facility] 5:10 AM HEALTH SYSTEM REPOSITORY TYPE CODE [...] Gap 8 Performed By: #### P8 #### [place] [address] MDRD GFR Collected: 10/14/2017 Status: F Source: [facility] 5:10 AM HEALTH SYSTEM REPOSITORY TYPE CODE TESTS RESULT OUT OF RANGE REFERENCE UNITS LAB GFRFN(LOINC >60mL/min/1.73m ) 2 eGFR 56.86 Result Comment: If the patient is , multiply the result by 1.210. Performed By: #### GFR #### [facility] [address] [place], [place] [address] CONSULT PROG Observed: 10/13/2017 Status: COMPLETED Source: [place] 5:37 PM [facility] OTHER CAMPUS REPOSITORY HNO ID: [id number] Author: Misael Wei Service: Infectious Disease Author [...] Imp:Abdominal abscess Rec:Continue meropenem Add fluconazole. Misael Wie MD CASE MANAGEM Observed: 10/13/2017 Status: COMPLETED Source: [place] 2:44 PM [facility] REPOSITORY HNO ID: [id number] Author: Debbie (Rn) GAURANG Hilton Service: Care Management Author Type: Registered Nurse Type: Care Mgt Progress Note Filed: 10/13/2017 2:45 PM Note Text: Spoke with Allie Ericharley at [facility]. She will start precert for pt for transfer to her facillity. PROGRESS Observed: 10/13/2017 Status: COMPLETED Source: [place] 11:11 AM [facility] OTHER CAMPUS REPOSITORY HNO ID: [id number] Author: Lory Garces Service: Hospital Medicine Author [...] non-tender, BS normal, No masses or organomegaly. SOFIA drain c/d/i EXTREMITIES: Extensive bruising, LLE wrapped NEURO: Grossly normal cognition, motor function, and cranial nerves III-XII DATA: Diagnostic tests reviewed for today's visit: Most recent labs and imaging results. Assessment/Plan 1. Intra-abdominal Abscess 2/2 Complicated Diverticulitis - await ID/Sens, currently with SOFIA drain and on meropenem. Abscessogram next week per IR. 2. Acute LLE hematoma - large, evaluated by Plastics and non-operative mgmt being pursued. 3. Hypercoag State with Mult DVT/PE - currently on once daily therapeutic Lovenox 4. A/C Blood Loss Anemia - 2/2 #2. Stable H/H, follow. 5. CKF S3 6. Pima's Dz - prednisone 7. PMR/Inflammatory Polyarthritis Medication and Non-Pharmacologic VTE Prophylaxis/Anticoagulants Anticoagulant AND Antiplatelet Medications Start Dose Route Frequency Ordered Stop 10/11/17 1800 enoxaparin 70 mg injection (LOVENOX) 1 mg/kg/dose SUBCUTANEOUS EVERY 24 HOURS 10/11/17 1736 -- 10/08/17 2300 vte non-pharmacologic prophylaxis - none indicated ([place], [place]) 10/08/17 2300 vte current anticoag therapy ([place], [place]) VTE Prophylaxis: VTE prophylaxis appropriate SIGNATURE: Lory Garces MD PATIENT NAME: Dia Mccullough DATE: October 13, 2017 TIME: 11:11 AM PAGER: Red CASE MANAGEM Observed: 10/13/2017 Status: COMPLETED Source: [place] 11:08 AM [facility] OTHER CAMPUS REPOSITORY HNO ID: [id number] Author: Debbie (Rn) GAURANG Hilton Service: Care Management Author Type: Registered Nurse Type: Care Mgt Progress Note Filed: 10/13/2017 11:09 AM Note Text: Received message through Joan Masters [employer] that [facility] will be able to accept pt at d/c Pt informaed. CASE MANAGEM Observed: 10/12/2017 Status: COMPLETED Source: [place] 3:45 PM [facility] OTHER [facility]AMPUS REPOSITORY HNO ID: [id number] Author: Summer (Specialist) Dinora Service: (none) Author Type: (none) Type: Care Mgt Progress Note Filed: 10/12/2017 3:45 PM Note Text: SNF referral sent to [facility] THERAPY NT Observed: 10/12/2017 Status: COMPLETED Source: [place] 3:33 PM CLINIC OTHER CAMPUS REPOSITORY HNO ID: [id number] Author: Radha (Pt) Yola Service: Physical Therapy Author Type: Physical Therapist Type: Therapy (PT/OT/Speech/Resp) Filed: 10/12/2017 3:38 PM Note Text: Physical Therapy Evaluation SERVICE DATE: 10/12/2017 SERVICE TIME: 1455 to 1520 ROOM: [place] [address] Recommended Discharge Disposition: Subacute/SNF Justification For Post [...] gait and mobility-other Interventions Provided: Evaluation;Therapeutic Activity (23630) $ Evaluation-Low (33144) Billed Units: 1 unit Therapeutic Activity (60719) Treatment Minutes: 9 1 unit Skilled Intervention(s): [...] was brought here for surgical eval from [place], but declined operative intervention and requested to [...] more bleeding, and she went to the [place] ED this morning. ?She was discharged back home after wound evaluation and no finding of circulatory compromise. ?Her son then brought her back to the ED with a concern over abdominal pain and insistent on hospitalization per [place] ED notes. ?Eval included CT abdomen which showed a 5 cm abscess/phlegmon in the same area as the original perforation, and she was recommended to be transferred to have IR evaluation of percutaneous drainage.??? 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 Hansen - Inflammatory polyarthropathy - Normocytic anemia - PE (pulmonary thromboembolism) ([facility]) 01/05/14 Bilat, extensive - Pulmonary [...] Environment Patient Lives With: Self/Alone Assistance Available: multimedia services manager (Dtr nearby) Entry To Home: No Stairs [...] 12, 2017 TIME: 3:33 PM PAGER/CONTACT #: [phone] CASE MANAGEM Observed: 10/12/2017 Status: COMPLETED Source: [facility] 3:21 PM CLINIC OTHER CAMPUS REPOSITORY HNO ID: [id number] Author: Joan (Rn) GAURANG Masters Service: Care Management Author Type: Registered Nurse Type: Care Mgt Progress Note Filed: 10/12/2017 3:22 PM Note Text: CARE MANAGEMENT PROGRESS NOTE SERVICE DATE: 10/12/2017 SERVICE TIME: 1521 LOS: 1 day Needs Prior to Discharge: Accepting Facility;Bed Availability;Precertification;Discharge Transportation Spoke with Pt after PT/OT karen, pt agreeable to SNF at [place]. Would like [facility] as first choice. Will need precert. SIGNATURE: Joan Masters RN PATIENT NAME: Dia Mccullough DATE: October 12, 2017 TIME: 3:21 PM PAGER/CONTACT #: [phone] PROGRESS Observed: 10/12/2017 Status: COMPLETED Source: [facility] 3:16 PM CLINIC OTHER CAMPUS REPOSITORY HNO ID: [id number] Author: Karin Dow Service: Hospital Medicine Author Type: Physician Type: Progress Notes Filed: 10/12/2017 6:00 PM Note Text: DEPARTMENT OF HOSPITAL MEDICINE PROGRESS NOTE SERVICE DATE: 10/12/2017 SERVICE TIME: 3:16 PM Hospital Medicine/Primary Attending: Karin Dow MD NIGHT AND WEEKEND COVERAGE: From 7am - 7pm, please call [phone] After 7pm, please call cross cover pager #[phone] Subjective INTERVAL HPI: Patient seen and examined. [...] BS normal EXTREMITIES: left leg- wrapped in darcy. Opened and examined yesterday- has large hematoma [...] lovenox for?CKD 3-4, continue with dressing and DARCY. ? 5. Episode of hematemesis 5 weeks [...] 2300 vte non-pharmacologic prophylaxis - none indicated (hi,pr) 10/08/17 2300 vte current anticoag therapy ([place], [place]) VTE Prophylaxis: VTE prophylaxis appropriate Disposition: SNF Plan of care discussed with: Patient SIGNATURE: Karin Dow MD PATIENT NAME: Dia Mccullough DATE: October 12, 2017 TIME: 3:16 PM PAGER/CONTACT #: [phone] etx [id number] THERAPY NT Observed: 10/12/2017 Status: COMPLETED Source: [facility] 2:45 PM CLINIC OTHER CAMPUS REPOSITORY O ID: [id number] Author: Hoa Garcia/Emilie Paz Service: Occupational Therapy Author Type: Occupational Therapist Type: Therapy (PT/OT/Speech/Resp) Filed: 10/12/2017 2:52 PM Note Text: Occupational Therapy Evaluation SERVICE DATE: 10/12/2017 SERVICE TIME: 1336 to 1406 ROOM: [id number] Recommended Discharge Disposition: Subacute/SNF Recommended Discharge Disposition Comments: Pt is limited with her mobility and ADL participation due to the L LE hematoma and abdominal pain from her abdominal abcess/drain placement. Pt has been to [facility] in the past and had a [...] evaluation was minimal/moderate, comorbidities affecting occupational performance: Collin's, CKD, DVT/PE, fibromyalgia, HTN, R hip endo [...] Weakness (generalized);Unsteadiness on feet Interventions Provided: Evaluation;Self Prison Management (70423) $ Evaluation-Moderate (20491) Billed Units: 1 unit Self Prison Management (60203) Treatment Minutes: 14 1 unit Skilled Intervention(s): [...] was brought here for surgical eval from [place], but declined operative intervention and requested to [...] more bleeding, and she went to the [place] ED this morning. She was discharged back home after wound evaluation and no finding of circulatory compromise. Her son then brought her back to the ED with a concern over abdominal pain and insistent on hospitalization per [facility] ED notes. Eval included CT abdomen which showed a 5 cm abscess/phlegmon in the same area as the original perforation, and she was recommended to be transferred to have IR evaluation of percutaneous drainage. 10/11 Procedure: CT guided placement of abscess drainage catheter 77 year old female with diverticulitis and presacral fluid/gas collection. 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 Hansen - Inflammatory polyarthropathy - Normocytic anemia - PE (pulmonary thromboembolism) ([facility]) 01/05/14 Bilat, extensive - Pulmonary [...] Post acute placement Relevant Past Medical History: Collin's, CKD, DVT/PE, fibromyalgia, HTN, R hip endo 2013 back sx, Patient Report: Pt in room cooperative and asking to get out of bed. Pain: 8/10 L LE after movement Home Environment Patient Lives With: Self/Alone Assistance Available: multimedia services manager (Dtr nearby) Entry To Home: No Stairs [...] complete details for this therapy evaluation/treatment. SIGNATURE: ASHLEY Medina/Marina PATIENT NAME: Dia Mccullough DATE: October 12, 2017 TIME: 2:45 PM PAGER: [phone] CONSULT PROG Observed: 10/12/2017 Status: COMPLETED Source: [facility] 1:46 PM CLINIC OTHER CAMPUS REPOSITORY HNO ID: [id number] Author: Misael Wei Service: Infectious Disease Author [...] 1230 CONSULT Observed: 10/12/2017 Status: COMPLETED Source: [facility] 11:39 AM CLINIC OTHER CAMPUS REPOSITORY O ID: [id number] Author: Lacy Valdez Service: Plastic Surgery Author [...] hematoma. PAST MEDICAL HISTORY Diagnosis Date - Collin disease - Asthma - CKD (chronic kidney [...] HTN (hypertension) - Hypercholesterolemia - Inflammatory polyarthritis ([facility]) Dr. Hansen - Inflammatory polyarthropathy - Normocytic anemia - PE (pulmonary thromboembolism) ([facility]) 01/05/14 Bilat, extensive - Pulmonary [...] Take 1 tablet by mouth once daily. 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 She understands this will likely take months to heal and she does run the risk of developing an infection of this leg. -Discussed with Dr. Casey. Lacy Valdez MD CASE MGT INIT Observed: 10/12/2017 Status: COMPLETED Source: [facility] 9:55 AM CLINIC OTHER CAMPUS REPOSITORY HNO ID: [id number] Author: Joan (Rn) GAURANG Masters Service: Care Management Author Type: Registered Nurse Type: Care Mgt Initial Assessment Filed: 10/12/2017 10:02 AM Note Text: CARE MANAGEMENT: ASSESSMENT AND DISCHARGE PLAN SERVICE DATE: 10/12/2017 SERVICE TIME: 955 PRIMARY CARE PHYSICIAN: Rika Wheeler MD ADMISSION STATUS: Inpatient Needs Prior to Discharge: Wound Care;Home Care Order;OT/PT Evaluation MEDICAL: Patient/Program Services Assistant Stated Goals: To improve my functional status [...] Wheelchair Has the Patient Been in a [facility] Facility in the Past 30 days? No [...] 0 I feel financially burdened by my [id number] expenses for my prescription medication: Disagree mostly [...] Needs: None FREEDOM OF CHOICE EXPLAINED: Yes [facility] POTENTIAL TRANSITION PLANS Home Home Prison OT/PT Chart reviewed, spoke with RN. Spoke with pt at bedside who reports she is from a single story home alone, but has family support. Would like [facility] for wound care and would be agreeable to home PT/OT if needed. Await PT/OT evwaldemar (ordered) for further planning. SIGNATURE: Joan Masters RN PATIENT NAME: Dia Mccullough DATE: October 12, 2017 TIME: 9:56 AM PAGER/CONTACT #: [phone] CONSULT PROG Observed: 10/12/2017 Status: COMPLETED Source: [place] 9:18 AM [facility] OTHER CAMPUS REPOSITORY O ID: [id number] Author: Shauna Pulido Service: General Surgery Author Type: Resident Type: Consult Progress Note Filed: 10/12/2017 9:21 AM Note Text: Attestation signed by Khai Lira at 10/12/2017 [...] 10/11/17699 - 10/12/1765810/12/17699 - 10/13/17 0659 Shift 0599-1955 2364-7704 6554-1554 24 Hour Total 7324-1120 5543-7679 2212-2908 24 Hour Total I N T A K E PO 360 120 480 PO 360 120 480 IV 1100 1100 1000 1000 LR 1000 1000 1000 1000 Meropenem (Merrem) 100 100 Irrigants 5 5 Irrigant/Flush Amount In (Drain/Tube 10/11/17 [facility] Left Lower Quadrant Abdomen Drain #1) 5 5 Shift Total 1505 733 7310 1000 1000 O U T P U [...] Leg hematoma, left, initial encounter 10/08/2017 - Pima disease Chronic - Venous insufficiency (chronic) (peripheral) - CKD (chronic kidney disease) stage 3, GFR 30-59 ml/min 11/28/2014 - Pulmonary emboli (HCC) 01/30/2014 Overview Note: clinically resolved - DVT (deep venous thrombosis) ([facility]) 01/08/2014 Overview Note: recurrent 77 year old female with diverticulitis and presacral fluid/gas collection. -Regular diet - Continue SOFIA drain - Abx per ID - IR plans CT pelvis with abscessogram in 1 week. - Therapeutic lovenox per hematology - she will need to have an outpatient colonoscopy in 6-8 weeks after discharge. Shauna Pulido MD General Surgery PGY-4 October 12, 2017 9:21 AM [facility] #: Pager: [phone] CONSULT PROG Observed: 10/12/2017 Status: COMPLETED Source: [place] 8:00 AM CLINIC OTHER CAMPUS REPOSITORY HNO ID: [id number] Author: Antione Irizarry Service: Hematology/Oncology Author Type: [...] BS normal EXTREMITIES: left leg- wrapped in darcy. + hematoma. NEURO: No focal deficit. DATA: [...] October 12, 2017 TIME: 8 AM PAGER: [phone] HEMOGRAM/DIFF Collected: 10/12/2017 Status: F Source: [facility] 6:35 AM HEALTH SYSTEM REPOSITORY TYPE CODE [...] 1.21 LAB MONON(LOIN 0.27-0.70 thou/cmm C) Abs. Austin 0.52 LAB EOSN(LOINC 0.00-0.31 thou/cmm ) Abs. Eosin 0.02 LAB BASON(LOIN 0.01-0.08 thou/cmm C) Abs. Baso 0.02 Performed By: #### CBCD1 #### [facility] [address] [address] [address] IMAGE-GUIDED DRAINAGE Observed: 10/11/2017 Status: F Source: [facility] [place] [id number] 4:34 PM HEALTH SYSTEM REPOSITORY Performed at [facility] APPROVED BY: Timothy Rush MD EXAM TITLE: CT GUIDED DRAINAGE [...] with guidewire exchange and Seldinger technique a 8-Montenegrin Skater APDL drainage catheter was deployed and [...] IMAGING GUIDANCE Observed: 10/11/2017 Status: F Source: [facility] 4:34 PM HEALTH SYSTEM PERITONEAL REPOSITORY Performed at [facility] APPROVED BY: Timothy Rush MD EXAM TITLE: CT GUIDED DRAINAGE [...] with guidewire exchange and Seldinger technique a 8-Montenegrin Skater APDL drainage catheter was deployed and [...] OP NOT Observed: 10/11/2017 Status: COMPLETED Source: [place] 4:27 PM CLINIC OTHER CAMPUS REPOSITORY HNO ID: [id number] Author: Timothy Rush Service: Radiology Author Type: Physician Type: Brief Op Note Filed: 10/11/2017 4:31 PM Note Text: INTERVENTIONAL RADIOLOGY POST PROCEDURE NOTE DATE: 10/11/17 NAME: Dia Mccullough LOG ID: [id number] Pre-Procedure Diagnosis: Pelvic abscess Logistics Planner: Surgeon(s) and Role: * Timothy Rush - Primary Procedure: CT guided placement of abscess drainage catheter Anesthesia: Moderate sedation Findings: ~ 25 cc pus. 8 Fr 35 cm Skater APDL drain placed. Estimated Blood Loss: 0 ml Specimen: To microbiology Complications: None Post-Op/Post-Procedure Diagnosis: Pelvic abscess Plan: CT scan of pelvis and abscessogram in one week. Observed: 10/11/2017 Status: F Source: [facility] [place] 4:10 PM HEALTH SYSTEM AND AER REPOSITORY Test performed at [facility] Moderate Mixed anaerobic lara. No further identification to follow. Plates will be held for 5 days. Many WBC Few Gram negative bacilli Few Gram positive cocci ORGANISM: Klebsiella pneumoniae (ID: 1) Few ORGANISM: Khadijah albicans (ID: 2) Moderate ORGANISM: Clostridium perfringens (ID: 3) Many Performed By: #### C_ANA #### [place] [address] HISTORY PHYSICAL Observed: 10/11/2017 Status: COMPLETED Source: [place] 3:55 PM [facility] OTHER [place] REPOSITORY HNO ID: [id number] Author: Timothy Rush Service: Radiology Author Type: Physician Type: [...] CONSULT PROG Observed: 10/11/2017 Status: COMPLETED Source: [place] 3:22 PM CLINIC OTHER CAMPUS REPOSITORY HNO ID: [id number] Author: Misael Wei Service: Infectious Disease Author [...] 2017 TIME: 3:22 PM PAGER/CONTACT #: [phone] CONSULT PROG Observed: 10/11/2017 Status: COMPLETED Source: [place] 3:13 PM [facility] OTHER CAMPUS REPOSITORY HNO ID: [id number] Author: Laly SargentRn) GAURANG Justice Service: Wound/Ostomy Author Type: Registered Nurse Type: Consult Progress Note Filed: 10/11/2017 3:18 PM Note Text: WOUND CARE NURSE CONSULT NOTE SERVICE DATE: 10/11/2017 SERVICE TIME: 1450 REASON FOR VISIT: Wound TIME SPENT (minutes): 30 Documentation from Wound Expert can be found in scanned documents. Patient seen by Carol Neal LAUNDERER HAND and lacey RN. Left lower leg hematoma with area of congealed blood and distal fluid filled area. Xeroform, dry gauze dressing, and DARCY wrap daily. Plastic Surgery consulted for hematoma evacuation. Wound care to follow. SIGNATURE: Laly Justice RN PATIENT NAME: Dia Mccullough DATE: October 11, 2017 TIME: 3:13 PM CONTACT#: [id number] ACTIVATED PTT Collected: 10/11/2017 Status: F Source: [facility] 12:35 PM HEALTH SYSTEM REPOSITORY TYPE CODE TESTS RESULT OUT OF REFERENCE UNITS RANGE LAB APTT(LOINC 22.0-34.0 sec ) High Activated PTT 73.5 Performed By: #### APTT #### [facility] [address] [address] ALLIED HEALTH Observed: 10/11/2017 Status: COMPLETED Source: [place] 12:05 PM [facility] OTHER CAMPUS REPOSITORY HNO ID: [id number] Author: Chaplain Daley (Chaplain) Service: Spiritual Care Author Type: Ict Developer Type: Allied Health Filed: 10/11/2017 12:06 PM Note Text: Spiritual Care Record ? Anointing/[place] PATIENT NAME: Dia Mccullough DATE: October 11, 2017 NOTE: Patient was anointed by Fr. ireland from [facility] on (date): 10/11/17. Signature: Chaplain Thuy Question? Please contact the Spiritual Care Department for assistance. This is an electronically created document. IF PRINTED, PLEASE DO NOT REMOVE FROM THE CHART OR MODIFY PRINTED COPY. ALLIED HEALTH Observed: 10/11/2017 Status: COMPLETED Source: [place] 11:47 AM [facility] REPOSITORY HNO ID: [id number] Author: Fr Ireland () Chaplain Tae Service: Spiritual Care Author Type: Ict Developer Type: Allied Health Filed: 10/11/2017 12:05 PM Note Text: SPIRITUALCARE Spiritual Care Visit- Brief Note Name: Dia Mccullough Date: October 11, 2017 Notes: Per PT has multiple health issues and was scheduled for a test. She looked to be calm, took a prayer and was thankful for the [place] support. Ict Developer Signature: Chaplain Thuy To contact the Spiritual Care Department: Please call [phone] or Page the On-Call Ict Developer at pager [phone] Thank you for the opportunity to be of service. This is an electronically created document. IF PRINTED, PLEASE DO NOT REMOVE FROM THE CHART OR MODIFY PRINTED COPY. PROGRESS Observed: 10/11/2017 Status: COMPLETED Source: [place] 9:22 AM [facility] REPOSITORY HNO ID: [id number] Author: Jose Maria Mittal Service: Hospital Medicine Author Type: Physician Type: Progress Notes Filed: 10/11/2017 9:44 AM Note Text: DEPARTMENT OF HOSPITAL MEDICINE PROGRESS NOTE SERVICE DATE: 10/11/2017 SERVICE TIME: 9:22 AM Hospital Medicine/Primary Attending: Jose Maria Mittal MD NIGHT AND WEEKEND COVERAGE: After 7pm please page [phone] CHIEF COMPLAINT: left leg hematoma. Intraabdominal abscess. [...] BS normal EXTREMITIES: left leg- wrapped in darcy. Opened and examined yesterday- has large hematoma [...] 3.5 CHLOR 109* -- 108* 105 CO2 -- 28 24 BUN 20* -- 34* [...] ml/min (11/28/2014) Venous insufficiency (chronic) (peripheral) () Pima disease () Traumatic hematoma of left lower [...] for?CKD 3-4 Currently wrapped with dressing and DARCY. ? 5. Episode of hematemesis 5 weeks [...] 11, 2017 TIME: 9:22 AM PAGER/CONTACT #: [phone] INITAL EVALUATION (1) Observed: 10/11/2017 Status: F Source: [facility] - PT 9:03 AM [facility] REPOSITORY [facility] Physical Therapy [facility] [facility] [place] [address] Fax REHABILITATION SERVICES INITIAL EVALUATION MR#: [id number] Acct: [id number] Name: DIA MCCULLOUGH Rep #: [id number] : 1940 77 From: Al Cornell DPT, OCS, CSCS Referring Dr.: Alejo Ortega MD Status: REG RCR Insurance: [facility] SELF [facility]Y INSURANCE Patient's Visit Information DIA MCCULLOUGH is a 77 year old F referred to Physical Therapy by Alejo Ortega with a diagnosis of weakness, debility. Date of Evaluation: 10/05/17 Physical Therapist: Al Cornell, DPLiza, OC - Visit Plan Frequency: 3x /Week Duration: 4-6 Weeks Plan: 3x/week for 6 weeks:(Pt with clots in legs and lungs, frequent rests may be needed). 1. gastroc stretches. 2. LE, trunk, UE and functional strength, start HEP and work to gym,. 3. gait progression without AD adn balance. - Subjective Subjective: Perforated bowel August 24, ER sent to [place]. Needed surgery and refused. Gave her three hours to live and was sent home to try to heal. Then had episode of dumping blood and went to ER and released to hospice Around august. Got better in hospice and [place]. Found clots in the legs and the [...] need to prior. Worked out at [facility] prior to this incident. Live alone in one story house. Get in and out of bed shower and toilet I. Tires easily and has to lie down throughout day. Showers and meals wear her out. Watches TV all day and that is abnormal for her. 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 - Objective Pt walks slowly with wh walker 150 feet x [address] [facility] room, tired but not SOB today. [...] to be FAXED BACK to us at [phone] for Medicare purposes. Please let me know if there are questions or concerns regarding this plan of care. Physician Signature: Date: <Electronically signed by Al Cornell DPT, OCS, CSCS> 10/11/17 0903 CC: Jared Romero MD; Alejo Ortega MD EBG Signed For Medicare only, by signing this I certify the plan of care. Physicians Signature Date CONSULT PROG Observed: 10/11/2017 Status: COMPLETED Source: [place] 8:30 AM CLINIC OTHER CAMPUS REPOSITORY HNO ID: [id number] Author: Antione Irizarry Service: Hematology/Oncology Author Type: [...] BS normal EXTREMITIES: left leg- wrapped in darcy. + hematoma. NEURO: No focal deficit. DATA: [...] October 11, 2017 TIME: 8 AM PAGER: [phone] CONSULT PROG Observed: 10/11/2017 Status: COMPLETED Source: [place] 6:35 AM [facility] OTHER CAMPUS REPOSITORY O ID: [id number] Author: Shauna Pulido Service: General Surgery Author [...] O2 Therapy: Room Air IANDO: Date 10/10/17 0700 - 10/11/17 0659 10/11/17 07 - 10/12/17 0659 Shift 0304-2254 6678-0260 7402-3753 24 Hour Total 1664-6711 1835-5513 3667-4341 24 Hour Total I N T A [...] Leg hematoma, left, initial encounter 10/08/2017 - Pima disease Chronic - Venous insufficiency (chronic) (peripheral) - CKD (chronic kidney disease) stage 3, GFR 30-59 ml/min 11/28/2014 - Pulmonary emboli (HCC) 01/30/2014 Overview Note: clinically resolved - DVT (deep venous thrombosis) ([facility]) 01/08/2014 Overview Note: recurrent 77 [...] 11, 2017 6:41 AM [facility] #: Pager: [phone] HEMOGRAM Collected: 10/11/2017 Status: F Source: [facility] 4:31 AM HEALTH SYSTEM REPOSITORY TYPE CODE [...] 0.05 Absolute Performed By: #### CBC1 #### [place] [address] ACTIVATED PTT Collected: 10/11/2017 Status: F Source: [facility] [address] [place] [address] SYSTEM REPOSITORY TYPE CODE TESTS RESULT OUT OF REFERENCE UNITS RANGE LAB APTT(LOINC 22.0-34.0 sec ) Activated PTT 23.4 Performed By: #### APTT #### [place] [address] PROTIME Collected: 10/11/2017 Status: F Source: [facility] 4:31 AM [facility] SYSTEM REPOSITORY TYPE CODE TESTS RESULT OUT OF REFERENCE UNITS RANGE LAB PTI(LOINC) 9.3-11.9 sec Prothrombin Time 10.0 LAB INR(LOINC) INR 0.93 Result Comment: Standard Therapy 2.0-3.0 High Dose 2.5-3.5 Performed By: #### PT #### [place] [address] HEMOGRAM/DIFF Collected: 10/11/2017 Status: F Source: [facility] 4:31 AM HEALTH SYSTEM REPOSITORY TYPE CODE [...] 1.13 LAB MONON(LOIN 0.27-0.70 thou/cmm C) Abs. Austin 0.46 LAB EOSN(LOINC 0.00-0.31 thou/cmm ) Abs. Eosin 0.01 LAB BASON(LOIN 0.01-0.08 thou/cmm C) Abs. Baso 0.01 Performed By: #### CBCD1 #### [place] [address] BASIC PANEL Collected: 10/11/2017 Status: F Source: [facility] 4:31 AM HEALTH SYSTEM REPOSITORY TYPE CODE [...] Gap 8 Performed By: #### P8 #### [place] [address] MDRD GFR Collected: 10/11/2017 Status: F Source: [facility] 4:31 AM HEALTH SYSTEM REPOSITORY TYPE CODE TESTS RESULT OUT OF RANGE REFERENCE UNITS LAB GFRFN(LOINC >60mL/min/1.73m ) 2 eGFR 57.56 Result Comment: If the patient is , multiply the result by 1.210. Performed By: #### GFR #### [place] [address] PROGRESS Observed: 10/11/2017 Status: COMPLETED Source: [place] 3:55 AM CLINIC OTHER CAMPUS REPOSITORY HNO ID: [id number] Author: Kaycee Figueroa Service: Hospital Medicine Author Type: Nurse Practitioner Type: Progress Notes Filed: 10/11/2017 4:00 AM Note Text: IM SOUND NIGHT TEAM Called by general surgery resident regarding possible per drain in AM after ct complete. She discussed discontinuing lovenox and adding heparin gtt instead overnight. After procedure patient can be placed back on therapeutic lovenox. Discussed change with RN. Kaycee Spencerley CREDIT AND COLLECTION MANAGER 0831 NURSING PROG Observed: 10/10/2017 Status: COMPLETED Source: [place] 8:35 PM [facility] OTHER CAMPUS REPOSITORY HNO ID: [id number] Author: Teetee (Rn) GAURANG Mendez Service: (none) Author Type: Registered Nurse Type: Nursing Progress Note Filed: 10/10/2017 10:04 PM Note Text: Sound paged to notify that the patient is requesting something for anxiety. Ativan 0.25 mg ordered once by AMMY Figueroa. AMMY Figueroa of Sound notified that the patient received half of the dose of meropenem and then refused the other half related to GI upset. PROGRESS Observed: 10/10/2017 Status: COMPLETED Source: [place] 2:48 PM [facility] REPOSITORY HNO ID: [id number] Author: Zhane Mcgovern III Service: Infectious Disease [...] October 10, 2017 TIME: 2:48 PM PAGER: [phone] PROGRESS Observed: 10/10/2017 Status: COMPLETED Source: [place] 11:27 AM CLINIC OTHER CAMPUS REPOSITORY O ID: [id number] Author: Jose Maria Mittal Service: Hospital Medicine Author Type: Physician Type: Progress Notes Filed: 10/10/2017 11:50 AM Note Text: DEPARTMENT OF HOSPITAL MEDICINE PROGRESS NOTE SERVICE DATE: 10/10/2017 SERVICE TIME: 11:27 AM Hospital Medicine/Primary Attending: Jose Maria Mittal MD NIGHT AND WEEKEND COVERAGE: After 7pm please page [phone] CHIEF COMPLAINT: left leg hematoma. SUBJECTIVE: No [...] ml/min (11/28/2014) Venous insufficiency (chronic) (peripheral) () Collin disease () Traumatic hematoma of left lower [...] CKD 3-4 Currently wrapped with dressing and DARCY. ? 5. Episode of hematemesis 5 weeks [...] 10, 2017 TIME: 11:27 AM PAGER/CONTACT #: [phone] TYPE AND SCREEN Collected: 10/10/2017 Status: F Source: [facility] 10:20 AM HEALTH SYSTEM REPOSITORY TYPE CODE TESTS RESULT OUT OF REFERENCE UNITS RANGE LAB ABO(LOINC) A ABO Group LAB BUSINESS PROCESS ASSOCIATE(LOINC ) RH Type Positive LAB ABSCR(LOIN C) Antibody NEGATIVE Screen LAB BBCMT(LOIN C) Comment See Below Result Comment: Screen &/or Xmatch expires in 3 days at 12 midnight. Redraw patient at that time. Performed By: #### T&S #### [place] [address] RBC PRODUCTS Collected: 10/10/2017 Status: F Source: [facility] 10:20 AM HEALTH SYSTEM REPOSITORY TYPE CODE TESTS RESULT OUT OF REFERENCE UNITS RANGE LAB UNIT1(LOINC ) Xmatch Unit 1 see below Result Comment: Compatible Performed By: #### RBCPS #### [place] [id number] HEMOGRAM/DIFF Collected: 10/10/2017 Status: F Source: [facility] 8:30 AM HEALTH SYSTEM REPOSITORY TYPE CODE [...] 1.53 LAB MONON(LOIN 0.27-0.70 thou/cmm C) Abs. [place] 0.31 LAB EOSN(LOINC 0.00-0.31 thou/cmm ) Abs. Eosin 0.03 LAB BASON(LOIN 0.01-0.08 thou/cmm C) Abs. Baso 0.01 Performed By: #### CBCD1 #### [facility] [address] [place] [address] CONSULT PROG Observed: 10/10/2017 Status: COMPLETED Source: [place] 7:05 AM [facility] OTHER CAMPUS REPOSITORY HNO ID: [id number] Author: Randi Ledbetter Service: General Surgery Author Type: Resident [...] 0659 10/10/17 07 - 10/11/17 0659 Shift 4979-0723 4840-0000 2738-3752 24 Hour Total 4830-6195 3950-3264 2390-4704 24 Hour Total I N T A K E PO 240 240 480 PO 240 240 480 IV 1000 1000 LR 1000 1000 Shift Total 1765 173 5251 O U T P U T Urine [...] Leg hematoma, left, initial encounter 10/08/2017 - Pima disease Chronic - Venous insufficiency (chronic) (peripheral) - CKD (chronic kidney disease) stage 3, GFR 30-59 ml/min 11/28/2014 - Pulmonary emboli (HCC) 01/30/2014 Overview Note: clinically resolved - DVT (deep venous thrombosis) ([facility]) 01/08/2014 Overview Note: recurrent 77 [...] colonoscopy in 6-8 weeks after discharge. SIGNATURE: Randi Koenig MD PATIENT NAME: Dia Mccullough DATE: October 10, 2017 TIME: 7:05 AM Pager: [phone] COMPREHENSIVE PANEL Collected: 10/10/2017 Status: F Source: [facility] 3:57 AM HEALTH SYSTEM REPOSITORY TYPE CODE [...] Gap 9 Performed By: #### P14 #### [place] [address] MDRD GFR Collected: 10/10/2017 Status: F Source: [facility] 3:57 AM HEALTH SYSTEM REPOSITORY TYPE CODE TESTS RESULT OUT OF RANGE REFERENCE UNITS LAB GFRFN(LOINC >60mL/min/1.73m ) 2 eGFR 30.50 Result Comment: If the patient is , multiply the result by 1.210. Performed By: #### GFR #### [facility] [address] [place] [id number] CONSULT Observed: 10/09/2017 Status: COMPLETED Source: [place] 4:02 PM CLINIC OTHER CAMPUS REPOSITORY HNO ID: [id number] Author: Zhane Miranda Froilan GOEL Service: Infectious Disease Author Type: Physician Type: Consults Filed: 10/09/2017 8:19 PM Note Text: CONSULT: INFECTIOUS DISEASE SERVICE SERVICE DATE: 10/09/2017 SERVICE TIME: 4:02PM REASON FOR CONSULT: Abdominal abscess REQUESTING PHYSICIAN: Dr. Damon PRIMARY CARE PHYSICIAN: Rika Wheeler MD Subjective . 77 year old female who was in [facility] in August for perforated bowel Had refused surgery and actually went home on hospice and on oral antibiotics. Has been receiving blood thinner. Recently had hematoma of the left leg. Per HANDP, she was brought back to [place] ED for abdominal pain. There, it was [...] flagyl. PAST MEDICAL HISTORY Diagnosis Date - Pima disease - Asthma - CKD (chronic kidney [...] HTN (hypertension) - Hypercholesterolemia - Inflammatory polyarthritis ([facility]) Dr. Hansen - Inflammatory polyarthropathy - Normocytic anemia - PE (pulmonary thromboembolism) ([facility]) 01/05/14 Bilat, extensive - Pulmonary [...] Take 1 tablet by mouth once daily. (Chief Controller) Disp: Rfl: 10/07/2017 at Unknown time Current [...] October 09, 2017 TIME: 4:02 PM PAGER: [phone] RETICULOCYTE COUNT Collected: 10/09/2017 Status: F Source: [facility] 3:30 PM HEALTH SYSTEM REPOSITORY TYPE CODE TESTS RESULT OUT OF REFERENCE UNITS RANGE LAB RETCT(LOIN 1.0-2.1 % C) Reticulocyte High Ct 3.8 LAB RETAS(LOIN 0.038-0.095 mil/cmm C) Absolute Reticulocyte 0.081 LAB IRF(LOINC) 3.0-15.9 % Immature Retic High Fractions 32.5 LAB RETHE(LOIN 27.9-38.4 pg C) Retic Hemoglobin 35.6 Equivalent Performed By: #### RETC1 #### [facility] [address] [place] [address] IRON % SATURATION Collected: 10/09/2017 Status: F Source: [facility] 3:30 PM HEALTH SYSTEM REPOSITORY TYPE CODE TESTS RESULT OUT OF REFERENCE UNITS RANGE LAB IRON(LOINC 50-170 ug/dL ) Low Iron Serum 14 LAB IBC(LOINC) 250-450 ug/dL Low Iron Binding Cap. 182 LAB IRON%(LOIN 20-55 % C) Low Iron % Saturation 8 Performed By: #### IRONS #### [facility] [address] [place] [address] FERRITIN Collected: 10/09/2017 Status: F Source: [facility] 3:30 PM HEALTH SYSTEM REPOSITORY TYPE CODE TESTS RESULT OUT OF REFERENCE UNITS RANGE LAB FERR(LOINC) 8.00-252.00 ng/mL Ferritin 176.00 Performed By: #### FERR #### [place] [address] VITAMIN B12 Collected: 10/09/2017 Status: F Source: [facility] [address] [place] [address] SYSTEM REPOSITORY TYPE CODE TESTS RESULT OUT OF REFERENCE UNITS RANGE LAB B12(LOINC) 193-986 pg/mL Vitamin B12 682 Performed By: #### B12 #### [place] [address] FOLATE Collected: 10/09/2017 Status: F Source: [facility] [address] SYSTEM REPOSITORY TYPE CODE TESTS RESULT OUT OF REFERENCE UNITS RANGE LAB FOL(LOINC) 3.10-17.50 ng/mL High Folate 19.80 Performed By: #### FOL #### [place] [address] ANTIPHOSPHOLIPID EVAL PANEL Collected: 10/09/2017 Status: F Source: [place] [address] SYSTEM REPOSITORY TYPE CODE TESTS RESULT OUT OF RANGE REFERENCE UNITS LAB B2GX(LOINC) B 2 -GPI SEE BELOW IgG & IgM Result Comment: Beta2 Glycoprot IgG <9 <20 SGU < 20 SGU Negative 20-80 SGU Low Positive > 80 SGU High Positive These results were obtained with the [employer] QUANTA Lite B2 GPI IgG CRISSY. B2 [...] correlated to an endpoint titer. Performing Laboratory: [place] [address] LAB CARDX(LOINC) Cardiolipin Antibody SEE BELOW Result [...] correlated to an endpoint titer. Performing Laboratory: [address] [address] LAB LUPUX(LOINC) Lupus Anticoag (DRVVT) SEE BELOW Result Comment: DRVVT Screen SEE BELOW 32.7-46.7 sec The heparin activity could not be neutralized completely. This can be seen with some types of low molecular weight heparin or fondaparinux therapy. Suggest repeating the lupus anticoagulant evaluation when the patient is no longer receiving heparin. Reviewed by Deirdre Malloy M.D.,Ph.D ([id number]) DRVVT Confirm Ratio SEE BELOW <1.21 The [...] is no longer receiving heparin. Performing Laboratory: [facility] [address] [place] [address] Performed By: #### PHOX #### [facility] [address] [place] [address] ALLIED HEALTH Observed: 10/09/2017 Status: COMPLETED Source: [place] 2:58 PM [facility] REPOSITORY HNO ID: [id number] Author: Chaplain Atkins (Chaplain) Service: Spiritual Care Author Type: Ict Developer Type: Allied Health Filed: 10/09/2017 2:59 PM Note Text: SPIRITUALCARE Spiritual Care Visit- Brief Note Name: Dia Mccullough Date: October 09, 2017 Notes: As toddler guide, made intro visit with pt. Listened empathetically to pt's concerns. Reminded pt of 06/12 SC. Ict Developer Signature: CHAPLAIN Wilbert To contact the Spiritual Care Department: Please call [phone] or Page the On-Call Ict Developer at pager [phone] Thank you for the opportunity to be of service. This is an electronically created document. IF PRINTED, PLEASE DO NOT REMOVE FROM THE CHART OR MODIFY PRINTED COPY. CONSULT PROG Observed: 10/09/2017 Status: COMPLETED Source: [place] 2:39 PM [facility] REPOSITORY HNO ID: [id number] Author: Good Henning Service: Hematology/Oncology Author Type: [...] MD PROGRESS Observed: 10/09/2017 Status: COMPLETED Source: [place] 1:32 PM CLINIC OTHER CAMPUS REPOSITORY HNO ID: [id number] Author: Jose Maria Mittal Service: Hospital Medicine Author Type: Physician Type: Progress Notes Filed: 10/09/2017 2:02 PM Note Text: DEPARTMENT OF HOSPITAL MEDICINE PROGRESS NOTE SERVICE DATE: 10/09/2017 SERVICE TIME: 1:33 PM Hospital Medicine/Primary Attending: Jose Maria Mittal MD NIGHT AND WEEKEND COVERAGE: After 7pm please page [phone] CHIEF COMPLAINT: bleeding in left leg SUBJECTIVE: 6 weeks ago she had bowel perforation and was brought in here. She decided not to have surgery and was sent home on 2 weeks of oral abx. 2 weeks later she has hematemesis while on coumadin. She was treated with vit k at [facility] and was sent to hospice IPU. She [...] EXTREMITIES: left leg: wrapped in dressing and Darcy wrap. Foot warm with intact sensation. Right [...] ml/min (11/28/2014) Venous insufficiency (chronic) (peripheral) () Collin disease () Traumatic hematoma of left lower [...] CKD 3-4 Currently wrapped with dressing and DARCY 5. Episode of hematemesis 5 weeks ago [...] need drainage of abscess. Continue to apply darcy wrap pressure dressing to left leg. Continue lovenox at 1mg/kg daily dose. Consider eventual transition to coumadin (NOAC too expensive per patient) or IVC filter. Will get opinion of president & ceo- has seen Dr Irizarry in the past. Check ferritin, retic, vitamin b12 and folate. This was discussed with patient and later with son on the phone She is DNRCCA and no mechanical ventilation for respiratory distress either. VTE Prophylaxis: Patient is already anti-coagulated. Disposition: Home with [facility] Plan of care discussed with: Patient, Family/Other: son and RN SIGNATURE: Jose Maria Mittal MD PATIENT NAME: Dia Mccullough DATE: October 09, 2017 TIME: 1:33 PM PAGER/CONTACT #: [phone] CONSULT Observed: 10/09/2017 Status: COMPLETED Source: [place] 8:57 AM CLINIC OTHER CAMPUS REPOSITORY HNO ID: [id number] Author: Javier Wiley Service: General Surgery Author Type: Physician Type: Consults Filed: 10/17/2017 9:24 PM Note Text: CONSULT: General Surgery SERVICE SERVICE DATE: 10/09/2017 SERVICE TIME: 9:42 AM REASON FOR CONSULT: Intraabdominal abscess REQUESTING PHYSICIAN: Dr. Damon PRIMARY CARE PHYSICIAN: Rika Wheeler MD Subjective Ms. Mccullough is a 77 year old female recently admitted 08/24/17 from [place] for diverticular abscess/perforation and septic shock. After multiple discussion (with patient/family) regarding recommendations for surgery, patient was discharged to hospice at patient's request on po antibiotics. 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 Readmitted yesterday for CT [...] excluded. PAST MEDICAL HISTORY Diagnosis Date - Pima disease - Asthma - CKD (chronic kidney [...] Take 1 tablet by mouth once daily. (Chief Controller) Disp: Rfl: 10/07/2017 at Unknown time Current [...] abscess/phlegmon ill defined on current imaging -d/w loss prevention guard radiologist, developing abscess is located in a [...] questions or concerns Mon-Fri 6a-5p please page [phone]. After 5pm and on Weekends and Holidays, please page [phone] if in ICU or [phone] if on RNF. SIGNATURE: Lina Damico MD PATIENT NAME: Dia Mccullough DATE: October 09, 2017 TIME: 8:59 AM PAGER: [phone] Attending Note I evaluated the patient and [...] % SATURATION Collected: 10/09/2017 Status: F Source: [facility] 8:25 AM HEALTH SYSTEM REPOSITORY TYPE CODE TESTS RESULT OUT OF REFERENCE UNITS RANGE LAB IRON(LOINC 50-170 ug/dL ) Low Iron Serum 29 LAB IBC(LOINC) 250-450 ug/dL Low Iron Binding Cap. 186 LAB IRON%(LOIN 20-55 % C) Low Iron % Saturation 16 Performed By: #### IRONS #### [address] [address] PROGRESS Observed: 10/09/2017 Status: COMPLETED Source: [place] 6:44 AM CLINIC OTHER CAMPUS REPOSITORY HNO ID: [id number] Author: Gold Clemens Service: Hospital Medicine Author Type: Physician Type: Progress Notes Filed: 10/09/2017 6:45 AM Note Text: Pulse > 150, tele showed SVT, EKG confirmed. Metoprolol PO given, will monitor response. No IV access at this time. HEMOGRAM/DIFF Collected: 10/09/2017 Status: F Source: [facility] 6:30 AM HEALTH SYSTEM REPOSITORY TYPE CODE [...] 0.98 LAB MONON(LOIN 0.27-0.70 thou/cmm C) Abs. Austin 0.44 LAB EOSN(LOINC 0.00-0.31 thou/cmm ) Abs. Eosin 0.03 LAB BASON(LOIN 0.01-0.08 thou/cmm C) Abs. Baso 0.03 Result Comment: Smear scanned; tech agrees with automated differential Performed By: #### CBCD1 #### [place] [address] BASIC PANEL Collected: 10/09/2017 Status: F Source: [facility] 6:30 AM HEALTH SYSTEM REPOSITORY TYPE CODE [...] Gap 13 Performed By: #### P8 #### [place] [address] MAGNESIUM BLOOD Collected: 10/09/2017 Status: F Source: [facility] 6:30 AM HEALTH SYSTEM REPOSITORY TYPE CODE TESTS RESULT OUT OF REFERENCE UNITS RANGE LAB MAG(LOINC) 1.6-2.6 mg/dL Low Magnesium Blood 1.4 Performed By: #### MAG #### [place] [address] PHOSPHORUS BLOOD Collected: 10/09/2017 Status: F Source: [facility] 6:30 AM HEALTH SYSTEM REPOSITORY TYPE CODE TESTS RESULT OUT OF REFERENCE UNITS RANGE LAB PHOS(LOINC 2.5-4.9 mg/dL ) Phosphorus Blood 3.6 Performed By: #### PHOS #### [place] [address] TROPONIN I Collected: 10/09/2017 Status: F Source: [facility] 6:30 AM HEALTH SYSTEM REPOSITORY TYPE CODE TESTS RESULT OUT OF REFERENCE UNITS RANGE LAB TROP(LOINC) 0.015-0.045 ng/ml Troponin I < 0.015 Performed By: #### TROP #### [place] [address] MDRD GFR Collected: 10/09/2017 Status: F Source: [facility] 6:30 HEALTH SYSTEM REPOSITORY TYPE CODE TESTS RESULT OUT OF RANGE REFERENCE UNITS LAB GFRFN(LOINC >60mL/min/1.73m ) 2 eGFR 32.32 Result Comment: If the patient is , multiply the result by 1.210. Performed By: #### GFR #### [place] [address] RETICULOCYTE COUNT Collected: 10/09/2017 Status: F Source: [place] [id number] [facility] SYSTEM REPOSITORY TYPE CODE TESTS RESULT OUT OF REFERENCE UNITS RANGE LAB RETCT(LOIN 1.0-2.1 % C) Reticulocyte High Ct 3.9 LAB RETAS(LOIN 0.038-0.095 mil/cmm C) Absolute Reticulocyte 0.095 LAB IRF(LOINC) 3.0-15.9 % Immature Retic High Fractions 40.9 LAB RETHE(LOIN 27.9-38.4 pg C) Retic Hemoglobin 37.3 Equivalent Performed By: #### RETC1 #### [place] [address] FERRITIN Collected: 10/09/2017 Status: F Source: [facility] 6:30 HEALTH SYSTEM REPOSITORY TYPE CODE TESTS RESULT OUT OF REFERENCE UNITS RANGE LAB FERR(LOINC) 8.00-252.00 ng/mL Ferritin 181.50 Performed By: #### FERR #### [place] [address] VITAMIN B12 Collected: 10/09/2017 Status: F Source: [facility] 6:30 AM HEALTH SYSTEM REPOSITORY TYPE CODE TESTS RESULT OUT OF REFERENCE UNITS RANGE LAB B12(LOINC) 193-986 pg/mL Vitamin B12 619 Performed By: #### B12 #### [facility] [address] [place], [place] [address] FOLATE Collected: 10/09/2017 Status: F Source: [facility] 6:30 AM HEALTH SYSTEM REPOSITORY TYPE CODE TESTS RESULT OUT OF REFERENCE UNITS RANGE LAB FOL(LOINC) 3.10-17.50 ng/mL High Folate 20.80 Performed By: #### FOL #### [facility] [address] [place] [id number] EKG (AK,AV,EU,FV,HL,EDIE,MM,SP) Observed: Status: F Source: [place] 10/09/2017 6:17 AM CLINIC OTHER [place] REPOSITORY NAME : DIA MCCULLOUGH PID : [id number] : 1940 Gender : Female Race : ORD : [id number] Procedure Date : Oct 09 2017 06:17 [...] ms QTC Calculation(Bezet) : 462 ms R Marshall : -51 degrees T Marshall : 64 degrees Test Reason : Arrhythmia Location : 51 : 5100 5108 Overread By : MD GRIFFITH G Editted By : MD GRIFFITH G Referred By : GOLD CLEMENS Acquired by : Renae Bartlett HISTORY PHYSICAL Observed: 10/08/2017 Status: COMPLETED Source: [place] 10:57 PM CLINIC OTHER CAMPUS REPOSITORY HNO ID: [id number] Author: Gold Clemens Service: Hospital Medicine Author Type: Physician Type: HANDP Filed: 10/08/2017 11:51 PM Note Text: DEPARTMENT OF [facility]PITAL MEDIC[facility] EMERGENCY DEPARTMENT PHYSICIANS HISTORY AND PHYSICAL EXAMINATION SERVICE DATE: 10/08/2017 10:57 PM PRIMARY CARE PHYSICIAN: Rika Wheeler MD Subjective CHIEF COMPLAINT: Left leg hematoma HPI: This is a 77 year old female who has a complicated recent medical history starting August 24 when she was diagnosed with diverticular abscess/perforation and septic shock. She was brought here for surgical eval from [place], but declined operative intervention and requested to [...] more bleeding, and she went to the [place] ED this morning. She was discharged back home after wound evaluation and no finding of circulatory compromise. Her son then brought her back to the ED with a concern over abdominal pain and insistent on hospitalization per [place] ED notes. Eval included CT abdomen which [...] dependent PAST MEDICAL HISTORY Diagnosis Date - Pima disease - Asthma - CKD (chronic kidney [...] - Normocytic anemia - PE (pulmonary thromboembolism) ([facility]) 01/05/14 Bilat, extensive - Pulmonary [...] Yes Assessment AND Plan: chronic and stable Collin disease POA: Yes Assessment AND Plan: continue [...] with nursing staff and/or other providers, documentation, mail order clerk, and [id number] time with patient. Of this time, greater than 50% was spent counseling and coordinating care. Counseling elements include educating the patient about diagnosis, further testing, and care related to Intra-abdominal abscess (HCC). Plan of care discussed with: Patient and RN VTE Prophylaxis: Patient is already anti-coagulated. Diagnostic tests reviewed for today's visit: Most recent labs and imaging results. Most recent EKG TELEMETRY: [facility] Imaging Services [address] [place] [address] Abdomen/Pelvis without Cont MR#: [id number] Acct: [id number] Name: DIA MCCULLOUGH Rep #: [id number] : 1940 F 77 From: Mckay Faulkner MD PCP: Jared Romero MD Status: REG ER Study: Abdomen/Pelvis without Cont Date of Exam: 10/08/17 Exam# [id number] Ordering Dr: Ronn Marrero MD STUDY: CT [...] AND WEEKEND COVERAGE: After 7pm please page [phone] EMERGENCY DEPARTMENT Observed: 10/08/2017 Status: F Source: [place] SUMMARY 4:06 PM [facility] RE[facility] Medical Records Department [address] [place] [address] Emergency Department Summary 10/08/17 1419 MR#: [id number] Acct: [id number] Name: DIA MCCULLOUGH Rep #: [id number] : 1940 77 From: Ronn Marrero MD [...] PE is started on Lovenox, 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 It may contain incorrect words, [...] problems, contact your Primary Care Provider. Call [facility] ([phone]) or report to the closest Emergency Room. Call 911 if necessary. 10/08/17 6839 <Electronically signed by Ronn Marrero MD> Date Ronn Marrero MD Cosigner Signature (If Indicated): Date CC: Jared Romero MD CBC W/DIFF, AUTOMATED Collected: 10/08/2017 Status: F Source: [place] 2:15 PM [facility] REPOSITORY TYPE CODE TESTS RESULT OUT OF [...] [facility] [address] [place], [address] PROTHROMBIN TIME W/INR Collected: 10/08/2017 Status: F Source: [place] 2:15 PM [facility] REPOSITORY TYPE CODE TESTS RESULT OUT OF RANGE REFERENCE UNITS LAB L300.4150 11.7-14.9 SECONDS Normal PROTIME 14.6 LAB L300.4200 Normal INR 1.1 Performed By: #### L300.3900 #### [facility] [address] [facility] [place], [address] BASIC METABOLIC Collected: 10/08/2017 Status: F Source: [place] PROFILE (BMP) 2:15 PM [facility] REPOSITORY TYPE CODE TESTS RESULT OUT OF [...] #### [facility] [address] [place] [place], [address] LIVER PROFILE Collected: 10/08/2017 Status: F Source: [place] 2:15 PM [facility] REPOSITORY TYPE CODE TESTS RESULT OUT OF [...] #### [facility] [address] [facility] [place], [address] LIPASE Collected: 10/08/2017 Status: F Source: [place] 2:15 PM [facility] REPOSITORY TYPE CODE TESTS RESULT OUT OF RANGE REFERENCE UNITS LAB L501.2450 73-393 U/L Normal LIPASE 79 Performed By: #### L500.2500, L500.3400, L501.2450 #### [facility] [address] [facility] [place], [address] ABDOMEN/PELVIS WITHOUT Observed: 10/08/2017 Status: F Source: [place] CONT 1:56 PM [facility] REPOSITORY [facility] Imaging Services [address] [place] [address] Abdomen/Pelvis without Cont MR#: [id number] Acct: [id number] Name: DIA MCCULLOUGH Rep #: [id number] : 1940 F 77 From: Mckay Faulkner MD PCP: Jared Romero MD Status: REG ER Study: Abdomen/Pelvis without Cont Date of Exam: 10/08/17 Exam# [id number] Ordering Dr: Ronn Marrero MD STUDY: CT [...] CC: MD Brian Marrero; Jared Romero MD Turntable Worker: Signed EMERGENCY DEPARTMENT Observed: 10/08/2017 Status: F Source: [place] 4:25 AM [facility] REPOSITORY [facility] Medical Records Department [address] [place] [address] Emergency Department Summary 10/08/17 0418 MR#: [id number] Acct: [id number] Name: DIA MCCULLOUGH Rep #: [id number] : 1940 77 From: Cali Bucio MD [...] history of GI bleed, bowel perforation and Pima's disease. Physical Examination: Patient appears uncomfortable. Blood [...] decrease her dose and follow-up with her tree deadener. Treatment Plan: Decrease dose of Lovenox, follow-up with PCP for wound check in 2 days and follow-up with tree deadener. Disposition: Discharged to home in stable condition Impression: 1. Spontaneous hematoma left lower extremity with multiple bruises secondary to Lovenox induced coagulopathy secondary to renal insufficiency, acute 2. Chronic anemia 3. Acute renal insufficiency 4. Recent diagnosis of bilateral PE and DVT 5. History of Collin's disease This note was generated with ModeWalk dictation software. It may contain incorrect words, [...] hematoma in 2 days. Follow-up with your tree deadener because of worsening kidney function, GFR What to do if you have Problems For any increased pain, shortness of breath, bleeding, nausea or vomiting, chest pain, or any unexpected problems, contact your Primary Care Provider. Call [facility] ([phone]) or report to the closest Emergency Room. Call 911 if necessary. 05/26/18 0425 <Electronically signed by Cali Bucio MD> Date Cali Bucio MD Cosigner Signature (If Indicated): Date CC: Jared Romero MD CBC W/DIFF, AUTOMATED Collected: 10/08/2017 Status: F Source: [place] 3:24 AM [facility] REPOSITORY TYPE CODE TESTS RESULT OUT OF [...] [facility] [address] [place], [address] BASIC METABOLIC Collected: 10/08/2017 Status: F Source: [place] PROFILE (BMP) 3:24 AM [facility] REPOSITORY TYPE CODE TESTS RESULT OUT OF [...] #### [facility] [address] [place], [address] PROTHROMBIN TIME W/INR Collected: 10/08/2017 Status: F Source: [place] 3:24 AM [facility] REPOSITORY TYPE CODE TESTS RESULT OUT OF RANGE REFERENCE UNITS LAB L300.4150 11.7-14.9 SECONDS Normal PROTIME 14.2 LAB L300.4200 Normal INR 1.1 Performed By: #### L300.3900, L300.4310 #### [facility] [address] [place], [address] PARTIAL THROMBOPLAST Collected: 10/08/2017 Status: F Source: [place] TIME 3:24 AM [facility] REPOSITORY TYPE CODE TESTS RESULT OUT OF REFERENCE UNITS RANGE LAB L300.4310 24.1-36.2 Seconds High PTT 37.8 Performed By: #### L300.3900, L300.4310 #### [facility] [address] [facility] 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 She was brought here for surgical eval from [place], but declined operative intervention and requested to [...] more bleeding, and she went to the [place] ED this morning. She was discharged back home after wound evaluation and no finding of circulatory compromise. Her son then brought her back to the ED with a concern over abdominal pain and insistent on hospitalization per [place] ED notes. Eval included CT abdomen which [...] dependent PAST MEDICAL HISTORY Diagnosis Date - Pima disease - Asthma - CKD (chronic kidney [...] - Normocytic anemia - PE (pulmonary thromboembolism) ([facility]) 01/05/14 Bilat, extensive - Pulmonary [...] MEDICATIONS Please see reconciled medication list in [facility] for details on home medications. ALLERGIES Allergen [...] Yes Assessment AND Plan: chronic and stable Pima disease POA: Yes Assessment AND Plan: continue [...] with nursing staff and/or other providers, documentation, mail order clerk, and [id number] time with patient. Of this time, greater than 50% was spent counseling and coordinating care. Counseling elements include educating the patient about diagnosis, further testing, and care related to Intra-abdominal abscess (HCC). Plan of care discussed with: Patient and RN VTE Prophylaxis: Patient is already anti-coagulated. Diagnostic tests reviewed for today's visit: Most recent labs and imaging results. Most recent EKG TELEMETRY: [facility] Imaging Services [address] [place] [address] Abdomen/Pelvis without Cont MR#: [id number] Acct: [id number] Name: DIA MCCULLOUGH Rep #: [id number] : [id number] F [id number] From: Mckay Faulkner MD PCP: Jared Romero MD Status: REG ER Study: Abdomen/Pelvis without Cont Date of Exam: 10/08/17 Exam# [id number] Ordering Dr: Ronn Marrero MD STUDY: CT [...] AND WEEKEND COVERAGE: After 7pm please page [phone] Gold Clemens MD 10/09/2017 6:45 AM Signed Pulse > 150, tele showed SVT, EKG confirmed. Metoprolol PO given, will monitor response. No IV access at this time. Lina Damico MD 10/09/2017 5:33 PM Cosign Needed CONSULT: General Surgery SERVICE SERVICE DATE: 10/09/2017 SERVICE TIME: 9:42 AM REASON FOR CONSULT: Intraabdominal abscess REQUESTING PHYSICIAN: Dr. Damon PRIMARY CARE PHYSICIAN: Rika Wheeler MD Subjective Ms. Mccullough is a 77 year old female recently admitted 08/24/17 from [place] for diverticular abscess/perforation and septic shock. After multiple discussion (with patient/family) regarding recommendations for surgery, patient was discharged to hospice at patient's request on po antibiotics. 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 Readmitted yesterday for CT [...] excluded. PAST MEDICAL HISTORY Diagnosis Date - Pima disease - Asthma - CKD (chronic kidney [...] Take 1 tablet by mouth once daily. (Chief Controller) Disp: Rfl: 10/07/2017 at Unknown time Current [...] abscess/phlegmon ill defined on current imaging -d/w loss prevention guard radiologist, developing abscess is located in a [...] questions or concerns Mon-Fri 6a-5p please page [phone]. After 5pm and on Weekends and Holidays, please page [phone] if in ICU or [phone] if on RNF. SIGNATURE: Lina Damico MD PATIENT NAME: Dia Mccullough DATE: October 09, 2017 TIME: 8:59 AM PAGER: [phone] Jose Maria Mittal MD 10/09/2017 2:02 PM Addendum DEPARTMENT OF HOSPITAL MEDICINE PROGRESS NOTE SERVICE DATE: 10/09/2017 SERVICE TIME: 1:33 PM Hospital Medicine/Primary Attending: Jose Maria Mittal MD NIGHT AND WEEKEND COVERAGE: After 7pm please page [phone] CHIEF COMPLAINT: bleeding in left leg SUBJECTIVE: 6 weeks ago she had bowel perforation and was brought in here. She decided not to have surgery and was sent home on 2 weeks of oral abx. 2 weeks later she has hematemesis while on coumadin. She was treated with vit k at [place] and was sent to hospice I[facility]. She [...] EXTREMITIES: left leg: wrapped in dressing and Darcy wrap. Foot warm with intact sensation. Right [...] ml/min (11/28/2014) Venous insufficiency (chronic) (peripheral) () Pima disease () Traumatic hematoma of left lower [...] CKD 3-4 Currently wrapped with dressing and DARCY 5. Episode of hematemesis 5 weeks ago [...] need drainage of abscess. Continue to apply darcy wrap pressure dressing to left leg. Continue lovenox at 1mg/kg daily dose. Consider eventual transition to coumadin (NOAC too expensive per patient) or IVC filter. Will get opinion of president & ceo- has seen Dr Irizarry in the past. Check ferritin, retic, vitamin b12 and folate. This was discussed with patient and later with son on the phone She is DNRCCA and no mechanical ventilation for respiratory distress either. VTE Prophylaxis: Patient is already anti-coagulated. Disposition: Home with [facility] Plan of care discussed with: Patient, Family/Other: son and RN SIGNATURE: Jose Maria Mittal MD PATIENT NAME: Dia Mccullough DATE: October 09, 2017 TIME: 1:33 PM PAGER/CONTACT #: [phone] Previous Version Shawna Henning MD 10/09/2017 2:43 PM Signed Patient seen and Heme issues discussed with patient and son. Consult dictated. 1. Patient doing well on Lovenox. 2. Keep current dose. 70 mg daily. 3. Hemostatic decisions will be based on surgeons decision in regard to surgery. Will facilitate the surgeons decision. Will follow. MD Randi Cody CHAPLAIN, Chaplain 10/09/2017 2:59 PM Signed SPIRITUALCARE Spiritual Care Visit- Brief Note Name: Dia Mccullough Date: October 09, 2017 Notes: As toddler guide, made intro visit with pt. Listened empathetically to pt's concerns. Reminded pt of 06/12 SC. Signature: CHAPLAIN Wilbert To contact the Spiritual Care Department: Please call [phone] or Page the On-Call Ict Developer at pager [phone] Thank you for the opportunity to be of service. This is an electronically created document. IF PRINTED, PLEASE DO NOT REMOVE FROM THE CHART OR MODIFY PRINTED COPY. Zhane Mcgovern III, MD 10/09/2017 8:19 PM Signed CONSULT: INFECTIOUS DISEASE SERVICE SERVICE DATE: 10/09/2017 SERVICE TIME: 4:02PM REASON FOR CONSULT: Abdominal abscess REQUESTING PHYSICIAN: Dr. Damon PRIMARY CARE PHYSICIAN: Rika Wheeler MD Subjective . 77 year old female who was in [facility] in August for perforated bowel Had refused surgery and actually went home on hospice and on oral antibiotics. Has been receiving blood thinner. Recently had hematoma of the left leg. Per HANDP, she was brought back to [place] ED for abdominal pain. There, it was [...] flagyl. PAST MEDICAL HISTORY Diagnosis Date - Collin disease - Asthma - CKD (chronic kidney [...] HTN (hypertension) - Hypercholesterolemia - Inflammatory polyarthritis ([facility]) Dr. Hansen - Inflammatory polyarthropathy - Normocytic anemia - PE (pulmonary thromboembolism) ([facility]) 01/05/14 Bilat, extensive - Pulmonary [...] Take 1 tablet by mouth once daily. (Chief Controller) Disp: Rfl: 10/07/2017 at Unknown time Current [...] October 09, 2017 TIME: 4:02 PM PAGER: [phone] Randi Koenig MD 10/10/2017 7:10 AM Attested Attestation [...] O2 Therapy: Room Air IANDO: Date 10/09/17 0700 - 10/10/17 0659 10/10/17 07 - 10/11/17 0659 Shift 3927-6797 0261-5322 8708-4441 24 Hour Total 9836-2291 9626-8202 2611-3618 24 Hour Total I N T A K E PO 240 240 480 PO 240 240 480 IV 1000 1000 LR 1000 1000 Shift Total 4199 131 0140 O U T P U T Urine [...] Leg hematoma, left, initial encounter 10/08/2017 - Collin disease Chronic - Venous insufficiency (chronic) (peripheral) - CKD (chronic kidney disease) stage 3, GFR 30-59 ml/min 11/28/2014 - Pulmonary emboli (HCC) 01/30/2014 Overview Note: clinically resolved - DVT (deep venous thrombosis) ([facility]) 01/08/2014 Overview Note: recurrent 77 [...] colonoscopy in 6-8 weeks after discharge. SIGNATURE: Randi Koenig MD PATIENT NAME: Dia Mccullough DATE: October 10, 2017 TIME: 7:05 AM Pager: [phone] Jose Maria Mittal MD 10/10/2017 11:50 AM Signed DEPARTMENT OF HOSPITAL MEDICINE PROGRESS NOTE SERVICE DATE: 10/10/2017 SERVICE TIME: 11:27 AM Hospital Medicine/Primary Attending: Jose Maria Mittal MD NIGHT AND WEEKEND COVERAGE: After 7pm please page [phone] CHIEF COMPLAINT: left leg hematoma. SUBJECTIVE: No [...] ml/min (11/28/2014) Venous insufficiency (chronic) (peripheral) () Pima disease () Traumatic hematoma of left lower [...] CKD 3-4 Currently wrapped with dressing and DARCY. ? 5. Episode of hematemesis 5 weeks [...] 10, 2017 TIME: 11:27 AM PAGER/CONTACT #: [phone] Zhane Mcgovern III, MD 10/10/2017 2:52 PM [...] October 10, 2017 TIME: 2:48 PM PAGER: [phone] Teetee Mendez, RN, RN 10/10/2017 10:04 PM Addendum Monica paged to notify that the patient is requesting something for anxiety. Ativan 0.25 mg ordered once by AMMY Figueroa. AMMY Figueroa of [facility] notified that the patient received half of the dose of meropenem and then refused the other half related to GI upset. Previous Version Kaycee Figueroa APRN.AMMY 10/11/2017 4:00 AM Signed IM [facility] EMERGENCY DEPARTMENT NIGHT TEAM Called by general surgery resident regarding possible per drain in AM after ct complete. She discussed discontinuing lovenox and adding heparin gtt instead overnight. After procedure patient can be placed back on therapeutic lovenox. Discussed change with RN. Kaycee Figueroa CREDIT AND COLLECTION MANAGER [id number] Shauna Pulido MD 10/11/2017 6:43 AM Attested [...] 0659 10/11/17 07 - 10/12/17 0659 Shift 0297-9119 9435-6186 9481-2227 24 Hour Total 1947-6518 9158-0423 6788-1046 24 Hour Total I N T A [...] Leg hematoma, left, initial encounter 10/08/2017 - Collin disease Chronic - Venous insufficiency (chronic) (peripheral) - CKD (chronic kidney disease) stage 3, GFR 30-59 ml/min 11/28/2014 - Pulmonary emboli ([facility]) 01/30/2014 Overview Note: clinically resolved - DVT (deep venous thrombosis) ([facility]) 01/08/2014 Overview Note: recurrent 77 [...] 11, 2017 6:41 AM [facility] #: Pager: [phone] Previous Version Antione Irizarry MD 10/11/2017 11:43 [...] BS normal EXTREMITIES: left leg- wrapped in darcy. + hematoma. NEURO: No focal deficit. DATA: [...] October 11, 2017 TIME: 8 AM PAGER: [phone] Jose Maria Mittal MD 10/11/2017 9:44 AM Addendum DEPARTMENT OF HOSPITAL MEDICINE PROGRESS NOTE SERVICE DATE: 10/11/2017 SERVICE TIME: 9:22 AM Hospital Medicine/Primary Attending: Jose Maria Mittal MD NIGHT AND WEEKEND COVERAGE: After 7pm please page [phone] CHIEF COMPLAINT: left leg hematoma. Intraabdominal abscess. [...] BS normal EXTREMITIES: left leg- wrapped in darcy. Opened and examined yesterday- has large hematoma [...] ml/min (11/28/2014) Venous insufficiency (chronic) (peripheral) () Collin disease () Traumatic hematoma of left lower [...] for?CKD 3-4 Currently wrapped with dressing and DARCY. ? 5. Episode of hematemesis 5 weeks [...] 11, 2017 TIME: 9:22 AM PAGER/CONTACT #: [phone] Previous Version Chaplain Daley Chaplain 10/11/2017 12:05 PM Signed [facility] Spiritual Care Visit- Brief Note Name: Dia Mccullough Date: October 11, 2017 Notes: Per PT has multiple health issues and was scheduled for a test. She looked to be calm, took a prayer and was thankful for the [place] support. Ict Developer Signature: Chaplain Thuy To contact the Spiritual Care Department: Please call [phone] or Page the On-Call at pager [phone] Thank you for the opportunity to be of service. This is an electronically created document. IF PRINTED, PLEASE DO NOT REMOVE FROM THE CHART OR MODIFY PRINTED COPY. Chaplain Daley Chaplain 10/11/2017 12:06 PM Signed Spiritual Care Record ? Anointing/[place] PATIENT NAME: Dia Mccullough DATE: October 11, 2017 NOTE: Patient was anointed by Fr. ireland from [facility] on (date): 10/11/17. Signature: Chaplain Thuy Question? Please contact the Spiritual Care Department for assistance. This is an electronically created document. IF PRINTED, PLEASE DO NOT REMOVE FROM THE CHART OR MODIFY PRINTED COPY. Estrella Gómez RN, RN 10/11/2017 1:39 PM Signed [facility] NURSE PROGRESS NOTE SERVICE DATE: 10/11/2017 SERVICE [...] scanned documents. Patient seen by Carol Neal LAUNDERER HAND and lacey RN. Left lower leg hematoma with area of congealed blood and distal fluid filled area. Xeroform, dry gauze dressing, and DARCY wrap daily. Plastic Surgery consulted for hematoma evacuation. Wound care to follow. SIGNATURE: Laly Justice RN PATIENT NAME: Dia Mccullough DATE: October 11, 2017 TIME: 3:13 PM CONTACT#: [id number] Misael Wei MD 10/11/2017 3:38 PM Signed [...] 2017 TIME: 3:22 PM PAGER/CONTACT #: [phone] Timothy Rush MD 10/11/2017 3:56 PM Signed UPDATED [...] Medical Record dated 10/08/2017 @ 11:51 PM. Timothy Rush MD 10/11/2017 4:31 PM Signed INTERVENTIONAL RADIOLOGY POST PROCEDURE NOTE DATE: 10/11/17 NAME: Dia Mccullough LOG ID: [id number] Pre-Procedure Diagnosis: Pelvic abscess Logistics Planner: Surgeon(s) and Role: * Timothy Rush - Primary Procedure: CT guided placement [...] BS normal EXTREMITIES: left leg- wrapped in darcy. + hematoma. NEURO: No focal deficit. DATA: [...] October 12, 2017 TIME: 8 AM PAGER: [phone] Shauna Pulido MD 10/12/2017 9:21 AM Attested [...] O2 Therapy: Room Air IANDO: Date 10/11/17 0700 - 10/12/17 0659 10/12/17 07 - 10/13/17 0659 Shift 4646-7189 2437-4615 7502-3796 24 Hour Total 3769-1314 2936-2997 7967-1483 24 Hour Total I N T A K E PO 360 120 480 PO 360 120 480 IV 1100 1100 1000 1000 LR 1000 1000 1000 1000 Meropenem (Merrem) 100 100 Irrigants 5 5 Irrigant/Flush Amount In (Drain/Tube 10/11/17 Toby Sherwood Left Lower Quadrant Abdomen Drain #1) 5 5 Shift Total 1253 398 1716 1000 1000 O U T P U [...] Leg hematoma, left, initial encounter 10/08/2017 - Collin disease Chronic - Venous insufficiency (chronic) (peripheral) - CKD (chronic kidney disease) stage 3, GFR 30-59 ml/min 11/28/2014 - Pulmonary emboli (HCC) 01/30/2014 Overview Note: clinically resolved - DVT (deep venous thrombosis) ([facility]) 01/08/2014 Overview Note: recurrent 77 year old female with diverticulitis and presacral fluid/gas collection. -Regular diet - Continue SOFIA drain - Abx per ID - IR plans CT pelvis with abscessogram in 1 week. - Therapeutic lovenox per hematology - she will need to have an outpatient colonoscopy in 6-8 weeks after discharge. Shauna Pulido MD General Surgery PGY-4 October 12, 2017 9:21 AM CCF #: Pager: [phone] Joan Masters, RN, RN 10/12/2017 10:02 AM Signed CARE MANAGEMENT: ASSESSMENT AND DISCHARGE PLAN SERVICE DATE: 10/12/2017 SERVICE TIME: 955 PRIMARY CARE PHYSICIAN: Rika Wheeler MD ADMISSION STATUS: Inpatient Needs Prior to Discharge: Wound Care;Home Care Order;OT/PT Evaluation MEDICAL: Patient/Program Services Assistant Stated Goals: To improve my functional status Health Insurance: AET[employer] MEDICARE PPO Aet Medicare Health Issues Impacting Discharge Plan: None [...] Wheelchair Has the Patient Been in a [facility] Facility in the Past 30 days? No [...] 0 I feel financially burdened by my [id number] expenses for my prescription medication: Disagree mostly [...] Yes HHC POTENTIAL TRANSITION PLANS Home Home Prison OT/PT Chart reviewed, spoke with RN. Spoke with pt at bedside who reports she is from a single story home alone, but has family support. Would like [facility] for wound care and would be agreeable to home PT/OT if needed. Await PT/OT eval (ordered) for further planning. SIGNATURE: Joan Masters RN PATIENT NAME: Dia Mccullough DATE: October 12, 2017 TIME: 9:56 AM PAGER/CONTACT #: [phone] Lacy Valdez MD 10/12/2017 8:12 PM Cosign [...] hematoma. PAST MEDICAL HISTORY Diagnosis Date - Collin disease - Asthma - CKD (chronic kidney [...] HTN (hypertension) - Hypercholesterolemia - Inflammatory polyarthritis ([facility]) Dr. Hansen - Inflammatory polyarthropathy - Normocytic anemia - PE (pulmonary thromboembolism) ([facility]) 01/05/14 Bilat, extensive - Pulmonary [...] Take 1 tablet by mouth once daily. 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 She understands this [...] 2017 TIME: 1:46 PM PAGER/CONTACT #: [phone] JUJU Medina 10/12/2017 2:52 PM Signed Occupational Therapy Evaluation SERVICE DATE: 10/12/2017 SERVICE TIME: 1336 to 1406 ROOM: [id number] Recommended Discharge Disposition: Subacute/SNF Recommended Discharge Disposition [...] evaluation was minimal/moderate, comorbidities affecting occupational performance: Pima's, CKD, DVT/PE, fibromyalgia, HTN, R hip endo [...] Weakness (generalized);Unsteadiness on feet Interventions Provided: Evaluation;Self Prison Management (43108) $ Evaluation-Moderate (24863) Billed Units: 1 unit Self Prison Management (67167) Treatment Minutes: 14 1 unit Skilled Intervention(s): [...] was brought here for surgical eval from [place], but declined operative intervention and requested to [...] more bleeding, and she went to the [place] ED this morning. She was discharged back home after wound evaluation and no finding of circulatory compromise. Her son then brought her back to the ED with a concern over abdominal pain and insistent on hospitalization per [place] ED notes. Eval included CT abdomen which showed a 5 cm abscess/phlegmon in the same area as the original perforation, and she was recommended to be transferred to have IR evaluation of percutaneous drainage. 10/11 Procedure: CT guided placement of abscess drainage catheter 77 year old female with diverticulitis and presacral fluid/gas collection. Continues SOFIA drain Active Hospital Problems Diagnosis - Intra-abdominal abscess (HCC) - Traumatic hematoma of left lower leg - Leg hematoma, left, initial encounter - Pima disease - Venous insufficiency (chronic) (peripheral) - CKD (chronic kidney disease) stage 3, GFR 30-59 ml/min - Pulmonary emboli ([facility]) clinically resolved - DVT (deep venous thrombosis) ([facility]) recurrent PAST MEDICAL HISTORY Diagnosis Date - Collin disease - Asthma - CKD (chronic kidney [...] HTN (hypertension) - Hypercholesterolemia - Inflammatory polyarthritis ([facility]) Dr. Hansen - Inflammatory polyarthropathy - Normocytic anemia - PE (pulmonary thromboembolism) ([facility]) 01/05/14 Bilat, extensive - Pulmonary [...] Post acute placement Relevant Past Medical History: Pima's, CKD, DVT/PE, fibromyalgia, HTN, R hip endo 2013 back sx, Patient Report: Pt in room cooperative and asking to get out of bed. Pain: 8/10 L LE after movement Home Environment Patient Lives With: Self/Alone Assistance Available: multimedia services manager (Dtr nearby) Entry To Home: No Stairs [...] complete details for this therapy evaluation/treatment. SIGNATURE: ASHLEY Medina/Marina PATIENT NAME: Dia Mccullough DATE: October 12, 2017 TIME: 2:45 PM PAGER: [phone] Karin Dow MD 10/12/2017 6:00 PM Signed DEPARTMENT OF HOSPITAL MEDICINE PROGRESS NOTE SERVICE DATE: 10/12/2017 SERVICE TIME: 3:16 PM Hospital Medicine/Primary Attending: Karin Dow MD NIGHT AND WEEKEND COVERAGE: From 7am - 7pm, please call [phone] After 7pm, please call cross cover pager #[phone] Subjective INTERVAL HPI: Patient seen and examined. [...] BS normal EXTREMITIES: left leg- wrapped in darcy. Opened and examined yesterday- has large hematoma [...] lovenox for?CKD 3-4, continue with dressing and DARCY. ? 5. Episode of hematemesis 5 weeks [...] 2300 vte non-pharmacologic prophylaxis - none indicated (hi,pr) 10/08/17 230 vte current anticoag therapy ([place], [place]) VTE Prophylaxis: VTE prophylaxis appropriate Disposition: SNF Plan of care discussed with: Patient SIGNATURE: Karin Dow MD PATIENT NAME: Dia Mccullough DATE: October 12, 2017 TIME: 3:16 PM PAGER/CONTACT #: [phone] [phone] Joan Masters RN, RN 10/12/2017 3:22 PM Signed CARE MANAGEMENT PROGRESS NOTE SERVICE DATE: 10/12/2017 SERVICE TIME: 1521 LOS: 1 day Needs Prior to Discharge: Accepting Facility;Bed Availability;Precertification;Discharge Transportation Spoke with Pt after PT/OT evwaldemar, pt agreeable to SNF at [place]. Would like [facility] as first choice. Will need precert. SIGNATURE: Joan Masters RN PATIENT NAME: Dia Mccullough DATE: October 12, 2017 TIME: 3:21 PM PAGER/CONTACT #: [phone] Radha Aceves PT 10/12/2017 3:38 PM Signed Physical Therapy Evaluation SERVICE DATE: 10/12/2017 SERVICE TIME: 1455 to 1520 ROOM: [place] [id number] Recommended Discharge Disposition: Subacute/SNF Justification For Post [...] gait and mobility-other Interventions Provided: Evaluation;Therapeutic Activity (68163) $ Evaluation-Low (76727) Billed Units: 1 unit Therapeutic Activity (14919) Treatment Minutes: 9 1 unit Skilled Intervention(s): [...] G CODE: PT 6 Clicks Score: 17 (10/12/171454) Mobility: Walking and Moving Around Current Status (G8978): CK (10/12/171454) Mobility: Walking and Moving Around Goal Status (G8979): CJ (10/12/171454) Based on clinical assessment and the score on the 6 Clicks Functional Assessment Tool, the G code and corresponding severity modifiers are documented above. SUBJECTIVE: Current Hospital Course: Chart reviewed; ? This is a 77 year old female who has a complicated recent medical history starting Michelle 11 when she was diagnosed with diverticular abscess/perforation and septic shock. ?She was brought here for surgical eval from [place], but declined operative intervention and requested to [...] more bleeding, and she went to the [place] ED this morning. ?She was discharged back home after wound evaluation and no finding of circulatory compromise. ?Her son then brought her back to the ED with a concern over abdominal pain and insistent on hospitalization per [place] ED notes. ?Eval included CT abdomen which showed a 5 cm abscess/phlegmon in the same area as the original perforation, and she was recommended to be transferred to have IR evaluation of percutaneous drainage.??? Reason for Physical Therapy Consult : weakness Relevant Past Medical History: Pima's, CKD, DVT/PE, fibromyalgia, HTN, R hip endo 2013 back sx, Active Hospital Problems Diagnosis - Intra-abdominal abscess (HCC) - Traumatic hematoma of left lower leg - Leg hematoma, left, initial encounter - Collin disease - Venous insufficiency (chronic) (peripheral) - CKD (chronic kidney disease) stage 3, GFR 30-59 ml/min - Pulmonary emboli (HCC) clinically resolved - DVT (deep venous thrombosis) (HCC) recurrent PAST MEDICAL HISTORY Diagnosis Date - Pima disease - Asthma - CKD (chronic kidney [...] Environment Patient Lives With: Self/Alone Assistance Available: multimedia services manager (Dtr nearby) Entry To Home: No Stairs [...] 12, 2017 TIME: 3:33 PM PAGER/CONTACT #: [phone] Summer Farias, Dockworker 10/12/2017 3:45 PM Signed SNF referral sent to [facility] Debbie Hilton RN, RN 10/13/2017 11:09 AM Signed Received message through Joan Masters Striker Off that [facility] will be able to accept pt at [...] non-tender, BS normal, No masses or organomegaly. SOFIA drain c/d/i EXTREMITIES: Extensive bruising, LLE wrapped NEURO: Grossly normal cognition, motor function, and cranial nerves III-XII DATA: Diagnostic tests reviewed for today's visit: Most recent labs and imaging results. Assessment/Plan 1. Intra-abdominal Abscess 2/2 Complicated Diverticulitis - await ID/Sens, currently with SOFIA drain and on meropenem. Abscessogram next week per IR. 2. Acute LLE hematoma - large, evaluated by Plastics and non-operative mgmt being pursued. 3. Hypercoag State with Mult DVT/PE - currently on once daily therapeutic Lovenox 4. A/C Blood Loss Anemia - 2/2 #2. Stable H/H, follow. 5. CKF S3 6. Collin's Dz - prednisone 7. PMR/Inflammatory Polyarthritis Medication and Non-Pharmacologic VTE Prophylaxis/Anticoagulants Anticoagulant AND Antiplatelet Medications Start Dose Route Frequency Ordered Stop 10/11/17 1800 enoxaparin 70 mg injection (LOVENOX) 1 mg/kg/dose SUBCUTANEOUS EVERY 24 HOURS 10/11/17 1736 -- 10/08/172299 vte non-pharmacologic prophylaxis - none indicated (hi,oh) 10/08/17 230 vte current anticoag therapy (hi,pr) VTE Prophylaxis: VTE prophylaxis appropriate SIGNATURE: Lory Garces MD PATIENT NAME: Dia Mccullough DATE: October 13, 2017 TIME: 11:11 AM PAGER: Vincent Hilton, RN, RN 10/13/2017 2:45 PM Signed [facility] She will start precert for pt for [...] no other allergic symptoms. Could go to ec on these. Has follow up abscessogram in [...] 2017 TIME: 12:15 PM PAGER/CONTACT #: [phone] Previous Version Lory Garces MD 10/14/2017 12:52 [...] non-tender, BS normal, No masses or organomegaly. SOFIA drain c/d/i EXTREMITIES: Extensive bruising, LLE wrapped NEURO: Grossly normal cognition, motor function, and cranial nerves III-XII DATA: Diagnostic tests reviewed for today's visit: Most recent labs and imaging results. Assessment/Plan 1. Intra-abdominal Abscess 2/2 Complicated Diverticulitis - Rx with SOFIA drain and on meropenem in-house. Patient refuses [...] follow. ? 5. CKF S3 ? 6. Collin's Dz - prednisone ? 7. PMR/Inflammatory Polyarthritis Medication and Non-Pharmacologic VTE Prophylaxis/Anticoagulants Anticoagulant AND Antiplatelet Medications Start Dose Route Frequency Ordered Stop 10/11/17 1800 enoxaparin 70 mg injection (LOVENOX) 1 mg/kg/dose SUBCUTANEOUS EVERY 24 HOURS 10/11/17 1736 -- 10/08/17 2300 vte non-pharmacologic prophylaxis - none indicated (fl,oh) 10/08/17 2300 vte current anticoag therapy ([place], [place]) VTE Prophylaxis: VTE prophylaxis appropriate SIGNATURE: Lory Garces MD PATIENT NAME: Dia Mccullough DATE: October 14, 2017 TIME: 12:49 PM PAGER: Vincent Hilton, RN, RN 10/14/2017 2:41 PM Signed Spoke with Allie @ [facility]. They cancelled precert for this patient thinking she would not come until next week. Asked that they get new precert. Lory Garces MD 10/14/2017 2:45 PM Signed DISCHARGE SUMMARY PATIENT NAME: Dia Mccullough Admission Information Admission Information ADMIT DATE: 10/08/2017 DISCHARGE DATE: 10/14/2017 MY DOCTORS AND MEDICAL TEAM: My Main Hospital Doctor: Lory Garces Primary Care Provider: Rika Wheeler MD My Medical Team Members: Treatment [...] GFR 30-59 ml/min Venous insufficiency (chronic) (peripheral) Pima disease Traumatic hematoma of left lower leg Leg hematoma, left, initial encounter Resolved Problems: * No resolved hospital problems. * OPERATIONS PERFORMED WHILE IN THE HOSPITAL: None IMPORTANT TEST/PROCEDURES: No procedures performed TEST RESULTS NOT AVAILABLE AT THIS TIME: No pending results Discharge Disposition Discharge Disposition: [facility] Facility - Greater than 30 Days Activity When You Leave the Hospital Resume pre-hospital activity Diet Instructions Resume your pre-hospital diet Follow Up Appointments Follow-Up Appointment When: In 4 weeks Misael Wei [phone] [address] [facility] [address] [facility] [address] PCP Requested Referral Follow-Up Appointment When: In 1 week Rika Wheeler [phone] [address] [facility] [address] PCP Requested Referral Additional Provider to Provider Information: 1. ?Intra-abdominal Abscess 2/2 Complicated Diverticulitis - Rx with SOFIA drain and on meropenem in-house. ?Patient refuses PICC line and IV anti-biotics despite d/w me and ID. Cx growing Klebsiella, Clostridium, Yeast, and unknown GPC, and ID changed abx to Augmentin, Cipro, and Fluconazole. Rx for at least 4 weeks and through resolution of abscess. Abscessogram not able to be performed due to insurance reasons at [place], d/w patient, and she would prefer to still go to [place] and get CT scan only even though [...] follow. ? 5. ?CKF S3 ? 6. ?Pima's Dz - prednisone ? 7. ?PMR/Inflammatory Polyarthritis FOLLOW-UP APPOINTMENTS ALREADY SCHEDULED WITH A [facility] PROVIDER: No future appointments. DISCHARGE MEDICATION: Current [...] RN, RN 10/14/2017 6:23 PM Addendum 1822- [facility] has not called back stating if the patient has received precert. RN spoke with Joan medicare contact specialist and she states she has not heard anything back from [place]. Patient updated. 1630-Per medicare contact specialist Debbie Hilton patients precert is no longer active and states that [facility] is working towards new precert for later today. RN and medicare contact specialist updated patient on discharge situation. Previous Version Keya Robles RN, RN 10/15/2017 9:52 AM Signed CARE MANAGEMENT PROGRESS NOTE SERVICE DATE: 10/15/2017 SERVICE TIME:9:49 A.M. Spoke with Allie, staff member at [facility]. They do not have pre-cert at this time so patient is unable to come to them this weekend. The earliest would be Tuesday, if they can obtain if at that time. LOS: 4 days SIGNATURE: Keya Robles RN PATIENT NAME: Dia Mccullough DATE: October 15, 2017 TIME: 9:49 AM PAGER/CONTACT #: [phone] Patsy Kirby MD, MD 10/16/2017 5:52 AM Signed DEPARTMENT OF HOSPITAL MEDICINE PROGRESS NOTE SERVICE DATE: 10/15/2017 SERVICE TIME: 8:18 PM Hospital Medicine/Primary Attending: Patsy Kirby MD Subjective INTERVAL HPI: Pt doing fine, no fever,nausea or vomiting,abdominal pain better.looking forward to therapy at [facility]. MEDICATIONS: Reviewed Current Facility-Administered Medications: amoxicillin-clavulanic acid [...] 650 mg ORAL q 4 H PRN Timothy Rush iv contrast (radiology procedure) INTRAVENOUS DIRECTED PRN Timothy Rush enoxaparin 70 mg injection (LOVENOX) 1 mg/kg/dose SUBCUTANEOUS q 24 HR Jose Maria Kyrie 70 mg at 10/15/17 1810 HYDROcodone 5 mg - acetaminophen 325 mg tablet (NORCO) 1 tablet ORAL q 4 H PRN Kaycee (Slip Operator) Carolina 1 tablet at 10/15/17 0857 polyethylene [...] Gold Clemens Last Rate: 100 mL/hr at 10/15/175 100 mL/hr at 10/15/17 004 guaiFENesin 200 [...] soft, non-tender, BS normal, No masses palpable ?SOFIA drain c/d/i EXTREMITIES: Extensive bruising, LLE wrapped [...] Leg hematoma, left, initial encounter 10/08/2017 - Pima disease Chronic - Venous insufficiency (chronic) (peripheral) - CKD (chronic kidney disease) stage 3, GFR 30-59 ml/min 11/28/2014 - Pulmonary emboli (HCC) 01/30/2014 Overview Note: clinically resolved - DVT (deep venous thrombosis) (HCC) 01/08/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 ?Intra-abdominal Abscess 2/2 Complicated Diverticulitis - Rx?with SOFIA drain and on meropenem in-house. ?Patient refuses PICC line and IV anti-biotics despite d/w me and ID. ?Cx growing Klebsiella, Clostridium, Yeast, and unknown GPC, and ?ID changed abx to Augmentin, Cipro, and Fluconazole. ?Rx for at least 4 weeks and through resolution of abscess. ?Abscessogram not able to be performed due to insurance reasons at [place], d/w patient, and she would prefer to still go to [place] and get CT scan only even though [...] follow. ? 5. ?CKF S3 ? 6. ?Collin's Dz - prednisone ? ? 7. ?PMR/Inflammatory [...] 2300 vte non-pharmacologic prophylaxis - none indicated (hi,oh) 10/08/17 2300 vte current anticoag therapy (hi,pr) Disposition: SNF,pending precert Plan of care discussed with: Patient and RN SIGNATURE: Patsy Kirby MD PATIENT NAME: Dia Mccullough DATE: October 15, 2017 TIME: 8:18 PM PAGER/CONTACT #: monica castano etx [phone] Patsy Kirby MD, MD 10/17/2017 3:57 AM [...] 650 mg ORAL q 4 H PRN Timothy Rush iv contrast (radiology procedure) INTRAVENOUS DIRECTED PRN Timothy Rush enoxaparin 70 mg injection (LOVENOX) 1 mg/kg/dose SUBCUTANEOUS q 24 HR Jose Maria Kyrie 70 mg at 10/16/17 1710 HYDROcodone 5 mg - acetaminophen 325 mg tablet (NORCO) 1 tablet ORAL q 4 H PRN Kaycee Zamora) Carolina 1 tablet at 10/15/17 0857 polyethylene [...] soft, non-tender, BS normal, No masses palpable ?SOFIA drain c/d/i EXTREMITIES: Extensive bruising, LLE wrapped [...] ?Intra-abdominal Abscess 2/2 Complicated Diverticulitis - Rx?with SOFIA drain and on meropenem in-house. ?Patient refuses PICC line and IV anti-biotics despite d/w me and ID. ?Cx growing Klebsiella, Clostridium, Yeast, and unknown GPC, and ?ID changed abx to Augmentin, Cipro, and Fluconazole. ?Rx for at least 4 weeks and through resolution of abscess. ?Abscessogram not able to be performed due to insurance reasons at [place], d/w patient, and she would prefer to still go to [place] and get CT scan only even though [...] 2300 vte non-pharmacologic prophylaxis - none indicated (hi,oh) 10/08/17 2300 vte current anticoag therapy (hi,pr) Disposition: SNF,pending precert Plan of care discussed with: Patient and RN SIGNATURE: Patsy Kirby MD PATIENT NAME: Dia Mccullough DATE: October 16, 2017 TIME: 10:00 PM PAGER/CONTACT #: monica castano etx [phone] CBC W/DIFF, AUTOMATED Collected: 09/29/2017 Status: F Source: ANNMARIE 5:05 AM [facility] REPOSITORY TYPE CODE TESTS RESULT OUT OF [...] [facility] [address] [place], [address] BASIC METABOLIC Collected: 09/29/2017 Status: F Source: ANNMARIE PROFILE (BMP) 5:05 AM [facility] REPOSITORY TYPE CODE TESTS RESULT OUT OF [...] [facility] [address] [place], [address] DISCHARGE SUMMARY Observed: 09/27/2017 Status: F Source: ANNMARIE 9:27 PM [facility] REPOSITORY [facility] Medical Records Department [address] [place] [address] Discharge Summary 09/27/172124 MR#: [id number] Acct: [id number] Name: DIA MCCULLOUGH Rep #: [id number] : 1940 77 From: Alejo Ortega MD PCP: OUT OF TOWN DOCTOR Status: ADM IN Y Location: TCU [facility] Discharge Date and Diagnosis - Problem List [...] strengthening, prior to discharge home. Discharge to [facility] living for respite stay, resident looking [...] take at Discharge Fluticasone 0.05% [Flonase Nasal Eunice] 1 spray NASAL PRN PRN 09/18/17 Omeprazole [...] PO DAILYCM #30 cap Primary Care Physician: [facility] Doctor,Out of [Primary Care Provider] - Please [...] DISCHARGE INSTRUCTION Observed: 09/27/2017 Status: F Source: ANNMARIE 9:25 PM [facility] REPOSITORY [facility] Medical Records Department [address] [place] [address] Instructions for Home/Discharge Instructions 09/27/172121 MR#: [id number] Acct: [id number] Name: DIA MCCULLOUGH Rep #: [id number] : 1940 77 From: Alejo Ortega MD [...] take at Discharge Fluticasone 0.05% [Flonase Nasal Eunice] 1 spray NASAL PRN PRN 09/18/17 Omeprazole [...] PO DAILYCM #30 cap Primary Care Physician: [facility] Doctor,Out of [Primary Care Provider] - Please follow up with your Primary Care Physician in: 1 week. Proposed Discharge Date: 09/30/17 09/27/172124 <Electronically signed by Alejo Ortega MD> Date Alejo Orteag MD CC: OUT OF [facility] DOCTOR CBC W/DIFF, AUTOMATED Collected: 09/22/2017 Status: C Source: [place] 5:10 AM [facility] REPOSITORY TYPE CODE TESTS RESULT OUT OF [...] 1239 PATH REV previously reported as: September alta Performed By: #### L100.0100 #### [facility] [address] [facility] [place], [place], [address] BASIC METABOLIC Collected: 09/22/2017 Status: F Source: ANNMARIE PROFILE (BMP) 5:10 AM [facility] REPOSITORY TYPE CODE TESTS RESULT OUT OF [...] #### [facility] [address] [facility] [place], [address] HISTORY AND PHYSICAL Observed: 09/21/2017 Status: F Source: [place] EXAM 9:20 PM [facility] REPOSITORY [facility] Medical Records Department [address] [place] [address] History and Physical 09/21/172055 MR#: [id number] Acct: [id number] Name: DIA MCCULLOUGH Rep #: [id number] : 1940 77 From: Alejo Ortega MD PCP: OUT OF TOWN DOCTOR Status: ADM IN Y Location: [place] [address] Problem List (1) Debility Status: Acute (2) [...] with below past medical history presented to [facility] Emergency Department 09/18/2017 with bilateral lower extremity DVT. 09/18/2017 EKG sinus tachycardia, left axis deviation. Resident at [facility], LAUNDERER HAND ordered doppler ultrasound of legs positive for bilateral lower extremity DVT. History of DVT, PE. Previously on coumadin, stopped 08/24/2017 due to bowel perforation, sepsis. Resident was at [facility] and refused surgery, she was referred to hospice. Patient graduated hospice when she did not of GI bleed. Transfused 2 units PRBC 1 day prior to [facility] Emergency Department, felt better after transfusion. Hemoglobin [...] surgery. 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 Lives: Jail Smoking Status: Never smoker Tobacco Use: Non-smoker [...] daily, Senna/colace 1 tablet BID, Dulcolax 10MG [place] daily PRN. 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 * Hypertension - Metoprolol 12.5MG BID. * GERD - Pantoprazole 20MG daily. * Pima - Prednisone 5MG BID. 09/21/170 <Electronically signed by Alejo Ortega MD> Date Alejo Ortega MD Cosigner Signature: Date (if applicable) CC: OUT OF TOWN DOCTOR; Alejo Ortega MD Signed DISCHARGE SUMMARY Observed: 09/21/2017 Status: F Source: ANNMARIE 4:00 PM [facility] REPOSITORY [facility] Medical Records Department [address] [place] [address] Discharge Summary 09/21/17 1523 MR#: [id number] Acct: [id number] Name: DIA MCCULLOUGH Rep #: [id number] : 1940 77 From: Philippe DUNCAN PCP: OUT OF TOWN DOCTOR Status: ADM IN Y Location: [place] [address] ADDENDUM by Mansoor Llamas MD on 09/21/17 [...] have been reviewed. Inpatient E AND M: [id number] Disch Hosp 09/21/17 1600 <Electronically signed by [...] (deep venous thrombosis) (Acute) Chronic venous stasis Pima Disease CKDIII Hx Bowel perforation and GI [...] GI bleed, bowel perforation, CKD stage III, Pima's disease, chronic venous insufficiency, who presented to [...] He was advised that she go to jail at this time. The patient remained in stable condition and was discharged to TCU when approved. She will continue therapeutic Lovenox as an outpatient. This patient was seen by Philippe Alfaro PA-C under the supervision of Doctor Llamas. [] Discharge Diet: No Restrictions Discharge Activity: Return to Normal Activity Home Medications: Medications to take at Discharge Fluticasone 0.05% [Flonase Nasal Eunice] 1 spray NASAL PRN PRN 09/18/17 Omeprazole [...] PO QHS #5 tab Primary Care Physician: [facility] Doctor,Out of [Primary Care Provider] - Please follow up with your Primary Care Physician in: 2 weeks Additional Instructions: Apply compression socks BL daily. Disposition: [facility] facility Minutes spent on discharge:: 35 Patient [...] Llamas MD CC: DAKOTA Alfaro; OUT OF [facility] DOCTOR; Mansoor Llamas MD Signed TRANSFER TO [facility] Observed: 09/21/2017 Status: F Source: [facility] 3:56 PM [facility] REPOSITORY [facility] Medical Records Department [address] [place] [address] Transfer to [facility] MR#: [id number] Acct: [id number] Name: DIA MCCULLOUGH Rep #: [id number] : 1940 77 From: Philippe DUNCAN PCP: OUT OF TOWN DOCTOR Status: ADM IN DIA MCCULLOUGH (Patient) (Health Ins. Claim No.) (Day of Discharge to Facility) Certification of patient admission REQUIRED AT TIME OF ADMISSION. I CERTIFY THAT POST-HOSPITAL ECF SERVICES ARE REQUIRED TO BE GIVEN ON AN IN-PATIENT BASIS BECAUSE OF THE ABOVE NAMED PATIENT'S NEED FOR [facility] CARE ON A CONTINUING BASIS FOR THE CONDITION(S) FOR WHICH HE/SHE WAS RECEIVING IN-PATIENT HOSPITAL SERVICES PRIOR TO HIS/HER TRANSFER TO THE ECF. 09/21/17 1523 <Electronically signed by Philippe DUNCAN> [...] - Follow Up Care Primary Care Physician: [facility] Doctor,Out of [Primary Care Provider] - Please follow up with your Primary Care Physician in: 2 weeks <Mansoor Llamas - Last Filed: 09/21/17 15:51> - Diet 09/18/17 21:10 Diet: Regular Diet Food consistency:: Regular Liquid Consistency:: Regular/Thin - Routine Orders/Code Status Suppository Type: Dulcolax 10mg Suppository Frequency: Daily PRN 09/21/17 1523 <Electronically signed by Philippe DUNCAN> Date Philippe DUNCAN CC: OUT OF [facility] DOCTOR Signed 12 LEAD ELECTROCARDIOGRAM Observed: 09/21/2017 Status: F Source: ANNMARIE 1:30 PM [facility] REPOSITORY [facility] Cardiovascular Services [address] [place] [address] 12 Lead EKG 09/18/17 1828 MR#: [id number] Acct: [id number] Name: DIA MCCULLOUGH Rep #: [id number] : 1940 77 From: Marck Thomas MD Attending Dr: Mansoor Llamas MD Status: ADM IN Ordering Dr: Meme Echevarria MD Date: 09/18/17 Location: [facility] Sex: F C Admitted: 09/18/17 Test Reason : GENERALILLNESS Blood Pressure : / mmHG Vent. Rate : 109 BPM Atrial Rate : 109 BPM P-R Int : 116 ms QRS Dur : 076 ms QT Int : 334 ms P-R-T Axes : 001 -37 034 degrees QTc Int : 449 ms Sinus tachycardia Left axis deviation Abnormal ECG Confirmed by RICKY MIN, MARCK ([id number]), editor magazine BALJINDER DAMON ([id number]) on 09/21/2017 1:30:15 PM Referred By: MAXI Confirmed By:MARCK THOMAS MD 09/21/17 1330 Date Marck Thomas MD CC: Meme Echevarria MD; OUT OF TOWN DOCTOR; Mansoor Llamas MD Signed BASIC METABOLIC Collected: 09/21/2017 Status: F Source: ANNMARIE PROFILE (BMP) 5:30 AM [facility] REPOSITORY TYPE CODE TESTS RESULT OUT OF [...] [facility] [address] [place], [address] CBC W/DIFF, AUTOMATED Collected: 09/21/2017 Status: F Source: [place] 5:30 AM [facility] REPOSITORY TYPE CODE TESTS RESULT OUT OF [...] #### [facility] [address] [place], [place], [address] HH, HEMOGLOBIN AND Collected: 09/20/2017 Status: F Source: [place] HEMATOCRIT 8:50 PM [facility] REPOSITORY TYPE CODE TESTS RESULT OUT OF RANGE REFERENCE UNITS LAB L100.1300 12.0-15.0 g/dl Low HGB 9.0 LAB L100.1400 37-47 % Low HCT 29.6 Performed By: #### L100.0600 #### [facility] [address] [place], [place], [address] TYPE AND SCREEN Collected: 09/20/2017 Status: F Source: [place] 8:50 PM [facility] REPOSITORY Order Comment: CMV NEG? N Number [...] #### [facility] [address] [place], [place], [address] CBC W/DIFF, AUTOMATED Collected: 09/20/2017 Status: F Source: [place] 5:10 AM [facility] REPOSITORY TYPE CODE TESTS RESULT OUT OF [...] [facility] [address] [place], [address] BASIC METABOLIC Collected: 09/20/2017 Status: F Source: [place] PROFILE ([facility]) 5:10 AM [facility] REPOSITORY TYPE CODE TESTS RESULT OUT OF [...] #### [facility] [address] [place], [place], [address] HH, HEMOGLOBIN AND Collected: 09/19/2017 Status: F Source: AN[place] HEMATOCRIT 8:04 PM [facility] REPOSITORY TYPE CODE TESTS RESULT OUT OF RANGE REFERENCE UNITS LAB L100.1300 12.0-15.0 g/dl Low HGB 9.1 LAB L100.1400 37-47 % Low HCT 29.6 Performed By: #### L100.0600 #### [facility] [address] [place], [place], [address] CBC W/DIFF, AUTOMATED Collected: 09/19/2017 Status: F Source: ANNMARIE 5:05 AM [facility] REPOSITORY TYPE CODE TESTS RESULT OUT OF [...] #### [facility] [address] [facility] [place], [place], [address] PROTHROMBIN TIME W/INR Collected: 09/19/2017 Status: F Source: ANNMARIE 5:05 AM [facility] REPOSITORY TYPE CODE TESTS RESULT OUT OF RANGE REFERENCE UNITS LAB L300.4150 11.7-14.9 SECONDS High PROTIME 15.7 LAB L300.4200 Normal INR 1.3 Performed By: #### L300.3900 #### [facility] [address] [facility]. [place], [place], [address] BASIC METABOLIC Collected: 09/19/2017 Status: F Source: ANNMARIE PROFILE (BMP) 5:05 AM [facility] REPOSITORY TYPE CODE TESTS RESULT OUT OF [...] #### [facility] [address] [facility] [place], [address] HISTORY AND PHYSICAL Observed: 09/18/2017 Status: F Source: [place] EXAM 10:03 PM [facility] REPOSITORY [facility] Medical Records Department [address] [place] [address] History and Physical 09/18/179 MR#: [id number] Acct: [id number] Name: DIA MCCULLOUGH Rep #: [id number] : 1940 77 From: Fredo Houser MD PCP: OUT OF TOWN DOCTOR Status: ADM IN Y Location: [place] [address] Problem List (1) History of bowel perforation [...] perforation for which she was sent to [facility] and she refused to go for [...] with assistance. She had a history of Pima's disease and she has been on prednisone [...] surgery. 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 Lives: - - Assisted living. Smoking [...] conveyed by Obey Davenport to Dr. Meme cEhevarria, Referring Physician, on 09/18/2017 20:37:55 (ET). Electronically [...] happened 3 weeks ago, was sent to [facility] but patient refused surgery. She did follow some kind of Portuguese trial for spontaneous healing of bone perforation [...] to avoid NSAIDs, Protonix twice daily. #5 Collin's disease: Continue prednisone, she follows up with [...] twice daily. This note was generated with [employer]Walk dictation software. It may contain incorrect words, spelling, and punctuation that were not noted in checking the note before signing. Code Visit Inpatient E AND M: 19406 Init Hosp L3 09/18/172202 <Electronically signed by Fredo Houser MD> Date Fredo Houser MD Cosigner Signature: Date (if applicable) CC: Fredo Houser; OUT OF TOWN DOCTOR Signed EMERGENCY DEPARTMENT Observed: 09/18/2017 Status: F Source: ANNMARIE SUMMARY 9:11 PM [facility] REPOSITORY [facility] Medical Records Department [address] [place] [address] Emergency Department Summary 09/18/17 1820 MR#: [id number] Acct: [id number] Name: DIA MCCULLOUGH Rep #: [id number] : 1940 77 From: Meme Echevarria MD PCP: OUT OF [facility] DOCTOR Status: REG ER - ER Visit [...] bowel and was septic. She was at [facility] at the time. She declined surgery and [...] extremity DVT This note was generated with [employer]Walk dictation software. It may contain incorrect words, spelling, and punctuation that were not noted in review of the chart prior to signing ED Disposition - Plan for ED Patient: Chief Complaint: General Illness Referrals: [facility] Doctor,Out of [Primary Care Provider] - What to do if you have Problems For any increased pain, shortness of breath, bleeding, nausea or vomiting, chest pain, or any unexpected problems, contact your Primary Care Provider. Call [facility] ([phone]) or report to the closest Emergency Room. Call 911 if necessary. 09/18/17 2111 <Electronically signed by Meme Echevarria MD> Date Meme Echevarria MD Cosigner Signature (If Indicated): Date CC: OUT OF TOWN DOCTOR CTA CHEST W/WO Observed: 09/18/2017 Status: F Source: [place] CONTRAST 7:41 PM [facility] REPOSITORY [facility] Imaging Services [address] [place] [address] CTA Chest W/WO Contrast MR#: [id number] Acct: [id number] Name: DIA MCCULLOUGH Rep #: [id number] : 1940 F 77 From: Obey Davenport MD PCP: OUT OF TOWN DOCTOR Status: REG ER Study: CTA Chest W/WO Contrast Date of Exam: 09/18/17 Exam# [id number] Ordering Dr: Meme Echevarria MD STUDY: CTA [...] Meme Echevarria MD; OUT OF TOWN DOCTOR Turntable Worker: Signed CBC W/DIFF, AUTOMATED Collected: 09/18/2017 Status: F Source: [place] 6:40 PM [facility] REPOSITORY TYPE CODE TESTS RESULT OUT OF [...] [facility] [address] [place], [address] BASIC METABOLIC Collected: 09/18/2017 Status: F Source: [place] PROFILE (BMP) 6:40 PM [facility] REPOSITORY Order Comment: 'TROP' Serial specimen #1, [...] #### [facility] [address] [facility] [place], [place], [id number] TROPONIN-I Collected: 09/18/2017 Status: F Source: [place] 6:40 PM [facility] REPOSITORY Order Comment: 'TROP' Serial specimen #1, #2, #3, or #4: 1 TYPE CODE TESTS RESULT OUT OF RANGE REFERENCE UNITS LAB L501.4010 <0.06 ng/mL Normal < 0.02 TROPONIN-I Result Comment: TROPONIN-I EXPECTED VALUES <0.05 NEGATIVE 0.06 - 0.59 AT RISK OF MS > OR = 0.60 SUGGEST MS Performed By: #### L500.2500, L501.4010 #### [facility] [address] [place], [address] PROTHROMBIN TIME W/INR Collected: 09/18/2017 Status: F Source: [place] 6:40 PM [facility] REPOSITORY TYPE CODE TESTS RESULT OUT OF RANGE REFERENCE UNITS LAB L300.4150 11.7-14.9 SECONDS Normal PROTIME 14.9 LAB L300.4200 Normal INR 1.2 Performed By: #### L300.3900, L300.4310 #### [facility] [address] [place], [place], [id number] PARTIAL THROMBOPLAST Collected: 09/18/2017 Status: F Source: [place] TIME 6:40 PM [facility] REPOSITORY TYPE CODE TESTS RESULT OUT OF REFERENCE UNITS RANGE LAB L300.4310 24.1-36.2 Seconds Low PTT 20.3 Performed By: #### L300.3900, L300.4310 #### [facility] [address] [place], [address] TYPE AND SCREEN Collected: 09/16/2017 Status: F Source: [place] 5:17 PM [facility] REPOSITORY Order Comment: PRETRANSFUSION HGB = 7.2 HCT = 23.4 PERFORMED AT [employer] [facility] CMV NEG?* N Give When? T+1 Irradiated? N Leukodepleted? Y Reason for Type AND Screen/Red Cells: ANEMIA TYPE CODE TESTS RESULT OUT OF RANGE REFERENCE UNITS LAB B10.0800 A Normal BLOOD TYPE GEL POSITIVE LAB B100.4000 Normal Antibody NEGATIVE Screen Performed By: #### B101.7450 #### [facility] [address] [place], [address] RC Collected: 09/16/2017 Status: F Source: [place] 5:17 PM [facility] REPOSITORY TYPE CODE TESTS RESULT OUT OF REFERENCE UNITS RANGE LAB U100.0000 [id number] TRANSFUSED PRODUCT: T AND S with Crossmatch, Red Cells COUNT: 2 Performed By: #### U100.0000 #### [facility] - refer to report for specific site DISCHARGE INSTRUCTION Observed: 09/05/2017 Status: F Source: [place] 1:44 AM [facility] REPOSITORY [facility] Medical Records Department [address] [place] [address] Discharge Instruction 09/05/17142 MR#: [id number] Acct: [id number] Name: DIA MCCULLOUGH Mauro Rep #: [id number] : 1940 77 From: Julieth Garcia DO PCP: OUT OF TOWN DOCTOR Status: REG ER ED Disposition - Plan for ED Patient: Disposition: Home or Assisted Living Chief Complaint: GI Bleed Instructions: ED Bleed UGI Stable, Taking Coumadin Referrals: [facility] Doctor,Out of [Primary Care Provider] - What to do if you have Problems For any increased pain, shortness of breath, bleeding, nausea or vomiting, chest pain, or any unexpected problems, contact your Primary Care Provider. Call [facility] ([phone]) or report to the closest Emergency Room. Call 911 if necessary. 09/05/17 014 <Electronically signed by Julieth Garcia DO> Date Julieth Garcia DO Cosigner Signature (If Indicated): Date CC: OUT OF TOWN DOCTOR EMERGENCY DEPARTMENT Observed: 09/05/2017 Status: F Source: [place] SUMMARY 1:43 AM [facility] REPOSITORY [facility] Medical Records Department [address] [place] [address] Emergency Department Summary 09/05/17 0045 MR#: [id number] Acct: [id number] Name: DIA MCCULLOUGH Rep #: [id number] : 1940 77 From: Julieth Garcia DO PCP: OUT OF TOWN DOCTOR Status: REG ER - ER Visit Summary Date of Service: 09/05/17 Chief Complaint: [] Upper and lower GI bleed History of Present Illness: The patient is a 77 F [] is a hospice patient who presents with upper and lower GI bleed. Hospice [employer] F[employer] SUPPORT SPECIALIST is at the bedside reports that she [...] Upper GI bleed Lower GI bleed Vomiting DNR-CONTROL SUPERVISOR This note was generated with ModeWalk dictation software. It may contain incorrect words, spelling, and punctuation that were not noted in review of the chart prior to signing ED Disposition - Plan for ED Patient: Chief Complaint: GI Bleed Referrals: [facility] Doctor,Out of [Primary Care Provider] - What to do if you have Problems For any increased pain, shortness of breath, bleeding, nausea or vomiting, chest pain, or any unexpected problems, contact your Primary Care Provider. Call [facility] ([phone]) or report to the closest Emergency Room. Call 911 if necessary. 09/05/17 0143 <Electronically signed by Julieth Garcia DO> Date Julieth Garcia DO Cosigner Signature (If Indicated): Date CC: OUT OF TOWN DOCTOR CBC W/DIFF, AUTOMATED Collected: 09/04/2017 Status: F Source: [place] 11:52 PM [facility] REPOSITORY TYPE CODE TESTS RESULT OUT OF [...] [facility] [address] [place], [place], [id number] PROTHROMBIN TIME W/INR Collected: 09/04/2017 Status: F Source: [place] 11:52 PM [facility] REPOSITORY TYPE CODE TESTS RESULT OUT OF REFERENCE UNITS RANGE LAB L300.4150 11.7-14.9 SECONDS High PROTIME 57.3 LAB L300.4200 High alert INR 6.5 Result Comment: CRITICAL VALUE VERIFIED. CALLED TO [facility] ED 09/05/17 0018 Latisha Regan. RESULTS READ BACK BY SAME . Performed By: #### L300.3900 #### [facility] [address] [place], [address] COMPREHENSIVE METABOLIC Collected: 09/04/2017 Status: F Source: [place]NM[place] [facility] 11:52 PM [facility] REPOSITORY TYPE CODE TESTS RESULT OUT OF [...] [facility] [address] [place], [address] 12 LEAD ELECTROCARDIOGRAM Observed: 08/26/2017 Status: F Source: [place] 11:32 AM [facility] REPOSITORY [facility] Cardiovascular Services [address] [place] [address] 12 Lead EKG 08/24/17 0841 MR#: [id number] Acct: [id number] Name: DIA MCCULLOUGH Rep #: [id number] : 1940 77 From: Jackson Uriostegui MD [...] ECG Confirmed by MOODY MIN, JACKSON ([id number]), editor magazine BALJINDER DAMON ([id number]) on 08/26/2017 11:31:51 AM Referred By: DORIS Confirmed By:JACKSON URIOSTEGUI MD 08/26/17 1131 Date Jackson Uriostegui MD CC: Artur Flores MD; OUT OF TOWN DOCTOR Signed ED NOTE Observed: 08/24/2017 Status: COMPLETED Source: [place] 11:34 PM [facility] OTHER CAMPUS REPOSITORY HNO ID: [id number] Author: Tiny (Rn) GAURANG Moore Service: Emergency Medicine Author Type: Registered Nurse Type: ED Notes Filed: 08/24/2017 11:36 PM Note Text: Pt discharged with scripts x4 by Jaden RISK CONTROL REPRESENTATIVEzigzag tunnel elastic operator. Pt left via w/c with family. ED NOTE Observed: 08/24/2017 Status: COMPLETED Source: [place] 10:28 PM [facility] REPOSITORY HNO ID: [id number] Author: Coty Rajan (Sw) Service: Social Work Author Type: Access Assoc Type: ED Notes Filed: 08/24/2017 10:31 PM Note Text: SOCIAL WORK PROGRESS NOTE SERVICE DATE: 08/24/2017 SERVICE TIME: 21:30 LOS: 0 days Received consult from bedside RN re: Pt's family has questions regarding hospice Met with pt's dtr, son and granddaughter; answered questions regarding hospice in the home, which pt (per family) has agreed on. Pt's dtr requested contact information for [facility]; provided same. Pt's dtr states she will contact [facility] hours tonight. Provided on-going support and validation to pt's family. Time Spent (minutes): 45 SIGNATURE: SAMUEL Cazares PATIENT NAME: Dia Mccullough DATE: August 24, 2017 TIME: 10:28 PM PAGER/CONTACT #: [phone] ED NOTE Observed: 08/24/2017 Status: COMPLETED Source: [place] 10:03 PM [facility] REPOSITORY HNO ID: [id number] Author: Ana Carlson RN Service: Nursing Author [...] ED NOTE Observed: 08/24/2017 Status: COMPLETED Source: [place] 9:42 PM [facility] REPOSITORY HNO ID: [id number] Author: Ana Carlson RN Service: Nursing Author Type: Registered Nurse Type: ED Notes Filed: 08/24/2017 9:43 PM Note Text: Notified Dr Thibodeaux that patient is requesting zofran for nausea, Dr said ok to give. CNDS Observed: 08/24/2017 Status: COMPLETED Source: [place] 9:37 PM [facility] OTHER [facility] REPOSITORY HNO ID: [id number] Author: Gold (Teresita Thibodeaux Service: General Surgery Author Type: Resident Type: Discharge Summaries Filed: 08/24/2017 9:45 PM Note Text: DISCHARGE NOTE (Patient Admitted Less than 48 Hours) SERVICE DATE: 08/24/2017 SERVICE TIME: 9:37 PM ADMISSION DATE: 08/24/2017 Ms Mccullough presented to the ED as a transfer from [place]. She had gone there with an acute [...] Take 25 mg by mouth once daily. (Chief Controller) ranitidine (ZANTAC) 150 mg Take 150 mg [...] August 24, 2017 TIME: 9:37 PM PAGER: [phone] NURSING PROG Observed: 08/24/2017 Status: COMPLETED Source: [place] 7:25 PM [facility] REPOSITORY HNO ID: [id number] Author: Jaden SargentRn) GAURANG Martinez Service: (none) Author Type: Registered Nurse Type: Nursing Progress Note Filed: 08/24/2017 11:29 PM Note Text: Nursing Progress Note Patient Name: Dia Mccullough Patient Location: [address] [address]: Assumed care of patient, assessment completed [...] ED NOTE Observed: 08/24/2017 Status: COMPLETED Source: [place] 6:50 PM [facility] REPOSITORY HNO ID: [id number] Author: Jalen SargentRn) GAURANG Barrios Service: Emergency Medicine Author Type: Registered [...] insisting that she could get care at [place] ED, continues to insist on leaving. Pt is now agreeable to stay and receive antibiotic tx but still wants to go home. Observed: 08/24/2017 Status: F Source: [facility] BLOOD 5:00 PM [facility] REPOSITORY Test performed at [facility] No growth Performed By: #### C_BLO #### [facility] [address] [address] ED NOTE Observed: 08/24/2017 Status: COMPLETED Source: [place] 5:00 PM [facility] OTHER [facility]AMP[facility] REPOSITORY HNO ID: [id number] Author: Jalen SargentRn) GAURANG Barrios Service: Emergency Medicine Author Type: Registered Nurse Type: ED Notes Filed: 08/24/2017 5:26 PM Note Text: Blood cultures drawn and sent. 2nd set lac. PLAN OF CARE Observed: 08/24/2017 Status: COMPLETED Source: [place] 4:51 PM [facility] OTHER CAMPUS REPOSITORY HNO ID: [id number] Author: Aly Mills Acquisitions Editor) Service: (none) Author Type: Veneer Drier Type: Plan of Care Filed: 08/24/2017 4:51 [...] - Vioxx [Rofecoxib] GI Upset Preferred Pharmacy: [facility] Current [facility] Medications: Prior to Admission medications as of [...] Take 1 tablet by mouth once daily. (Chief Controller) 08/23/2017 Yes ranitidine (ZANTAC) 150 mg tablet [...] mouth twice daily. As directed Aly Mills Acquisitions Editor pager [phone] August 24, 2017 4:51 PM [facility] Observed: 08/24/2017 Status: COMPLETED Source: [place] 4:32 PM [facility] OTHER [place] REPOSITORY HNO ID: [id number] Author: Chaplain Mccollum (Chaplain) Service: (none) Author Type: Ict Developer Type: Allied Health Filed: 08/24/2017 4:33 PM Note Text: SPIRITUALCARE Spiritual Care Visit- Brief Note Name: Dia Mccullough Date: August 24, 2017 Notes: As toddler guide responded to page requesting visit. Pt would like a visit from a press setup operator. Sat with pt for a bit, will ask Fr to follow up. Ict Developer Signature: CHAPLAIN Veda To contact the Spiritual Care Department: Please call [phone] or Page the On-Call Ict Developer at pager [phone] Thank you for the opportunity to be of service. This is an electronically created document. IF PRINTED, PLEASE DO NOT REMOVE FROM THE CHART OR MODIFY PRINTED COPY. HISTORY PHYSICAL Observed: 08/24/2017 Status: COMPLETED Source: [place] 4:21 PM [facility] OTHER CAMPUS REPOSITORY HNO ID: [id number] Author: Gold Thibodeaux Service: General Surgery Author Type: Resident Type: HANDP Filed: 08/24/2017 4:35 PM Note Text: Attestation signed by Baljinder Reyna at 08/24/2017 9:30 PM Attending Note [...] back to the hospital any time. Signature: Baljinder Reyna MD Date: 08/24/2017 Time: 9:28 PM HISTORY AND PHYSICAL EXAMINATION SERVICE DATE: 08/24/2017 SERVICE TIME: 4:21 PM PRIMARY CARE PHYSICIAN: Rika Wheeler MD Subjective CHIEF COMPLAINT: Abdominal pain HPI: This is a 77 year old female who reports acute worsening of her chronic abdominal pain, initially saying pain worsened this AM, but then saying it worsened 2 days ago. She has also had fever, lightheadedness, and abdominal pain for 3 days. She presented to [place] ED where they did a CT scan [...] Independent PAST MEDICAL HISTORY Diagnosis Date - Pima disease - Asthma - CKD (chronic kidney [...] HTN (hypertension) - Hypercholesterolemia - Inflammatory polyarthritis ([facility]) Dr. Hansen - Inflammatory polyarthropathy - Normocytic anemia - PE (pulmonary thromboembolism) ([facility]) 01/05/14 Bilat, extensive - Pulmonary [...] Albumin 2.0, Cr 1.44 CT Abdomen/Pelvis from [place]: Small amount of free air in the [...] 24, 2017 TIME: 4:21 PM PAGER/CONTACT #: [phone] PROGRESS Observed: 08/24/2017 Status: COMPLETED Source: [place] 4:19 PM [facility] OTHER [facility] REPOSITORY HNO ID: [id number] Author: Gold Thibodeaux Service: General Surgery Author [...] PROV NOTE Observed: 08/24/2017 Status: COMPLETED Source: [place] 2:06 PM [facility] OTHER CAMPUS REPOSITORY O ID: [id number] Author: Elizabeth Nolasco MD Service: Emergency Medicine [...] been febrile and tachycardic since being at [place] ED. She endorses nausea but no vomiting. PAST MEDICAL HISTORY Diagnosis Date - Pima disease - Asthma - CKD (chronic kidney [...] - Normocytic anemia - PE (pulmonary thromboembolism) ([facility]) 01/05/14 Bilat, extensive - Pulmonary [...] 3pm. Patient with perforated viscous sent from [facility] for surgery. Patient seen by surgery and [...] round of antibiotics. Son at bedside. Nursing chief maintenance supervisor aware. Cosme Torres MD 08/24 2012 [...] no cerebellar signs Elizabeth Nolasco MD 08/25/17 5810 Observed: 08/24/2017 Status: F Source: [facility] BLOOD 2:05 PM [facility]ALTH SYSTEM REPOSITORY Test performed at [facility] No growth Performed By: #### C_BLO #### [facility] [address] [address] ED NOTE Observed: 08/24/2017 Status: COMPLETED Source: [place] 2:05 PM [facility] OTHER [facility] REPOSITORY HNO ID: [id number] Author: Jalen Allen) GAURANG Barrios Service: Emergency Medicine Author Type: Registered Nurse Type: ED Notes Filed: 08/24/2017 5:24 PM Note Text: Blood cultures drawn and sent. 1st set with IV start LAC. ED NOTE Observed: 08/24/2017 Status: COMPLETED Source: [place] 1:45 PM [facility]INIC OTHER [place] REPOSITORY HNO ID: [id number] Author: Jalen Allen) GAURANG Barrios Service: Emergency Medicine Author Type: Registered Nurse Type: ED Notes Filed: 08/24/2017 1:49 PM Note Text: Pt c/o diffuse abd pain since Tuesday getting progressively worse. Sts she feels nauseated but no vomiting. Pt seen by [place] ED dx with perforated bowel and sent here for surgery consult. TYPE AND SCREEN Collected: 08/24/2017 Status: F Source: [facility] 1:45 PM HEALTH SYSTEM REPOSITORY TYPE CODE TESTS RESULT OUT OF REFERENCE UNITS RANGE LAB ABO(LOINC) A ABO Group LAB BUSINESS PROCESS ASSOCIATE(LOINC ) RH Type Positive LAB ABSCR(LOIN C) Antibody NEGATIVE Screen LAB BBCMT(LOIN C) Comment See Below Result Comment: Screen &/or Xmatch expires in 3 days at 12 midnight. Redraw patient at that time. Performed By: #### T&S #### [facility] [address] [address] ED NOTE Observed: 08/24/2017 Status: COMPLETED Source: [place] 1:39 PM [facility] OTHER [place] REPOSITORY HNO ID: [id number] Author: Elizabeth SargentRnSegundo Johnson RN Service: (none) Author Type: Registered Nurse Type: ED Notes Filed: 08/24/2017 1:39 PM Note Text: Bed: ED-03 Expected date: Expected time: Means of arrival: Comments: Surgery Consult EMERGENCY DEPARTMENT Observed: 08/24/2017 Status: F Source: [place] SUMMARY 11:25 AM [facility] REPOSITORY [facility] Medical Records Department [address] [place] [address] Emergency Department Summary 08/24/17 0825 MR#: [id number] Acct: [id number] Name: DIA MCCULLOUGH Rep #: [id number] : 1940 77 From: Artur Flores MD [...] difficulty or waxes. She requested transfer to [place]. I spoke to [facility] transfer line and the patient will be transferred to that facility ER to ER for surgical evaluation Treatment Plan: [] Disposition: Transfer Impression: Intra-abdominal free air Possible intra-abdominal abscess Systemic inflammatory response syndrome This note was generated with ModeWalk dictation software. It may contain incorrect words, spelling, and punctuation that were not noted in review of the chart prior to signing ED Disposition - Plan for ED Patient: Chief Complaint: Abd Pain Referrals: [facility] Doctor,Out of [Primary Care Provider] - What to do if you have Problems For any increased pain, shortness of breath, bleeding, nausea or vomiting, chest pain, or any unexpected problems, contact your Primary Care Provider. Call [facility] ([phone]) or report to the closest Emergency Room. Call 911 if necessary. 08/24/17 1125 <Electronically signed by Artur Flores MD> Date Artur Flores MD Cosigner Signature (If Indicated): Date CC: OUT OF TOWN DOCTOR LACTIC ACID Collected: 08/24/2017 Status: F Source: [place] 8:40 AM [facility] REPOSITORY Order Comment: Yes/No query for Sepsis Lactate Rule Y TYPE CODE TESTS RESULT OUT OF RANGE REFERENCE UNITS LAB L503.6005 0.4-2.0 mmol/L Normal LACTIC ACID 1.6 Performed By: #### L503.6005 #### [facility] [address] [place], [address] Observed: 08/24/2017 Status: F Source: [place] CULTURE, BLOOD (WB) 8:40 AM [facility] BC No growth in 5 days. Performed By: #### M200.1000 #### [facility] [address] [place], [address] ABDOMEN/PELVIS WITH Observed: 08/24/2017 Status: F Source: [place] CONTRAST 8:25 AM [facility] REPOSITORY [facility] Imaging Services [address] [place] [address] Abdomen/Pelvis WITH Contrast MR#: [id number] Acct: [id number] Name: DIA MCCULLOUGH Rep #: [id number] : 1940 F 77 From: Adin Lara MD PCP: OUT OF TOWN DOCTOR Status: REG ER Study: Abdomen/Pelvis WITH Contrast Date of Exam: 08/24/17 Exam# [id number] Ordering Dr: Artur Flores MD STUDY: CT [...] Adin Lara MD at 10:44 EDT Tel [phone], Service support , CC: Artur Flores MD; OUT OF TOWN DOCTOR Turntable Worker: Signed FOOT MIN 3 VIEWS Observed: 08/24/2017 Status: F Source: [place] 8:25 AM [facility] REPOSITORY [facility] Imaging Services [address] [place] [address] Foot min 3 Views MR#: [id number] Acct: [id number] Name: DIA MCCULLOUGH Rep #: [id number] : 1940 F 77 From: Adin Lara MD PCP: OUT OF TOWN DOCTOR Status: REG ER Study: Foot min 3 Views Date of Exam: 08/24/17 Exam# [id number] Ordering Dr: Artur Flores MD STUDY: X-RAY [...] Adin Lara MD at 10:45 EDT Tel [phone], Service support , CC: Artur Flores MD; OUT OF TOWN DOCTOR Turntable Worker: Signed CHEST PA AND LATERAL Observed: 08/24/2017 Status: F Source: [place] 8:25 AM [facility] REPOSITORY [facility] Imaging Services [address] [place] [address] Chest PA and Lateral MR#: [id number] Acct: [id number] Name: DIA MCCULLOUGH Rep #: [id number] : 1940 F 77 From: Adin Lara MD PCP: OUT OF TOWN DOCTOR Status: REG ER Study: Chest PA and Lateral Date of Exam: 08/24/17 Exam# [id number] Ordering Dr: Artur Flores MD STUDY: X-RAY [...] Adin Lara MD at 10:46 EDT Tel [phone], Service support , CC: Artur Flores MD; OUT OF TOWN DOCTOR Turntable Worker: Signed PROTHROMBIN TIME W/INR Collected: 08/24/2017 Status: F Source: [place] 8:25 AM [facility] REPOSITORY TYPE CODE TESTS RESULT OUT OF RANGE REFERENCE UNITS LAB L300.4150 11.7-14.9 SECONDS High PROTIME 25.7 LAB L300.4200 Normal INR 2.3 Performed By: #### L300.3900 #### [facility] [address] [place], [place], [address] CBC W/DIFF, AUTOMATED Collected: 08/24/2017 Status: F Source: [place] 8:18 AM [facility] REPOSITORY TYPE CODE TESTS RESULT OUT OF [...] L100.0100 #### [facility] [address] [place], [place], [address] COMPREHENSIVE METABOLIC Collected: 08/24/2017 Status: F Source: [facility] 8:18 AM [facility] REPOSITORY TYPE CODE TESTS RESULT OUT OF [...] #### [facility] [address] [place], [place], [address] LIPASE Collected: 08/24/2017 Status: F Source: [place] 8:18 AM [facility] REPOSITORY TYPE CODE TESTS RESULT OUT OF RANGE REFERENCE UNITS LAB L501.2450 73-393 U/L Normal LIPASE 105 Performed By: #### L500.4050, L501.2450 #### [facility] [address] [place], [place], [address] PROTEIN+CREATININE Collected: Status: F Source: [place] RATIO,URINE 08/03/2017 10:15 AM [facility] REPOSITORY TYPE CODE TESTS RESULT OUT OF RANGE REFERENCE UNITS LAB L501.1200 NO RANGE EST. mg/dL Normal UR CREAT 314.00 LAB L501.1930 <11.9 mg/dL High 30.7 PROTEIN,UR.R AN. LAB L501.1940 0-200 mg/g CRE Normal PROT:CRE 98 RATIO Performed By: #### L501.0900 #### [facility] [address] [place], [place], [address] CORTISOL SERUM Collected: 08/03/2017 Status: F Source: [place] 10:05 AM [facility] REPOSITORY Order Comment: BASELINE OR POST MEDICATION STIMULATION?: 60 Min Post MED Stimulati Time Medication Given: 0900 TYPE CODE TESTS RESULT OUT OF RANGE REFERENCE UNITS LAB L509.6000 3.09-22.40 ug/dL Normal CORTISOL 18.80 Result Comment: Adult (AM) 4.30 - 22.40 ug/dL Adult (PM) 3.09 - 16.66 ug/dL Performed By: #### L509.6000 #### [facility] [address] [place], [place], [address] CBC-COMPLETE BLOOD CNT Collected: 08/03/2017 Status: F Source: [place] NO DIFF 8:35 AM [facility] REPOSITORY TYPE CODE TESTS RESULT OUT OF [...] #### [facility] [address] [facility] [place], [address] RENAL PROFILE Collected: 08/03/2017 Status: F Source: [place] 8:35 AM [facility] REPOSITORY TYPE CODE TESTS RESULT OUT OF [...] L500.3600 #### [facility] [address] [place], [address] VITAMIN D,25 HYDROXY Collected: 08/03/2017 Status: F Source: [place] 8:35 AM [facility] REPOSITORY TYPE CODE TESTS RESULT OUT OF [...] [facility] [address] [place] [place], [address] PTHIN Collected: 08/03/2017 Status: F Source: [place] 8:35 AM [facility] REPOSITORY TYPE CODE TESTS RESULT OUT OF RANGE REFERENCE UNITS LAB L509.1000 18.4-80.1 pg/mL High PTHIN 86.0 Result Comment: Please Note: PTH INTACT METHOD AND REFERENCE RANGE CHANGE Effective 05/04/2017. Performed By: #### L509.1000 #### [facility] [address] [place], [address] CORTISOL SERUM Collected: 08/03/2017 Status: F Source: [place] 8:35 AM [facility] REPOSITORY Order Comment: BASELINE OR POST MEDICATION STIMULATION?: Baseline TYPE CODE TESTS RESULT OUT OF RANGE REFERENCE UNITS LAB L509.6000 3.09-22.40 ug/dL Normal CORTISOL 6.40 Result Comment: Adult (AM) 4.30 - 22.40 ug/dL Adult (PM) 3.09 - 16.66 ug/dL Performed By: #### L509.6000 #### [facility] [address] [place], [address] PROGRESS Observed: 06/18/2017 Status: COMPLETED Source: [place] 11:52 AM CLINIC OTHER CAMPUS REPOSITORY O ID: [id number] Author: Kendrick Mark Service: (none) Author Type: [...] with more than 50% of the total nhmw-sz-uase time of the visit in counseling / coordination of care. MARIBELL Observed: 06/17/2017 Status: COMPLETED Source: [place] 9:45 AM CLINIC OTHER [place] REPOSITORY Office Visit (AGMIL) DIA MCCULLOUGH ([id number]) 1940 [facility] Date Time Provider Department 06/17/17 9:45 [...] with more than 50% of the total yusp-nj-iuzm time of the visit in counseling / coordination of care. Referring Provider: RIKA WHEELER [[id number]] Allergies As of Date: 06/17/2017 Noted Allergy [...] GI Upset Date Reviewed: 06/17/2017 Reviewed by: Lety Toledo LPN - Fully Assessed Reason for Visit: Venous Insufficiency [609] Cmt: Dia is here for follow up. Primary Visit [...] this encounter CEPHALEXIN 500 MG CAPSULE >> Lety Toledo LPN 06/17/2017 10:57 AM >> LETY TOLEDO LPN TueJun 17, 2017 10:57 AM Not taking DICLOFENAC SODIUM 75 MG TABLET,DELAYED RELEASE >> Lety Toledo LPN 06/17/2017 10:57 AM >> LETY TOLEDO LPN TueJun 17, 2017 10:57 AM [...] 06/16/2017 Status: F Source: [place] 11:54 AM [facility] REPOSITORY TYPE CODE TESTS RESULT OUT OF RANGE REFERENCE UNITS LAB L300.4150 11.7-14.9 SECONDS High PROTIME 20.9 LAB L300.4200 Normal INR 1.9 Performed By: #### L300.3900 #### [facility] [address] [place], [address] CNOV Observed: 12/13/2016 Status: COMPLETED Source: [place] 1:45 PM CLINIC OTHER CAMPUS REPOSITORY Office Visit (AGGASTACC) DIA MCCULLOUGH ([id number]) 1940 [address] [facility] Date Time Provider Department 12/13/16 1:45 PM ELEUTERIO BRAY AGGASTACC During your visit today, we recorded the following information about you: Pulse Blood pressure Weight Height 110/minute 181/96 73.8 kg 1.524 m Elizabeth Mixon 12/09/2017 1:37 PM Signed The appointment was cancelled for this patient. Elizabeth Ross Allergies As of Date: 12/13/2016 Noted Allergy [...] CODE NAME / CODE REACTION SEVERITY SOURCE 06/04/2018 Drug diclofenac Upset Stomach Unknown [place] Allergy/416 sodium/[id number](R Community 598650([facility] XNORM) [facility] ED CT) Repository 06/04/2018 Drug amoxicillin Upset Stomach Unknown [place] Allergy/416 trihydrate/U0733296 Community 660576([facility] 07(RXNORM) [facility] ED CT) Repository 06/04/2018 Drug potassium Upset Stomach Unknown [place] Allergy/416 clavulanate/H788856 Community 597112([facility] 809(RXNORM) [facility] ED CT) Repository 06/04/2018 Drug Iodine and Iodide Unknown Unknown [place] Allergy/416 Containing Community 315251([facility] Produc/J372017986( Hospital ED CT) XNORM) Repository 06/04/2018 Drug NSAIDS Other Unknown [place] Allergy/416 (Non-Steroidal Community 009140([facility] Anti-Inflamma/F0010 [facility] ED CT) [address]236(RXNORM) Repository 06/04/2018 Drug misoprostol/J158743 Upset Stomach Unknown [place] Allergy/416 133(RXNORM) Community 787443([facility] ED CT) Repository 06/04/2018 Drug flurbiprofen/N23207 Upset Stomach Unknown [place] Allergy/416 2382(RXNORM) Community 353725([facility] ED CT) Repository 06/04/2018 Drug doxycycline/U612513 Upset Stomach Unknown [place] Allergy/416 748(RXNORM) Community 949045([facility] ED CT) Repository 06/04/2018 Drug erythromycin Upset Stomach Unknown [place] Allergy/416 base/P997664739(RXN Community 044925([facility] OR) [facility] ED CT) Repository 06/04/2018 Drug etodolac/J617490777 Upset Stomach Unknown [place] Allergy/416 (RXNORM) Community 475728([facility] ED CT) Repository 06/04/2018 Drug rofecoxib/A01530025 Upset Stomach Unknown [place] Allergy/416 7(RXNORM) Community 949453([facility] ED CT) Repository 03/11/2017 Drug NSAIDS UNKNOWN [facility] Class/62131 (NON-STEROIDAL Other [place] 1003(SNOMED ANTI-INFLAMMATORY Repository CT) DRUG) 06/24/2011 DRUG/434994 DICLOFENAC-MISOPROS GI UPSET [facility] 003(SNOMED MARIAJOSE Other [place] CT) Repository 12/22/2010 DRUG FLURBIPROFEN GI UPSET [facility] INGREDI/419 Other [place] 344897(SNOM Repository ED CT) 08/31/2008 DRUG/670006 AMOXICILLIN-POT GI UPSET [facility] 003(SNOMED CLAVULANATE Other [place] CT) Repository 02/17/2006 DRUG GRASS POLLEN [facility] INGREDI/419 Other [place] 740020(SNOM Repository ED CT) 03/17/2005 DRUG DOXYCYCLINE GI UPSET [facility] INGREDI/419 Other [place] 897990(SNOM Repository ED CT) 03/17/2005 DRUG/112846 ERYTHROMYCIN GI UPSET [facility] 003(SNOMED Other [place]) Repository 03/17/2005 DRUG ETODOLAC [facility] INGREDI/419 Other [place] 335039(SNOM Repository ED CT) 03/17/2005 Environ/420 POISON LISA [facility] 077593(SNOM Other [place] ED CT) Repository 03/17/2005 DRUG ROFECOXIB GI UPSET [facility] INGREDI/419 Other [place] 696716(SNOM Repository ED CT) NG/19582762 FLURBIPROFEN [facility] 6(SNOMED [facility]) Repository NG/87790164 DICLOFENAC-MISOPROS [facility] 6(SNOMED MARIAJOSE [facility]) Repository NG/86339225 AMOXICILLIN-POT [facility] 6(SNOMED CLAVULANATE [facility]) Repository NG/20970769 DOXYCYCLINE [facility] 6(SNOMED [facility]) Repository NG/21585265 ERYTHROMYCIN [facility] 6(SNOMED [facility]) Repository NG/06115411 GRASS POLLEN [facility] 6(SNOMED [facility]) Repository NG/68971279 ETODOLAC [facility] 6(SNOMED [facility]) Repository NG/57912804 NSAIDS [facility] 6(SNOMED (NON-STEROIDAL [facility]) ANTI-INFLAMMATORY Repository DRUG) NG/70211568 POISON LISA [facility] 6(SNOMED [facility]) Repository NG/12575216 ROFECOXIB [facility] 6(SNOMED [facility]) Repository ENCOUNTERS ENCOUNTERS ADMIT/DISCHARGE ACCOUNT NUMBER ADMITTING ENCOUNTER LOCATION SOURCE CLASS 06/05/2018 [id number] CORTES, Inpatient [facility] Other [place] Repository 06/05/2018 [id number] Magda KOLB Inpatient NMRON [facility] MEDICAL Repository WHITEWATERBuildi nARoom: 5211Bed: 06/04/2018/06/04/19 [id number] Emergency [address] ding:ED Repository 05/23/2018 [id number] Ambulatory [facility] ding:MFPLAB Repository 05/19/2018 [id number] Ambulatory [facility] MEDICAL Repository CENTERBuildi ng:AGWM 05/10/2018 [id number] Ambulatory [facility] Hospital ding:MFPLAB Repository 05/06/2018/05/07/20 [id number] [place], Ambulatory [place] Annmarie 18 [facility] ding:PCURoom Repository : NCT363Fuq: 1 05/06/2018 [id number] [place], Ambulatory BMSBuilding: Ann[place]ie Akira BMS.Critical access hospital Repository 05/06/2018 [id number] [place], Ambulatory BMSBuilding: [place] Akira BMS.[facility] Hospital Repository 05/04/2018/05/04/20 [id number] Ambulatory BMSBuilding: [place] [address] Repository 04/21/2018 [id number] Ambulatory [facility] ding:MEDOUTP Repository 04/21/2018 [id number] Ambulatory [facility] MEDICAL Repository CENTERBuildi ng:AGWM 04/17/2018 [id number] Ambulatory [facility] Hospital ding:MEDOUTP Repository 04/13/2018 [id number] Ambulatory [facility] Hospital ding:MEDOUTP Repository 04/10/2018 [id number] Ambulatory [facility] Hospital ding:MEDOUTP Repository 04/07/2018 [id number] Ambulatory [facility] Hospital ding:MEDOUTP Repository 03/31/2018 [id number] Ambulatory [facility] MEDICAL Repository CENTERBuildi ng:HEOB 03/28/2018 [id number] Ambulatory [facility] Hospital ding:MFPLAB Repository 03/15/2018 [id number] Ambulatory [facility] Hospital ding:MFPLAB Repository 03/02/2018 [id number] Ambulatory [facility] Hospital ding:MTRAD Repository 02/22/2018 [id number] Ambulatory BMSBuilding: [place] BMS.CF.[facility] Hospital Repository 02/22/2018 [id number] Ambulatory [facility] Hospital ding:CVS Repository 02/16/2018/02/17/20 [id number] Ambulatory BMSBuilding: [place] [address] Repository 02/15/2018/02/16/20 [id number] Ambulatory BMSBuilding: [place] 18 BMS.[facility] Repository 02/15/2018 [id number] Ambulatory BMSBuilding: [place] BMS.[facility] Repository 02/14/2018 [id number] Ambulatory BMSBuilding: [place] BMS.[facility] Repository 02/09/2018/02/10/20 [id number] VICTOR MANUEL Inpatient [address] MEDICAL Repository CENTERBuildi ng:CCLERoom: POOLBed: 02/09/2018/02/10/20 [id number] VICTOR MANUEL[address] Repository 01/26/2018 [id number] Ambulatory [facility] ding:CT Repository 01/26/2018 [id number] Ambulatory [facility] ding:MFPLAB Repository 01/20/2018 [id number] Ambulatory [facility] ding:MFPLAB Repository 01/12/2018 [id number] Ambulatory [facility] Hospital ding:MFPLAB Repository 12/30/2017 [id number] Ambulatory [facility] MEDICAL Repository CENTERBuildi ng:AGWM 12/24/2017 [id number] Ambulatory [facility] Hospital ding:WC Repository 11/24/2017 [id number] Ambulatory [facility] ding:MFPLAB Repository 11/23/2017 [id number] Ambulatory [facility] ding:HHLAB Repository 11/17/2017/12/14/[id number] Hospital ding:WC Repository 11/10/2017/11/11/19 [id number] VICTOR MANUEL[address] MEDICAL Repository CENTERBuildi ng:AKIRRoom: POOLBed: 11/10/2017/11/11/19 [id number] VICTOR MANUEL, Ambulatory [address] Repository 11/09/2017/11/13/19 [id number] Ambulatory Annmarie Ann[place]ie 18 [facility] ding:HHLAB Repository 11/03/2017/11/04/19 [id number] VICTOR MANUEL, Inpatient AKRON [facility] 18 [facility] MEDICAL Repository WHITEWATERBuild ng:AKIRRoom: POOLBed: 11/03/2017/11/04/19 [id number] VICTOR MANUEL, Ambulatory [address] Repository 10/27/2017 [id number] Ambulatory [facility] Repository 10/27/2017/10/28/19 [id number] Ambulatory AKRON [facility] [address] MEDICAL Repository WHITEWATERBuildi ng:AKXRCT 10/27/2017 [id number] Ambulatory [facility] Repository 10/27/2017/10/28/19 [id number] Ambulatory AKRON [facility] [address] MEDICAL Repository WHITEWATERBuild ng:AKXRCT 10/27/2017/10/28/19 [id number] [facility], Inpatient AKRON [facility] 18 [facility] MEDICAL Repository [facility]AKIRRoom: POOLBed: 10/27/2017/10/28/19 [id number] [facility], [address] Repository 10/18/2017/11/01/19 [id number] Alejo Ortega Inpatient [place] 18 [facility] ding:TCURoom Repository : FUY83Rzl: 10/08/2017/10/19/19 [id number] GALAN, Inpatient AKRON [facility] nRoom: 5108Bed: 10/08/2017/10/19/19 [id number] GALAN, Inpatient Cheng[address] [facility] Repository 10/08/2017/10/09/19 [id number] Emergency Annmarie[address] ding:ED Repository 10/08/2017 [id number] Ambulatory BMSBuilding: [place] [facility] 10/08/2017/10/09/19 [id number] Emergency [place] ding:ED Repository 10/05/2017/10/06/19 [id number] Ambulatory Annmarie Annmarie [address] [place] [address] ding:PT Repository 09/21/2017/10/01/19 [id number] Alejo Ortega Inpatient [place] Ann[place] 18 Chi Encounter [facility] ding:TCURoom Repository : MGC97Fhu: 1 09/18/2017/09/22/19 [id number] [place], Inpatient Annmarie [place] 18 Ghasem Encounter [facility] ding:PCURoom Repository : HAI597Eqa: 1 09/18/2017 [id number] [place], Ambulatory BMSBuilding: Ann[place]ie Ghasem BMS.Critical access hospital Repository 09/18/2017 [id number] [place], Ambulatory BMSBuilding: [place] Ghasem BMS.Critical access hospital Repository 09/18/2017 [id number] [place], Ambulatory BMSBuilding: [place] Ghasem BMS.Critical access hospital Repository 09/18/2017 [id number] [place], Ambulatory BMSBuilding: [place] Ghasem BMS.Critical access hospital Repository 09/17/2017/09/18/19 [id number] Ambulatory [address] ding:[facility] Repository Room: [id number] 09/15/2017 [id number] Ambulatory [facility] MEDICAL Repository [facility]HEOB 09/05/2017 [id number] Ambulatory [facility] MEDICAL Repository [facility] ng:AGVASACC 09/04/2017/09/06/19 [id number] [place] ding:ED Repository 09/04/2017 [id number] Ambulatory [facility] ding:ED Repository 08/24/2017/08/25/19 [id number] BALJINDER REYNA Inpatient [address] MEDICAL Repository [facility]:AKEDRoom: EDBed: 03 08/24/2017/08/25/19 [id number] Inpatient [place] 18 Encounter Clinic Other [place] Repository 08/24/2017/08/25/19 [id number] Emergency [address] ding:ED Repository 08/03/2017 [id number] Ambulatory [facility] ding:MEDOUTP Repository 08/02/2017 [id number] Ambulatory [facility] Repository 07/15/2017 [id number] Ambulatory [facility] ding:LAB Repository 06/17/2017/06/17/19 [id number] Ambulatory [address] Other [place] Repository 06/17/2017/06/17/19 [id number] Ambulatory [address] MEDICAL Repository CENTERBuildi ng:AGWM 06/16/2017/06/16/19 [id number] Ambulatory [address] ding:LAB Repository 12/13/2016 [id number] Ambulatory [facility] Repository PAYERS PAYERS ENCOUNTER GUARANTOR PAYER SUBSCRIBER SOURCE 06/05/2018 DIA A Primary DIA [facility] PEACOCKDOB: Insurance:AETNA PEACOMATTHEWB: Health System MEDICARE PPOPolicy [id number] Treatment Centers of [facility] Number: DRIVEUNIT [id number] [address] Date: [address]Dum: () 06/04/2018 SUNDAR Primary DIA STERN [place] [id number] Insurance:AETNA PEACOCKDOB: [facility] Number: [id number] [id number] Repository [address]Eud: 330) Date:3015-99-41VT [phone] () 2585[place], [place] [address]OG: 06/04/2018 Secondary NOT GIVENUNK [place] Insurance:SELF PAY [facility] Number: Effective Repository Date:2018-06-04 05/23/2018 DIA A Primary DIA [place] [id number] Insurance:AETNA PEACOCKDOB: [facility] Number: [id number]BD4WPVEffective Repository [address]18[address]Jlb: (330) Date:6625-14-00DW [phone] () [id number] [place] [address]QI: 05/23/2018 Secondary NOT GIVENUNK [place] Insurance:SELF PAY [facility] Number: Effective Repository Date:2018-05-23 05/19/2018 DIA A Primary DIA A [facility] PEACOCKDOB: Insurance:AETNA [facility]: [facility] MEDICARE PPOPolicy [id number] Repository NANCY Number: DRIVEUNIT [id number] [address] Date: [address]Hjl: () 05/10/2018 DIA A Primary DIA A [place] [id number] Insurance:AETNA [facility]: [facility] Number: [id number] [id number] Repository [address]Uww: 330) Date:7184-71-89IK [phone] () 627450EOGI SPRING[place] [phone]: 05/10/2018 Secondary NOT GIVENUNK [place] Insurance:SELF PAY [facility] Number: Effective Repository Date:2018-05-10 05/06/2018 DIA A Primary DIA A [place] [id number] Insurance:AETNA PEACOCKDOB: [facility] NANCY [facility] Number: [id number] [id number] Repository [address]Inb: 330) Date:2781-31-83NT [phone] () [id number] [place] [address]IV: 05/06/2018 Secondary NOT GIVENUNK [place] Insurance:SELF PAY [facility] Number: Effective Repository Date:2018-05-06 05/06/2018 DIA A Primary DIA A [place] [id number] Insurance:AETNA PEACOCKDOB: Community NANCY MCRPolicy Number: [id number] StreetBD4WPVEffective Repository [address]Jgm: (330) Date:7352-83-83WN [phone] () 344212[place], [place] [address]IF: 05/06/2018 Secondary NOT GIVENUNK [place] Insurance:SELF PAY [facility] Number: Effective Repository Date:2018-05-06 05/06/2018 DIA A Primary DAI A [place] [id number] Insurance:AETNA PEACOCKDOB: Community NANCY [facility] Number: [id number]BD4WPVEffective Repository [address]Aab: (330) Date:8863-76-96MQ [phone] () [id number], [place] [address]NT: 05/06/2018 Secondary NOT GIVENUNK [place] Insurance:SELF PAY [facility] Number: Effective Repository Date:2018-05-06 05/04/2018 DIA A Primary DIA A [place] [id number] Insurance:AETNA PEACOCKDOB: Community NANCY [facility] Number: [id number] StreetBD4WPVEffective Repository [address]Lhb: (330) Date:2995-31-96WN [phone] () 618006OD[place], [place] [address]AI: 05/04/2018 Secondary NOT GIVENUNK [place] Insurance:SELF PAY [facility] Number: Effective Repository Date:2018-05-04 04/21/2018 DIA A Primary DIA A [place] [id number] Insurance:AETNA PEACOCKDOB: Community NANCY [facility] Number: [id number] [id number] Repository [address]Msw: (330) Date:7411-81-65EG [phone] () [id number] [address]LG: 04/21/2018 Secondary NOT GIVENUNK [place] Insurance:SELF PAY [facility] Number: Effective Repository Date:2018-04-07 04/21/2018 DIA A Primary DIA A [facility]: Insurance:AETNA [facility] MEDICARE PPOPolicy [id number] Repository NANCY Number: DRIVEUNIT [id number] [address] Date: [address]Rkv: () 04/17/2018 DIA A Primary DIA A [place] [id number] Insurance:AETNA PEACOCKDOB: [facility] Number: [id number] [id number] Repository [address]Rlm: ([phone]) Date:7277-19-84LH [phone] () 329657[place], [place] [address]YA: 04/17/2018 Secondary NOT GIVENUNK [place] Insurance:SELF PAY [facility] Number: Effective Repository Date:2018-04-07 04/13/2018 DIA A Primary DIA A [place] [id number] Insurance:AETNA ELVIRACOCKDOB: [facility] Number: [id number] [id number] Repository [address]Mpz: ([phone]) Date:8238-46-30MO [phone] () [id number], [place] [address]EI: 04/13/2018 Secondary NOT GIVENUNK [place] Insurance:SELF PAY [facility] Number: Effective Repository Date:2018-04-07 04/10/2018 DIA A Primary DIA A [place] [id number] Insurance:AETNA PEACOCKDOB: [facility] Number: [id number] [id number] Repository [address]Lja: (330) Date:0059-62-82OB [phone] () [id number] [place] [address]DJ: 04/10/2018 Secondary NOT GIVENUNK [place] Insurance:SELF PAY [facility] Number: Effective Repository Date:2018-04-07 04/07/2018 DIA A Primary DIA A [place] [id number] Insurance:AETNA PEACOCKDOB: [facility] Number: [id number] [id number] Repository [address]Bdp: (330) Date:7799-53-12ZP [phone] () [id number] [address]GT: 04/07/2018 Secondary NOT GIVENUNK [place] Insurance:SELF PAY [facility] Number: Effective Repository Date:2018-04-03 03/31/2018 DIA A Primary DIA A [facility] PEACOCKDOB: Insurance:AETNA PEACOCKDOB: Health System MEDICARE PPOPolicy [id number] Treatment Centers of America Number: DRIVEUNIT [id number] [address] Date: [address]Wnk: () 03/28/2018 DIA A Primary DIA A [place] [id number] Insurance:AETNA PEACOCKDOB: [facility] Number: [id number] [id number] Repository [address]Fyp: (330) Date:4908-53-11YU [phone] () [id number] [place] [address]UN: 03/28/2018 Secondary NOT GIVENUNK [place] Insurance:SELF PAY [facility] Number: Effective Repository Date:2018-03-28 03/15/2018 DIA A Primary DIA A Ann[place] [id number] Insurance:AETNA PEACOCKDOB: [facility] Number: [id number]BD4WPVEffective Repository [address]Qeo: (330) Date:0710-59-98YA [phone] () 569505VLMAR[place], [place] [address]GS: 03/15/2018 Secondary NOT GIVENUNK [place]ie Insurance:SELF PAY [facility] Number: Effective Repository Date:2018-03-15 03/02/2018 DIA A Primary DIA A [place] [id number] Insurance:AETNA PEACOCKDOB: [facility] Number: [id number] [id number] Repository [address]Wqo: (332) Date:6330-69-42MF [phone] () 233689[place], [place] [address]QQ: 03/02/2018 Secondary NOT GIVENUNK [place]ie Insurance:SELF PAY [facility] Number: Effective Repository Date:2018-03-02 02/22/2018 DIA A Primary DIA A Ann[place]ie [id number] Insurance:AETNA PEACOCKDOB: [facility] Number: [id number] [id number] Repository [address]Zhv: (330) Date:8359-18-97OK [phone] () 328398OKMAR[place], [place] [address]KK: 02/22/2018 Secondary NOT GIVENUNK [place] Insurance:SELF PAY [facility] Number: Effective Repository Date:2018-02-22 02/22/2018 DIA A Primary DIA A Ann[place] [id number] Insurance:AETNA PEACOCKDOB: [facility] Hospital[facility] Number: [id number] [address]BD4WPVEffective Repository [address]Dyx: (330) Date:8074-75-26YX [phone] () 532[address]WJ [place] [address]CD: 02/22/2018 Secondary NOT GIVENUNK Ann[place] Insurance:SELF PAY [facility] Number: Effective Repository Date:2018-02-15 02/16/2018 DIA A Primary DIA A [place] [id number] Insurance:AETNA PEACOCKDOB: Community NANCY DRHOUSE MCRPolicy Number: [id number] [id number] Repository [address]Mke: (330) Date:8014-94-18SX [phone] () 453107EIMAR[place], [place] [address]CX: 02/16/2018 Secondary NOT GIVENUNK Annmar[place] Insurance:SELF PAY Community [facility] Number: Effective Repository Date:2018-02-16 02/15/2018 DIA A Primary DIA A Ann[place] [id number] Insurance:AETNA PEACOCKDOB: Community NANCY HORACIO MCRPolicy Number: [id number]BD4WPVEffective Repository [address]Uci: (330) Date:7660-53-99UX [phone] () 434224HDMAR[place], [place] [address]XD: 02/15/2018 Secondary NOT GIVENUNK [place] Insurance:SELF PAY Community [facility] Number: Effective Repository Date:2018-02-15 02/15/2018 DIA A Primary DIA A Annmarie [id number] Insurance:AETNA PEACOCKDOB: Community NANCY DRHOUSE MCRPolicy Number: [id number] [address] StreetBD4WPVEffective Repository [address]Zha: (330) Date:2701-13-33WK [phone] (HP) [id number], [place] [address]FD: 02/15/2018 Secondary NOT GIVENUNK Annmarie Insurance:SELF PAY [facility] Number: Effective Repository Date:2018-02-15 02/14/2018 DIA A Primary DIA A Annmarie [id number] Insurance:AETNA PEACOCKDOB: [facility] NANCY LEONARD [facility] Number: [id number] [id number] Repository [address]Xmi: (330) Date:6520-04-10OE [phone] () [id number] [place] [address]UP: 02/14/2018 Secondary NOT GIVENUNK Annmarie Insurance:SELF PAY [facility] Number: Effective Repository Date:2018-02-14 02/09/2018 DIA A Primary DIA A [facility] PEACOCKDOB: Insurance:AETNA PEACOCKDOB: [facility] [id number] MEDICARE PPOPolicy [id number] Number: DRIVEUN [id number] [address] Date: [address]Ucs: () 01/26/2018 DIA A Primary DIA A Annmarie [id number] Insurance:AETNA PEACOCKDOB: [facility] NANCY LEONARD [facility] Number: [id number] [id number] Repository [address]Cqi: (330) Date:2565-50-31EU [phone] () [id number] [place] [address]DU: 01/26/2018 Secondary NOT GIVENUNK Annmarie Insurance:SELF PAY [facility] Number: Effective Repository Date:2018-01-26 01/26/2018 Dia A Primary Dia A Annmarie [id number] Insurance:AETNA PeacockDOB: [facility] NANCY [facility] Number: [id number] [id number] Repository [address]Vab: (330) Date:1324-24-34WN [phone] () [id number] [place] [address]HU: 01/26/2018 Secondary NOT GIVENUNK [place] Insurance:SELF PAY [facility] Number: Effective Repository Date:2018-01-26 01/20/2018 Dia A Primary Dia A Annmarie [id number] Insurance:AETNA PeacockDOB: Community [facility] Number: [id number] [id number] Repository [address]Pdf: (956) Date:4757-13-76KS [phone] () [id number] [place] [address]HN: 01/20/2018 Secondary NOT GIVENUNK [place] Insurance:SELF PAY [facility] Number: Effective Repository Date:2018-01-20 01/12/2018 Dia A Primary Dia A [place] [id number] Insurance:AETNA PeacockDOB: [facility] Number: [id number] [id number] Repository 7[address]Ufc: (392) Date:0284-37-33VW [phone] () [id number] [place] [address]OM: 01/12/2018 Secondary NOT GIVENUNK Annmarie Insurance:SELF PAY [facility] Number: Effective Repository Date:2018-01-12 12/30/2017 DIA A Primary DIA A [facility] PEACOCKDOB: Insurance:AETNA PEACOCKDOB: [facility] [id number] MEDICARE PPOPolicy [id number] Repository [place] Number: DRIVEUNIT [id number] [address] Date: [phone]: () 12/24/2017 Dia A Primary Dia A Annmarie [id number] Insurance:AETNA PeacockDOB: [facility] Number: [id number] StreetBD4WPVEffective Repository [address]Blm: (330) Date:6131-77-27ZJ [phone] (HP) [id number] [place] [address]GR: 12/24/2017 Secondary NOT GIVENUNK Annmarie Insurance:SELF PAY [facility] Number: Effective Repository Date:2017-12-14 11/24/2017 Dia A Primary Dia A Annmarie [id number] Insurance:AETNA PeacockDOB: Community NANCY MCRPolicy Number: [id number] [id number] Repository [address]Gmq: (330) Date:5897-72-21DC [phone] (HP) [id number] [place] [address]GO: 11/24/2017 Secondary NOT GIVENUNK [place] Insurance:SELF PAY [facility] Number: Effective Repository Date:2017-11-24 11/23/2017 Dia A Primary Dia A [place] [id number] Insurance:AETNA PeacockDOB: Community NANCY MCRPolicy Number: [id number] [id number] Repository [address]Qaw: (330) Date:8931-12-21TD [phone] (HP) 309596NY [place] [address]HO: 11/23/2017 Secondary NOT GIVENUNK Annmarie Insurance:SELF PAY [facility] Number: Effective Repository Date:2017-11-13 11/17/2017 Dia A Primary Dia A Annmarie [id number] Insurance:AETNA PeacockDOB: Community NANCY MCRPolicy Number: [id number] [id number] Repository [address]Dni: (330) Date:5662-32-35PU [phone] (HP) [id number] [place] [address]EU: 11/17/2017 Secondary NOT GIVENUNK Annmarie Insurance:SELF PAY [facility] Number: Effective Repository Date:2017-11-17 11/10/2017 DIA A Primary DIA A [facility] PEACOCKDOB: Insurance:AETNA PEACOCKDOB: [facility] MEDICARE OPolicy [id number] Repository NANCY Number: [id number] [place] [id number] [address]Slx: (330) Date: [phone] () 11/09/2017 Dia A Primary Dia A Annmarie [id number] Insurance:AETNA PeacockDOB: [facility] Number: [id number]7WDELORIS pr [id number] Repository [address]Qoi: (330) Date:6698-08-00MC [phone] () [id number], [place] [address]MJ: 11/09/2017 Secondary NOT GIVENUNK Annmarie Insurance:SELF PAY [facility] Number: Effective Repository Date:2017-11-09 11/03/2017 DIA A Primary DIA A [facility] PEACOCKDOB: Insurance:AETNA PEACOCKDOB: [facility] MEDICARE PPOPolic [id number] Repository [facility] Number: [place] [id number] 96666Yuw: (330) Date: [phone] () 10/27/2017 DIA A Primary DIA A [facility] PEACOCKDOB: Insurance:AETNA PEACOCKDOB: [facility] MEDICARE OPolicy [id number] Repository NANCY Number: [address] [id number], [place] Date: [address]Qsa: () 10/27/2017 DIA A Primary DIA A [facility] PEACOCKDOB: Insurance:AETNA PEACOCKDOB: [facility] MEDICARE OPolicy [id number] Repository NANCY Number: [address] [id number] [address] Date: [address]Srx: () 10/27/2017 DIA A Primary DIA A [facility] PEACOCKDOB: Insurance:AETNA PEACOCKDOB: [facility] [id number] MEDICARE PPOPolicy [id number] Repository [place] Number: [place] [id number] [address]Wkb: (330) Date: [phone] () 10/18/2017 Dia A Primary Dia A Annmarie [id number] Insurance:AETNA PeacockDOB: [facility] Number: [id number] [id number] Repository [address]Ltd: (330) Date:6114-89-49TK [phone] () [id number] [place] [address]ZL: 10/18/2017 Secondary NOT GIVENUNK [place] Insurance:SELF PAY [facility] Number: Effective Repository Date:2017-10-18 10/08/2017 DIA A Primary DIA A [facility] PEACOCKDOB: Insurance:MEDICARE A PEACOCKDOB: [facility] [id number] AND BPolicy Number: [id number] Repository NANCY [id number] Date: [place]8TJNMTZDDITTMER[place] [address]Nlo: () 10/08/2017 Dia A Primary Dia A Annmarie [id number] Insurance:[facility]ETKittitas Valley HealthcarecockDOB: [facility] Number: [id number] [id number] Repository 26[address]Rvd: (330) Date:2882-07-16NV [phone] () [id number] [place] [address]EC: 10/08/2017 Secondary NOT GIVENUNK [place] Insurance:SELF PAY [facility] Number: Effective Repository Date:2017-10-08 10/08/2017 Dia A Primary Dia A Annmarie [id number] Insurance:AETNA PeacockDOB: Community NANCY MCRPolicy Number: [id number] [id number] Repository [address]Tvx: (330) Date:2034-85-62EW [phone] () 227072PJMAR[place], [place] [address]ZW: 10/08/2017 Secondary NOT GIVENUNK [place]namrie Insurance:SELF PAY [facility] Number: Effective Repository Date:2017-10-08 10/08/2017 Dia A Primary Dia A Annmarie [id number] Insurance:AETNA PeacockDOB: Community NANCY [facility] Number: [id number] [id number] Repository [address]Jbv: 330) Date:0820-87-13DI [phone] () 757907NGMAR[place], [place] [address]FQ: 10/08/2017 Secondary NOT GIVENUNK [place] Insurance:SELF PAY [facility] Number: Effective Repository Date:2017-10-08 10/05/2017 Dia A Primary Dia A Annmarie [id number] Insurance:MEDICARE [place]DOB: Community NANCY PART A [facility] [id number] Number: Repository [address]Aft: 330 [id number] [phone] () Date:2017-09-29 10/05/2017 Secondary NOT GIVENUNK Annmarie Insurance:SELF PAY [facility] Number: Effective Repository Date:2017-09-29 09/21/2017 Dia A Primary Dia A Annmarie [id number] Insurance:MEDICARE [place]DOB: Community NANCY PART A [facility] [id number] Number: Repository [address]Sgv: 330 [id number] [phone] () Date:2017-09-21 09/21/2017 Secondary NOT GIVENUNK [place] Insurance:SELF PAY [facility] Number: Effective Repository Date:2017-09-21 09/18/2017 Dia A Primary Dia A Annmarie [id number] Insurance:MEDICARE [place]DOB: Community [place] PART A olicy [id number] Number: Repository [address]Rjs: 330 [id number] [phone] () Date:2017-09-18 09/18/2017 Secondary NOT GIVENUNK [place] Insurance:SELF PAY [facility] Number: Effective Repository Date:2017-09-18 09/18/2017 Dia Primary Dia Annmarie [id number] Insurance:AETNA PeacockDOB: [facility] Number: [id number], [place] [id number] Repository [address]Kdr: 330) Date:5491-67-70GA [phone] () 372078BDMARION, [place] [address]IY: 09/18/2017 Secondary NOT GIVENUNK Annmarie Insurance:SELF PAY [facility] Number: Effective Repository Date:2017-09-18 09/18/2017 Dia A Primary Dia A Annmarie [id number] Insurance:AETNA PeacockDOB: [facility] Number: [id number], [place] [id number] Repository 66[address]Zdy: 330) Date:5595-97-15VD [phone] () 857388ORMAR[place], [place] [address]IP: 09/18/2017 Secondary NOT GIVENUNK [place] Insurance:SELF PAY [facility] Number: Effective Repository Date:2017-09-18 09/18/2017 Dia A Primary Dia A Annmarie [id number] Insurance:AETNA PeacockDOB: [facility] Number: [id number], [place] [id number] Repository [address]Dhs: (330) Date:7734-70-74RX [phone] () 705165NI [place] [address]EU: 09/18/2017 Secondary NOT GIVENUNK [place] Insurance:SELF PAY [facility] Number: Effective Repository Date:2017-09-18 09/18/2017 Dia A Primary Dia A Annmarie [id number] Insurance:AETNA PeacockDOB: [facility] Number: [id number], [place] [id number] Repository [address]Olc: (330) Date:9913-71-41QD [phone] () 041714DPMARION, [place] [address]PG: 09/18/2017 Secondary NOT GIVENUNK [place] Insurance:SELF PAY [facility] Number: Effective Repository Date:2017-09-18 09/17/2017 Dia Primary Dia [place] [id number] Insurance:AETNA PeacockDOB: [facility] Number: [id number], [place] [id number] Repository [address]Iwy: (330) Date:0413-47-81MC [phone] () 442414VXMARION, [place] [address]TY: 09/17/2017 Secondary NOT GIVENUNK Annmarie Insurance:SELF PAY [facility] Number: Effective Repository Date:2017-09-16 09/15/2017 DIA A Primary DIA A [facility] PEACOCKDOB: Insurance:AETNA PEACOCKDOB: [facility] MEDICARE PPOPolicy [id number] Repository [facility] Number: [place] [id number] [address]Wpx: (330) Date: [phone] () 09/05/2017 DIA A Primary DIA A [facility] PEACOCKDOB: Insurance:AETNA PEACOCKDOB: [facility] [id number] MEDICARE PPOPolicy [id number] Repository [place] Number: D[place] [id number] [address] Date: [address]Hgm: () 09/04/2017 Dia Primary Dia [place] [id number] Insurance:AETNA PeacockDOB: [facility] Number: [id number], [place] [id number] Repository [address]Hdl: (330) Date:4527-72-34RX [phone] () [id number] [place] [address]BX: 09/04/2017 Secondary NOT GIVENUNK Annmarie Insurance:SELF PAY [facility] Number: Effective Repository Date:2017-09-04 09/04/2017 Dia A Primary NOT GIVENUNK Annmarie [id number] Insurance:SELF PAY [address] Number: Effective Repository [id number]: (330) Date:2017-09-04 [phone] () 08/24/2017 DIA A Primary DIA A [facility] PEACOCKDOB: Insurance:AETNA PEACOCKDOB: [facility] [id number] MEDICARE PPOPolicy [id number] Number: [place] [id number] [address]Kgy: (330) Date: [phone] () 08/24/2017 Dia Primary Dia Annmarie [id number] Insurance:AETNA PeacockDOB: [facility] Number: [id number], [place] [id number] Repository 388[address]Chu: (330) Date:2870-57-03RI [phone] () [id number] [place] [address]XK: 08/24/2017 Secondary NOT GIVENUNK Annmarie Insurance:SELF PAY [facility] Number: Effective Repository Date:2017-08-24 08/03/2017 Dia Primary Dia Annmarie [id number] Insurance:AETNA PeacockDOB: [facility] Number: [id number], [place] [id number] Repository [address]Dnt: (330) Date:1829-28-17QM [phone] () 170367XEMAR[place], [place] [address]FF: 08/03/2017 Secondary NOT GIVENUNK Annmarie Insurance:SELF PAY [facility] Number: Effective Repository Date:2017-08-02 08/02/2017 Dia A Primary Dia [facility] PeacockDOB: Insurance:AetnaPolicy [place]OB: System Number: Effective [id number] Repository [facility] Date: [place] [address]Uev: () 07/15/2017 Dia Primary Dia [place] [id number] Insurance:AETNA PeacockDOB: [facility] Number: [id number], [place] [id number] Repository 20842Xdm: (330) Date:6680-66-94NU [phone] () 167829AEMAR[place], [place] [address]ZV: 07/15/2017 Secondary NOT GIVENUNK [place] Insurance:SELF PAY [facility] Number: Effective Repository Date:2017-07-15 06/17/2017 DIA A Primary DIA A [facility] PEACOCKDOB: Insurance:AETNA [place]AC[place]DOB: [facility] MEDICARE PPOPolicy [id number] Repository [facility] Number: [place] [id number] [address]Llj: (330) Date: [phone] () 06/16/2017 Dia Primary Dia Annmarie [id number] Insurance:AETNA PeacockDOB: [facility] Number: [id number], [place] [id number] Repository [address]Pxy: 330) Date:4439-35-26CB [phone] (YB) [id number] [place] [address]GQ: 06/16/2017 Secondary NOT GIVENUNK Annmarie Insurance:SELF PAY [facility] Number: Effective Repository Date:2017-06-16
== END ==
PROVIDERS: Family Provider Family Medicine; PCP Family Medicine; Referring Provider Internal Medicine Nephrology; Visit Provider Internal Medicine Nephrology
DX: N18.3 Chronic kidney disease, stage 3 (moderate) (principal); D50.9 Iron deficiency anemia, unspecified
CPT/HCPCS: 96365; J1756; J7050; A4216

== ENCOUNTER → 2018-04-21 10:55 | Outpatient (CLI) | payer MEDICARE, SELFPAY ==
[2018-04-07 13:35] VITALS: BMI 30.8
[2018-04-17 13:47] VITALS: BMI 30.8
[2018-04-21 11:17] VITALS: BP 127/69; PULSE 98; RESP 16; TEMP 37.2; O2SAT 97; BMI 30.8
== END ==
PROVIDERS: Family Provider Family Medicine; PCP Family Medicine; Referring Provider Internal Medicine Nephrology; Visit Provider Internal Medicine Nephrology
DX: N18.3 Chronic kidney disease, stage 3 (moderate) (principal); D50.9 Iron deficiency anemia, unspecified
CPT/HCPCS: 96365; J1756; J7050; A4216

== ENCOUNTER 2018-05-06 12:39 | Observation (INO) | payer MEDICARE, SELFPAY ==
[2018-05-04 12:52] VITALS: BMI 30.8
[2018-05-06] VITALS (19 sets, daily range): BP systolic 123–170; BP diastolic 73–93; PULSE 90–143; RESP 16–96; TEMP 36.8–37.7; O2SAT 92–100; BMI 30.8; BMI 29.3
[2018-05-06] MEDS: Acetaminophen 500 MG Tablet 1000 MG PO ×2 (14:22→20:15)
[2018-05-06] MEDS: 0.9% Normal Saline 1,000 ML 150 ML IV (14:23)
[2018-05-06 14:35] LABS: Absolute Lymphocyte Count 0.43 X10^3/ul (0.83-4.51); Absolute Neutrophil Count 6.5 X10^3/uL (2.0-7.7); Basophil# 0.02 X10^3/uL; Basophil% 0.3 % (0-1); Differential Indicated SCAN CRITERIA MET; Hematocrit 35.6 % (37-47); Hemoglobin 10.6 g/dl (12.0-15.0); Lymphocyte # 0.43 X10^3/ul (4.0); Lymphocyte % 5.9 % (19-41); Mean Corp Hgb Conc 29.8 g/gl (32-36); Mean Corpuscular Hgb 30.1 pg (27.0-32.0); Mean Corpuscular Volume 101.1 fL (81-99); Mean Platelet Vol. 8.6 fl (6.2-12.0); Monocyte# 0.31 X10^3/uL; Monocyte% 4.3 % (0-10); Neutrophil # 6.47 X10^3/uL (2.7-7.7); Neutrophil % 89.4 % (47-70); POSITIVE COUNT NO; POSITIVE DIFFERENTIAL YES; POSITIVE MORPHOLOGY YES; Platelet Count 267 K/mm3 (150-450); RBC Distribution Width SD 85.2 fl (35.1-43.9); Red Blood Count 3.52 M/mm3 (4.2-5.4); White Blood Count 7.2 K/mm3 (4.4-11.0)
[2018-05-06 14:40] LABS: International Normalized Ratio 1.2; Prothrombin Time (Protime)PT. 15.1 SECONDS (11.7-14.9)
--- NOTE | 2018-05-06 14:45 | RAD_ITS ---
STUDY: X-RAY CHEST REASON FOR EXAM: Female, 77 years old. Cough, fever, flulike symptoms TECHNIQUE: PA and lateral views of the chest. COMPARISON: 03/02/2018 FINDINGS: EKG leads project over the chest. Coarsened interstitial lung markings without focal infiltrate or pleural effusion. There is no demonstrated pleural abnormality. Normal size heart. Normal mediastinum and kina. Normal visualized pulmonary arteries. There is atherosclerotic calcification of the aortic arch with tortuosity. There is demineralization of the osseous structures. Fusion hardware of the lumbar spine partially visualized. There are degenerative changes of the thoracolumbar spine. There is no demonstrated abnormality of the visualized soft tissue structures of the upper abdomen. RAD/Chest PA and Lateral IMPRESSION: No airspace consolidation or pleural effusion. Stable exam since 03/02/2018 Electronically Signed: Misael Jiménez MD at 15:23 EST , Service support ,
[2018-05-06 14:52] LABS: ALB/GLOB Ratio 0.7 RATIO (0.9-2.4); AST(SGOT) 10 U/L (15-37); Alanine Aminotransfer ALT/SGPT 18 U/L (13-56); Albumin, Serum 2.5 g/dL (3.2-5.0); Alkaline Phosphatase 73 U/L (45-117); Anion Gap 7 (5-15); BUN 17 mg/dL (7-18); BUN/Creat Ratio 11.5 RATIO (10-20); Calcium,Total 8.4 mg/dL (8.5-10.1); Chloride 106 mmol/L (98-107); Creatinine, Serum 1.48 mg/dL (0.55-1.02); EST Glomerular Filtration Rate 36 mL/min (>60); Est Glom Filt Rate - Afr Amer 44 mL/min (>60); Globulin 3.7 g/dL (2.2-4.2); Glucose 102 mg/dL (74-106); Potassium 3.8 mmol/L (3.5-5.1); Protein, Total 6.2 g/dL (6.4-8.2); Sodium Level 143 mmol/L (136-145)
[2018-05-06 14:59] LABS: Lactic Acid 1.5 mmol/L (0.4-2.0)
--- NOTE | 2018-05-06 16:18 | ED.VISSUMM ---
- ER Visit Summary Date of Service: 05/06/18 Chief Complaint: Cough History of Present Illness: The patient is a 77 F who states that for the past 7 days she has been ill. She notes a cough with some sputum production chills a slight sore throat nausea and some loose stools. She notes generalized body aches. She states on she went to urgent care and was given a prescription for Levaquin. She states she has not been eating and drinking well. She has history of Interceed no cyst chronic kidney disease prior DVT and PE retention and hypercholesterolemia as well as Crockett's disease. Physical Examination: Temperature 99.8 orally heart rate 137 respirations are 105 pulse ox is 99% on room air blood pressure 163/90 Gen: Well-nourished well-developed Head: Normocephalic atraumatic Eyes: Perrl EOMI ENT: TMs clear no rhinorrhea moist mucous membranes Neck: Supple no lymphadenopathy no JVD nontender CVS: Regular rate tachycardic rhythm 2 out of 6 systolic murmur Respiratory: No distress patient has rhonchorous lung sounds that improved with cough chest nontender Abdomen: Soft nontender nondistended normal bowel sounds no masses Back: Nontender Extremity: Nontender no edema Skin: Normal color no rash Neuro: alert orientated ?3 CN II-XII intact normal strength sensation reflexes Psych: Normal affect normal mood Test Results: EKG shows a sinus tachycardia at a rate of 134. White count 7.2 with hemoglobin 10.6. Influenza is negative. Creatinine 1.48. Lactic acid troponin negative. Chest x-ray shows no infiltrates. Emergency Department Course and Treatment: Patient has received IV fluids. Patient also received aerosols. While here in the emergency room the patient had a mucousy stool with red streaks. This was sent for stool studies. Patient also received a dose of Solu-Cortef. Plan will be admission into the hospital. Impression: 1. Acute bronchitis 2. Sinus tachycardia 3. Dehydration This note was generated with [employer] dictation software. It may contain incorrect words, spelling, and punctuation that were not noted in review of the chart prior to signing ED Disposition - Plan for ED Patient: Chief Complaint: Cold Sx Referrals: Jared Romero MD [Primary Care Provider] -
--- NOTE | 2018-05-06 16:21 | ED.DCSUM_ITS ---
- ER Visit Summary Date of Service: 05/06/18 Chief Complaint: Cough History of Present Illness: The patient is a 77 F who states that for the past 7 days she has been ill. She notes a cough with some sputum production chills a slight sore throat nausea and some loose stools. She notes generalized body ach es. She states on she went to urgent care and was given a prescription for Levaquin. She states she has not been eating and drinking well. She has history of Interceed no cyst chronic kidney disease prior DVT and PE retention and hypercholesterolemia as well as [place]'s disease. Physical Examination: Temperature 99.8 orally heart rate 137 respirations are 105 pulse ox is 99% on room air blood pressure 163/90 Gen: Well-nourished well-developed Head: Normocephalic atraumatic Eyes: Perrl EOMI ENT: TMs clear no rhinorrhea moist mucous membranes Neck: Supple no lymphadenopathy no JVD nontender CVS: Regular rate tachycardic rhythm 2 out of 6 systolic murmur Respiratory: No distress patient has rhonchorous lung sounds that improved with cough chest nontender Abdomen: Soft nontender nondistended normal bowel sounds no masses Back: Nontender Extremity: Nontender no edema Skin: Normal color no rash Neuro: alert orientated ?3 CN II-XII intact normal strength sensation reflexes Psych: Normal affect normal mood Test Results: EKG shows a sinus tachycardia at a rate of 134. White count 7.2 with hemoglobin 10.6. Influenza is negative. Creatinine 1.48. Lactic acid troponin negative. Chest x-ray shows no infiltrates. Emergency Department Course and Treatment: Patient has received IV fluids. Patient also received aerosols. While here in the emergency room the patient had a mucousy stool with red streaks. This was sent for stool studies. Patient also received a dose of Solu-Cortef. Plan will be admission into the hospital. Impression: 1. Acute bronchitis 2. Sinus tachycardia 3. Dehydration This note was generated with [employer] dictation software. It may contain incorrect words, spelling, and punctuation that were not noted in review of the chart prior to signing ED Disposition - Plan for ED Patient: Chief Complaint: Cold Sx Referrals: Jared Romero MD [Primary Care Provider] -
[2018-05-06 16:33] LABS: Mucous, Urine 0 SEEN /hpf (<or=2+); Red Blood Cells-Urine 0 SEEN /hpf (0-5); White Blood Cells 0 SEEN /hpf (0-5)
[2018-05-06] MEDS: Ipratropium/Albuterol Sulfate 3 ML AMPUL.NEB INHALATION (16:35)
[2018-05-06 16:40] LABS: Color, Urine Yellow (Yellow); Glucose, Dipstick Normal (Normal); Ketone-Dipstick Negative (Negative); Leukocyte Esterase-Dipstick 25 /ul (Negative); Nitrite-Dipstick Negative (Negative); Occult Blood-Urine Negative /ul (Negative); Protein-Dipstick Negative (Negative); Specific Gravity, Urine 1.015 (1.002-1.030); Urine Bilirubin Dipstick Negative (Negative); Urine Clarity Cloudy (Clear); Urine Urobilinogen Normal (Normal)
[2018-05-06] MEDS: 0.9% Normal Saline 1,000 ML 999 ML IV (16:41)
[2018-05-06] MEDS: Hydrocortisone Sod Succinate 100 MG/2 ML Vial IV (16:41)
[2018-05-06 16:46] LABS: Amorphous Sediment 2+; Bacteria 1+ /hpf (None Seen); Squamous Epithelial Cells - UA 0-5 SEEN /hpf (5-10)
--- NOTE | 2018-05-06 17:07 | PCM.HP.STD ---
Problem List (1) Bronchitis Status: Acute (2) Non-rheumatic aortic stenosis Status: Chronic (3) Hypertensive nephropathy Status: Chronic (4) Hyperlipidemia Status: Chronic Qualifiers: Hyperlipidemia type: pure hypercholesterolemia Qualified Code(s): E78.00 - Pure hypercholesterolemia, unspecified; E78.0 - Pure hypercholesterolemia (5) Atherosclerosis of coronary artery of [place] heart without angina pectoris Status: Chronic (6) Bilateral pulmonary embolism Status: Chronic (7) DVT (deep venous thrombosis) Status: Chronic (8) Stage III chronic kidney disease Status: Chronic (9) Addisons disease Status: Chronic History of Present Illness Date of Admission: 05/06/18 Chief Complaint: Cough, fever, diarrhea, weakness. The patient is a 77 year old F who presents to the emergency room due to cough, fever, diarrhea and fatigue. Patient states this is been ongoing for approximately 7 days. Patient presented to urgent care on 05/04/2018 and was prescribed Levaquin for bronchitis. She notes diarrhea developed following taking antibiotic. Denies abdominal pain. Denies blood in stool. Her respiratory symptoms have not improved on antibiotic. Patient noted to be tachycardiac in ER. She has seen Dr. Uriostegui in the past for irregular heartbeat. She reports she is on metoprolol which she did not take this morning. She denies palpitations, chest pain. She has a past medical history of chronic kidney disease stage III, history of DVT in 2012 and PE in September 2017, [place]'s disease, hypertension, hyperlipidemia, history of bowel perforation, iron deficiency anemia, chronic venous insufficiency. Patient has right lower extremity wound which she states she has been placing Adaptic. She states she previously had wound on the left lower extremity which is now healed. She reports chronic swelling of bilateral lower extremities. Past Medical History Past Medical History (Chronic Problems): Chronic Problems (Last Reviewed 05/04/18 @ 12:51 by Desi Garcia) Non-rheumatic aortic stenosis (Chronic) Hypertensive nephropathy (Chronic) Hyperlipidemia (Chronic) Atherosclerosis of coronary artery of [place] heart without angina pectoris (Chronic) Bilateral pulmonary embolism (Chronic) DVT (deep venous thrombosis) (Chronic) Stage III chronic kidney disease (Chronic) Addisons disease (Chronic) Medical History: Medical History (Last Reviewed 05/04/18 @ 12:51 by Desi Garcia) Non-rheumatic aortic stenosis (Chronic) I35.0 Hypokalemia (Chronic) E87.6 High blood pressure with chronic kidney disease (Chronic) I12.9 Hypertensive nephropathy (Chronic) I12.9 Hyperlipidemia (Chronic) E78.5 Atherosclerosis of coronary artery of [place] heart without angina pectoris (Chronic) I25.10 Bilateral pulmonary embolism (Chronic) I26.99 DVT (deep venous thrombosis) (Chronic) I82.409 Stage III chronic kidney disease (Chronic) N18.3 Addisons disease (Chronic) E27.1 Hematoma of left lower extremity S80.12XA Allergic rhinitis J30.9 Anxiety F41.9 Chronic anemia D64.9 Chronic back pain M54.9, G89.29 GERD (gastroesophageal reflux disease) K21.9 Gout M10.9 Hypothyroidism E03.9 Obesity E66.9 Osteoarthritis M19.90 Polymyalgia rheumatica M35.3 GI bleed K92.2 Intra-abdominal abscess K65.1 Perforated bowel K63.1 Allergies Iodine and Iodide Containing Produc Allergy (Verified 05/06/18 12:46) Unknown amoxicillin trihydrate [From Augmentin] Adverse Reaction (Verified 05/06/18 12:46) Upset Stomach diclofenac sodium [From Arthrotec] Adverse Reaction (Verified 05/06/18 12:46) Upset Stomach doxycycline Adverse Reaction (Verified 05/06/18 12:46) Upset Stomach erythromycin base Adverse Reaction (Verified 05/06/18 12:46) Upset Stomach etodolac [From Lodine] Adverse Reaction (Verified 05/06/18 12:46) Upset Stomach flurbiprofen [From Ansaid] Adverse Reaction (Verified 05/06/18 12:46) Upset Stomach misoprostol [From Arthrotec] Adverse Reaction (Verified 05/06/18 12:46) Upset Stomach NSAIDS (Non-Steroidal Anti-Inflamma Adverse Reaction (Verified 05/06/18 12:46) Other potassium clavulanate [From Augmentin] Adverse Reaction (Verified 05/06/18 12:46) Upset Stomach rofecoxib [From Vioxx] Adverse Reaction (Verified 05/06/18 12:46) Upset Stomach Home Medications: Ambulatory Orders Medication Instructions Recorded Prednisone 2.5 mg PO QHS 09/18/17 Acetaminophen [Tylenol] 1,000 mg PO Q8H PRN PRN tab 10/28/17 apixaban 5 mg tablet 2.5 mg PO BID tab 02/14/18 metoprolol tartrate 25 mg tablet 12.5 mg PO DAILY tab 02/14/18 potassium chloride ER 10 mEq 10 meq PO DAILY 02/14/18 tablet,extended release B12/Levomefolate Calcium/B-6 1 ea PO DAILY 04/07/18 [Folbic Rf Tablet] Omeprazole [Prilosec] 10 mg PO DAILY 04/07/18 Prednisone 10 mg PO BREAKFAST 04/07/18 traMADol [Ultram (G)] 25 mg PO BID 04/07/18 levofloxacin 500 mg tablet 500 mg PO DAILY #7 tab 05/04/18 Surgical History: Surgical History (Last Reviewed 05/06/18 @ 17:07 by KATHY Beltran) History of back surgery Z98.890 History of cataract surgery Z98.49 History of repair of hiatal hernia Z98.890, Z87.19 History of right hip replacement Z96.641 Surgical History: total knee arthroplasty, - - Back surgery. 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 Lives: Alone Smoking Status: Never smoker Alcohol: None Drugs: None - *Family History Maternal Family History: Family History (Last Reviewed 05/06/18 @ 17:08 by KATHY Beltran) Father Heart disease Mother CVA (cerebral vascular accident) Other CAD (coronary artery disease) Myocardial infarction Paternal Family History: Family History (Last Reviewed 05/06/18 @ 17:08 by KATHY Beltran) Father Heart disease Mother CVA (cerebral vascular accident) Other CAD (coronary artery disease) Myocardial infarction Review of Systems Constitutional: Reports: Chills, Fever, Malaise HEENT: Denies: Head Aches, Sinus Congestion, Sinus Drainage Cardiovascular: Reports: Edema - Chronic BLLE. Denies: Chest Pain, Palpitations, Syncope Respiratory: Reports: Cough, Shortness of Breath, Sputum production Gastrointestinal: Reports: Diarrhea. Denies: Abdominal Pain, Nausea, Vomiting Genitourinary: Denies: Dysuria Musculoskeletal: Denies: Joint Pain, Joint Tenderness Skin: Reports: Wounds - R lateral calf, - - Chronic skin changes BLLE Neurological: Denies: Numbness, Tingling, Focal weakness Psychiatric: Denies: Anxiety, Depression, Homicidal Ideations, Suicidal Ideations Hematologic/ Lymphatic: Denies: Easy Bruising, Easy Bleeding VTE Information - Inpt Only VTE Present on Admission: No VTE Mechan Device Prophylaxis: None VTE Pharm Prophylaxis ordered?: Yes - Physical Exam General: Alert, Oriented x3, Cooperative HEENT: Atraumatic, PERRLA, EOMI, Normocephalic Oral: Dry Mucosa Neck: Supple, No JVD, Negative Carotid Bruits Lungs: Diminished, Rhonchi Cardiovascular: Regular Rhythm, Normal S1, Normal S2, Murmur, Tachycardic Abdomen: Bowel Sounds Present, Soft, Non Tender, Non-Distended Extremities: No clubbing, No cyanosis, Capillary Refill Less than 3 Seconds, Edema - BLLE Skin: - - Right lateral calf open area, not infected appearing. No drainage. Chronic bilateral lower extremity stasis dermatitis. Musculoskeletal: No Tenderness to Palpation of Joints or Extremities Neurological: Cranial nerves II-XII grossly intact, Neuro grossly intact Psych/Mental Status: Normal Affect, Appropriate Vital Signs Temp Pulse Resp BP Pulse Ox 98.5 F 141 H 27 H 146/88 H 100 05/06/18 17:04 05/06/18 17:04 05/06/18 17:04 05/06/18 17:04 05/06/18 17:04 Oxygen Flow Rate (L/min) 2 Oxygen Delivery Method Nasal Cannula Weight: 158 lb Body Mass Index (BMI) 30.8 Microbiology Past 72 Hours 05/06/18 14:35 Influenza Types A,B Direct FA (CANDE) - Final Mucosa - Nose Laboratory Tests Past 24 Hrs 05/06/18 05/06/18 05/06/18 14:19 14:19 14:19 WBC 7.2 RBC 3.52 L Hgb 10.6 L Hct 35.6 L MCV 101.1 H MCH 30.1 MCHC 29.8 L RDW 23.0 H RDW Differential 85.2 H Plt Count 267 MPV 8.6 Immature Gran % (Auto) 0.100 Neut % (Auto) 89.4 H Lymph % (Auto) 5.9 L [place] % (Auto) 4.3 Eos % (Auto) 0.0 Baso % (Auto) 0.3 Absolute Neuts (auto) 6.5 Absolute Lymphs (auto) 0.43 L Total Counted Not Reportable Differential Comment PT 15.1 H INR 1.2 APTT 30.0 Sodium 143 Potassium 3.8 Chloride 106 Carbon Dioxide 30.0 Anion Gap 7 BUN 17 Creatinine 1.48 H Estim Creat Clear Calc 22.50 Est GFR (MDRD) Af Amer 44 L Est GFR (MDRD) Non-Af 36 L BUN/Creatinine Ratio 11.5 Glucose 102 Lactic Acid Calcium 8.4 L Total Bilirubin 0.30 AST 10 L ALT 18 Alkaline Phosphatase 73 Troponin I < 0.015 Total Protein 6.2 L Albumin 2.5 L Globulin 3.7 Albumin/Globulin Ratio 0.7 L Urine Color Urine Clarity Urine pH Ur Specific [place] Urine Protein Urine Glucose (UA) Urine Ketones Urine Occult Blood Urine Nitrite Urine Bilirubin Urine Urobilinogen Ur Leukocyte Esterase Urine RBC Urine WBC Ur Squamous Epith Cells Amorphous Sediment Urine Bacteria Urine Mucus 05/06/18 05/06/18 14:19 16:23 WBC RBC Hgb Hct MCV MCH MCHC RDW RDW Differential Plt Count MPV Immature Gran % (Auto) Neut % (Auto) Lymph % (Auto) [place] % (Auto) Eos % (Auto) Baso % (Auto) Absolute Neuts (auto) Absolute Lymphs (auto) Total Counted Differential Comment PT INR APTT Sodium Potassium Chloride Carbon Dioxide Anion Gap BUN Creatinine Estim Creat Clear Calc Est GFR (MDRD) Af Amer Est GFR (MDRD) Non-Af BUN/Creatinine Ratio Glucose Lactic Acid 1.5 Calcium Total Bilirubin AST ALT Alkaline Phosphatase Troponin I Total Protein Albumin Globulin Albumin/Globulin Ratio Urine Color Yellow Urine Clarity Cloudy Urine pH 8.0 Ur Specific [place] 1.015 Urine Protein Negative Urine Glucose (UA) Normal Urine Ketones Negative Urine Occult Blood Negative Urine Nitrite Negative Urine Bilirubin Negative Urine Urobilinogen Normal Ur Leukocyte Esterase 25 H Urine RBC 0 SEEN Urine WBC 0 SEEN Ur Squamous Epith Cells 0-5 SEEN Amorphous Sediment 2+ Urine Bacteria 1+ Urine Mucus 0 SEEN Assessment/Plan All Active Problems (Last Reviewed 05/04/18 @ 12:51 by Desi Garcia) Bronchitis (Acute) 1. Acute bronchitis, failed outpatient therapy with levaquin-chest x-ray on admission without acute process. Patient received Solu-Cortef and breathing treatments in ER. Negative for influenza. Suspect viral URI. Albuterol and DuoNeb aerosols. Prednisone 20 mg twice daily. 2. Diarrhea-stool for C. difficile, enteric bacteriology pending. Lactoferrin positive. 3. Sinus tachycardia-unclear etiology. Increase home metoprolol regimen to 25 mg twice daily. Continue to monitor. Patient had echo February 2018 which showed an EF of 55%, stage I diastolic dysfunction, mild aortic stenosis. EKG showed sinus tachycardia. 4. Chronic iron deficiency anemia-stool positive for occult blood. Hemoglobin stable. Baseline hemoglobin 8-10. Hemoglobin on admission 10.6. Trend CBC. Prior iron studies with iron deficiency. Recommend iron supplementation. 5. Chronic venous insufficiency, with right lower venous stasis dermatitis wound right lateral calf, present on admission-cleanse with normal saline daily. Apply Adaptic to right lower extremity. Meet wraps bilateral lower extremities. Wound does not appear infected, no drainage noted. 6. Chronic kidney disease stage III-at baseline. 7. History of DVT/PE- on eliquis. 8. [place]'s disease-on chronic prednisone therapy. 9. Hypertension-stable, home metoprolol regimen increased to 25 mg twice daily. 10. Hyperlipidemia-not on statin. 11. History of bowel perforation/intra-abdominal abscess/history of GI bleed-continue PPI DVT prophylaxis- Eliquis. This patient was seen by KATHY Beltran under the supervision of Dr. Adams.
[2018-05-06] MEDS: Metoprolol Tartrate 25 MG Tablet PO (18:28)
[2018-05-06] MEDS: Albuterol 2.5 MG/3 ML VIAL.NEB. INHALATION (19:04)
[2018-05-06] MEDS: Metoprolol Tartrate 5 MG/5 ML Vial IV (20:15)
[2018-05-06] MEDS: 0.9% Normal Saline 1,000 ML 100 ML IV (20:15)
[2018-05-06] MEDS: Azithromycin 250 MG Tablet 500 MG PO (20:15)
[2018-05-06] MEDS: 0.9% NaCl Peripheral Flush Adult/Peds IV (20:15)
[2018-05-06] MEDS: guaiFENesin 10 ML UDC (200MG/10ML) 15 ML PO (20:15)
[2018-05-06] MEDS: traMADol 50 MG Tablet 25 MG PO (20:40)
[2018-05-06] MEDS: APIXABAN 2.5 MG TABLET PO (20:40)
[2018-05-07] VITALS (10 sets, daily range): BP systolic 148–162; BP diastolic 71–96; PULSE 95–128; RESP 16–24; TEMP 36.6–36.9; O2SAT 96–97
[2018-05-07] MEDS: Acetaminophen 500 MG Tablet 1000 MG PO ×2 (04:24→12:34)
[2018-05-07] MEDS: guaiFENesin 10 ML UDC (200MG/10ML) 15 ML PO ×2 (06:25→12:34)
[2018-05-07] MEDS: 0.9% Normal Saline 1,000 ML 100 ML IV (06:25)
[2018-05-07] MEDS: Albuterol 2.5 MG/3 ML VIAL.NEB. INHALATION ×2 (07:01→14:01)
[2018-05-07] MEDS: APIXABAN 2.5 MG TABLET PO (09:45)
[2018-05-07] MEDS: predniSONE 20 MG Tablet PO (09:45)
[2018-05-07] MEDS: traMADol 50 MG Tablet 25 MG PO (09:45)
[2018-05-07] MEDS: Metoprolol Tartrate 25 MG Tablet PO (09:45)
[2018-05-07] MEDS: Azithromycin 250 MG Tablet 500 MG PO (09:46)
--- NOTE | 2018-05-07 13:59 | DCINST_ITS ---
You will use the following diet at home:: Cardiac Discharge Activity: Return to Normal Activity Call your doctor if you observe: Fever of 101 or Higher, Shortness of breath, Dizziness, Fainting spells, Chest pain Additional Instructions: Your home metoprolol regimen was increased to 25mg twice daily for better control of your heart rate. You were prescribed increased dose of prednisone for bronchitits. You will take prednisone 20mg twice daily for 5 days and then resume previous regimen of 10mg in the morning and 5mg at night. Allergies/Adverse Reactions: Allergies Iodine and Iodide Containing Produc Allergy (Verified 05/06/18 12:46) Unknown amoxicillin trihydrate [From Augmentin] Adverse Reaction (Verified 05/06/18 12:46) Upset Stomach diclofenac sodium [From Arthrotec] Adverse Reaction (Verified 05/06/18 12:46) Upset Stomach doxycycline Adverse Reaction (Verified 05/06/18 12:46) Upset Stomach erythromycin base Adverse Reaction (Verified 05/06/18 12:46) Upset Stomach etodolac [From Lodine] Adverse Reaction (Verified 05/06/18 12:46) Upset Stomach flurbiprofen [From Ansaid] Adverse Reaction (Verified 05/06/18 12:46) Upset Stomach misoprostol [From Arthrotec] Adverse Reaction (Verified 05/06/18 12:46) Upset Stomach NSAIDS (Non-Steroidal Anti-Inflamma Adverse Reaction (Verified 05/06/18 12:46) Other potassium clavulanate [From Augmentin] Adverse Reaction (Verified 05/06/18 12:46) Upset Stomach rofecoxib [From Vioxx] Adverse Reaction (Verified 05/06/18 12:46) Upset Stomach Medications to take at Discharge Prednisone 5 mg PO LUNCH 09/18/17 Acetaminophen [Tylenol] 1,000 mg PO Q8H PRN PRN tab 10/28/17 apixaban 5 mg tablet 2.5 mg PO BID tab 02/14/18 potassium chloride ER 10 mEq tablet,extended release 10 meq PO DAILY 02/14/18 B12/Levomefolate Calcium/B-6 [Folbic Rf Tablet] 1 ea PO DAILY 04/07/18 Omeprazole [Prilosec] 10 mg PO DAILY 04/07/18 Prednisone 10 mg PO BREAKFAST 04/07/18 traMADol [Ultram] 25 mg PO BID 04/07/18 Albuterol Inhaler [Ventolin Hfa] 1 - 2 puff INHALATION Q4H PRN PRN #1 inhaler 05/07/18 Menthol/Lanolin/Calamine/Znox [Calmoseptine Ointment] 1 applic TOPICAL BID tube 05/07/18 Metoprolol Tartrate [Lopressor (beta ab)] 25 mg PO BID #60 tablet 05/07/18 Vancomycin [Vancocin] 125 mg PO Q6H 10 Days #40 capsule 05/07/18 predniSONE tablet 20 mg PO BIDCM #10 tablet 05/07/18 The following prescriptions were given: Albuterol Inhaler [Ventolin Hfa] 1 - 2 puff INHALATION Q4H PRN PRN #1 inhaler PRN Reason: Shortness Of Breath Metoprolol Tartrate [Lopressor (beta ab)] 25 mg PO BID #60 tablet predniSONE tablet 20 mg PO BIDCM #10 tablet Vancomycin [Vancocin] 125 mg PO Q6H 10 Days #40 capsule Primary Care Physician: Jared Romero MD [Primary Care Provider] - Please follow up with your Primary Care Physician in: 1 Week Test Results: Test results from this visit will be discussed in further detail at your follow- up appointment, if applicable. Proposed Discharge Date: 05/07/18
--- NOTE | 2018-05-07 14:00 | PCM.DC.SUM ---
<Jodi Holden - Last Filed: 05/07/18 14:09> Discharge Date and Diagnosis Date of Admission: 05/06/18 Date of Discharge: 05/07/18 - Primary Discharge Diagnosis 1. Acute bronchitis secondary to RSV A 2. Acute C. difficile 3. Staph + urine culture, suspect contamination 4. Sinus tachycardia 5. Chronic iron deficiency anemia with occult blood positive stool 6. 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 Stable exam since 03/02/2018 Electronically Signed: Misael Jiménez MD at 15:23 EST , Service support , Consultations 05/06/18 19:55 Consult: Onc/Wound/screening tech Routine Comment: Reason for Consult:: Right lower leg ulcer Operations: None Procedures: None Summary of Care Provided: The patient is a 77 year old F admitted 05/06/2018 due to cough, fever, diarrhea, weakness. She has a past medical history of chronic kidney disease stage III, history of DVT in 2012 and PE in September 2017, Baltazar's disease, hypertension, hyperlipidemia, history of bowel perforation, iron deficiency anemia, chronic venous insufficiency. 1. Acute bronchitis, secondary to acute RSV A, initially treated as outpatient with Levaquin-chest x-ray on admission without acute process. Patient will continue prednisone 20 mg twice daily for 5 days. She will then resume prior prednisone regimen which includes 10 mg in the morning and 5 mg at night which she takes chronically for adrenal insufficiency. Patient was given albuterol inhaler for as needed use for shortness of breath/wheezing. Breathing and cough improved. Follow-up with primary care physician in 1 week. 2. Acute C. difficile-diarrhea improved. Discharged on vancomycin 125 mg p.o. 4 times daily for 10 days. 3. Sinus tachycardia-unclear etiology. Increase home metoprolol regimen to 25 mg twice daily. Patient had echo February 2018 which showed an EF of 55%, stage I diastolic dysfunction, mild aortic stenosis. EKG showed sinus tachycardia. Heart rate well controlled on increase metoprolol regimen. Patient follows with Dr. Uriostegui, continue outpatient follow-up. 4. Chronic iron deficiency anemia-stool positive for occult blood. Hemoglobin stable. Baseline hemoglobin 8-10. Hemoglobin on admission 10.6. Follow-up with primary care physician in 1 week with further workup as found appropriate. 5. Chronic venous insufficiency, with right lower venous stasis dermatitis wound right lateral calf, present on admission-cleanse with normal saline daily. Apply Adaptic to right lower extremity. Meet wraps bilateral lower extremities. Wound does not appear infected, no drainage noted. 6. Chronic kidney disease stage III-at baseline. 7. History of DVT/PE- on eliquis. 8. [place]'s disease-on chronic prednisone therapy. 9. Hypertension-stable, home metoprolol regimen increased to 25 mg twice daily. 10. Hyperlipidemia-not on statin. 11. History of bowel perforation/intra-abdominal abscess/history of GI bleed-continue PPI General: Alert, Oriented x3, Cooperative HEENT: Atraumatic, PERRLA, EOMI, Normocephalic Oral: Dry Mucosa Neck: Supple, No JVD, Negative Carotid Bruits Lungs: Diminished, Rhonchi Cardiovascular: Regular Rhythm, Normal S1, Normal S2, Murmur, Tachycardic Abdomen: Bowel Sounds Present, Soft, Non Tender, Non-Distended Extremities: No clubbing, No cyanosis, Capillary Refill Less than 3 Seconds, Edema - BLLE Skin: - - Right lateral calf open area, not infected appearing. No drainage. Chronic bilateral lower extremity stasis dermatitis. Musculoskeletal: No Tenderness to Palpation of Joints or Extremities Neurological: Cranial nerves II-XII grossly intact, Neuro grossly intact Psych/Mental Status: Normal Affect, Appropriate Patient seen and examined prior to discharge. Physical assessment as noted above. Patient is stable for discharge with follow up recommendations as noted above. This patient was seen by KATHY Beltran under the supervision of Dr. Llamas. - Physical Exam Vital Signs Temp Pulse Resp BP Pulse Ox 98.1 F 95 16 148/71 H 96 05/07/18 12:41 05/07/18 12:41 05/07/18 12:41 05/07/18 12:41 05/07/18 12:41 Oxygen Flow Rate (L/min) 2 Oxygen Delivery Method Room Air Weight: 150 lb 2.157 oz Body Mass Index (BMI) 29.3 Intake and Output for Last 24 Hours 05/05/18 05/06/18 05/07/18 23:59 23:59 23:59 Intake Total 712 / 712 1818 / 1818 Balance 712 / 712 1818 / 1818 Microbiology Past 72 Hours 05/06/18 16:23 Urine Culture - Preliminary Urine, Clean Catch Staphylococcus species 05/06/18 20:10 Respiratory Panel (PCR) - Final Mucosa - Nasopharyngeal RSV A 05/06/18 16:42 Enteric Bacteriology - Final Stool 05/06/18 16:42 C. difficile DNA Amplification - Final Stool Toxigenic C. difficile DNA 05/06/18 16:42 Stool Lactoferrin - Final Stool 05/06/18 16:42 Stool Occult Blood (CANDE) - Final Stool Occult Blood Positive 05/06/18 14:35 Influenza Types A,B Direct FA (CANDE) - Final Mucosa - Nose Laboratory Tests Past 24 Hrs 05/06/18 05/06/18 05/06/18 14:19 14:19 14:19 WBC 7.2 RBC 3.52 L Hgb 10.6 L Hct 35.6 L MCV 101.1 H MCH 30.1 MCHC 29.8 L RDW 23.0 H RDW Differential 85.2 H Plt Count 267 MPV 8.6 Immature Gran % (Auto) 0.100 Neut % (Auto) 89.4 H Lymph % (Auto) 5.9 L [place] % (Auto) 4.3 Eos % (Auto) 0.0 Baso % (Auto) 0.3 Absolute Neuts (auto) 6.5 Absolute Lymphs (auto) 0.43 L Total Counted Not Reportable Differential Comment PT 15.1 H INR 1.2 APTT 30.0 Sodium 143 Potassium 3.8 Chloride 106 Carbon Dioxide 30.0 Anion Gap 7 BUN 17 Creatinine 1.48 H Estim Creat Clear Calc 22.50 Est GFR (MDRD) Af Amer 44 L Est GFR (MDRD) Non-Af 36 L BUN/Creatinine Ratio 11.5 Glucose 102 Lactic Acid Calcium 8.4 L Total Bilirubin 0.30 AST 10 L ALT 18 Alkaline Phosphatase 73 Troponin I < 0.015 Total Protein 6.2 L Albumin 2.5 L Globulin 3.7 Albumin/Globulin Ratio 0.7 L Urine Color Urine Clarity Urine pH Ur Specific [place] Urine Protein Urine Glucose (UA) Urine Ketones Urine Occult Blood Urine Nitrite Urine Bilirubin Urine Urobilinogen Ur Leukocyte Esterase Urine RBC Urine WBC Ur Squamous Epith Cells Amorphous Sediment Urine Bacteria Urine Mucus 05/06/18 05/06/18 14:19 16:23 WBC RBC Hgb Hct MCV MCH MCHC RDW RDW Differential Plt Count MPV Immature Gran % (Auto) Neut % (Auto) Lymph % (Auto) [place] % (Auto) Eos % (Auto) Baso % (Auto) Absolute Neuts (auto) Absolute Lymphs (auto) Total Counted Differential Comment PT INR APTT Sodium Potassium Chloride Carbon Dioxide Anion Gap BUN Creatinine Estim Creat Clear Calc Est GFR (MDRD) Af Amer Est GFR (MDRD) Non-Af BUN/Creatinine Ratio Glucose Lactic Acid 1.5 Calcium Total Bilirubin AST ALT Alkaline Phosphatase Troponin I Total Protein Albumin Globulin Albumin/Globulin Ratio Urine Color Yellow Urine Clarity Cloudy Urine pH 8.0 Ur Specific [place] 1.015 Urine Protein Negative Urine Glucose (UA) Normal Urine Ketones Negative Urine Occult Blood Negative Urine Nitrite Negative Urine Bilirubin Negative Urine Urobilinogen Normal Ur Leukocyte Esterase 25 H Urine RBC 0 SEEN Urine WBC 0 SEEN Ur Squamous Epith Cells 0-5 SEEN Amorphous Sediment 2+ Urine Bacteria 1+ Urine Mucus 0 SEEN Discharge Diet: Low fat/ Low Cholesterol Discharge Activity: Return to Normal Activity Call your doctor if you observe: Fever of 101 or Higher, Shortness of breath, Dizziness, Fainting spells, Chest pain Home Medications: Medications to take at Discharge Prednisone 5 mg PO LUNCH 09/18/17 Acetaminophen [Tylenol] 1,000 mg PO Q8H PRN PRN tab 10/28/17 apixaban 5 mg tablet 2.5 mg PO BID tab 02/14/18 potassium chloride ER 10 mEq tablet,extended release 10 meq PO DAILY 02/14/18 B12/Levomefolate Calcium/B-6 [Folbic Rf Tablet] 1 ea PO DAILY 04/07/18 Omeprazole [Prilosec] 10 mg PO DAILY 04/07/18 Prednisone 10 mg PO BREAKFAST 04/07/18 traMADol [Ultram] 25 mg PO BID 04/07/18 Albuterol Inhaler [Ventolin Hfa] 1 - 2 puff INHALATION Q4H PRN PRN #1 inhaler 05/07/18 Menthol/Lanolin/Calamine/Znox [Calmoseptine Ointment] 1 applic TOPICAL BID tube 05/07/18 Metoprolol Tartrate [Lopressor (beta ab)] 25 mg PO BID #60 tablet 05/07/18 Vancomycin [Vancocin] 125 mg PO Q6H 10 Days #40 capsule 05/07/18 predniSONE tablet 20 mg PO BIDCM #10 tablet 05/07/18 Following Prescrptions Were Given to Patient: Albuterol Inhaler [Ventolin Hfa] 1 - 2 puff INHALATION Q4H PRN PRN #1 inhaler PRN Reason: Shortness Of Breath Metoprolol Tartrate [Lopressor (beta ab)] 25 mg PO BID #60 tablet predniSONE tablet 20 mg PO BIDCM #10 tablet Vancomycin [Vancocin] 125 mg PO Q6H 10 Days #40 capsule Primary Care Physician: Jared Romero MD [Primary Care Provider] - Please follow up with your Primary Care Physician in: 1 Week Disposition: Home Minutes spent on discharge:: 35 Patient Condition:: Stable Medical Necessity - Tobacco Use Smoking Status: Never smoker Meaningful Use Info Meaningful Use Diagnoses (Choose all that apply): None applicable <FarhadToluMansoor - Last Filed: 05/07/18 18:04> Discharge Date and Diagnosis - Secondary Discharge Diagnosis Chronic Problems (Last Reviewed 05/04/18 @ 12:51 by Desi Garcia) Non-rheumatic aortic stenosis (Chronic) Hypertensive nephropathy (Chronic) Hyperlipidemia (Chronic) Atherosclerosis of coronary artery of [place] without angina pectoris (Chronic) Bilateral pulmonary embolism (Chronic) DVT (deep venous thrombosis) (Chronic) Stage III chronic kidney disease (Chronic) Addisons disease (Chronic) Hospital Course and Treatment Consultations 05/06/18 19:55 Consult: Onc/Wound/screening tech Routine Comment: Reason for Consult:: Right lower leg ulcer Summary of Care Provided: This patient was seen in conjunction with PHOTOGRAPHIC SPOTTERJodi. I have independently interviewed and examined the patient and reviewed pertinent history, examination findings, laboratory and plan of management. I have reviewed the note and agree with the documented findings with the few additional points. In brief, patient is admitted for acute bronchitis secondary to RSV and acute C. difficile colitis secondary to recent Levaquin. Patient does not need antibiotic. Patient is discharged on vancomycin 125 mg p.o. 4 times daily for 10 more days. Patient is on conservative management for chronic venous insufficiency. Patient also advised to follow vascular surgeon for chronic venous insufficiency and venous valve incompetence. I have discussed my assessment with PHOTOGRAPHIC SPOTTER, Jodi and orders have been reviewed. [] Discharge medication reconciliation done. Discharge follow-up instructions completed. Discharge process discussed with the patient. Subjective: Seen and examined. Patient had about 2-3 loose bowel movement yesterday and today she had one semisolid bowel movement. No blood in the stool noticed. Patient recently had Cipro and most probably colitis C. difficile after Cipro. Patient also has viral bronchitis. - Physical Exam General: Alert, Oriented x3, Cooperative HEENT: Atraumatic, PERRLA, EOMI, Normocephalic, - - Hard of hearing Neck: Supple, No JVD, Negative Carotid Bruits Lungs: Diminished - Air entry diminished., Rhonchi Cardiovascular: Regular rate, Regular Rhythm, Normal S1, Normal S2, No murmurs Abdomen: Bowel Sounds Present, Soft, Non Tender Extremities: Capillary Refill Less than 3 Seconds, Edema - Edema of both lower extremities. Patient has history of DVT and PE and venous incompetence of valves of deep veins of lower extremities secondary to chronic venous thrombosis. Follows vascular surgeon. Skin: No rashes, No breakdown Musculoskeletal: No Tenderness to Palpation of Joints or Extremities, Arthritic Changes, Muscle Wasting Neurological: Cranial nerves II-XII grossly intact Psych/Mental Status: Normal Affect, Appropriate Vital Signs Temp Pulse Resp BP Pulse Ox 98.1 F 104 H 20 H 148/71 H 96 05/07/18 12:41 05/07/18 14:01 05/07/18 14:01 05/07/18 12:41 05/07/18 12:41 Oxygen Flow Rate (L/min) 2 Oxygen Delivery Method Room Air Weight: 150 lb 2.157 oz Body Mass Index (BMI) 29.3 Intake and Output for Last 24 Hours 05/05/18 05/06/18 05/07/18 23:59 23:59 23:59 Intake Total 712 / 712 1818 / 1817 Balance 712 / 712 1817 / 1817 Microbiology Past 72 Hours 05/06/18 16:23 Urine Culture - Preliminary Urine, Clean Catch Staphylococcus species 05/06/18 20:10 Respiratory Panel (PCR) - Final Mucosa - Nasopharyngeal RSV A 05/06/18 16:42 Enteric Bacteriology - Final Stool 05/06/18 16:42 C. difficile DNA Amplification - Final Stool Toxigenic C. difficile DNA 05/06/18 16:42 Stool Lactoferrin - Final Stool 05/06/18 16:42 Stool Occult Blood (CANDE) - Final Stool Occult Blood Positive 05/06/18 14:35 Influenza Types A,B Direct FA (CANDE) - Final Mucosa - Nose Code Visit OBSV E&M: 29177 Observation care discharge
--- NOTE | 2018-05-07 14:04 | DS.PCM_ITS ---
<Jodi Holden - Last Filed: 05/07/18 14:09> Discharge Date and Diagnosis Date of Admission: 05/06/18 Date of Discharge: 05/07/18 - Primary Discharge Diagnosis 1. Acute bronchitis secondary to RSV A 2. Acute C. difficile 3. Staph + urine culture, suspect contamination 4. Sinus tachycardia 5. Chronic iron deficiency anemia with occult blood positive stool 6. Chronic venous insufficiency with right lower extremity venous stasis dermatitis/wound to right lateral calf, present on admission - Secondary Discharge Diagnosis Chronic Problems (Last Reviewed 05/04/18 @ 12:51 by Desi Garcia) Non-rheumatic aortic stenosis (Chronic) Hypertensive nephropathy (Chronic) Hyperlipidemia (Chronic) Atherosclerosis of coronary artery of [place] heart without angina pectoris (Chronic) Bilateral pulmonary embolism (Chronic) DVT (deep venous thrombosis) (Chronic) Stage III chronic kidney disease (Chronic) Addisons disease (Chronic) Hospital Course and Treatment Imaging Results: Diagnostic Data Chest X-Ray 05/06/18 14:45 IMPRESSION: No airspace consolidation or pleural effusion. Stable exam since 03/02/2018 Electronically Signed: Misael Jiménez MD at 15:23 EST , Service support , Consultations 05/06/18 19:55 Consult: Onc/Wound/optician apprentice Routine Comment: Reason for Consult:: Right lower leg ulcer Operations: None Procedures: None Summary of Care Provided: The patient is a 77 year old F admitted 05/06/2018 due to cough, fever, diarrhea, weakness. She has a past medical history of chronic kidney disease stage III, history of DVT in 2012 and PE in September 2017, Baltazar's disease, hypertension, hyperlipidemia, history of bowel perforation, iron deficiency anemia, chronic venous insufficiency. 1. Acute bronchitis, secondary to acute RSV A, initially treated as outpatient with Levaquin-chest x-ray on admission without acute process. Patient will continue prednisone 20 mg twice daily for 5 days. She will then resume prior prednisone regimen which includes 10 mg in the morning and 5 mg at night which she takes chronically for adrenal insufficiency. Patient was given albuterol inhaler for as needed use for shortness of breath/wheezing. Breathing and cough improved. Follow-up with primary care physician in 1 week. 2. Acute C. difficile-diarrhea improved. Discharged on vancomycin 125 mg p.o. 4 times daily for 10 days. 3. Sinus tachycardia-unclear etiology. Increase home metoprolol regimen to 25 mg twice daily. Patient had echo February 2018 which showed an EF of 55%, stage I diastolic dysfunction, mild aortic stenosis. EKG showed sinus tachycardia. He art rate well controlled on increase metoprolol regimen. Patient follows with Dr. Uriostegui, continue outpatient follow-up. 4. Chronic iron deficiency anemia-stool positive for occult blood. Hemoglobin stable. Baseline hemoglobin 8-10. Hemoglobin on admission 10.6. Follow-up with primary care physician in 1 week with further workup as found appropriate. 5. Chronic venous insufficiency, with right lower venous stasis dermatitis wound right lateral calf, present on admission-cleanse with normal saline daily. Apply Adaptic to right lower extremity. Meet wraps bilateral lower extremities. Wound does not appear infected, no drainage noted. 6. Chronic kidney disease stage III-at baseline. 7. History of DVT/PE- on eliquis. 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 9. Hypertension-stable, home metoprolol regimen increased to 25 mg twice daily. 10. Hyperlipidemia-not on statin. 11. History of bowel perforation/intra-abdominal abscess/history of GI bleed- continue PPI General: Alert, Oriented x3, Cooperative HEENT: Atraumatic, PERRLA, EOMI, Normocephalic Oral: Dry Mucosa Neck: Supple, No JVD, Negative Carotid Bruits Lungs: Diminished, Rhonchi Cardiovascular: Regular Rhythm, Normal S1, Normal S2, Murmur, Tachycardic Abdomen: Bowel Sounds Present, Soft, Non Tender, Non-Distended Extremities: No clubbing, No cyanosis, Capillary Refill Less than 3 Seconds, Edema - BLLE Skin: - - Right lateral calf open area, not infected appearing. No drainage. Chronic bilateral lower extremity stasis dermatitis. Musculoskeletal: No Tenderness to Palpation of Joints or Extremities Neurological: Cranial nerves II-XII grossly intact, Neuro grossly intact Psych/Mental Status: Normal Affect, Appropriate Patient seen and examined prior to discharge. Physical assessment as noted ab ove. Patient is stable for discharge with follow up recommendations as noted above. This patient was seen by KATHY Beltran under the supervision of Dr. Llamas. - Physical Exam Vital Signs Temp Pulse Resp BP Pulse Ox 98.1 F 95 16 148/71 H 96 05/07/18 12:41 05/07/18 12:41 05/07/18 12:41 05/07/18 12:41 05/07/18 12:41 Oxygen Flow Rate (L/min) 2 Oxygen Delivery Method Room Air Weight: 150 lb 2.157 oz Body Mass Index (BMI) 29.3 Intake and Output for Last 24 Hours 05/05/18 05/06/18 05/07/18 23:59 23:59 23:59 Intake Total 712 / 712 1818 / 1818 Balance 712 / 712 1818 / 1818 Microbiology Past 72 Hours 05/06/18 16:23 Urine Culture - Preliminary Urine, Clean Catch Staphylococcus species 05/06/18 20:10 Respiratory Panel (PCR) - Final Mucosa - Nasopharyngeal RSV A 05/06/18 16:42 Enteric Bacteriology - Final Stool 05/06/18 16:42 C. difficile DNA Amplification - Final Stool Toxigenic C. difficile DNA 05/06/18 16:42 Stool Lactoferrin - Final Stool 05/06/18 16:42 Stool Occult Blood (CANDE) - Final Stool Occult Blood Positive 05/06/18 14:35 Influenza Types A,B Direct FA (CANDE) - Final Mucosa - Nose Laboratory Tests Past 24 Hrs 05/06/18 05/06/18 05/06/18 14:19 14:19 14:19 WBC 7.2 RBC 3.52 L Hgb 10.6 L Hct 35.6 L MCV 101.1 H MCH 30.1 MCHC 29.8 L RDW 23.0 H RDW Differential 85.2 H Plt Count 267 MPV 8.6 Immature Gran % (Auto) 0.100 Neut % (Auto) 89.4 H Lymph % (Auto) 5.9 L [place] % (Auto) 4.3 Eos % (Auto) 0.0 Baso % (Auto) 0.3 Absolute Neuts (auto) 6.5 Absolute Lymphs (auto) 0.43 L Total Counted Not Reportable Differential Comment PT 15.1 H INR 1.2 APTT 30.0 Sodium 143 Potassium 3.8 Chloride 106 Carbon Dioxide 30.0 Anion Gap 7 BUN 17 Creatinine 1.48 H Estim Creat Clear Calc 22.50 Est GFR (MDRD) Af Amer 44 L Est GFR (MDRD) Non-Af 36 L BUN/Creatinine Ratio 11.5 Glucose 102 Lactic Acid Calcium 8.4 L Total Bilirubin 0.30 AST 10 L ALT 18 Alkaline Phosphatase 73 Troponin I < 0.015 Total Protein 6.2 L Albumin 2.5 L Globulin 3.7 Albumin/Globulin Ratio 0.7 L Urine Color Urine Clarity Urine pH Ur Specific [place] Urine Protein Urine Glucose (UA) Urine Ketones Urine Occult Blood Urine Nitrite Urine Bilirubin Urine Urobilinogen Ur Leukocyte Esterase Urine RBC Urine WBC Ur Squamous Epith Cells Amorphous Sediment Urine Bacteria Urine Mucus 05/06/18 05/06/18 14:19 16:23 WBC RBC Hgb Hct MCV MCH MCHC RDW RDW Differential Plt Count MPV Immature Gran % (Auto) Neut % (Auto) Lymph % (Auto) [place] % (Auto) Eos % (Auto) Baso % (Auto) Absolute Neuts (auto) Absolute Lymphs (auto) Total Counted Differential Comment PT INR APTT Sodium Potassium Chloride Carbon Dioxide Anion Gap BUN Creatinine Estim Creat Clear Calc Est GFR (MDRD) Af Amer Est GFR (MDRD) Non-Af BUN/Creatinine Ratio Glucose Lactic Acid 1.5 Calcium Total Bilirubin AST ALT Alkaline Phosphatase Troponin I Total Protein Albumin Globulin Albumin/Globulin Ratio Urine Color Yellow Urine Clarity Cloudy Urine pH 8.0 Ur Specific [place] 1.015 Urine Protein Negative Urine Glucose (UA) Normal Urine Ketones Negative Urine Occult Blood Negative Urine Nitrite Negative Urine Bilirubin Negative Urine Urobilinogen Normal Ur Leukocyte Esterase 25 H Urine RBC 0 SEEN Urine WBC 0 SEEN Ur Squamous Epith Cells 0-5 SEEN Amorphous Sediment 2+ Urine Bacteria 1+ Urine Mucus 0 SEEN Discharge Diet: Low fat/ Low Cholesterol Discharge Activity: Return to Normal Activity Call your doctor if you observe: Fever of 101 or Higher, Shortness of breath, Dizziness, Fainting spells, Chest pain Home Medications: Medications to take at Discharge Prednisone 5 mg PO LUNCH 09/18/17 Acetaminophen [Tylenol] 1,000 mg PO Q8H PRN PRN tab 10/28/17 apixaban 5 mg tablet 2.5 mg PO BID tab 02/14/18 potassium chloride ER 10 mEq tablet,extended release 10 meq PO DAILY 02/14/18 B12/Levomefolate Calcium/B-6 [Folbic Rf Tablet] 1 ea PO DAILY 04/07/18 Omeprazole [Prilosec] 10 mg PO DAILY 04/07/18 Prednisone 10 mg PO BREAKFAST 04/07/18 traMADol [Ultram] 25 mg PO BID 04/07/18 Albuterol Inhaler [Ventolin Hfa] 1 - 2 puff INHALATION Q4H PRN PRN #1 inhaler 05/07/18 Menthol/Lanolin/Calamine/Znox [Calmoseptine Ointment] 1 applic TOPICAL BID tube 05/07/18 Metoprolol Tartrate [Lopressor (beta ab)] 25 mg PO BID #60 tablet 05/07/18 Vancomycin [Vancocin] 125 mg PO Q6H 10 Days #40 capsule 05/07/18 predniSONE tablet 20 mg PO BIDCM #10 tablet 05/07/18 Following Prescrptions Were Given to Patient: Albuterol Inhaler [Ventolin Hfa] 1 - 2 puff INHALATION Q4H PRN PRN #1 inhaler PRN Reason: Shortness Of Breath Metoprolol Tartrate [Lopressor (beta ab)] 25 mg PO BID #60 tablet predniSONE tablet 20 mg PO BIDCM #10 tablet Vancomycin [Vancocin] 125 mg PO Q6H 10 Days #40 capsule Primary Care Physician: Jared Romero MD [Primary Care Provider] - Please follow up with your Primary Care Physician in: 1 Week Disposition: Home Minutes spent on discharge:: 35 Patient Condition:: Stable Medical Necessity - Tobacco Use Smoking Status: Never smoker Meaningful Use Info Meaningful Use Diagnoses (Choose all that apply): None applicable <Mansoor Llamas - Last Filed: 05/07/18 18:04> Discharge Date and Diagnosis - Secondary Discharge Diagnosis Chronic Problems (Last Reviewed 05/04/18 @ 12:51 by Desi Garcia) Non-rheumatic aortic stenosis (Chronic) Hypertensive nephropathy (Chronic) Hyperlipidemia (Chronic) Atherosclerosis of coronary artery of [place] heart without angina pectoris (Chronic) Bilateral pulmonary embolism (Chronic) DVT (deep venous thrombosis) (Chronic) Stage III chronic kidney disease (Chronic) Addisons disease (Chronic) Hospital Course and Treatment Consultations 05/06/18 19:55 Consult: Onc/Wound/optician apprentice Routine Comment: Reason for Consult:: Right lower leg ulcer Summary of Care Provided: This patient was seen in conjunction with ACCESS SERVICES LIBRARIANJodi. I have independently interviewed and examined the patient and reviewed pertinent history, examination findings, laboratory and plan of management. I have reviewed the note and agree with the documented findings with the few additional points. In brief, patient is admitted for acute bronchitis secondary to RSV and acute C. difficile colitis secondary to recent Levaquin. Patient does not need antibiotic. Patient is discharged on vancomycin 125 mg p.o. 4 times daily for 10 more days. Patient is on conservative management for chronic venous insufficiency. Patient also advised to follow vascular surgeon for chronic venous insufficiency and venous valve incompetence. I have discussed my assessment with ACCESS SERVICES LIBRARIAN, Jodi and orders have been reviewed. [] Discharge medication reconciliation done. Discharge follow-up instructions completed. Discharge process discussed with the patient. Subjective: Seen and examined. Patient had about 2-3 loose bowel movement yesterday and today she had one semisolid bowel movement. No blood in the stool noticed. Patient recently had Cipro and most probably colitis C. difficile after Cipro. Patient also has viral bronchitis. - Physical Exam General: Alert, Oriented x3, Cooperative HEENT: Atraumatic, PERRLA, EOMI, Normocephalic, - - Hard of hearing Neck: Supple, No JVD, Negative Carotid Bruits Lungs: Diminished - Air entry diminished., Rhonchi Cardiovascular: Regular rate, Regular Rhythm, Normal S1, Normal S2, No murmurs Abdomen: Bowel Sounds Present, Soft, Non Tender Extremities: Capillary Refill Less than 3 Seconds, Edema - Edema of both lower extremities. Patient has history of DVT and PE and venous incompetence of valves of deep veins of lower extremities secondary to chronic venous thrombosis. Follows vascular surgeon. Skin: No rashes, No breakdown Musculoskeletal: No Tenderness to Palpation of Joints or Extremities, Arthritic Changes, Muscle Wasting Neurological: Cranial nerves II-XII grossly intact Psych/Mental Status: Normal Affect, Appropriate Vital Signs Temp Pulse Resp BP Pulse Ox 98.1 F 104 H 20 H 148/71 H 96 05/07/18 12:41 05/07/18 14:01 05/07/18 14:01 05/07/18 12:41 05/07/18 12:41 Oxygen Flow Rate (L/min) 2 Oxygen Delivery Method Room Air Weight: 150 lb 2.157 oz Body Mass Index (BMI) 29.3 Intake and Output for Last 24 Hours 05/05/18 05/06/18 05/07/18 23:59 23:59 23:59 Intake Total 712 / 712 8 / 1817 Balance 712 / 712 1817 / 1817 Microbiology Past 72 Hours 05/06/18 16:23 Urine Culture - Preliminary Urine, Clean Catch Staphylococcus species 05/06/18 20:10 Respiratory Panel (PCR) - Final Mucosa - Nasopharyngeal RSV A 05/06/18 16:42 Enteric Bacteriology - Final Stool 05/06/18 16:42 C. difficile DNA Amplification - Final Stool Toxigenic C. difficile DNA 05/06/18 16:42 Stool Lactoferrin - Final Stool 05/06/18 16:42 Stool Occult Blood (CANDE) - Final Stool Occult Blood Positive 05/06/18 14:35 Influenza Types A,B Direct FA (CANDE) - Final Mucosa - Nose Code Visit OBSV E&M: [id number] Observation care discharge
== END 2018-05-07 13:58 | disposition home or self-care (01) ==
LOC: ED 17:20 → PCU 17:23
PROVIDERS: Admitting Provider Internal Medicine; Emergency Provider Emergency Medicine; Family Provider Family Medicine; PCP Family Medicine; Visit Provider Internal Medicine
DX: J20.5 Acute bronchitis due to respiratory syncytial virus (principal); D50.9 Iron deficiency anemia, unspecified; R00.0 Tachycardia, unspecified; E86.0 Dehydration; E78.5 Hyperlipidemia, unspecified; I12.9 Hypertensive chronic kidney disease with stage 1 through stage 4 chronic kidney disease, or unspecified chronic kidney disease; N18.3 Chronic kidney disease, stage 3 (moderate); E27.1 Primary adrenocortical insufficiency; I25.10 Atherosclerotic heart disease of native coronary artery without angina pectoris; M19.90 Unspecified osteoarthritis, unspecified site; K21.9 Gastro-esophageal reflux disease without esophagitis; M35.3 Polymyalgia rheumatica; E03.9 Hypothyroidism, unspecified; Z79.52 Long term (current) use of systemic steroids; Z79.899 Other long term (current) drug therapy; Z79.01 Long term (current) use of anticoagulants; Z86.711 Personal history of pulmonary embolism; Z86.718 Personal history of other venous thrombosis and embolism; I83.012 Varicose veins of right lower extremity with ulcer of calf; L97.219 Non-pressure chronic ulcer of right calf with unspecified severity; A04.72 Enterocolitis due to Clostridium difficile, not specified as recurrent
CPT/HCPCS: 36415; 71046; 80053; 81001; 82274; 83605; 83630; 84484; 85025; 85610; 85730; 87040; 87077; 87086; 87088; 87186; 87493; 87506; 87633; 87804; 93005; 94640; 96361; 96374; 96375; 97802; 99218; 99285; J7030; A4216; G0378

== ENCOUNTER → 2018-05-10 13:58 | Outpatient (CLI) | payer MEDICARE, SELFPAY ==
[2018-05-06 17:55] VITALS: BMI 29.3
[2018-05-10 15:55] LABS: Anion Gap 11 (5-15); BUN 20 mg/dL (7-18); BUN/Creat Ratio 13.4 RATIO (10-20); Calcium,Total 8.9 mg/dL (8.5-10.1); Chloride 107 mmol/L (98-107); Creatinine, Serum 1.49 mg/dL (0.55-1.02); EST Glomerular Filtration Rate 36 mL/min (>60); Est Glom Filt Rate - Afr Amer 43 mL/min (>60); Glucose 117 mg/dL (74-106); Magnesium 1.9 mg/dL (1.6-2.6); Potassium 4.1 mmol/L (3.5-5.1); Sodium Level 145 mmol/L (136-145)
== END ==
PROVIDERS: Family Provider Family Medicine; PCP Family Medicine; Visit Provider Family Medicine
DX: A04.72 Enterocolitis due to Clostridium difficile, not specified as recurrent (principal)
CPT/HCPCS: 36415; 80048; 83735

== ENCOUNTER → 2018-05-23 15:08 | Outpatient (CLI) | payer MEDICARE, SELFPAY ==
[2018-05-06 17:55] VITALS: BMI 29.3
[2018-05-23 17:35] LABS: Absolute Lymphocyte Count 0.63 X10^3/ul (0.83-4.51); Absolute Neutrophil Count 10.1 X10^3/uL (2.0-7.7); Basophil# 0.01 X10^3/uL; Basophil% 0.1 % (0-1); Eosinophil# 0.01 X10^3/uL; Eosinophils% 0.1 % (0-5); Hematocrit 40.3 % (37-47); Hemoglobin 11.5 g/dl (12.0-15.0); Lymphocyte # 0.63 X10^3/ul (4.0); Lymphocyte % 5.4 % (19-41); Mean Corp Hgb Conc 28.5 g/gl (32-36); Mean Corpuscular Hgb 29.9 pg (27.0-32.0); Mean Corpuscular Volume 104.9 fL (81-99); Mean Platelet Vol. 9.8 fl (6.2-12.0); Monocyte# 0.76 X10^3/uL; Monocyte% 6.6 % (0-10); Neutrophil % 87.4 % (47-70); Platelet Count 396 K/mm3 (150-450); RBC Distribution Width CV 21.5 % (11.6-14.6); RBC Distribution Width SD 82.5 fl (35.1-43.9); Red Blood Count 3.84 M/mm3 (4.2-5.4); White Blood Count 11.6 K/mm3 (4.4-11.0)
[2018-05-23 17:36] LABS: Differential Indicated SCAN CRITERIA MET; POSITIVE COUNT NO; POSITIVE DIFFERENTIAL NO; POSITIVE MORPHOLOGY YES
[2018-05-23 18:07] LABS: ALB/GLOB Ratio 0.9 RATIO (0.9-2.4); AST(SGOT) 12 U/L (15-37); Alanine Aminotransfer ALT/SGPT 34 U/L (13-56); Albumin, Serum 2.8 g/dL (3.2-5.0); Alkaline Phosphatase 71 U/L (45-117); Anion Gap 12 (5-15); BUN 22 mg/dL (7-18); BUN/Creat Ratio 16.2 RATIO (10-20); Calcium,Total 8.8 mg/dL (8.5-10.1); Chloride 106 mmol/L (98-107); Creatinine, Serum 1.36 mg/dL (0.55-1.02); EST Glomerular Filtration Rate 40 mL/min (>60); Est Glom Filt Rate - Afr Amer 48 mL/min (>60); Ferritin 205 ng/mL (8-252); Globulin 3.2 g/dL (2.2-4.2); Glucose 90 mg/dL (74-106); Iron 50 ug/dL (50-170); Iron Binding Capacity,Total 265 ug/dL (250-450); Potassium 4.3 mmol/L (3.5-5.1); Sodium Level 146 mmol/L (136-145)
[2018-05-23 18:08] LABS: Anisocytosis 2+; Differential Comment SCANNED
== END ==
PROVIDERS: Family Provider Family Medicine; PCP Family Medicine; Visit Provider Family Medicine
DX: E61.1 Iron deficiency (principal); A04.72 Enterocolitis due to Clostridium difficile, not specified as recurrent
CPT/HCPCS: 36415; 80053; 82728; 83540; 83550; 85025; 87493

== ENCOUNTER 2018-06-04 18:06 | Emergency (ER) | payer MEDICARE, SELFPAY ==
[2018-05-06 17:55] VITALS: BMI 29.3
[2018-06-04] VITALS (7 sets, daily range): BP systolic 116–140; BP diastolic 53–89; PULSE 67–172; RESP 15–22; TEMP 36.6–36.9; O2SAT 97–99; BMI 29.7
--- NOTE | 2018-06-04 18:18 | EKG12_ITS ---
Test Reason : TACHYCARDIA Blood Pressure : / mmHG Vent. Rate : 125 BPM Atrial Rate : 125 BPM P-R Int : 138 ms QRS Dur : 072 ms QT Int : 312 ms P-R-T Axes : -16 -44 061 degrees QTc Int : 450 ms Sinus tachycardia Left axis deviation Moderate voltage criteria for LVH, may be normal variant Nonspecific ST abnormality Abnormal ECG Confirmed by CLAIRE MIN, JAYESH ([id number]), newspaper photo editor [place] MARTINEZ ([id number]) on 06/06/2018 1:07:26 PM Referred By: Confirmed By:JAYESH RANGEL MD
--- NOTE | 2018-06-04 18:27 | ED.DCSUM_ITS ---
- ER Visit Summary Date of Service: 06/04/18 Chief Complaint: Diarrhea History of Present Illness: The patient is a 77 F presenting with diarrhea. Patient states that she was on Cipro approximately 5 weeks ago for an infection in her colon. She states following that she developed C. difficile. She finish ed a course of vancomycin. She continues to have diarrhea. Today she was concerned of bright red blood per rectum. She believes this is irritation secondary to diarrhea. She is on Eliquis for history of previous PE/DVT. She is on prednisone for history of [place]'s disease. She denies abdominal pain. Physical Examination: Vitals are stable. Heart rate 135. patient is afebrile. Alert no acute distress. HEENT exam is unremarkable. Neck is supple. Lungs are clear and equal bilaterally. Heart is regular and tachycardic Abdomen is soft nontender nondistended. No guarding or rebound. Rectal erythema and excoriation Extremities are unremarkable. Skin is warm and dry. No focal neurologic deficit. Remainder of exam is unremarkable. Emergency Department Course and Treatment: EKG is sinus tachycardia rate of 125. Patient was given IV fluids, Zofran. CBC shows white count 15.2, hemoglobin 10.8. Chemistries show sodium 146, glucose 153, BUN 49, creatinine 2.21. Chest x-ray shows no acute process. Repeat EKG shows A. fib with RVR rate of 180. She is given Cardizem IV with improvement of her heart rate to 105. CT abdomen pelvis with p.o. contrast shows free air within the pelvis, with an appearance concerning for rectal perforation. There is associated soft tissue within the right mesorectal fat and presacral region that contain foci of air concerning for underlying abscesses. New T12 compression deformity since the CT dated January 26, 2018, cannot exclude an underlying pathologic fracture. Colonic diverticulosis. Atherosclerosis. Blood cultures were sent. She was given Zosyn IV. She remained hemodynamically stable. She requests [facility] for transfer. D[facility] with [facility]. Disposition: Transfer [facility] Impression: Pneumoperitoneum, rectal perforation, rectal abscess, acute on chronic kidney injury, new onset A. fib with RVR This note was generated with Boxer dictation software. It may contain incorrect words, spelling, and punctuation that were not noted in review of the chart prior to signing ED Disposition - Plan for ED Patient: Chief Complaint: Diarrhea Referrals: Jared Romero MD [Primary Care Provider] -
--- NOTE | 2018-06-04 18:36 | RAD_ITS ---
STUDY: X-RAY CHEST REASON FOR EXAM: Female, 77 years old. Rectal bleeding TECHNIQUE: Single frontal view of the chest. COMPARISON: May 06, 2018 FINDINGS: There is no new focal consolidation. Normal size heart. Normal mediastinum and kina. Normal visualized pulmonary arteries. There is atherosclerotic calcification of the aortic arch with tortuosity. Normal visualized thoracic spine. Normal visualized ribs, clavicles, and shoulders. There are pedicle screws within the visualized lower lumbar spine. There is no demonstrated abnormality of the visualized soft tissue structures of the upper abdomen. RAD/Chest 1 View (Portable) IMPRESSION: No acute cardiopulmonary process. Electronically Signed: Amy Little MD at 19:37 EST Tel , Service support ,
[2018-06-04] MEDS: 0.9% Normal Saline 1,000 ML 1000 ML IV (18:37)
--- NOTE | 2018-06-04 18:53 | CT_ITS ---
[]STUDY: CT ABDOMEN AND PELVIS WITHOUT CONTRAST REASON FOR EXAM: Female, 77 years old. Diarrhea with rectal bleeding. RADIATION DOSAGE (If Supplied By Facility): CTDIvol = ( 17.94 ) mGy, DLP = ( 851.52 ) mGycm TECHNIQUE: Transaxial images were obtained from the dome of the diaphragm to the symphysis pubis with oral contrast, and without intravenous contrast. Sagittal and coronal images were reconstructed. Individualized dose optimization techniques were used for this CT. COMPARISON: January 26, 2018 FINDINGS: The visualized lung bases are unremarkable. There are coronary artery calcifications present. Please note the lack of intravenous contrast limits evaluation of solid visceral organs. Normal liver. Normal gallbladder and extrahepatic biliary system. Normal spleen. Normal pancreas. Normal bilateral adrenal glands. There is a nonobstructing 5.9 mm right renal calculus. There is a too small to characterize high attenuation rounded focus within the right kidney that likely reflects a proteinaceous cysts. There are grossly stable left renal cysts. Normal visualized stomach. Normal small intestine. There are diverticula throughout the colon sigmoid colon. There is perirectal free air. Within the mesorectal fat right of midline there is a new 1.8 x 2.4 cm round focus that contains air. There is associated free air within the pelvis most pronounced along the left pelvic sidewall and tracking into the left inguinal region. There is persistent soft tissue fullness within the presacral region that contains air. There is non-visualization of the appendix. There is diffuse atherosclerotic calcification of the abdominal aorta, without a demonstrated aneurysm. Normal inferior vena cava. There is free air within the retroperitoneum left of midline. Normal urinary bladder. Normal abdominal wall. There are diffuse degenerative changes of the visualized lumbar spine. There are postsurgical changes throughout the lumbar spine. There is a new T12 compression deformity with approximately 95% height loss within the mid vertebra. There is a retropulsed bony segment extending into the canal by 4.[address]/Abdomen/Pel W ORAL Cont Only IMPRESSION: Free air within the pelvis, with an appearance concerning for rectal perforation. There is associated soft tissue within the right mesorectal fat and presacral region that contain foci of air concerning for underlying abscesses. New T12 compression deformity since the CT dated January 26, 2018, cannot exclude an underlying pathologic fracture. Colonic diverticulosis. Atherosclerosis. N.B. : The above information has been verbally conveyed by Amy Little MD to Meme Echevarria MD, AA, on 06/04/2018 21:26:12 (ET). Electronically Signed: Amy Little MD at 21:27 EST Tel , Service support ,
[2018-06-04 18:57] LABS: Absolute Lymphocyte Count 0.43 X10^3/ul (0.83-4.51); Absolute Neutrophil Count 14.4 X10^3/uL (2.0-7.7); Anion Gap 10 (5-15); BUN 49 mg/dL (7-18); BUN/Creat Ratio 22.2 RATIO (10-20); Calcium,Total 8.4 mg/dL (8.5-10.1); Chloride 109 mmol/L (98-107); Creatinine, Serum 2.21 mg/dL (0.55-1.02); EST Glomerular Filtration Rate 23 mL/min (>60); Est Glom Filt Rate - Afr Amer 28 mL/min (>60); Estimated Creatinine Clearance 15.07 ml/min; Glucose 153 mg/dL (74-106); Hematocrit 36.5 % (37-47); Hemoglobin 10.8 g/dl (12.0-15.0); Lymphocyte # 0.43 X10^3/ul (4.0); Lymphocyte % 2.8 % (19-41); Mean Corp Hgb Conc 29.6 g/gl (32-36); Mean Corpuscular Hgb 30.9 pg (27.0-32.0); Mean Corpuscular Volume 104.6 fL (81-99); Mean Platelet Vol. 9.3 fl (6.2-12.0); Monocyte# 0.29 X10^3/uL; Monocyte% 1.9 % (0-10); Neutrophil # 14.43 X10^3/uL (2.7-7.7); Neutrophil % 94.8 % (47-70); Platelet Count 177 K/mm3 (150-450); Potassium 4.2 mmol/L (3.5-5.1); RBC Distribution Width CV 21.8 % (11.6-14.6); RBC Distribution Width SD 82.3 fl (35.1-43.9); Red Blood Count 3.49 M/mm3 (4.2-5.4); Sodium Level 146 mmol/L (136-145); White Blood Count 15.2 K/mm3 (4.4-11.0)
[2018-06-04 18:59] LABS: Differential Indicated SCAN CRITERIA MET; POSITIVE COUNT NO; POSITIVE DIFFERENTIAL YES; POSITIVE MORPHOLOGY YES
[2018-06-04] MEDS: Ondansetron 4 MG/2 ML Vial IV (20:24)
--- NOTE | 2018-06-04 20:55 | EKG12_ITS ---
Test Reason : REPEAT Blood Pressure : / mmHG Vent. Rate : 180 BPM Atrial Rate : 174 BPM P-R Int : 000 ms QRS Dur : 070 ms QT Int : 232 ms P-R-T Axes : 000 -33 165 degrees QTc Int : 401 ms Atrial fibrillation with rapid ventricular response with premature ventricular or aberrantly conducte d complexes Left axis deviation Minimal voltage criteria for LVH, may be normal variant Marked ST abnormality, possible inferior subendocardial injury Abnormal ECG Confirmed by CLAIRE MIN, JAYESH ([id number]), online content editor [place]IA MARTINEZ ([id number]) on 06/06/2018 1:07:43 PM Referred By: MAXI Confirmed By:JAYESH RANGEL MD
--- NOTE | 2018-06-04 20:58 | ED.RN ---
DR. GERMAN NOTIFIED OF SEPSIS ALERT AND INQUIRED ABOUT BLOOD CULTURES. PER DR. GERMAN NO BLOOD CULTURES NEEDED AT THIS TIME. WILL CONTINUE TO MONITOR.
--- NOTE | 2018-06-04 20:59 | ED.RN ---
PATIENT HEART RATE UP INTO THE 180'S. PATIENT STATES SHE CAN FEEL HER HEART BEATING FAST BUT NO FURTHER SYMPTOMS. DR. GERMAN NOTIFIED. CALLED FOR EKG. WILL CONTINUE TO MONITOR.
[2018-06-04] MEDS: dilTIAZem 25 MG/5 ML Vial 10 MG IV BOLUS (21:12)
[2018-06-04] MEDS: Piperacil/Tazobactam 3.375 GM/50 ML ML IV (22:30)
[2018-06-04] MEDS: 0.9% Normal Saline 1,000 ML 999 ML IV (22:39)
[2018-06-04 23:02] LABS: Squamous Epithelial Cells - UA 0 SEEN /hpf (5-10)
[2018-06-04 23:06] LABS: Color, Urine Yellow (Yellow); Glucose, Dipstick Normal (Normal); Ketone-Dipstick 5 mg/dl (Negative); Leukocyte Esterase-Dipstick 100 /ul (Negative); Nitrite-Dipstick Negative (Negative); Occult Blood-Urine 50 /ul (Negative); Protein-Dipstick 15 mg/dl (Negative); Specific Gravity, Urine 1.025 (1.002-1.030); Urine Bilirubin Dipstick Negative (Negative); Urine Clarity Clear (Clear); Urine Urobilinogen Normal (Normal)
[2018-06-04 23:13] LABS: Hyaline Cast 0-5 SEEN /lpf (0-5)
[2018-06-04 23:14] LABS: Bacteria RARE /hpf (None Seen); Mucous, Urine RARE /hpf (<or=2+); Red Blood Cells-Urine 0-5 SEEN /hpf (0-5); White Blood Cells 0-5 SEEN /hpf (0-5)
--- OUTSIDE RECORDS SUMMARY | 2018-08-07 12:11 | XMS RPT_ITS ---
:1940 Author Organization [facility] Support Name Relationship Address Phone MATTER (POA), ROSELYN Unavailable [address] + [place] [address] LUIS MCCULLOUGH Unavailable Unavailable + R Unavailable Unavailable Unavailable MATTER (POA), ROSELYN Unavailable [address] + [place] [address] LUIS MCCULLOUGH Unavailable Unavailable + R Unavailable Unavailable Unavailable MATTER (POA), ROSELYN Unavailable [address] + [place] [address] LUIS MCCULLOUGH Unavailable Unavailable + R Unavailable Unavailable Unavailable MATTER (POA), ROSELYN Unavailable [address] + [place] [address] LUIS MCCULLOUGH Unavailable Unavailable + R Unavailable Unavailable Unavailable MATTER (POA), ROSELYN Unavailable [address] + [place] [address] LUIS MCCULLOUGH Unavailable Unavailable + R Unavailable Unavailable Unavailable MATTER (POA), ROSELYN Unavailable [address] + [place] [address] LUIS MCCULLOUGH Unavailable Unavailable + R Unavailable Unavailable Unavailable MATTER (POA), ROSELYN Unavailable [address] + [place] [address] LUIS MCCULLOUGH Unavailable Unavailable + R Unavailable Unavailable Unavailable MATTER (POA), ROSELYN Unavailable [address] + [place] [address] LUIS MCCULLOUGH Unavailable // + //, [place] // R Unavailable Unavailable Unavailable MATTER (POA), ROSELYN Unavailable [address] + [place] [address] JAMELLUIS ALARCON Unavailable Unavailable + R Unavailable Unavailable Unavailable MATTER (POA), ROSELYN Unavailable [address] + [place] [address] LUIS MCCULLOUGH Unavailable Unavailable + R Unavailable Unavailable Unavailable MATTER (POA), ROSELYN Unavailable [address] + [place] [address] JAMELLUIS ALARCON Unavailable Unavailable + R Unavailable Unavailable Unavailable MATTER (POA), ROSELYN Unavailable [address] + [place] [address] LUIS MCCULLOUGH Unavailable Unavailable + R Unavailable Unavailable Unavailable MATTER (POA), ROSELYN Unavailable [address] + [place] [address] LUIS MCCULLOUGH Unavailable Unavailable + R Unavailable Unavailable Unavailable MATTER (POA), ROSELYN Unavailable [address] + [place] [address] LUIS MCCULLOUGH Unavailable Unavailable + R Unavailable Unavailable Unavailable MATTER (POA), ROSELYN Unavailable [address] + [place] [address] LUIS MCCULLOUGH Unavailable Unavailable + R Unavailable Unavailable Unavailable MATTER (POA), ROSELYN Unavailable [address] + [place] [address] JAMEL, LUIS Unavailable Unavailable + R Unavailable Unavailable Unavailable JAMEL, LUIS Unavailable Unavailable + R Unavailable Unavailable Unavailable JAMEL, LUIS Unavailable Unavailable + R Unavailable Unavailable Unavailable JAMEL, LUIS Unavailable 1 + [place] [address] R Unavailable Unavailable Unavailable JAMEL, LUIS Unavailable 1 + [place] [address] R Unavailable Unavailable Unavailable R Unavailable Unavailable Unavailable MARIE HENNESSY Unavailable [address] + [place] [address] JAMEL, ULIS Unavailable [address] + [address] [place], [place] R Unavailable Unavailable Unavailable GERHARD, MARIE Unavailable [address] + [place] [address] JAMEL, LUIS Unavailable [address] + [address] [place], [place] R Unavailable Unavailable Unavailable GERHARD, MARIE Unavailable [address] + [place] [address] JAMEL, LUIS Unavailable [address] + [address] [place], [place] R Unavailable Unavailable Unavailable GERHARD, MARIE Unavailable [address] + [place] [address] JAMEL, LUIS Unavailable [address] + [address] [place], [place] R Unavailable Unavailable Unavailable GERHARD, MARIE Unavailable [address] + [place] [address] JAMEL, LUIS Unavailable [address] + [address] [place], [place] R Unavailable Unavailable Unavailable GERHARD, MARIE Unavailable [address] + [place] [address] JAMEL, LUIS Unavailable [address] + [address] [place], [place] R Unavailable Unavailable Unavailable GERHARD, MARIE Unavailable [address] + [place] [address] JAMEL, LUIS Unavailable [address] + [address] [place], [place] R Unavailable Unavailable Unavailable GERHARD, MARIE Unavailable [address] + [place] [address] JAMEL, LUIS Unavailable [address] + [address] [place], [place] R Unavailable Unavailable Unavailable GERHARD, MARIE Unavailable [address] + [place] [address] JAMEL, LUIS Unavailable [address] + [address] [place], [place] R Unavailable Unavailable Unavailable GERHARD, MARIE Unavailable [address] + [place] [address] JAMEL LUIS Unavailable [address] + [address] [place], [place] R Unavailable Unavailable Unavailable GERHARD, MARIE Unavailable [address] + [place] [address] JAMEL, LUIS Unavailable [address] + [address] [place], [place] R Unavailable Unavailable Unavailable GERHARD, MARIE Unavailable [address] + [place] [address] JAMEL, LUIS Unavailable [address] + [address] [place], [place] R Unavailable Unavailable Unavailable GERHARD, MARIE Unavailable [address] + [place] [address] JAMEL, LUIS Unavailable [address] + [address] [place], [place] R Unavailable Unavailable Unavailable GERHARD, MARIE Unavailable [address] + [place] [address] JAMEL LUIS Unavailable [address] + [address] [place], [place] R Unavailable Unavailable Unavailable GERHARD, MARIE Unavailable [address] + [place] [address] LUIS MCCULLOUGH Unavailable [address] + [address] [place], [place] R Unavailable Unavailable Unavailable GERHARD, MARIE Unavailable [address] + [place] [address] JAMEL LUIS Unavailable [address] + [address] [place], [place] R Unavailable Unavailable Unavailable GERHARD, MARIE Unavailable [address] + [place] [address] JAMEL LUIS Unavailable [address] + [address] [place], [place] R Unavailable Unavailable Unavailable GERHARD, MARIE Unavailable [address] + [place] [address] JAMEL LUIS Unavailable [address] + [address] [place], [place] R Unavailable Unavailable Unavailable JAMEL SMITH Unavailable [address] + [address] [place] LESLIE Unavailable [address] + [place] [address] R Unavailable Unavailable Unavailable LUIS, JAMEL Unavailable [address] + [address] [place] LESL[place] Unavailable [address] + [place] [address] R Unavailable Unavailable Unavailable LUIS, JAMEL Unavailable [address] + [address] [place] L[place] Unavailable [address] + [place] [address] R Unavailable Unavailable Unavailable LUIS, JAMEL Unavailable [address] + [address] [place] L[place] Unavailable [address] + [place] [address] R Unavailable Unavailable Unavailable LUIS, JAMEL Unavailable [address] + [address] [place] Unavailable [address] + [place] [address] R Unavailable Unavailable Unavailable LUIS, JAMEL Unavailable [address] + [address] [place] L[place] Unavailable [address] + [place] [address] R Unavailable Unavailable Unavailable MARIE HENNESSY Unavailable [address] + [place] [address] LUIS MCCULLOUGH Unavailable [address] + [address] [place] Unavailable Unavailable Unavailable LUIS, JAMEL Unavailable [address] + [address] [place] L[place] Unavailable [address] + [place] [address] R Unavailable Unavailable Unavailable LUIS, JAMEL Unavailable [address] + [address] [place] L[place] Unavailable [address] + [place] [address] R Unavailable Unavailable Unavailable Jamel, Damion Unavailable Unavailable + Luis, Jamel Unavailable [address] + [address] [place] LESLIE Unavailable [address] + [place] [address] R Unavailable Unavailable Unavailable Jamel Smith Unavailable [address] + [address] [place] Unavailable [address] + [place] [address] R Unavailable Unavailable Unavailable Care Team Providers Name Role Phone ADELA ETIENNE Attending Unavailable ADELA ETIENNE Primary Care Unavailable ADELA ETIENNE Attending Unavailable ADELA ETIENNE Primary Care Unavailable CANDY RIVAS Attending Unavailable MARY KAYM, CANDY Referring Unavailable [...] Consulting Unavailable Ashelfah, Ghasem Admitting Unavailable Farhad, Manosor Attending Unavailable ADELA ETIENNE Primary Care Unavailable [...] Attending Unavailable Jordan, Alejo Chi Referring Unavailable Jared Romero Primary Care Unavailable Jared Romero Primary Care Unavailable Cali Bucio Attending Unavailable Jared Romero Primary Care Unavailable Ronn Marrero Attending Unavailable Jared Romero Primary Care Unavailable Paintsil, [place] Attending Unavailable Jordan, Alejo Chi Admitting Unavailable Jordan, Alejo Chi Attending Unavailable Jared Romero Primary Care Unavailable Akira Cruz [employer] Consulting Unavailable SchJared valdez Attending Unavailable SchinJared tamayo E Referring Unavailable SchinnerJared E Primary Care Unavailable SchinJared tamayo E Attending Unavailable SchinJared tamayo E Referring Unavailable Schinner, Jared E Primary Care Unavailable Garrett Jordan Attending Unavailable SchinJared tamayo E Primary Care Unavailable Nathalie Early Attending Unavailable SchinJared tamayo E Primary Care Unavailable Garrett Jordan Attending Unavailable SchinJared tamayo E Primary Care Unavailable Julieth Garcia Attending Unavailable Schinroni, Jared E Primary Care Unavailable SchinJared tamayo Attending Unavailable SchinJared tamayo E Primary Care Unavailable SchJared valdez Attending Unavailable SchinJared tamayo E Primary Care Unavailable SchJared valdez E Attending Unavailable Schinroni, Jared E Primary Care Unavailable SchJared valdez E Attending Unavailable SchJared valdez E Referring Unavailable SchinJared tamayo E Primary Care Unavailable Brianna Sidhu Attending Unavailable Obey Webb Attending Unavailable Jared Romero Referring Unavailable Schinroni, Jared E Primary Care Unavailable Akira Adams Admitting Unavailable Mansoor Llamas Attending Unavailable Akira Adams Admitting Unavailable SchJared valdez E Primary Care Unavailable Akira Adams Consulting Unavailable Akira Adams Attending Unavailable Akira Adams Admitting Unavailable Schcourtney, Jared E Primary Care Unavailable Mansoor Llamas Consulting Unavailable Mansoor Llamas Attending Unavailable Jared Romero Attending Unavailable Jared Romero Primary Care Unavailable Jared Romero Attending Unavailable Jared Romero Primary Care Unavailable SchJared valdez Primary Care Unavailable Meme Echevarria Attending Unavailable Moody, Jackson Attending Unavailable Akira Adams Referring Unavailable Brianna Sidhu Attending Unavailable Moody, Jackson Attending Unavailable Jared Romero E Referring Unavailable Obey Webb Attending Unavailable Jared Romero Referring Unavailable Moody, Jackson Attending Unavailable Moody, [place] Referring Unavailable SchinJared tamayo E Primary Care Unavailable Moody, Jackson Attending Unavailable Moody, Jackson Referring Unavailable SchJared valdez E Primary Care Unavailable Moody, Jackson Consulting Unavailable Jared Romero E Attending Unavailable Jared Romero E Referring Unavailable SchJared valdez E Primary Care Unavailable Sharath, Jayaprakash Attending Unavailable Jared Romero E Primary Care Unavailable SchJared valdez E Attending Unavailable Schinroni, Jared E Primary Care Unavailable Sharath, Jayaprakash [...] Jayaprakash Attending Unavailable Sharath, Jayaprakash Referring Unavailable Schinroni, Jared E Primary Care Unavailable ELEUTERIO BRAY Attending Unavailable KENDRICK MARK Attending Unavailable ARCHINAL, RIKA Referring Unavailable KRISTINE ANTUNEZ Consulting Unavailable BALJINDER REYNA Attending Unavailable MANOHAR GALAN A Admitting Unavailable ERIKA MCKEON Attending Unavailable JJ HOWELL Consulting Unavailable TIMOTHY RUSH Referring Unavailable TIMOTHY RUSH Admitting Unavailable TIMOTHY RUSH Attending Unavailable LORY GARCES Referring Unavailable TIMOTHY RUSH Admitting Unavailable TIMOTHY RUSH Attending Unavailable TIMOTHY RUSH Admitting Unavailable TIMOTHY RUSH Attending Unavailable TIMOTHY RUSH Admitting Unavailable TIMOTHY RUSH Attending Unavailable RANDI KOLB Admitting Unavailable RANDI KOLB Attending Unavailable Candy Rivas Attending Unavailable PROVIDER, UNKNOWN Referring Unavailable ARCHINAL, RIKA WOLFGANG Primary Care Unavailable ANTIONE IRIZARRY Attending Unavailable ANTIONE IRIZARRY Referring Unavailable KNEDRICK MARK Attending Unavailable ARCHINAL, KHRIS Referring Unavailable ARCHINAL, KHRIS Primary Care Unavailable KENDRICK MARK Attending Unavailable ARCHINAL, KHRIS Referring Unavailable ARCHINAL, KHRIS Primary Care Unavailable ARCHINAL, KHRIS Primary Care Unavailable KRISTINE ANTUNEZ Consulting Unavailable BALJINDER REYNA S Attending Unavailable BALJINDER REYNA S Admitting Unavailable ADAMA MANOHAR A Admitting Unavailable ERIKA MCKEON Attending Unavailable ARCHINAL, KHRIS Primary Care Unavailable DAR SORENSEN Consulting Unavailable DUMFORD III, ZHANE Consulting Unavailable ANTIONE IRIZARRY Consulting Unavailable JJ HOWELL Consulting Unavailable TIMOTHY RUSH Referring Unavailable ARCHINAL, KHRIS Primary Care Unavailable LORY GARCES Referring Unavailable ARCHINAL, KHRIS Primary Care Unavailable VICTOR MANUEL, TIMOTHY R Admitting Unavailable VICTOR MANUEL, TIMOTHY R Attending Unavailable ARCHINAL, KHRIS Primary Care Unavailable VICTOR MANUEL, TIMOTHY R Admitting Unavailable VICTOR MANUEL, TIMOTHY R Attending Unavailable ARCHINAL, KHRIS Primary Care Unavailable VICTOR MANUEL, TIMOTHY R Admitting Unavailable VICTOR MANUEL, TIMOTHY R Attending Unavailable ARCHINAL, KHRIS Primary Care Unavailable ANTIONE IRIZARRY Attending Unavailable ANTIONE IRIZARRY Referring Unavailable ARCHINAL, KHRIS Primary Care Unavailable VICTOR MANUEL, TIMOTHY R Admitting Unavailable VICTOR MANUEL, TIMOTHY R Attending Unavailable ARCHINAL, KHRIS Primary Care [...] WEI Consulting Unavailable GOLD LARSEN Consulting Unavailable JARED WESLEY Consulting Unavailable ANTIONE IRIZARRY Consulting Unavailable PROBLEMS PROBLEMS DATE TYPE CONDITION / CODE ATTENDING STATUS SOURCE Active Other specified RANDI KOLB [place] 9 disorders of [facility] Other / K66.8(ICD-10) [place] Repository Admitting Unknown / UNK(Unknown) Magda KOLB Active [facility] 9 diagnosis [facility] Repository Unknown 280.9 - Iron deficiency Jared Romero anemia, unspecified / E Community 280.9(ICD-9) Hospital Repository Unknown E61.1 - Iron deficiency Jared Romero / E61.1(ICD-10) E [facility] Repository Unknown 008.45 - Intestinal Jared Romero infection due to E Community Clostridium difficile / Hospital 008.45(ICD-9) Repository Unknown A04.72 - Enterocolitis Jared Romero due to Clostridium E Community difficile, not specified Hospital as recurrent / Repository A04.72(ICD-10) Unknown R00.0 - Tachycardia, MoodyMichael talbotril Active [place] [facility] unspecified / Community R00.0(ICD-10) Hospital Repository Unknown R94.31 - Abnormal Moody, [place] Active [place] [facility] electrocardiogram [ECG] Community [EKG] / R94.31(ICD-10) Hospital Repository Unknown 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, [place]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 / Repository I25.10(ICD-10) Unknown W01.0XXA - Fall on same Jared Romero Active [place] 8 level from [facility], [facility] without subsequent Repository striking against object, initial encounter / W01.0XXA(ICD-10) Unknown I26.99 - Other pulmonary Moody, [place] Active [place] 8 embolism without acute Community cor pulmonale / Hospital I26.99(ICD-10) Repository Unknown E78.00 - Pure Moody, [place] Active [place] 8 hypercholesterolemia, Community unspecified / Hospital E78.00(ICD-10) Repository Unknown E78.0 - Pure Moody, [place] Active [facility] hypercholesterolemia / Community E78.0(ICD-10) Hospital Repository Active Abscess of intestine / TIMOTHY RUSH Active [facility] K63.0(ICD-10) Clinic Other [place] Repository Unknown E55.9 - Vitamin D Sharath, Active [place] 8 deficiency, unspecified [facility] / E55.9(ICD-10) Hospital Repository Unknown D64.9 - Anemia, Sharath, Active [place] [facility] unspecified / [facility] D64.9(ICD-10) Hospital Repository Unknown N18.3 - Chronic kidney Sharath, Active [place] [facility] disease, stage 3 [facility] (moderate) / Hospital N18.3(ICD-10) Repository Unknown M79.81 - Nontraumatic Jared Romero Active [place] 8 hematoma of soft tissue E [facility] / M79.81(ICD-10) Hospital Repository Active Female pelvic TIMOTHY RUSH Active [facility] inflammatory disease, Clinic Other unspecified / [place] N73.9(ICD-10) Repository Active Contusion of left lower ERIKA MCKEON Active [facility] leg, initial encounter / Clinic Other S80.12XA(ICD-10) [place] Repository Active Peritoneal abscess / ERIKA MCKEON Active [facility] K65.1(ICD-10) Clinic Other [place] Repository Active Acute embolism and ERIKA MCKEON Active [place] [facility] thrombosis of Clinic Other unspecified deep veins [place] of unspecified lower Repository extremity / I82.409(ICD-10) Active Other pulmonary embolism ERIKA MCKEON Active [facility] 8 without acute cor Clinic Other pulmonale / [place] I26.99(ICD-10) Repository Unknown S80.12XA - Contusion of Jwayyed, Active [place] 8 left lower leg, initial [facility] encounter / Hospital S80.12XA(ICD-10) Repository Unknown M62.81 - Muscle weakness Jordan, Alejo Chi Active [place] 8 (generalized) / Community M62.81(ICD-10) Hospital Repository Unknown R53.81 - Other malaise / Jordan, Alejo Chi Active [place] 8 R53.81(ICD-10) [facility] Repository Unknown I82.4Z2 - Acute embolism FarhadTolush Active [place] 8 and thrombosis of Community unspecified deep veins Hospital of left distal lower Repository extremity / I82.4Z2(ICD-10) Active Perforation of intestine KRISTINE NOARRON Active [facility] (nontraumatic) / Clinic Other K63.1(ICD-10) [place] Repository Active Unknown / UNK(Unknown) KENDRICK MARK Active [place] 8 [facility] Other [place] Repository Unknown Z79.01 - half-way ADELA ETIENNE Active [place] [facility] (current) use of Community anticoagulants / Hospital Z79.01(ICD-10) Repository PROCEDURES PROCEDURES No Procedure Records FoundRESULTS RESULTS CHEST 1 VIEW Observed: 06/11/2018 Status: F Source: [facility] 1:19 PM HEALTH SYSTEM REPOSITORY Performed at [facility] APPROVED BY: Haider Mendez MD EXAM TITLE: CHEST 1 VIEW DATE: 06/11/2018 13:15 INDICATION: Aspiration. COMPARISON: None. Portable frontal view of the chest shows heart size to be normal. Thoracic aorta is tortuous. Lungs are grossly clear. No obvious infiltrate or effusion at this time. IMPRESSION: No acute findings radiographically. Recommend follow-up as clinically indicated. PROGRESS Observed: 06/11/2018 Status: COMPLETED Source: [place] 12:51 PM [facility] REPOSITORY HNO ID: [id number] Author: Lyndsay Mcintosh Service: General Surgery Author Type: Nurse Practitioner Type: Progress Notes Filed: 06/11/2018 12:52 PM Note Text: Nursing called to state Ms. Mccullough was eating some pasta with lunch and started chocking, with subsequent audible moist lung sounds. Pt assessed and is currently stable, no SOB. Audible moist respirations note. Pulse ox stable on RA. Will check PCXR. Lyndsay Mcintosh APRN.CNP Emergency General Surgery 12:52 PM 06/11/2018 NURSING PROG Observed: 06/11/2018 Status: COMPLETED Source: [place] 12:48 PM [facility] REPOSITORY HNO ID: [id number] Author: Leslie Allen) GAURANG Mortensen Service: Nursing Author Type: Registered Nurse Type: Nursing Progress Note Filed: 06/11/2018 1:03 PM Note Text: Called in room by patient because she was choking on spaghetti and jello. Pt's bed placed up high, pulse ox and pulse taken. Pulse ox was 92 on RA dipping to 90 on RA, heart rate 98. Pt's lungs sounds are audible without a stethoscope: course and moist. Khai Mcintosh notified and came to see patient. New orders to be placed. Will cont to monitor. Pt is stable. NURSING PROG Observed: 06/11/2018 Status: COMPLETED Source: [place] 11:25 AM [facility] REPOSITORY HNO ID: [id number] Author: Leslie SargentRn) Balbina, GAURANG Service: Nursing Author Type: Registered Nurse Type: Nursing Progress Note Filed: 06/11/2018 11:27 AM Note Text: Pt is refusing ampillican sulbactrum IV antibiocs d/t c/o of diarrhea with 6 am dose. Khai Kaczur [employer] notified. She was already aware as the patient told her this morning that she did not want to cont receiving this med. No other complaints at this time. Will cont to monitor. PROGRESS Observed: 06/11/2018 Status: COMPLETED Source: [place] 9:02 AM CLINIC OTHER CAMPUS REPOSITORY HNO ID: [id number] Author: Lyndsay Gimenez Donnellfidel Service: General Surgery Author Type: Nurse Practitioner Type: Progress Notes Filed: 06/11/2018 9:18 AM Note Text: EGS Surgery Progress Note SERVICE DATE: 06/11/2018 Service time: 0650 SUBJECTIVE: Tolerating a GI soft diet without N/V. Admits to feeling weak, wants to get to skilled facility to gain strength. Believes that Ampicillin aka Unasyn pt is currently on is causing immediate diarrhea. Pt states she is tolerating IV Cipro and oral Vancomycin without issues. States in past has been prescribed Cefazolin and tolerated well. She is wondering if she can be switched to Cefazolin as opposed to Unasyn. 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 Tolerating diet DIET GASTRO INTESTINAL Nausea No Emesis No Flatus Yes Bowel movement Yes Pain Controlled Yes Ambulating Yes OBJECTIVE: Vitals: Temp (24hrs), Av ?C (98.6 ?F), Min:36.6 ?C (97.9 ?F), Max:37.5 ?C (99.5 ?F) BP 141/83 Pulse 88 Temp 36.8 ?C (98.2 ?F) (Oral) Resp 18 Ht 152.4 cm (5') Wt 72.2 kg (159 lb 2.8 oz) SpO2 98% BMI 31.09 kg/m? O2 Therapy: Room Air IANDO: Date 06/10/18699 - 06/11/18 0659 06/11/18699 - 06/12/18 0659 Shift 8392-3228 7802-2204 4364-4995 24 Hour Total 2535-7594 7878-0559 6525-2636 24 Hour Total I N T A K E PO 358 240 598 PO 358 240 598 IV 200 200 400 Cipro IV 200 200 Ampicillin/Sulbactam (Unasyn) IV 200 200 Shift Total 558 440 998 O U T P U T Urine 250 150 150 550 Void (ml) 250 150 150 550 Urine Not Saved. 1 x 1 x 2 x # of BMs Stool Incontinence 1 x 1 x 2 x Number of BMs 1 x 2 x 2 x 5 x Shift Total 250 150 150 550 Weight (kg) 72.2 72.2 72.2 72.2 72.2 72.2 72.2 72.2 MEDICATIONS Current Facility-Administered Medications: lidocaine 10 mg/mL (1 %) 10-20 mg injection (XYLOCAINE) 1- 2 mL INTRADERMAL ONCE NaCl 0.9% 10 mL 10 mL INTRAVENOUS q 12 H NaCl 0.9% 20 mL 20 mL INTRAVENOUS PRN ampicillin-sulbactam 3 g in NaCl 0.9% 100 mL MB+/ADD-[place] (UNASYN) 3 g INTRAVENOUS q 6 H ciprofloxacin 400 mg in D5W 200 mL (CIPRO) 400 mg INTRAVENOUS q 12 H predniSONE 20 mg tab(s) (DELTASONE) 20 mg ORAL DAILY (8 AM) predniSONE 10 mg tab(s) (DELTASONE) 10 mg ORAL DAILY wDINNER NaCl 0.9% 10 mL 10 mL INTRAVENOUS q 12 H NaCl 0.9% 20 mL 20 mL INTRAVENOUS PRN iv contrast (radiology procedure) INTRAVENOUS DIRECTED PRN miconazole 2 % (MONISTAT-DERM,DORA) TOPICAL BID HYDROcodone 5 mg - acetaminophen 325 mg tablet (NORCO) 1 tablet ORAL q 6 H PRN cloNIDine HCl 0.2 mg tab(s) (CATAPRES) 0.2 mg ORAL q 8 H metoprolol tartrate (short acting) 25 mg tab(s) (LOPRESSOR) 25 mg ORAL q 12 H ondansetron (PF) 4 mg injection (ZOFRAN) 4 mg INTRAVENOUS q [address] 40 mg tab(s) (PROTONIX) 40 mg ORAL DAILY (6 AM) morphine 2 mg injection 2 mg INTRAVENOUS q 3 H PRN vancomycin 125 mg oral liquid (VANCOCIN) 125 mg ORAL BID benzocaine-menthol 1 Lozenge (CEPACOL) 1 Lozenge MUCOUS MEMBRANE (TOPICAL MOUTH AND THROAT) q 2 H PRN melatonin 3 mg tab(s) 3 mg ORAL DAILY (8 PM) Labs: Recent Labs 06/11/18 0000 06/10/18 0541 NA 144 143 K 4.1 3.7 CHLOR 113* 113* CO2 24 21 BUN 10 13 CREAT 1.14* 1.15* GLUC 148* 100* ANION 11 13 CA 7.4* 7.6* WBC 10.35* 13.73* HB 8.0* 8.5* HCT 26.8* 28.5* PLT 226 287 Exam: GENERAL: No distress, Alert NEURO: AANDOx3, CN II-XII grossly intact HEENT: normocephalic, atraumatic LUNGS: Unlabored breathing on room air CARDIAC: Regular rate and rhythm as above ABDOMEN: Soft, non-tender, mildly distended EXTREMITIES: MONGE, No deformities, mild edema BLE SKIN: Skin color, texture, turgor normal, No rashes or lesions, multiple bruises BUE and LE ASSESSMENT AND PLAN: Active Hospital Problems Diagnosis Date Noted - Diarrhea 06/05/2018 - Malnutrition of mild degree (HCC) 06/05/2018 77 year old female diarrhea, found to have diverticulosis, pericolonic/retroperitoneal free air, improving ASHUTOSH - GI soft diet - ASHUTOSH continues to improve: 1.14<-1.15<-1.19 <- 1.20 <- 1.41. Patient has baseline CKD 3 - c diff negative but on prophylactic oral vanc per ID - Converted to oral antibiotics on 06/09/2018 however WBC increased on 06/10/2018. Spoke with Dr. Wei who recommends back to IV antibiotics and trend clinically - Cipro/ Unasyn IV. Oral Vancomycin for C-diff ppx per ID recommendations. - PICC for IV antibiotics at skilled facility. - Will need recommendations from ID on duration of IV antiobiotics, if/when to transition to oral antibiotics. - VTE ppx: IPCs, encourage ambulation. Heparin gtt stopped due to BRBPR . Hgb remains stable 8.0<-8.5<-7.7 <- 7.7 <-8.0 - IR states abscess (sacrum) not amendable to drain nor aspiration due to size and location. - Dispo planning: Bed available [facility]. Anticipate discharge to SNF 06/12/2018 after PICC line placement.. Discussion regarding OAC and need for lifelong therapy had in length. Ms. Mccullough voiced an understanding and adamantly refuses further therapy at this time. Ms. Mccullough expressed the desire for therapy to regain strength and endurance in order to undergo a surgery at a latter time. SIGNATURE: Lyndsay Mcintosh APRN.CNP PATIENT NAME: Dia Mccullough DATE: June 11, 2018 TIME: 9:02 AM Pager: see below Emergency General Surgery Service Pager: For questions or concerns Mon-Tue 6a-5p please page [phone]. After 5pm and on Weekends and Holidays, please page [phone] if in ICU or [phone] if on RNF. MDRD GFR Collected: 06/11/2018 Status: F Source: [facility] 12:00 AM HEALTH SYSTEM REPOSITORY TYPE CODE TESTS RESULT OUT OF RANGE REFERENCE UNITS LAB GFRFN(LOINC >60mL/min/1.73m ) 2 eGFR 45.99 Result Comment: If the patient is , multiply the result by 1.210. Performed By: #### GFR #### [place] [id number] HEMOGRAM/DIFF Collected: 06/11/2018 Status: F Source: [facility] 12:00 [employer] [facility] REPOSITORY TYPE CODE TESTS RESULT OUT OF REFERENCE UNITS RANGE LAB WBC(LOINC) 3.98-10.04 thou/cmm WBC High 10.35 LAB RBC(LOINC) 3.93-5.22 mil/cmm Low RBC 2.57 LAB HGB(LOINC) 11.2-15.7 g/dL Low Hgb 8.0 LAB HCT(LOINC) 34.1-44.9 % Low Hct 26.8 LAB MCV(LOINC) 79.4-94.8 fl MCV High 104.3 LAB MCH(LOINC) 25.6-32.2 pg MCH 31.1 LAB MCHC(LOINC 31.6-34.8 % ) Low MCHC 29.9 LAB RDW(LOINC) 11.7-14.4 % RDW High 21.2 LAB RDWSD(LOIN 36.4-46.3 fl C) RDW SD High 80.4 LAB PLT(LOINC) 182-369 thou/cmm Platelet 226 LAB MPV(LOINC) 9.4-12.3 fl MPV 9.8 LAB NRBCR(LOIN 0.0-0.2 % C) High Nucleated RBC % 0.5 LAB NRBCA(LOIN 0.00-0.01 thou/cmm C) High Nucleated RBC 0.05 Absolute LAB SEG(LOINC) % Seg Neutrophil 90.1 LAB IGRE(LOINC % ) Immature Grans 2.60 LAB LYMPH(LOIN % C) Lymphocyte 4.5 LAB MNO(LOINC) % Monocyte 2.7 LAB EOSIN(LOIN % C) Eosinophil 0.0 LAB BASO(LOINC % ) Basophil 0.1 LAB SEGN(LOINC 1.56-6.13 thou/cmm ) Abs. High Neut (ANC) 9.33 LAB IGAB(LOINC 0.00-0.05 thou/cmm ) Abs High Immature Grans 0.27 LAB LYMN(LOINC 1.18-3.74 thou/cmm ) Low Abs. Lymph 0.47 LAB MONON(LOIN 0.27-0.70 thou/cmm C) Abs. [place] 0.28 LAB EOSN(LOINC 0.00-0.31 thou/cmm ) Abs. Eosin 0.00 LAB BASON(LOIN 0.01-0.08 thou/cmm C) Abs. Baso 0.01 Performed By: #### CBCD1 #### [place] [id number] BASIC PANEL Collected: 06/11/2018 Status: F Source: [facility] 12:00 AM HEALTH SYSTEM REPOSITORY TYPE CODE TESTS RESULT OUT OF REFERENCE UNITS RANGE LAB NA(LOINC) 136-145 mEq/L Sodium Blood 144 LAB K(LOINC) 3.5-5.1 mEq/L Potassium Blood 4.1 LAB CL(LOINC) 98-107 mEq/L Chloride High Blood 113 LAB CO2(LOINC) 21-32 mEq/L CO2 Blood 24 LAB GLU(LOINC) 70-99 mg/dL Glucose High Blood 148 LAB BUN(LOINC) 7-18 mg/dL BUN Blood 10 LAB CREA(LOINC 0.51-0.95 mg/dL ) High Creatinine Blood 1.14 LAB CA(LOINC) 8.5-10.1 mg/dL Low Calcium Blood 7.4 LAB ANGAP(LOIN 8-16 C) Anion Gap 11 Performed By: #### P8 #### [place] [id number] CONSULT PROG Observed: 06/10/2018 Status: COMPLETED Source: [place] 6:17 PM [facility] REPOSITORY HNO ID: [id number] Author: Misael Wei Service: Infectious Disease Author Type: Physician Type: Consult Progress Note Filed: 06/10/2018 6:23 PM Note Text: 06/10/2018 6:17 PM Infectious Disease Pt feels persistent weakness. Still some abdominal discomfort. Small volume liquid stool, less blood reported. BP 127/80 Pulse 94 Temp 36.9 ?C (98.4 ?F) (Axillary) Resp 18 Ht 152.4 cm (5') Wt 72.2 kg (159 lb 2.8 oz) SpO2 98% BMI 31.09 kg/m? Abd mildly distended, pressure sensation. Recent Labs 06/10/18 0541 06/09/18 0412 06/08/18 1225 06/08/18 0406 WBC 13.73* 8.90 -- 6.24 HB 8.5* 7.7* 7.7* 8.0* HCT 28.5* 25.7* -- 26.6* PLT 287 217 -- 181* NEUTNUM 11.38* 7.72* -- 5.28 CREAT 1.15* 1.19* -- 1.20* Imp: Presumed rectal perforation vs perforated sigmoid diverticulitis. History of perforated diverticulitis. Rise in WBC ct after change to po atbs concerning for persistent infection not responsive to po therapy History of C diff Rec: IV unasyn and cipro resumed this am after discussion with Surgery [employer]. Given full dose with additional improvement in creat. Follow response. Misael Wei MD PROGRESS Observed: 06/10/2018 Status: COMPLETED Source: [place] 9:28 AM [facility] REPOSITORY HNO ID: [id number] Author: Lyndsay Mcintosh Service: General Surgery Author Type: Nurse Practitioner Type: Progress Notes Filed: 06/10/2018 9:49 AM Note Text: EGS Surgery Progress Note SERVICE DATE: 06/10/2018 Service time: 0640 SUBJECTIVE: Tolerating a GI soft diet without N/V. 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 States she had long period yesterday with no bowel movements. Denies abdominal pain, little tender. Admits to feeling weak, wants to get to skilled facility to gain strength. Tolerating diet DIET GASTRO INTESTINAL Nausea No Emesis No Flatus Yes Bowel movement Yes Pain Controlled Yes Ambulating Yes OBJECTIVE: Vitals: Temp (24hrs), Av.6 ?C (97.9 ?F), Min:36.4 ?C (97.5 ?F), Max:36.9 ?C (98.4 ?F) BP 143/65 Pulse 85 Temp 36.9 ?C (98.4 ?F) (Temporal Artery) Resp 17 Ht 152.4 cm (5') Wt 72.2 kg (159 lb 2.8 oz) SpO2 94% BMI 31.09 kg/m? O2 Therapy: Room Air IANDO: Date 06/09/18 07 - 06/10/18 0659 06/10/18 07 - 06/11/18 0659 Shift 6435-2117 4539-6308 3228-1982 24 Hour Total 2436-4078 0608-7672 3231-1915 24 Hour Total I N T A K E PO 120 120 240 PO 120 120 240 IV 774 120 894 NS 0.9% 674 120 794 Ampicillin/Sulbactam (Unasyn) IV 100 100 Shift Total 630 025 5834 O U T P U T Urine Urine Not Saved. 3 x 2 x 2 x 7 x # of BMs Stool Incontinence 1 x 1 x 2 x 4 x Number of BMs 1 x 1 x Shift Total Weight (kg) 72.2 72.2 72.2 72.2 72.2 72.2 72.2 72.2 MEDICATIONS Current Facility-Administered Medications: amoxicillin-clavulanic acid 875 mg tab(s) (AUGMENTIN) 875 mg ORAL q 12 H ciprofloxacin HCl 500 mg tab(s) (CIPRO) 500 mg ORAL q 12 H predniSONE 20 mg tab(s) (DELTASONE) 20 mg ORAL DAILY (8 AM) NaCl 0.9% 10 mL 10 mL INTRAVENOUS q 12 H NaCl 0.9% 20 mL 20 mL INTRAVENOUS PRN iv contrast (radiology procedure) INTRAVENOUS DIRECTED PRN miconazole 2 % (MONISTAT-DERM,DORA) TOPICAL BID HYDROcodone 5 mg - acetaminophen 325 mg tablet (NORCO) 1 tablet ORAL q 6 H PRN cloNIDine HCl 0.2 mg tab(s) (CATAPRES) 0.2 mg ORAL q 8 H metoprolol tartrate (short acting) 25 mg tab(s) (LOPRESSOR) 25 mg ORAL q 12 H ondansetron (PF) 4 mg injection (ZOFRAN) 4 mg INTRAVENOUS q [address] 40 mg tab(s) (PROTONIX) 40 mg ORAL DAILY (6 AM) morphine 2 mg injection 2 mg INTRAVENOUS q 3 H PRN vancomycin 125 mg oral liquid (VANCOCIN) 125 mg ORAL BID benzocaine-menthol 1 Lozenge (CEPACOL) 1 Lozenge MUCOUS MEMBRANE (TOPICAL MOUTH AND THROAT) q 2 H PRN melatonin 3 mg tab(s) 3 mg ORAL DAILY (8 PM) Labs: Recent Labs 06/10/18 0541 06/09/18 0412 NA 143 141 K 3.7 3.1* CHLOR 113* 112* CO2 21 20* BUN 13 13 CREAT 1.15* 1.19* GLUC 100* 101* ANION 13 12 CA 7.6* 7.5* WBC 13.73* 8.90 HB 8.5* 7.7* HCT 28.5* 25.7* PLT 287 217 Exam: GENERAL: No distress, Alert NEURO: AANDOx3, CN II-XII grossly intact HEENT: normocephalic, atraumatic LUNGS: Unlabored breathing on room air CARDIAC: Regular rate and rhythm as above ABDOMEN: Soft, non-tender, mildly distended EXTREMITIES: MONGE, No deformities, mild edema BLE SKIN: Skin color, texture, turgor normal, No rashes or lesions, multiple bruises BUE and LE ASSESSMENT AND PLAN: Active Hospital Problems Diagnosis Date Noted - Diarrhea 06/05/2018 - Malnutrition of mild degree (HCC) 06/05/2018 77 year old female diarrhea, found to have diverticulosis, pericolonic/retroperitoneal free air, improving ASHUTOSH - GI soft diet - ASHUTOSH continues to improve: 1.15<-1.19 <- 1.20 <- 1.41. Patient has baseline CKD 3 - cont serial abdominal exams - c diff negative but on prophylactic oral vanc per ID - Converted to oral antibiotics yesterday however WBC elevated today. Spoke with Dr. Wei who recommends back to IV antibiotics and trend clinically - VTE ppx: IPCs, encourage ambulation. Heparin gtt stopped due to BRBPR . Hgb remains stable 8.5<-7.7 <- 7.7 <-8.0 - IR states abscess (sacrum) not amendable to drain nor aspiration due to size and location. - Dispo planning: Bed available [facility]. Due to elevated WBC, will place back on IV antibiotics as recommended by ID. Discussion regarding OAC and need for lifelong therapy had in length. Ms. Mccullough voiced an understanding and adamantly refuses further therapy at this time. Ms. Mccullough expressed the desire for therapy to regain strength and endurance in order to undergo a surgery at a latter time. Assessment and plan will be discussed with attending: Dr. Cadena. Spoke with Dr. Wei in regards to elevated WBC today. Discussed conversion back to IV antibiotics and dosing. Oral Augmentin and Cipro discontinued, started IV Unasyn 3 gm q6 and Cipro 400mg BID given improvement in renal function. Will keep on oral Vancomycin for prophylactic use d/t recent C-diff. SIGNATURE: Lyndsay Mcintosh APRN.AMMY PATIENT NAME: Dia Mccullough DATE: June 10, 2018 TIME: 9:28 AM Pager: see below Emergency General Surgery Service Pager: For questions or concerns Mon-Fri 6a-5p please page [phone]. After 5pm and on Weekends and Holidays, please page [phone] if in ICU or [phone] if on RNF. HEMOGRAM/DIFF Collected: 06/10/2018 Status: F Source: [facility] 5:41 AM HEALTH SYSTEM REPOSITORY TYPE CODE TESTS RESULT OUT OF REFERENCE UNITS RANGE LAB WBC(LOINC) 3.98-10.04 thou/cmm WBC High 13.73 LAB RBC(LOINC) 3.93-5.22 mil/cmm Low RBC 2.70 LAB HGB(LOINC) 11.2-15.7 g/dL Low Hgb 8.5 LAB HCT(LOINC) 34.1-44.9 % Low Hct 28.5 LAB MCV(LOINC) 79.4-94.8 fl MCV High 105.6 LAB MCH(LOINC) 25.6-32.2 pg MCH 31.5 LAB MCHC(LOINC 31.6-34.8 % ) Low MCHC 29.8 LAB RDW(LOINC) 11.7-14.4 % RDW High 21.0 LAB RDWSD(LOIN 36.4-46.3 fl C) RDW SD High 78.7 LAB PLT(LOINC) 182-369 thou/cmm Platelet 287 LAB MPV(LOINC) 9.4-12.3 fl MPV 10.0 LAB NRBCR(LOIN 0.0-0.2 % C) High Nucleated RBC % 0.6 LAB NRBCA(LOIN 0.00-0.01 thou/cmm C) High Nucleated RBC 0.08 Absolute LAB SEG(LOINC) % Seg Neutrophil 82.9 LAB IGRE(LOINC % ) Immature Grans 4.80 LAB LYMPH(LOIN % C) Lymphocyte 8.7 LAB MNO(LOINC) % Monocyte 3.4 LAB EOSIN(LOIN % C) Eosinophil 0.1 LAB BASO(LOINC % ) Basophil 0.1 LAB SEGN(LOINC 1.56-6.13 thou/cmm ) Abs. High Neut (ANC) 11.38 LAB IGAB(LOINC 0.00-0.05 thou/cmm ) Abs High Immature Grans 0.66 LAB LYMN(LOINC 1.18-3.74 thou/cmm ) Abs. Lymph 1.19 LAB MONON(LOIN 0.27-0.70 thou/cmm C) Abs. [place] 0.47 LAB EOSN(LOINC 0.00-0.31 thou/cmm ) Abs. Eosin 0.01 LAB BASON(LOIN 0.01-0.08 thou/cmm C) Abs. Baso 0.01 Performed By: #### CBCD1 #### [place] [id number] BASIC PANEL Collected: 06/10/2018 Status: F Source: [facility] 5:41 AM HEALTH SYSTEM REPOSITORY TYPE CODE TESTS RESULT OUT OF REFERENCE UNITS RANGE LAB NA(LOINC) 136-145 mEq/L Sodium Blood 143 LAB K(LOINC) 3.5-5.1 mEq/L Potassium Blood 3.7 LAB CL(LOINC) 98-107 mEq/L Chloride High Blood 113 LAB CO2(LOINC) 21-32 mEq/L CO2 Blood 21 LAB GLU(LOINC) 70-99 mg/dL Glucose High Blood 100 LAB BUN(LOINC) 7-18 mg/dL BUN Blood 13 LAB CREA(LOINC 0.51-0.95 mg/dL ) High Creatinine Blood 1.15 LAB CA(LOINC) 8.5-10.1 mg/dL Low Calcium Blood 7.6 LAB ANGAP(LOIN 8-16 C) Anion Gap 13 Performed By: #### P8 #### [facility] [address] [place] [id number] ALLIED HEALTH Observed: 06/09/2018 Status: COMPLETED Source: [place] 8:33 PM [facility] REPOSITORY HNO ID: [id number] Author: Akira Merritt Service: (none) Author Type: (none) Type: Allied Health Filed: 06/09/2018 10:32 PM Note Text: SPIRITUALCARE Spiritual Care Visit- Brief Note Name: Dia Mccullough Date: June 09, 2018 Notes: Spiritual care offered, declined. Healthcare Specialist Signature: Akira Merritt To contact the Spiritual Care Department: Please call [phone] or Page the On-Call Healthcare Specialist at pager [phone] Thank you for the opportunity to be of service. This is an electronically created document. IF PRINTED, PLEASE DO NOT REMOVE FROM THE CHART OR MODIFY PRINTED COPY. CONSULT PROG Observed: 06/09/2018 Status: COMPLETED Source: [place] 5:16 PM [facility] REPOSITORY HNO ID: [id number] Author: Clarissa Reeves Service: Hospital Medicine Author Type: Physician Type: Consult Progress Note Filed: 06/09/2018 5:21 PM Note Text: DEPARTMENT OF HOSPITAL MEDICINE PROGRESS NOTE SERVICE DATE: 06/09/2018 SERVICE TIME: 5:16 PM Hospital Medicine/Primary Attending: Clarissa Reeves MD NIGHT AND WEEKEND COVERAGE: After 7pm, please call cross cover pager [phone] Subjective CC/Follow up for Medical management INTERVAL HPI: no acute events overnight pt reported feeling ok. Noted that rectal bleeding improved after stopping heparin Noted having abd pressure Pt denied any nausea, vomiting, chest pain or sob. MEDICATIONS: Reviewed Current hospital medications: potassium chloride ER 40 mEq tab(s) (K-DUR, KLOR-CON) 40 mEq ORAL BID amoxicillin-clavulanic acid 875 mg tab(s) (AUGMENTIN) 875 mg ORAL q 12 H ciprofloxacin HCl 500 mg tab(s) (CIPRO) 500 mg ORAL q 12 H predniSONE 2.5 mg tab(s) (DELTASONE) 2.5 mg ORAL DAILY wDINNER predniSONE 5 mg tab(s) (DELTASONE) 5 mg ORAL BID NaCl 0.9% 10 mL 10 mL INTRAVENOUS q 12 H NaCl 0.9% 20 mL 20 mL INTRAVENOUS PRN iv contrast (radiology procedure) INTRAVENOUS DIRECTED PRN miconazole 2 % (MONISTAT-DERM,DORA) TOPICAL BID HYDROcodone 5 mg - acetaminophen 325 mg tablet (NORCO) 1 tablet ORAL q 6 H PRN cloNIDine HCl 0.2 mg tab(s) (CATAPRES) 0.2 mg ORAL q 8 H metoprolol tartrate (short acting) 25 mg tab(s) (LOPRESSOR) 25 mg ORAL q 12 H ondansetron (PF) 4 mg injection (ZOFRAN) 4 mg INTRAVENOUS q [address] 40 mg tab(s) (PROTONIX) 40 mg ORAL DAILY (6 AM) NaCl 0.9% iv infusion 75 mL/hr INTRAVENOUS CONTINUOUS morphine 2 mg injection 2 mg INTRAVENOUS q 3 H PRN hydrocortisone sodium succinate (PF) 50 mg injection (Solu- CORTEF) 50 mg INTRAVENOUS q 8 H vancomycin 125 mg oral liquid (VANCOCIN) 125 mg ORAL BID benzocaine-menthol 1 Lozenge (CEPACOL) 1 Lozenge MUCOUS MEMBRANE (TOPICAL MOUTH AND THROAT) q 2 H PRN melatonin 3 mg tab(s) 3 mg ORAL DAILY (8 PM) Objective PHYSICAL EXAM: BP 149/91 Pulse 88 Temp (Src) 98.1 (Oral) Resp 20 Ht 5' 0 (1.52m) Wt 159 lb 2.8 oz (72.2kg) SpO2 100% BMI 31.09 kg/(m2). Gen: Alert, oriented, no distress, cooperative HENT: NCAT, Eyes: non-icteric sclera, Neck: supple CV: RRR, normal S1,S2, no murmur Resp: non-labored, CTBL GI: soft, ND, NT Neuro: ?no focal deficit Skin: warm, choric skin changes/pigmentations ?with edema ? Psych: appropriate mode and affect DATA: Diagnostic tests reviewed for today's visit: CBC, Coags, BMP, Mg, Phos Recent Labs 06/09/18 0412 06/08/18 1225 06/08/18 1020 06/08/18 0406 06/07/18200306/07/18 0440 WBC 8.90 -- -- 6.24 -- -- 7.43 HB 7.7* 7.7* -- 8.0* -- -- 8.7* HCT 25.7* -- -- 26.6* -- -- 29.9* PLT 217 -- -- 181* -- -- 198 APTT -- -- >139.0* see below see below < > -- NA 141 -- -- 143 -- -- 145 K 3.1* -- -- 3.6 -- -- 4.3 CHLOR 112* -- -- 113* -- -- 116* CO2 20* -- -- 22 -- -- 21 BUN 13 -- -- 16 -- -- 18 CREAT 1.19* -- -- 1.20* -- -- 1.41* GLUC 101* -- -- 124* -- -- 120* CA 7.5* -- -- 7.4* -- -- 7.7* < > = values in this interval not displayed. 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 CKD3- Cr stable /improved ? ? A-fib - seen by cardiology earlier, AC stopped by primary team and pt request due to rectal bleeding Hx of DVT - heme-onc consulted, AC held due to rectal bleeding HTN - cont meds -stable ? Retroperitoneal free air - per primary team/general surgery and ID ? ? VTE Prophylaxis:?per primary team ? ? Plan of care discussed with:?Patient and RN SIGNATURE: Clarissa Reeves MD PATIENT NAME: Dia Mccullough DATE: June 09, 2018 TIME: 5:16 PM PAGER/CONTACT #: NURSING PROG Observed: 06/09/2018 Status: COMPLETED Source: [place] 3:38 PM [facility] REPOSITORY HNO ID: [id number] Author: Valentín (Rn) GAURANG Lama Service: (none) Author Type: Registered Nurse Type: Nursing Progress Note Filed: 06/09/2018 3:39 PM Note Text: Nursing Progress Note Patient Name: Dia Mccullough Patient Location[place] [address] [address] Daily Note: Spoke to Susan Felipe NP regarding pt request for a second opinion by Dr. Rush, no new orders received. This note was completed by: Valentín Lama RN NUTRITION Observed: 06/09/2018 Status: COMPLETED Source: [place] 2:04 PM [facility] [place] REPOSITORY HNO ID: [id number] Author: Sally Phillips) ALVIN Qiu Service: Nutrition Therapy Author Type: Registered Dietitian Type: Nutrition Filed: 06/09/2018 2:16 PM Note Text: NUTRITION THERAPY PROGRESS NOTE SERVICE DATE: 06/09/2018 SERVICE TIME: 1150am RECOMMENDED DIAGNOSIS: MILD PROTEIN-CALORIE MALNUTRITION per Registered Dietitian on 06/05/18 In the context of Acute Illness or Injury based on: Insufficient Energy Intake: <75% for >7 days ? NUTRITION CARE PLAN Problem, Etiology and Signs/Symptoms: Suboptimal protein/energy intake related to GI symptoms as evidenced by patient report ? Intervention: 1. Follow closely with diet progression as pt is starving and wants to eat. 2. Continue with Ensure CL supplements 3. Follow for homegoing diet plans since surgery to be completed at a later time Coordination of Care: d/w RN Monitor and Evaluation: Goal: Meet >75% of estimated needs Discharge Nutrition Recommendations: To be determined Reason for consult: Follow up Per HPI: Per HPI: Ms. Mccullough is a 77 year old female with hx of [place]ch[place] disease, DVT/PE, CKD stage 3, asthma, hypertension, chronic peripheral venous insufficiency, left leg hematoma, an intra-abdominal abscess 2/2 sigmoid diverticulitis, and recent C diff colitis. ?In September 2017, she was admitted for treatment of the intraabdominal abscess, which included drainage and antibiotics. ?Today she came to the [facility] complaining of diarrhea for the past week. ?A CT there showed rectal perforation with pneumoperitoneum. ?She was transferred here for surgical evaluation. ?She was noted to be in atrial fib with RVR and was given Cardizem, which converted her to NSR. ?She denies fever, chills, chest pain, SOB, nausea, vomiting, or urinary symptoms. ?She did endorse pain in her left buttock. ?She was started on IV Zosyn, ?Cardiology was consulted for a fib, ID was consulted for abx recommendations with pt recently on Cipro, Vanco for C diff. ?Our medical hospitalist service has been consulted to assist with the management of this patient's steroids and her CKD. ? ACTIVE PROBLEM LIST Pure Hypercholesterolemia Contact Dermatitis [...] (Hcc) Pulmonary Emboli (Hcc) Pmr (Polymyalgia Rheumatica) (Hcc) Generalized Osteoarthritis Ckd (Chronic Kidney Disease) Stage 3, Gfr 30-59 Ml/Min (Hcc) Venous Insufficiency (Chronic) (Peripheral) Homocystinuria Perforated Bowel (Hcc) Leechburg disease Intra-Abdominal Abscess (Hcc) Traumatic Hematoma of Left Lower Leg Leg Hematoma, Left, Initial Encounter Pelvis, Female Abscess Diarrhea Malnutrition of Mild Degree (Hcc) Interval History: Abd distention better. Tolerating CL's, but recently with bloody BM's. Pain controlled. Surgery planned in the future once inflammation is improved. Needs rehab Current Diet Order DIET LIQUID Order Specific Question: Liquid Diet Answer: CLEAR LIQUID Supplement 1 Frequency: 1. BREAKFAST; 3. LUNCH Supplement 1: ENSURE CLEAR MIXED GANDHI There are no questions and answers to display. There are no questions and answers to display. Lines and Drains: Peripheral 06/07/18 1300 Short Right Forearm 20 Gauge (Active) Height: 152.4 cm (5') Admission Weight: 72.6 kg (160 lb) Current Weight: 72.2 kg (159 lb 2.8 oz) Body mass index is 31.09 kg/m?. class 1 obesity Recent Labs 06/09/18 0412 GLUC 101* BUN 13 CREAT 1.19* NA 141 K 3.1* CHLOR 112* CO2 20* HB 7.7* HCT 25.7* WBC 8.90 Current Facility-Administered Medications: potassium chloride ER 40 mEq tab(s) (K-DUR, KLOR-CON) 40 mEq ORAL BID NaCl 0.9% 10 mL 10 mL INTRAVENOUS q 12 H NaCl 0.9% 20 mL 20 mL INTRAVENOUS PRN iv contrast (radiology procedure) INTRAVENOUS DIRECTED PRN miconazole 2 % (MONISTAT-DERM,DORA) TOPICAL BID HYDROcodone 5 mg - acetaminophen 325 mg tablet (NORCO) 1 tablet ORAL q 6 H PRN cloNIDine HCl 0.2 mg tab(s) (CATAPRES) 0.2 mg ORAL q 8 H metoprolol tartrate (short acting) 25 mg tab(s) (LOPRESSOR) 25 mg ORAL q 12 H ondansetron (PF) 4 mg injection (ZOFRAN) 4 mg INTRAVENOUS q [address] 40 mg tab(s) (PROTONIX) 40 mg ORAL DAILY (6 AM) NaCl 0.9% iv infusion 75 mL/hr INTRAVENOUS [...] 3 g in NaCl 0.9% 100 mL MB+/ADD-[place] (UNASYN) 3 g INTRAVENOUS q 8 H benzocaine-menthol 1 Lozenge (CEPACOL) 1 Lozenge MUCOUS MEMBRANE (TOPICAL MOUTH AND THROAT) q 2 H PRN melatonin 3 mg tab(s) 3 mg ORAL DAILY (8 PM) Date 06/08/18 07 - 06/09/18 0659 06/09/18 07 - 06/10/18 0659 Shift 4950-3392 5152-2971 1708-7774 24 Hour Total 4739-5375 6876-7882 5327-0359 24 Hour Total I N T A K E PO 480 480 120 120 PO 480 480 120 120 IV 100 1138 793 2949 NS 0.9% 5341 024 9672 Ampicillin/Sulbactam (Unasyn) IV 100 100 100 300 Shift Total 580 4505 698 5258 120 120 O U T P U T Urine Urine Incontinence/Not Saved 2 x 2 x Urine Not Saved. 2 x 2 x 3 x 7 x # of BMs Stool Incontinence 1 x 1 x Number of BMs 2 x 3 x 5 x 1 x 1 x Shift Total Weight (kg) 72.2 72.2 72.2 72.2 72.2 72.2 72.2 72.2 MNT Billing Type: Re-assess/15 min 2 units SIGNATURE: Sally Qiu RD PATIENT NAME: Dia Mccullough DATE: June 09, 2018 TIME: 2:04 PM PAGER: [phone] CONSULT PROG Observed: 06/09/2018 Status: COMPLETED Source: [place] 1:52 PM [facility] OTHER [facility]AMP[facility] REPOSITORY HNO ID: [id number] Author: Misael Wei Service: Infectious Disease Author Type: Physician Type: Consult Progress Note Filed: 06/09/2018 2:23 PM Note Text: 06/09/2018 1:52 PM Infectious Disease Remains afebrile. Pt reports less abdominal pressure and less posterior left pelvic pain. Continued rectal bleeding, fluctuating frequency and volume. Surgical note questions possibility of changing to po atbs. BP 132/72 Pulse 83 Temp 36.7 ?C (98.1 ?F) (Oral) Resp 20 Ht 152.4 cm (5') Wt 72.2 kg (159 lb 2.8 oz) SpO2 97% BMI 31.09 kg/m? Abdomen soft, no tenderness, persistent sensation of pressure with palpation. Posterior left pelvic tenderness improved. Repeat abdominal ct report reviewed. Some of the gas collections are decreasing in size, other air/fluid and fluid collections are unchanged, and a collection within the right piriformis muscle is increasing in size. Recent Labs 06/09/18 0412 06/08/18 1225 06/08/18 0406 06/07/18 0440 WBC 8.90 -- 6.24 7.43 HB 7.7* 7.7* 8.0* 8.7* HCT 25.7* -- 26.6* 29.9* PLT 217 -- 181* 198 NEUTNUM 7.72* -- 5.28 6.45* CREAT 1.19* -- 1.20* 1.41* Imp: Presumed rectal perforation vs perforated sigmoid diverticulitis. I'm not convinced that the CT shows significant overall improvement. History of perforated diverticulitis. Diarrhea with bloody stools. Anemia CKD stage 3 History of C difficile. Rec: Can try changing to po augmentin and cipro. Creat improved, estimated GFR-43.7; estimated creat clearance 44. Dose augmentin 875 mg po q12h, dose ciprofloxacin 500 mg q12h. Duration will depend on resolution of abdominal/pelvic process, to be determined by follow up ct scans. Suggest repeat CT every 2 weeks until resolved. Continue preventative po vanco while on other atbs to decrease risk of recurrent C diff. Can modify dose to 125 mg q24h when transferred to F. D/W pt and Surgery Regulatory Affairs Analyst. Misael Wei MD PROGRESS Observed: 06/09/2018 Status: COMPLETED Source: [place] 9:29 AM CLINIC OTHER CAMPUS REPOSITORY HNO ID: [id number] Author: Allison Wyatt Service: General Surgery Author Type: Nurse Practitioner Type: Progress Notes Filed: 06/09/2018 3:43 PM Note Text: EGS Surgery Progress Note SERVICE DATE: 06/09/2018 Service time: 0650 SUBJECTIVE: Ms. Mccullough reports a decrease in the amount and frequency of BMs yesterday. States she continues to have blood but the color has lightened. Denies c/o SOB, CP, light headedness, palpitations. Just feels a bit weak. Tolerating diet DIET LIQUID Nausea No Emesis No Flatus Yes Bowel movement Yes Pain Controlled Yes Ambulating Yes OBJECTIVE: Vitals: Temp (24hrs), Av.6 ?C (97.9 ?F), Min:36.1 ?C (97 ?F), Max:36.9 ?C (98.4 ?F) BP 132/72 Pulse 83 Temp 36.7 ?C (98.1 ?F) (Oral) Resp 20 Ht 152.4 cm (5') Wt 72.2 kg (159 lb 2.8 oz) SpO2 97% BMI 31.09 kg/m? O2 Therapy: Room Air IANDO: Date 06/08/18 07 - 06/09/18 0659 06/09/18 07 - 06/10/18 0659 Shift 3942-1144 2773-6415 5694-7485 24 Hour Total 1266-3833 1685-7251 3170-4102 24 Hour Total I N T A K E PO 480 480 120 120 PO 480 480 120 120 IV 100 9587 879 4634 NS 0.9% 3524 096 1128 Ampicillin/Sulbactam (Unasyn) IV 100 100 100 300 Shift Total 580 4188 829 0685 120 120 O U T P U T Urine Urine Incontinence/Not Saved 2 x 2 x Urine Not Saved. 2 x 2 x 3 x 7 x # of BMs Number of BMs 2 x 3 x 5 x Shift Total Weight (kg) 72.2 72.2 72.2 72.2 72.2 72.2 72.2 72.2 MEDICATIONS Current Facility-Administered Medications: potassium chloride ER 40 mEq tab(s) (K-DUR, KLOR-CON) 40 mEq ORAL BID NaCl 0.9% 10 mL 10 mL INTRAVENOUS q 12 H NaCl 0.9% 20 mL 20 mL INTRAVENOUS PRN iv contrast (radiology procedure) INTRAVENOUS DIRECTED PRN miconazole 2 % (MONISTAT-DERM,DORA) TOPICAL BID HYDROcodone 5 mg - acetaminophen 325 mg tablet (NORCO) 1 tablet ORAL q 6 H PRN cloNIDine HCl 0.2 mg tab(s) (CATAPRES) 0.2 mg ORAL q 8 H metoprolol tartrate (short acting) 25 mg tab(s) (LOPRESSOR) 25 mg ORAL q 12 H ondansetron (PF) 4 mg injection (ZOFRAN) 4 mg INTRAVENOUS q [address] 40 mg tab(s) (PROTONIX) 40 mg ORAL DAILY (6 AM) NaCl 0.9% iv infusion 75 mL/hr INTRAVENOUS [...] 3 g in NaCl 0.9% 100 mL MB+/ADD-[place] (UNASYN) 3 g INTRAVENOUS q 8 H benzocaine-menthol 1 Lozenge (CEPACOL) 1 Lozenge MUCOUS MEMBRANE (TOPICAL MOUTH AND THROAT) q 2 H PRN melatonin 3 mg tab(s) 3 mg ORAL DAILY (8 PM) Labs: Recent Labs 06/09/18 0412 06/08/18 1225 06/08/18 0406 NA 141 -- 143 K 3.1* -- 3.6 CHLOR 112* -- 113* CO2 20* -- 22 BUN 13 -- 16 CREAT 1.19* -- 1.20* GLUC 101* -- 124* ANION 12 -- 12 CA 7.5* -- 7.4* WBC 8.90 -- 6.24 HB 7.7* 7.7* 8.0* HCT 25.7* -- 26.6* PLT 217 -- 181* Exam: GENERAL: No distress, Alert NEURO: AANDOx3, CN II-XII grossly intact HEENT: normocephalic, atraumatic LUNGS: Unlabored breathing on room air CARDIAC: Regular rate and rhythm as above ABDOMEN: Soft, non-tender, mildly distended EXTREMITIES: MONGE, No deformities, mild edema BLE SKIN: Skin color, texture, turgor normal, No rashes or lesions, multiple bruises BUE and LE ASSESSMENT AND PLAN: Active Hospital Problems Diagnosis Date Noted - Diarrhea 06/05/2018 - Malnutrition of mild degree (HCC) 06/05/2018 77 year old female diarrhea, found to have diverticulosis, pericolonic/retroperitoneal free air, improving ASHUTOSH - CLD - possibly advance today - ASHUTOSH continues to improve: 1.19 <- 1.20 <- 1.41. Patient has baseline CKD 3 - cont serial abdominal exams - c diff negative but on prophylactic oral vanc per ID - cont ABX per ID: ?transition to po augmentin and cipro - VTE ppx: IPCs, encourage ambulation. Heparin gtt stopped due to BRBPR yesterday. Hgb remains stable 7.7 <- 7.7 <-8.0 - Dispo planning: Bed available [facility] on Tuesday Lengthy discussion with Ms. Mccullough in regards to OAC and her need for lifelong therapy. We discussed risks including and benefits. She voiced an understanding and adamantly refuses further therapy at this time. Ms. Mccullough expressed the desire for therapy to regain strength and endurance in order to undergo a surgery at a latter time. Addendum 1540: Spoke with IR-state abscess (sacrum) not amendable to drain nor aspiration due to size and location. Assessment and plan discussed with attending: Dr. Cadena. Diet advanced to soft GI. Antibiotics transitioned to oral per ID. Possible discharge to SNF tomorrow if stable. SIGNATURE: Allison Wyatt APRN.DIRECTOR DIGITAL SALES PATIENT NAME: Dia Mccullough DATE: June 09, 2018 TIME: 9:42 AM Pager: see below Emergency General Surgery Service Pager: For questions or concerns Mon-Fri 6a-5p please page [phone]. After 5pm and on Weekends and Holidays, please page [phone] if in ICU or [phone] if on RNF. PROGRESS Observed: 06/09/2018 Status: COMPLETED Source: [place] 6:06 AM CLINIC OTHER CAMPUS REPOSITORY O ID: [id number] Author: Elizabeth Monge MS Service: (none) Author Type: (none) Type: Progress Notes Filed: 06/09/2018 6:22 AM Note Text: Attestation signed by Jovanna Mazariegos at 06/10/2018 5:53 PM Patient was seen by the JAYDE please refer to their note. Jovanna SurinderRubens, DO MEDICAL STUDENT PROGRESS NOTE SURGICAL SERVICES This note was generated by a MEDICAL STUDENT working under the supervision of a Physician. As applicable, the findings, conclusions, and assessment of risk have been confirmed by a qualified provider. The note is NOTconsidered authenticated until addended and co-signed by the Physician at the beginning of this note. Subjective CHIEF COMPLAINT: Abdominal pain, diarrhea INTERVAL HISTORY OF PRESENT ILLNESS: Patient doing well overall this AM. Last BM was around 0400, was reportedly less bloody and more solid. Left arm swollen and weeping yesterday, has since been elevated, improved, no weeping since last night around 9:30PM. Back pain improved this AM. Continues to tolerate liquid diet. Denies abdominal pain, n/v, fever, chills, shortness of breath, chest pain. Ambulation to and from the bathroom. Current hospital medications: NaCl 0.9% 10 mL 10 mL INTRAVENOUS q 12 H NaCl 0.9% 20 mL 20 mL INTRAVENOUS PRN iv contrast (radiology procedure) INTRAVENOUS DIRECTED PRN miconazole 2 % (MONISTAT-DERM,DORA) TOPICAL BID HYDROcodone 5 mg - acetaminophen 325 mg tablet (NORCO) 1 tablet ORAL q 6 H PRN cloNIDine HCl 0.2 mg tab(s) (CATAPRES) 0.2 mg ORAL q 8 H metoprolol tartrate (short acting) 25 mg tab(s) (LOPRESSOR) 25 mg ORAL q 12 H ondansetron (PF) 4 mg injection (ZOFRAN) 4 mg INTRAVENOUS q [address] 40 mg tab(s) (PROTONIX) 40 mg ORAL DAILY (6 AM) NaCl 0.9% iv infusion 75 mL/hr INTRAVENOUS [...] 3 g in NaCl 0.9% 100 mL MB+/ADD-[place] (UNASYN) 3 g INTRAVENOUS q 8 H benzocaine-menthol 1 Lozenge (CEPACOL) 1 Lozenge MUCOUS MEMBRANE (TOPICAL MOUTH AND THROAT) q 2 H PRN melatonin 3 mg tab(s) 3 mg ORAL DAILY (8 PM) Objective PHYSICAL EXAM: BP 128/58 Pulse 87 Temp 36.9 ?C (98.4 ?F) (Oral) Resp 18 Ht 152.4 cm (5') Wt 72.2 kg (159 lb 2.8 oz) SpO2 99% BMI 31.09 kg/m? Body mass index is 31.09 kg/m?. General: NAD, alert and oriented Neuro: CN II-XII grossly intact HEENT: Normocephalic, atraumatic Lungs: Clear to ascultation bilaterally, unlabored breathing Cardio: RRR Abdomen: Soft, non-tender, mildly distended but improved from yesterday, no rebound TTP appreciated; normoactive bowel sounds Extremities: No deformities Skin: Skin color, texture, turgor normal; no rashes or lesions; ecchymoses present Labs: Results for DIA MCCULLOUGH ( ) as of 06/09/2018 06:12 Ref. Range 06/08/2018 04:06 06/08/2018 09:09 06/08/2018 10:20 06/08/2018 12:25 06/09/2018 04:12 Sodium Latest Ref Range: 136 - 145 mEq/L 143 141 Potassium Latest Ref Range: 3.5 - 5.1 mEq/L 3.6 3.1 (L) Chloride Latest Ref Range: 98 - 107 mEq/L 113 (H) 112 (H) CO2 Latest Ref Range: 21 - 32 mEq/L 22 20 (L) BUN Latest Ref Range: 7 - 18 mg/dL 16 13 Creatinine Latest Ref Range: 0.51 - 0.95 mg/dL 1.20 (H) 1.19 (H) Glucose Latest Ref Range: 70 - 99 mg/dL 124 (H) 101 (H) Calcium Latest Ref Range: 8.5 - 10.1 mg/dL 7.4 (L) 7.5 (L) Anion Gap Latest Ref Range: 8 - 16 12 12 eGFR Latest Ref Range: >60mL/min/1.73m2 43.35 43.77 Hematocrit Latest Ref Range: 34.1 - 44.9 % 26.6 (L) 25.7 (L) WBC Latest Ref Range: 3.98 - 10.04 thou/cmm 6.24 8.90 RBC Latest Ref Range: 3.93 - 5.22 mil/cmm 2.55 (L) 2.48 (L) HGB Latest Ref Range: 11.2 - 15.7 g/dL 8.0 (L) 7.7 (L) 7.7 (L) Platelet Count Latest Ref Range: 182 - 369 thou/cmm 181 (L) 217 MCV Latest Ref Range: 79.4 - 94.8 fl 104.3 (H) 103.6 (H) MCH Latest Ref Range: 25.6 - 32.2 pg 31.4 31.0 MCHC Latest Ref Range: 31.6 - 34.8 % 30.1 (L) 30.0 (L) MPV Latest Ref Range: 9.4 - 12.3 fl 10.0 9.7 RDW-SD Latest Ref Range: 36.4 - 46.3 fl 76.5 (H) 77.3 (H) Seg Neutrophil Latest Units: % 84.6 86.7 Lymphocyte Latest Units: % 7.2 5.8 Monocyte Latest Units: % 3.7 3.4 Eosinophil Latest Units: % 0.0 0.0 Basophil Latest Units: % 0.2 0.1 Abs. Baso Latest Ref Range: 0.01 - 0.08 thou/cmm 0.01 0.01 Abs. Eosin Latest Ref Range: 0.00 - 0.31 thou/cmm 0.00 0.00 Immature Grans Latest Units: % 4.30 4.00 Immature Grans # Latest Ref Range: 0.00 - 0.05 thou/cmm 0.27 (H) 0.36 (H) Abs. Lymph Latest Ref Range: 1.18 - 3.74 thou/cmm 0.45 (L) 0.52 (L) Abs. [place] Latest Ref Range: 0.27 - 0.70 thou/cmm 0.23 (L) 0.30 Nucleated RBC % Latest Ref Range: 0.0 - 0.2 % 0.5 (H) 0.9 (H) Nucleated RBC Absolute Latest Ref Range: 0.00 - 0.01 thou/cmm 0.03 (H) 0.08 (H) RDW Latest Ref Range: 11.7 - 14.4 % 20.0 (H) 20.4 (H) Abs. Neut(Anc) Latest Ref Range: 1.56 - 6.13 thou/cmm 5.28 7.72 (H) APTT Latest Ref Range: 23.0 - 32.4 sec see below >139.0 (HH) CT ABD/PEL W IVCON Unknown Rpt Imaging: ABDOMEN AND PELVIS CT WITH IV CONTRAST MEDIA ? ? ? DATE: ?06/08/2018 09:03 IMPRESSION: ? 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 ?Again noted are fistulous tracts extending to the mid to distal sigmoid and rectosigmoid junction with associated focal fluid collection measuring up to 2.1 x 2.1 cm compatible with abscess. ?These findings appear to be essentially unchanged since CT examination dated 06/04/2018. ? Interval decrease in amount of pelvic/perirectal and left inguinal/thigh soft tissue gas, compared to previous examination dated 06/04/2018. ? Interval decrease in amount of gas associated with perirectal soft tissue infiltration, as described above. ? Increase in size and conspicuity of focal fluid collection within right piriformis ?muscle suspicious for abscess and measuring up to 3.0 x 2.0 cm. ? Severe compression deformity T12 vertebral body of indeterminate age, essentially unchanged in morphology since 06/04/2018 and new since 01/26/2018. ?If recent onset of acute back pain and concern for acute compression fracture, further evaluation with dedicated MRI examination of the thoracic spine without contrast is suggested. ?Please correlate clinically. ? 5 x 3 mm nonobstructive right renal calyceal stone, unchanged. Assessment and Plan: Ms. Dia Mccullough is a 77-year-old female with diarrhea, found to have diverticulosis, pericolonic/retroperitoneal free air, improving ASHUTOSH, hypoK 1. CT A/P yesterday to evaluate resolution of free air, some improvement noted; continue serial abdominal exams, continue CLD; remains on vanc/unasyn per ID, may change to PO augmentin and cipro today after CT results. 2. ASHUTOSH - continue trending Cr, has improved slightly to 1.19 today, down from 1.20 yesterday; continue IVFs 3. Heparin drip held via recommendation per heme/onc due to bleeding and low Hb; Hb remains at 7.7 this AM from 7.7 yesterday afternoon. Heme/onc will continue to follow. 4. High risk for VTE; encourage ambulation 5. K 3.1 today, down from 3.6 yesterday ? Elizabeth Monge, MS3 Student General Surgery PROGRESS Observed: 06/09/2018 Status: COMPLETED Source: [place] 5:09 AM CLINIC OTHER CAMPUS REPOSITORY HNO ID: [id number] Author: Veena Quintanilla Service: Hematology/Oncology Author Type: Physician Type: Progress Notes Filed: 06/09/2018 5:11 AM Note Text: Await Hb this morning. Agree with no anticoagulation at this time due to bleed. High risk for VTE though. Need to make sure trying to do all that we can to minimize risk - out of bed, SCDs, etc. ? Need surgery or embolization to stop bleeding. Will continue to follow. SIGNATURE: Veena Quintanilla MD PATIENT NAME: Dia Mccullough DATE: June 09, 2018 TIME: 5:11 AM PAGER/CONTACT #: [phone] HEMOGRAM/DIFF Collected: 06/09/2018 Status: F Source: [facility] 4:12 AM HEALTH SYSTEM REPOSITORY TYPE CODE TESTS RESULT OUT OF REFERENCE UNITS RANGE LAB WBC(LOINC) 3.98-10.04 thou/cmm WBC 8.90 LAB RBC(LOINC) 3.93-5.22 mil/cmm Low RBC 2.48 LAB HGB(LOINC) 11.2-15.7 g/dL Low Hgb 7.7 LAB HCT(LOINC) 34.1-44.9 % Low Hct 25.7 LAB MCV(LOINC) 79.4-94.8 fl MCV High 103.6 LAB MCH(LOINC) 25.6-32.2 pg MCH 31.0 LAB MCHC(LOINC 31.6-34.8 % ) Low MCHC 30.0 LAB RDW(LOINC) 11.7-14.4 % RDW High 20.4 LAB RDWSD(LOIN 36.4-46.3 fl C) RDW SD High 77.3 LAB PLT(LOINC) 182-369 thou/cmm Platelet 217 LAB MPV(LOINC) 9.4-12.3 fl MPV 9.7 LAB NRBCR(LOIN 0.0-0.2 % C) High Nucleated RBC % 0.9 LAB NRBCA(LOIN 0.00-0.01 thou/cmm C) High Nucleated RBC 0.08 Absolute LAB SEG(LOINC) % Seg Neutrophil 86.7 LAB IGRE(LOINC % ) Immature Grans 4.00 LAB LYMPH(LOIN % C) Lymphocyte 5.8 LAB MNO(LOINC) % Monocyte 3.4 LAB EOSIN(LOIN % C) Eosinophil 0.0 LAB BASO(LOINC % ) Basophil 0.1 LAB SEGN(LOINC 1.56-6.13 thou/cmm ) Abs. High Neut (ANC) 7.72 LAB IGAB(LOINC 0.00-0.05 thou/cmm ) Abs High Immature Grans 0.36 LAB LYMN(LOINC 1.18-3.74 thou/cmm ) Low Abs. Lymph 0.52 LAB MONON(LOIN 0.27-0.70 thou/cmm C) Abs. [place] 0.30 LAB EOSN(LOINC 0.00-0.31 thou/cmm ) Abs. Eosin 0.00 LAB BASON(LOIN 0.01-0.08 thou/cmm C) Abs. Baso 0.01 Performed By: #### CBCD1 #### [facility] [address] [address] BASIC PANEL Collected: 06/09/2018 Status: F Source: [facility] 4:12 AM HEALTH SYSTEM REPOSITORY TYPE CODE TESTS RESULT OUT OF REFERENCE UNITS RANGE LAB NA(LOINC) 136-145 mEq/L Sodium Blood 141 LAB K(LOINC) 3.5-5.1 mEq/L Low Potassium Blood 3.1 LAB CL(LOINC) 98-107 mEq/L Chloride High Blood 112 LAB CO2(LOINC) 21-32 mEq/L Low CO2 Blood 20 LAB GLU(LOINC) 70-99 mg/dL Glucose High Blood 101 LAB BUN(LOINC) 7-18 mg/dL BUN Blood 13 LAB CREA(LOINC 0.51-0.95 mg/dL ) High Creatinine Blood 1.19 LAB CA(LOINC) 8.5-10.1 mg/dL Low Calcium Blood 7.5 LAB ANGAP(LOIN 8-16 C) Anion Gap 12 Performed By: #### P8 #### [facility] [address] [address] NURSING PROG Observed: 06/09/2018 Status: COMPLETED Source: [place] 12:07 AM [facility] REPOSITORY HNO ID: [id number] Author: Esperanza SargentRn) GAURANG Leon Service: Nursing Author Type: Registered Nurse Type: Nursing Progress Note Filed: 06/09/2018 12:09 AM Note Text: Nursing Progress Note Patient Name: Dia Mccullough Patient Location: [place] [address] [address] Spoke with Dr. Gleason regarding pt bloody maroon BMs. No orders received, will recheck Hgb with morning labs. Will continue to monitor. This note was completed by: Esperanza eLon RN PROGRESS Observed: 06/08/2018 Status: COMPLETED Source: [place] 6:23 PM [facility] REPOSITORY HNO ID: [id number] Author: Allison Wyatt Service: General Surgery Author Type: Nurse Practitioner Type: Progress Notes Filed: 06/08/2018 6:35 PM Note Text: Late entry from 1100: Asked to see patient due to bloody stools. Upon entering room patient sitting at bedside with therapy. Large amount red and maroon stool on chux pad from bed. Patient states she has been stooling since about 0400. Patient stood at bedside to clean backside and was incontinent of large amount BRBPR onto floor. Assisted back to bed. Denies lightheadedness, CP, SOB. VSS. Abdominal exam unchanged. Heparing gtt had been held prior due to aPTT and awaiting redraw results. Patient with urge to void and assisted to BSC. Passed small amount of blood with small clots present. A/P: 77 year old female diarrhea, found to have diverticulosis, pericolonic/retroperitoneal free air. Repeat CT showing improvements -discontinue heparin gtt -stat hgb -consult to hematology for anticoagulation in questionable diverticular bleed -monitor abdominal exams Allison Wyatt APRN.DIRECTOR DIGITAL SALES Pager: [phone] Emergency General Surgery Service Pager: For questions or concerns Mon-Tue 6a-5p please page [phone]. After 5pm and on Weekends and Holidays, please page [phone]. CASE MANAGEM Observed: 06/08/2018 Status: COMPLETED Source: [place] 3:45 PM [facility] REPOSITORY HNO ID: [id number] Author: Rosy SargentRn) GAURANG Carreno Service: Care Management Author Type: Registered Nurse Type: Care Mgt Progress Note Filed: 06/08/2018 3:51 PM Note Text: CARE MANAGEMENT PROGRESS NOTE SERVICE DATE: 06/08/2018 SERVICE TIME: 3:45 PM LOS: 3 days Needs Prior to Discharge: Ready for Discharge;Discharge Transportation Spoke with patient at the bedside. [facility] able to accept patient and will have a bed available on Tuesday06/10/18. No insurance authorization needed. Will continue to follow clinical course for further DC planning needs. SIGNATURE: Rosy Carreno RN PATIENT NAME: Dia Mccullough DATE: June 08, 2018 TIME: 3:45 PM PAGER/CONTACT #: [phone] CONSULT PROG Observed: 06/08/2018 Status: COMPLETED Source: [place] 3:20 PM [facility] OTHER CAMPUS REPOSITORY HNO ID: [id number] Author: Clarissa Reeves Service: Hospital Medicine Author Type: Physician Type: Consult Progress Note Filed: 06/08/2018 3:23 PM Note Text: DEPARTMENT OF HOSPITAL MEDICINE PROGRESS NOTE SERVICE DATE: 06/08/2018 SERVICE TIME: 3:20 PM Hospital Medicine/Primary Attending: Clarissa Reeves MD NIGHT AND WEEKEND COVERAGE: After 7pm, please call cross cover pager #[phone] Subjective CC/Follow up for INTERVAL HPI: no acute events overnight pt reported no complaints. Feeling ok. Pt denied any nausea, vomiting, abd pain, chest pain or sob. MEDICATIONS: Reviewed Current hospital medications: NaCl 0.9% 10 mL 10 mL INTRAVENOUS q 12 H NaCl 0.9% 20 mL 20 mL INTRAVENOUS PRN heparin iv infusion (STANDARD NOMOGRAM) 25,000 units in NaCl 0.45% 250 mL PREMIX 0-3,000 Units/hr INTRAVENOUS CONTINUOUS heparin RATE CHANGE bolus 1,000-10,000 Units for subtherapeutic aptt results 1,000-10,000 Units INTRAVENOUS PRN iv contrast (radiology procedure) INTRAVENOUS DIRECTED PRN enteric contrast (radiology procedure) ORAL DIRECTED PRN miconazole 2 % (MONISTAT-DERM,DORA) TOPICAL BID HYDROcodone 5 mg - acetaminophen 325 mg tablet (NORCO) 1 tablet ORAL q 6 H PRN cloNIDine HCl 0.2 mg tab(s) (CATAPRES) 0.2 mg ORAL q 8 H metoprolol tartrate (short acting) 25 mg tab(s) (LOPRESSOR) 25 mg ORAL q 12 H ondansetron (PF) 4 mg injection (ZOFRAN) 4 mg INTRAVENOUS q [address] 40 mg tab(s) (PROTONIX) 40 mg ORAL DAILY (6 AM) NaCl 0.9% iv infusion 75 mL/hr INTRAVENOUS [...] 3 g in NaCl 0.9% 100 mL MB+/ADD-[place] (UNASYN) 3 g INTRAVENOUS q 8 H benzocaine-menthol 1 Lozenge (CEPACOL) 1 Lozenge MUCOUS MEMBRANE (TOPICAL MOUTH AND THROAT) q 2 H PRN melatonin 3 mg tab(s) 3 mg ORAL DAILY (8 PM) Objective PHYSICAL EXAM: BP 139/74 Pulse 80 Temp (Src) 97.2 (Temporal Artery) Resp 18 Ht 5' 0 (1.52m) Wt 159 lb 2.8 oz (72.2kg) SpO2 99% BMI 31.09 kg/(m2). Gen: Alert, oriented, no distress, cooperative HENT: NCAT, Eyes: non-icteric sclera, Neck: supple CV: RRR, normal S1,S2, no murmur Resp: non-labored, CTBL GI: soft, ND, NT Neuro: no focal deficit Skin: warm, choric skin changes/pigmentations with edema Psych: appropriate mode and affect ? DATA: Diagnostic tests reviewed for today's visit: CBC, Coags, BMP, Mg, Phos Recent Labs 06/08/18 1225 06/08/18 1020 06/08/18 0406 06/07/18 2004 06/07/18 0440 06/06/18 0350 WBC -- -- 6.24 -- -- 7.43 6.07 HB 7.7* -- 8.0* -- -- 8.7* 7.5* HCT -- -- 26.6* -- -- 29.9* 25.5* PLT -- -- 181* -- -- 198 141* APTT -- >139.0* see below see below < > -- -- NA -- -- 143 -- -- 145 147* K -- -- 3.6 -- -- 4.3 3.3* CHLOR -- -- 113* -- -- 116* 115* CO2 -- -- 22 -- -- 21 23 BUN -- -- 16 -- -- 18 24* CREAT -- -- 1.20* -- -- 1.41* 1.44* GLUC -- -- 124* -- -- 120* 105* CA -- -- 7.4* -- -- 7.7* 7.2* < > = values in this interval not displayed. CSF AND Dilantin Liver Function, Amylase, AND Lipase Cardiac Enzymes ABGs Assessment/Plan ?[place]'s disease - on chronic home prednisone (home dose 12.5 to 20mg daily) - cont with IV hydrocortisone, taper soon if not going to surgery ? CKD3- Cr stable /improved ? A-fib - seen by cardiology , agree with heparin gtt per primary team, can resume eliquis once deemed safe per primary Hx of DVT - on chronic AC as above HTN - cont meds -stable ? Retroperitoneal free air - per primary team/general surgery and ID ? ? VTE Prophylaxis: per primary team ? ? Plan of care discussed with: Patient ? SIGNATURE: Clarissa Reeves MD PATIENT NAME: Dia Mccullough DATE: June 08, 2018 TIME: 3:20 PM PAGER/CONTACT #: [email or web address] Observed: 06/08/2018 Status: COMPLETED Source: [place] 2:33 PM CLINIC OTHER CAMPUS REPOSITORY HNO ID: [id number] Author: Veena Quintanilla Service: Hematology/Oncology Author Type: Physician Type: Consults Filed: 06/08/2018 3:26 PM Note Text: CONSULT: Hematology/Oncology SERVICE SERVICE DATE: 06/08/2018 SERVICE TIME: 2:45pm REASON FOR CONSULT: OAC opinion REQUESTING PHYSICIAN: Dr. New PRIMARY CARE PHYSICIAN: Rika Wheeler MD Subjective Ms. Mccullough is a 77 year old female who presented to ER on 06/05/18. She was admitted on 06/05/18 after coming from [place] for a weeks worth of diarrhea. A CT there showed rectal perforation with pneumoperitoneum. She was transferred here for surgical evaluation. She was noted to be in atrial fib with RVR and was given Cardizem, which converted her to NSR. She denied fever, chills, chest pain, SOB, nausea, vomiting, or urinary symptoms. She did endorse pain in her left buttock. She was started on IV Zosyn, Cardiology was consulted for a fib, ID was consulted for abx recommendations with pt recently on Cipro, Vanco for C diff. Per Dr. Irizarry's notes 03/2017: history of recurrent DVT and massive bilateral PE. ? She developed left lower extremity DVT in 02/2013 after back fusion surgery of 11/2012. She was treated with Lovenox bridging to Coumadin. She underwent right hip replacement in 04/2013. Coumadin was discontinued in 06/2013. She developed syncope in 12/2013. CTA of the chest on 01/05/14 revealed extensive bilateral pulmonary emboli. Lower extremity Doppler on 01/05/14 revealed nonocclusive thrombus involving the proximal left femoral vein and the popliteal vein. Coumadin was restarted. Doppler of LLE on 02/14/14 showed ?acute? left calf DVT in the posterior tibial veins. 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 Elevated fasting homocysteine level (12.2 umol/L on 02/26/14). She was on coumadin at the time of her last visit with Dr. Irizarry. She states now that she has been on eliquis for 4 months now for PCP (unclear if 5mg BID vs. 2.5mg BID). Having rectal bleeding from perforated rectum. Discussed with RN and she stood up this afternoon after having a blood pool on pad in bed to draining dilia blood. Today on exam, we are asked to see her for possible d/c of OAC and recommendations. The patient has active rectal bleeding and heparin gtt was d/c this morning per RN for the blood loss listed above. Repeat Hb is now 7.7. The patient states she wants to come off of OAC but understands the risk of dying from clots. She has multiple bruises and has very swollen BLEs that are TTP. PAST MEDICAL HISTORY Diagnosis Date - Collin disease - Asthma - CKD (chronic kidney disease) stage 3, GFR 30-59 ml/min ([facility]) 11/28/2014 - Contact dermatitis and [...] HTN (hypertension) - Hypercholesterolemia - Inflammatory polyarthritis ([facility]) Dr. Hansen - Inflammatory polyarthropathy - Normocytic anemia - PE (pulmonary thromboembolism) ([facility]) 01/05/14 Bilat, extensive - Pulmonary [...] Week at Unknown time Current hospital medications: NaCl 0.9% 10 mL 10 mL INTRAVENOUS q 12 H NaCl 0.9% 20 mL 20 mL INTRAVENOUS PRN heparin iv infusion (STANDARD NOMOGRAM) 25,000 units in NaCl 0.45% 250 mL PREMIX 0-3,000 Units/hr INTRAVENOUS CONTINUOUS heparin RATE CHANGE bolus 1,000-10,000 Units for subtherapeutic aptt results 1,000-10,000 Units INTRAVENOUS PRN iv contrast (radiology procedure) INTRAVENOUS DIRECTED PRN enteric contrast (radiology procedure) ORAL DIRECTED PRN miconazole 2 % (MONISTAT-DERM,DORA) TOPICAL BID HYDROcodone 5 mg - acetaminophen 325 mg tablet (NORCO) 1 tablet ORAL q 6 H PRN cloNIDine HCl 0.2 mg tab(s) (CATAPRES) 0.2 mg ORAL q 8 H metoprolol tartrate (short acting) 25 mg tab(s) (LOPRESSOR) 25 mg ORAL q 12 H ondansetron (PF) 4 mg injection (ZOFRAN) 4 mg INTRAVENOUS q [address] 40 mg tab(s) (PROTONIX) 40 mg ORAL DAILY (6 AM) NaCl 0.9% iv infusion 75 mL/hr INTRAVENOUS [...] 3 g in NaCl 0.9% 100 mL MB+/ADD-[place] (UNASYN) 3 g INTRAVENOUS q 8 H benzocaine-menthol 1 Lozenge (CEPACOL) 1 Lozenge MUCOUS MEMBRANE (TOPICAL MOUTH AND THROAT) q 2 H PRN melatonin 3 mg tab(s) 3 mg ORAL DAILY (8 PM) Allergies As of Date: 06/05/2018 Allergen Noted Reaction ANSAID [FLURBIPROFEN] 12/22/2010 GI Upset ARTHROTEC 50 [DICLOFENAC-MISOPROS*06/24/2011 GI Upset AUGMENTIN [AMOXICILLIN-POT CLAVUL*08/31/2008 GI Upset DOXYCYCLINE 03/17/2005 GI Upset ERYTHROMYCIN 03/17/2005 GI Upset GRASS POLLEN 02/17/2006 LODINE [ETODOLAC] 03/17/2005 NSAIDS (NON-STEROIDAL ANTI-INFLAM*03/11/2017 Unknown POISON LISA 03/17/2005 VIOXX [ROFECOXIB] 03/17/2005 GI Upset Fully Assessed 06/05/2018 COMPLETE REVIEW OF SYSTEMS: GENERAL: Fatigue, Positive for malaise with diarrhea RESPIRATORY: Negative for cough, hemoptysis, wheezing, COPD, dyspnea or shortness of breath CARDIOVASCULAR: leg swelling GI: No nausea, vomiting, or diarrhea and Positive for abdominal discomfort mostly LLQ, change in bowel habit with diarrhea, melena and BRPBR MUSCULOSKELETAL: joint pain or swelling HEMATOLOGY/LYMPHOLOGY: Positive for bruises easily and bleeding/clotting disorder: multiple VTEs Objective BP 139/74 Pulse 80 Temp 36.2 ?C (97.2 ?F) (Temporal Artery) Resp 18 Ht 152.4 cm (5') Wt 72.2 kg (159 lb 2.8 oz) SpO2 99% BMI 31.09 kg/m? PHYSICAL EXAM: GENERAL: Alert, no distress, cooperative, Mild Distress, Pale LUNGS: Lungs clear to auscultation, Good diaphragmatic excursion CARDIAC: Normal S1 and S2; no rubs, murmurs, or gallops, atrial fibrillation at times ABDOMEN: Abdomen soft, non-tender, BS normal, No masses or organomegaly and Positive findings: obese, tenderness: mild location: LLQ EXTREMITIES: Extremities normal, no deformities, edema, clubbing or skin discoloration. Good capillary refill., No ulcers, 1+ pitting edema with venous stasis; multiple bruises on chest, BUEs and BLEs Patient Vitals for the past 24 hrs: BP Temp Temp src Pulse Resp SpO2 06/08/18 1135 139/74 - - 80 18 99 % 06/08/18 0712 140/84 36.2 ?C (97.2 ?F) Temporal Art 84 18 99 % 06/08/18 0400 144/61 36.8 ?C (98.2 ?F) Oral 81 18 97 % 06/07/18 2257 138/58 36.9 ?C (98.4 ?F) Oral 72 16 97 % 06/07/18 1900 149/64 36.9 ?C (98.4 ?F) Temporal Art 63 18 100 % 06/07/18 1500 115/67 37.2 ?C (99 ?F) Temporal Art 70 18 100 % Body mass index is 31.09 kg/m?. DATA: Diagnostic tests reviewed for today's visit: Most recent labs and imaging results. LABS: Recent Labs 06/08/18 1225 06/08/18 1020 06/08/18 0406 WBC -- -- 6.24 RBC -- -- 2.55* HB 7.7* -- 8.0* HCT -- -- 26.6* MCV -- -- 104.3* PLT -- -- 181* GLUC -- -- 124* BUN -- -- 16 CREAT -- -- 1.20* NA -- -- 143 K -- -- 3.6 CHLOR -- -- 113* CO2 -- -- 22 CA -- -- 7.4* APTT -- >139.0* see below Reviewed CT a/p 04/08/19: Abscess noted in sigmoid/rectosigmoid area with fistulas. Fluid collection in R piriformis area. 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 - was on lifelong OAC with coumadin and per patient switched to Eliquis in 01/2018. - holding all anticoagulation for now given rectal bleeding. 2) Rectal perforation with peritonitis and fistulas - treatment per ID with antibiotics and surgery. - ? Need surgery. CT from today shows stability but no decrease other than in a few fluid collection areas and increase in R piriformis muscle. 3) BRBPR - related to rectal perforation and fistulas. - recommend checking Hb tomorrow am and transfuse if symptomatic or Hb <7. - holding anticoagulation. 4) Anemia - secondary to GI loss. 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 At this time, she may need surgery and has bleeding so that needs to be held. She is not very active at home and should ideally have the OAC as she is very likely to have another VTE and it could be fatal. The patient states she is fed up with the bruising however some of that is from her being on chronic prednisone. The patient thinks she will want to stay off of OAC once she has healed from this but will re-discuss this with her once she is improving and no longer bleeding. She could be a candidate for Eliquis at 2.5mg BID which is the new maintenance dose if she agrees to take something. Discussed with Dr. Irizarry who will discuss this with her again in the future. SIGNATURE: Veena Quintanilla MD PATIENT NAME: Dia Mccullough DATE: June 08, 2018 TIME: 3:23 PM PAGER: [phone] CASE MANAGEM Observed: 06/08/2018 Status: COMPLETED Source: [place] 1:34 PM [facility] REPOSITORY HNO ID: [id number] Author: Rosy (Rn) GAURANG Carreno Service: Care Management Author Type: Registered Nurse Type: Care Mgt Progress Note Filed: 06/08/2018 1:41 PM Note Text: CARE MANAGEMENT PROGRESS NOTE SERVICE DATE: 06/08/2018 SERVICE TIME: 1:34 PM LOS: 3 days Needs Prior to Discharge: Accepting Facility;Discharge Transportation FREEDOM OF CHOICE GIVEN: Financial Disclosure Provided Preference: [facility] Pt. declining need for SNF choice list Chart reviewed. Spoke with patient at the bedside. PT/OT recommend SNF. Patient agreeable. Patient's choice is [facility]. [facility] notified. Await acceptance. Will continue to follow clinical course for further DC planning needs. SIGNATURE: Rosy Carreno RN PATIENT NAME: Dia Mccullough DATE: June 08, 2018 TIME: 1:34 PM PAGER/CONTACT #: [phone] CONSULT PROG Observed: 06/08/2018 Status: COMPLETED Source: [place] 12:51 PM [facility] REPOSITORY HNO ID: [id number] Author: Misael Wei Service: Infectious Disease Author Type: Physician Type: Consult Progress Note Filed: 06/08/2018 12:57 PM Note Text: 06/08/2018 12:51 PM Infectious Disease Persistent abdominal pressure but mild and improved from admission. Still has diarrhea and bloody stool. Had CT this am, report pending. BP 140/84 Pulse 84 Temp 36.2 ?C (97.2 ?F) (Temporal Artery) Resp 18 Ht 152.4 cm (5') Wt 72.2 kg (159 lb 2.8 oz) SpO2 99% BMI 31.09 kg/m? Abd- BS present, soft, mildly distended, mild generalized pressure sensation with palpation but no tenderness. Recent Labs 06/08/18 1225 06/08/18 0406 06/07/18 0440 01/22/19 0350 WBC -- 6.24 7.43 6.07 HB 7.7* 8.0* 8.7* 7.5* HCT -- 26.6* 29.9* 25.5* PLT -- 181* 198 141* NEUTNUM -- 5.28 6.45* 5.39 CREAT -- 1.20* 1.41* 1.44* Imp: Presumed rectal perforation with associated peritonitis. History of perforated diveticulitis. Diarrhea with bloody stools. Anemia CKD stage 3 Rec: Await repeat CT Continue unasyn and cipro. If repeat ct shows improvement, will change to po augmentin and cipro. Misael Wei MD HGB Collected: 06/08/2018 Status: F Source: [facility] 12:25 PM HEALTH SYSTEM REPOSITORY TYPE CODE TESTS RESULT OUT OF RANGE REFERENCE UNITS LAB HGBI(LOINC) 11.2-15.7 g/dL Low Hgb 7.7 Performed By: #### HGBI #### [place] [id number] THERAPY NT Observed: 06/08/2018 Status: COMPLETED Source: [place] 12:05 PM [facility] OTHER CAMPUS REPOSITORY HNO ID: [id number] Author: Radha (Pt) Yola Service: Physical Therapy Author Type: Physical Therapist Type: Therapy (PT/OT/Speech/Resp) Filed: 06/08/2018 12:09 PM Note Text: Physical Therapy Evaluation SERVICE DATE: 06/08/2018 SERVICE TIME: 1030 to 1045 ROOM: [place] [id number] Recommended Discharge Disposition: Subacute/SNF Recommended Discharge Disposition Comments: Unless meets goals Justification For Post Acute Needs: Anticipate that patient will require daily (5x/wk) skilled therapy in a post-acute facility setting at the time of acute hospital discharge;Living the community premorbidly;Good premorbid functional status;Functional status improvement unknown PT Recommendations to Nursing: Transfer to/from chair;OOB for Meals;With assist of 1 person Device: Wheeled Walker PT 6 Clicks Score: 15 Precautions/Activity Restrictions: Fall Risk;Lines/Tubes/Drains;Diet Restrictions (Liquid diet presently) Precaution/Activity Restriction Comments: IV; recent heparin drip with increased bleeding rectally and RUE/IV site; RN in room and aware Isolation Type: None ASSESSMENT : This patient was admitted for diarrhea, rectal perforation, has the past medical history of [place]ch[place] disease, DVT, venous insufficiency impacting current functional level, as well as the social factors complicating the discharge of lives alone, lack of 24 hour physical assist available. This patient is below baseline functioning of independent and will benefit from continued skilled therapy in the hospital for treatment of the following body systems/impairments: musculoskeletal, transfers, gait, balance, strength, endurance/activity tolerance. Patient Disposition at Start of Session: Supine in Bed Patient Disposition at End of Session: Supine in Bed Tolerance Limited By Physiologic Response (rectal bleeding) Physical Therapy Problem List: Education Deficit;Safety Deficits;Decreased Strength;Functional Mobility Impairment;Balance Impaired Patient /Caregiver Goals: Go Home Goals for Plan of Care: Transfer supine to/from sit with: Stand By Assistance Transfer sit to/from stand with: Stand By Assistance Ambulate with: Stand By Assistance Distance: 40 ft intervals Device: Wheeled Walker Goal: Complete B LE therex x 20 reps Rehab Potential: Good PLAN: Treatment Frequency (times per week): 5 (2-5) Current admission Treatment Interventions: Education;Strengthening;Functional Mobility Training;Balance Training Plan of Care developed with: Patient TREATMENT INTERVENTIONS: Therapy Diagnosis: Reduced mobility-other;Muscle Weakness (generalized);Unsteadiness on feet;Abnormalities of gait and mobility-other Interventions Provided: Evaluation $ Evaluation-Moderate (62991) Billed Units: 1 unit History and examination of body systems see assessment section above. This patient?s clinical presentation is evolving. The patient required a moderate complexity evaluation. Evaluation limited due to positive rectal bleeding noted with bed mobility. Patient stood briefly to change linen then returned supine. RN and [employer] aware. Total Treatment Time (minutes): 15 FUNCTIONAL G CODE: PT 6 Clicks Score: 15 (06/08/18 1030) Based on clinical assessment and the score on the 6 Clicks Functional Assessment Tool, the G code and corresponding severity modifiers are documented above. SUBJECTIVE: Current Hospital Course: Chart reviewed; Patient is a 77 year old female who presents to the hospital with diarrhea x1 week, CT showed rectal perforation Reason for Physical Therapy Consult : weakness, safety assessment Relevant Past Medical History: Leechburg's disease, CKD, h/o back surgery,AND R hip endo, HTN, fibromyalgia, astma (h/o DVT/PE, LLE hematoma; chronic pain in LEs) Patient Report: 8/10 Left lower extremity pain. Upon rolling in bed, noted patient with positive rectal bleed - bright red. RN and [employer] aware. Home Environment Patient Lives With: Self/Alone Assistance Available: time study analyst (Many friends per patient) Entry To Home: No Stairs Number Of Stairs To Bed/Bath: All one level set up Tub/Shower Type: walk in shower with seat/no grab bars/hand shower Laundry: on main floor Equipment Owned: Shower Chair;Wheeled Walker (Reports has wheelchair, but then denied) Prior Functional Level: Required Assistance Assistance Required With: Cleaning;Shopping;Transportation Prior Functional Level Comments: Patient reports has been independent in basic self care, light meal preparation, but recently has had difficulty in shower/feels unsafe, as well as difficulty getting up from commode. Reports has hired a cleaning lady and friends assist with meals . Can do light warm up/clean up for meals as cannot stand very long. OBJECTIVE: CURRENT FUNCTIONAL STATUS: Current Functional Mobility Assist Level Additional Information Rolling Supine to Sit Moderate Assistance Sit to Supine Moderate Assistance Scooting Sit to Stand Minimal Assistance Stand to Sit Minimal Assistance Bed to Chair Toilet/Commode Gait Stairs Curb Step Car Transfer Range of Motion: WFL Strength: WFL - grossly 4/5 JH-HLM: 5: Standing (1 or more minutes) Please see discipline specific clinical documentation flowsheet for complete details for this therapy evaluation/treatment. SIGNATURE: Radha Aceves PT PATIENT NAME: Dia Mccullough DATE: June 08, 2018 TIME: 12:05 PM THERAPY NT Observed: 06/08/2018 Status: COMPLETED Source: [place] 11:31 AM CLIN[facility] OTHER CAMPUS REPOSITORY HNO ID: [id number] Author: Becky (Otr/LSegundo Espinoza Service: Occupational Therapy Author Type: Occupational Therapist Type: Therapy (PT/OT/Speech/Resp) Filed: 06/08/2018 11:40 AM Note Text: Occupational Therapy Evaluation SERVICE DATE: 06/08/2018 SERVICE TIME: 7482 to 4699 ROOM: [id number] Recommended Discharge Disposition: Subacute/SNF Recommended Discharge Disposition Comments: Patient demonstrates increased weakness, pain and decreased independence in self care and functional mobility from baseline of modified independent/home alone with support for IADL. Would benefit from skilled rehab post acute to maximize strength, safety and independence to allow safe return home. Will continue to follow for progress toward goals and update plan of care/recommendations based on progress due to current medical acuity issues impacting function. Justification For Post Acute Needs: Anticipate that patient will require daily (5x/wk) skilled therapy in a post-acute facility setting at the time of acute hospital discharge;May not tolerate higher intensity programing;Willing to participate;Motivated;Medically complex;Living the community premorbidly;Good premorbid functional status;Good family support;Cognition intact;Anticipated community discharge OT Recommendations to Nursing: OOB for meals;Bedside Commode for Toileting;ADL?s in chair;With assist of 1 person Equipment: Wheeled Walker OT 6 Clicks Score: 14 Precautions/Activity Restrictions: Fall Risk;Lines/Tubes/Drains;Diet Restrictions (Liquid diet presently) Precaution/Activity Restriction Comments: IV; recent heparin drip with increased bleeding rectally and RUE/IV site; RN in room and aware Isolation Type: None ASSESSMENT: OT Evaluation Moderate Complexity: Occupational Profile - Extended review of patient's medical record completed including patient's physical, cognitive, and psycho-social history (please see current hospital course of evaluation). Occupational Performance - Pt presents with deficits in feeding, grooming, UE bathing/dressing, LE bathing/dressing, functional transfers, functional mobility, decreased safety awareness, decreased insight into deficits, deficits in home management skills for home and lives alone Complexity in Clinical Decision Making - The extent of clinical reasoning was moderate, several treatment options present for the patient, need for modification during the evaluation was moderate due to bleeding during session/medical acuity; comorbidities affecting occupational performance: rectal bleeding, Collin's disease, fibromyalgia, h/o LLE DVT/hematoma with chronic BLE pain/edema, HTN, CKD, inflammatory polyarthropathy Patient Disposition at Start of Session: Supine in Bed;Call Suggs in Reach Patient Disposition at End of Session: Other: See Comment (edge of bed with PT) Tolerance Limited By Other: See Comment (active rectal bleeding with ADL/mobility) Occupational Therapy Problem List: Education Deficit;Pain;Edema;Safety Deficits;Impaired Self Care;Decreased Activity Tolerance;Decreased Range Of Motion;Decreased Strength;Functional Mobility Impairment Patient /Caregiver Goals: Care For Self Goals for Plan of Care: Able to perform HEP with: Verbal Cues Only (for BUE AROM/AAROM/strengthening to enhance ADL) Feeding with: Modified Independent Grooming with: Stand By Assistance Upper Body Bathing with: Stand By Assistance Upper Body Dressing with: Stand By Assistance Lower Body Bathing with: Minimal Assistance Lower Body Dressing with: Minimal Assistance Toilet Hygiene with: Stand By Assistance Toilet Transfer with: Stand By Assistance Tolerate (minutes of functional activity): 40 Functional Activity with: Stand By Assistance Additional Goal 1: Patient will complete functional mobility for ADL with wheeled walker and SBA, with fair+ safety awareness. Demonstrate Competence With Education with: Verbal Cues Only (ADL/home mobility safety, energy conservation) Rehab Potential: Good PLAN: Treatment Frequency (times per week): 3 (1-3 times per week) Current admission Treatment Interventions: Education;Self Care / Home Management;Energy Conservation Training;Joint Mobility;Strengthening;Functional Mobility Training Plan of Care developed with: Patient TREATMENT INTERVENTIONS: Therapy Diagnosis: Reduced mobility-other;Decreased activities of daily living (ADL);Muscle Weakness (generalized) Interventions Provided: Evaluation $ Evaluation-Moderate (52248) Billed Units: 1 unit Initial patient education for safety with ADL/mobility initiated. Further treatment today limited by medical acuity/bleeding. RN in room with [employer]ER to address medical needs further during toileting with bleeding. Total Treatment Time (minutes): 15 SUBJECTIVE: Current Hospital Course: Chart reviewed; Ms. Mccullough is a 77 year old female with hx of [place]ch[place] disease, DVT/PE, CKD stage 3, asthma, hypertension, chronic peripheral venous insufficiency, left leg hematoma, an intra-abdominal abscess 2/2 sigmoid diverticulitis, and recent C diff colitis. In September 2017, she was admitted for treatment of the intraabdominal abscess, which included drainage and antibiotics. Today she came to the [facility] complaining of diarrhea for the past week. A CT there showed rectal perforation with pneumoperitoneum. She was transferred here for surgical evaluation. She was noted to be in atrial fib with RVR and was given Cardizem, which converted her to NSR. She did endorse pain in her left buttock. Cardiology was consulted for a fib, ID was consulted for abx recommendations with pt recently on Cipro, Vanco for C diff. Active Hospital Problems Diagnosis - Diarrhea - Malnutrition of mild degree (HCC) Reason for Occupational Therapy Consult: Post acute needs Relevant Past Medical History: Leechburg's disease, CKD, h/o back surgery,AND R hip endo, HTN, fibromyalgia, astma (h/o DVT/PE, LLE hematoma; chronic pain in LEs) Patient Report:Patient pleasant, agreeable to therapy. Reports 8/10 pain in LLE with touch/pressure, as well as some pain in RLE and abdomen. Patient reports, that bleeding is from me going since 4 am regarding large amounts of rectal bleeding found during session. RN notified and in room to address/assist during session due to bleeding. Patient reports has lots of friends that help at home, but did report concerns with her bathroom set up (type of shower seat, no grab bars/hand shower, no high toilet/grab bar) that things are getting more difficult and doesn't feel safe always. Would like to update her bathroom equipment for safety and would benefit from skilled OT consult to address. Home Environment Patient Lives With: Self/Alone Assistance Available: time study analyst (Many friends per patient) Entry To Home: No Stairs Number Of Stairs To Bed/Bath: All one level set up Tub/Shower Type: walk in shower with seat/no grab bars/hand shower Laundry: on main floor Equipment Owned: Shower Chair;Wheeled Walker (Reports has wheelchair, but then denied) Prior Functional Level: Required Assistance Assistance Required With: Cleaning;Shopping;Transportation Prior Functional Level Comments: Patient reports has been independent in basic self care, light meal preparation, but recently has had difficulty in shower/feels unsafe, as well as difficulty getting up from commode. Reports has hired a cleaning lady and friends assist with meals . Can do light warm up/clean up for meals as cannot stand very long. OBJECTIVE: Cognition/Communication Deficits Orientation Deficits: (Oriented x 3.) Responsiveness: Alert Follows Commands: 2-step Commands Executive Function Deficits: Judgement;Insight to Deficits;Safety Awareness Judgement Deficit: Minimal impairment Insight to Deficits: Minimal impairment Safety Awareness Deficit: Minimal impairment Cognitive Clinical Tests and Screens: (Cognition grossly intact) CURRENT FUNCTIONAL STATUS: Current Activities of Daily Living Assist Level Feeding Set Up (Liquid diet currently) Grooming Moderate Assistance Bathing Upper Body Moderate Assistance Bathing Lower Body Maximal Assistance Dressing Upper Body Moderate Assistance Dressing Lower Body Maximal Assistance Toileting Moderate Assistance Functional Mobility Assist Level Rolling Minimal Assistance Supine to Sit Moderate Assistance Sit to Supine Scooting Minimal Assistance Sit to Stand Minimal Assistance (wheeled walker) Stand to Sit Minimal Assistance Bed to Chair (not up to chair due to excessive bleeding/RN in , aware) Range of Motion: ROM Limitation Comments ROM Limitation Comments: RUE with moderate deficit AROM at shoulder; LUE mild defict at shoulder. Distal Grossly WFL for AROM BUE. Strength: Strength Limitation Comments Strength Limitation Comments: 2+/5 to 3-/5 R shoulder, 3-/5 to 3+/5 L shoulder; distally appears grossly 4-/5 to 4/5 Balance: Dynamic Sitting;Static Standing;Dynamic Standing;Static Sitting Static Sitting Balance: Modified Independent Dynamic Sitting Balance: Contact Guard Assistance Static Standing Balance: Minimal Assistance Activity Tolerance: Sitting Activity;Standing Activity Sitting Activity: edge of bed for ADL Sitting Activity Tolerance (in minutes): 5 Standing Activity: standing with walker for toileting tasks (increased rectal bleeding with stand) Standing Activity Tolerance (in minutes): 2 Please see discipline specific clinical documentation flowsheet for complete details for this therapy evaluation/treatment. SIGNATURE: ASHLEY [place]/L PATIENT NAME: Dia Mccullough DATE: June 08, 2018 TIME: 11:31 AM CASE MANAGEM Observed: 06/08/2018 Status: COMPLETED Source: [place] 10:54 AM [facility] OTHER CAMPUS REPOSITORY HNO ID: [id number] Author: Rosy (Rn) GAURANG Carreno Service: Care Management Author Type: Registered Nurse Type: Care Mgt Progress Note Filed: 06/08/2018 11:07 AM Note Text: CARE MANAGEMENT PROGRESS NOTE SERVICE DATE: 06/08/2018 SERVICE TIME: 10:54 AM LOS: 3 days Needs Prior to Discharge: To Be Determined;OT/PT Evaluation Chart reviewed. Care management consulted for patient's families concern about patient's ability to care for self. Spoke with patient and patient's friend at the bedside. Patient states her son Luis has concerns with her going home at discharge but she states she is fine and remains hopeful to return home at discharge with skilled home health care services. Information on private pay caregivers provided to patient and referral made to [facility]. PT/OT evaluation pending. Will continue to follow clinical course for further DC planning needs. SIGNATURE: Rosy Carreno RN PATIENT NAME: Dia Alvaradock DATE: June 08, 2018 TIME: 10:54 AM PAGER/CONTACT #: [phone] ACTIVATED PTT Collected: 06/08/2018 Status: F Source: [facility] 10:20 AM HEALTH SYSTEM REPOSITORY TYPE CODE TESTS RESULT OUT OF REFERENCE UNITS RANGE LAB APTT(LOINC 23.0-32.4 sec ) High alert Activated PTT >139.0 Result Comment: Testing performed on alternate platform ([employer]ucl[employer]). Note: New Reference Range Unfractionated Heparin Therapeutic Ranges: Standard Heparin Nomogram: 53 to 78 seconds (anti-Xa level of 0.3 to 0.7 U/mL) Low Dose/ACS Nomogram: 49 to 67 seconds (anti-Xa level of 0.2 to 0.5 U/mL) Stroke Treatment Nomogram: 49 to 67 seconds (anti-Xa level of 0.2 to 0.5 U/mL) Note: The APTT therapeutic range has been determined for the current lot of laboratory APTT reagent in use throughout the [facility]. Performed By: #### APTT #### [place] [id number] PROGRESS Observed: 06/08/2018 Status: COMPLETED Source: [place] 9:51 AM CLINIC OTHER CAMPUS REPOSITORY HNO ID: [id number] Author: Allison Wyatt Service: General Surgery Author Type: Nurse Practitioner Type: Progress Notes Filed: 06/08/2018 10:05 AM Note Text: EGS Surgery Progress Note SERVICE DATE: 06/08/2018 Service time: 0650 SUBJECTIVE: Blood pressures more controlled yesterday and overnight. Continues to have pain in left lower back/flank area but states much improved. Reports diarrhea continues as well but decreasing as well. Tolerating diet DIET LIQUID Nausea No Emesis No Flatus Yes Bowel movement Yes Pain Controlled Yes Ambulating Yes OBJECTIVE: Vitals: Temp (24hrs), Av.8 ?C (98.2 ?F), Min:36.2 ?C (97.2 ?F), Max:37.2 ?C (99 ?F) BP 140/84 Pulse 84 Temp 36.2 ?C (97.2 ?F) (Temporal Artery) Resp 18 Ht 152.4 cm (5') Wt 72.2 kg (159 lb 2.8 oz) SpO2 99% BMI 31.09 kg/m? O2 Therapy: Room Air IANDO: Date 06/07/18699 - 06/08/18 0659 06/08/18 07 - 06/09/18 0659 Shift 1409-5377 3850-2133 5088-5992 24 Hour Total 2387-0579 0252-2929 8387-0528 24 Hour Total I N T A K E PO 120 120 PO 120 120 IV 1226 797.6 2023.6 NS 0.9% 527 634 4231 Cipro IV 200 200 Heparin IV 136 77.6 213.6 Ampicillin/Sulbactam (Unasyn) IV 200 100 300 Shift Total 1346 797.6 2143.6 O U T P U T Urine Urine Not Saved. 2 x 3 x 2 x 7 x # of BMs Number of BMs 3 x 1 x 4 x Shift Total Weight (kg) 72.2 72.2 72.2 72.2 72.2 72.2 72.2 72.2 MEDICATIONS Current Facility-Administered Medications: NaCl 0.9% 10 mL 10 mL INTRAVENOUS q 12 H NaCl 0.9% 20 mL 20 mL INTRAVENOUS PRN heparin iv infusion (STANDARD NOMOGRAM) 25,000 units in NaCl 0.45% 250 mL PREMIX 0-3,000 Units/hr INTRAVENOUS CONTINUOUS And heparin RATE CHANGE bolus 1,000-10,000 Units for subtherapeutic aptt results 1,000-10,000 Units INTRAVENOUS PRN iv contrast (radiology procedure) INTRAVENOUS DIRECTED PRN And enteric contrast (radiology procedure) ORAL DIRECTED PRN miconazole 2 % (MONISTAT-DERM,DORA) TOPICAL BID HYDROcodone 5 mg - acetaminophen 325 mg tablet (NORCO) 1 tablet ORAL q 6 H PRN cloNIDine HCl 0.2 mg tab(s) (CATAPRES) 0.2 mg ORAL q 8 H metoprolol tartrate (short acting) 25 mg tab(s) (LOPRESSOR) 25 mg ORAL q 12 H ondansetron (PF) 4 mg injection (ZOFRAN) 4 mg INTRAVENOUS q [address] 40 mg tab(s) (PROTONIX) 40 mg ORAL DAILY (6 AM) NaCl 0.9% iv infusion 75 mL/hr INTRAVENOUS [...] 3 g in NaCl 0.9% 100 mL MB+/ADD-[place] (UNASYN) 3 g INTRAVENOUS q 8 H benzocaine-menthol 1 Lozenge (CEPACOL) 1 Lozenge MUCOUS MEMBRANE (TOPICAL MOUTH AND THROAT) q 2 H PRN melatonin 3 mg tab(s) 3 mg ORAL DAILY (8 PM) Labs: Recent Labs 06/08/18 0406 06/07/18 0440 NA 143 145 K 3.6 4.3 CHLOR 113* 116* CO2 22 21 BUN 16 18 CREAT 1.20* 1.41* GLUC 124* 120* ANION 12 12 CA 7.4* 7.7* WBC 6.24 7.43 HB 8.0* 8.7* HCT 26.6* 29.9* PLT 181* 198 Exam: GENERAL: No distress, Alert NEURO: AANDOx3, CN II-XII grossly intact HEENT: normocephalic, atraumatic LUNGS: Unlabored breathing CARDIAC: Regular rate and rhythm as above ABDOMEN: Soft, non-tender, mildly distended EXTREMITIES: MONGE, No deformities, No edema SKIN: Skin color, texture, turgor normal, No rashes or lesions ASSESSMENT AND PLAN: Active Hospital Problems Diagnosis Date Noted - Diarrhea 06/05/2018 - Malnutrition of mild degree (HCC) 06/05/2018 77 year old female diarrhea, found to have diverticulosis, pericolonic/retroperitoneal free air, improving ASHUTOSH - CLD - possibly advance if pain cont to improve and CT results - cont IVFs- ASHUTOSH continues to improve: 1.20 <- 1.41 <- 1.44. Patient has baseline CKD 3 - cont serial abdominal exams - c diff negative but on prophylactic oral vanc per ID - cont ABX per ID - VTE ppx: heparin gtt, IPCs, encourage ambulation - repeat CT today to assess for abscess, resolution of retroperitoneal free air - possible PICC line today due to continuously infiltrating peripheral IVs SIGNATURE: Allison Wyatt APRN.DIRECTOR D[employer] SALES PATIENT NAME: Dia Mccullough DATE: June 08, 2018 TIME: ,now Pager: see below Emergency General Surgery Service Pager: For questions or concerns Mon-Tue 6a-5p please page [phone]. After 5pm and on Weekends and Holidays, please page [phone] if in ICU or [phone] ABDOMEN AND PELVIS Observed: 06/08/2018 Status: F Source: [facility] WITH CONTRAST 9:05 AM HEALTH SYSTEM REPOSITORY Performed at [facility] APPROVED BY: RAIN HUNG MD ABDOMEN AND PELVIS CT WITH IV CONTRAST MEDIA DATE: 06/08/2018 09:03 HISTORY: Rectal perforation. Please compare prior studies TECHNIQUE: Standard abdomen and pelvis protocol with IV contrast. Coronal and sagittal reformatted images were obtained. CONTRAST: 150 cc of Omnipaque 300 was injected intravenously. Oral contrast was not administered. CT Dose-Length Product: 577.23 mGy*cm CT Dose Reduction Employed: 1. Automated exposure control (AEC) was used. COMPARISON: Abscessogram dated 10/27/2017, 11/03/2017 and 11/10/2017. CT examination of the pelvis with contrast dated 10/27/2017. CT examination from outside hospital of the abdomen and pelvis without contrast dated 06/04/2017. CT examination from outside hospital without contrast dated 10/08/2017. ENCOUNTER: Not applicable RESULT: Pelvis: Again demonstrated is gas and fluid collection involving the deep aspect of the mid pelvis, in the presacral space and adjacent to the rectosigmoid junction measuring up to 3.6 x 2.7 cm, essentially unc hanged since previous examination, allowing for differences in technique. Is minimal interval change regarding associated adjacent fistulous tracts and inflammatory change, extending to the mid aspect of the pelvis and abutting the mid to distal sigmoid colon with largest focus of fluid and gas in this region measuring up to 2.1 x 2.1 cm (series 2, image 84, essentially unchanged). Ill-defined focus of soft tissue infiltration and gas within the inferior/deep aspect of the pelvis and adjacent to the mid to distal rectum, largest focus measuring up to 2.7 x 2.5 cm. There is been i nterval decrease in amount of gas in this region compared to previous examination. No discrete associated fluid collection. Again demonstrated is colonic diverticulosis, predominantly involving the sigmoid colon. No associated colonic dilation. Interval increase in size/conspicuity of right piriformis fluid collection with demonstrates mild peripheral enhancement, measuring up to 3.0 x 2.0 cm (series 2, image 85). This is new since 02/09/2018. Gas within the left lateral aspect of the pelvis, left inguinal region, left thigh deep soft tissues without discrete and left retroperitoneal space are again noted, however overall mildly decreased in amount. No discrete associated fluid collection. No discrete lymphadenopathy or mass. Bladder partially distended and otherwise unremarkable. Uterus and adnexa are grossly unremarkable. Abdomen: No discrete new intraperitoneal gas. No suspicious hepatic lesions or biliary ductal dilation. No ascites. The gallbladder, pancreas, spleen and adrenal glands are unremarkable. Mild calcified atherosclerotic disease of the abdominal aorta and branch vessels without aneurysmal dilation. Branch vessels are grossly patent. No suspicious focal renal lesions. Little interval change regarding scattered subcentimeter partially exophytic cyst involving the left kidney. Again noted is nonobstructive calyceal stone at the righ t inferior renal pole, measuring up to 5 x 3 mm (series 2, image 52). No retroperitoneal or mesenteric lymphadenopathy. Again demonstrated is enlarged portosystemic collateral which appears to communicate between the inferior aspect of the SMV and the inferior vena cava without associated filling defect. No findings to suggest portal hypertension or discrete paraesophageal varices. No recanalized periumbilical vein. The portal vein and its main branches appear to be patent and otherwise unremarkable. Limited evaluation of the lung bases discloses new small bilateral effusions, left greater than right with compressive atelectasis involving the posterior segment of left lower lobe. Evaluation of the bony structures demonstrates no suspicious lytic or sclerotic osseous lesions. Again demonstrated is posterior lumbar fusion at L3-L4 with intact hardware and no discrete periprosthet ic lucency to suggest loosening. Again noted are postsurgical changes from posterior decompression, extending from L3 to L5. Multilevel degenerative changes of the lumbar spine again demonstrated. Severe compression deformity of the T12 vertebral body with associated sclerosis, essentially unchanged in appearance since 06/04 and new since 01/26/2018. 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 Again noted are fistulous tracts extending to the mid to distal sigmoid and rectosigmoid junction with associated focal fluid collection measurin g up to 2.1 x 2.1 cm compatible with abscess. These findings appear to be essentially unchanged since CT examination dated 06/04/2018. Interval decrease in amount of pelvic/perirectal and left inguinal/thigh soft tissue gas, compared to previous examination dated 06/04/2018. Interval decrease in amount of gas associated with perirectal soft tissue infiltration, as described above. Increase in size and conspicuity of focal fluid collection within right piriformis muscle suspicious for abscess and measuring up to 3.0 x 2.0 cm. Severe compression deformity T12 vertebral body of indeterminate age, essentially unchanged in morphology since 06/04/2018 and new since 01/26/2018. If recent onset of acute back pain and concern for a cute compression fracture, further evaluation with dedicated MRI examination of the thoracic spine without contrast is suggested. Please correlate clinically. 5 x 3 mm nonobstructive right renal calyceal stone, unchanged. PROGRESS Observed: 06/08/2018 Status: COMPLETED Source: [place] 6:12 AM [facility] REPOSITORY O ID: [id number] Author: Elizabeth Monge MS Service: (none) Author Type: (none) Type: Progress Notes Filed: 06/08/2018 6:34 AM Note Text: Attestation signed by Jovanna Mazariegos at 06/08/2018 2:36 PM This patient was seen by the JAYDE today - please see their note Jovanna Mazariegos, DO MEDICAL STUDENT PROGRESS NOTE SURGICAL SERVICES This note was generated by a MEDICAL STUDENT working under the supervision of a Physician. As applicable, the findings, conclusions, and assessment of risk have been confirmed by a qualified provider. The note is NOTconsidered authenticated until addended and co-signed by the Physician at the beginning of this note. Subjective CHIEF COMPLAINT: Diarrhea, rectal bleeding INTERVAL HISTORY OF PRESENT ILLNESS: No acute events overnight. Pain well-controlled, only complaint associated with neck/back discomfort. Continues to tolerate clear liquids. Endorses flatus. Reports last loose stool around 4AM, stool remains dark in color. Abdominal distension has improved. Denies shortness of breath, chest pain, abdominal pain, n/v, fever, chills. Current hospital medications: NaCl 0.9% 10 mL 10 mL INTRAVENOUS q 12 H NaCl 0.9% 20 mL 20 mL INTRAVENOUS PRN heparin iv infusion (STANDARD NOMOGRAM) 25,000 units in NaCl 0.45% 250 mL PREMIX 0-3,000 Units/hr INTRAVENOUS CONTINUOUS heparin RATE CHANGE bolus 1,000-10,000 Units for subtherapeutic aptt results 1,000-10,000 Units INTRAVENOUS PRN iv contrast (radiology procedure) INTRAVENOUS DIRECTED PRN enteric contrast (radiology procedure) ORAL DIRECTED PRN miconazole 2 % (MONISTAT-DERM,DORA) TOPICAL BID HYDROcodone 5 mg - acetaminophen 325 mg tablet (NORCO) 1 tablet ORAL q 6 H PRN cloNIDine HCl 0.2 mg tab(s) (CATAPRES) 0.2 mg ORAL q 8 H metoprolol tartrate (short acting) 25 mg tab(s) (LOPRESSOR) 25 mg ORAL q 12 H ondansetron (PF) 4 mg injection (ZOFRAN) 4 mg INTRAVENOUS q [address] 40 mg tab(s) (PROTONIX) 40 mg ORAL DAILY (6 AM) NaCl 0.9% iv infusion 75 mL/hr INTRAVENOUS [...] 3 g in NaCl 0.9% 100 mL MB+/ADD-[place] (UNASYN) 3 g INTRAVENOUS q 8 H benzocaine-menthol 1 Lozenge (CEPACOL) 1 Lozenge MUCOUS MEMBRANE (TOPICAL MOUTH AND THROAT) q 2 H PRN melatonin 3 mg tab(s) 3 mg ORAL DAILY (8 PM) Objective PHYSICAL EXAM: BP 144/61 Pulse 81 Temp 36.8 ?C (98.2 ?F) (Oral) Resp 18 Ht 152.4 cm (5') Wt 72.2 kg (159 lb 2.8 oz) SpO2 97% BMI 31.09 kg/m? Body mass index is 31.09 kg/m?. General: NAD, alert and oriented Neuro: CN II-XII grossly intact HEENT: Normocephalic, atraumatic Lungs: Clear to ascultation bilaterally, unlabored breathing Cardio: RRR Abdomen: Soft, non-tender, mildly distended but improved from yesterday, no rebound TTP appreciated; normoactive bowel sounds Extremities: No deformities Skin: Skin color, texture, turgor normal; no rashes or lesions; ecchymoses present DATA: Diagnostic tests reviewed for today's visit: BMP: Na = 143 < 145 (H) K = 3.6 < 4.3 Cl = 113 (H) BUN = 16 Cr= 1.2 < 1.41 <1.44 eGFR = 43.35 CBC: WBC = 6.24 Hb = 8.0 (L) <8.7 (L) Hct =26.6 (L) <29.9 (L) Plt = 181 <198 Assessment/Plan: Ms. Dia Mccullough is a 77-year-old female with diarrhea, found to have diverticulosis, pericolonic/retroperitoneal free air, improving ASHUTOSH, resolved hypoK 1. CT A/P today to evaluate resolution of free air, continue serial abdominal exams, continue CLD, remains on vanc/unasyn per ID 2. ASHUTOSH - continue trending Cr, has improved to 1.2 today, down from 1.41 yesterday; continue IVFs post CT A/P 3. Heparin drip started yesterday as DVT prophylaxis Elizabeth Monge MS3 Student General Surgery NURSING PROG Observed: 06/08/2018 Status: COMPLETED Source: [place] 4:37 AM CLINIC OTHER CAMPUS REPOSITORY HNO ID: [id number] Author: Esperanza SargentRn) GAURANG Leon Service: Nursing Author Type: Registered Nurse Type: Nursing Progress Note Filed: 06/08/2018 4:37 AM Note Text: Nursing Progress Note Patient Name: Dia Mccullough [id number] Pt left hand IV has infiltrated, but pt refuses to allow this RN to remove the IV. Fluids have been removed from the IV but pt will not allow physical IV removal. Will continue to monitor. This note was completed by: Esperanza Leon RN HEMOGRAM/DIFF Collected: 06/08/2018 Status: F Source: [facility] 4:06 AM [facility] REPOSITORY TYPE CODE TESTS RESULT OUT OF REFERENCE UNITS RANGE LAB WBC(LOINC) 3.98-10.04 thou/cmm WBC 6.24 LAB RBC(LOINC) 3.93-5.22 mil/cmm Low RBC 2.55 LAB HGB(LOINC) 11.2-15.7 g/dL Low Hgb 8.0 LAB HCT(LOINC) 34.1-44.9 % Low Hct 26.6 LAB MCV(LOINC) 79.4-94.8 fl MCV High 104.3 LAB MCH(LOINC) 25.6-32.2 pg MCH 31.4 LAB MCHC(LOINC 31.6-34.8 % ) Low MCHC 30.1 LAB RDW(LOINC) 11.7-14.4 % RDW High 20.0 LAB RDWSD(LOIN 36.4-46.3 fl C) RDW SD High 76.5 LAB PLT(LOINC) 182-369 thou/cmm Low Platelet 181 LAB MPV(LOINC) 9.4-12.3 fl MPV 10.0 LAB NRBCR(LOIN 0.0-0.2 % C) High Nucleated RBC % 0.5 LAB SEG(LOINC) % Seg Neutrophil 84.6 LAB IGRE(LOINC % ) Immature Grans 4.30 LAB LYMPH(LOIN % C) Lymphocyte 7.2 LAB MNO(LOINC) % Monocyte 3.7 LAB EOSIN(LOIN % C) Eosinophil 0.0 LAB BASO(LOINC % ) Basophil 0.2 LAB NRBCA(LOIN 0.00-0.01 thou/cmm C) High Nucleated RBC 0.03 Absolute LAB SEGN(LOINC 1.56-6.13 thou/cmm ) Abs. Neut (ANC) 5.28 LAB IGAB(LOINC 0.00-0.05 thou/cmm ) Abs High Immature Grans 0.27 LAB LYMN(LOINC 1.18-3.74 thou/cmm ) Low Abs. Lymph 0.45 LAB MONON(LOIN 0.27-0.70 thou/cmm C) Low Abs. [place] 0.23 LAB EOSN(LOINC 0.00-0.31 thou/cmm ) Abs. Eosin 0.00 LAB BASON(LOIN 0.01-0.08 thou/cmm C) Abs. Baso 0.01 Performed By: #### CBCD1 #### [place] [address] ACTIVATED PTT Collected: 06/08/2018 Status: F Source: [facility] 4:06 HEALTH SYSTEM REPOSITORY TYPE CODE TESTS RESULT OUT OF RANGE REFERENCE UNITS LAB APTT(LOINC 23.0-32.4 sec ) Unknown Activated PTT see below Result Comment: No clot detected at 320 seconds. Suggest correlation with clinical findings and redraw if indicated. Note: New Reference Range Unfractionated Heparin Therapeutic Ranges: Standard Heparin Nomogram: 53 to 78 seconds (anti-Xa level of 0.3 to 0.7 U/mL) Low Dose/ACS Nomogram: 49 to 67 seconds (anti-Xa level of 0.2 to 0.5 U/mL) Stroke Treatment Nomogram: 49 to 67 seconds (anti-Xa level of 0.2 to 0.5 U/mL) Note: The APTT therapeutic range has been determined for the current lot of laboratory APTT reagent in use throughout the [facility]. Performed By: #### APTT #### [place] [address] BASIC PANEL Collected: 06/08/2018 Status: F Source: [facility] 4:06 [facility] REPOSITORY TYPE CODE TESTS RESULT OUT OF REFERENCE UNITS RANGE LAB NA(LOINC) 136-145 mEq/L Sodium Blood 143 LAB K(LOINC) 3.5-5.1 mEq/L Potassium Blood 3.6 LAB CL(LOINC) 98-107 mEq/L Chloride High Blood 113 LAB CO2(LOINC) 21-32 mEq/L CO2 Blood 22 LAB GLU(LOINC) 70-99 mg/dL Glucose High Blood 124 LAB BUN(LOINC) 7-18 mg/dL BUN Blood 16 LAB CREA(LOINC 0.51-0.95 mg/dL ) High Creatinine Blood 1.20 LAB CA(LOINC) 8.5-10.1 mg/dL Low Calcium Blood 7.4 LAB ANGAP(LOIN 8-16 C) Anion Gap 12 Performed By: #### P8 #### [facility] [address] [place] [address] NURSING PROG Observed: 06/07/2018 Status: COMPLETED Source: [place] 8:49 PM CLINIC OTHER CAMPUS REPOSITORY HNO ID: [id number] Author: Esperanza SargentRn) GAURANG Leon Service: Nursing Author Type: Registered Nurse Type: Nursing Progress Note Filed: 06/07/2018 8:50 PM Note Text: Nursing Progress Note Patient Name: Dia Mccullough Patient Location[place] [address] [address] Notified Dr. Dial at 20:40 that no clot was detected in pt's APTT. Orders received to hold heparin drip for an hour and restart at 10 ml/hr instead of 13 ml/hr. Heparin drip held at 20:45, will restart at 21:45. This note was completed by: Esperanza Leon RN ACTIVATED PTT Collected: 06/07/2018 Status: F Source: [facility] 8:04 PM HEALTH SYSTEM REPOSITORY TYPE CODE TESTS RESULT OUT OF RANGE REFERENCE UNITS LAB APTT(LOINC 23.0-32.4 sec ) Unknown Activated PTT see below Result Comment: No clot detected at 320 seconds. Suggest correlation with clinical findings and redraw if indicated. Note: New Reference Range Unfractionated Heparin Therapeutic Ranges: Standard Heparin Nomogram: 53 to 78 seconds (anti-Xa level of 0.3 to 0.7 U/mL) Low Dose/ACS Nomogram: 49 to 67 seconds (anti-Xa level of 0.2 to 0.5 U/mL) Stroke Treatment Nomogram: 49 to 67 seconds (anti-Xa level of 0.2 to 0.5 U/mL) Note: The APTT therapeutic range has been determined for the current lot of laboratory APTT reagent in use throughout the [facility]. Performed By: #### APTT #### [facility] [address] [place] [address] NURSING PROG Observed: 06/07/2018 Status: COMPLETED Source: [place] 5:36 PM [facility] REPOSITORY HNO ID: [id number] Author: Valentín (Rn) GAURANG Lama Service: (none) Author Type: Registered Nurse Type: Nursing Progress Note Filed: 06/07/2018 8:12 PM Note Text: Nursing Progress Note Patient Name: Dia Mccullough Patient Location[place] [address] [address] Daily Note: Spoke to KATY Castaneda regarding pt stated she was a DNR and no orders or paperwork in the computer, New orders received. Spoke to KATY Castaneda regarding pt orders for tunneled PICC new orders received. Spoke to Dr. Valdez regarding new orders for heparin drip. Spoke to KATY Castaneda regarding pt stating she hallucinated and felt very drowsy VS taken BP 141/84. No new orders received, will continue to monitor. Spoke to KATY Castaneda regarding pt stating she would refuse contrast no new orders received. This note was completed by: Valentín Lama RN CONSULT PROG Observed: 06/07/2018 Status: COMPLETED Source: [place] 3:17 PM [facility] REPOSITORY HNO ID: [id number] Author: Clarissa Reeves Service: Hospital Medicine Author Type: Physician Type: Consult Progress Note Filed: 06/07/2018 5:44 PM Note Text: DEPARTMENT OF HOSPITAL MEDICINE PROGRESS NOTE SERVICE DATE: 06/07/2018 SERVICE TIME: 3:17 PM Hospital Medicine/Primary Attending: Clarissa Reeves MD NIGHT AND WEEKEND COVERAGE: After 7pm, please call cross cover pager #[phone] Subjective CC/Follow up for Medical management INTERVAL HPI: no acute events overnight pt reported having improvement of abd pain Pt denied any vomiting, chest pain or sob. MEDICATIONS: Reviewed Current hospital medications: lidocaine 10 mg/mL (1 %) 10-20 mg injection (XYLOCAINE) 1- 2 mL INTRADERMAL ONCE NaCl 0.9% 10 mL 10 mL INTRAVENOUS q 12 H NaCl 0.9% 20 mL 20 mL INTRAVENOUS PRN heparin iv infusion (STANDARD NOMOGRAM) 25,000 units in NaCl 0.45% 250 mL PREMIX 0-3,000 Units/hr INTRAVENOUS CONTINUOUS heparin RATE CHANGE bolus 1,000-10,000 Units for subtherapeutic aptt results 1,000-10,000 Units INTRAVENOUS PRN miconazole 2 % (MONISTAT-DERM,DORA) TOPICAL BID HYDROcodone 5 mg - acetaminophen 325 mg tablet (NORCO) 1 tablet ORAL q 6 H PRN cloNIDine HCl 0.2 mg tab(s) (CATAPRES) 0.2 mg ORAL q 8 H metoprolol tartrate (short acting) 25 mg tab(s) (LOPRESSOR) 25 mg ORAL q 12 H ondansetron (PF) 4 mg injection (ZOFRAN) 4 mg INTRAVENOUS q [address] 40 mg tab(s) (PROTONIX) 40 mg ORAL DAILY (6 AM) NaCl 0.9% iv infusion 75 mL/hr INTRAVENOUS [...] 3 g in NaCl 0.9% 100 mL MB+/ADD-[place] (UNASYN) 3 g INTRAVENOUS q 8 H benzocaine-menthol 1 Lozenge (CEPACOL) 1 Lozenge MUCOUS MEMBRANE (TOPICAL MOUTH AND THROAT) q 2 H PRN melatonin 3 mg tab(s) 3 mg ORAL DAILY (8 PM) Objective PHYSICAL EXAM: BP 120/66 Pulse 97 Temp (Src) 97.9 (Temporal Artery) Resp 18 Ht 5' 0 (1.52m) Wt 159 lb 2.8 oz (72.2kg) SpO2 97% BMI 31.09 kg/(m2). Gen: Alert, oriented, no distress, cooperative HENT: NCAT, Eyes: non-icteric sclera, Neck: supple CV: RRR, normal S1,S2, no murmur Resp: non-labored, CTBL GI: soft, ND, NT Neuro: no focal deficit Skin: warm, choric skin changes/pigmentations Psych: appropriate mode and affect DATA: Diagnostic tests reviewed for today's visit: CBC, Coags, BMP, Mg, Phos Recent Labs 06/07/18 1411 06/07/18 0440 06/06/18 0350 06/05/18 0344 WBC -- 7.43 6.07 8.33 HB -- 8.7* 7.5* 8.7* HCT -- 29.9* 25.5* 29.6* PLT -- 198 141* 158* APTT 23.9 -- -- -- NA -- 145 147* 148* K -- 4.3 3.3* 3.7 CHLOR -- 116* 115* 116* CO2 -- 21 23 25 BUN -- 18 24* 37* CREAT -- 1.41* 1.44* 1.58* GLUC -- 120* 105* 83 CA -- 7.7* 7.2* 7.2* CSF AND Dilantin Liver Function, Amylase, AND Lipase Cardiac Enzymes ABGs Assessment/Plan 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 Pt told me she was taking eliquis at home. 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 HTN - cont meds Retroperitoneal free air - per primary team/general surgery and ID VTE Prophylaxis: per primary team Plan of care discussed with: Patient SIGNATURE: Clarissa Reeves MD PATIENT NAME: Dia Mccullough DATE: June 07, 2018 TIME: 3:17 PM PAGER/CONTACT #: [email or web address] [phone] Observed: 06/07/2018 Status: COMPLETED Source: [place] 2:55 PM [facility] REPOSITORY HNO ID: [id number] Author: Radha SargentPtSegundo Aceves Service: Physical Therapy Author Type: Physical Therapist Type: Therapy (PT/OT/Speech/Resp) Filed: 06/07/2018 2:55 PM Note Text: PHYSICAL THERAPY MISSED VISIT SERVICE DATE: 06/07/2018 SERVICE TIME: 1454 to 1454 ROOM: [place] [address] Attempted Evaluation. Patient not seen due to Declined. Patient states she is too groggy from the medications to walk at this time. Will continue to follow patient as able. SIGNATURE: Radha Aceves PT PATIENT NAME: Dia Mccullough DATE: June 07, 2018 TIME: 2:55 PM THERAPY NT Observed: 06/07/2018 Status: COMPLETED Source: [place] 2:54 PM [facility] REPOSITORY HNO ID: [id number] Author: Lizzette SargentOtr/Emilie Myers OT Service: Occupational Therapy Author Type: Occupational Therapist Type: Therapy (PT/OT/Speech/Resp) Filed: 06/07/2018 2:54 PM Note Text: OCCUPATIONAL THERAPY MISSED VISIT SERVICE DATE: 06/07/2018 SERVICE TIME: 1454 to 1454 ROOM: [place] [address] Attempted Evaluation. Patient not seen due to Declined (groggy from medications; agreeable to try back later as able). SIGNATURE: ASHLEY Pelletier/Marina PATIENT NAME: Dia Mccullough DATE: June 07, 2018 TIME: 2:54 PM ACTIVATED PTT Collected: 06/07/2018 Status: F Source: [facility] 2:11 PM HEALTH SYSTEM REPOSITORY TYPE CODE TESTS RESULT OUT OF REFERENCE UNITS RANGE LAB APTT(LOINC 23.0-32.4 sec ) Activated PTT 23.9 Result Comment: Note: New Reference Range Unfractionated Heparin Therapeutic Ranges: Standard Heparin Nomogram: 53 to 78 seconds (anti-Xa level of 0.3 to 0.7 U/mL) Low Dose/ACS Nomogram: 49 to 67 seconds (anti-Xa level of 0.2 to 0.5 U/mL) Stroke Treatment Nomogram: 49 to 67 seconds (anti-Xa level of 0.2 to 0.5 U/mL) Note: The APTT therapeutic range has been determined for the current lot of laboratory APTT reagent in use throughout the [facility]. Performed By: #### APTT #### [address] [address] PROGRESS Observed: 06/07/2018 Status: COMPLETED Source: [place] 12:59 PM [facility] REPOSITORY HNO ID: [id number] Author: Becky (Rn) GAURANG Damon Service: PICC Team Author Type: Registered Nurse Type: Progress Notes Filed: 06/07/2018 1:00 PM Note Text: PICC/VASCULAR ACCESS PROGRESS NOTE SERVICE DATE: 06/07/2018 SERVICE TIME: 1300 Procedure for placement of intravenous catheter with use of ultrasound guidance and need for catheter explained to patient with verbal understanding given by patient. Following hospital protocol, a 20g 2.25inch Bard AccuCath catheter was placed using ultrasound guidance to right forearm without difficulty on the first attempt. Catheter with brisk blood return and flushes easily with 10cc normal saline. Catheter capped. StatLock stabilization device applied. Site dressing per hospital policy. Patient tolerated procedure well. Local Anesthetic : 1% lidocaine given at site per policy SIGNATURE: Becky Damon RN PATIENT NAME: Dia Mccullough DATE: June 07, 2018 TIME: 1:00 PM PAGER/CONTACT #: [phone] CONSULT PROG Observed: 06/07/2018 Status: COMPLETED Source: [place] 12:05 PM [facility] REPOSITORY HNO ID: [id number] Author: Misael Wei Service: Infectious Disease Author Type: Physician Type: Consult Progress Note Filed: 06/07/2018 12:11 PM Note Text: INFECTIOUS DISEASE CONSULT PROGRESS NOTE SERVICE DATE: 06/07/2018 SERVICE TIME: 12:06 PM Subjective INTERVAL HISTORY / PERTINENT Review of Systems Constitutional: Negative for chills and fever. Gastrointestinal: Positive for blood in stool (Decreasing, only one smallbloody stool this morning) and diarrhea (Decreasing). Negative for abdominal pain (Less anterior abdominal pressure), nausea and vomiting. Posterior left pelvic pain also decreasing. All other systems reviewed and are negative. Having IV access problems,to have PICC line placed. Current Facility-Administered Medications: lidocaine 10 mg/mL (1 %) 10-20 mg injection (XYLOCAINE) 1- 2 mL INTRADERMAL ONCE NaCl 0.9% 10 mL 10 mL INTRAVENOUS q 12 H NaCl 0.9% 20 mL 20 mL INTRAVENOUS PRN miconazole 2 % (MONISTAT-DERM,DORA) TOPICAL BID HYDROcodone 5 mg - acetaminophen 325 mg tablet (NORCO) 1 tablet ORAL q 6 H PRN cloNIDine HCl 0.2 mg tab(s) (CATAPRES) 0.2 mg ORAL q 8 H metoprolol tartrate (short acting) 25 mg [...] 3 g in NaCl 0.9% 100 mL MB+/ADD-[place] (UNASYN) 3 g INTRAVENOUS q 8 H benzocaine-menthol 1 Lozenge (CEPACOL) 1 Lozenge MUCOUS MEMBRANE (TOPICAL MOUTH AND THROAT) q 2 H PRN melatonin 3 mg tab(s) 3 mg ORAL DAILY (8 PM) Objective PHYSICAL EXAM: Vital Signs: BP 154/83 Pulse 80 Temp 36.6 ?C (97.9 ?F) (Temporal Artery) Resp 18 Ht 152.4 cm (5') Wt 67.3 kg (148 lb 6.4 oz) SpO2 97% BMI 28.98 kg/m? Physical Exam Abdominal: Soft. Bowel sounds are normal. She exhibits no distension and no mass. There is tenderness (Mild generalized pressure with palpation, especially low central abdomen). There is no rebound and no guarding. DATA: Diagnostic Tests Reviewed for Today's Visit: Most recent labs To have repeat CT abdomen tomorrow per report Recent Labs 06/07/18 0440 06/06/18 0350 06/05/18 0344 WBC 7.43 6.07 8.33 HB 8.7* 7.5* 8.7* HCT 29.9* 25.5* 29.6* PLT 198 141* 158* NEUTNUM 6.45* 5.39 7.21* CREAT 1.41* 1.44* 1.58* No results found for: VANCORA Impression/Recommendations Active Problems: Diarrhea POA: Yes Assessment AND Plan: improving, still has blood in stool frequency decreased. Hemoglobin apparently stabilized. Presumed rectal perf, associated peritonitis. History of perforated diverticulitis last year. Continue unasyn/cipro, follow response. To have repeat CT abdomen and pelvis tomorrow. If she improves, could use po augmentin and cipro at home after DC. Resolved Problems: * No resolved hospital problems. * SIGNATURE: Misael Wei MD PATIENT NAME: Dia Mccullough DATE: June 07, 2018 TIME: 12:06 PM PAGER/CONTACT #: [phone] NURSING PROG Observed: 06/07/2018 Status: COMPLETED Source: [place] 10:07 AM [facility] [place] REPOSITORY HNO ID: [id number] Author: Gail (Rn) GAURANG Mittal Service: PICC Team Author Type: Registered Nurse Type: Nursing Progress Note Filed: 06/07/2018 10:09 AM Note Text: PICC/VASCULAR ACCESS PROGRESS NOTE SERVICE DATE: 06/07/2018 SERVICE TIME: [address] Mark concerning GFR=35. OK for PICC placement. SIGNATURE: Gail Mittal RN PATIENT NAME: Dia Mccullough DATE: June 07, 2018 TIME: 10:07 AM PAGER/CONTACT #: [phone] NURSING PROG Observed: 06/07/2018 Status: COMPLETED Source: [place] 10:07 AM [facility] OTHER [place] REPOSITORY HNO ID: [id number] Author: Valentín SargentRn) GAURANG Lama Service: (none) Author Type: Registered Nurse Type: Nursing Progress Note Filed: 06/07/2018 10:14 AM Note Text: Nursing Progress Note Patient Name: Dia Mccullough Patient Location: [place] [address] [address] Daily Note: Spoke to KATY Castaneda regarding pt PICC line orders clarification, and pt stating she wanted to be a DNR, no new orders received. This note was completed by: Valentín Lama RN CASE MANAGEM Observed: 06/07/2018 Status: COMPLETED Source: [place] 8:51 AM [facility] REPOSITORY HNO ID: [id number] Author: Rosy (Rn) GAURANG Carreno Service: Care Management Author Type: Registered Nurse Type: Care Mgt Progress Note Filed: 06/07/2018 8:56 AM Note Text: CARE MANAGEMENT PROGRESS NOTE SERVICE DATE: 06/07/2018 SERVICE TIME: 8:51 AM LOS: 2 days Needs Prior to Discharge: Home Care Order;Pharmacy Bedside Delivery Chart reviewed. Patient independent at home alone prior to admission. Patient hopeful to return home at discharge with skilled home health care services[facility] Will continue to follow clinical course for further DC planning needs. SIGNATURE: Rosy Carreno RN PATIENT NAME: Dia Mccullough DATE: June 07, 2018 TIME: 8:51 AM PAGER/CONTACT #: [phone] PROGRESS Observed: 06/07/2018 Status: COMPLETED Source: [place] 6:13 AM [facility] REPOSITORY HNO ID: [id number] Author: Jovanna Mazariegos Service: General Surgery Author Type: Physician Type: Progress Notes Filed: 06/07/2018 11:51 AM Note Text: EGS Surgery Progress Note SERVICE DATE: 06/07/2018 SUBJECTIVE: High systolic blood pressures overnight. Patient resting comfortably in bed this AM Denies any nausea, vomiting, fever, or chills. Endorses flatus, BMs Tolerating CLD Abdominal and back pain has improved this AM. Tolerating diet DIET LIQUID Nausea No Emesis No Flatus Yes Bowel movement Yes Pain Controlled Yes Ambulating Yes OBJECTIVE: Vitals: Temp (24hrs), Av.9 ?C (98.5 ?F), Min:36.7 ?C (98.1 ?F), Max:37.2 ?C (99 ?F) BP 159/74 Pulse 82 Temp 36.7 ?C (98.1 ?F) (Oral) Resp 18 Ht 152.4 cm (5') Wt 67.3 kg (148 lb 6.4 oz) SpO2 96% BMI 28.98 kg/m? O2 Therapy: Room Air IANDO: Date 06/06/18 07 - 06/07/1865806/07/18699 - 06/08/18 0659 Shift 3827-9175 4471-4782 5798-6995 24 Hour Total 9737-6715 7913-9908 8134-1248 24 Hour Total I N T A K E PO 750 200 950 PO 750 200 950 IV 1050 723 326 1306 NS 0.9% 550 177 415 7137 Cipro IV 200 200 Potassium IVPB 200 200 Ampicillin/Sulbactam (Unasyn) IV 100 100 Shift Total 1800 129 003 0176 O U T P U T Urine Urine Not Saved. 2 x 3 x 1 x 6 x # of BMs Stool Incontinence 1 x 1 x Number of BMs 2 x 1 x 1 x 4 x Shift Total Weight (kg) 67.3 67.3 67.3 67.3 67.3 67.3 67.3 67.3 MEDICATIONS Current Facility-Administered Medications: miconazole 2 % (MONISTAT-DERM,DORA) TOPICAL BID HYDROcodone 5 mg - acetaminophen 325 mg tablet (NORCO) 1 tablet ORAL q 6 H PRN cloNIDine HCl 0.2 mg tab(s) (CATAPRES) 0.2 mg ORAL q 8 H metoprolol tartrate (short acting) 25 mg [...] 3 g in NaCl 0.9% 100 mL MB+/ADD-[place] (UNASYN) 3 g INTRAVENOUS q 8 H benzocaine-menthol 1 Lozenge (CEPACOL) 1 Lozenge MUCOUS MEMBRANE (TOPICAL MOUTH AND THROAT) q 2 H PRN melatonin 3 mg tab(s) 3 mg ORAL DAILY (8 PM) Labs: Recent Labs 06/07/18 0440 06/06/18 0350 NA 145 147* K 4.3 3.3* CHLOR 116* 115* CO2 21 23 BUN 18 24* CREAT 1.41* 1.44* GLUC 120* 105* ANION 12 12 CA 7.7* 7.2* WBC 7.43 6.07 HB 8.7* 7.5* HCT 29.9* 25.5* PLT 198 141* Exam: GENERAL: No distress, Alert NEURO: AANDOx3, CN II-XII grossly intact HEENT: normocephalic, atraumatic LUNGS: Unlabored breathing CARDIAC: Regular rate and rhythm as above ABDOMEN: Soft, non-tender, mildly distended. No rebound TTP appreciated. EXTREMITIES: MONGE, No deformities, No edema SKIN: Skin color, texture, turgor normal, No rashes or lesions ASSESSMENT AND PLAN: Active Hospital Problems Diagnosis Date Noted - Diarrhea 06/05/2018 - Malnutrition of mild degree (HCC) 06/05/2018 77 year old female diarrhea, found to have diverticulosis, pericolonic/retroperitoneal free air, improving ASHUTOSH, hypokalemia - resolved. - started clonidine for elevated BP - patient mildly distended this AM - encourage ambulation - c diff negative but on prophylactic oral vanc per ID - cont ABX per ID - cont IVFs - plan for repeat CT 06/08 to assess for abscess, resolution of retroperitoneal free air - cont serial abdominal exams - cont CLD for now - possibly advance if pain cont to improve - possible PICC line today due to continuously infiltrating peripheral IVs - cont to trend Cr - ASHUTOSH improving minimally with IVFs; patient has baseline CKD 3 - will discuss with attending SIGNATURE: Josh New DO PATIENT NAME: Dia Mccullough DATE: June 07, 2018 TIME: 0615 AM Pager: [phone] I personally saw and evaluated the patient and participated in the canales components of case. I discussed the case with the resident team, reviewed all pertinent labs/imaging, and agree with the findings as documented above. Jovanna Mazariegos DO HEMOGRAM/DIFF Collected: 06/07/2018 Status: F Source: [facility] 4:40 AM HEALTH SYSTEM REPOSITORY TYPE CODE TESTS RESULT OUT OF REFERENCE UNITS RANGE LAB WBC(LOINC) 3.98-10.04 thou/cmm WBC 7.43 LAB RBC(LOINC) 3.93-5.22 mil/cmm Low RBC 2.78 LAB HGB(LOINC) 11.2-15.7 g/dL Low Hgb 8.7 LAB HCT(LOINC) 34.1-44.9 % Low Hct 29.9 LAB MCV(LOINC) 79.4-94.8 fl MCV High 107.6 LAB MCH(LOINC) 25.6-32.2 pg MCH 31.3 LAB MCHC(LOINC 31.6-34.8 % ) Low MCHC 29.1 LAB RDW(LOINC) 11.7-14.4 % RDW High 21.0 LAB RDWSD(LOIN 36.4-46.3 fl C) RDW SD High 82.6 LAB PLT(LOINC) 182-369 thou/cmm Platelet 198 LAB MPV(LOINC) 9.4-12.3 fl MPV 9.7 LAB NRBCR(LOIN 0.0-0.2 % C) High Nucleated RBC % 0.3 LAB SEG(LOINC) % Seg Neutrophil 86.8 LAB IGRE(LOINC % ) Immature Grans 0.90 LAB LYMPH(LOIN % C) Lymphocyte 8.7 LAB MNO(LOINC) % Monocyte 3.6 LAB EOSIN(LOIN % C) Eosinophil 0.0 LAB BASO(LOINC % ) Basophil 0.0 LAB NRBCA(LOIN 0.00-0.01 thou/cmm C) High Nucleated RBC 0.02 Absolute LAB SEGN(LOINC 1.56-6.13 thou/cmm ) Abs. High Neut (ANC) 6.45 LAB IGAB(LOINC 0.00-0.05 thou/cmm ) Abs High Immature Grans 0.07 LAB LYMN(LOINC 1.18-3.74 thou/cmm ) Low Abs. Lymph 0.65 LAB MONON(LOIN 0.27-0.70 thou/cmm C) Abs. [place] 0.27 LAB EOSN(LOINC 0.00-0.31 thou/cmm ) Abs. Eosin 0.00 LAB BASON(LOIN 0.01-0.08 thou/cmm C) Low Abs. Baso 0.00 Performed By: #### CBCD1 #### [facility] [address] [place] [address] BASIC PANEL Collected: 06/07/2018 Status: F Source: [facility] 4:40 AM HEALTH SYSTEM REPOSITORY TYPE CODE TESTS RESULT OUT OF REFERENCE UNITS RANGE LAB NA(LOINC) 136-145 mEq/L Sodium Blood 145 LAB K(LOINC) 3.5-5.1 mEq/L Potassium Blood 4.3 LAB CL(LOINC) 98-107 mEq/L Chloride High Blood 116 LAB CO2(LOINC) 21-32 mEq/L CO2 Blood 21 LAB GLU(LOINC) 70-99 mg/dL Glucose High Blood 120 LAB BUN(LOINC) 7-18 mg/dL BUN Blood 18 LAB CREA(LOINC 0.51-0.95 mg/dL ) High Creatinine Blood 1.41 LAB CA(LOINC) 8.5-10.1 mg/dL Low Calcium Blood 7.7 LAB ANGAP(LOIN 8-16 C) Anion Gap 12 Performed By: #### P8 #### [place] [address] NURSING PROG Observed: 06/06/2018 Status: COMPLETED Source: [place] 9:27 PM [facility] REPOSITORY HNO ID: [id number] Author: Miya (Rn) GAURANG Yusuf Service: Nursing Author Type: Registered Nurse Type: Nursing Progress Note Filed: 06/06/2018 9:30 PM Note Text: Nursing Progress Note Patient Name: Dia Mccullough Patient Location: [facility]/[id number]-* RN spoke with Dr new regarding sbp 176, After 25mg metoprolol, BP reads 181/97. New orders received for scheduled Clonidine. RN will continue to monitor. This note was completed by: Miya Yusuf RN PROGRESS Observed: 06/06/2018 Status: COMPLETED Source: [place] 7:13 PM [facility] OTHER [facility]AMP[facility] REPOSITORY O ID: [id number] Author: Becca Rivera Service: Hospital Medicine Author [...] 3 g in NaCl 0.9% 100 mL MB+/ADD-[place] (UNASYN) 3 g INTRAVENOUS q 8 H [...] (98.1 ?F) Oral 94 18 97 % 06/05/18 202 146/78 37 ?C (98.6 ?F) Oral 96 [...] ID Surgery following. plan for repeat CT thurs 06/08 Hx HTN- HPL- Hx PE- Hx DVT- Hypothyroid- Hx Polymyalgia rheumatica- Leechburg's disease- Hx CKD 3- CAD- SIGNATURE: Becca Rivera DO PATIENT NAME: Dia Mccullough DATE: June 06, 2018 TIME: 7:13 PM PAGER/CONTACT #: NURSING PROG Observed: 06/06/2018 Status: COMPLETED Source: [place] 6:15 PM [facility] REPOSITORY HNO ID: [id number] Author: Valentín SargentRn) GAURANG Lama Service: (none) Author Type: Registered Nurse Type: Nursing Progress Note Filed: 06/06/2018 6:29 PM Note Text: Nursing Progress Note Patient Name: Dia Mccullough Patient Location: [place] [address]/[id number]-* Daily Note: Spoke to Lyndsay K [employer] regarding need for a wound care consult for IAD, new orders received. Spoke to Lyndsay Amaya [employer] regarding Bp of 170/83, no new orders received, will continue to monitor. Spoke to Dr. New regarding pt request oral pain medication and 2 IVs. Going bad within an hour of starting, no new orders received, will continue to monitor. This note was completed by: Valentín Lama, RN CONSULT PROG Observed: 06/06/2018 Status: COMPLETED Source: [place] 1:55 PM [facility] REPOSITORY HNO ID: [id number] Author: Maggie (Arben) Lisa Service: Wound Care Team Author Type: [...] LEAD ELECTROCARDIOGRAM Observed: 06/06/2018 Status: F Source: [place] 1:07 PM [facility] Cardiovascular Services [address] [place] [address] 12 Lead EKG 06/04/18 1823 MR#: [id number] Acct: [id number] Name: DIA MCCULLOUGH Rep #: [id number] : 1940 77 From: Jackson Uirostegui MD Attending Dr: Status: DEP ER Ordering [...] Abnormal ECG Confirmed by JACKSON URIOSTEGUI MD ([id number]), video news editor INDIA MARTINEZ ([id number]) on 06/06/2018 1:07:26 PM Referred By: Confirmed By:JACKSON URIOSETGUI MD 06/06/18 5388 Date Jackson Uriostegui MD CC: Meme Echevarria MD; Jared Romero MD Signed 12 LEAD ELECTROCARDIOGRAM Observed: 06/06/2018 Status: F Source: [place] 1:07 PM [facility] Cardiovascular Services [address] [place], [place] [address] [address] 12 Lead EKG 06/04/182058 MR#: [id number] Acct: [id number] Name: DIA MCCULLOUGH Rep #: [id number] : 1940 77 From: Jackson Uriostegui MD [...] Abnormal ECG Confirmed by JACKSON URIOSTEGUI MD ([id number]), video news editor INDAI MARTINEZ ([id number]) on 06/06/2018 1:07:43 PM Referred By: MAXI Confirmed By:JACKSON URIOSTEGUI MD 06/06/18 6945 Date Jackson Uriostegui MD CC: Meme Echevarria MD; Jared Romero MD Signed CONSULT PROG Observed: 06/06/2018 Status: COMPLETED Source: [place] 12:40 PM [facility] OTHER [facility] REPOSITORY HNO ID: [id number] Author: Misael Wei Service: Infectious Disease Author [...] 3 g in NaCl 0.9% 100 mL MB+/ADD-[place] (UNASYN) 3 g INTRAVENOUS q 8 H [...] 06, 2018 TIME: 12:40 PM PAGER/CONTACT #: [phone] CASE MANAGEM Observed: 06/06/2018 Status: COMPLETED Source: [place] 10:35 AM [facility] OTHER [facility]AMP[facility] REPOSITORY HNO ID: [id number] Author: Monique Limon (Sw) Service: Social Work Author Type: Shoemaker Apprentice Type: Care Mgt Progress Note Filed: 06/06/2018 [...] 06, 2018 TIME: 10:35 AM PAGER/CONTACT #: [phone] PROGRESS Observed: 06/06/2018 Status: COMPLETED Source: [place] 6:32 AM [facility] OTHER [facility]AMP[facility] REPOSITORY HNO ID: [id number] Author: Jovanna Mazariegos Service: General Surgery Author Type: Physician Type: Progress Notes Filed: 06/07/2018 11:48 AM Note Text: EGS Surgery Progress Note SERVICE DATE: 06/06/2018 SUBJECTIVE: Patient resting comfortably in bed this AM Denies any nausea, vomiting, fever, or chills. Endorses flatus, BMs Tolerating CLD Abdominal and back pain has improved this AM. Tolerating diet DIET LIQUID Nausea No Emesis No Flatus Yes Bowel movement Yes Pain Controlled Yes Ambulating Yes OBJECTIVE: Vitals: Temp (24hrs), Av.9 ?C (98.5 ?F), Min:36.7 ?C (98.1 ?F), Max:37.1 ?C (98.8 ?F) BP 155/84 Pulse 94 Temp 36.7 ?C (98.1 ?F) (Oral) Resp 18 Ht 152.4 cm (5') Wt 67.3 kg (148 lb 6.4 oz) SpO2 97% BMI 28.98 kg/m? O2 Therapy: Room Air IANDO: Date 06/05/18 07 - 06/06/18 0659 06/06/18 07 - 06/07/18 0659 Shift 8958-9062 9281-1180 7722-6820 24 Hour Total 1337-2727 5091-8437 7628-3982 24 Hour Total I N T A K E PO 500 500 PO 500 500 IV 828 306 2102 2718 NS 0.9% 718 1400 2118 Zosyn IV 50 50 Cipro IV 250 250 Ampicillin/Sulbactam (Unasyn) IV 200 100 300 Shift Total 9863 571 1680 3218 O U T P U T Urine Urine Incontinence/Not Saved 1 x 1 x 2 x Urine Not Saved. 1 x 1 x 1 x 3 x # of BMs Stool Incontinence 2 x 2 x 1 x 5 x Number of BMs 2 x 1 x 3 x Shift Total Weight (kg) 67.3 67.3 67.3 67.3 67.3 67.3 67.3 67.3 MEDICATIONS Current Facility-Administered Medications: potassium chloride iv piggyback [...] 3 g in NaCl 0.9% 100 mL MB+/ADD-[place] (UNASYN) 3 g INTRAVENOUS q 8 H benzocaine-menthol 1 Lozenge (CEPACOL) 1 Lozenge MUCOUS MEMBRANE (TOPICAL MOUTH AND THROAT) q 2 H PRN Labs: Recent Labs 06/06/18 0350 06/05/18 0344 NA 147* 148* K 3.3* 3.7 CHLOR 115* 116* CO2 23 25 BUN 24* 37* CREAT 1.44* 1.58* GLUC 105* 83 ANION 12 11 CA 7.2* 7.2* WBC 6.07 8.33 HB 7.5* 8.7* HCT 25.5* 29.6* PLT 141* 158* Exam: GENERAL: No distress, Alert NEURO: AANDOx3, CN II-XII grossly intact HEENT: normocephalic, atraumatic LUNGS: Unlabored breathing CARDIAC: Regular rate and rhythm as above ABDOMEN: Soft, non-tender, non-distended. No rebound TTP appreciated. EXTREMITIES: MONGE, No deformities, No edema SKIN: Skin color, texture, turgor normal, No rashes or lesions ASSESSMENT AND PLAN: Active Hospital Problems Diagnosis Date Noted - Diarrhea 06/05/2018 - Malnutrition of mild degree (HCC) 06/05/2018 77 year old female diarrhea, found to have diverticulosis, pericolonic/retroperitoneal free air, improving ASHUTOSH, hypokalemia. - c diff negative but on prophylactic oral vanc per ID - cont ABX per ID - cont IVFs - plan for repeat CT th06/08 to assess for abscess, resolution of retroperitoneal free air - cont serial abdominal exams - cont CLD for now - possibly advance if pain cont to improve - replace K this AM - cont to trend Cr - ASHUTOSH improving with IVFs - will discuss with attending - please page if patient's clinical condition worsens SIGNATURE: Josh New DO PATIENT NAME: Dia Mccullough DATE: June 06, 2018 TIME: 6:32 AM Pager: [phone] I personally saw and evaluated the patient and participated in the canales components of case. I discussed the case with the resident team, reviewed all pertinent labs/imaging, and agree with the findings as documented above. Jovanna Mazariegos DO HEMOGRAM/DIFF Collected: 06/06/2018 Status: F Source: [facility] 3:50 AM HEALTH SYSTEM REPOSITORY TYPE CODE [...] 0.35 LAB MONON(LOIN 0.27-0.70 thou/cmm C) Abs. [place] 0.27 LAB EOSN(LOINC 0.00-0.31 thou/cmm ) Abs. Eosin 0.00 LAB BASON(LOIN 0.01-0.08 thou/cmm C) Low Abs. Baso 0.00 Performed By: #### CBCD1 #### [place] [address] BASIC PANEL Collected: 06/06/2018 Status: F Source: [facility] 3:50 AM HEALTH SYSTEM REPOSITORY TYPE CODE [...] Gap 12 Performed By: #### P8 #### [place] [address] PROGRESS Observed: 06/05/2018 Status: COMPLETED Source: [place] 4:36 PM CLINIC OTHER CAMPUS REPOSITORY HNO ID: [id number] Author: Josh (Teresita New Service: General Surgery Author Type: Resident [...] page if patient's clinical picture worsens Josh New DO Urology, PGY-1 2442 CONSULT Observed: 06/05/2018 Status: COMPLETED Source: [place] 3:30 PM CLINIC OTHER CAMPUS REPOSITORY HNO ID: [id number] Author: Gold Ramos Service: Infectious Disease Author [...] in our chart review. She went into [facility] and was sent here yesterday very early in the morning to get surgical evaluation here. She's been on Zosyn since. She had nausea and left flank pain but no bad abdominal pain just a vague discomfort. Denied fevers or chills. Apparently sometime at the end of 2017 she was treated for C. difficile colitis and had oral vancomycin. At [facility] she had atrial fibrillation with RVR [...] now resolved, left flank pain PMH? - Collin disease ? - Asthma ? - CKD (chronic kidney disease) stage 3, GFR 30-59 ml/min ([facility]) 11/28/2014 - Contact dermatitis and [...] ? - Hypercholesterolemia ? - Inflammatory polyarthritis ([facility]) ? ? Dr. Hansen - Inflammatory polyarthropathy ? - Normocytic anemia ? - PE (pulmonary thromboembolism) ([facility]) 01/05/14 ? Bilat, extensive - Pulmonary embolism [...] 3 g in NaCl 0.9% 100 mL MB+/ADD-[place] (UNASYN) 3 g INTRAVENOUS q 8 H [...] 05, 2018 TIME: 3:30 PM PAGER/CONTACT #: [phone] NUTRITION Observed: 06/05/2018 Status: COMPLETED Source: [place] 1:23 PM CLINIC OTHER CAMPUS REPOSITORY HNO ID: [id number] Author: Yazmin Sherwood Service: Nutrition Therapy Author [...] 77 year old female with hx of Leechburg disease, DVT/PE, CKD stage 3, asthma, hypertension, chronic peripheral venous insufficiency, left leg hematoma, an intra-abdominal abscess 2/2 sigmoid diverticulitis, and recent C diff colitis. In September 2017, she was admitted for treatment of the intraabdominal abscess, which included drainage and antibiotics. Today she came to the [facility] complaining of diarrhea for the past [...] Shoulder Allergic Rhinitis, Cause Unspecified Inflammatory Polyarthropathy ([facility]) Asthma Vitamin D Deficiency Osteoarthrosis, Unspecified Whether Generalized Or Localized, Hand Osteoarthrosis, Unspecified Whether Generalized Or Localized, Ankle and Foot Fibromyalgia Sicca Syndrome ([facility]) Acute Thromboembolism of Deep Veins of Lower Extremity ([facility]) Inflammatory Polyarthritis ([facility]) Dvt (Deep Venous Thrombosis) ([facility]) Pulmonary Embolism, Bilateral ([facility]) Pulmonary Emboli ([facility]) Pmr (Polymyalgia Rheumatica) ([facility]) Generalized Osteoarthritis Ckd (Chronic Kidney Disease) Stage 3, Gfr 30-59 Ml/Min ([facility]) Venous Insufficiency (Chronic) (Peripheral) Homocystinuria Perforated Bowel ([facility]) Leechburg disease Intra-Abdominal Abscess ([facility]) Traumatic Hematoma of Left Lower Leg Leg Hematoma, Left, Initial Encounter Pelvis, Female Abscess Diarrhea PAST MEDICAL HISTORY Diagnosis Date - Leechburg disease - Asthma - CKD (chronic kidney disease) stage 3, GFR 30-59 ml/min ([facility]) 11/28/2014 - Contact dermatitis and [...] HTN (hypertension) - Hypercholesterolemia - Inflammatory polyarthritis ([facility]) Dr. Hansen - Inflammatory polyarthropathy - Normocytic anemia - PE (pulmonary thromboembolism) ([facility]) 01/05/14 Bilat, extensive - Pulmonary [...] kg (161 lb) Usual Body Weight: 70.5kg [place] Body Weight: 45.5kg Resting Metabolic Rate: 1080 Estimated kilocalorie needs: 0273-9821 kilocalories determined by 25-30 kcal/kg [place] weight Estimated protein needs: 55-68 grams determined by 1.2-1.5 g/kg [place] weight Estimated fluid needs: 1300 milliliters based [...] g INTRAVENOUS q 12 H Date 06/04/18 07 - 06/05/18 0659(Not Admitted) 06/05/18 07 - 06/06/18 0659 Shift 1471-7177 4948-2471 4000-3868 24 Hour Total 7653-8785 2875-8490 4787-3021 24 Hour Total I N T A [...] 126 CONSULT Observed: 06/05/2018 Status: COMPLETED Source: [place] 10:35 AM CLINIC OTHER CAMPUS REPOSITORY HNO ID: [id number] Author: Duncan Martínez Service: Cardiovascular Medicine Author Type: Physician Type: Consults Filed: 06/05/2018 10:42 AM Note Text: CONSULT: CARDIOLOGY SERVICE SERVICE DATE: 06/05/2018 SERVICE TIME: 10:30 AM CONSULTING PHYSICIAN: Duncan Martínez MD PCP: Rika Wheeler MD ATTENDING: Randi Kolb REASON FOR CONSULT: Arrhythmias Subjective CHIEF COMPLAINT: Perforation of rectum ([facility]) [K63.1] HISTORY OF PRESENT ILLNESS: Ms. Mccullough is a 77 year old female who presents for diarrhea and low back pain for the last one week. Patient was initially admitted to [facility] where she was found to [...] on Eliquis. She said she saw her firearms inspector Dr. Uriostegui at [facility] recently. She said she had an echocardiogram done during that time and was told that it was normal. She denies any lightheadedness syncope orthopnea PND or leg edema. PAST MEDICAL HISTORY Diagnosis Date - Leechburg disease - Asthma - CKD (chronic kidney disease) stage 3, GFR 30-59 ml/min ([facility]) 11/28/2014 - Contact dermatitis and [...] HTN (hypertension) - Hypercholesterolemia - Inflammatory polyarthritis ([facility]) Dr. Hansen - Inflammatory polyarthropathy - Normocytic anemia - PE (pulmonary thromboembolism) ([facility]) 01/05/14 Bilat, extensive - Pulmonary [...] 248 11/03/2013 Prior Cardiac Workup: Last Echo: 2015: Normal LV function. No significant valvular abnormalities. EKG done on admission to our hospital shows sinus tachycardia. EKG done at [facility] shows sinus tachycardia. Subsequent EKG shows atrial fibrillation at 180 bpm. Impression/Recommendations 1. Paroxysmal atrial fibrillation Patient says she does not have any prior diagnosis of atrial fibrillation. She was in sinus tachycardia on admission but subsequently went into atrial fibrillation with rapid ventricular rate at [facility]. She was given a dose of IV [...] sign off. Patient can follow-up with her firearms inspector Dr. Uriostegui upon discharge. SIGNATURE: Duncan Martínez MD PATIENT NAME: Dia Mccullough DATE: June 05, 2018 TIME: 10:35 AM PAGER/CONTACT #: CASE MGT INIT Observed: 06/05/2018 Status: COMPLETED Source: [facility] 10:20 AM CLINIC OTHER CAMPUS REPOSITORY HNO ID: [id number] Author: Rosy (Rn) GAURANG Carreno Service: Care Management Author Type: Registered Nurse Type: Care Mgt Initial Assessment Filed: 06/05/2018 10:32 AM Note Text: CARE MANAGEMENT: ASSESSMENT AND DISCHARGE PLAN SERVICE DATE: 06/05/2018 SERVICE TIME: 10:20 AM PRIMARY CARE PHYSICIAN: Dr. Romero ADMISSION STATUS: Inpatient Needs Prior to Discharge: To Be Determined;Pharmacy Bedside Delivery MEDICAL: Patient/Slicing Machine Feeder Stated Goals: To return home to life [...] No Advance Directive: Current Advance Directive: None Ekg Tech Attempted to Assist with AD Completion: Yes [...] Wheelchair Has the Patient Been in a Chcf Facility in the Past 30 days? No [...] 0 I feel financially burdened by my soz-at-zszqbx expenses for my prescription medication: Disagree completely [...] OF CHOICE EXPLAINED: Financial Disclosure Provided Preference: [facility] POTENTIAL TRANSITION PLANS Home Home Care Patient independent at home alone prior to admission. Patient hopeful to return home at discharge. Patient requesting skilled HHC services. Patient's HHC choice is [facility]. [facility] notified. Will follow clinical course for further DC planning needs. SIGNATURE: Rosy Carreno RN PATIENT NAME: Dia Mccullough DATE: June 05, 2018 TIME: 10:20 AM PAGER/CONTACT #: [phone] HEMOGRAM/DIFF Collected: 06/05/2018 Status: F Source: [facility] 3:44 AM HEALTH SYSTEM REPOSITORY TYPE CODE [...] 0.71 LAB MONON(LOIN 0.27-0.70 thou/cmm C) Abs. [place] 0.30 LAB EOSN(LOINC 0.00-0.31 thou/cmm ) Abs. Eosin 0.03 LAB BASON(LOIN 0.01-0.08 thou/cmm C) Abs. Baso 0.01 Performed By: #### CBCD1 #### [address] [address] BASIC PANEL Collected: 06/05/2018 Status: F Source: [facility] 3:44 AM HEALTH SYSTEM REPOSITORY TYPE CODE [...] Gap 11 Performed By: #### P8 #### [place] [address] HISTORY PHYSICAL Observed: 06/05/2018 Status: COMPLETED Source: [place] 3:27 AM CLINIC OTHER CAMPUS REPOSITORY HNO ID: [id number] Author: Julio C Mcneal Service: General Internal Medicine Author Type: Physician Type: HANDP Filed: 06/05/2018 5:15 AM Note Text: CONSULT: MEDICAL HOSPITALIST SERVICE SERVICE DATE: 06/05/2018 SERVICE TIME: 3:27 AM REASON FOR CONSULT: Leechburg's disease, CKD REQUESTING PHYSICIAN: Cortes PRIMARY CARE PHYSICIAN: Rika Wheeler MD Subjective Ms. Mccullough is a 77 year old female with hx of Leechburg disease, DVT/PE, CKD stage 3, asthma, hypertension, chronic peripheral venous insufficiency, left leg hematoma, an intra-abdominal abscess 2/2 sigmoid diverticulitis, and recent C diff colitis. In September 2017, she was admitted for treatment of the intraabdominal abscess, which included drainage and antibiotics. Today she came to the [facility] ER complaining of diarrhea for the past [...] for abx recommendations with pt recently on CiproFelipeo for C diff. Our medical hospitalist service has been consulted to assist with the management of this patient's steroids and her CKD. In the ER, the patient was afebrile and tachycardic. She was 97-100% on RA. Labs are pending. FUNCTIONAL STATUS: Independent PAST MEDICAL HISTORY Diagnosis Date - Leechburg disease - Asthma - CKD (chronic kidney disease) stage 3, GFR 30-59 ml/min ([facility]) 11/28/2014 - Contact dermatitis and [...] HTN (hypertension) - Hypercholesterolemia - Inflammatory polyarthritis ([facility]) Dr. Hansen - Inflammatory polyarthropathy - Normocytic anemia - PE (pulmonary thromboembolism) ([facility]) 01/05/14 Bilat, extensive - Pulmonary [...] edema, chronic wounds to both LEs Neuro: relations director grossly intact, symmetrical, nonfocal DATA: Diagnostic [...] treatment with cipro, vanco; ID consulted 2. Leechburg's disease -- Will increase steroid coverage perioperatively [...] PROV NOTE Observed: 06/05/2018 Status: COMPLETED Source: [place] 1:51 AM CLINIC OTHER CAMPUS REPOSITORY HNO ID: [id number] Author: Candy Bronson DO Service: Emergency Medicine Author Type: Physician Type: ED Provider Notes Filed: 06/05/2018 1:55 AM Note Text: Attending Note I evaluated the patient and personally participated in the canales components. I agree with the resident's findings and plan as documented and have discussed the case and management of the patient's care with the resident. 77-year-old female presents from [facility] ED for surgical consultation due to pneumoperitoneum [...] her and that she was seen by firearms inspector but states that she was told she could follow up in [address] report and lab work from outside ED. residential property consultant has evaluated the patient. Currently awaiting the recommendations. The patient was given Zosyn at the outside ED as well. Candy Bronson DO 06/05/18 0155 ED PROV NOTE Observed: 06/05/2018 Status: COMPLETED Source: [place] 1:34 AM CLINIC OTHER CAMPUS REPOSITORY O ID: [id number] Author: Jared Estrada Service: Emergency Medicine Author Type: Resident Type: ED Provider Notes Filed: 06/05/2018 2:55 AM Note Text: Attestation signed by Candy Bronson DO at 06/09/2018 12:26 AM Signature: Candy Bronson DO Date: 06/09/2018 Time: 12:26 AM ED Provider Note Patient Name: Dia Mccullough SERVICE DATE: 06/05/18 History Patient presents with: Abscess: Pt transferred from [facility] ED for surgical consult for pneumoperitoneum, rectal perforation, rectal abscess, and new obset A-fib w/ RVR (on anticoagulation for hx PE/DVT). Pt originally presented to [facility] ED for c/o worsening diarrhea and rectal bleeding. Pt recently finished a course of abx for c-diff. HPI Patient is a 77 yo female with PMHX of diverticulitis, CKD, HTN, HLD, recent C. Diff infection who presents as a transfer from [facility] ED for a surgical consult. Patient reported diarrhea for 1 week. She had a CT performed [place] [facility] today which was significant for rectal perforation with pneumoperitoneum. Patient transferred here for surgical evaluation. Patient also noted to be in afib RVR and was given cardizem. Patient in NSR @ HR 110-120 on arrival. Patient endorsing left buttock pain, diarrhea. Patient denies abdominal pain, vomiting, fevers, SOB, CP. 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 Hansen - Inflammatory polyarthropathy - Normocytic anemia - PE (pulmonary thromboembolism) ([facility]) 01/05/14 Bilat, extensive - Pulmonary [...] of malignancy or thromboembolism.) Other Social History Social History Main Topics - Smoking status: Never Smoker - Smokeless tobacco: Never Used - Alcohol use No - Drug use: Unknown - Sexual activity: Not on file ALLERGIES [...] Upset Review of Systems Constitutional: Negative for chills, fatigue and fever. Eyes: Negative. Respiratory: Negative for cough, chest tightness, shortness of breath and wheezing. Cardiovascular: Negative for chest pain, palpitations and leg swelling. Gastrointestinal: Positive for diarrhea. Negative for abdominal pain, constipation, nausea and vomiting. Genitourinary: Negative for dysuria, urgency, vaginal bleeding, vaginal discharge and vaginal pain. Musculoskeletal: Negative for back pain, myalgias and neck pain. Left buttock pain. Skin: Negative. Neurological: Negative for syncope, weakness, light-headedness and headaches. Psychiatric/Behavioral: Negative. Physical Exam BP 158/85 Pulse 116 Temp (Src) 98.6 (Oral) Resp 21 Wt 160 lb (72.6kg) SpO2 99% Physical Exam Constitutional: She is oriented to person, place, and time. She appears well-developed and well-nourished. No distress. Well-appearing female in no acute distress. HENT: Head: Normocephalic and atraumatic. Eyes: Conjunctivae and EOM are normal. No scleral icterus. Neck: Normal range of motion. Neck supple. No JVD present. Cardiovascular: Normal rate, regular rhythm, normal heart sounds and intact distal pulses. No murmur heard. Pulmonary/Chest: Effort normal and breath sounds normal. No respiratory distress. Abdominal: Soft. Bowel sounds are normal. There is no tenderness. There is no guarding. Musculoskeletal: Normal range of motion. Tenderness to palpation and loculations noted along left buttock. No erythema. No induration. No fluctuance. Neurological: She is alert and oriented to person, place, and time. No cranial nerve deficit. Skin: Skin is warm and dry. She is not diaphoretic. Psychiatric: She has a normal mood and affect. Nursing note and vitals reviewed. Diagnostic Testing ED Labs Ordered and Reviewed - No data to display Procedures ED Course / Clinical Impression Clinical Impressions as of Jun 05 249 Perforation of rectum (HCC) Pneumoperitoneum MDM / Disposition / Plan MDM Patient is 69-year-old female presents to ED as a transfer for surgical evaluation. Initial vital signs stable. Patient well-appearing. Patient received 2 L of normal saline at [facility]. He is also given Zosyn. C. difficile PCR sent. Surgery consulted. Per Dr. pickering, no additional labs needed at this time. On reevaluation, patient was resting in her bed. She reported no abdominal pain but did endorse some nausea. Will order Zofran and an additional liter of fluids. I spoke with surgery who accepted the patient. Patient was admitted to Dr. Kolb in stable condition. The patient was ADMITTED TO: Regular nursing floor. Condition at time of disposition: stable SIGNATURE: DO Jared Varela (Res) Sean Resident 06/05/18 0254 Jared (Res) Sean Resident 06/05/18 0255 Candy Bronson DO 06/09/18 0026 ED NOTE Observed: 06/05/2018 Status: COMPLETED Source: [place] 1:00 AM [facility] REPOSITORY HNO ID: [id number] Author: Bj SargentRn) GAURANG Eid Service: Emergency Medicine Author Type: Registered Nurse Type: ED Notes Filed: 06/05/2018 1:00 AM Note Text: Patient's identity verified by patient stating name, Patient's identity verified by patient stating date, Patient's identity verified by hospital ID bracelet. Patient placed on classroom monitor, patient placed on non-invasive blood pressure monitor, patient placed on continuous pulse oximetry. Alarms set and on, patient tolerating monitoring. C. Observed: 06/05/2018 Status: F Source: [facility] DIFFICILE BY PCR 1:00 AM HEALTH SYSTEM REPOSITORY Test performed at [facility] NEGATIVE for Toxigenic C. difficile Performed By: #### CDIFX #### [place] [address] ED NOTE Observed: 06/05/2018 Status: COMPLETED Source: [place] 12:58 AM [facility] REPOSITORY HNO ID: [id number] Author: Maggie SargentRn) GAURANG Mcneill Service: Emergency Medicine Author Type: Registered Nurse Type: ED Notes Filed: 06/05/2018 12:58 AM Note Text: Radiology disc tubed to 110 station EKG Observed: 06/05/2018 Status: F Source: [place] 12:33 AM [facility] REPOSITORY NAME : DIA MCCULLOUGH PID : [id number] : 1940 Gender : Female Race : ORD : Procedure Date : Jun 05 2018 00:33:53 Edit Date : Jun 05 2018 03:08:43 Diagnosis:SINUS TACHYCARDIA WITH SHORT AR WITH PREMATURE SUPRAVENTRICULAR COMPLEXES LEFT AXIS DEVIATION ABNORMAL ECG WHEN COMPARED WITH ECG OF 09-OCT-2017 06:17, PREMATURE SUPRAVENTRICULAR COMPLEXES ARE NOW PRESENT NONSPECIFIC T WAVE ABNORMALITY HAS REPLACED INVERTED T WAVES IN LATERAL LEADS Confirmed by DO BRONSON JAMES P ([id number]) on 06/05/2018 3:08:39 AM Ventricular Rate : 121 BPM Atrial Rate : 121 BPM P-R Interval : 110 ms QRS Duration : 70 ms Q-T Interval : 330 ms QTC Calculation(Bezet) : 468 ms P Keiser : 16 degrees R Keiser : -42 degrees T Keiser : 52 degrees Test Reason : Location : 4 : [facility] 9 Overread By : DO BRONSON JAMES P Edited By : DO BRONSON JAMES P Referred By : , Acquired by : [id number], HISTORY PHYSICAL Observed: 06/05/2018 Status: COMPLETED Source: [place] 12:30 AM CLINIC OTHER CAMPUS REPOSITORY HNO ID: [id number] Author: Mono Pickering Service: General Surgery Author Type: Resident Type: [...] afib, hx of DVT/PE on eliquis, CKD, Leechburg disease on prednisone who presents with diarrhea [...] in the recent past. She presented to [facility] earlier this evening where labs were drawn, CT A/P w/ PO contrast obtained showed free air in pelvis c/f rectal perforation. AVSS except tachycardia (afib). Blood cx were sent. Given zosyn and transferred to [facility] Pt Has no prior abdominal surgeries [...] - Normocytic anemia - PE (pulmonary thromboembolism) ([facility]) 01/05/14 Bilat, extensive - Pulmonary [...] reviewed for today's visit: Outside chart from [facility] reviewed. WBC: 15.2 Hgb 10.8 K+ 4.2 [...] in a few days D/w senior resident medication assistant and attending, Dr Kolb Emergency General Surgery Service Pager: For questions or concerns Mon-Fri 6a-5p please page [phone]. After 5pm and on Weekends and Holidays, please page [phone] if in ICU or [phone] if on RNF. SIGNATURE: Mono Pickering MD PATIENT NAME: Dia Mccullough DATE: June 05, 2018 TIME: 12:30 AM PAGER/CONTACT #: [id number] ED NOTE Observed: 06/05/2018 Status: COMPLETED Source: [place] 12:24 AM CLINIC OTHER CAMPUS REPOSITORY HNO ID: [id number] Author: Verito (Rn) GAURANG Barboza Service: (none) Author Type: Registered Nurse Type: ED Notes Filed: 06/05/2018 12:24 AM Note Text: Bed: 09-ED Expected date: 06/04/18 Expected time: 11:25 PM Means of arrival: Comments: [facility] transfer URINALYSIS, COMPLETE Collected: 06/04/2018 Status: F Source: [place] 10:53 PM [facility] Order Comment: How was Urine Obtained? COLLECTIONS ASSISTANT TO SPECIFY TYPE CODE TESTS RESULT OUT [...] 0-5 SEEN Performed By: #### L400.0001 #### [facility] [address] [place], [address] TROPONIN-I Collected: 06/04/2018 Status: F Source: [place] 10:35 PM [facility] [place] TYPE CODE TESTS RESULT OUT OF RANGE REFERENCE UNITS LAB L501.4010 <0.045 ng/mL High 0.064 TROPONIN-I Result Comment: TROPONIN-I EXPECTED VALUES <0.045 Negative 0.045 - 0.590 Consistent with Cardiac Damage > OR = 0.600 Critical Value Not every elevated troponin is indicative of MO. These values should be used with clinical judgement in examining the patient's clinical picture for diagnosis. To establish a diagnosis of MO versus myocardial injury, there must be a demonstrated rise and/or fall in the troponin values, in addition to ischemic symptoms, EKG changes, new regional wall motion abnormality, and/or angiographical evidence. PLEASE NOTE: REFERENCE RANGES EDITED 17 Performed By: #### L501.4010 #### [facility] [address] [place], [address] Observed: 06/04/2018 Status: F Source: [place] CULTURE, BLOOD (WB) 10:35 PM [facility] BC No growth in 5 days. Performed By: #### M200.1000 #### [facility] [address] [place], [place], [address] EMERGENCY DEPARTMENT Observed: 06/04/2018 Status: F Source: [place] SUMMARY 10:19 PM [facility] Medical Records Department [address] [place] [address] Emergency Department Summary 06/04/18 1825 MR#: [id number] Acct: [id number] Name: DIA MCCULLOUGH Rep #: [id number] : 1940 77 From: Meme Echevarria MD [...] She is on prednisone for history of Collin's disease. She denies abdominal pain. Physical Examination: [...] IV. She remained hemodynamically stable. She requests [facility] for transfer. Discussed with [facility]. Disposition: Transfer [facility] Impression: Pneumoperitoneum, rectal perforation, rectal abscess, acute on chronic kidney injury, new onset A. fib with RVR This note was generated with [employer] dictation software. It may contain incorrect words, [...] your Primary Care Provider. Call [facility] ([phone]) or report to the closest Emergency Room. Call 911 if necessary. 06/04/18 2210 <Electronically signed by Meme Echevarria MD> Date Meme Echevarria MD Cosigner Signature (If Indicated): Date CC: Jared Romero MD ABDOMEN/PEL W ORAL CONT Observed: 06/04/2018 Status: F Source: [facility] 6:54 PM [facility] Imaging Services [address] [place] [address] Abdomen/Pel W ORAL Cont Only MR#: [id number] Acct: [id number] Name: DIA MCCULLOUGH Rep #: [id number] : 1940 F 77 From: Amy Little MD PCP: Jared Romero MD Status: REG ER Study: Abdomen/Pel W ORAL Cont Only Date of Exam: 06/04/18 Exam# [id number] Ordering Dr: Meme Echevraria MD []STUDY: CT ABDOMEN AND PELVIS WITHOUT [...] CC: Meme Echevarria MD; Jared Romero MD Assistant Softball Coach: Signed BASIC METABOLIC Collected: 06/04/2018 Status: F Source: [place] PROFILE ([facility]) 6:35 PM [facility] TYPE CODE TESTS RESULT OUT OF [...] GAP 10 Performed By: #### L500.2500 #### [facility] [address] [place], [address] CBC W/DIFF, AUTOMATED Collected: 06/04/2018 Status: F Source: [place] 6:35 PM [facility] TYPE CODE TESTS RESULT OUT OF [...] 1+ ANISOCYTOSIS Performed By: #### L100.0100 #### [facility] [address] [place], [address] CHEST 1 VIEW Observed: 06/04/2018 Status: F Source: [place] (PORTABLE) 6:19 PM [facility] REPOSITORY [facility] Imaging Services [address] [place] [address] Chest 1 View (Portable) MR#: [id number] Acct: [id number] Name: DIA MCCULLOUGH Rep #: [id number] : 1940 F 77 From: Amy Little MD PCP: Jared Romero MD Status: REG ER Study: Chest 1 View (Portable) Date of Exam: 06/04/18 Exam# [id number] Ordering Dr: Meme Echevarria MD STUDY: X-RAY [...] CC: Meme Echevarria MD; Jared Romero MD Assistant Softball Coach: Signed CBC W/DIFF, AUTOMATED Collected: 05/23/2018 Status: F Source: [place] 3:09 PM [facility] TYPE CODE TESTS RESULT OUT OF [...] By: #### L100.0100, L503.6075, L503.6150, L503.6550 #### [facility] [address] [place], [address] IRON BINDING Collected: 05/23/2018 Status: F Source: [facility] 3:09 PM [facility] TYPE CODE TESTS RESULT OUT OF RANGE REFERENCE UNITS LAB L503.6075 250-450 ug/dL Normal TIBC 265 Performed By: #### L100.0100, L503.6075, L503.6150, L503.6550 #### [facility] [address] [place], [address] IRON Collected: 05/23/2018 Status: F Source: [place] 3:09 PM [facility] TYPE CODE TESTS RESULT OUT OF RANGE REFERENCE UNITS LAB L503.6150 50-170 ug/dL Normal IRON 50 Performed By: #### L100.0100, L503.6075, L503.6150, L503.6550 #### [facility] [address] [place], [address] FERRITIN Collected: 05/23/2018 Status: F Source: [place] 3:09 PM [facility] TYPE CODE TESTS RESULT OUT OF RANGE REFERENCE UNITS LAB L503.6550 8-252 ng/mL Normal FERRITIN 205 Performed By: #### L100.0100, L503.6075, L503.6150, L503.6550 #### [facility] [address] [place], [address] COMPREHENSIVE METABOLIC Collected: 05/23/2018 Status: F Source: [facility] 3:09 PM [facility] TYPE CODE TESTS RESULT OUT OF [...] GAP 12 Performed By: #### L500.4050 #### [facility] [address] [place], [address] BASIC METABOLIC Collected: 05/10/2018 Status: F Source: [place] PROFILE (BMP) 1:59 PM [facility] TYPE CODE TESTS RESULT OUT OF [...] 11 Performed By: #### L500.2500, L501.5200 #### [facility] [address] [facility] [place], [address] MAGNESIUM Collected: 05/10/2018 Status: F Source: [place] 1:59 PM [facility] TYPE CODE TESTS RESULT OUT OF RANGE REFERENCE UNITS LAB L501.5200 1.6-2.6 mg/dL Normal MG 1.9 Performed By: #### L500.2500, L501.5200 #### [facility] [address] [place], [address] EMERGENCY DEPARTMENT Observed: 05/08/2018 Status: F Source: [place] SUMMARY 7:03 AM [facility] Medical Records Department [address] [place] [address] Emergency Department Summary 05/06/18 1618 MR#: [id number] Acct: [id number] Name: DIA MCCULLOUGH Rep #: [id number] : 1940 77 From: Bj Chan DO [...] PE retention and hypercholesterolemia as well as Leechburg's disease. Physical Examination: Temperature 99.8 orally heart [...] 3. Dehydration This note was generated with Chasqui Bus dictation software. It may contain incorrect words, [...] your Primary Care Provider. Call [facility] ([phone]) or report to the closest Emergency Room. Call 911 if necessary. 05/08/18 0703 <Electronically signed by Bj Chan DO> Date Bj Chan DO Cosigner Signature (If Indicated): Date CC: Jared Romero MD DISCHARGE SUMMARY Observed: 05/07/2018 Status: F Source: [place] 6:04 PM [facility] Medical Records Department [address] [place] [address] Discharge Summary 05/07/18 1400 MR#: [id number] Acct: [id number] Name: DIA MCCULLOUGH Rep #: [id number] : 1940 77 From: Jodi Holden [employer] PCP: Jared Romero MD Status: DIS ARIANA Y Location: [place] [address] <Jodi Holden - Last Filed: 05/07/18 14:09> [...] Problems (Last Reviewed 05/04/18 @ 12:51 by Wolfgang Garcia) Non-rheumatic aortic stenosis (Chronic) Hypertensive nephropathy (Chronic) Hyperlipidemia (Chronic) Atherosclerosis of coronary artery of [place] heart without angina pectoris (Chronic) Bilateral pulmonary embolism (Chronic) DVT (deep venous thrombosis) (Chronic) Stage III chronic kidney disease (Chronic) Addisons disease (Chronic) Hospital Course and Treatment Imaging Results: Diagnostic Data Chest X-Ray 05/06/18 14:45 IMPRESSION: No airspace consolidation or pleural effusion. Stable exam since 03/02/2018 Electronically Signed: Misael Jiménez MD at 15:23 EST , Service support , Consultations 05/06/18 19:55 Consult: Onc/Wound/wrapper selector Routine Comment: Reason for Consult:: Right lower [...] 7. History of DVT/PE- on eliquis. 8. 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 9. Hypertension-stable, home [...] all that apply): None applicable <Mansoor Llamas - Last Filed: 05/07/18 18:04> Discharge Date and Diagnosis - Secondary Discharge Diagnosis Chronic Problems (Last Reviewed 05/04/18 @ 12:51 by Wolfgang Garcia) Non-rheumatic aortic stenosis (Chronic) Hypertensive nephropathy (Chronic) Hyperlipidemia (Chronic) Atherosclerosis of coronary artery of [place] heart without angina pectoris (Chronic) Bilateral pulmonary embolism (Chronic) DVT (deep venous thrombosis) (Chronic) Stage III chronic kidney disease (Chronic) Addisons disease (Chronic) Hospital Course and Treatment Consultations 05/06/18 19:55 Consult: Onc/Wound/wrapper selector Routine Comment: Reason for Consult:: Right lower leg ulcer Summary of Care Provided: This patient was seen in conjunction with [employer] HOUSE BROKERJodi. I have independently interviewed and examined the [...] incompetence. I have discussed my assessment with [employer] HOUSE BROKERJodi and orders have been reviewed. [] Discharge [...] - Nasopharyngeal RSV A Code Visit OBSV Jose R CARR M: [id number] Observation care discharge 05/07/18 1410 <Electronically signed by Jodi CHAVEZ> Date Jodi Holden [employer] 05/07/18 1804<Electronically signed by Mansoor Llamas MD> Cosigner Signature (if applicable): Date Mansoor Llamas MD CC: KATHY Holden; Jared Romero MD; Mansoor Llamas MD Signed DISCHARGE INSTRUCTION Observed: 05/07/2018 Status: F Source: [place] 2:00 PM [facility] Medical Records Department [address] [place] [address] Instructions for Home/Discharge Instructions 05/07/18 1356 MR#: [id number] Acct: [id number] Name: DIA MCCULLOUGH Rep #: [id number] : 1940 77 From: Jodi CHAVEZ PCP: Jared Romero MD Status: ADM ARIANA [...] AND PHYSICAL Observed: 05/06/2018 Status: F Source: [place] EXAM 8:17 PM [facility] Medical Records Department [address] [place] [address] History and Physical 05/06/18 1707 MR#: [id number] Acct: [id number] Name: DIA MCCULLOUGH Rep #: [id number] : 1940 77 From: Jodi CHAVEZ PCP: Jared Romero MD Status: ADM ARIANA Y Location: [place] [address] ADDENDUM by Akira Adams DO on 05/06/18 at 2017 Code Visit Patient was seen and examined in the emergency room at [facility] independently of Jodi Holden today, she came [...] for now, she has a history of Leechburg's disease. I have reviewed Jodi Holden's history and physical including her assessment and medical plan of care and endorse it. OBSV E AND M: [id number] Initial observation care L3 05/06/182016 <Electronically signed by Akira Adams DO> Date Akira Adams DO cc: KATHY Holden; Jared Romero MD; Akira Adams DO * Signed Problem List (1) Bronchitis Status: Acute (2) Non-rheumatic aortic stenosis Status: Chronic (3) Hypertensive nephropathy Status: Chronic (4) Hyperlipidemia Status: Chronic Qualifiers: Hyperlipidemia type: pure hypercholesterolemia Qualified Code(s): E78.00 - Pure hypercholesterolemia, unspecified; E78.0 - Pure hypercholesterolemia (5) Atherosclerosis of coronary artery of [place] heart without angina pectoris Status: Chronic (6) [...] in 2012 and PE in September 2017, Leechburg's disease, hypertension, hyperlipidemia, history of bowel perforation, [...] Problems (Last Reviewed 05/04/18 @ 12:51 by Wolfgang Garcia) Non-rheumatic aortic stenosis (Chronic) Hypertensive nephropathy (Chronic) Hyperlipidemia (Chronic) Atherosclerosis of coronary artery of [place] heart without angina pectoris (Chronic) Bilateral pulmonary embolism (Chronic) DVT (deep venous thrombosis) (Chronic) Stage III chronic kidney disease (Chronic) Addisons disease (Chronic) Medical History: Medical History (Last Reviewed 05/04/18 @ 12:51 by Wolfgang Garcia) Non-rheumatic aortic stenosis (Chronic) I35.0 Hypokalemia (Chronic) E87.6 High blood pressure with chronic kidney disease (Chronic) I12.9 Hypertensive nephropathy (Chronic) I12.9 Hyperlipidemia (Chronic) E78.5 Atherosclerosis of coronary artery of [place] heart without angina pectoris (Chronic) I25.10 Bilateral [...] surgery. 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 Acute bronchitis, failed [...] 7. History of DVT/PE- on eliquis. 8. 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 9. Hypertension-stable, home metoprolol regimen increased to 25 mg twice daily. 10. Hyperlipidemia-not on statin. 11. History of bowel perforation/intra-abdominal abscess/history of GI bleed-continue PPI DVT prophylaxis- Eliquis. This patient was seen by KATHY Beltran under the supervision of Dr. Adams. 05/06/18 1744 <Electronically signed by Jodi Holden [employer]> Date Jodi Holden [employer] 05/06/182009<Electronically signed by Akira Adams DO> Cosigner Signature: Date (if applicable) Akira Adams DO CC: [employer] Jodi Holden; Jared Romero MD; Akira Adams DO Signed Observed: 05/06/2018 Status: F Source: [place] RESPIRATORY PANEL 8:10 PM [facility] RP PANEL Normal Reference Range = Not Detected Copy of report sent to Infection Control Printer [id number] 05/06/18 2255 JACK. RESULTS CALLED TO GAURANG VAZQUEZ 05/06/18 063Stepahnie Jacobo. REPORT READ BACK BY SAME. ADENOVIRUS [...] RSV A Performed By: #### M100.638 #### [facility] [address] [place], [place], [address] STOOL Observed: 05/06/2018 Status: F Source: [place] LACTOFERRIN/WBC 4:42 PM [facility] [place] Order Date: 05/06/18 Stool Lacto/WBC Normal Reference Range = Negative Fecal WBC Lactoferrin Positive: Fecal WBC Lactoferrin present Performed By: #### M100.0605 #### [facility] [address] [facility], [address] Observed: 05/06/2018 Status: F Source: [place] STOOL OCCULT BLOOD 4:42 PM [facility] Order Date: 05/06/18 STOB iFOB Occult Blood Positive ORGANISM 1: OCCULT BLOOD POSITIVE Performed By: #### M100.7900 #### [facility] [address] [place], [address] Observed: 05/06/2018 Status: C Source: [place] CDIFF (MOLECULAR) 4:42 PM [facility] [place] Is the patient receiving laxatives? N New/unexplained onset of 3 or more stools in past 24 hrs? Y Order Date: 05/06/18 Cdiff-Molecular Normal Reference Range = Negative RESULTS CALLED TO GAURANG JAMES 05/06/18 6492 Jodi Jacobo. REPORT READ BACK BY SAME. Copy of report sent to Infection Control Printer [id number] 05/06/18 0101 JACK. C. Diff DNA Positive-Toxigenic C. Difficile DNA Detected NAAT METHOD Testing was performed using nucleic acid amplification ORGANISM 1: Toxigenic C. difficile DNA Performed By: #### M100.6796 #### [facility] [address] [place], [place], [address] Observed: 05/06/2018 Status: F Source: [place] ENTERIC PATHOGEN 4:42 PM [facility] PAN[place] STOOL REPOSITORY Order Date: 05/06/18 EP [...] Not Detected Performed By: #### M100.637 #### [facility] [address] [place], [address] URINALYSIS, COMPLETE Collected: 05/06/2018 Status: F Source: [place] 4:23 PM [facility] Order Comment: How was Urine Obtained? COLLECTIONS ASSISTANT TO SPECIFY TYPE CODE TESTS RESULT OUT [...] Normal AMORPHOUS Performed By: #### L400.0001 #### [facility] [place], [address] Observed: 05/06/2018 Status: F Source: [place] CULTURE, URINE 4:23 PM [facility] [place] Urine Culture ORGANISM 1: Staphylococcus epidermidis [place] Count >100,000 Staphylococcus epidermidis: REACTION Benzylpenicillin NF >=0.5 R Cefoxitin *NF + Inducable Clindamycin [place] + Gentamicin $ <=0.5 S Levofloxacin $ >=8 R Linezolid $$$$ 1 S Nitrofurantoin $ <=16 S Oxacillin NF >=4 R Rifampin $$ <=0.5 S Tetracycline NF 2 S Vancomycin $ 1 S (NF) indicates non-formulary drug at [facility]. Approval by Infectious Disease Specialist required before non-formulary drugs may be ordered and/or dispensed. * CLSI guidelines does not recommend testing of cephalosporins. This interpretation is deduced from Beta-lactam/penicillin results. Performed By: #### M100.0650 #### [facility] [address] [place], [address] Observed: 05/06/2018 Status: F Source: [place] INFLUENZA A+B (RAPID 2:35 PM [facility] REPOSITORY FLU A/B Rapid Negative test results should be confirmed with FLU PANEL MOLECULAR if indicated. Influenza Ag, Direct Presumptive NEGATIVE for Influenza A/B Antigen (See Note) Performed By: #### M101.0101 #### [facility] [address] [facility], [address] CBC W/DIFF, AUTOMATED Collected: 05/06/2018 Status: F Source: [place] 2:19 PM [facility] [place] TYPE CODE TESTS RESULT OUT OF [...] ANISOCYTOSIS 1+ Performed By: #### L100.0100 #### [facility] [address] [facility] [address] [place], [place], [address] PROTHROMBIN TIME W/INR Collected: 05/06/2018 Status: F Source: [place] 2:19 PM [facility] [place] TYPE CODE TESTS RESULT OUT OF RANGE REFERENCE UNITS LAB L300.4150 11.7-14.9 SECONDS High PROTIME 15.1 LAB L300.4200 Normal INR 1.2 Performed By: #### L300.3900, L300.4310 #### [facility] [address] [place], [place], [address] PARTIAL THROMBOPLAST Collected: 05/06/2018 Status: F Source: [place] TIME 2:19 PM [facility] [place] TYPE CODE TESTS RESULT OUT OF RANGE REFERENCE UNITS LAB L300.4310 24.1-36.2 Seconds Normal PTT 30.0 Performed By: #### L300.3900, L300.4310 #### [facility] [address] [facility] [address] [place], [place], [address] COMPREHENSIVE METABOLIC Collected: 05/06/2018 Status: F Source: [place] PROFIL 2:19 PM [facility] [place] TYPE CODE TESTS RESULT OUT OF [...] 7 Performed By: #### L500.4050, L501.4010 #### [facility] [address] [place], [place], [address] TROPONIN-I Collected: 05/06/2018 Status: F Source: [place] 2:19 PM [facility] [place] TYPE CODE TESTS RESULT OUT OF RANGE REFERENCE UNITS LAB L501.4010 <0.045 ng/mL Normal < 0.015 TROPONIN-I Result Comment: TROPONIN-I EXPECTED VALUES <0.045 Negative 0.045 - 0.590 Consistent with Cardiac Damage > OR = 0.600 Critical Value Not every elevated troponin is indicative of MO. These values should be used with clinical judgement in examining the patient's clinical picture for diagnosis. To establish a diagnosis of MO versus myocardial injury, there must be a demonstrated rise and/or fall in the troponin values, in addition to ischemic symptoms, EKG changes, new regional wall motion abnormality, and/or angiographical evidence. PLEASE NOTE: REFERENCE RANGES EDITED 17 Performed By: #### L500.4050, L501.4010 #### [facility] [address] [facility], [address] LACTIC ACID Collected: 05/06/2018 Status: F Source: [place] 2:19 PM [facility] Order Comment: Yes/No query for Sepsis Lactate Rule Y TYPE CODE TESTS RESULT OUT OF RANGE REFERENCE UNITS LAB L503.6005 0.4-2.0 mmol/L Normal LACTIC ACID 1.5 Performed By: #### L503.6005 #### [facility] [address] [facility], [address] Observed: 05/06/2018 Status: F Source: [place] CULTURE, BLOOD (WB) 2:19 PM [facility] BC No growth in 5 days. Performed By: #### M200.1000 #### [facility] [address] [place], [address] Observed: 05/06/2018 Status: F Source: [place] CULTURE, BLOOD (WB) 2:19 PM [facility] BC No growth in 5 days. Performed By: #### M200.1000 #### [facility] [address] [facility] [place], [address] CHEST PA AND LATERAL Observed: 05/06/2018 Status: F Source: [place] 1:52 PM [facility] REPOSITORY [facility] Imaging Services [address] [place] [address] Chest PA and Lateral MR#: [id number] Acct: [id number] Name: DIA MCCULLOUGH Rep #: [id number] : 1940 F 77 From: Misael Jiménez MD PCP: Jared Romero MD Status: REG ER Study: Chest PA and Lateral Date of Exam: 05/06/18 Exam# [id number] Ordering Dr: Bj Chan DO STUDY: X-RAY [...] CC: Bj Chan DO; Jared Romero MD Assistant Softball Coach: Signed URGENT CARE VISIT Observed: 05/04/2018 Status: F Source: [place] REPORT 1:21 PM [facility] [address] [place] [address] [address] [place] [address] OFFICE VISIT Date of Service: 05/04/18 MR#: [id number] Acct: [id number] Name: DIA MCCULLOUGH Rep #: [id number] : 1940 Provider: Obey DUNCAN Age/Sex: 77/F Location[facility] Status: Signed Intake Vital Signs05/04/18 Body Mass Index (BMI) 30.8 05/04/18 Height 5 ft 05/04/18 Weight: 158 lb 05/04/18 Body Mass Index (BMI) 30.8 05/04/18 Blood Pressure 114/78 05/04/18 Respiratory Rate 14 Intake Visit Reasons: THINKS SHE HAS THE FLU Chief Complaint: Productive cough Flatcar Whacker Required: No Accompanied by: SELF Is patient [...] DAILY #7 tab 05/04/18 [Rx Confirmed 05/04/18] [facility] Medical History Non-rheumatic aortic stenosis (Chronic) Hypokalemia (Chronic) High blood pressure with chronic kidney disease (Chronic) Hypertensive nephropathy (Chronic) Hyperlipidemia (Chronic) Atherosclerosis of coronary artery of [place] heart without angina pectoris (Chronic) Bilateral pulmonary [...] with similar complaints. She has taken no ffxi-jxa-vmghept products to assist with her symptom. She [...] the above. This note was generated with walkbyation software. It may contain incorrect words, spelling, and punctuation that were not noted in checking the note before signing. Medications New: Coding Level of Care Code Off vis,est,level 3 05/04/18 1321 <Electronically signed by Obey DUNCAN> Date Obey DUNCAN Cosigner Signature: Date (if applicable) CC: BASIC METABOLIC Collected: 03/28/2018 Status: F Source: [place] PROFILE (BMP) 2:31 PM [facility] TYPE CODE TESTS RESULT OUT OF [...] Normal GAP 10 Performed By: #### L500.2500, L503.6010, L503.9013, L503.6550, L100.0100 #### [facility] [address] [place], [address] IRON BINDING Collected: 03/28/2018 Status: F Source: [place] [facility] 2:31 PM [facility] TYPE CODE TESTS RESULT OUT OF RANGE REFERENCE UNITS LAB L503.6075 250-450 ug/dL Normal TIBC 311 Performed By: #### L500.2500, L503.6075, L503.6150, L503.6550, L100.0100 #### [facility] [address] [place], [address] IRON Collected: 03/28/2018 Status: F Source: [place] 2:31 PM [facility] TYPE CODE TESTS RESULT OUT OF RANGE REFERENCE UNITS LAB L503.6150 50-170 ug/dL Low IRON 30 Performed By: #### L500.2500, L503.6075, L503.6150, L503.6550, L100.0100 #### [facility] [address] [place], [address] FERRITIN Collected: 03/28/2018 Status: F Source: [place] 2:31 PM [facility] TYPE CODE TESTS RESULT OUT OF RANGE REFERENCE UNITS LAB L503.6550 8-252 ng/mL Normal FERRITIN 32 Performed By: #### L500.2500, L503.6075, L503.6150, L503.6550, L100.0100 #### [facility] [address] [place], [address] CBC W/DIFF, AUTOMATED Collected: 03/28/2018 Status: C Source: [place] 2:31 PM [facility] Order Comment: PLEASE DO A SMEAR [...] 1000 PATH REV previously reported as: September Performed By: #### L500.2500, L503.6075, L503.6150, L503.6550, L100.0100 #### [facility] [address] [place], [address] RENAL PROFILE Collected: 03/15/2018 Status: F Source: [place] 1:45 PM [facility] TYPE CODE TESTS RESULT OUT OF [...] CO2 26.0 Performed By: #### L500.3600 #### [facility] [address] [place], [address] CBC-COMPLETE BLOOD CNT Collected: 03/15/2018 Status: F Source: [place] NO DIFF 1:45 PM [facility] TYPE CODE TESTS RESULT OUT OF [...] MPV 9.2 Performed By: #### L100.0500 #### [facility] [address] [place], [address] PROTEIN+CREATININE Collected: Status: F Source: [place] RATIO,URINE 03/15/2018 1:45 PM [facility] TYPE CODE TESTS RESULT OUT OF RANGE REFERENCE UNITS LAB L501.1200 NO RANGE EST. mg/dL Normal UR CREAT 129.00 LAB L501.1930 <11.9 mg/dL High 18.4 PROTEIN,UR.R AN. LAB L501.1940 0-200 mg/g CRE Normal PROT:CRE 143 RATIO Performed By: #### L501.0900 #### [facility] [address] [place], [place], [address] VITAMIN D,25 HYDROXY Collected: 03/15/2018 Status: F Source: [place] 1:45 PM [facility] TYPE CODE TESTS RESULT OUT OF RANGE REFERENCE UNITS LAB L506.1000 29.95-100.01 ng/mL Normal Vitamin D 44.4 25-OH Result Comment: Vitamin D 25(OH) Status Range Deficiency <20 ng/mL (50nmol/L) Insuffciency 20 - 30 ng/mL (50 - 75 nmol/L) Sufficiency 30 - 100 ng/mL (75 - 250 nmol/L) Toxicity >100 ng/mL (>250 nmol/L) Performed By: #### L506.1000 #### [facility] [address] [place], [place], [address] PTHIN Collected: 03/15/2018 Status: F Source: [place] 1:45 PM [facility] TYPE CODE TESTS RESULT OUT OF RANGE REFERENCE UNITS LAB L509.1000 18.4-80.1 pg/mL Normal PTHIN 60.2 Performed By: #### L509.1000 #### [facility] [address] [place], [address] CNCO Observed: 03/03/2018 Status: COMPLETED Source: [place] 12:00 AM CLINIC OTHER CAMPUS REPOSITORY Letter Text Kendrick Mark MD Cardiac, Thoracic AND Church History Professor [place], [place] [address] [email or web address] Dia Mccullough Page 1 of March 03, 2018 Dia Mccullough [address] [facility] [address] [address] 1940 Dear Dia Mccullough, We missed seeing you for your scheduled appointment with Dr. Mark on 02/24/18. Our goal is to offer the best possible care to our patients, so we are concerned when you are unable to keep a scheduled appointment. Please call us at [phone] so that we can reschedule your appointment for a day and time that will work for you. If you find it difficult to keep your appointment, please notify our office at least 24 hours in advance so that we may reschedule your appointment. We are glad that you have chosen Cardiac, Thoracic AND Church History Professor for your cardiovascular needs and hope to continue serving you in the future. Sincerely, Kendrick Mark MD (Signed electronically to expedite mailing) THORACIC SPINE 2 Observed: 03/02/2018 Status: F Source: [place] VIEWS 12:21 PM [facility] Imaging Services [address] [place] [address] Thoracic Spine 2 Views MR#: [id number] Acct: [id number] Name: JAMELDIA Mauro Rep #: [id number] : 1940 F 77 From: Mike He[place] PCP: Jared Romero MD Status: REG CLI Study: Thoracic Spine 2 Views Date of Exam: 03/02/18 Exam# [id number] Ordering Dr: Jared Romero MD STUDY: X-RAY [...] Service support , CC: Jared Romero MD Assistant Softball Coach: Signed CHEST PA AND LATERAL Observed: 03/02/2018 Status: F Source: [place] 12:21 PM [facility] Imaging Services [address] [place] [address] Chest PA and Lateral MR#: [id number] Acct: [id number] Name: DIA MCCULLOUGH Rep #: [id number] : 1940 F 77 From: Derrell Gualberto JOYCE PCP: Jared Romero MD Status: REG CLI Study: Chest PA and Lateral Date of Exam: 03/02/18 Exam# [id number] Ordering Dr: Jared Romero MD STUDY: X-RAY [...] Service support , CC: Jared Romero MD Assistant Softball Coach: Signed L/S SPINE MIN 4 Observed: 03/02/2018 Status: F Source: [place] VIEWS 12:21 PM [facility] Imaging Services [address] [place] [address] L/S Spine Min 4 Views MR#: [id number] Acct: [id number] Name: DIA MCCULLOUGH Rep #: [id number] : 1940 F 77 From: Mike [place] PCP: Jared Romero MD Status: REG CLI Study: L/S Spine Min 4 Views Date of Exam: 03/02/18 Exam# [id number] Ordering Dr: Jared Romero MD STUDY: X-RAY [...] Service support , CC: Jared Romero MD Assistant Softball Coach: Signed ECHOCARDIOGRAM COMPLETE Observed: 02/23/2018 Status: F Source: [place] 7:22 AM [facility] Cardiovascular Services [address] [place] [address] Echo Complete 02/22/18 1406 MR#: [id number] Acct: [id number] Name: DIA MCCULLOUGH Rep #: [id number] : 1940 77 From: Jackson Uriostegui MD Attending Dr: Jackson Uriostegui MD Status: REG CLI Ordering Dr: Jackson Uriostegui MD Date: 02/22/18 Location: [facility] Sex: F C Admitted: Procedure This was [...] Referring Physician: Jared Romero Performed By: Roxana Mckeon RDCS, RVT 02/23/18721 Date Jackson Uriostegui MD CC: Jackson Uriostegui MD; Jared Romero MD Date Dictated: 02/22/18 1406 Date Transcribed: 02/23/18721 Assistant Softball Coach: Signed URGENT CARE VISIT Observed: 02/16/2018 Status: F Source: [place] REPORT 6:00 PM [address] [address] [place] [address] OFFICE VISIT Date of Service: 02/16/18 MR#: [id number] Acct: [id number] Name: DIA MCCULLOUGH Rep #: [id number] : 1940 Provider: Obey DUNCAN Age/Sex: 77/F Location[facility] Status: Signed Intake Vital Signs02/16/18 Height 5 [...] mg PO BID 02/15/18 [History Confirmed 02/16/18] [facility] Medical History Hypokalemia (Chronic) High blood pressure with chronic kidney disease (Chronic) Hypertensive nephropathy (Chronic) Hyperlipidemia (Chronic) Atherosclerosis of coronary artery of [place] heart without angina pectoris (Chronic) Bilateral pulmonary [...] patient notes she has a follow-up with firearms inspector for a or bilateral lower extremity ultrasounds [...] the above. This note was generated with [employer] dictation software. It may contain incorrect words, spelling, and punctuation that were not noted in checking the note before signing. Coding Level of Care Code Off vis,est,level 3 Diagnoses Laceration of right lower extremity S81.811A 02/16/18 1800 <Electronically signed by Obey DUNCAN> Date Obey DUNCAN Cosigner Signature: Date (if applicable) CC: CARDIOLOGY VISIT Observed: 02/15/2018 Status: F Source: [place] REPORT 1:47 PM [facility] [address] [place] [address]. [address] [place] [address] OFFICE VISIT Date of Service: 02/15/18 MR#: [id number] Acct: [id number] Name: DIA MCCULLOUGH Rep #: [id number] : 1940 Provider: Jackson Uriostegui MD Age/Sex: 77/F Location: [facility] Status: Signed HPI HPI Chief Complaint: Initial visit. Details: DIA MCCULLOUGH, is a 77 F who presents to the office today for an initial visit. She is a lady with a history of adrenal insufficiency hyperlipidemia previous deep vein thrombosis and pulmonary embolism in September 2017 as well as chronic kidney disease. She says that she was in the hospital in [place] a number of months ago and had complained of some dizziness and was noted to have some irregular heartbeat and they felt that she needed to see a firearms inspector. She has not had any sustained palpitations. She previously was treated for hypertension with a beta-ab which was increased. She has been compliant with all her medications. She apparently had an echocardiogram done in 2016 the results of which are not immediately available to us. She had been in [place] with sepsis secondary to bowel perforation was [...] mg PO BID 02/15/18 [History Confirmed 02/15/18] [facility] Medical History Hypokalemia (Chronic) High blood pressure with chronic kidney disease (Chronic) Hypertensive nephropathy (Chronic) Hyperlipidemia (Chronic) Atherosclerosis of coronary artery of [place] heart without angina pectoris (Chronic) Bilateral pulmonary [...] Orders Orders: Follow Up 6 Months ([facility] Coding Level of Care Code Off vis,new,level [...] PELVIS W/O Observed: 02/09/2018 Status: F Source: [facility] [facility] 1:46 PM [facility] REPOSITORY Performed at [facility] APPROVED BY: Timothy Rush MD EXAMINATION: CT [...] NURSING PROG Observed: 02/09/2018 Status: COMPLETED Source: [place] 12:17 PM [facility] OTHER CAMPUS REPOSITORY HNO ID: [id number] Author: Katia (Rn) GAURANG Miller Service: ASSESSMENT Author Type: Registered Nurse Type: Nursing Progress Note Filed: 02/09/2018 1:48 PM Note Text: 1 1215 patient admitted to [facility], pre procedure teaching at bedside. VSS Review of medications and moderate sedation with patient. 1350 patient return to [facility], procedure cancel No fluid to remove. 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] Perforated bowel (HCC) [K63.1] Leechburg disease [E27.1] Intra-abdominal abscess (HCC) [K65.1] Traumatic [...] basenames: K,HCT Progress Notes (MOLINA AG AKYOHAN PO): Katarzyna Szymanski Sec 01/25/2018 11:35 AM Signed [...] Status: F Source: [place] CONTRAST 1:30 PM [facility] Imaging Services [address] [place] [address] Abdomen/Pelvis WITH Contrast MR#: [id number] Acct: [id number] Name: DIA MCCULLOUGH Rep #: [id number] : 1940 F 77 From: Kanwal Gutierrez MD PCP: Jared Romero MD Status: REG CLI Study: Abdomen/Pelvis WITH Contrast Date of Exam: 01/26/18 Exam# [id number] Ordering Dr: Jared Romero MD STUDY: CT [...] Service support , CC: Jared Romero MD Assistant Softball Coach: Signed CBC W/DIFF, AUTOMATED Collected: 01/26/2018 Status: F Source: [place] 12:06 PM [facility] TYPE CODE TESTS RESULT OUT OF [...] Lymph 0.88 Performed By: #### L100.0100 #### [facility] [address] [place], [address] COMPREHENSIVE METABOLIC Collected: 01/26/2018 Status: F Source: [facility] 12:06 PM [facility] TYPE CODE TESTS RESULT OUT OF [...] GAP 11 Performed By: #### L500.4050 #### [facility] [address] [place], [address] Observed: 01/26/2018 Status: F Source: [place] CULTURE, URINE 12:00 AM [facility] Urine Culture ORGANISM 1: Klebsiella pneumoniae sp pneum [place] Count 25,000-50,000 ORGANISM 2: Proteus mirabilis [place] Count 50,000-80,000 Klebsiella pneumoniae sp pneum: REACTION [...] <=20 S (NF) indicates non-formulary drug at [facility]. Approval by Infectious Disease Specialist required [...] <=20 S (NF) indicates non-formulary drug at [facility]. Approval by Infectious Disease Specialist required before non-formulary drugs may be ordered and/or dispensed. Performed By: #### M100.0650 #### [facility] [address] [place], [address] OBSOLETE Observed: 01/25/2018 Status: COMPLETED Source: [place] 12:00 AM CLINIC OTHER CAMPUS REPOSITORY Refill (HEMAPOB) DIA MCCULLOUGH ([id number]) 1940 [facility] Time Provider Department 01/25/18 ANTIONE IRIZARRY HEMAPOB [...] [E72.11] Perforated bowel (HCC) [K63.1] INVALID FOR* Leechburg disease [E27.1] Intra-abdominal abscess (HCC) [K65.1] INVALID [...] F Source: [place] PROFILE (BMP) 2:40 PM [facility] Order Comment: Order Date: 01/17/18 Order [...] GAP 10 Performed By: #### L500.2500 #### [facility] [address] [place], [address] OBSOLETE Observed: 01/17/2018 Status: COMPLETED Source: [place] 12:00 AM CLINIC OTHER CAMPUS REPOSITORY Refill (HEMAPOB) DIA MCCULLOUGH ([id number]) 1940 [facility] Date Time Provider Department 01/17/18 ANTIONE IRIZARRY [...] 01/12/2018 Status: F Source: [place] 4:34 PM [facility] Order Comment: Order Date: 01/12/18 Order [...] L500.2500, L503.6075, L503.6150, L503.6550, L506.0250, L503.0105 #### [facility] [address] [place], [place], [address] BASIC METABOLIC Collected: 01/12/2018 Status: F Source: [place] PROFILE (BMP) 4:34 PM [facility] Order Comment: Order Date: 01/12/18 Order [...] L500.2500, L503.6075, L503.6150, L503.6550, L506.0250, L503.0105 #### [facility] [address] [place], [place], [address] IRON BINDING Collected: 01/12/2018 Status: F Source: [facility],TOTAL 4:34 PM [facility] REPOSITORY Order Comment: Order Date: 01/12/18 [...] L500.2500, L503.6075, L503.6150, L503.6550, L506.0250, L503.0105 #### [facility] [address] [place], [address] IRON Collected: 01/12/2018 Status: F Source: [place] 4:34 PM [facility] REPOSITORY Order Comment: Order Date: 01/12/18 Order Info: 0667-1 - BMP Order Info: 2500-7 - TIBC Order Info: 2497-08 FE Order Info: 2275-08 RITO Order Info: 2283-12 - FOLS Comments: homocysteine Is Patient Taking Vitamins or Folic Acid Supplements? Y TYPE CODE TESTS RESULT OUT OF RANGE REFERENCE UNITS LAB L503.6150 50-170 ug/dL Low IRON 26 Performed By: #### L100.0100, L500.2500, L503.6075, L503.6150, L503.6550, L506.0250, L503.0105 #### [facility] [address] [place], [place], [address] FERRITIN Collected: 01/12/2018 Status: F Source: [place] 4:34 [facility] Order Comment: Order Date: 01/12/18 Order Info: 666-05 - BMP Order Info: 2499-11 - TIBC Order Info: 2497-08 FE Order Info: 2275-08 RITO Order Info: 2283-12 - FOLS Comments: homocysteine Is Patient Taking Vitamins or Folic Acid Supplements? Y TYPE CODE TESTS RESULT OUT OF RANGE REFERENCE UNITS LAB L503.6550 8-252 ng/mL Normal FERRITIN 39 Performed By: #### L100.0100, L500.2500, L503.6075, L503.6150, L503.6550, L506.0250, L503.0105 #### [facility] [address] [place], [place], [address] [phone] [phone], (FOLIC ACID) Collected: 01/12/2018 Status: F Source: [place] 4:34 [facility] Order Comment: Order Date: 01/12/18 Order Info: 06 - BMP Order Info: 2499-11 - TIBC Order Info: 2497-08 - FE Order Info: 2275-08 - RITO Order Info: 2283-12 - FOLS Comments: homocysteine Is Patient Taking Vitamins or Folic Acid Supplements? Y TYPE CODE TESTS RESULT OUT OF RANGE REFERENCE UNITS LAB L506.0250 3.1-55.4 ng/mL Normal FOLATES 32.10 Performed By: #### L100.0100, L500.2500, L503.6075, L503.6150, L503.6550, L506.0250, L503.0105 #### [facility] [address] [place], [address] VITAMIN B12 Collected: 01/12/2018 Status: F Source: [place] 4:34 PM [facility] Order Comment: Order Date: 01/12/18 Order Info: 2132-9 - B12 TYPE CODE TESTS RESULT OUT OF RANGE REFERENCE UNITS LAB L503.0105 211-911 pg/mL Normal Vitamin B12 497 Performed By: #### L100.0100, L500.2500, L503.6075, L503.6150, L503.6550, L506.0250, L503.0105 #### [facility] [address] [place], [address] HOMOCYSTEINE Collected: 01/12/2018 Status: F Source: [place] 4:34 PM [facility] [place] TYPE CODE TESTS RESULT OUT OF REFERENCE UNITS RANGE LAB L503.8001 3.2-10.7 umol/L HOMOCYSTEINE Normal 9.1 Performed By: #### L503.8001 #### [facility] [address] [place], [address] PROGRESS Observed: 12/09/2017 Status: COMPLETED Source: [place] 1:37 PM CLINIC OTHER CAMPUS REPOSITORY HNO ID: [id number] Author: Elizabeth Mixon Service: (none) Author Type: (none) Type: Progress Notes Filed: 12/09/2017 1:37 PM Note Text: The appointment was cancelled for this patient. Elizabeth Mixon CBC-COMPLETE BLOOD CNT Collected: 11/24/2017 Status: F Source: [place] NO DIFF 11:13 AM [facility] [place] TYPE CODE TESTS RESULT OUT OF [...] MPV 8.9 Performed By: #### L100.0500 #### [facility] [address] [place], [address] RENAL PROFILE Collected: 11/24/2017 Status: F Source: [place] 11:13 AM [facility] [place] TYPE CODE TESTS RESULT OUT OF [...] CO2 31.0 Performed By: #### L500.3600 #### [facility] [address] [place], [address] MICROALB:CREAT Collected: 11/24/2017 Status: F Source: [place] RATIO,RANDOM UR 11:13 AM [facility] [place] TYPE CODE TESTS RESULT OUT OF RANGE REFERENCE UNITS LAB L501.1200 NO RANGE EST. mg/dL Normal UR CREAT 80.70 LAB L502.0500 NO RANGE EST. mg/L Normal 8.1 MICROALBUMIN ,UR LAB L502.0600 <30 mg/g CRE mg/g CRE Normal 10.0 MALB:CREAT Performed By: #### L502.0250 #### [facility] [address] [place], [address] VITAMIN D,25 HYDROXY Collected: 11/24/2017 Status: F Source: [place] 11:13 AM [facility] TYPE CODE TESTS RESULT OUT OF RANGE REFERENCE UNITS LAB L506.1000 29.95-100.01 ng/mL Normal Vitamin D 53.3 25-OH Result Comment: Vitamin D 25(OH) Status Range Deficiency <20 ng/mL (50nmol/L) Insuffciency 20 - 30 ng/mL (50 - 75 nmol/L) Sufficiency 30 - 100 ng/mL (75 - 250 nmol/L) Toxicity >100 ng/mL (>250 nmol/L) Performed By: #### L506.1000 #### [facility] [address] [place], [address] PTHIN Collected: 11/24/2017 Status: F Source: [place] 11:13 AM [facility] TYPE CODE TESTS RESULT OUT OF RANGE REFERENCE UNITS LAB L509.1000 18.4-80.1 pg/mL Normal PTHIN 47.6 Performed By: #### L509.1000 #### [facility] [address] [place], [address] INJECTION FOR Observed: 11/10/2017 Status: F Source: [facility] DRNG CATH 3:31 PM HEALTH SYSTEM [address] REPOSITORY Performed at [facility] APPROVED BY: Timothy Rush MD EXAM TITLE: [...] OP NOT Observed: 11/10/2017 Status: COMPLETED Source: [place] 3:20 PM [facility] REPOSITORY O ID: [id number] Author: Timothy Rush Service: Radiology Author Type: Physician Type: Brief Op Note Filed: 11/10/2017 3:21 PM Note Text: INTERVENTIONAL RADIOLOGY POST PROCEDURE NOTE DATE: 11/10/17 NAME: Dia Mccullough LOG ID: [id number] Pre-Procedure Diagnosis: Pelvic abscess with fistula Route Salesperson: Surgeon(s) and Role: * Timothy Rush - Primary Procedure: Abscessogram and drainage catheter removal Anesthesia: None Findings: No residual abscess cavity or fistulous connection to bowel. Estimated Blood Loss: 0 ml Specimen: None Complications: None Post-Op/Post-Procedure Diagnosis: Pelvic abscess with fistula PROTHROMBIN TIME W/INR Collected: 11/09/2017 Status: F Source: [place] 11:30 AM [facility] TYPE CODE TESTS RESULT OUT OF REFERENCE UNITS RANGE LAB L300.4150 11.7-14.9 SECONDS High PROTIME 36.1 LAB L300.4200 High alert INR 3.6 Performed By: #### L300.3900 #### [facility] [address] [address] [place], [place], [address] HISTORY AND PHYSICAL Observed: 11/04/2017 Status: F Source: [place] EXAM 7:52 PM [facility] Medical Records Department [address] [place] [address] History and Physical 11/04/171948 MR#: [id number] Acct: [id number] Name: DIA MCCULLOUGH Rep #: [id number] : 1940 77 From: Alejo Ortega MD PCP: Jared Romero MD Status: DIS IN Y Location[facility] History of Present Illness Date of Admission: [...] surgery. 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 history Smoking Status: Never smoker - *Family [...] INJECTION FOR Observed: 11/03/2017 Status: F Source: [facility] 12:24 PM [facility]ALTH SYSTEM [address] REPOSITORY Performed at [facility] APPROVED BY: Nathaniel Betancur MD EXAM [...] OP NOT Observed: 11/03/2017 Status: COMPLETED Source: [place] 12:15 PM [facility] OTHER CAMPUS REPOSITORY HNO ID: [id number] Author: Nathaniel Betancur Service: Interventional Radiology Author Type: Physician Type: Brief Op Note Filed: 11/03/2017 6:40 PM Note Text: BRIEF OPERATIVE / PROCEDURE NOTE LOG ID: [id number] Surgery/Procedure Date: 11/03/2017 Incision/Procedure Start Time: Incision Close/Procedure End Time: Surgeon(s)/Proceduralist(s) and Mannequin Decorator(s): Surgeon(s) and Role: * Timothy Rush - Jori No Additional Staff Procedure(s): Abscessogram Anesthesia: [...] 03, 2017 TIME: 6:21 PM PAGER/CONTACT #: [phone] [facility] Observed: 11/03/2017 Status: COMPLETED Source: [place] 12:00 AM CLINIC OTHER CAMPUS REPOSITORY Patient:Dia Mccullough MRN: <[id number]> Height:5' 0(1.524 m) Weight:No patient weight recorded [...] [I87.2] 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 Advised her to call back if any questions. Will scan written RX into [facility]. [place]. DOWNTIME REPORT Observed: 11/02/2017 Status: F Source: [place] 1:47 PM [facility] Medical Records Department [address] [place] [address] Downtime Report MR#: [id number] Acct: [id number] Name: DIA MCCULLOUGH Rep #: [id number] : 1940 77 From: Randi Damon MD PCP: Jared Romero MD Status: DIS IN This patient was seen during an EMR downtime October 17, 2017 - October 24, 2017. This patient may have a combination of paper and electronic documentation or all paper documentation. All documentation is viewable within the e-chart portion of [facility] for each patient visit. HOME HEALTH PROGRESS Observed: 10/31/2017 Status: F Source: [place] NOTE 7:54 AM [facility] Medical Records Department [address] [place] [address] Home Health Progress Note Xodd-pm-Omfu Encounter Encounter Date: 10/28/17 1353 MR#: [id number] Acct: [id number] Name: DIA MCCULLOUGH Rep #: [id number] : 1940 77 From: Alejo Ortega MD PCP: Jared Romero MD Status: ADM IN [facility] ADDENDUM by Alejo Ortega MD on 10/31/17 at 0753 Home Care Nurse to perform INR testing, send results to Dr. Jared Romero. 10/31/17 3024 <Electronically signed by Alejo Ortega MD> Date [...] (Chronic) - Requirements and Reasons Disciplines Needed/Ordered: [facility], Physical Therapy Reason for Disciplines: Disease Specific [...] Disciplines Additional Disciplines Needed/Ordered: Occupational Therapy 10/28/17 6044 <Electronically signed by Alejo Ortega MD> Date Alejo Olivarez Signature (if indicated): Date CC: Signed PROTHROMBIN TIME W/INR Collected: 10/31/2017 Status: F Source: [place] 5:20 AM [facility] TYPE CODE TESTS RESULT OUT OF RANGE REFERENCE UNITS LAB L300.4150 11.7-14.9 SECONDS High PROTIME 24.2 LAB L300.4200 Normal INR 2.2 Performed By: #### L300.3900 #### [facility] [address] [place], [address] PROTHROMBIN TIME W/INR Collected: 10/30/2017 Status: F Source: [place] 6:20 AM [facility] TYPE CODE TESTS RESULT OUT OF RANGE REFERENCE UNITS LAB L300.4150 11.7-14.9 SECONDS High PROTIME 27.6 LAB L300.4200 Normal INR 2.6 Performed By: #### L300.3900 #### [facility] [facility], [address] PROTHROMBIN TIME W/INR Collected: 10/29/2017 Status: F Source: [place] 7:50 AM [facility] TYPE CODE TESTS RESULT OUT OF RANGE REFERENCE UNITS LAB L300.4150 11.7-14.9 SECONDS High PROTIME 32.4 LAB L300.4200 Normal INR 3.1 Performed By: #### L300.3900 #### [facility] [place], [address] DISCHARGE SUMMARY Observed: 10/28/2017 Status: F Source: [place] 1:53 PM [facility] Medical Records Department [address] [place] [address] Discharge Summary 10/28/17 1348 MR#: [id number] Acct: [id number] Name: DIA MCCULLOUGH Rep #: [id number] : 1940 77 From: Alejo Ortega MD PCP: Jared Romero MD Status: ADM IN Y Location: [place] [address] Discharge Date and Diagnosis Date of Admission: [...] 3.6 H* 3.4 3.2 Consultations 10/24/17 Consult: Onc/Wound/wrapper selector Routine Comment: Reason for Consult:: lle hematoma [...] 10/28/2017 Status: F Source: [place] 1:48 PM [facility] Medical Records Department [address] [place] [address] Instructions for Home/Discharge Instructions 10/28/17 1347 MR#: [id number] Acct: [id number] Name: DIA MCCULLOUGH Rep #: [id number] : 1940 77 From: Alejo Oretga MD PCP: Jared Romero MD Status: ADM [...] 10/28/2017 Status: F Source: [place] 11:10 AM [facility] Order Comment: PER BEV PT WAS IN THERAPY. TYPE CODE TESTS RESULT OUT OF RANGE REFERENCE UNITS LAB L300.4150 11.7-14.9 SECONDS High PROTIME 33.2 LAB L300.4200 Normal INR 3.2 Performed By: #### L300.3900 #### [facility] [address] [place], [address] PROTHROMBIN TIME W/INR Collected: 10/28/2017 Status: F Source: [place] 5:20 AM [facility] TYPE CODE TESTS RESULT OUT OF RANGE REFERENCE UNITS LAB L300.4150 11.7-14.9 SECONDS High PROTIME 34.5 LAB L300.4200 Normal INR 3.4 Performed By: #### L300.3900 #### [facility] [address] [place], [address] INJECTION FOR Observed: 10/27/2017 Status: F Source: [facility] CATH 12:59 PM [facility] [address] REPOSITORY Performed at [facility] APPROVED BY: Timothy Rush MD EXAM TITLE: [...] OP NOT Observed: 10/27/2017 Status: COMPLETED Source: [place] 12:01 PM [facility] REPOSITORY HNO ID: [id number] Author: Timothy Rush Service: Radiology Author Type: Physician Type: Brief Op Note Filed: 10/27/2017 12:05 PM Note Text: INTERVENTIONAL RADIOLOGY POST PROCEDURE NOTE DATE: 10/27/17 NAME: Dia Mccullough LOG ID: [id number] Pre-Procedure Diagnosis: Diverticular abscess Route Salesperson: Surgeon(s) and Role: * Timothy Rush - Primary Procedure: Abscessogram Anesthesia: None Findings: Abscess decompressed. Fistulous connection to sigmoid colon. 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 Plan: Stop flushing. Repeat abscessogram in [address] PELVIS WITH Observed: 10/27/2017 Status: F Source: [facility] GENERAL CONTRAST 10:46 AM [facility] SYSTEM REPOSITORY Performed at [facility] APPROVED BY: Timothy Rush MD EXAM TITLE: [...] TIME W/INR Collected: 10/27/2017 Status: F Source: [place] 5:20 AM [facility] TYPE CODE TESTS RESULT OUT OF REFERENCE UNITS RANGE LAB L300.4150 11.7-14.9 SECONDS High PROTIME 36.2 LAB L300.4200 High alert INR 3.6 Result Comment: CRITICAL VALUE VERIFIED. CALLED TO ADELA MEYER 10/27/17 0636 Kristen Heredia. RESULTS READ BACK BY SAME . Performed By: #### L300.3900 #### [facility] [address] 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 [...] written RX to transitional care unit at [facility] at [phone] and spoke to Alisa regarding this. Advised her to call back if any questions. Will scan written RX into [employer] ([employer]ropri[employer]). [place]. Progress Notes (): Gold Clemens MD 10/08/2017 11:51 PM Signed DEPARTMENT OF HOSPITAL MEDICINE [facility] HISTORY AND PHYSICAL EXAMINATION SERVICE DATE: 10/08/2017 10:57 PM PRIMARY CARE PHYSICIAN: Rika Wheeler MD Subjective CHIEF COMPLAINT: Left leg hematoma HPI: This is a 77 year old female who has a complicated recent medical history starting August 24 when she was diagnosed with diverticular abscess/perforation and septic shock. She was brought here for surgical eval from [place], but declined operative intervention and requested to [...] more bleeding, and she went to the [facility] ED this morning. She was discharged back home after wound evaluation and no finding of circulatory compromise. Her son then brought her back to the ED with a concern over abdominal pain and insistent on hospitalization per [facility] ED notes. Eval included CT abdomen which [...] dependent PAST MEDICAL HISTORY Diagnosis Date - Leechburg disease - Asthma - CKD (chronic kidney [...] - Normocytic anemia - PE (pulmonary thromboembolism) ([facility]) 01/05/14 Bilat, extensive - Pulmonary [...] staff and/or other providers, documentation, mail order biller, and [id number]-[id number] time with patient. Of this time, greater than 50% was spent counseling and coordinating care. Counseling elements include educating the patient about diagnosis, further testing, and care related to Intra-abdominal abscess (HCC). Plan of care discussed with: Patient and RN VTE Prophylaxis: Patient is already anti-coagulated. Diagnostic tests reviewed for today's visit: Most recent labs and imaging results. Most recent EKG TELEMETRY: [facility] Imaging Services [address] [place] [address] Abdomen/Pelvis without Cont MR#: [id number] Acct: [id number] Name: DIA MCCULLOUGH Rep #: [id number] : [id number] F [id number] From: Mckay Faulkner MD PCP: Jared Romero MD Status: REG ER Study: Abdomen/Pelvis without Cont Date of Exam: 10/08/17 Exam# [id number] Ordering Dr: Ronn Marrero MD STUDY: CT [...] AND WEEKEND COVERAGE: After 7pm please page [phone] Gold Clemens MD 10/09/2017 6:45 AM Signed [...] year old female recently admitted 08/24/17 from [place] for diverticular abscess/perforation and septic shock. After [...] excluded. PAST MEDICAL HISTORY Diagnosis Date - Leechburg disease - Asthma - CKD (chronic kidney [...] Take 1 tablet by mouth once daily. 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) Disp: Rfl: 10/07/2017 at Unknown time Current [...] abscess/phlegmon ill defined on current imaging -d/w medication assistant radiologist, developing abscess is located in a [...] Surgery Service Pager: For questions or concerns Mon-Tue 6a-5p please page [phone]. After 5pm and on Weekends and Holidays, please page [phone] if in ICU or [phone] if on RNF. SIGNATURE: Lina Damico MD PATIENT NAME: Dia Mccullough DATE: October 09, 2017 TIME: 8:59 AM PAGER: [phone] Attending Note I evaluated the patient and [...] AND WEEKEND COVERAGE: After 7pm please page [phone] CHIEF COMPLAINT: bleeding in left leg SUBJECTIVE: 6 weeks ago she had bowel perforation and was brought in here. She decided not to have surgery and was sent home on 2 weeks of oral abx. 2 weeks later she has hematemesis while on coumadin. She was treated with vit k at [facility] and was sent to hospice [facility]. She [...] ml/min (11/28/2014) Venous insufficiency (chronic) (peripheral) () Leechburg disease () Traumatic hematoma of left lower [...] or IVC filter. Will get opinion of fleet technician- has seen Dr Irizarry in the past. Check ferritin, retic, vitamin b12 and folate. This was discussed with patient and later with son on the phone She is DNRCCA and no mechanical ventilation for respiratory distress either. VTE Prophylaxis: Patient is already anti-coagulated. 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 Listened empathetically to pt's concerns. Reminded pt of 06/12 [place]. Healthcare Specialist Signature: CHAPLAIN Wilbert To contact the [facility] Care Department: Please call [phone] or Page the On-Call Healthcare Specialist at pager [phone] Thank you for the opportunity to be [...] 77 year old female who was in [facility] in August for perforated bowel Had refused surgery and actually went home on hospice and on oral antibiotics. Has been receiving blood thinner. Recently had hematoma of the left leg. Per HANDP, she was brought back to [facility] ED for abdominal pain. There, it was [...] flagyl. PAST MEDICAL HISTORY Diagnosis Date - Leechburg disease - Asthma - CKD (chronic kidney [...] - Hypercholesterolemia - Inflammatory polyarthritis (HCC) Dr. Wojno - Inflammatory polyarthropathy - Normocytic anemia - PE (pulmonary thromboembolism) ([facility]) 01/05/14 Bilat, extensive - Pulmonary [...] Take 1 tablet by mouth once daily. 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) Disp: Rfl: 10/07/2017 at Unknown time Current [...] October 09, 2017 TIME: 4:02 PM PAGER: [phone] Randi Koenig MD 10/10/2017 7:10 AM Attested [...] Therapy: Room Air IANDO: Date 10/09/17699 - 10/10/1759 10/10/17699 - 10/11/17 0659 Shift 1387-7289 2005-2911 8887-3500 24 Hour Total 4635-2349 7005-3298 9153-4241 24 Hour Total I N T A K E PO 240 240 480 PO 240 240 480 IV 1000 1000 LR 1000 1000 Shift Total 4532 402 6872 O U T P U T Urine [...] Leg hematoma, left, initial encounter 10/08/2017 - Leechburg disease Chronic - Venous insufficiency (chronic) (peripheral) - CKD (chronic kidney disease) stage 3, GFR 30-59 ml/min 11/28/2014 - Pulmonary emboli (HCC) 01/30/2014 Overview Note: clinically resolved - DVT (deep venous thrombosis) ([facility]) 01/08/2014 Overview Note: recurrent 77 [...] October 10, 2017 TIME: 7:05 AM Pager: [phone] Jose Maria Mittal MD 10/10/2017 11:50 AM Signed DEPARTMENT OF HOSPITAL MEDICINE PROGRESS NOTE SERVICE DATE: 10/10/2017 SERVICE TIME: 11:27 AM Hospital Medicine/Primary Attending: Jose Maria Mittal MD NIGHT AND WEEKEND COVERAGE: After 7pm please page [phone] CHIEF COMPLAINT: left leg hematoma. SUBJECTIVE: No [...] ml/min (11/28/2014) Venous insufficiency (chronic) (peripheral) () Leechburg disease () Traumatic hematoma of left lower [...] October 10, 2017 TIME: 2:48 PM PAGER: [phone] Teetee Mendez RN, RN 10/10/2017 10:04 PM Addendum Sound paged to notify that the patient is requesting something for anxiety. Ativan 0.25 mg ordered once by AMMY Figueroa. AMMY Figueroa of [facility] notified that the patient received half of [...] lovenox. Discussed change with RN. Kaycee Figueroa DIRECTOR DIGITAL SALES [phone] Shauna Pulido MD 10/11/2017 6:43 AM Attested [...] Therapy: Room Air IANDO: Date 10/10/17699 - 10/11/1759 10/11/17699 - 10/12/17 0659 Shift 9417-5247 6469-8695 7937-2694 24 Hour Total 0686-1570 3661-7210 6324-1047 24 Hour Total I N T A [...] Leg hematoma, left, initial encounter 10/08/2017 - Leechburg disease Chronic - Venous insufficiency (chronic) (peripheral) - CKD (chronic kidney disease) stage 3, GFR 30-59 ml/min 11/28/2014 - Pulmonary emboli (HCC) 01/30/2014 Overview Note: clinically resolved - DVT (deep venous thrombosis) ([facility]) 01/08/2014 Overview Note: recurrent 77 [...] 11, 2017 6:41 AM [facility] #: Pager: [phone] Previous Version Antione Irizarry MD 10/11/2017 11:43 [...] 0.94 1.63* 1.55* CHEM: Recent Labs 10/11/1743010/10/17 03510/09/17 0630 ALB -- 1.7* -- TPROT -- [...] October 11, 2017 TIME: 8 AM PAGER: [phone] Jose Maria Mittal MD 10/11/2017 9:44 AM Addendum DEPARTMENT OF HOSPITAL MEDICINE PROGRESS NOTE SERVICE DATE: 10/11/2017 SERVICE TIME: 9:22 AM Hospital Medicine/Primary Attending: Jose Maria Mittal MD NIGHT AND WEEKEND COVERAGE: After 7pm please page [phone] CHIEF COMPLAINT: left leg hematoma. Intraabdominal abscess. [...] ml/min (11/28/2014) Venous insufficiency (chronic) (peripheral) () Leechburg disease () Traumatic hematoma of left lower [...] a prayer and was thankful for the [place] support. Healthcare Specialist Signature: Chaplain Thuy To contact the Spiritual Care Department: Please call [phone] or Page the On-Call Healthcare Specialist at pager [phone] Thank you for the opportunity to be of service. This is an electronically created document. IF PRINTED, PLEASE DO NOT REMOVE FROM THE CHART OR MODIFY PRINTED COPY. Chaplain Daley Chaplain 10/11/2017 12:06 PM Signed Spiritual Care Record ? Anointing/[place] PATIENT NAME: Dia Mccullough DATE: October 11, 2017 NOTE: Patient was anointed by Fr. ireland from [facility] on (date): 10/11/17. Signature: Chaplain Thuy Question? [...] scanned documents. Patient seen by Carol Neal CUSTOMS HOUSE BROKER and lacey RN. Left lower leg hematoma with area of congealed blood and distal fluid filled area. Xeroform, dry gauze dressing, and DARCY wrap daily. Plastic Surgery consulted for hematoma evacuation. Wound care to follow. SIGNATURE: Laly Justice RN PATIENT NAME: Dia Mccullough DATE: October 11, 2017 TIME: 3:13 PM CONTACT#: [id number] Misael Wei MD 10/11/2017 3:38 PM Signed [...] 11, 2017 TIME: 3:22 PM PAGER/CONTACT #: [phone] Timothy Rush MD 10/11/2017 3:56 PM Signed [...] DATE: 10/11/17 NAME: Dia Mccullough LOG ID: [id number] Pre-Procedure Diagnosis: Pelvic abscess Route Salesperson: Surgeon(s) and Role: * Timothy Rush - [...] October 12, 2017 TIME: 8 AM PAGER: [phone] Shauna Pulido MD 10/12/2017 9:21 AM Attested [...] 10/11/17699 - 10/12/1765810/12/17699 - 10/13/17 0659 Shift 7210-9033 5030-7215 6196-1216 24 Hour Total 0878-8622 7525-4980 7219-2071 24 Hour Total I N T A K E PO 360 120 480 PO 360 120 480 IV 1100 1100 1000 1000 LR 1000 1000 1000 1000 Meropenem (Merrem) 100 100 Irrigants 5 5 Irrigant/Flush Amount In (Drain/Tube 10/11/17 Toby Sherwood Left Lower Quadrant Abdomen Drain #1) 5 5 Shift Total 1095 693 6446 1000 1000 O U T P U [...] clinically resolved - DVT (deep venous thrombosis) ([facility]) 01/08/2014 Overview Note: recurrent 77 [...] 12, 2017 9:21 AM [facility] #: Pager: [phone] Joan Masters, RN, RN 10/12/2017 10:02 AM Signed CARE MANAGEMENT: ASSESSMENT AND DISCHARGE PLAN SERVICE DATE: 10/12/2017 SERVICE TIME: 0956 PRIMARY CARE PHYSICIAN: Rika Wheeler MD ADMISSION STATUS: Inpatient Needs Prior to Discharge: Wound Care;Home Care Order;OT/PT Evaluation 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 No [...] 0 I feel financially burdened by my oew-ey-bxovxc expenses for my prescription medication: Disagree mostly [...] alone, but has family support. Would like [facility] for wound care and would be agreeable to home PT/OT if needed. Await PT/OT eval (ordered) for further planning. SIGNATURE: Joan Masters RN PATIENT NAME: Dia Mccullough DATE: October 12, 2017 TIME: 9:56 AM PAGER/CONTACT #: [phone] Lacy Valdez MD 10/12/2017 8:12 PM Signed [...] hematoma. PAST MEDICAL HISTORY Diagnosis Date - Leechburg disease - Asthma - CKD (chronic kidney [...] Take 1 tablet by mouth once daily. 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 She understands this [...] 10/12/2017 SERVICE TIME: 1336 to 1406 ROOM: [id number] Recommended Discharge Disposition: Subacute/SNF Recommended Discharge Disposition [...] on feet Interventions Provided: Evaluation;Self Fdc Management (12926) $ Evaluation-Moderate (59745) Billed Units: 1 unit Self Fdc Management (04064) Treatment Minutes: 14 1 unit Skilled Intervention(s): [...] was brought here for surgical eval from [place], but declined operative intervention and requested to [...] more bleeding, and she went to the [facility] ED this morning. She was discharged back home after wound evaluation and no finding of circulatory compromise. Her son then brought her back to the ED with a concern over abdominal pain and insistent on hospitalization per [facility] ED notes. 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 Hansen - Inflammatory polyarthropathy - Normocytic anemia - PE (pulmonary thromboembolism) ([facility]) 01/05/14 Bilat, extensive - Pulmonary [...] Post acute placement Relevant Past Medical History: Leechburg's, CKD, DVT/PE, fibromyalgia, HTN, R hip endo 2013 back sx, Patient Report: Pt in room cooperative and asking to get out of bed. Pain: 8/10 L LE after movement Home Environment Patient Lives With: Self/Alone Assistance Available: time study analyst (Dtr nearby) Entry To Home: No Stairs [...] October 12, 2017 TIME: 2:45 PM PAGER: [phone] Karin Dow MD 10/12/2017 6:00 PM Signed DEPARTMENT OF HOSPITAL MEDICINE PROGRESS NOTE SERVICE DATE: 10/12/2017 SERVICE TIME: 3:16 PM Hospital Medicine/Primary Attending: Karin Dow MD NIGHT AND WEEKEND COVERAGE: From 7am - 7pm, please call [phone] After 7pm, please call cross cover pager #[phone] Subjective INTERVAL HPI: Patient seen and examined. [...] 230 vte non-pharmacologic prophylaxis - none indicated (va,oh) 10/08/17 230 vte current anticoag therapy (va,ks) VTE Prophylaxis: VTE prophylaxis appropriate Disposition: SNF Plan of care discussed with: Patient SIGNATURE: Karin Dow MD PATIENT NAME: Dia Mccullough DATE: October 12, 2017 TIME: 3:16 PM PAGER/CONTACT #: [phone] etx [phone] Joan Masters RN, RN 10/12/2017 3:22 PM Signed CARE MANAGEMENT PROGRESS NOTE SERVICE DATE: 10/12/2017 SERVICE TIME: 1521 LOS: 1 day Needs Prior to Discharge: Accepting Facility;Bed Availability;Precertification;Discharge Transportation Spoke with Pt after PT/OT eval, pt agreeable to SNF at [place]. Would like [facility] as first choice. Will need precert. SIGNATURE: Joan Masters RN PATIENT NAME: Dia Mccullough DATE: October 12, 2017 TIME: 3:21 PM PAGER/CONTACT #: [phone] Radha Aceves, PT 10/12/2017 3:38 PM Signed Physical Therapy Evaluation SERVICE DATE: 10/12/2017 SERVICE TIME: 1455 to 1520 ROOM: [id number] Recommended Discharge Disposition: Subacute/SNF Justification For Post [...] gait and mobility-other Interventions Provided: Evaluation;Therapeutic Activity (40415) $ Evaluation-Low (87746) Billed Units: 1 unit Therapeutic Activity (14297) Treatment Minutes: 9 1 unit Skilled Intervention(s): [...] was brought here for surgical eval from [place], but declined operative intervention and requested to [...] more bleeding, and she went to the [place] ED this morning. ?She was discharged back home after wound evaluation and no finding of circulatory compromise. ?Her son then brought her back to the ED with a concern over abdominal pain and insistent on hospitalization per [facility] ED notes. 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 Hansen - Inflammatory polyarthropathy - Normocytic anemia - PE (pulmonary thromboembolism) ([facility]) 01/05/14 Bilat, extensive - Pulmonary [...] Lives With: Self/Alone Assistance Available: time study analyst (Dtr nearby) Entry To Home: No Stairs [...] 12, 2017 TIME: 3:33 PM PAGER/CONTACT #: [phone] Summer Farias, Mule Rider 10/12/2017 3:45 PM Signed SNF referral sent to [facility] Debbie Hilton, RN, RN 10/13/2017 11:09 AM Signed Received message through Joan Masters, Ekg Tech that [facility] will be able to accept pt [...] Stable H/H, follow. 5. CKF S3 6. Leechburg's Dz - prednisone 7. PMR/Inflammatory Polyarthritis Medication and Non-Pharmacologic VTE Prophylaxis/Anticoagulants Anticoagulant AND Antiplatelet Medications Start Dose Route Frequency Ordered Stop 10/11/17 1800 enoxaparin 70 mg injection (LOVENOX) 1 mg/kg/dose SUBCUTANEOUS EVERY 24 HOURS 10/11/17 1736 -- 10/08/17 2300 vte non-pharmacologic prophylaxis - none indicated (va,ks) 10/08/17 2300 vte current anticoag therapy ([place]) VTE Prophylaxis: VTE prophylaxis appropriate SIGNATURE: Lory Garces MD PATIENT NAME: Dia Mccullough DATE: October 13, 2017 TIME: 11:11 AM PAGER: Vincent Hilton, RN, RN 10/13/2017 2:45 PM Signed Spoke with Allie Mcallister at [facility]. She will start precert for pt [...] I recommend continued iv antibiotic therapy at [facility] at least initially. Pt declines, wants to [...] 14, 2017 TIME: 12:15 PM PAGER/CONTACT #: [phone] Previous Version Lory Garces MD 10/14/2017 12:52 [...] ? 4. A/C Blood Loss Anemia - / #2. Stable H/H, follow. ? 5. CKF S3 ? 6. Leechburg's Dz - prednisone ? 7. PMR/Inflammatory Polyarthritis Medication and Non-Pharmacologic VTE Prophylaxis/Anticoagulants Anticoagulant AND Antiplatelet Medications Start Dose Route Frequency Ordered Stop 10/11/17 1800 enoxaparin 70 mg injection (LOVENOX) 1 mg/kg/dose SUBCUTANEOUS EVERY 24 HOURS 10/11/17 1736 -- 10/08/17 2300 vte non-pharmacologic prophylaxis - none indicated (va,ks) 10/08/17 2300 vte current anticoag therapy ([place]) VTE Prophylaxis: VTE prophylaxis appropriate SIGNATURE: Lory Garces MD PATIENT NAME: Dia Mccullough DATE: October 14, 2017 TIME: 12:49 PM PAGER: Vincent Hilton, RN, RN 10/14/2017 2:41 PM Signed Spoke with Allie @ [facility]. They cancelled precert for this patient [...] GFR 30-59 ml/min Venous insufficiency (chronic) (peripheral) Leechburg disease Traumatic hematoma of left lower leg Leg hematoma, left, initial encounter Resolved Problems: * No resolved hospital problems. * OPERATIONS PERFORMED WHILE IN THE HOSPITAL: None IMPORTANT TEST/PROCEDURES: No procedures performed TEST RESULTS NOT AVAILABLE AT THIS TIME: No pending results Discharge Disposition Discharge Disposition: [facility] Facility - Greater than 30 Days Activity When You Leave the Hospital Resume pre-hospital activity Diet Instructions Resume your pre-hospital diet Follow Up Appointments Follow-Up Appointment When: In 4 weeks Misael Wei [phone] [place] [address] [facility] [address] PCP Requested Referral Follow-Up Appointment When: In 1 week Rika Wheeler [phone] [address] [facility] [address] PCP Requested Referral Additional Provider to Provider [...] be performed due to insurance reasons at [place], d/w patient, and she would prefer to still go to [place] and get CT scan only even though [...] follow. ? 5. ?CKF S3 ? 6. ?Leechburg's Dz - prednisone ? 7. ?PMR/Inflammatory Polyarthritis FOLLOW-UP APPOINTMENTS ALREADY SCHEDULED WITH A [facility] PROVIDER: No future appointments. DISCHARGE [...] RN, RN 10/14/2017 6:23 PM Addendum 1822- [facility] has not called back stating if the patient has received precert. RN spoke with Joan customer care team coach and she states she has not heard anything back from [facility]. Patient updated. 1630-Per customer care team coach Debbie Hilton patients precert is no longer active and states that [facility] is working towards new precert for later today. RN and customer care team coach updated patient on discharge situation. Previous Version Keya Robles RN, RN 10/15/2017 9:52 AM Signed CARE MANAGEMENT PROGRESS NOTE SERVICE DATE: 10/15/2017 SERVICE TIME:9:49 A.M. Spoke with Allie, staff member at [facility]. They do not have pre-cert at this time so patient is unable to come to them this weekend. The earliest would be Tuesday, if they can obtain if at that time. LOS: 4 days SIGNATURE: Keya Robles RN PATIENT NAME: Dia Mccullough DATE: October 15, 2017 TIME: 9:49 AM PAGER/CONTACT #: [phone] Patsy Kirby MD, MD 10/16/2017 5:52 AM [...] Leg hematoma, left, initial encounter 10/08/2017 - Leechburg disease Chronic - Venous insufficiency (chronic) (peripheral) - CKD (chronic kidney disease) stage 3, GFR 30-59 ml/min 11/28/2014 - Pulmonary emboli (HCC) 01/30/2014 Overview Note: clinically resolved - DVT (deep venous thrombosis) ([facility]) 01/08/2014 Overview Note: recurrent Assessment/Plan [...] be performed due to insurance reasons at [place], d/w patient, and she would prefer to still go to [place] and get CT scan only even though [...] follow. ? 5. ?CKF S3 ? 6. ?Leechburg's Dz - prednisone ? ? 7. ?PMR/Inflammatory [...] 2300 vte non-pharmacologic prophylaxis - none indicated (va,ks) 10/08/17 2300 vte current anticoag therapy ([place]) Disposition: SNF,pending precert Plan of care discussed with: Patient and RN SIGNATURE: Patsy Kirby MD PATIENT NAME: Dia Mccullough DATE: October 15, 2017 TIME: 8:18 PM PAGER/CONTACT #: monica castano etx [phone] Patsy Kirby MD, MD 10/17/2017 3:57 AM [...] 650 mg ORAL q 4 H PRN Timohty Rush iv contrast (radiology procedure) INTRAVENOUS DIRECTED PRN Timothy Rush enoxaparin 70 mg injection (LOVENOX) 1 mg/kg/dose SUBCUTANEOUS q 24 HR Jose Maria Kyrie 70 mg at 10/16/17 1710 HYDROcodone 5 mg - acetaminophen 325 mg tablet (NORCO) 1 tablet ORAL q 4 H PRN Kaycee ([employer] [place] 1 tablet at 10/15/17 0857 polyethylene [...] be performed due to insurance reasons at [place], d/w patient, and she would prefer to still go to [facility] and get CT scan only even though [...] 2300 vte non-pharmacologic prophylaxis - none indicated (va,ks) 10/08/17 2300 vte current anticoag therapy ([place]) Disposition: SNF,pending precert Plan of care discussed with: Patient and RN SIGNATURE: Patsy Kirby MD PATIENT NAME: Dia Mccullough DATE: October 16, 2017 TIME: 10:00 PM PAGER/CONTACT #: monica castano etx [phone] Mal Zavala MD 10/17/2017 4:36 PM Signed [...] Lymph 1.18 - 3.74 thou/cmm 1.39 Abs. [place] 0.27 - 0.70 thou/cmm 0.69 Abs. Eosin [...] Addisons: -cont prednisone [place] [facility] [place] 4 wk of po abx. ID f/u in 4 wk. Cont to monitor cough, if fever or wbc check cxr. Consult: plastic, surgery, ID, heme onc, Mal Zavala MD October 17, 2017 4:36 PM SIGNATURE: Mal Zavala MD PATIENT NAME: Dia Mccullough DATE: October 17, 2017 TIME: 9:57 AM PAGER/CONTACT #: [phone] Rain Hung MD 10/17/2017 10:14 AM Signed INTERVENTIONAL RADIOLOGY POST PROCEDURE NOTE DATE: 10/17/17 NAME: Dia Mccullough LOG ID: [id number] Pre-Procedure Diagnosis: Pelvic abscess, likely 2/2 ruptured diverticulitis, s/p percutaneous drain placement Post Procedure Diagnosis: Same. Route Salesperson: Dr. Rain Hung Procedure: Fluoroscopic guided abscessogram [...] will eval patient today. Anticipate d/c to [facility] once pre-cert approved. SIGNATURE: Kaelyn Hugo RN PATIENT NAME: Dia Mccullough DATE: October 17, 2017 TIME: 11:05 AM PAGER/CONTACT #: [phone] Kaelyn Hugo RN, RN 10/17/2017 11:21 AM Signed CARE MANAGEMENT PROGRESS NOTE SERVICE DATE: 10/17/2017 SERVICE TIME: 1118 LOS: 6 days Spoke with patient at bedside. Patient does not want to wait for insurance approval for [facility] facility. She states that if insurance doesn't approve SNF today then she will just go home. Educated patient on importance of following physical therapy's recommendations for [facility] Facility placement. Patient not agreeable to that plan. Requesting home physical therapy services. Referral sent to S. SIGNATURE: Kaelyn Hugo RN PATIENT NAME: Dia Mccullough DATE: October 17, 2017 TIME: 11:18 AM PAGER/CONTACT #: [phone] Misael Wei MD 10/17/2017 12:51 PM Signed [...] CREAT 1.23* 1.36* No results found for: [facility] Impression/Recommendations Principal Problem: Intra-abdominal abscess [...] 2017 TIME: 12:44 PM PAGER/CONTACT #: [phone] Nadege Hansen PTA 10/17/2017 3:33 PM Attested Attestation signed by Carlos Enrique (Pt) Justin at 10/17/2017 3:59 PM I reviewed and agree with the documentation corresponding to this therapy visit. SIGNATURE: Carlos Enrique Anderson, PT DATE: October 17, 2017 TIME: 3:59 PM Physical Therapy Treatment SERVICE DATE: 10/17/2017 SERVICE TIME: 1445 to 1508 ROOM: [id number] Recommended Discharge Disposition: Subacute/SNF Justification For Post [...] gait and mobility-other Interventions Provided: Therapeutic Exercise (80637);Therapeutic Activity (10615) Therapeutic Exercise (22061) Treatment Minutes: 13 1 unit Skilled Intervention(s): Instruction in General strenght program: ankle pump, quad set, glute set, adductor set, hip abduction/adduction, heel slide, short arc quad, long arc quad 2 x 10 reps with both legs. Verbal and tactile cuing provided for proper alignment and technique. Therapeutic Activity (68214) Treatment Minutes: 10 1 unit Skilled Intervention(s): [...] Lives With: Self/Alone Assistance Available: time study analyst (Dtr nearby) Entry To Home: No Stairs [...] at home for a week. Now developed Marina HUBER hematoma. OBJECTIVE: CURRENT FUNCTIONAL STATUS: Current Functional [...] 17, 2017 TIME: 3:16 PM PAGER/CONTACT #: [phone] Kaelyn Hugo RN, RN 10/17/2017 4:17 PM Signed CARE MANAGEMENT PROGRESS NOTE SERVICE DATE: 10/17/2017 SERVICE TIME: 1615 LOS: 6 days Spoke with patient and patient's son. Patient would now like to proceed with placement at SNF. Sent updated PT noted per t's request. Awaiting pre-cert approval. Anticipate approval tomorrow. SIGNATURE: Kaelyn Hugo RN PATIENT NAME: Dia Mccullough DATE: October 17, 2017 TIME: 4:16 PM PAGER/CONTACT #: [phone] Kaelyn Hugo RN, RN 10/18/2017 10:32 AM Signed CARE MANAGEMENT PROGRESS NOTE SERVICE DATE: 10/18/2017 SERVICE TIME: 1031 LOS: 7 days Chart reviewed. Received auth from [facility]. Transport arranged for 1 pm via [employer]. Patient and patient's son agreeable with plan. RN notified. SIGNATURE: Kaelyn Hugo RN PATIENT NAME: Dia Mccullough DATE: October 18, 2017 TIME: 10:31 AM PAGER/CONTACT #: [phone] Erika Mckeon MD, MD 10/18/2017 7:59 PM Signed DISCHARGE SUMMARY PATIENT NAME: Dia Mccullough ADMISSION DATE: 10/08/2017 DISCHARGE DATE: 10/18/2017 ATTENDING PHYSICIAN: No att. providers found REASON FOR HOSPITALIZATION: Intraabdominal abscess DISCHARGE DIAGNOSES 1. Intra abd abscess 2/2 complicated diverticulitis: 2. Sigmoid diverticulitis 3. Recent hx of DVT and PE 4. LLE Hematoma: ? 5. Anemia 6. CKD stage 3 7. Leechburg's disese CONSULTATION TEAMS DURING HOSPITALIZATION: ID, OPERATIONS [...] tablet Comments: Reason for Stopping: DISCHARGE DISPOSITION: [facility] Facility FOLLOW-UP APPOINTMENTS ALREADY SCHEDULED WITH A [facility] PROVIDER No future appointments. TIME OF CARE: Discharge Management: I personally spent greater than 30 minutes involved in the discharge management of this patient. SIGNATURE: Erika Mckeon MD PAGER/CONTACT #: DATE: October 18, 2017 TIME: 7:36 PM PROTHROMBIN TIME W/INR Collected: 10/26/2017 Status: F Source: [place] 5:[place] [facility] [place] CODE TESTS RESULT OUT OF RANGE REFERENCE UNITS LAB L300.4150 11.7-14.9 SECONDS High PROTIME 34.6 LAB L300.4200 Normal INR 3.4 Performed By: #### L300.3900 #### [facility] [address] [place], [address] PROTHROMBIN TIME W/INR Collected: 10/25/2017 Status: F Source: [place] 5:50 AM [facility] [place] TYPE CODE TESTS RESULT OUT OF RANGE REFERENCE UNITS LAB L300.4150 11.7-14.9 SECONDS High PROTIME 31.9 LAB L300.4200 Normal INR 3.1 Performed By: #### L300.3900 #### [facility] [address], [address] CBC W/DIFF, AUTOMATED Collected: 10/25/2017 Status: F Source: [place] 5:50 AM [facility] [place] TYPE CODE TESTS RESULT OUT OF [...] CELLS 2+ Performed By: #### L100.0100 #### [facility] [address] [place], [place], [address] BASIC METABOLIC Collected: 10/25/2017 Status: F Source: [place] PROFILE (BMP) 5:50 AM [facility] [place] TYPE CODE TESTS RESULT OUT OF [...] GAP 8 Performed By: #### L500.2500 #### [facility] [address] [place], [address] PROTHROMBIN TIME W/INR Collected: 10/24/2017 Status: F Source: [place] 5:10 AM [facility] [place] Order Comment: ORDERED FROM DT REQ TYPE CODE TESTS RESULT OUT OF RANGE REFERENCE UNITS LAB L300.4150 11.7-14.9 SECONDS High PROTIME 26.2 LAB L300.4200 Normal INR 2.4 Performed By: #### L300.3900 #### [facility] [address] [place], [address] PROTHROMBIN TIME W/INR Collected: 10/23/2017 Status: F Source: [place] 6:00 AM [facility] [place] Order Comment: ORDERED ON DOWNTIME TYPE CODE TESTS RESULT OUT OF RANGE REFERENCE UNITS LAB L300.4150 11.7-14.9 SECONDS High PROTIME 25.0 LAB L300.4200 Normal INR 2.3 Performed By: #### L300.3900 #### [facility] [address] [place], [address] PROTHROMBIN TIME W/INR Collected: 10/23/2017 Status: F Source: [place] 5:55 AM [facility] [place] Order Comment: RESULT(S) PREVIOUSLY REPORTED ON MANUAL REQUISITION DURING DOWNTIME. TYPE CODE TESTS RESULT OUT OF RANGE REFERENCE UNITS LAB L300.4150 11.7-14.9 SECONDS High PROTIME 25.0 LAB L300.4200 Normal INR 2.3 Performed By: #### L300.3900 #### [facility] [address] [facility] [address] PROTHROMBIN TIME W/INR Collected: 10/22/2017 Status: F Source: [place] 12:00 AM [facility] [place] Order Comment: RESULT(S) PREVIOUSLY REPORTED ON MANUAL REQUISITION DURING DOWNTIME. TYPE CODE TESTS RESULT OUT OF RANGE REFERENCE UNITS LAB L300.4150 11.7-14.9 SECONDS High PROTIME 22.8 LAB L300.4200 Normal INR 2.0 Performed By: #### L300.3900 #### [facility] [address] [facility] [address] PROTHROMBIN TIME W/INR Collected: 10/21/2017 Status: F Source: [place] 5:55 AM [facility] [place] Order Comment: RESULT(S) PREVIOUSLY REPORTED ON MANUAL REQUISITION DURING DOWNTIME. TYPE CODE TESTS RESULT OUT OF RANGE REFERENCE UNITS LAB L300.4150 11.7-14.9 SECONDS High PROTIME 16.1 LAB L300.4200 Normal INR 1.3 Performed By: #### L300.3900 #### [facility] [address] [place], [address] PROTHROMBIN TIME W/INR Collected: 10/20/2017 Status: F Source: [place] 6:00 AM [facility] [place] Order Comment: RESULT(S) PREVIOUSLY REPORTED ON MANUAL REQUISITION DURING DOWNTIME. TYPE CODE TESTS RESULT OUT OF RANGE REFERENCE UNITS LAB L300.4150 11.7-14.9 SECONDS High PROTIME 16.1 LAB L300.4200 Normal INR 1.3 Performed By: #### L300.3900 #### [facility] [address] 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 She was brought here for surgical eval from [facility], but declined operative intervention and requested to [...] more bleeding, and she went to the [facility] ED this morning. She was discharged back home after wound evaluation and no finding of circulatory compromise. Her son then brought her back to the ED with a concern over abdominal pain and insistent on hospitalization per [facility] ED notes. Eval included CT abdomen which [...] dependent PAST MEDICAL HISTORY Diagnosis Date - Leechburg disease - Asthma - CKD (chronic kidney [...] - Normocytic anemia - PE (pulmonary thromboembolism) ([facility]) 01/05/14 Bilat, extensive - Pulmonary [...] MEDICATIONS Please see reconciled medication list in [facility] for details on home medications. ALLERGIES Allergen [...] Intra-abdominal abscess (HCC) Parties in Attendance: Patient, DrLuis E Clemens MD, Decisional Capacity: full Code Status: DNR-CCA Time Spent on [facility] Plannin minutes Total time 50 minutes during this encounter, including chart review, discussion with nursing staff and/or other providers, documentation, mail order biller, and [id number] time with patient. Of this time, greater than 50% was spent counseling and coordinating care. Counseling elements include educating the patient about diagnosis, further testing, and care related to Intra-abdominal abscess (HCC). Plan of care discussed with: Patient and RN VTE Prophylaxis: Patient is already anti-coagulated. Diagnostic tests reviewed for today's visit: Most recent labs and imaging results. Most recent EKG TELEMETRY: [facility] Imaging Services [address] [place] [address] Abdomen/Pelvis without Cont MR#: [id number] Acct: [id number] Name: DIA MCCULLOUGH Rep #: [id number] : [id number] F [id number] From: Mckay Faulkner MD PCP: Jared Romero MD Status: REG ER Study: Abdomen/Pelvis without Cont Date of Exam: 10/08/17 Exam# [id number] Ordering Dr: Ronn Marrero MD STUDY: CT [...] AND WEEKEND COVERAGE: After 7pm please page [phone] Gold Clemens MD 10/09/2017 6:45 AM Signed [...] year old female recently admitted 08/24/17 from [facility] for diverticular abscess/perforation and septic shock. After multiple discussion (with patient/family) regarding recommendations for surgery, patient was discharged to hospice at patient's request on po antibiotics. 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 Readmitted yesterday for CT [...] excluded. PAST MEDICAL HISTORY Diagnosis Date - Collin [...] Take 1 tablet by mouth once daily. 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 After 5pm and on Weekends and Holidays, please page [phone] if in ICU or [phone] if on RNF. SIGNATURE: Lina Damico MD PATIENT NAME: Dia Mccullough DATE: October 09, 2017 TIME: 8:59 AM PAGER: [phone] Attending Note I evaluated the patient and [...] AND WEEKEND COVERAGE: After 7pm please page [phone] CHIEF COMPLAINT: bleeding in left leg SUBJECTIVE: 6 weeks ago she had bowel perforation and was brought in here. She decided not to have surgery and was sent home on 2 weeks of oral abx. 2 weeks later she has hematemesis while on coumadin. She was treated with vit k at [facility] and was sent to hospice IPU. She [...] or IVC filter. Will get opinion of fleet technician- has seen Dr Irizarry in the past. Check ferritin, retic, vitamin b12 and folate. This was discussed with patient and later with son on the phone She is DNRCCA and no mechanical ventilation for respiratory distress either. VTE Prophylaxis: Patient is already anti-coagulated. 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 Listened empathetically to pt's concerns. Reminded pt of 06/12 SC. Signature: CHAPLAIN Wilbert To contact the Spiritual Care Department: Please call [phone] or Page the On-Call Healthcare Specialist at pager [phone] Thank you for the opportunity to be [...] 77 year old female who was in [facility] in August for perforated bowel Had refused surgery and actually went home on hospice and on oral antibiotics. Has been receiving blood thinner. Recently had hematoma of the left leg. Per [facility], she was brought back to [facility] ED for abdominal pain. There, it was [...] flagyl. PAST MEDICAL HISTORY Diagnosis Date - Leechburg disease - Asthma - CKD (chronic kidney [...] Take 1 tablet by mouth once daily. 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) Disp: Rfl: 10/07/2017 at Unknown time Current [...] October 09, 2017 TIME: 4:02 PM PAGER: [phone] Randi Koenig MD 10/10/2017 7:10 AM Attested [...] 0659 10/10/17 07 - 10/11/17 0659 Shift 6135-5241 9234-8420 8303-0289 24 Hour Total 9501-4572 4815-6517 7577-4037 24 Hour Total I N T A K E PO 240 240 480 PO 240 240 480 IV 1000 1000 LR 1000 1000 Shift Total 7886 655 4180 O U T P U T Urine [...] clinically resolved - DVT (deep venous thrombosis) ([facility]) 01/08/2014 Overview Note: recurrent 77 [...] October 10, 2017 TIME: 7:05 AM Pager: [phone] Jose Maria Mittal MD 10/10/2017 11:50 AM Signed [facility] MEDICINE PROGRESS NOTE SERVICE DATE: 10/10/2017 SERVICE TIME: 11:27 AM Hospital Medicine/Primary Attending: Jose Maria Mittal MD NIGHT AND WEEKEND COVERAGE: After 7pm please page [phone] CHIEF COMPLAINT: left leg hematoma. SUBJECTIVE: No [...] ml/min (11/28/2014) Venous insufficiency (chronic) (peripheral) () Leechburg disease () Traumatic hematoma of left lower [...] 10, 2017 TIME: 11:27 AM PAGER/CONTACT #: [phone] Zhane Mcgovern III, MD 10/10/2017 2:52 PM [...] October 10, 2017 TIME: 2:48 PM PAGER: [phone] Teetee Mendez, RN, RN 10/10/2017 10:04 PM Addendum Sound paged to notify that the patient is requesting something for anxiety. Ativan 0.25 mg ordered once by AMMY Figueroa. AMMY Figueroa of [facility] notified that the patient received half of the dose of meropenem and then refused the other half related to GI upset. Previous Version Kaycee Figueroa, JON.AMMY 10/11/2017 4:00 AM Signed IM [facility] NIGHT TEAM Called by general surgery resident regarding possible per drain in AM after ct complete. She discussed discontinuing lovenox and adding heparin gtt instead overnight. After procedure patient can be placed back on therapeutic lovenox. Discussed change with RN. Kaycee Figueroa DIRECTOR DIGITAL SALES [phone] Shauna Pulido MD 10/11/2017 6:43 AM Attested [...] 10/11/17 0659 10/11/17699 - 10/12/17 0659 Shift 0634-0117 8580-7412 3859-4514 24 Hour Total 1765-2159 1329-5277 6924-4891 24 Hour Total I N T A [...] Leg hematoma, left, initial encounter 10/08/2017 - Leechburg disease Chronic - Venous insufficiency (chronic) (peripheral) - CKD (chronic kidney disease) stage 3, GFR 30-59 ml/min 11/28/2014 - Pulmonary emboli (HCC) 01/30/2014 Overview Note: clinically resolved - DVT (deep venous thrombosis) ([facility]) 01/08/2014 Overview Note: recurrent 77 [...] 11, 2017 6:41 AM [facility] #: Pager: [phone] Previous Version Antione Irizarry MD 10/11/2017 11:43 [...] October 11, 2017 TIME: 8 AM PAGER: [phone] Jose Maria Mittal MD 10/11/2017 9:44 AM Addendum DEPARTMENT OF HOSPITAL MEDICINE PROGRESS NOTE SERVICE DATE: 10/11/2017 SERVICE TIME: 9:22 AM Hospital Medicine/Primary Attending: Jose Maria Mittal MD NIGHT AND WEEKEND COVERAGE: After 7pm please page [phone] CHIEF COMPLAINT: left leg hematoma. Intraabdominal abscess. [...] 11, 2017 TIME: 9:22 AM PAGER/CONTACT #: [phone] Previous Version Chaplain Daley Chaplain 10/11/2017 12:05 PM Signed SPIRITUALCARE Spiritual Care Visit- Brief Note Name: Dia Mccullough Date: October 11, 2017 Notes: Per PT has multiple health issues and was scheduled for a test. She looked to be calm, took a prayer and was thankful for the [place] support. Healthcare Specialist Signature: Chaplain Thuy To contact the Spiritual Care Department: Please call [phone] or Page the On-Call at pager [phone] Thank you for the opportunity to be of service. This is an electronically created document. IF PRINTED, PLEASE DO NOT REMOVE FROM THE CHART OR MODIFY PRINTED COPY. Chaplain Daley Chaplain 10/11/2017 12:06 PM Signed Spiritual Care Record ? Anointing/[place] PATIENT NAME: Dia Mccullough DATE: October 11, 2017 NOTE: Patient was anointed by Fr. ireland from [facility] on (date): 10/11/17. Signature: Fr Shu Strong, Healthcare Specialist Question? Please contact the Spiritual Care Department [...] scanned documents. Patient seen by Carol Neal NP and lacey RN. Left lower leg hematoma with area of congealed blood and distal fluid filled area. Xeroform, dry gauze dressing, and DARCY wrap daily. Plastic Surgery consulted for hematoma evacuation. Wound care to follow. SIGNATURE: Laly Justice RN PATIENT NAME: Dia Mccullough DATE: October 11, 2017 TIME: 3:13 PM CONTACT#: [id number] Misael Wei MD 10/11/2017 3:38 PM Signed [...] 11, 2017 TIME: 3:22 PM PAGER/CONTACT #: [phone] Timothy Rush MD 10/11/2017 3:56 PM Signed [...] DATE: 10/11/17 NAME: Dia Mccullough LOG ID: [id number] Pre-Procedure Diagnosis: Pelvic abscess Route Salesperson: Surgeon(s) and Role: * Timothy Rush - [...] October 12, 2017 TIME: 8 AM PAGER: [phone] Shauna Pulido MD 10/12/2017 9:21 AM Attested [...] Date 10/11/17 0700 - 10/12/17 0659 10/12/17 0700 - 10/13/17 0659 Shift 2633-4038 3486-7537 3749-6938 24 Hour Total 6960-6830 1402-5986 9105-9620 24 Hour Total I N T A K E PO 360 120 480 PO 360 120 480 IV 1100 1100 1000 1000 LR 1000 1000 1000 1000 Meropenem (Merrem) 100 100 Irrigants 5 5 Irrigant/Flush Amount In (Drain/Tube 10/11/17 Toby Sherwood Left Lower Quadrant Abdomen Drain #1) 5 5 Shift Total 2472 723 9172 1000 1000 O U T P U [...] Leg hematoma, left, initial encounter 10/08/2017 - Leechburg disease Chronic - Venous insufficiency (chronic) (peripheral) - CKD (chronic kidney disease) stage 3, GFR 30-59 ml/min 11/28/2014 - Pulmonary emboli (HCC) 01/30/2014 Overview Note: clinically resolved - DVT (deep venous thrombosis) ([facility]) 01/08/2014 Overview Note: recurrent 77 [...] 12, 2017 9:21 AM [facility] #: Pager: [phone] Joan Masters, RN, RN 10/12/2017 10:02 AM Signed CARE MANAGEMENT: ASSESSMENT AND DISCHARGE PLAN SERVICE DATE: 10/12/2017 SERVICE TIME: 0956 PRIMARY CARE PHYSICIAN: Rika Wheeler MD ADMISSION STATUS: Inpatient Needs Prior to Discharge: Wound Care;Home Care Order;OT/PT Evaluation 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 No [...] 0 I feel financially burdened by my rno-yh-uzefar expenses for my prescription medication: Disagree mostly [...] Yes C POTENTIAL TRANSITION PLANS Home Home Fdc OT/PT Chart reviewed, spoke with RN. Spoke with pt at bedside who reports she is from a single story home alone, but has family support. Would like [facility] for wound care and would be agreeable to home PT/OT if needed. Await PT/OT eval (ordered) for further planning. SIGNATURE: Joan Masters RN PATIENT NAME: Dia Mccullough DATE: October 12, 2017 TIME: 9:56 AM PAGER/CONTACT #: [phone] Lacy Valdez MD 10/12/2017 8:12 PM Signed [...] - Normocytic anemia - PE (pulmonary thromboembolism) ([facility]) 01/05/14 Bilat, extensive - Pulmonary [...] Take 1 tablet by mouth once daily. 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 She understands this [...] 12, 2017 TIME: 1:46 PM PAGER/CONTACT #: [phone] [place] OTR/Marina 10/12/2017 2:52 PM Signed Occupational Therapy Evaluation SERVICE DATE: 10/12/2017 SERVICE TIME: 1336 to 1406 ROOM: [place] [address] Recommended Discharge Disposition: Subacute/SNF Recommended Discharge Disposition Comments: Pt is limited with her mobility and ADL participation due to the L LE hematoma and abdominal pain from her abdominal abcess/drain placement. Pt has been to [facility] in the past and had a [...] on feet Interventions Provided: Evaluation;Self Fdc Management (09190) $ Evaluation-Moderate (91466) Billed Units: 1 unit Self Fdc Management (02047) Treatment Minutes: 14 1 unit Skilled Intervention(s): [...] CODE: OT 6 Clicks Score: 14 (10/12/17 188) Self Care Current Status (G8987): CK (10/12/17 133) Self Care Goal Status (G8988): CJ (10/12/171335) [...] was brought here for surgical eval from [facility], but declined operative intervention and requested to [...] more bleeding, and she went to the [facility] ED this morning. She was discharged back home after wound evaluation and no finding of circulatory compromise. Her son then brought her back to the ED with a concern over abdominal pain and insistent on hospitalization per [facility] ED notes. Eval included CT abdomen which [...] - Leg hematoma, left, initial encounter - Leechburg disease - Venous insufficiency (chronic) (peripheral) - CKD (chronic kidney disease) stage 3, GFR 30-59 ml/min - Pulmonary emboli (HCC) clinically resolved - DVT (deep venous thrombosis) (HCC) recurrent PAST MEDICAL HISTORY Diagnosis Date - Leechburg disease - Asthma - CKD (chronic kidney [...] HTN (hypertension) - Hypercholesterolemia - Inflammatory polyarthritis ([facility]) Dr. Hansen - Inflammatory polyarthropathy - Normocytic anemia - PE (pulmonary thromboembolism) ([facility]) 01/05/14 Bilat, extensive - Pulmonary [...] Post acute placement Relevant Past Medical History: Leechburg's, CKD, DVT/PE, fibromyalgia, HTN, R hip endo 2013 back sx, Patient Report: Pt in room cooperative and asking to get out of bed. Pain: 8/10 L LE after movement Home Environment Patient Lives With: Self/Alone Assistance Available: time study analyst (Dtr nearby) Entry To Home: No Stairs [...] complete details for this therapy evaluation/treatment. SIGNATURE: [place] OTR/L PATIENT NAME: Dia Mccullough DATE: October 12, 2017 TIME: 2:45 PM PAGER: [phone] Karin Dow MD 10/12/2017 6:00 PM Signed DEPARTMENT OF HOSPITAL MEDICINE PROGRESS NOTE SERVICE DATE: 10/12/2017 SERVICE TIME: 3:16 PM Hospital Medicine/Primary Attending: Karin Dow MD NIGHT AND WEEKEND COVERAGE: From 7am - 7pm, please call [phone] After 7pm, please call cross cover pager #[phone] Subjective INTERVAL HPI: Patient seen and examined. [...] 2300 vte non-pharmacologic prophylaxis - none indicated (va,ks) 10/08/17 2300 vte current anticoag therapy ([place]) VTE Prophylaxis: VTE prophylaxis appropriate Disposition: SNF Plan of care discussed with: Patient SIGNATURE: Karin Dow MD PATIENT NAME: Dia Mccullough DATE: October 12, 2017 TIME: 3:16 PM PAGER/CONTACT #: [phone] Joan Masters, RN, RN 10/12/2017 3:22 PM Signed CARE MANAGEMENT PROGRESS NOTE SERVICE DATE: 10/12/2017 SERVICE TIME: 1521 LOS: 1 day Needs Prior to Discharge: Accepting Facility;Bed Availability;Precertification;Discharge Transportation Spoke with Pt after PT/OT eval, pt agreeable to SNF at [place]. Would like [facility] as first choice. Will need precert. SIGNATURE: Joan Masters RN PATIENT NAME: Dia Mccullough DATE: October 12, 2017 TIME: 3:21 PM PAGER/CONTACT #: [phone] Radha Aceves, PT 10/12/2017 3:38 PM Signed Physical Therapy Evaluation SERVICE DATE: 10/12/2017 SERVICE TIME: 1455 to 1520 ROOM: [place] [address] Recommended Discharge Disposition: Subacute/SNF Justification For Post [...] gait and mobility-other Interventions Provided: Evaluation;Therapeutic Activity (14291) $ Evaluation-Low (82893) Billed Units: 1 unit Therapeutic Activity (14328) Treatment Minutes: 9 1 unit Skilled Intervention(s): [...] was brought here for surgical eval from [facility], but declined operative intervention and requested to [...] more bleeding, and she went to the [facility] ED this morning. ?She was discharged back home after wound evaluation and no finding of circulatory compromise. ?Her son then brought her back to the ED with a concern over abdominal pain and insistent on hospitalization per [facility] ED notes. ?Eval included CT abdomen which showed a 5 cm abscess/phlegmon in the same area as the original perforation, and she was recommended to be transferred to have IR evaluation of percutaneous drainage.??? Reason for Physical Therapy Consult : weakness Relevant Past Medical History: Leechburg's, CKD, DVT/PE, fibromyalgia, HTN, R hip endo 2013 back sx, Active Hospital Problems Diagnosis - Intra-abdominal abscess (HCC) - Traumatic hematoma of left lower leg - Leg hematoma, left, initial encounter - Leechburg disease - Venous insufficiency (chronic) (peripheral) - [...] - Normocytic anemia - PE (pulmonary thromboembolism) ([facility]) 01/05/14 Bilat, extensive - Pulmonary [...] DUPLEX BOTH LOWER EXTREMITIES 05/12/2016 Patient Report: 8 pain L lower extremity. Agreeable to PT. I know I cannot go back home like this Home Environment Patient Lives With: Self/Alone Assistance Available: time study analyst (Dtr nearby) Entry To Home: No Stairs [...] 12, 2017 TIME: 3:33 PM PAGER/CONTACT #: [phone] Summer Farias, Mule Rider 10/12/2017 3:45 PM Signed SNF referral sent to [facility] Debbie Hilton RN, RN 10/13/2017 11:09 AM Signed Received message through Joan Masters, Ekg Tech that [facility] will be able to accept pt [...] 230 vte non-pharmacologic prophylaxis - none indicated (va,ks) 10/08/17 230 vte current anticoag therapy ([place]) VTE Prophylaxis: VTE prophylaxis appropriate SIGNATURE: Lory Garces MD PATIENT NAME: Dia Mccullough DATE: October 13, 2017 TIME: 11:11 AM PAGER: Vincent Hilton, RN, RN 10/13/2017 2:45 PM Signed [facility] with [facility] She will start precert for pt [...] I recommend continued iv antibiotic therapy at [facility] at least initially. Pt declines, wants to [...] (va,oh) 10/08/17 2300 vte current anticoag therapy ([place]) VTE Prophylaxis: VTE prophylaxis appropriate SIGNATURE: Lory Garces MD PATIENT NAME: Dia Mccullough DATE: October 14, 2017 TIME: 12:49 PM PAGER: Vincent Hilton, RN, RN 10/14/2017 2:41 PM Signed Spoke with Allie @ [facility]. They cancelled precert for this patient [...] GFR 30-59 ml/min Venous insufficiency (chronic) (peripheral) Leechburg disease Traumatic hematoma of left lower leg Leg hematoma, left, initial encounter Resolved Problems: * No resolved hospital problems. * OPERATIONS PERFORMED WHILE IN THE HOSPITAL: None IMPORTANT TEST/PROCEDURES: No procedures performed TEST RESULTS NOT AVAILABLE AT THIS TIME: No pending results Discharge Disposition Discharge Disposition: [facility] Facility - Greater than 30 Days Activity When You Leave the Hospital Resume pre-hospital activity Diet Instructions Resume your pre-hospital diet Follow Up Appointments Follow-Up Appointment When: In 4 weeks Misael Wei [phone] [place] [address] [facility] [address] PCP Requested Referral Follow-Up Appointment When: In 1 week Rika Wheeler [phone] [address] [facility] [address] PCP Requested Referral Additional Provider to Provider [...] be performed due to insurance reasons at [facility], d/w patient, and she would prefer to still go to [facility] and get CT scan only even though [...] Polyarthritis FOLLOW-UP APPOINTMENTS ALREADY SCHEDULED WITH A [facility] PROVIDER: No future appointments. DISCHARGE [...] RN, RN 10/14/2017 6:23 PM Addendum 1822- [facility] has not called back stating if the patient has received precert. RN spoke with Joan customer care team coach and she states she has not heard anything back from [facility]. Patient updated. 1630-Per customer care team coach Debbie davis precert is no longer active and states that [facility] is working towards new precert for later today. RN and customer care team coach updated patient on discharge situation. Previous Version Keya Robles RN, RN 10/15/2017 9:52 AM Signed CARE MANAGEMENT PROGRESS NOTE SERVICE DATE: 10/15/2017 SERVICE TIME:9:49 A.M. Spoke with Allie, staff member [facility] They do not have pre-cert at this time so patient is unable to come to them this weekend. The earliest would be Tuesday, if they can obtain if at that time. LOS: 4 days SIGNATURE: Keya Robles RN PATIENT NAME: Dia Mccullough DATE: October 15, 2017 TIME: 9:49 AM PAGER/CONTACT #: [phone] Patsy Kirby MD, MD 10/16/2017 5:52 AM [...] mg ORAL q 12 H Jose Maria Magdalenoudhary 25 mg at 10/15/172007 acetaminophen 650 mg [...] clinically resolved - DVT (deep venous thrombosis) ([facility]) 01/08/2014 Overview Note: recurrent Assessment/Plan [...] be performed due to insurance reasons at [facility], d/w patient, and she would prefer to still go to [facility] and get CT scan only even though [...] follow. ? 5. ?CKF S3 ? 6. ?Leechburg's Dz - prednisone ? ? 7. ?PMR/Inflammatory [...] 2300 vte non-pharmacologic prophylaxis - none indicated (va,ks) 10/08/17 2300 vte current anticoag therapy (va,ks) Disposition: SNF,pending precert Plan of care discussed with: Patient and RN SIGNATURE: Patsy Kirby MD PATIENT NAME: Dia Mccullough DATE: October 15, 2017 TIME: 8:18 PM PAGER/CONTACT #: monica sparksx [phone] Patsy Kirby MD, MD 10/17/2017 3:57 AM [...] tablet ORAL q 4 H PRN Kaycee ([employer] [place] 1 tablet at 10/15/17 0857 polyethylene [...] be performed due to insurance reasons at [facility] d[facility]w patient, and she would prefer to still go to [facility] and get CT scan only even though [...] 2300 vte non-pharmacologic prophylaxis - none indicated (va,ks) 10/08/17 2300 vte current anticoag therapy (va,ks) Disposition: SNF,pending precert Plan of care discussed with: Patient and RN SIGNATURE: Patsy Kirby MD PATIENT NAME: Dia Mccullough DATE: October 16, 2017 TIME: 10:00 PM PAGER/CONTACT #: monica castano etx [phone] Mal Zavala MD 10/17/2017 4:36 PM Signed INTERNAL MEDICINE PROGRESS NOTE SERVICE DATE: 10/17/2017 SERVICE TIME: 956 Subjective Pt doing okay. Still has dry [...] Lymph 1.18 - 3.74 thou/cmm 1.39 Abs. Greeley 0.27 - 0.70 thou/cmm 0.69 Abs. Eosin [...] Addisons: -cont prednisone [facility] [place] 4 wk of po abx. ID f/u in 4 wk. Cont to monitor cough, if fever or wbc check cxr. Consult: plastic, surgery, ID, heme onc, Mal Zavala MD October 17, 2017 4:36 PM SIGNATURE: Mal Zavala MD PATIENT NAME: Dia Mccullough DATE: October 17, 2017 TIME: 9:57 AM PAGER/CONTACT #: [phone] Rain Hung MD 10/17/2017 10:14 AM Signed INTERVENTIONAL RADIOLOGY POST PROCEDURE NOTE DATE: 10/17/17 NAME: Dia Mccullough LOG ID: [id number] Pre-Procedure Diagnosis: Pelvic abscess, likely 2/2 ruptured diverticulitis, s/p percutaneous drain placement Post Procedure Diagnosis: Same. Route Salesperson: Dr. Rain Anabell Procedure: Fluoroscopic guided abscessogram Anesthesia: None Findings: [...] will eval patient today. Anticipate d/c to [facility] once pre-cert approved. SIGNATURE: Kaelyn Hugo RN PATIENT NAME: Dia Mccullough DATE: October 17, 2017 TIME: 11:05 AM PAGER/CONTACT #: [phone] Kaelyn Hugo RN, RN 10/17/2017 11:21 AM Signed CARE MANAGEMENT PROGRESS NOTE SERVICE DATE: 10/17/2017 SERVICE TIME: 1118 LOS: 6 days Spoke with patient at bedside. Patient does not want to wait for insurance approval for fci facility. She states that if insurance doesn't approve SNF today then she will just go home. Educated patient on importance of following physical therapy's recommendations for [facility] Facility placement. Patient not agreeable to that plan. Requesting home physical therapy services. Referral sent to S. SIGNATURE: Kaelyn Hugo RN PATIENT NAME: Dia Mccullough DATE: October 17, 2017 TIME: 11:18 AM PAGER/CONTACT #: [phone] Misael Wei MD 10/17/2017 12:51 PM Signed [...] CREAT 1.23* 1.36* No results found for: VANCGALVESTON Impression/Recommendations Principal Problem: Intra-abdominal abscess (HCC) POA: [...] 17, 2017 TIME: 12:44 PM PAGER/CONTACT #: [phone] Nadege Hansen PTA 10/17/2017 3:33 PM Attested Attestation signed by Carlos Enrique SargentPt) Justin at 10/17/2017 3:59 PM I reviewed and agree with the documentation corresponding to this therapy visit. SIGNATURE: Carlos Enrique Anderson, PT DATE: October 17, 2017 TIME: 3:59 PM Physical Therapy Treatment SERVICE DATE: 10/17/2017 SERVICE TIME: 1445 to 1508 ROOM: [place] [address] Recommended Discharge Disposition: Subacute/SNF Justification For Post [...] gait and mobility-other Interventions Provided: Therapeutic Exercise (54019);Therapeutic Activity (41319) Therapeutic Exercise (74256) Treatment Minutes: 13 1 unit Skilled Intervention(s): Instruction in General strenght program: ankle pump, quad set, glute set, adductor set, hip abduction/adduction, heel slide, short arc quad, long arc quad 2 x 10 reps with both legs. Verbal and tactile cuing provided for proper alignment and technique. Therapeutic Activity (02734) Treatment Minutes: 10 1 unit Skilled Intervention(s): [...] Consult : weakness Relevant Past Medical History: Leechburg's, CKD, DVT/PE, fibromyalgia, HTN, R hip endo 2013 back sx, Patient Report: Has increase throbbing pain to left lower extremity when in dependent position. Home Environment Patient Lives With: Self/Alone Assistance Available: time study analyst (Dtr nearby) Entry To Home: No Stairs [...] 17, 2017 TIME: 3:16 PM PAGER/CONTACT #: [phone] Kaelyn Hugo RN, RN 10/17/2017 4:17 PM [...] 17, 2017 TIME: 4:16 PM PAGER/CONTACT #: [phone] Kaelyn Hugo RN, RN 10/18/2017 10:32 AM Signed CARE MANAGEMENT PROGRESS NOTE SERVICE DATE: 10/18/2017 SERVICE TIME: 1031 LOS: 7 days Chart reviewed. Received auth from [employer]. Transport arranged for 1 pm via [employer]. Patient and patient's son agreeable with plan. RN notified. SIGNATURE: Kaelyn Hugo RN PATIENT NAME: Dia Mccullough DATE: October 18, 2017 TIME: 10:31 AM PAGER/CONTACT #: [phone] Erika Mckeon MD, 10/18/2017 7:59 PM Signed [...] tablet Comments: Reason for Stopping: DISCHARGE DISPOSITION: [facility] Facility FOLLOW-UP APPOINTMENTS ALREADY SCHEDULED WITH A [facility] PROVIDER No future appointments. TIME OF CARE: Discharge Management: I personally spent greater than 30 minutes involved in the discharge management of this patient. SIGNATURE: Erika Mckeon MD PAGER/CONTACT #: DATE: October 18, 2017 TIME: 7:36 PM CBC W/DIFF, AUTOMATED Collected: 10/19/2017 Status: F Source: [place] 12:00 AM [facility] [place] Order Comment: RESULT(S) PREVIOUSLY REPORTED ON [...] 1+ HYPOCHROMASIA Performed By: #### L100.0100 #### [facility] [address] [place], [address] PROTHROMBIN TIME W/INR Collected: 10/19/2017 Status: F Source: [place] 12:00 AM [facility] [place] Order Comment: RESULT(S) PREVIOUSLY REPORTED ON MANUAL REQUISITION DURING DOWNTIME. TYPE CODE TESTS RESULT OUT OF RANGE REFERENCE UNITS LAB L300.4150 11.7-14.9 SECONDS High PROTIME 15.2 LAB L300.4200 Normal INR 1.2 Performed By: #### L300.3900 #### [facility] [address] [place], [address] BASIC METABOLIC Collected: 10/19/2017 Status: F Source: [place] PROFILE (BMP) 12:00 AM [facility] [place] [place] Order Comment: RESULT(S) PREVIOUSLY REPORTED ON [...] GAP 9 Performed By: #### L500.2500 #### [facility] [address] [place], [address] CNDS Observed: 10/18/2017 Status: COMPLETED Source: [place] 1:30 PM CLINIC OTHER CAMPUS REPOSITORY HNO ID: [id number] Author: Erika Mckeon MD Service: Hospital Medicine [...] 5. Anemia 6. CKD stage 3 7. Leechburg's disese CONSULTATION TEAMS DURING HOSPITALIZATION: ID, OPERATIONS [...] tablet Comments: Reason for Stopping: DISCHARGE DISPOSITION: [facility] Facility FOLLOW-UP APPOINTMENTS ALREADY SCHEDULED WITH A [facility] PROVIDER No future appointments. TIME OF CARE: Discharge Management: I personally spent greater than 30 minutes involved in the discharge management of this patient. SIGNATURE: Erika Mckeon MD PAGER/CONTACT #: DATE: October 18, 2017 TIME: 7:36 PM CASE MANAGEM Observed: 10/18/2017 Status: COMPLETED Source: [place] 10:31 AM [facility] OTHER [place] REPOSITORY HNO ID: [id number] Author: Kaelyn SargentRn) GAURANG Hugo Service: Care Management Author Type: Registered Nurse Type: Care Mgt Progress Note Filed: 10/18/2017 10:32 AM Note Text: CARE MANAGEMENT PROGRESS NOTE SERVICE DATE: 10/18/2017 SERVICE TIME: 1031 LOS: 7 days Chart reviewed. Received auth from [employer]. Transport arranged for 1 pm via [employer]. Patient and patient's son agreeable with plan. RN notified. SIGNATURE: Kaelyn Hugo RN PATIENT NAME: Dia Mccullough DATE: October 18, 2017 TIME: 10:31 AM PAGER/CONTACT #: [phone] PROTIME Collected: 10/18/2017 Status: F Source: [facility] 6:20 AM [facility] REPOSITORY TYPE CODE TESTS RESULT OUT OF REFERENCE UNITS RANGE LAB PTI(LOINC) 9.3-11.9 sec Prothrombin Time 10.4 LAB INR(LOINC) INR 0.98 Result Comment: Standard Therapy 2.0-3.0 High Dose 2.5-3.5 Performed By: #### PT #### [place] [address] CASE MANAGEM Observed: 10/17/2017 Status: COMPLETED Source: [place] 4:16 PM [facility] OTHER [place] REPOSITORY HNO ID: [id number] Author: Kaelyn Allen) GAURANG Hugo Service: Care Management Author Type: Registered Nurse Type: Care Mgt Progress Note Filed: 10/17/2017 4:17 PM Note Text: CARE MANAGEMENT PROGRESS NOTE SERVICE DATE: 10/17/2017 SERVICE TIME: 1615 LOS: 6 days Spoke with patient and patient's son. Patient would now like to proceed with placement at SNF. Sent updated PT noted per Suze's request. Awaiting pre-cert approval. Anticipate approval tomorrow. SIGNATURE: Kaelyn Hugo RN PATIENT NAME: Dia Mccullough DATE: October 17, 2017 TIME: 4:16 PM PAGER/CONTACT #: [phone] THERAPY NT Observed: 10/17/2017 Status: COMPLETED Source: [place] 3:15 PM CLINIC OTHER CAMPUS REPOSITORY O ID: [id number] Author: Nadege Hansen Service: Physical Therapy Author Type: Bass Mechanism Maker Type: Therapy (PT/OT/Speech/Resp) Filed: 10/17/2017 3:33 PM Note Text: Attestation signed by Carlos Enrique Briggs) Justin at 10/17/2017 3:59 PM I reviewed and agree with the documentation corresponding to this therapy visit. SIGNATURE: Carlos Enrique Anderson, PT DATE: October 17, 2017 TIME: 3:59 PM Physical Therapy Treatment SERVICE DATE: 10/17/2017 SERVICE TIME: 1445 to 1508 ROOM: [id number] Recommended Discharge Disposition: Subacute/SNF Justification For Post [...] gait and mobility-other Interventions Provided: Therapeutic Exercise (78775);Therapeutic Activity (46753) Therapeutic Exercise (16986) Treatment Minutes: 13 1 unit Skilled Intervention(s): Instruction in General strenght program: ankle pump, quad set, glute set, adductor set, hip abduction/adduction, heel slide, short arc quad, long arc quad 2 x 10 reps with both legs. Verbal and tactile cuing provided for proper alignment and technique. Therapeutic Activity (09107) Treatment Minutes: 10 1 unit Skilled Intervention(s): [...] Consult : weakness Relevant Past Medical History: Leechburg's, CKD, DVT/PE, fibromyalgia, HTN, R hip endo 2013 back sx, Patient Report: Has increase throbbing pain to left lower extremity when in dependent position. Home Environment Patient Lives With: Self/Alone Assistance Available: time study analyst (Dtr nearby) Entry To Home: No Stairs [...] 17, 2017 TIME: 3:16 PM PAGER/CONTACT #: [phone] CONSULT PROG Observed: 10/17/2017 Status: COMPLETED Source: [place] 12:44 PM CLINIC OTHER CAMPUS REPOSITORY O ID: [id number] Author: Misael Wei Service: Infectious Disease Author [...] CASE MANAGEM Observed: 10/17/2017 Status: COMPLETED Source: [place] 11:18 AM [facility] OTHER CAMPUS REPOSITORY O ID: [id number] Author: Kaelyn (Gaurang) GAURANG Hugo Service: Care Management Author Type: Registered Nurse Type: Care Mgt Progress Note Filed: 10/17/2017 11:21 AM Note Text: CARE MANAGEMENT PROGRESS NOTE SERVICE DATE: 10/17/2017 SERVICE TIME: 1118 LOS: 6 days Spoke with patient at bedside. Patient does not want to wait for insurance approval for [facility]ci facility. She states that if insurance doesn't approve SNF today then she will just go home. Educated patient on importance of following physical therapy's recommendations for [facility] placement. Patient not agreeable to that plan. Requesting home physical therapy services. Referral sent to [facility]. SIGNATURE: Kaelyn Hugo RN PATIENT NAME: Dia Mccullough DATE: October 17, 2017 TIME: 11:18 AM PAGER/CONTACT #: [id number] CASE MANAGEM Observed: 10/17/2017 Status: COMPLETED Source: [place] 11:04 AM [facility] REPOSITORY HNO ID: [id number] Author: Kaelyn SargentRn) GAURANG Hugo Service: Care [...] 17, 2017 TIME: 11:05 AM PAGER/CONTACT #: [id number] [facility] Observed: 10/17/2017 Status: COMPLETED Source: [place] 10:57 AM [facility] REPOSITORY HNO ID: [id number] Author: Becca Baptiste RN Service: Nursing Author [...] OP NOT Observed: 10/17/2017 Status: COMPLETED Source: [place] 10:13 AM [facility] REPOSITORY HNO ID: [id number] Author: Rain Hung Service: Radiology Author Type: Physician Type: Brief Op Note Filed: 10/17/2017 10:14 AM Note Text: INTERVENTIONAL RADIOLOGY POST PROCEDURE NOTE DATE: 10/17/17 NAME: Dia Mccullough LOG ID: [id number] Pre-Procedure Diagnosis: Pelvic abscess, likely 2/2 ruptured diverticulitis, s/p percutaneous drain placement Post Procedure Diagnosis: Same. Route Salesperson: Dr. Rain Hung Procedure: Fluoroscopic guided abscessogram [...] INJECTION FOR Observed: 10/17/2017 Status: F Source: [facility] 10:02 AM [facility] [id number] REPOSITORY Performed at [facility] APPROVED BY: RAIN HUNG MD PROCEDURE: [...] weeks. PROGRESS Observed: 10/17/2017 Status: COMPLETED Source: [place] 9:57 AM CLINIC OTHER CAMPUS REPOSITORY HNO ID: [id number] Author: Mal Zavala Service: Hospital Medicine Author [...] Lymph 1.18 - 3.74 thou/cmm 1.39 Abs. Greeley 0.27 - 0.70 thou/cmm 0.69 Abs. Eosin [...] Addisons: -cont prednisone To [facility] [place] 4 wk of po abx. ID f/u in 4 wk. Cont to monitor cough, if fever or wbc check cxr. Consult: plastic, surgery, ID, heme onc, Mal Zavala MD October 17, 2017 4:36 PM SIGNATURE: Mal Zavala MD PATIENT NAME: Dia Mccullough DATE: October 17, 2017 TIME: 9:57 AM PAGER/CONTACT #: [phone] HEMOGRAM/DIFF Collected: 10/17/2017 Status: F Source: [facility] 3:36 AM [facility] REPOSITORY TYPE CODE [...] 1.39 LAB MONON(LOIN 0.27-0.70 thou/cmm C) Abs. Greeley 0.69 LAB EOSN(LOINC 0.00-0.31 thou/cmm ) Abs. Eosin 0.09 LAB BASON(LOIN 0.01-0.08 thou/cmm C) Abs. Baso 0.02 Performed By: #### CBCD1 #### [facility] [address] [place] [address] BASIC PANEL Collected: 10/17/2017 Status: F Source: [facility] 3:36 AM HEALTH SYSTEM REPOSITORY TYPE CODE [...] Gap 7 Performed By: #### P8 #### [place] [address] MDRD GFR Collected: 10/17/2017 Status: F Source: [facility] 3:36 AM [facility]ALTH SYSTEM REPOSITORY TYPE CODE TESTS RESULT OUT OF RANGE REFERENCE UNITS LAB GFRFN(LOINC >60mL/min/1.73m ) 2 eGFR 42.20 Result Comment: If the patient is , multiply the result by 1.210. Performed By: #### GFR #### [place] [address] PROGRESS Observed: 10/16/2017 Status: COMPLETED Source: [place] 9:57 PM CLINIC OTHER CAMPUS REPOSITORY O ID: [id number] Author: Patsy Kirby MD Service: Hospital Medicine [...] Jose Maria Kyrie 25 mg at 10/16/17 211 acetaminophen 650 mg tab(s) (TYLENOL) 650 mg [...] be performed due to insurance reasons at [facility], d/w patient, and she would prefer to still go to [facility] and get CT scan only even though [...] 2300 vte non-pharmacologic prophylaxis - none indicated ([place]) 10/08/17 2300 vte current anticoag therapy ([place]) Disposition: SNF,pending precert Plan of care discussed with: Patient and RN SIGNATURE: Patsy Kirby MD PATIENT NAME: Dia Mccullough DATE: October 16, 2017 TIME: 10:00 PM PAGER/CONTACT #: monica brito [phone] HEMOGRAM/DIFF Collected: 10/15/2017 Status: F Source: [facility] 10:36 PM HEALTH SYSTEM REPOSITORY TYPE CODE [...] 1.06 LAB MONON(LOIN 0.27-0.70 thou/cmm C) Abs. Greeley 0.65 LAB EOSN(LOINC 0.00-0.31 thou/cmm ) Abs. Eosin 0.03 LAB BASON(LOIN 0.01-0.08 thou/cmm C) Abs. Baso 0.03 Performed By: #### CBCD1 #### [facility] [address] [place] [id number] BASIC PANEL Collected: 10/15/2017 Status: F Source: [facility] 10:36 PM HEALTH SYSTEM REPOSITORY TYPE CODE [...] Gap 8 Performed By: #### P8 #### [place] [address] MDRD GFR Collected: 10/15/2017 Status: F Source: [facility] 10:36 PM HEALTH SYSTEM REPOSITORY TYPE CODE TESTS RESULT OUT OF RANGE REFERENCE UNITS LAB GFRFN(LOINC >60mL/min/1.73m ) 2 eGFR 37.58 Result Comment: If the patient is , multiply the result by 1.210. Performed By: #### GFR #### [place] [address] PROGRESS Observed: 10/15/2017 Status: COMPLETED Source: [place] 8:18 PM CLINIC OTHER CAMPUS REPOSITORY O ID: [id number] Author: Patsy Kirby MD Service: Hospital Medicine [...] tablet ORAL q 4 H PRN Kaycee ([employer] [place] 1 tablet at 10/15/17 0857 polyethylene [...] ORAL BID SHELBIE Clemens 5 mg at 10/15/17 1241 predniSONE [...] Leg hematoma, left, initial encounter 10/08/2017 - Leechburg disease Chronic - Venous insufficiency (chronic) (peripheral) [...] be performed due to insurance reasons at [facility], d/w patient, and she would prefer to still go to [facility] and get CT scan only even though [...] follow. ? 5. ?CKF S3 ? 6. ?Leechburg's Dz - prednisone ? ? 7. ?PMR/Inflammatory [...] (fl,oh) 10/08/17 2300 vte current anticoag therapy (fl,oh) Disposition: SNF,pending precert Plan of care discussed with: Patient and RN SIGNATURE: Patsy Kirby MD PATIENT NAME: Dia Mccullough DATE: October 15, 2017 TIME: 8:18 PM PAGER/CONTACT #: monica castano etx [phone] CASE MANAGEM Observed: 10/15/2017 Status: COMPLETED Source: [place] 9:49 AM CLINIC OTHER CAMPUS REPOSITORY HNO ID: [id number] Author: Keya (Rn) GAURANG Robles Service: Care Management Author Type: Registered Nurse Type: Care Mgt Progress Note Filed: 10/15/2017 9:52 AM Note Text: CARE MANAGEMENT PROGRESS NOTE SERVICE DATE: 10/15/2017 SERVICE TIME:9:49 A.M. Spoke with Allie, staff member at [facility]. They do not have pre-cert at this time so patient is unable to come to them this weekend. The earliest would be Tuesday, if they can obtain if at that time. LOS: 4 days SIGNATURE: Keya Robles RN PATIENT NAME: Dia Mccullough DATE: October 15, 2017 TIME: 9:49 AM PAGER/CONTACT #: [phone] NURSING PROG Observed: 10/14/2017 Status: COMPLETED Source: [place] 4:30 PM [facility] REPOSITORY HNO ID: [id number] Author: Maty (Rn) GAURANG Aceves Service: Nursing Author Type: Registered Nurse Type: Nursing Progress Note Filed: 10/14/2017 6:23 PM Note Text: 1822- [facility] has not called back stating if the patient has received precert. RN spoke with Joan customer care team coach and she states she has not heard anything back from [facility]. Patient updated. 1630-Per customer care team coach Debbie Hilton patients precert is no longer active and states that [facility] is working towards new precert for later today. RN and customer care team coach updated patient on discharge situation. CNDS Observed: 10/14/2017 Status: COMPLETED Source: [place] 2:43 PM [facility] REPOSITORY HNO ID: [id number] Author: Lory Garces Service: Hospital Medicine Author [...] GFR 30-59 ml/min Venous insufficiency (chronic) (peripheral) Collin disease Traumatic hematoma of left lower leg Leg hematoma, left, initial encounter Resolved Problems: * No resolved hospital problems. * OPERATIONS PERFORMED WHILE IN THE HOSPITAL: None IMPORTANT TEST/PROCEDURES: No procedures performed TEST RESULTS NOT AVAILABLE AT THIS TIME: No pending results Discharge Disposition Discharge Disposition: [facility] Facility - Greater than 30 Days Activity When You Leave the Hospital Resume pre-hospital activity Diet Instructions Resume your pre-hospital diet Follow Up Appointments Follow-Up Appointment When: In 4 weeks Misael Wei [phone] [place] [address] [facility] [address] PCP Requested Referral Follow-Up Appointment When: In 1 week Rika Wheeler [phone] [address] [facility] [address] PCP Requested Referral Additional Provider to Provider [...] be performed due to insurance reasons at [place], d/w patient, and she would prefer to still go to [place] and get CT scan only even though [...] follow. ? 5. ?CKF S3 ? 6. ?Leechburg's Dz - prednisone ? 7. ?PMR/Inflammatory Polyarthritis FOLLOW-UP APPOINTMENTS ALREADY SCHEDULED WITH A [facility] PROVIDER: No future appointments. DISCHARGE [...] CASE MANAGEM Observed: 10/14/2017 Status: COMPLETED Source: [place] 2:40 PM CLINIC OTHER CAMPUS REPOSITORY HNO ID: [id number] Author: Debbie Allen) GAURANG Hilton Service: Care Management Author Type: Registered Nurse Type: Care Mgt Progress Note Filed: 10/14/2017 2:41 PM Note Text: Spoke with Allie @ [facility]. They cancelled precert for this patient thinking she would not come until next week. Asked that they get new precert. PROGRESS Observed: 10/14/2017 Status: COMPLETED Source: [place] 12:49 PM CLINIC OTHER CAMPUS REPOSITORY HNO ID: [id number] Author: Lory Garces Service: Hospital Medicine Author [...] follow. ? 5. CKF S3 ? 6. Leechburg's Dz - prednisone ? 7. PMR/Inflammatory Polyarthritis Medication and Non-Pharmacologic VTE Prophylaxis/Anticoagulants Anticoagulant AND Antiplatelet Medications Start Dose Route Frequency Ordered Stop 10/11/17 1800 enoxaparin 70 mg injection (LOVENOX) 1 mg/kg/dose SUBCUTANEOUS EVERY 24 HOURS 10/11/17 1736 -- 10/08/172299 vte non-pharmacologic prophylaxis - none indicated (va,oh) 10/08/172299 vte current anticoag therapy (va,ks) VTE Prophylaxis: VTE prophylaxis appropriate SIGNATURE: Lory Garces MD PATIENT NAME: Dia Mccullough DATE: October 14, 2017 TIME: 12:49 PM PAGER: Red CONSULT PROG Observed: 10/14/2017 Status: COMPLETED Source: [place] 12:14 PM CLINIC OTHER CAMPUS REPOSITORY HNO ID: [id number] Author: Misael Wei Service: Infectious Disease Author [...] I recommend continued iv antibiotic therapy at [facility] at least initially. Pt declines, wants to [...] 14, 2017 TIME: 12:15 PM PAGER/CONTACT #: [phone] HEMOGRAM/DIFF Collected: 10/14/2017 Status: F Source: [facility] 5:10 AM HEALTH SYSTEM REPOSITORY TYPE CODE [...] 1.47 LAB MONON(LOIN 0.27-0.70 thou/cmm C) Abs. [place]ley 0.62 LAB EOSN(LOINC 0.00-0.31 thou/cmm ) Abs. Eosin 0.04 LAB BASON(LOIN 0.01-0.08 thou/cmm C) Abs. Baso 0.02 Result Comment: Smear scanned; tech agrees with automated differential Performed By: #### CBCD1 #### [place] [address] BASIC PANEL Collected: 10/14/2017 Status: F Source: [facility] 5:10 AM HEALTH SYSTEM REPOSITORY TYPE CODE [...] Gap 8 Performed By: #### P8 #### [place] [address] MDRD GFR Collected: 10/14/2017 Status: F Source: [facility] 5:10 AM HEALTH SYSTEM REPOSITORY TYPE CODE TESTS RESULT OUT OF RANGE REFERENCE UNITS LAB GFRFN(LOINC >60mL/min/1.73m ) 2 eGFR 56.86 Result Comment: If the patient is , multiply the result by 1.210. Performed By: #### GFR #### [place] [address] CONSULT PROG Observed: 10/13/2017 Status: COMPLETED Source: [place] 5:37 PM CLINIC OTHER CAMPUS REPOSITORY HNO ID: [id number] Author: Misael Wei Service: Infectious Disease Author [...] CASE MANAGEM Observed: 10/13/2017 Status: COMPLETED Source: [place] 2:44 PM [facility] REPOSITORY HNO ID: [id number] Author: Debbie (Rn) GAURANG Hilton Service: Care Management Author Type: Registered Nurse Type: Care Mgt Progress Note Filed: 10/13/2017 2:45 PM Note Text: Spoke with Allie Mcallister at [facility]. She will start precert for pt for transfer to her facillity. PROGRESS Observed: 10/13/2017 Status: COMPLETED Source: [place] 11:11 AM [facility] REPOSITORY HNO ID: [id number] Author: Lory Garces Service: Hospital Medicine Author [...] Stable H/H, follow. 5. CKF S3 6. Leechburg's Dz - prednisone 7. PMR/Inflammatory Polyarthritis Medication and Non-Pharmacologic VTE Prophylaxis/Anticoagulants Anticoagulant AND Antiplatelet Medications Start Dose Route Frequency Ordered Stop 10/11/17 1800 enoxaparin 70 mg injection (LOVENOX) 1 mg/kg/dose SUBCUTANEOUS EVERY 24 HOURS 10/11/17 1736 -- 10/08/17 2300 vte non-pharmacologic prophylaxis - none indicated (va,oh) 10/08/17 230 vte current anticoag therapy (va,ks) VTE Prophylaxis: VTE prophylaxis appropriate SIGNATURE: Lory Garces MD PATIENT NAME: Dia Mccullough DATE: October 13, 2017 TIME: 11:11 AM PAGER: Vincent CASE MANAGEM Observed: 10/13/2017 Status: COMPLETED Source: [place] 11:08 AM [facility] REPOSITORY HNO ID: [id number] Author: Debbie SargentRn) GAURANG Hilton Service: Care Management Author Type: Registered Nurse Type: Care Mgt Progress Note Filed: 10/13/2017 11:09 AM Note Text: Received message through Joan Masters Ekg Tech that [facility] will be able to accept pt at d/c Pt informaed. CASE MANAGEM Observed: 10/12/2017 Status: COMPLETED Source: [place] 3:45 PM [facility] OTHER [place] REPOSITORY HNO ID: [id number] Author: Summer (Specialist) Dinora Service: (none) Author Type: (none) Type: Care Mgt Progress Note Filed: 10/12/2017 3:45 PM Note Text: SNF referral sent to [facility] THERAPY NT Observed: 10/12/2017 Status: COMPLETED Source: [place] 3:33 PM [facility] REPOSITORY HNO ID: [id number] Author: Radha (Pt) Yola Service: Physical Therapy Author Type: Physical Therapist Type: Therapy (PT/OT/Speech/Resp) Filed: 10/12/2017 3:38 PM Note Text: Physical Therapy Evaluation SERVICE DATE: 10/12/2017 SERVICE TIME: 1455 to 1520 ROOM: [place] [address] Recommended Discharge Disposition: Subacute/SNF Justification For Post [...] gait and mobility-other Interventions Provided: Evaluation;Therapeutic Activity (35253) $ Evaluation-Low (37518) Billed Units: 1 unit Therapeutic Activity (61618) Treatment Minutes: 9 1 unit Skilled Intervention(s): [...] CODE: PT 6 Clicks Score: 17 (10/12/17 8154) Mobility: Walking and Moving Around Current Status [...] was brought here for surgical eval from [place], but declined operative intervention and requested to [...] more bleeding, and she went to the [facility] ED this morning. ?She was discharged back home after wound evaluation and no finding of circulatory compromise. ?Her son then brought her back to the ED with a concern over abdominal pain and insistent on hospitalization per [facility] ED notes. ?Eval included CT abdomen which showed a 5 cm abscess/phlegmon in the same area as the original perforation, and she was recommended to be transferred to have IR evaluation of percutaneous drainage.??? Reason for Physical Therapy Consult : weakness Relevant Past Medical History: Leechburg's, CKD, DVT/PE, fibromyalgia, HTN, R hip endo 2013 back sx, Active Hospital Problems Diagnosis - Intra-abdominal abscess (HCC) - Traumatic hematoma of left lower leg - Leg hematoma, left, initial encounter - Leechburg disease - Venous insufficiency (chronic) (peripheral) - CKD (chronic kidney disease) stage 3, GFR 30-59 ml/min - Pulmonary emboli (HCC) clinically resolved - DVT (deep venous thrombosis) (HCC) recurrent PAST MEDICAL HISTORY Diagnosis Date - Leechburg disease - Asthma - CKD (chronic kidney [...] HTN (hypertension) - Hypercholesterolemia - Inflammatory polyarthritis ([facility]) Dr. Hansen - Inflammatory polyarthropathy - Normocytic anemia - PE (pulmonary thromboembolism) ([facility]) 01/05/14 Bilat, extensive - Pulmonary [...] Lives With: Self/Alone Assistance Available: time study analyst (Dtr nearby) Entry To Home: No Stairs [...] 12, 2017 TIME: 3:33 PM PAGER/CONTACT #: [phone] CASE MANAGEM Observed: 10/12/2017 Status: COMPLETED Source: [place] 3:21 PM [facility] REPOSITORY HNO ID: [id number] Author: Joan SargentRn) GAURANG Masters Service: Care Management Author Type: Registered Nurse Type: Care Mgt Progress Note Filed: 10/12/2017 3:22 PM Note Text: CARE MANAGEMENT PROGRESS NOTE SERVICE DATE: 10/12/2017 SERVICE TIME: 1521 LOS: 1 day Needs Prior to Discharge: Accepting Facility;Bed Availability;Precertification;Discharge Transportation Spoke with Pt after PT/OT eval, pt agreeable to SNF at [place]. Would like [facility] as first choice. Will need precert. SIGNATURE: Joan Masters RN PATIENT NAME: Dia Mccullough DATE: October 12, 2017 TIME: 3:21 PM PAGER/CONTACT #: [phone] PROGRESS Observed: 10/12/2017 Status: COMPLETED Source: [place] 3:16 PM [facility] OTHER [place] REPOSITORY HNO ID: [id number] Author: Karin Dow Service: Hospital Medicine Author Type: Physician Type: Progress Notes Filed: 10/12/2017 6:00 PM Note Text: DEPARTMENT OF HOSPITAL MEDICINE PROGRESS NOTE SERVICE DATE: 10/12/2017 SERVICE TIME: 3:16 PM Hospital Medicine/Primary Attending: Karin Dow MD NIGHT AND WEEKEND COVERAGE: From 7am - 7pm, please call [phone] After 7pm, please call cross cover pager #[phone] Subjective INTERVAL HPI: Patient seen and examined. [...] 10/08/172299 vte non-pharmacologic prophylaxis - none indicated (va,oh) 10/08/172299 vte current anticoag therapy (va,ks) VTE Prophylaxis: VTE prophylaxis appropriate Disposition: SNF Plan of care discussed with: Patient SIGNATURE: Karin Dow MD PATIENT NAME: Dia Mccullough DATE: October 12, 2017 TIME: 3:16 PM PAGER/CONTACT #: [phone] etx [id number] THERAPY NT Observed: 10/12/2017 Status: COMPLETED Source: [place] 2:45 PM CLINIC OTHER CAMPUS REPOSITORY HNO ID: [id number] Author: Hoa (Otr/Marina) Brandi Service: Occupational Therapy Author Type: Occupational Therapist Type: Therapy (PT/OT/Speech/Resp) Filed: 10/12/2017 2:52 PM Note Text: Occupational Therapy Evaluation SERVICE DATE: 10/12/2017 SERVICE TIME: 1336 to 1406 ROOM: [place] [address] Recommended Discharge Disposition: Subacute/SNF Recommended Discharge Disposition Comments: Pt is limited with her mobility and ADL participation due to the L LE hematoma and abdominal pain from her abdominal abcess/drain placement. Pt has been to [facility] in the past and had a [...] evaluation was minimal/moderate, comorbidities affecting occupational performance: Leechburg's, CKD, DVT/PE, fibromyalgia, HTN, R hip endo [...] on feet Interventions Provided: Evaluation;Self Fdc Management (05301) $ Evaluation-Moderate (65226) Billed Units: 1 unit Self Fdc Management (63497) Treatment Minutes: 14 1 unit Skilled Intervention(s): [...] (10/12/171335) Self Care Current Status (G8987): CK (10/12/17 133) Self Care Goal Status (G8988): CJ (10/12/171335) [...] was brought here for surgical eval from [place], but declined operative intervention and requested to [...] more bleeding, and she went to the [facility] ED this morning. She was discharged back home after wound evaluation and no finding of circulatory compromise. Her son then brought her back to the ED with a concern over abdominal pain and insistent on hospitalization per [facility] ED notes. Eval included CT abdomen which [...] - Leg hematoma, left, initial encounter - Leechburg disease - Venous insufficiency (chronic) (peripheral) - CKD (chronic kidney disease) stage 3, GFR 30-59 ml/min - Pulmonary emboli (HCC) clinically resolved - DVT (deep venous thrombosis) (HCC) recurrent PAST MEDICAL HISTORY Diagnosis Date - Leechburg disease - Asthma - CKD (chronic kidney [...] HTN (hypertension) - Hypercholesterolemia - Inflammatory polyarthritis ([facility]) Dr. Hansen - Inflammatory polyarthropathy - Normocytic anemia - PE (pulmonary thromboembolism) ([facility]) 01/05/14 Bilat, extensive - Pulmonary [...] Post acute placement Relevant Past Medical History: Leechburg's, CKD, DVT/PE, fibromyalgia, HTN, R hip endo 2013 back sx, Patient Report: Pt in room cooperative and asking to get out of bed. Pain: 8/10 L LE after movement Home Environment Patient Lives With: Self/Alone Assistance Available: time study analyst (Dtr nearby) Entry To Home: No Stairs [...] October 12, 2017 TIME: 2:45 PM PAGER: [phone] CONSULT PROG Observed: 10/12/2017 Status: COMPLETED Source: [place] 1:46 PM CLINIC OTHER CAMPUS REPOSITORY HNO ID: [id number] Author: Misael Wei Service: Infectious Disease Author [...] 12, 2017 TIME: 1:46 PM PAGER/CONTACT #: [phone] CONSULT Observed: 10/12/2017 Status: COMPLETED Source: [place] 11:39 AM CLINIC OTHER CAMPUS REPOSITORY HNO ID: [id number] Author: Lacy Valdez Service: Plastic Surgery Author [...] hematoma. PAST MEDICAL HISTORY Diagnosis Date - Leechburg disease - Asthma - CKD (chronic kidney [...] Take 1 tablet by mouth once daily. 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 She understands this will likely take months to heal and she does run the risk of developing an infection of this leg. -Discussed with Dr. Casey. 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 No [...] 0 I feel financially burdened by my ygh-zv-mlgmbc expenses for my prescription medication: Disagree mostly [...] Yes C POTENTIAL TRANSITION PLANS Home Home Fdc OT/PT Chart reviewed, spoke with RN. Spoke with pt at bedside who reports she is from a single story home alone, but has family support. Would like [facility] for wound care and would be agreeable to home PT/OT if needed. Await PT/OT eval (ordered) for further planning. SIGNATURE: Joan Masters RN PATIENT NAME: Dia Mccullough DATE: October 12, 2017 TIME: 9:56 AM PAGER/CONTACT #: [phone] CONSULT PROG Observed: 10/12/2017 Status: COMPLETED Source: [place] 9:18 AM [facility] REPOSITORY HNO ID: [id number] Author: Shauna Pulido Service: General Surgery Author [...] 10/11/17699 - 10/12/1765810/12/17699 - 10/13/17 0659 Shift 9634-6159 9361-5600 6833-9593 24 Hour Total 9630-3526 0394-5685 9946-9082 24 Hour Total I N T A K E PO 360 120 480 PO 360 120 480 IV 1100 1100 1000 1000 LR 1000 1000 1000 1000 Meropenem (Merrem) 100 100 Irrigants 5 5 Irrigant/Flush Amount In (Drain/Tube 10/11/17 Toby Sherwood Left Lower Quadrant Abdomen Drain #1) 5 5 Shift Total 5866 781 3346 1000 1000 O U T P U [...] clinically resolved - DVT (deep venous thrombosis) ([facility]) 01/08/2014 Overview Note: recurrent 77 [...] 12, 2017 9:21 AM [facility] #: Pager: [phone] CONSULT PROG Observed: 10/12/2017 Status: COMPLETED Source: [place] 8:00 AM CLINIC OTHER CAMPUS REPOSITORY HNO ID: [id number] Author: Antione Irizarry Service: Hematology/Oncology Author Type: [...] October 12, 2017 TIME: 8 AM PAGER: [phone] HEMOGRAM/DIFF Collected: 10/12/2017 Status: F Source: [facility] 6:35 AM HEALTH SYSTEM REPOSITORY TYPE CODE [...] 1.21 LAB MONON(LOIN 0.27-0.70 thou/cmm C) Abs. [place] 0.52 LAB EOSN(LOINC 0.00-0.31 thou/cmm ) Abs. Eosin 0.02 LAB BASON(LOIN 0.01-0.08 thou/cmm C) Abs. Baso 0.02 Performed By: #### CBCD1 #### [facility] [address] [place] [id number] IMAGE-GUIDED DRAINAGE Observed: 10/11/2017 Status: F Source: [facility] [id number] 4:34 PM HEALTH SYSTEM REPOSITORY Performed at [facility] APPROVED BY: Timothy Rush MD EXAM TITLE: [...] with guidewire exchange and Seldinger technique a 8-Burkinan Skater APDL drainage catheter was deployed and [...] IMAGING GUIDANCE Observed: 10/11/2017 Status: F Source: [facility] 4:34 PM HEALTH SYSTEM PERITONEAL REPOSITORY Performed at [facility] APPROVED BY: Timothy Rush MD EXAM TITLE: [...] with guidewire exchange and Seldinger technique a 8-Burkinan Skater APDL drainage catheter was deployed and locked in place. Aspiration specimens were sent to microbiology. The drainage catheter was secured to the skin and hooked to a Toby-Hserwood suction bulb. There were no apparent complications. [...] OP NOT Observed: 10/11/2017 Status: COMPLETED Source: [place] 4:27 PM CLINIC OTHER CAMPUS REPOSITORY O ID: [id number] Author: Timothy Rush Service: Radiology Author Type: Physician Type: Brief Op Note Filed: 10/11/2017 4:31 PM Note Text: INTERVENTIONAL RADIOLOGY POST PROCEDURE NOTE DATE: 10/11/17 NAME: Dia Mccullough LOG ID: [id number] Pre-Procedure Diagnosis: Pelvic abscess Route Salesperson: Surgeon(s) and Role: * Timothy Rush - Primary Procedure: CT guided placement of abscess drainage catheter Anesthesia: Moderate sedation Findings: ~ 25 cc pus. 8 Fr 35 cm Skater APDL drain placed. Estimated Blood Loss: 0 ml Specimen: To microbiology Complications: None Post-Op/Post-Procedure Diagnosis: Pelvic abscess Plan: CT scan of pelvis and abscessogram in one week. Observed: 10/11/2017 Status: F Source: [facility] [place] 4:10 PM HEALTH SYSTEM AND AER REPOSITORY Test performed at [facility] Moderate Mixed anaerobic lara. No further identification to follow. Plates will be held for 5 days. Many WBC Few Gram negative bacilli Few Gram positive cocci ORGANISM: Klebsiella pneumoniae (ID: 1) Few ORGANISM: Khadijah albicans (ID: 2) Moderate ORGANISM: Clostridium perfringens (ID: 3) Many Performed By: #### C_ANA #### [place] [address] HISTORY PHYSICAL Observed: 10/11/2017 Status: COMPLETED Source: [place] 3:55 PM [facility] REPOSITORY HNO ID: [id number] Author: Timothy Rush Service: Radiology Author Type: [...] CONSULT PROG Observed: 10/11/2017 Status: COMPLETED Source: [place] 3:22 PM [facility] REPOSITORY HNO ID: [id number] Author: Misael Wei Service: Infectious Disease Author [...] CONSULT PROG Observed: 10/11/2017 Status: COMPLETED Source: [place] 3:13 PM CLINIC OTHER CAMPUS REPOSITORY O ID: [id number] Author: Laly (Gaurang) GAURANG Justice Service: Wound/Ostomy Author Type: Registered Nurse Type: Consult Progress Note Filed: 10/11/2017 3:18 PM Note Text: WOUND CARE NURSE CONSULT NOTE SERVICE DATE: 10/11/2017 SERVICE TIME: 1120 REASON FOR VISIT: Wound TIME SPENT (minutes): 30 Documentation from Wound Expert can be found in scanned documents. Patient seen by Carol Neal [employer] and lacey RN. Left lower leg hematoma with area of congealed blood and distal fluid filled area. Xeroform, dry gauze dressing, and DARCY wrap daily. Plastic Surgery consulted for hematoma evacuation. Wound care to follow. SIGNATURE: Laly Justice RN PATIENT NAME: Dia Mccullough DATE: October 11, 2017 TIME: 3:13 PM CONTACT#: [id number] ACTIVATED PTT Collected: 10/11/2017 Status: F Source: [facility] 12:35 PM HEALTH SYSTEM REPOSITORY TYPE CODE TESTS RESULT OUT OF REFERENCE UNITS RANGE LAB APTT(LOINC 22.0-34.0 sec ) High Activated PTT 73.5 Performed By: #### APTT #### [place] [address] ALLIED HEALTH Observed: 10/11/2017 Status: COMPLETED Source: [place] 12:05 PM CLINIC OTHER [place] REPOSITORY HNO ID: [id number] Author: Chaplain Daley (Chaplain) Service: Spiritual Care Author Type: Healthcare Specialist Type: Allied Health Filed: 10/11/2017 12:06 PM Note Text: Spiritual Care Record ? Anointing/[place] PATIENT NAME: Dia Mccullough DATE: October 11, 2017 NOTE: Patient was anointed by Fr. ireland from [facility] on (date): 10/11/17. Signature: Chaplain Thuy Question? Please contact the Spiritual Care Department for assistance. This is an electronically created document. IF PRINTED, PLEASE DO NOT REMOVE FROM THE CHART OR MODIFY PRINTED COPY. ALLIED HEALTH Observed: 10/11/2017 Status: COMPLETED Source: [place] 11:47 AM CLINIC OTHER CAMPUS REPOSITORY HNO ID: [id number] Author: Chaplain Daley (Chaplain) Service: Spiritual Care Author Type: Healthcare Specialist Type: Allied Health Filed: 10/11/2017 12:05 PM Note Text: SPIRITUALCARE Spiritual Care Visit- Brief Note Name: Dia Mccullough Date: October 11, 2017 Notes: Per PT has multiple health issues and was scheduled for a test. She looked to be calm, took a prayer and was thankful for the [place] support. Healthcare Specialist Signature: Chaplain Thuy To contact the Spiritual Care Department: Please call [phone] or Page the On-Call Healthcare Specialist at pager [phone] Thank you for the opportunity to be of service. This is an electronically created document. IF PRINTED, PLEASE DO NOT REMOVE FROM THE CHART OR MODIFY PRINTED COPY. PROGRESS Observed: 10/11/2017 Status: COMPLETED Source: [place] 9:22 AM CLINIC OTHER CAMPUS REPOSITORY HNO ID: [id number] Author: Jose Maria Mittal Service: Hospital Medicine Author Type: Physician Type: Progress Notes Filed: 10/11/2017 9:44 AM Note Text: DEPARTMENT OF HOSPITAL MEDICINE PROGRESS NOTE SERVICE DATE: 10/11/2017 SERVICE TIME: 9:22 AM Hospital Medicine/Primary Attending: Jose Maria Mittal MD NIGHT AND WEEKEND COVERAGE: After 7pm please page [phone] CHIEF COMPLAINT: left leg hematoma. Intraabdominal abscess. [...] ml/min (11/28/2014) Venous insufficiency (chronic) (peripheral) () Leechburg disease () Traumatic hematoma of left lower [...] 11, 2017 TIME: 9:22 AM PAGER/CONTACT #: [phone] INITAL EVALUATION (1) Observed: 10/11/2017 Status: F Source: [place] - [place] 9:03 AM [facility] [place] [address] [place] [address]. [address] [place] [address] Fax REHABILITATION SERVICES INITIAL EVALUATION MR#: [id number] Acct: [id number] Name: DIA MCCULLOUGH Rep #: [id number] : 1940 77 From: Al Cornell DPT, OCS, CSCS Referring Dr.: Alejo Ortega MD Status: REG R Insurance: [facility] SELF PAY INSURANCE Patient's Visit Information [...] Perforated bowel August 24, ER sent to [place]. Needed surgery and refused. Gave her three [...] is abnormal for her. 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 - Objective Pt walks slowly with wh walker 150 feet x [address] [facility] room, tired but not SOB today. 12 [...] 90% better adn redy to wrokout at I. Goal Time Frame: 4-6 Weeks Goal [...] to be FAXED BACK to us at [phone] for Medicare purposes. Please let me know if there are questions or concerns regarding this plan of care. Physician Signature: Date: <Electronically signed by lA Cornell DPT, OCS, CSCS> 10/11/17 0903 CC: Jared Romero MD; Alejo Ortega MD EBG Signed For Medicare only, by signing this I certify the plan of care. Physicians Signature Date CONSULT PROG Observed: 10/11/2017 Status: COMPLETED Source: [place] 8:30 AM CLINIC OTHER CAMPUS REPOSITORY HNO ID: [id number] Author: Antione Irizarry Service: Hematology/Oncology Author Type: [...] October 11, 2017 TIME: 8 AM PAGER: [phone] CONSULT PROG Observed: 10/11/2017 Status: COMPLETED Source: [place] 6:35 AM CLINIC OTHER CAMPUS REPOSITORY HNO ID: [id number] Author: Shauna Pulido Service: General Surgery Author [...] 0659 10/11/17 07 - 10/12/17 0659 Shift 9757-9946 9151-2771 5596-2620 24 Hour Total 1535-5148 7421-4339 6378-1219 24 Hour Total I N T A [...] Leg hematoma, left, initial encounter 10/08/2017 - Leechburg disease Chronic - Venous insufficiency (chronic) (peripheral) - CKD (chronic kidney disease) stage 3, GFR 30-59 ml/min 11/28/2014 - Pulmonary emboli (HCC) 01/30/2014 Overview Note: clinically resolved - DVT (deep venous thrombosis) ([facility]) 01/08/2014 Overview Note: recurrent 77 [...] 11, 2017 6:41 AM [facility] #: Pager: [phone] HEMOGRAM Collected: 10/11/2017 Status: F Source: [facility] 4:31 AM HEALTH SYSTEM REPOSITORY TYPE CODE [...] 0.05 Absolute Performed By: #### CBC1 #### [facility] [address] [place] [address] ACTIVATED PTT Collected: 10/11/2017 Status: F Source: [facility] 4: AM HEALTH SYSTEM REPOSITORY TYPE CODE TESTS RESULT OUT OF REFERENCE UNITS RANGE LAB APTT(LOINC 22.0-34.0 sec ) Activated PTT 23.4 Performed By: #### APTT #### [facility] [address] [address] PROTIME Collected: 10/11/2017 Status: F Source: [facility] 4EL [facility] REPOSITORY TYPE CODE TESTS RESULT OUT OF REFERENCE UNITS RANGE LAB PTI(LOINC) 9.3-11.9 sec Prothrombin Time 10.0 LAB INR(LOINC) INR 0.93 Result Comment: Standard Therapy 2.0-3.0 High Dose 2.5-3.5 Performed By: #### PT #### [facility] [address] [place] [address] HEMOGRAM/DIFF Collected: 10/11/2017 Status: F Source: [facility] [address] SYSTEM REPOSITORY TYPE CODE TESTS RESULT [...] 1.13 LAB MONON(LOIN 0.27-0.70 thou/cmm C) Abs. Greeley 0.46 LAB EOSN(LOINC 0.00-0.31 thou/cmm ) Abs. Eosin 0.01 LAB BASON(LOIN 0.01-0.08 thou/cmm C) Abs. Baso 0.01 Performed By: #### CBCD1 #### [place] [address] BASIC PANEL Collected: 10/11/2017 Status: F Source: [facility] 4:31 AM HEALTH SYSTEM REPOSITORY TYPE CODE [...] Gap 8 Performed By: #### P8 #### [facility] [address] [address] MDRD GFR Collected: 10/11/2017 Status: F Source: [facility] 4:31 AM HEALTH SYSTEM REPOSITORY TYPE CODE TESTS RESULT OUT OF RANGE REFERENCE UNITS LAB GFRFN(LOINC >60mL/min/1.73m ) 2 eGFR 57.56 Result Comment: If the patient is , multiply the result by 1.210. Performed By: #### GFR #### [facility] [address] [address] PROGRESS Observed: 10/11/2017 Status: COMPLETED Source: [place] 3:55 AM [facility] REPOSITORY HNO ID: [id number] Author: Kaycee Zamora) [place] Service: Hospital Medicine Author Type: Nurse Practitioner Type: Progress Notes Filed: 10/11/2017 4:00 AM Note Text: [facility] NIGHT TEAM Called by general surgery resident regarding possible per drain in AM after ct complete. She discussed discontinuing lovenox and adding heparin gtt instead overnight. After procedure patient can be placed back on therapeutic lovenox. Discussed change with RN. Kaycee Figueroa [facility] 3921 NURSING PROG Observed: 10/10/2017 Status: COMPLETED Source: [place] 8:35 PM [facility] REPOSITORY HNO ID: [id number] Author: Teetee SargentRn) GAURANG Mendez Service: (none) Author Type: Registered [...] upset. PROGRESS Observed: 10/10/2017 Status: COMPLETED Source: [place] 2:48 PM [facility] REPOSITORY HNO ID: [id number] Author: Zhane Mcgovern III Service: Infectious Disease [...] October 10, 2017 TIME: 2:48 PM PAGER: [phone] PROGRESS Observed: 10/10/2017 Status: COMPLETED Source: [place] 11:27 AM CLINIC OTHER CAMPUS REPOSITORY HNO ID: [id number] Author: Jose Maria Mittal Service: Hospital Medicine Author Type: Physician Type: Progress Notes Filed: 10/10/2017 11:50 AM Note Text: DEPARTMENT OF HOSPITAL MEDICINE PROGRESS NOTE SERVICE DATE: 10/10/2017 SERVICE TIME: 11:27 AM Hospital Medicine/Primary Attending: Jose Maria Mittal MD NIGHT AND WEEKEND COVERAGE: After 7pm please page [phone] CHIEF COMPLAINT: left leg hematoma. SUBJECTIVE: No [...] ml/min (11/28/2014) Venous insufficiency (chronic) (peripheral) () Leechburg disease () Traumatic hematoma of left lower [...] 2017 TIME: 11:27 AM PAGER/CONTACT #: [phone] TYPE AND SCREEN Collected: 10/10/2017 Status: F Source: [facility] 10:20 AM HEALTH SYSTEM REPOSITORY TYPE CODE TESTS RESULT OUT OF REFERENCE UNITS RANGE LAB ABO(LOINC) A ABO Group LAB FIELD OPERATIONS MANAGER(LOINC ) RH Type Positive LAB ABSCR(LOIN C) Antibody NEGATIVE Screen LAB BBCMT(LOIN C) Comment See Below Result Comment: Screen &/or Xmatch expires in 3 days at 12 midnight. Redraw patient at that time. Performed By: #### T&S #### [place] [address] RBC PRODUCTS Collected: 10/10/2017 Status: F Source: [facility] 10:20 AM HEALTH SYSTEM REPOSITORY TYPE CODE TESTS RESULT OUT OF REFERENCE UNITS RANGE LAB UNIT1(LOINC ) Xmatch Unit 1 see below Result Comment: Compatible Performed By: #### RBCPS #### [place] [address] HEMOGRAM/DIFF Collected: 10/10/2017 Status: F Source: [facility] 8:30 AM HEALTH SYSTEM REPOSITORY TYPE CODE [...] 1.53 LAB MONON(LOIN 0.27-0.70 thou/cmm C) Abs. [place]ley 0.31 LAB EOSN(LOINC 0.00-0.31 thou/cmm ) Abs. Eosin 0.03 LAB BASON(LOIN 0.01-0.08 thou/cmm C) Abs. Baso 0.01 Performed By: #### CBCD1 #### [place] [address] CONSULT PROG Observed: 10/10/2017 Status: COMPLETED Source: [place] 7:05 AM CLINIC OTHER CAMPUS REPOSITORY HNO ID: [id number] Author: Randi Ledbetter Service: General Surgery Author [...] 10/09/17699 - 10/10/1765810/10/17699 - 10/11/17 0659 Shift 2648-8126 3447-1254 5852-8783 24 Hour Total 8313-0405 1311-7691 4326-0587 24 Hour Total I N T A K E PO 240 240 480 PO 240 240 480 IV 1000 1000 LR 1000 1000 Shift Total 1435 085 5019 O U T P U T Urine [...] Leg hematoma, left, initial encounter 10/08/2017 - Leechburg disease Chronic - Venous insufficiency (chronic) (peripheral) - CKD (chronic kidney disease) stage 3, GFR 30-59 ml/min 11/28/2014 - Pulmonary emboli (HCC) 01/30/2014 Overview Note: clinically resolved - DVT (deep venous thrombosis) ([facility]) 01/08/2014 Overview Note: recurrent 77 [...] October 10, 2017 TIME: 7:05 AM Pager: [phone] COMPREHENSIVE PANEL Collected: 10/10/2017 Status: F Source: [facility] 3:57 AM HEALTH SYSTEM REPOSITORY TYPE CODE [...] Gap 9 Performed By: #### P14 #### [facility] [address] [place] [address] MDRD GFR Collected: 10/10/2017 Status: F Source: [facility] 3:57 AM HEALTH SYSTEM REPOSITORY TYPE CODE TESTS RESULT OUT OF RANGE REFERENCE UNITS LAB GFRFN(LOINC >60mL/min/1.73m ) 2 eGFR 30.50 Result Comment: If the patient is , multiply the result by 1.210. Performed By: #### GFR #### [place] [address] CONSULT Observed: 10/09/2017 Status: COMPLETED Source: [place] 4:02 PM CLINIC OTHER CAMPUS REPOSITORY HNO ID: [id number] Author: Zhane Mcgovern III Service: Infectious Disease Author Type: Physician Type: Consults Filed: 10/09/2017 8:19 PM Note Text: CONSULT: INFECTIOUS DISEASE SERVICE SERVICE DATE: 10/09/2017 SERVICE TIME: 4:02PM REASON FOR CONSULT: Abdominal abscess REQUESTING PHYSICIAN: Dr. Damon PRIMARY CARE PHYSICIAN: Rika Wheeler MD Subjective . 77 year old female who was in [facility] in August for perforated bowel Had refused surgery and actually went home on hospice and on oral antibiotics. Has been receiving blood thinner. Recently had hematoma of the left leg. Per HANDP, she was brought back to [facility] for abdominal pain. There, it was [...] flagyl. PAST MEDICAL HISTORY Diagnosis Date - Leechburg disease - Asthma - CKD (chronic kidney [...] HTN (hypertension) - Hypercholesterolemia - Inflammatory polyarthritis ([facility]) Dr. Hansen - Inflammatory polyarthropathy - Normocytic anemia - PE (pulmonary thromboembolism) ([facility]) 01/05/14 Bilat, extensive - Pulmonary [...] Take 1 tablet by mouth once daily. 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 3:30 PM HEALTH SYSTEM REPOSITORY TYPE CODE TESTS RESULT OUT OF REFERENCE UNITS RANGE LAB RETCT(LOIN 1.0-2.1 % C) Reticulocyte High Ct 3.8 LAB RETAS(LOIN 0.038-0.095 mil/cmm C) Absolute Reticulocyte 0.081 LAB IRF(LOINC) 3.0-15.9 % Immature Retic High Fractions 32.5 LAB RETHE(LOIN 27.9-38.4 pg C) Retic Hemoglobin 35.6 Equivalent Performed By: #### RETC1 #### [place] [address] IRON % SATURATION Collected: 10/09/2017 Status: F Source: [facility] 3:30 PM HEALTH SYSTEM REPOSITORY TYPE CODE TESTS RESULT OUT OF REFERENCE UNITS RANGE LAB IRON(LOINC 50-170 ug/dL ) Low Iron Serum 14 LAB IBC(LOINC) 250-450 ug/dL Low Iron Binding Cap. 182 LAB IRON%(LOIN 20-55 % C) Low Iron % Saturation 8 Performed By: #### IRONS #### [place] [address] FERRITIN Collected: 10/09/2017 Status: F Source: [facility] 3:30 PM HEALTH SYSTEM REPOSITORY TYPE CODE TESTS RESULT OUT OF REFERENCE UNITS RANGE LAB FERR(LOINC) 8.00-252.00 ng/mL Ferritin 176.00 Performed By: #### FERR #### [place] [address] VITAMIN B12 Collected: 10/09/2017 Status: F Source: [facility] 3:30 PM HEALTH SYSTEM REPOSITORY TYPE CODE TESTS RESULT OUT OF REFERENCE UNITS RANGE LAB B12(LOINC) 193-986 pg/mL Vitamin B12 682 Performed By: #### B12 #### [facility] [address] [place], [place] [address] FOLATE Collected: 10/09/2017 Status: F Source: [facility] 3:30 HEALTH SYSTEM REPOSITORY TYPE CODE TESTS RESULT OUT OF REFERENCE UNITS RANGE LAB FOL(LOINC) 3.10-17.50 ng/mL High Folate 19.80 Performed By: #### FOL #### [facility] [address] [place] [address] ANTIPHOSPHOLIPID EVAL PANEL Collected: 10/09/2017 Status: F Source: [place] 3:30 PM [facility] SYSTEM REPOSITORY TYPE CODE TESTS RESULT OUT OF RANGE REFERENCE UNITS LAB B2GX(LOINC) B 2 -GPI SEE BELOW IgG & IgM Result Comment: Beta2 Glycoprot IgG <9 <20 SGU < 20 SGU Negative 20-80 SGU Low Positive > 80 SGU High Positive These results were obtained with the InoInterMed Discovery QUANTA Lite B2 GPI IgG CRISSY. B2 [...] correlated to an endpoint titer. Performing Laboratory: [address] [place] [address] LAB CARDX(LOINC) Cardiolipin Antibody SEE BELOW Result [...] were obtained with the Inova QUANTA Lite MXA IgM III CRISSY. Cardiolipin IgM values obtained with different manufacturers' assay methods may not be used interchangeably. The magnitude of the reported IgM levels cannot be correlated to an endpoint titer. IgA Cardiolipin Ab. <9 0-11 APL <12 APL Negative 12-40 APL Equivocal >40 APL Positive The following results were obtained with an CapigamiA Lite MAX IgA III CRISSY. Cardiolipin IgA values obtained with different manufacturers' assay methods may not be used interchangeably. The magnitude of the reported IgA levels cannot be correlated to an endpoint titer. Performing Laboratory: [place] [address] [place] [id number] LAB LUPUX(LOINC) Lupus Anticoag (DRVVT) SEE BELOW Result Comment: DRVVT Screen SEE BELOW 32.7-46.7 sec The heparin activity could not be neutralized completely. This can be seen with some types of low molecular weight heparin or fondaparinux therapy. Suggest repeating the lupus anticoagulant evaluation when the patient is no longer receiving heparin. Reviewed by Deirdre Malloy M.D.,Ph.D ([id number]) DRVVT Confirm Ratio SEE BELOW <1.21 The [...] is no longer receiving heparin. 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 Listened empathetically to pt's concerns. Reminded pt of 06/12 SC. Signature: CHAPLAIN Wilbert To contact the [facility] Care Department: Please call [phone] or Page the On-Call Healthcare Specialist at pager [phone] Thank you for the opportunity to be of service. This is an electronically created document. IF PRINTED, PLEASE DO NOT REMOVE FROM THE CHART OR MODIFY PRINTED COPY. CONSULT PROG Observed: 10/09/2017 Status: COMPLETED Source: [place] 2:39 PM [facility] REPOSITORY HNO ID: [id number] Author: Good Henning Service: Hematology/Oncology Author Type: [...] MD PROGRESS Observed: 10/09/2017 Status: COMPLETED Source: [place] 1:32 PM [facility] REPOSITORY HNO ID: [id number] Author: Jose Maria Mittal Service: Hospital Medicine Author Type: Physician Type: Progress Notes Filed: 10/09/2017 2:02 PM Note Text: DEPARTMENT OF HOSPITAL MEDICINE PROGRESS NOTE SERVICE DATE: 10/09/2017 SERVICE TIME: 1:33 PM Hospital Medicine/Primary Attending: Jose Maria Mittal MD NIGHT AND WEEKEND COVERAGE: After 7pm please page [phone] CHIEF COMPLAINT: bleeding in left leg SUBJECTIVE: 6 weeks ago she had bowel perforation and was brought in here. She decided not to have surgery and was sent home on 2 weeks of oral abx. 2 weeks later she has hematemesis while on coumadin. She was treated with vit k at [facility] and was sent to hospice [facility]. She [...] or IVC filter. Will get opinion of fleet technician- has seen Dr Irizarry in the past. Check ferritin, retic, vitamin b12 and folate. This was discussed with patient and later with son on the phone She is DNRCCA and no mechanical ventilation for respiratory distress either. VTE Prophylaxis: Patient is already anti-coagulated. Disposition: Home with [facility] Plan of care discussed with: Patient, Family/Other: son and RN SIGNATURE: Jose Maria Mittal MD PATIENT NAME: Dia Mccullough DATE: October 09, 2017 TIME: 1:33 PM PAGER/CONTACT #: [phone] CONSULT Observed: 10/09/2017 Status: COMPLETED Source: [place] 8:57 AM CLINIC OTHER CAMPUS REPOSITORY HNO ID: [id number] Author: Javier Wiley Service: General Surgery Author Type: Physician Type: Consults Filed: 10/17/2017 9:24 PM Note Text: CONSULT: General Surgery SERVICE SERVICE DATE: 10/09/2017 SERVICE TIME: 9:42 AM REASON FOR CONSULT: Intraabdominal abscess REQUESTING PHYSICIAN: Dr. Damon PRIMARY CARE PHYSICIAN: Rika Wheeler MD Subjective Ms. Mccullough is a 77 year old female recently admitted 08/24/17 from [facility] for diverticular abscess/perforation and septic shock. After multiple discussion (with patient/family) regarding recommendations for surgery, patient was discharged to hospice at patient's request on po antibiotics. 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 Readmitted yesterday for CT [...] excluded. PAST MEDICAL HISTORY Diagnosis Date - Leechburg disease - Asthma - CKD (chronic kidney [...] HTN (hypertension) - Hypercholesterolemia - Inflammatory polyarthritis ([facility]) Dr. Hansen - Inflammatory polyarthropathy - Normocytic anemia - PE (pulmonary thromboembolism) ([facility]) 01/05/14 Bilat, extensive - Pulmonary [...] Take 1 tablet by mouth once daily. 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) Disp: Rfl: 10/07/2017 at Unknown time Current [...] abscess/phlegmon ill defined on current imaging -d/w medication assistant radiologist, developing abscess is located in a [...] questions or concerns Mon-Fri 6a-5p please page [phone]. After 5pm and on Weekends and Holidays, please page [phone] if in ICU or [phone] if on RNF. SIGNATURE: Lina Damico MD PATIENT NAME: Dia Mccullough DATE: October 09, 2017 TIME: 8:59 AM PAGER: [phone] Attending Note I evaluated the patient and [...] % SATURATION Collected: 10/09/2017 Status: F Source: [place] 8:25 AM HEALTH SYSTEM REPOSITORY TYPE CODE TESTS RESULT OUT OF REFERENCE UNITS RANGE LAB IRON(LOINC 50-170 ug/dL ) Low Iron Serum 29 LAB IBC(LOINC) 250-450 ug/dL Low Iron Binding Cap. 186 LAB IRON%(LOIN 20-55 % C) Low Iron % Saturation 16 Performed By: #### IRONS #### [place] [id number] PROGRESS Observed: 10/09/2017 Status: COMPLETED Source: [place] 6:44 AM [facility] OTHER CAMPUS REPOSITORY HNO ID: [id number] Author: Gold Clemens Service: Hospital Medicine Author Type: Physician Type: Progress Notes Filed: 10/09/2017 6:45 AM Note Text: Pulse > 150, tele showed SVT, EKG confirmed. Metoprolol PO given, will monitor response. No IV access at this time. HEMOGRAM/DIFF Collected: 10/09/2017 Status: F Source: [facility] [facility] 6:30 AM HEALTH SYSTEM REPOSITORY TYPE CODE [...] 0.98 LAB MONON(LOIN 0.27-0.70 thou/cmm C) Abs. [place] 0.44 LAB EOSN(LOINC 0.00-0.31 thou/cmm ) Abs. Eosin 0.03 LAB BASON(LOIN 0.01-0.08 thou/cmm C) Abs. Baso 0.03 Result Comment: Smear scanned; tech agrees with automated differential Performed By: #### CBCD1 #### [place] [id number] BASIC PANEL Collected: 10/09/2017 Status: F Source: [facility] 6:30 AM HEALTH SYSTEM REPOSITORY TYPE CODE [...] Gap 13 Performed By: #### P8 #### [place] [address] MAGNESIUM BLOOD Collected: 10/09/2017 Status: F Source: [facility] 6:30 AM HEALTH SYSTEM REPOSITORY TYPE CODE TESTS RESULT OUT OF REFERENCE UNITS RANGE LAB MAG(LOINC) 1.6-2.6 mg/dL Low Magnesium Blood 1.4 Performed By: #### MAG #### [place] [address] PHOSPHORUS BLOOD Collected: 10/09/2017 Status: F Source: [facility] 6:30 AM HEALTH SYSTEM REPOSITORY TYPE CODE TESTS RESULT OUT OF REFERENCE UNITS RANGE LAB PHOS(LOINC 2.5-4.9 mg/dL ) Phosphorus Blood 3.6 Performed By: #### PHOS #### [place] [address] TROPONIN I Collected: 10/09/2017 Status: F Source: [facility] 6:30 AM HEALTH SYSTEM REPOSITORY TYPE CODE TESTS RESULT OUT OF REFERENCE UNITS RANGE LAB TROP(LOINC) 0.015-0.045 ng/ml Troponin I < 0.015 Performed By: #### TROP #### [place] [address] MDRD GFR Collected: 10/09/2017 Status: F Source: [facility] 6:30 AM HEALTH SYSTEM REPOSITORY TYPE CODE TESTS RESULT OUT OF RANGE REFERENCE UNITS LAB GFRFN(LOINC >60mL/min/1.73m ) 2 eGFR 32.32 Result Comment: If the patient is , multiply the result by 1.210. Performed By: #### GFR #### [place] [address] RETICULOCYTE COUNT Collected: 10/09/2017 Status: F Source: [facility] 6:30 AM HEALTH SYSTEM REPOSITORY TYPE CODE TESTS RESULT OUT OF REFERENCE UNITS RANGE LAB RETCT(LOIN 1.0-2.1 % C) Reticulocyte High Ct 3.9 LAB RETAS(LOIN 0.038-0.095 mil/cmm C) Absolute Reticulocyte 0.095 LAB IRF(LOINC) 3.0-15.9 % Immature Retic High Fractions 40.9 LAB RETHE(LOIN 27.9-38.4 pg C) Retic Hemoglobin 37.3 Equivalent Performed By: #### RETC1 #### [place] [address] FERRITIN Collected: 10/09/2017 Status: F Source: [facility] 6:30 AM HEALTH SYSTEM REPOSITORY TYPE CODE TESTS RESULT OUT OF REFERENCE UNITS RANGE LAB FERR(LOINC) 8.00-252.00 ng/mL Ferritin 181.50 Performed By: #### FERR #### [place] [address] VITAMIN B12 Collected: 10/09/2017 Status: F Source: [facility] 6:30 AM HEALTH SYSTEM REPOSITORY TYPE CODE TESTS RESULT OUT OF REFERENCE UNITS RANGE LAB B12(LOINC) 193-986 pg/mL Vitamin B12 619 Performed By: #### B12 #### [place] [address] FOLATE Collected: 10/09/2017 Status: F Source: [facility] 6:30 AM HEALTH SYSTEM REPOSITORY TYPE CODE TESTS RESULT OUT OF REFERENCE UNITS RANGE LAB FOL(LOINC) 3.10-17.50 ng/mL High Folate 20.80 Performed By: #### FOL #### [place] [address] EKG (AK,AV,EU,FV,HL,EDIE,MM,SP) Observed: Status: F Source: [place] 10/09/2017 6:17 AM CLINIC OTHER CAMPUS REPOSITORY NAME : DIA MCCULLOUGH PID : [id number] : 1940 Gender : Female Race : ORD : [id number] Procedure Date : Oct 09 2017 06:17 [...] ms QTC Calculation(Bezet) : 462 ms R Keiser : -51 degrees T Keiser : 64 degrees Test Reason : Arrhythmia Location : 51 : 5100 5108 Overread By : MD GRIFFITH G Editted By : MD GRIFFITH G Referred By : GOLD CLEMENS Acquired by : Renae Bartlett HISTORY PHYSICAL Observed: 10/08/2017 Status: COMPLETED Source: [place] 10:57 PM CLINIC OTHER CAMPUS REPOSITORY HNO ID: [id number] Author: Gold Clemens Service: Hospital Medicine Author Type: Physician Type: HANDP Filed: 10/08/2017 11:51 PM Note Text: DEPARTMENT OF HOSPITAL MEDICINE [facility] HISTORY AND PHYSICAL EXAMINATION SERVICE DATE: 10/08/2017 10:57 PM PRIMARY CARE PHYSICIAN: Rika Wheeler MD Subjective CHIEF COMPLAINT: Left leg hematoma HPI: This is a 77 year old female who has a complicated recent medical history starting August 24 when she was diagnosed with diverticular abscess/perforation and septic shock. She was brought here for surgical eval from [facility], but declined operative intervention and requested to [...] more bleeding, and she went to the [facility] ED this morning. She was discharged back home after wound evaluation and no finding of circulatory compromise. Her son then brought her back to the ED with a concern over abdominal pain and insistent on hospitalization per [facility] notes. Eval included CT abdomen which [...] dependent PAST MEDICAL HISTORY Diagnosis Date - Leechburg disease - Asthma - CKD (chronic kidney [...] HTN (hypertension) - Hypercholesterolemia - Inflammatory polyarthritis ([facility]) Dr. Hansen - Inflammatory polyarthropathy - Normocytic anemia - PE (pulmonary thromboembolism) ([facility]) 01/05/14 Bilat, extensive - Pulmonary [...] Yes Assessment AND Plan: chronic and stable Leechburg disease POA: Yes Assessment AND Plan: continue [...] staff and/or other providers, documentation, mail order biller, and [id number] time with patient. Of this time, greater than 50% was spent counseling and coordinating care. Counseling elements include educating the patient about diagnosis, further testing, and care related to Intra-abdominal abscess (HCC). Plan of care discussed with: Patient and RN VTE Prophylaxis: Patient is already anti-coagulated. Diagnostic tests reviewed for today's visit: Most recent labs and imaging results. Most recent EKG TELEMETRY: [facility] Imaging Services [address] [place] [address] Abdomen/Pelvis without Cont MR#: [id number] Acct: [id number] Name: DIA MCCULLOUGH Rep #: [id number] : 1940 F 77 From: Mckay Faulkner MD PCP: Jared Romero MD Status: [facility] Study: Abdomen/Pelvis without Cont Date of Exam: 10/08/17 Exam# [id number] Ordering Dr: Ronn Marrero MD STUDY: CT [...] AND WEEKEND COVERAGE: After 7pm please page [phone] EMERGENCY DEPARTMENT Observed: 10/08/2017 Status: F Source: [place] SUMMARY 4:06 PM [facility] Medical Records Department [address] [place] [id number] Emergency Department Summary 10/08/17 1419 MR#: [id number] Acct: [id number] Name: DIA MCCULLOUGH Rep #: [id number] : 1940 77 From: Ronn Marrero MD [...] PE is started on Lovenox, 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 like a small [...] abscess which reportedly cannot be done at [facility], the son and daughter agreed to be transferred to [facility] where she had been admitted for to be evaluated for this possibility Start the patient on Rocephin, I did speak with [facility] transfer service and they are discussing the issue with their physicians and will arrange for transfer Treatment Plan: [] Disposition: [] Admit pending hospitalist evaluation versus transfer to [facility] Impression: [] Left lower extremity hematoma with bleeding, intermittent abdominal pain, left lower quadrant abscess related to prior sigmoid diverticular rupture which patient does not wish to have any surgical or aggressive therapy for, reported history for recent bowel perforation, history of DVT PE on Lovenox This note was generated with walkbyation software. It may contain incorrect words, spelling, [...] problems, contact your Primary Care Provider. Call [facility] ([phone]) or report to the closest Emergency Room. Call 911 if necessary. 10/08/17 1606 <Electronically signed by Ronn Marrero MD> Date Ronn Marrero MD Cosigner Signature (If Indicated): Date CC: Jared Romero MD CBC W/DIFF, AUTOMATED Collected: 10/08/2017 Status: F Source: [place] 2:15 PM [facility] REPOSITORY TYPE CODE TESTS RESULT OUT [...] Normal 1+ Performed By: #### L100.0100 #### [facility] [address] [place], [place], [address] PROTHROMBIN TIME W/INR Collected: 10/08/2017 Status: F Source: [place] 2:15 PM [facility] TYPE CODE TESTS RESULT OUT OF RANGE REFERENCE UNITS LAB L300.4150 11.7-14.9 SECONDS Normal PROTIME 14.6 LAB L300.4200 Normal INR 1.1 Performed By: #### L300.3900 #### [facility] [address] [place], [place], [address] BASIC METABOLIC Collected: 10/08/2017 Status: F Source: [place] PROFILE (BMP) 2:15 PM [facility] [place] TYPE CODE TESTS RESULT OUT OF [...] Performed By: #### L500.2500, L500.3400, L501.2450 #### [facility] [address] [place], [place], [address] LIVER PROFILE Collected: 10/08/2017 Status: F Source: [place] 2:15 PM [facility] [place] TYPE CODE TESTS RESULT OUT OF [...] Performed By: #### L500.2500, L500.3400, L501.2450 #### [facility] [address] [place], [address] LIPASE Collected: 10/08/2017 Status: F Source: [place] 2:15 PM [facility] [place] TYPE CODE TESTS RESULT OUT OF RANGE REFERENCE UNITS LAB L501.2450 73-393 U/L Normal LIPASE 79 Performed By: #### L500.2500, L500.3400, L501.2450 #### [facility] [address] [facility] [place], [address] ABDOMEN/PELVIS WITHOUT Observed: 10/08/2017 Status: F Source: [place] CONT 1:56 PM [facility] [place] [facility] Imaging Services [address] [place] [address] Abdomen/Pelvis without Cont MR#: [id number] Acct: [id number] Name: DIA MCCULLOUGH Rep #: [id number] : 1940 F 77 From: Mckay Faulkner MD PCP: Jared Romero MD Status: REG ER Study: Abdomen/Pelvis without Cont Date of Exam: 10/08/17 Exam# [id number] Ordering Dr: Ronn Marrero MD STUDY: CT [...] support , CT/Abdomen/Pelvis without Cont CC: MD Torres Jwayyephan; Jared Romero MD Assistant Softball Coach: Signed EMERGENCY DEPARTMENT Observed: 10/08/2017 Status: F Source: [place] SUMMARY 4:25 AM [facility] [place] [facility] Medical Records Department [address] [place] [address] Emergency Department Summary 10/08/17 0418 MR#: [id number] Acct: [id number] Name: DIA MCCULLOUGH Rep #: [id number] : 1940 77 From: Cali Bucio MD [...] history of GI bleed, bowel perforation and Leechburg's disease. Physical Examination: Patient appears uncomfortable. Blood [...] decrease her dose and follow-up with her move coordinator. Treatment Plan: Decrease dose of Lovenox, follow-up with PCP for wound check in 2 days and follow-up with move coordinator. Disposition: Discharged to home in stable condition Impression: 1. Spontaneous hematoma left lower extremity with multiple bruises secondary to Lovenox induced coagulopathy secondary to renal insufficiency, acute 2. Chronic anemia 3. Acute renal insufficiency 4. Recent diagnosis of bilateral PE and DVT 5. History of Leechburg's disease This note was generated with Chas[employer] dictation software. It may contain incorrect words, [...] hematoma in 2 days. Follow-up with your move coordinator because of worsening kidney function, GFR What to do if you have Problems For any increased pain, shortness of breath, bleeding, nausea or vomiting, chest pain, or any unexpected problems, contact your Primary Care Provider. Call [facility] ([phone]) or report to the closest Emergency Room. Call 911 if necessary. 10/08/17 0425 <Electronically signed by Cali Bucio MD> Date Cali Bucio MD Cosigner Signature (If Indicated): Date CC: Jared Romero MD CBC W/DIFF, AUTOMATED Collected: 10/08/2017 Status: F Source: [place] 3:24 AM [facility] [place] TYPE CODE TESTS RESULT OUT OF [...] Normal 1+ Performed By: #### L100.0100 #### [facility] [address] [place], [address] BASIC METABOLIC Collected: 10/08/2017 Status: F Source: [place] PROFILE (BMP) 3:24 AM [facility] [place] TYPE CODE TESTS RESULT OUT OF [...] GAP 9 Performed By: #### L500.2500 #### [facility] [address] [facility] [address] [place], [place], [address] PROTHROMBIN TIME W/INR Collected: 10/08/2017 Status: F Source: [place] 3:24 AM [facility] [place] TYPE CODE TESTS RESULT OUT OF RANGE REFERENCE UNITS LAB L300.4150 11.7-14.9 SECONDS Normal PROTIME 14.2 LAB L300.4200 Normal INR 1.1 Performed By: #### L300.3900, L300.4310 #### [facility] [address] [place], [place], [address] PARTIAL THROMBOPLAST Collected: 10/08/2017 Status: F Source: [place] TIME 3:24 AM [facility] [place] TYPE CODE TESTS RESULT OUT OF REFERENCE UNITS RANGE LAB L300.4310 24.1-36.2 Seconds High PTT 37.8 Performed By: #### L300.3900, L300.4310 #### [facility] [address] [facility] 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 She was brought here for surgical eval from [place], but declined operative intervention and requested to [...] more bleeding, and she went to the [facility] ED this morning. She was discharged back home after wound evaluation and no finding of circulatory compromise. Her son then brought her back to the ED with a concern over abdominal pain and insistent on hospitalization per [facility] ED notes. Eval included CT abdomen which [...] dependent PAST MEDICAL HISTORY Diagnosis Date - Leechburg disease - Asthma - CKD (chronic kidney [...] MEDICATIONS Please see reconciled medication list in [employer] for details on home medications. ALLERGIES Allergen [...] Yes Assessment AND Plan: chronic and stable Leechburg disease POA: Yes Assessment AND Plan: continue [...] staff and/or other providers, documentation, mail order biller, and nerd-ap-elmt time with patient. Of this time, greater than 50% was spent counseling and coordinating care. Counseling elements include educating the patient about diagnosis, further testing, and care related to Intra-abdominal abscess (HCC). Plan of care discussed with: Patient and RN VTE Prophylaxis: Patient is already anti-coagulated. Diagnostic tests reviewed for today's visit: Most recent labs and imaging results. Most recent EKG TELEMETRY: [facility] Imaging Services [address] [place] [address] Abdomen/Pelvis without Cont MR#: [id number] Acct: [id number] Name: DIA MCCULLOUGH Rep #: [id number] : 1940 F 77 From: Mckay Faulkner MD PCP: Jared Romero MD Status: REG ER Study: Abdomen/Pelvis without Cont Date of Exam: 10/08/17 Exam# [id number] Ordering Dr: Ronn Marrero MD STUDY: CT [...] AND WEEKEND COVERAGE: After 7pm please page [phone] Gold Clemens MD 10/09/2017 6:45 AM Signed [...] year old female recently admitted 08/24/17 from [place] for diverticular abscess/perforation and septic shock. After multiple discussion (with patient/family) regarding recommendations for surgery, patient was discharged to hospice at patient's request on po antibiotics. 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 Readmitted yesterday for CT [...] excluded. PAST MEDICAL HISTORY Diagnosis Date - Collin [...] HTN (hypertension) - Hypercholesterolemia - Inflammatory polyarthritis ([facility]) Dr. Hansen - Inflammatory polyarthropathy - Normocytic anemia - PE (pulmonary thromboembolism) ([facility]) 01/05/14 Bilat, extensive - Pulmonary [...] Take 1 tablet by mouth once daily. 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) Disp: Rfl: 10/07/2017 at Unknown time Current [...] abscess/phlegmon ill defined on current imaging -d/w medication assistant radiologist, developing abscess is located in a [...] October 09, 2017 TIME: 8:59 AM PAGER: [phone] Jose Maria Mittal MD 10/09/2017 2:02 PM Addendum DEPARTMENT OF HOSPITAL MEDICINE PROGRESS NOTE SERVICE DATE: 10/09/2017 SERVICE TIME: 1:33 PM Hospital Medicine/Primary Attending: Jose Maria Mittal MD NIGHT AND WEEKEND COVERAGE: After 7pm please page [phone] CHIEF COMPLAINT: bleeding in left leg SUBJECTIVE: 6 weeks ago she had bowel perforation and was brought in here. She decided not to have surgery and was sent home on 2 weeks of oral abx. 2 weeks later she has hematemesis while on coumadin. She was treated with vit k [facility] and was sent to hospice [facility]. She [...] ml/min (11/28/2014) Venous insufficiency (chronic) (peripheral) () Leechburg disease () Traumatic hematoma of left lower [...] or IVC filter. Will get opinion of fleet technician- has seen Dr Irizarry in the past. Check ferritin, retic, vitamin b12 and folate. This was discussed with patient and later with son on the phone She is DNRCCA and no mechanical ventilation for respiratory distress either. VTE Prophylaxis: Patient is already anti-coagulated. 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 Listened empathetically to pt's concerns. Reminded pt of 06/12 [place]. Healthcare Specialist Signature: CHAPLAIN Wilbert To contact the Spiritual Care Department: Please call [phone] or Page the On-Call Healthcare Specialist at pager [phone] Thank you for the opportunity to be [...] 77 year old female who was in [facility] in August for perforated bowel Had refused surgery and actually went home on hospice and on oral antibiotics. Has been receiving blood thinner. Recently had hematoma of the left leg. Per [facility], she was brought back to [facility] for abdominal pain. There, it was [...] - Normocytic anemia - PE (pulmonary thromboembolism) ([facility]) 01/05/14 Bilat, extensive - Pulmonary [...] Take 1 tablet by mouth once daily. 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) Disp: Rfl: 10/07/2017 at Unknown time Current [...] October 09, 2017 TIME: 4:02 PM PAGER: [phone] Randi Koenig MD 10/10/2017 7:10 AM Attested [...] 0659 10/10/17 07 - 10/11/17 0659 Shift 3597-6952 0005-2044 0725-9719 24 Hour Total 7054-2271 0835-6019 3208-4968 24 Hour Total I N T A K E PO 240 240 480 PO 240 240 480 IV 1000 1000 LR 1000 1000 Shift Total 3917 386 0480 O U T P U T Urine [...] Leg hematoma, left, initial encounter 10/08/2017 - Leechburg disease Chronic - Venous insufficiency (chronic) (peripheral) - CKD (chronic kidney disease) stage 3, GFR 30-59 ml/min 11/28/2014 - Pulmonary emboli (HCC) 01/30/2014 Overview Note: clinically resolved - DVT (deep venous thrombosis) ([facility]) 01/08/2014 Overview Note: recurrent 77 [...] October 10, 2017 TIME: 7:05 AM Pager: [phone] Jose Maria Mittal MD 10/10/2017 11:50 AM Signed DEPARTMENT OF HOSPITAL MEDICINE PROGRESS NOTE SERVICE DATE: 10/10/2017 SERVICE TIME: 11:27 AM Hospital Medicine/Primary Attending: Jose Maria Mittal MD NIGHT AND WEEKEND COVERAGE: After 7pm please page [phone] CHIEF COMPLAINT: left leg hematoma. SUBJECTIVE: No [...] 10, 2017 TIME: 11:27 AM PAGER/CONTACT #: [phone] Zhane Mcgovern III, MD 10/10/2017 2:52 PM [...] October 10, 2017 TIME: 2:48 PM PAGER: [phone] Teetee Mendez RN, RN 10/10/2017 10:04 PM Addendum Monica paged to notify that the patient is requesting something for anxiety. Ativan 0.25 mg ordered once by AMMY Figueroa. AMMY Figueroa of [facility] notified that the patient received half of the dose of meropenem and then refused the other half related to GI upset. Previous Version Kaycee Figueroa APRN.AMMY 10/11/2017 4:00 AM Signed [facility] NIGHT TEAM Called by general surgery resident regarding possible per drain in AM after ct complete. She discussed discontinuing lovenox and adding heparin gtt instead overnight. After procedure patient can be placed back on therapeutic lovenox. Discussed change with RN. Kaycee Figueroa DIRECTOR DIGITAL SALES [phone] Shauna Pulido MD 10/11/2017 6:43 AM Attested [...] Therapy: Room Air IANDO: Date 10/10/17699 - 10/11/1765810/11/17699 - 10/12/17 0659 Shift 8908-3204 6482-8221 9494-6781 24 Hour Total 0046-6223 3792-9455 4124-2473 24 Hour Total I N T A [...] Leg hematoma, left, initial encounter 10/08/2017 - Leechburg disease Chronic - Venous insufficiency (chronic) (peripheral) - CKD (chronic kidney disease) stage 3, GFR 30-59 ml/min 11/28/2014 - Pulmonary emboli (HCC) 01/30/2014 Overview Note: clinically resolved - DVT (deep venous thrombosis) ([facility]) 01/08/2014 Overview Note: recurrent 77 [...] 11, 2017 6:41 AM [facility] #: Pager: [phone] Previous Version Antione Irizarry MD 10/11/2017 11:43 [...] APTT 23.4 INR 0.93 BMP: Recent Labs 10/11/1743010/10/177 10/09/17 0630 GLUC 90 97 116* NA [...] October 11, 2017 TIME: 8 AM PAGER: [phone] Jose Maria Mittal MD 10/11/2017 9:44 AM Addendum DEPARTMENT OF HOSPITAL MEDICINE PROGRESS NOTE SERVICE DATE: 10/11/2017 SERVICE TIME: 9:22 AM Hospital Medicine/Primary Attending: Jose Maria Mittal MD NIGHT AND WEEKEND COVERAGE: After 7pm please page [phone] CHIEF COMPLAINT: left leg hematoma. Intraabdominal abscess. [...] 11, 2017 TIME: 9:22 AM PAGER/CONTACT #: [phone] Previous Version Chaplain Daley Chaplain 10/11/2017 12:05 PM Signed SPIRITUALCARE Spiritual Care Visit- Brief Note Name: Dia Mccullough Date: October 11, 2017 Notes: Per PT has multiple health issues and was scheduled for a test. She looked to be calm, took a prayer and was thankful for the [place] support. Healthcare Specialist Signature: Chaplain Thuy To contact the Spiritual Care Department: Please call [phone] or Page the On-Call at pager [phone] Thank you for the opportunity to be of service. This is an electronically created document. IF PRINTED, PLEASE DO NOT REMOVE FROM THE CHART OR MODIFY PRINTED COPY. Chaplain Daley Chaplain 10/11/2017 12:06 PM Signed Spiritual Care Record ? Anointing/[place] PATIENT NAME: Dia Mccullough DATE: October 11, 2017 NOTE: Patient was anointed by shu from [facility] on (date): 10/11/17. Signature: Chaplain Thuy Question? [...] scanned documents. Patient seen by Carol Neal [employer]S HOUSE BROKER and lacey RN. Left lower leg hematoma with area of congealed blood and distal fluid filled area. Xeroform, dry gauze dressing, and DARCY wrap daily. Plastic Surgery consulted for hematoma evacuation. Wound care to follow. SIGNATURE: Laly Justice RN PATIENT NAME: Dia Mccullough DATE: October 11, 2017 TIME: 3:13 PM CONTACT#: [id number] Misael Wei MD 10/11/2017 3:38 PM Signed [...] 11, 2017 TIME: 3:22 PM PAGER/CONTACT #: [phone] Timothy Rush MD 10/11/2017 3:56 PM Signed [...] DATE: 10/11/17 NAME: Dia Mccullough LOG ID: [id number] Pre-Procedure Diagnosis: Pelvic abscess Route Salesperson: Surgeon(s) and Role: * Timothy Rush - [...] October 12, 2017 TIME: 8 AM PAGER: [phone] Shauna Pulido MD 10/12/2017 9:21 AM Attested [...] Therapy: Room Air IANDO: Date 10/11/17699 - 10/12/1759 10/12/17699 - 10/13/17 0659 Shift 5151-2648 1700-9233 6081-2745 24 Hour Total 2470-9668 7396-4972 3928-2839 24 Hour Total I N T A K E PO 360 120 480 PO 360 120 480 IV 1100 1100 1000 1000 LR 1000 1000 1000 1000 Meropenem (Merrem) 100 100 Irrigants 5 5 Irrigant/Flush Amount In (Drain/Tube 10/11/17 Toby Sherwood Left Lower Quadrant Abdomen Drain #1) 5 5 Shift Total 5033 404 9774 1000 1000 O U T P U [...] Leg hematoma, left, initial encounter 10/08/2017 - Leechburg disease Chronic - Venous insufficiency (chronic) (peripheral) - CKD (chronic kidney disease) stage 3, GFR 30-59 ml/min 11/28/2014 - Pulmonary emboli (HCC) 01/30/2014 Overview Note: clinically resolved - DVT (deep venous thrombosis) ([facility]) 01/08/2014 Overview Note: recurrent 77 [...] 12, 2017 9:21 AM [facility] #: Pager: [phone] Joan Masters RN, RN 10/12/2017 10:02 AM Signed CARE MANAGEMENT: ASSESSMENT AND DISCHARGE PLAN SERVICE DATE: 10/12/2017 SERVICE TIME: 955 PRIMARY CARE PHYSICIAN: Rika Wheeler MD ADMISSION STATUS: Inpatient Needs Prior to Discharge: Wound Care;Home Care Order;OT/PT Evaluation 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 No [...] 0 I feel financially burdened by my uxh-zk-xhxkhp expenses for my prescription medication: Disagree mostly [...] alone, but has family support. Would like [facility] for wound care and would be agreeable to home PT/OT if needed. Await PT/OT eval (ordered) for further planning. SIGNATURE: Joan Masters RN PATIENT NAME: Dia Mccullough DATE: October 12, 2017 TIME: 9:56 AM PAGER/CONTACT #: [phone] Lacy Valdez MD 10/12/2017 8:12 PM Cosign [...] hematoma. PAST MEDICAL HISTORY Diagnosis Date - Leechburg disease - Asthma - CKD (chronic kidney [...] Take 1 tablet by mouth once daily. 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 She understands this [...] 12, 2017 TIME: 1:46 PM PAGER/CONTACT #: [phone] ASHLEY Medina/Marina 10/12/2017 2:52 PM Signed Occupational Therapy Evaluation SERVICE DATE: 10/12/2017 SERVICE TIME: 1336 to 1406 ROOM: [place] [address] Recommended Discharge Disposition: Subacute/SNF Recommended Discharge Disposition Comments: Pt is limited with her mobility and ADL participation due to the L LE hematoma and abdominal pain from her abdominal abcess/drain placement. Pt has been to [facility] in the past and had a [...] evaluation was minimal/moderate, comorbidities affecting occupational performance: Leechburg's, CKD, DVT/PE, fibromyalgia, HTN, R hip endo [...] on feet Interventions Provided: Evaluation;Self Fdc Management (75108) $ Evaluation-Moderate (39241) Billed Units: 1 unit Self Fdc Management (08459) Treatment Minutes: 14 1 unit Skilled Intervention(s): [...] CODE: OT 6 Clicks Score: 14 (10/12/17 6326) Self Care Current Status (G8987): CK (10/12/17 1336) Self Care Goal Status (G8988): CJ (10/12/17 1336) Based on clinical assessment and the score [...] was brought here for surgical eval from [place], but declined operative intervention and requested to [...] more bleeding, and she went to the [facility] ED this morning. She was discharged back home after wound evaluation and no finding of circulatory compromise. Her son then brought her back to the ED with a concern over abdominal pain and insistent on hospitalization per [facility] ED notes. Eval included CT abdomen which [...] - Leg hematoma, left, initial encounter - Leechburg disease - Venous insufficiency (chronic) (peripheral) - CKD (chronic kidney disease) stage 3, GFR 30-59 ml/min - Pulmonary emboli (HCC) clinically resolved - DVT (deep venous thrombosis) (HCC) recurrent PAST MEDICAL HISTORY Diagnosis Date - Leechburg disease - Asthma - CKD (chronic kidney [...] HTN (hypertension) - Hypercholesterolemia - Inflammatory polyarthritis ([facility]) Dr. Hansen - Inflammatory polyarthropathy - Normocytic anemia - PE (pulmonary thromboembolism) ([facility]) 01/05/14 Bilat, extensive - Pulmonary [...] Post acute placement Relevant Past Medical History: Leechburg's, CKD, DVT/PE, fibromyalgia, HTN, R hip endo 2013 back sx, Patient Report: Pt in room cooperative and asking to get out of bed. Pain: 8/10 L LE after movement Home Environment Patient Lives With: Self/Alone Assistance Available: time study analyst (Dtr nearby) Entry To Home: No Stairs [...] October 12, 2017 TIME: 2:45 PM PAGER: [phone] Karin Dow MD 10/12/2017 6:00 PM Signed DEPARTMENT OF HOSPITAL MEDICINE PROGRESS NOTE SERVICE DATE: 10/12/2017 SERVICE TIME: 3:16 PM Hospital Medicine/Primary Attending: Karin Dow MD NIGHT AND WEEKEND COVERAGE: From 7am - 7pm, please call [phone] After 7pm, please call cross cover pager #[phone] Subjective INTERVAL HPI: Patient seen and examined. [...] BS normal EXTREMITIES: left leg- wrapped in dracy. Opened and examined yesterday- has large hematoma [...] (va,oh) 10/08/17 2300 vte current anticoag therapy (va,ks) VTE Prophylaxis: VTE prophylaxis appropriate Disposition: SNF Plan of care discussed with: Patient SIGNATURE: Karin Dow MD PATIENT NAME: Dia Mccullough DATE: October 12, 2017 TIME: 3:16 PM PAGER/CONTACT #: [phone] [phone] Joan Masters, RN, RN 10/12/2017 3:22 PM Signed CARE MANAGEMENT PROGRESS NOTE SERVICE DATE: 10/12/2017 SERVICE TIME: 152 LOS: 1 day Needs Prior to Discharge: Accepting Facility;Bed Availability;Precertification;Discharge Transportation Spoke with Pt after PT/OT eval, pt agreeable to SNF at [place]. Would like [facility] as first choice. Will need precert. SIGNATURE: Joan Masters RN PATIENT NAME: Dia Mccullough DATE: October 12, 2017 TIME: 3:21 PM PAGER/CONTACT #: [phone] Radha Aceves, PT 10/12/2017 3:38 PM Signed Physical Therapy Evaluation SERVICE DATE: 10/12/2017 SERVICE TIME: 1455 to 1520 ROOM: [place] [address] Recommended Discharge Disposition: Subacute/SNF Justification For Post [...] gait and mobility-other Interventions Provided: Evaluation;Therapeutic Activity (05662) $ Evaluation-Low (35482) Billed Units: 1 unit Therapeutic Activity (67091) Treatment Minutes: 9 1 unit Skilled Intervention(s): [...] was brought here for surgical eval from [place], but declined operative intervention and requested to [...] more bleeding, and she went to the [facility] ED this morning. ?She was discharged back home after wound evaluation and no finding of circulatory compromise. ?Her son then brought her back to the ED with a concern over abdominal pain and insistent on hospitalization per [place] notes. ?Eval included CT abdomen which showed a 5 cm abscess/phlegmon in the same area as the original perforation, and she was recommended to be transferred to have IR evaluation of percutaneous drainage.??? Reason for Physical Therapy Consult : weakness Relevant Past Medical History: Leechburg's, CKD, DVT/PE, fibromyalgia, HTN, R hip endo 2012 back sx, Active Hospital Problems Diagnosis - Intra-abdominal abscess (HCC) - Traumatic hematoma of left lower leg - Leg hematoma, left, initial encounter - Leechburg disease - Venous insufficiency (chronic) (peripheral) - CKD (chronic kidney disease) stage 3, GFR 30-59 ml/min - Pulmonary emboli (HCC) clinically resolved - DVT (deep venous thrombosis) ([facility]) recurrent PAST MEDICAL HISTORY Diagnosis [...] HTN (hypertension) - Hypercholesterolemia - Inflammatory polyarthritis ([facility]) Dr. Hansen - Inflammatory polyarthropathy - Normocytic anemia - PE (pulmonary thromboembolism) ([facility]) 01/05/14 Bilat, extensive - Pulmonary [...] DUPLEX BOTH LOWER EXTREMITIES 05/12/2016 Patient Report: 8/10 pain L lower extremity. Agreeable to PT. I know I cannot go back home like this Home Environment Patient Lives With: Self/Alone Assistance Available: time study analyst (Dtr nearby) Entry To Home: No Stairs [...] 12, 2017 TIME: 3:33 PM PAGER/CONTACT #: [phone] Summer Farias, Mule Rider 10/12/2017 3:45 PM Signed SNF referral sent to [facility] Debbie Hilton, RN, RN 10/13/2017 11:09 AM Signed Received message through Joan Masters Ekg Tech that [facility] will be able to accept pt [...] Stable H/H, follow. 5. CKF S3 6. Leechburg's Dz - prednisone 7. PMR/Inflammatory Polyarthritis Medication and Non-Pharmacologic VTE Prophylaxis/Anticoagulants Anticoagulant AND Antiplatelet Medications Start Dose Route Frequency Ordered Stop 10/11/17 1800 enoxaparin 70 mg injection (LOVENOX) 1 mg/kg/dose SUBCUTANEOUS EVERY 24 HOURS 10/11/17 1736 -- 10/08/17 2300 vte non-pharmacologic prophylaxis - none indicated (va,oh) 10/08/17 2300 vte current anticoag therapy (va,ks) VTE Prophylaxis: VTE prophylaxis appropriate SIGNATURE: Lory Garces MD PATIENT NAME: Dia Mccullough DATE: October 13, 2017 TIME: 11:11 AM PAGER: Vincent Hilton, RN, RN 10/13/2017 2:45 PM Signed Spoke with Allie Mcallister at [facility]. She will start precert for pt [...] I recommend continued iv antibiotic therapy at [facility] at least initially. Pt declines, wants to [...] 14, 2017 TIME: 12:15 PM PAGER/CONTACT #: [phone] Previous Version Lory Garces MD 10/14/2017 12:52 [...] 2300 vte non-pharmacologic prophylaxis - none indicated (va,ks) 10/08/17 2300 vte current anticoag therapy ([place], [place]) VTE Prophylaxis: VTE prophylaxis appropriate SIGNATURE: Lory Garces MD PATIENT NAME: Dia Mccullough DATE: October 14, 2017 TIME: 12:49 PM PAGER: Vincent Hilton, RN, RN 10/14/2017 2:41 PM Signed Spoke with Allie [facility]. They cancelled precert for this patient [...] GFR 30-59 ml/min Venous insufficiency (chronic) (peripheral) Collin disease Traumatic hematoma of left lower leg Leg hematoma, left, initial encounter Resolved Problems: * No resolved hospital problems. * OPERATIONS PERFORMED WHILE IN THE HOSPITAL: None IMPORTANT TEST/PROCEDURES: No procedures performed TEST RESULTS NOT AVAILABLE AT THIS TIME: No pending results Discharge Disposition Discharge Disposition: [facility] Facility - Greater than 30 Days Activity When You Leave the Hospital Resume pre-hospital activity Diet Instructions Resume your pre-hospital diet Follow Up Appointments Follow-Up Appointment When: In 4 weeks Misael Wei [phone] [place] [address] [facility] [address] PCP Requested Referral Follow-Up Appointment When: In 1 week Rika Wheeler [phone] [address] [facility] [address] PCP Requested Referral Additional Provider to Provider [...] be performed due to insurance reasons at [facility], d/w patient, and she would prefer to still go to [facility] and get CT scan only even though [...] follow. ? 5. ?CKF S3 ? 6. ?Leechburg's Dz - prednisone ? 7. ?PMR/Inflammatory Polyarthritis FOLLOW-UP APPOINTMENTS ALREADY SCHEDULED WITH A [facility] PROVIDER: No future appointments. DISCHARGE [...] RN, RN 10/14/2017 6:23 PM Addendum 1822- Annmarie [facility] has not called back stating if the patient has received precert. RN spoke with Joan customer care team coach and she states she has not heard anything back from [facility]. Patient updated. 1630-Per customer care team coach Debbie Odellley patients precert is no longer active and states that [facility] is working towards new precert for later today. RN and customer care team coach updated patient on discharge situation. Previous Version Keya Robles RN, RN 10/15/2017 9:52 AM Signed CARE MANAGEMENT PROGRESS NOTE SERVICE DATE: 10/15/2017 SERVICE TIME:9:49 A.M. Spoke with Allie, staff member at [facility]. They do not have pre-cert at this time so patient is unable to come to them this weekend. The earliest would be Tuesday, if they can obtain if at that time. LOS: 4 days SIGNATURE: Keya Robles RN PATIENT NAME: Dia Mccullough DATE: October 15, 2017 TIME: 9:49 AM PAGER/CONTACT #: [phone] Patsy Kirby MD, MD 10/16/2017 5:52 AM [...] tablet ORAL q 4 H PRN Kaycee [employer] [place] 1 tablet at 10/15/17 0857 polyethylene [...] Leg hematoma, left, initial encounter 10/08/2017 - Leechburg disease Chronic - Venous insufficiency (chronic) (peripheral) - CKD (chronic kidney disease) stage 3, GFR 30-59 ml/min 11/28/2014 - Pulmonary emboli (HCC) 01/30/2014 Overview Note: clinically resolved - DVT (deep venous thrombosis) ([facility]) 01/08/2014 Overview Note: recurrent Assessment/Plan [...] be performed due to insurance reasons at [facility] patient, and she would prefer to still go to [facility] and get CT scan only even though [...] follow. ? 5. ?CKF S3 ? 6. ?Leechburg's Dz - prednisone ? ? 7. ?PMR/Inflammatory [...] 2300 vte non-pharmacologic prophylaxis - none indicated (va,ks) 10/08/17 230 vte current anticoag therapy (va,ks) Disposition: SNF,pending precert Plan of care discussed with: Patient and RN SIGNATURE: Patsy Kirby MD PATIENT NAME: Dia Mccullough DATE: October 15, 2017 TIME: 8:18 PM PAGER/CONTACT #: monica brito [phone] Patsy Kirby MD, MD 10/17/2017 3:57 AM [...] tab(s) (DIFLUCAN) 400 mg ORAL DAILY Misael Odell Bollin 400 mg at 10/16/17 0849 acetaminophen [...] tablet ORAL q 4 H PRN Kaycee [employer] [place] 1 tablet at 10/15/17 0857 polyethylene [...] be performed due to insurance reasons at [facility] patient, and she would prefer to still go to [facility] and get CT scan only even though [...] 2300 vte non-pharmacologic prophylaxis - none indicated (va,ks) 10/08/17 2300 vte current anticoag therapy ([place], [place]) Disposition: SNF,pending precert Plan of care discussed with: Patient and RN SIGNATURE: Patsy Kirby MD PATIENT NAME: Dia Mccullough DATE: October 16, 2017 TIME: 10:00 PM PAGER/CONTACT #: monica castano etx [phone] CBC W/DIFF, AUTOMATED Collected: 09/29/2017 Status: F Source: [place] 5:05 AM [facility] [place] TYPE CODE TESTS RESULT OUT OF [...] MACROCYTE 2+ Performed By: #### L100.0100 #### [facility] [address] [place], [place], [id number] BASIC METABOLIC Collected: 09/29/2017 Status: F Source: [place] PROFILE (BMP) 5:05 AM [facility] [place] TYPE CODE TESTS RESULT OUT OF [...] 8 GAP Performed By: #### L500.2500 #### [facility] [address] [facility] [place], [address] DISCHARGE SUMMARY Observed: 09/27/2017 Status: F Source: [place] 9:27 PM [facility] Medical Records Department [address] [place] [address] Discharge Summary 09/27/172124 MR#: [id number] Acct: [id number] Name: DIA MCCULLOUGH Rep #: [id number] : 1940 77 From: Alejo Ortega MD PCP: OUT OF TOWN DOCTOR Status: ADM IN Y Location: [place] [address] Discharge Date and Diagnosis - Problem List [...] strengthening, prior to discharge home. Discharge to [facility] for respite stay, resident looking for [...] take at Discharge Fluticasone 0.05% [Flonase Nasal [place]] 1 spray NASAL PRN PRN 09/18/17 Omeprazole [...] DAILYCM #30 cap Primary Care Physician: Moreno Doctor,Out of [Primary Care Provider] - Please follow up with your Primary Care Physician in: 1 week. Disposition: Asstd Living/Non-Skill [place] Minutes spent on discharge:: 30 Patient Condition:: Stable Medical Necessity - Tobacco Use Smoking Status: Never smoker Tobacco Use: Non-smoker Meaningful Use Info Meaningful Use Diagnoses (Choose all that apply): VTE - VTE Anticoag overlap given w/in hospital stay or rx'd at mn?: No Reason overlap not ordered, prescribed, or given for 5 days: Treatment Not Indicated 09/27/172126 <Electronically signed by Alejo Ortega MD> Date Alejo Ortega MD Cosigner Signature (if applicable): Date CC: OUT OF TOWN DOCTOR; Alejo Ortega MD Signed DISCHARGE INSTRUCTION Observed: 09/27/2017 Status: F Source: [place] 9:25 PM [facility] [place] [facility] Medical Records Department [address] [place] [address] Instructions for Home/Discharge Instructions 09/27/172121 MR#: [id number] Acct: [id number] Name: DIA MCCULLOUGH Rep #: [id number] : 1940 77 From: Alejo Ortega MD [...] take at Discharge Fluticasone 0.05% [Flonase Nasal [place]] 1 spray NASAL PRN PRN 09/18/17 Omeprazole [...] DAILYCM #30 cap Primary Care Physician: Moreno Doctor,Out of [Primary Care Provider] - Please follow up with your Primary Care Physician in: 1 week. Proposed Discharge Date: 09/30/17 09/27/172124 <Electronically signed by Alejo Ortega MD> Date Alejo Ortega MD CC: OUT OF TOWN DOCTOR CBC W/DIFF, AUTOMATED Collected: 09/22/2017 Status: C Source: [place] 5:10 AM [facility] [place] TYPE CODE TESTS RESULT OUT OF [...] 1239 PATH REV previously reported as: September Performed By: #### L100.0100 #### [facility] [address] [place], [address] BASIC METABOLIC Collected: 09/22/2017 Status: F Source: [place] PROFILE (BMP) 5:10 AM [facility] [place] TYPE CODE TESTS RESULT OUT OF [...] GAP 7 Performed By: #### L500.2500 #### [facility] [address] [place], [address] HISTORY AND PHYSICAL Observed: 09/21/2017 Status: F Source: [place] EXAM 9:20 PM [facility] [place] Medical Records Department [address] [place] [address] History and Physical 09/21/172055 MR#: [id number] Acct: [id number] Name: DIA MCCULLOUGH Rep #: [id number] : 1940 77 From: Alejo Ortega MD PCP: OUT OF TOWN DOCTOR Status: ADM IN Y Location: [facility] Problem List (1) Debility Status: Acute (2) [...] with below past medical history presented to [facility] Emergency Department 09/18/2017 with bilateral lower extremity DVT. 09/18/2017 EKG sinus tachycardia, left axis deviation. Resident at [facility], [employer] ordered doppler ultrasound of legs positive for bilateral lower extremity DVT. History of DVT, PE. Previously on coumadin, stopped 08/24/2017 due to bowel perforation, sepsis. Resident was at [facility] and refused surgery, she was referred to hospice. Patient graduated hospice when she did not of GI bleed. Transfused 2 units PRBC 1 day prior to [facility] Emergency Department, felt better after transfusion. [...] surgery. 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 * Hypertension - Metoprolol 12.5MG BID. * GERD - Pantoprazole 20MG daily. * Leechburg - Prednisone 5MG BID. 09/21/172119 <Electronically signed by Alejo Ortega MD> Date Alejo Ortega MD Cosigner Signature: Date (if applicable) CC: OUT OF TOWN DOCTOR; Alejo Ortega MD Signed DISCHARGE SUMMARY Observed: 09/21/2017 Status: F Source: [place] 4:00 PM [facility] Medical Records Department [address] [place] [address] Discharge Summary 09/21/17 1523 MR#: [id number] Acct: [id number] Name: DIA MCCULLOUGH Rep #: [id number] : 1940 77 From: Philippe DUNCAN PCP: OUT OF TOWN DOCTOR Status: ADM IN Y Location: [facility] [id number] ADDENDUM by Mansoor Llamas MD on 09/21/17 [...] have been reviewed. Inpatient E AND M: [id number] Disch Hosp 09/21/17 1600 <Electronically signed by [...] (deep venous thrombosis) (Acute) Chronic venous stasis Leechburg Disease CKDIII Hx Bowel perforation and GI [...] GI bleed, bowel perforation, CKD stage III, Leechburg's disease, chronic venous insufficiency, who presented to [...] He was advised that she go to [facility] at this time. The patient remained in stable condition and was discharged to TCU when approved. She will continue therapeutic Lovenox as an outpatient. This patient was seen by Philippe Alfaro PA-C under the supervision of Doctor Llamas. [] Discharge Diet: No Restrictions Discharge Activity: Return to Normal Activity Home Medications: Medications to take at Discharge Fluticasone 0.05% [Flonase Nasal [place]] 1 spray NASAL PRN PRN 09/18/17 Omeprazole [...] PO QHS #5 tab Primary Care Physician: Moreno Hook,Out of [Primary Care Provider] - Please follow up with your Primary Care Physician in: 2 weeks Additional Instructions: Apply compression socks BL daily. Disposition: [facility] facility Minutes spent on discharge:: 35 Patient Condition:: Stable Medical Necessity - Tobacco Use Smoking Status: Never smoker Meaningful Use Info Meaningful Use Diagnoses (Choose all that apply): VTE - VTE Anticoag overlap given w/in hospital stay or rx'd at mn?: Yes Pt receive overlap for 5 days?: No Reason overlap not ordered, prescribed, or given for 5 days: Procedure Not Indicated 09/21/17 1529 <Electronically signed by Philippe DUNCAN> Date Philippe DUNCAN 09/21/17 1556<Electronically signed by Mansoor Llamas MD> Cosigner Signature (if applicable): Date Mansoor Llamas MD CC: DAKOTA Alfaro; OUT OF TOWN DOCTOR; Mansoor Llamas MD Signed TRANSFER TO EXTENDED Observed: 09/21/2017 Status: F Source: [facility] 3:56 PM [facility] [place] [facility] Medical Records Department [address] [place], [place] [address] [place] [address] Transfer to Extended Care MR#: [id number] Acct: [id number] Name: DIA MCCULLOUGH Rep #: [id number] : 1940 77 From: Philippe DUNCAN PCP: OUT OF TOWN DOCTOR Status: ADM IN DIA MCCULLOUGH (Patient) (Health Ins. Claim No.) (Day of Discharge to Facility) Certification of patient admission REQUIRED AT TIME OF ADMISSION. I CERTIFY THAT POST-HOSPITAL ECF SERVICES ARE REQUIRED TO BE GIVEN ON AN IN-PATIENT BASIS BECAUSE OF THE ABOVE NAMED PATIENT'S NEED FOR RESIDENTIAL CARE ON A CONTINUING BASIS FOR THE CONDITION(S) FOR WHICH HE/SHE WAS RECEIVING IN-PATIENT HOSPITAL SERVICES PRIOR TO HIS/HER TRANSFER TO THE F. 09/21/17 1523 <Electronically signed by Philippe DUNCAN> [...] - Follow Up Care Primary Care Physician: Moreno Doctor,Out of [Primary Care Provider] - Please follow up with your Primary Care Physician in: 2 weeks <Mansoor Llamas - Last Filed: 09/21/17 15:51> - Diet 09/18/17 21:10 Diet: Regular Diet Food consistency:: Regular Liquid Consistency:: Regular/Thin - Routine Orders/Code Status Suppository Type: Dulcolax 10mg Suppository Frequency: Daily PRN 09/21/17 1523 <Electronically signed by Philippe DUNCAN> Date Philippe DUNCAN CC: OUT OF TOWN DOCTOR Signed 12 LEAD ELECTROCARDIOGRAM Observed: 09/21/2017 Status: F Source: [place] 1:30 PM [facility] Cardiovascular Services [address] [place] [address] 12 Lead EKG 09/18/17 1828 MR#: [id number] Acct: [id number] Name: DIA MCCULLOUGH Rep #: [id number] : 1940 77 From: Marck Thomas MD Attending Dr: Mansoor Llamas MD Status: ADM IN Ordering Dr: Meme Echevarria MD Date: 09/18/17 Location: [facility] Sex: F C Admitted: 09/18/17 Test Reason : GENERALILLNESS Blood Pressure : / mmHG Vent. Rate : 109 BPM Atrial Rate : 109 BPM P-R Int : 116 ms QRS Dur : 076 ms QT Int : 334 ms P-R-T Axes : 001 -37 034 degrees QTc Int : 449 ms Sinus tachycardia Left axis deviation Abnormal ECG Confirmed by MARCK THOMAS MD ([id number]), video news editor BALJINDER DAMON ([id number]) on 09/21/2017 1:30:15 PM Referred By: MAXI Confirmed By:MARCK THOMAS MD 09/21/17 0610 Date Marck Thomas MD CC: Meme Echevarria MD; OUT OF TOWN DOCTOR; Mansoor Llamas MD Signed BASIC METABOLIC Collected: 09/21/2017 Status: F Source: [place] PROFILE (BMP) 5:30 AM [facility] TYPE CODE TESTS RESULT OUT OF [...] GAP 8 Performed By: #### L500.2500 #### [facility] [address] [place], [address] CBC W/DIFF, AUTOMATED Collected: 09/21/2017 Status: F Source: [place] 5:30 AM [facility] [place] TYPE CODE TESTS RESULT OUT OF [...] Lymph 1.32 Performed By: #### L100.0100 #### [facility] [address] [place], [place], [address] HH, HEMOGLOBIN AND Collected: 09/20/2017 Status: F Source: [place] HEMATOCRIT 8:50 PM [facility] TYPE CODE TESTS RESULT OUT OF RANGE REFERENCE UNITS LAB L100.1300 12.0-15.0 g/dl Low HGB 9.0 LAB L100.1400 37-47 % Low HCT 29.6 Performed By: #### L100.0600 #### [facility] [address] [place], [address] TYPE AND SCREEN Collected: 09/20/2017 Status: F Source: [place] 8:50 PM [facility] Order Comment: CMV NEG? N Number [...] NEGATIVE Screen Performed By: #### B101.7450 #### [facility] [address] [place], [address] CBC W/DIFF, AUTOMATED Collected: 09/20/2017 Status: F Source: [place] 5:10 AM [facility] [place] TYPE CODE TESTS RESULT OUT OF [...] Lymph 0.98 Performed By: #### L100.0100 #### [facility] [address] [place], [place], [id number] BASIC METABOLIC Collected: 09/20/2017 Status: F Source: [place] PROFILE (BMP) 5:10 AM [facility] [place] TYPE CODE TESTS RESULT OUT OF [...] 5 GAP Performed By: #### L500.2500 #### [facility] [address] [place], [place], [address] HH, HEMOGLOBIN AND Collected: 09/19/2017 Status: F Source: [place] HEMATOCRIT 8:04 PM [facility] TYPE CODE TESTS RESULT OUT OF RANGE REFERENCE UNITS LAB L100.1300 12.0-15.0 g/dl Low HGB 9.1 LAB L100.1400 37-47 % Low HCT 29.6 Performed By: #### L100.0600 #### [facility] [place], [address] CBC W/DIFF, AUTOMATED Collected: 09/19/2017 Status: F Source: [place] 5:05 AM [facility] [place] TYPE CODE TESTS RESULT OUT OF [...] Lymph 1.43 Performed By: #### L100.0100 #### [facility] [address] [place], [address] PROTHROMBIN TIME W/INR Collected: 09/19/2017 Status: F Source: [place] 5:05 AM [facility] [place] TYPE CODE TESTS RESULT OUT OF RANGE REFERENCE UNITS LAB L300.4150 11.7-14.9 SECONDS High PROTIME 15.7 LAB L300.4200 Normal INR 1.3 Performed By: #### L300.3900 #### [facility] [address] [facility] [place], [address] BASIC METABOLIC Collected: 09/19/2017 Status: F Source: [place] PROFILE (BMP) 5:05 AM [facility] [place] TYPE CODE TESTS RESULT OUT OF [...] GAP 10 Performed By: #### L500.2500 #### [facility] [address] [place], [address] HISTORY AND PHYSICAL Observed: 09/18/2017 Status: F Source: [place] EXAM 10:03 PM [facility] [place] [facility] Medical Records Department [address] [place] [address] History and Physical 09/18/17 2139 MR#: [id number] Acct: [id number] Name: DIA MCCULLOUGH Rep #: [id number] : 1940 77 From: Fredo Houser MD PCP: OUT OF TOWN DOCTOR Status: ADM IN Y Location: [place] [address] Problem List (1) History of bowel perforation [...] presented to the emergency room from the [facility] living because she was found to have [...] perforation for which she was sent to [facility] and she refused to go for surgery. [...] with assistance. 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 Smoking [...] happened 3 weeks ago, was sent to [facility] but patient refused surgery. 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 #5 Leechburg's disease: Continue prednisone, she follows up with [...] twice daily. This note was generated with [employer] dictation software. It may contain incorrect words, spelling, and punctuation that were not noted in checking the note before signing. Code Visit Inpatient E AND M: 95535 Init Hosp L3 09/18/172202 <Electronically signed by Fredo Houser MD> Date Fredo Houser MD Cosigner Signature: Date (if applicable) CC: Fredo Houser; OUT OF TOWN DOCTOR Signed EMERGENCY DEPARTMENT Observed: 09/18/2017 Status: F Source: [place] SUMMARY 9:11 PM [facility] Medical Records Department [address] [place] [address] Emergency Department Summary 09/18/17 1820 MR#: [id number] Acct: [id number] Name: DIA MCCULLOUGH Rep #: [id number] : 1940 77 From: Meme Echevarria MD [...] bowel and was septic. She was at [facility] at the time. She declined surgery [...] extremity DVT This note was generated with [employer] dictation software. It may contain incorrect words, spelling, and punctuation that were not noted in review of the chart prior to signing ED Disposition - Plan for ED Patient: Chief Complaint: General Illness Referrals: [facility] Doctor,Out of [Primary Care Provider] - What to do if you have Problems For any increased pain, shortness of breath, bleeding, nausea or vomiting, chest pain, or any unexpected problems, contact your Primary Care Provider. Call [facility] ([phone]) or report to the closest Emergency Room. Call 911 if necessary. 09/18/17 2111 <Electronically signed by Meme Echevarria MD> Date Meme Echevarria MD Cosigner Signature (If Indicated): Date CC: OUT OF TOWN DOCTOR CTA CHEST W/WO Observed: 09/18/2017 Status: F Source: [place] CONTRAST 7:41 PM [facility] Imaging Services [address] [place] [address] CTA Chest W/WO Contrast MR#: [id number] Acct: [id number] Name: DIA MCCULLOUGH Rep #: [id number] : 1940 F 77 From: Obey Davenport MD PCP: OUT OF TOWN DOCTOR Status: REG ER Study: CTA Chest W/WO Contrast Date of Exam: 09/18/17 Exam# [id number] Ordering Dr: Meme Echevarria MD STUDY: CTA [...] Meme Echevarria MD; OUT OF TOWN DOCTOR Assistant Softball Coach: Signed CBC W/DIFF, AUTOMATED Collected: 09/18/2017 Status: F Source: [place] 6:40 PM [facility] TYPE CODE TESTS RESULT OUT OF [...] LYMPHOPENIA NOTED Performed By: #### L100.0100 #### [facility] [address] [place], [address] BASIC METABOLIC Collected: 09/18/2017 Status: F Source: [place] PROFILE (BMP) 6:40 PM [facility] Order Comment: 'TROP' Serial specimen #1, [...] 8 Performed By: #### L500.2500, L501.4010 #### [facility] [address] [place], [address] TROPONIN-I Collected: 09/18/2017 Status: F Source: [place] 6:40 PM [facility] Order Comment: 'TROP' Serial specimen #1, #2, #3, or #4: 1 TYPE CODE TESTS RESULT OUT OF RANGE REFERENCE UNITS LAB L501.4010 <0.06 ng/mL Normal < 0.02 TROPONIN-I Result Comment: TROPONIN-I EXPECTED VALUES <0.05 NEGATIVE 0.06 - 0.59 AT RISK OF MO > OR = 0.60 SUGGEST MO Performed By: #### L500.2500, L501.4010 #### [facility] [address] [place], [place], [address] PROTHROMBIN TIME W/INR Collected: 09/18/2017 Status: F Source: [place] 6:40 PM [facility] TYPE CODE TESTS RESULT OUT OF RANGE REFERENCE UNITS LAB L300.4150 11.7-14.9 SECONDS Normal PROTIME 14.9 LAB L300.4200 Normal INR 1.2 Performed By: #### L300.3900, L300.4310 #### [facility] [address] [facility] [id number] PARTIAL THROMBOPLAST Collected: 09/18/2017 Status: F Source: [place] TIME 6:40 PM [facility] [place] TYPE CODE TESTS RESULT OUT OF REFERENCE UNITS RANGE LAB L300.4310 24.1-36.2 Seconds Low PTT 20.3 Performed By: #### L300.3900, L300.4310 #### [facility] [address] [facility] [address] TYPE AND SCREEN Collected: 09/16/2017 Status: F Source: [place] 5:17 PM [facility] Order Comment: PRETRANSFUSION HGB = 7.2 HCT = 23.4 PERFORMED AT [facility] CMV NEG?* N Give When? T+1 Irradiated? N Leukodepleted? Y Reason for Type AND Screen/Red Cells: ANEMIA TYPE CODE TESTS RESULT OUT OF RANGE REFERENCE UNITS LAB B10.0800 A Normal BLOOD TYPE GEL POSITIVE LAB B100.4000 Normal Antibody NEGATIVE Screen Performed By: #### B101.7450 #### [facility] [address] [place], [place], [address] RC Collected: 09/16/2017 Status: F Source: [place] 5:17 PM [facility] [place] TYPE CODE TESTS RESULT OUT OF REFERENCE UNITS RANGE LAB U100.0000 [id number] TRANSFUSED PRODUCT: T AND S with Crossmatch, Red Cells COUNT: 2 Performed By: #### U100.0000 #### [facility] - refer to report for specific site DISCHARGE INSTRUCTION Observed: 09/05/2017 Status: F Source: [place] 1:44 AM [facility] Medical Records Department [address] [place] [address] Discharge Instruction 09/05/17 014 MR#: [id number] Acct: [id number] Name: DIA MCCULLOUGH Rep #: [id number] : 1940 77 From: Julieth Garcia DO PCP: OUT OF TOWN DOCTOR Status: REG ER ED Disposition - Plan for ED Patient: Disposition: Home or Assisted Living Chief Complaint: GI Bleed Instructions: ED Bleed UGI Stable, Taking Coumadin Referrals: [facility] Doctor,Out of [Primary Care Provider] - What to do if you have Problems For any increased pain, shortness of breath, bleeding, nausea or vomiting, chest pain, or any unexpected problems, contact your Primary Care Provider. Call [facility] ([phone]) or report to the closest Emergency Room. Call 911 if necessary. 09/05/17143 <Electronically signed by Julieth Garcia DO> Date Julieth Garcia DO Cosigner Signature (If Indicated): Date CC: OUT OF TOWN DOCTOR EMERGENCY DEPARTMENT Observed: 09/05/2017 Status: F Source: [place] SUMMARY 1:43 AM [facility] [place] [facility] Medical Records Department [address] [place] [address] Emergency Department Summary 09/05/17 0045 MR#: [id number] Acct: [id number] Name: DIA MCCULLOUGH Rep #: [id number] : 1940 77 From: Julieth Garcia DO PCP: OUT OF TOWN DOCTOR Status: REG ER - ER Visit Summary Date of Service: 09/05/17 Chief Complaint: [] Upper and lower GI bleed History of Present Illness: The patient is a 77 F [] is a hospice patient who presents with upper and lower GI bleed. Hospice [facility] STRINGER is at the bedside reports that she [...] Upper GI bleed Lower GI bleed Vomiting DNR-GUSSET FOLDER This note was generated with walkbyation software. It may contain incorrect words, spelling, and punctuation that were not noted in review of the chart prior to signing ED Disposition - Plan for ED Patient: Chief Complaint: GI Bleed Referrals: [facility] Doctor,Out of [Primary Care Provider] - What to do if you have Problems For any increased pain, shortness of breath, bleeding, nausea or vomiting, chest pain, or any unexpected problems, contact your Primary Care Provider. Call [facility] ([phone]) or report to the closest Emergency Room. Call 911 if necessary. 09/05/17 0143 <Electronically signed by Julieth Garcia DO> Date Julieth Garcia DO Cosigner Signature (If Indicated): Date CC: OUT OF [facility] DOCTOR CBC W/DIFF, AUTOMATED Collected: 09/04/2017 Status: F Source: [place] 11:52 PM [facility] [place] TYPE CODE TESTS RESULT OUT OF [...] Lymph 1.54 Performed By: #### L100.0100 #### [facility] [address] [place], [address] PROTHROMBIN TIME W/INR Collected: 09/04/2017 Status: F Source: [place] 11:52 PM [facility] [place] TYPE CODE TESTS RESULT OUT OF REFERENCE UNITS RANGE LAB L300.4150 11.7-14.9 SECONDS High PROTIME 57.3 LAB L300.4200 High alert INR 6.5 Result Comment: CRITICAL VALUE VERIFIED. CALLED TO [facility] ED 09/05/17 0018 Latisha Regan. RESULTS READ BACK BY SAME . Performed By: #### L300.3900 #### [facility] [address] [place], [place], [address] COMPREHENSIVE METABOLIC Collected: 09/04/2017 Status: F Source: [facility] 11:52 PM [facility] [place] TYPE CODE TESTS RESULT OUT OF [...] GAP 11 Performed By: #### L500.4050 #### [facility] [address] [place], [address] 12 LEAD ELECTROCARDIOGRAM Observed: 08/26/2017 Status: F Source: [place] 11:32 AM [facility] [place] [facility] Cardiovascular Services [address] [place] [address] 12 Lead EKG 08/24/17 0841 MR#: [id number] Acct: [id number] Name: DIA MCCULLOUGH Rep #: [id number] : 1940 77 From: Jackson Uriostegui MD [...] ECG Confirmed by MOODY MIN, JACKSON ([id number]), video news editor BALJINDER DAMON ([id number]) on 08/26/2017 11:31:51 AM Referred By: DORIS Confirmed By:JACKSON URIOSTEGUI MD 08/26/17 1131 Date Jackson Uriostegui MD CC: Artur Flores MD; OUT OF TOWN DOCTOR Signed ED NOTE Observed: 08/24/2017 Status: COMPLETED Source: [place] 11:34 PM [facility] [place] REPOSITORY HNO ID: [id number] Author: Tiny (Rn) GAURANG Moore Service: Emergency Medicine Author Type: Registered Nurse Type: ED Notes Filed: 08/24/2017 11:36 PM Note Text: Pt discharged with scripts x4 by HUMA Stanley RN. Pt left via w/c with family. ED NOTE Observed: 08/24/2017 Status: COMPLETED Source: [place] 10:28 PM [facility] OTHER [place] REPOSITORY HNO ID: [id number] Author: Coty Rajan (Sw) Service: Social Work Author Type: Shoemaker Apprentice Type: ED Notes Filed: 08/24/2017 10:31 PM Note Text: SOCIAL WORK PROGRESS NOTE SERVICE DATE: 08/24/2017 SERVICE TIME: 21:30 LOS: 0 days Received consult from bedside RN re: Pt's family has questions regarding hospice Met with pt's dtr, son and granddaughter; answered questions regarding hospice in the home, which pt (per family) has agreed on. Pt's dtr requested contact information for [facility] hospice; provided same. Pt's dtr states she will contact [facility] after hours tonight. Provided on-going support and validation to pt's family. Time Spent (minutes): 45 SIGNATURE: SAMUEL Cazares PATIENT NAME: Dia Mccullough DATE: August 24, 2017 TIME: 10:28 PM PAGER/CONTACT #: [phone] ED NOTE Observed: 08/24/2017 Status: COMPLETED Source: [place] 10:03 PM [facility] REPOSITORY HNO ID: [id number] Author: Ana SargentRn) GAURANG Carlson Service: Nursing Author Type: Registered Nurse [...] ED NOTE Observed: 08/24/2017 Status: COMPLETED Source: [place] 9:42 PM [facility] REPOSITORY HNO ID: [id number] Author: Ana Allen) GAURANG Carlson Service: Nursing Author Type: Registered Nurse Type: ED Notes Filed: 08/24/2017 9:43 PM Note Text: Notified Dr Thibodeaux that patient is requesting zofran for nausea, Dr said ok to give. CNDS Observed: 08/24/2017 Status: COMPLETED Source: [place] 9:37 PM [facility] REPOSITORY HNO ID: [id number] Author: Gold Thibodeaux Service: General Surgery Author Type: Resident Type: Discharge Summaries Filed: 08/24/2017 9:45 PM Note Text: DISCHARGE NOTE (Patient Admitted Less than 48 Hours) SERVICE DATE: 08/24/2017 SERVICE TIME: 9:37 PM ADMISSION DATE: 08/24/2017 Ms Mccullough presented to the ED as a transfer from [facility]. She had gone there with an acute [...] Take 25 mg by mouth once daily. 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) ranitidine (ZANTAC) 150 mg Take 150 mg [...] NURSING PROG Observed: 08/24/2017 Status: COMPLETED Source: [place] 7:25 PM [facility] OTHER CAMPUS REPOSITORY HNO ID: [id number] Author: Jaden (Gaurang) GAURANG Martinez Service: (none) Author Type: Registered Nurse Type: Nursing Progress Note Filed: 08/24/2017 11:29 PM Note Text: Nursing Progress Note Patient Name: Dia Mccullough Patient Location: AH-SUGYYE-67/ED-03 1920: Assumed care of patient, assessment completed [...] ED NOTE Observed: 08/24/2017 Status: COMPLETED Source: [place] 6:50 PM [facility] REPOSITORY HNO ID: [id number] Author: Jalen SargentRn) GAURANG Barrios Service: Emergency [...] insisting that she could get care at [facility], continues to insist on leaving. Pt is now agreeable to stay and receive antibiotic tx but still wants to go home. ED NOTE Observed: 08/24/2017 Status: COMPLETED Source: [place] 5:00 PM [facility] REPOSITORY HNO ID: [id number] Author: Jalen Allen) GAURANG Barrios Service: Emergency Medicine Author Type: Registered Nurse Type: ED Notes Filed: 08/24/2017 5:26 PM Note Text: Blood cultures drawn and sent. 2nd set lac. Observed: 08/24/2017 Status: F Source: [facility] BLOOD 5:00 PM HEALTH SYSTEM REPOSITORY Test performed at [facility] No growth Performed By: #### C_BLO #### [place] [address] PLAN OF CARE Observed: 08/24/2017 Status: COMPLETED Source: [place] 4:51 PM [facility] OTHER [facility]AMPUS REPOSITORY HNO ID: [id number] Author: Aly Mills Television Director) Service: (none) Author Type: Invoice Checker Type: Plan of Care Filed: 08/24/2017 4:51 [...] - Vioxx [Rofecoxib] GI Upset Preferred Pharmacy: [facility] Current ACREAGE REPORTER Medications: Prior to Admission medications as of [...] Take 1 tablet by mouth once daily. 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) 08/23/2017 Yes ranitidine (ZANTAC) 150 mg tablet [...] by mouth twice daily. As directed Aly Bacaling Television Director pager [phone] August 24, 2017 4:51 PM [facility] Observed: 08/24/2017 Status: COMPLETED Source: [place] 4:32 PM [facility] OTHER CAMPUS REPOSITORY HNO ID: [id number] Author: Chaplain Mccollum (Chaplain) Service: (none) Author Type: Healthcare Specialist Type: Allied Health Filed: 08/24/2017 4:33 PM Note Text: SPIRITUALCARE Spiritual Care Visit- Brief Note Name: Dia Mccullough Date: August 24, 2017 Notes: As responded to page requesting visit. Pt would like a visit from a . Sat with pt for a bit, will ask Fr to follow up. Healthcare Specialist Signature: CHAPLAIN Veda To contact the Spiritual Care Department: Please call [phone] or Page the On-Call at pager [phone] Thank you for the opportunity to be of service. This is an electronically created document. IF PRINTED, PLEASE DO NOT REMOVE FROM THE CHART OR MODIFY PRINTED COPY. HISTORY PHYSICAL Observed: 08/24/2017 Status: COMPLETED Source: [place] 4:21 PM [facility] OTHER CAMPUS REPOSITORY HNO ID: [id number] Author: Gold Thibodeaux Service: General Surgery Author [...] pain for 3 days. She presented to [facility] where they did a CT scan [...] Independent PAST MEDICAL HISTORY Diagnosis Date - [place] disease - Asthma - CKD (chronic kidney [...] HTN (hypertension) - Hypercholesterolemia - Inflammatory polyarthritis ([facility]) Dr. Hansen - Inflammatory polyarthropathy - Normocytic anemia - PE (pulmonary thromboembolism) ([facility]) 01/05/14 Bilat, extensive - Pulmonary [...] Albumin 2.0, Cr 1.44 CT Abdomen/Pelvis from [facility]: Small amount of free air in the [...] 24, 2017 TIME: 4:21 PM PAGER/CONTACT #: [phone] PROGRESS Observed: 08/24/2017 Status: COMPLETED Source: [place] 4:19 PM [facility] OTHER [place] REPOSITORY HNO ID: [id number] Author: Gold (Res) Morelia Service: General Surgery Author Type: Resident Type: [...] PROV NOTE Observed: 08/24/2017 Status: COMPLETED Source: [place] 2:06 PM [facility] OTHER CAMPUS REPOSITORY HNO ID: [id number] Author: Elizabeth Nolasco MD Service: Emergency Medicine [...] been febrile and tachycardic since being at [facility]. She endorses nausea but no vomiting. PAST MEDICAL HISTORY Diagnosis Date - [place] disease - Asthma - CKD (chronic kidney [...] HTN (hypertension) - Hypercholesterolemia - Inflammatory polyarthritis ([facility]) Dr. Hansen - Inflammatory polyarthropathy - Normocytic anemia - PE (pulmonary thromboembolism) ([facility]) 01/05/14 Bilat, extensive - Pulmonary [...] 3pm. Patient with perforated viscous sent from [facility] for surgery. Patient seen by surgery and [...] round of antibiotics. Son at bedside. Nursing last model department supervisor aware. Cosme Torres MD 08/24 2012 [...] affidavit. SIGNATURE: MD Liv Nieves (Res) MD Jyame Resident 08/24/17 3911 Liv (Res) MD Jayme Resident 08/24/17 9701 I have personally seen and examined this [...] ED NOTE Observed: 08/24/2017 Status: COMPLETED Source: [place] 2:05 PM [facility] REPOSITORY HNO ID: [id number] Author: Jalen Allen) GAURANG Barrios Service: Emergency Medicine Author Type: Registered Nurse Type: ED Notes Filed: 08/24/2017 5:24 PM Note Text: Blood cultures drawn and sent. 1st set with IV start LAC. Observed: 08/24/2017 Status: F Source: [facility] CULT BLOOD 2:05 PM HEALTH SYSTEM REPOSITORY Test performed at [facility] No growth Performed By: #### C_BLO #### [place] [address] ED NOTE Observed: 08/24/2017 Status: COMPLETED Source: [place] 1:45 PM [facility] OTHER [place] REPOSITORY HNO ID: [id number] Author: Jalen Allen) GAURANG Barrios Service: Emergency Medicine Author Type: Registered Nurse Type: ED Notes Filed: 08/24/2017 1:49 PM Note Text: Pt c/o diffuse abd pain since Tuesday getting progressively worse. Sts she feels nauseated but no vomiting. Pt seen by [place] [facility] dx with perforated bowel and sent here for surgery consult. TYPE AND SCREEN Collected: 08/24/2017 Status: F Source: [facility] 1:45 PM HEALTH SYSTEM REPOSITORY TYPE CODE TESTS RESULT OUT OF REFERENCE UNITS RANGE LAB ABO(LOINC) A ABO Group LAB FIELD OPERATIONS MANAGER(LOINC ) RH Type Positive LAB ABSCR(LOIN C) Antibody NEGATIVE Screen LAB BBCMT(LOIN C) Comment See Below Result Comment: Screen &/or Xmatch expires in 3 days at 12 midnight. Redraw patient at that time. Performed By: #### T&S #### [facility] [address] [place] [id number] ED NOTE Observed: 08/24/2017 Status: COMPLETED Source: [place] 1:39 PM CLINIC OTHER CAMPUS REPOSITORY O ID: [id number] Author: Elizabeth (Rn) GAURANG Johnson Service: (none) Author Type: Registered Nurse Type: ED Notes Filed: 08/24/2017 1:39 PM Note Text: Bed: ED-03 Expected date: Expected time: Means of arrival: Comments: Surgery Consult EMERGENCY DEPARTMENT Observed: 08/24/2017 Status: F Source: [place] SUMMARY 11:25 AM [facility] [place] [facility] Medical Records Department [address] [place] [address] Emergency Department Summary 08/24/17 0825 MR#: [id number] Acct: [id number] Name: DIA MCCULLOUGH Rep #: [id number] : 1940 77 From: Artur Flores MD [...] difficulty or waxes. She requested transfer to [place]. I spoke to [facility] transfer line and the patient will be transferred to that facility ER to ER for surgical evaluation Treatment Plan: [] Disposition: Transfer Impression: Intra-abdominal free air Possible intra-abdominal abscess Systemic inflammatory response syndrome This note was generated with Chasqui [employer] dictation software. It may contain incorrect words, spelling, and punctuation that were not noted in review of the chart prior to signing ED Disposition - Plan for ED Patient: Chief Complaint: Abd Pain Referrals: [facility] Doctor,Out of [Primary Care Provider] - What to do if you have Problems For any increased pain, shortness of breath, bleeding, nausea or vomiting, chest pain, or any unexpected problems, contact your Primary Care Provider. Call [facility] ([phone]) or report to the closest Emergency Room. Call 911 if necessary. 08/24/17 1125 <Electronically signed by Artur Flores MD> Date Artur Flores MD Cosigner Signature (If Indicated): Date CC: OUT OF TOWN DOCTOR LACTIC ACID Collected: 08/24/2017 Status: F Source: [place] 8:40 AM [facility] [place] Order Comment: Yes/No query for Sepsis Lactate Rule Y TYPE CODE TESTS RESULT OUT OF RANGE REFERENCE UNITS LAB L503.6005 0.4-2.0 mmol/L Normal LACTIC ACID 1.6 Performed By: #### L503.6005 #### [facility] [place], [address] Observed: 08/24/2017 Status: F Source: [place] CULTURE, BLOOD (WB) 8:40 AM [facility] [place] BC No growth in 5 days. Performed By: #### M200.1000 #### [facility] [address] [facility] [place], [address] ABDOMEN/PELVIS WITH Observed: 08/24/2017 Status: F Source: [place] CONTRAST 8:25 AM [facility] [place] [facility] Imaging Services [address] [place] [address] Abdomen/Pelvis WITH Contrast MR#: [id number] Acct: [id number] Name: DIA MCCULLOUGH Rep #: [id number] : 1940 F 77 From: Adin Lara MD PCP: OUT OF TOWN DOCTOR Status: REG ER Study: Abdomen/Pelvis WITH Contrast Date of Exam: 08/24/17 Exam# [id number] Ordering Dr: Artur Flores MD STUDY: CT [...] Adin Lara MD at 10:44 EDT Tel [phone], Service support , CC: Artur Flores MD; OUT OF TOWN DOCTOR Assistant Softball Coach: Signed FOOT MIN 3 VIEWS Observed: 08/24/2017 Status: F Source: [place] 8:25 AM [facility] [place] [facility] Imaging Services [address] [place] [address] Foot min 3 Views MR#: [id number] Acct: [id number] Name: DIA MCCULLOUGH Rep #: [id number] : 1940 F 77 From: Adin Lara MD PCP: OUT OF TOWN DOCTOR Status: REG ER Study: Foot min 3 Views Date of Exam: 08/24/17 Exam# [id number] Ordering Dr: Artur Flores MD STUDY: X-RAY [...] Adin Lara MD at 10:45 EDT Tel [phone], Service support , CC: Artur Flores MD; OUT OF TOWN DOCTOR Assistant Softball Coach: Signed CHEST PA AND LATERAL Observed: 08/24/2017 Status: F Source: [place] 8:25 AM [facility] [place] [facility] Imaging Services [address] [place] [address] Chest PA and Lateral MR#: [id number] Acct: [id number] Name: DIA MCCULLOUGH Rep #: [id number] : 1940 F 77 From: Adin Lara MD PCP: OUT OF TOWN DOCTOR Status: REG ER Study: Chest PA and Lateral Date of Exam: 08/24/17 Exam# [id number] Ordering Dr: Artur Flores MD STUDY: X-RAY [...] Adin Lara MD at 10:46 EDT Tel [phone], Service support , CC: Artur Floers MD; OUT OF [facility] DOCTOR Assistant Softball Coach: Signed PROTHROMBIN TIME W/INR Collected: 08/24/2017 Status: F Source: [place] 8:25 AM [facility] [place] TYPE CODE TESTS RESULT OUT OF RANGE REFERENCE UNITS LAB L300.4150 11.7-14.9 SECONDS High PROTIME 25.7 LAB L300.4200 Normal INR 2.3 Performed By: #### L300.3900 #### [facility] [address] [place], [place], [address] CBC W/DIFF, AUTOMATED Collected: 08/24/2017 Status: F Source: [place] 8:18 AM [facility] [place] TYPE CODE TESTS RESULT OUT OF [...] Lymph 1.23 Performed By: #### L100.0100 #### [facility] [address] [place], [address] COMPREHENSIVE METABOLIC Collected: 08/24/2017 Status: F Source: [place] [facility] 8:18 AM [facility] [place] TYPE CODE TESTS RESULT OUT OF [...] 8 Performed By: #### L500.4050, L501.2450 #### [facility] [address] [place], [address] LIPASE Collected: 08/24/2017 Status: F Source: [place] 8:18 AM [facility] [place] TYPE CODE TESTS RESULT OUT OF RANGE REFERENCE UNITS LAB L501.2450 73-393 U/L Normal LIPASE 105 Performed By: #### L500.4050, L501.2450 #### [facility] [address] [place], [address] PROTEIN+CREATININE Collected: Status: F Source: [place] RATIO,URINE 08/03/2017 10:15 AM [facility] [place] TYPE CODE TESTS RESULT OUT OF RANGE REFERENCE UNITS LAB L501.1200 NO RANGE EST. mg/dL Normal UR CREAT 314.00 LAB L501.1930 <11.9 mg/dL High 30.7 PROTEIN,UR.R AN. LAB L501.1940 0-200 mg/g CRE Normal PROT:CRE 98 RATIO Performed By: #### L501.0900 #### [facility] [address] [place], [place], [address] CORTISOL SERUM Collected: 08/03/2017 Status: F Source: [place] 10:05 AM [facility] Order Comment: BASELINE OR POST MEDICATION STIMULATION?: 60 Min Post MED Stimulati Time Medication Given: 0900 TYPE CODE TESTS RESULT OUT OF RANGE REFERENCE UNITS LAB L509.6000 3.09-22.40 ug/dL Normal CORTISOL 18.80 Result Comment: Adult (AM) 4.30 - 22.40 ug/dL Adult (PM) 3.09 - 16.66 ug/dL Performed By: #### L509.6000 #### [facility] [address] [place], [address] CBC-COMPLETE BLOOD CNT Collected: 08/03/2017 Status: F Source: [place] NO DIFF 8:35 AM [facility] [place] TYPE CODE TESTS RESULT OUT OF [...] MPV 9.7 Performed By: #### L100.0500 #### [facility] [address] [place], [address] RENAL PROFILE Collected: 08/03/2017 Status: F Source: [place] 8:35 AM [facility] TYPE CODE TESTS RESULT OUT OF [...] CO2 34.0 Performed By: #### L500.3600 #### [facility] [address] [place], [place], [address] VITAMIN D,25 HYDROXY Collected: 08/03/2017 Status: F Source: [place] 8:35 AM [facility] TYPE CODE TESTS RESULT OUT OF RANGE REFERENCE UNITS LAB L506.1000 29.95-100.01 ng/mL Normal Vitamin D 61.7 25-OH Result Comment: Vitamin D 25(OH) Status Range Deficiency <20 ng/mL (50nmol/L) Insuffciency 20 - 30 ng/mL (50 - 75 nmol/L) Sufficiency 30 - 100 ng/mL (75 - 250 nmol/L) Toxicity >100 ng/mL (>250 nmol/L) Performed By: #### L506.1000 #### [facility] [address] [place], [place], [address] PTHIN Collected: 08/03/2017 Status: F Source: [place] 8:35 AM [facility] TYPE CODE TESTS RESULT OUT OF RANGE REFERENCE UNITS LAB L509.1000 18.4-80.1 pg/mL High PTHIN 86.0 Result Comment: Please Note: PTH INTACT METHOD AND REFERENCE RANGE CHANGE Effective 05/04/2017. Performed By: #### L509.1000 #### [facility] [address] [place], [address] CORTISOL SERUM Collected: 08/03/2017 Status: F Source: [place] 8:35 AM [facility] Order Comment: BASELINE OR POST MEDICATION STIMULATION?: Baseline TYPE CODE TESTS RESULT OUT OF RANGE REFERENCE UNITS LAB L509.6000 3.09-22.40 ug/dL Normal CORTISOL 6.40 Result Comment: Adult (AM) 4.30 - 22.40 ug/dL Adult (PM) 3.09 - 16.66 ug/dL Performed By: #### L509.6000 #### [facility] [address] [place], [address] PROGRESS Observed: 06/18/2017 Status: COMPLETED Source: [place] 11:52 AM [facility] REPOSITORY HNO ID: [id number] Author: Kendrick Mark Service: (none) Author Type: [...] with more than 50% of the total ycmt-lp-vyjx time of the visit in counseling / coordination of care. CNOV Observed: 06/17/2017 Status: COMPLETED Source: [place] 9:45 AM [facility] REPOSITORY Office Visit (AGMIL) DIA MCCULLOUGH ([id number]) 1940 F [facility] Date Time Provider Department 06/17/17 9:45 AM [...] with more than 50% of the total stoe-fc-fxgq time of the visit in counseling / coordination of care. Referring Provider: RIKA WHEELER [[id number]] Allergies As of Date: 06/17/2017 Noted Allergy [...] 06/16/2017 Status: F Source: [place] 11:54 AM [facility] [place] TYPE CODE TESTS RESULT OUT OF RANGE REFERENCE UNITS LAB L300.4150 11.7-14.9 SECONDS High PROTIME 20.9 LAB L300.4200 Normal INR 1.9 Performed By: #### L300.3900 #### [facility] [address] [place], [address] CNOV Observed: 12/13/2016 Status: COMPLETED Source: [place] 1:45 PM CLIN[facility] OTHER CAMPUS REPOSITORY Office Visit (AGGASTACC) DIA MCCULLOUGH ([id number]) 1940 F [facility] Date Time Provider Department 12/13/16 1:45 PM [...] SOURCE 06/04/2018 Drug diclofenac Upset Stomach Unknown [facility] Allergy/416 sodium/[id number](R [facility]8899[facility] 06/04/2018 Drug amoxicillin Upset Stomach Unknown [place] Allergy/416 trihydrate/[id number] [facility] [id number][facility] Rep[facility] 06/04/2018 Drug potassium Upset Stomach Unknown Annmarie Allergy/416 clavulanate/[id number] Community 054327([facility] 06/04/2018 Drug misoprostol/C244059 Upset Stomach Unknown Annmarie Allergy/416 133(RXNORM) Community 460294([facility] ED CT) Repository 06/04/2018 Drug flurbiprofen/I59054 Upset Stomach Unknown Annmarie Allergy/416 2382(RXNORM) Community 863562([facility] ED CT) Repository 06/04/2018 Drug doxycycline/O308294 Upset Stomach Unknown Annmarie Allergy/416 748(RXNORM) Community 529846([facility] ED CT) Repository 06/04/2018 Drug erythromycin Upset Stomach Unknown Annmarie Allergy/416 base/B269158280(RXN Community 116931([facility] ED CT) Repository 06/04/2018 Drug etodolac/[id number] Upset Stomach Unknown Annmarie Allergy/416 (RXNORM) Community 924444([facility] ED CT) Repository 06/04/2018 Drug rofecoxib/[id number] Upset Stomach Unknown Bessie Allergy/416 7(RXNORM) Community 723643([facility] ED [facility]) Repository 06/04/2018 Drug NSAIDS Other Unknown Bessie Allergy/416 (Non-Steroidal Community 015831(SNOM Anti-Inflamma/F[address] [facility] [place]) [address]250(RXNORM) Repository 06/04/2018 Drug Iodine and Iodide Unknown Unknown Bessie Allergy/416 Containing Community 975784(SNOM Produc/O394760355([facility] ED CT) XNORM) Repository 03/11/2017 Drug NSAIDS UNKNOWN [facility] Class/14288 (NON-STEROIDAL Other [place] 1003(SNOMED ANTI-INFLAMMATORY Repository CT) DRUG) 06/24/2011 DRUG/730042 DICLOFENAC-MISOPROS GI UPSET [facility] 003(SNOMED MARIAJOSE Other [place] CT) Repository 12/22/2010 DRUG FLURBIPROFEN GI UPSET [facility] INGREDI/419 Other [place] 050642(SNOM Repository ED CT) 08/31/2008 DRUG/095225 AMOXICILLIN-POT GI UPSET [facility] 003(SNOMED CLAVULANATE Other [place] CT) Repository 02/17/2006 DRUG GRASS POLLEN [facility] INGREDI/419 Other [place] 711193(SNOM Repository ED CT) 03/17/2005 DRUG DOXYCYCLINE GI UPSET [facility] INGREDI/419 Other [place] 597128(SNOM Repository ED CT) 03/17/2005 DRUG/079703 ERYTHROMYCIN GI UPSET [facility] 003(SNOMED Other [place] CT) Repository 03/17/2005 DRUG ETODOLAC [facility] INGREDI/419 Other [place] 823421(SNOM Repository ED CT) 03/17/2005 Environ/420 POISON LISA [facility] 809005(SNOM Other [place] ED CT) Repository 03/17/2005 DRUG ROFECOXIB GI UPSET [facility] INGREDI/419 Other [place] 234500(SNOM Repository ED CT) NG/07780810 FLURBIPROFEN [facility] 6(SNOMED [facility]) Repository NG/78511178 DICLOFENAC-MISOPROS [facility] 6(SNOMED MARIAJOSE [facility]) Repository NG/18077284 AMOXICILLIN-POT [facility] 6(SNOMED CLAVULANATE [facility]) Repository NG/59039481 DOXYCYCLINE [facility] 6(SNOMED [facility]) Repository NG/89678719 ERYTHROMYCIN [facility] 6(SNOMED [facility]) Repository NG/59300440 GRASS POLLEN [facility] 6(SNOMED [facility]) Repository NG/52431379 ETODOLAC [facility] 6(SNOMED [facility]) Repository NG/26345093 NSAIDS [facility] 6(SNOMED (NON-STEROIDAL [facility] System CT) ANTI-INFLAMMATORY Repository DRUG) NG/63650284 POISON LISA [facility] 6(SNOMED [facility]) Repository NG/08207189 ROFECOXIB [facility] 6(SNOMED [facility]) Repository ENCOUNTERS ENCOUNTERS ADMIT/DISCHARGE ACCOUNT NUMBER ADMITTING ENCOUNTER LOCATION SOURCE CLASS 06/05/2018 [id number] CORTES, Inpatient [facility] Other [place] Repository 06/05/2018 [id number] Magda KOLB Inpatient [facility] MEDICAL Repository CENTERBuildi nARoom: 5211Bed: 06/04/2018/06/04/19 [id number] Emergency [address] ding:ED Repository 05/23/2018 [id number] Ambulatory [facility] ding:MFPLAB Repository 05/19/2018 [id number] Ambulatory [facility] MEDICAL Repository WILLIAMSFIELDBuildi ng:AGWM 05/10/2018 [id number] Ambulatory [facility] ding:MFPLAB Repository 05/06/2018/05/07/20 [id number] [facility], Ambulatory [address] ding:PCURoom Repository : DUR760Wdz: 05/06/2018 [id number] Tereletsky, Ambulatory BMSBuilding: Bessie Akira [facility] Repository 05/06/2018 [id number] Tereletsky, Ambulatory BMSBuilding: Annmarie Akira [facility] Repository 05/06/2018 [id number] Ambulatory BMSBuilding: [facility] Repository 05/04/2018/05/04/20 [id number] Ambulatory BMSBuilding: Annmarie 18 [facility] Repository 04/21/2018 [id number] Ambulatory [facility] ding:MEDOUTP Repository 04/21/2018 [id number] Ambulatory [facility] MEDICAL Repository CENTERBuildi ng:AGWM 04/17/2018 [id number] Ambulatory [facility] Hospital ding:MEDOUTP Repository 04/13/2018 [id number] Ambulatory [facility] Hospital ding:MEDOUTP Repository 04/10/2018 [id number] Ambulatory [facility] Hospital ding:MEDOUTP Repository 04/07/2018 [id number] Ambulatory [facility] ding:MEDOUTP Repository 03/31/2018 [id number] Ambulatory [facility] MEDICAL Repository CENTERBuildi ng:HEOB 03/28/2018 [id number] Ambulatory [facility] ding:MFPLAB Repository 03/15/2018 [id number] Ambulatory [facility] ding:MFPLAB Repository 03/02/2018 [id number] Ambulatory [facility] ding:MTRAD Repository 02/22/2018 [id number] Ambulatory BMSBuilding: Annmarie BMS.CF.[facility] Repository 02/22/2018 [id number] Ambulatory [facility] ding:CVS Repository 02/16/2018/02/17/20 [id number] Ambulatory BMSBuilding: Bessie 18 [facility] Repository 02/15/2018/02/16/20 [id number] Ambulatory BMSBuilding: Annmarie 18 BMS.[facility] Repository 02/15/2018 [id number] Ambulatory BMSBuilding: Bessie BMS.[facility] Repository 02/14/2018 [id number] Ambulatory BMSBuilding: Bessie BMS.[facility] Repository 02/09/2018/02/10/20 [id number] VICTOR MANUEL, Ambulatory [address] Repository 02/09/2018/02/10/20 [id number] [facility], Inpatient [address] MEDICAL Repository CENTERBuildi ng:CCLERoom: POOLBed: 02 01/26/2018 [id number] Ambulatory [facility] ding:CT Repository 01/26/2018 [id number] Ambulatory [facility] ding:MFPLAB Repository 01/20/2018 [id number] Ambulatory [facility] ding:MFPLAB Repository 01/12/2018 [id number] Ambulatory [facility] ding:MFPLAB Repository 12/30/2017 [id number] Ambulatory [facility] MEDICAL Repository CENTERBuildi ng:AGWM 12/24/2017 [id number] Ambulatory [facility] ding:WC Repository 11/24/2017 [id number] Ambulatory [facility] ding:MFPLAB Repository 11/23/2017 [id number] Ambulatory [facility] ding:HHLAB Repository 11/17/2017/12/14/19 [id number] Ambulatory [address] ding:WC Repository 11/10/2017/11/11/19 [id number] [facility], Ambulatory [address] Repository 11/10/2017/11/11/19 [id number] [facility] Inpatient [address] MEDICAL Repository WILLIAMSFIELDBuildi ng:AKIRRoom: POOLBed: 11/09/2017/11/13/19 [id number] Ambulatory [address] ding:HHLAB Repository 11/03/2017/11/04/19 [id number] [facility], Ambulatory [address] Repository 11/03/2017/11/04/19 [id number] [facility] Inpatient [address] MEDICAL Repository CENTERBuildi ng:AKIRRoom: POOLBed: 10/27/2017 [id number] Ambulatory [facility] Repository 10/27/2017/10/28/19 [id number] Ambulatory [address] MEDICAL Repository CENTERBuildi ng:AKXRCT 10/27/2017 [id number] Ambulatory [facility] Repository 10/27/2017/10/28/19 [id number] VICTOR MANUEL, Ambulatory Cheng 18 [facility] Other [place] Repository 10/27/2017/10/28/19 [id number] Ambulatory [place] [address] MEDICAL Repository WILLIAMSFIELDBuild ng:AKXRCT 10/27/2017/10/28/19 [id number] VICTOR MANUEL, Inpatient [facility] 18 [facility]: POOLBed: 10/18/2017/11/01/19 [id number] Alejo Ortega Inpatient Annmarie Bessie 18 [place] Encounter [facility] ding:TCURoom Repository : PDQ96Yju: 10/08/2017/10/19/19 [id number] GALAN, Inpatient [place] [facility] Repository 10/08/2017/10/19/19 [id number] [facility], Inpatient [place] 18 [facility] Encounter [facility] MEDICAL Repository [facility] nRoom: 5108Bed: 10/08/2017/10/09/19 [id number] Emergency Bessie Annmarie [address] [place] [address] ding:ED Repository 10/08/2017 [id number] Ambulatory BMSBuilding: Bessie BMS.[facility] Repository 10/08/2017/10/09/19 [id number] Emergency Bessie Bessie[address] ding:ED Repository 10/05/2017/10/06/19 [id number] Ambulatory Annmarie Bessie [address] [place] [address] ding:PT Repository 09/21/2017/10/01/19 [id number] Alejo Ortega Inpatient Bessie Annmarie 18 [address] Encounter [facility] ding:TCURoom Repository : LSH75Eqp: 09/18/2017/09/22/19 [id number] As[place], Inpatient Annmarie Bessie 18 Ghasem Encounter [facility] ding:PCURoom Repository : BUN970Ywo: 09/18/2017 [id number] Ashelfah, Ambulatory BMSBuilding: Annmarie Ghasem BMS.[facility] Repository 09/18/2017 [id number] Ashelf[place], Ambulatory BMSBuilding: Annmarie Ghasem BMS.[facility] Repository 09/18/2017 [id number] [place], Ambulatory BMSBuilding: Bessie Ghasem BMS.[facility] Repository 09/18/2017 [id number] [place], Ambulatory BMSBuilding: Bessie Ghasem BMS.[facility] Repository 09/17/2017/09/18/19 [id number] Ambulatory [address] ding:MEDOUTP Repository Room: [facility] 09/15/2017 [id number] Ambulatory [facility] MEDICAL Repository CENTERBuildi ng:HEOB 09/05/2017 [id number] Ambulatory [facility] MEDICAL Repository CENTERBuildi ng:AGVASACC 09/04/2017/09/06/19 [id number] Emergency [address] ding:ED Repository 09/04/2017 [id number] Ambulatory [facility] ding:ED Repository 08/24/2017/08/25/19 [id number] Inpatient [address] Repository 08/24/2017/08/25/19 [id number] BALJINDER REYNA Inpatient [address] MEDICAL Repository CENTERBuildi ng:AKEDRoom: EDBed: 03 08/24/2017/08/25/19 [id number] Emergency [address] ding:ED Repository 08/03/2017 [id number] Ambulatory [facility] ding:MEDOUTP Repository 08/02/2017 [id number] Ambulatory [facility] Repository 07/15/2017 [id number] Ambulatory [facility] ding:LAB Repository 06/17/2017/06/17/19 [id number] Ambulatory [address] Repository 06/17/2017/06/17/19 [id number] Ambulatory [address] MEDICAL Repository CENTERBuildi ng:AGWM 06/16/2017/06/16/19 [id number] Ambulatory [address] ding:LAB Repository 12/13/2016 [id number] Ambulatory [facility] Repository PAYERS PAYERS ENCOUNTER GUARANTOR PAYER SUBSCRIBER SOURCE 06/05/2018 DIA A Primary DIA [facility] PEACOCKDOB: Insurance:AETNA FLORESB: Health [facility] [id number] Repository NANCY Number: DRIVEUNIT [id number] X4ROPPSWT, [place] Date: [phone]: () 06/04/2018 SUNDAR Primary DIA Mcfadden [id number] Insurance:AETNA PEACOCKDOB: [facility] Number: [id number] [id number] Repository 450[address]Nom: (330) Date:1464-50-33GI [phone] () [place], [place] [address]MM: 06/04/2018 Secondary NOT GIVENUNK Annmarie Insurance:SELF PAY [facility] Number: Effective Repository Date:2018-06-04 05/23/2018 DIA A Primary DIA Mcfadden [id number] Insurance:AETNA [facility] Number: [id number] [id number] Repository 275[address]Pkh: (330) Date:6302-01-76EY [phone] () [place]38[address]RBA[place], [place] [address]XZ: 05/23/2018 Secondary NOT GIVENUNK Bessie Insurance:SELF PAY [facility] Number: Effective Repository Date:2018-05-23 05/19/2018 DIA Mauro Primary DIA [facility] PEACOCKDOB: Insurance:AETNA FLORESB: Health System MEDICARE PPOPolicy [id number] Repository NANCY Number: DRIVEUNIT [id number] [id number], [place] Date: [phone]: () 05/10/2018 DIA A Primary DIA A Bessie [id number] Insurance:AETNA PEACOCKDOB: Community NANCY MCRPolicy Number: [id number]BD4WPVEffective Repository [address]Hnp: (330) Date:0873-71-56JZ [phone] () 4201[address]B[place], [place] [address]KZ: 05/10/2018 Secondary NOT GIVENUNK Bessie Insurance:SELF PAY [facility] Number: Effective Repository Date:2018-05-10 05/06/2018 DIA A Primary DIA A Annmarie [id number] Insurance:AETNA PEACOCKDOB: Community NANCY [address] MEDICAL GROUPPolicy Number: [id number]BD4WPVEffective Repository [address]Sbm: (954) Date:8325-03-61EP [phone] () 2384[address]J[place], [place] [address]YR: 05/06/2018 Secondary NOT GIVENUNK Bessie Insurance:SELF PAY [facility] Number: Effective Repository Date:2018-05-06 05/06/2018 DIA A Primary DIA A Bessie [id number] Insurance:AETNA PEACOCKDOB: Community NANCY [address] MEDICAL GROUPPolicy Number: [id number]BD4WPVEffective Repository [address]1156Shj: (330) Date:8516-82-33ZY [phone] () 247893ZJ[place], [place] [address]GP: 05/06/2018 Secondary NOT GIVENUNK Annmarie Insurance:SELF PAY [facility] Number: Effective Repository Date:2018-05-06 05/06/2018 DIA A Primary DIA A Annmarie [id number] Insurance:AETNA PEACOCKDOB: [facility] NANCY [address] MEDICAL GROUPPolicy Number: [id number]BD4WPVEffective Repository [address]Srh: (330) Date:4665-88-78IF [phone] (HP) [id number] [place] [address]SV: 05/06/2018 Secondary NOT GIVENUNK Annmarie Insurance:SELF PAY [facility] Number: Effective Repository Date:2018-05-06 05/06/2018 SUNDAR Primary DIA STERN Annmarie [id number] Insurance:AETNA PEACOCKDOB: Community NANCY MCRPolicy Number: [id number] [id number] Repository [address]Ydj: (330) Date:8409-96-37PQ [phone] () 138683VX [place] [address]LZ: 05/06/2018 Secondary NOT GIVENUNK Annmarie Insurance:SELF PAY Community [facility] Number: Effective Repository Date:2018-05-06 05/04/2018 DIA A Primary DIA Wade Annmarie [id number] Insurance:AETNA PEACOCKDOB: Community NANCY MCRPolicy Number: [id number]BD4WPVEffective Repository [address]Syn: (330) Date:4225-69-34JO [phone] () [id number] [place] [address]UO: 05/04/2018 Secondary NOT GIVENUNK Annmarie Insurance:SELF PAY Community [facility] Number: Effective Repository Date:2018-05-04 04/21/2018 DIA A Primary DIA Wade Annmarie [id number] Insurance:AETNA PEACOCKDOB: Community NANCY MCRPolicy Number: [id number]BD4WPVEffective Repository 47[address]Hej: (330) Date:3274-22-49II [phone] (HP) [id number] [place] [address]OP: 04/21/2018 Secondary NOT GIVENUNK Bessie Insurance:SELF PAY Community [facility] Number: Effective Repository Date:2018-04-07 04/21/2018 DIA A Primary DIA A [facility] PEACOCKDOB: Insurance[facility]NA [facility] [id number] MEDICARE PPOPolicy [id number] Repository NANCY Number: DRIVEUNIT [id number] [address] Date: [address]Fjk: () 04/17/2018 DIA A Primary DIA A Annmarie [id number] Insurance:AETNA PEACOCKDOB: [facility] Number: [id number]BD4WPVEffective Repository [address]Lob: (124) Date:3121-07-12TP [phone] () [id number] [place] [address]GN: 04/17/2018 Secondary NOT GIVENUNK Bessie Insurance:SELF PAY [facility] Number: Effective Repository Date:2018-04-07 04/13/2018 DIA A Primary DIA A Bessie [id number] Insurance:AETNA PEACOCKDOB: [facility] Number: [id number] [id number] Repository [address]Egq: (330) Date:7077-13-26QC [phone] () 329353[place] [address]UH: 04/13/2018 Secondary NOT GIVENUNK Bessie Insurance:SELF PAY [facility] Number: Effective Repository Date:2018-04-07 04/10/2018 DIA A Primary DIA A Bessie [id number] Insurance:AETNA PEACOCKDOB: [facility] NANCY [facility] Number: [id number] [id number] Repository 119[address]Chj: (330) Date:6764-36-53VU [phone] () [id number] [place] [address]VW: 04/10/2018 Secondary NOT GIVENUNK Annmarie Insurance:SELF PAY [facility] Number: Effective Repository Date:2018-04-07 04/07/2018 DIA A Primary DIA A Bessie [id number] Insurance:AETNA PEACOCKDOB: [facility] Number: [id number] [id number] Repository [address]27[address]Vrb: (330) Date:0245-09-31XD [phone] () 813[address], [place] [address]LY: 04/07/2018 Secondary NOT GIVENUNK Bessie Insurance:SELF PAY [facility] Number: Effective Repository Date:2018-04-03 03/31/2018 DIA A Primary DIA A [facility] PEACOCKDOB: Insurance:AETNA PEACOCKDOB: Health System MEDICARE PPOPolicy [id number] Number: DRIVEUNIT [id number] [address] Date: [address]Mcm: () 03/28/2018 DIA A Primary DIA A Annmarie [id number] Insurance:AETNA PEACOCKDOB: [facility] Number: [id number] [id number] Repository [address]Fqg: (330) Date:4453-07-95JE [phone] (HP) [id number] [place] [address]BG: 03/28/2018 Secondary NOT GIVENUNK Bessie Insurance:SELF PAY [facility] Number: Effective Repository Date:2018-03-28 03/15/2018 DIA A Primary DIA A Annmarie [id number] Insurance:AETNA PEACOCKDOB: [facility] Number: [id number] [id number] Repository [address]Dxa: (330) Date:6914-92-36YV [phone] (HP) 117852IIAYER, [place] [address]AO: 03/15/2018 Secondary NOT GIVENUNK Bessie Insurance:SELF PAY [facility] Number: Effective Repository Date:2018-03-15 03/02/2018 DIA A Primary DIA A Annmarie [id number] Insurance:AETNA PEACOCKDOB: Community NANCY RITTER MCRPolicy Number: [id number] [id number] Repository [address]Jmy: (330) Date:5229-67-98HY [phone] (HP) 148808WK[place], [place] [address]VA: 03/02/2018 Secondary NOT GIVENUNK Bessie Insurance:SELF PAY [facility] Number: Effective Repository Date:2018-03-02 02/22/2018 DIA A Primary DIA A Annmarie [id number] Insurance:AETNA PEACOCKDOB: Community NANCY DRVALLEY STREAM MCRPolicy Number: [id number]BD4WPVEffective Repository [address]Ouu: (330) Date:5573-95-81XN [phone] (HP) 182134MMAY[place], [place] [address]KE: 02/22/2018 Secondary NOT GIVENUNK Bessie Insurance:SELF PAY [facility] Number: Effective Repository Date:2018-02-22 02/22/2018 DIA A Primary DIA A Bessie [id number] Insurance:AETNA PEACOCKDOB: Community NANCY RITTERVALLEY STREAM MCRPolicy Number: [id number] [id number] Repository [address]Jng: (330) Date:4707-53-33TN [phone] (HP) 535876FSAYER, [place] [address]CE: 02/22/2018 Secondary NOT GIVENUNK Bessie Insurance:SELF PAY [facility] Number: Effective Repository Date:2018-02-15 02/16/2018 DIA A Primary DIA A Bessie [id number] Insurance:AETNA PEACOCKDOB: Community NANCY LEONARD [address] MEDICAL GROUPPolicy Number: [id number] [id number] Repository 226[address]Qwi: (330) Date:1913-48-07XT [phone] () 799844QOAYER, [place] [address]XP: 02/16/2018 Secondary NOT GIVENUNK Annmarie Insurance:SELF PAY [facility] Number: Effective Repository Date:2018-02-16 02/15/2018 DIA A Primary DIA A Bessie [id number] Insurance:AETNA PEACOCKDOB: [facility] NANCY LEONARD [address] MEDICAL GROUPPolicy Number: [id number] [id number] Repository [address]Fuo: (330) Date:8271-00-42ZA [phone] () 560861JEAYER, [place] [address]LQ: 02/15/2018 Secondary NOT GIVENUNK Bessie Insurance:SELF PAY [facility] Number: Effective Repository Date:2018-02-15 02/15/2018 DIA A Primary DIA A Annmarie [id number] Insurance:AETNA ELVIRACOCKDOB: [facility] NANCY LEONARD [address] MEDICAL GROUPPolicy Number: [id number] [id number] Repository [address]Div: (330) Date:4695-78-60YH [phone] () 837198XMA[place], [place] [address]LA: 02/15/2018 Secondary NOT GIVENUNK Annmarie Insurance:SELF PAY [facility] Number: Effective Repository Date:2018-02-15 02/14/2018 DIA A Primary DIA A Annmarie [id number] Insurance:AETNA PEACOCKDOB: [facility] NANCY LEONARD MCRPolicy Number: [id number] [id number] Repository [address]Bxz: (330) Date:4894-27-16EO [phone] () 577449KY [place] [address]AO: 02/14/2018 Secondary NOT GIVENUNK Bessie Insurance:SELF PAY [facility] Number: Effective Repository Date:2018-02-14 02/09/2018 DIA A Primary DIA A [facility] PEACOCKDOB: Insurance:AETNA PEACOCKDOB: Health System MEDICARE PPOPolicy [id number] Repository NANCY Number: DRIVEUNIT [id number] [address] Date: [address]Ojz: () 01/26/2018 DIA A Primary DIA A Annmarie [id number] Insurance:AETNA PEACOCKDOB: [facility] NANCY HORACIO [facility] Number: [id number] [id number] Repository 94[address]Qbb: (938) Date:6279-47-95IU [phone] () 486072CDAY[place], [place] [address]ZO: 01/26/2018 Secondary NOT GIVENUNK Nanmarie Insurance:SELF PAY [facility] Number: Effective Repository Date:2018-01-26 01/26/2018 Dia A Primary Dia A Bessie [id number] Insurance:AETNA PeacockDOB: [facility] Number: [id number] [id number] Repository [address]Ygy: (103) Date:7334-56-92VM [phone] () 953604IB[place], [place] [address]PC: 01/26/2018 Secondary NOT GIVENUNK Annmarie Insurance:SELF PAY [facility] Number: Effective Repository Date:2018-01-26 01/20/2018 Dia A Primary Dia A Bessie [id number] Insurance:AETNA PeacockDOB: Community NANCY [facility] Number: [id number] [id number] Repository [address]Pqp: (330) Date:9156-85-74QH [phone] () [id number] GI CONNER [address]JV: 01/20/2018 Secondary NOT GIVENUNK Annmarie Insurance:SELF PAY [facility] Number: Effective Repository Date:2018-01-20 01/12/2018 Dia A Primary Dia A Annmarie [id number] Insurance:AETNA PeacockDOB: [facility] Number: [id number] [id number] Repository [address]Kzl: (330) Date:9824-51-22MG [phone] () [id number] [address]DX: 01/12/2018 Secondary NOT GIVENUNK Annmarie Insurance:SELF PAY [facility] Number: Effective Repository Date:2018-01-12 12/30/2017 DIA A Primary DIA A [facility] PEACOCKDOB: Insurance:AETNA PEACOCKDOB: Health System [id number] MEDICARE PPOPolicy [id number] Number: DRIVEUNIT [id number] [address] Date: [phone]: () 12/24/2017 Dia A Primary Dia A Bessie [id number] Insurance:AETNA PeacockDOB: [facility] Number: [id number]BD4WPVEffective Repository [address]Wvx: (330) Date:1923-26-36WM [phone] () [id number] [place] [address]LK: 12/24/2017 Secondary NOT GIVENUNK Bessie Insurance:SELF PAY [facility] Number: Effective Repository Date:2017-12-14 11/24/2017 Dia A Primary Dia A Annmarie [id number] Insurance:AETNA PeacockDOB: Community [facility] Number: [id number] [id number] Repository [address]Mou: (330) Date:6659-26-98II [phone] () [place]96[address], [place] [address]KB: 11/24/2017 Secondary NOT GIVENUNK Bessie Insurance:SELF PAY [facility] Number: Effective Repository Date:2017-11-24 11/23/2017 Dia A Primary Dia A Bessie [id number] Insurance:AETNA PeacockDOB: [facility] Number: [id number] [id number] Repository [address]Izj: (330) Date:4393-97-48IA [phone] () [place]53[address], [place] [address]WY: 11/23/2017 Secondary NOT GIVENUNK Annmarie Insurance:SELF PAY [facility] Number: Effective Repository Date:2017-11-13 11/17/2017 Dia A Primary Dia A Annmarie [id number] Insurance:AETNA PeacockDOB: [facility] Number: [id number] [id number] Repository [address]Klk: (330) Date:9892-32-73IC [phone] () 7450[address], [place] [address]GG: 11/17/2017 Secondary NOT GIVENUNK Bessie Insurance:SELF PAY [facility] Number: Effective Repository Date:2017-11-17 11/10/2017 DIA A Primary DIA A [facility] PEACOCKDOB: Insurance:AETNA PEACOCKDOB: Health System [id number] MEDICARE PPOPolicy [id number] Repository NANCY Number: [id number], [place] [id number] [address]Ekl: (330) Date: [phone] () 11/09/2017 Dia A Primary Dia A Bessie [id number] Insurance:AETNA PeacockDOB: [facility] Number: [id number] Indian Medical Center7WEMILY ks [id number] Repository 15[address]Lvg: (330) Date:9072-30-66GI [phone] () [id number] [place] [address]UE: 11/09/2017 Secondary NOT GIVENUNK Annmarie Insurance:SELF PAY [facility] Number: Effective Repository Date:2017-11-09 11/03/2017 DIA A Primary DIA A [facility] PEACOCKDOB: Insurance:AETNA PEACOCKDOB: Health System MEDICARE PPOPolicy [id number] Repository [facility] Number: DRWOOSTJO[place]PH[place] [id number] [address]Tzp: (330) Date: [phone] () 10/27/2017 DIA A Primary DIA A [facility] PEACOCKDOB: Insurance:AETNA PEACOCKDOB: Health System MEDICARE PPOPolicy [id number] Repository NANCY Number: [address] [id number] U7IPEIBDX, [place] Date: [address]Hli: () 10/27/2017 DIA A Primary DIA A [facility] PEACOCKDOB: Insurance:AETNA PEACOCKDOB: Health System MEDICARE PPOPolicy [id number] Repository NANCY Number: DR[address] [id number] C9BDZXSUT, [place] Date: [address]Vsw: () 10/27/2017 DIA A Primary DIA A [facility] PEACOCKDOB: Insurance:AETNA PEACOCKDOB: Health System [id number] MEDICARE PPOPolicy [id number] Repository [facility] Number: DRWOOJAVIER [place] [id number] [address]Obl: (330) Date: [phone] () 10/18/2017 Dia A Primary Dia A Bessie [id number] Insurance:AETNA PeacockDOB: [facility] Number: [id number] Indian Medical Center7[place], [place] [id number] Repository [address]Dcc: (330) Date:5613-62-67PQ [phone] () [id number] [place] [address]GR: 10/18/2017 Secondary NOT GIVENUNK Annmarie Insurance:SELF PAY [facility] Number: Effective Repository Date:2017-10-18 10/08/2017 DIA A Primary DIA A [facility] PEACOCKDOB: Insurance:MEDICARE A PEACOCKDOB: Health System [id number] AND BPolicy Number: [id number] Repository [place] [id number] [address]UNIT Date: I3JGRJLOBMIDKIFF, [place] [address]Lbp: () 10/08/2017 Dia A Primary Dia A Annmarie [id number] Insurance:AETNA PeacockDOB: [facility] Number: [id number] [id number] Repository [address]Cuw: (330) Date:1175-08-52NH [phone] () [id number] [place] [address]XJ: 10/08/2017 Secondary NOT GIVENUNK Bessie Insurance:SELF PAY [facility] Number: Effective Repository Date:2017-10-08 10/08/2017 Dia A Primary Dia A Annmarie [id number] Insurance:AETNA PeacockDOB: Community NANCY MCRPolicy Number: [id number] [id number] Repository [address]Krx: (330) Date:9761-57-99VZ [phone] () [id number] [address]DR: 10/08/2017 Secondary NOT GIVENUNK Bessie Insurance:SELF PAY [facility] Number: Effective Repository Date:2017-10-08 10/08/2017 Dia A Primary Dia A Annmarie [id number] Insurance:AETNA PeacockDOB: Community NANCY [facility] Number: [id number] [id number] Repository [address]Kxo: 330) Date:4522-33-45KV [phone] () [id number], [place] [address]BC: 10/08/2017 Secondary NOT GIVENUNK Annmarie Insurance:SELF PAY [facility] Number: Effective Repository Date:2017-10-08 10/05/2017 Dia A Primary Dia A Annmarie [id number] Insurance:MEDICARE PeacockDOB: Community NANCY PART A [facility] [id number] Number: Repository [address]Leg: 330 [id number] [phone] () Date:2017-09-29 10/05/2017 Secondary NOT GIVENUNK Bessie Insurance:SELF PAY [facility] Number: Effective Repository Date:2017-09-29 09/21/2017 Dia A Primary Dia A Annmarie [id number] Insurance:MEDICARE PeacockDOB: Community NANCY PART A [facility] [id number] Number: Repository [address]Ntd: 330 [id number] [phone] () Date:2017-09-21 09/21/2017 Secondary NOT GIVENUNK Annmarie Insurance:SELF PAY [facility] Number: Effective Repository Date:2017-09-21 09/18/2017 Dia A Primary Dia A Annmarie [id number] Insurance:MEDICARE PeacockDOB: [facility] NANCY PART A BPolicy [id number] Number: Repository [address]Pko: ([phone] [id number] [phone] () Date:2017-09-18 09/18/2017 Secondary NOT GIVENUNK Bessie Insurance:SELF PAY [facility] Number: Effective Repository Date:2017-09-18 09/18/2017 Dia Primary Dia Bessie [id number] Insurance:AETNA PeacockDOB: [facility] Number: [id number], [place] [id number] Repository [address]26[address]Xuj: ([phone]) Date:1198-92-50WU [phone] () [id number] [place] [address]ET: 09/18/2017 Secondary NOT GIVENUNK Bessie Insurance:SELF PAY [facility] Number: Effective Repository Date:2017-09-18 09/18/2017 Dia A Primary Dia A Annmarie [id number] Insurance:AETNA PeacockDOB: [facility] Number: [id number], [place] [id number] Repository [address]Ltu: (330) Date:9086-02-35KG [phone] () [id number] [place] [address]NS: 09/18/2017 Secondary NOT GIVENUNK Annmarie Insurance:SELF PAY [facility] Number: Effective Repository Date:2017-09-18 09/18/2017 Dia A Primary Dia A Bessie [id number] Insurance:AETNA PeacockDOB: [facility] Number: [id number], [place] [id number] Repository [address]Iug: (330) Date:1275-89-98PV [phone] () 482009Y[place], [place] [address]QI: 09/18/2017 Secondary NOT GIVENUNK Annmarie Insurance:SELF PAY [facility] Number: Effective Repository Date:2017-09-18 09/18/2017 Dia A Primary Dia A Bessie [id number] Insurance:AETNA PeacockDOB: [facility] Number: [id number], [place] [id number] Repository [address]Lrv: (330) Date:7119-74-09LW [phone] (HP) 181243FIAYER, [place] [address]NZ: 09/18/2017 Secondary NOT GIVENUNK Annmarie Insurance:SELF PAY [facility] Number: Effective Repository Date:2017-09-18 09/17/2017 Dia Primary Dia Annmarie [id number] Insurance:AETNA PeacockDOB: [facility] Number: [id number], [place] [id number] Repository [address]Arx: (330) Date:8264-62-64AM [phone] () 039[address], [place] [address]WL: 09/17/2017 Secondary NOT GIVENUNK Annmarie Insurance:SELF PAY [facility] Number: Effective Repository Date:2017-09-16 09/15/2017 DIA A Primary DIA A [facility] PEACOCKDOB: Insurance:AETNA PEACOCKDOB: Health System [id number] MEDICARE OPolicy [id number] Repository [facility] Number: DRWOOST[place] [id number] [address]Ahq: (330) Date: [phone] () 09/05/2017 DIA A Primary DIA A [facility] PEACOCKDOB: Insurance:AETNA PEACOCKDOB: Health System [id number] MEDICARE PPOPolicy [id number] Repository [place] Number: DRIVE[address] [id number] [address] Date: [address]Ptl: () 09/04/2017 Dia Primary Dia Annmarie [id number] Insurance:AETNA PeacockDOB: [facility] Number: [id number], [place] [id number] Repository [address]Aaz: (330) Date:4774-31-73DY [phone] (HP) [id number] [place] [address]XN: 09/04/2017 Secondary NOT GIVENUNK Annmarie Insurance:SELF PAY [facility] Number: Effective Repository Date:2017-09-04 09/04/2017 Dia A Primary NOT GIVENUNK Bessie [id number] Insurance:SELF PAY [address] Number: Effective Repository [address]Iil: (330) Date:2017-09-04 [phone] () 08/24/2017 DIA A Primary DIA A [facility] PEACOCKDOB: Insurance:AETNA PEACOCKDOB: Health System [id number] MEDICARE PPOPolicy [id number] Number: [place], [place] [id number] [address]Fep: (330) Date: [phone] () 08/24/2017 Dia Primary Dia Annmarie [id number] Insurance:AETNA PeacockDOB: [facility] Number: [id number], [place] [id number] Repository [address]Zjh: (330) Date:7220-34-28EP [phone] (HP) [id number] [place] [address]UL: 08/24/2017 Secondary NOT GIVENUNK Annmarie Insurance:SELF PAY [facility] Number: Effective Repository Date:2017-08-24 08/03/2017 Dia Primary Dia Annmarie [id number] Insurance:AETNA PeacockDOB: [facility] Number: [id number] County General Hospitaljavierfair [place], [place] [id number] Repository [address]Zhg: (330) Date:3777-37-52TN [phone] (HP) 324724BNAYER, [place] [address]JR: 08/03/2017 Secondary NOT GIVENUNK Annmarie Insurance:SELF PAY [facility] Number: Effective Repository Date:2017-08-02 08/02/2017 Dia A Primary Dia A [facility] PeacockDOB: Insurance:AetnaPolicy PeacockDOB: System Number: Effective [id number] Repository [facility] Date: RAVI [place] [address]Rwk: (HP) 07/15/2017 Dia Primary Dia Annmarie [id number] Insurance:AETNA PeacockDOB: [facility] Number: [id number], [place] [id number] Repository [address]Rdn: (330) Date:1830-92-78JD [phone] (HP) [id number] [place] [address]KW: 07/15/2017 Secondary NOT GIVENUNK Bessie Insurance:SELF PAY [facility] Number: Effective Repository Date:2017-07-15 06/17/2017 DIA A Primary DIA A [facility] PEACOCKDOB: Insurance:AETNA PEACOCKDOB: Health System MEDICARE PPOPolmercyone [facility] [id number] Repository [facility] Number: RAVI JACKSON [id number] 79[address]Jxd: (330) Date: [phone] (HP) 06/16/2017 Dia Primary Dia Bessie [id number] Insurance:AETNA PeacockDOB: [facility] Number: [id number] Regional Medical Centeremily ks [id number] Repository 285[address]Jcz: (330) Date:1518-74-48JR [phone] (SB) [id number] [place] [address]IO: 06/16/2017 Secondary NOT GIVENUNK Annmarie Insurance:SELF PAY [facility] Number: Effective Repository Date:2017-06-16
== END 2018-06-04 23:21 | disposition short-term general hospital (02) ==
LOC: ED 18:39
PROVIDERS: Emergency Provider Emergency Medicine; Family Provider Family Medicine; PCP Family Medicine
DX: K66.8 Other specified disorders of peritoneum (principal); K63.1 Perforation of intestine (nontraumatic); K61.1 Rectal abscess; N17.9 Acute kidney failure, unspecified; I12.9 Hypertensive chronic kidney disease with stage 1 through stage 4 chronic kidney disease, or unspecified chronic kidney disease; N18.9 Chronic kidney disease, unspecified; I48.91 Unspecified atrial fibrillation; E27.1 Primary adrenocortical insufficiency; Z79.01 Long term (current) use of anticoagulants; Z79.52 Long term (current) use of systemic steroids; Z79.899 Other long term (current) drug therapy; Z86.19 Personal history of other infectious and parasitic diseases; Z86.718 Personal history of other venous thrombosis and embolism; Z86.711 Personal history of pulmonary embolism
CPT/HCPCS: 71045; 74176; 80048; 81001; 84484; 85025; 87040; 93005; 96361; 96365; 96375; 99285; J7030; A4216; J2405

== ENCOUNTER 2018-06-12 20:05 | Inpatient (IN) | payer MEDICARE, SELFPAY ==
[2018-06-04 18:07] VITALS: BMI 29.7
[2018-06-12 20:13] VITALS: BMI 31.1
--- NOTE | 2018-06-12 21:15 | PCM.HP.STD ---
Problem List (1) Intra-abdominal abscess Status: Acute (2) Diverticulitis of sigmoid colon Status: Acute (3) Pneumoperitoneum Status: Acute (4) Chronic kidney disease Status: Chronic (5) Asthma Status: Chronic (6) Hypertension Status: Chronic (7) Venous insufficiency Status: Chronic (8) Hematoma of left lower extremity Status: Chronic (9) Clostridium difficile colitis Status: Chronic (10) Hyperlipidemia Status: Chronic Qualifiers: (11) Bilateral pulmonary embolism Status: Chronic (12) DVT (deep venous thrombosis) Status: Chronic (13) Addisons disease Status: Chronic History of Present Illness Date of Admission: 06/12/18 Chief Complaint: Here for rehabilitation, strengthening, prior to discharge home alone. The patient is a 77 year old Female with below past medical history whom in September 2017 was hospitalized for treatment of intraabdominal abscess, including drainage, antibiotics. 06/05/2018 Patient presented to [place] [facility] complaining of diarrhea for past week. CT abdomen/pelvis showed rectal perforation with pneumoperitoneum. She was transferred to [facility] for surgical evaluation. Patient noted to be in atrial fibrillation with RVR, Cardizem given, converted to normal sinus rhythm. She had pain in the left buttock. She was started on IV Zosyn. Cardiology consulted for atrial fibrillation. Infectious Disease consulted for antibiotic recommendations with patient recently on Cipro, Vancomycin for C. diff. Hospitalist service consulted for management of steroids, chronic kidney disease. Steroids increased to Hydrocortisone 50MG IV Q8H for stress steroids. General Surgery monitored patient, but no surgery was done. 06/12/2018 Admit to TCU with debility, here for rehabilitation, strengthening, prior to discharge home alone. Past Medical History Past Medical History (Chronic Problems): Chronic Problems (Last Reviewed 05/04/18 @ 12:51 by Desi Garcia) Chronic kidney disease (Chronic) Asthma (Chronic) Hypertension (Chronic) Venous insufficiency (Chronic) Hematoma of left lower extremity (Chronic) Clostridium difficile colitis (Chronic) Non-rheumatic aortic stenosis (Chronic) Hypertensive nephropathy (Chronic) Hyperlipidemia (Chronic) Atherosclerosis of coronary artery of [place] heart without angina pectoris (Chronic) Bilateral pulmonary embolism (Chronic) DVT (deep venous thrombosis) (Chronic) Stage III chronic kidney disease (Chronic) Addisons disease (Chronic) Medical History: Medical History (Last Reviewed 05/04/18 @ 12:51 by Desi Garcia) Non-rheumatic aortic stenosis (Chronic) I35.0 Hypertensive nephropathy (Chronic) I12.9 Hyperlipidemia (Chronic) E78.5 Atherosclerosis of coronary artery of [place] heart without angina pectoris (Chronic) I25.10 Bilateral pulmonary embolism (Chronic) I26.99 DVT (deep venous thrombosis) (Chronic) I82.409 Stage III chronic kidney disease (Chronic) N18.3 Addisons disease (Chronic) E27.1 Hematoma of left lower extremity S80.12XA Allergic rhinitis J30.9 Anxiety F41.9 Chronic anemia D64.9 Chronic back pain M54.9, G89.29 GERD (gastroesophageal reflux disease) K21.9 Gout M10.9 Hypothyroidism E03.9 Obesity E66.9 Osteoarthritis M19.90 Polymyalgia rheumatica M35.3 GI bleed K92.2 Intra-abdominal abscess K65.1 Perforated bowel K63.1 Allergies Iodine and Iodide Containing Produc Allergy (Verified 06/04/18 18:17) Unknown amoxicillin trihydrate [From Augmentin] Adverse Reaction (Verified 06/04/18 18:17) Upset Stomach diclofenac sodium [From Arthrotec] Adverse Reaction (Verified 06/04/18 18:17) Upset Stomach doxycycline Adverse Reaction (Verified 06/04/18 18:17) Upset Stomach erythromycin base Adverse Reaction (Verified 06/04/18 18:17) Upset Stomach etodolac [From Lodine] Adverse Reaction (Verified 06/04/18 18:17) Upset Stomach flurbiprofen [From Ansaid] Adverse Reaction (Verified 06/04/18 18:17) Upset Stomach misoprostol [From Arthrotec] Adverse Reaction (Verified 06/04/18 18:17) Upset Stomach NSAIDS (Non-Steroidal Anti-Inflamma Adverse Reaction (Verified 06/04/18 18:17) Other potassium clavulanate [From Augmentin] Adverse Reaction (Verified 06/04/18 18:17) Upset Stomach rofecoxib [From Vioxx] Adverse Reaction (Verified 06/04/18 18:17) Upset Stomach Home Medications: Ambulatory Orders Medication Instructions Recorded B12/Levomefolate Calcium/B-6 1 ea PO DAILY 04/07/18 [Folbic Rf Tablet] Omeprazole [Prilosec] 40 mg PO DAILY 04/07/18 Ceftriaxone [Rocephin] 1 gm IV Q24 06/12/18 Clotrimazole 10 mg PO 5X/DAY 06/12/18 Menthol/Lanolin/Calamine/Znox 1 applic TOPICAL BID 06/12/18 [Calmoseptine Ointment] Metoprolol Tartrate [Lopressor 25 mg PO BID 06/12/18 (beta ab)] Metronidazole/Sodium Chloride 100 ml IV Q8H 06/12/18 [Metronidazole 500 mg/100 ml] Ondansetron [Ondansetron Odt] 4 mg PO Q6H PRN PRN 06/12/18 Polyethylene Glycol 3350 [Miralax] 17 gm PO DAILY 06/12/18 Prednisone 2.5 mg PO DAILY@1700 06/12/18 Prednisone 5 mg PO BID 06/12/18 Surgical History: Surgical History (Last Reviewed 05/06/18 @ 17:07 by KATHY Beltran) History of back surgery Z98.890 History of cataract surgery Z98.49 History of repair of hiatal hernia Z98.890, Z87.19 History of right hip replacement Z96.641 Surgical History: cataract, herniorrhaphy, total hip arthroplasty - Right partial, Right total., total knee arthroplasty, - - L3-L4 laminectomy, fusion. 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 Lives: Alone Smoking Status: Never smoker Tobacco Use: Non-smoker Alcohol: None Drugs: None - *Family History Maternal Family History: Family History (Last Reviewed 05/06/18 @ 17:08 by KATHY Beltran) Father Heart disease Mother CVA (cerebral vascular accident) Other CAD (coronary artery disease) Myocardial infarction History Items: No pertinent history Paternal Family History: Family History (Last Reviewed 05/06/18 @ 17:08 by KATHY Beltran) Father Heart disease Mother CVA (cerebral vascular accident) Other CAD (coronary artery disease) Myocardial infarction History Items: No pertinent history Review of Systems Constitutional: Denies: Chills, Fever, Weight Change HEENT: Denies: Head Aches, Sinus Congestion, Sinus Drainage Cardiovascular: Denies: Chest Pain, Palpitations Respiratory: Denies: Cough, Shortness of breath at rest, Sputum production Gastrointestinal: Denies: Abdominal Pain, Nausea, Vomiting Genitourinary: Denies: Dysuria Musculoskeletal: Denies: Joint Pain, Joint Tenderness Skin: Denies: Rash, Wounds Neurological: Denies: Numbness, Tingling, Focal weakness Psychiatric: Denies: Anxiety, Depression, Homicidal Ideations, Suicidal Ideations Hematologic/ Lymphatic: Denies: Easy Bruising, Easy Bleeding VTE Information - Inpt Only VTE Present on Admission: No VTE Mechan Device Prophylaxis: Knee High EMILIANO Hose VTE Pharm Prophylaxis ordered?: Yes Patient Problems: Active and Suspected Problems (Last Reviewed 05/04/18 @ 12:51 by Desi Garcia) Intra-abdominal abscess (Acute) Diverticulitis of sigmoid colon (Acute) Pneumoperitoneum (Acute) - Physical Exam General: Alert, Oriented x3, Cooperative HEENT: Atraumatic, PERRLA, EOMI, Normocephalic Neck: Supple, No JVD, Negative Carotid Bruits Lungs: Clear to auscultation, Normal air movement Cardiovascular: Regular rate, No murmurs Abdomen: Bowel Sounds Present, Soft, Non Tender Extremities: No edema, Capillary Refill Less than 3 Seconds Skin: No rashes, No breakdown Musculoskeletal: No Tenderness to Palpation of Joints or Extremities Neurological: Cranial nerves II-XII grossly intact Psych/Mental Status: Normal Affect, Appropriate Weight: 72.263 kg Body Mass Index (BMI) 31.1 Assessment/Plan All Active Problems (Last Reviewed 05/04/18 @ 12:51 by Desi Garcia) Intra-abdominal abscess (Acute) Diverticulitis of sigmoid colon (Acute) Pneumoperitoneum (Acute) Bronchitis (Acute) 77 year old female with below past medical history hospitalized for pneumoperitoneum secondary to rectal perforation from sigmoid diverticulitis, transferred to [facility] for surgical evaluation, no surgery performed, treated with intravenous antibiotics, admitted to TCU with debility, here for rehabilitation, strengthening, prior to discharge home alone. Debility - PT/OT. Pain - [place] 5/325MG 1 tablet Q6H PRN pain. Bowel - Miralax 17GM daily, Dulcolax 10MG PO daily PRN. Pneumonia vaccination - Administer Prevnar 13 and/or Pneumovax 23 as necessary. DVT prophylaxis - Hold, patient having bleeding problems. Diverticulitis of sigmoid colon with perforation - Rocephin 1GM IV Q24H, Flagyl 500MG IV Q8H thru 07/04/2018. Thrush - Mycelex 10ML 5x/day thru 06/21/2018. Skin irritation - Calmoseptine BID bilateral buttocks. Hypertension - Metoprolol 25MG BID. Nausea - Zofran 4MG Q6H PRN. GERD - Pantoprazole 40MG daily. Rich's Disease - Prednisone 10MG TID. Clostridium difficile colitis - Vancomycin 125MG PO BID thru 06/23/2018.
--- NOTE | 2018-06-12 21:25 | HP.PCM_ITS ---
Problem List (1) Intra-abdominal abscess Status: Acute (2) Diverticulitis of sigmoid colon Status: Acute (3) Pneumoperitoneum Status: Acute (4) Chronic kidney disease Status: Chronic (5) Asthma Status: Chronic (6) Hypertension Status: Chronic (7) Venous insufficiency Status: Chronic (8) Hematoma of left lower extremity Status: Chronic (9) Clostridium difficile colitis Status: Chronic (10) Hyperlipidemia Status: Chronic Qualifiers: (11) Bilateral pulmonary embolism Status: Chronic (12) DVT (deep venous thrombosis) Status: Chronic (13) Addisons disease Status: Chronic History of Present Illness Date of Admission: 06/12/18 Chief Complaint: Here for rehabilitation, strengthening, prior to discharge home alone. The patient is a 77 year old Female with below past medical history whom in September 2017 was hospitalized for treatment of intraabdominal abscess, including drainage, antibiotics. 06/05/2018 Patient presented to [place] [facility] complaining of diarrhea for past week. CT abdomen/pelvis showed rectal perforation with pneumoperitoneum. She was transferred to [facility] for surgical evaluation. Patient noted to be in atrial fibrillation with RVR, Cardizem given, converted to normal sinus rhythm. She had pain in the left buttock. She was started on IV Zosyn. Cardiology consulted for atrial fibrillation. Infectious Disease consulted for antibiotic recommendations with patient recently on Cipro, Vancomycin for C. diff. Hospitalist service consulted for management of steroids, chronic kidney disease. Steroids increased to Hydrocortisone 50MG IV Q8H for stress steroids. General Surgery monitored patient, but no surgery was done. 06/12/2018 Admit to TCU with debility, here for rehabilitation, strengthening, prior to discharge home alone. Past Medical History Past Medical History (Chronic Problems): Chronic Problems (Last Reviewed 05/04/18 @ 12:51 by Desi Garcia) Chronic kidney disease (Chronic) Asthma (Chronic) Hypertension (Chronic) Venous insufficiency (Chronic) Hematoma of left lower extremity (Chronic) Clostridium difficile colitis (Chronic) Non-rheumatic aortic stenosis (Chronic) Hypertensive nephropathy (Chronic) Hyperlipidemia (Chronic) Atherosclerosis of coronary artery of [place] heart without angina pectoris (Chronic) Bilateral pulmonary embolism (Chronic) DVT (deep venous thrombosis) (Chronic) Stage III chronic kidney disease (Chronic) Addisons disease (Chronic) Medical History: Medical History (Last Reviewed 05/04/18 @ 12:51 by Desi Garcia) Non-rheumatic aortic stenosis (Chronic) I35.0 Hypertensive nephropathy (Chronic) I12.9 Hyperlipidemia (Chronic) E78.5 Atherosclerosis of coronary artery of [place] heart without angina pectoris (Chronic) I25.10 Bilateral pulmonary embolism (Chronic) I26.99 DVT (deep venous thrombosis) (Chronic) I82.409 Stage III chronic kidney disease (Chronic) N18.3 Addisons disease (Chronic) E27.1 Hematoma of left lower extremity S80.12XA Allergic rhinitis J30.9 Anxiety F41.9 Chronic anemia D64.9 Chronic back pain M54.9, G89.29 GERD (gastroesophageal reflux disease) K21.9 Gout M10.9 Hypothyroidism E03.9 Obesity E66.9 Osteoarthritis M19.90 Polymyalgia rheumatica M35.3 GI bleed K92.2 Intra-abdominal abscess K65.1 Perforated bowel K63.1 Allergies Iodine and Iodide Containing Produc Allergy (Verified 06/04/18 18:17) Unknown amoxicillin trihydrate [From Augmentin] Adverse Reaction (Verified 06/04/18 18:17) Upset Stomach diclofenac sodium [From Arthrotec] Adverse Reaction (Verified 06/04/18 18:17) Upset Stomach doxycycline Adverse Reaction (Verified 06/04/18 18:17) Upset Stomach erythromycin base Adverse Reaction (Verified 06/04/18 18:17) Upset Stomach etodolac [From Lodine] Adverse Reaction (Verified 06/04/18 18:17) Upset Stomach flurbiprofen [From Ansaid] Adverse Reaction (Verified 06/04/18 18:17) Upset Stomach misoprostol [From Arthrotec] Adverse Reaction (Verified 06/04/18 18:17) Upset Stomach NSAIDS (Non-Steroidal Anti-Inflamma Adverse Reaction (Verified 06/04/18 18:17) Other potassium clavulanate [From Augmentin] Adverse Reaction (Verified 06/04/18 18:17) Upset Stomach rofecoxib [From Vioxx] Adverse Reaction (Verified 06/04/18 18:17) Upset Stomach Home Medications: Ambulatory Orders Medication Instructions Recorded B12/Levomefolate Calcium/B-6 1 ea PO DAILY 04/07/18 [Folbic Rf Tablet] Omeprazole [Prilosec] 40 mg PO DAILY 04/07/18 Ceftriaxone [Rocephin] 1 gm IV Q24 06/12/18 Clotrimazole 10 mg PO 5X/DAY 06/12/18 Menthol/Lanolin/Calamine/Znox 1 applic TOPICAL BID 06/12/18 [Calmoseptine Ointment] Metoprolol Tartrate [Lopressor 25 mg PO BID 06/12/18 (beta ab)] Metronidazole/Sodium Chloride 100 ml IV Q8H 06/12/18 [Metronidazole 500 mg/100 ml] Ondansetron [Ondansetron Odt] 4 mg PO Q6H PRN PRN 06/12/18 Polyethylene Glycol 3350 [Miralax] 17 gm PO DAILY 06/12/18 Prednisone 2.5 mg PO DAILY@1700 06/12/18 Prednisone 5 mg PO BID 06/12/18 Surgical History: Surgical History (Last Reviewed 05/06/18 @ 17:07 by KATHY Beltran) History of back surgery Z98.890 History of cataract surgery Z98.49 History of repair of hiatal hernia Z98.890, Z87.19 History of right hip replacement Z96.641 Surgical History: cataract, herniorrhaphy, total hip arthroplasty - Right partial, Right total., total knee arthroplasty, - - L3-L4 laminectomy, fusion. 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 Smoking Status: Never smoker Tobacco Use: Non-smoker Alcohol: None Drugs: None - *Family History Maternal Family History: Family History (Last Reviewed 05/06/18 @ 17:08 by KATHY Beltran) Father Heart disease Mother CVA (cerebral vascular accident) Other CAD (coronary artery disease) Myocardial infarction History Items: No pertinent history Paternal Family History: Family History (Last Reviewed 05/06/18 @ 17:08 by KATHY Beltran) Father Heart disease Mother CVA (cerebral vascular accident) Other CAD (coronary artery disease) Myocardial infarction History Items: No pertinent history Review of Systems Constitutional: Denies: Chills, Fever, Weight Change HEENT: Denies: Head Aches, Sinus Congestion, Sinus Drainage Cardiovascular: Denies: Chest Pain, Palpitations Respiratory: Denies: Cough, Shortness of breath at rest, Sputum production Gastrointestinal: Denies: Abdominal Pain, Nausea, Vomiting Genitourinary: Denies: Dysuria Musculoskeletal: Denies: Joint Pain, Joint Tenderness Skin: Denies: Rash, Wounds Neurological: Denies: Numbness, Tingling, Focal weakness Psychiatric: Denies: Anxiety, Depression, Homicidal Ideations, Suicidal Ideations Hematologic/ Lymphatic: Denies: Easy Bruising, Easy Bleeding VTE Information - Inpt Only VTE Present on Admission: No VTE Mechan Device Prophylaxis: Knee High EMILIANO Hose VTE Pharm Prophylaxis ordered?: Yes Patient Problems: Active and Suspected Problems (Last Reviewed 05/04/18 @ 12:51 by Desi Garcia) Intra-abdominal abscess (Acute) Diverticulitis of sigmoid colon (Acute) Pneumoperitoneum (Acute) - Physical Exam General: Alert, Oriented x3, Cooperative HEENT: Atraumatic, PERRLA, EOMI, Normocephalic Neck: Supple, No JVD, Negative Carotid Bruits Lungs: Clear to auscultation, Normal air movement Cardiovascular: Regular rate, No murmurs Abdomen: Bowel Sounds Present, Soft, Non Tender Extremities: No edema, Capillary Refill Less than 3 Seconds Skin: No rashes, No breakdown Musculoskeletal: No Tenderness to Palpation of Joints or Extremities Neurological: Cranial nerves II-XII grossly intact Psych/Mental Status: Normal Affect, Appropriate Weight: 72.263 kg Body Mass Index (BMI) 31.1 Assessment/Plan All Active Problems (Last Reviewed 05/04/18 @ 12:51 by Desi Garcia) Intra-abdominal abscess (Acute) Diverticulitis of sigmoid colon (Acute) Pneumoperitoneum (Acute) Bronchitis (Acute) 77 year old female with below past medical history hospitalized for pneumoperitoneum secondary to rectal perforation from sigmoid diverticulitis, transferred to [facility] for surgical evaluation, no surgery performed, treated with intravenous antibiotics, admitted to TCU with debility, here for rehabilitation, strengthening, prior to discharge home alone. * Debility - PT/OT. * Pain - [place] 5/325MG 1 tablet Q6H PRN pain. * Bowel - Miralax 17GM daily, Dulcolax 10MG PO daily PRN. * Pneumonia vaccination - Administer Prevnar 13 and/or Pneumovax 23 as necessary. * DVT prophylaxis - Hold, patient having bleeding problems. * Diverticulitis of sigmoid colon with perforation - Rocephin 1GM IV Q24H, F lagyl 500MG IV Q8H thru 07/04/2018. * Thrush - Mycelex 10ML 5x/day thru 06/21/2018. * Skin irritation - Calmoseptine BID bilateral buttocks. * Hypertension - Metoprolol 25MG BID. * Nausea - Zofran 4MG Q6H PRN. * GERD - Pantoprazole 40MG daily. * Campbell's Disease - Prednisone 10MG TID. * Clostridium difficile colitis - Vancomycin 125MG PO BID thru 06/23/2018.
[2018-06-12] MEDS: Clotrimazole 10 MG Troche MUCOUS MEM (21:41)
[2018-06-12 22:00] VITALS: BP 156/81
[2018-06-12 22:35] VITALS: PULSE 94; O2SAT 99
--- NOTE | 2018-06-12 23:18 | NURSING ---
Pt arrived from [facility] at 1999 by wheelchair.
--- NOTE | 2018-06-12 23:33 | NURSING ---
Pt requesting something to help with her generalized back pain and pain under her Lt breast where she rolled onto a call light at previous hospital. Pt requesting to have [place]. Dr. Ortega updated. New orders entered.
[2018-06-12] MEDS: predniSONE 10 MG Tablet PO (23:45)
[2018-06-13] MEDS: HYDROcodone Bitartrate/Apap 5/325 Tablet PO ×3 (00:21→17:09)
[2018-06-13] MEDS: Menthol/Lanolin/Calamine/Znox 113 GM Tube 1 APPLIC TOPICAL ×2 (05:11→17:11)
[2018-06-13] MEDS: Pantoprazole Sodium 40 MG Tablet PO (05:12)
[2018-06-13] MEDS: Clotrimazole 10 MG Troche MUCOUS MEM ×5 (05:13→21:52)
[2018-06-13] MEDS: Nystatin Powder 15gm Bottle 1 APPLIC TOPICAL (05:29)
[2018-06-13 05:37] LABS: Absolute Lymphocyte Count 0.53 X10^3/ul (0.83-4.51); Absolute Neutrophil Count 12.3 X10^3/uL (2.0-7.7); Basophil# 0.01 X10^3/uL; Basophil% 0.1 % (0-1); Hematocrit 28.4 % (37-47); Hemoglobin 8.7 g/dl (12.0-15.0); Lymphocyte # 0.53 X10^3/ul (4.0); Lymphocyte % 4.1 % (19-41); Mean Corp Hgb Conc 30.6 g/gl (32-36); Mean Corpuscular Hgb 31.3 pg (27.0-32.0); Mean Corpuscular Volume 102.2 fL (81-99); Mean Platelet Vol. 9.5 fl (6.2-12.0); Monocyte# 0.18 X10^3/uL; Monocyte% 1.4 % (0-10); Neutrophil # 12.26 X10^3/uL (2.7-7.7); Neutrophil % 93.7 % (47-70); Platelet Count 254 K/mm3 (150-450); RBC Distribution Width CV 20.4 % (11.6-14.6); RBC Distribution Width SD 72.5 fl (35.1-43.9); Red Blood Count 2.78 M/mm3 (4.2-5.4); White Blood Count 13.1 K/mm3 (4.4-11.0)
[2018-06-13 05:38] LABS: POSITIVE DIFFERENTIAL YES
[2018-06-13 05:39] LABS: Differential Indicated SCAN CRITERIA MET; POSITIVE COUNT NO; POSITIVE MORPHOLOGY YES
[2018-06-13 05:48] LABS: Anion Gap 9 (5-15); BUN 12 mg/dL (7-18); BUN/Creat Ratio 10.1 RATIO (10-20); Calcium,Total 7.8 mg/dL (8.5-10.1); Chloride 106 mmol/L (98-107); Creatinine, Serum 1.19 mg/dL (0.55-1.02); EST Glomerular Filtration Rate 47 mL/min (>60); Est Glom Filt Rate - Afr Amer 56 mL/min (>60); Estimated Creatinine Clearance 27.99 ml/min; Glucose 124 mg/dL (74-106); Potassium 3.7 mmol/L (3.5-5.1); Sodium Level 142 mmol/L (136-145)
[2018-06-13 06:48] LABS: Anisocytosis 1+; Differential Comment SCAN; Hypochromasia 1+; Microcytosis 1+; Polychromasia 1+
[2018-06-13] MEDS: predniSONE 10 MG Tablet PO ×3 (08:11→17:05)
--- NOTE | 2018-06-13 09:49 | NURSING ---
NO to D/C lovenox.
[2018-06-13 10:39] VITALS: BP 147/81; PULSE 98
[2018-06-13] MEDS: Metoprolol Tartrate 25 MG Tablet PO ×2 (10:39→21:52)
[2018-06-13] MEDS: Tuberculin,Purif.prot.deriv. 50 TU/ML Vial 5 ML ID (10:42)
--- NOTE | 2018-06-13 11:40 | CASEMGMT ---
Reviewed and approved FOUNDER CEO & PRESIDENT student attached documentation. NURIA Connell
[2018-06-13] MEDS: Vitamin B Comp W-C Capsule 1 CAP PO (11:54)
--- NOTE | 2018-06-13 12:06 | NURSING ---
Per Micheal in infection control, patient does not need to be in precautions. Tested negative for cdiff on 06/05/18.
[2018-06-13] MEDS: 0.9% NaCl PICC Flush IV (13:24)
[2018-06-13] MEDS: Ceftriaxone 1 GM/50 ML BAG IV (13:24)
[2018-06-13 15:24] VITALS: BP 139/90; PULSE 115; RESP 18; TEMP 36; O2SAT 96
--- NOTE | 2018-06-13 15:33 | NURSING ---
wound photo: Right hand
--- NOTE | 2018-06-13 15:35 | NURSING ---
wound photo: Right AC
--- NOTE | 2018-06-13 15:36 | NURSING ---
wound photo: Right post calf
[2018-06-13] MEDS: 0.9% NaCl IVPB Med Flush (250 mL) 15 ML IV (21:41)
[2018-06-13 21:52] VITALS: BP 176/81; PULSE 103
[2018-06-14] VITALS (7 sets, daily range): BP systolic 129–150; BP diastolic 77–88; PULSE 115–135; RESP 18–20; TEMP 36.4; O2SAT 94–99
[2018-06-14] MEDS: Ondansetron ODT 4 MG Tablet PO (04:58)
[2018-06-14] MEDS: Menthol/Lanolin/Calamine/Znox 113 GM Tube 1 APPLIC TOPICAL ×2 (05:02→17:25)
[2018-06-14] MEDS: Nystatin Powder 15gm Bottle 1 APPLIC TOPICAL ×2 (05:02→22:08)
[2018-06-14] MEDS: Pantoprazole Sodium 40 MG Tablet PO (05:04)
[2018-06-14] MEDS: Clotrimazole 10 MG Troche MUCOUS MEM ×5 (05:08→22:08)
[2018-06-14] MEDS: predniSONE 10 MG Tablet PO ×3 (08:30→17:55)
[2018-06-14] MEDS: HYDROcodone Bitartrate/Apap 5/325 Tablet PO ×2 (08:30→15:30)
[2018-06-14] MEDS: Vitamin B Comp W-C Capsule 1 CAP PO (08:30)
--- NOTE | 2018-06-14 09:50 | RAD_ITS ---
STUDY: X-RAY CHEST REASON FOR EXAM: Female, 77 years old. Shortness of breath. TECHNIQUE: AP and lateral views of the chest. COMPARISON: Comparison is made with prior study dated December 02, 2018. FINDINGS: A left-sided PICC line catheter is seen with the tip at the junction of the superior vena cava and right atrium. Mild elevation of the right hemidiaphragm. No acute infiltrate is seen. There is no demonstrated pleural abnormality. Normal size heart. Normal mediastinum and kina. Normal visualized pulmonary arteries. There is atherosclerotic tortuosity of the aortic arch and descending thoracic aorta. There are diffuse degenerative changes of the visualized thoracic spine. Approximately 50% loss of height of the T12 vertebrae. Prior fusion of the lumbar spine. Normal visualized ribs, clavicles, and shoulders. There is no demonstrated abnormality of the visualized soft tissue structures of the upper abdomen. RAD/Chest PA and Lateral IMPRESSION: No acute abnormality is seen. Electronically Signed: Adin Lara MD at 12:50 EST , Service support ,
[2018-06-14] MEDS: Metoprolol Tartrate 25 MG Tablet PO ×2 (10:30→17:55)
--- NOTE | 2018-06-14 10:34 | EKG12_ITS ---
Test Reason : TACHYCARDIA Blood Pressure : / mmHG Vent. Rate : 116 BPM Atrial Rate : 116 BPM P-R Int : 130 ms QRS Dur : 078 ms QT Int : 326 ms P-R-T Axes : -05 -27 004 degrees QTc Int : 453 ms Sinus tachycardia Otherwise normal ECG Confirmed by CLAIRE MIN, JAYESH ([id number]), desk editor BALJINDER DAMON ([id number] on 06/16/2018 3:49:02 PM Referred By: MIGUELANGEL Confirmed By:JAYESH RANGEL MD
--- NOTE | 2018-06-14 11:18 | NURSING ---
Addendum entered by Kelsi Mix 06/14/18 23:09: Dr Skelton reviewed CTA results remotely and entered orders. Original Note: Addendum entered by Theodora Hawk 06/14/18 18:43: ddimer elevated, new order for CTA chest, doppler BLE's and restart Eliquis. Original Note: Addendum entered by Theodora Hawk 06/14/18 13:00: JANET Thompson reported pt HR elevated 120-130's, metoprolol given earlier. EKG showed Sinus tach. regular. Dr Skelton updated, new order for 1 liter bolus NS. pt states she is hungry but has know energy to eat it. Chest xray negative, dr skelton aware. Original Note: pt c/o SOB, expiratory wheezes noted per loom checker report. Dr Skelton updated this AM, new orders chest xray and duonebs.
[2018-06-14] MEDS: 0.9% Normal Saline 1,000 ML 999 ML IV (13:00)
[2018-06-14] MEDS: 0.9% NaCl IVPB Med Flush (250 mL) 15 ML IV ×2 (14:15→22:06)
[2018-06-14] MEDS: Ceftriaxone 1 GM/50 ML BAG IV (15:31)
--- NOTE | 2018-06-14 16:12 | PCM.PN.RX ---
<MeaghanLeighton carrillo D - Last Filed: 06/14/18 16:12> Progress Note - Pharmacy Subjective: TCU Admission Objective: Allergies Iodine and Iodide Containing Produc Allergy (Verified 06/04/18 18:17) Unknown amoxicillin trihydrate [From Augmentin] Adverse Reaction (Verified 06/04/18 18:17) Upset Stomach diclofenac sodium [From Arthrotec] Adverse Reaction (Verified 06/04/18 18:17) Upset Stomach doxycycline Adverse Reaction (Verified 06/04/18 18:17) Upset Stomach erythromycin base Adverse Reaction (Verified 06/04/18 18:17) Upset Stomach etodolac [From Lodine] Adverse Reaction (Verified 06/04/18 18:17) Upset Stomach flurbiprofen [From Ansaid] Adverse Reaction (Verified 06/04/18 18:17) Upset Stomach misoprostol [From Arthrotec] Adverse Reaction (Verified 06/04/18 18:17) Upset Stomach NSAIDS (Non-Steroidal Anti-Inflamma Adverse Reaction (Verified 06/04/18 18:17) Other potassium clavulanate [From Augmentin] Adverse Reaction (Verified 06/04/18 18:17) Upset Stomach rofecoxib [From Vioxx] Adverse Reaction (Verified 06/04/18 18:17) Upset Stomach Current Medications Generic Name Dose Route Start Last Admin Trade Name Freq PRN Reason Stop Dose Admin Hydrocodone Bitart/Acetaminophen 1 tablet 06/12/18 23:33 06/14/18 15:30 [place] 5mg-325mg PO 1 tablet Q6H PRN PRN Administration SEVERE PAIN (6-10/10) Albuterol/Ipratropium 3 ml 06/14/18 08:18 Duoneb INHALATION Q6HWA.RT PRN WHEEZING Bisacodyl 10 mg 06/12/18 21:41 Dulcolax PO DAILY PRN Constipation Calamine/Phenol 1 applic 06/13/18 06:00 06/14/18 05:02 Calmoseptine Ointment TOPICAL 1 applicatio BID DINO Administration Protocol Clotrimazole 10 mg 06/12/18 22:00 06/14/18 13:41 Mycelex MUCOUS MEM 06/21/18 23:59 10 mg 5X/DAY DINO Administration Heparin Sodium (Beef Lung) 50 units 06/12/18 21:30 IV UD PRN HEPARIN FLUSH Ceftriaxone Sodium 1 gm in 50 mls @ 100 mls/hr 06/13/18 14:00 06/14/18 15:31 Rocephin IV 07/04/18 14:01 100 mls/hr Q24H DINO Administration Metronidazole 500 mg in 100 mls @ 100 mls/hr 06/12/18 22:00 06/14/18 14:14 Flagyl IV 07/04/18 23:59 100 mls/hr Q8 DINO Administration Sodium Chloride 250 mls @ 15 mls/hr 06/12/18 21:30 06/14/18 14:15 IV 15 mls/hr .[id number] PRN Administration SALINE FLUSH Menthol 1 applic 06/13/18 11:25 06/14/18 15:34 Bengay Vanishing Scent TOPICAL 1 applic TID PRN PRN Administration athritis Metoprolol Tartrate 25 mg 06/14/18 18:00 Lopressor (Beta Janny) PO 0600,1800 DINO Multivitamins 1 capsule 06/13/18 12:00 06/14/18 08:30 Allbee W/C Caplet, Thera B Comp/C PO 1 capsule DAILYCM DINO Administration Nystatin 1 applic 06/13/18 06:00 06/14/18 05:02 Mycostatin Powder TOPICAL 1 applicatio 0600,2200 DINO Administration Protocol Ondansetron HCl 4 mg 06/12/18 20:41 06/14/18 04:58 Zofran Odt PO 4 mg Q6H PRN PRN Administration NAUSEA Pantoprazole Sodium 40 mg 06/13/18 06:00 06/14/18 05:04 Protonix PO 40 mg DAILY DINO Administration Polyethylene Glycol 17 gm 06/13/18 06:00 06/14/18 05:04 Miralax PO Not Given DAILY DINO Prednisone 10 mg 06/13/18 07:45 06/14/18 12:01 PO 10 mg TIDCM DINO Administration Sodium Chloride 10 - 20 ml 06/12/18 21:30 06/13/18 13:24 IV 10 ml UD PRN Administration PICC FLUSH Tuberculin PPD 5 tu 06/20/18 10:00 Tubersol, Aplisol, Ppd ID 06/20/18 10:01 X1 ONE Vancomycin HCl 125 mg 06/13/18 06:00 06/14/18 05:02 PO 06/23/18 06:01 125 mg BID DINO Administration Problem List (Last Reviewed 05/04/18 @ 12:51 by Desi Garcia) Intra-abdominal abscess (Acute) Diverticulitis of sigmoid colon (Acute) Pneumoperitoneum (Acute) Chronic kidney disease (Chronic) Asthma (Chronic) Hypertension (Chronic) Venous insufficiency (Chronic) Hematoma of left lower extremity (Chronic) Clostridium difficile colitis (Chronic) Vital Signs Temp Pulse Resp BP Pulse Ox 97.5 F L 115 H 18 138/82 H 99 06/14/18 15:50 06/14/18 15:50 06/14/18 15:50 06/14/18 15:50 06/14/18 15:50 Oxygen Flow Rate (L/min) 2 Oxygen Delivery Method Nasal Cannula Weight: 72.263 kg Body Mass Index (BMI) 31.1 Sodium 142 mmol/L (136-145) 06/13/18 05:20 Potassium 3.7 mmol/L (3.5-5.1) 06/13/18 05:20 Chloride 106 mmol/L (98-107) 06/13/18 05:20 Carbon Dioxide 27.0 mmol/L (21.0-32.0) 06/13/18 05:20 Anion Gap 9 (5-15) 06/13/18 05:20 BUN 12 mg/dL (7-18) 06/13/18 05:20 Creatinine 1.19 mg/dL (0.55-1.02) H 06/13/18 05:20 Est GFR (MDRD) Af Amer 56 mL/min (>60) L 06/13/18 05:20 Est GFR (MDRD) Non-Af 47 mL/min (>60) L 06/13/18 05:20 BUN/Creatinine Ratio 10.1 RATIO (10-20) 06/13/18 05:20 Glucose 124 mg/dL (74-106) H 06/13/18 05:20 Assessment/Plan: 1) Pain Hydrocodone/APAP for severe pain. Continue to monitor daily pain scores, prn medication use. 2) ID Oral vancomycin for C Diff infection thru 06/23, ceftriaxone/metronidazole thru 07/04 for diverticulitis. Continue to monitor s/s infection. 3) HTN Metoprolol. Continue to monitor BP/HR. 4) Luna's Disease Prednisone 3x daily. Continue to monitor clinically. 5) GI Pantoprazole daily, ondansetron prn. Continue to monitor s/s GI distress. Psychotropic Medications: None Unnecessary Medications: None Bowel Regimen: 6) PEG, prn bisacodyl. Continue to monitor prn medication use, for constipation/diarrhea. Date of Note:: 06/14/18 - Provider Comments Provider responsibility: Provider responsible to enter orders to implement recommendations <Alejo Ortega Chi - Last Filed: 06/14/18 16:55> Progress Note - Pharmacy Subjective: [] Objective: Allergies Iodine and Iodide Containing Produc Allergy (Verified 06/04/18 18:17) Unknown amoxicillin trihydrate [From Augmentin] Adverse Reaction (Verified 06/04/18 18:17) Upset Stomach diclofenac sodium [From Arthrotec] Adverse Reaction (Verified 06/04/18 18:17) Upset Stomach doxycycline Adverse Reaction (Verified 06/04/18 18:17) Upset Stomach erythromycin base Adverse Reaction (Verified 06/04/18 18:17) Upset Stomach etodolac [From Lodine] Adverse Reaction (Verified 06/04/18 18:17) Upset Stomach flurbiprofen [From Ansaid] Adverse Reaction (Verified 06/04/18 18:17) Upset Stomach misoprostol [From Arthrotec] Adverse Reaction (Verified 06/04/18 18:17) Upset Stomach NSAIDS (Non-Steroidal Anti-Inflamma Adverse Reaction (Verified 06/04/18 18:17) Other potassium clavulanate [From Augmentin] Adverse Reaction (Verified 06/04/18 18:17) Upset Stomach rofecoxib [From Vioxx] Adverse Reaction (Verified 06/04/18 18:17) Upset Stomach Current Medications Generic Name Dose Route Start Last Admin Trade Name Freq PRN Reason Stop Dose Admin Hydrocodone Bitart/Acetaminophen 1 tablet 06/12/18 23:33 06/14/18 15:30 [place] 5mg-325mg PO 1 tablet Q6H PRN PRN Administration SEVERE PAIN (6-10/10) Albuterol/Ipratropium 3 ml 06/14/18 08:18 Duoneb INHALATION Q6HWA.RT PRN WHEEZING Bisacodyl 10 mg 06/12/18 21:41 Dulcolax PO DAILY PRN Constipation Calamine/Phenol 1 applic 06/13/18 06:00 06/14/18 05:02 Calmoseptine Ointment TOPICAL 1 applicatio BID DINO Administration Protocol Clotrimazole 10 mg 06/12/18 22:00 06/14/18 13:41 Mycelex MUCOUS MEM 06/21/18 23:59 10 mg 5X/DAY DINO Administration Heparin Sodium (Beef Lung) 50 units 06/12/18 21:30 IV UD PRN HEPARIN FLUSH Ceftriaxone Sodium 1 gm in 50 mls @ 100 mls/hr 06/13/18 14:00 06/14/18 15:31 Rocephin IV 07/04/18 14:01 100 mls/hr Q24H DINO Administration Metronidazole 500 mg in 100 mls @ 100 mls/hr 06/12/18 22:00 06/14/18 14:14 Flagyl IV 07/04/18 23:59 100 mls/hr Q8 DINO Administration Sodium Chloride 250 mls @ 15 mls/hr 06/12/18 21:30 06/14/18 14:15 IV 15 mls/hr .[id number] PRN Administration SALINE FLUSH Menthol 1 applic 06/13/18 11:25 06/14/18 15:34 Bengay Vanishing Scent TOPICAL 1 applic TID PRN PRN Administration athritis Metoprolol Tartrate 25 mg 06/14/18 18:00 Lopressor (Beta Janny) PO 0600,1800 [facility] Multivitamins 1 capsule 06/13/18 12:00 06/14/18 08:30 Allbee W/C Caplet, Thera B Comp/C PO 1 capsule DAILYCM DINO Administration Nystatin 1 applic 06/13/18 06:00 06/14/18 05:02 Mycostatin Powder TOPICAL 1 applicatio 0600,2200 [facility] Administration Protocol Ondansetron HCl 4 mg 06/12/18 20:41 06/14/18 04:58 Zofran Odt PO 4 mg Q6H PRN PRN Administration NAUSEA Pantoprazole Sodium 40 mg 06/13/18 06:00 06/14/18 05:04 Protonix PO 40 mg DAILY DINO Administration Polyethylene Glycol 17 gm 06/13/18 06:00 06/14/18 05:04 Miralax PO Not Given DAILY DINO Prednisone 10 mg 06/13/18 07:45 06/14/18 12:01 PO 10 mg TIDCM DINO Administration Sodium Chloride 10 - 20 ml 06/12/18 21:30 06/13/18 13:24 IV 10 ml UD PRN Administration PICC FLUSH Tuberculin PPD 5 tu 06/20/18 10:00 Tubersol, Aplisol, Ppd ID 06/20/18 10:01 X1 ONE Vancomycin HCl 125 mg 06/13/18 06:00 06/14/18 05:02 PO 06/23/18 06:01 125 mg BID DINO Administration Problem List (Last Reviewed 05/04/18 @ 12:51 by Desi Garcia) Intra-abdominal abscess (Acute) Diverticulitis of sigmoid colon (Acute) Pneumoperitoneum (Acute) Chronic kidney disease (Chronic) Asthma (Chronic) Hypertension (Chronic) Venous insufficiency (Chronic) Hematoma of left lower extremity (Chronic) Clostridium difficile colitis (Chronic) Vital Signs Temp Pulse Resp BP Pulse Ox 97.5 F L 115 H 18 138/82 H 99 06/14/18 15:50 06/14/18 15:50 06/14/18 15:50 06/14/18 15:50 06/14/18 15:50 Oxygen Flow Rate (L/min) 2 Oxygen Delivery Method Nasal Cannula Weight: 72.263 kg Body Mass Index (BMI) 31.1 Sodium 142 mmol/L (136-145) 06/13/18 05:20 Potassium 3.7 mmol/L (3.5-5.1) 06/13/18 05:20 Chloride 106 mmol/L (98-107) 06/13/18 05:20 Carbon Dioxide 27.0 mmol/L (21.0-32.0) 06/13/18 05:20 Anion Gap 9 (5-15) 06/13/18 05:20 BUN 12 mg/dL (7-18) 06/13/18 05:20 Creatinine 1.19 mg/dL (0.55-1.02) H 06/13/18 05:20 Est GFR (MDRD) Af Amer 56 mL/min (>60) L 06/13/18 05:20 Est GFR (MDRD) Non-Af 47 mL/min (>60) L 06/13/18 05:20 BUN/Creatinine Ratio 10.1 RATIO (10-20) 06/13/18 05:20 Glucose 124 mg/dL (74-106) H 06/13/18 05:20 Assessment/Plan: Psychotropic Medications: Unnecessary Medications: Bowel Regimen: - Provider Comments Provider responsibility: Provider responsible to enter orders to implement recommendations Provider Comments to Recommendations by Pharmacy: Agree
--- NOTE | 2018-06-14 16:16 | PHA.CONS_ITS ---
<MeaghanLeighton carrillo D - Last Filed: 06/14/18 16:12> Progress Note - Pharmacy Subjective: TCU Admission Objective: Allergies Iodine and Iodide Containing Produc Allergy (Verified 06/04/18 18:17) Unknown amoxicillin trihydrate [From Augmentin] Adverse Reaction (Verified 06/04/18 18:17) Upset Stomach diclofenac sodium [From Arthrotec] Adverse Reaction (Verified 06/04/18 18:17) Upset Stomach doxycycline Adverse Reaction (Verified 06/04/18 18:17) Upset Stomach erythromycin base Adverse Reaction (Verified 06/04/18 18:17) Upset Stomach etodolac [From Lodine] Adverse Reaction (Verified 06/04/18 18:17) Upset Stomach flurbiprofen [From Ansaid] Adverse Reaction (Verified 06/04/18 18:17) Upset Stomach misoprostol [From Arthrotec] Adverse Reaction (Verified 06/04/18 18:17) Upset Stomach NSAIDS (Non-Steroidal Anti-Inflamma Adverse Reaction (Verified 06/04/18 18:17) Other potassium clavulanate [From Augmentin] Adverse Reaction (Verified 06/04/18 18:17) Upset Stomach rofecoxib [From Vioxx] Adverse Reaction (Verified 06/04/18 18:17) Upset Stomach Current Medications Generic Name Dose Route Start Last Admin Trade Name Freq PRN Reason Stop Dose Admin Hydrocodone Bitart/Acetaminophen 1 tablet 06/12/18 23:33 06/14/18 15:30 [place] 5mg-325mg PO 1 tablet Q6H PRN PRN Administration SEVERE PAIN (6-10/10) Albuterol/Ipratropium 3 ml 06/14/18 08:18 Duoneb INHALATION Q6HWA.RT PRN WHEEZING Bisacodyl 10 mg 06/12/18 21:41 Dulcolax PO DAILY PRN Constipation Calamine/Phenol 1 applic 06/13/18 06:00 06/14/18 05:02 Calmoseptine Ointment TOPICAL 1 applicatio BID DINO Administration Protocol Clotrimazole 10 mg 06/12/18 22:00 06/14/18 13:41 Mycelex MUCOUS MEM 06/21/18 23:59 10 mg 5X/DAY DINO Administration Heparin Sodium (Beef Lung) 50 units 06/12/18 21:30 IV UD PRN HEPARIN FLUSH Ceftriaxone Sodium 1 gm in 50 mls @ 100 mls/hr 06/13/18 14:00 06/14/18 15:31 Rocephin IV 07/04/18 14:01 100 mls/hr Q24H DINO Administration Metronidazole 500 mg in 100 mls @ 100 mls/hr 06/12/18 22:00 06/14/18 14:14 Flagyl IV 07/04/18 23:59 100 mls/hr Q8 DINO Administration Sodium Chloride 250 mls @ 15 mls/hr 06/12/18 21:30 06/14/18 14:15 IV 15 mls/hr .[id number] PRN Administration SALINE FLUSH Menthol 1 applic 06/13/18 11:25 06/14/18 15:34 Bengay Vanishing Scent TOPICAL 1 applic TID PRN PRN Administration athritis Metoprolol Tartrate 25 mg 06/14/18 18:00 Lopressor (Beta Janny) PO 0600,1800 DINO Multivitamins 1 capsule 06/13/18 12:00 06/14/18 08:30 Allbee W/C Caplet, Thera B Comp/C PO 1 capsule DAILYCM DINO Administration Nystatin 1 applic 06/13/18 06:00 06/14/18 05:02 Mycostatin Powder TOPICAL 1 applicatio 0600,2200 DINO Administration Protocol Ondansetron HCl 4 mg 06/12/18 20:41 06/14/18 04:58 Zofran Odt PO 4 mg Q6H PRN PRN Administration NAUSEA Pantoprazole Sodium 40 mg 06/13/18 06:00 06/14/18 05:04 Protonix PO 40 mg DAILY DINO Administration Polyethylene Glycol 17 gm 06/13/18 06:00 06/14/18 05:04 Miralax PO Not Given DAILY DINO Prednisone 10 mg 06/13/18 07:45 06/14/18 12:01 PO 10 mg TIDCM DINO Administration Sodium Chloride 10 - 20 ml 06/12/18 21:30 06/13/18 13:24 IV 10 ml UD PRN Administration PICC FLUSH Tuberculin PPD 5 tu 06/20/18 10:00 Tubersol, Aplisol, Ppd ID 06/20/18 10:01 X1 ONE Vancomycin HCl 125 mg 06/13/18 06:00 06/14/18 05:02 PO 06/23/18 06:01 125 mg BID DINO Administration Problem List (Last Reviewed 05/04/18 @ 12:51 by Desi Garcia) Intra-abdominal abscess (Acute) Diverticulitis of sigmoid colon (Acute) Pneumoperitoneum (Acute) Chronic kidney disease (Chronic) Asthma (Chronic) Hypertension (Chronic) Venous insufficiency (Chronic) Hematoma of left lower extremity (Chronic) Clostridium difficile colitis (Chronic) Vital Signs Temp Pulse Resp BP Pulse Ox 97.5 F L 115 H 18 138/82 H 99 06/14/18 15:50 06/14/18 15:50 06/14/18 15:50 06/14/18 15:50 06/14/18 15:50 Oxygen Flow Rate (L/min) 2 Oxygen Delivery Method Nasal Cannula Weight: 72.263 kg Body Mass Index (BMI) 31.1 Sodium 142 mmol/L (136-145) 06/13/18 05:20 Potassium 3.7 mmol/L (3.5-5.1) 06/13/18 05:20 Chloride 106 mmol/L (98-107) 06/13/18 05:20 Carbon Dioxide 27.0 mmol/L (21.0-32.0) 06/13/18 05:20 Anion Gap 9 (5-15) 06/13/18 05:20 BUN 12 mg/dL (7-18) 06/13/18 05:20 Creatinine 1.19 mg/dL (0.55-1.02) H 06/13/18 05:20 Est GFR (MDRD) Af Amer 56 mL/min (>60) L 06/13/18 05:20 Est GFR (MDRD) Non-Af 47 mL/min (>60) L 06/13/18 05:20 BUN/Creatinine Ratio 10.1 RATIO (10-20) 06/13/18 05:20 Glucose 124 mg/dL (74-106) H 06/13/18 05:20 Assessment/Plan: 1) Pain Hydrocodone/APAP for severe pain. Continue to monitor daily pain scores, prn medication use. 2) ID Oral vancomycin for C Diff infection thru 06/23, ceftriaxone/metronidazole thru 07/04 for diverticulitis. Continue to monitor s/s infection. 3) HTN Metoprolol. Continue to monitor BP/HR. 4) Duval's Disease Prednisone 3x daily. Continue to monitor clinically. 5) GI Pantoprazole daily, ondansetron prn. Continue to monitor s/s GI distress. Psychotropic Medications: None Unnecessary Medications: None Bowel Regimen: 6) PEG, prn bisacodyl. Continue to monitor prn medication use, for constipation/diarrhea. Date of Note:: 06/14/18 - Provider Comments Provider responsibility: Provider responsible to enter orders to implement recommendations <Alejo Ortega Chi - Last Filed: 06/14/18 16:55> Progress Note - Pharmacy Subjective: [] Objective: Allergies Iodine and Iodide Containing Produc Allergy (Verified 06/04/18 18:17) Unknown amoxicillin trihydrate [From Augmentin] Adverse Reaction (Verified 06/04/18 18:17) Upset Stomach diclofenac sodium [From Arthrotec] Adverse Reaction (Verified 06/04/18 18:17) Upset Stomach doxycycline Adverse Reaction (Verified 06/04/18 18:17) Upset Stomach erythromycin base Adverse Reaction (Verified 06/04/18 18:17) Upset Stomach etodolac [From Lodine] Adverse Reaction (Verified 06/04/18 18:17) Upset Stomach flurbiprofen [From Ansaid] Adverse Reaction (Verified 06/04/18 18:17) Upset Stomach misoprostol [From Arthrotec] Adverse Reaction (Verified 06/04/18 18:17) Upset Stomach NSAIDS (Non-Steroidal Anti-Inflamma Adverse Reaction (Verified 06/04/18 18:17) Other potassium clavulanate [From Augmentin] Adverse Reaction (Verified 06/04/18 18:17) Upset Stomach rofecoxib [From Vioxx] Adverse Reaction (Verified 06/04/18 18:17) Upset Stomach Current Medications Generic Name Dose Route Start Last Admin Trade Name Freq PRN Reason Stop Dose Admin Hydrocodone Bitart/Acetaminophen 1 tablet 06/12/18 23:33 06/14/18 15:30 [place] 5mg-325mg PO 1 tablet Q6H PRN PRN Administration SEVERE PAIN (6-10/10) Albuterol/Ipratropium 3 ml 06/14/18 08:18 Duoneb INHALATION Q6HWA.RT PRN WHEEZING Bisacodyl 10 mg 06/12/18 21:41 Dulcolax PO DAILY PRN Constipation Calamine/Phenol 1 applic 06/13/18 06:00 06/14/18 05:02 Calmoseptine Ointment TOPICAL 1 applicatio BID DINO Administration Protocol Clotrimazole 10 mg 06/12/18 22:00 06/14/18 13:41 Mycelex MUCOUS MEM 06/21/18 23:59 10 mg 5X/DAY DINO Administration Heparin Sodium (Beef Lung) 50 units 06/12/18 21:30 IV UD PRN HEPARIN FLUSH Ceftriaxone Sodium 1 gm in 50 mls @ 100 mls/hr 06/13/18 14:00 06/14/18 15:31 Rocephin IV 07/04/18 14:01 100 mls/hr Q24H DINO Administration Metronidazole 500 mg in 100 mls @ 100 mls/hr 06/12/18 22:00 06/14/18 14:14 Flagyl IV 07/04/18 23:59 100 mls/hr Q8 DINO Administration Sodium Chloride 250 mls @ 15 mls/hr 06/12/18 21:30 06/14/18 14:15 IV 15 mls/hr .[id number] PRN Administration SALINE FLUSH Menthol 1 applic 06/13/18 11:25 06/14/18 15:34 Bengay Vanishing Scent TOPICAL 1 applic TID PRN PRN Administration athritis Metoprolol Tartrate 25 mg 06/14/18 18:00 Lopressor (Beta Janny) PO 0600,1800 [facility] Multivitamins 1 capsule 06/13/18 12:00 06/14/18 08:30 Allbee W/C Caplet, Thera B Comp/C PO 1 capsule DAILYCM DINO Administration Nystatin 1 applic 06/13/18 06:00 06/14/18 05:02 Mycostatin Powder TOPICAL 1 applicatio 0600,2200 [facility] Administration Protocol Ondansetron HCl 4 mg 06/12/18 20:41 06/14/18 04:58 Zofran Odt PO 4 mg Q6H PRN PRN Administration NAUSEA Pantoprazole Sodium 40 mg 06/13/18 06:00 06/14/18 05:04 Protonix PO 40 mg DAILY DINO Administration Polyethylene Glycol 17 gm 06/13/18 06:00 06/14/18 05:04 Miralax PO Not Given DAILY DINO Prednisone 10 mg 06/13/18 07:45 06/14/18 12:01 PO 10 mg TIDCM DINO Administration Sodium Chloride 10 - 20 ml 06/12/18 21:30 06/13/18 13:24 IV 10 ml UD PRN Administration PICC FLUSH Tuberculin PPD 5 tu 06/20/18 10:00 Tubersol, Aplisol, Ppd ID 06/20/18 10:01 X1 ONE Vancomycin HCl 125 mg 06/13/18 06:00 06/14/18 05:02 PO 06/23/18 06:01 125 mg BID DINO Administration Problem List (Last Reviewed 05/04/18 @ 12:51 by Desi Garcia) Intra-abdominal abscess (Acute) Diverticulitis of sigmoid colon (Acute) Pneumoperitoneum (Acute) Chronic kidney disease (Chronic) Asthma (Chronic) Hypertension (Chronic) Venous insufficiency (Chronic) Hematoma of left lower extremity (Chronic) Clostridium difficile colitis (Chronic) Vital Signs Temp Pulse Resp BP Pulse Ox 97.5 F L 115 H 18 138/82 H 99 06/14/18 15:50 06/14/18 15:50 06/14/18 15:50 06/14/18 15:50 06/14/18 15:50 Oxygen Flow Rate (L/min) 2 Oxygen Delivery Method Nasal Cannula Weight: 72.263 kg Body Mass Index (BMI) 31.1 Sodium 142 mmol/L (136-145) 06/13/18 05:20 Potassium 3.7 mmol/L (3.5-5.1) 06/13/18 05:20 Chloride 106 mmol/L (98-107) 06/13/18 05:20 Carbon Dioxide 27.0 mmol/L (21.0-32.0) 06/13/18 05:20 Anion Gap 9 (5-15) 06/13/18 05:20 BUN 12 mg/dL (7-18) 06/13/18 05:20 Creatinine 1.19 mg/dL (0.55-1.02) H 06/13/18 05:20 Est GFR (MDRD) Af Amer 56 mL/min (>60) L 06/13/18 05:20 Est GFR (MDRD) Non-Af 47 mL/min (>60) L 06/13/18 05:20 BUN/Creatinine Ratio 10.1 RATIO (10-20) 06/13/18 05:20 Glucose 124 mg/dL (74-106) H 06/13/18 05:20 Assessment/Plan: Psychotropic Medications: Unnecessary Medications: Bowel Regimen: - Provider Comments Provider responsibility: Provider responsible to enter orders to implement recommendations Provider Comments to Recommendations by Pharmacy: Agree
--- NOTE | 2018-06-14 17:43 | VDLE_ITS ---
Reason For Study: elevated D-Dimer RIGHT LEFT GSV is normal. GSV is normal. CFV is compressible, spontaneous, phasic, CFV is compressible, spontaneous, phasic, competent and demonstrates normal competent, and demonstrates normal augmentation. augmentation. FV is compressible, spontaneous, phasic, FV is compressible, spontaneous, phasic, competent and demonstrates normal competent and demonstrates normal augmentation. augmentation. POP V is compressible, spontaneous, phasic, POP V is compressible, spontaneous, phasic, competent and demonstrates normal competent and demonstrates normal augmentation. augmentation. PTV is compressible. T/P Trunk is compressible. RT PerV is compressible. PTV is compressible. T/P Trunk is dilated and noncompressible. LT PerV is compressible. Procedure Exam performed portable in patient room. The exam was of fair technical quality due to leg wounds. Limited views of calf veins. A preliminary report was called and/or faxed to TCU. Interpretation Summary Acute deep vein thrombosis is noted in the right tibio-peroneal trunk. The remainder of the right lower extremity deep venous system is patent and compressible. Deep veins of the left lower extremity are patent and compressible segmentally. There is no evidence of left lower extremity deep vein thrombosis. Valvular competence appears intact within the proximal deep venous systems bilaterally. The greater saphenous veins appear bilaterally patent and compressible segmentally. Ordering Physician: Alejo Ortega Performed By: Karson Lacy RVT
[2018-06-14] MEDS: APIXABAN 5 MG TABLET PO (17:55)
--- NOTE | 2018-06-14 20:00 | NURSING ---
Iodine listed as allergy on pt chart, reaction unknown. Dayshift reported pt received contrast for CTA. Pt reported to this nurse she does not know of an iodine or shellfish allergy. Pt reported receiving contrast about month and a half ago with no known reaction. Dr Ortega aware. Continue to monitor.
--- NOTE | 2018-06-14 22:00 | NURSING ---
RN into pass HS medications. After speaking with pt for approx 5 minutes, pt informed this nurse she was having a hard time hearing, felt ears, and noticed hearing aides were not in place. Nurse looked around briefly unable to locate hearing aides. Pt reported having hearing aides last at supper, and then corrected self to, CTA. Pt looking through personal items. Multiple other staff into assist. While searching bed pt turned to side, hearing aides found behind pt's back lower back. Pt stated, Oh I must have taken them out last night. You have to take them out, they just don't fall out. Secure container provided to patient with labeled with name, unit, product and lid to store hearing aides in.
[2018-06-14] MEDS: Enoxaparin 80 MG/0.8 ML Syringe 70 MG SC (22:14)
[2018-06-15 06:47] VITALS: BP 142/92; PULSE 121
[2018-06-15] MEDS: Metoprolol Tartrate 25 MG Tablet PO ×2 (06:47→16:43)
[2018-06-15] MEDS: Enoxaparin 80 MG/0.8 ML Syringe 70 MG SC (06:48)
[2018-06-15] MEDS: Menthol/Lanolin/Calamine/Znox 113 GM Tube 1 APPLIC TOPICAL ×2 (06:48→16:46)
[2018-06-15] MEDS: Pantoprazole Sodium 40 MG Tablet PO (06:48)
[2018-06-15] MEDS: Clotrimazole 10 MG Troche MUCOUS MEM ×5 (06:50→21:50)
[2018-06-15] MEDS: Nystatin Powder 15gm Bottle 1 APPLIC TOPICAL ×2 (06:55→21:51)
[2018-06-15] MEDS: Ondansetron ODT 4 MG Tablet PO (06:59)
[2018-06-15 07:17] LABS: Hematocrit 29.4 % (37-47); Hemoglobin 8.9 g/dl (12.0-15.0)
[2018-06-15 08:00] VITALS: BP 160/92; PULSE 102
[2018-06-15] MEDS: predniSONE 10 MG Tablet PO ×3 (09:14→16:43)
[2018-06-15] MEDS: Vitamin B Comp W-C Capsule 1 CAP PO (09:14)
[2018-06-15] MEDS: HYDROcodone Bitartrate/Apap 5/325 Tablet PO ×2 (09:17→16:42)
[2018-06-15] MEDS: Ceftriaxone 1 GM/50 ML BAG IV (12:49)
[2018-06-15] MEDS: 0.9% NaCl IVPB Med Flush (250 mL) 15 ML IV ×3 (12:53→21:28)
[2018-06-15] MEDS: 0.9% NaCl PICC Flush IV ×2 (12:53→13:41)
[2018-06-15 13:50] VITALS: O2SAT 99
[2018-06-15 16:43] VITALS: PULSE 128
[2018-06-15 17:25] VITALS: PULSE 112
--- NOTE | 2018-06-15 18:21 | NURSING ---
Addendum entered by Zonia Portillo 06/15/18 18:24: DR. MEANS OF INCREASED HR. NO N.O AT THIS TIME. Original Note: R' REQUESTING PREDNISONE BE DECREASED TO 10MG BID TO TAPER OFF. OK PER DR. MEANS.
--- NOTE | 2018-06-15 22:06 | NURSING ---
Code status discussed with pt, pt wishes to be a DNRCC. Pt informed this nurse she does not want any life saving measures completed.
[2018-06-16] MEDS: Ondansetron ODT 4 MG Tablet PO ×2 (04:40→11:00)
[2018-06-16] MEDS: Menthol/Lanolin/Calamine/Znox 113 GM Tube 1 APPLIC TOPICAL ×2 (04:41→16:59)
[2018-06-16] MEDS: Nystatin Powder 15gm Bottle 1 APPLIC TOPICAL ×2 (04:42→21:32)
[2018-06-16] MEDS: Pantoprazole Sodium 40 MG Tablet PO (04:52)
[2018-06-16 04:53] VITALS: BP 164/94; PULSE 121
[2018-06-16] MEDS: Metoprolol Tartrate 25 MG Tablet PO ×2 (04:53→17:00)
[2018-06-16] MEDS: Clotrimazole 10 MG Troche MUCOUS MEM ×4 (05:10→21:40)
[2018-06-16 05:19] LABS: Hematocrit 28.4 % (37-47); Hemoglobin 8.4 g/dl (12.0-15.0)
[2018-06-16] MEDS: HYDROcodone Bitartrate/Apap 5/325 Tablet PO ×3 (06:42→21:50)
--- NOTE | 2018-06-16 07:20 | NURSING ---
PICC drsg changed this AM d/t drsg falling off and serous drainage under drsg from third spacing. Scant amt of purulent drainage noted at insertion site. No redness noted. Pt denied tenderness. Unable to remove drainage with chlora prep. Sterile technique maintained throughout drsg change. Catheter slightly exposed past 0 cm. Blood return noted after drsg change. Stocket applied to secure drsg. Will update. Dr Ortega.
[2018-06-16 08:05] VITALS: BP 145/75; PULSE 120
--- NOTE | 2018-06-16 08:06 | NURSING ---
Elevated B/P and HR reported at shift change and will update Dr Ortega.
[2018-06-16] MEDS: Vitamin B Comp W-C Capsule 1 CAP PO (08:16)
[2018-06-16] MEDS: predniSONE 10 MG Tablet PO ×2 (08:16→17:00)
[2018-06-16] MEDS: Enoxaparin 80 MG/0.8 ML Syringe 70 MG SC (08:16)
--- NOTE | 2018-06-16 12:29 | NURSING ---
r' c/o increased pain today, especially in rle. notified dr. skelton. increased norco from 1-2 tablets prn, senna/colace tablet bid, and baclofen prn. will update r'.
[2018-06-16] MEDS: 0.9% NaCl IVPB Med Flush (250 mL) 15 ML IV ×3 (12:39→21:32)
[2018-06-16] MEDS: 0.9% NaCl PICC Flush IV (12:39)
[2018-06-16] MEDS: Ceftriaxone 1 GM/50 ML BAG IV (12:39)
[2018-06-16] MEDS: Baclofen 10 MG Tablet PO ×2 (13:00→21:50)
[2018-06-16 15:52] VITALS: BP 125/71; PULSE 125; RESP 20; TEMP 36.9; O2SAT 96
[2018-06-16] MEDS: Senna/Docusate Sodium 1 Tablet PO (16:59)
[2018-06-16 17:00] VITALS: PULSE 125
[2018-06-16 17:46] VITALS: PULSE 109
[2018-06-17] MEDS: Menthol/Lanolin/Calamine/Znox 113 GM Tube 1 APPLIC TOPICAL ×2 (05:27→18:15)
[2018-06-17] MEDS: 0.9% NaCl PICC Flush IV ×2 (05:49→13:18)
[2018-06-17 06:22] VITALS: PULSE 118
[2018-06-17] MEDS: Clotrimazole 10 MG Troche MUCOUS MEM ×4 (06:22→18:14)
[2018-06-17] MEDS: Metoprolol Tartrate 25 MG Tablet PO ×2 (06:22→18:14)
[2018-06-17] MEDS: Pantoprazole Sodium 40 MG Tablet PO (06:22)
[2018-06-17] MEDS: Senna/Docusate Sodium 1 Tablet PO ×2 (06:22→18:14)
[2018-06-17] MEDS: Nystatin Powder 15gm Bottle 1 APPLIC TOPICAL (06:23)
[2018-06-17] MEDS: HYDROcodone Bitartrate/Apap 5/325 Tablet PO (06:28)
[2018-06-17 07:45] LABS: Hemoglobin 8.8 g/dl (12.0-15.0)
[2018-06-17] MEDS: Enoxaparin 80 MG/0.8 ML Syringe 70 MG SC (09:07)
[2018-06-17] MEDS: predniSONE 10 MG Tablet PO ×2 (09:08→18:14)
[2018-06-17] MEDS: Vitamin B Comp W-C Capsule 1 CAP PO (09:08)
--- NOTE | 2018-06-17 13:15 | NURSING ---
Pt c/o feeling so tired todat, states she istired of fighting and I want to quit. Pt requested to have hospice come and talk to her, will notify Dr. Kwok. Syed to arms wet with seeping drainage, dressings changed, arms elevated on pillows for comfort.
[2018-06-17] MEDS: Ceftriaxone 1 GM/50 ML BAG IV (13:18)
--- NOTE | 2018-06-17 15:49 | NURSING ---
PT requesting Hospice consult, Dr. Ortega notified.
[2018-06-17 15:54] VITALS: BP 132/67; PULSE 126; RESP 20; TEMP 36.4; O2SAT 99
--- NOTE | 2018-06-17 17:03 | NURSING ---
Pt's son Luis updated on Hospice consult.
[2018-06-17 18:14] VITALS: BP 132/67; PULSE 126
--- NOTE | 2018-06-17 18:58 | NURSING ---
Pt to bed discharged to [facility] this evening, Dr. Ortega updated and report called to Hospice nurse. Pt's daughter present and aware.
--- NOTE | 2018-06-17 19:15 | NURSING ---
Pt left via stretcher to hospice.
--- NOTE | 2018-06-18 00:06 | DCINST_ITS ---
You will use the following diet at home:: No restrictions, Regular Your food should be the consistency of: Regular Your liquids should be the consistency of: Regular/Thin Discharge Activity: Return to Normal Activity, Use Walker Weight Bearing Status: Weight bearing as tolerated Call your doctor if you observe: Fever of 101 or Higher, Inability to urinate, Inability to have a bowel movement, Shortness of breath, Chest pain, Uncontrol led pain Allergies/Adverse Reactions: Allergies amoxicillin trihydrate [From Augmentin] Adverse Reaction (Verified 06/04/18 18:17) Upset Stomach diclofenac sodium [From Arthrotec] Adverse Reaction (Verified 06/04/18 18:17) Upset Stomach doxycycline Adverse Reaction (Verified 06/04/18 18:17) Upset Stomach erythromycin base Adverse Reaction (Verified 06/04/18 18:17) Upset Stomach etodolac [From Lodine] Adverse Reaction (Verified 06/04/18 18:17) Upset Stomach flurbiprofen [From Ansaid] Adverse Reaction (Verified 06/04/18 18:17) Upset Stomach misoprostol [From Arthrotec] Adverse Reaction (Verified 06/04/18 18:17) Upset Stomach NSAIDS (Non-Steroidal Anti-Inflamma Adverse Reaction (Verified 06/04/18 18:17) Other potassium clavulanate [From Augmentin] Adverse Reaction (Verified 06/04/18 18:17) Upset Stomach rofecoxib [From Vioxx] Adverse Reaction (Verified 06/04/18 18:17) Upset Stomach Medications to take at Discharge B12/Levomefolate Calcium/B-6 [Folbic Rf Tablet] 1 ea PO DAILY 04/07/18 Omeprazole [Prilosec] 40 mg PO DAILY 04/07/18 Ceftriaxone [Rocephin] 1 gm IV Q24 06/12/18 Clotrimazole 10 mg PO 5X/DAY 06/12/18 Menthol/Lanolin/Calamine/Znox [Calmoseptine Ointment] 1 applic TOPICAL BID 06/12/18 Metoprolol Tartrate [Lopressor (beta ab)] 25 mg PO BID 06/12/18 Metronidazole/Sodium Chloride [Metronidazole 500 mg/100 ml] 100 ml IV Q8H 06/12/18 Ondansetron [Ondansetron Odt] 4 mg PO Q6H PRN PRN 06/12/18 Polyethylene Glycol 3350 [Miralax] 17 gm PO DAILY 06/12/18 Prednisone 2.5 mg PO DAILY@1700 06/12/18 Prednisone 5 mg PO BID 06/12/18 Primary Care Physician: Jared Romero MD [Primary Care Provider] - Please follow up with your Primary Care Physician in: As needed. Test Results: Test results from this visit will be discussed in further detail at your follow- up appointment, if applicable. Please Follow Up With: Dr. Antione Zavala Hematology/Oncology When: As needed. Please Follow Up With: Dr. Rey Rob (Surgeon) When: As needed. Please Follow Up With: Dr. Misael Wei Infectious Disease When: As needed. Proposed Discharge Date: 06/17/18
--- NOTE | 2018-06-18 00:06 | PCM.DC.SUM ---
Discharge Date and Diagnosis Date of Admission: 06/12/18 Date of Discharge: 06/17/18 - Secondary Discharge Diagnosis Chronic Problems (Last Reviewed 05/04/18 @ 12:51 by Desi Garcia) Chronic kidney disease (Chronic) Asthma (Chronic) Hypertension (Chronic) Venous insufficiency (Chronic) Hematoma of left lower extremity (Chronic) Clostridium difficile colitis (Chronic) Non-rheumatic aortic stenosis (Chronic) Hypertensive nephropathy (Chronic) Hyperlipidemia (Chronic) Atherosclerosis of coronary artery of [place] heart without angina pectoris (Chronic) Bilateral pulmonary embolism (Chronic) DVT (deep venous thrombosis) (Chronic) Stage III chronic kidney disease (Chronic) Addisons disease (Chronic) Hospital Course and Treatment Consultations 06/12/18 23:16 Consult: Onc/Wound/companion Routine Comment: Reason for Consult:: Rt lower ext Operations: None Procedures: None Summary of Care Provided: The patient is a 77 year old Female with below past medical history hospitalized for pneumoperitoneum secondary to rectal perforation from sigmoid diverticulitis, transferred to [facility] for surgical evaluation, no surgery performed, treated with intravenous antibiotics, admitted to TCU with debility, here for rehabilitation, strengthening, prior to discharge home alone. On TCU, resident off anticoagulation due to GI bleed, resident developed tachycardia, D-dimer 8.80, positive for severe bilateral pulmonary emboli, right lower extremity DVT, treated with Lovenox 70MG Q24H, renal dose. Hemoglobin stable. Resident tired, she wants to give up, and only had comfort care. Resident requested hospice services, discharge to inpatient hospice facility. - Physical Exam Vital Signs Temp Pulse Resp BP Pulse Ox 97.5 F L 126 H 20 H 132/67 H 99 06/17/18 15:54 06/17/18 18:14 06/17/18 15:54 06/17/18 18:14 06/17/18 15:54 Oxygen Flow Rate (L/min) 2 Oxygen Delivery Method Nasal Cannula Weight: 72.263 kg Body Mass Index (BMI) 31.1 Intake and Output for Last 24 Hours 06/16/18 06/17/18 06/18/18 23:59 23:59 23:59 Intake Total 822 / 822 0 / 0 Balance 822 / 822 0 / 0 Laboratory Tests Past 24 Hrs 06/17/18 07:07 Hgb 8.8 L Hct 30.0 L Discharge Diet: No Restrictions Discharge Activity: Return to Normal Activity, Use Walker Weight Bearing Status: Weight bearing as tolerated Call your doctor if you observe: Fever of 101 or Higher, Inability to urinate, Inability to have a bowel movement, Shortness of breath, Chest pain, Uncontrolled pain Home Medications: Medications to take at Discharge B12/Levomefolate Calcium/B-6 [Folbic Rf Tablet] 1 ea PO DAILY 04/07/18 Omeprazole [Prilosec] 40 mg PO DAILY 04/07/18 Ceftriaxone [Rocephin] 1 gm IV Q24 06/12/18 Clotrimazole 10 mg PO 5X/DAY 06/12/18 Menthol/Lanolin/Calamine/Znox [Calmoseptine Ointment] 1 applic TOPICAL BID 06/12/18 Metoprolol Tartrate [Lopressor (beta ab)] 25 mg PO BID 06/12/18 Metronidazole/Sodium Chloride [Metronidazole 500 mg/100 ml] 100 ml IV Q8H 06/12/18 Ondansetron [Ondansetron Odt] 4 mg PO Q6H PRN PRN 06/12/18 Polyethylene Glycol 3350 [Miralax] 17 gm PO DAILY 06/12/18 Prednisone 2.5 mg PO DAILY@1700 06/12/18 Prednisone 5 mg PO BID 06/12/18 Primary Care Physician: Jared Romero MD [Primary Care Provider] - Please follow up with your Primary Care Physician in: As needed. Please Follow Up With: Dr. Antione Zavala Hematology/Oncology When: As needed. Please Follow Up With: Dr. Rey Rob (Surgeon) When: As needed. Please Follow Up With: Dr. Misael Wei Infectious Disease When: As needed. Disposition: Hospice Medical Facility Minutes spent on discharge:: 30 Patient Condition:: Poor Medical Necessity - Tobacco Use Smoking Status: Never smoker Tobacco Use: Non-smoker Meaningful Use Info Meaningful Use Diagnoses (Choose all that apply): None applicable
--- NOTE | 2018-06-18 00:09 | DS.PCM_ITS ---
Discharge Date and Diagnosis Date of Admission: 06/12/18 Date of Discharge: 06/17/18 - Secondary Discharge Diagnosis Chronic Problems (Last Reviewed 05/04/18 @ 12:51 by Desi Garica) Chronic kidney disease (Chronic) Asthma (Chronic) Hypertension (Chronic) Venous insufficiency (Chronic) Hematoma of left lower extremity (Chronic) Clostridium difficile colitis (Chronic) Non-rheumatic aortic stenosis (Chronic) Hypertensive nephropathy (Chronic) Hyperlipidemia (Chronic) Atherosclerosis of coronary artery of [place] heart without angina pectoris (Chronic) Bilateral pulmonary embolism (Chronic) DVT (deep venous thrombosis) (Chronic) Stage III chronic kidney disease (Chronic) Addisons disease (Chronic) Hospital Course and Treatment Consultations 06/12/18 23:16 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 On TCU, resident off anticoagulation due to GI bleed, resident developed tachycardia, D-dimer 8.80, positive for severe bilateral pulmonary emboli, right lower extremity DVT, treated with Lovenox 70MG Q24H, renal dose. Hemoglobin stable. Resident tired, she wants to give up, and only had comfort care. Resident requested hospice services, discharge to inpatient hospice facility. - Physical Exam Vital Signs Temp Pulse Resp BP Pulse Ox 97.5 F L 126 H 20 H 132/67 H 99 06/17/18 15:54 06/17/18 18:14 06/17/18 15:54 06/17/18 18:14 06/17/18 15:54 Oxygen Flow Rate (L/min) 2 Oxygen Delivery Method Nasal Cannula Weight: 72.263 kg Body Mass Index (BMI) 31.1 Intake and Output for Last 24 Hours 06/16/18 06/17/18 06/18/18 23:59 23:59 23:59 Intake Total 822 / 822 0 / 0 Balance 822 / 822 0 / 0 Laboratory Tests Past 24 Hrs 06/17/18 07:07 Hgb 8.8 L Hct 30.0 L Discharge Diet: No Restrictions Discharge Activity: Return to Normal Activity, Use Walker Weight Bearing Status: Weight bearing as tolerated Call your doctor if you observe: Fever of 101 or Higher, Inability to urinate, Inability to have a bowel movement, Shortness of breath, Chest pain, Uncontrolled pain Home Medications: Medications to take at Discharge B12/Levomefolate Calcium/B-6 [Folbic Rf Tablet] 1 ea PO DAILY 04/07/18 Omeprazole [Prilosec] 40 mg PO DAILY 04/07/18 Ceftriaxone [Rocephin] 1 gm IV Q24 06/12/18 Clotrimazole 10 mg PO 5X/DAY 06/12/18 Menthol/Lanolin/Calamine/Znox [Calmoseptine Ointment] 1 applic TOPICAL BID 06/12/18 Metoprolol Tartrate [Lopressor (beta ab)] 25 mg PO BID 06/12/18 Metronidazole/Sodium Chloride [Metronidazole 500 mg/100 ml] 100 ml IV Q8H 06/12/18 Ondansetron [Ondansetron Odt] 4 mg PO Q6H PRN PRN 06/12/18 Polyethylene Glycol 3350 [Miralax] 17 gm PO DAILY 06/12/18 Prednisone 2.5 mg PO DAILY@1700 06/12/18 Prednisone 5 mg PO BID 06/12/18 Primary Care Physician: Jared Romero MD [Primary Care Provider] - Please follow up with your Primary Care Physician in: As needed. Please Follow Up With: Dr. Antione Zavala Hematology/Oncology When: As needed. Please Follow Up With: Dr. Rey Rob (Surgeon) When: As needed. Please Follow Up With: Dr. Misael Wei Infectious Disease When: As needed. Disposition: Hospice Medical Facility Minutes spent on discharge:: 30 Patient Condition:: Poor Medical Necessity - Tobacco Use Smoking Status: Never smoker Tobacco Use: Non-smoker Meaningful Use Info Meaningful Use Diagnoses (Choose all that apply): None applicable
--- NOTE | 2018-06-19 12:07 | CASEMGMT ---
Insurance Notified insurance of resident discharge on 06/17/18 to Inpatient Hospice. Auth#[id number] Britt QUIÑONES, SAMUEL
--- NOTE | 2018-06-23 08:36 | MDS.RN ---
Information for the mds was obtained from review of the clinical record, interview of resident, staff, and direct observation of resident's care.
== END 2018-06-17 19:15 | disposition hospice, inpatient (51) | DRG 948 ==
PROVIDERS: Admitting Provider Family Medicine Geriatric Medicine; Family Provider Family Medicine; PCP Family Medicine; Visit Provider Family Medicine Geriatric Medicine
DX: R53.81 Other malaise (principal); K57.20 Diverticulitis of large intestine with perforation and abscess without bleeding; A04.72 Enterocolitis due to Clostridium difficile, not specified as recurrent; E27.1 Primary adrenocortical insufficiency; K21.9 Gastro-esophageal reflux disease without esophagitis; J45.909 Unspecified asthma, uncomplicated; E78.5 Hyperlipidemia, unspecified; I12.9 Hypertensive chronic kidney disease with stage 1 through stage 4 chronic kidney disease, or unspecified chronic kidney disease; I48.91 Unspecified atrial fibrillation; N18.3 Chronic kidney disease, stage 3 (moderate); M19.90 Unspecified osteoarthritis, unspecified site; E03.9 Hypothyroidism, unspecified; M35.3 Polymyalgia rheumatica; B37.9 Candidiasis, unspecified; Z86.711 Personal history of pulmonary embolism; Z86.718 Personal history of other venous thrombosis and embolism; I25.10 Atherosclerotic heart disease of native coronary artery without angina pectoris
CPT/HCPCS: 36415; 71046; 80048; 85014; 85018; 85025; 85379; 93005; 93970; 97110; 97163; 97166; 97530; 97535; 97802; J7030; J7050; A4216

== ENCOUNTER → 2018-06-14 18:37 | Outpatient (CLI) | payer MEDICARE, SELFPAY ==
[2018-06-12 20:13] VITALS: BMI 31.1
--- NOTE | 2018-06-14 18:42 | CT_ITS ---
We are attempting to reach Alejo Ortega MD to discuss findings. An addendum with communication details will be sent when the communication is complete. STUDY: CTA CHEST REASON FOR EXAM: Female, 77 years old. Elevated d-dimer. RADIATION DOSAGE (If Supplied By Facility): CTDIvol = ( 9.95 ) mGy, DLP = ( 388.70 ) mGycm TECHNIQUE: The examination was performed with the intravenous administration of 75ML ml of Isovue 370 contrast material. Post-processing of the angiographic images was performed, with multiplanar reformation and 3D reconstruction. Individualized dose optimization techniques were used for this CT. COMPARISON: None. FINDINGS: Normal enhancement of the main pulmonary artery and right and left pulmonary arteries. Several small bilateral pulmonary emboli are seen. As example, small emboli seen to the right apical segment on axial image 141. Emboli seen to the anterior segment of the left upper lobe on axial image 134-140. Pulmonary emboli seen to segments of the right lower lobe on axial images 81-100. Tiny pulmonary emboli seen to basal segments of the left lower lobe. Normal thoracic aorta and visualized great vessels. There is no demonstrated aortic dissection. Normal heart and pericardium. Normal lung volumes. Small left pleural effusion with adjacent compressive atelectasis of the left lower lobe. Scattered areas of pulmonary opacities in the mid and lower lung perez bilaterally most consistent with areas of subsegmental atelectasis, slight pulmonary edema, or less likely mild inflammatory infiltrates. Severe diffuse demineralization. Diffuse degenerative changes. Severe compression fracture of T11 of indeterminate age. Normal visualized upper abdomen. CT/CTA Chest W/WO Contrast IMPRESSION: Several bilateral segmental pulmonary emboli. Small left pleural effusion. Patchy areas of bilateral atelectasis and/or infiltrate. Electronically Signed: Jarvis Castellano MD at 19:42 EST , Service support ,
== END ==
PROVIDERS: Family Provider Family Medicine; PCP Family Medicine; Referring Provider Family Medicine Geriatric Medicine; Visit Provider Family Medicine Geriatric Medicine
DX: I26.99 Other pulmonary embolism without acute cor pulmonale (principal)
CPT/HCPCS: 71275; Q9967; A4216